=== PATIENT | male | born 1935 | race Caucasian/White ===

== ENCOUNTER → 2017-07-04 16:43 | Outpatient (CLI) | payer MEDICARE, OTHER, SELFPAY ==
--- NOTE | 2017-07-04 16:47 | CT_ITS ---
STUDY: CT LUMBAR SPINE WITHOUT CONTRAST REASON FOR EXAM: Male, 81 years old. Incontinence of urine and stool. RADIATION DOSAGE (If Supplied By Facility): CTDIvol = ( 16.10 ) mGy, DLP = ( 384.53 ) mGycm TECHNIQUE: The patient was scanned in a multi detector CT scanner. High resolution transaxial imaging was performed. Images were obtained from T11-12 to past 2. Sagittal and coronal images were reconstructed. Individualized dose optimization techniques were used for this CT. COMPARISON: CT lumbar spine March 08, 2017. FINDINGS: Again seen is resection of the L4 spinous process as well as laminectomies at L5 and S1. Also again seen is prior left-sided posterior lumbosacral fusion with transpedicular screws connected by a longitudinal metal phoebe. Normal lumbar lordosis. There is a 28 degree levoscoliosis centered at L4-5. Incidental note of stable osseous fusion between the left side of the T12 and L1 vertebrae. No acute fracture of the vertebrae of the lumbar spine. Stable lobulated, thinly corticated, internally septated 2.6 x 3.65 x 2.1 cm cystic lesion in the posterior medial right ilium. There are degenerative arthroses of the bilateral sacroiliac joints L1-2: Circumferential endplate osteophytes, most prominent to the left and posteriorly. Focal invagination of the central superior L2 endplate consistent with benign Schmorl's node(s). Severe disc height narrowing with vacuum phenomenon. Degenerative arthroses of the bilateral facet joints with moderately severe joint space narrowing and anterior periarticular spurring. Moderate osseous narrowing of the central canal and bilateral lateral recesses. [id number] osseous narrowing of the bilateral intervertebral neural foramina, greater on the left. L2-3: Circumferential endplate osteophytes. Severe disc height narrowing with multifocal osseous fusion of the vertebral endplates. There is hypertrophic osseous fusion of the bilateral facet joints. Moderate osseous narrowing of the central canal and bilateral lateral recesses. Mild osseous narrowing of the left intervertebral neural foramen. L3-4: Circumferential endplate osteophytes, most prominent to the right and posteriorly. Severe disc height narrowing with vacuum phenomenon. Degenerative arthroses of the bilateral facet joints with moderately severe joint space narrowing. Hypertrophic periarticular spurring is greater on the right. Moderate osseous narrowing of the central canal and bilateral lateral recesses. Moderate to moderately severe osseous narrowing of the bilateral intervertebral neural foramina. L4-5: Circumferential endplate osteophytes, most prominent to the right and posteriorly. Severe disc height narrowing with vacuum phenomenon. Degenerative arthroses of the bilateral facet joints with moderately severe joint space narrowing. Hypertrophic periarticular spurring is greater on the right, while there is partial osseous fusion on the left. Moderate osseous narrowing of the central canal and bilateral lateral recesses. Moderate osseous narrowing of the bilateral intervertebral neural foramina. L5-S1: Osseous fusion across the vertebral endplates, as well as mild circumferential spurring. Severe degenerative arthrosis of the right facet joint with hypertrophic periarticular spurring. There is osseous fusion of the left facet complex. There is stable grade 1-2 anterolisthesis of L5 on S1. Moderate osseous narrowing of the central canal and bilateral lateral recesses. Moderate osseous narrowing of the bilateral intervertebral neural foramina. Normal visualized paraspinous soft tissue structures. There are atherosclerotic calcifications of the abdominal aorta and iliac arteries. CT/Spine Lumbar without Contrast IMPRESSION: 1. Stable multilevel degenerative changes, as described above. 2. Prior resection of the L4 spinous process as well as L5 and S1 laminectomies. Prior left-sided posterior lumbosacral fusion with metal hardware. There is osseous fusion at L5-S1 with stable grade 1-2 spondylolisthesis. Mid lumbar levoscoliosis also unchanged. 3. Aortoiliac atherosclerotic calcification. Electronically Signed: Abhijit Reid MD at 14:26 EDT , Service support ,
--- NOTE | 2017-07-04 16:47 | CT_ITS ---
STUDY: CT THORACIC SPINE WITHOUT CONTRAST REASON FOR EXAM: Male, 81 years old. Incontinence of urine and stool. RADIATION DOSAGE (If Supplied By Facility): CTDIvol = ( 18.42 ) mGy, DLP = ( 746.98 ) mGycm TECHNIQUE: The patient was scanned in a multi detector CT scanner. High resolution imaging was performed. Images were obtained from C7 to L2. Sagittal and coronal images were reconstructed. Individualized dose optimization techniques were used for this CT. COMPARISON: None. FINDINGS: None visualized cervical spine. There is a mildly increased kyphosis of the thoracic spine. There is a 6-7 degree levoscoliosis centered at T10. There is spotty demineralization of the thoracic vertebrae and endplates. There is multilevel endplate spondylosis of the thoracic spine. There are degenerative changes at various facet articulations of the mid to lower thoracic spine. 1 cm rounded lesion with internal trabeculae and gas lucencies in the left anterior T11 vertebra may be a complex Schmorl's node. Other focal endplate invaginations consistent with benign Schmorl's node seen T6-T10. There is multilevel degenerative disc disease with loss of the disc space heights. There is mild anterior wedging of the T8 vertebra. There is an osseous fusion between the left T12 and L1 vertebra. Incidental note of atherosclerotic calcification and tortuosity of the descending thoracic aorta. CT/Spine Thoracic without Contras IMPRESSION: 1. Diffuse degenerative changes and spotty demineralization of the thoracic spine, as described. 2. Mild anterior wedging of the T8 vertebra has no associated paraspinal soft tissue swelling, suggesting this is old. There is also chronic osseous fusion between the left margins of the T12 and L1 vertebra. Electronically Signed: Abhijit Reid MD at 13:55 EDT , Service support ,
== END ==
PROVIDERS: Family Provider Family Medicine; PCP Family Medicine; Visit Provider Nurse Practitioner Acute Care
DX: R15.9 Full incontinence of feces (principal); R39.81 Functional urinary incontinence
CPT/HCPCS: 72128; 72131

== ENCOUNTER → 2017-08-21 12:55 | Outpatient (CLI) | payer MEDICARE, OTHER, SELFPAY ==
--- NOTE | 2017-08-23 11:39 | LEAS ---
Arterial Study - Arterial Study Arterial Study: Date of scan 08/21/[address] Rose History: Hypertension hyperlipidemia history of stent in the right lower extremity Interpretation: Right lower extremity with some decrease flow at the low thigh further decreased down into the calf ankle and out through the digits ABIs taken that show monophasic flow at the ankle with an RALPH 0.67 of the posterior tibial 0.6 for the dorsalis pedis with the digit brachial index 0.23 next Left lower extremity with again some decreased flow noted from the thigh down to the calf ankle out through the digits duplex shows biphasic flow both vessels at the ankle with an RALPH 0.78 a posterior tib 0.77 the dorsalis pedis. With the digit brachial index 0.48. Impression: 1. Moderate arterial occlusive disease with an RALPH 0.67 and monophasic flow noted. Evidence of small vessel disease with the digit brachial index 0.23 2. Left lower extremity with mild arterial occlusive disease with biphasic flow noted and RALPH 0.78. Mild small vessel disease with the digit brachial index 0.48
== END ==
PROVIDERS: Family Provider Family Medicine; PCP Family Medicine; Visit Provider Surgery Vascular Surgery
DX: I70.213 Atherosclerosis of native arteries of extremities with intermittent claudication, bilateral legs (principal); E78.00 Pure hypercholesterolemia, unspecified; I10 Essential (primary) hypertension; I25.10 Atherosclerotic heart disease of native coronary artery without angina pectoris; M19.90 Unspecified osteoarthritis, unspecified site; Z85.828 Personal history of other malignant neoplasm of skin
CPT/HCPCS: 93923

== ENCOUNTER → 2017-08-31 10:04 | Outpatient (CLI) | payer MEDICARE, OTHER, SELFPAY ==
[2017-08-31 12:08] LABS: Hematocrit 37.2 % (40-54); Hemoglobin 12.4 g/dl (13.0-16.5); Mean Corp Hgb Conc 33.3 g/gl (32-36); Mean Corpuscular Hgb 32.1 pg (27.0-32.0); Mean Corpuscular Volume 96.4 fL (80-94); Mean Platelet Vol. 9.1 fl (6.2-12.0); Platelet Count 328 K/mm3 (150-450); RBC Distribution Width CV 13.9 % (11.6-14.6); RBC Distribution Width SD 47.4 fl (35.1-43.9); Red Blood Count 3.86 M/mm3 (4.6-6.2); White Blood Count 5.9 K/mm3 (4.4-11.0)
[2017-08-31 12:16] LABS: PSA,Total- Diagnostic 0.34 ng/mL (0.0-4.0)
[2017-08-31 12:17] LABS: Scan Indicated on CBC? Y/N NO
[2017-08-31 12:22] LABS: AST(SGOT) 28 U/L (15-37); Alanine Aminotransfer ALT/SGPT 30 U/L (16-61); Albumin, Serum 3.4 g/dL (3.2-5.0); Alkaline Phosphatase 88 U/L (45-117); Anion Gap 7 (5-15); BUN 40 mg/dL (7-18); BUN/Creat Ratio 41.2 RATIO (10-20); Bilirubin, Direct 0.07 mg/dL (0.00-0.30); Calcium,Total 9.3 mg/dL (8.5-10.1); Chloride 100 mmol/L (98-107); Cholesterol 122 mg/dL (200); Creatinine, Serum 0.97 mg/dL (0.70-1.30); EST Glomerular Filtration Rate 79 mL/min (>60); Est Glom Filt Rate - Afr Amer 95 mL/min (>60); Globulin 3.8 g/dL (2.2-4.2); Glucose 84 mg/dL (74-106); High Density Lipoprotein 48 mg/dL; Potassium 3.5 mmol/L (3.5-5.1); Protein, Total 7.2 g/dL (6.4-8.2); Sodium Level 141 mmol/L (136-145); Triglycerides 91 mg/dL; Very Low Density Lipoprotein 18 mg/dL (5-40)
== END ==
PROVIDERS: Internal Medicine Cardiovascular Disease; Family Provider Family Medicine; PCP Family Medicine; Visit Provider Family Medicine
DX: I10 Essential (primary) hypertension (principal); C61 Malignant neoplasm of prostate; E78.00 Pure hypercholesterolemia, unspecified; I25.10 Atherosclerotic heart disease of native coronary artery without angina pectoris
CPT/HCPCS: 36415; 80048; 80061; 80076; 84153; 85027

== ENCOUNTER → 2017-10-06 12:20 | Outpatient (CLI) | payer MEDICARE, OTHER, SELFPAY ==
--- NOTE | 2017-10-06 12:40 | RAD_ITS ---
STUDY: X-RAY - RIGHT FOOT CLINICAL: Male, 82 years old. Heel ulceration. TECHNIQUE: 3 view(s) of the foot. COMPARISON: None. FINDINGS: There is demineralization of the rear and midfoot bones. Normal visualized subtalar, talonavicular, calcaneocuboid, tarsal and tarsometatarsal articulations. There is demineralization of the metatarsi. There is degenerative arthrosis of the metatarsophalangeal joint of the hallux . Normal tibial and fibular sesamoid bones. Normal interphalangeal joint of the great toe. Normal phalanges of the great toe. Normal second through fifth metatarsophalangeal joints. Normal interphalangeal joints and phalanges of the lesser toes. Soft tissue swelling. RAD/Foot min 3 Views IMPRESSION: Diffuse soft tissue swelling. Electronically Signed: Rito Lugo MD at 13:07 EDT Tel [phone], Service support ,
[2017-10-06 13:53] LABS: Erythrocyte Sedimentation Rate 27 mm/hr (0-20)
[2017-10-06 13:55] LABS: Hematocrit 36.8 % (40-54); Hemoglobin 12.1 g/dl (13.0-16.5); Mean Corp Hgb Conc 32.9 g/gl (32-36); Mean Corpuscular Hgb 31.6 pg (27.0-32.0); Mean Corpuscular Volume 96.1 fL (80-94); Mean Platelet Vol. 8.8 fl (6.2-12.0); Platelet Count 317 K/mm3 (150-450); RBC Distribution Width CV 14.6 % (11.6-14.6); Red Blood Count 3.83 M/mm3 (4.6-6.2); White Blood Count 5.2 K/mm3 (4.4-11.0)
[2017-10-06 13:56] LABS: Scan Indicated on CBC? Y/N NO
[2017-10-06 14:19] LABS: AST(SGOT) 29 U/L (15-37); Alanine Aminotransfer ALT/SGPT 29 U/L (16-61); Albumin, Serum 3.7 g/dL (3.2-5.0); Alkaline Phosphatase 78 U/L (45-117); Anion Gap 7 (5-15); BUN 25 mg/dL (7-18); BUN/Creat Ratio 22.9 RATIO (10-20); Calcium,Total 9.1 mg/dL (8.5-10.1); Chloride 98 mmol/L (98-107); Creatinine, Serum 1.09 mg/dL (0.70-1.30); EST Glomerular Filtration Rate 69 mL/min (>60); Est Glom Filt Rate - Afr Amer 83 mL/min (>60); Globulin 3.6 g/dL (2.2-4.2); Glucose 83 mg/dL (74-106); Potassium 3.5 mmol/L (3.5-5.1); Prealbumin 30.9 mg/dL (20.0-40.0); Protein, Total 7.3 g/dL (6.4-8.2); Sodium Level 141 mmol/L (136-145)
== END ==
PROVIDERS: Family Provider Family Medicine; PCP Family Medicine; Visit Provider Nurse Practitioner Family
DX: L97.419 Non-pressure chronic ulcer of right heel and midfoot with unspecified severity (principal); M79.671 Pain in right foot
CPT/HCPCS: 36415; 73630; 80053; 84134; 85027; 85652

== ENCOUNTER 2017-10-12 16:30 | Outpatient (RCR) | payer MEDICARE, OTHER, SELFPAY ==
[2017-10-05 16:47] VITALS: BP 148/88; PULSE 64; RESP 18; TEMP 36.2; BMI 21.0
--- NOTE | 2017-10-05 20:12 | PCM.WC.HP ---
(1) Chronic pain of right heel Status: Acute Code(s): M79.671 - Pain in right foot; G89.29 - Other chronic pain (2) Ulcer of right heel Status: Acute Code(s): L97.419 - Non-pressure chronic ulcer of right heel and midfoot with unspecified severity (3) Atherosclerotic heart disease of [place] coronary artery without angina pectoris Status: Chronic Qualifiers: Code(s): I25.10 - Atherosclerotic heart disease of [place] coronary artery without angina pectoris Comment: PTCA/Stent to mid RCA 08/06/04; cutting balloon angioplasty with TAMERA to mid RCA 02/19; PTCA/Stent of focal instent stenosis of RCA 06/18/09; PCI/TAMERA to Ostial PDA and PTCA/Stent of instent restenosis RCA 09/03/13; PAINTER AIRBRUSH/TAMERA Instent restenosis of mid RCA 10/07/15; FFR mid LAD @ [facility] 10/08/15 (4) GERD (gastroesophageal reflux disease) Status: Chronic Code(s): K21.9 - Gastro-esophageal reflux disease without esophagitis (5) Hyperlipidemia Status: Chronic Qualifiers: Code(s): E78.5 - Hyperlipidemia, unspecified (6) Hypertension Status: Chronic Qualifiers: Code(s): I10 - Essential (primary) hypertension (7) Peripheral vascular disease Status: Chronic Code(s): I73.9 - Peripheral vascular disease, unspecified History of Present Illness Date of Service: 10/05/17 Chief Complaint: Right heel pain on and off ?2 years with increasing pain and ulceration over the past 2 months History of Wound: This is an 82-year-old white male who presents to the wound healing center today with complaints of worsening right heel pain and a superficial ulceration on the right heel with surrounding redness and excoriation. He has a past medical history which is significant for that of PVD, PAD, CAD, hypertension, GERD, and hyperlipidemia. He has in the past undergone angioplasty of the right lower extremity by Dr. Rose. A most recent RALPH was done on 08/23/2017 and demonstrated right RALPH of 0.67 and left RALPH of 0.78. The patient states that he has had ongoing right heel pain for 1-2 years and wears orthotic shoes. He states that his orthotics are approximately 2 years old as well. He states that he has been seen podiatry who referred him to the wound healing center as he now has a superficial ulceration on his right heel with surrounding redness and occasional bleeding. He states that the pain is a intermittent sharp pain. He does state that he has been seen by orthopedics and podiatry in the past and was told that he has a heel spur as well, however it was felt that this was not the root cause of his pain. He denies any purulent drainage in his wound treatments so far have consisted of applying Vaseline daily. The patient otherwise denies any fever, chills, nausea, vomiting, shortness of breath, chest pain or pressure, palpitations, orthopnea, lower extremity edema, syncope or presyncopal episodes. 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 Zapata; Stent to distal RSFA to popliteal, Stent Rt. Proximal SFA 10/23/13 Atherosclerotic heart disease of [place] coronary artery without angina pectoris (Chronic) PTCA/Stent to mid RCA 08/06/04; cutting balloon angioplasty with TAMERA to mid RCA 02/19; PTCA/Stent of focal instent stenosis of RCA 06/18/09; PCI/TAMERA to Ostial PDA and PTCA/Stent of instent restenosis RCA 09/03/13; PAINTER AIRBRUSH/TAMERA Instent restenosis of mid RCA 10/07/15; FFR mid LAD @ [facility] 10/08/15 GERD (gastroesophageal reflux disease) (Chronic) Hypertension (Chronic) Hyperlipidemia (Chronic) Obstructive sleep apnea (Chronic) Peripheral vascular disease (Chronic) Surgical History: -, rotator cuff repair, tonsillectomy, - Allergies/Adverse Reactions: Allergies carisoprodol Allergy (Verified 10/05/17 17:13) Other itraconazole Allergy (Verified 10/05/17 17:13) Other Home Medications: Ambulatory Orders Medication Instructions Recorded Clopidogrel Bisulfate [Plavix] 75 mg PO DAILY 01/14/13 Multivit-Min/FA/Lycopene/Lut 1 tab PO DAILY 01/14/13 [Centrum Silver Tablet] Nitroglycerin [Nitrostat] 0.4 mg SUBLINGUAL Q5M PRN 01/14/13 Omeprazole [Prilosec] 20 mg PO DAILY 10/07/15 Aspirin E.C. [Ecotrin] 81 mg PO DAILY@0800 03/08/17 Furosemide [Furosemide] 40 mg PO DAILY 03/08/17 Naproxen 375 mg PO BID PRN 03/08/17 Vitamin E 400 unit PO DAILY 03/08/17 metoprolol succinate ER 25 mg 12.5 mg PO QDAY #45 tab 06/15/17 tablet,extended release 24 hr atorvastatin 20 mg tablet 20 mg PO QDAY 08/01/17 acetaminophen 500 mg tablet 500 mg PO BID PRN 08/03/17 lisinopril 10 mg tablet 10 mg PO QDAY #90 tab 08/03/17 mirabegron ER 50 mg 50 mg PO QDAY 08/03/17 tablet,extended release 24 hr Ferrous Gluconate 325 10/05/17 Smoking Status: Never smoker Review of Systems Constitutional: Denies: Chills, Fever, Weight Change Eyes: Denies: Pain, Vision Change HEENT: Denies: Difficulty Hearing, Difficulty Swallowing, Sinus Congestion Cardiovascular: Denies: Chest Pain, Palpitations Respiratory: Denies: Cough, Shortness of Breath Gastrointestinal: Denies: Diarrhea, Nausea, Vomiting Genitourinary: Denies: Dysuria, Hematuria Skin: Reports: Wounds - See HPI Endocrine: Denies: Heat/ Cold Intolerance, Polydipsia, Polyuria Hematologic/ Lymphatic: Denies: Easy Bruising, Easy Bleeding - Physical Exam Vital Signs Temp Pulse Resp BP 97.1 F L 64 18 148/88 H 10/05/17 16:47 10/05/17 16:47 10/05/17 16:47 10/05/17 16:47 General: Alert, Oriented x3, Cooperative, No apparent distress HEENT: Atraumatic Neck: Supple Lungs: Clear to auscultation, Normal air movement Cardiovascular: Regular rate, Regular Rhythm Extremities: No clubbing, No cyanosis, Diminished Peripheral Pulses, Edema - Generalized bilateral lower extremity edema Skin: Ulcer/ Wound - Right heel very small superficial ulceration with surrounding excoriation and redness, tender to touch, no purulent drainage noted. No signs of acute infection at this time. Musculoskeletal: No Tenderness to Palpation of Joints or Extremities - With the exception of right heel Neurological: Neuro grossly intact Psych/Mental Status: Normal Affect, Alert and oriented to time, place, person, mood and affect Debridement Note Post-Debridement Measurements/Treatment WC - Nurse 2 - General Ulcer CM Notes Start: 10/05/17 16:42 Freq: Status: Active Protocol: Activity Type Activity Date Activity User E-Sign Co-Sign Detail Recorded Client Recorded Date Recorded By Document 10/05/17 17:36 [id number] 10/05/17 17:53 10/05/17 17:36 Wound Center Nurse 2 #5 R Heel -Time 17:40 -Correct Patient Yes -Correct Side, Site, Position Yes -Correct Procedure Yes -Procedure Performed Yes -Type of Procedure Debridement -Clinical Debridement Subcutaneous -Post Debridement Size (cm) - Length 0.3 -Post Debridement Size (cm) - Width 0.3 -Post Debridement Size (cm) - Depth 0.1 -Total Square Cm 0.09 -Wound/Ulcer Outcome Not Healed -Ulcer Cleansing Rinsed/ Irrigated with Saline -Foul Odor after Cleansing No -Bioengineered Tissue No -Bleeding Controlled with NA -Treatment Response Procedure Tolerated Well Pain Scale: 0-10 Numeric Is Patient Pain Free? Yes Wound debrided: Right heel ulcer Type of Debridement: Excisional debridement Anesthesia Used: 5% Lidocaine Gel Depth: in the subcutaneous layer Percentage of wound debrided: 100 Instrument Used: 3mm curette Tissue Removed: Small amount of slough Severity: Fat Layer Exposed Amount of bleeding with debridement: Mild Bleeding Controlled with: Pressure Patient tolerated procedure well Assessment/Plan Assessment: See above diagnoses Plan: The patient was seen and examined at the wound center today and was updated on the plan of care. A subcutaneous debridement was performed today. The patient tolerated the procedure well. The patients wound care will consist of: Applying Aquacel silver and optifoam daily for offloading. Wound cultures were collected. Due to the increase in pain a x-ray of the right heel was ordered. Vascular studies reviewed from August 2017 and demonstrated right RALPH of 0.67 and left RALPH of 0.78. Patient educated on the importance of offloading and instructed to float the heels when laying in bed. Do not feel that this is pressure related at this time as patient does not have mobility issues. However, patient does wear orthotic inserts and issues and these are over 2 years old, instructed to follow-up with podiatry to consider new orthotic insoles as they are very worn down. Patient educated on the importance of diet on wound healing and instructed to increase protein and vitamin C intake. Patient verbalized understanding. Patient will follow up at wound healing center in one week or sooner if needed. This note was generated with HeadCount dictation software. It may contain incorrect words, spelling, and punctuation that were not noted in checking the note before signing. Code Visit Office Visits / Consults: [id number] OV L4 Est [id number]: [id number] Luz subq tissue 20 sq cm/<
--- NOTE | 2017-10-10 09:23 | HP.PCM_ITS ---
(1) Chronic pain of right heel Status: Acute Code(s): M79.671 - Pain in right foot; G89.29 - Other chronic pain (2) Ulcer of right heel Status: Acute Code(s): L97.419 - Non-pressure chronic ulcer of right heel and midfoot with unspecified severity (3) Atherosclerotic heart disease of [place] coronary artery without angina pectoris Status: Chronic Qualifiers: Code(s): I25.10 - Atherosclerotic heart disease of [place] coronary artery without angina pectoris Comment: PTCA/Stent to mid RCA 08/06/04; cutting balloon angioplasty with TAMERA to mid RCA 02/19; PTCA/Stent of focal instent stenosis of RCA 06/18/09; PCI/TAMERA to Ostial PDA and PTCA/Stent of instent restenosis RCA 09/03/13; [facility]/TAMERA Instent restenosis of mid RCA 10/07/15; FFR mid LAD @ [facility] 10/08/15 (4) GERD (gastroesophageal reflux disease) Status: Chronic Code(s): K21.9 - Gastro-esophageal reflux disease without esophagitis (5) Hyperlipidemia Status: Chronic Qualifiers: Code(s): E78.5 - Hyperlipidemia, unspecified (6) Hypertension Status: Chronic Qualifiers: Code(s): I10 - Essential (primary) hypertension (7) Peripheral vascular disease Status: Chronic Code(s): I73.9 - Peripheral vascular disease, unspecified History of Present Illness Date of Service: 10/05/17 Chief Complaint: Right heel pain on and off ?2 years with increasing pain and ulceration over the past 2 months History of Wound: This is an 82-year-old white male who presents to the wound healing center today with complaints of worsening right heel pain and a superficial ulceration on the right heel with surrounding redness and excoriation. He has a past medical history which is significant for that of PVD , PAD, CAD, hypertension, GERD, and hyperlipidemia. He has in the past undergone angioplasty of the right lower extremity by Dr. Rose. A most recent RALPH was done on 08/23/2017 and demonstrated right RALPH of 0.67 and left RALPH of 0.78. The patient states that he has had ongoing right heel pain for 1-2 years and wears orthotic shoes. He states that his orthotics are approximately 2 years old as well. He states that he has been seen podiatry who referred him to the wound healing center as he now has a superficial ulceration on his right heel with surrounding redness and occasional bleeding. He states that the pain is a intermittent sharp pain. He does state that he has been seen by orthopedics and podiatry in the past and was told that he has a heel spur as well, however it was felt that this was not the root cause of his pain. He denies any purulent drainage in his wound treatments so far have consisted of applying Vaseline daily. The patient otherwise denies any fever, chills, nausea , vomiting, shortness of breath, chest pain or pressure, palpitations, orthopnea , lower extremity edema, syncope or presyncopal episodes. 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 Zapata; Stent to distal RSFA to popliteal, Stent Rt. Proximal SFA 10/23/13 Atherosclerotic heart disease of [place] coronary artery without angina pectoris (Chronic) PTCA/Stent to mid RCA 08/06/04; cutting balloon angioplasty with TAMERA to mid RCA 02/19; PTCA/Stent of focal instent stenosis of RCA 06/18/09; PCI/TAMERA to Ostial PDA and PTCA/Stent of instent restenosis RCA 09/03/13; [facility]TER/TAMERA Instent restenosis of mid RCA 10/07/15; FFR mid LAD @ [facility] 10/08/15 GERD (gastroesophageal reflux disease) (Chronic) Hypertension (Chronic) Hyperlipidemia (Chronic) Obstructive sleep apnea (Chronic) Peripheral vascular disease (Chronic) Surgical History: -, rotator cuff repair, tonsillectomy, - Allergies/Adverse Reactions: Allergies carisoprodol Allergy (Verified 10/05/17 17:13) Other itraconazole Allergy (Verified 10/05/17 17:13) Other Home Medications: Ambulatory Orders Medication Instructions Recorded Clopidogrel Bisulfate [Plavix] 75 mg PO DAILY 01/14/13 Multivit-Min/FA/Lycopene/Lut 1 tab PO DAILY 01/14/13 [Centrum Silver Tablet] Nitroglycerin [Nitrostat] 0.4 mg SUBLINGUAL Q5M PRN 01/14/13 Omeprazole [Prilosec] 20 mg PO DAILY 10/07/15 Aspirin E.C. [Ecotrin] 81 mg PO DAILY@0800 03/08/17 Furosemide [Furosemide] 40 mg PO DAILY 03/08/17 Naproxen 375 mg PO BID PRN 03/08/17 Vitamin E 400 unit PO DAILY 03/08/17 metoprolol succinate ER 25 mg 12.5 mg PO QDAY #45 tab 06/15/17 tablet,extended release 24 hr atorvastatin 20 mg tablet 20 mg PO QDAY 08/01/17 acetaminophen 500 mg tablet 500 mg PO BID PRN 08/03/17 lisinopril 10 mg tablet 10 mg PO QDAY #90 tab 08/03/17 mirabegron ER 50 mg 50 mg PO QDAY 08/03/17 tablet,extended release 24 hr Ferrous Gluconate 325 10/05/17 Smoking Status: Never smoker Review of Systems Constitutional: Denies: Chills, Fever, Weight Change Eyes: Denies: Pain, Vision Change HEENT: Denies: Difficulty Hearing, Difficulty Swallowing, Sinus Congestion Cardiovascular: Denies: Chest Pain, Palpitations Respiratory: Denies: Cough, Shortness of Breath Gastrointestinal: Denies: Diarrhea, Nausea, Vomiting Genitourinary: Denies: Dysuria, Hematuria Skin: Reports: Wounds - See HPI Endocrine: Denies: Heat/ Cold Intolerance, Polydipsia, Polyuria Hematologic/ Lymphatic: Denies: Easy Bruising, Easy Bleeding - Physical Exam Vital Signs Temp Pulse Resp BP 97.1 F L 64 18 148/88 H 10/05/17 16:47 10/05/17 16:47 10/05/17 16:47 10/05/17 16:47 General: Alert, Oriented x3, Cooperative, No apparent distress HEENT: Atraumatic Neck: Supple Lungs: Clear to auscultation, Normal air movement Cardiovascular: Regular rate, Regular Rhythm Extremities: No clubbing, No cyanosis, Diminished Peripheral Pulses, Edema - Generalized bilateral lower extremity edema Skin: Ulcer/ Wound - Right heel very small superficial ulceration with surrounding excoriation and redness, tender to touch, no purulent drainage noted. No signs of acute infection at this time. Musculoskeletal: No Tenderness to Palpation of Joints or Extremities - With the exception of right heel Neurological: Neuro grossly intact Psych/Mental Status: Normal Affect, Alert and oriented to time, place, person, mood and affect Debridement Note Post-Debridement Measurements/Treatment WC - Nurse 2 - General Ulcer CM Notes Start: 10/05/17 16:42 Freq: Status: Active Protocol: Activity Type Activity Date Activity User E-Sign Co-Sign Detail Recorded Client Recorded Date Recorded By Document 10/05/17 17:36 [id number] 10/05/17 17:53 10/05/17 17:36 Wound Center Nurse 2 #5 R Heel -Time 17:40 -Correct Patient Yes -Correct Side, Site, Position Yes -Correct Procedure Yes -Procedure Performed Yes -Type of Procedure Debridement -Clinical Debridement Subcutaneous -Post Debridement Size (cm) - Length 0.3 -Post Debridement Size (cm) - Width 0.3 -Post Debridement Size (cm) - Depth 0.1 -Total Square Cm 0.09 -Wound/Ulcer Outcome Not Healed -Ulcer Cleansing Rinsed/ Irrigated with Saline -Foul Odor after Cleansing No -Bioengineered Tissue No -Bleeding Controlled with NA -Treatment Response Procedure Tolerated Well Pain Scale: 0-10 Numeric Is Patient Pain Free? Yes Wound debrided: Right heel ulcer Type of Debridement: Excisional debridement Anesthesia Used: 5% Lidocaine Gel Depth: in the subcutaneous layer Percentage of wound debrided: 100 Instrument Used: 3mm curette Tissue Removed: Small amount of slough Severity: Fat Layer Exposed Amount of bleeding with debridement: Mild Bleeding Controlled with: Pressure Patient tolerated procedure well Assessment/Plan Assessment: See above diagnoses Plan: The patient was seen and examined at the wound center today and was updated on the plan of care. A subcutaneous debridement was performed today. The patient tolerated the procedure well. The patients wound care will consist of: Applying Aquacel silver and optifoam daily for offloading. Wound cultures were collected. Due to the increase in pain a x-ray of the right heel was ordered. Vascular studies reviewed from August 2017 and demonstrated right RALPH of 0.67 and left ARLPH of 0.78. Patient educated on the importance of offloading and instructed to float the heels when laying in bed. Do not feel that this is pressure related at this time as patient does not have mobility issues. However , patient does wear orthotic inserts and issues and these are over 2 years old, instructed to follow-up with podiatry to consider new orthotic insoles as they are very worn down. Patient educated on the importance of diet on wound healing and instructed to increase protein and vitamin C intake. Patient verbalized understanding. Patient will follow up at wound healing center in one week or sooner if needed. This note was generated with [employer] dictation software. It may contain incorrect words, spelling, and punctuation that were not noted in checking the note before signing. Code Visit Office Visits / Consults: [id number] OV L4 Est 111xxx-113xx: [id number] Luz subq tissue 20 sq cm/<
[2017-10-12 16:44] VITALS: BP 125/70; PULSE 60; RESP 16; TEMP 36.2; BMI 21.0
--- NOTE | 2017-10-12 21:17 | PCM.WC.PN ---
(1) Chronic pain of right heel Status: Acute Code(s): M79.671 - Pain in right foot; G89.29 - Other chronic pain (2) Ulcer of right heel Status: Acute Code(s): L97.419 - Non-pressure chronic ulcer of right heel and midfoot with unspecified severity (3) Atherosclerotic heart disease of [place] coronary artery without angina pectoris Status: Chronic Qualifiers: Code(s): I25.10 - Atherosclerotic heart disease of [place] coronary artery without angina pectoris Comment: PTCA/Stent to mid RCA 08/06/04; cutting balloon angioplasty with TAMERA to mid RCA 02/19; PTCA/Stent of focal instent stenosis of RCA 06/18/09; PCI/TAMERA to Ostial PDA and PTCA/Stent of instent restenosis RCA 09/03/13; 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/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 Instent restenosis of mid RCA 10/07/15; FFR mid LAD @ [facility] 10/08/15 (4) GERD (gastroesophageal reflux disease) Status: Chronic Code(s): K21.9 - Gastro-esophageal reflux disease without esophagitis (5) Hyperlipidemia Status: Chronic Qualifiers: Code(s): E78.5 - Hyperlipidemia, unspecified (6) Hypertension Status: Chronic Qualifiers: Code(s): I10 - Essential (primary) hypertension (7) Peripheral vascular disease Status: Chronic Code(s): I73.9 - Peripheral vascular disease, unspecified Type of Wound Date of Service: 10/12/17 Chief Complaint: Right heel pain on and off ?2 years with increasing pain and ulceration over the past 2 months History of Wound: This is an 82-year-old white male who presents to the wound healing center today with complaints of worsening right heel pain and a superficial ulceration on the right heel with surrounding redness and excoriation. He has a past medical history which is significant for that of PVD, PAD, CAD, hypertension, GERD, and hyperlipidemia. He has in the past undergone angioplasty of the right lower extremity by Dr. Rose. A most recent RALPH was done on 08/23/2017 and demonstrated right RALPH of 0.67 and left RALPH of 0.78. The patient states that he has had ongoing right heel pain for 1-2 years and wears orthotic shoes. He states that his orthotics are approximately 2 years old as well. He states that he has been seen podiatry who referred him to the wound healing center as he now has a superficial ulceration on his right heel with surrounding redness and occasional bleeding. He states that the pain is a intermittent sharp pain. He does state that he has been seen by orthopedics and podiatry in the past and was told that he has a heel spur as well, however it was felt that this was not the root cause of his pain. He denies any purulent drainage in his wound treatments so far have consisted of applying Vaseline daily. The patient otherwise denies any fever, chills, nausea, vomiting, shortness of breath, chest pain or pressure, palpitations, orthopnea, lower extremity edema, syncope or presyncopal episodes. Progress of Wound: Pain has improved, wound culture demonstrated yeast, no signs of acute infection at this time. - Physical Exam Vital Signs Temp Pulse Resp BP 97.1 F L 60 16 125/70 H 10/12/17 16:44 10/12/17 16:44 10/12/17 16:44 10/12/17 16:44 General: Alert, Oriented x3, Cooperative, No apparent distress HEENT: Atraumatic Cardiovascular: Regular rate Skin: Ulcer/ Wound - Small superficial ulcer present right heel without signs of infection at this time, surrounding heel no longer as erythematous as previous and only tenderness over the superficial ulcers Neurological: Neuro grossly intact Psych/Mental Status: Normal Affect, Alert and oriented to time, place, person, mood and affect Debridement Note Post-Debridement Measurements/Treatment WC - Nurse 2 - General Ulcer CM Notes Start: 10/05/17 16:42 Freq: Status: Active Protocol: Activity Type Activity Date Activity User E-Sign Co-Sign Detail Recorded Client Recorded Date Recorded By Document 10/05/17 17:36 [id number] 10/05/17 17:53 CS Document 10/12/17 17:27 JS [id number] 10/12/17 18:30 JS 10/05/17 10/12/17 17:36 17:27 Wound Center Nurse 2 #5 R Heel -Time 17:40 17:46 -Correct Patient Yes Yes -Correct Side, Site, Position Yes Yes -Correct Procedure Yes Yes -Procedure Performed Yes Yes -Type of Procedure Debridement Debridement -Clinical Debridement Subcutaneous Subcutaneous -Post Debridement Size (cm) - Length 0.3 0.4 -Post Debridement Size (cm) - Width 0.3 0.4 -Post Debridement Size (cm) - Depth 0.1 0.2 -Total Square Cm 0.09 0.16 -Wound/Ulcer Outcome Not Healed Not Healed -Ulcer Cleansing Rinsed/ Rinsed/ Irrigated with Irrigated with Saline Saline -Foul Odor after Cleansing No -Bioengineered Tissue No -Topical Lidocaine (%) 4 -Lidocaine (ml) 5 -Bleeding Controlled with NA NA -Treatment Response Procedure Tolerated Well Pain Scale: 0-10 Numeric Is Patient Pain Free? Yes Yes Wound debrided: Right heel ulcer Laterality: Right Type of Debridement: Excisional debridement Anesthesia Used: 5% Lidocaine Gel Depth: in the subcutaneous layer Percentage of wound debrided: 100 Instrument Used: 3mm curette Tissue Removed: Slough Severity: Fat Layer Exposed Amount of bleeding with debridement: Mild Bleeding Controlled with: Pressure Patient tolerated procedure well Assessment/Plan Assessment: See above diagnoses Plan: The patient was seen and examined at the wound center today and was updated on the plan of care. A subcutaneous debridement was performed today. The patient tolerated the procedure well. The patients wound care will consist of: Applying nystatin cream and optifoam daily for offloading. Wound cultures were collected previously and demonstrated yeast, consulted pharmacist who recommended against systemic antifungals and advised on topicals due to the nature of the ulcer. Due to the increase in pain a x-ray of the right heel was ordered which was reviewed and within normal limits. Vascular studies reviewed from August 2017 and demonstrated right RALPH of 0.67 and left RALPH of 0.78. Patient educated on the importance of offloading and instructed to float the heels when laying in bed. Do not feel that this is pressure related at this time as patient does not have mobility issues. However, patient does wear orthotic inserts and issues and these are over 2 years old, instructed to follow-up with podiatry to consider new orthotic insoles as they are very worn down. Patient educated on the importance of diet on wound healing and instructed to increase protein and vitamin C intake. Patient verbalized understanding. Patient will follow up at wound healing center in one week or sooner if needed. This note was generated with [employer] software. It may contain incorrect words, spelling, and punctuation that were not noted in checking the note before signing. Code Visit 111xxx-113xx: [id number] Luz subq tissue 20 sq cm/<
--- NOTE | 2017-10-19 13:20 | PN.PCM_ITS ---
(1) Chronic pain of right heel Status: Acute Code(s): M79.671 - Pain in right foot; G89.29 - Other chronic pain (2) Ulcer of right heel Status: Acute Code(s): L97.419 - Non-pressure chronic ulcer of right heel and midfoot with unspecified severity (3) Atherosclerotic heart disease of [place] coronary artery without angina pectoris Status: Chronic Qualifiers: Code(s): I25.10 - Atherosclerotic heart disease of [place] coronary artery without angina pectoris Comment: PTCA/Stent to mid RCA 08/06/04; cutting balloon angioplasty with TAMERA to mid RCA 02/19; PTCA/Stent of focal instent stenosis of RCA 06/18/09; PCI/TAMERA to Ostial PDA and PTCA/Stent of instent restenosis RCA 09/03/13; [employer] MEMBER/TAMERA Instent restenosis of mid RCA 10/07/15; FFR mid LAD @ [facility] 10/08/15 (4) GERD (gastroesophageal reflux disease) Status: Chronic Code(s): K21.9 - Gastro-esophageal reflux disease without esophagitis (5) Hyperlipidemia Status: Chronic Qualifiers: Code(s): E78.5 - Hyperlipidemia, unspecified (6) Hypertension Status: Chronic Qualifiers: Code(s): I10 - Essential (primary) hypertension (7) Peripheral vascular disease Status: Chronic Code(s): I73.9 - Peripheral vascular disease, unspecified Type of Wound Date of Service: 10/12/17 Chief Complaint: Right heel pain on and off ?2 years with increasing pain and ulceration over the past 2 months History of Wound: This is an 82-year-old white male who presents to the wound healing center today with complaints of worsening right heel pain and a superficial ulceration on the right heel with surrounding redness and excoriation. He has a past medical history which is significant for that of PVD , PAD, CAD, hypertension, GERD, and hyperlipidemia. He has in the past undergone angioplasty of the right lower extremity by Dr. Rose. A most recent RALPH was done on 08/23/2017 and demonstrated right RALPH of 0.67 and left RALPH of 0.78. The patient states that he has had ongoing right heel pain for 1-2 years and wears orthotic shoes. He states that his orthotics are approximately 2 years old as well. He states that he has been seen podiatry who referred him to the wound healing center as he now has a superficial ulceration on his right heel with surrounding redness and occasional bleeding. He states that the pain is a intermittent sharp pain. He does state that he has been seen by orthopedics and podiatry in the past and was told that he has a heel spur as well, however it was felt that this was not the root cause of his pain. He denies any purulent drainage in his wound treatments so far have consisted of applying Vaseline daily. The patient otherwise denies any fever, chills, nausea , vomiting, shortness of breath, chest pain or pressure, palpitations, orthopnea , lower extremity edema, syncope or presyncopal episodes. Progress of Wound: Pain has improved, wound culture demonstrated yeast, no signs of acute infection at this time. - Physical Exam Vital Signs Temp Pulse Resp BP 97.1 F L 60 16 125/70 H 10/12/17 16:44 10/12/17 16:44 10/12/17 16:44 10/12/17 16:44 General: Alert, Oriented x3, Cooperative, No apparent distress HEENT: Atraumatic Cardiovascular: Regular rate Skin: Ulcer/ Wound - Small superficial ulcer present right heel without signs of infection at this time, surrounding heel no longer as erythematous as previous and only tenderness over the superficial ulcers Neurological: Neuro grossly intact Psych/Mental Status: Normal Affect, Alert and oriented to time, place, person, mood and affect Debridement Note Post-Debridement Measurements/Treatment WC - Nurse 2 - General Ulcer CM Notes Start: 10/05/17 16:42 Freq: Status: Active Protocol: Activity Type Activity Date Activity User E-Sign Co-Sign Detail Recorded Client Recorded Date Recorded By Document 10/05/17 17:36 [id number] 10/05/17 17:53 CS Document 10/12/17 17:27 JS [id number] 10/12/17 18:30 JS 10/05/17 10/12/17 17:36 17:27 Wound Center Nurse 2 #5 R Heel -Time 17:40 17:46 -Correct Patient Yes Yes -Correct Side, Site, Position Yes Yes -Correct Procedure Yes Yes -Procedure Performed Yes Yes -Type of Procedure Debridement Debridement -Clinical Debridement Subcutaneous Subcutaneous -Post Debridement Size (cm) - Length 0.3 0.4 -Post Debridement Size (cm) - Width 0.3 0.4 -Post Debridement Size (cm) - Depth 0.1 0.2 -Total Square Cm 0.09 0.16 -Wound/Ulcer Outcome Not Healed Not Healed -Ulcer Cleansing Rinsed/ Rinsed/ Irrigated with Irrigated with Saline Saline -Foul Odor after Cleansing No -Bioengineered Tissue No -Topical Lidocaine (%) 4 -Lidocaine (ml) 5 -Bleeding Controlled with NA NA -Treatment Response Procedure Tolerated Well Pain Scale: 0-10 Numeric Is Patient Pain Free? Yes Yes Wound debrided: Right heel ulcer Laterality: Right Type of Debridement: Excisional debridement Anesthesia Used: 5% Lidocaine Gel Depth: in the subcutaneous layer Percentage of wound debrided: 100 Instrument Used: 3mm curette Tissue Removed: Slough Severity: Fat Layer Exposed Amount of bleeding with debridement: Mild Bleeding Controlled with: Pressure Patient tolerated procedure well Assessment/Plan Assessment: See above diagnoses Plan: The patient was seen and examined at the wound center today and was updated on the plan of care. A subcutaneous debridement was performed today. The patient tolerated the procedure well. The patients wound care will consist of: Applying nystatin cream and optifoam daily for offloading. Wound cultures were collected previously and demonstrated yeast, consulted pharmacist who recommended against systemic antifungals and advised on topicals due to the nature of the ulcer. Due to the increase in pain a x-ray of the right heel was ordered which was reviewed and within normal limits. Vascular studies reviewed from August 2017 and demonstrated right RALPH of 0.67 and left RALPH of 0.78. Patient educated on the importance of offloading and instructed to float the heels when laying in bed. Do not feel that this is pressure related at this time as patient does not have mobility issues. However, patient does wear orthotic inserts and issues and these are over 2 years old, instructed to follow-up with podiatry to consider new orthotic insoles as they are very worn down. Patient educated on the importance of diet on wound healing and instructed to increase protein and vitamin C intake. Patient verbalized understanding. Patient will follow up at wound healing center in one week or sooner if needed. This note was generated with [employer] software. It may contain incorrect words, spelling, and punctuation that were not noted in checking the note before signing. Code Visit 111xxx-113xx: [id number] Luz subq tissue 20 sq cm/<
== END 2017-10-14 23:59 ==
LOC: WC 16:30
PROVIDERS: Family Provider Family Medicine; PCP Family Medicine; Visit Provider Nurse Practitioner Family
DX: I73.9 Peripheral vascular disease, unspecified (principal); I10 Essential (primary) hypertension; E78.5 Hyperlipidemia, unspecified; I25.10 Atherosclerotic heart disease of native coronary artery without angina pectoris; K21.9 Gastro-esophageal reflux disease without esophagitis; L97.412 Non-pressure chronic ulcer of right heel and midfoot with fat layer exposed
CPT/HCPCS: 11042; 87070; 87075; 87077; 87205; 99213; G0463

== ENCOUNTER 2017-11-09 16:30 | Outpatient (RCR) | payer MEDICARE, OTHER, SELFPAY ==
[2017-10-15 01:15] VITALS: BP 125/70; PULSE 60; RESP 16; TEMP 36.2
[2017-10-19 16:43] VITALS: BP 110/62; PULSE 70; RESP 16; TEMP 35.9
--- NOTE | 2017-10-24 11:29 | PCM.WC.PN ---
(1) Ulcer of right heel Status: Acute Code(s): L97.419 - Non-pressure chronic ulcer of right heel and midfoot with unspecified severity (2) Chronic pain of right heel Status: Acute Code(s): M79.671 - Pain in right foot; G89.29 - Other chronic pain (3) Hyperlipidemia Status: Chronic Qualifiers: Code(s): E78.5 - Hyperlipidemia, unspecified (4) Hypertension Status: Chronic Qualifiers: Code(s): I10 - Essential (primary) hypertension (5) Peripheral vascular disease Status: Chronic Code(s): I73.9 - Peripheral vascular disease, unspecified (6) Yeast dermatitis Status: Acute Code(s): B37.2 - Candidiasis of skin and nail Type of Wound Date of Service: 10/19/17 Chief Complaint: Right heel pain on and off ?2 years with increasing pain and ulceration over the past 2 months History of Wound: This is an 82-year-old white male who presents to the wound healing center today with complaints of worsening right heel pain and a superficial ulceration on the right heel with surrounding redness and excoriation. He has a past medical history which is significant for that of PVD, PAD, CAD, hypertension, GERD, and hyperlipidemia. He has in the past undergone angioplasty of the right lower extremity by Dr. Rose. A most recent RALPH was done on 08/23/2017 and demonstrated right RALPH of 0.67 and left RALPH of 0.78. The patient states that he has had ongoing right heel pain for 1-2 years and wears orthotic shoes. He states that his orthotics are approximately 2 years old as well. He states that he has been seen podiatry who referred him to the wound healing center as he now has a superficial ulceration on his right heel with surrounding redness and occasional bleeding. He states that the pain is a intermittent sharp pain. He does state that he has been seen by orthopedics and podiatry in the past and was told that he has a heel spur as well, however it was felt that this was not the root cause of his pain. He denies any purulent drainage in his wound treatments so far have consisted of applying Vaseline daily. The patient otherwise denies any fever, chills, nausea, vomiting, shortness of breath, chest pain or pressure, palpitations, orthopnea, lower extremity edema, syncope or presyncopal episodes. Progress of Wound: stable, improvment in pain surround ulcer, currently only has pain at site of ulcer or right heel. No signs of systemic infection - Physical Exam Vital Signs Temp Pulse Resp BP 96.6 F L 70 16 110/62 10/19/17 16:43 10/19/17 16:43 10/19/17 16:43 10/19/17 16:43 General: Alert, Oriented x3, Cooperative, No apparent distress HEENT: Atraumatic Cardiovascular: Regular rate Extremities: Edema - generalized BLLE edema Skin: Ulcer/ Wound - small luperficial ulcer with adherent wayne right heel, skin surrounding heel is no longer red Neurological: Neuro grossly intact Psych/Mental Status: Normal Affect, Appropriate, Alert and oriented to time, place, person, mood and affect Debridement Note Post-Debridement Measurements/Treatment WC - Nurse 2 - General Ulcer CM Notes Start: 10/19/17 16:42 Freq: Status: Active Protocol: Activity Type Activity Date Activity User E-Sign Co-Sign Detail Recorded Client Recorded Date Recorded By Document 10/19/17 17:01 [id number] 10/19/17 17:04 10/19/17 17:01 Wound Center Nurse 2 #5 R Heel -Time 17:01 -Correct Patient Yes -Correct Side, Site, Position Yes -Correct Procedure Yes -Procedure Performed Yes -Type of Procedure Debridement -Clinical Debridement Subcutaneous -Post Debridement Size (cm) - Length 0.4 -Post Debridement Size (cm) - Width 0.4 -Post Debridement Size (cm) - Depth 0.1 -Total Square Cm 0.16 -Wound/Ulcer Outcome Not Healed -Ulcer Cleansing Rinsed/ Irrigated with Saline -Foul Odor after Cleansing No -Bioengineered Tissue No -Topical Lidocaine (%) 4 -Bleeding Controlled with Pressure -Treatment Response Procedure Tolerated Well Pain Scale: 0-10 Numeric Is Patient Pain Free? Yes Wound debrided: right heel ulcer Laterality: Right Type of Debridement: Excisional debridement Anesthesia Used: 5% Lidocaine Gel Depth: in the subcutaneous layer Percentage of wound debrided: 100 Instrument Used: 3mm curette Tissue Removed: slough and devitalized tissue Severity: Fat Layer Exposed Amount of bleeding with debridement: Mild Bleeding Controlled with: Pressure Patient tolerated procedure well Assessment/Plan Assessment: See above diagnoses Plan: The patient was seen and examined at the wound center today and was updated on the plan of care. A subcutaneous debridement was performed today. The patient tolerated the procedure well. The patients wound care will consist of: Applying Aquacel silver and optifoam daily for offloading and alternating with nystatin cream for yeast that grew on culture. Wound cultures were collected previously and showed yeast. xray ordered previously and WNL. Vascular studies reviewed from August 2017 and demonstrated right RALPH of 0.67 and left RALPH of 0.78. Patient educated on the importance of offloading and instructed to float the heels when laying in bed. Do not feel that this is pressure related at this time as patient does not have mobility issues. However, patient does wear orthotic inserts and issues and these are over 2 years old, instructed to follow-up with podiatry to consider new orthotic insoles as they are very worn down. Patient educated on the importance of diet on wound healing and instructed to increase protein and vitamin C intake. Patient verbalized understanding. Patient will follow up at wound healing center in one week or sooner if needed. This note was generated with [employer] dictation software. It may contain incorrect words, spelling, and punctuation that were not noted in checking the note before signing. Code Visit 111xxx-113xx: 44303 Luz subq tissue 20 sq cm/<
--- NOTE | 2017-10-24 11:34 | PN.PCM_ITS ---
(1) Ulcer of right heel Status: Acute Code(s): L97.419 - Non-pressure chronic ulcer of right heel and midfoot with unspecified severity (2) Chronic pain of right heel Status: Acute Code(s): M79.671 - Pain in right foot; G89.29 - Other chronic pain (3) Hyperlipidemia Status: Chronic Qualifiers: Code(s): E78.5 - Hyperlipidemia, unspecified (4) Hypertension Status: Chronic Qualifiers: Code(s): I10 - Essential (primary) hypertension (5) Peripheral vascular disease Status: Chronic Code(s): I73.9 - Peripheral vascular disease, unspecified (6) Yeast dermatitis Status: Acute Code(s): B37.2 - Candidiasis of skin and nail Type of Wound Date of Service: 10/19/17 Chief Complaint: Right heel pain on and off ?2 years with increasing pain and ulceration over the past 2 months History of Wound: This is an 82-year-old white male who presents to the wound healing center today with complaints of worsening right heel pain and a superficial ulceration on the right heel with surrounding redness and excoriation. He has a past medical history which is significant for that of PVD , PAD, CAD, hypertension, GERD, and hyperlipidemia. He has in the past undergone angioplasty of the right lower extremity by Dr. Rose. A most recent RALPH was done on 08/23/2017 and demonstrated right RALPH of 0.67 and left RALPH of 0.78. The patient states that he has had ongoing right heel pain for 1-2 years and wears orthotic shoes. He states that his orthotics are approximately 2 years old as well. He states that he has been seen podiatry who referred him to the wound healing center as he now has a superficial ulceration on his right heel with surrounding redness and occasional bleeding. He states that the pain is a intermittent sharp pain. He does state that he has been seen by orthopedics and podiatry in the past and was told that he has a heel spur as well, however it was felt that this was not the root cause of his pain. He denies any purulent drainage in his wound treatments so far have consisted of applying Vaseline daily. The patient otherwise denies any fever, chills, nausea , vomiting, shortness of breath, chest pain or pressure, palpitations, orthopnea , lower extremity edema, syncope or presyncopal episodes. Progress of Wound: stable, improvment in pain surround ulcer, currently only has pain at site of ulcer or right heel. No signs of systemic infection - Physical Exam Vital Signs Temp Pulse Resp BP 96.6 F L 70 16 110/62 10/19/17 16:43 10/19/17 16:43 10/19/17 16:43 10/19/17 16:43 General: Alert, Oriented x3, Cooperative, No apparent distress HEENT: Atraumatic Cardiovascular: Regular rate Extremities: Edema - generalized BLLE edema Skin: Ulcer/ Wound - small luperficial ulcer with adherent wayne right heel, skin surrounding heel is no longer red Neurological: Neuro grossly intact Psych/Mental Status: Normal Affect, Appropriate, Alert and oriented to time, place, person, mood and affect Debridement Note Post-Debridement Measurements/Treatment WC - Nurse 2 - General Ulcer CM Notes Start: 10/19/17 16:42 Freq: Status: Active Protocol: Activity Type Activity Date Activity User E-Sign Co-Sign Detail Recorded Client Recorded Date Recorded By Document 10/19/17 17:01 [id number] 10/19/17 17:04 10/19/17 17:01 Wound Center Nurse 2 #5 R Heel -Time 17:01 -Correct Patient Yes -Correct Side, Site, Position Yes -Correct Procedure Yes -Procedure Performed Yes -Type of Procedure Debridement -Clinical Debridement Subcutaneous -Post Debridement Size (cm) - Length 0.4 -Post Debridement Size (cm) - Width 0.4 -Post Debridement Size (cm) - Depth 0.1 -Total Square Cm 0.16 -Wound/Ulcer Outcome Not Healed -Ulcer Cleansing Rinsed/ Irrigated with Saline -Foul Odor after Cleansing No -Bioengineered Tissue No -Topical Lidocaine (%) 4 -Bleeding Controlled with Pressure -Treatment Response Procedure Tolerated Well Pain Scale: 0-10 Numeric Is Patient Pain Free? Yes Wound debrided: right heel ulcer Laterality: Right Type of Debridement: Excisional debridement Anesthesia Used: 5% Lidocaine Gel Depth: in the subcutaneous layer Percentage of wound debrided: 100 Instrument Used: 3mm curette Tissue Removed: slough and devitalized tissue Severity: Fat Layer Exposed Amount of bleeding with debridement: Mild Bleeding Controlled with: Pressure Patient tolerated procedure well Assessment/Plan Assessment: See above diagnoses Plan: The patient was seen and examined at the wound center today and was updated on the plan of care. A subcutaneous debridement was performed today. The patient tolerated the procedure well. The patients wound care will consist of: Applying Aquacel silver and optifoam daily for offloading and alternating with nystatin cream for yeast that grew on culture. Wound cultures were collected previously and showed yeast. xray ordered previously and WNL. Vascular studies reviewed from August 2017 and demonstrated right RALPH of 0.67 and left RALPH of 0.78. Patient educated on the importance of offloading and instructed to float the heels when laying in bed. Do not feel that this is pressure related at this time as patient does not have mobility issues. However , patient does wear orthotic inserts and issues and these are over 2 years old, instructed to follow-up with podiatry to consider new orthotic insoles as they are very worn down. Patient educated on the importance of diet on wound healing and instructed to increase protein and vitamin C intake. Patient verbalized understanding. Patient will follow up at wound healing center in one week or sooner if needed. This note was generated with [email or web address] dictation software. It may contain incorrect words, spelling, and punctuation that were not noted in checking the note before signing. Code Visit 111xxx-113xx: 30448 Luz subq tissue 20 sq cm/<
--- NOTE | 2017-10-26 16:51 | PCM.WC.PN ---
(1) Ulcer of right heel Status: Acute Code(s): L97.419 - Non-pressure chronic ulcer of right heel and midfoot with unspecified severity (2) Chronic pain of right heel Status: Acute Code(s): M79.671 - Pain in right foot; G89.29 - Other chronic pain (3) Hyperlipidemia Status: Chronic Qualifiers: Code(s): E78.5 - Hyperlipidemia, unspecified (4) Hypertension Status: Chronic Qualifiers: Code(s): I10 - Essential (primary) hypertension (5) Peripheral vascular disease Status: Chronic Code(s): I73.9 - Peripheral vascular disease, unspecified (6) Yeast dermatitis Status: Acute Code(s): B37.2 - Candidiasis of skin and nail Type of Wound Date of Service: 10/26/17 Chief Complaint: Right heel pain on and off ?2 years with increasing pain and ulceration over the past 2 months History of Wound: This is an 82-year-old white male who presents to the wound healing center today with complaints of worsening right heel pain and a superficial ulceration on the right heel with surrounding redness and excoriation. He has a past medical history which is significant for that of PVD, PAD, CAD, hypertension, GERD, and hyperlipidemia. He has in the past undergone angioplasty of the right lower extremity by Dr. Rose. A most recent RALPH was done on 08/23/2017 and demonstrated right RALPH of 0.67 and left RALPH of 0.78. The patient states that he has had ongoing right heel pain for 1-2 years and wears orthotic shoes. He states that his orthotics are approximately 2 years old as well. He states that he has been seen podiatry who referred him to the wound healing center as he now has a superficial ulceration on his right heel with surrounding redness and occasional bleeding. He states that the pain is a intermittent sharp pain. He does state that he has been seen by orthopedics and podiatry in the past and was told that he has a heel spur as well, however it was felt that this was not the root cause of his pain. He denies any purulent drainage in his wound treatments so far have consisted of applying Vaseline daily. The patient otherwise denies any fever, chills, nausea, vomiting, shortness of breath, chest pain or pressure, palpitations, orthopnea, lower extremity edema, syncope or presyncopal episodes. Progress of Wound: stable, no pain surrounding ulcer, currently only has pain at site of ulcer or right heel. No signs of systemic infection, recently saw podiatry and had orthotics altered to offload pressure on the heel. - Physical Exam Vital Signs Temp Pulse Resp BP 98.1 F 90 18 107/64 10/26/17 17:05 10/26/17 17:05 10/26/17 17:05 10/26/17 17:05 General: Alert, Oriented x3, Cooperative, No apparent distress HEENT: Atraumatic Cardiovascular: Regular rate Skin: Ulcer/ Wound - ulcer present right heel with slough, surrounding erythema resolved Neurological: Cranial nerves II-XII grossly intact, Neuro grossly intact Psych/Mental Status: Normal Affect, Appropriate, Alert and oriented to time, place, person, mood and affect Debridement Note Post-Debridement Measurements/Treatment WC - Nurse 2 - General Ulcer CM Notes Start: 10/19/17 16:42 Freq: Status: Active Protocol: Activity Type Activity Date Activity User E-Sign Co-Sign Detail Recorded Client Recorded Date Recorded By Document 10/19/17 17:01 TM [id number] 10/19/17 17:04 TM Document 10/26/17 17:25 TM [id number] 10/26/17 17:27 TM 10/19/17 10/26/17 17:01 17:25 Wound Center Nurse 2 #5 R Heel -Time 17:01 17:26 -Correct Patient Yes Yes -Correct Side, Site, Position Yes Yes -Correct Procedure Yes Yes -Procedure Performed Yes Yes -Type of Procedure Debridement Debridement -Clinical Debridement Subcutaneous Subcutaneous -Post Debridement Size (cm) - Length 0.4 0.3 -Post Debridement Size (cm) - Width 0.4 0.2 -Post Debridement Size (cm) - Depth 0.1 0.1 -Total Square Cm 0.16 0.06 -Wound/Ulcer Outcome Not Healed Not Healed -Ulcer Cleansing Rinsed/ Rinsed/ Irrigated with Irrigated with Saline Saline -Foul Odor after Cleansing No No -Bioengineered Tissue No No -Topical Lidocaine (%) 4 4 -Bleeding Controlled with Pressure Pressure -Treatment Response Procedure Procedure Tolerated Well Tolerated Well Pain Scale: 0-10 Numeric Is Patient Pain Free? Yes Yes Wound debrided: right heel ulcer Laterality: Right Type of Debridement: Excisional debridement Anesthesia Used: 5% Lidocaine Gel Depth: in the subcutaneous layer Percentage of wound debrided: 100 Instrument Used: 3mm curette Tissue Removed: slough and devitalized tissue Severity: Fat Layer Exposed Amount of bleeding with debridement: Mild Bleeding Controlled with: Pressure Patient tolerated procedure well Assessment/Plan Assessment: See above diagnoses Plan: The patient was seen and examined at the wound center today and was updated on the plan of care. A subcutaneous debridement was performed today. The patient tolerated the procedure well. The patients wound care will consist of: Applying Aquacel silver and optifoam daily for offloading and alternating with nystatin cream for yeast that grew on culture. Wound cultures were collected previously and showed yeast. xray ordered previously and WNL. Vascular studies reviewed from August 2017 and demonstrated right RALPH of 0.67 and left RALPH of 0.78. Patient educated on the importance of offloading and instructed to float the heels when laying in bed. Do not feel that this is pressure related at this time as patient does not have mobility issues. However, patient does wear orthotic inserts and issues and these are over 2 years old, instructed to follow-up with podiatry to consider new orthotic insoles as they are very worn down. Patient educated on the importance of diet on wound healing and instructed to increase protein and vitamin C intake. Patient verbalized understanding. Patient will follow up at wound healing center in one week or sooner if needed. This note was generated with [employer] software. It may contain incorrect words, spelling, and punctuation that were not noted in checking the note before signing. Code Visit 111xxx-113xx: 20710 Luz subq tissue 20 sq cm/<
[2017-10-26 17:05] VITALS: BP 107/64; PULSE 90; RESP 18; TEMP 36.7
--- NOTE | 2017-10-31 16:55 | PN.PCM_ITS ---
(1) Ulcer of right heel Status: Acute Code(s): L97.419 - Non-pressure chronic ulcer of right heel and midfoot with unspecified severity (2) Chronic pain of right heel Status: Acute Code(s): M79.671 - Pain in right foot; G89.29 - Other chronic pain (3) Hyperlipidemia Status: Chronic Qualifiers: Code(s): E78.5 - Hyperlipidemia, unspecified (4) Hypertension Status: Chronic Qualifiers: Code(s): I10 - Essential (primary) hypertension (5) Peripheral vascular disease Status: Chronic Code(s): I73.9 - Peripheral vascular disease, unspecified (6) Yeast dermatitis Status: Acute Code(s): B37.2 - Candidiasis of skin and nail Type of Wound Date of Service: 10/26/17 Chief Complaint: Right heel pain on and off ?2 years with increasing pain and ulceration over the past 2 months History of Wound: This is an 82-year-old white male who presents to the wound healing center today with complaints of worsening right heel pain and a superficial ulceration on the right heel with surrounding redness and excoriation. He has a past medical history which is significant for that of PVD , PAD, CAD, hypertension, GERD, and hyperlipidemia. He has in the past undergone angioplasty of the right lower extremity by Dr. Rose. A most recent RALPH was done on 08/23/2017 and demonstrated right RALPH of 0.67 and left RALPH of 0.78. The patient states that he has had ongoing right heel pain for 1-2 years and wears orthotic shoes. He states that his orthotics are approximately 2 years old as well. He states that he has been seen podiatry who referred him to the wound healing center as he now has a superficial ulceration on his right heel with surrounding redness and occasional bleeding. He states that the pain is a intermittent sharp pain. He does state that he has been seen by orthopedics and podiatry in the past and was told that he has a heel spur as well, however it was felt that this was not the root cause of his pain. He denies any purulent drainage in his wound treatments so far have consisted of applying Vaseline daily. The patient otherwise denies any fever, chills, nausea , vomiting, shortness of breath, chest pain or pressure, palpitations, orthopnea , lower extremity edema, syncope or presyncopal episodes. Progress of Wound: stable, no pain surrounding ulcer, currently only has pain at site of ulcer or right heel. No signs of systemic infection, recently saw podiatry and had orthotics altered to offload pressure on the heel. - Physical Exam Vital Signs Temp Pulse Resp BP 98.1 F 90 18 107/64 10/26/17 17:05 10/26/17 17:05 10/26/17 17:05 10/26/17 17:05 General: Alert, Oriented x3, Cooperative, No apparent distress HEENT: Atraumatic Cardiovascular: Regular rate Skin: Ulcer/ Wound - ulcer present right heel with slough, surrounding erythema resolved Neurological: Cranial nerves II-XII grossly intact, Neuro grossly intact Psych/Mental Status: Normal Affect, Appropriate, Alert and oriented to time, place, person, mood and affect Debridement Note Post-Debridement Measurements/Treatment WC - Nurse 2 - General Ulcer CM Notes Start: 10/19/17 16:42 Freq: Status: Active Protocol: Activity Type Activity Date Activity User E-Sign Co-Sign Detail Recorded Client Recorded Date Recorded By Document 10/19/17 17:01 TM [id number] 10/19/17 17:04 TM Document 10/26/17 17:25 TM [id number] 10/26/17 17:27 TM 10/19/17 10/26/17 17:01 17:25 Wound Center Nurse 2 #5 R Heel -Time 17:01 17:26 -Correct Patient Yes Yes -Correct Side, Site, Position Yes Yes -Correct Procedure Yes Yes -Procedure Performed Yes Yes -Type of Procedure Debridement Debridement -Clinical Debridement Subcutaneous Subcutaneous -Post Debridement Size (cm) - Length 0.4 0.3 -Post Debridement Size (cm) - Width 0.4 0.2 -Post Debridement Size (cm) - Depth 0.1 0.1 -Total Square Cm 0.16 0.06 -Wound/Ulcer Outcome Not Healed Not Healed -Ulcer Cleansing Rinsed/ Rinsed/ Irrigated with Irrigated with Saline Saline -Foul Odor after Cleansing No No -Bioengineered Tissue No No -Topical Lidocaine (%) 4 4 -Bleeding Controlled with Pressure Pressure -Treatment Response Procedure Procedure Tolerated Well Tolerated Well Pain Scale: 0-10 Numeric Is Patient Pain Free? Yes Yes Wound debrided: right heel ulcer Laterality: Right Type of Debridement: Excisional debridement Anesthesia Used: 5% Lidocaine Gel Depth: in the subcutaneous layer Percentage of wound debrided: 100 Instrument Used: 3mm curette Tissue Removed: slough and devitalized tissue Severity: Fat Layer Exposed Amount of bleeding with debridement: Mild Bleeding Controlled with: Pressure Patient tolerated procedure well Assessment/Plan Assessment: See above diagnoses Plan: The patient was seen and examined at the wound center today and was updated on the plan of care. A subcutaneous debridement was performed today. The patient tolerated the procedure well. The patients wound care will consist of: Applying Aquacel silver and optifoam daily for offloading and alternating with nystatin cream for yeast that grew on culture. Wound cultures were collected previously and showed yeast. xray ordered previously and WNL. Vascular studies reviewed from August 2017 and demonstrated right RALPH of 0.67 and left RALPH of 0.78. Patient educated on the importance of offloading and instructed to float the heels when laying in bed. Do not feel that this is pressure related at this time as patient does not have mobility issues. However , patient does wear orthotic inserts and issues and these are over 2 years old, instructed to follow-up with podiatry to consider new orthotic insoles as they are very worn down. Patient educated on the importance of diet on wound healing and instructed to increase protein and vitamin C intake. Patient verbalized understanding. Patient will follow up at wound healing center in one week or sooner if needed. This note was generated with [employer] software. It may contain incorrect words, spelling, and punctuation that were not noted in checking the note before signing. Code Visit 111xxx-113xx: 62165 Luz subq tissue 20 sq cm/<
[2017-11-02 16:47] VITALS: BP 107/56; PULSE 77; RESP 16; TEMP 36.5
--- NOTE | 2017-11-02 20:58 | PCM.WC.PN ---
(1) Ulcer of right heel Status: Acute Code(s): L97.419 - Non-pressure chronic ulcer of right heel and midfoot with unspecified severity (2) Chronic pain of right heel Status: Acute Code(s): M79.671 - Pain in right foot; G89.29 - Other chronic pain (3) Hyperlipidemia Status: Chronic Qualifiers: Code(s): E78.5 - Hyperlipidemia, unspecified (4) Hypertension Status: Chronic Qualifiers: Code(s): I10 - Essential (primary) hypertension (5) Peripheral vascular disease Status: Chronic Code(s): I73.9 - Peripheral vascular disease, unspecified (6) Yeast dermatitis Status: Acute Code(s): B37.2 - Candidiasis of skin and nail Type of Wound Date of Service: 11/02/17 Chief Complaint: Right heel pain on and off ?2 years with increasing pain and ulceration over the past 2 months History of Wound: This is an 82-year-old white male who presents to the wound healing center today with complaints of worsening right heel pain and a superficial ulceration on the right heel with surrounding redness and excoriation. He has a past medical history which is significant for that of PVD, PAD, CAD, hypertension, GERD, and hyperlipidemia. He has in the past undergone angioplasty of the right lower extremity by Dr. Rose. A most recent RALPH was done on 08/23/2017 and demonstrated right RALPH of 0.67 and left RALPH of 0.78. The patient states that he has had ongoing right heel pain for 1-2 years and wears orthotic shoes. He states that his orthotics are approximately 2 years old as well. He states that he has been seen podiatry who referred him to the wound healing center as he now has a superficial ulceration on his right heel with surrounding redness and occasional bleeding. He states that the pain is a intermittent sharp pain. He does state that he has been seen by orthopedics and podiatry in the past and was told that he has a heel spur as well, however it was felt that this was not the root cause of his pain. He denies any purulent drainage in his wound treatments so far have consisted of applying Vaseline daily. The patient otherwise denies any fever, chills, nausea, vomiting, shortness of breath, chest pain or pressure, palpitations, orthopnea, lower extremity edema, syncope or presyncopal episodes. Progress of Wound: improved dramatically in size, no pain surrounding ulcer, currently only has pain at site of ulcer or right heel. No signs of systemic infection, recently saw podiatry and had orthotics altered to offload pressure on the heel. Minimal redness - Physical Exam Vital Signs Temp Pulse Resp BP 97.7 F L 77 16 107/56 L 11/02/17 16:47 11/02/17 16:47 11/02/17 16:47 11/02/17 16:47 General: Alert, Oriented x3, Cooperative, No apparent distress HEENT: Atraumatic Cardiovascular: Regular rate Skin: Ulcer/ Wound - very small ulcer present right plantar heel with adherant slough Neurological: Neuro grossly intact Psych/Mental Status: Normal Affect, Appropriate, Alert and oriented to time, place, person, mood and affect Debridement Note Post-Debridement Measurements/Treatment WC - Nurse 2 - General Ulcer CM Notes Start: 10/19/17 16:42 Freq: Status: Active Protocol: Activity Type Activity Date Activity User E-Sign Co-Sign Detail Recorded Client Recorded Date Recorded By Document 10/19/17 17:01 [id number] 10/19/17 17:04 TM Document 10/26/17 17:25 [id number] 10/26/17 17:27 TM Document 11/02/17 16:59 [id number] 11/02/17 17:00 10/19/17 10/26/17 11/02/17 17:01 17:25 16:59 Wound Center Nurse 2 #5 R Heel -Time 17:01 17:26 16:59 -Correct Patient Yes Yes Yes -Correct Side, Site, Position Yes Yes Yes -Correct Procedure Yes Yes Yes -Procedure Performed Yes Yes Yes -Type of Procedure Debridement Debridement Debridement -Clinical Debridement Subcutaneous Subcutaneous Subcutaneous -Post Debridement Size (cm) - Length 0.4 0.3 0.1 -Post Debridement Size (cm) - Width 0.4 0.2 0.1 -Post Debridement Size (cm) - Depth 0.1 0.1 0.1 -Total Square Cm 0.16 0.06 0.01 -Wound/Ulcer Outcome Not Healed Not Healed Not Healed -Ulcer Cleansing Rinsed/ Rinsed/ Rinsed/ Irrigated with Irrigated with Irrigated with Saline Saline Saline -Foul Odor after Cleansing No No No -Bioengineered Tissue No No No -Topical Lidocaine (%) 4 4 4 -Lidocaine (ml) 5 -Bleeding Controlled with Pressure Pressure NA -Treatment Response Procedure Procedure Procedure Tolerated Well Tolerated Well Tolerated Well Pain Scale: 0-10 Numeric Is Patient Pain Free? Yes Yes Yes Wound debrided: right heel ulcer Laterality: Right Type of Debridement: Excisional debridement Anesthesia Used: 5% Lidocaine Gel Depth: in the subcutaneous layer Percentage of wound debrided: 100 Instrument Used: 3mm curette Tissue Removed: slough and devitalized tissue Severity: Fat Layer Exposed Amount of bleeding with debridement: None Bleeding Controlled with: Pressure Patient tolerated procedure well Assessment/Plan Assessment: See above diagnoses Plan: The patient was seen and examined at the wound center today and was updated on the plan of care. A subcutaneous debridement was performed today. The patient tolerated the procedure well. The patients wound care will consist of: Applying Aquacel silver and optifoam daily for offloading and alternating with nystatin cream for yeast that grew on culture. Wound cultures were collected previously and showed yeast. xray ordered previously and WNL. Vascular studies reviewed from August 2017 and demonstrated right RALPH of 0.67 and left RALPH of 0.78. Patient educated on the importance of offloading and instructed to float the heels when laying in bed. Do not feel that this is pressure related at this time as patient does not have mobility issues. However, patient does wear orthotic inserts and issues and these are over 2 years old, instructed to follow-up with podiatry to consider new orthotic insoles as they are very worn down. Patient educated on the importance of diet on wound healing and instructed to increase protein and vitamin C intake. Patient verbalized understanding. Patient will follow up at wound healing center in one week or sooner if needed. This note was generated with [employer] software. It may contain incorrect words, spelling, and punctuation that were not noted in checking the note before signing. Code Visit 111xxx-113xx: 14354 Luz subq tissue 20 sq cm/<
--- NOTE | 2017-11-09 09:06 | PN.PCM_ITS ---
(1) Ulcer of right heel Status: Acute Code(s): L97.419 - Non-pressure chronic ulcer of right heel and midfoot with unspecified severity (2) Chronic pain of right heel Status: Acute Code(s): M79.671 - Pain in right foot; G89.29 - Other chronic pain (3) Hyperlipidemia Status: Chronic Qualifiers: Code(s): E78.5 - Hyperlipidemia, unspecified (4) Hypertension Status: Chronic Qualifiers: Code(s): I10 - Essential (primary) hypertension (5) Peripheral vascular disease Status: Chronic Code(s): I73.9 - Peripheral vascular disease, unspecified (6) Yeast dermatitis Status: Acute Code(s): B37.2 - Candidiasis of skin and nail Type of Wound Date of Service: 11/02/17 Chief Complaint: Right heel pain on and off ?2 years with increasing pain and ulceration over the past 2 months History of Wound: This is an 82-year-old white male who presents to the wound healing center today with complaints of worsening right heel pain and a superficial ulceration on the right heel with surrounding redness and excoriation. He has a past medical history which is significant for that of PVD , PAD, CAD, hypertension, GERD, and hyperlipidemia. He has in the past undergone angioplasty of the right lower extremity by Dr. Rose. A most recent RALPH was done on 08/23/2017 and demonstrated right RALPH of 0.67 and left RALPH of 0.78. The patient states that he has had ongoing right heel pain for 1-2 years and wears orthotic shoes. He states that his orthotics are approximately 2 years old as well. He states that he has been seen podiatry who referred him to the wound healing center as he now has a superficial ulceration on his right heel with surrounding redness and occasional bleeding. He states that the pain is a intermittent sharp pain. He does state that he has been seen by orthopedics and podiatry in the past and was told that he has a heel spur as well, however it was felt that this was not the root cause of his pain. He denies any purulent drainage in his wound treatments so far have consisted of applying Vaseline daily. The patient otherwise denies any fever, chills, nausea , vomiting, shortness of breath, chest pain or pressure, palpitations, orthopnea , lower extremity edema, syncope or presyncopal episodes. Progress of Wound: improved dramatically in size, no pain surrounding ulcer, currently only has pain at site of ulcer or right heel. No signs of systemic infection, recently saw podiatry and had orthotics altered to offload pressure on the heel. Minimal redness - Physical Exam Vital Signs Temp Pulse Resp BP 97.7 F L 77 16 107/56 L 11/02/17 16:47 11/02/17 16:47 11/02/17 16:47 11/02/17 16:47 General: Alert, Oriented x3, Cooperative, No apparent distress HEENT: Atraumatic Cardiovascular: Regular rate Skin: Ulcer/ Wound - very small ulcer present right plantar heel with adherant slough Neurological: Neuro grossly intact Psych/Mental Status: Normal Affect, Appropriate, Alert and oriented to time, place, person, mood and affect Debridement Note Post-Debridement Measurements/Treatment WC - Nurse 2 - General Ulcer CM Notes Start: 10/19/17 16:42 Freq: Status: Active Protocol: Activity Type Activity Date Activity User E-Sign Co-Sign Detail Recorded Client Recorded Date Recorded By Document 10/19/17 17:01 [id number] 10/19/17 17:04 TM Document 10/26/17 17:25 [id number] 10/26/17 17:27 TM Document 11/02/17 16:59 [id number] 11/02/17 17:00 10/19/17 10/26/17 11/02/17 17:01 17:25 16:59 Wound Center Nurse 2 #5 R Heel -Time 17:01 17:26 16:59 -Correct Patient Yes Yes Yes -Correct Side, Site, Position Yes Yes Yes -Correct Procedure Yes Yes Yes -Procedure Performed Yes Yes Yes -Type of Procedure Debridement Debridement Debridement -Clinical Debridement Subcutaneous Subcutaneous Subcutaneous -Post Debridement Size (cm) - Length 0.4 0.3 0.1 -Post Debridement Size (cm) - Width 0.4 0.2 0.1 -Post Debridement Size (cm) - Depth 0.1 0.1 0.1 -Total Square Cm 0.16 0.06 0.01 -Wound/Ulcer Outcome Not Healed Not Healed Not Healed -Ulcer Cleansing Rinsed/ Rinsed/ Rinsed/ Irrigated with Irrigated with Irrigated with Saline Saline Saline -Foul Odor after Cleansing No No No -Bioengineered Tissue No No No -Topical Lidocaine (%) 4 4 4 -Lidocaine (ml) 5 -Bleeding Controlled with Pressure Pressure NA -Treatment Response Procedure Procedure Procedure Tolerated Well Tolerated Well Tolerated Well Pain Scale: 0-10 Numeric Is Patient Pain Free? Yes Yes Yes Wound debrided: right heel ulcer Laterality: Right Type of Debridement: Excisional debridement Anesthesia Used: 5% Lidocaine Gel Depth: in the subcutaneous layer Percentage of wound debrided: 100 Instrument Used: 3mm curette Tissue Removed: slough and devitalized tissue Severity: Fat Layer Exposed Amount of bleeding with debridement: None Bleeding Controlled with: Pressure Patient tolerated procedure well Assessment/Plan Assessment: See above diagnoses Plan: The patient was seen and examined at the wound center today and was updated on the plan of care. A subcutaneous debridement was performed today. The patient tolerated the procedure well. The patients wound care will consist of: Applying Aquacel silver and optifoam daily for offloading and alternating with nystatin cream for yeast that grew on culture. Wound cultures were collected previously and showed yeast. xray ordered previously and WNL. Vascular studies reviewed from August 2017 and demonstrated right RALPH of 0.67 and left RALPH of 0.78. Patient educated on the importance of offloading and instructed to float the heels when laying in bed. Do not feel that this is pressure related at this time as patient does not have mobility issues. However , patient does wear orthotic inserts and issues and these are over 2 years old, instructed to follow-up with podiatry to consider new orthotic insoles as they are very worn down. Patient educated on the importance of diet on wound healing and instructed to increase protein and vitamin C intake. Patient verbalized understanding. Patient will follow up at wound healing center in one week or sooner if needed. This note was generated with [employer] software. It may contain incorrect words, spelling, and punctuation that were not noted in checking the note before signing. Code Visit 111xxx-113xx: [id number] Luz subq tissue 20 sq cm/<
[2017-11-09 16:46] VITALS: BP 101/52; PULSE 71; RESP 18; TEMP 36.4
--- NOTE | 2017-11-09 20:34 | PCM.WC.PN ---
(1) Ulcer of right heel Status: Acute Current Visit: Yes Code(s): L97.419 - Non-pressure chronic ulcer of right heel and midfoot with unspecified severity (2) Chronic pain of right heel Status: Acute Current Visit: Yes Code(s): M79.671 - Pain in right foot; G89.29 - Other chronic pain (3) Hyperlipidemia Status: Chronic Current Visit: No Qualifiers: Code(s): E78.5 - Hyperlipidemia, unspecified (4) Hypertension Status: Chronic Current Visit: No Qualifiers: Code(s): I10 - Essential (primary) hypertension (5) Peripheral vascular disease Status: Chronic Current Visit: Yes Code(s): I73.9 - Peripheral vascular disease, unspecified (6) Yeast dermatitis Status: Acute Current Visit: Yes Code(s): B37.2 - Candidiasis of skin and nail Type of Wound Date of Service: 11/09/17 Chief Complaint: Right heel pain on and off ?2 years with increasing pain and ulceration over the past 2 months History of Wound: This is an 82-year-old white male who presents to the wound healing center today with complaints of worsening right heel pain and a superficial ulceration on the right heel with surrounding redness and excoriation. He has a past medical history which is significant for that of PVD, PAD, CAD, hypertension, GERD, and hyperlipidemia. He has in the past undergone angioplasty of the right lower extremity by Dr. Rose. A most recent RALPH was done on 08/23/2017 and demonstrated right RALPH of 0.67 and left RALPH of 0.78. The patient states that he has had ongoing right heel pain for 1-2 years and wears orthotic shoes. He states that his orthotics are approximately 2 years old as well. He states that he has been seen podiatry who referred him to the wound healing center as he now has a superficial ulceration on his right heel with surrounding redness and occasional bleeding. He states that the pain is a intermittent sharp pain. He does state that he has been seen by orthopedics and podiatry in the past and was told that he has a heel spur as well, however it was felt that this was not the root cause of his pain. He denies any purulent drainage in his wound treatments so far have consisted of applying Vaseline daily. The patient otherwise denies any fever, chills, nausea, vomiting, shortness of breath, chest pain or pressure, palpitations, orthopnea, lower extremity edema, syncope or presyncopal episodes. Progress of Wound: Ulcer has healed, still has pain at site of right heel, but has improved. No signs of systemic infection, recently saw podiatry and had orthotics altered to offload pressure on the heel. No redness - Physical Exam Vital Signs Temp Pulse Resp BP 97.5 F L 71 18 101/52 L 11/09/17 16:46 11/09/17 16:46 11/09/17 16:46 11/09/17 16:46 General: Alert, Oriented x3, Cooperative, No apparent distress HEENT: Atraumatic Lungs: Clear to auscultation Cardiovascular: Regular rate, Normal S1, Normal S2 Extremities: No edema, Peripheral Pulses Normal Skin: Ulcer/ Wound - healed right heel Wound Measurements and Assessment WC - Nurse 1 - General Ulcer Measurement Start: 10/19/17 16:42 Freq: Status: Active Protocol: Activity Type Activity Date Activity User E-Sign Co-Sign Detail Recorded Client Recorded Date Recorded By Document 11/09/17 16:46 DL [id number] 11/09/17 16:48 DL 11/09/17 16:46 Wound Center Nurse 1 [Ulcer Assessment] #5 R Heel -Current Size (cm) - Length 0 -Current Size (cm) - Width 0 -Current Size (cm) - Depth 0 -Total Square Cm 0 -Photo Taken Yes -Exudate Amt None Present (0 %) -Wound Margin Flat & Intact -Granulation Amt Large (67-100%) -Granulation Quality Henefer -Necrosis Amt None Present (0 %) -Texture (Michelle-wound Skin Appearance) No Abnormality -Moisture (Michelle-wound Skin Appearance Dry/Scaly ) -Color (Michelle-wound Skin Appearance) No Abnormality -Temperature (Michelle-wound Skin No Abnormality Appearance) (Pt Warm) -Ulcer Cleansing Rinsed/ Irrigated with Saline -Foul Odor after Cleansing No -Anesthetic Used 4% Lidocaine Solution WC - Nurse 2 - General Ulcer CM Notes Start: 10/19/17 16:42 Freq: Status: Active Protocol: Activity Type Activity Date Activity User E-Sign Co-Sign Detail Recorded Client Recorded Date Recorded By Document 11/09/17 17:09 [id number] 11/09/17 17:10 Document 11/09/17 17:09 [id number] 11/09/17 17:10 11/09/17 17:09 Wound Center Nurse 2 [Procedure/Treatment] -Correct Patient No -Correct Side, Site, Position No -Post Debridement Size (cm) - Length 0 -Post Debridement Size (cm) - Width 0 -Post Debridement Size (cm) - Depth 0 -Total Square Cm 0 -Wound/Ulcer Outcome Healed- Epithelialized [See Physician Procedure note for Specifics] Pain Scale: 0-10 Numeric [Pain] -Is Patient Pain Free? Yes Neurological: Cranial nerves II-XII grossly intact, Neuro grossly intact Psych/Mental Status: Normal Affect, Appropriate, Alert and oriented to time, place, person, mood and affect Debridement Note Post-Debridement Measurements/Treatment WC - Nurse 2 - General Ulcer CM Notes Start: 10/19/17 16:42 Freq: Status: Active Protocol: Activity Type Activity Date Activity User E-Sign Co-Sign Detail Recorded Client Recorded Date Recorded By Document 10/19/17 17:01 [id number] 10/19/17 17:04 Document 10/26/17 17:25 [id number] 10/26/17 17:27 Document 11/02/17 16:59 [id number] 11/02/17 17:00 Document 11/09/17 17:09 [id number] 11/09/17 17:10 Document 11/09/17 17:09 [id number] 11/09/17 17:10 10/19/17 10/26/17 11/02/17 17:01 17:25 16:59 Wound Center Nurse 2 #5 R Heel -Time 17:01 17:26 16:59 -Correct Patient Yes Yes Yes -Correct Side, Site, Position Yes Yes Yes -Correct Procedure Yes Yes Yes -Procedure Performed Yes Yes Yes -Type of Procedure Debridement Debridement Debridement -Clinical Debridement Subcutaneous Subcutaneous Subcutaneous -Post Debridement Size (cm) - Length 0.4 0.3 0.1 -Post Debridement Size (cm) - Width 0.4 0.2 0.1 -Post Debridement Size (cm) - Depth 0.1 0.1 0.1 -Total Square Cm 0.16 0.06 0.01 -Wound/Ulcer Outcome Not Healed Not Healed Not Healed -Ulcer Cleansing Rinsed/ Rinsed/ Rinsed/ Irrigated with Irrigated with Irrigated with Saline Saline Saline -Foul Odor after Cleansing No No No -Bioengineered Tissue No No No -Topical Lidocaine (%) 4 4 4 -Lidocaine (ml) 5 -Bleeding Controlled with Pressure Pressure NA -Treatment Response Procedure Procedure Procedure Tolerated Well Tolerated Well Tolerated Well Pain Scale: 0-10 Numeric Is Patient Pain Free? Yes Yes Yes 11/09/17 17:09 Wound Center Nurse 2 #5 R Heel -Time -Correct Patient No -Correct Side, Site, Position No -Correct Procedure -Procedure Performed -Type of Procedure -Clinical Debridement -Post Debridement Size (cm) - Length 0 -Post Debridement Size (cm) - Width 0 -Post Debridement Size (cm) - Depth 0 -Total Square Cm 0 -Wound/Ulcer Outcome Healed- Epithelialized -Ulcer Cleansing -Foul Odor after Cleansing -Bioengineered Tissue -Topical Lidocaine (%) -Lidocaine (ml) -Bleeding Controlled with -Treatment Response Pain Scale: 0-10 Numeric Is Patient Pain Free? Yes No debridement was completed today Assessment/Plan Active Problems (Last Reviewed 08/03/17 @ 11:36 by Janes Loera MD) Chronic pain of right heel (Acute) Ulcer of right heel (Acute) Yeast dermatitis (Acute) Peripheral vascular disease (Chronic) Assessment: See above diagnoses Plan: The patient was seen and examined at the wound center today and was updated on the plan of care. 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 Patient right heel ulcer is healed, he may continue optifoam daily for the next 1-2 weeks for offloading. xray ordered previously and WNL. Vascular studies reviewed from August 2017 and demonstrated right RALPH of 0.67 and left RALPH of 0.78. Patient educated on the importance of offloading and instructed to float the heels when laying in bed. Patient does have new orthotics ordered. Instructed that he may use Cerave moisturizing cream to dry heels.Patient educated on the importance of diet on wound healing and instructed to increase protein and vitamin C intake. Patient verbalized understanding. Patient will be discharged from wound healing center and f/u PRN . This note was generated with [employer] software. It may contain incorrect words, spelling, and punctuation that were not noted in checking the note before signing. Code Visit Office Visits / Consults: [id number] OV L3 Est
--- NOTE | 2017-11-10 11:39 | PN.PCM_ITS ---
(1) Ulcer of right heel Status: Acute Current Visit: Yes Code(s): L97.419 - Non-pressure chronic ulcer of right heel and midfoot with unspecified severity (2) Chronic pain of right heel Status: Acute Current Visit: Yes Code(s): M79.671 - Pain in right foot; G89.29 - Other chronic pain (3) Hyperlipidemia Status: Chronic Current Visit: No Qualifiers: Code(s): E78.5 - Hyperlipidemia, unspecified (4) Hypertension Status: Chronic Current Visit: No Qualifiers: Code(s): I10 - Essential (primary) hypertension (5) Peripheral vascular disease Status: Chronic Current Visit: Yes Code(s): I73.9 - Peripheral vascular disease, unspecified (6) Yeast dermatitis Status: Acute Current Visit: Yes Code(s): B37.2 - Candidiasis of skin and nail Type of Wound Date of Service: 11/09/17 Chief Complaint: Right heel pain on and off ?2 years with increasing pain and ulceration over the past 2 months History of Wound: This is an 82-year-old white male who presents to the wound healing center today with complaints of worsening right heel pain and a superficial ulceration on the right heel with surrounding redness and excoriation. He has a past medical history which is significant for that of PVD , PAD, CAD, hypertension, GERD, and hyperlipidemia. He has in the past undergone angioplasty of the right lower extremity by Dr. Rose. A most recent RALPH was done on 08/23/2017 and demonstrated right RALPH of 0.67 and left RALPH of 0.78. The patient states that he has had ongoing right heel pain for 1-2 years and wears orthotic shoes. He states that his orthotics are approximately 2 years old as well. He states that he has been seen podiatry who referred him to the wound healing center as he now has a superficial ulceration on his right heel with surrounding redness and occasional bleeding. He states that the pain is a intermittent sharp pain. He does state that he has been seen by orthopedics and podiatry in the past and was told that he has a heel spur as well, however it was felt that this was not the root cause of his pain. He denies any purulent drainage in his wound treatments so far have consisted of applying Vaseline daily. The patient otherwise denies any fever, chills, nausea , vomiting, shortness of breath, chest pain or pressure, palpitations, orthopnea , lower extremity edema, syncope or presyncopal episodes. Progress of Wound: Ulcer has healed, still has pain at site of right heel, but has improved. No signs of systemic infection, recently saw podiatry and had orthotics altered to offload pressure on the heel. No redness - Physical Exam Vital Signs Temp Pulse Resp BP 97.5 F L 71 18 101/52 L 11/09/17 16:46 11/09/17 16:46 11/09/17 16:46 11/09/17 16:46 General: Alert, Oriented x3, Cooperative, No apparent distress HEENT: Atraumatic Lungs: Clear to auscultation Cardiovascular: Regular rate, Normal S1, Normal S2 Extremities: No edema, Peripheral Pulses Normal Skin: Ulcer/ Wound - healed right heel Wound Measurements and Assessment WC - Nurse 1 - General Ulcer Measurement Start: 10/19/17 16:42 Freq: Status: Active Protocol: Activity Type Activity Date Activity User E-Sign Co-Sign Detail Recorded Client Recorded Date Recorded By Document 11/09/17 16:46 DL [id number] 11/09/17 16:48 DL 11/09/17 16:46 Wound Center Nurse 1 [Ulcer Assessment] #5 R Heel -Current Size (cm) - Length 0 -Current Size (cm) - Width 0 -Current Size (cm) - Depth 0 -Total Square Cm 0 -Photo Taken Yes -Exudate Amt None Present (0 %) -Wound Margin Flat & Intact -Granulation Amt Large (67-100%) -Granulation Quality [place] -Necrosis Amt None Present (0 %) -Texture (Michelle-wound Skin Appearance) No Abnormality -Moisture (Michelle-wound Skin Appearance Dry/Scaly ) -Color (Michelle-wound Skin Appearance) No Abnormality -Temperature (Michelle-wound Skin No Abnormality Appearance) (Pt Warm) -Ulcer Cleansing Rinsed/ Irrigated with Saline -Foul Odor after Cleansing No -Anesthetic Used 4% Lidocaine Solution WC - Nurse 2 - General Ulcer CM Notes Start: 10/19/17 16:42 Freq: Status: Active Protocol: Activity Type Activity Date Activity User E-Sign Co-Sign Detail Recorded Client Recorded Date Recorded By Document 11/09/17 17:09 [id number] 11/09/17 17:10 Document 11/09/17 17:09 [id number] 11/09/17 17:10 11/09/17 17:09 Wound Center Nurse 2 [Procedure/Treatment] -Correct Patient No -Correct Side, Site, Position No -Post Debridement Size (cm) - Length 0 -Post Debridement Size (cm) - Width 0 -Post Debridement Size (cm) - Depth 0 -Total Square Cm 0 -Wound/Ulcer Outcome Healed- Epithelialized [See Physician Procedure note for Specifics] Pain Scale: 0-10 Numeric [Pain] -Is Patient Pain Free? Yes Neurological: Cranial nerves II-XII grossly intact, Neuro grossly intact Psych/Mental Status: Normal Affect, Appropriate, Alert and oriented to time, place, person, mood and affect Debridement Note Post-Debridement Measurements/Treatment WC - Nurse 2 - General Ulcer CM Notes Start: 10/19/17 16:42 Freq: Status: Active Protocol: Activity Type Activity Date Activity User E-Sign Co-Sign Detail Recorded Client Recorded Date Recorded By Document 10/19/17 17:01 [id number] 10/19/17 17:04 Document 10/26/17 17:25 [id number] 10/26/17 17:27 Document 11/02/17 16:59 [id number] 11/02/17 17:00 Document 11/09/17 17:09 [id number] 11/09/17 17:10 Document 11/09/17 17:09 [id number] 11/09/17 17:10 10/19/17 10/26/17 11/02/17 17:01 17:25 16:59 Wound Center Nurse 2 #5 R Heel -Time 17:01 17:26 16:59 -Correct Patient Yes Yes Yes -Correct Side, Site, Position Yes Yes Yes -Correct Procedure Yes Yes Yes -Procedure Performed Yes Yes Yes -Type of Procedure Debridement Debridement Debridement -Clinical Debridement Subcutaneous Subcutaneous Subcutaneous -Post Debridement Size (cm) - Length 0.4 0.3 0.1 -Post Debridement Size (cm) - Width 0.4 0.2 0.1 -Post Debridement Size (cm) - Depth 0.1 0.1 0.1 -Total Square Cm 0.16 0.06 0.01 -Wound/Ulcer Outcome Not Healed Not Healed Not Healed -Ulcer Cleansing Rinsed/ Rinsed/ Rinsed/ Irrigated with Irrigated with Irrigated with Saline Saline Saline -Foul Odor after Cleansing No No No -Bioengineered Tissue No No No -Topical Lidocaine (%) 4 4 4 -Lidocaine (ml) 5 -Bleeding Controlled with Pressure Pressure NA -Treatment Response Procedure Procedure Procedure Tolerated Well Tolerated Well Tolerated Well Pain Scale: 0-10 Numeric Is Patient Pain Free? Yes Yes Yes 11/09/17 17:09 Wound Center Nurse 2 #5 R Heel -Time -Correct Patient No -Correct Side, Site, Position No -Correct Procedure -Procedure Performed -Type of Procedure -Clinical Debridement -Post Debridement Size (cm) - Length 0 -Post Debridement Size (cm) - Width 0 -Post Debridement Size (cm) - Depth 0 -Total Square Cm 0 -Wound/Ulcer Outcome Healed- Epithelialized -Ulcer Cleansing -Foul Odor after Cleansing -Bioengineered Tissue -Topical Lidocaine (%) -Lidocaine (ml) -Bleeding Controlled with -Treatment Response Pain Scale: 0-10 Numeric Is Patient Pain Free? Yes No debridement was completed today Assessment/Plan Active Problems (Last Reviewed 08/03/17 @ 11:36 by Janes Loera MD) Chronic pain of right heel (Acute) Ulcer of right heel (Acute) Yeast dermatitis (Acute) Peripheral vascular disease (Chronic) Assessment: See above diagnoses Plan: The patient was seen and examined at the wound center today and was updated on the plan of care. 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 Patient right heel ulcer is healed, he may continue optifoam daily for the next 1-2 weeks for offloading. xray ordered previously and WNL. Vascular studies reviewed from August 2017 and demonstrated right RALPH of 0.67 and left RALPH of 0.78. Patient educated on the importance of offloading and instructed to float the heels when laying in bed. Patient does have new orthotics ordered. Instructed that he may use Cerave moisturizing cream to dry heels.Patient educated on the importance of diet on wound healing and instructed to increase protein and vitamin C intake. Patient verbalized understanding. Patient will be discharged from wound healing center and f/u PRN . This note was generated with [employer] software. It may contain incorrect words, spelling, and punctuation that were not noted in checking the note before signing. Code Visit Office Visits / Consults: 42800 OV L3 Est
== END 2017-11-14 23:59 ==
LOC: WC 16:30
PROVIDERS: Family Provider Family Medicine; PCP Family Medicine; Visit Provider Nurse Practitioner Family
DX: I73.9 Peripheral vascular disease, unspecified (principal); L97.412 Non-pressure chronic ulcer of right heel and midfoot with fat layer exposed; E78.5 Hyperlipidemia, unspecified; I10 Essential (primary) hypertension; B37.2 Candidiasis of skin and nail; K21.9 Gastro-esophageal reflux disease without esophagitis; I25.10 Atherosclerotic heart disease of native coronary artery without angina pectoris
CPT/HCPCS: 11042; 99211; G0463

== ENCOUNTER 2018-02-14 17:31 | Observation (INO) | payer MEDICARE, OTHER, SELFPAY ==
[2018-02-14] VITALS (11 sets, daily range): BP systolic 91–156; BP diastolic 50–60; PULSE 66–84; RESP 10–21; TEMP 36.3–36.7; O2SAT 97–99; BMI 21.4; BMI 21.5; BMI 19.6
--- NOTE | 2018-02-14 17:43 | CT_ITS ---
STUDY: CT BRAIN WITHOUT CONTRAST REASON FOR EXAM: Male, 82 years old. Altered mental status. Patient unresponsive. RADIATION DOSAGE (If Supplied By Facility): CTDIvol = ( 44.99 ) mGy, DLP = ( 846.73 ) mGycm TECHNIQUE: Transaxial CT imaging of the brain was performed without administration of intravenous contrast material. Individualized dose optimization techniques were used for this CT. COMPARISON: March 08, 2017. FINDINGS: Normal soft tissue structures. Normal calvarium. There is mild cerebral atrophy with widening of the extra-axial spaces and ventricular dilatation. There are areas of decreased attenuation within the white matter tracts of the supratentorial brain, consistent with microvascular disease changes. Normal basal ganglia and thalami. Normal brainstem. Normal cerebellum. There is no intracranial hemorrhage. There are no findings of an acute ischemic infarction. Normal visualized paranasal sinuses. CT/Brain/Head without Contrast IMPRESSION: Chronic involutional changes of the brain. Stable appearance. No hemorrhage. Electronically Signed: Mohan Lee MD at 19:00 EDT , Service support ,
--- NOTE | 2018-02-14 17:43 | RAD_ITS ---
STUDY: X-RAY CHEST REASON FOR EXAM: Male, 82 years old. Chest pain TECHNIQUE: Single AP portable view of the chest. COMPARISON: August 01, 2016 FINDINGS: There are monitoring devices. There is hyperinflation of the lungs consistent with chronic obstructive lung disease (COPD). There is no demonstrated pleural abnormality. Normal size heart. Normal mediastinum and terry. Normal visualized pulmonary arteries. Normal visualized aortic arch and descending thoracic aorta. There is demineralization of the osseous structures. The postoperative change of the left shoulder There is no demonstrated abnormality of the visualized soft tissue structures of the upper abdomen. RAD/Chest 1 View (Portable) IMPRESSION: Degenerative changes, as described above. No demonstrated acute cardiopulmonary process. Electronically Signed: Mohan Lee MD at 18:28 EDT , Service support ,
--- NOTE | 2018-02-14 17:43 | EKG12_ITS ---
Test Reason : CHEST PAIN Blood Pressure : / mmHG Vent. Rate : 068 BPM Atrial Rate : 267 BPM P-R Int : 000 ms QRS Dur : 104 ms QT Int : 442 ms P-R-T Axes : 000 084 079 degrees QTc Int : 469 ms Normal sinus rhythm Otherwise normal ECG Confirmed by CARMEN MONTES, CHARLY ([id number]), editor book FREDI GILL ([id number]) on 02/21/2018 2:21:11 PM Referred By: Mario Sanchez Confirmed By:CHARLY MORALES MD
[2018-02-14 17:59] LABS: Absolute Lymphocyte Count 0.98 X10^3/ul (0.83-4.51); Absolute Neutrophil Count 3.9 X10^3/uL (2.0-7.7); Basophil# 0.02 X10^3/uL; Basophil% 0.4 % (0-1); Eosinophil# 0.07 X10^3/uL; Eosinophils% 1.3 % (0-5); Hematocrit 34.5 % (40-54); Hemoglobin 11.2 g/dl (13.0-16.5); Lymphocyte # 0.98 X10^3/ul (4.0); Lymphocyte % 17.7 % (19-41); Mean Corp Hgb Conc 32.5 g/gl (32-36); Mean Corpuscular Hgb 31.9 pg (27.0-32.0); Mean Corpuscular Volume 98.3 fL (80-94); Mean Platelet Vol. 8.6 fl (6.2-12.0); Monocyte% 10.8 % (0-10); Neutrophil # 3.88 X10^3/uL (2.7-7.7); Neutrophil % 69.8 % (47-70); POSITIVE COUNT NO; POSITIVE DIFFERENTIAL NO; POSITIVE MORPHOLOGY NO; Platelet Count 386 K/mm3 (150-450); RBC Distribution Width CV 14.5 % (11.6-14.6); RBC Distribution Width SD 49.9 fl (35.1-43.9); Red Blood Count 3.51 M/mm3 (4.6-6.2); White Blood Count 5.6 K/mm3 (4.4-11.0)
[2018-02-14] MEDS: 0.9% Normal Saline 1,000 ML 500 ML IV (18:02)
[2018-02-14] MEDS: Aspirin 81 MG TAB.CHEW 324 MG PO (18:02)
[2018-02-14 18:04] LABS: Partial Thromboplast Time 24.3 Seconds (24.1-36.2); Prothrombin Time (Protime)PT. 13.6 SECONDS (11.7-14.9)
[2018-02-14 18:14] LABS: Anion Gap 9 (5-15); BUN 29 mg/dL (7-18); BUN/Creat Ratio 24.2 RATIO (10-20); Calcium,Total 8.8 mg/dL (8.5-10.1); Chloride 102 mmol/L (98-107); EST Glomerular Filtration Rate 61 mL/min (>60); Est Glom Filt Rate - Afr Amer 74 mL/min (>60); Estimated Creatinine Clearance 39.78 ml/min; Glucose 109 mg/dL (74-106); Potassium 3.3 mmol/L (3.5-5.1); Sodium Level 139 mmol/L (136-145)
--- NOTE | 2018-02-14 18:56 | ED.DCSUM_ITS ---
- ER Visit Summary Date of Service: 02/14/18 Chief Complaint: Syncopal episode History of Present Illness: The patient is a 82 M presenting for evaluation secondary to a syncopal episode. Patient has a underlying history of coronary artery disease with multiple stents. Patient reports that he was eating dinner this evening, seated at the table, and had a sudden syncopal event. The only prodrome that he remembers was that he suddenly felt lightheaded and then he passed out. EMS was immediately called. Patient denies that he had any preceding chest pain or shortness of breath. He denies that he was having any sort of difficulty with swallowing. Patient states that he had a prior similar episodes in the distant past but nothing recently. Patient denies any history of PE or hemoptysis, patient does report that he potentially has a history DVT and thinks he is on a blood thinner but he is actually not currently on a blood thinner. Physical Examination: Vital signs notable for blood pressure 91/59. Thin elderly male no acute distress. Head normocephalic atraumatic. PRL, EOMI no evidence of ventral pallor or scleral icterus. Moist mucous membranes. No JVD. Heart was regular rate and rhythm no murmurs. Lungs sounds clear to auscultation bilaterally. Abdomen soft nontender. No significant peripheral edema, 2+ peripheral pulses x4. Skin normal color no rash. Patient alert and oriented, NIH stroke scale is 0. Test Results: Chest x-ray shows chronic changes. EKG shows what appears to be a sinus rhythm with a rate of [address] segments normal T waves and a right bundle branch block with occasional PACs. Patient's P waves appear to be different in morphology than a prior EKG. CBC shows mild anemia 11.2, chemistry shows potassium 3.3, coags and troponin are found to be normal. CT brain shows chronic changes. Second EKG demonstrates atrial fibrillation with a ventricular rate of 82 Emergency Department Course and Treatment: Patient presented secondary to a syncopal episode. Workup as noted above shows only evidence of the patient having a new onset atrial fibrillation. I believe the patient requires admission at this point. I discussed this with hospitalist. Patient's blood pressure improved during his hospital stay. Disposition: Admission Impression: 1. New onset atrial fibrillation 2. Syncope This note was generated with [employer] software. It may contain incorrect words, spelling, and punctuation that were not noted in review of the chart prior to signing ED Disposition - Plan for ED Patient: Chief Complaint: Syncope
--- NOTE | 2018-02-14 19:14 | EKG12_ITS ---
Test Reason : POSS A-FIB Blood Pressure : / mmHG Vent. Rate : 082 BPM Atrial Rate : 080 BPM P-R Int : 000 ms QRS Dur : 136 ms QT Int : 442 ms P-R-T Axes : 000 071 052 degrees QTc Int : 516 ms Atrial fibrillation Right bundle branch block Abnormal ECG Confirmed by CARMEN MONTES, CHARLY ([id number]), editor trade journal FREDI GILL ([id number]) on 02/21/2018 2:21:29 PM Referred By: Mario Sanchez Confirmed By:CHARLY MORALES MD
--- NOTE | 2018-02-14 19:24 | PCM.HP.STD ---
Problem List (1) Syncope Status: Acute (2) Enteritis Status: Acute History of Present Illness Date of Admission: 02/14/18 Chief Complaint: syncope The patient is a 82 year old M with a significant history history of CAD status post stent; PAD status post stent; and essential hypertension who presents with a transient loss of consciousness whiles at the kitchen table. Patient reports that he felt lightheaded and then he passed out. He was not responsive after passing out. Family denies any seizure activity. Emergency department doctor reports seen Mike fib on the monitor. Also patient reports that earlier in the day he had an episode of diarrhea where he soiled his underwear stool. He reports tenesmus. Past Medical History Past Medical History (Chronic Problems): Chronic Problems (Last Reviewed 02/14/18 @ 20:07 by Mario Sanchez MD) Essential (primary) hypertension (Chronic) Stenosis of femoral artery (Chronic) Right Femoral Artery PTCA/Stent 08/2012; angioplasty and stenting of the Rt SFA @ [facility] per Dr. Zapata; Stent to distal RSFA to popliteal, Stent Rt. Proximal SFA 10/23/[address] disease [address] [place] coronary artery without angina pectoris (Chronic) PTCA/Stent to mid RCA 08/06/04; cutting balloon angioplasty with TAMERA to mid RCA 02/19; PTCA/Stent of focal instent stenosis of RCA 06/18/09; PCI/TAMERA to Ostial PDA and PCI-ISR RCA 09/03/13; PCi/TAMERA ISR of mid RCA 10/07/15; FFR mid LAD @ [facility] 10/08/15 GERD (gastroesophageal reflux disease) (Chronic) Hyperlipidemia (Chronic) Obstructive sleep apnea (Chronic) Peripheral vascular disease (Chronic) Medical History: Medical History (Last Reviewed 02/14/18 @ 20:07 by Mario Sanchez MD) Essential (primary) hypertension (Chronic) I10 Palpitations (Acute) R00.2 Stenosis of femoral artery (Chronic) I70.209 Right Femoral Artery PTCA/Stent 08/2012; angioplasty and stenting of the Rt SFA @ [facility] per Dr. Zapata; Stent to distal RSFA to popliteal, Stent Rt. Proximal SFA 10/23/[address] heart disease of [place] coronary artery without angina pectoris (Chronic) I25.10 PTCA/Stent to mid RCA 08/06/04; cutting balloon angioplasty with TAMERA to mid RCA 02/19; PTCA/Stent of focal instent stenosis of RCA 06/18/09; PCI/TAMERA to Ostial PDA and PCI-ISR RCA 09/03/13; PCi/TAMERA ISR of mid RCA 10/07/15; FFR mid LAD @ [facility] 10/08/15 GERD (gastroesophageal reflux disease) (Chronic) K21.9 Hyperlipidemia (Chronic) E78.5 Obstructive sleep apnea (Chronic) G47.33 Peripheral vascular disease (Chronic) I73.9 Prostate cancer C61 Spondylolisthesis M43.10 DDD (degenerative disc disease) Lumbar radiculopathy M54.16 Lumbar stenosis M48.061 Peripheral neuropathy G62.9 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 [Ecotrin] 81 mg PO DAILY 03/08/17 Naproxen 375 mg PO BID PRN 03/08/17 Vitamin E 400 unit PO DAILY 03/08/17 metoprolol succinate ER 25 mg 12.5 mg PO QDAY #45 tab 06/15/17 tablet,extended release 24 hr lisinopril 10 mg tablet 10 mg PO QDAY #90 tab 08/03/17 Acetaminophen [Tylenol Extra 500 mg PO BID 02/14/18 Strength] Atorvastatin Calcium [Lipitor] 20 mg PO QHS 02/14/18 Duloxetine HCl 30 mg PO DAILY 02/14/18 Ferrous Gluconate 324 mg PO DAILY 02/14/18 Furosemide [Lasix] 40 mg PO DAILY 02/14/18 Multivit-Min/FA/Lycopen/Lutein 1 tab PO DAILY 02/14/18 [Centrum Silver Men Tablet] Nitroglycerin 0.4 mg PO PRN PRN 02/14/18 Surgical History: Surgical History (Last Reviewed 02/14/18 @ 20:07 by Mario Sanchez MD) History of coronary artery stent placement (Resolved) Onset Date: 10/07/15 Z95.5 PTCA/Stent to mid RCA 08/06/04; cutting balloon angioplasty with TAMERA to mid RCA 02/19; PTCA/Stent of focal instent stenosis of RCA 06/18/09; PCI/TAMERA to Ostial PDA and PCI-ISR RCA 09/03/13; PCi/TAMERA ISR of mid RCA 10/07/15; FFR mid LAD @ [facility] 10/08/15 Postsurgical percutaneous transluminal coronary angioplasty (PTCA) status Z98.61 PTCA/Stent to mid RCA 08/06/04; cutting balloon angioplasty with TAMERA to mid RCA 02/19; PTCA/Stent of focal instent stenosis of RCA 06/18/09; PCI/TAMERA to Ostial PDA and PTCA/Stent of instent restenosis RCA 09/03/13; [facility] STITCHER/TAMERA Instent restenosis of mid RCA 10/07/15; FFR mid LAD @ [facility] 10/08/15 History of back surgery Z98.890 History of hernia repair Z98.890, Z87.19 History of prostatectomy Z90.79 with radiation History of shoulder surgery Z98.890 History of tonsillectomy Z90.89 Surgical History: -, rotator cuff repair, tonsillectomy, - Lives: Spouse/ Significant Other Smoking Status: Former smoker Alcohol: None - *Family History Maternal Family History: Family History (Last Reviewed 02/14/18 @ 20:07 by Mario Sanchez MD) Mother CVA (cerebral vascular accident) Sister Hypertension Paternal Family History: Family History (Last Reviewed 02/14/18 @ 20:07 by Mario Sanchez MD) Mother CVA (cerebral vascular accident) Sister Hypertension Review of Systems Constitutional: Denies: Chills, Fever, Weight Change HEENT: Denies: Head Aches, Sinus Congestion, Sinus Drainage Cardiovascular: Denies: Chest Pain, Palpitations Respiratory: Denies: Cough, Shortness of breath at rest, Sputum production Gastrointestinal: Reports: Diarrhea. Denies: Abdominal Pain, Nausea, Vomiting Genitourinary: Denies: Dysuria Musculoskeletal: Denies: Joint Pain, Joint Tenderness Skin: Reports: Rash - On left leg. Denies: Wounds Neurological: Denies: Numbness, Tingling, Focal weakness Psychiatric: Denies: Anxiety, Depression, Homicidal Ideations, Suicidal Ideations Hematologic/ Lymphatic: Denies: Easy Bruising, Easy Bleeding VTE Information - Inpt Only VTE Present on Admission: No VTE Mechan Device Prophylaxis: None VTE Pharm Prophylaxis ordered?: Yes Patient Problems: Active and Suspected Problems (Last Reviewed 02/14/18 @ 20:07 by Mario Sanchez MD) Syncope (Acute) Enteritis (Acute) - Physical Exam General: Alert, Oriented x3, Cooperative HEENT: Atraumatic, PERRLA, EOMI, Normocephalic Neck: Supple, No JVD, Negative Carotid Bruits Lungs: Clear to auscultation, Normal air movement Cardiovascular: Regular rate, No murmurs Abdomen: Bowel Sounds Present, Soft, Non Tender Extremities: No edema, Capillary Refill Less than 3 Seconds Skin: No breakdown, - - Left leg with scales. Musculoskeletal: No Tenderness to Palpation of Joints or Extremities Neurological: Cranial nerves II-XII grossly intact Psych/Mental Status: Normal Affect, Appropriate Vital Signs Temp Pulse Resp BP Pulse Ox 97.4 F L 68 13 156/60 H 99 02/14/18 17:32 02/14/18 18:43 02/14/18 18:43 02/14/18 18:43 02/14/18 18:43 Oxygen Delivery Method Room Air Weight: 60.3 kg Body Mass Index (BMI) 21.4 Laboratory Tests Past 24 Hrs 02/14/18 02/14/18 02/14/18 17:45 17:45 17:45 WBC 5.6 RBC 3.51 L Hgb 11.2 L Hct 34.5 L MCV 98.3 H MCH 31.9 MCHC 32.5 RDW 14.5 RDW Differential 49.9 H Plt Count 386 MPV 8.6 Immature Gran % (Auto) 0.000 Neut % (Auto) 69.8 Lymph % (Auto) 17.7 L [place] % (Auto) 10.8 H Eos % (Auto) 1.3 Baso % (Auto) 0.4 Absolute Neuts (auto) 3.9 Absolute Lymphs (auto) 0.98 Total Counted Not Reportable PT 13.6 INR 1.0 APTT 24.3 Sodium 139 Potassium 3.3 L Chloride 102 Carbon Dioxide 28.0 Anion Gap 9 BUN 29 H Creatinine 1.20 Estim Creat Clear Calc 39.78 Est GFR (MDRD) Af Amer 74 Est GFR (MDRD) Non-Af 61 BUN/Creatinine Ratio 24.2 H Glucose 109 H Calcium 8.8 Troponin I < 0.015 Assessment/Plan All Active Problems (Last Reviewed 02/14/18 @ 20:07 by Mario Sanchez MD) Syncope (Acute) Enteritis (Acute) History of coronary artery stent placement (Resolved 10/07/15) Chronic pain of right heel (Acute) Ulcer of right heel (Acute) Yeast dermatitis (Acute) Palpitations (Acute) The patient is a 82 year old M with a significant history history of CAD status post stent; PAD status post stent; and essential hypertension who presents with a transient loss of consciousness. Syncope Differential diagnosis include vasovagal syncope; dysrhythmia; seizure activity or other. Will admit to PCU on telemetry monitoring. CT head did not show any acute pathology Orthostatic blood pressure ordered. Independent review of EKG showed right bundle branch block. Review of old records shows that this is unchanged from previous. EEG ordered. Echocardiogram ordered. ED doctor reported seeing Afib on monitor. Cardiology consult to consider event monitor/loop. Enteritis Likely viral. Patient is on Lasix; continue.Clinical monitoring in the setting of recent diarrhea Chronic anemia Baseline hemoglobin is about 12.1. His creatinine on admission was 11.2. Iron supplements continued Depression Cymbalta continued CAD with stents Aspirin and Plavix continued Lipitor continued PAD with stents Aspirin and Plavix continued as above. Lipitor continued. Hypertension With fluctuation blood pressure on admission. We will hold lisinopril for now. Metoprolol succinate continued but with parameters to hold. Lasix continued. Dermatitis of right leg Patient reports outpatient wound care. Eucerin cream to right leg ordered. DVT prophylaxis Subcutaneous heparin. Code Visit OBSV E&M: 98942 Initial observation care L3
--- NOTE | 2018-02-14 20:30 | ECHOD_ITS ---
Reason For Study: SYNCOPE Procedure This was a 2D Doppler, Color Flow transthoracic echocardiogram. Technically difficult parasternal images due to body habitus. Exam performed portable in patient room. Left Ventricle Normal LV size. Left ventricular systolic function is normal. The estimated ejection fraction is 65 %. Stage 3 diastolic dysfunction. No regional wall motion abnormalities noted. Right Ventricle Normal RV size. Normal systolic function. Atria Normal left atrium. Normal right atrium. Mitral Valve Normal mitral valve. Tricuspid Valve Normal tricuspid valve. Aortic Valve Normal aortic valve. Trisinus/trileaflet aortic valve. Pulmonic Valve Normal pulmonic valve. Great Vessels Normal aortic root. The pulmonary artery is normal size. Normal inferior vena cava. Pericardium/Pleural No pericardial effusion. MMode/2D Measurements & Calculations LVIDd: 3.8 cm IVSd: 1.1 cm LVOT diam: 1.8 cm LVIDs: 2.5 cm LVPWd: 1.0 cm LVOT area: 2.6 cm2 RVDd: 4.6 cm FS: 32.9 % LAV(MOD-bp): 57.0 ml LVAd ap4: 30.8 cm2 SV(MOD-sp4): 58.5 ml LAV(MOD-bp) Indexed: 35.3 ml/m2 EDV(MOD-sp4): 97.3 ml LAV(MOD-sp2): 53.6 ml EDV(sp4-el): 100.8 ml LAV(MOD-sp4): 52.6 ml LVAs ap4: 17.6 cm2 ESV(MOD-sp4): 38.7 ml ESV(sp4-el): 39.8 ml EF(MOD-sp4): 60.2 % EF(sp4-el): 60.5 % SV(sp4-el): 61.0 ml LA A4 area: 18.6 cm2 RA A4 area: 17.0 cm2 Time Measurements MV dec time: 0.24 sec Doppler Measurements & Calculations MV E max maximo: 91.1 cm/sec Lat Peak E' Maximo: 9.0 cm/sec Med Peak E' Maximo: 7.2 cm/sec MV A max maximo: 38.5 cm/sec E/E' lat: 10.1 E/E' med: 12.7 MV E/A: 2.4 Ao V2 max: 135.7 cm/sec LV V1 max: 117.5 cm/sec PA V2 max: 90.8 cm/sec Ao max P.4 mmHg LV V1 max P.5 mmHg LELO(V,D): 2.3 cm2 TR max maximo: 257.6 cm/sec TR max P.6 mmHg Interpretation Summary Normal LV size. Left ventricular systolic function is normal. The estimated ejection fraction is 65 %. Stage 3 diastolic dysfunction. Structurally normal valves. Ordering Physician: Mario Sanchez Referring Physician: RADHA GILL Performed By: Rosalee Mohamud, KAILA, RVT
[2018-02-14] MEDS: Atorvastatin Calcium 20 MG Tablet PO (21:36)
[2018-02-14] MEDS: Heparin Injection (Vial) 5,000 UNIT/ML VIAL 5000 UNIT SC (21:36)
[2018-02-14] MEDS: Metoprolol(XL)Succ 25 MG Tablet 12.5 MG PO (21:37)
[2018-02-15] VITALS (10 sets, daily range): BP systolic 93–138; BP diastolic 53–77; PULSE 55–92; RESP 10–18; TEMP 36.6–36.7; O2SAT 94–97
[2018-02-15 06:10] LABS: Absolute Neutrophil Count 4.4 X10^3/uL (2.0-7.7); Basophil# 0.01 X10^3/uL; Basophil% 0.2 % (0-1); Eosinophil# 0.13 X10^3/uL; Eosinophils% 2.1 % (0-5); Hematocrit 30.1 % (40-54); Hemoglobin 9.8 g/dl (13.0-16.5); Lymphocyte % 14.7 % (19-41); Mean Corp Hgb Conc 32.6 g/gl (32-36); Mean Corpuscular Hgb 31.7 pg (27.0-32.0); Mean Corpuscular Volume 97.4 fL (80-94); Mean Platelet Vol. 8.7 fl (6.2-12.0); Monocyte# 0.67 X10^3/uL; Monocyte% 10.9 % (0-10); Neutrophil # 4.41 X10^3/uL (2.7-7.7); Neutrophil % 71.9 % (47-70); Platelet Count 284 K/mm3 (150-450); RBC Distribution Width CV 14.7 % (11.6-14.6); RBC Distribution Width SD 52.8 fl (35.1-43.9); Red Blood Count 3.09 M/mm3 (4.6-6.2); White Blood Count 6.1 K/mm3 (4.4-11.0)
[2018-02-15 06:13] LABS: POSITIVE COUNT NO; POSITIVE DIFFERENTIAL NO; POSITIVE MORPHOLOGY NO
[2018-02-15 06:19] LABS: Anion Gap 8 (5-15); BUN 31 mg/dL (7-18); Calcium,Total 8.8 mg/dL (8.5-10.1); Chloride 105 mmol/L (98-107); Creatinine, Serum 1.07 mg/dL (0.70-1.30); EST Glomerular Filtration Rate 70 mL/min (>60); Est Glom Filt Rate - Afr Amer 85 mL/min (>60); Estimated Creatinine Clearance 40.84 ml/min; Glucose 88 mg/dL (74-106); Potassium 3.8 mmol/L (3.5-5.1); Sodium Level 142 mmol/L (136-145)
--- NOTE | 2018-02-15 06:55 | PCM.CONS.C ---
Reason for Consult Date of Consultation: 02/15/18 Reason for Consultation: Syncope History of Present Illness: FEI OLEARY, is a 82 M who presented to the emergency room following a syncopal episode. He says that he had been in his stable state of health until yesterday evening when while eating dinner he suddenly felt that he was perspiring and then the next thing he knew the EMS was carrying him out of the room. He had had 2 episodes of diarrhea earlier on in the day but no blood was noted. He has been compliant with all his medications and no changes have been made recently. In the emergency room he was noted to be mildly hypotensive and EKG was done which demonstrated sinus rhythm with premature atrial complexes. No evidence of atrial fibrillation is noted on the strips despite the computer interpretation. As you remember, he is a gentleman with a history of coronary artery disease status post angioplasty and stenting of the right coronary artery ?2 in 2004 restenosis in 2011 and again in 2013 and 2015. His last cardiac catheterization 2015 demonstrated severe two-vessel disease with a 50% stenosis of the mid left anterior descending artery for which she underwent fractional flow reserve evaluation which was 0.86 and was not hemodynamically significant. He underwent angioplasty and stenting of a restenotic right coronary artery lesion. He is done well since then with no chest pain or shortness of breath or paroxysmal nocturnal dyspnea he is not able to exert himself much because of other noncardiac issues. He has had some bilateral lower extremity edema and some shortness of breath with activity. His laboratory tests have been reviewed and he is noted to have had a drop in his hemoglobin. Past Medical History Allergies/Adverse Reactions: Allergies carisoprodol Allergy (Verified 02/14/18 17:37) Other itraconazole Allergy (Verified 02/14/18 17:37) Other Home Medications: Ambulatory Orders Medication Instructions Recorded Clopidogrel Bisulfate [Plavix] 75 mg PO DAILY 01/14/13 Omeprazole [Prilosec] 20 mg PO DAILY 10/07/15 Aspirin E.C. [Ecotrin] 81 mg PO DAILY 03/08/17 Naproxen 375 mg PO BID PRN 03/08/17 Vitamin E 400 unit PO DAILY 03/08/17 metoprolol succinate ER 25 mg 12.5 mg PO QDAY #45 tab 06/15/17 tablet,extended release 24 hr lisinopril 10 mg tablet 10 mg PO QDAY #90 tab 08/03/17 Acetaminophen [Tylenol Extra 500 mg PO BID 02/14/18 Strength] Atorvastatin Calcium [Lipitor] 20 mg PO QHS 02/14/18 Duloxetine HCl 30 mg PO DAILY 02/14/18 Ferrous Gluconate 324 mg PO DAILY 02/14/18 Furosemide [Lasix] 40 mg PO DAILY 02/14/18 Multivit-Min/FA/Lycopen/Lutein 1 tab PO DAILY 02/14/18 [Centrum Silver Men Tablet] Nitroglycerin 0.4 mg PO PRN PRN 02/14/18 Past Medical History (Chronic Problems): Chronic Problems (Last Reviewed 02/14/18 @ 20:07 by Mario Sanchez MD) Essential (primary) hypertension (Chronic) Stenosis of femoral artery (Chronic) Right Femoral Artery PTCA/Stent 08/2012; angioplasty and stenting of the Rt SFA @ [facility] per Dr. Zapata; Stent to distal RSFA to popliteal, Stent Rt. Proximal SFA 10/23/13 Atherosclerotic heart disease of [place] coronary artery without angina pectoris (Chronic) PTCA/Stent to mid RCA 08/06/04; cutting balloon angioplasty with TAMERA to mid RCA 02/19; PTCA/Stent of focal instent stenosis of RCA 06/18/09; PCI/TAMERA to Ostial PDA and PCI-ISR RCA 09/03/13; PCi/TAMERA ISR of mid RCA 10/07/15; FFR mid LAD @ [facility] 10/08/15 GERD (gastroesophageal reflux disease) (Chronic) Hyperlipidemia (Chronic) Obstructive sleep apnea (Chronic) Peripheral vascular disease (Chronic) Surgical History: -, rotator cuff repair, tonsillectomy, - - *Family History Maternal Family History: Family History (Last Reviewed 02/14/18 @ 20:07 by Mario Sanchez MD) Mother CVA (cerebral vascular accident) Sister Hypertension Paternal Family History: Family History (Last Reviewed 02/14/18 @ 20:07 by Mario Sanchez MD) Mother CVA (cerebral vascular accident) Sister Hypertension Lives: Spouse/ Significant Other Smoking Status: Former smoker Tobacco Use: Non-smoker Alcohol: None Drugs: None Review of Systems - Review of Systems General: Denies: Fever Cardiovascular: Reports: Near Syncope, Syncope. Denies: Chest Discomfort, Shortness of Breath, Orthopnea, PND, Peripheral Edema, Palpitations, Lightheadedness, Dizziness Respiratory: Denies: Cough, Sputum Production, Hemoptysis Gastrointestinal: Denies: Hematemesis, Hematochezia, Melena Genitourinary: Denies: Dysuria, Hematuria Skin: Denies: Rash Neurological: Denies: Dizziness Psychiatric: Denies: Anxiety Endocrine: Denies: Unexplained Weight Loss Hematologic/ Lymphatic: Reports: Anemia Subjectve: Pleasant gentleman in no apparent distress Objective: Vital Signs Temp Pulse Resp BP Pulse Ox 97.9 F 63 11 L 116/68 97 02/15/18 06:10 02/15/18 06:14 02/15/18 06:10 02/15/18 06:14 02/15/18 06:10 Oxygen Delivery Method Room Air Weight: 121 lb 11.123 oz Body Mass Index (BMI) 19.6 Orthostatic Vital Signs Start: 02/14/18 21:18 Freq: q24h Status: Active Protocol: Activity Type Activity Date Activity User E-Sign Co-Sign Detail Recorded Client Recorded Date Recorded By Document 02/15/18 06:14 [facility] [place] [id number] 02/15/18 06:15 [facility] 02/15/18 06:14 Orthostatic Vitals Standing -Blood Pressure (90/60-120/80) 138/77 H -Extremity Use Left Arm -Pulse Rate (60-100) 82 Sitting -Blood Pressure (90/60-120/80) 129/75 H -Extremity Use Left Arm -Pulse Rate (60-100) 82 Lying -Blood Pressure (90/60-120/80) 116/68 -Extremity Use Left Arm -Pulse Rate (60-100) 63 Intake and Output for Last 24 Hours 02/13/18 02/14/18 02/15/18 23:59 23:59 23:59 Intake Total 720 / 720 100 / 100 Balance 720 / 720 100 / 100 General: Awake, Alert, Oriented x 3 HEENT: PERRL, EOMI, Sclera Non Icteric Neck: Supple, Good ROM, No Lymph Node Enlargement Lungs: Clear to auscultation Cardiovascular: Regular Rhythm, Normal S1, Normal S2, No Murmurs, No Rubs, No Gallops Vascular: No Carotid Bruits, Normal Femoral Pulses, Normal Radial Pulses, Normal Dorsalis Pedal Pulse, Normal Posterior Tibial Pulses Abdomen: Bowel Sounds Present, Soft, Non Tender, No HSM, No Organomegaly Extremities: No Cyanosis, No Clubbing, No edema Musculoskeletal: No Erythema, Arthritic Changes Skin: No Rashes Lymphatic: No Lymph Node Enlargement Neurological: No Focal Motor or Sensory Deficit Psych/Mental Status: Appropriate 02/14/18 17:45: WBC 5.6, RBC 3.51 L, Hgb 11.2 L, Hct 34.5 L, MCV 98.3 H, MCH 31.9, MCHC 32.5, RDW 14.5, RDW Differential 49.9 H, Plt Count 386, MPV 8.6, Immature Gran % (Auto) 0.000, Neut % (Auto) 69.8, Lymph % (Auto) 17.7 L, [place] % (Auto) 10.8 H, Eos % (Auto) 1.3, Baso % (Auto) 0.4, Absolute Neuts (auto) 3.9, Total Counted Not Reportable 02/14/18 17:45: PT 13.6, INR 1.0, APTT 24.3 02/14/18 17:45: Sodium 139, Potassium 3.3 L, Chloride 102, Carbon Dioxide 28.0, Anion Gap 9, BUN 29 H, Creatinine 1.20, Est GFR (MDRD) Af Amer 74, Est GFR (MDRD) Non-Af 61, BUN/Creatinine Ratio 24.2 H, Glucose 109 H, Calcium 8.8, Troponin I < 0.015 02/15/18 05:35: Sodium 142, Potassium 3.8, Chloride 105, Carbon Dioxide 29.0, Anion Gap 8, BUN 31 H, Creatinine 1.07, Est GFR (MDRD) Af Amer 85, Est GFR (MDRD) Non-Af 70, BUN/Creatinine Ratio 29.0 H, Glucose 88, Calcium 8.8 02/15/18 05:35: WBC 6.1, RBC 3.09 L, Hgb 9.8 L, Hct 30.1 L, MCV 97.4 H, MCH 31.7, MCHC 32.6, RDW 14.7 H, RDW Differential 52.8 H, Plt Count 284, MPV 8.7, Immature Gran % (Auto) 0.200, Neut % (Auto) 71.9 H, Lymph % (Auto) 14.7 L, [place] % (Auto) 10.9 H, Eos % (Auto) 2.1, Baso % (Auto) 0.2, Absolute Neuts (auto) 4.4, Total Counted Not Reportable Rhythm: EKG: Normal sinus rhythm with premature atrial complexes and a right bundle branch block pattern Assessment/Plan 1. Syncope The etiology is unclear but it likely appears to be vagal in origin. He had had 2 episodes of diarrhea and is noted to be anemic. He does have a right bundle branch block which is chronic. I do not see any evidence of atrial fibrillation. My recommendation will be to obtain an echocardiogram to assess his left ventricular function Obtain stool guaiac as well as serial hemoglobin to exclude ongoing bleed especially as he is on aspirin and Plavix At this time I do not think that a 30-day event monitor would be helpful. We may continue to monitor him over the next 24 hours to see whether there are any rhythm abnormalities noted. 2. Coronary artery disease Does have evidence of coronary artery disease but at this time it does not appear that there was any ischemic component to the above. We will continue his current medications. Also continue lipid-lowering medications. 3. Peripheral vascular disease Appears to be stable with regard to the above. Thank you for allowing me to participate in the care of your patient. Please don't hesitate to call if any issues arise
--- NOTE | 2018-02-15 07:00 | CON.PCM_ITS ---
Reason for Consult Date of Consultation: 02/15/18 Reason for Consultation: Syncope History of Present Illness: FEI OLEARY, is a 82 M who presented to the emergency room following a syncopal episode. He says that he had been in his stable state of health until yesterday evening when while eating dinner he suddenly felt that he was perspiring and then the next thing he knew the EMS was carrying him out of the room. He had had 2 episodes of diarrhea earlier on in the day but no blood was noted. He has been compliant with all his medications and no changes have been made recently. In the emergency room he was noted to be mildly hypotensive and EKG was done which demonstrated sinus rhythm with premature atrial complexes. No evidence of atrial fibrillation is noted on the strips despite the computer interpretation. As you remember, he is a gentleman with a history of coronary artery disease status post angioplasty and stenting of the right coronary artery ?2 in 2004 restenosis in 2011 and again in 2013 and 2015. His last cardiac catheterization 2015 demonstrated severe two-vessel disease with a 50% stenosis of the mid left anterior descending artery for which she underwent fractional flow reserve evaluation which was 0.86 and was not hemodynamically significant. He underwent angioplasty and stenting of a restenotic right coronary artery lesion. He is done well since then with no chest pain or shortness of breath or paroxysmal nocturnal dyspnea he is not able to exert himself much because of other noncardiac issues. He has had some bilateral lower extremity edema and some shortness of breath with activity. His laboratory tests have been reviewed and he is noted to have had a drop in his hemoglobin. Past Medical History Allergies/Adverse Reactions: Allergies carisoprodol Allergy (Verified 02/14/18 17:37) Other itraconazole Allergy (Verified 02/14/18 17:37) Other Home Medications: Ambulatory Orders Medication Instructions Recorded Clopidogrel Bisulfate [Plavix] 75 mg PO DAILY 01/14/13 Omeprazole [Prilosec] 20 mg PO DAILY 10/07/15 Aspirin E.C. [Ecotrin] 81 mg PO DAILY 03/08/17 Naproxen 375 mg PO BID PRN 03/08/17 Vitamin E 400 unit PO DAILY 03/08/17 metoprolol succinate ER 25 mg 12.5 mg PO QDAY #45 tab 06/15/17 tablet,extended release 24 hr lisinopril 10 mg tablet 10 mg PO QDAY #90 tab 08/03/17 Acetaminophen [Tylenol Extra 500 mg PO BID 02/14/18 Strength] Atorvastatin Calcium [Lipitor] 20 mg PO QHS 02/14/18 Duloxetine HCl 30 mg PO DAILY 02/14/18 Ferrous Gluconate 324 mg PO DAILY 02/14/18 Furosemide [Lasix] 40 mg PO DAILY 02/14/18 Multivit-Min/FA/Lycopen/Lutein 1 tab PO DAILY 02/14/18 [Centrum Silver Men Tablet] Nitroglycerin 0.4 mg PO PRN PRN 02/14/18 Past Medical History (Chronic Problems): Chronic Problems (Last Reviewed 02/14/18 @ 20:07 by Mario Sanchez MD) Essential (primary) hypertension (Chronic) Stenosis of femoral artery (Chronic) Right Femoral Artery PTCA/Stent 08/2012; angioplasty and stenting of the Rt SFA @ [facility] per Dr. Zapata; Stent to distal RSFA to popliteal, Stent Rt. Proximal SFA 10/23/13 Atherosclerotic heart disease of [place] coronary artery without angina pectoris (Chronic) PTCA/Stent to mid RCA 08/06/04; cutting balloon angioplasty with TAMERA to mid RCA 02/19; PTCA/Stent of focal instent stenosis of RCA 06/18/09; PCI/TAMERA to Ostial PDA and PCI-ISR RCA 09/03/13; PCi/TAMERA ISR of mid RCA 10/07/15; FFR mid LAD @ [facility] 10/08/15 GERD (gastroesophageal reflux disease) (Chronic) Hyperlipidemia (Chronic) Obstructive sleep apnea (Chronic) Peripheral vascular disease (Chronic) Surgical History: -, rotator cuff repair, tonsillectomy, - - *Family History Maternal Family History: Family History (Last Reviewed 02/14/18 @ 20:07 by Mario Sanchez MD) Mother CVA (cerebral vascular accident) Sister Hypertension Paternal Family History: Family History (Last Reviewed 02/14/18 @ 20:07 by Mario Sanchez MD) Mother CVA (cerebral vascular accident) Sister Hypertension Lives: Spouse/ Significant Other Smoking Status: Former smoker Tobacco Use: Non-smoker Alcohol: None Drugs: None Review of Systems - Review of Systems General: Denies: Fever Cardiovascular: Reports: Near Syncope, Syncope. Denies: Chest Discomfort, Shortness of Breath, Orthopnea, PND, Peripheral Edema, Palpitations, Lightheadedness, Dizziness Respiratory: Denies: Cough, Sputum Production, Hemoptysis Gastrointestinal: Denies: Hematemesis, Hematochezia, Melena Genitourinary: Denies: Dysuria, Hematuria Skin: Denies: Rash Neurological: Denies: Dizziness Psychiatric: Denies: Anxiety Endocrine: Denies: Unexplained Weight Loss Hematologic/ Lymphatic: Reports: Anemia Subjectve: Pleasant gentleman in no apparent distress Objective: Vital Signs Temp Pulse Resp BP Pulse Ox 97.9 F 63 11 L 116/68 97 02/15/18 06:10 02/15/18 06:14 02/15/18 06:10 02/15/18 06:14 02/15/18 06:10 Oxygen Delivery Method Room Air Weight: 121 lb 11.123 oz Body Mass Index (BMI) 19.6 Orthostatic Vital Signs Start: 02/14/18 21:18 Freq: q24h Status: Active Protocol: Activity Type Activity Date Activity User E-Sign Co-Sign Detail Recorded Client Recorded Date Recorded By Document 02/15/18 06:14 [facility] [id number] 02/15/18 06:15 [facility] [place]/15/18 06:14 Orthostatic Vitals Standing -Blood Pressure (90/60-120/80) 138/77 H -Extremity Use Left Arm -Pulse Rate (60-100) 82 Sitting -Blood Pressure (90/60-120/80) 129/75 H -Extremity Use Left Arm -Pulse Rate (60-100) 82 Lying -Blood Pressure (90/60-120/80) 116/68 -Extremity Use Left Arm -Pulse Rate (60-100) 63 Intake and Output for Last 24 Hours 02/13/18 02/14/18 02/15/18 23:59 23:59 23:59 Intake Total 720 / 720 100 / 100 Balance 720 / 720 100 / 100 General: Awake, Alert, Oriented x 3 HEENT: PERRL, EOMI, Sclera Non Icteric Neck: Supple, Good ROM, No Lymph Node Enlargement Lungs: Clear to auscultation Cardiovascular: Regular Rhythm, Normal S1, Normal S2, No Murmurs, No Rubs, No Gallops Vascular: No Carotid Bruits, Normal Femoral Pulses, Normal Radial Pulses, Normal Dorsalis Pedal Pulse, Normal Posterior Tibial Pulses Abdomen: Bowel Sounds Present, Soft, Non Tender, No HSM, No Organomegaly Extremities: No Cyanosis, No Clubbing, No edema Musculoskeletal: No Erythema, Arthritic Changes Skin: No Rashes Lymphatic: No Lymph Node Enlargement Neurological: No Focal Motor or Sensory Deficit Psych/Mental Status: Appropriate 02/14/18 17:45: WBC 5.6, RBC 3.51 L, Hgb 11.2 L, Hct 34.5 L, MCV 98.3 H, MCH 31.9, MCHC 32.5, RDW 14.5, RDW Differential 49.9 H, Plt Count 386, MPV 8.6, Immature Gran % (Auto) 0.000, Neut % (Auto) 69.8, Lymph % (Auto) 17.7 L, [place] % (Auto) 10.8 H, Eos % (Auto) 1.3, Baso % (Auto) 0.4, Absolute Neuts (auto) 3.9, Total Counted Not Reportable 02/14/18 17:45: PT 13.6, INR 1.0, APTT 24.3 02/14/18 17:45: Sodium 139, Potassium 3.3 L, Chloride 102, Carbon Dioxide 28.0, Anion Gap 9, BUN 29 H, Creatinine 1.20, Est GFR (MDRD) Af Amer 74, Est GFR (MDRD) Non-Af 61, BUN/Creatinine Ratio 24.2 H, Glucose 109 H, Calcium 8.8, Troponin I < 0.015 02/15/18 05:35: Sodium 142, Potassium 3.8, Chloride 105, Carbon Dioxide 29.0, Anion Gap 8, BUN 31 H, Creatinine 1.07, Est GFR (MDRD) Af Amer 85, Est GFR (MDRD) Non-Af 70, BUN/Creatinine Ratio 29.0 H, Glucose 88, Calcium 8.8 02/15/18 05:35: WBC 6.1, RBC 3.09 L, Hgb 9.8 L, Hct 30.1 L, MCV 97.4 H, MCH 31.7, MCHC 32.6, RDW 14.7 H, RDW Differential 52.8 H, Plt Count 284, MPV 8.7, Immature Gran % (Auto) 0.200, Neut % (Auto) 71.9 H, Lymph % (Auto) 14.7 L, [place] % (Auto) 10.9 H, Eos % (Auto) 2.1, Baso % (Auto) 0.2, Absolute Neuts (auto) 4.4, Total Counted Not Reportable Rhythm: EKG: Normal sinus rhythm with premature atrial complexes and a right bundle branch block pattern Assessment/Plan 1. Syncope * The etiology is unclear but it likely appears to be vagal in origin. He had had 2 episodes of diarrhea and is noted to be anemic. He does have a right bundle branch block which is chronic. I do not see any evidence of atrial fibrillation. * My recommendation will be to obtain an echocardiogram to assess his left ventricular function * Obtain stool guaiac as well as serial hemoglobin to exclude ongoing bleed especially as he is on aspirin and Plavix * At this time I do not think that a 30-day event monitor would be helpful. We may continue to monitor him over the next 24 hours to see whether there are any rhythm abnormalities noted. * 2. Coronary artery disease * Does have evidence of coronary artery disease but at this time it does not appear that there was any ischemic component to the above. * We will continue his current medications. * Also continue lipid-lowering medications. * 3. Peripheral vascular disease * Appears to be stable with regard to the above. * * Thank you for allowing me to participate in the care of your patient. Please don't hesitate to call if any issues arise
--- NOTE | 2018-02-15 08:50 | CASEMGMT ---
Copies of LW/POA in [facility], SW printed and will place in paper chart to be scanned into the summary tab. IMER Benavides, [employer] DES[employer] CONSULTANT
[2018-02-15] MEDS: DULoxetine Hcl 30 MG Capsule PO (10:44)
[2018-02-15] MEDS: Ferrous Gluconate 324 MG Tablet PO (10:44)
[2018-02-15] MEDS: Multivitamins,Ther W-Minerals Tablet 1 TABLET PO (10:44)
[2018-02-15] MEDS: Furosemide 40 MG Tablet PO (10:45)
[2018-02-15] MEDS: Clopidogrel Bisulfate 75 MG Tablet PO (10:45)
[2018-02-15] MEDS: Heparin Injection (Vial) 5,000 UNIT/ML VIAL 5000 UNIT SC (10:45)
[2018-02-15] MEDS: Pantoprazole Sodium 20 MG Tablet PO (10:45)
[2018-02-15] MEDS: Acetaminophen 500 MG Tablet PO (10:46)
[2018-02-15] MEDS: Vitamin E 400 UNITS Capsule PO (10:46)
[2018-02-15] MEDS: Metoprolol(XL)Succ 25 MG Tablet 12.5 MG PO (10:47)
[2018-02-15] MEDS: Fluticasone 0.05% 1 SPRAY NASAL.SRY NASAL (10:49)
--- NOTE | 2018-02-15 12:56 | EEG ---
- Electroencephalogram Date of service 02/15/18 This is an 18 channel electrode encephalogram performed utilizing the International 10-20 electrode placement protocol performed on this 82-year-old male who apparently lost consciousness in his kitchen and has newly diagnosed atrial fibrillation. Photic stimulation, hyperventilation and EKG reference leads were also obtained. Background activity is 8-12 Hz symmetrically in the posterior leads which attenuates with eye-opening. The patient remained awake throughout the recording without lateralizing or epileptiform changes. Hyperventilation is performed for 4 minutes with good effort with no lateralizing or epileptiform changes and the post hyperventilatory phase was unremarkable. EKG rhythm appears sinus during this recording. Photic stimulation generates a normal symmetric driving response. Impression: Normal awake electroencephalogram
--- NOTE | 2018-02-15 13:29 | DCINST_ITS ---
- Discharge Diagnoses Current Active Problems: Current Active and Chronic Problems (Last Reviewed 02/14/18 @ 20:07 by Mario Sanchez MD) Syncope (Acute) Enteritis (Acute) You will use the following diet at home:: Cardiac Your food should be the consistency of: Regular Your liquids should be the consistency of: Regular/Thin Discharge Activity: Return to Normal Activity Allergies/Adverse Reactions: Allergies carisoprodol Allergy (Verified 02/14/18 17:37) Other itraconazole Allergy (Verified 02/14/18 17:37) Other Medications to take at Discharge Clopidogrel Bisulfate [Plavix] 75 mg PO DAILY 01/14/13 Omeprazole [Prilosec] 20 mg PO DAILY 10/07/15 Aspirin E.C. [Ecotrin] 81 mg PO DAILY 03/08/17 Naproxen 375 mg PO BID PRN 03/08/17 Vitamin E 400 unit PO DAILY 03/08/17 metoprolol succinate ER 25 mg tablet,extended release 24 hr 12.5 mg PO QDAY #45 tab 06/15/17 lisinopril 10 mg tablet 10 mg PO QDAY #90 tab 08/03/17 Acetaminophen [Tylenol Extra Strength] 500 mg PO BID 02/14/18 Atorvastatin Calcium [Lipitor] 20 mg PO QHS 02/14/18 Duloxetine HCl 30 mg PO DAILY 02/14/18 Ferrous Gluconate 324 mg PO DAILY 02/14/18 Furosemide [Lasix] 40 mg PO DAILY 02/14/18 Multivit-Min/FA/Lycopen/Lutein [Centrum Silver Men Tablet] 1 tab PO DAILY 02/14/18 Nitroglycerin 0.4 mg PO PRN PRN 02/14/18 Primary Care Physician: Ryan Bran MD [Primary Care Provider] - Please follow up with your Primary Care Physician in: 1-2 weeks Test Results: Test results from this visit will be discussed in further detail at your follow- up appointment, if applicable. Proposed Discharge Date: 02/15/18
--- NOTE | 2018-02-15 16:08 | PCM.DC.SUM ---
<Laith Pettit - Last Filed: 02/15/18 16:08> Discharge Date and Diagnosis - Problem List Patient Problems: Active and Suspected Problems (Last Reviewed 02/14/18 @ 20:07 by Mario Sanchez MD) Syncope (Acute) Enteritis (Acute) Date of Admission: 02/14/18 Date of Discharge: 02/15/18 - Primary Discharge Diagnosis Active and Suspected Problems (Last Reviewed 02/14/18 @ 20:07 by Mario Sanchez MD) Syncope 2/2 dehydration 2/2 diarrhea and vasovagal syncope PAC's Hypokalemia Chronic anemia Depression Prior CAD with stents PAD with stents HTN - Secondary Discharge Diagnosis Chronic Problems (Last Reviewed 02/14/18 @ 20:07 by Mario Sanchez MD) Essential (primary) hypertension (Chronic) Stenosis of femoral artery (Chronic) Right Femoral Artery PTCA/Stent 08/2012; angioplasty and stenting of the Rt SFA @ [facility] per Dr. Zapata; Stent to distal RSFA to popliteal, Stent Rt. Proximal SFA 10/23/13 Atherosclerotic heart disease of [place] coronary artery without angina pectoris (Chronic) PTCA/Stent to mid RCA 08/06/04; cutting balloon angioplasty with TAMERA to mid RCA 02/19; PTCA/Stent of focal instent stenosis of RCA 06/18/09; PCI/TAMERA to Ostial PDA and PCI-ISR RCA 09/03/13; PCi/TAMERA ISR of mid RCA 10/07/15; FFR mid LAD @ [facility] 10/08/15 GERD (gastroesophageal reflux disease) (Chronic) Hyperlipidemia (Chronic) Obstructive sleep apnea (Chronic) Peripheral vascular disease (Chronic) Hospital Course and Treatment Imaging Results: EEG: Impression: Normal awake electroencephalogram CT/Brain/Head without Contrast IMPRESSION: Chronic involutional changes of the brain. Stable appearance. No hemorrhage. RAD/Chest 1 View (Portable) IMPRESSION: Degenerative changes, as described above. No demonstrated acute cardiopulmonary process. Consults: Cardiology : Luz Maria Operations: None Procedures: Electroencephalogram Summary of Care Provided: Hospital course: The patient is a 82 year old M with a pmhx of CAD, PAD, depression, chronic anemia, htn , who presented to the ER with c/o syncope while eating a spicy dinner. He had been having diarrhea at home leading up to the admission and did seem to be dehydrated with elevated BUN and low K. He had negative troponin. EKG showed PACs. Cardiology was consulted as there was concern for atrial fibrillation. Cardiology did not find evidence of Afib. He was kept on the monitor overnight. K was replaced. He had no significant events on tele. An EEG was obtained which was negative. His syncope was suspected 2/2 dehydration and vasovagal syncope. He was discharged home in stable condition, and should follow up with 1-2 weeks. This patient was seen by Laith Pettit PA-C under the supervision of Doctor Triston. [] Patient Problems: Active and Suspected Problems (Last Reviewed 02/14/18 @ 20:07 by Mario Sanchez MD) Syncope (Acute) Enteritis (Acute) - Physical Exam General: Alert, Oriented x3, Cooperative HEENT: Atraumatic, PERRLA, EOMI, Normocephalic Neck: Supple, No JVD, Negative Carotid Bruits Lungs: Clear to auscultation, Normal air movement Cardiovascular: No murmurs, Irregular Rate Abdomen: Bowel Sounds Present, Soft, Non Tender Extremities: No edema, Capillary Refill Less than 3 Seconds Skin: No rashes, No breakdown Musculoskeletal: No Tenderness to Palpation of Joints or Extremities Neurological: Cranial nerves II-XII grossly intact Psych/Mental Status: Normal Affect, Appropriate, Alert and oriented to time, place, person, mood and affect Vital Signs Temp Pulse Resp BP Pulse Ox 97.8 F 69 18 114/59 L 96 02/15/18 11:45 02/15/18 15:32 02/15/18 11:45 02/15/18 11:45 02/15/18 11:45 Oxygen Delivery Method Room Air Weight: 121 lb 11.123 oz Body Mass Index (BMI) 19.6 Orthostatic Vital Signs Start: 02/14/18 21:18 Freq: q24h Status: Active Protocol: Activity Type Activity Date Activity User E-Sign Co-Sign Detail Recorded Client Recorded Date Recorded By Document 02/15/18 06:14 [facility] [id number] 02/15/18 06:15 [facility] 02/15/18 06:14 Orthostatic Vitals Standing -Blood Pressure (90/60-120/80) 138/77 H -Extremity Use Left Arm -Pulse Rate (60-100) 82 Sitting -Blood Pressure (90/60-120/80) 129/75 H -Extremity Use Left Arm -Pulse Rate (60-100) 82 Lying -Blood Pressure (90/60-120/80) 116/68 -Extremity Use Left Arm -Pulse Rate (60-100) 63 Intake and Output for Last 24 Hours 02/13/18 02/14/18 02/15/18 23:59 23:59 23:59 Intake Total 720 / 720 580 / 580 Balance 720 / 720 580 / 580 Laboratory Tests Past 24 Hrs 02/14/18 02/14/18 02/14/18 17:45 17:45 17:45 WBC 5.6 RBC 3.51 L Hgb 11.2 L Hct 34.5 L MCV 98.3 H MCH 31.9 MCHC 32.5 RDW 14.5 RDW Differential 49.9 H Plt Count 386 MPV 8.6 Immature Gran % (Auto) 0.000 Neut % (Auto) 69.8 Lymph % (Auto) 17.7 L [place] % (Auto) 10.8 H Eos % (Auto) 1.3 Baso % (Auto) 0.4 Absolute Neuts (auto) 3.9 Absolute Lymphs (auto) 0.98 Total Counted Not Reportable PT 13.6 INR 1.0 APTT 24.3 Sodium 139 Potassium 3.3 L Chloride 102 Carbon Dioxide 28.0 Anion Gap 9 BUN 29 H Creatinine 1.20 Estim Creat Clear Calc 39.78 Est GFR (MDRD) Af Amer 74 Est GFR (MDRD) Non-Af 61 BUN/Creatinine Ratio 24.2 H Glucose 109 H Calcium 8.8 Troponin I < 0.015 02/15/18 02/15/18 05:35 05:35 WBC 6.1 RBC 3.09 L Hgb 9.8 L Hct 30.1 L MCV 97.4 H MCH 31.7 MCHC 32.6 RDW 14.7 H RDW Differential 52.8 H Plt Count 284 MPV 8.7 Immature Gran % (Auto) 0.200 Neut % (Auto) 71.9 H Lymph % (Auto) 14.7 L [place] % (Auto) 10.9 H Eos % (Auto) 2.1 Baso % (Auto) 0.2 Absolute Neuts (auto) 4.4 Absolute Lymphs (auto) 0.90 Total Counted Not Reportable PT INR APTT Sodium 142 Potassium 3.8 Chloride 105 Carbon Dioxide 29.0 Anion Gap 8 BUN 31 H Creatinine 1.07 Estim Creat Clear Calc 40.84 Est GFR (MDRD) Af Amer 85 Est GFR (MDRD) Non-Af 70 BUN/Creatinine Ratio 29.0 H Glucose 88 Calcium 8.8 Troponin I Discharge Diet: Low fat/ Low Cholesterol, 2000 mg Sodium Diet Discharge Activity: Return to Normal Activity Home Medications: Medications to take at Discharge Clopidogrel Bisulfate [Plavix] 75 mg PO DAILY 01/14/13 Omeprazole [Prilosec] 20 mg PO DAILY 10/07/15 Aspirin E.C. [Ecotrin] 81 mg PO DAILY 03/08/17 Naproxen 375 mg PO BID PRN 03/08/17 Vitamin E 400 unit PO DAILY 03/08/17 metoprolol succinate ER 25 mg tablet,extended release 24 hr 12.5 mg PO QDAY #45 tab 06/15/17 lisinopril 10 mg tablet 10 mg PO QDAY #90 tab 08/03/17 Acetaminophen [Tylenol Extra Strength] 500 mg PO BID 02/14/18 Atorvastatin Calcium [Lipitor] 20 mg PO QHS 02/14/18 Duloxetine HCl 30 mg PO DAILY 02/14/18 Ferrous Gluconate 324 mg PO DAILY 02/14/18 Furosemide [Lasix] 40 mg PO DAILY 02/14/18 Multivit-Min/FA/Lycopen/Lutein [Centrum Silver Men Tablet] 1 tab PO DAILY 02/14/18 Nitroglycerin 0.4 mg PO PRN PRN 02/14/18 Primary Care Physician: Radha Gill MD [Primary Care Provider] - Please follow up with your Primary Care Physician in: 1-2 weeks Please Follow Up With: RADHA GILL Disposition: Home Minutes spent on discharge:: 35 Patient Condition:: Stable Medical Necessity - Tobacco Use Smoking Status: Former smoker Tobacco Use: Non-smoker Meaningful Use Info Meaningful Use Diagnoses (Choose all that apply): None applicable <Makr Goldstein - Last Filed: 02/15/18 16:35> Discharge Date and Diagnosis - Primary Discharge Diagnosis Active and Suspected Problems (Last Reviewed 02/14/18 @ 20:07 by Mario Sanchez MD) Syncope (Acute) Enteritis (Acute) - Secondary Discharge Diagnosis Chronic Problems (Last Reviewed 02/14/18 @ 20:07 by Mario Sanchez MD) Essential (primary) hypertension (Chronic) Stenosis of femoral artery (Chronic) Right Femoral Artery PTCA/Stent 08/2012; angioplasty and stenting of the Rt SFA @ [facility] per Dr. Zapata; Stent to distal RSFA to popliteal, Stent Rt. Proximal SFA 10/23/13 Atherosclerotic heart disease of [place] coronary artery without angina pectoris (Chronic) PTCA/Stent to mid RCA 08/06/04; cutting balloon angioplasty with TAMERA to mid RCA 02/19; PTCA/Stent of focal instent stenosis of RCA 06/18/09; PCI/TAMERA to Ostial PDA and PCI-ISR RCA 09/03/13; PCi/TAMERA ISR of mid RCA 10/07/15; FFR mid LAD @ [facility] 10/08/15 GERD (gastroesophageal reflux disease) (Chronic) Hyperlipidemia (Chronic) Obstructive sleep apnea (Chronic) Peripheral vascular disease (Chronic) Hospital Course and Treatment Operations: None Procedures: Electroencephalogram Summary of Care Provided: Patient seen and examined independently. Data reviewed. I agree with the above note by the physician assistant commissioner. The patient is a 82 year old M presents with syncope. Patient had had some diarrhea that day and then daughter brought over some spicy food and while eating food became diaphoretic, unclear if it is related with the spicy foods or just because of the syncopal event and then passed out. Patient on her 1 workup here in the hospital that was unremarkable. Is my feeling that his symptoms were mediated. Likely related with some underlying gastro-and rhinitis and then perhaps compounded by the fact that he was eating spicy foods that led to the event. Patient underwent echocardiogram and EEG that were unremarkable. There was concern for atrial fibrillation but on my personal review of telemetry as well as EKGs showed no atrial fibrillation. Some of the EKGs did did have low amplitude so is difficult to filler picker some of the P waves but they were visible by looking at some the other leads. [] - Physical Exam General: Alert, Cooperative HEENT: Atraumatic, Normocephalic Lungs: Clear to auscultation, Normal air movement, No rhonchi, No wheeze Cardiovascular: Regular rate, Regular Rhythm, No murmurs Abdomen: Bowel Sounds Present, Soft, Non Tender Vital Signs Temp Pulse Resp BP Pulse Ox 36.6 C 69 18 114/59 L 96 02/15/18 11:45 02/15/18 15:32 02/15/18 11:45 02/15/18 11:45 02/15/18 11:45 Oxygen Delivery Method Room Air Weight: 55.2 kg Body Mass Index (BMI) 19.6 Orthostatic Vital Signs Start: 02/14/18 21:18 Freq: q24h Status: Active Protocol: Activity Type Activity Date Activity User E-Sign Co-Sign Detail Recorded Client Recorded Date Recorded By Document 02/15/18 06:14 [facility] [id number] 02/15/18 06:15 [facility] [place]/15/18 06:14 Orthostatic Vitals Standing -Blood Pressure (90/60-120/80) 138/77 H -Extremity Use Left Arm -Pulse Rate (60-100) 82 Sitting -Blood Pressure (90/60-120/80) 129/75 H -Extremity Use Left Arm -Pulse Rate (60-100) 82 Lying -Blood Pressure (90/60-120/80) 116/68 -Extremity Use Left Arm -Pulse Rate (60-100) 63 Intake and Output for Last 24 Hours 02/13/18 02/14/18 02/15/18 23:59 23:59 23:59 Intake Total 720 / 720 580 / 580 Balance 720 / 720 580 / 580 Laboratory Tests Past 24 Hrs 02/14/18 02/14/18 02/14/18 17:45 17:45 17:45 WBC 5.6 RBC 3.51 L Hgb 11.2 L Hct 34.5 L MCV 98.3 H MCH 31.9 MCHC 32.5 RDW 14.5 RDW Differential 49.9 H Plt Count 386 MPV 8.6 Immature Gran % (Auto) 0.000 Neut % (Auto) 69.8 Lymph % (Auto) 17.7 L [place] % (Auto) 10.8 H Eos % (Auto) 1.3 Baso % (Auto) 0.4 Absolute Neuts (auto) 3.9 Absolute Lymphs (auto) 0.98 Total Counted Not Reportable PT 13.6 INR 1.0 APTT 24.3 Sodium 139 Potassium 3.3 L Chloride 102 Carbon Dioxide 28.0 Anion Gap 9 BUN 29 H Creatinine 1.20 Estim Creat Clear Calc 39.78 Est GFR (MDRD) Af Amer 74 Est GFR (MDRD) Non-Af 61 BUN/Creatinine Ratio 24.2 H Glucose 109 H Calcium 8.8 Troponin I < 0.015 02/15/18 02/15/18 05:35 05:35 WBC 6.1 RBC 3.09 L Hgb 9.8 L Hct 30.1 L MCV 97.4 H MCH 31.7 MCHC 32.6 RDW 14.7 H RDW Differential 52.8 H Plt Count 284 MPV 8.7 Immature Gran % (Auto) 0.200 Neut % (Auto) 71.9 H Lymph % (Auto) 14.7 L [place] % (Auto) 10.9 H Eos % (Auto) 2.1 Baso % (Auto) 0.2 Absolute Neuts (auto) 4.4 Absolute Lymphs (auto) 0.90 Total Counted Not Reportable PT INR APTT Sodium 142 Potassium 3.8 Chloride 105 Carbon Dioxide 29.0 Anion Gap 8 BUN 31 H Creatinine 1.07 Estim Creat Clear Calc 40.84 Est GFR (MDRD) Af Amer 85 Est GFR (MDRD) Non-Af 70 BUN/Creatinine Ratio 29.0 H Glucose 88 Calcium 8.8 Troponin I Discharge Diet: Low fat/ Low Cholesterol, 2000 mg Sodium Diet Discharge Activity: Return to Normal Activity Disposition: Home Minutes spent on discharge:: 35 Patient Condition:: Stable Meaningful Use Info Meaningful Use Diagnoses (Choose all that apply): None applicable Code Visit OBSV E&M: 09508 Observation care discharge
--- NOTE | 2018-02-15 16:20 | DS.PCM_ITS ---
<Laith Pettit - Last Filed: 02/15/18 16:08> Discharge Date and Diagnosis - Problem List Patient Problems: Active and Suspected Problems (Last Reviewed 02/14/18 @ 20:07 by Mario Sanchez MD) Syncope (Acute) Enteritis (Acute) Date of Admission: 02/14/18 Date of Discharge: 02/15/18 - Primary Discharge Diagnosis Active and Suspected Problems (Last Reviewed 02/14/18 @ 20:07 by Mario Sanchez MD) Syncope 2/2 dehydration 2/2 diarrhea and vasovagal syncope PAC's Hypokalemia Chronic anemia Depression Prior CAD with stents PAD with stents HTN - Secondary Discharge Diagnosis Chronic Problems (Last Reviewed 02/14/18 @ 20:07 by Mario Sanchez MD) Essential (primary) hypertension (Chronic) Stenosis of femoral artery (Chronic) Right Femoral Artery PTCA/Stent 08/2012; angioplasty and stenting of the Rt SFA @ [facility] per Dr. Zapata; Stent to distal RSFA to popliteal, Stent Rt. Proximal SFA 10/23/13 Atherosclerotic heart disease of [place] coronary artery without angina pectoris (Chronic) PTCA/Stent to mid RCA 08/06/04; cutting balloon angioplasty with TAMERA to mid RCA 02/19; PTCA/Stent of focal instent stenosis of RCA 06/18/09; PCI/TAMERA to Ostial PDA and PCI-ISR RCA 09/03/13; PCi/TAMERA ISR of mid RCA 10/07/15; FFR mid LAD @ [facility] 10/08/15 GERD (gastroesophageal reflux disease) (Chronic) Hyperlipidemia (Chronic) Obstructive sleep apnea (Chronic) Peripheral vascular disease (Chronic) Hospital Course and Treatment Imaging Results: EEG: Impression: Normal awake electroencephalogram CT/Brain/Head without Contrast IMPRESSION: Chronic involutional changes of the brain. Stable appearance. No hemorrhage. RAD/Chest 1 View (Portable) IMPRESSION: Degenerative changes, as described above. No demonstrated acute cardiopulmonary process. Consults: Cardiology : Luz Maria Operations: None Procedures: Electroencephalogram Summary of Care Provided: Hospital course: The patient is a 82 year old M with a pmhx of CAD, PAD, depression, chronic anemia, htn , who presented to the ER with c/o syncope while eating a spicy dinner. He had been having diarrhea at home leading up to the admission and did seem to be dehydrated with elevated BUN and low K. He had negative troponin. EKG showed PACs. Cardiology was consulted as there was concern for atrial fibrillation. Cardiology did not find evidence of Afib. He was kept on the monitor overnight. K was replaced. He had no significant events on tele. An EEG was obtained which was negative. His syncope was suspected 2/2 dehydration and vasovagal syncope. He was discharged home in stable condition, and should follow up with 1-2 weeks. This patient was seen by Laith Pettit PA-C under the supervision of Doctor Triston. [] Patient Problems: Active and Suspected Problems (Last Reviewed 02/14/18 @ 20:07 by Mario Sanchez MD) Syncope (Acute) Enteritis (Acute) - Physical Exam General: Alert, Oriented x3, Cooperative HEENT: Atraumatic, PERRLA, EOMI, Normocephalic Neck: Supple, No JVD, Negative Carotid Bruits Lungs: Clear to auscultation, Normal air movement Cardiovascular: No murmurs, Irregular Rate Abdomen: Bowel Sounds Present, Soft, Non Tender Extremities: No edema, Capillary Refill Less than 3 Seconds Skin: No rashes, No breakdown Musculoskeletal: No Tenderness to Palpation of Joints or Extremities Neurological: Cranial nerves II-XII grossly intact Psych/Mental Status: Normal Affect, Appropriate, Alert and oriented to time, place, person, mood and affect Vital Signs Temp Pulse Resp BP Pulse Ox 97.8 F 69 18 114/59 L 96 02/15/18 11:45 02/15/18 15:32 02/15/18 11:45 02/15/18 11:45 02/15/18 11:45 Oxygen Delivery Method Room Air Weight: 121 lb 11.123 oz Body Mass Index (BMI) 19.6 Orthostatic Vital Signs Start: 02/14/18 21:18 Freq: q24h Status: Active Protocol: Activity Type Activity Date Activity User E-Sign Co-Sign Detail Recorded Client Recorded Date Recorded By Document 02/15/18 06:14 [facility] [id number] 02/15/18 06:15 RUP[facility] 02/15/18 06:14 Orthostatic Vitals Standing -Blood Pressure (90/60-120/80) 138/77 H -Extremity Use Left Arm -Pulse Rate (60-100) 82 Sitting -Blood Pressure (90/60-120/80) 129/75 H -Extremity Use Left Arm -Pulse Rate (60-100) 82 Lying -Blood Pressure (90/60-120/80) 116/68 -Extremity Use Left Arm -Pulse Rate (60-100) 63 Intake and Output for Last 24 Hours 02/13/18 02/14/18 02/15/18 23:59 23:59 23:59 Intake Total 720 / 720 580 / 580 Balance 720 / 720 580 / 580 Laboratory Tests Past 24 Hrs 02/14/18 02/14/18 02/14/18 17:45 17:45 17:45 WBC 5.6 RBC 3.51 L Hgb 11.2 L Hct 34.5 L MCV 98.3 H MCH 31.9 MCHC 32.5 RDW 14.5 RDW Differential 49.9 H Plt Count 386 MPV 8.6 Immature Gran % (Auto) 0.000 Neut % (Auto) 69.8 Lymph % (Auto) 17.7 L [place] % (Auto) 10.8 H Eos % (Auto) 1.3 Baso % (Auto) 0.4 Absolute Neuts (auto) 3.9 Absolute Lymphs (auto) 0.98 Total Counted Not Reportable PT 13.6 INR 1.0 APTT 24.3 Sodium 139 Potassium 3.3 L Chloride 102 Carbon Dioxide 28.0 Anion Gap 9 BUN 29 H Creatinine 1.20 Estim Creat Clear Calc 39.78 Est GFR (MDRD) Af Amer 74 Est GFR (MDRD) Non-Af 61 BUN/Creatinine Ratio 24.2 H Glucose 109 H Calcium 8.8 Troponin I < 0.015 02/15/18 02/15/18 05:35 05:35 WBC 6.1 RBC 3.09 L Hgb 9.8 L Hct 30.1 L MCV 97.4 H MCH 31.7 MCHC 32.6 RDW 14.7 H RDW Differential 52.8 H Plt Count 284 MPV 8.7 Immature Gran % (Auto) 0.200 Neut % (Auto) 71.9 H Lymph % (Auto) 14.7 L [place] % (Auto) 10.9 H Eos % (Auto) 2.1 Baso % (Auto) 0.2 Absolute Neuts (auto) 4.4 Absolute Lymphs (auto) 0.90 Total Counted Not Reportable PT INR APTT Sodium 142 Potassium 3.8 Chloride 105 Carbon Dioxide 29.0 Anion Gap 8 BUN 31 H Creatinine 1.07 Estim Creat Clear Calc 40.84 Est GFR (MDRD) Af Amer 85 Est GFR (MDRD) Non-Af 70 BUN/Creatinine Ratio 29.0 H Glucose 88 Calcium 8.8 Troponin I Discharge Diet: Low fat/ Low Cholesterol, 2000 mg Sodium Diet Discharge Activity: Return to Normal Activity Home Medications: Medications to take at Discharge Clopidogrel Bisulfate [Plavix] 75 mg PO DAILY 01/14/13 Omeprazole [Prilosec] 20 mg PO DAILY 10/07/15 Aspirin E.C. [Ecotrin] 81 mg PO DAILY 03/08/17 Naproxen 375 mg PO BID PRN 03/08/17 Vitamin E 400 unit PO DAILY 03/08/17 metoprolol succinate ER 25 mg tablet,extended release 24 hr 12.5 mg PO QDAY #45 tab 06/15/17 lisinopril 10 mg tablet 10 mg PO QDAY #90 tab 08/03/17 Acetaminophen [Tylenol Extra Strength] 500 mg PO BID 02/14/18 Atorvastatin Calcium [Lipitor] 20 mg PO QHS 02/14/18 Duloxetine HCl 30 mg PO DAILY 02/14/18 Ferrous Gluconate 324 mg PO DAILY 02/14/18 Furosemide [Lasix] 40 mg PO DAILY 02/14/18 Multivit-Min/FA/Lycopen/Lutein [Centrum Silver Men Tablet] 1 tab PO DAILY Nitroglycerin 0.4 mg PO PRN PRN 02/14/18 Primary Care Physician: Radha Gill MD [Primary Care Provider] - Please follow up with your Primary Care Physician in: 1-2 weeks Please Follow Up With: RADHA GILL Disposition: Home Minutes spent on discharge:: 35 Patient Condition:: Stable Medical Necessity - Tobacco Use Smoking Status: Former smoker Tobacco Use: Non-smoker Meaningful Use Info Meaningful Use Diagnoses (Choose all that apply): None applicable <Mark Goldstein - Last Filed: 02/15/18 16:35> Discharge Date and Diagnosis - Primary Discharge Diagnosis Active and Suspected Problems (Last Reviewed 02/14/18 @ 20:07 by Mario Sanchez MD) Syncope (Acute) Enteritis (Acute) - Secondary Discharge Diagnosis Chronic Problems (Last Reviewed 02/14/18 @ 20:07 by Mario Sanchez MD) Essential (primary) hypertension (Chronic) Stenosis of femoral artery (Chronic) Right Femoral Artery PTCA/Stent 08/2012; angioplasty and stenting of the Rt SFA @ [facility] per Dr. Zapata; Stent to distal RSFA to popliteal, Stent Rt. Proximal SFA 10/23/13 Atherosclerotic heart disease of [place] coronary artery without angina pectoris (Chronic) PTCA/Stent to mid RCA 08/06/04; cutting balloon angioplasty with TAMERA to mid RCA 02/19; PTCA/Stent of focal instent stenosis of RCA 06/18/09; PCI/TAMERA to Ostial PDA and PCI-ISR RCA 09/03/13; PCi/TAMERA ISR of mid RCA 10/07/15; FFR mid LAD @ [facility] 10/08/15 GERD (gastroesophageal reflux disease) (Chronic) Hyperlipidemia (Chronic) Obstructive sleep apnea (Chronic) Peripheral vascular disease (Chronic) Hospital Course and Treatment Operations: None Procedures: Electroencephalogram Summary of Care Provided: Patient seen and examined independently. Data reviewed. I agree with the above note by the physician assistant import manager. The patient is a 82 year old M presents with syncope. Patient had had some diarrhea that day and then daughter brought over some spicy food and while eating food became diaphoretic, unclear if it is related with the spicy foods or just because of the syncopal event and then passed out. Patient on her 1 workup here in the hospital that was unremarkable. Is my feeling that his symptoms were mediated. Likely related with some underlying gastro-and rhinitis and then perhaps compounded by the fact that he was eating spicy foods that led to the event. Patient underwent echocardiogram and EEG that were unremarkable. There was concern for atrial fibrillation but on my personal review of telemetry as well as EKGs showed no atrial fibrillation. Some of the EKGs did did have low amplitude so is difficult to picker box operator some of the P waves but they were visible by looking at some the other leads. [] - Physical Exam General: Alert, Cooperative HEENT: Atraumatic, Normocephalic Lungs: Clear to auscultation, Normal air movement, No rhonchi, No wheeze Cardiovascular: Regular rate, Regular Rhythm, No murmurs Abdomen: Bowel Sounds Present, Soft, Non Tender Vital Signs Temp Pulse Resp BP Pulse Ox 36.6 C 69 18 114/59 L 96 02/15/18 11:45 02/15/18 15:32 02/15/18 11:45 02/15/18 11:45 02/15/18 11:45 Oxygen Delivery Method Room Air Weight: 55.2 kg Body Mass Index (BMI) 19.6 Orthostatic Vital Signs Start: 02/14/18 21:18 Freq: q24h Status: Active Protocol: Activity Type Activity Date Activity User E-Sign Co-Sign Detail Recorded Client Recorded Date Recorded By Document 02/15/18 06:14 [facility] [id number] 02/15/18 06:15 [facility] [place]/15/18 06:14 Orthostatic Vitals Standing -Blood Pressure (90/60-120/80) 138/77 H -Extremity Use Left Arm -Pulse Rate (60-100) 82 Sitting -Blood Pressure (90/60-120/80) 129/75 H -Extremity Use Left Arm -Pulse Rate (60-100) 82 Lying -Blood Pressure (90/60-120/80) 116/68 -Extremity Use Left Arm -Pulse Rate (60-100) 63 Intake and Output for Last 24 Hours 02/13/18 02/14/18 02/15/18 23:59 23:59 23:59 Intake Total 720 / 720 580 / 580 Balance 720 / 720 580 / 580 Laboratory Tests Past 24 Hrs 02/14/18 02/14/18 02/14/18 17:45 17:45 17:45 WBC 5.6 RBC 3.51 L Hgb 11.2 L Hct 34.5 L MCV 98.3 H MCH 31.9 MCHC 32.5 RDW 14.5 RDW Differential 49.9 H Plt Count 386 MPV 8.6 Immature Gran % (Auto) 0.000 Neut % (Auto) 69.8 Lymph % (Auto) 17.7 L [place] % (Auto) 10.8 H Eos % (Auto) 1.3 Baso % (Auto) 0.4 Absolute Neuts (auto) 3.9 Absolute Lymphs (auto) 0.98 Total Counted Not Reportable PT 13.6 INR 1.0 APTT 24.3 Sodium 139 Potassium 3.3 L Chloride 102 Carbon Dioxide 28.0 Anion Gap 9 BUN 29 H Creatinine 1.20 Estim Creat Clear Calc 39.78 Est GFR (MDRD) Af Amer 74 Est GFR (MDRD) Non-Af 61 BUN/Creatinine Ratio 24.2 H Glucose 109 H Calcium 8.8 Troponin I < 0.015 02/15/18 02/15/18 05:35 05:35 WBC 6.1 RBC 3.09 L Hgb 9.8 L Hct 30.1 L MCV 97.4 H MCH 31.7 MCHC 32.6 RDW 14.7 H RDW Differential 52.8 H Plt Count 284 MPV 8.7 Immature Gran % (Auto) 0.200 Neut % (Auto) 71.9 H Lymph % (Auto) 14.7 L [place] % (Auto) 10.9 H Eos % (Auto) 2.1 Baso % (Auto) 0.2 Absolute Neuts (auto) 4.4 Absolute Lymphs (auto) 0.90 Total Counted Not Reportable PT INR APTT Sodium 142 Potassium 3.8 Chloride 105 Carbon Dioxide 29.0 Anion Gap 8 BUN 31 H Creatinine 1.07 Estim Creat Clear Calc 40.84 Est GFR (MDRD) Af Amer 85 Est GFR (MDRD) Non-Af 70 BUN/Creatinine Ratio 29.0 H Glucose 88 Calcium 8.8 Troponin I Discharge Diet: Low fat/ Low Cholesterol, 2000 mg Sodium Diet Discharge Activity: Return to Normal Activity Disposition: Home Minutes spent on discharge:: 35 Patient Condition:: Stable Meaningful Use Info Meaningful Use Diagnoses (Choose all that apply): None applicable Code Visit OBSV E&M: 20080 Observation care discharge
== END 2018-02-15 13:29 | disposition home or self-care (01) ==
LOC: ED 18:34 → PCU 20:02
PROVIDERS: Admitting Provider Hospitalist; Emergency Provider Emergency Medicine; Family Provider Family Medicine; PCP Family Medicine; Referring Provider Hospitalist
DX: R55 Syncope and collapse (principal); K52.9 Noninfective gastroenteritis and colitis, unspecified; E87.6 Hypokalemia; E86.0 Dehydration; I25.10 Atherosclerotic heart disease of native coronary artery without angina pectoris; I73.9 Peripheral vascular disease, unspecified; I10 Essential (primary) hypertension; G47.33 Obstructive sleep apnea (adult) (pediatric); K21.9 Gastro-esophageal reflux disease without esophagitis; E78.5 Hyperlipidemia, unspecified; Z95.5 Presence of coronary angioplasty implant and graft; Z79.899 Other long term (current) drug therapy; Z79.02 Long term (current) use of antithrombotics/antiplatelets; Z79.82 Long term (current) use of aspirin; Z87.891 Personal history of nicotine dependence; Z85.46 Personal history of malignant neoplasm of prostate
CPT/HCPCS: 36415; 70450; 71045; 80048; 84484; 85025; 85610; 85730; 93005; 93306; 95819; 96360; 96361; 96372; 97162; 97165; 97802; 99218; 99285; J7030; A4216; G0378

== ENCOUNTER → 2018-02-20 10:09 | Outpatient (CLI) | payer MEDICARE, OTHER, SELFPAY ==
[2018-02-20 12:16] LABS: Hematocrit 34.5 % (40-54); Hemoglobin 11.1 g/dl (13.0-16.5); Mean Corp Hgb Conc 32.2 g/gl (32-36); Mean Corpuscular Hgb 31.9 pg (27.0-32.0); Mean Corpuscular Volume 99.1 fL (80-94); Mean Platelet Vol. 8.7 fl (6.2-12.0); Platelet Count 370 K/mm3 (150-450); RBC Distribution Width CV 14.9 % (11.6-14.6); RBC Distribution Width SD 53.7 fl (35.1-43.9); Red Blood Count 3.48 M/mm3 (4.6-6.2); White Blood Count 6.2 K/mm3 (4.4-11.0)
[2018-02-20 12:17] LABS: Scan Indicated on CBC? Y/N NO
== END ==
PROVIDERS: Family Provider Family Medicine; PCP Family Medicine; Referring Provider Physician Assistant; Visit Provider Physician Assistant
DX: D64.9 Anemia, unspecified (principal)
CPT/HCPCS: 36415; 85027

== ENCOUNTER 2018-03-12 16:15 | Outpatient (RCR) | payer MEDICARE, OTHER, SELFPAY ==
[2018-03-05 15:21] VITALS: BP 149/87; PULSE 87; RESP 16; TEMP 36.5
--- NOTE | 2018-03-05 16:20 | PCM.WC.HP ---
(1) PAD (peripheral artery disease) Status: Chronic Current Visit: Yes Code(s): I73.9 - Peripheral vascular disease, unspecified (2) Urinary incontinence Status: Chronic Current Visit: No Code(s): R32 - Unspecified urinary incontinence (3) Fecal incontinence Status: Chronic Current Visit: No Code(s): R15.9 - Full incontinence of feces (4) History of coronary artery stent placement Status: Chronic Current Visit: No Code(s): Z95.5 - Presence of coronary angioplasty implant and graft Comment: PTCA/Stent to mid RCA 08/06/04; cutting balloon angioplasty with TAMERA to mid RCA 02/19; PTCA/Stent of focal instent stenosis of RCA 06/18/09; PCI/TAMERA to Ostial PDA and PCI-ISR RCA 09/03/13; PCi/TAMERA ISR of mid RCA 10/07/15; FFR mid LAD @ [facility] 10/08/15 (5) Essential (primary) hypertension Status: Chronic Current Visit: No Code(s): I10 - Essential (primary) hypertension (6) Chronic pain of right heel Status: Acute Current Visit: Yes Code(s): M79.671 - Pain in right foot; G89.29 - Other chronic pain (7) Ulcer of right heel Status: Chronic Current Visit: Yes Qualifiers: Non-pressure ulcer stage: with fat layer exposed Qualified Code(s): L97.412 - Non-pressure chronic ulcer of right heel and midfoot with fat layer exposed Code(s): L97.419 - Non-pressure chronic ulcer of right heel and midfoot with unspecified severity (8) Atherosclerotic heart disease of [place] coronary artery without angina pectoris Status: Chronic Current Visit: No Qualifiers: Code(s): I25.10 - Atherosclerotic heart disease of [place] coronary artery without angina pectoris Comment: PTCA/Stent to mid RCA 08/06/04; cutting balloon angioplasty with TAMERA to mid RCA 02/19; PTCA/Stent of focal instent stenosis of RCA 06/18/09; PCI/TAMERA to Ostial PDA and PCI-ISR RCA 09/03/13; PCi/TAMERA ISR of mid RCA 10/07/15; FFR mid LAD @ [facility] 10/08/15 (9) GERD (gastroesophageal reflux disease) Status: Chronic Current Visit: No Code(s): K21.9 - Gastro-esophageal reflux disease without esophagitis (10) Hyperlipidemia Status: Chronic Current Visit: No Qualifiers: Code(s): E78.5 - Hyperlipidemia, unspecified (11) Obstructive sleep apnea Status: Chronic Current Visit: No Code(s): G47.33 - Obstructive sleep apnea (adult) (pediatric) (12) Peripheral vascular disease Status: Chronic Current Visit: Yes Code(s): I73.9 - Peripheral vascular disease, unspecified History of Present Illness Date of Service: 03/05/18 Chief Complaint: Chronic right heel ulceration History of Wound: This is an 82-year-old male with a long-standing history of ulceration of the right heel. He has been previously treated at our facility for a similar ulceration. The ulceration has been present for at least several years, and has never completely healed, according to the patient and his . The patient does have special shoes, with inserts, that have recently been obtained from [employer]. 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 The patient also has known peripheral arterial occlusive disease, and has previously undergone right lower extremity revascularization on 2 occasions, both of which were performed endoluminal E. In August 2012, a stent was placed in the right superficial femoral artery at [facility] by Dr. Leonard. In 2013, a stent was placed in the right popliteal artery by Dr. Nate Rose. Patient has been recently using OptiFoam for the ulceration. He is ambulatory. He sleeps on a flat surface at night, typically on his back. Past Medical History Past Medical History: Chronic Problems (Last Reviewed 02/14/18 @ 20:07 by Mario Sanchez MD) PAD (peripheral artery disease) (Chronic) Urinary incontinence (Chronic) Fecal incontinence (Chronic) History of coronary artery stent placement (Chronic 10/07/15) PTCA/Stent to mid RCA 08/06/04; cutting balloon angioplasty with TAMERA to mid RCA 02/19; PTCA/Stent of focal instent stenosis of RCA 06/18/09; PCI/TAMERA to Ostial PDA and PCI-ISR RCA 09/03/13; PCi/TAMERA ISR of mid RCA 10/07/15; FFR mid LAD @ [facility] 10/08/15 Essential (primary) hypertension (Chronic) Ulcer of right heel (Chronic) Stenosis of femoral artery (Chronic) Right Femoral Artery PTCA/Stent 08/2012; angioplasty and stenting of the Rt SFA @ [facility] per Dr. Zapata; Stent to distal RSFA to popliteal, Stent Rt. Proximal SFA 10/23/13 Atherosclerotic heart disease of [place] coronary artery without angina pectoris (Chronic) PTCA/Stent to mid RCA 08/06/04; cutting balloon angioplasty with TAMERA to mid RCA 02/19; PTCA/Stent of focal instent stenosis of RCA 06/18/09; PCI/TAMERA to Ostial PDA and PCI-ISR RCA 09/03/13; PCi/TAMERA ISR of mid RCA 10/07/15; FFR mid LAD @ [facility] 10/08/15 GERD (gastroesophageal reflux disease) (Chronic) Hyperlipidemia (Chronic) Obstructive sleep apnea (Chronic) Peripheral vascular disease (Chronic) Past Medical History: Patient has a history of peripheral arterial occlusive disease, having undergone several right lower extremity revascularizations in the past. He also has a history of hypertension, hyperlipidemia, urinary incontinence, fecal incontinence, and prostate cancer. His history is negative for diabetes mellitus, cerebrovascular accident, pulmonary disease, renal disease, and thyroid disease. Surgical History: - - The patient is undergone lumbar surgery in the past. He has a history of bilateral shoulder surgery. He has had coronary stents placed, and to proceed stenting was performed in the right lower extremity., rotator cuff repair, tonsillectomy, - Allergies/Adverse Reactions: Allergies carisoprodol Allergy (Verified 02/14/18 17:37) Other itraconazole Allergy (Verified 02/14/18 17:37) Other Home Medications: Ambulatory Orders Medication Instructions Recorded Omeprazole [Prilosec] 20 mg PO DAILY 10/07/15 Aspirin E.C. [Ecotrin] 81 mg PO DAILY 03/08/17 Naproxen 375 mg PO BID PRN 03/08/17 Vitamin E 400 unit PO DAILY 03/08/17 metoprolol succinate ER 25 mg 12.5 mg PO QDAY #45 tab 06/15/17 tablet,extended release 24 hr Acetaminophen [Tylenol Extra 500 mg PO BID 02/14/18 Strength] Atorvastatin Calcium [Lipitor] 20 mg PO QHS 02/14/18 Duloxetine HCl 30 mg PO DAILY 02/14/18 Ferrous Gluconate 324 mg PO DAILY 02/14/18 Furosemide [Lasix] 20 mg PO DAILY 02/14/18 Multivit-Min/FA/Lycopen/Lutein 1 tab PO DAILY 02/14/18 [Centrum Silver Men Tablet] Nitroglycerin 0.4 mg PO PRN PRN 02/14/18 clopidogrel 75 mg tablet 75 mg PO DAILY #90 tab 03/05/18 Social History: 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 He is . He denies use of alcohol and tobacco products. Lives: Spouse/ Significant Other Smoking Status: Never smoker Tobacco Use: Non-smoker Alcohol: None Drugs: None Review of Systems Constitutional: Denies: Chills, Fever, Weight Change Eyes: Denies: Pain, Vision Change HEENT: Denies: Difficulty Hearing, Difficulty Swallowing, Sinus Congestion Cardiovascular: Denies: Chest Pain, Palpitations Respiratory: Denies: Cough, Shortness of Breath Gastrointestinal: Denies: Diarrhea, Nausea, Vomiting Genitourinary: Denies: Dysuria, Hematuria Endocrine: Denies: Heat/ Cold Intolerance, Polydipsia, Polyuria Hematologic/ Lymphatic: Denies: Easy Bruising, Easy Bleeding - Physical Exam Vital Signs Temp Pulse Resp BP 97.7 F L 87 16 149/87 H 03/05/18 15:21 03/05/18 15:21 03/05/18 15:21 03/05/18 15:21 General: Alert, Oriented x3, Cooperative, No apparent distress, Well developed, Well nourished HEENT: Atraumatic, PERRLA, EOMI, Normocephalic Oral: Moist Mucosa Neck: No JVD, Negative Carotid Bruits, Negative Hepatojugular Reflux, No Nodes, No Nuchal Rigidity, Trachea Midline Lungs: Clear to auscultation, Normal air movement, No rhonchi, No wheeze, No rales Cardiovascular: Regular rate, Regular Rhythm, Normal S1, Normal S2, No murmurs Abdomen: Soft, Non Tender, Non-Distended Extremities: No clubbing, No cyanosis, No edema, No Calf Tenderness, - - There is no significant swelling or edema in the patient's lower extremities. There is a very small ulceration on the right heel, located on the plantar surface, but lateral. Dimensions are documented elsewhere. There is no obvious sign of infection or cellulitis. The base of the ulceration is generally pink and healthy in appearance, with a small amount of bioburden. Of note, there is significant scaly dermatitis on the right heel surrounding the ulceration. Wound Measurements and Assessment WC - Nurse 1 - General Ulcer Measurement Start: 03/05/18 15:20 Freq: Status: Active Protocol: Activity Type Activity Date Activity User E-Sign Co-Sign Detail Recorded Client Recorded Date Recorded By Document 03/05/18 15:21 CS [id number] 03/05/18 15:33 CS 03/05/18 15:21 Wound Center Nurse 1 [Ulcer Assessment] #6 RIGHT HEEL -Combined with other wound No -Current Size (cm) - Length 0.2 -Current Size (cm) - Width 0.2 -Current Size (cm) - Depth 0.1 -Total Square Cm 0.04 -Date of Last Picture (Recall this 03/05/18 field) -Photo Taken Yes -Epithelialization None Present -Tunneling No -Undermining/Tunneling No -Circular Undermining No -Exudate Amt Small (1-33%) -Exudate Type Serosanguineous -Wound Margin Distinct, Outline Attached -Granulation Amt Medium (34-66%) -Granulation Quality Pale [place] -Slough/Fibrin Yes -Necrosis Amt Large (67-100%) -Necrotic Tissue Type Adherent Slough -Structure Exposed None/Limited to Skin Breakdown -Texture (Michelle-wound Skin Appearance) No Abnormality Assessed -Moisture (Michelle-wound Skin Appearance Assessed ) Dry/Scaly -Color (Michelle-wound Skin Appearance) Assessed -Temperature (Michelle-wound Skin No Abnormality Appearance) (Pt Warm) -Tenderness on Palpation (Michelle-wound No Skin Appearance) -Ulcer Cleansing Rinsed/ Irrigated with Saline -Foul Odor after Cleansing No -Anesthetic Used 4% Lidocaine Solution [Edema Assessment] -Lower Limb Edema Present No -Right Calf (cm) 26.5 -Right Ankle (cm) 18.5 -Left Calf (cm) 28 -Left Ankle (cm) 18.5 WC - Nurse 2 - General Ulcer CM Notes Start: 03/05/18 15:20 Freq: Status: Active Protocol: Activity Type Activity Date Activity User E-Sign Co-Sign Detail Recorded Client Recorded Date Recorded By Document 03/05/18 15:50 DV [id number] 03/05/18 16:00 DV 03/05/18 15:50 Wound Center Nurse 2 [Procedure/Treatment] #6 RIGHT HEEL -Time 15:58 -Correct Patient Yes -Correct Side, Site, Position Yes -Correct Procedure Yes -Procedure Performed Yes -Type of Procedure Debridement -Clinical Debridement Subcutaneous -Post Debridement Size (cm) - Length 0.4 -Post Debridement Size (cm) - Width 0.4 -Post Debridement Size (cm) - Depth 0.2 -Total Square Cm 0.16 -Wound/Ulcer Outcome Not Healed -Ulcer Cleansing Rinsed/ Irrigated with Saline -Foul Odor after Cleansing No -Bioengineered Tissue No -Bleeding Controlled with Pressure -Treatment Response Procedure Tolerated Well [See Physician Procedure note for Specifics] Pain Scale: 0-10 Numeric [Pain] -Is Patient Pain Free? Yes Neurological: Cranial nerves II-XII grossly intact, Neuro grossly intact Psych/Mental Status: Normal Affect, Alert and oriented to time, place, person, mood and affect Debridement Note Post-Debridement Measurements/Treatment WC - Nurse 2 - General Ulcer CM Notes Start: 03/05/18 15:20 Freq: Status: Active Protocol: Activity Type Activity Date Activity User E-Sign Co-Sign Detail Recorded Client Recorded Date Recorded By Document 03/05/18 15:50 DV [id number] 03/05/18 16:00 DV 03/05/18 15:50 Wound Center Nurse 2 #6 RIGHT HEEL -Time 15:58 -Correct Patient Yes -Correct Side, Site, Position Yes -Correct Procedure Yes -Procedure Performed Yes -Type of Procedure Debridement -Clinical Debridement Subcutaneous -Post Debridement Size (cm) - Length 0.4 -Post Debridement Size (cm) - Width 0.4 -Post Debridement Size (cm) - Depth 0.2 -Total Square Cm 0.16 -Wound/Ulcer Outcome Not Healed -Ulcer Cleansing Rinsed/ Irrigated with Saline -Foul Odor after Cleansing No -Bioengineered Tissue No -Bleeding Controlled with Pressure -Treatment Response Procedure Tolerated Well Pain Scale: 0-10 Numeric Is Patient Pain Free? Yes Laterality: Right - He will Type of Debridement: Excisional debridement Anesthesia Used: 5% Lidocaine Gel Depth: Down to and including healthy tissue, in the subcutaneous layer Percentage of wound debrided: 100 Instrument Used: 7mm curette Severity: Fat Layer Exposed Amount of bleeding with debridement: Mild Bleeding Controlled with: Compression and gauze Patient tolerated procedure well Assessment/Plan Active Problems (Last Reviewed 02/14/18 @ 20:07 by Mario Sanchez MD) PAD (peripheral artery disease) (Chronic) Chronic pain of right heel (Acute) Ulcer of right heel (Chronic) Peripheral vascular disease (Chronic) Assessment: This is an 82-year-old male with a long-standing history of ulceration of the right heel. He has been previously treated at this facility, without complete healing of his ulceration. Based upon appearances, there is also an apparent dermatological abnormality of the right heel, with scaly dermatitic changes. Patient has gone recent laboratory studies, with results as follows: White blood count 6.2, hemoglobin 11.1, matter crit 34.5, platelets 370,000, sodium 142, potassium 3.8, BUN 31, creatinine 1.07, glucose 88, total protein 7.3, albumin 3.7, prealbumin 30.9. The patient is also known to have history of peripheral arterial occlusive disease in the right lower extremity, for which she is undergone 2 previous endoluminal revascularizations. Plan: We are to implement offloading measures to the right heel. These measures have been discussed with the patient and his . He is to continue wearing his new shoe with insert which was obtained from [employer]. He is to take measures during sleeping hours to avoid resting his heel on the bed surface. Laboratory results have been reviewed. We are to also obtain a noninvasive lower extremity arterial study, with only ABIs, as placement of blood pressure cuffs at a higher level is to be avoided given the patient's prior stenting procedures. Collagenase Santyl has been prescribed, and will be used topically on the ulceration of the right heel on a daily basis. Lotrisone 1% cream is to be applied topically to the surrounding scaly dermatitic skin. The patient will return in 1 week for reassessment. Influenza vaccine was not administered today. Patient is not a smoker. He weighs 56.28 kg. He stands 1.6 cm in height. His BMI is 20. He is not overweight or obese.
--- NOTE | 2018-03-05 16:27 | HP.PCM_ITS ---
(1) PAD (peripheral artery disease) Status: Chronic Current Visit: Yes Code(s): I73.9 - Peripheral vascular disease, unspecified (2) Urinary incontinence Status: Chronic Current Visit: No Code(s): R32 - Unspecified urinary incontinence (3) Fecal incontinence Status: Chronic Current Visit: No Code(s): R15.9 - Full incontinence of feces (4) History of coronary artery stent placement Status: Chronic Current Visit: No Code(s): Z95.5 - Presence of coronary angioplasty implant and graft Comment: PTCA/Stent to mid RCA 08/06/04; cutting balloon angioplasty with TAMERA to mid RCA 02/19; PTCA/Stent of focal instent stenosis of RCA 06/18/09; PCI/TAMERA to Ostial PDA and PCI-ISR RCA 09/03/13; PCi/TAMERA ISR of mid RCA 10/07/15; FFR mid LAD @ [facility] 10/08/15 (5) Essential (primary) hypertension Status: Chronic Current Visit: No Code(s): I10 - Essential (primary) hypertension (6) Chronic pain of right heel Status: Acute Current Visit: Yes Code(s): M79.671 - Pain in right foot; G89.29 - Other chronic pain (7) Ulcer of right heel Status: Chronic Current Visit: Yes Qualifiers: Non-pressure ulcer stage: with fat layer exposed Qualified Code(s): L97.412 - Non-pressure chronic ulcer of right heel and midfoot with fat layer exposed Code(s): L97.419 - Non-pressure chronic ulcer of right heel and midfoot with unspecified severity (8) Atherosclerotic heart disease of [place] coronary artery without angina pectoris Status: Chronic Current Visit: No Qualifiers: Code(s): I25.10 - Atherosclerotic heart disease of [place] coronary artery without angina pectoris Comment: PTCA/Stent to mid RCA 08/06/04; cutting balloon angioplasty with TAMERA to mid RCA 02/19; PTCA/Stent of focal instent stenosis of RCA 06/18/09; PCI/TAMERA to Ostial PDA and PCI-ISR RCA 09/03/13; PCi/TAMERA ISR of mid RCA 10/07/15; FFR mid LAD @ [facility] 10/08/15 (9) GERD (gastroesophageal reflux disease) Status: Chronic Current Visit: No Code(s): K21.9 - Gastro-esophageal reflux disease without esophagitis (10) Hyperlipidemia Status: Chronic Current Visit: No Qualifiers: Code(s): E78.5 - Hyperlipidemia, unspecified (11) Obstructive sleep apnea Status: Chronic Current Visit: No Code(s): G47.33 - Obstructive sleep apnea (adult) (pediatric) (12) Peripheral vascular disease Status: Chronic Current Visit: Yes Code(s): I73.9 - Peripheral vascular disease, unspecified History of Present Illness Date of Service: 03/05/18 Chief Complaint: Chronic right heel ulceration History of Wound: This is an 82-year-old male with a long-standing history of ulceration of the right heel. He has been previously treated at our facility for a similar ulceration. The ulceration has been present for at least several years, and has never completely healed, according to the patient and his . The patient does have special shoes, with inserts, that have recently been obtained from [employer]. 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 The patient also has known peripheral arterial occlusive disease, and has previously undergone right lower extremity revascularization on 2 occasions, both of which were performed endoluminal E. In August 2012, a stent was placed in the right superficial femoral artery at [facility] by Dr. Leonard. In 2013, a stent was placed in the right popliteal artery by Dr. Nate Rose. Patient has been recently using OptiFoam for the ulceration. He is ambulatory. He sleeps on a flat surface at night, typically on his back. Past Medical History Past Medical History: Chronic Problems (Last Reviewed 02/14/18 @ 20:07 by Mario Sanchez MD) PAD (peripheral artery disease) (Chronic) Urinary incontinence (Chronic) Fecal incontinence (Chronic) History of coronary artery stent placement (Chronic 10/07/15) PTCA/Stent to mid RCA 08/06/04; cutting balloon angioplasty with TAMERA to mid RCA 02/19; PTCA/Stent of focal instent stenosis of RCA 06/18/09; PCI/TAMERA to Ostial PDA and PCI-ISR RCA 09/03/13; PCi/TAMERA ISR of mid RCA 10/07/15; FFR mid LAD @ [facility] 10/08/15 Essential (primary) hypertension (Chronic) Ulcer of right heel (Chronic) Stenosis of femoral artery (Chronic) Right Femoral Artery PTCA/Stent 08/2012; angioplasty and stenting of the Rt SFA @ [facility] per Dr. Zapata; Stent to distal RSFA to popliteal, Stent Rt. Proximal SFA 10/23/13 Atherosclerotic heart disease of [place] coronary artery without angina pectoris (Chronic) PTCA/Stent to mid RCA 08/06/04; cutting balloon angioplasty with TAMERA to mid RCA 02/19; PTCA/Stent of focal instent stenosis of RCA 06/18/09; PCI/TAMERA to Ostial PDA and PCI-ISR RCA 09/03/13; PCi/TAMERA ISR of mid RCA 10/07/15; FFR mid LAD @ [facility] 10/08/15 GERD (gastroesophageal reflux disease) (Chronic) Hyperlipidemia (Chronic) Obstructive sleep apnea (Chronic) Peripheral vascular disease (Chronic) Past Medical History: Patient has a history of peripheral arterial occlusive disease, having undergone several right lower extremity revascularizations in the past. He also has a history of hypertension, hyperlipidemia, urinary incontinence, fecal incontinence, and prostate cancer. His history is negative for diabetes mellitus, cerebrovascular accident, pulmonary disease, renal disease, and thyroid disease. Surgical History: - - The patient is undergone lumbar surgery in the past. He has a history of bilateral shoulder surgery. He has had coronary stents placed, and to proceed stenting was performed in the right lower extremity., rotator cuff repair, tonsillectomy, - Allergies/Adverse Reactions: Allergies carisoprodol Allergy (Verified 02/14/18 17:37) Other itraconazole Allergy (Verified 02/14/18 17:37) Other Home Medications: Ambulatory Orders Medication Instructions Recorded Omeprazole [Prilosec] 20 mg PO DAILY 10/07/15 Aspirin E.C. [Ecotrin] 81 mg PO DAILY 03/08/17 Naproxen 375 mg PO BID PRN 03/08/17 Vitamin E 400 unit PO DAILY 03/08/17 metoprolol succinate ER 25 mg 12.5 mg PO QDAY #45 tab 06/15/17 tablet,extended release 24 hr Acetaminophen [Tylenol Extra 500 mg PO BID 02/14/18 Strength] Atorvastatin Calcium [Lipitor] 20 mg PO QHS 02/14/18 Duloxetine HCl 30 mg PO DAILY 02/14/18 Ferrous Gluconate 324 mg PO DAILY 02/14/18 Furosemide [Lasix] 20 mg PO DAILY 02/14/18 Multivit-Min/FA/Lycopen/Lutein 1 tab PO DAILY 02/14/18 [Centrum Silver Men Tablet] Nitroglycerin 0.4 mg PO PRN PRN 02/14/18 clopidogrel 75 mg tablet 75 mg PO DAILY #90 tab 03/05/18 Social History: 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 He is . He denies use of alcohol and tobacco products. Lives: Spouse/ Significant Other Smoking Status: Never smoker Tobacco Use: Non-smoker Alcohol: None Drugs: None Review of Systems Constitutional: Denies: Chills, Fever, Weight Change Eyes: Denies: Pain, Vision Change HEENT: Denies: Difficulty Hearing, Difficulty Swallowing, Sinus Congestion Cardiovascular: Denies: Chest Pain, Palpitations Respiratory: Denies: Cough, Shortness of Breath Gastrointestinal: Denies: Diarrhea, Nausea, Vomiting Genitourinary: Denies: Dysuria, Hematuria Endocrine: Denies: Heat/ Cold Intolerance, Polydipsia, Polyuria Hematologic/ Lymphatic: Denies: Easy Bruising, Easy Bleeding - Physical Exam Vital Signs Temp Pulse Resp BP 97.7 F L 87 16 149/87 H 03/05/18 15:21 03/05/18 15:21 03/05/18 15:21 03/05/18 15:21 General: Alert, Oriented x3, Cooperative, No apparent distress, Well developed, Well nourished HEENT: Atraumatic, PERRLA, EOMI, Normocephalic Oral: Moist Mucosa Neck: No JVD, Negative Carotid Bruits, Negative Hepatojugular Reflux, No Nodes, No Nuchal Rigidity, Trachea Midline Lungs: Clear to auscultation, Normal air movement, No rhonchi, No wheeze, No rales Cardiovascular: Regular rate, Regular Rhythm, Normal S1, Normal S2, No murmurs Abdomen: Soft, Non Tender, Non-Distended Extremities: No clubbing, No cyanosis, No edema, No Calf Tenderness, - - There is no significant swelling or edema in the patient's lower extremities. There is a very small ulceration on the right heel, located on the plantar surface, but lateral. Dimensions are documented elsewhere. There is no obvious sign of infection or cellulitis. The base of the ulceration is generally pink and healthy in appearance, with a small amount of bioburden. Of note, there is significant scaly dermatitis on the right heel surrounding the ulceration. Wound Measurements and Assessment WC - Nurse 1 - General Ulcer Measurement Start: 03/05/18 15:20 Freq: Status: Active Protocol: Activity Type Activity Date Activity User E-Sign Co-Sign Detail Recorded Client Recorded Date Recorded By Document 03/05/18 15:21 CS [id number] 03/05/18 15:33 CS 03/05/18 15:21 Wound Center Nurse 1 [Ulcer Assessment] #6 RIGHT HEEL -Combined with other wound No -Current Size (cm) - Length 0.2 -Current Size (cm) - Width 0.2 -Current Size (cm) - Depth 0.1 -Total Square Cm 0.04 -Date of Last Picture (Recall this 03/05/18 field) -Photo Taken Yes -Epithelialization None Present -Tunneling No -Undermining/Tunneling No -Circular Undermining No -Exudate Amt Small (1-33%) -Exudate Type Serosanguineous -Wound Margin Distinct, Outline Attached -Granulation Amt Medium (34-66%) -Granulation Quality Pale [place] -Slough/Fibrin Yes -Necrosis Amt Large (67-100%) -Necrotic Tissue Type Adherent Slough -Structure Exposed None/Limited to Skin Breakdown -Texture (Michelle-wound Skin Appearance) No Abnormality Assessed -Moisture (Michelle-wound Skin Appearance Assessed ) Dry/Scaly -Color (Michelle-wound Skin Appearance) Assessed -Temperature (Michelle-wound Skin No Abnormality Appearance) (Pt Warm) -Tenderness on Palpation (Michelle-wound No Skin Appearance) -Ulcer Cleansing Rinsed/ Irrigated with Saline -Foul Odor after Cleansing No -Anesthetic Used 4% Lidocaine Solution [Edema Assessment] -Lower Limb Edema Present No -Right Calf (cm) 26.5 -Right Ankle (cm) 18.5 -Left Calf (cm) 28 -Left Ankle (cm) 18.5 WC - Nurse 2 - General Ulcer CM Notes Start: 03/05/18 15:20 Freq: Status: Active Protocol: Activity Type Activity Date Activity User E-Sign Co-Sign Detail Recorded Client Recorded Date Recorded By Document 03/05/18 15:50 DV [id number] 03/05/18 16:00 DV 03/05/18 15:50 Wound Center Nurse 2 [Procedure/Treatment] #6 RIGHT HEEL -Time 15:58 -Correct Patient Yes -Correct Side, Site, Position Yes -Correct Procedure Yes -Procedure Performed Yes -Type of Procedure Debridement -Clinical Debridement Subcutaneous -Post Debridement Size (cm) - Length 0.4 -Post Debridement Size (cm) - Width 0.4 -Post Debridement Size (cm) - Depth 0.2 -Total Square Cm 0.16 -Wound/Ulcer Outcome Not Healed -Ulcer Cleansing Rinsed/ Irrigated with Saline -Foul Odor after Cleansing No -Bioengineered Tissue No -Bleeding Controlled with Pressure -Treatment Response Procedure Tolerated Well [See Physician Procedure note for Specifics] Pain Scale: 0-10 Numeric [Pain] -Is Patient Pain Free? Yes Neurological: Cranial nerves II-XII grossly intact, Neuro grossly intact Psych/Mental Status: Normal Affect, Alert and oriented to time, place, person, mood and affect Debridement Note Post-Debridement Measurements/Treatment WC - Nurse 2 - General Ulcer CM Notes Start: 03/05/18 15:20 Freq: Status: Active Protocol: Activity Type Activity Date Activity User E-Sign Co-Sign Detail Recorded Client Recorded Date Recorded By Document 03/05/18 15:50 DV [id number] 03/05/18 16:00 DV 03/05/18 15:50 Wound Center Nurse 2 #6 RIGHT HEEL -Time 15:58 -Correct Patient Yes -Correct Side, Site, Position Yes -Correct Procedure Yes -Procedure Performed Yes -Type of Procedure Debridement -Clinical Debridement Subcutaneous -Post Debridement Size (cm) - Length 0.4 -Post Debridement Size (cm) - Width 0.4 -Post Debridement Size (cm) - Depth 0.2 -Total Square Cm 0.16 -Wound/Ulcer Outcome Not Healed -Ulcer Cleansing Rinsed/ Irrigated with Saline -Foul Odor after Cleansing No -Bioengineered Tissue No -Bleeding Controlled with Pressure -Treatment Response Procedure Tolerated Well Pain Scale: 0-10 Numeric Is Patient Pain Free? Yes Laterality: Right - He will Type of Debridement: Excisional debridement Anesthesia Used: 5% Lidocaine Gel Depth: Down to and including healthy tissue, in the subcutaneous layer Percentage of wound debrided: 100 Instrument Used: 7mm curette Severity: Fat Layer Exposed Amount of bleeding with debridement: Mild Bleeding Controlled with: Compression and gauze Patient tolerated procedure well Assessment/Plan Active Problems (Last Reviewed 02/14/18 @ 20:07 by Mario Sanchez MD) PAD (peripheral artery disease) (Chronic) Chronic pain of right heel (Acute) Ulcer of right heel (Chronic) Peripheral vascular disease (Chronic) Assessment: This is an 82-year-old male with a long-standing history of ulceration of the right heel. He has been previously treated at this facility, without complete healing of his ulceration. Based upon appearances, there is also an apparent dermatological abnormality of the right heel, with scaly dermatitic changes. Patient has gone recent laboratory studies, with results as follows: White blood count 6.2, hemoglobin 11.1, matter crit 34.5, platelets 370,000, sodium 142, potassium 3.8, BUN 31, creatinine 1.07, glucose 88, total protein 7.3, albumin 3.7, prealbumin 30.9. The patient is also known to have history of peripheral arterial occlusive disease in the right lower extremity, for which she is undergone 2 previous endoluminal revascularizations. Plan: We are to implement offloading measures to the right heel. These measures have been discussed with the patient and his . He is to continue wearing his new shoe with insert which was obtained from [employer]. He is to take measures during sleeping hours to avoid resting his heel on the bed surface. Laboratory results have been reviewed. We are to also obtain a noninvasive lower extremity arterial study, with only ABIs, as placement of blood pressure cuffs at a higher level is to be avoided given the patient's prior stenting procedures. Collagenase Santyl has been prescribed, and will be used topically on the ulceration of the right heel on a daily basis. Lotrisone 1% cream is to be applied topically to the surrounding scaly dermatitic skin. The patient will return in 1 week for reassessment. Influenza vaccine was not administered today. Patient is not a smoker. He weighs 56.28 kg. He stands 1.6 cm in height. His BMI is 20. He is not overweight or obese.
[2018-03-12 16:28] VITALS: BP 136/77; PULSE 69; RESP 18; TEMP 35.9
--- NOTE | 2018-03-12 17:01 | PCM.WC.HP ---
(1) PAD (peripheral artery disease) Status: Chronic Current Visit: Yes Code(s): I73.9 - Peripheral vascular disease, unspecified (2) Urinary incontinence Status: Chronic Current Visit: No Code(s): R32 - Unspecified urinary incontinence (3) Fecal incontinence Status: Chronic Current Visit: No Code(s): R15.9 - Full incontinence of feces (4) History of coronary artery stent placement Status: Chronic Current Visit: No Code(s): Z95.5 - Presence of coronary angioplasty implant and graft Comment: PTCA/Stent to mid RCA 08/06/04; cutting balloon angioplasty with TAMERA to mid RCA 02/19; PTCA/Stent of focal instent stenosis of RCA 06/18/09; PCI/TAMERA to Ostial PDA and PCI-ISR RCA 09/03/13; PCi/TAMERA ISR of mid RCA 10/07/15; FFR mid LAD @ [facility] 10/08/15 (5) Essential (primary) hypertension Status: Chronic Current Visit: No Code(s): I10 - Essential (primary) hypertension (6) Chronic pain of right heel Status: Acute Current Visit: Yes Code(s): M79.671 - Pain in right foot; G89.29 - Other chronic pain (7) Ulcer of right heel Status: Chronic Current Visit: Yes Qualifiers: Non-pressure ulcer stage: with fat layer exposed Qualified Code(s): L97.412 - Non-pressure chronic ulcer of right heel and midfoot with fat layer exposed Code(s): L97.419 - Non-pressure chronic ulcer of right heel and midfoot with unspecified severity (8) 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 Current Visit: No Qualifiers: Code(s): I25.10 - Atherosclerotic heart disease of solomon coronary artery without angina pectoris Comment: PTCA/Stent to mid RCA 08/06/04; cutting balloon angioplasty with TAMERA to mid RCA 02/19; PTCA/Stent of focal instent stenosis of RCA 06/18/09; PCI/TAMERA to Ostial PDA and PCI-ISR RCA 09/03/13; PCi/TAMERA ISR of mid RCA 10/07/15; FFR mid LAD @ [facility] 10/08/15 (9) GERD (gastroesophageal reflux disease) Status: Chronic Current Visit: No Code(s): K21.9 - Gastro-esophageal reflux disease without esophagitis (10) Hyperlipidemia Status: Chronic Current Visit: No Qualifiers: Code(s): E78.5 - Hyperlipidemia, unspecified (11) Obstructive sleep apnea Status: Chronic Current Visit: No Code(s): G47.33 - Obstructive sleep apnea (adult) (pediatric) (12) Peripheral vascular disease Status: Chronic Current Visit: Yes Code(s): I73.9 - Peripheral vascular disease, unspecified History of Present Illness Chief Complaint: Chronic right heel ulceration History of Wound: This is an 82-year-old male with a long-standing history of ulceration of the right heel. He has been previously treated at our facility for a similar ulceration. The ulceration has been present for at least several years, and has never completely healed, according to the patient and his . The patient does have special shoes, with inserts, that have recently been obtained from [employer]. According to the patient, the case investigator that [employer] was aware of the right heel ulceration, and fitted the shoes to accommodate this situation. The patient also has known peripheral arterial occlusive disease, and has previously undergone right lower extremity revascularization on 2 occasions. In August 2012, a stent was placed in the right superficial femoral artery at [facility] by Dr. Leonard. In 2013, a stent was placed in the right popliteal artery by Dr. Nate Rose. Patient has been recently using OptiFoam for the ulceration. He is ambulatory. He sleeps on a flat surface at night, typically on his back. Past Medical History Past Medical History: Chronic Problems (Last Reviewed 02/14/18 @ 20:07 by Mario Sanchez MD) PAD (peripheral artery disease) (Chronic) Urinary incontinence (Chronic) Fecal incontinence (Chronic) History of coronary artery stent placement (Chronic 10/07/15) PTCA/Stent to mid RCA 08/06/04; cutting balloon angioplasty with TAMERA to mid RCA 02/19; PTCA/Stent of focal instent stenosis of RCA 06/18/09; PCI/TAMERA to Ostial PDA and PCI-ISR RCA 09/03/13; PCi/TAMERA ISR of mid RCA 10/07/15; FFR mid LAD @ [facility] 10/08/15 Essential (primary) hypertension (Chronic) Ulcer of right heel (Chronic) Stenosis of femoral artery (Chronic) Right Femoral Artery PTCA/Stent 08/2012; angioplasty and stenting of the Rt SFA @ [facility] per Dr. Zapata; Stent to distal RSFA to popliteal, Stent Rt. 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 He has a history of bilateral shoulder surgery. He has had coronary stents placed, and to proceed stenting was performed in the right lower extremity., rotator cuff repair, tonsillectomy, - Allergies/Adverse Reactions: Allergies carisoprodol Allergy (Verified 02/14/18 17:37) Other itraconazole Allergy (Verified 02/14/18 17:37) Other Home Medications: Ambulatory Orders Medication Instructions Recorded Omeprazole [Prilosec] 20 mg PO DAILY 10/07/15 Aspirin E.C. [Ecotrin] 81 mg PO DAILY 03/08/17 Naproxen 375 mg PO BID PRN 03/08/17 Vitamin E 400 unit PO DAILY 03/08/17 metoprolol succinate ER 25 mg 12.5 mg PO QDAY #45 tab 06/15/17 tablet,extended release 24 hr Acetaminophen [Tylenol Extra 500 mg PO BID 02/14/18 Strength] Atorvastatin Calcium [Lipitor] 20 mg PO QHS 02/14/18 Duloxetine HCl 30 mg PO DAILY 02/14/18 Ferrous Gluconate 324 mg PO DAILY 02/14/18 Furosemide [Lasix] 20 mg PO DAILY 02/14/18 Multivit-Min/FA/Lycopen/Lutein 1 tab PO DAILY 02/14/18 [Centrum Silver Men Tablet] Nitroglycerin 0.4 mg PO PRN PRN 02/14/18 clopidogrel 75 mg tablet 75 mg PO DAILY #90 tab 03/05/18 Lives: Spouse/ Significant Other Smoking Status: Never smoker Tobacco Use: Non-smoker Alcohol: None Drugs: None Review of Systems Constitutional: Denies: Chills, Fever, Weight Change Eyes: Denies: Pain, Vision Change HEENT: Denies: Difficulty Hearing, Difficulty Swallowing, Sinus Congestion Cardiovascular: Denies: Chest Pain, Palpitations Respiratory: Denies: Cough, Shortness of Breath Gastrointestinal: Denies: Diarrhea, Nausea, Vomiting Genitourinary: Denies: Dysuria, Hematuria Endocrine: Denies: Heat/ Cold Intolerance, Polydipsia, Polyuria Hematologic/ Lymphatic: Denies: Easy Bruising, Easy Bleeding - Physical Exam Vital Signs Temp Pulse Resp BP 96.6 F L 69 18 136/77 H 03/12/18 16:28 03/12/18 16:28 03/12/18 16:28 03/12/18 16:28 General: Alert, Oriented x3, Cooperative, No apparent distress, Well developed, Well nourished HEENT: Atraumatic, PERRLA, EOMI, Normocephalic Oral: Moist Mucosa Neck: No JVD Lungs: Normal air movement Abdomen: Non-Distended Extremities: No clubbing, No cyanosis, No edema, No Calf Tenderness, - - The ulceration of the right heel persists. It appears pink and healthy in appearance. There is no sign of infection or cellulitis. The dermatitic changes of the right heel, previously noted, have improved. Ulcer dimensions have diminished as well, and are documented elsewhere. There is a small amount of bioburden. Wound Measurements and Assessment WC - Nurse 1 - General Ulcer Measurement Start: 03/05/18 15:20 Freq: Status: Active Protocol: Activity Type Activity Date Activity User E-Sign Co-Sign Detail Recorded Client Recorded Date Recorded By Document 03/12/18 16:28 [id number] 03/12/18 16:34 03/12/18 16:28 Wound Center Nurse 1 [Ulcer Assessment] #6 RIGHT HEEL -Combined with other wound No -Current Size (cm) - Length 0.3 -Current Size (cm) - Width 0.4 -Current Size (cm) - Depth 0.2 -Total Square Cm 0.12 -Photo Taken No -Epithelialization Small 1-33% -Tunneling No -Undermining/Tunneling No -Circular Undermining No -Exudate Amt None Present (0 %) -Wound Margin Flat & Intact -Granulation Amt Medium (34-66%) -Granulation Quality Red -Slough/Fibrin Yes -Necrosis Amt Medium (34-66%) -Necrotic Tissue Type Adherent Slough -Structure Exposed N/A -Texture (Michelle-wound Skin Appearance) Assessed Excoriation -Moisture (Michelle-wound Skin Appearance Assessed ) Dry/Scaly -Color (Michelle-wound Skin Appearance) Assessed -Temperature (Michelle-wound Skin No Abnormality Appearance) (Pt Warm) -Tenderness on Palpation (Michelle-wound No Skin Appearance) -Ulcer Cleansing Rinsed/ Irrigated with Saline -Foul Odor after Cleansing No -Anesthetic Used 5% Lidocaine Gel [Edema Assessment] -Lower Limb Edema Present Yes -Right Calf (cm) 26.8 -Right Ankle (cm) 18.7 - Nurse 2 - General Ulcer CM Notes Start: 03/05/18 15:20 Freq: Status: Active Protocol: Activity Type Activity Date Activity User E-Sign Co-Sign Detail Recorded Client Recorded Date Recorded By Document 03/12/18 16:54 [id number] 03/12/18 16:58 03/12/18 16:54 Wound Center Nurse 2 [Procedure/Treatment] #6 RIGHT HEEL -Time 16:54 -Correct Patient Yes -Correct Side, Site, Position Yes -Correct Procedure Yes -Procedure Performed Yes -Type of Procedure Debridement -Clinical Debridement Subcutaneous -Post Debridement Size (cm) - Length 0.6 -Post Debridement Size (cm) - Width 0.5 -Post Debridement Size (cm) - Depth 0.2 -Total Square Cm 0.30 -Wound/Ulcer Outcome Not Healed -Ulcer Cleansing Rinsed/ Irrigated with Saline -Foul Odor after Cleansing No -Bioengineered Tissue No -Topical Lidocaine (%) 4 -Lidocaine (ml) 5 -Bleeding Controlled with Pressure -Treatment Response Procedure Tolerated Well [See Physician Procedure note for Specifics] Pain Scale: 0-10 Numeric [Pain] -Is Patient Pain Free? Yes Musculoskeletal: No Muscle Wasting Neurological: Cranial nerves II-XII grossly intact, Neuro grossly intact Psych/Mental Status: Normal Affect, Appropriate, Alert and oriented to time, place, person, mood and affect Debridement Note Post-Debridement Measurements/Treatment WC - Nurse 2 - General Ulcer CM Notes Start: 03/05/18 15:20 Freq: Status: Active Protocol: Activity Type Activity Date Activity User E-Sign Co-Sign Detail Recorded Client Recorded Date Recorded By Document 03/05/18 15:50 DV [id number] 03/05/18 16:00 DV Document 03/12/18 16:54 [id number] 03/12/18 16:58 03/05/18 03/12/18 15:50 16:54 Wound Center Nurse 2 #6 RIGHT HEEL -Time 15:58 16:54 -Correct Patient Yes Yes -Correct Side, Site, Position Yes Yes -Correct Procedure Yes Yes -Procedure Performed Yes Yes -Type of Procedure Debridement Debridement -Clinical Debridement Subcutaneous Subcutaneous -Post Debridement Size (cm) - Length 0.4 0.6 -Post Debridement Size (cm) - Width 0.4 0.5 -Post Debridement Size (cm) - Depth 0.2 0.2 -Total Square Cm 0.16 0.30 -Wound/Ulcer Outcome Not Healed Not Healed -Ulcer Cleansing Rinsed/ Rinsed/ Irrigated with Irrigated with Saline Saline -Foul Odor after Cleansing No No -Bioengineered Tissue No No -Topical Lidocaine (%) 4 -Lidocaine (ml) 5 -Bleeding Controlled with Pressure Pressure -Treatment Response Procedure Procedure Tolerated Well Tolerated Well Pain Scale: 0-10 Numeric Is Patient Pain Free? Yes Yes Laterality: Right - Heel ulceration Type of Debridement: Excisional debridement Anesthesia Used: 5% Lidocaine Gel Depth: Down to and including healthy tissue, in the subcutaneous layer Percentage of wound debrided: 100 Instrument Used: 3mm curette Severity: Fat Layer Exposed Amount of bleeding with debridement: Mild Bleeding Controlled with: Compression and gauze Patient tolerated procedure well Assessment/Plan Active Problems (Last Reviewed 02/14/18 @ 20:07 by Mario Sanchez MD) PAD (peripheral artery disease) (Chronic) Chronic pain of right heel (Acute) Ulcer of right heel (Chronic) Peripheral vascular disease (Chronic) Assessment: This is an 82-year-old male with a long-standing history of ulceration of the right heel. He has been previously treated at this facility, without complete healing of his ulceration. Based upon appearances, there is also an apparent dermatological abnormality of the right heel, with scaly dermatitic changes. Patient has gone recent laboratory studies, with results as follows: White blood count 6.2, hemoglobin 11.1, matter crit 34.5, platelets 370,000, sodium 142, potassium 3.8, BUN 31, creatinine 1.07, glucose 88, total protein 7.3, albumin 3.7, prealbumin 30.9. The patient is also known to have history of peripheral arterial occlusive disease in the right lower extremity, for which he is undergone 2 previous endoluminal revascularizations. A noninvasive lower extremity arterial study was performed on 03/09/18, the results of which show mild arterial occlusive disease to ankle level in the right lower extremity, and severe, distal, small-vessel arterial occlusive disease in the right lower extremity. Plan: We are to implement offloading measures to the right heel. These measures have been discussed with the patient and his . He is to continue wearing his new shoe with insert which was obtained from [employer]. He is to take measures during sleeping hours to avoid resting his heel on the bed surface. Laboratory results have been reviewed. We are to also obtain a noninvasive lower extremity arterial study, with only ABIs, as placement of blood pressure cuffs at a higher level is to be avoided given the patient's prior stenting procedures. Collagenase Santyl has been prescribed, and will be used topically on the ulceration of the right heel on a daily basis. Lotrisone 1% cream is to be applied topically to the surrounding scaly dermatitic skin. The patient will return in 1 week for reassessment. Influenza vaccine was not administered today. Patient is not a smoker. He weighs 56.28 kg. He stands 1.6 cm in height. His BMI is 20. He is not overweight or obese.
--- NOTE | 2018-03-12 17:07 | HP.PCM_ITS ---
(1) PAD (peripheral artery disease) Status: Chronic Current Visit: Yes Code(s): I73.9 - Peripheral vascular disease, unspecified (2) Urinary incontinence Status: Chronic Current Visit: No Code(s): R32 - Unspecified urinary incontinence (3) Fecal incontinence Status: Chronic Current Visit: No Code(s): R15.9 - Full incontinence of feces (4) History of coronary artery stent placement Status: Chronic Current Visit: No Code(s): Z95.5 - Presence of coronary angioplasty implant and graft Comment: PTCA/Stent to mid RCA 08/06/04; cutting balloon angioplasty with TAMERA to mid RCA 02/19; PTCA/Stent of focal instent stenosis of RCA 06/18/09; PCI/TAMERA to Ostial PDA and PCI-ISR RCA 09/03/13; PCi/TAMERA ISR of mid RCA 10/07/15; FFR mid LAD @ [facility] 10/08/15 (5) Essential (primary) hypertension Status: Chronic Current Visit: No Code(s): I10 - Essential (primary) hypertension (6) Chronic pain of right heel Status: Acute Current Visit: Yes Code(s): M79.671 - Pain in right foot; G89.29 - Other chronic pain (7) Ulcer of right heel Status: Chronic Current Visit: Yes Qualifiers: Non-pressure ulcer stage: with fat layer exposed Qualified Code(s): L97.412 - Non-pressure chronic ulcer of right heel and midfoot with fat layer exposed Code(s): L97.419 - Non-pressure chronic ulcer of right heel and midfoot with unspecified severity (8) Atherosclerotic heart disease of [place] coronary artery without angina pectoris Status: Chronic Current Visit: No Qualifiers: Code(s): I25.10 - Atherosclerotic heart disease of [place] coronary artery without angina pectoris Comment: PTCA/Stent to mid RCA 08/06/04; cutting balloon angioplasty with TAMERA to mid RCA 02/19; PTCA/Stent of focal instent stenosis of RCA 06/18/09; PCI/TAMERA to Ostial PDA and PCI-ISR RCA 09/03/13; PCi/TAMERA ISR of mid RCA 10/07/15; FFR mid LAD @ [facility] 10/08/15 (9) GERD (gastroesophageal reflux disease) Status: Chronic Current Visit: No Code(s): K21.9 - Gastro-esophageal reflux disease without esophagitis (10) Hyperlipidemia Status: Chronic Current Visit: No Qualifiers: Code(s): E78.5 - Hyperlipidemia, unspecified (11) Obstructive sleep apnea Status: Chronic Current Visit: No Code(s): G47.33 - Obstructive sleep apnea (adult) (pediatric) (12) Peripheral vascular disease Status: Chronic Current Visit: Yes Code(s): I73.9 - Peripheral vascular disease, unspecified History of Present Illness Chief Complaint: Chronic right heel ulceration History of Wound: This is an 82-year-old male with a long-standing history of ulceration of the right heel. He has been previously treated at our facility for a similar ulceration. The ulceration has been present for at least several years, and has never completely healed, according to the patient and his . The patient does have special shoes, with inserts, that have recently been obtained from [employer]. 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 The patient also has known peripheral arterial occlusive disease, and has previously undergone right lower extremity revascularization on 2 occasions. In August 2012, a stent was placed in the right superficial femoral artery at [facility] by Dr. Leonard. In 2013, a stent was placed in the right popliteal artery by Dr. Nate Rose. Patient has been recently using OptiFoam for the ulceration. He is ambulatory. He sleeps on a flat surface at night, typically on his back. Past Medical History Past Medical History: Chronic Problems (Last Reviewed 02/14/18 @ 20:07 by Mario Sanchez MD) PAD (peripheral artery disease) (Chronic) Urinary incontinence (Chronic) Fecal incontinence (Chronic) History of coronary artery stent placement (Chronic 10/07/15) PTCA/Stent to mid RCA 08/06/04; cutting balloon angioplasty with TAMERA to mid RCA 02/19; PTCA/Stent of focal instent stenosis of RCA 06/18/09; PCI/TAMERA to Ostial PDA and PCI-ISR RCA 09/03/13; PCi/TAMERA ISR of mid RCA 10/07/15; FFR mid LAD @ [facility] 10/08/15 Essential (primary) hypertension (Chronic) Ulcer of right heel (Chronic) Stenosis of femoral artery (Chronic) Right Femoral Artery PTCA/Stent 08/2012; angioplasty and stenting of the Rt SFA @ [facility] per Dr. Zapata; Stent to distal RSFA to popliteal, Stent Rt. Proximal SFA 10/23/13 Atherosclerotic heart disease of [place] coronary artery without angina pectoris (Chronic) PTCA/Stent to mid RCA 08/06/04; cutting balloon angioplasty with TAMERA to mid RCA 02/19; PTCA/Stent of focal instent stenosis of RCA 06/18/09; PCI/TAMERA to Ostial PDA and PCI-ISR RCA 09/03/13; PCi/TAMERA ISR of mid RCA 10/07/15; FFR mid LAD @ [facility] 10/08/15 GERD (gastroesophageal reflux disease) (Chronic) Hyperlipidemia (Chronic) Obstructive sleep apnea (Chronic) Peripheral vascular disease (Chronic) Surgical History: - - The patient is undergone lumbar surgery in the past. He has a history of bilateral shoulder surgery. He has had coronary stents placed, and to proceed stenting was performed in the right lower extremity., rotator cuff repair, tonsillectomy, - Allergies/Adverse Reactions: Allergies carisoprodol Allergy (Verified 02/14/18 17:37) Other itraconazole Allergy (Verified 02/14/18 17:37) Other Home Medications: Ambulatory Orders Medication Instructions Recorded Omeprazole [Prilosec] 20 mg PO DAILY 10/07/15 Aspirin E.C. [Ecotrin] 81 mg PO DAILY 03/08/17 Naproxen 375 mg PO BID PRN 03/08/17 Vitamin E 400 unit PO DAILY 03/08/17 metoprolol succinate ER 25 mg 12.5 mg PO QDAY #45 tab 06/15/17 tablet,extended release 24 hr Acetaminophen [Tylenol Extra 500 mg PO BID 02/14/18 Strength] Atorvastatin Calcium [Lipitor] 20 mg PO QHS 02/14/18 Duloxetine HCl 30 mg PO DAILY 02/14/18 Ferrous Gluconate 324 mg PO DAILY 02/14/18 Furosemide [Lasix] 20 mg PO DAILY 02/14/18 Multivit-Min/FA/Lycopen/Lutein 1 tab PO DAILY 02/14/18 [Centrum Silver Men Tablet] Nitroglycerin 0.4 mg PO PRN PRN 02/14/18 clopidogrel 75 mg tablet 75 mg PO DAILY #90 tab 03/05/18 Lives: Spouse/ Significant Other Smoking Status: Never smoker Tobacco Use: Non-smoker Alcohol: None Drugs: None Review of Systems Constitutional: Denies: Chills, Fever, Weight Change Eyes: Denies: Pain, Vision Change HEENT: Denies: Difficulty Hearing, Difficulty Swallowing, Sinus Congestion Cardiovascular: Denies: Chest Pain, Palpitations Respiratory: Denies: Cough, Shortness of Breath Gastrointestinal: Denies: Diarrhea, Nausea, Vomiting Genitourinary: Denies: Dysuria, Hematuria Endocrine: Denies: Heat/ Cold Intolerance, Polydipsia, Polyuria Hematologic/ Lymphatic: Denies: Easy Bruising, Easy Bleeding - Physical Exam Vital Signs Temp Pulse Resp BP 96.6 F L 69 18 136/77 H 03/12/18 16:28 03/12/18 16:28 03/12/18 16:28 03/12/18 16:28 General: Alert, Oriented x3, Cooperative, No apparent distress, Well developed, Well nourished HEENT: Atraumatic, PERRLA, EOMI, Normocephalic Oral: Moist Mucosa Neck: No JVD Lungs: Normal air movement Abdomen: Non-Distended Extremities: No clubbing, No cyanosis, No edema, No Calf Tenderness, - - The ulceration of the right heel persists. It appears pink and healthy in appearance. There is no sign of infection or cellulitis. The dermatitic changes of the right heel, previously noted, have improved. Ulcer dimensions have diminished as well, and are documented elsewhere. There is a small amount of bioburden. Wound Measurements and Assessment WC - Nurse 1 - General Ulcer Measurement Start: 03/05/18 15:20 Freq: Status: Active Protocol: Activity Type Activity Date Activity User E-Sign Co-Sign Detail Recorded Client Recorded Date Recorded By Document 03/12/18 16:28 [id number] 03/12/18 16:34 03/12/18 16:28 Wound Center Nurse 1 [Ulcer Assessment] #6 RIGHT HEEL -Combined with other wound No -Current Size (cm) - Length 0.3 -Current Size (cm) - Width 0.4 -Current Size (cm) - Depth 0.2 -Total Square Cm 0.12 -Photo Taken No -Epithelialization Small 1-33% -Tunneling No -Undermining/Tunneling No -Circular Undermining No -Exudate Amt None Present (0 %) -Wound Margin Flat & Intact -Granulation Amt Medium (34-66%) -Granulation Quality Red -Slough/Fibrin Yes -Necrosis Amt Medium (34-66%) -Necrotic Tissue Type Adherent Slough -Structure Exposed N/A -Texture (Michelle-wound Skin Appearance) Assessed Excoriation -Moisture (Michelle-wound Skin Appearance Assessed ) Dry/Scaly -Color (Michelle-wound Skin Appearance) Assessed -Temperature (Michelle-wound Skin No Abnormality Appearance) (Pt Warm) -Tenderness on Palpation (Michelle-wound No Skin Appearance) -Ulcer Cleansing Rinsed/ Irrigated with Saline -Foul Odor after Cleansing No -Anesthetic Used 5% Lidocaine Gel [Edema Assessment] -Lower Limb Edema Present Yes -Right Calf (cm) 26.8 -Right Ankle (cm) 18.7 - Nurse 2 - General Ulcer CM Notes Start: 03/05/18 15:20 Freq: Status: Active Protocol: Activity Type Activity Date Activity User E-Sign Co-Sign Detail Recorded Client Recorded Date Recorded By Document 03/12/18 16:54 [id number] 03/12/18 16:58 03/12/18 16:54 Wound Center Nurse 2 [Procedure/Treatment] #6 RIGHT HEEL -Time 16:54 -Correct Patient Yes -Correct Side, Site, Position Yes -Correct Procedure Yes -Procedure Performed Yes -Type of Procedure Debridement -Clinical Debridement Subcutaneous -Post Debridement Size (cm) - Length 0.6 -Post Debridement Size (cm) - Width 0.5 -Post Debridement Size (cm) - Depth 0.2 -Total Square Cm 0.30 -Wound/Ulcer Outcome Not Healed -Ulcer Cleansing Rinsed/ Irrigated with Saline -Foul Odor after Cleansing No -Bioengineered Tissue No -Topical Lidocaine (%) 4 -Lidocaine (ml) 5 -Bleeding Controlled with Pressure -Treatment Response Procedure Tolerated Well [See Physician Procedure note for Specifics] Pain Scale: 0-10 Numeric [Pain] -Is Patient Pain Free? Yes Musculoskeletal: No Muscle Wasting Neurological: Cranial nerves II-XII grossly intact, Neuro grossly intact Psych/Mental Status: Normal Affect, Appropriate, Alert and oriented to time, place, person, mood and affect Debridement Note Post-Debridement Measurements/Treatment WC - Nurse 2 - General Ulcer CM Notes Start: 03/05/18 15:20 Freq: Status: Active Protocol: Activity Type Activity Date Activity User E-Sign Co-Sign Detail Recorded Client Recorded Date Recorded By Document 03/05/18 15:50 DV [id number] 03/05/18 16:00 DV Document 03/12/18 16:54 [id number] 03/12/18 16:58 03/05/18 03/12/18 15:50 16:54 Wound Center Nurse 2 #6 RIGHT HEEL -Time 15:58 16:54 -Correct Patient Yes Yes -Correct Side, Site, Position Yes Yes -Correct Procedure Yes Yes -Procedure Performed Yes Yes -Type of Procedure Debridement Debridement -Clinical Debridement Subcutaneous Subcutaneous -Post Debridement Size (cm) - Length 0.4 0.6 -Post Debridement Size (cm) - Width 0.4 0.5 -Post Debridement Size (cm) - Depth 0.2 0.2 -Total Square Cm 0.16 0.30 -Wound/Ulcer Outcome Not Healed Not Healed -Ulcer Cleansing Rinsed/ Rinsed/ Irrigated with Irrigated with Saline Saline -Foul Odor after Cleansing No No -Bioengineered Tissue No No -Topical Lidocaine (%) 4 -Lidocaine (ml) 5 -Bleeding Controlled with Pressure Pressure -Treatment Response Procedure Procedure Tolerated Well Tolerated Well Pain Scale: 0-10 Numeric Is Patient Pain Free? Yes Yes Laterality: Right - Heel ulceration Type of Debridement: Excisional debridement Anesthesia Used: 5% Lidocaine Gel Depth: Down to and including healthy tissue, in the subcutaneous layer Percentage of wound debrided: 100 Instrument Used: 3mm curette Severity: Fat Layer Exposed Amount of bleeding with debridement: Mild Bleeding Controlled with: Compression and gauze Patient tolerated procedure well Assessment/Plan Active Problems (Last Reviewed 02/14/18 @ 20:07 by Mario Sanchez MD) PAD (peripheral artery disease) (Chronic) Chronic pain of right heel (Acute) Ulcer of right heel (Chronic) Peripheral vascular disease (Chronic) Assessment: This is an 82-year-old male with a long-standing history of ulceration of the right heel. He has been previously treated at this facility, without complete healing of his ulceration. Based upon appearances, there is also an apparent dermatological abnormality of the right heel, with scaly dermatitic changes. Patient has gone recent laboratory studies, with results as follows: White blood count 6.2, hemoglobin 11.1, matter crit 34.5, platelets 370,000, sodium 142, potassium 3.8, BUN 31, creatinine 1.07, glucose 88, total protein 7.3, albumin 3.7, prealbumin 30.9. The patient is also known to have history of peripheral arterial occlusive disease in the right lower extremity, for which he is undergone 2 previous endoluminal revascularizations. A noninvasive lower extremity arterial study was performed on 03/09/18, the results of which show mild arterial occlusive disease to ankle level in the right lower extremity, and severe, distal, small-vessel arterial occlusive disease in the right lower extremity. Plan: We are to implement offloading measures to the right heel. These measures have been discussed with the patient and his . He is to continue wearing his new shoe with insert which was obtained from [employer]. He is to take measures during sleeping hours to avoid resting his heel on the bed surface. Laboratory results have been reviewed. We are to also obtain a noninvasive lower extremity arterial study, with only ABIs, as placement of blood pressure cuffs at a higher level is to be avoided given the patient's prior stenting procedures. Collagenase Santyl has been prescribed, and will be used topically on the ulceration of the right heel on a daily basis. Lotrisone 1% cream is to be applied topically to the surrounding scaly dermatitic skin. The patient will return in 1 week for reassessment. Influenza vaccine was not administered today. Patient is not a smoker. He weighs 56.28 kg. He stands 1.6 cm in height. His BMI is 20. He is not overweight or obese.
--- NOTE | 2018-03-14 15:57 | LEAS_ITS ---
Arterial Study - Arterial Study Arterial Study: This is an 82-year-old male with a history of peripheral arterial occlusive disease, hyperlipidemia, and hypertension. He has previously undergone lower extremity endoluminal revascularization. He presents with a chronic nonhealing wound of the right lower extremity. He is brought to the noninvasive vascular laboratory at this time for the purpose of bilateral noninvasive lower extremity arterial assessment. Doppler signal assessment was used to evaluate the pulses at ankle level bilaterally. On the right, the posterior tibial and dorsalis pedis pulses were monophasic. The left posterior tibial pulse was biphasic. The left dorsalis pedis pulse was monophasic. Segmental limb pressures were obtained bilaterally. The right ankle pressure, as determined by posterior tibial pulse, was measured at 119 mmHg. The right ankle pressure, as determined by dorsalis pedis pulse, was measured at 96 mmHg. The right digital pressure was measured at 47 mmHg. The left ankle pressure, as determined by posterior tibial pulse, was measured at 131 mmHg. The left ankle pressure, as determined by dorsalis pedis pulse, was measured at 97 mmHg. The left digital pressure was measured at 64 mmHg. Pulse?volume recordings were obtained bilaterally at ankle and digital levels. Waveform amplitudes appeared to be diminished bilaterally. Resting ankle-brachial indices were calculated bilaterally. The resting right ankle?brachial index was calculated to be 0.77. The resting left ankle?brachial index was calculated to be 0.85. Digital?brachial indices were calculated bilaterally. The right digital?brachial index was calculated to be 0.30. The left digital?brachial index was calculated to be 0.41. Impression: Based upon the findings of this resting noninvasive lower extremity arterial study, there is evidence of moderate to severe arterial occlusive disea se in the lower extremities bilaterally. Monophasic waveforms were noted at ankle level on the right. Biphasic and monophasic waveforms were noted at ankle level on the left. The resting right ankle?brachial index is moderately diminished. The right digital?brachial index is severely diminished, consistent with severe impairment of arterial flow at digital level in the right lower extremity. The resting left ankle?brachial index is mildly diminished. The left digital?brachial index is moderately to severely diminished, consistent with moderate to severe impairment of arterial flow at digital level in the left lower extremity. Clinical correlation is advised.
== END 2018-03-16 23:59 ==
LOC: WC 16:15
PROVIDERS: Family Provider Family Medicine; PCP Family Medicine; Visit Provider Surgery
DX: I73.9 Peripheral vascular disease, unspecified (principal); R32 Unspecified urinary incontinence; R15.9 Full incontinence of feces; I10 Essential (primary) hypertension; L97.412 Non-pressure chronic ulcer of right heel and midfoot with fat layer exposed; I25.10 Atherosclerotic heart disease of native coronary artery without angina pectoris; Z95.5 Presence of coronary angioplasty implant and graft; K21.9 Gastro-esophageal reflux disease without esophagitis; E78.5 Hyperlipidemia, unspecified; G47.33 Obstructive sleep apnea (adult) (pediatric); Z85.46 Personal history of malignant neoplasm of prostate; Z79.899 Other long term (current) drug therapy; Z79.82 Long term (current) use of aspirin; Z79.02 Long term (current) use of antithrombotics/antiplatelets; G89.29 Other chronic pain
CPT/HCPCS: 11042; 93923; 99213; G0463

== ENCOUNTER 2018-03-19 09:11 | Outpatient (RCR) | payer MEDICARE, OTHER, SELFPAY ==
[2018-03-17 02:05] VITALS: BP 136/77; PULSE 69; RESP 18; TEMP 35.9
[2018-03-19 15:41] VITALS: BP 144/94; PULSE 90; RESP 18; TEMP 36.2
--- NOTE | 2018-03-19 16:57 | PCM.WC.HP ---
(1) Enteritis Status: Chronic Current Visit: No Code(s): K52.9 - Noninfective gastroenteritis and colitis, unspecified (2) PAD (peripheral artery disease) Status: Chronic Current Visit: Yes Code(s): I73.9 - Peripheral vascular disease, unspecified (3) Urinary incontinence Status: Chronic Current Visit: No Code(s): R32 - Unspecified urinary incontinence (4) Fecal incontinence Status: Chronic Current Visit: No Code(s): R15.9 - Full incontinence of feces (5) History of coronary artery stent placement Status: Chronic Current Visit: No Code(s): Z95.5 - Presence of coronary angioplasty implant and graft Comment: PTCA/Stent to mid RCA 08/06/04; cutting balloon angioplasty with TAMERA to mid RCA 02/19; PTCA/Stent of focal instent stenosis of RCA 06/18/09; PCI/TAMERA to Ostial PDA and PCI-ISR RCA 09/03/13; PCi/TAMERA ISR of mid RCA 10/07/15; FFR mid LAD @ [facility] 10/08/15 (6) Essential (primary) hypertension Status: Chronic Current Visit: No Code(s): I10 - Essential (primary) hypertension (7) Chronic pain of right heel Status: Chronic Current Visit: Yes Code(s): M79.671 - Pain in right foot; G89.29 - Other chronic pain (8) Ulcer of right heel Status: Chronic Current Visit: Yes Qualifiers: Non-pressure ulcer stage: with fat layer exposed Code(s): L97.419 - Non-pressure chronic ulcer of right heel and midfoot with unspecified severity (9) Yeast dermatitis Status: Chronic Current Visit: Yes Code(s): B37.2 - Candidiasis of skin and nail (10) Palpitations Status: Chronic Current Visit: No Code(s): R00.2 - Palpitations (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 Zapata; Stent to distal RSFA to popliteal, Stent Rt. 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 Current Visit: No Qualifiers: Code(s): I25.10 - Atherosclerotic heart disease of [place] coronary artery without angina pectoris Comment: PTCA/Stent to mid RCA 08/06/04; cutting balloon angioplasty with TAMERA to mid RCA 02/19; PTCA/Stent of focal instent stenosis of RCA 06/18/09; PCI/TAMERA to Ostial PDA and PCI-ISR RCA 09/03/13; PCi/TAMERA ISR of mid RCA 10/07/15; FFR mid LAD @ [facility] 10/08/15 (13) GERD (gastroesophageal reflux disease) Status: Chronic Current Visit: No Code(s): K21.9 - Gastro-esophageal reflux disease without esophagitis (14) Hyperlipidemia Status: Chronic Current Visit: No Qualifiers: Code(s): E78.5 - Hyperlipidemia, unspecified (15) Obstructive sleep apnea Status: Chronic Current Visit: No Code(s): G47.33 - Obstructive sleep apnea (adult) (pediatric) (16) Peripheral vascular disease Status: Chronic Current Visit: Yes Code(s): I73.9 - Peripheral vascular disease, unspecified History of Present Illness Chief Complaint: Chronic right heel ulceration History of Wound: This is an 82-year-old male with a long-standing history of ulceration of the right heel. He has been previously treated at our facility for a similar ulceration. The ulceration has been present for at least several years, and has never completely healed, according to the patient and his . The patient does have special shoes, with inserts, that have recently been obtained from [employer]. According to the patient, the household personal assistant that [employer] was aware of the right heel ulceration, and fitted the shoes to accommodate this situation. The patient also has known peripheral arterial occlusive disease, and has previously undergone right lower extremity revascularization on 2 occasions. In August 2012, a stent was placed in the right superficial femoral artery at [facility] by Dr. Leonard. In 2013, a stent was placed in the right popliteal artery by Dr. Nate Rose. Patient has been recently using OptiFoam for the ulceration. He is ambulatory. He sleeps on a flat surface at night, typically on his back. Past Medical History Past Medical History: Chronic Problems (Last Reviewed 02/14/18 @ 20:07 by Mario Sanchez MD) Syncope (Chronic) Enteritis (Chronic) PAD (peripheral artery disease) (Chronic) Urinary incontinence (Chronic) Fecal incontinence (Chronic) History of coronary artery stent placement (Chronic 10/07/15) PTCA/Stent to mid RCA 08/06/04; cutting balloon angioplasty with TAMERA to mid RCA 02/19; PTCA/Stent of focal instent stenosis of RCA 06/18/09; PCI/TAMERA to Ostial PDA and PCI-ISR RCA 09/03/13; PCi/TAMERA ISR of mid RCA 10/07/15; FFR mid LAD @ [facility] 10/08/15 Essential (primary) hypertension (Chronic) Chronic pain of right heel (Chronic) Ulcer of right heel (Chronic) Yeast dermatitis (Chronic) Palpitations (Chronic) Stenosis of femoral artery (Chronic) Right Femoral Artery PTCA/Stent 08/2012; angioplasty and stenting of the Rt SFA @ [facility] per Dr. Zapata; Stent to distal RSFA to popliteal, Stent Rt. Proximal SFA 10/23/13 Atherosclerotic heart disease of [place] coronary artery without angina pectoris (Chronic) PTCA/Stent to mid RCA 08/06/04; cutting balloon angioplasty with TAMERA to mid RCA 02/19; PTCA/Stent of focal instent stenosis of RCA 06/18/09; PCI/TAMERA to Ostial PDA and PCI-ISR RCA 09/03/13; PCi/TAMERA ISR of mid RCA 10/07/15; FFR mid LAD @ [facility] 10/08/15 GERD (gastroesophageal reflux disease) (Chronic) Hyperlipidemia (Chronic) Obstructive sleep apnea (Chronic) Peripheral vascular disease (Chronic) Surgical History: - - The patient is undergone lumbar surgery in the past. He has a history of bilateral shoulder surgery. He has had coronary stents placed, and to proceed stenting was performed in the right lower extremity., rotator cuff repair, tonsillectomy, - Allergies/Adverse Reactions: Allergies carisoprodol Allergy (Verified 02/14/18 17:37) Other itraconazole Allergy (Verified 02/14/18 17:37) Other Home Medications: Ambulatory Orders Medication Instructions Recorded Omeprazole [Prilosec] 20 mg PO DAILY 10/07/15 Aspirin E.C. [Ecotrin] 81 mg PO DAILY 03/08/17 Naproxen 375 mg PO BID PRN 03/08/17 Vitamin E 400 unit PO DAILY 03/08/17 metoprolol succinate ER 25 mg 12.5 mg PO QDAY #45 tab 06/15/17 tablet,extended release 24 hr Acetaminophen [Tylenol Extra 500 mg PO BID 02/14/18 Strength] Atorvastatin Calcium [Lipitor] 20 mg PO QHS 02/14/18 Duloxetine HCl 30 mg PO DAILY 02/14/18 Ferrous Gluconate 324 mg PO DAILY 02/14/18 Furosemide [Lasix] 20 mg PO DAILY 02/14/18 Multivit-Min/FA/Lycopen/Lutein 1 tab PO DAILY 02/14/18 [Centrum Silver Men Tablet] Nitroglycerin 0.4 mg PO PRN PRN 02/14/18 clopidogrel 75 mg tablet 75 mg PO DAILY #90 tab 03/05/18 Smoking Status: Never smoker Tobacco Use: Non-smoker Review of Systems Constitutional: Denies: Chills, Fever, Weight Change Eyes: Denies: Pain, Vision Change HEENT: Denies: Difficulty Hearing, Difficulty Swallowing, Sinus Congestion Cardiovascular: Denies: Chest Pain, Palpitations Respiratory: Denies: Cough, Shortness of Breath Gastrointestinal: Denies: Diarrhea, Nausea, Vomiting Genitourinary: Denies: Dysuria, Hematuria Endocrine: Denies: Heat/ Cold Intolerance, Polydipsia, Polyuria Hematologic/ Lymphatic: Denies: Easy Bruising, Easy Bleeding - Physical Exam Vital Signs Temp Pulse Resp BP 97.2 F L 90 18 144/94 H 03/19/18 15:41 03/19/18 15:41 03/19/18 15:41 03/19/18 15:41 General: Alert, Oriented x3, Cooperative, No apparent distress, Well developed, Well nourished HEENT: Atraumatic, PERRLA, EOMI, Normocephalic Oral: Moist Mucosa Neck: No JVD Lungs: Normal air movement Abdomen: Non-Distended Extremities: No clubbing, No cyanosis, No edema, No Calf Tenderness, - - There is no swelling or edema in the lower extremities bilaterally area of the ulceration on the right heel persists. It is little changed in size or shape. Dimensions are documented elsewhere. There is no sign of infection or cellulitis. The base of the ulceration is generally pink and healthy, with a small amount of bioburden. The erythema which was previously noted of the right heel has improved significantly, presumably due to the use of Lotrisone cream. There is now a dry eschar adjacent to the right great toenail, without evidence of associated infection or cellulitis. Skin: No rashes Wound Measurements and Assessment WC - Nurse 1 - General Ulcer Measurement Start: 03/19/18 15:39 Freq: Status: Active Protocol: Activity Type Activity Date Activity User E-Sign Co-Sign Detail Recorded Client Recorded Date Recorded By Document 03/19/18 15:41 DL [id number] 03/19/18 15:44 DL 03/19/18 15:41 Wound Center Nurse 1 [Ulcer Assessment] #6 RIGHT HEEL -Current Size (cm) - Length 0.3 -Current Size (cm) - Width 0.5 -Current Size (cm) - Depth 0.1 -Total Square Cm 0.15 -Photo Taken No -Exudate Amt None Present (0 %) -Wound Margin Distinct, Outline Attached -Granulation Amt Large (67-100%) -Granulation Quality [place] -Necrosis Amt None Present (0 %) -Structure Exposed N/A -Texture (Michelle-wound Skin Appearance) Scarring -Moisture (Michelle-wound Skin Appearance Dry/Scaly ) -Color (Michelle-wound Skin Appearance) Rubor -Temperature (Michelle-wound Skin No Abnormality Appearance) (Pt Warm) -Ulcer Cleansing Rinsed/ Irrigated with Saline -Foul Odor after Cleansing No -Anesthetic Used 4% Lidocaine Solution Neurological: Cranial nerves II-XII grossly intact, Neuro grossly intact Psych/Mental Status: Normal Affect, Appropriate, Alert and oriented to time, place, person, mood and affect Debridement Note Laterality: Right - Heel Type of Debridement: Excisional debridement Anesthesia Used: 5% Lidocaine Gel Depth: Down to and including healthy tissue, in the subcutaneous layer - Heel Percentage of wound debrided: 100 Instrument Used: 3mm curette Severity: Fat Layer Exposed Amount of bleeding with debridement: Mild Bleeding Controlled with: Compression and gauze Patient tolerated procedure well Assessment/Plan Active Problems (Last Reviewed 02/14/18 @ 20:07 by Mario Sanchez MD) PAD (peripheral artery disease) (Chronic) Chronic pain of right heel (Chronic) Ulcer of right heel (Chronic) Yeast dermatitis (Chronic) Stenosis of femoral artery (Chronic) Right Femoral Artery PTCA/Stent 08/2012; angioplasty and stenting of the Rt SFA @ [facility] per Dr. Zapata; Stent to distal RSFA to popliteal, Stent Rt. Proximal SFA 10/23/13 Peripheral vascular disease (Chronic) Assessment: This is an 82-year-old male with a long-standing history of ulceration of the right heel. He has been previously treated at this facility, without complete healing of his ulceration. Based upon appearances, there is also an apparent dermatological abnormality of the right heel, with scaly dermatitic changes. The patient has been treated with Lotrisone cream 1% topically to this area, which has resulted in significant improvement. The right heel ulceration persists, and has been treated recently by means of collagenase Santyl applied topically on a daily basis. The patient has undergone recent laboratory studies, with results as follows: White blood count 6.2, hemoglobin 11.1, matter crit 34.5, platelets 370,000, sodium 142, potassium 3.8, BUN 31, creatinine 1.07, glucose 88, total protein 7.3, albumin 3.7, prealbumin 30.9. The patient is also known to have history of peripheral arterial occlusive disease in the right lower extremity, for which he has undergone 2 previous endoluminal revascularizations. A noninvasive lower extremity arterial study was performed on 03/09/18, the results of which show mild arterial occlusive disease to ankle level in the right lower extremity, and severe, distal, small-vessel arterial occlusive disease in the right lower extremity. Plan: We are to continue offloading measures to the right heel. These measures have been discussed with the patient and his . He is to continue wearing his new shoe with insert which was obtained from [employer]. He is to take measures during sleeping hours to avoid resting his heel on the bed surface. Laboratory results have been reviewed. Noninvasive lower extremity arterial study has been performed, revealing evidence of arterial occlusive disease in the lower extremities. A consultation with his vascular surgeon has been recommended, Dr. Rose. We will seek to learn whether revascularization of the right lower extremity might enhance the patient's wound healing potential. Collagenase Santyl has been prescribed, and will be used topically on the ulceration of the right heel on a daily basis. Lotrisone 1% cream is to continue topically to the surrounding erythematous, scaly dermatitic skin, which is already showing improvement. The patient has made an appointment with a local podiatric specialist, and recommendations will be awaited. We will defer management of the dry eschar adjacent to the right great toenail until evaluated by the podiatric surgeon. The patient will return in 1 week for reassessment. Influenza vaccine was not administered today. Patient is not a smoker. He weighs 56.28 kg. He stands 1.6 cm in height. His BMI is 20. He is not overweight or obese.
--- NOTE | 2018-03-19 17:02 | HP.PCM_ITS ---
(1) Enteritis Status: Chronic Current Visit: No Code(s): K52.9 - Noninfective gastroenteritis and colitis, unspecified (2) PAD (peripheral artery disease) Status: Chronic Current Visit: Yes Code(s): I73.9 - Peripheral vascular disease, unspecified (3) Urinary incontinence Status: Chronic Current Visit: No Code(s): R32 - Unspecified urinary incontinence (4) Fecal incontinence Status: Chronic Current Visit: No Code(s): R15.9 - Full incontinence of feces (5) History of coronary artery stent placement Status: Chronic Current Visit: No Code(s): Z95.5 - Presence of coronary angioplasty implant and graft Comment: PTCA/Stent to mid RCA 08/06/04; cutting balloon angioplasty with TAMERA to mid RCA 02/19; PTCA/Stent of focal instent stenosis of RCA 06/18/09; PCI/TAMERA to Ostial PDA and PCI-ISR RCA 09/03/13; PCi/TAMERA ISR of mid RCA 10/07/15; FFR mid LAD @ [facility] 10/08/15 (6) Essential (primary) hypertension Status: Chronic Current Visit: No Code(s): I10 - Essential (primary) hypertension (7) Chronic pain of right heel Status: Chronic Current Visit: Yes Code(s): M79.671 - Pain in right foot; G89.29 - Other chronic pain (8) Ulcer of right heel Status: Chronic Current Visit: Yes Qualifiers: Non-pressure ulcer stage: with fat layer exposed Code(s): L97.419 - Non-pressure chronic ulcer of right heel and midfoot with unspecified severity (9) Yeast dermatitis Status: Chronic Current Visit: Yes Code(s): B37.2 - Candidiasis of skin and nail (10) Palpitations Status: Chronic Current Visit: No Code(s): R00.2 - Palpitations (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 Zapata; Stent to distal RSFA to popliteal, Stent Rt. 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 Current Visit: No Qualifiers: Code(s): I25.10 - Atherosclerotic heart disease of [place] coronary artery without angina pectoris Comment: PTCA/Stent to mid RCA 08/06/04; cutting balloon angioplasty with TAMERA to mid RCA 02/19; PTCA/Stent of focal instent stenosis of RCA 06/18/09; PCI/TAMERA to Ostial PDA and PCI-ISR RCA 09/03/13; PCi/TAMERA ISR of mid RCA 10/07/15; FFR mid LAD @ [facility] 10/08/15 (13) GERD (gastroesophageal reflux disease) Status: Chronic Current Visit: No Code(s): K21.9 - Gastro-esophageal reflux disease without esophagitis (14) Hyperlipidemia Status: Chronic Current Visit: No Qualifiers: Code(s): E78.5 - Hyperlipidemia, unspecified (15) Obstructive sleep apnea Status: Chronic Current Visit: No Code(s): G47.33 - Obstructive sleep apnea (adult) (pediatric) (16) Peripheral vascular disease Status: Chronic Current Visit: Yes Code(s): I73.9 - Peripheral vascular disease, unspecified History of Present Illness Chief Complaint: Chronic right heel ulceration History of Wound: This is an 82-year-old male with a long-standing history of ulceration of the right heel. He has been previously treated at our facility for a similar ulceration. The ulceration has been present for at least several years, and has never completely healed, according to the patient and his . The patient does have special shoes, with inserts, that have recently been obtained from [employer]. According to the patient, the senior operator that [employer] was aware of the right heel ulceration, and fitted the shoes to accommodate this situation. The patient also has known peripheral arterial occlusive disease, and has previously undergone right lower extremity revascularization on 2 occasions. In August 2012, a stent was placed in the right superficial femoral artery at [facility] by Dr. Leonard. In 2013, a stent was placed in the right popliteal artery by Dr. Nate Rose. Patient has been recently using OptiFoam for the ulceration. He is ambulatory. He sleeps on a flat surface at night, typically on his back. Past Medical History Past Medical History: Chronic Problems (Last Reviewed 02/14/18 @ 20:07 by Mario Sanchez MD) Syncope (Chronic) Enteritis (Chronic) PAD (peripheral artery disease) (Chronic) Urinary incontinence (Chronic) Fecal incontinence (Chronic) History of coronary artery stent placement (Chronic 10/07/15) PTCA/Stent to mid RCA 08/06/04; cutting balloon angioplasty with TAMERA to mid RCA 02/19; PTCA/Stent of focal instent stenosis of RCA 06/18/09; PCI/TAMERA to Ostial PDA and PCI-ISR RCA 09/03/13; PCi/TAMERA ISR of mid RCA 10/07/15; FFR mid LAD @ [facility] 10/08/15 Essential (primary) hypertension (Chronic) Chronic pain of right heel (Chronic) Ulcer of right heel (Chronic) Yeast dermatitis (Chronic) Palpitations (Chronic) Stenosis of femoral artery (Chronic) Right Femoral Artery PTCA/Stent 08/2012; angioplasty and stenting of the Rt SFA @ [facility] per Dr. Zapata; Stent to distal RSFA to popliteal, Stent Rt. Proximal SFA 10/23/13 Atherosclerotic heart disease of [place] coronary artery without angina pectoris (Chronic) PTCA/Stent to mid RCA 08/06/04; cutting balloon angioplasty with TAMERA to mid RCA 02/19; PTCA/Stent of focal instent stenosis of RCA 06/18/09; PCI/TAMERA to Ostial PDA and PCI-ISR RCA 09/03/13; PCi/TAMERA ISR of mid RCA 10/07/15; FFR mid LAD @ [facility] 10/08/15 GERD (gastroesophageal reflux disease) (Chronic) Hyperlipidemia (Chronic) Obstructive sleep apnea (Chronic) Peripheral vascular disease (Chronic) Surgical History: - - The patient is undergone lumbar surgery in the past. He has a history of bilateral shoulder surgery. He has had coronary stents placed, and to proceed stenting was performed in the right lower extremity., rotator cuff repair, tonsillectomy, - Allergies/Adverse Reactions: Allergies carisoprodol Allergy (Verified 02/14/18 17:37) Other itraconazole Allergy (Verified 02/14/18 17:37) Other Home Medications: Ambulatory Orders Medication Instructions Recorded Omeprazole [Prilosec] 20 mg PO DAILY 10/07/15 Aspirin E.C. [Ecotrin] 81 mg PO DAILY 03/08/17 Naproxen 375 mg PO BID PRN 03/08/17 Vitamin E 400 unit PO DAILY 03/08/17 metoprolol succinate ER 25 mg 12.5 mg PO QDAY #45 tab 06/15/17 tablet,extended release 24 hr Acetaminophen [Tylenol Extra 500 mg PO BID 02/14/18 Strength] Atorvastatin Calcium [Lipitor] 20 mg PO QHS 02/14/18 Duloxetine HCl 30 mg PO DAILY 02/14/18 Ferrous Gluconate 324 mg PO DAILY 02/14/18 Furosemide [Lasix] 20 mg PO DAILY 02/14/18 Multivit-Min/FA/Lycopen/Lutein 1 tab PO DAILY 02/14/18 [Centrum Silver Men Tablet] Nitroglycerin 0.4 mg PO PRN PRN 02/14/18 clopidogrel 75 mg tablet 75 mg PO DAILY #90 tab 03/05/18 Smoking Status: Never smoker Tobacco Use: Non-smoker Review of Systems Constitutional: Denies: Chills, Fever, Weight Change Eyes: Denies: Pain, Vision Change HEENT: Denies: Difficulty Hearing, Difficulty Swallowing, Sinus Congestion Cardiovascular: Denies: Chest Pain, Palpitations Respiratory: Denies: Cough, Shortness of Breath Gastrointestinal: Denies: Diarrhea, Nausea, Vomiting Genitourinary: Denies: Dysuria, Hematuria Endocrine: Denies: Heat/ Cold Intolerance, Polydipsia, Polyuria Hematologic/ Lymphatic: Denies: Easy Bruising, Easy Bleeding - Physical Exam Vital Signs Temp Pulse Resp BP 97.2 F L 90 18 144/94 H 03/19/18 15:41 03/19/18 15:41 03/19/18 15:41 03/19/18 15:41 General: Alert, Oriented x3, Cooperative, No apparent distress, Well developed, Well nourished HEENT: Atraumatic, PERRLA, EOMI, Normocephalic Oral: Moist Mucosa Neck: No JVD Lungs: Normal air movement Abdomen: Non-Distended Extremities: No clubbing, No cyanosis, No edema, No Calf Tenderness, - - There is no swelling or edema in the lower extremities bilaterally area of the ulceration on the right heel persists. It is little changed in size or shape. Dimensions are documented elsewhere. There is no sign of infection or cellulitis. The base of the ulceration is generally pink and healthy, with a small amount of bioburden. The erythema which was previously noted of the right heel has improved significantly, presumably due to the use of Lotrisone cream. There is now a dry eschar adjacent to the right great toenail, without evidence of associated infection or cellulitis. Skin: No rashes Wound Measurements and Assessment WC - Nurse 1 - General Ulcer Measurement Start: 03/19/18 15:39 Freq: Status: Active Protocol: Activity Type Activity Date Activity User E-Sign Co-Sign Detail Recorded Client Recorded Date Recorded By Document 03/19/18 15:41 DL [id number] 03/19/18 15:44 DL 03/19/18 15:41 Wound Center Nurse 1 [Ulcer Assessment] #6 RIGHT HEEL -Current Size (cm) - Length 0.3 -Current Size (cm) - Width 0.5 -Current Size (cm) - Depth 0.1 -Total Square Cm 0.15 -Photo Taken No -Exudate Amt None Present (0 %) -Wound Margin Distinct, Outline Attached -Granulation Amt Large (67-100%) -Granulation Quality [place] -Necrosis Amt None Present (0 %) -Structure Exposed N/A -Texture (Michelle-wound Skin Appearance) Scarring -Moisture (Michelle-wound Skin Appearance Dry/Scaly ) -Color (Michelle-wound Skin Appearance) Rubor -Temperature (Michelle-wound Skin No Abnormality Appearance) (Pt Warm) -Ulcer Cleansing Rinsed/ Irrigated with Saline -Foul Odor after Cleansing No -Anesthetic Used 4% Lidocaine Solution Neurological: Cranial nerves II-XII grossly intact, Neuro grossly intact Psych/Mental Status: Normal Affect, Appropriate, Alert and oriented to time, place, person, mood and affect Debridement Note Laterality: Right - Heel Type of Debridement: Excisional debridement Anesthesia Used: 5% Lidocaine Gel Depth: Down to and including healthy tissue, in the subcutaneous layer - Heel Percentage of wound debrided: 100 Instrument Used: 3mm curette Severity: Fat Layer Exposed Amount of bleeding with debridement: Mild Bleeding Controlled with: Compression and gauze Patient tolerated procedure well Assessment/Plan Active Problems (Last Reviewed 02/14/18 @ 20:07 by Mario Sanchez MD) PAD (peripheral artery disease) (Chronic) Chronic pain of right heel (Chronic) Ulcer of right heel (Chronic) Yeast dermatitis (Chronic) Stenosis of femoral artery (Chronic) Right Femoral Artery PTCA/Stent 08/2012; angioplasty and stenting of the Rt SFA @ [facility] per Dr. Zapata; Stent to distal RSFA to popliteal, Stent Rt. Proximal SFA 10/23/13 Peripheral vascular disease (Chronic) Assessment: This is an 82-year-old male with a long-standing history of ulceration of the right heel. He has been previously treated at this facility, without complete healing of his ulceration. Based upon appearances, there is also an apparent dermatological abnormality of the right heel, with scaly dermatitic changes. The patient has been treated with Lotrisone cream 1% topically to this area, which has resulted in significant improvement. The righ t heel ulceration persists, and has been treated recently by means of collagenase Santyl applied topically on a daily basis. The patient has undergone recent laboratory studies, with results as follows: White blood count 6.2, hemoglobin 11.1, matter crit 34.5, platelets 370,000, sodium 142, potassium 3.8, BUN 31, creatinine 1.07, glucose 88, total protein 7.3, albumin 3.7, prealbumin 30.9. The patient is also known to have history of peripheral arterial occlusive disease in the right lower extremity, for which he has undergone 2 previous endoluminal revascularizations. A noninvasive lower e xtremity arterial study was performed on 03/09/18, the results of which show mild arterial occlusive disease to ankle level in the right lower extremity, and severe, distal, small-vessel arterial occlusive disease in the right lower extremity. Plan: We are to continue offloading measures to the right heel. These measures have been discussed with the patient and his . He is to continue wearing his new shoe with insert which was obtained from [employer]. He is to take measures during sleeping hours to avoid resting his heel on the bed surface. Laboratory results have been reviewed. Noninvasive lower extremity arterial study has been performed, revealing evidence of arterial occlusive disease in the lower extremities. A consultation with his vascular surgeon has been recommended, Dr. Rose. We will seek to learn whether revascularization of the right lower extremity might enhance the patient's wound healing potential. Collagenase Santyl has been prescribed, and will be used topically on the ulceration of the right heel on a daily basis. Lotrisone 1% cream is to continue topically to the surrounding erythematous, scaly dermatitic skin, which is already showing improvement. The patient has made an appointment with a local podiatric specialist, and recommendations will be awaited. We will defer management of the dry eschar adjacent to the right great toenail until evaluated by the podiatric surgeon. The patient will return in 1 week for reassessment. Influenza vaccine was not administered today. Patient is not a smoker. He weighs 56.28 kg. He stands 1.6 cm in height. His BMI is 20. He is not overweight or obese.
--- OUTSIDE RECORDS SUMMARY | 2018-05-12 12:03 | XMS RPT_ITS ---
:1935 Author Organization [facility] Support Name Relationship Address Phone ANIRUDH KYMBERLY Unavailable [address] + [place] [address] JACKY OLEARY Unavailable [address] + [place] [address] R Unavailable Unavailable Unavailable KYMBERLY OLEARY Unavailable [address] + [place], [place] [address]JACKY MRECADO Unavailable [address] + [place] [address] R Unavailable Unavailable Unavailable KYMBERLY OLEARY Unavailable [address] + [place] [address] JACKY OLEARY Unavailable [address] + [place] [address] R Unavailable Unavailable Unavailable KYMBERLY OLEARY Unavailable [address] + [place] [address] JACKY OLEARY Unavailable [address] + [place] [address] R Unavailable Unavailable Unavailable KYMBERLY OLEARY Unavailable [address] + [place] [address] JACKY OLEARY Unavailable [address] + [place] [address] R Unavailable Unavailable Unavailable KYMBERLY OLEARY Unavailable [address] + [place], [place] [address]JACKY MERCADO Unavailable [address] + [place] [address] R Unavailable Unavailable Unavailable KYMBERLY OLEARY Unavailable [address] + [place], [place] [address]JACKY MERCADO Unavailable [address] + [place] [address] R Unavailable Unavailable Unavailable JEROD OLEARYLYN Unavailable [address] + [place], [place] [address]JACKY MERCADO Unavailable [address] + [place] [address] R Unavailable Unavailable Unavailable JEROD OLEARYLYN Unavailable [address] + [place], [place] [address]JACKY MERCADO Unavailable [address] + [place] [address] R Unavailable Unavailable Unavailable JEROD OLEARYLYN Unavailable [address] + [place], [place] [address]JACKY JOLLY Unavailable [address] + [place] [address] R Unavailable Unavailable Unavailable JEROD OLEARYLYN Unavailable [address] + [place], [place] [address]JACKY MERCADO Unavailable [address] + [place] [address] R Unavailable Unavailable Unavailable JOSÉ MANUEL OLEARYN Unavailable [address] + [place], [place] [address]JACKY MERCADO Unavailable [address] + [place] [address] R Unavailable Unavailable Unavailable KYMBERLY OLEARY Unavailable [address] + [place], [place] [address]JACKY MERCADO Unavailable [address] + [place] [address] R Unavailable Unavailable Unavailable KYMBERLY OLEARY Unavailable [address] + [place], [place] [address]JACKY MERCADO Unavailable [address] + [place] [address] R Unavailable Unavailable Unavailable JEROD OLEARYLYN Unavailable [address] + [place], [place] [address]JACKY MERCADO Unavailable [address] + [place] [address] R Unavailable Unavailable Unavailable KYMBERLY OLEARY Unavailable [address] + [place] [address] JACKY OLEARY Unavailable [address] + [place] [address] R Unavailable Unavailable Unavailable KYMBERLY OLEARY Unavailable [address] + [place] [address] JACKY OLEARY Unavailable [address] + [place] [id number] R Unavailable Unavailable Unavailable KYMBERLY OLEARY Unavailable [address] + [place] [address] JACKY OLEARY Unavailable [address] + [place] [id number] R Unavailable Unavailable Unavailable KYMBERLY OLEARY Unavailable [address] + [place] [address] JACKY OLEARY Unavailable [address] + [place] [address] R Unavailable Unavailable Unavailable KYMBERLY OLEARY Unavailable [address] + [place] [address] JACKY OLEARY Unavailable [address] + [place] [id number] R Unavailable Unavailable Unavailable KYMBERLY OLEARY Unavailable [address] [phone] [place] [address] JACKY OLEARY Unavailable [address] + [place] [address] R Unavailable Unavailable Unavailable KYMBERLY OLEARY Unavailable [address] [phone] [place], [place] [address]JACKY MERCADO Unavailable [address] + [place] [address] R Unavailable Unavailable Unavailable KYMBERLY OLEARY Unavailable [address] [phone] [place], [place] [address]JACKY MERCADO Unavailable [address] + [place] [address] R Unavailable Unavailable Unavailable KYMBERLY OLEARY Unavailable [address] [phone] [place] [address] JACKY OLEARY Unavailable [address] + [place] [address] R Unavailable Unavailable Unavailable KYMBERLY OLEARY Unavailable [address] [facility] [phone] [place] [address] JACKY OLEARY Unavailable [address] + [place] [address] R Unavailable Unavailable Unavailable Care Team Providers Name Role Phone JACQUES MONTES, FILEMON Mckeon Attending Unavailable DOCTOR, OUT OF TOWN Attending Unavailable Bran, Radha Primary Care Unavailable Luis, Jeniffer COOPERATIVE EXTENSION AGENT-C Attending Unavailable LuisJeniffer COOPERATIVE EXTENSION AGENT-C Referring Unavailable Bran, Radha Primary Care Unavailable Rosi Self Attending Unavailable Luz Maria, [place] Attending Unavailable Bran, Radha Referring Unavailable Bran, Radha Primary Care Unavailable Filemon Rose Attending Unavailable Filemon Rose Referring Unavailable Bran, Radha Primary Care Unavailable Bran, Radha Attending Unavailable Bran, Radha Primary Care Unavailable Bran, Radha Referring Unavailable Luz Maria, [place] Consulting Unavailable Duncan, Alfonzo COOPERATIVE EXTENSION AGENT-C Attending Unavailable Bran, Radha Primary Care Unavailable Duncan, Alfonzo COOPERATIVE EXTENSION AGENT-C Attending Unavailable Duncan, Alfonzo COOPERATIVE EXTENSION AGENT-C Referring Unavailable Bran, Radha Primary Care Unavailable Duncan, Alfonzo COOPERATIVE EXTENSION AGENT-C Attending Unavailable Bran, Radha Primary Care Unavailable Duncan, Alfonzo COOPERATIVE EXTENSION AGENT-C Consulting Unavailable Duncan, Alfonzo COOPERATIVE EXTENSION AGENT-C Attending Unavailable Bran, Radha Primary Care Unavailable Duncan, Alfonzo COOPERATIVE EXTENSION AGENT-C Attending Unavailable Bran, Radha Primary Care Unavailable Duncan, Alfonzo COOPERATIVE EXTENSION AGENT-C Consulting Unavailable Duncan, Alfonzo COOPERATIVE EXTENSION AGENT-C Attending Unavailable Bran, Radha Primary Care Unavailable Duncan, Alfonzo COOPERATIVE EXTENSION AGENT-C Consulting Unavailable Duncan, Alfonzo COOPERATIVE EXTENSION AGENT-C Attending Unavailable Bran, Radha Primary Care Unavailable Duncan, Alfonzo COOPERATIVE EXTENSION AGENT-C Consulting Unavailable Duncan, Alfonzo COOPERATIVE EXTENSION AGENT-C Attending Unavailable Bran, Radha Primary Care Unavailable Duncan, Alfonzo COOPERATIVE EXTENSION AGENT-C Consulting Unavailable Duncan, Alfonzo COOPERATIVE EXTENSION AGENT-C Attending Unavailable Bran, Radha Primary Care Unavailable Duncan, Alfonoz COOPERATIVE EXTENSION AGENT-C Consulting Unavailable Duncan, Alfonzo COOPERATIVE EXTENSION AGENT-C Attending Unavailable Bran, Radha Primary Care Unavailable Luz Maria, Janes Attending Unavailable Bran, Radha Referring Unavailable Bran, Radha Primary Care Unavailable Mario Sanchez Admitting Unavailable Daniel, Mario Referring Unavailable Luz Maria, Janes Consulting Unavailable Mark Goldstein Attending Unavailable AgMario rodriguez Admitting Unavailable Agyepong, Mario Attending Unavailable Agyepong, Mario Referring Unavailable Radha Bran Primary Care Unavailable Agyepong, Mario Consulting Unavailable Agyepong, Mario Admitting Unavailable Agyepong, Mario Referring Unavailable Bran, Radha Primary Care Unavailable Luz Maria, Janes Consulting Unavailable JoppMark mccall Attending Unavailable Joppstefany Mark Consulting Unavailable Wilver, Laith Attending Unavailable Wilver, Laith Referring Unavailable Bran, Radha Primary Care Unavailable Luz Maria, [place] Attending Unavailable Agyepong, Mario Referring Unavailable Armen Fuentes Attending Unavailable Bran, Radha Primary Care Unavailable Luz Maria, [place] Attending Unavailable Agyepong, Mario Referring Unavailable Fuentes, Armen Attending Unavailable Bran, Radha Primary Care Unavailable PROBLEMS PROBLEMS DATE TYPE CONDITION / CODE ATTENDING STATUS SOURCE Unknown D64.9 - Anemia, Wilver, Laith Active [facility] unspecified / Community D64.9(ICD-10) Hospital Repository Unknown I25.10 - Atherosclerotic Luz Maria, [place] Active [facility] heart disease of [place] Community coronary artery without Hospital angina pectoris / Repository I25.10(ICD-10) Unknown Z95.5 - Presence of Luz Maria, [place] Active [facility] coronary angioplasty Community implant and graft / Hospital Z95.5(ICD-10) Repository Unknown R55 - Syncope and Luz Maria, [place] Active [facility] collapse / R55(ICD-10) [facility] Repository Unknown I73.9 - Peripheral Luz Maria, Janes Active [facility] vascular disease, Community unspecified / Hospital I73.9(ICD-10) Repository Unknown I10 - Essential (primary) Luz Maria, [place] Active [facility] hypertension / Community I10(ICD-10) Hospital Repository Unknown E78.5 - Hyperlipidemia, Luz Maria, Janes Active [facility] unspecified / Community E78.5(ICD-10) Hospital Repository Unknown E78.00 - Pure Radha Bran Active [facility] hypercholesterolemia, Community unspecified / Hospital E78.00(ICD-10) Repository Unknown C61 - Malignant neoplasm Radha Bran Active [facility] of prostate / C61(ICD-10) [facility] Repository Unknown I70.213 - Atherosclerosis Filemon Rose Active [facility] of [place] arteries of A [facility] extremities with Hospital intermittent Repository claudication, bilateral legs / I70.213(ICD-10) Unknown 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 - Disorder of bile Filemon Rose Active [facility] acid and cholesterol A Community metabolism, unspecified / Hospital E78.70(ICD-10) Repository Unknown E78.0 - Pure Luz Maria, [place] Active [facility] hypercholesterolemia / Community E78.0(ICD-10) Hospital Repository PROCEDURES PROCEDURES No Procedure Records FoundRESULTS RESULTS WOUND CTR HISTORY Observed: 03/19/2018 Status: F Source: [facility] 5:10 PM [facility] REPOSITORY [facility] [address] [place] [address] Wound Ctr History AND Physical 03/19/18 1657 MR#: [id number] Acct: [id number] Name: FEI OLEARY Rep #: [id number] : 1935 82 From: Armen Fuentes MD PCP: Radha Bran MD Status: REG RCR Y Location: (1) Enteritis Status: Chronic Current Visit: No Code(s): K52.9 - Noninfective gastroenteritis and colitis, unspecified (2) PAD (peripheral artery disease) Status: Chronic Current Visit: Yes Code(s): I73.9 - Peripheral vascular disease, unspecified (3) Urinary incontinence Status: Chronic Current Visit: No Code(s): R32 - Unspecified urinary incontinence (4) Fecal incontinence Status: Chronic Current Visit: No Code(s): R15.9 - Full incontinence of feces (5) History of coronary artery stent placement Status: Chronic Current Visit: No Code(s): Z95.5 - Presence of coronary angioplasty implant and graft Comment: PTCA/Stent to mid RCA 08/06/04; cutting balloon angioplasty with TAMERA to mid RCA 02/19; PTCA/Stent of focal instent stenosis of RCA 06/18/09; PCI/TAMERA to Ostial PDA and PCI-ISR RCA 09/03/13; PCi/TAMERA ISR of mid RCA 10/07/15; FFR mid LAD @ [facility] 10/08/15 (6) Essential (primary) hypertension Status: Chronic Current Visit: No Code(s): I10 - Essential (primary) hypertension (7) Chronic pain of right heel Status: Chronic Current Visit: Yes Code(s): M79.671 - Pain in right foot; G89.29 - Other chronic pain (8) Ulcer of right heel Status: Chronic Current Visit: Yes Qualifiers: Non-pressure ulcer stage: with fat layer exposed Code(s): L97.419 - Non-pressure chronic ulcer of right heel and midfoot with unspecified severity (9) Yeast dermatitis Status: Chronic Current Visit: Yes Code(s): B37.2 - Candidiasis of skin and nail (10) Palpitations Status: Chronic Current Visit: No Code(s): R00.2 - Palpitations (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 Zapata; Stent to distal RSFA to popliteal, Stent Rt. 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 Current Visit: No Qualifiers: Code(s): I25.10 - Atherosclerotic heart disease of [place] coronary artery without angina pectoris Comment: PTCA/Stent to mid RCA 08/06/04; cutting balloon angioplasty with TAMERA to mid RCA 02/19; PTCA/Stent of focal instent stenosis of RCA 06/18/09; PCI/TAMERA to Ostial PDA and PCI-ISR RCA 09/03/13; PCi/TAMERA ISR of mid RCA 10/07/15; FFR mid LAD @ [facility] 10/08/15 (13) GERD (gastroesophageal reflux disease) Status: Chronic Current Visit: No Code(s): K21.9 - Gastro- esophageal reflux disease without esophagitis (14) Hyperlipidemia Status: Chronic Current Visit: No Qualifiers: Code(s): E78.5 - Hyperlipidemia, unspecified (15) Obstructive sleep apnea Status: Chronic Current Visit: No Code(s): G47.33 - Obstructive sleep apnea (adult) (pediatric) (16) Peripheral vascular disease Status: Chronic Current Visit: Yes Code(s): I73.9 - Peripheral vascular disease, unspecified History of Present Illness Chief Complaint: Chronic right heel ulceration History of Wound: This is an 82-year-old male with a long- standing history of ulceration of the right heel. He has been previously treated at our facility for a similar ulceration. The ulceration has been present for at least several years, and has never completely healed, according to the patient and his . The patient does have special shoes, with inserts, that have recently been obtained from [email or web address]. 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 The patient also has known peripheral arterial occlusive disease, and has previously undergone right lower extremity revascularization on 2 occasions. In August 2012, a stent was placed in the right superficial femoral artery at [facility] by Dr. Leonard. In 2013, a stent was placed in the right popliteal artery by Dr. Filemon Rose. Patient has been recently using OptiFoam for the ulceration. He is ambulatory. He sleeps on a flat surface at night, typically on his back. Past Medical History Past Medical History: Chronic Problems (Last Reviewed 02/14/18 @ 20:07 by Mario Sanchez MD) Syncope (Chronic) Enteritis (Chronic) PAD (peripheral artery disease) (Chronic) Urinary incontinence (Chronic) Fecal incontinence (Chronic) History of coronary artery stent placement (Chronic 10/07/15) PTCA/Stent to mid RCA 08/06/04; cutting balloon angioplasty with TAMERA to mid RCA 02/19; PTCA/Stent of focal instent stenosis of RCA 06/18/09; PCI/TAMERA to Ostial PDA and PCI-ISR RCA 09/03/13; PCi/TAMERA ISR of mid RCA 10/07/15; FFR mid LAD @ [facility] 10/08/15 Essential (primary) hypertension (Chronic) Chronic pain of right heel (Chronic) Ulcer of right heel (Chronic) Yeast dermatitis (Chronic) Palpitations (Chronic) Stenosis of femoral artery (Chronic) Right Femoral Artery PTCA/Stent 08/2012; angioplasty and stenting of the Rt SFA @ [facility] per Dr. Zapata; Stent to distal RSFA to popliteal, Stent Rt. Proximal SFA 10/23/13 Atherosclerotic heart disease of [place] coronary artery without angina pectoris (Chronic) PTCA/Stent to mid RCA 08/06/04; cutting balloon angioplasty with TAMERA to mid RCA 02/19; PTCA/Stent of focal instent stenosis of RCA 06/18/09; PCI/TAMERA to Ostial PDA and PCI-ISR RCA 09/03/13; PCi/TAMERA ISR of mid RCA 10/07/15; FFR mid LAD @ [facility] 10/08/15 GERD (gastroesophageal reflux disease) (Chronic) Hyperlipidemia (Chronic) Obstructive sleep apnea (Chronic) Peripheral vascular disease (Chronic) Surgical History: - - The patient is undergone lumbar surgery in the past. He has a history of bilateral shoulder surgery. He has had coronary stents placed, and to proceed stenting was performed in the right lower extremity., rotator cuff repair, tonsillectomy, - Allergies/Adverse Reactions: Allergies carisoprodol Allergy (Verified 02/14/18 17:37) Other itraconazole Allergy (Verified 02/14/18 17:37) Other Home Medications: Ambulatory Orders Medication Instructions Recorded Omeprazole [Prilosec] 20 mg PO DAILY 10/07/15 Aspirin E.C. [Ecotrin] 81 mg PO DAILY 03/08/17 Naproxen 375 mg PO BID PRN 03/08/17 Smoking Status: Never smoker Tobacco Use: Non-smoker Review of Systems Constitutional: Denies: Chills, Fever, Weight Change Eyes: Denies: Pain, Vision Change HEENT: Denies: Difficulty Hearing, Difficulty Swallowing, Sinus Congestion Cardiovascular: Denies: Chest Pain, Palpitations Respiratory: Denies: Cough, Shortness of Breath Gastrointestinal: Denies: Diarrhea, Nausea, Vomiting Genitourinary: Denies: Dysuria, Hematuria Endocrine: Denies: Heat/ Cold Intolerance, Polydipsia, Polyuria Hematologic/ Lymphatic: Denies: Easy Bruising, Easy Bleeding - Physical Exam Vital Signs Temp Pulse Resp BP 97.2 F L 90 18 144/94 H 03/19/18 15:41 03/19/18 15:41 03/19/18 15:41 03/19/18 15:41 General: Alert, Oriented x3, Cooperative, No apparent distress, Well developed, Well nourished HEENT: Atraumatic, PERRLA, EOMI, Normocephalic Oral: Moist Mucosa Neck: No JVD Lungs: Normal air movement Abdomen: Non-Distended Extremities: No clubbing, No cyanosis, No edema, No Calf Tenderness, - - There is no swelling or edema in the lower extremities bilaterally area of the ulceration on the right heel persists. It is little changed in size or shape. Dimensions are documented elsewhere. There is no sign of infection or cellulitis. The base of the ulceration is generally pink and healthy, with a small amount of bioburden. The erythema which was previously noted of the right heel has improved significantly, presumably due to the use of Lotrisone cream. There is now a dry eschar adjacent to the right great toenail, without evidence of associated infection or cellulitis. Skin: No rashes Wound Measurements and Assessment WC - Nurse 1 - General Ulcer Measurement Start: 03/19/18 15:39 Freq: Status: Active Protocol: Activity Type Activity Date Activity User E-Sign Co-Sign Detail Recorded Client Recorded Date Recorded By Document 03/19/18 15:41 DL [id number] 03/19/18 15:44 DL Neurological: Cranial nerves II-XII grossly intact, Neuro grossly intact Psych/Mental Status: Normal Affect, Appropriate, Alert and oriented to time, place, person, mood and affect Debridement Note Laterality: Right - Heel Type of Debridement: Excisional debridement Anesthesia Used: 5% Lidocaine Gel Depth: Down to and including healthy tissue, in the subcutaneous layer - Heel Percentage of wound debrided: 100 Instrument Used: 3mm curette Severity: Fat Layer Exposed Amount of bleeding with debridement: Mild Bleeding Controlled with: Compression and gauze Patient tolerated procedure well Assessment/Plan Active Problems (Last Reviewed 02/14/18 @ 20:07 by Mario Sanchez MD) PAD (peripheral artery disease) (Chronic) Chronic pain of right heel (Chronic) Ulcer of right heel (Chronic) Yeast dermatitis (Chronic) Stenosis of femoral artery (Chronic) Right Femoral Artery PTCA/Stent 08/2012; angioplasty and stenting of the Rt SFA @ [facility] per Dr. Zapata; Stent to distal RSFA to popliteal, Stent Rt. Proximal SFA 10/23/13 Peripheral vascular disease (Chronic) Assessment: This is an 82-year-old male with a long-standing history of ulceration of the right heel. He has been previously treated at this facility, without complete healing of his ulceration. Based upon appearances, there is also an apparent dermatological abnormality of the right heel, with scaly dermatitic changes. The patient has been treated with Lotrisone cream 1% topically to this area, which has resulted in significant improvement. The right heel ulceration persists, and has been treated recently by means of collagenase Santyl applied topically on a daily basis. The patient has undergone recent laboratory studies, with results as follows: White blood count 6.2, hemoglobin 11.1, matter crit 34.5, platelets 370,000, sodium 142, potassium 3.8, BUN 31, creatinine 1.07, glucose 88, total protein 7.3, albumin 3.7, prealbumin 30.9. The patient is also known to have history of peripheral arterial occlusive disease in the right lower extremity, for which he has undergone 2 previous endoluminal revascularizations. A noninvasive lower extremity arterial study was performed on 03/09/18, the results of which show mild arterial occlusive disease to ankle level in the right lower extremity, and severe, distal, small-vessel arterial occlusive disease in the right lower extremity. Plan: We are to continue offloading measures to the right heel. These measures have been discussed with the patient and his . He is to continue wearing his new shoe with insert which was obtained from [email or web address]. He is to take measures during sleeping hours to avoid resting his heel on the bed surface. Laboratory results have been reviewed. Noninvasive lower extremity arterial study has been performed, revealing evidence of arterial occlusive disease in the lower extremities. A consultation with his vascular surgeon has been recommended, Dr. Rose. We will seek to learn whether revascularization of the right lower extremity might enhance the patient's wound healing potential. Collagenase Santyl has been prescribed, and will be used topically on the ulceration of the right heel on a daily basis. Lotrisone 1% cream is to continue topically to the surrounding erythematous, scaly dermatitic skin, which is already showing improvement. The patient has made an appointment with a local podiatric specialist, and recommendations will be awaited. We will defer management of the dry eschar adjacent to the right great toenail until evaluated by the podiatric surgeon. The patient will return in 1 week for reassessment. Influenza vaccine was not administered today. Patient is not a smoker. He weighs 56.28 kg. He stands 1.6 cm in height. His BMI is 20. He is not overweight or obese. 03/19/18 1710 <Electronically signed by Armen Fuentes MD> Date Armen Fuentes MD CC: Signed LOWER EXT ARTERIAL Observed: 03/14/2018 Status: F Source: [place] ST[facility]Y 3:58 PM [facility] REPOSITORY [facility] Cardiovascular Services [address] [id number] 03/14/18 1549 MR#: [id number] Acct: [id number] Name: FEI OLEARY Rep #: [id number] : 1935 82 From: Armen Fuentes MD Attending Dr: Armen Fuentes MD Status: REG RCR Ordering Dr: Date: 03/14/18 Location: Sex: M C Admitted: Arterial Study - Arterial Study Arterial Study: This is an 82-year-old male with a history of peripheral arterial occlusive disease, hyperlipidemia, and hypertension. He has previously undergone lower extremity endoluminal revascularization. He presents with a chronic nonhealing wound of the right lower extremity. He is brought to the noninvasive vascular laboratory at this time for the purpose of bilateral noninvasive lower extremity arterial assessment. Doppler signal assessment was used to evaluate the pulses at ankle level bilaterally. On the right, the posterior tibial and dorsalis pedis pulses were monophasic. The left posterior tibial pulse was biphasic. The left dorsalis pedis pulse was monophasic. Segmental limb pressures were obtained bilaterally. The right ankle pressure, as determined by posterior tibial pulse, was measured at 119 mmHg. The right ankle pressure, as determined by dorsalis pedis pulse, was measured at 96 mmHg. The right digital pressure was measured at 47 mmHg. The left ankle pressure, as determined by posterior tibial pulse, was measured at 131 mmHg. The left ankle pressure, as determined by dorsalis pedis pulse, was measured at 97 mmHg. The left digital pressure was measured at 64 mmHg. Pulse volume recordings were obtained bilaterally at ankle and digital levels. Waveform amplitudes appeared to be diminished bilaterally. Resting ankle-brachial indices were calculated bilaterally. The resting right ankle brachial index was calculated to be 0.77. The resting left ankle brachial index was calculated to be 0.85. Digital brachial indices were calculated bilaterally. The right digital brachial index was calculated to be 0.30. The left digital brachial index was calculated to be 0.41. Impression: Based upon the findings of this resting noninvasive lower extremity arterial study, there is evidence of moderate to severe arterial occlusive disease in the lower extremities bilaterally. Monophasic waveforms were noted at ankle level on the right. Biphasic and monophasic waveforms were noted at ankle level on the left. The resting right ankle brachial index is moderately diminished. The right digital brachial index is severely diminished, consistent with severe impairment of arterial flow at digital level in the right lower extremity. The resting left ankle brachial index is mildly diminished. The left digital brachial index is moderately to severely diminished, consistent with moderate to severe impairment of arterial flow at digital level in the left lower extremity. Clinical correlation is advised. 03/14/18 1558 <Electronically signed by Armen Fuentes MD> Date Armen Fuentes MD CC: Radha Bran MD; Armen Fuentes MD Date Dictated: 03/14/18 1549 Date Transcribed: 03/14/181548 Building Certifier: [email or web address] HISTORY Observed: 03/12/2018 Status: F Source: [place] [facility] 5:15 PM [facility] REPOSITORY [facility] [address] [place] [address] Wound Ctr History AND Physical 03/12/18 1701 MR#: [id number] Acct: [id number] Name: FEI OLEARY Rep #: [id number] : [id number] 82 From: Armen Fuentes MD PCP: Radha Bran MD Status: REG RCR Y Location: (1) PAD (peripheral artery disease) Status: Chronic Current Visit: Yes Code(s): I73.9 - Peripheral vascular disease, unspecified (2) Urinary incontinence Status: Chronic Current Visit: No Code(s): R32 - Unspecified urinary incontinence (3) Fecal incontinence Status: Chronic Current Visit: No Code(s): R15.9 - Full incontinence of feces (4) History of coronary artery stent placement Status: Chronic Current Visit: No Code(s): Z95.5 - Presence of coronary angioplasty implant and graft Comment: PTCA/Stent to mid RCA 08/06/04; cutting balloon angioplasty with TAMERA to mid RCA 02/19; PTCA/Stent of focal instent stenosis of RCA 06/18/09; PCI/TAMERA to Ostial PDA and PCI-ISR RCA 09/03/13; PCi/TAMERA ISR of mid RCA 10/07/15; FFR mid LAD @ [facility] 10/08/15 (5) Essential (primary) hypertension Status: Chronic Current Visit: No Code(s): I10 - Essential (primary) hypertension (6) Chronic pain of right heel Status: Acute Current Visit: Yes Code(s): M79.671 - Pain in right foot; G89.29 - Other chronic pain (7) Ulcer of right heel Status: Chronic Current Visit: Yes Qualifiers: Non-pressure ulcer stage: with fat layer exposed Qualified Code(s): L97.412 - Non-pressure chronic ulcer of right heel and midfoot with fat layer exposed Code(s): L97.419 - Non-pressure chronic ulcer of right heel and midfoot with unspecified severity (8) Atherosclerotic heart disease of [place] coronary artery without angina pectoris Status: Chronic Current Visit: No Qualifiers: Code(s): I25.10 - Atherosclerotic heart disease of [place] coronary artery without angina pectoris Comment: PTCA/Stent to mid RCA 08/06/04; cutting balloon angioplasty with TAMERA to mid RCA 02/19; PTCA/Stent of focal instent stenosis of RCA 06/18/09; PCI/TAMERA to Ostial PDA and PCI-ISR RCA 09/03/13; PCi/TAMERA ISR of mid RCA 10/07/15; FFR mid LAD @ [facility] 10/08/15 (9) GERD (gastroesophageal reflux disease) Status: Chronic Current Visit: No Code(s): K21.9 - Gastro- esophageal reflux disease without esophagitis (10) Hyperlipidemia Status: Chronic Current Visit: No Qualifiers: Code(s): E78.5 - Hyperlipidemia, unspecified (11) Obstructive sleep apnea Status: Chronic Current Visit: No Code(s): G47.33 - Obstructive sleep apnea (adult) (pediatric) (12) Peripheral vascular disease Status: Chronic Current Visit: Yes Code(s): I73.9 - Peripheral vascular disease, unspecified History of Present Illness Chief Complaint: Chronic right heel ulceration History of Wound: This is an 82-year-old male with a long- standing history of ulceration of the right heel. He has been previously treated at our facility for a similar ulceration. The ulceration has been present for at least several years, and has never completely healed, according to the patient and his . The patient does have special shoes, with inserts, that have recently been obtained from [email or web address]. 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 The patient also has known peripheral arterial occlusive disease, and has previously undergone right lower extremity revascularization on 2 occasions. In August 2012, a stent was placed in the right superficial femoral artery at [facility] by Dr. Leonard. In 2013, a stent was placed in the right popliteal artery by Dr. Filemon Rose. Patient has been recently using OptiFoam for the ulceration. He is ambulatory. He sleeps on a flat surface at night, typically on his back. Past Medical History Past Medical History: Chronic Problems (Last Reviewed 02/14/18 @ 20:07 by Mario Sanchez MD) PAD (peripheral artery disease) (Chronic) Urinary incontinence (Chronic) Fecal incontinence (Chronic) History of coronary artery stent placement (Chronic 10/07/15) PTCA/Stent to mid RCA 08/06/04; cutting balloon angioplasty with TAMERA to mid RCA 02/19; PTCA/Stent of focal instent stenosis of RCA 06/18/09; PCI/TAMERA to Ostial PDA and PCI-ISR RCA 09/03/13; PCi/TAMERA ISR of mid RCA 10/07/15; FFR mid LAD @ [facility] 10/08/15 Essential (primary) hypertension (Chronic) Ulcer of right heel (Chronic) Stenosis of femoral artery (Chronic) Right Femoral Artery PTCA/Stent 08/2012; angioplasty and stenting of the Rt SFA @ [facility] per Dr. Zapata; Stent to distal RSFA to popliteal, Stent Rt. Proximal SFA 10/23/13 Atherosclerotic heart disease of [place] coronary artery without angina pectoris (Chronic) PTCA/Stent to mid RCA 08/06/04; cutting balloon angioplasty with TAMERA to mid RCA 02/19; PTCA/Stent of focal instent stenosis of RCA 06/18/09; PCI/TAMERA to Ostial PDA and PCI-ISR RCA 09/03/13; PCi/TAMERA ISR of mid RCA 10/07/15; FFR mid LAD @ [facility] 10/08/15 GERD (gastroesophageal reflux disease) (Chronic) Hyperlipidemia (Chronic) Obstructive sleep apnea (Chronic) Peripheral vascular disease (Chronic) Surgical History: - - The patient is undergone lumbar surgery in the past. He has a history of bilateral shoulder surgery. He has had coronary stents placed, and to proceed stenting was performed in the right lower extremity., rotator cuff repair, tonsillectomy, - Allergies/Adverse Reactions: Allergies carisoprodol Allergy (Verified 02/14/18 17:37) Other itraconazole Allergy (Verified 02/14/18 17:37) Other Home Medications: Ambulatory Orders Medication Instructions Recorded Omeprazole [Prilosec] 20 mg PO DAILY 10/07/15 Aspirin E.C. [Ecotrin] 81 mg PO DAILY 03/08/17 Naproxen 375 mg PO BID PRN 03/08/17 Lives: Spouse/ Significant Other Smoking Status: Never smoker Tobacco Use: Non-smoker Alcohol: None Drugs: None Review of Systems Constitutional: Denies: Chills, Fever, Weight Change Eyes: Denies: Pain, Vision Change HEENT: Denies: Difficulty Hearing, Difficulty Swallowing, Sinus Congestion Cardiovascular: Denies: Chest Pain, Palpitations Respiratory: Denies: Cough, Shortness of Breath Gastrointestinal: Denies: Diarrhea, Nausea, Vomiting Genitourinary: Denies: Dysuria, Hematuria Endocrine: Denies: Heat/ Cold Intolerance, Polydipsia, Polyuria Hematologic/ Lymphatic: Denies: Easy Bruising, Easy Bleeding - Physical Exam Vital Signs Temp Pulse Resp BP 96.6 F L 69 18 136/77 H 03/12/18 16:28 03/12/18 16:28 03/12/18 16:28 03/12/18 16:28 General: Alert, Oriented x3, Cooperative, No apparent distress, Well developed, Well nourished HEENT: Atraumatic, PERRLA, EOMI, Normocephalic Oral: Moist Mucosa Neck: No JVD Lungs: Normal air movement Abdomen: Non-Distended Extremities: No clubbing, No cyanosis, No edema, No Calf Tenderness, - - The ulceration of the right heel persists. It appears pink and healthy in appearance. There is no sign of infection or cellulitis. The dermatitic changes of the right heel, previously noted, have improved. Ulcer dimensions have diminished as well, and are documented elsewhere. There is a small amount of bioburden. Wound Measurements and Assessment WC - Nurse 1 - General Ulcer Measurement Start: 03/05/18 15:20 Freq: Status: Active Protocol: Activity Type Activity Date Activity User E-Sign Co-Sign Detail Recorded Client Recorded Date Recorded By Document 03/12/18 16:28 [id number] 03/12/18 16:34 Wound Center Nurse 1 [Ulcer Assessment] #6 RIGHT HEEL -Combined with other wound No -Current Size (cm) - Length 0.3 -Current Size (cm) - Width 0.4 -Current Size (cm) - Depth 0.2 WC - Nurse 2 - General Ulcer CM Notes Start: 03/05/18 15:20 Freq: Status: Active Protocol: Activity Type Activity Date Activity User E-Sign Co-Sign Detail Recorded Client Recorded Date Recorded By Document 03/12/18 16:54 [id number] 03/12/18 16:58 [facility] W[facility] Nurse 2 [Procedure/Treatment] Musculoskeletal: No Muscle Wasting Neurological: Cranial nerves II-XII grossly intact, Neuro grossly intact Psych/Mental Status: Normal Affect, Appropriate, Alert and oriented to time, place, person, mood and affect Debridement Note Post-Debridement Measurements/Treatment WC - Nurse 2 - General Ulcer CM Notes Start: 03/05/18 15:20 Freq: Status: Active Protocol: Activity Type Activity Date Activity User E-Sign Co-Sign Detail Wound Center Nurse 2 #6 RIGHT HEEL -Time 15:58 16:54 -Correct Patient Yes Yes -Correct Side, Site, Position Yes Yes Laterality: Right - Heel ulceration Type of Debridement: Excisional debridement Anesthesia Used: 5% Lidocaine Gel Depth: Down to and including healthy tissue, in the subcutaneous layer Percentage of wound debrided: 100 Instrument Used: 3mm curette Severity: Fat Layer Exposed Amount of bleeding with debridement: Mild Bleeding Controlled with: Compression and gauze Patient tolerated procedure well Assessment/Plan Active Problems (Last Reviewed 02/14/18 @ 20:07 by Mario Sanchez MD) PAD (peripheral artery disease) (Chronic) Chronic pain of right heel (Acute) Ulcer of right heel (Chronic) Peripheral vascular disease (Chronic) Assessment: This is an 82-year-old male with a long-standing history of ulceration of the right heel. He has been previously treated at this facility, without complete healing of his ulceration. Based upon appearances, there is also an apparent dermatological abnormality of the right heel, with scaly dermatitic changes. Patient has gone recent laboratory studies, with results as follows: White blood count 6.2, hemoglobin 11.1, matter crit 34.5, platelets 370,000, sodium 142, potassium 3.8, BUN 31, creatinine 1.07, glucose 88, total protein 7.3, albumin 3.7, prealbumin 30.9. The patient is also known to have history of peripheral arterial occlusive disease in the right lower extremity, for which he is undergone 2 previous endoluminal revascularizations. A noninvasive lower extremity arterial study was performed on 03/09/18, the results of which show mild arterial occlusive disease to ankle level in the right lower extremity, and severe, distal, small-vessel arterial occlusive disease in the right lower extremity. Plan: We are to implement offloading measures to the right heel. These measures have been discussed with the patient and his . He is to continue wearing his new shoe with insert which was obtained from [email or web address]. He is to take measures during sleeping hours to avoid resting his heel on the bed surface. Laboratory results have been reviewed. We are to also obtain a noninvasive lower extremity arterial study, with only ABIs, as placement of blood pressure cuffs at a higher level is to be avoided given the patient's prior stenting procedures. Collagenase Santyl has been prescribed, and will be used topically on the ulceration of the right heel on a daily basis. Lotrisone 1% cream is to be applied topically to the surrounding scaly dermatitic skin. The patient will return in 1 week for reassessment. Influenza vaccine was not administered today. Patient is not a smoker. He weighs 56.28 kg. He stands 1.6 cm in height. His BMI is 20. He is not overweight or obese. 03/12/18 2065 <Electronically signed by Armen Fuentes MD> Date Armen Fuentes MD CC: Signed WOUND CTR HISTORY Observed: 03/05/2018 Status: F Source: [place] [facility] 4:36 PM [facility] REPOSITORY [facility] [address] [place] [id number] Wound Ctr History AND Physical 03/05/18 1620 MR#: [id number] Acct: [id number] Name: FEI OLEARY Rep #: [id number] : 1935 82 From: Armen Fuentes MD PCP: Radha Bran MD Status: REG RCR Y Location: (1) PAD (peripheral artery disease) Status: Chronic Current Visit: Yes Code(s): I73.9 - Peripheral vascular disease, unspecified (2) Urinary incontinence Status: Chronic Current Visit: No Code(s): R32 - Unspecified urinary incontinence (3) Fecal incontinence Status: Chronic Current Visit: No Code(s): R15.9 - Full incontinence of feces (4) History of coronary artery stent placement Status: Chronic Current Visit: No Code(s): Z95.5 - Presence of coronary angioplasty implant and graft Comment: PTCA/Stent to mid RCA 08/06/04; cutting balloon angioplasty with TAMERA to mid RCA 02/19; PTCA/Stent of focal instent stenosis of RCA 06/18/09; PCI/TAMERA to Ostial PDA and PCI-ISR RCA 09/03/13; PCi/TAMERA ISR of mid RCA 10/07/15; FFR mid LAD @ [facility] 10/08/15 (5) Essential (primary) hypertension Status: Chronic Current Visit: No Code(s): I10 - Essential (primary) hypertension (6) Chronic pain of right heel Status: Acute Current Visit: Yes Code(s): M79.671 - Pain in right foot; G89.29 - Other chronic pain (7) Ulcer of right heel Status: Chronic Current Visit: Yes Qualifiers: Non-pressure ulcer stage: with fat layer exposed Qualified Code(s): L97.412 - Non-pressure chronic ulcer of right heel and midfoot with fat layer exposed Code(s): L97.419 - Non-pressure chronic ulcer of right heel and midfoot with unspecified severity (8) Atherosclerotic heart disease of [place] coronary artery without angina pectoris Status: Chronic Current Visit: No Qualifiers: Code(s): I25.10 - Atherosclerotic heart disease of [place] coronary artery without angina pectoris Comment: PTCA/Stent to mid RCA 08/06/04; cutting balloon angioplasty with TAMERA to mid RCA 02/19; PTCA/Stent of focal instent stenosis of RCA 06/18/09; PCI/TAMERA to Ostial PDA and PCI-ISR RCA 09/03/13; PCi/TAMERA ISR of mid RCA 10/07/15; FFR mid LAD @ [facility] 10/08/15 (9) GERD (gastroesophageal reflux disease) Status: Chronic Current Visit: No Code(s): K21.9 - Gastro- esophageal reflux disease without esophagitis (10) Hyperlipidemia Status: Chronic Current Visit: No Qualifiers: Code(s): E78.5 - Hyperlipidemia, unspecified (11) Obstructive sleep apnea Status: Chronic Current Visit: No Code(s): G47.33 - Obstructive sleep apnea (adult) (pediatric) (12) Peripheral vascular disease Status: Chronic Current Visit: Yes Code(s): I73.9 - Peripheral vascular disease, unspecified History of Present Illness Date of Service: 03/05/18 Chief Complaint: Chronic right heel ulceration History of Wound: This is an 82-year-old male with a long- standing history of ulceration of the right heel. He has been previously treated at our facility for a similar ulceration. The ulceration has been present for at least several years, and has never completely healed, according to the patient and his . The patient does have special shoes, with inserts, that have recently been obtained from [email or web address]. 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 The patient also has known peripheral arterial occlusive disease, and has previously undergone right lower extremity revascularization on 2 occasions, both of which were performed endoluminal E. In August 2012, a stent was placed in the right superficial femoral artery at [facility] by Dr. Leonard. In 2013, a stent was placed in the right popliteal artery by Dr. Filemon Rose. Patient has been recently using OptiFoam for the ulceration. He is ambulatory. He sleeps on a flat surface at night, typically on his back. Past Medical History Past Medical History: Chronic Problems (Last Reviewed 02/14/18 @ 20:07 by Mario Sanchez MD) PAD (peripheral artery disease) (Chronic) Urinary incontinence (Chronic) Fecal incontinence (Chronic) History of coronary artery stent placement (Chronic 10/07/15) PTCA/Stent to mid RCA 08/06/04; cutting balloon angioplasty with TAMERA to mid RCA 02/19; PTCA/Stent of focal instent stenosis of RCA 06/18/09; PCI/TAMERA to Ostial PDA and PCI-ISR RCA 09/03/13; PCi/TAMERA ISR of mid RCA 10/07/15; FFR mid LAD @ [facility] 10/08/15 Essential (primary) hypertension (Chronic) Ulcer of right heel (Chronic) Stenosis of femoral artery (Chronic) Right Femoral Artery PTCA/Stent 08/2012; angioplasty and stenting of the Rt SFA @ [facility] per Dr. Zapata; Stent to distal RSFA to popliteal, Stent Rt. Proximal SFA 10/23/13 Atherosclerotic heart disease of [place] coronary artery without angina pectoris (Chronic) PTCA/Stent to mid RCA 08/06/04; cutting balloon angioplasty with TAMERA to mid RCA 02/19; PTCA/Stent of focal instent stenosis of RCA 06/18/09; PCI/TAMERA to Ostial PDA and PCI-ISR RCA 09/03/13; PCi/TAMERA ISR of mid RCA 10/07/15; FFR mid LAD @ [facility] 10/08/15 GERD (gastroesophageal reflux disease) (Chronic) Hyperlipidemia (Chronic) Obstructive sleep apnea (Chronic) Peripheral vascular disease (Chronic) Past Medical History: Patient has a history of peripheral arterial occlusive disease, having undergone several right lower extremity revascularizations in the past. He also has a history of hypertension, hyperlipidemia, urinary incontinence, fecal incontinence, and prostate cancer. His history is negative for diabetes mellitus, cerebrovascular accident, pulmonary disease, renal disease, and thyroid disease. Surgical History: - - The patient is undergone lumbar surgery in the past. He has a history of bilateral shoulder surgery. He has had coronary stents placed, and to proceed stenting was performed in the right lower extremity., rotator cuff repair, tonsillectomy, - Allergies/Adverse Reactions: Allergies carisoprodol Allergy (Verified 02/14/18 17:37) Other itraconazole Allergy (Verified 02/14/18 17:37) Other Home Medications: Ambulatory Orders Medication Instructions Recorded Omeprazole [Prilosec] 20 mg PO DAILY 10/07/15 Aspirin E.C. 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 He is . He denies use of alcohol and tobacco products. Lives: Spouse/ Significant Other Smoking Status: Never smoker Tobacco Use: Non-smoker Alcohol: None Drugs: None Review of Systems Constitutional: Denies: Chills, Fever, Weight Change Eyes: Denies: Pain, Vision Change HEENT: Denies: Difficulty Hearing, Difficulty Swallowing, Sinus Congestion Cardiovascular: Denies: Chest Pain, Palpitations Respiratory: Denies: Cough, Shortness of Breath Gastrointestinal: Denies: Diarrhea, Nausea, Vomiting Genitourinary: Denies: Dysuria, Hematuria Endocrine: Denies: Heat/ Cold Intolerance, Polydipsia, Polyuria Hematologic/ Lymphatic: Denies: Easy Bruising, Easy Bleeding - Physical Exam Vital Signs Temp Pulse Resp BP 97.7 F L 87 16 149/87 H 03/05/18 15:21 03/05/18 15:21 03/05/18 15:21 03/05/18 15:21 General: Alert, Oriented x3, Cooperative, No apparent distress, Well developed, Well nourished HEENT: Atraumatic, PERRLA, EOMI, Normocephalic Oral: Moist Mucosa Neck: No JVD, Negative Carotid Bruits, Negative Hepatojugular Reflux, No Nodes, No Nuchal Rigidity, Trachea Midline Lungs: Clear to auscultation, Normal air movement, No rhonchi, No wheeze, No rales Cardiovascular: Regular rate, Regular Rhythm, Normal S1, Normal S2, No murmurs Abdomen: Soft, Non Tender, Non-Distended Extremities: No clubbing, No cyanosis, No edema, No Calf Tenderness, - - There is no significant swelling or edema in the patient's lower extremities. There is a very small ulceration on the right heel, located on the plantar surface, but lateral. Dimensions are documented elsewhere. There is no obvious sign of infection or cellulitis. The base of the ulceration is generally pink and healthy in appearance, with a small amount of bioburden. Of note, there is significant scaly dermatitis on the right heel surrounding the ulceration. Wound Measurements and Assessment WC - Nurse 1 - General Ulcer Measurement Start: 03/05/18 15:20 Freq: Status: Active Protocol: Activity Type Activity Date Activity User E-Sign Co-Sign Detail Recorded Client Recorded Date Recorded By Document 03/05/18 15:21 [id number] 03/05/18 15:33 Wound Center Nurse 1 [Ulcer Assessment] #6 RIGHT HEEL -Combined with other wound No -Current Size (cm) - Length 0.2 -Current Size (cm) - Width 0.2 WC - Nurse 2 - General Ulcer CM Notes Start: 03/05/18 15:20 Freq: Status: Active Protocol: Activity Type Activity Date Activity User E-Sign Co-Sign Detail Recorded Client Recorded Date Recorded By Document 03/05/18 15:50 [id number] 03/05/18 16:00 DV Neurological: Cranial nerves II-XII grossly intact, Neuro grossly intact Psych/Mental Status: Normal Affect, Alert and oriented to time, place, person, mood and affect Debridement Note Post-Debridement Measurements/Treatment WC - Nurse 2 - General Ulcer CM Notes Start: 03/05/18 15:20 Freq: Status: Active Protocol: Activity Type Activity Date Activity User E-Sign Co-Sign Detail Recorded Client Recorded Date Recorded By Document 03/05/18 15:50 DV [id number] 03/05/18 16:00 DV Wound Center Nurse 2 #6 RIGHT HEEL -Time 15:58 -Correct Patient Yes -Correct Side, Site, Position Yes Laterality: Right - He will Type of Debridement: Excisional debridement Anesthesia Used: 5% Lidocaine Gel Depth: Down to and including healthy tissue, in the subcutaneous layer Percentage of wound debrided: 100 Instrument Used: 7mm curette Severity: Fat Layer Exposed Amount of bleeding with debridement: Mild Bleeding Controlled with: Compression and gauze Patient tolerated procedure well Assessment/Plan Active Problems (Last Reviewed 02/14/18 @ 20:07 by Mario Sanchez MD) PAD (peripheral artery disease) (Chronic) Chronic pain of right heel (Acute) Ulcer of right heel (Chronic) Peripheral vascular disease (Chronic) Assessment: This is an 82-year-old male with a long-standing history of ulceration of the right heel. He has been previously treated at this facility, without complete healing of his ulceration. Based upon appearances, there is also an apparent dermatological abnormality of the right heel, with scaly dermatitic changes. Patient has gone recent laboratory studies, with results as follows: White blood count 6.2, hemoglobin 11.1, matter crit 34.5, platelets 370,000, sodium 142, potassium 3.8, BUN 31, creatinine 1.07, glucose 88, total protein 7.3, albumin 3.7, prealbumin 30.9. The patient is also known to have history of peripheral arterial occlusive disease in the right lower extremity, for which she is undergone 2 previous endoluminal revascularizations. Plan: We are to implement offloading measures to the right heel. These measures have been discussed with the patient and his . He is to continue wearing his new shoe with insert which was obtained from [email or web address]. He is to take measures during sleeping hours to avoid resting his heel on the bed surface. Laboratory results have been reviewed. We are to also obtain a noninvasive lower extremity arterial study, with only ABIs, as placement of blood pressure cuffs at a higher level is to be avoided given the patient's prior stenting procedures. Collagenase Santyl has been prescribed, and will be used topically on the ulceration of the right heel on a daily basis. Lotrisone 1% cream is to be applied topically to the surrounding scaly dermatitic skin. The patient will return in 1 week for reassessment. Influenza vaccine was not administered today. Patient is not a smoker. He weighs 56.28 kg. He stands 1.6 cm in height. His BMI is 20. He is not overweight or obese. 03/05/18 1636 <Electronically signed by Armen Fuentes MD> Date Armen Fuentes MD CC: Signed 12 LEAD ELECTROCARDIOGRAM Observed: 02/21/2018 Status: F Source: [place] 2:21 PM [facility] REPOSITORY [facility] Cardiovascular Services [address] [place] [address] 12 Lead EKG 02/14/18 1737 MR#: [id number] Acct: [id number] Name: FEI OLEARY Rep #: [id number] : 1935 82 From: Janes Loera MD Attending Dr: Mark Goldstein DO Status: DIS MELLO Ordering Dr: Cody Vargas MD Date: 02/14/18 Location: [facility] Sex: M C Admitted: 02/14/18 Test Reason : CHEST PAIN Blood Pressure : / mmHG Vent. Rate : 068 BPM Atrial Rate : 267 BPM P-R Int : 000 ms QRS Dur : 104 ms QT Int : 442 ms P-R-T Axes : 000 084 079 degrees QTc Int : 469 ms Normal sinus rhythm Otherwise normal ECG Confirmed by JANES LOERA MD ([id number]), editor book FREDI BRAN ([id number]) on 02/21/2018 2:21:11 PM Referred By: Mario Sanchez Confirmed By:JANES LOERA MD 02/21/18 142 Date Janes Loera MD CC: Mark Goldstein DO; Radha Bran MD; Mario Sanchez MD; Cody Vargas Signed 12 LEAD ELECTROCARDIOGRAM Observed: 02/21/2018 Status: F Source: [place] 2:21 PM [facility] REPOSITORY [facility] Cardiovascular Services [address] [place] [address] 12 Lead EKG 02/14/181928 MR#: [id number] Acct: [id number] Name: FEI OLEARY Rep #: [id number] : 1935 82 From: Janes Loera MD Attending Dr: Mark Goldstein DO Status: DIS MELLO Ordering Dr: Cody Vargas MD Date: 02/14/18 Location: [facility] Sex: M C Admitted: 02/14/18 Test Reason : POSS A-FIB Blood Pressure : / mmHG Vent. Rate : 082 BPM Atrial Rate : 080 BPM P-R Int : 000 ms QRS Dur : 136 ms QT Int : 442 ms P-R-T Axes : 000 071 052 degrees QTc Int : 516 ms Atrial fibrillation Right bundle branch block Abnormal ECG Confirmed by JANES LOERA MD ([id number]), FREDI Braswell ([id number]) on 02/21/2018 2:21:29 PM Referred By: Mario Sanchez Confirmed By:JANES LOERA MD 02/21/18 142 Date Janes Loera MD CC: Mark Goldstein DO; Radha Bran MD; Mario Sanchez MD; Cody Vargas Signed CBC-COMPLETE BLOOD CNT Collected: 02/20/2018 Status: F Source: [place] NO DIFF 10:17 AM [facility] REPOSITORY Order Comment: Send Results To: PCP, Dr. Loera Reason for Laboratory Test Anemia TYPE CODE TESTS RESULT OUT OF RANGE REFERENCE UNITS LAB L100.1000 4.4-11.0 K/mm3 Normal WBC 6.2 LAB L100.1200 4.6-6.2 M/mm3 Low RBC 3.48 LAB L100.1300 13.0-16.5 g/dl Low HGB 11.1 LAB L100.1400 40-54 % Low HCT 34.5 LAB L100.1500 80-94 fL High MCV 99.1 LAB L100.1600 27.0-32.0 pg Normal MCH 31.9 LAB L100.1700 32-36 g/gl Normal MCHC 32.2 LAB L100.1810 11.6-14.6 % High RDW CV 14.9 LAB L100.1820 35.1-43.9 fl High RDW SD 53.7 LAB L100.1900 150-450 K/mm3 Normal PLT 370 LAB L100.2000 6.2-12.0 fl Normal MPV 8.7 Performed By: #### L100.0500 #### [facility] [address] [facility] [place], [address] CONSULTATION Observed: 02/16/2018 Status: F Source: [place] 8:23 AM [facility] REPOSITORY [facility] Medical Records Department [address] [facility] [place] [address] Consultation 02/15/18 0655 MR#: [id number] Acct: [id number] Name: FEI OLEARY Rep #: [id number] : 1935 82 From: Janes Loera MD PCP: Radha Bran MD Status: DIS MELLO Y Location: [place] [address] Reason for Consult Date of Consultation: 02/15/18 Reason for Consultation: Syncope History of Present Illness: FEI OLEARY, is a 82 M who presented to the emergency room following a syncopal episode. He says that he had been in his stable state of health until yesterday evening when while eating dinner he suddenly felt that he was perspiring and then the next thing he knew the EMS was carrying him out of the room. He had had 2 episodes of diarrhea earlier on in the day but no blood was noted. He has been compliant with all his medications and no changes have been made recently. In the emergency room he was noted to be mildly hypotensive and EKG was done which demonstrated sinus rhythm with premature atrial complexes. No evidence of atrial fibrillation is noted on the strips despite the computer interpretation. As you remember, he is a gentleman with a history of coronary artery disease status post angioplasty and stenting of the right coronary artery 2 in 2004 restenosis in 2011 and again in 2013 and 2015. His last cardiac catheterization 2015 demonstrated severe two- vessel disease with a 50% stenosis of the mid left anterior descending artery for which she underwent fractional flow reserve evaluation which was 0.86 and was not hemodynamically significant. He underwent angioplasty and stenting of a restenotic right coronary artery lesion. He is done well since then with no chest pain or shortness of breath or paroxysmal nocturnal dyspnea he is not able to exert himself much because of other noncardiac issues. He has had some bilateral lower extremity edema and some shortness of breath with activity. His laboratory tests have been reviewed and he is noted to have had a drop in his hemoglobin. Past Medical History Allergies/Adverse Reactions: Allergies carisoprodol Allergy (Verified 02/14/18 17:37) Other itraconazole Allergy (Verified 02/14/18 17:37) Other Home Medications: Ambulatory Orders Medication Instructions Recorded Past Medical History (Chronic Problems): Chronic Problems (Last Reviewed 02/14/18 @ 20:07 by Mario Sanchez MD) Essential (primary) hypertension (Chronic) Stenosis of femoral artery (Chronic) Right Femoral Artery PTCA/Stent 08/2012; angioplasty and stenting of the Rt SFA @ [facility] per Dr. Zapata; Stent to distal RSFA to popliteal, Stent Rt. Proximal SFA 10/23/13 Atherosclerotic heart disease of [place] coronary artery without angina pectoris (Chronic) PTCA/Stent to mid RCA 08/06/04; cutting balloon angioplasty with TAMERA to mid RCA 02/19; PTCA/Stent of focal instent stenosis of RCA 06/18/09; PCI/TAMERA to Ostial PDA and PCI-ISR RCA 09/03/13; PCi/TAMERA ISR of mid RCA 10/07/15; FFR mid LAD @ [facility] 10/08/15 GERD (gastroesophageal reflux disease) (Chronic) Hyperlipidemia (Chronic) Obstructive sleep apnea (Chronic) Peripheral vascular disease (Chronic) Surgical History: -, rotator cuff repair, tonsillectomy, - - *Family History Maternal Family History: Family History (Last Reviewed 02/14/18 @ 20:07 by Mario Sanchez MD) Mother CVA (cerebral vascular accident) Sister Hypertension Paternal Family History: Family History (Last Reviewed 02/14/18 @ 20:07 by Mario Sanchez MD) Mother CVA (cerebral vascular accident) Sister Hypertension Lives: Spouse/ Significant Other Smoking Status: Former smoker Tobacco Use: Non-smoker Alcohol: None Drugs: None Review of Systems - Review of Systems General: Denies: Fever Cardiovascular: Reports: Near Syncope, Syncope. Denies: Chest Discomfort, Shortness of Breath, Orthopnea, PND, Peripheral Edema, Palpitations, Lightheadedness, Dizziness Respiratory: Denies: Cough, Sputum Production, Hemoptysis Gastrointestinal: Denies: Hematemesis, Hematochezia, Melena Genitourinary: Denies: Dysuria, Hematuria Skin: Denies: Rash Neurological: Denies: Dizziness Psychiatric: Denies: Anxiety Endocrine: Denies: Unexplained Weight Loss Hematologic/ Lymphatic: Reports: Anemia Subjectve: Pleasant gentleman in no apparent distress Objective: Vital Signs Temp Pulse Resp BP Pulse Ox 97.9 F 63 11 L 116/68 97 02/15/18 06:10 02/15/18 06:14 02/15/18 06:10 02/15/18 06:14 02/15/18 06:10 Oxygen Delivery Method Room Air Weight: 121 lb 11.123 oz Body Mass Index (BMI) 19.6 Orthostatic Vital Signs Start: 02/14/18 21:18 Freq: q24h Status: Active Protocol: Activity Type Activity Date Activity User E-Sign Co-Sign Detail Recorded Client Recorded Date Recorded By Document 02/15/18 06:14 EEJ [id number] 02/15/18 06:15 EEJ Orthostatic Vitals Standing -Blood Pressure (90/60-120/80) 138/77 H -Extremity Use Left Arm -Pulse Rate (60-100) 82 Sitting -Blood Pressure (90/60-120/80) 129/75 H Intake and Output for Last 24 Hours Intake Total 720 / 720 100 / 100 Balance 720 / 720 100 / 100 General: Awake, Alert, Oriented x 3 HEENT: PERRL, EOMI, Sclera Non Icteric Neck: Supple, Good ROM, No Lymph Node Enlargement Lungs: Clear to auscultation Cardiovascular: Regular Rhythm, Normal S1, Normal S2, No Murmurs, No Rubs, No Gallops Vascular: No Carotid Bruits, Normal Femoral Pulses, Normal Radial Pulses, Normal Dorsalis Pedal Pulse, Normal Posterior Tibial Pulses Abdomen: Bowel Sounds Present, Soft, Non Tender, No HSM, No Organomegaly Extremities: No Cyanosis, No Clubbing, No edema Musculoskeletal: No Erythema, Arthritic Changes Skin: No Rashes Lymphatic: No Lymph Node Enlargement Neurological: No Focal Motor or Sensory Deficit Psych/Mental Status: Appropriate 02/14/18 17:45: WBC 5.6, RBC 3.51 L, Hgb 11.2 L, Hct 34.5 L, MCV 98.3 H, MCH 31.9, MCHC 32.5, RDW 14.5, RDW Differential 49.9 H, Plt Count 386, MPV 8.6, Immature Gran % (Auto) 0.000, Neut % (Auto) 69.8, Lymph % (Auto) 17.7 L, [place] % (Auto) 10.8 H, Eos % (Auto) 1.3, Baso % (Auto) 0.4, Absolute Neuts (auto) 3.9, Total Counted Not Reportable 02/14/18 17:45: PT 13.6, INR 1.0, APTT 24.3 02/14/18 17:45: Sodium 139, Potassium 3.3 L, Chloride 102, Carbon Dioxide 28.0, Anion Gap 9, BUN 29 H, Creatinine 1.20, Est GFR (MDRD) Af Amer 74, Est GFR (MDRD) Non-Af 61, BUN/Creatinine Ratio 24.2 H, Glucose 109 H, Calcium 8.8, Troponin I < 0.015 02/15/18 05:35: Sodium 142, Potassium 3.8, Chloride 105, Carbon Dioxide 29.0, Anion Gap 8, BUN 31 H, Creatinine 1.07, Est GFR (MDRD) Af Amer 85, Est GFR (MDRD) Non-Af 70, BUN/Creatinine Ratio 29.0 H, Glucose 88, Calcium 8.8 02/15/18 05:35: WBC 6.1, RBC 3.09 L, Hgb 9.8 L, Hct 30.1 L, MCV 97.4 H, MCH 31.7, MCHC 32.6, RDW 14.7 H, RDW Differential 52.8 H, Plt Count 284, MPV 8.7, Immature Gran % (Auto) 0.200, Neut % (Auto) 71.9 H, Lymph % (Auto) 14.7 L, Oldham % (Auto) 10.9 H, Eos % (Auto) 2.1, Baso % (Auto) 0.2, Absolute Neuts (auto) 4.4, Total Counted Not Reportable Rhythm: EKG: Normal sinus rhythm with premature atrial complexes and a right bundle branch block pattern Assessment/Plan 1. Syncope * The etiology is unclear but it likely appears to be vagal in origin. He had had 2 episodes of diarrhea and is noted to be anemic. He does have a right bundle branch block which is chronic. I do not see any evidence of atrial fibrillation. * My recommendation will be to obtain an echocardiogram to assess his left ventricular function * Obtain stool guaiac as well as serial hemoglobin to exclude ongoing bleed especially as he is on aspirin and Plavix * At this time I do not think that a 30-day event monitor would be helpful. We may continue to monitor him over the next 24 hours to see whether there are any rhythm abnormalities noted. * 2. Coronary artery disease * Does have evidence of coronary artery disease but at this time it does not appear that there was any ischemic component to the above. * We will continue his current medications. * Also continue lipid-lowering medications. * 3. Peripheral vascular disease * Appears to be stable with regard to the above. * * Thank you for allowing me to participate in the care of your patient. Please don't hesitate to call if any issues arise 02/16/18 1324 <Electronically signed by Janes Loera MD> Date Janes Loera MD Cosigner Signature (if applicable): Date CC: Janes Loera MD; Radha Bran MD; Mario Sanchez MD Signed DISCHARGE INSTRUCTION Observed: 02/15/2018 Status: F Source: [place] 4:59 PM [facility] REPOSITORY [facility] Medical Records Department [address] [place] [address] Instructions for Home/Discharge Instructions 02/15/18 1328 MR#: [id number] Acct: [id number] Name: FEI OLEARY Rep #: [id number] : 1935 82 From: Laith SAGE PCP: Radha Bran MD Status: ADM MELLO ADDENDUM by ALONA Pettit on 02/15/18 at 1659 Echo is normal per Dr. Loera, Keep next appointment with Dr. Loera as scheduled. You need to have a CBC checked in 1 week at the lab of your choice. 02/15/18 1659 Date Laith Pettit cc: Janes Loera MD; Radha Bran MD * Signed - Discharge Diagnoses Current Active Problems: Current Active and Chronic Problems (Last Reviewed 02/14/18 @ 20:07 by Mario Sacnhez MD) Syncope (Acute) Enteritis (Acute) You will use the following diet at home:: Cardiac Your food should be the consistency of: Regular Your liquids should be the consistency of: Regular/Thin Discharge Activity: Return to Normal Activity Allergies/Adverse Reactions: Allergies carisoprodol Allergy (Verified 02/14/18 17:37) Other itraconazole Allergy (Verified 02/14/18 17:37) Other Medications to take at Discharge Clopidogrel Bisulfate [Plavix] 75 mg PO DAILY 01/14/13 Omeprazole [Prilosec] 20 mg PO DAILY 10/07/15 Aspirin E.C. [Ecotrin] 81 mg PO DAILY 03/08/17 Naproxen 375 mg PO BID PRN 03/08/17 Vitamin E 400 unit PO DAILY 03/08/17 metoprolol succinate ER 25 mg tablet,extended release 24 hr 12.5 mg PO QDAY #45 tab 06/15/17 lisinopril 10 mg tablet 10 mg PO QDAY #90 tab 08/03/17 Acetaminophen [Tylenol Extra Strength] 500 mg PO BID 02/14/18 Atorvastatin Calcium [Lipitor] 20 mg PO QHS 02/14/18 Duloxetine HCl 30 mg PO DAILY 02/14/18 Ferrous Gluconate 324 mg PO DAILY 02/14/18 Furosemide [Lasix] 40 mg PO DAILY 02/14/18 Multivit-Min/FA/Lycopen/Lutein [Centrum Silver Men Tablet] 1 tab PO DAILY 02/14/18 Nitroglycerin 0.4 mg PO PRN PRN 02/14/18 Primary Care Physician: Radha Bran MD [Primary Care Provider] - Please follow up with your Primary Care Physician in: 1-2 weeks Test Results: Test results from this visit will be discussed in further detail at your follow-up appointment, if applicable. Proposed Discharge Date: 02/15/18 02/15/18 1329 <Electronically signed by Laith ASGE> Date Laith SAGE CC: Janes Loera MD; Radha Bran MD ECHOCARDIOGRAM COMPLETE Observed: 02/15/2018 Status: F Source: [place] 4:53 PM [facility] REPOSITORY [facility] Cardiovascular Services [address] [place] [address] Echo Complete 02/15/18 1108 MR#: [id number] Acct: [id number] Name: FEI OLEARY Rep #: [id number] : 1935 82 From: Janes Loera MD Attending Dr: Mark Goldstein DO Status: ADM MELLO Ordering Dr: Mario Sanchez MD Date: 02/14/18 Location: [facility] Sex: M C Admitted: 02/14/18 Reason For Study: SYNCOPE Procedure This was a 2D Doppler, Color Flow transthoracic echocardiogram. Technically difficult parasternal images due to body habitus. Exam performed portable in patient room. Left Ventricle Normal LV size. Left ventricular systolic function is normal. The estimated ejection fraction is 65 %. Stage 3 diastolic dysfunction. No regional wall motion abnormalities noted. Right Ventricle Normal RV size. Normal systolic function. Atria Normal left atrium. Normal right atrium. Mitral Valve Normal mitral valve. Tricuspid Valve Normal tricuspid valve. Aortic Valve Normal aortic valve. Trisinus/trileaflet aortic valve. Pulmonic Valve Normal pulmonic valve. Great Vessels Normal aortic root. The pulmonary artery is normal size. Normal inferior vena cava. Pericardium/Pleural No pericardial effusion. MMode/2D Measurements AND Calculations LVIDd: 3.8 cm IVSd: 1.1 cm LVOT diam: 1.8 cm LVIDs: 2.5 cm LVPWd: 1.0 cm LVOT area: 2.6 cm2 RVDd: 4.6 cm FS: 32.9 % LAV(MOD-bp): 57.0 ml LVAd ap4: 30.8 cm2 SV(MOD-sp4): 58.5 ml LAV(MOD-bp) Indexed: 35.3 ml/m2 EDV(MOD-sp4): 97.3 ml LAV(MOD-sp2): 53.6 ml EDV(sp4-el): 100.8 ml LAV(MOD-sp4): 52.6 ml LVAs ap4: 17.6 cm2 ESV(MOD-sp4): 38.7 ml ESV(sp4-el): 39.8 ml EF(MOD-sp4): 60.2 % EF(sp4-el): 60.5 % SV(sp4-el): 61.0 ml LA A4 area: 18.6 cm2 RA A4 area: 17.0 cm2 Time Measurements MV dec time: 0.24 sec Doppler Measurements AND Calculations MV E max maximo: 91.1 cm/sec Lat Peak E' Maximo: 9.0 cm/sec Med Peak E' Maximo: 7.2 cm/sec MV A max maximo: 38.5 cm/sec E/E' lat: 10.1 E/E' med: 12.7 MV E/A: 2.4 Ao V2 max: 135.7 cm/sec LV V1 max: 117.5 cm/sec PA V2 max: 90.8 cm/sec Ao max P.4 mmHg LV V1 max P.5 mmHg LELO(V,D): 2.3 cm2 TR max maximo: 257.6 cm/sec TR max P.6 mmHg Interpretation Summary Normal LV size. Left ventricular systolic function is normal. The estimated ejection fraction is 65 %. Stage 3 diastolic dysfunction. Structurally normal valves. Ordering Physician: Mario Sanchez Referring Physician: RADHA BRAN Performed By: Rosalee Mohamud, EVERCS, RVT 02/15/18 1653 Date Janes Loera MD CC: Mark Goldstein DO; Radha Bran MD; Mario Sanchez MD Date Dictated: 02/15/18 1108 Date Transcribed: 02/15/181652 Building Certifier: Signed DISCHARGE SUMMARY Observed: 02/15/2018 Status: F Source: [place] 4:36 PM [facility] REPOSITORY [facility] Medical Records Department [address] [place] [address] Discharge Summary 02/15/18 1608 MR#: [id number] Acct: [id number] Name: FEI OLEARY Rep #: [id number] : 1935 82 From: Laith SAGE PCP: Radha Bran MD Status: ADM MELLO Y Location: [place] [address] <Laith Pettit - Last Filed: 02/15/18 16:08> Discharge Date and Diagnosis - Problem List Patient Problems: Active and Suspected Problems (Last Reviewed 02/14/18 @ 20:07 by Mario Sanchez MD) Syncope (Acute) Enteritis (Acute) Date of Admission: 02/14/18 Date of Discharge: 02/15/18 - Primary Discharge Diagnosis Active and Suspected Problems (Last Reviewed 02/14/18 @ 20:07 by Mario Sanchez MD) Syncope 2/2 dehydration 2/2 diarrhea and vasovagal syncope PAC's Hypokalemia Chronic anemia Depression Prior CAD with stents PAD with stents HTN - Secondary Discharge Diagnosis Chronic Problems (Last Reviewed 02/14/18 @ 20:07 by Mario Sanchez MD) Essential (primary) hypertension (Chronic) Stenosis of femoral artery (Chronic) Right Femoral Artery PTCA/Stent 08/2012; angioplasty and stenting of the Rt SFA @ [facility] per Dr. Zapata; Stent to distal RSFA to popliteal, Stent Rt. Proximal SFA 10/23/13 Atherosclerotic heart disease of [place] coronary artery without angina pectoris (Chronic) PTCA/Stent to mid RCA 08/06/04; cutting balloon angioplasty with TAMERA to mid RCA 02/19; PTCA/Stent of focal instent stenosis of RCA 06/18/09; PCI/TAMERA to Ostial PDA and PCI-ISR RCA 09/03/13; PCi/TAMERA ISR of mid RCA 10/07/15; FFR mid LAD @ [facility] 10/08/15 GERD (gastroesophageal reflux disease) (Chronic) Hyperlipidemia (Chronic) Obstructive sleep apnea (Chronic) Peripheral vascular disease (Chronic) Hospital Course and Treatment Imaging Results: EEG: Impression: Normal awake electroencephalogram CT/Brain/Head without Contrast IMPRESSION: Chronic involutional changes of the brain. Stable appearance. No hemorrhage. RAD/Chest 1 View (Portable) IMPRESSION: Degenerative changes, as described above. No demonstrated acute cardiopulmonary process. Consults: Cardiology : Luz Maria Operations: None Procedures: Electroencephalogram Summary of Care Provided: Hospital course: The patient is a 82 year old M with a pmhx of CAD, PAD, depression, chronic anemia, htn , who presented to the ER with c/o syncope while eating a spicy dinner. He had been having diarrhea at home leading up to the admission and did seem to be dehydrated with elevated BUN and low K. He had negative troponin. EKG showed PACs. Cardiology was consulted as there was concern for atrial fibrillation. Cardiology did not find evidence of Afib. He was kept on the monitor overnight. K was replaced. He had no significant events on tele. An EEG was obtained which was negative. His syncope was suspected 2/2 dehydration and vasovagal syncope. He was discharged home in stable condition, and should follow up with 1-2 weeks. This patient was seen by Laith Pettit PA-C under the supervision of Doctor Goldstein. [] Patient Problems: Active and Suspected Problems (Last Reviewed 02/14/18 @ 20:07 by Mario Sanchez MD) Syncope (Acute) Enteritis (Acute) - Physical Exam General: Alert, Oriented x3, Cooperative HEENT: Atraumatic, PERRLA, EOMI, Normocephalic Neck: Supple, No JVD, Negative Carotid Bruits Lungs: Clear to auscultation, Normal air movement Cardiovascular: No murmurs, Irregular Rate Abdomen: Bowel Sounds Present, Soft, Non Tender Extremities: No edema, Capillary Refill Less than 3 Seconds Skin: No rashes, No breakdown Musculoskeletal: No Tenderness to Palpation of Joints or Extremities Neurological: Cranial nerves II-XII grossly intact Psych/Mental Status: Normal Affect, Appropriate, Alert and oriented to time, place, person, mood and affect Vital Signs Temp Pulse Resp BP Pulse Ox 97.8 F 69 18 114/59 L 96 02/15/18 11:45 02/15/18 15:32 02/15/18 11:45 02/15/18 11:45 02/15/18 11:45 Oxygen Delivery Method Room Air Weight: 121 lb 11.123 oz Body Mass Index (BMI) 19.6 Orthostatic Vital Signs Start: 02/14/18 21:18 Freq: q24h Status: Active Protocol: Activity Type Activity Date Activity User E-Sign Co-Sign Detail Recorded Client Recorded Date Recorded By Document 02/15/18 06:14 EEJ [id number] 02/15/18 06:15 EEJ Orthostatic Vitals Standing -Blood Pressure (90/60-120/80) 138/77 H -Extremity Use Left Arm -Pulse Rate (60-100) 82 Sitting -Blood Pressure (90/60-120/80) 129/75 H Intake and Output for Last 24 Hours Intake Total 720 / 720 580 / 580 Balance 720 / 720 580 / 580 Laboratory Tests Past 24 Hrs WBC 6.1 RBC 3.09 L Hgb 9.8 L Hct 30.1 L MCV 97.4 H MCH 31.7 MCHC 32.6 RDW 14.7 H RDW Differential 52.8 H Discharge Diet: Low fat/ Low Cholesterol, 2000 mg Sodium Diet Discharge Activity: Return to Normal Activity Home Medications: Medications to take at Discharge Clopidogrel Bisulfate [Plavix] 75 mg PO DAILY 01/14/13 Omeprazole [Prilosec] 20 mg PO DAILY 10/07/15 Aspirin E.C. [Ecotrin] 81 mg PO DAILY 03/08/17 Naproxen 375 mg PO BID PRN 03/08/17 Vitamin E 400 unit PO DAILY 03/08/17 metoprolol succinate ER 25 mg tablet,extended release 24 hr 12.5 mg PO QDAY #45 tab 06/15/17 lisinopril 10 mg tablet 10 mg PO QDAY #90 tab 08/03/17 Acetaminophen [Tylenol Extra Strength] 500 mg PO BID 02/14/18 Atorvastatin Calcium [Lipitor] 20 mg PO QHS 02/14/18 Duloxetine HCl 30 mg PO DAILY 02/14/18 Ferrous Gluconate 324 mg PO DAILY 02/14/18 Furosemide [Lasix] 40 mg PO DAILY 02/14/18 Multivit-Min/FA/Lycopen/Lutein [Centrum Silver Men Tablet] 1 tab PO DAILY 02/14/18 Nitroglycerin 0.4 mg PO PRN PRN 02/14/18 Primary Care Physician: Radha Bran MD [Primary Care Provider] - Please follow up with your Primary Care Physician in: 1-2 weeks Please Follow Up With: RADHA BRAN Disposition: Home Minutes spent on discharge:: 35 Patient Condition:: Stable Medical Necessity - Tobacco Use Smoking Status: Former smoker Tobacco Use: Non-smoker Meaningful Use Info Meaningful Use Diagnoses (Choose all that apply): None applicable <Mark Goldstein - Last Filed: 02/15/18 16:35> Discharge Date and Diagnosis - Primary Discharge Diagnosis Active and Suspected Problems (Last Reviewed 02/14/18 @ 20:07 by Mario Sanchez MD) Syncope (Acute) Enteritis (Acute) - Secondary Discharge Diagnosis Chronic Problems (Last Reviewed 02/14/18 @ 20:07 by Mario Sanchez MD) Essential (primary) hypertension (Chronic) Stenosis of femoral artery (Chronic) Right Femoral Artery PTCA/Stent 08/2012; angioplasty and stenting of the Rt SFA @ [facility] per Dr. Zapata; Stent to distal RSFA to popliteal, Stent Rt. Proximal SFA 10/23/13 Atherosclerotic heart disease of [place] coronary artery without angina pectoris (Chronic) PTCA/Stent to mid RCA 08/06/04; cutting balloon angioplasty with TAMERA to mid RCA 02/19; PTCA/Stent of focal instent stenosis of RCA 06/18/09; PCI/TAMERA to Ostial PDA and PCI-ISR RCA 09/03/13; PCi/TAMERA ISR of mid RCA 10/07/15; FFR mid LAD @ [facility] [facility] 10/08/15 GERD (gastroesophageal reflux disease) (Chronic) Hyperlipidemia (Chronic) Obstructive sleep apnea (Chronic) Peripheral vascular disease (Chronic) Hospital Course and Treatment Operations: None Procedures: Electroencephalogram Summary of Care Provided: Patient seen and examined independently. Data reviewed. I agree with the above note by the physician autopsy assistant. The patient is a 82 year old M presents with syncope. Patient had had some diarrhea that day and then daughter brought over some spicy food and while eating food became diaphoretic, unclear if it is related with the spicy foods or just because of the syncopal event and then passed out. Patient on her 1 workup here in the hospital that was unremarkable. Is my feeling that his symptoms were mediated. Likely related with some underlying gastro-and rhinitis and then perhaps compounded by the fact that he was eating spicy foods that led to the event. Patient underwent echocardiogram and EEG that were unremarkable. There was concern for atrial fibrillation but on my personal review of telemetry as well as EKGs showed no atrial fibrillation. Some of the EKGs did did have low amplitude so is difficult to shrimp picker some of the P waves but they were visible by looking at some the other leads. [] - Physical Exam General: Alert, Cooperative HEENT: Atraumatic, Normocephalic Lungs: Clear to auscultation, Normal air movement, No rhonchi, No wheeze Cardiovascular: Regular rate, Regular Rhythm, No murmurs Abdomen: Bowel Sounds Present, Soft, Non Tender Vital Signs Temp Pulse Resp BP Pulse Ox 36.6 C 69 18 114/59 L 96 02/15/18 11:45 02/15/18 15:32 02/15/18 11:45 02/15/18 11:45 02/15/18 11:45 Oxygen Delivery Method Room Air Weight: 55.2 kg Body Mass Index (BMI) 19.6 Orthostatic Vital Signs Start: 02/14/18 21:18 Freq: q24h Status: Active Protocol: Activity Type Activity Date Activity User E-Sign Co-Sign Detail Recorded Client Recorded Date Recorded By Document 02/15/18 06:14 [facility] [place] [id number] 02/15/18 06:15 [facility] [place] Orthostatic Vitals Standing -Blood Pressure (90/60-120/80) 138/77 H -Extremity Use Left Arm -Pulse Rate (60-100) 82 Sitting -Blood Pressure (90/60-120/80) 129/75 H Intake and Output for Last 24 Hours Intake Total 720 / 720 580 / 580 Balance 720 / 720 580 / 580 Laboratory Tests Past 24 Hrs WBC 6.1 RBC 3.09 L Hgb 9.8 L Hct 30.1 L MCV 97.4 H MCH 31.7 MCHC 32.6 RDW 14.7 H RDW Differential 52.8 H Discharge Diet: Low fat/ Low Cholesterol, 2000 mg Sodium Diet Discharge Activity: Return to Normal Activity Disposition: Home Minutes spent on discharge:: 35 Patient Condition:: Stable Meaningful Use Info Meaningful Use Diagnoses (Choose all that apply): None applicable Code Visit OBSV E AND M: 16389 Observation care discharge 02/15/18 1621 <Electronically signed by Laith SAGE> Date Laith SAGE 02/15/18 1636<Electronically signed by Mark Goldstein DO> Cosigner Signature (if applicable): Date Mark Goldstein DO CC: ALONA Pettit; Mark Goldstein DO; Radha Bran MD Signed ELECTROENCEPHALOGRAM Observed: 02/15/2018 Status: F Source: [place] 1:00 PM [facility] REPOSITORY [facility] Pulmonary Services/Neurology [address] [place] [address] MR#: [id number] Acct: [id number] Name: FEI OLEARY Rep #: [id number] : 1935 82 From: Liam Sears MD Referring Dr: Mark Goldstein DO Status: ADM MELLO Ordering Dr: Date: [facility] Sex[facility] M C - Electroencephalogram Date of service 02/15/18 This is an 18 channel electrode encephalogram performed utilizing the International 10-20 electrode placement protocol performed on this 82-year-old male who apparently lost consciousness in his kitchen and has newly diagnosed atrial fibrillation. Photic stimulation, hyperventilation and EKG reference leads were also obtained. Background activity is 8-12 Hz symmetrically in the posterior leads which attenuates with eye-opening. The patient remained awake throughout the recording without lateralizing or epileptiform changes. Hyperventilation is performed for 4 minutes with good effort with no lateralizing or epileptiform changes and the post hyperventilatory phase was unremarkable. EKG rhythm appears sinus during this recording. Photic stimulation generates a normal symmetric driving response. Impression: Normal awake electroencephalogram 02/15/18 1300 <Electronically signed by Liam Sears MD> Date Liam Sears MD CC: Mark Goldstein DO; Radha Bran MD; Mario Sanchez MD; Liam Sears MD Date Dictated: 02/15/181255 Date Transcribed: 02/15/181255 Building Certifier: CORI Signed CBC W/DIFF, AUTOMATED Collected: 02/15/2018 Status: F Source: [place] 5:35 AM [facility] REPOSITORY TYPE CODE TESTS RESULT OUT OF RANGE REFERENCE UNITS LAB L100.1000 4.4-11.0 K/mm3 Normal WBC 6.1 LAB L100.1200 4.6-6.2 M/mm3 Low RBC 3.09 LAB L100.1300 13.0-16.5 g/dl Low HGB 9.8 LAB L100.1400 40-54 % Low HCT 30.1 LAB L100.1500 80-94 fL High MCV 97.4 LAB L100.1600 27.0-32.0 pg Normal MCH 31.7 LAB L100.1700 32-36 g/gl Normal MCHC 32.6 LAB L100.1810 11.6-14.6 % High RDW CV 14.7 LAB L100.1820 35.1-43.9 fl High RDW SD 52.8 LAB L100.1900 150-450 K/mm3 Normal PLT 284 LAB L100.2000 6.2-12.0 fl Normal MPV 8.7 LAB L100.2100 47-70 % High NEUT% 71.9 LAB L100.2200 19-41 % Low LY% 14.7 LAB L100.2300 0-10 % High MONO% 10.9 LAB L100.2400 0-5 % Normal EO% 2.1 LAB L100.2500 0-1 % Normal BASO% 0.2 LAB L100.2550 0.0-0.9 % Normal IM GRAN % 0.200 Result Comment: IG% - Immature Granulocytes (promyelocytes, myelocytes and metamyelocytes) > 1% indicates that a LEFT SHIFT is Present. LAB L100.2620 2.0-7.7 X10 3/uL Normal Absolute Neut 4.4 LAB L100.2720 0.83-4.51 X10 3/ul Normal Absolute Lymph 0.90 Performed By: #### L100.0100 #### [facility] [address] [place], [place], [address] BASIC METABOLIC Collected: 02/15/2018 Status: F Source: [place] PROFILE ([facility]) 5:35 AM [facility] REPOSITORY TYPE CODE TESTS RESULT OUT OF RANGE REFERENCE UNITS LAB L501.0100 74-106 mg/dL Normal GLU 88 Result Comment: Please note revised GLUCOSE reference range effective 2017. LAB L501.1000 7-18 mg/dL High BUN 31 LAB L501.1100 0.70-1.30 mg/dL Normal CREAT,SERUM 1.07 Result Comment: The validity of the calculated GFR AND GFRAA in patients over 70 years has not been determined. Clinical correlation is essential. LAB L501.1110 >60 mL/min Normal EST GFR 70 Result Comment: Non- GFR Calc LAB L501.1115 >60 mL/min Normal EST GFR - AA 85 Result Comment: GFR Calc LAB L501.1255 ml/min Normal Estimated CRCL 40.84 LAB L501.1300 10-20 RATIO High BUN/CRE 29.0 LAB L501.2200 8.5-10 mg/dL Normal .1 CA 8.8 LAB L501.5300 136-14 mmol/L Normal 5 NA 142 LAB L501.5600 3.5-5. mmol/L Normal 1 K 3.8 LAB L501.5900 98-107 mmol/L Normal CL 105 LAB L501.6100 21.0-3 mmol/L Normal 2.0 CO2 29.0 LAB L501.6200 5-15 Normal GAP 8 Performed By: #### L500.2500 #### [facility] [address] [place], [address] HISTORY AND PHYSICAL Observed: 02/15/2018 Status: F Source: [place] EXAM 4:23 AM [facility] REPOSITORY [facility] Medical Records Department [address] [place] [address] History and Physical 02/14/181923 MR#: [id number] Acct: [id number] Name: FEI OLEARY Rep #: [id number] : 1935 82 From: Mario Sanchez MD PCP: Radha Bran MD Status: ADM MELLO Y Location: [place] [address] Problem List (1) Syncope Status: Acute (2) Enteritis Status: Acute History of Present Illness Date of Admission: 02/14/18 Chief Complaint: syncope The patient is a 82 year old M with a significant history history of CAD status post stent; PAD status post stent; and essential hypertension who presents with a transient loss of consciousness whiles at the kitchen table. Patient reports that he felt lightheaded and then he passed out. He was not responsive after passing out. Family denies any seizure activity. Emergency department doctor reports seen AKim fib on the monitor. Also patient reports that earlier in the day he had an episode of diarrhea where he soiled his underwear stool. He reports tenesmus. Past Medical History Past Medical History (Chronic Problems): Chronic Problems (Last Reviewed 02/14/18 @ 20:07 by Mario Sanchez MD) Essential (primary) hypertension (Chronic) Stenosis of femoral artery (Chronic) Right Femoral Artery PTCA/Stent 08/2012; angioplasty and stenting of the Rt SFA @ [facility] per Dr. Zapata; Stent to distal RSFA to popliteal, Stent Rt. Proximal SFA 10/23/13 Atherosclerotic heart disease of [place] coronary artery without angina pectoris (Chronic) PTCA/Stent to mid RCA 08/06/04; cutting balloon angioplasty with [facility] to mid RCA 02/19; PTCA/Stent of focal instent stenosis of RCA 06/18/09; PCI/TAMERA to Ostial PDA and PCI-ISR RCA 09/03/13; PCi/TAM[facility]A ISR of mid RCA 10/07/15; FFR mid LAD @ [facility] 10/08/15 GERD (gastroesophageal reflux disease) (Chronic) Hyperlipidemia (Chronic) Obstructive sleep apnea (Chronic) Peripheral vascular disease (Chronic) Medical History: Medical History (Last Reviewed 02/14/18 @ 20:07 by Mario Sanchez MD) Essential (primary) hypertension (Chronic) I10 Palpitations (Acute) R00.2 Stenosis of femoral artery (Chronic) I70.209 Right Femoral Artery PTCA/Stent 08/2012; angioplasty and stenting of the Rt SFA @ [facility] per Dr. Zapata; Stent to distal RSFA to popliteal, Stent Rt. Proximal SFA 10/23/13 Atherosclerotic heart disease of [place] coronary artery without angina pectoris (Chronic) I25.10 PTCA/Stent to mid RCA 08/06/04; cutting balloon angioplasty with TAMERA to mid RCA 02/19; PTCA/Stent of focal instent stenosis of RCA 06/18/09; PCI/TAMERA to Ostial PDA and PCI-ISR RCA 09/03/13; PCi/TAMERA ISR of mid RCA 10/07/15; FFR mid LAD @ [facility] 10/08/15 GERD (gastroesophageal reflux disease) (Chronic) K21.9 Hyperlipidemia (Chronic) E78.5 Obstructive sleep apnea (Chronic) G47.33 Peripheral vascular disease (Chronic) I73.9 Prostate cancer C61 Spondylolisthesis M43.10 DDD (degenerative disc disease) Lumbar radiculopathy M54.16 Lumbar stenosis M48.061 Peripheral neuropathy G62.9 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 Allergies carisoprodol Allergy (Verified 02/14/18 17:37) Other itraconazole Allergy (Verified 02/14/18 17:37) Other Home Medications: Ambulatory Orders Medication Instructions Recorded Surgical History: Surgical History (Last Reviewed 02/14/18 @ 20:07 by Mario Sanchez MD) History of coronary artery stent placement (Resolved) Onset Date: 10/07/15 Z95.5 PTCA/Stent to mid RCA 08/06/04; cutting balloon angioplasty with TAMERA to mid RCA 02/19; PTCA/Stent of focal instent stenosis of RCA 06/18/09; PCI/TAMERA to Ostial PDA and PCI-ISR RCA 09/03/13; PCi/TAMERA ISR of mid RCA 10/07/15; FFR mid LAD @ [facility] 10/08/15 Postsurgical percutaneous transluminal coronary angioplasty (PTCA) status Z98.61 PTCA/Stent to mid RCA 08/06/04; cutting balloon angioplasty with TAMERA to mid RCA 02/19; PTCA/Stent of focal instent stenosis of RCA 06/18/09; PCI/TAMERA to Ostial PDA and PTCA/Stent of instent restenosis RCA 09/03/13; [employer]/[facility]AM[facility] Instent restenosis of mid RCA 10/07/15; FFR mid LAD @ [facility] 10/08/15 History of back surgery Z98.890 History of hernia repair Z98.890, Z87.19 History of prostatectomy Z90.79 with radiation History of shoulder surgery Z98.890 History of tonsillectomy Z90.89 Surgical History: -, rotator cuff repair, tonsillectomy, - Lives: Spouse/ Significant Other Smoking Status: Former smoker Alcohol: None - *Family History Maternal Family History: Family History (Last Reviewed 02/14/18 @ 20:07 by Mario Sanchez MD) Mother CVA (cerebral vascular accident) Sister Hypertension Paternal Family History: Family History (Last Reviewed 02/14/18 @ 20:07 by Mario Sanchez MD) Mother CVA (cerebral vascular accident) Sister Hypertension Review of Systems Constitutional: Denies: Chills, Fever, Weight Change HEENT: Denies: Head Aches, Sinus Congestion, Sinus Drainage Cardiovascular: Denies: Chest Pain, Palpitations Respiratory: Denies: Cough, Shortness of breath at rest, Sputum production Gastrointestinal: Reports: Diarrhea. Denies: Abdominal Pain, Nausea, Vomiting Genitourinary: Denies: Dysuria Musculoskeletal: Denies: Joint Pain, Joint Tenderness Skin: Reports: Rash - On left leg. Denies: Wounds Neurological: Denies: Numbness, Tingling, Focal weakness Psychiatric: Denies: Anxiety, Depression, Homicidal Ideations, Suicidal Ideations Hematologic/ Lymphatic: Denies: Easy Bruising, Easy Bleeding VTE Information - Inpt Only VTE Present on Admission: No VTE Mechan Device Prophylaxis: None VTE Pharm Prophylaxis ordered?: Yes Patient Problems: Active and Suspected Problems (Last Reviewed 02/14/18 @ 20:07 by Mario Sanchez MD) Syncope (Acute) Enteritis (Acute) - Physical Exam General: Alert, Oriented x3, Cooperative HEENT: Atraumatic, PERRLA, EOMI, Normocephalic Neck: Supple, No JVD, Negative Carotid Bruits Lungs: Clear to auscultation, Normal air movement Cardiovascular: Regular rate, No murmurs Abdomen: Bowel Sounds Present, Soft, Non Tender Extremities: No edema, Capillary Refill Less than 3 Seconds Skin: No breakdown, - - Left leg with scales. Musculoskeletal: No Tenderness to Palpation of Joints or Extremities Neurological: Cranial nerves II-XII grossly intact Psych/Mental Status: Normal Affect, Appropriate Vital Signs Temp Pulse Resp BP Pulse Ox 97.4 F L 68 13 156/60 H 99 02/14/18 17:32 02/14/18 18:43 02/14/18 18:43 02/14/18 18:43 02/14/18 18:43 Oxygen Delivery Method Room Air Weight: 60.3 kg Body Mass Index (BMI) 21.4 Laboratory Tests Past 24 Hrs Assessment/Plan All Active Problems (Last Reviewed 02/14/18 @ 20:07 by Mario Sanchez MD) Syncope (Acute) Enteritis (Acute) History of coronary artery stent placement (Resolved 10/07/15) Chronic pain of right heel (Acute) Ulcer of right heel (Acute) Yeast dermatitis (Acute) Palpitations (Acute) The patient is a 82 year old M with a significant history history of CAD status post stent; PAD status post stent; and essential hypertension who presents with a transient loss of consciousness. Syncope Differential diagnosis include vasovagal syncope; dysrhythmia; seizure activity or other. Will admit to PCU on telemetry monitoring. CT head did not show any acute pathology Orthostatic blood pressure ordered. Independent review of EKG showed right bundle branch block. Review of old records shows that this is unchanged from previous. EEG ordered. Echocardiogram ordered. ED doctor reported seeing Afib on monitor. Cardiology consult to consider event monitor/loop. Enteritis Likely viral. Patient is on Lasix; continue.Clinical monitoring in the setting of recent diarrhea Chronic anemia Baseline hemoglobin is about 12.1. His creatinine on admission was 11.2. Iron supplements continued Depression Cymbalta continued CAD with stents Aspirin and Plavix continued Lipitor continued PAD with stents Aspirin and Plavix continued as above. Lipitor continued. Hypertension With fluctuation blood pressure on admission. We will hold lisinopril for now. Metoprolol succinate continued but with parameters to hold. Lasix continued. Dermatitis of right leg Patient reports outpatient wound care. Eucerin cream to right leg ordered. DVT prophylaxis Subcutaneous heparin. Code Visit OBSV E AND M: 10969 Initial observation care L3 02/15/18 0423 <Electronically signed by Mario Sanchez MD> Date Mario Sanchez MD Cosigner Signature: Date (if applicable) CC: Radha Bran MD; Mario Sanchez MD Signed EMERGENCY DEPARTMENT Observed: 02/15/2018 Status: F Source: [place] SUMMARY 1:18 AM [facility] REPOSITORY [facility] Medical Records Department [address] [place] [address] Emergency Department Summary 02/14/18 1852 MR#: [id number] Acct: [id number] Name: FEI OLEARY Rep #: [id number] : 1935 82 From: Cody Vargas MD PCP: Radha Bran MD Status: ADM MELLO - ER Visit Summary Date of Service: 02/14/18 Chief Complaint: Syncopal episode History of Present Illness: The patient is a 82 M presenting for evaluation secondary to a syncopal episode. Patient has a underlying history of coronary artery disease with multiple stents. Patient reports that he was eating dinner this evening, seated at the table, and had a sudden syncopal event. The only prodrome that he remembers was that he suddenly felt lightheaded and then he passed out. EMS was immediately called. Patient denies that he had any preceding chest pain or shortness of breath. He denies that he was having any sort of difficulty with swallowing. Patient states that he had a prior similar episodes in the distant past but nothing recently. Patient denies any history of PE or hemoptysis, patient does report that he potentially has a history DVT and thinks he is on a blood thinner but he is actually not currently on a blood thinner. Physical Examination: Vital signs notable for blood pressure 91/59. Thin elderly male no acute distress. Head normocephalic atraumatic. PRL, EOMI no evidence of ventral pallor or scleral icterus. Moist mucous membranes. No JVD. Heart was regular rate and rhythm no murmurs. Lungs sounds clear to auscultation bilaterally. Abdomen soft nontender. No significant peripheral edema, 2+ peripheral pulses x4. Skin normal color no rash. Patient alert and oriented, NIH stroke scale is 0. Test Results: Chest x-ray shows chronic changes. EKG shows what appears to be a sinus rhythm with a rate of [address] segments normal T waves and a right bundle branch block with occasional PACs. Patient's P waves appear to be different in morphology than a prior EKG. CBC shows mild anemia 11.2, chemistry shows potassium 3.3, coags and troponin are found to be normal. CT brain shows chronic changes. Second EKG demonstrates atrial fibrillation with a ventricular rate of 82 Emergency Department Course and Treatment: Patient presented secondary to a syncopal episode. Workup as noted above shows only evidence of the patient having a new onset atrial fibrillation. I believe the patient requires admission at this point. I discussed this with hospitalist. Patient's blood pressure improved during his hospital stay. Disposition: Admission Impression: 1. New onset atrial fibrillation 2. Syncope This note was generated with [employer] dictation software. It may contain incorrect words, spelling, and punctuation that were not noted in review of the chart prior to signing ED Disposition - Plan for ED Patient: Chief Complaint: Syncope What to do if you have Problems For any increased pain, shortness of breath, bleeding, nausea or vomiting, chest pain, or any unexpected problems, contact your Primary Care Provider. Call [facility] ([phone]) or report to the closest Emergency Room. Call 911 if necessary. 02/15/18 0118 <Electronically signed by Cody Vargas MD> Date Cody Vargas MD Cosigner Signature (If Indicated): Date CC: Radha Bran MD CBC W/DIFF, AUTOMATED Collected: 02/14/2018 Status: F Source: [place] 5:45 PM [facility] REPOSITORY TYPE CODE TESTS RESULT OUT OF RANGE REFERENCE UNITS LAB L100.1000 4.4-11.0 K/mm3 Normal WBC 5.6 LAB L100.1200 4.6-6.2 M/mm3 Low RBC 3.51 LAB L100.1300 13.0-16.5 g/dl Low HGB 11.2 LAB L100.1400 40-54 % Low HCT 34.5 LAB L100.1500 80-94 fL High MCV 98.3 LAB L100.1600 27.0-32.0 pg Normal MCH 31.9 LAB L100.1700 32-36 g/gl Normal MCHC 32.5 LAB L100.1810 11.6-14.6 % Normal RDW CV 14.5 LAB L100.1820 35.1-43.9 fl High RDW SD 49.9 LAB L100.1900 150-450 K/mm3 Normal PLT 386 LAB L100.2000 6.2-12.0 fl Normal MPV 8.6 LAB L100.2100 47-70 % Normal NEUT% 69.8 LAB L100.2200 19-41 % Low LY% 17.7 LAB L100.2300 0-10 % High MONO% 10.8 LAB L100.2400 0-5 % Normal EO% 1.3 LAB L100.2500 0-1 % Normal BASO% 0.4 LAB L100.2550 0.0-0.9 % Normal IM GRAN % 0.000 Result Comment: IG% - Immature Granulocytes (promyelocytes, myelocytes and metamyelocytes) > 1% indicates that a LEFT SHIFT is Present. LAB L100.2620 2.0-7.7 X10 3/uL Normal Absolute Neut 3.9 LAB L100.2720 0.83-4.51 X10 3/ul Normal Absolute Lymph 0.98 Performed By: #### L100.0100 #### [facility] [address] [place], [address] PROTHROMBIN TIME W/INR Collected: 02/14/2018 Status: F Source: [place] 5:45 PM [facility] REPOSITORY TYPE CODE TESTS RESULT OUT OF RANGE REFERENCE UNITS LAB L300.4150 11.7-14.9 SECONDS Normal PROTIME 13.6 LAB L300.4200 Normal INR 1.0 Performed By: #### L300.3900, L300.4310 #### [facility] [address] [place], [address] PARTIAL THROMBOPLAST Collected: 02/14/2018 Status: F Source: [place] TIME 5:45 PM [facility] REPOSITORY TYPE CODE TESTS RESULT OUT OF RANGE REFERENCE UNITS LAB L300.4310 24.1-36.2 Seconds Normal PTT 24.3 Performed By: #### L300.3900, L300.4310 #### [facility] [address] [place], [address] BASIC METABOLIC Collected: 02/14/2018 Status: F Source: [place] PROFILE ([place]) 5:45 PM [facility] REPOSITORY TYPE CODE TESTS RESULT OUT OF RANGE REFERENCE UNITS LAB L501.0100 74-106 mg/dL High GLU 109 Result Comment: Fasting Glucose result from 100 to 125 mg/dL suggests IMPAIRED HOMEOSTASIS per A.D.A. criteria. Please note revised GLUCOSE reference range effective 2017. LAB L501.1000 7-18 mg/dL High BUN 29 LAB L501.1100 0.70-1.30 mg/dL Normal CREAT,SERUM 1.20 Result Comment: The validity of the calculated GFR AND GFRAA in patients over 70 years has not been determined. Clinical correlation is essential. LAB L501.1110 >60 mL/min Normal EST GFR 61 Result Comment: Non- GFR Calc LAB L501.1115 >60 mL/min Normal EST GFR - AA 74 Result Comment: GFR Calc LAB L501.1255 ml/min Normal Estimated CRCL 39.78 LAB L501.1300 10-20 RATIO High BUN/CRE 24.2 LAB L501.2200 8.5-10 mg/dL Normal .1 CA 8.8 LAB L501.5300 136-14 mmol/L Normal 5 NA 139 LAB L501.5600 3.5-5. mmol/L Low 1 K 3.3 LAB L501.5900 98-107 mmol/L Normal CL 102 LAB L501.6100 21.0-3 mmol/L Normal 2.0 CO2 28.0 LAB L501.6200 5-15 Normal GAP 9 Performed By: #### L500.2500, L501.4010 #### [facility] [address] [place], [address] TROPONIN-I Collected: 02/14/2018 Status: F Source: [place] 5:45 PM [facility] REPOSITORY TYPE CODE TESTS RESULT OUT OF RANGE REFERENCE UNITS LAB L501.4010 <0.045 ng/mL Normal < 0.015 TROPONIN-I Result Comment: TROPONIN-I EXPECTED VALUES <0.045 Negative 0.045 - 0.590 Consistent with Cardiac Damage > OR = 0.600 Critical Value Not every elevated troponin is indicative of SC. These values should be used with clinical judgement in examining the patient's clinical picture for diagnosis. To establish a diagnosis of SC versus myocardial injury, there must be a demonstrated rise and/or fall in the troponin values, in addition to ischemic symptoms, EKG changes, new regional wall motion abnormality, and/or angiographical evidence. PLEASE NOTE: REFERENCE RANGES EDITED 17 Performed By: #### L500.2500, L501.4010 #### [facility] [address] [place], [address] CHEST 1 VIEW Observed: 02/14/2018 Status: F Source: [place] (PORTABLE) 5:44 PM [facility] REPOSITORY [facility] Imaging Services [address] [address] Chest 1 View (Portable) MR#: [id number] Acct: [id number] Name: FEI OLEARY Rep #: [id number] : 1935 M 82 From: Mohan Lee MD PCP: Radha Bran MD Status: PRE ER Study: Chest 1 View (Portable) Date of Exam: 02/14/18 Exam# [id number] Ordering Dr: Cody Vargas MD STUDY: X-RAY CHEST REASON FOR EXAM: Male, 82 years old. Chest pain TECHNIQUE: Single AP portable view of the chest. COMPARISON: August 01, 2016 FINDINGS: There are monitoring devices. There is hyperinflation of the lungs consistent with chronic obstructive lung disease (COPD). There is no demonstrated pleural abnormality. Normal size heart. Normal mediastinum and terry. Normal visualized pulmonary arteries. Normal visualized aortic arch and descending thoracic aorta. There is demineralization of the osseous structures. The postoperative change of the left shoulder There is no demonstrated abnormality of the visualized soft tissue structures of the upper abdomen. RAD/Chest 1 View (Portable) IMPRESSION: Degenerative changes, as described above. No demonstrated acute cardiopulmonary process. Electronically Signed: Mohan Lee MD at 18:28 EDT , Service support , CC: Radha Bran MD; Cody Vargas Building Certifier: Signed BRAIN/HEAD WITHOUT Observed: 02/14/2018 Status: F Source: [place] CONTRAST 5:44 PM [facility] REPOSITORY [facility] Imaging Services [address] [place] [id number] Brain/Head without Contrast MR#: [id number] Acct: [id number] Name: FEI OLEARY Rep #: [id number] : 1935 M 82 From: Mohan Lee MD PCP: Radha Bran MD Status: REG ER Study: Brain/Head without Contrast Date of Exam: 02/14/18 Exam# [id number] Ordering Dr: Cody Vargas MD STUDY: CT BRAIN WITHOUT CONTRAST REASON FOR EXAM: Male, 82 years old. Altered mental status. Patient unresponsive. RADIATION DOSAGE (If Supplied By Facility): CTDIvol = ( 44.99 ) mGy, DLP = ( 846.73 ) mGycm TECHNIQUE: Transaxial CT imaging of the brain was performed without administration of intravenous contrast material. Individualized dose optimization techniques were used for this CT. COMPARISON: March 08, 2017. FINDINGS: Normal soft tissue structures. Normal calvarium. There is mild cerebral atrophy with widening of the extra- axial spaces and ventricular dilatation. There are areas of decreased attenuation within the white matter tracts of the supratentorial brain, consistent with microvascular disease changes. Normal basal ganglia and thalami. Normal brainstem. Normal cerebellum. There is no intracranial hemorrhage. There are no findings of an acute ischemic infarction. Normal visualized paranasal sinuses. CT/Brain/Head without Contrast IMPRESSION: Chronic involutional changes of the brain. Stable appearance. No hemorrhage. Electronically Signed: Mohan Lee MD at 19:00 EDT , Service support , CC: Radha Bran MD; Cody Vargas Building Certifier: Signed CARDIOLOGY VISIT Observed: 01/26/2018 Status: F Source: [place] REPORT 2:12 PM [facility] REPOSITORY [facility] [address] [place] [address] OFFICE VISIT Date of Service: 01/26/18 MR#: [id number] Acct: [id number] Name: FEI OLEARY Rep #: [id number] : 1935 Provider: Janes Loera MD Age/Sex: 82/M Location: [facility] [place] Status: Signed HPI HPI Chief Complaint: Follow up Details: FEI OLEARY, is a 82 M who presents to the office today for a follow-up visit. He is a gentleman with a history of coronary artery disease status post angioplasty and stenting of the right coronary artery 2 in 2004 restenosis in 2011 and again in 2013 and 2016. His last cardiac catheterization 2016 demonstrated severe two-vessel disease with a 50% stenosis of the mid left anterior descending artery for which she underwent fractional flow reserve evaluation which was 0.86 and was not hemodynamically significant. He underwent angioplasty and stenting of a restenotic right coronary artery lesion. He is done well since then with no chest pain or shortness of breath or paroxysmal nocturnal dyspnea he is not able to exert himself much because of other noncardiac issues. He has had some bilateral lower extremity edema and some shortness of breath with activity. He has not had any obvious dizziness no diaphoresis no near syncope or syncope. He has been compliant with all his medications. Intake Vital Signs01/26/18 Height 5 ft 6 in 01/26/18 Weight: 124 lb 01/26/18 Body Mass Index (BMI) 20.0 01/26/18 Blood Pressure 120/60 01/26/18 Respiratory Rate 18 01/26/18 Pulse Rate 64 Intake Visit Reasons: 6 M FU Allergies carisoprodol Allergy (Verified 01/26/18 13:22) Other itraconazole Allergy (Verified 01/26/18 13:22) Other Medications Clopidogrel Bisulfate [Plavix] 75 mg PO DAILY 01/14/13 [History Confirmed 01/26/18] Multivit-Min/FA/Lycopene/Lut [Centrum Silver Tablet] 1 tab PO DAILY 01/14/13 [History Confirmed 01/26/18] Omeprazole [Prilosec] 20 mg PO DAILY 10/07/15 [History Confirmed 01/26/18] Aspirin E.C. [Ecotrin] 81 mg PO DAILY@0800 03/08/17 [History Confirmed 01/26/18] Naproxen 375 mg PO BID PRN 03/08/17 [History Confirmed 01/26/18] Vitamin E 400 unit PO DAILY 03/08/17 [History Confirmed 01/26/18] metoprolol succinate ER 25 mg tablet,extended release 24 hr 12.5 mg PO QDAY #45 tab 06/15/17 [Rx Confirmed 01/26/18] acetaminophen 500 mg tablet 500 mg PO BID PRN 08/03/17 [History Confirmed 01/26/18] lisinopril 10 mg tablet 10 mg PO QDAY #90 tab 08/03/17 [Rx Confirmed 01/26/18] mirabegron ER 50 mg tablet,extended release 24 hr 50 mg PO QDAY 08/03/17 [History Confirmed 01/26/18] Ferrous Gluconate 325 10/05/17 [History Confirmed 01/26/18] furosemide 40 mg tablet 40 mg PO DAILY #90 tab 10/26/17 [Rx Confirmed 01/26/18] atorvastatin 20 mg tablet 20 mg PO QDAY #90 tab 11/23/17 [Rx Confirmed 01/26/18] nitroglycerin 0.4 mg sublingual tablet 0.4 mg SUBLINGUAL Q5M PRN #25 tab 01/26/18 [Rx Confirmed 01/26/18] [facility] Medical History Essential (primary) hypertension (Chronic) Palpitations (Acute) 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) GERD (gastroesophageal reflux disease) (Chronic) Hyperlipidemia (Chronic) Obstructive sleep apnea (Chronic) Peripheral vascular disease (Chronic) Prostate cancer (Acute) Spondylolisthesis (Acute) DDD (degenerative disc disease) (Chronic) Lumbar radiculopathy (Chronic) Lumbar stenosis (Chronic) Peripheral neuropathy (Chronic) 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) Surgical History History of coronary artery stent placement (Resolved 10/07/15) Postsurgical percutaneous transluminal coronary angioplasty (PTCA) status (Chronic) History of back surgery (Resolved) History of hernia repair (Resolved) History of prostatectomy (Resolved) History of shoulder surgery (Resolved) History of tonsillectomy (Resolved) Family History Mother CVA (cerebral vascular accident) Sister Hypertension Social History Smoking Status: Never smoker alcohol intake: former details: 1 glass of red wine x3 days a week substance use type: does not use caffeine: No what type of physical activity do you participate in: none seatbelt use: always do you feel safe at home: Yes ROS Const Const: Negative for fatigue, weakness, difficulty sleeping, frequent falls, excessive sweating or headache(s) Eyes Eyes: Negative for loss of peripheral vision, transient loss of vision, blurry vision, tunnel vision or double vision ENT ENT: Negative for headache(s), dizziness, Nosebleed/epistaxis or balance problems Cardio Chest Pain: No Palpitations: No Edema: None Muscle aches with walking: None Resp Respiratory: Positive for SOB with activity and other (Diminished RLL); negative for SOB at rest, SOB orthopnea\SOB lying down, paroxysmal nocturnal dyspnea or Cough GI GI: Negative nausea, heartburn, black,tarry stools or vomiting : Negative for hematuria Musc Musc: Negative for balance problems, muscle aches/ myalgia, muscle weakness or joint pain Skin Skin: Negative non-healing lesions, unusual bruising or rash Neuro Neuro: Positive for lack of coordination; negative for weakness, frequent falls, headache(s), blurry vision, double vision, dizziness, lightheadedness, orthostatic symptoms, near syncope or syncope Beau Hematologic/Lymphatic: Negative for easy bruising or easy bleeding Endo Endo: Negative for fatigue, excessive sweating or increased thirst/drinking Psych Psych: Negative for anxiety or depression Allergy Allergy/Immunology: Negative for hives, Negative for rash Cardiology Exam Const Appearance: cooperative, healthy appearing, well developed, well groomed and no acute distress Nutritional Appearance: well nourished and average body habitus Orientation: alert, awake and oriented x3 Head Head: normal to inspection, normocephalic and atraumatic Ears: hearing grossly normal bilaterally and external ears normal Nose: external nose normal, nasal mucous membranes and turbinates normal, nares normal, septum normal, no nasal discharge Face and Sinus: face symmetric Mouth: oral mucosae normal, tongue normal, oropharynx normal and moist mucous membranes Teeth and gingiva: dentition normal Throat: posterior oropharynx normal, tonsils normal and uvula midline Eyes General: appearance normal, both eyes and all related structures Eyelids: eyelids normal Conjunctivae: conjunctivae normal Pupils: PERRL, normal by confrontation and accommodation normal EOM: EOM intact bilaterally Neck Neck: normal visual inspection, trachea midline and no JVD JVD: +5 Carotids: normal carotid upstroke and bounding pulses Chest Chest inspection: normal inspection of the chest, symmetric chest movement and normal respiratory effort Auscultation: Bilateral: Clear to Auscultation Cardio Palpation: normal PMI Rate: regular rate Rhythm: regular rhythm Heart sounds: S1 normal, S2 normal and normal, physiologic split S2; negative rub, gallop or murmur GI GI: normal to inspection, soft, no hepatosplenomegaly and bowel sounds present Neuro General: alert, awake, oriented x3, no focal sensory deficit, gait normal and moves all extremities Skin Skin: no rashes or lesions noted Extremities Pulses: Normal: Right Femoral Pulse, Left Femoral Pulse, Right Dorsalis Pedis Pulse, Left Dorsalis Pedis Pulse, Right Posterior Tibial Pulse, Left Posterior Tibial Pulse, Right Radial Pulse, Left Radial Pulse Lower Extremity Edema: None: Bilateral Musculoskel Musculoskeletal: No joint tenderness Psych Psychological: normal affect Assessment AND Plan 1. History of coronary artery stent placement Z95.5 PTCA/Stent to mid RCA 08/06/04; cutting balloon angioplasty with TAMREA to mid RCA 02/19; PTCA/Stent of focal instent stenosis of RCA 06/18/09; PCI/TAMERA to Ostial PDA and PCI-ISR RCA 09/03/13; PCi/TAMERA ISR of mid RCA 10/07/15; FFR mid LAD @ [facility] 10/08/15 Plan He does have a history of coronary artery disease status post angioplasty and stenting of the right coronary artery repeatedly. He has not had any angina or any symptoms of what he had prior to his cardiac catheterization my recommendation was for us to continue to manage him expectantly. 2. Essential (primary) hypertension I10 Plan His blood pressure appears to be doing much better on this current medication and my recommendation would be to keep the same lisinopril 10 mg and furosemide 40 mg a day. 3. Hyperlipidemia E78.5 Plan He does have a history of hyperlipidemia. His last lipid profile demonstrated total cholesterol 122, LDL 56 and HDL of 48. No other changes will be made. Thank you for allowing me to participate in the care of your patient. 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) Coding Level of Care Code Off vis,est,level 3 Diagnoses History of coronary artery stent placement Z95.5 Essential (primary) hypertension I10 Hyperlipidemia E78.5 Coding Level of Care Code Off vis,est,level 3 Diagnoses History of coronary artery stent placement Z95.5 Essential (primary) hypertension I10 Hyperlipidemia E78.5 01/26/18 1412 <Electronically signed by Janes Loera MD> Date Janes Lorea MD Cosign Signature: Date (if applicable) CC: Radha Bran MD WOUND CTR HISTORY Observed: 10/10/2017 Status: F Source: [place] AND PHYSICAL 9:30 AM [facility] REPOSITORY [facility] [address] [place] [address] Wound Ctr History AND Physical 10/05/172011 MR#: [id number] Acct: [id number] Name: FEI OLEARY Rep #: [id number] : 1935 82 From: Alfonzo Duncan [employer] PCP: Radha Bran MD Status: REG RCR Y Location: WC (1) Chronic pain of right heel Status: Acute Code(s): M79.671 - Pain in right foot; G89.29 - Other chronic pain (2) Ulcer of right heel Status: Acute Code(s): L97.419 - Non-pressure chronic ulcer of right heel and midfoot with unspecified severity (3) Atherosclerotic heart disease of [place] coronary artery without angina pectoris Status: Chronic Qualifiers: Code(s): I25.10 - Atherosclerotic heart disease of [place] coronary artery without angina pectoris Comment: PTCA/Stent to mid RCA 08/06/04; cutting balloon angioplasty with TAMERA to mid RCA 02/19; PTCA/Stent of focal instent stenosis of RCA 06/18/09; PCI/TAMERA to Ostial PDA and PTCA/Stent of instent restenosis RCA 09/03/13; [employer]/TAMERA Instent restenosis of mid RCA 10/07/15; FFR mid LAD @ [facility] 10/08/15 (4) GERD (gastroesophageal reflux disease) Status: Chronic Code(s): K21.9 - Gastro-esophageal reflux disease without esophagitis (5) Hyperlipidemia Status: Chronic Qualifiers: Code(s): E78.5 - Hyperlipidemia, unspecified (6) Hypertension Status: Chronic Qualifiers: Code(s): I10 - Essential (primary) hypertension (7) Peripheral vascular disease Status: Chronic Code(s): I73.9 - Peripheral vascular disease, unspecified History of Present Illness Date of Service: 10/05/17 Chief Complaint: Right heel pain on and off 2 years with increasing pain and ulceration over the past 2 months History of Wound: This is an 82-year-old white male who presents to the wound healing center today with complaints of worsening right heel pain and a superficial ulceration on the right heel with surrounding redness and excoriation. He has a past medical history which is significant for that of PVD, PAD, CAD, hypertension, GERD, and hyperlipidemia. He has in the past undergone angioplasty of the right lower extremity by Dr. Rose. A most recent RALPH was done on 08/23/2017 and demonstrated right RALPH of 0.67 and left RALPH of 0.78. The patient states that he has had ongoing right heel pain for 1-2 years and wears orthotic shoes. He states that his orthotics are approximately 2 years old as well. He states that he has been seen podiatry who referred him to the wound healing center as he now has a superficial ulceration on his right heel with surrounding redness and occasional bleeding. He states that the pain is a intermittent sharp pain. He does state that he has been seen by orthopedics and podiatry in the past and was told that he has a heel spur as well, however it was felt that this was not the root cause of his pain. He denies any purulent drainage in his wound treatments so far have consisted of applying Vaseline daily. The patient otherwise denies any fever, chills, nausea, vomiting, shortness of breath, chest pain or pressure, palpitations, orthopnea, lower extremity edema, syncope or presyncopal episodes. Past Medical History Past Medical History: Chronic Problems (Last Reviewed 08/03/17 @ 11:36 by Janes Loera MD) Presence of stent in coronary artery (Chronic) PTCA/Stent to mid RCA 08/06/04; cutting balloon angioplasty with TAMERA to mid RCA 02/19; PTCA/Stent of focal instent stenosis of RCA 06/18/09; PCI/TAMERA to Ostial PDA and PTCA/Stent of instent restenosis RCA 09/03/13; [employer]/TAMERA Instent restenosis of mid RCA 10/07/15; FFR mid LAD @ [facility] 10/08/15 Stenosis of femoral artery (Chronic) Right Femoral Artery PTCA/Stent 08/2012; angioplasty and stenting of the Rt SFA @ [facility] per Dr. Zapata; Stent to distal RSFA to popliteal, Stent Rt. Proximal SFA 10/23/13 Atherosclerotic heart disease of [place] coronary artery without angina pectoris (Chronic) PTCA/Stent to mid RCA 08/06/04; cutting balloon angioplasty with TAMERA to mid RCA 02/19; PTCA/Stent of focal instent stenosis of RCA 06/18/09; PCI/TAMERA to Ostial PDA and PTCA/Stent of instent restenosis RCA 09/03/13; [employer]/TAMERA Instent restenosis of mid RCA 10/07/15; FFR mid LAD @ [facility] 10/08/15 GERD (gastroesophageal reflux disease) (Chronic) Hypertension (Chronic) Hyperlipidemia (Chronic) Obstructive sleep apnea (Chronic) Peripheral vascular disease (Chronic) Surgical History: -, rotator cuff repair, tonsillectomy, - Allergies/Adverse Reactions: Allergies carisoprodol Allergy (Verified 10/05/17 17:13) Other itraconazole Allergy (Verified 10/05/17 17:13) Other Home Medications: Ambulatory Orders Medication Instructions Recorded Clopidogrel Bisulfate [Plavix] 75 mg PO DAILY 01/14/13 Smoking Status: Never smoker Review of Systems Constitutional: Denies: Chills, Fever, Weight Change Eyes: Denies: Pain, Vision Change HEENT: Denies: Difficulty Hearing, Difficulty Swallowing, Sinus Congestion Cardiovascular: Denies: Chest Pain, Palpitations Respiratory: Denies: Cough, Shortness of Breath Gastrointestinal: Denies: Diarrhea, Nausea, Vomiting Genitourinary: Denies: Dysuria, Hematuria Skin: Reports: Wounds - See HPI Endocrine: Denies: Heat/ Cold Intolerance, Polydipsia, Polyuria Hematologic/ Lymphatic: Denies: Easy Bruising, Easy Bleeding - Physical Exam Vital Signs Temp Pulse Resp BP 97.1 F L 64 18 148/88 H 10/05/17 16:47 10/05/17 16:47 10/05/17 16:47 10/05/17 16:47 General: Alert, Oriented x3, Cooperative, No apparent distress HEENT: Atraumatic Neck: Supple Lungs: Clear to auscultation, Normal air movement Cardiovascular: Regular rate, Regular Rhythm Extremities: No clubbing, No cyanosis, Diminished Peripheral Pulses, Edema - Generalized bilateral lower extremity edema Skin: Ulcer/ Wound - Right heel very small superficial ulceration with surrounding excoriation and redness, tender to touch, no purulent drainage noted. No signs of acute infection at this time. Musculoskeletal: No Tenderness to Palpation of Joints or Extremities - With the exception of right heel Neurological: Neuro grossly intact Psych/Mental Status: Normal Affect, Alert and oriented to time, place, person, mood and affect Debridement Note Post-Debridement Measurements/Treatment WC - Nurse 2 - General Ulcer CM Notes Start: 10/05/17 16:42 Freq: Status: Active Protocol: Activity Type Activity Date Activity User E-Sign Co-Sign Detail Recorded Client Recorded Date Recorded By Document 10/05/17 17:36 [id number] 10/05/17 17:53 CS Wound Center Nurse 2 #5 R Heel -Time 17:40 -Correct Patient Yes -Correct Side, Site, Position Yes Wound debrided: Right heel ulcer Type of Debridement: Excisional debridement Anesthesia Used: 5% Lidocaine Gel Depth: in the subcutaneous layer Percentage of wound debrided: 100 Instrument Used: 3mm curette Tissue Removed: Small amount of slough Severity: Fat Layer Exposed Amount of bleeding with debridement: Mild Bleeding Controlled with: Pressure Patient tolerated procedure well Assessment/Plan Assessment: See above diagnoses Plan: The patient was seen and examined at the wound center today and was updated on the plan of care. A subcutaneous debridement was performed today. The patient tolerated the procedure well. The patients wound care will consist of: Applying Aquacel silver and optifoam daily for offloading. Wound cultures were collected. Due to the increase in pain a x-ray of the right heel was ordered. Vascular studies reviewed from August 2017 and demonstrated right RALPH of 0.67 and left RALPH of 0.78. Patient educated on the importance of offloading and instructed to float the heels when laying in bed. Do not feel that this is pressure related at this time as patient does not have mobility issues. However, patient does wear orthotic inserts and issues and these are over 2 years old, instructed to follow-up with podiatry to consider new orthotic insoles as they are very worn down. Patient educated on the importance of diet on wound healing and instructed to increase protein and vitamin C intake. Patient verbalized understanding. Patient will follow up at wound healing center in one week or sooner if needed. This note was generated with [employer] dictation software. It may contain incorrect words, spelling, and punctuation that were not noted in checking the note before signing. Code Visit Office Visits / Consults: [id number] OV L4 Est 111xxx-113xx: 74017 Luz subq tissue 20 sq cm/< 10/10/17 0930 <Electronically signed by Alfonzo DENT> Date Alfonzo Duncan NP-C CC: Signed FOOT MIN 3 VIEWS Observed: 10/06/2017 Status: F Source: [place] 12:39 PM [facility] REPOSITORY [facility] Imaging Services [address] [place] [address] Foot min 3 Views MR#: [id number] Acct: [id number] Name: FEI OLEARY Rep #: [id number] : 1935 M 82 From: Rito Lugo MD PCP: Radha Bran MD Status: REG CLI Study: Foot min 3 Views Date of Exam: 10/06/17 Exam# [id number] Ordering Dr: Alfonzo Duncan STUDY: X-RAY - RIGHT FOOT CLINICAL: Male, 82 years old. Heel ulceration. TECHNIQUE: 3 view(s) of the foot. COMPARISON: None. FINDINGS: There is demineralization of the rear and midfoot bones. Normal visualized subtalar, talonavicular, calcaneocuboid, tarsal and tarsometatarsal articulations. There is demineralization of the metatarsi. There is degenerative arthrosis of the metatarsophalangeal joint of the hallux . Normal tibial and fibular sesamoid bones. Normal interphalangeal joint of the great toe. Normal phalanges of the great toe. Normal second through fifth metatarsophalangeal joints. Normal interphalangeal joints and phalanges of the lesser toes. Soft tissue swelling. RAD/Foot min 3 Views IMPRESSION: Diffuse soft tissue swelling. Electronically Signed: Rito Lugo MD at 13:07 EDT Tel [phone], Service support , CC: Radha Bran MD; Alfonzo Duncan NP Building Certifier: Signed ERYTHROCYTE SED RATE Collected: 10/06/2017 Status: F Source: [place] 12:23 PM [facility] REPOSITORY TYPE CODE TESTS RESULT OUT OF RANGE REFERENCE UNITS LAB L102.0000 0-20 mm/hr High SED RATE 27 Performed By: #### L101.9900, L100.0500 #### [facility] [address] [place], [place], [address] CBC-COMPLETE BLOOD CNT Collected: 10/06/2017 Status: F Source: [place] NO DIFF 12:23 PM [facility] REPOSITORY TYPE CODE TESTS RESULT OUT OF RANGE REFERENCE UNITS LAB L100.1000 4.4-11.0 K/mm3 Normal WBC 5.2 LAB L100.1200 4.6-6.2 M/mm3 Low RBC 3.83 LAB L100.1300 13.0-16.5 g/dl Low HGB 12.1 LAB L100.1400 40-54 % Low HCT 36.8 LAB L100.1500 80-94 fL High MCV 96.1 LAB L100.1600 27.0-32.0 pg Normal MCH 31.6 LAB L100.1700 32-36 g/gl Normal MCHC 32.9 LAB L100.1810 11.6-14.6 % Normal RDW CV 14.6 LAB L100.1820 35.1-43.9 fl High RDW SD 51.0 LAB L100.1900 150-450 K/mm3 Normal PLT 317 LAB L100.2000 6.2-12.0 fl Normal MPV 8.8 Performed By: #### L101.9900, L100.0500 #### [facility] [address] [place], [place], [address] COMPREHENSIVE METABOLIC Collected: 10/06/2017 Status: F Source: [place] PROFIL 12:23 PM [facility] REPOSITORY TYPE CODE TESTS RESULT OUT OF RANGE REFERENCE UNITS LAB L501.0100 74-106 mg/dL Normal GLU 83 Result Comment: Please note revised GLUCOSE reference range effective 2017. LAB L501.1000 7-18 mg/dL High BUN 25 LAB L501.1100 0.70-1.30 mg/dL Normal CREAT,SERUM 1.09 Result Comment: The validity of the calculated GFR AND GFRAA in patients over 70 years has not been determined. Clinical correlation is essential. LAB L501.1110 >60 mL/min Normal EST GFR 69 Result Comment: Non- GFR Calc LAB L501.1115 >60 mL/min Normal EST GFR - AA 83 Result Comment: GFR Calc LAB L501.1300 10-20 RATIO High BUN/CRE 22.9 LAB L501.1500 6.4-8.2 g/dL T Normal PROT 7.3 LAB L501.1800 3.2-5.0 g/dL Normal ALB 3.7 LAB L501.1950 2.2-4.2 g/dL Normal GLOB 3.6 LAB L501.2000 0.9-2.4 RATIO Normal A/G 1.0 LAB L501.2200 8.5-10.1 mg/dL CA Normal 9.1 LAB L501.4100 15-37 U/L Normal AST 29 LAB L501.4305 45-117 U/L Normal ALK P 78 LAB L501.4405 16-61 U/L Normal ALT 29 LAB L501.4600 0.20-1.00 mg/dL T Normal BILI 0.50 LAB L501.5300 136-145 mmol/L NA Normal 141 LAB L501.5600 3.5-5.1 mmol/L K Normal 3.5 LAB L501.5900 98-107 mmol/L CL Normal 98 LAB L501.6100 21.0-32.0 mmol/L High CO2 36.0 LAB L501.6200 5-15 Normal GAP 7 Performed By: #### L500.4050, L506.0500 #### [facility] [address] [place], [address] PREALBUMIN Collected: 10/06/2017 Status: F Source: [place] 12:23 PM [facility] REPOSITORY TYPE CODE TESTS RESULT OUT OF RANGE REFERENCE UNITS LAB L506.0500 20.0-40.0 mg/dL Normal PREALBUMIN 30.9 Performed By: #### L500.4050, L506.0500 #### [facility] [address] [place], [address] Observed: 10/05/2017 Status: F Source: [place] CULTURE, DEEP WOUND 5:40 PM [facility] REPOSITORY Comments: RIGHT HEEL Gram Stain Gram Stain Rare Epithelial cells Rare Gram positive rods No White Blood Cells Wound Culture ORGANISM 1: Yeast, not Maria M albicans Amount Growth 2+ Cult, Anaerobic No anaerobic bacteria isolated. Performed By: #### M100.1500 #### [facility] [address] [place] [place], [address] PSA,TOTAL- DIAGNOSTIC Collected: 08/31/2017 Status: F Source: [place] 10:20 AM [facility] REPOSITORY Order Comment: Order Date: 08/28/17 Order Info: 2857-1 - PSA TYPE CODE TESTS RESULT OUT OF RANGE REFERENCE UNITS LAB L501.9940 0.0-4.0 ng/mL PSA, Normal DIAGNOSTIC 0.34 Result Comment: This test was performed using the TPSA assay method for the [employer] chemistry system. Values obtained with different assay methods cannot be used interchangably. When changing PSA assays in the course of monitoring a patient, additional sequential testing should be carried out to confirm baseline values. Performed By: #### L501.9940 #### [facility] [address] [place], [address] CBC-COMPLETE BLOOD CNT Collected: 08/31/2017 Status: F Source: [place] NO DIFF 10:20 AM [facility] REPOSITORY Order Comment: Order Date: 08/28/17 Order Info: 44421-5 - CBC TYPE CODE TESTS RESULT OUT OF RANGE REFERENCE UNITS LAB L100.1000 4.4-11.0 K/mm3 Normal WBC 5.9 LAB L100.1200 4.6-6.2 M/mm3 Low RBC 3.86 LAB L100.1300 13.0-16.5 g/dl Low HGB 12.4 LAB L100.1400 40-54 % Low HCT 37.2 LAB L100.1500 80-94 fL High MCV 96.4 LAB L100.1600 27.0-32.0 pg High MCH 32.1 LAB L100.1700 32-36 g/gl Normal MCHC 33.3 LAB L100.1810 11.6-14.6 % Normal RDW CV 13.9 LAB L100.1820 35.1-43.9 fl High RDW SD 47.4 LAB L100.1900 150-450 K/mm3 Normal PLT 328 LAB L100.2000 6.2-12.0 fl Normal MPV 9.1 Performed By: #### L100.0500 #### [facility] [address] [place], [place], [id number] BASIC METABOLIC Collected: 08/31/2017 Status: F Source: [place] PROFILE (BMP) 10:20 AM [facility] REPOSITORY TYPE CODE TESTS RESULT OUT OF RANGE REFERENCE UNITS LAB L501.0100 74-106 mg/dL Normal GLU 84 Result Comment: Please note revised GLUCOSE reference range effective 2017. LAB L501.1000 7-18 mg/dL High BUN 40 LAB L501.1100 0.70-1.30 mg/dL Normal CREAT,SERUM 0.97 Result Comment: The validity of the calculated GFR AND GFRAA in patients over 70 years has not been determined. Clinical correlation is essential. LAB L501.1110 >60 mL/min Normal EST GFR 79 Result Comment: Non- GFR Calc LAB L501.1115 >60 mL/min Normal EST GFR - AA 95 Result Comment: GFR Calc LAB L501.1300 10-20 RATIO High BUN/CRE 41.2 LAB L501.2200 8.5-10.1 mg/dL CA Normal 9.3 LAB L501.5300 136-145 mmol/L NA Normal 141 LAB L501.5600 3.5-5.1 mmol/L K Normal 3.5 LAB L501.5900 98-107 mmol/L CL Normal 100 LAB L501.6100 21.0-32.0 mmol/L High CO2 34.0 LAB L501.6200 5-15 Normal GAP 7 Performed By: #### L500.2500, L500.3400, L500.4100 #### [facility] [address] [place], [address] LIVER PROFILE Collected: 08/31/2017 Status: F Source: [place] 10:20 AM [facility] REPOSITORY TYPE CODE TESTS RESULT OUT OF RANGE REFERENCE UNITS LAB L501.1500 6.4-8.2 g/dL Normal T PROT 7.2 LAB L501.1800 3.2-5.0 g/dL Normal ALB 3.4 LAB L501.1950 2.2-4.2 g/dL Normal GLOB 3.8 LAB L501.4100 15-37 U/L Normal AST 28 LAB L501.4305 45-117 U/L Normal ALK P 88 LAB L501.4405 16-61 U/L Normal ALT 30 LAB L501.4600 0.20-1.00 mg/dL Normal T BILI 0.40 LAB L501.4700 0.00-0.30 mg/dL Normal D BILI 0.07 Performed By: #### L500.2500, L500.3400, L500.4100 #### [facility] [address] [place], [address] LIPID PROFILE Collected: 08/31/2017 Status: F Source: [place] 10:20 AM [facility] REPOSITORY TYPE CODE TESTS RESULT OUT OF RANGE REFERENCE UNITS LAB L501.4900 200 mg/dL Normal CHOL 122 Result Comment: <200 mg/dL Desirable 200-240 mg/dL Borderline >240 mg/dL High Risk LAB L501.5000 mg/dL Normal TRIG 91 Result Comment: The drugs N-Acetylcysteine and Metamizole may falsely depress this assay. Serum Triglycerides Reference Interval Normal <150 mg/dL Borderline high 150 - 199 mg/dL High 200 - 499 mg/dL Very High > or = 500 mg/dL LAB L501.6400 mg/dL Normal HDL 48 Result Comment: The drugs N-Acetylcysteine and Metamizole may falsely depress this assay. Reference Range HDL <40 mg/dL Low HDL Cholesterol HDL >or= 60 mg/dL High HDL Cholesterol LAB L501.6500 0-130 mg/dL Normal LDL 56 LAB L501.6600 5-40 mg/dL Normal VLDL 18 Performed By: #### L500.2500, L500.3400, L500.4100 #### [facility] [address] [place], [address] LOWER EXT ARTERIAL Observed: 08/23/2017 Status: F Source: [place] STUDY 11:41 AM [facility] REPOSITORY [facility] Cardiovascular Services [address] [place] [address] 08/23/17 1139 MR#: [id number] Acct: [id number] Name: FEI OLEARY Rep #: [id number] : 1935 82 From: Filemon Rose MD Attending Dr: Filemon Rose MD Status: REG CLI Ordering Dr: Date: 08/23/17 Location: [facility] Sex: M C Admitted: Arterial Study - Arterial Study Arterial Study: Date of scan 08/21/[address] Rose History: Hypertension hyperlipidemia history of stent in the right lower extremity Interpretation: Right lower extremity with some decrease flow at the low thigh further decreased down into the calf ankle and out through the digits ABIs taken that show monophasic flow at the ankle with an RALPH 0.67 of the posterior tibial 0.6 for the dorsalis pedis with the digit brachial index 0.23 next Left lower extremity with again some decreased flow noted from the thigh down to the calf ankle out through the digits duplex shows biphasic flow both vessels at the ankle with an RALPH 0.78 a posterior tib 0.77 the dorsalis pedis. With the digit brachial index 0.48. Impression: 1. Moderate arterial occlusive disease with an RALPH 0.67 and monophasic flow noted. Evidence of small vessel disease with the digit brachial index 0.23 2. Left lower extremity with mild arterial occlusive disease with biphasic flow noted and RALPH 0.78. Mild small vessel disease with the digit brachial index 0.48 08/23/17 1141 <Electronically signed by Filemon Rose MD> Date Filemon Rose MD CC: Filemon Rose MD; Radha Bran MD Date Dictated: 08/23/17 1139 Date Transcribed: 08/23/17 1139 Building Certifier: YEISON Signed CARDIOLOGY VISIT Observed: 08/08/2017 Status: F Source: [place] REPORT 12:02 PM [facility] REPOSITORY [facility] [address] [place], [place] [address] OFFICE VISIT Date of Service: 08/03/17 MR#: [id number] Acct: [id number] Name: FEI OLEARY Rep #: [id number] : 1935 Provider: Janes Loera MD Age/Sex: 81/M Location: [facility] Status: Signed HPI [facility] Chief Complaint: Follow up Details: FEI OLEARY, is a 81 M who presents to the office today for a follow-up visit. He is a gentleman with a history of coronary artery disease status post angioplasty and stenting of the right coronary artery 2 in 2004 restenosis in 2011 and again in 2013 and 2016. His last cardiac catheterization 2015 demonstrated severe two-vessel disease with a 50% stenosis of the mid left anterior descending artery for which she underwent fractional flow reserve evaluation which was 0.86 and was not hemodynamically significant. He underwent angioplasty and stenting of a restenotic right coronary artery lesion. He is done well since then with no chest pain or shortness of breath or paroxysmal nocturnal dyspnea he is not able to exert himself much because of other noncardiac issues. He has had some bilateral lower extremity edema and some shortness of breath with activity. He has not had any obvious dizziness no diaphoresis no near syncope or syncope. He has been compliant with all his medications. 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: No Accompanied by: None Is patient in pain?: No Allergies carisoprodol Allergy (Verified 08/03/17 11:21) Other itraconazole Allergy (Verified 08/03/17 11:21) Other Medications Clopidogrel Bisulfate [Plavix] 75 mg PO DAILY 01/14/13 [History Confirmed 08/03/17] Multivit-Min/FA/Lycopene/Lut [Centrum Silver Tablet] 1 tab PO DAILY 01/14/13 [History Confirmed 08/03/17] Nitroglycerin [Nitrostat] 0.4 mg SUBLINGUAL Q5M PRN 01/14/13 [History Confirmed 08/03/17] Ferrous Sulfate 325 mg PO DAILY@0800 10/07/15 [History Confirmed 08/03/17] Omeprazole [Prilosec] 20 mg PO DAILY 10/07/15 [History Confirmed 08/03/17] Aspirin E.C. [Ecotrin] 81 mg PO DAILY@0800 03/08/17 [History Confirmed 08/03/17] Furosemide [Furosemide] 40 mg PO DAILY 03/08/17 [History Confirmed 08/03/17] Gabapentin [Neurontin] 03/08/17 [History] Naproxen 375 mg PO BID PRN 03/08/17 [History Confirmed 08/03/17] Vitamin E 400 unit PO DAILY 03/08/17 [History Confirmed 08/03/17] metoprolol succinate ER 25 mg tablet,extended release 24 hr 12.5 mg PO QDAY #45 tab 06/15/17 [Rx Confirmed 08/03/17] atorvastatin 20 mg tablet 20 mg PO QDAY 08/01/17 [History Confirmed 08/03/17] acetaminophen 500 mg tablet 500 mg PO BID PRN 08/03/17 [History Confirmed 08/03/17] lisinopril 10 mg tablet 10 mg PO QDAY #90 tab 08/03/17 [Rx Confirmed 08/03/17] mirabegron ER 50 mg tablet,extended release 24 hr 50 mg PO QDAY 08/03/17 [History Confirmed 08/03/17] Ejection fraction %: 60 to 64 (60% per echo 02/27/2012 at [facility]) [facility], [facility] Medical History Palpitations (Acute) Presence of stent in coronary artery (Chronic) 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) GERD (gastroesophageal reflux disease) (Chronic) Hypertension (Chronic) Hyperlipidemia (Chronic) Obstructive sleep apnea (Chronic) Peripheral vascular disease (Chronic) Prostate cancer (Acute) Spondylolisthesis (Acute) DDD (degenerative disc disease) (Chronic) Lumbar radiculopathy (Chronic) Lumbar stenosis (Chronic) Peripheral neuropathy (Chronic) 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) Surgical History Postsurgical percutaneous transluminal coronary angioplasty (PTCA) status (Chronic) History of back surgery (Resolved) History of hernia repair (Resolved) History of prostatectomy (Resolved) History of shoulder surgery (Resolved) History of tonsillectomy (Resolved) Family History Mother CVA (cerebral vascular accident) Sister Hypertension Social History Smoking Status: Never smoker alcohol intake: former details: 1 glass of red wine x3 days a week substance use type: does not use caffeine: No what type of physical activity do you participate in: none seatbelt use: always do you feel safe at home: Yes ROS Const Const: Negative for body ache, fever(s), chills, night sweats, daytime sleepiness, difficulty sleeping, weight gain, weight loss, increased appetite, poor appetite, anorexia, other, fatigue, excessive sweating, frequent falls, headache(s) or weakness Eyes Eyes: Negative for blind spots, loss of peripheral vision, transient loss of vision, change in vision, floaters, tunnel vision, other, blurry vision or double vision ENT ENT: Negative for hearing loss, tinnitus, Nosebleed/epistaxis, post nasal drip, lip swelling, tongue swelling, bleeding gums, hoarseness, neck pain, dry mouth, other, balance problems, dizziness or headache(s) Cardio Chest Pain: No Palpitations: No Edema: Bilateral (pitting lower extremity edema) Muscle aches with walking: None Resp Respiratory: Positive for SOB with activity; negative for SOB at rest, SOB orthopnea\SOB lying down, Cough, crackles, wheezing, chest congestion, paroxysmal nocturnal dyspnea or Coughing up blood/hemoptysis GI GI: Negative nausea, vomiting, heartburn, constipation, belching, bloating, cramping, vomiting blood/hematemesis, bright, red blood in stools, black,tarry stools, loose stools, Difficulty Swallowing or other : Positive for erectile dysfunction; negative for hematuria, frequent nighttime urination/ nocturia or abnormal vaginal bleeding Musc Musc: Positive for joint pain and muscle weakness; negative for muscle aches/ myalgia or balance problems Skin Skin: Negative redness, non-healing lesions, rash, unusual bruising, skin ulcer, wounds, jaundice or other Neuro Neuro: Negative for dizziness, lightheadedness, near syncope, syncope, orthostatic symptoms, frequent falls, headache(s), weakness, confusion, memory loss, restless legs, blurry vision, double vision, vertigo, seizures, lack of coordination or other Beau Hematologic/Lymphatic: Negative for easy bleeding, easy bruising or enlarged lymph nodes Endo Endo: Negative for fatigue, cold intolerance, heat intolerance, excessive sweating, flushing, increased thirst/drinking, increased hunger, hair loss, hair growth or other Psych Psych: Negative for anxiety, depression, thoughts of harming anyone, thoughts of harming yourself, panic attacks, visual hallucinations or audible hallucinations Allergy Allergy/Immunology: Negative for throat swelling, Negative for hives, Negative for lip swelling, Negative for tongue swelling, Negative for rash Cardiology Exam Const Appearance: cooperative, healthy appearing, well developed, well groomed and no acute distress Nutritional Appearance: well nourished and average body habitus Orientation: alert, awake and oriented x3 Head Head: normal to inspection, normocephalic and atraumatic Ears: hearing grossly normal bilaterally and external ears normal Nose: external nose normal, nasal mucous membranes and turbinates normal, nares normal, septum normal, no nasal discharge Face and Sinus: face symmetric Mouth: oral mucosae normal, tongue normal, oropharynx normal and moist mucous membranes Teeth and gingiva: dentition normal Throat: posterior oropharynx normal, tonsils normal and uvula midline Eyes General: appearance normal, both eyes and all related structures Eyelids: eyelids normal Conjunctivae: conjunctivae normal Pupils: PERRL, normal by confrontation and accommodation normal EOM: EOM intact bilaterally Neck Neck: normal visual inspection, trachea midline and no JVD JVD: +5 Carotids: normal carotid upstroke and bounding pulses Chest Chest inspection: normal inspection of the chest, symmetric chest movement and normal respiratory effort Auscultation: Bilateral: Clear to Auscultation Cardio Palpation: normal PMI Rate: regular rate Rhythm: regular rhythm Heart sounds: S1 normal, S2 normal and normal, physiologic split S2; negative rub, gallop or murmur GI GI: normal to inspection, soft, no hepatosplenomegaly and bowel sounds present Neuro General: alert, awake, oriented x3, no focal sensory deficit, gait normal and moves all extremities Skin Skin: no rashes or lesions noted Extremities Pulses: Normal: Right Femoral Pulse, Left Femoral Pulse, Right Dorsalis Pedis Pulse, Left Dorsalis Pedis Pulse, Right Posterior Tibial Pulse, Left Posterior Tibial Pulse, Right Radial Pulse, Left Radial Pulse Lower Extremity Edema: None: Bilateral Musculoskel Musculoskeletal: No joint tenderness Psych Psychological: normal affect Assessment AND Plan 1. Essential hypertension I10 Plan His blood pressure appears to be elevated today and he tells me that it has also been elevated at home. You do remember his last visit in January 2017 he also did notice an elevation in blood pressure my recommendation will be to start lisinopril 10 mg a day and discontinue his potassium and obtain a chemistry profile in a month. Orders Orders: 2. Atherosclerosis of [place] coronary artery of [place] heart without angina pectoris I25.10 PTCA/Stent to mid RCA 08/06/04; cutting balloon angioplasty with TAMERA to mid RCA 02/19; PTCA/Stent of focal instent stenosis of RCA 06/18/09; PCI/TAMERA to Ostial PDA and PTCA/Stent of instent restenosis RCA 09/03/13; [employer]/TAMERA Instent restenosis of mid RCA 10/07/15; FFR mid LAD @ [facility] 10/08/15 Plan He does have a history of coronary artery disease status post angioplasty and stenting of the right coronary artery repeatedly. He has not had any angina or any symptoms of what he had prior to his cardiac catheterization my recommendation was for us to continue to manage him expectantly. Orders Orders: 3. Pure hypercholesterolemia E78.00; E78.0 Plan He remains on medium intensity statin this will be continued and a chemistry lipid profile would also be obtained within the next month. Thank you for allowing me to participate in the care of your patient. Please don't hesitate to call if any issues arise. I think he would benefit greatly from physical therapy and I have asked him to discuss this with you at his next visit. 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 transplanted heart: [place] heart Pure hypercholesterolemia E78.00; E78.0 Hyperlipidemia type: pure hypercholesterolemia Coding Level of Care Code Off vis,est,level 4 Diagnoses Essential hypertension I10 Hypertension type: essential hypertension Atherosclerosis of [place] coronary artery of [place] heart without angina pectoris I25.10 [place] vs. transplanted heart: [place] heart Pure hypercholesterolemia E78.00; E78.0 Hyperlipidemia type: pure hypercholesterolemia 08/08/17 1202 <Electronically signed by Janes Loera MD> Date Janes Loera MD Cosigner Signature: Date (if applicable) CC: Radha Bran MD SPINE THORACIC Observed: 07/04/2017 Status: F Source: [place] WITHOUT CONTRAS 4:47 PM [facility] REPOSITORY [facility] Imaging Services [address] [place] [address] Spine Thoracic without Contras MR#: [id number] Acct: [id number] Name: FEI OLEARY Rep #: [id number] : 1935 M 81 From: Phil Reid MD PCP: Radha Bran MD Status: REG CLI Study: Spine Thoracic without Contras Date of Exam: 07/04/17 Exam# [id number] Ordering Dr: Jeniffer Smith COOPERATIVE EXTENSION AGENT-C STUDY: CT THORACIC SPINE WITHOUT CONTRAST REASON FOR EXAM: Male, 81 years old. Incontinence of urine and stool. RADIATION DOSAGE (If Supplied By Facility): CTDIvol = ( 18.42 ) mGy, DLP = ( 746.98 ) mGycm TECHNIQUE: The patient was scanned in a multi detector CT scanner. High resolution imaging was performed. Images were obtained from C7 to L2. Sagittal and coronal images were reconstructed. Individualized dose optimization techniques were used for this CT. COMPARISON: None. FINDINGS: None visualized cervical spine. There is a mildly increased kyphosis of the thoracic spine. There is a 6-7 degree levoscoliosis centered at T10. There is spotty demineralization of the thoracic vertebrae and endplates. There is multilevel endplate spondylosis of the thoracic spine. There are degenerative changes at various facet articulations of the mid to lower thoracic spine. 1 cm rounded lesion with internal trabeculae and gas lucencies in the left anterior T11 vertebra may be a complex Schmorl's node. Other focal endplate invaginations consistent with benign Schmorl's node seen T6-T10. There is multilevel degenerative disc disease with loss of the disc space heights. There is mild anterior wedging of the T8 vertebra. There is an osseous fusion between the left T12 and L1 vertebra. Incidental note of atherosclerotic calcification and tortuosity of the descending thoracic aorta. CT/Spine Thoracic without Contras IMPRESSION: 1. Diffuse degenerative changes and spotty demineralization of the thoracic spine, as described. 2. Mild anterior wedging of the T8 vertebra has no associated paraspinal soft tissue swelling, suggesting this is old. There is also chronic osseous fusion between the left margins of the T12 and L1 vertebra. Electronically Signed: Abhijit Reid MD at 13:55 EDT , Service support , CC: RODOLFO Smith; Radha Brna MD Building Certifier: Signed SPINE LUMBAR WITHOUT Observed: 07/04/2017 Status: F Source: [place] CONTRAST 4:47 PM [facility] REPOSITORY [facility] Imaging Services [address] [place] [id number] Spine Lumbar without Contrast MR#: [id number] Acct: [id number] Name: FEI OLEARY Rep #: [id number] : 1935 81 From: Phil Reid MD PCP: Radha Bran MD Status: REG CLI Study: Spine Lumbar without Contrast Date of Exam: 07/04/17 Exam# [id number] Ordering Dr: Jeniffer Smith COOPERATIVE EXTENSION AGENT-C STUDY: CT LUMBAR SPINE WITHOUT CONTRAST REASON FOR EXAM: Male, 81 years old. Incontinence of urine and stool. RADIATION DOSAGE (If Supplied By Facility): CTDIvol = ( 16.10 ) mGy, DLP = ( 384.53 ) mGycm TECHNIQUE: The patient was scanned in a multi detector CT scanner. High resolution transaxial imaging was performed. Images were obtained from T11-12 to past 2. Sagittal and coronal images were reconstructed. Individualized dose optimization techniques were used for this CT. COMPARISON: CT lumbar spine March 08, 2017. FINDINGS: Again seen is resection of the L4 spinous process as well as laminectomies at L5 and S1. Also again seen is prior left-sided posterior lumbosacral fusion with transpedicular screws connected by a longitudinal metal phoebe. Normal lumbar lordosis. There is a 28 degree levoscoliosis centered at L4-5. Incidental note of stable osseous fusion between the left side of the T12 and L1 vertebrae. No acute fracture of the vertebrae of the lumbar spine. Stable lobulated, thinly corticated, internally septated 2.6 x 3.65 x 2.1 cm cystic lesion in the posterior medial right ilium. There are degenerative arthroses of the bilateral sacroiliac joints L1-2: Circumferential endplate osteophytes, most prominent to the left and posteriorly. Focal invagination of the central superior L2 endplate consistent with benign Schmorl's node(s). Severe disc height narrowing with vacuum phenomenon. Degenerative arthroses of the bilateral facet joints with moderately severe joint space narrowing and anterior periarticular spurring. Moderate osseous narrowing of the central canal and bilateral lateral recesses. [id number] osseous narrowing of the bilateral intervertebral neural foramina, greater on the left. L2-3: Circumferential endplate osteophytes. Severe disc height narrowing with multifocal osseous fusion of the vertebral endplates. There is hypertrophic osseous fusion of the bilateral facet joints. Moderate osseous narrowing of the central canal and bilateral lateral recesses. Mild osseous narrowing of the left intervertebral neural foramen. L3-4: Circumferential endplate osteophytes, most prominent to the right and posteriorly. Severe disc height narrowing with vacuum phenomenon. Degenerative arthroses of the bilateral facet joints with moderately severe joint space narrowing. Hypertrophic periarticular spurring is greater on the right. Moderate osseous narrowing of the central canal and bilateral lateral recesses. Moderate to moderately severe osseous narrowing of the bilateral intervertebral neural foramina. L4-5: Circumferential endplate osteophytes, most prominent to the right and posteriorly. Severe disc height narrowing with vacuum phenomenon. Degenerative arthroses of the bilateral facet joints with moderately severe joint space narrowing. Hypertrophic periarticular spurring is greater on the right, while there is partial osseous fusion on the left. Moderate osseous narrowing of the central canal and bilateral lateral recesses. Moderate osseous narrowing of the bilateral intervertebral neural foramina. L5-S1: Osseous fusion across the vertebral endplates, as well as mild circumferential spurring. Severe degenerative arthrosis of the right facet joint with hypertrophic periarticular spurring. There is osseous fusion of the left facet complex. There is stable grade 1-2 anterolisthesis of L5 on S1. Moderate osseous narrowing of the central canal and bilateral lateral recesses. Moderate osseous narrowing of the bilateral intervertebral neural foramina. Normal visualized paraspinous soft tissue structures. There are atherosclerotic calcifications of the abdominal aorta and iliac arteries. CT/Spine Lumbar without Contrast IMPRESSION: 1. Stable multilevel degenerative changes, as described above. 2. Prior resection of the L4 spinous process as well as L5 and S1 laminectomies. Prior left-sided posterior lumbosacral fusion with metal hardware. There is osseous fusion at L5-S1 with stable grade 1-2 spondylolisthesis. Mid lumbar levoscoliosis also unchanged. 3. Aortoiliac atherosclerotic calcification. Electronically Signed: Abhijit Reid MD at 14:26 EDT , Service support , CC: RODOLFO Smith; Radha Bran MD Building Certifier: Signed ALLERGIES ALLERGIES DATE TYPE / CODE NAME / CODE REACTION SEVERITY SOURCE 02/14/2018 Drug carisoprodol Other Unknown [facility] Allergy/4160 /[id number]( [place] [address](SNOMED RXNORM) Repository CT) 02/14/2018 Drug itraconazole Other Unknown [facility] Allergy/4160 /[id number]( [place] [address](SNOMED RXNORM) Repository CT) ENCOUNTERS ENCOUNTERS ADMIT/DISCHARGE ACCOUNT NUMBER ADMITTING ENCOUNTER LOCATION SOURCE CLASS 04/03/2018 [id number] Ambulatory ABuilding:SHARI Russo [facility] Repository 03/19/2018 [id number] Ambulatory [facility] ding:WC Repository 03/12/2018/03/16/20 [id number] Ambulatory [address] ding:WC Repository 03/12/2018 [id number] Ambulatory [facility] ding:MASS Repository 02/20/2018 [id number] [facility] 02/15/2018 [id number] Ambulatory BMSBuilding: [place] [facility] Repository 02/15/2018 [id number] Ambulatory BMSBuilding: [place] Repository 02/14/2018/02/16/20 [id number] [place], Ambulatory [place] ding:PCURoom Repository : GXY599Iid: 1 02/14/2018 [id number] Agyepong, Ambulatory BMSBuilding: [place] [facility] Repository 02/14/2018 [id number] Agyepong, Ambulatory BMSBuilding: [place] [facility] Repository 01/26/2018/01/27/20 [id number] Ambulatory BMSBuilding: [place] 18 BMS.[facility] Repository 11/25/2017 [id number] Ambulatory [facility] ding:WC Repository 11/09/2017/11/15/19 [id number] Ambulatory [place] ding:WC Repository 11/09/2017 [id number] Ambulatory BMSBuilding: [place] BMS.[facility] Repository 11/02/2017 [id number] Ambulatory BMSBuilding: [place] [facility]MS.[facility] Repository 10/26/2017 [id number] Ambulatory BMSBuilding: [place] BMS.CF.[facility] Repository 10/24/2017 [id number] Ambulatory BMSBuilding: [place] BMS.CF.[facility] Repository 10/12/2017/10/15/19 [id number] Ambulatory [place] ding:WC Repository 10/12/2017 [id number] Ambulatory BMSBuilding: [place] BMS.CF.[facility] Repository 10/06/2017 [id number] Ambulatory [facility] ding:LAB Repository 10/05/2017 [id number] Ambulatory BMSBuilding: [place] BMS.CF.[facility] Repository 08/31/2017 [id number] Ambulatory [facility] ding:LAB.FUT Repository URE 08/21/2017 [id number] Ambulatory [facility] ding:CVS Repository 08/03/2017/08/04/19 [id number] Ambulatory BMSBuilding: [place] 18 BMS.[facility] Repository 08/01/2017 [id number] Ambulatory BMSBuilding: [place] BMS.[facility] Repository 07/04/2017 [id number] Ambulatory [facility] ding:CT Repository PAYERS PAYERS ENCOUNTER GUARANTOR PAYER SUBSCRIBER SOURCE 04/03/2018 FEI Kapoor [facility] BLANCHARDDOB: Insurance:MEDICARE BLANCHARDDOB: [facility] PART B INSCOPolicy [id number] Repository PAMELA EVER Number: GIOVANNY CURTIS [place], [place] [id number] [place], [place] [address]Xao: 330) Date:2018-04-0327027Vef: () [id number] Name:PCGS ()Tel: ([phone]) Administrators LLCPO 000-0000 () [address] [place] [address] 33570NX: 04/03/2018 [facility] BLANCHARDDOB: [facility] HEALTH-SECONDARY ONLY [id number] Repository INSCOPolicy Number: [address] [id number] [place] Date:2018-04-0301616Fki: [id number] [phone] Name:BOOTH USHER Box ()Tel: ([phone]) 148544Az[place]kd, [place] 000-0000 (WP) [address]CK: 03/19/2018 FEI Kapoor Primary FEI Antwon [facility]751 Insurance:[facility]ICARE [facility]: [facility] PART A BPolicy [id number] Number: Repository [address]Wrh: 330 [id number] [phone] () Date:2018-02-28 03/19/2018 Secondary FEI Antwon [place] Insurance:AARPPolicy BLANCHARDDOB: Community Number: [id number] Hospital [id number] Repository Date:7904-23-19[address]UKB, [place] [address]IW: 03/19/2018 Tertiary NOT GIVENUNK [place] Insurance:SELF PAY [facility] Number: Effective Repository Date:2018-03-17 03/12/2018 FEI J Primary FEI Antwon [place] [id number] Insurance:MEDICARE BLANCHARDDOB: Community [place] PART A olic [id number] [place] Number: Repository [address]Yzx: 330 [id number] [phone] () Date:2018-02-28 03/12/2018 Secondary FEI Antwon [place] Insurance:AARPPolicy BLANCHARDDOB: Community Number: [id number] Hospital [id number] Repository Date:6444-97-40[address], [place] [address]OU: 03/12/2018 Tertiary NOT GIVENUNK [place] Insurance:SELF PAY [facility] Number: Effective Repository Date:2018-02-28 03/12/2018 FEI J Primary NOT GIVENUNK [place] [id number] Insurance:SELF PAY [facility] [place] Number: Effective Repository [id number]: (330) Date:2015-04-30 [phone] () 02/20/2018 FEI J Primary FEI Antwon [place] [id number] Insurance:MEDICARE BLANCHARDDOB: Community [place] PART A olic [id number] [place] Number: Repository [address]Msv: 330 [id number] [phone] () Date:2018-02-20 02/20/2018 Secondary FEI Antwon [place] Insurance:AARPPolicy BLANCHARDDOB: Community Number: [id number] Hospital [id number] Repository Date:0216-65-17BF [address], [place] [address]MY: 02/20/2018 Tertiary NOT GIVENUNK [place] Insurance:SELF PAY [facility] Number: Effective Repository Date:2018-02-20 02/15/2018 FEI Kapoor Primary FEI Niet[place] [id number] Insurance:MEDICARE BLANCHARDDOB: Community [place] PART A [facility] [id number] Number: Repository [id number]: 330 [id number] [phone] (HP) Date:2018-02-14 02/15/2018 Secondary FEI Antwon [place] Insurance:AARPPolicy BLANCHARDDOB: Community Number: [id number] Hospital [id number] Repository Date:7472-21-75RG [facility] [address], [place] [address]BY: 02/15/2018 Tertiary NOT GIVENUNK [place] Insurance:SELF PAY [facility] Number: Effective Repository Date:2018-02-15 02/15/2018 FEI J Primary FEI [place] [id number] Insurance:MEDICARE BLANCHARDDOB: Community [place] PART A [facility] [id number] Number: Repository [address]Vof: 330 [id number] [phone] () Date:2018-02-14 02/15/2018 Secondary FEI Antwon [place] Insurance:AARPPolicy BLANCHARDDOB: Community Number: [id number] Hospital [id number] Repository Date:8003-12-68UU [facility] 982446DFQ[place]SR, [place] [address]VR: 02/15/2018 Tertiary NOT GIVENUNK [place] Insurance:SELF PAY [facility] Number: Effective Repository Date:2018-02-15 02/14/2018 FEI J Primary FEI Kapoor [place] [id number] Insurance:MEDICARE BLANCHARDDOB: Community [place] PART A [facility] [id number], [place] Number: Repository [address]Rpk: 330 [id number] [phone] () Date:2018-02-14 02/14/2018 Secondary FEI Nieto Insurance:AARPPolicy BLANCHARDDOB: Community Number: [id number] Hospital [id number] Repository Date:0707-93-97IQ [facility] 728416JRJQXLM, [place] [address]WH: 02/14/2018 Tertiary NOT GIVENUNK [place] Insurance:SELF PAY [facility] Number: Effective Repository Date:2018-02-14 02/14/2018 FEI J Primary FEI Niet[place] [id number] Insurance:MEDICARE BLANCHARDDOB: [facility] PART A [facility] [id number] Number: Repository [address]Vlr: 330 [id number] [phone] () Date:2018-02-14 02/14/2018 Secondary FEI Antwon [place] Insurance:AARPPolicy BLANCHARDDOB: Community Number: [id number] Hospital [id number] Repository Date:5039-39-19PQ [address]NTHZBVH, [place] [address]JX: 02/14/2018 Tertiary NOT GIVENUNK [place] Insurance:SELF PAY [facility] Number: Effective Repository Date:2018-02-14 02/14/2018 FEI J Primary FEI Nieto [id number] Insurance:MEDICARE BLANCHARDDOB: [facility] PART A [facility] [id number], [place] Number: Repository [address]Gwj: 330 [id number] [phone] () Date:2018-02-14 02/14/2018 Secondary FEI Kapoor [place] Insurance:AARPPolicy BLANCHARDDOB: Community Number: [id number] Hospital [id number] Repository Date:3215-36-46CP [facility] 388436ECRBUCB, [place] [address]XX: 02/14/2018 Tertiary NOT GIVENUNK [place] Insurance:SELF PAY [facility] Number: Effective Repository Date:2018-02-14 01/26/2018 FEI Kapoor Primary FEI Niet[place] [id number] Insurance:MEDICARE BLANCHARDDOB: [facility] PART A [facility] [id number], [place] Number: Repository [address]Hye: 330 [id number] [phone] (HP) Date:2017-08-03 01/26/2018 Secondary FEI Nieto Insurance:AARPPolicy BLANCHARDDOB: Community Number: [id number] Hospital [id number] Repository Date:8671-85-40[address], [place] [address]HO: 01/26/2018 Tertiary NOT GIVENUNK [place] Insurance:SELF PAY [facility] Number: Effective Repository Date:2018-01-26 11/25/2017 FEI Antwon Primary FEI Nieto [id number] Insurance:MEDICARE BLANCHARDDOB: [facility] [id number] [place] Number: Repository [address]Hje: 330 [id number] [phone] (HP) Date:2017-10-05 11/25/2017 Secondary FEI Nieto Insurance:AARPPolicy BLANCHARDDOB: Community Number: [id number] Hospital [id number] Repository Date:1589-99-17PL [address]XDRJDHK, [place] [address]DR: 11/25/2017 Tertiary NOT GIVENUNK [place] Insurance:SELF PAY [facility] Number: Effective Repository Date:2017-11-15 11/09/2017 FEI Antwon Primary FEI Nieto [id number] Insurance:MEDICARE BLANCHARDDOB: [facility] PART A [facility] [id number] [facility] Number: Repository [address]Szg: 330 [id number] [phone] (HP) Date:2017-10-05 11/09/2017 Secondary FEI Antwon [place] Insurance:AARPPolicy BLANCHARDDOB: Community Number: [id number] Hospital [id number] Repository Date:9038-23-10AO [address]CMYJSNN, [place] [address]YE: 11/09/2017 Tertiary NOT GIVENUNK [place] Insurance:SELF PAY [facility] Number: Effective Repository Date:2017-10-15 11/09/2017 FEI J Primary FEI Nieto [id number] Insurance:MEDICARE BLANCHARDDOB: Community [place]AU[place] PART A [facility] [id number], [place] Number: Repository [address]Jin: (254) [id number] [phone] () Date:2017-10-05 11/09/2017 Secondary FEI J [place] Insurance:AARPPolicy BLANCHARDDOB: Community Number: [id number] Hospital [id number] Repository Date:3031-92-09EI [address]XXNQWUI, [place] [address]BW: 11/09/2017 Tertiary NOT GIVENUNK [place] Insurance:SELF PAY [facility] Number: Effective Repository Date:2017-11-09 11/02/2017 FEI J Primary FEI Nieto [id number] Insurance:MEDICARE BLANCHARDDOB: [facility] PART A [facility] [id number], [place] Number: Repository [address]Ygp: 330 [id number] [phone] () Date:2017-10-05 11/02/2017 Secondary FEI J [place] Insurance:AARPPolicy BLANCHARDDOB: Community Number: [id number] Hospital [id number] Repository Date:6417-85-89WQ [address]XSKLJAN, [place] [address]TC: 11/02/2017 Tertiary NOT GIVENUNK [place] Insurance:SELF PAY [facility] Number: Effective Repository Date:2017-11-02 10/26/2017 FEI J Primary FEI Kapoor [place] [id number] Insurance:MEDICARE BLANCHARDDOB: Community [place] PART A [facility] [id number] Fort [facility] Number: Repository [address]Brt: 330 [id number] [phone] (HP) Date:2017-10-05 10/26/2017 Secondary FEI Nieto Insurance:AARPPolicy BLANCHARDDOB: Community Number: [id number] Hospital [id number] Repository Date:5089-67-34SX [address]UWYYHJH, [place] [address]KP: 10/26/2017 Tertiary NOT GIVENUNK [place] Insurance:SELF PAY [facility] Number: Effective Repository Date:2017-10-26 10/24/2017 FEI J Primary FEI Nieto [id number] Insurance:MEDICARE BLANCHARDDOB: Community [place] PART A [facility] [id number] [facility] Number: Repository [address]Qea: 330 [id number] [phone] () Date:2017-10-05 10/24/2017 Secondary FEI Antwon [place] Insurance:AARPPolicy BLANCHARDDOB: Community Number: [id number] Hospital [id number] Repository Date:7488-21-66[address]DTPTRNP, [place] [address]EY: 10/24/2017 Tertiary NOT GIVENUNK [place] Insurance:SELF PAY [facility] Number: Effective Repository Date:2017-10-24 10/12/2017 FEI J Primary FEI Nieto [id number] Insurance:MEDICARE BLANCHARDDOB: Community [place]AM[place] PART A olic [id number] [facility] Number: Repository [address]Mwp: 330 [id number] [phone] () Date:2017-10-05 10/12/2017 Secondary FEI Antwon [place] Insurance:AARPPolicy BLANCHARDDOB: Community Number: [id number] Hospital [id number] Repository Date:9817-78-78BR [address], [place] [address]IY: 10/12/2017 Tertiary NOT GIVENUNK [place] Insurance:SELF PAY [facility] Number: Effective Repository Date:2017-10-05 10/12/2017 FEI Kapoor Primary FEI Nieto [id number] Insurance:MEDICARE BLANCHARDDOB: Community [place] PART A olic [id number] [place] Number: Repository [id number]: 330 [id number] [phone] (HP) Date:2017-10-05 10/12/2017 Secondary FEI J [place] Insurance:AARPPolicy BLANCHARDDOB: Community Number: [id number] Hospital [id number] Repository Date:4404-81-65IA [facility] 337085MCXAVTK, [place] [address]RY: 10/12/2017 Tertiary NOT GIVENUNK [place] Insurance:SELF PAY [facility] Number: Effective Repository Date:2017-10-12 10/06/2017 FEI J Primary FEI Nieto [id number] Insurance:MEDICARE BLANCHARDDOB: Community [place]AUGHN PART A [facility] [id number] [facility] Number: Repository [address]Rfp: 330 [id number] [phone] () Date:2017-10-06 10/06/2017 Secondary FEI Antwon [place] Insurance:AARPPolicy BLANCHARDDOB: Community Number: [id number] Hospital [id number] Repository Date:4753-27-83FF [address]DGRNCGY, [place] [address]DI: 10/06/2017 Tertiary NOT GIVENUNK [place] Insurance:SELF PAY [facility] Number: Effective Repository Date:2017-10-06 10/05/2017 FEI Antwon Primary FIE Nieto [id number] Insurance:MEDICARE BLANCHARDDOB: Community [place]AM[place] PART A [facility] [id number] [facility] Number: Repository [id number]: 330 [id number] [phone] (HP) Date:2017-10-05 10/05/2017 Secondary FEI J [place] Insurance:AARPPolicy BLANCHARDDOB: Community Number: [id number] Hospital [id number] Repository Date:0032-28-84W[address]KWPOKPL, [place] [address]PS: 10/05/2017 Tertiary NOT GIVENUNK [place] Insurance:SELF PAY [facility] Number: Effective Repository Date:2017-10-05 08/31/2017 FEI Antwon Primary FEI Nieto [id number] Insurance:MEDICARE BLANCHARDDOB: Community [place]AM[place] PART A olicy [id number], [place] Number: Repository [address]Irq: 330 [id number] [phone] () Date:2017-08-29 08/31/2017 Secondary FEI J [place] Insurance:AARPPolicy BLANCHARDDOB: Community Number: [id number] Hospital [id number] Repository Date:1152-38-85VP [address]XJWHCBQ, [place] [address]DC: 08/31/2017 Tertiary NOT GIVENUNK [place] Insurance:SELF PAY [facility] Number: Effective Repository Date:2017-08-29 08/21/2017 FEI Antwon Primary FEI Nieto [id number] Insurance:MEDICARE BLANCHARDDOB: Community AHMIDA PART A olic [id number], [place] Number: Repository [id number]: 330 [id number] [phone] () Date:2017-08-08 08/21/2017 Secondary FEI Antwon [place] Insurance:AARPPolicy BLANCHARDDOB: Community Number: [id number] Hospital [id number] Repository Date:2296-30-95QC [address]INMUCTT, [place] [address]OJ: 08/21/2017 Tertiary NOT GIVENUNK [place] Insurance:SELF PAY [facility] Number: Effective Repository Date:2017-08-08 08/03/2017 FEI J Primary FEI Nieto [id number] Insurance:MEDICARE BLANCHARDDOB: Community [place]AM[place] PART A olicy [id number], [place] Number: Repository 35[address]Rsf: 330 [id number] [phone] (HP) Date:2017-03-26 08/03/2017 Secondary FEI Antwon [place] Insurance:AARPPolicy BLANCHARDDOB: Community Number: [id number] Hospital [id number] Repository Date:2340-20-20XU [address]CMGQAUO, [place] [address]FX: 08/03/2017 Tertiary NOT GIVENUNK [place] Insurance:SELF PAY [facility] Number: Effective Repository Date:2017-08-03 08/01/2017 Fei J Primary Fei Nieto [id number] Insurance:MEDICARE BlanchardDOB: Community [place] PART A olicy [id number]. [facility] [place] Number: Repository [id number]: 330 [id number] [phone] (HP) Date:2017-08-01 08/01/2017 Secondary Fei J [place] Insurance:AARPPolicy BlanchardDOB: Community Number: [id number] Hospital [id number] Repository Date:8435-86-23XG [address]TFONYMW, [place] [address]JD: 08/01/2017 Tertiary NOT GIVENUNK [place] Insurance:SELF PAY [facility] Number: Effective Repository Date:2017-08-01 07/04/2017 Fei J Primary Fei Antwon Nieto [id number] Insurance:MEDICARE BlanchardDOB: Community [place] PART A olicy [id number] [place] Number: Repository [address]Cxq: 330 [id number] [phone] (HP) Date:2017-06-27 07/04/2017 Secondary Fei J [place] Insurance:AARPPolicy BlanchardDOB: Community Number: [id number] Hospital [id number] Repository Date:3899-08-43FD [address]WMDPZFS, [place] [address]JH: 07/04/2017 Tertiary NOT GIVENUNK [place] Insurance:SELF PAY [facility] Number: Effective Repository Date:2017-06-27
== END 2018-04-16 23:59 ==
LOC: WC 09:11
PROVIDERS: Family Provider Family Medicine; PCP Family Medicine; Visit Provider Surgery
DX: I70.234 Atherosclerosis of native arteries of right leg with ulceration of heel and midfoot (principal); R32 Unspecified urinary incontinence; R15.9 Full incontinence of feces; I10 Essential (primary) hypertension; L97.412 Non-pressure chronic ulcer of right heel and midfoot with fat layer exposed; I25.10 Atherosclerotic heart disease of native coronary artery without angina pectoris; Z95.5 Presence of coronary angioplasty implant and graft; K21.9 Gastro-esophageal reflux disease without esophagitis; E78.5 Hyperlipidemia, unspecified; G47.33 Obstructive sleep apnea (adult) (pediatric); G89.29 Other chronic pain
CPT/HCPCS: 11042

== ENCOUNTER 2018-07-30 10:49 | Observation (INO) | payer MEDICARE, OTHER, SELFPAY ==
--- NOTE | 2018-07-09 16:59 | HP_ITS ---
Intake Vital Signs 07/09/18 Body Mass Index (BMI) 20.0 07/09/18 Height 5 ft 6 in 07/09/18 Weight: 125 lb 07/09/18 Body Mass Index (BMI) 20.1 07/09/18 Blood Pressure 151/74 H 07/09/18 Blood Pressure Location Lt brachial 07/09/18 Blood Pressure Position Sitting 07/09/18 Respiratory Rate 18 07/09/18 Pulse Rate 66 Intake Visit Reasons: Hemorrhoids Chief Complaint: Follow up Sidewalk Inspector Required: No Is patient in pain?: No Allergies carisoprodol Allergy (Verified 07/09/18 15:46) Other itraconazole Allergy (Verified 07/09/18 15:46) Other Medications Omeprazole [Prilosec] 20 mg PO DAILY 10/07/15 [History Confirmed 07/09/18] Aspirin E.C. [Ecotrin] 81 mg PO DAILY 03/08/17 [History Confirmed 07/09/18] Naproxen 375 mg PO BID PRN 03/08/17 [History Confirmed 07/09/18] Vitamin E 400 unit PO DAILY 03/08/17 [History Confirmed 07/09/18] Acetaminophen [Tylenol Extra Strength] 500 mg PO BID 02/14/18 [History Confirmed 07/09/18] Atorvastatin Calcium [Lipitor] 20 mg PO QHS 02/14/18 [History Confirmed 07/09/18] Duloxetine HCl 30 mg PO DAILY 02/14/18 [History Confirmed 07/09/18] Ferrous Gluconate 324 mg PO DAILY 02/14/18 [History Confirmed 07/09/18] Furosemide [Lasix] 20 mg PO DAILY 02/14/18 [History Confirmed 07/09/18] Multivit-Min/FA/Lycopen/Lutein [Centrum Silver Men Tablet] 1 tab PO DAILY 02/14/18 [History Confirmed 07/09/18] Nitroglycerin 0.4 mg PO PRN PRN 02/14/18 [History Confirmed 07/09/18] clopidogrel 75 mg tablet 75 mg PO DAILY #90 tab 03/05/18 [Rx Confirmed 07/09/18] lisinopril 10 mg tablet 10 mg PO DAILY 05/04/18 [History Confirmed 07/09/18] metoprolol succinate ER 25 mg tablet,extended release 24 hr 12.5 mg PO QDAY #45 tab 05/31/18 [Rx Confirmed 07/09/18] [facility] Medical History Essential (primary) hypertension (Chronic) Palpitations (Chronic) 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) GERD (gastroesophageal reflux disease) (Chronic) Hyperlipidemia (Chronic) Obstructive sleep apnea (Chronic) Peripheral vascular disease (Chronic) Prostate cancer (Acute) Spondylolisthesis (Acute) DDD (degenerative disc disease) (Chronic) Lumbar radiculopathy (Chronic) Lumbar stenosis (Chronic) Peripheral neuropathy (Chronic) 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) Surgical History History of coronary artery stent placement (Chronic 10/07/15) Postsurgical percutaneous transluminal coronary angioplasty (PTCA) status (Chronic) History of back surgery (Resolved) History of hernia repair (Resolved) History of prostatectomy (Resolved) History of shoulder surgery (Resolved) History of tonsillectomy (Resolved) Family History Mother CVA (cerebral vascular accident) Sister Hypertension Social History Smoking Status: Never smoker alcohol intake: former details: 1 glass of red wine x3 days a week substance use type: does not use caffeine: No what type of physical activity do you participate in: none seatbelt use: always do you feel safe at home: Yes ROS General General: Yes fatigue; no weight change, appetite, colon cancer, breast cancer or weakness HEENT HEENT: Yes eye injury and eye surgery; no difficulty swallowing, swollen glands or hoarseness Endo Endocrine: No thyroid disease, diabetes mellitus, thyroid cancer, Hair loss, heat intolerance or cold intolerance Skin Skin: No rash or changing moles Breast Breast: No left breast lump, right breast lump, nipple discharge, breast pain, abnormal mammogram, abnormal US or breast enlargement Musc Musculoskeletal: Yes back problems and arthritis; no rheumatoid arthritis, gout or joint pain Cardio Cardiovascular: Yes heart disease, high blood pressure and heart stent; no murmur, pacemaker, atrial fibrillation, heart attack, palpitations, shortness of breat with exertion or chest pain Psych Psychiatric: Yes depression and anxiety; no hearing voices Resp Respiratory: Yes shortness of breath, Yes sleep apnea, No cough, No COPD, No asthma, No emphysema, No wheezing Gastro Gastrointestinal: Yes abdominal pain, No nausea or vomiting, Yes diarrhea, Yes constipation, Yes blood in stool, No acid reflux, Yes hemorrhoids, No ulcers, No gallbladder problem, No black,tarry stools Beau Hematologic: Yes blood thinners, No blood disorders, Yes bleeding, No anemia, Yes blood clots Neuro Neurologic: No system reviewed and no additional complaints, except as docu, No as per HPI, No abnormal walking, No abnormal hearing, No abnormal movements, No abnormal speech, No behavioral changes, No burning sensations, No confusion, No seizure-like activity, No unsteadiness, No dizziness, No localized weakness, No frequent falls, No headache(s), No lack of coordination, No loss of vision, No memory loss, Yes numbness, No other visual disturbances, No radiating pain, No restless legs, No sensory deficit, No fainting, Yes tingling, No tremor(s), No weakness, No other Exam Const General: cooperative, frail appearing Nutritional Appearance: underweight Orientation: alert, awake [facility] Head: normal to inspection Chest Breast Palpation: No nipple discharge Other: Marked scoliosis noted Resp Effort & Inspection: normal respiratory effort Auscultation: clear to auscultation bilaterally Cardio Rate: regular rate Rhythm: regular rhythm Heart Sounds: no murmurs GI Other: Scaphoid, no hepatosplenomegaly, nontender, well-healed oblique incision right groin, normal bowel sounds With requested Valsalva some prolapsing mucosa noted. Digital rectal exam suggests significant amount of exuberant soft tissue anteriorly. Difficult to characterize. Lax anal tone Skin Other: Wound dressings on lower extremity ulcerations. 2+ bilateral lower extremity pitting edema Neuro General: alert, awake Psych Affect: normal affect Assessment & Plan Problems 1. Rectal prolapse K62.3 Plan 82-year-old gentleman who appears every bit of age 82. It appears to be very frail with evidence of recent weight loss. He requires significant assistance getting down from the exam table moving over to his chair. Balance and strength issues are very much noted. I am suspicious that his complaints and descriptions are more consistent with rectal prolapse rather than hemorrhoidal disease. I do not believe however that he is well enough to tolerate a traditional procedure to treat rectal prolapse either with a rectopexy or sigmoid resection. It is not clear to me that a transanal approach with resection of tissue will offer him much relief. On digital exam there appears to be exuberant tissue anteriorly. I have proposed for him a diagnostic colonoscopy with possible biopsy or polypectomy is indicated. Need to exclude the possibility of a polyp or malignancy as a lead point. He is aware of the technique, benefit, risks, alternatives. It is of note that the patient is so muscular weak with lack of balance that he may not be able to accomplish this bowel prep at home. Both the patient and his concur that this would be extraordinarily difficult. The patient may require hospitalization in order to achieve a bowel prep and clearly this would be medically indicated. He is clearly at higher interventional risk for any type of treatment and he is aware. We will try to proceed with colonoscopy pending her ability to perform an in-hospital bowel prep. He is aware of technique, benefit, risks, alternatives. We will schedule and proceed as possible. CC: Dr. LELE Chapman M.D., F.A.C.S. Orders Orders: Basic Metabolic Profile (BMP) Today K62.3 CBC W/Diff, Automated Today K62.3 Coding Level of Care Code Comprehensive,moderate Diagnoses Rectal prolapse K62.3
[2018-07-30 11:50] VITALS: BP 159/79; PULSE 60; RESP 16; TEMP 37.1; O2SAT 100; BMI 20.3
[2018-07-30 11:52] VITALS: BMI 20.3
[2018-07-30] MEDS: Electrolyte Solution/Peg's 4000 ML PO (13:56)
[2018-07-30 16:35] VITALS: BP 173/85; PULSE 60; RESP 16; TEMP 36.4; O2SAT 100
--- NOTE | 2018-07-30 16:51 | NURSING ---
PHONED PT SPOUSE KYMBERLY ([phone])TO UPDATE ON TIME CHANGE OF 0815 FOR COLONOSCOPY 07/31/18.
[2018-07-30] MEDS: Lactated Ringers 1,000 ML 30 ML IV (21:12)
[2018-07-30 21:15] VITALS: BP 161/89; PULSE 79; RESP 18; TEMP 36.6; O2SAT 98
[2018-07-31] VITALS (8 sets, daily range): BP systolic 116–156; BP diastolic 57–89; PULSE 60–81; RESP 16–20; TEMP 36.4–36.7; O2SAT 95–100; BMI 20.3
--- NOTE | 2018-07-31 | COLBX_PTH ---
PATIENT: FEI OLEARY LOC: MS3 U#:[id number] AGE/SX: 82/M ROOM: MD320 RE07/30/[address]: Dr. Russ Chapman MD : [id number] BED: 1 DIS: 07/31/2018 SPEC #: [id number] RECD: 07/31/18 14:16 STATUS: BRENNA REMariano #: [id number] HIRAL: 07/31/18 00:[address]: Russ Chapman DEPT: SURGICAL PATHOLOGY RECD BY: Juan Luis Trotter ENTERED: 07/31/18 14:16 SP TYPE: COLON BX OTHR DR: Dr. Ryan Bran MD Tissues: COLON BIOPSY Procedures: Surgery Specimen Level IV HEADER OPERATION: Colonoscopy (MAC) PRE-OP DIAGNOSIS: Weight loss, screening, diarrhea TISSUE SUBMITTED: Random colon biopsies MICROSCOPIC DIAGNOSIS Colon, random biopsy: Fragments of colonic mucosa, no pathologic diagnosis. SJ:maia 08/01/18 MICROSCOPIC DESCRIPTION Slides are reviewed. GROSS DESCRIPTION Received in fixative is one container labeled with the patient's name and designated random colon biopsy. The specimen consists of multiple irregular fragments of light galvan soft tissue that in aggregate measure 2 x 0.5 x 0.1 cm. The specimen is totally submitted in one cassette. / SJ:rg 07/31/18 TC:4 CPT: 30698
[2018-07-31] MEDS: Magnesium Citrate 300 ML PO (00:46)
--- NOTE | 2018-07-31 05:00 | EKG12_ITS ---
Test Reason : PRE OP Blood Pressure : / mmHG Vent. Rate : 074 BPM Atrial Rate : 074 BPM P-R Int : 136 ms QRS Dur : 136 ms QT Int : 416 ms P-R-T Axes : 093 083 073 degrees QTc Int : 461 ms Sinus rhythm with marked sinus arrhythmia Right bundle branch block Abnormal ECG When compared with ECG of 14-FEB-2018 19:29, Sinus rhythm has replaced Atrial fibrillation T wave inversion more evident in Anterior leads QT has shortened Confirmed by CARMEN MONTES, CHARLY ([id number]), art editor FREDI BRAN ([id number]) on 08/02/2018 9:55:33 AM Referred By: Ryan Bran Confirmed By:CHARLY MORALES MD
--- NOTE | 2018-07-31 05:29 | PCM.PN.BLA ---
Progress Note Pt still not clear Will try enema and miralax May need to change order of scopes this mathieu
[2018-07-31] MEDS: Fleet Enema 1 ML RECTAL (05:41)
[2018-07-31 05:44] LABS: Hematocrit 34.7 % (40-54); Hemoglobin 11.2 g/dl (13.0-16.5); Mean Corp Hgb Conc 32.3 g/gl (32-36); Mean Corpuscular Hgb 31.4 pg (27.0-32.0); Mean Corpuscular Volume 97.2 fL (80-94); Platelet Count 291 K/mm3 (150-450); RBC Distribution Width CV 15.5 % (11.6-14.6); Red Blood Count 3.57 M/mm3 (4.6-6.2); White Blood Count 3.8 K/mm3 (4.4-11.0)
[2018-07-31 06:02] LABS: Prothrombin Time (Protime)PT. 13.4 SECONDS (11.7-14.9)
[2018-07-31 06:03] LABS: Partial Thromboplast Time 27.7 Seconds (24.1-36.2)
[2018-07-31 06:07] LABS: Anion Gap 8 (5-15); BUN 15 mg/dL (7-18); BUN/Creat Ratio 21.2 RATIO (10-20); Calcium,Total 8.7 mg/dL (8.5-10.1); Chloride 110 mmol/L (98-107); Creatinine, Serum 0.71 mg/dL (0.70-1.30); EST Glomerular Filtration Rate 113 mL/min (>60); Est Glom Filt Rate - Afr Amer 137 mL/min (>60); Estimated Creatinine Clearance 42.51 ml/min; Glucose 94 mg/dL (74-106); Potassium 3.2 mmol/L (3.5-5.1); Sodium Level 147 mmol/L (136-145)
[2018-07-31 06:29] LABS: Scan Indicated on CBC? Y/N NO
[2018-07-31 08:08] LABS: Hemoglobin A1c 5.9 % (4.2-6.3)
--- NOTE | 2018-07-31 09:13 | NURSING ---
Report called to Cheryle ROBLES.
--- NOTE | 2018-07-31 09:54 | OP.ENDO_ITS ---
07/31/2018 Ryan Bran [address] [place] [address] Re : Colonoscopy procedure for Joaquin Chandler Dear Dr. Bran This procedure was performed on Tuesday, July 31, 2018. My impressions and recommendations are as follows: Impressions : - Abnormal digital rectal exam. - Diverticulosis in the entire examined colon. Biopsied. Recommendations : - Discharge patient to home. - Resume previous diet. - Continue present medications. - Repeat colonoscopy in 10 years for screening purposes. - Telephone my office for pathology results in 1 week. My findings are described in the full procedure note, which is enclosed. If I can be of further assistance, please feel free to contact me at Doctor phone number(s): Work: . Sincerely, Russ Chapman MD 07/31/2018 9:54:35 AM This report has been signed electronically.
--- NOTE | 2018-07-31 09:57 | DCINST_ITS ---
Addendum entered and electronically signed by Christina Polk PA-C 07/31/18 11:09: You have what is called a rectal prolapse. This will more than likely come out of the anus each time you use the bathroom especially a bowel movement. This may cause a little bleeding every now and again. In order to place the rectum back into the body: 1. Use a damp wash cloth 2. Place wash cloth over top of the rectum 3. Gently push the rectum back into the anus until you do not see any more of the rectum 4. Wipe around the anus with damp wash cloth to clean any residual stool off 5. Repeat as needed Original Note: Discharge Diet: Light diet - advance as tolerated - if you have questions about your diet instructions, please talk to you doctor. Additional Instructions: Please follow the instructions provided by the endoscopy procedure. You will be notified by phone of the random colonic biopsy results Allergies/Adverse Reactions: Allergies carisoprodol Allergy (Verified 07/09/18 15:46) Other itraconazole Allergy (Verified 07/09/18 15:46) Other Medications to take at Discharge Omeprazole [Prilosec] 20 mg PO DAILY 10/07/15 Aspirin E.C. [Ecotrin] 81 mg PO DAILY 03/08/17 Naproxen 375 mg PO BID PRN 03/08/17 Vitamin E 400 unit PO DAILY 03/08/17 Acetaminophen [Tylenol Extra Strength] 1,000 mg PO BID 02/14/18 Atorvastatin Calcium [Lipitor] 20 mg PO QHS 02/14/18 Duloxetine HCl 60 mg PO DAILY 02/14/18 Ferrous Gluconate 324 mg PO DAILY 02/14/18 Furosemide [Lasix] 20 mg PO DAILY 02/14/18 Multivit-Min/FA/Lycopen/Lutein [Centrum Silver Men Tablet] 1 tab PO DAILY 02/14/18 Nitroglycerin 0.4 mg PO PRN PRN 02/14/18 clopidogrel 75 mg tablet 75 mg PO DAILY #90 tab 03/05/18 lisinopril 10 mg tablet 10 mg PO DAILY 05/04/18 Docusate Sodium [Colace] 200 mg PO DAILY 07/30/18 Metoprolol Succinate [Toprol Xl] 12.5 mg PO QHS 07/30/18 Primary Care Physician: Ryan Bran MD [Primary Care Provider] - Test Results: Test results from this visit will be discussed in further detail at your follow- up appointment, if applicable.
--- NOTE | 2018-07-31 11:01 | CASEMGMT ---
RN CM Assessment Presentation: Colonoscopy. DC planned today Intro role of CM and purpose of RN CM assessment. Demographics, PCP and Pharmacy verified. PCP: Dr. Ryan Bran Specialists: Dr. Chapman [facility] Insurance: [facility] Prescription Benefit: yes LNOK: , Kassandra Living Arrangements: Lives in one story home with basement. Pt states he does go to basement carefully. Handrails are on both sides. States he ambulates with cane or rollator. Pt and are both having increasing difficulty with ADL. states they have appointment tomorrow with Trinity from [facility] Home Health Private duty to hire aides. will also speak with PCP to discuss hospital bed vs buying commercial bed for home to allow head of bed to raise. Transportation: drives. Family member is here with couple today. DME: rollator, cane, grab bars, hand rails, CPAP HHC: none skilled, [facility], [facility] private duty appt for tomorrow. Patient DC goals: Home DC PLAN: Home on dc. Carlos Eduardo MORENO RN ACM
--- NOTE | 2018-07-31 13:21 | NURSING ---
Was consulted by nursing to see patient for dry/flaky skin to the right heel and leg. there is a small patch of dry skin noted. some slightly thickened skin noted to the right plantar heel. this skin easily peeled off. pt states slightly tender. applied aloe vesta to bilateral feet and legs. there is no need for wound care. patient can apply moisturizer as needed. no open area or calloused areas noted.
== END 2018-07-31 13:52 | disposition home or self-care (01) ==
LOC: MS3 10:50
PROVIDERS: Anesthesiology; Admitting Provider Surgery; Family Provider Family Medicine; PCP Family Medicine; Referring Provider Family Medicine; Visit Provider Surgery
PROC: 0DJD8ZZ Inspection of Lower Intestinal Tract, Via Natural or Artificial Opening Endoscopic (ICD-10-PCS; CPT 45378; principal; 2018-07-31 09:10)
DX: K62.3 Rectal prolapse (principal); K57.30 Diverticulosis of large intestine without perforation or abscess without bleeding; I25.10 Atherosclerotic heart disease of native coronary artery without angina pectoris; K21.9 Gastro-esophageal reflux disease without esophagitis; R19.5 Other fecal abnormalities; R62.7 Adult failure to thrive; E78.5 Hyperlipidemia, unspecified; F41.9 Anxiety disorder, unspecified; F32.9 Major depressive disorder, single episode, unspecified; I10 Essential (primary) hypertension; I45.10 Unspecified right bundle-branch block; I73.9 Peripheral vascular disease, unspecified; G47.33 Obstructive sleep apnea (adult) (pediatric); R94.31 Abnormal electrocardiogram [ECG] [EKG]; L97.929 Non-pressure chronic ulcer of unspecified part of left lower leg with unspecified severity; L97.919 Non-pressure chronic ulcer of unspecified part of right lower leg with unspecified severity; M41.9 Scoliosis, unspecified; R60.9 Edema, unspecified; G47.30 Sleep apnea, unspecified; R06.02 Shortness of breath; Z85.46 Personal history of malignant neoplasm of prostate; Z79.899 Other long term (current) drug therapy; Z79.82 Long term (current) use of aspirin; Z79.02 Long term (current) use of antithrombotics/antiplatelets; Z95.5 Presence of coronary angioplasty implant and graft
CPT/HCPCS: 45380; 36415; 80048; 83036; 85027; 85610; 85730; 88305; 93005; 99218; J7120; G0378; G0379; J2405

== ENCOUNTER → 2018-08-27 13:03 | Outpatient (CLI) | payer MEDICARE, OTHER, SELFPAY ==
[2018-07-31 03:39] VITALS: BMI 20.3
--- NOTE | 2018-08-27 13:14 | ADUL_ITS ---
Reason For Study: ATHEROSCLEROSIS Right Velocities Ext. Iliac Artery, dist = 125.2 cm./sec. Common Femoral Artery, mid = 103.3 cm./sec. Supf Femoral Artery, prox = 136.3 cm./sec. Supf Femoral Artery, mid = 72.7 cm./sec. Supf Femoral Artery, dist. = 253.5 cm./sec. Profunda Femoral Artery = 201.1 cm./sec. Popliteal Artery, prox. = 69.2 cm./sec. Popliteal Artery, mid = 100.2 cm./sec. Popliteal Artery, dist = 78.3 cm./sec. Ant. Tibial Artery, prox = 105.6 cm./sec. Ant. Tibial Artery, mid = 47.3 cm./sec. Ant. Tibial Artery, dist = 60.0 cm./sec. Post. Tibial Artery, prox = 109.3 cm./sec. Post. Tibial Artery, mid = 80.0 cm./sec. Post. Tibial Artery, dist = 8.5 cm./sec. Peroneal Artery, prox = 58.4 cm./sec. Peroneal Artery, mid = 58.4 cm./sec. Peroneal Artery,dist = 118.5 cm./sec. Procedure Exam performed in department. Interpretation Summary 1. Moderate stenosis right SFA. Triphasic flow through popliteal and more biphasic flow through tibials. Ordering Physician: Nate Rose Referring Physician: RADHA GILL Performed By: Rosalee Mohamud RDCS, RVT
--- NOTE | 2018-08-27 13:16 | ART_ITS ---
Reason For Study: atherosclerosis Procedure A bilateral lower extremity continuous wave Doppler with analog waveform analysis and ankle brachial indexes. Left Segmental Pressures Left posterior tibial artery = 110mmHg. Left dorsalis pedis artery = 137mmHg. Left brachial= 183mmHg. Right Segmental Pressures Right brachial= 177mmHg. Right posterior tibial artery = 103mmHg. Right dorsalis pedis artery = 82mmHg. Indices The right ankle brachial index by the dorsalis pedis is .75. The right ankle brachial index by the posterior tibial artery is .6. The left ankle brachial index by the dorsalis pedis is .45. The left ankle brachial index by the posterior tibial artery is .56. Interpretation Summary 1. 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 Left moderate occlussive dsease with RALPH 0.56. Ordering Physician: Nate Rose Referring Physician: ernestine montes Performed By: Rosalee Mohamud RDCS, RVT
== END ==
PROVIDERS: Family Provider Family Medicine; PCP Family Medicine; Referring Provider Surgery Vascular Surgery; Visit Provider Surgery Vascular Surgery
DX: I70.213 Atherosclerosis of native arteries of extremities with intermittent claudication, bilateral legs (principal)
CPT/HCPCS: 93922; 93926

== ENCOUNTER 2018-09-26 04:05 | Emergency (ER) | payer MEDICARE, OTHER, SELFPAY ==
[2018-07-31 03:39] VITALS: BMI 20.3
[2018-09-26 04:05] VITALS: BP 168/111; PULSE 87; RESP 18; TEMP 36.3; O2SAT 99
[2018-09-26 04:24] VITALS: BP 166/111; PULSE 79; RESP 16; O2SAT 100
--- NOTE | 2018-09-26 05:09 | ED.DCSUM_ITS ---
- ER Visit Summary Date of Service: 09/26/18 Chief Complaint: Left leg bleeding History of Present Illness: The patient is a 83 M who states he fell proximate 2 weeks ago and had abrasions noted to his left moser. About 3 AM this morning he was making his bed and hit his left moser on either the bed or his walker. Noted increased bleeding to the left moser that he could not get controlled and called EMS. Patient does take Plavix. Physical Examination: Blood pressure is 166/111, otherwise vitals unremarkable. Patient sitting upright in bed no acute distress. He is alert and talkative. Left lower extremity examination reveals irregular skin avulsion over the left anterior moser with minimal bleeding at this time. Total length is 3 cm. No bony tenderness is noted. Test Results: [] Emergency Department Course and Treatment: Wound is cleansed. Surgifoam and dressing applied. Wound is checked twice, every 15 minutes with no further bleeding noted. On final repeat evaluation patient asked about a lump sensation he feels in the soft palate of his mouth. He states that this happened before. On examination his uvula is swollen. Airway is not compromised. Patient is given a dose of prednisone will be given a prescription for the same. Treatment Plan: [] Disposition: Discharge Impression: Left moser skin avulsion Uvulitis This note was generated with [employer] dictation software. It may contain incorrect words, spelling, and punctuation that were not noted in review of the chart prior to signing ED Disposition - Plan for ED Patient: Disposition: Home or Assisted Living Instructions: ED Avulsion Dermal, ED Uvulitis Prescriptions: Prednisone [Deltasone] 40 mg PO DAILY #8 tablet Referrals: Ryan Bran MD [Primary Care Provider] - As Needed
[2018-09-26] MEDS: predniSONE 20 MG Tablet 40 MG PO (05:28)
[2018-09-26 06:30] VITALS: BP 159/100; PULSE 80; RESP 16; O2SAT 100
== END 2018-09-26 06:31 | disposition home or self-care (01) ==
PROVIDERS: Emergency Provider Emergency Medicine; Family Provider Family Medicine; PCP Family Medicine
DX: K12.2 Cellulitis and abscess of mouth (principal); S81.802A Unspecified open wound, left lower leg, initial encounter; W19.XXXA Unspecified fall, initial encounter; Y93.9 Activity, unspecified; Y92.89 Other specified places as the place of occurrence of the external cause; Y99.8 Other external cause status; I10 Essential (primary) hypertension; E78.00 Pure hypercholesterolemia, unspecified; K21.9 Gastro-esophageal reflux disease without esophagitis; Z85.46 Personal history of malignant neoplasm of prostate; Z79.02 Long term (current) use of antithrombotics/antiplatelets
CPT/HCPCS: 99284

== ENCOUNTER 2018-10-29 17:11 | Emergency (ER) | payer MEDICARE, OTHER, SELFPAY ==
[2018-10-04 13:26] VITALS: BMI 20.5
[2018-10-29 17:12] VITALS: BP 129/72; PULSE 58; RESP 18; TEMP 36.5; O2SAT 100; BMI 21.8
--- NOTE | 2018-10-29 17:31 | ED.DCSUM_ITS ---
History of Present Illness Chief Complaint: GI Bleed Informant: Patient Onset: - - 3 to 4 days Current Severity: Moderate Maximum Severity: Moderate Narrative: Patient presents with a 3 to 4-day history of bright red rectal bleeding. He states that he has had blood saturate through his close. He states when he goes the bathroom he will often sit on the commode for up to an hour and a half because he is dripping blood. He had hemorrhoid surgery on October [address] Perez at [facility]. Patient reportedly has been in contact with him and was asked to come to the emergency room at [place] to be evaluated. Local EMS could not transport him out of town so brought him here to be evaluated. Patient states he was back on his aspirin and Plavix after surgery. Last doses of each were yesterday. He denies significant pain. He denies feeling lightheaded or near syncope. - Past Medical History (1) Essential (primary) hypertension Status: Chronic (2) Hyperlipidemia Status: Chronic (3) Peripheral arterial occlusive disease Status: Chronic Comment: SFA PTCA/Stent 08/2012; angioplasty and stenting- RSFA @ [facility] per Dr. Zapata; Stent to distal RSFA to popliteal, Stent-Prox RSFA 10/23/13 (4) History of coronary artery stent placement Status: Resolved Comment: PCI-Stent to mid RCA 08/06/04; cutting balloon angioplasty with TAMERA to mid RCA 02/19; SVW-Vemwm-XTY-of RCA 06/18/09; PCI/TAMERA to Ostial PDA and PCI-ISR RCA 09/03/13; PCi/TAMERA ISR of mid RCA 10/07/15; FFR mid LAD 10/08/15 Past Medical History - Allergies and Home Meds Allergies/Adverse Reactions: Allergies carisoprodol Allergy (Verified 10/29/18 17:15) Other itraconazole Allergy (Verified 10/29/18 17:15) Other Primary Care Physician: Ryan Bran MD [Primary Care Provider] - Prior records reviewed: Yes Past Medical History: - - Reviewed Surgical History: - - The patient is undergone lumbar surgery in the past. He has a history of bilateral shoulder surgery. He has had coronary stents placed, and to proceed stenting was performed in the right lower extremity., rotator cuff repair, tonsillectomy, - Lives: Spouse/ Significant Other Smoking Status: Never smoker Review of Systems General: Denies: Chills, Fever Cardiovascular: Denies: Chest pain, Palpitations Respiratory: Denies: Dyspnea Gastrointestinal: Reports: Hematochezia. Denies: Abdominal pain, Nausea, Vomiting Physical Exam Vital Signs/Narrative: Vital Signs Temp Pulse Resp BP Pulse Ox 10/29/18 17:12 97.7 F L 58 L 18 129/72 H 100 General: Well nourished, Well developed ENT: Moist mucous membranes Cardiovascular: Regular rate, Regular rhythm Respiratory: No distress, CTA bilaterally Abdomen: Soft, Nontender Rectal: - - On rectal examination patient has a pad in his depends that is saturated with bright red blood. Once he is cleansed there is no active oozing blood noted at this time. A piece of Surgifoam is rolled in to a tube shape and placed in the rectum. Skin: - - Slight pallor Neurological: Alert, Oriented x3 Diagnostic/Tx/Re-eval Laboratory Tests 10/29/18 10/29/18 10/29/18 Range/Units 17:16 17:16 17:16 WBC 4.9 (4.4-11.0) K/mm3 RBC 2.85 L (4.6-6.2) M/mm3 Hgb 9.3 L (13.0-16.5) g/dl Hct 28.5 L (40-54) % MCV 100.0 H (80-94) fL MCH 32.6 H (27.0-32.0) pg MCHC 32.6 (32-36) g/gl RDW 14.7 H (11.6-14.6) % RDW Differential 53.5 H (35.1-43.9) fl Plt Count 342 (150-450) K/mm3 MPV 8.7 (6.2-12.0) fl Immature Gran % (Auto) 0.200 (0.0-0.9) % Neut % (Auto) 69.9 (47-70) % Lymph % (Auto) 13.3 L (19-41) % [place] % (Auto) 15.0 H (0-10) % Eos % (Auto) 1.4 (0-5) % Baso % (Auto) 0.2 (0-1) % Absolute Neuts (auto) 3.4 (2.0-7.7) X10^3/uL Absolute Lymphs (auto) 0.65 L (0.83-4.51) X10^3/ul PT 12.7 (11.7-14.9) SECONDS INR 1.0 APTT 28.6 (24.1-36.2) Seconds Sodium 141 (136-145) mmol/L Potassium 3.8 (3.5-5.1) mmol/L Chloride 106 (98-107) mmol/L Carbon Dioxide 32.0 (21.0-32.0) mmol/L Anion Gap 3 L (5-15) BUN 26 H (7-18) mg/dL Creatinine 0.93 (0.70-1.30) mg/dL Estim Creat Clear Calc 48.17 ml/min Est GFR (MDRD) Af Amer 100 (>60) mL/min Est GFR (MDRD) Non-Af 83 (>60) mL/min BUN/Creatinine Ratio 28.0 H (10-20) RATIO Glucose 99 (74-106) mg/dL Calcium 8.9 (8.5-10.1) mg/dL - Medical Decision Making Patient's vital signs are stable throughout his ED stay. Hemoglobin is currently 9.3 with my last available comparison from July 31 of .2. Patient states that his surgeon wanted him to be seen at [facility]. I will contact the transfer center. ED Disposition - Plan for ED Patient: Disposition: [facility] Diagnosis: GI bleed Referrals: Ryan Bran MD [Primary Care Provider] -
[2018-10-29] MEDS: 0.9% Normal Saline 1,000 ML 150 ML IV (17:39)
[2018-10-29 17:58] LABS: Absolute Lymphocyte Count 0.65 X10^3/ul (0.83-4.51); Absolute Neutrophil Count 3.4 X10^3/uL (2.0-7.7); Basophil# 0.01 X10^3/uL; Basophil% 0.2 % (0-1); Eosinophil# 0.07 X10^3/uL; Eosinophils% 1.4 % (0-5); Hematocrit 28.5 % (40-54); Hemoglobin 9.3 g/dl (13.0-16.5); Lymphocyte # 0.65 X10^3/ul (4.0); Lymphocyte % 13.3 % (19-41); Mean Corp Hgb Conc 32.6 g/gl (32-36); Mean Corpuscular Hgb 32.6 pg (27.0-32.0); Mean Platelet Vol. 8.7 fl (6.2-12.0); Monocyte# 0.73 X10^3/uL; Neutrophil # 3.41 X10^3/uL (2.7-7.7); Neutrophil % 69.9 % (47-70); Platelet Count 342 K/mm3 (150-450); RBC Distribution Width CV 14.7 % (11.6-14.6); RBC Distribution Width SD 53.5 fl (35.1-43.9); Red Blood Count 2.85 M/mm3 (4.6-6.2); White Blood Count 4.9 K/mm3 (4.4-11.0)
[2018-10-29 18:00] LABS: Prothrombin Time (Protime)PT. 12.7 SECONDS (11.7-14.9)
[2018-10-29 18:01] LABS: POSITIVE COUNT NO; POSITIVE DIFFERENTIAL NO; POSITIVE MORPHOLOGY NO; Partial Thromboplast Time 28.6 Seconds (24.1-36.2)
[2018-10-29 18:02] LABS: Anion Gap 3 (5-15); BUN 26 mg/dL (7-18); Calcium,Total 8.9 mg/dL (8.5-10.1); Chloride 106 mmol/L (98-107); Creatinine, Serum 0.93 mg/dL (0.70-1.30); EST Glomerular Filtration Rate 83 mL/min (>60); Est Glom Filt Rate - Afr Amer 100 mL/min (>60); Estimated Creatinine Clearance 48.17 ml/min; Glucose 99 mg/dL (74-106); Potassium 3.8 mmol/L (3.5-5.1); Sodium Level 141 mmol/L (136-145)
[2018-10-29 19:12] VITALS: BP 146/70; PULSE 70; RESP 16; O2SAT 99
[2018-10-29 19:59] VITALS: BP 146/70; PULSE 69; RESP 19; TEMP 36.5; O2SAT 100
--- NOTE | 2018-10-29 20:26 | ED.RN ---
GAVE HANDOFF REPORT TO [facility] EMS TEAM @2025. THEY HAD NO FURTHER NEEDS AT THIS TIME.
--- NOTE | 2018-10-29 20:26 | ED.RN ---
REPORT WAS CALLED TO [facility] TO LARISA ROBLES
== END 2018-10-29 20:27 | disposition short-term general hospital (02) ==
PROVIDERS: Emergency Provider Emergency Medicine; Family Provider Family Medicine; PCP Family Medicine
DX: K92.2 Gastrointestinal hemorrhage, unspecified (principal); I10 Essential (primary) hypertension; E78.5 Hyperlipidemia, unspecified; I73.9 Peripheral vascular disease, unspecified; Z95.5 Presence of coronary angioplasty implant and graft; Z79.82 Long term (current) use of aspirin; Z79.02 Long term (current) use of antithrombotics/antiplatelets; Z79.899 Other long term (current) drug therapy
CPT/HCPCS: 80048; 85025; 85610; 85730; 86850; 86900; 96360; 99285; J7030; A4216

== ENCOUNTER → 2018-11-26 16:20 | Outpatient (CLI) | payer MEDICARE, OTHER, SELFPAY ==
[2018-10-29 17:12] VITALS: BMI 21.8
[2018-11-26 18:25] LABS: Absolute Lymphocyte Count 0.65 X10^3/uL (0.83-4.51); Absolute Neutrophil Count 3.5 X10^3/uL (2.0-7.7); Basophil# 0.03 X10^3/uL; Basophil% 0.6 % (0-1); Eosinophil# 0.09 X10^3/uL; Eosinophils% 1.8 % (0-5); Hematocrit 32.9 % (40-54); Hemoglobin 10.4 g/dL (13.0-16.5); Lymphocyte # 0.65 X10^3/ul (4.0); Lymphocyte % 13.2 % (19-41); Mean Corp Hgb Conc 31.6 g/dL (32-36); Mean Corpuscular Volume 101.2 fL (80-94); Mean Platelet Vol. 9.3 fl (6.2-12.0); Monocyte# 0.68 X10^3/uL; Monocyte% 13.8 % (0-10); NRBC Flagged by Analyzer 0 % (0-5); Neutrophil # 3.46 X10^3/uL (2.7-7.7); Neutrophil % 70.2 % (47-70); Platelet Count 310 K/mm3 (150-450); RBC Distribution Width CV 14.7 % (11.6-14.6); RBC Distribution Width SD 55.2 fl (35.1-43.9); Red Blood Count 3.25 M/mm3 (4.6-6.2); White Blood Count 4.9 K/mm3 (4.4-11.0)
== END ==
PROVIDERS: Family Provider Family Medicine; PCP Family Medicine; Visit Provider Family Medicine
DX: D62 Acute posthemorrhagic anemia (principal)
CPT/HCPCS: 36415; 85025

== ENCOUNTER → 2018-12-31 16:25 | Outpatient (CLI) | payer MEDICARE, OTHER, SELFPAY ==
[2018-12-31 17:36] LABS: Absolute Lymphocyte Count 0.77 X10^3/uL (0.83-4.51); Basophil# 0.01 X10^3/uL; Basophil% 0.2 % (0-1); Eosinophil# 0.08 X10^3/uL; Eosinophils% 1.8 % (0-5); Hematocrit 35.1 % (40-54); Hemoglobin 11.1 g/dL (13.0-16.5); Lymphocyte # 0.77 X10^3/ul (4.0); Lymphocyte % 17.6 % (19-41); Mean Corp Hgb Conc 31.6 g/dL (32-36); Mean Corpuscular Hgb 31.8 pg (27.0-32.0); Mean Corpuscular Volume 100.6 fL (80-94); Mean Platelet Vol. 9.1 fl (6.2-12.0); Monocyte# 0.52 X10^3/uL; Monocyte% 11.9 % (0-10); NRBC Flagged by Analyzer 0 % (0-5); Neutrophil # 2.98 X10^3/uL (2.7-7.7); Neutrophil % 68.3 % (47-70); Platelet Count 321 K/mm3 (150-450); RBC Distribution Width CV 14.4 % (11.6-14.6); RBC Distribution Width SD 53.3 fl (35.1-43.9); Red Blood Count 3.49 M/mm3 (4.6-6.2); White Blood Count 4.4 K/mm3 (4.4-11.0)
[2018-12-31 17:48] LABS: Anion Gap 7 (5-15); BUN 23 mg/dL (7-18); BUN/Creat Ratio 28.9 RATIO (10-20); Chloride 104 mmol/L (98-107); EST Glomerular Filtration Rate 99 mL/min (>60); Est Glom Filt Rate - Afr Amer 119 mL/min (>60); Glucose 90 mg/dL (74-106); Magnesium 2.3 mg/dL (1.6-2.6); Potassium 3.9 mmol/L (3.5-5.1); Sodium Level 143 mmol/L (136-145)
== END ==
PROVIDERS: Family Provider Family Medicine; PCP Family Medicine; Visit Provider Family Medicine
DX: R25.2 Cramp and spasm (principal); D62 Acute posthemorrhagic anemia
CPT/HCPCS: 36415; 80048; 83735; 85025

== ENCOUNTER 2019-02-14 15:31 | Outpatient (RCR) | payer MEDICARE, OTHER, SELFPAY ==
[2019-01-17 15:13] VITALS: BMI 20.2
[2019-02-14 15:47] VITALS: BP 144/87; PULSE 71; RESP 16; TEMP 35.8; BMI 20.2
--- NOTE | 2019-02-14 16:53 | PCM.WC.HP ---
(1) Ulcer of right lower extremity with fat layer exposed Status: Acute Code(s): L97.912 - Non-pressure chronic ulcer of unspecified part of right lower leg with fat layer exposed (2) Ulcer of right heel Status: Acute Code(s): L97.419 - Non-pressure chronic ulcer of right heel and midfoot with unspecified severity (3) Peripheral neuropathy Status: Acute Code(s): G62.9 - Polyneuropathy, unspecified (4) Atherosclerotic heart disease of [place] coronary artery without angina pectoris Status: Chronic Qualifiers: Code(s): I25.10 - Atherosclerotic heart disease of [place] coronary artery without angina pectoris Comment: SFA PTCA/Stent 08/2012; angioplasty and stenting- RSFA @ [facility] per Dr. Zapata; Stent to distal RSFA to popliteal, Stent-Prox RSFA 10/23/13 (5) Essential (primary) hypertension Status: Chronic Code(s): I10 - Essential (primary) hypertension (6) Hyperlipidemia Status: Chronic Qualifiers: Code(s): E78.5 - Hyperlipidemia, unspecified (7) Palpitations Status: Chronic Code(s): R00.2 - Palpitations (8) Peripheral arterial occlusive disease Status: Chronic Code(s): I77.9 - Disorder of arteries and arterioles, unspecified Comment: SFA PTCA/Stent 08/2012; angioplasty and stenting- RSFA @ [facility] per Dr. Zapata; Stent to distal RSFA to popliteal, Stent-Prox RSFA 10/23/13 (9) Chronic pain of right heel Status: Chronic Code(s): M79.671 - Pain in right foot; G89.29 - Other chronic pain History of Present Illness Date of Service: 02/14/19 Chief Complaint: Chronic right heel ulceration, right posterior lower leg ulcer History of Wound: Joaquin is an 83-year-old male who presents to the clinic today with complaints of a right posterior lower extremity ulcer, as well as ulceration of the right heel. He has a past medical history significant for CAD, PVD, peripheral neuropathy, and arthritis. He has a history of angioplasty and stent placement in his right superficial femoral artery and right popliteal artery. He continues to see Dr. Rose for vascular management. He reports his right posterior lower extremity ulcer onset 2 to 3 months ago, possibly after bumping into an object in his home. He has not been using any topical or [id number] treatment for his right posterior lower extremity ulceration. He reports moderate drainage from the ulcer that is thin and light yellow in color. He denies any purulent drainage, increasing pain, redness, swelling, foul odor, or other signs of infection from the right posterior lower extremity ulcer. Patient also reports burning painful ulcerations of his right heel, which have been present for the past year. He was previously seen at the wound center for management of these ulcers. In the past, his cultures were positive for yeast, and he was treated with antifungal/steroid topical treatment which provided some improvement. He also had previously improved with use of orthotics, but reports that he is unable to tolerate these at this time. He was previously on gabapentin, for management of his chronic peripheral neuropathy. However his primary care provider has since discontinued his gabapentin and he has reported worsening pain in the heel since discontinuation. He rates his pain 8 out of 10 and reports pain is intermittent and occurs with pressure/weightbearing. He is ambulatory with a cane. He denies any drainage from his ulcerations of his right heel. He denies any swelling or signs or symptoms of infection. Denies any nausea, vomiting, diarrhea. He denies any fever or chills. He does state that both himself and his will have difficulties caring for the wounds and will require nursing care for assistance. Past Medical History Past Medical History: Chronic Problems (Last Reviewed 01/17/19 @ 15:37 by ALONA Chase) Chronic pain of right heel (Chronic) Diastolic dysfunction (Chronic) Hyperlipidemia (Chronic) Palpitations (Chronic) Syncope (Chronic 02/2018) Peripheral arterial occlusive disease (Chronic) SFA PTCA/Stent 08/2012; angioplasty and stenting- RSFA @ [facility] per Dr. Zapata; Stent to distal RSFA to popliteal, Stent-Prox RSFA 10/23/13 Essential (primary) hypertension (Chronic) Atherosclerotic heart disease of [place] coronary artery without angina pectoris (Chronic) SFA PTCA/Stent 08/2012; angioplasty and stenting- RSFA @ [facility] per Dr. Zapata; Stent to distal RSFA to popliteal, Stent-Prox RSFA 10/23/13 Surgical History: - - The patient is undergone lumbar surgery in the past. He has a history of bilateral shoulder surgery. He has had coronary stents placed, and to proceed stenting was performed in the right lower extremity., rotator cuff repair, tonsillectomy, - Allergies/Adverse Reactions: Allergies carisoprodol Allergy (Verified 01/17/19 15:13) Other itraconazole Allergy (Verified 01/17/19 15:13) Other Home Medications: Ambulatory Orders Medication Instructions Recorded Omeprazole [Prilosec] 20 mg PO DAILY 10/07/15 Aspirin E.C. [Ecotrin] 81 mg PO QHS 03/08/17 Ferrous Gluconate 324 mg PO DAILY 02/14/18 Multivit-Min/FA/Lycopen/Lutein 1 tab PO DAILY 02/14/18 [Centrum Silver Men Tablet] Nitroglycerin 0.4 mg PO PRN PRN 02/14/18 Metoprolol Succinate [Toprol Xl] 12.5 mg PO QHS 07/30/18 lisinopril 20 mg tablet 20 mg PO DAILY #90 tab 10/04/18 Acetaminophen [Tylenol Extra 1,000 mg PO BID 10/29/18 Strength] Duloxetine HCl 60 mg PO DAILY 10/29/18 Vitamin E 400 unit PO DAILY 10/29/18 atorvastatin 20 mg tablet 20 mg PO QHS #90 tab 11/28/18 Nitroglycerin 0.4 mg SL X1 02/14/19 Smoking Status: Former smoker Review of Systems Constitutional: Denies: Chills, Fever, Weight Change Eyes: Denies: Pain, Vision Change HEENT: Denies: Difficulty Hearing, Difficulty Swallowing, Sinus Congestion Cardiovascular: Denies: Chest Pain, Palpitations Respiratory: Denies: Cough, Shortness of Breath Gastrointestinal: Denies: Diarrhea, Nausea, Vomiting Genitourinary: Denies: Dysuria, Hematuria Skin: Reports: Wounds - See HPI Endocrine: Denies: Heat/ Cold Intolerance, Polydipsia, Polyuria Hematologic/ Lymphatic: Denies: Easy Bruising, Easy Bleeding - Physical Exam Vital Signs Temp Pulse Resp BP 96.4 F L 71 16 144/87 H 02/14/19 15:47 02/14/19 15:47 02/14/19 15:47 02/14/19 15:47 General: Alert, Oriented x3, Cooperative, No apparent distress HEENT: PERRLA, EOMI Oral: Moist Mucosa Neck: Supple Lungs: Clear to auscultation, Normal air movement Cardiovascular: Regular rate, Regular Rhythm Abdomen: Bowel Sounds Present, Soft, Non Tender Extremities: No clubbing, No cyanosis, No edema, Capillary Refill Less than 3 Seconds, Peripheral Pulses Normal Skin: Ulcer/ Wound - See nursing documentation. No surrounding redness, pustular drainage, warmth, or other signs of infection. Wound Measurements and Assessment WC - Nurse 1 - General Ulcer Measurement Start: 02/14/19 15:47 Freq: Status: Active Protocol: Activity Type Activity Date Activity User E-Sign Co-Sign Detail Recorded Client Recorded Date Recorded By Document 02/14/19 15:47 MW [id number] 02/14/19 16:06 MW 02/14/19 15:47 Wound Center Nurse 1 [Ulcer Assessment] #8 Right posterior LE -Combined with other wound No -Current Size (cm) - Length 1.6 -Current Size (cm) - Width 0.3 -Current Size (cm) - Depth 0.1 -Total Square Cm 0.48 -Date of Last Picture (Recall this 02/14/19 field) -Photo Taken Yes -Epithelialization None Present -Tunneling No -Undermining/Tunneling No -Circular Undermining No -Exudate Amt Small -Exudate Type Sanguineous -Wound Margin Flat & Intact -Granulation Amt Medium (34-66%) -Granulation Quality Red -Slough/Fibrin Yes -Necrosis Amt Small (1-33%) -Necrotic Tissue Type Adherent Slough -Structure Exposed N/A -Texture (Michelle-wound Skin Appearance) No Abnormality, Assessed -Moisture (Michelle-wound Skin Appearance Assessed ) -Color (Michelle-wound Skin Appearance) No Abnormality, Assessed -Temperature (Michelle-wound Skin No Abnormality Appearance) (Pt Warm) -Tenderness on Palpation (Michelle-wound No Skin Appearance) -Ulcer Cleansing Rinsed/ Irrigated with Saline -Foul Odor after Cleansing No -Anesthetic Used 5% Lidocaine Gel #7 Right heel -Combined with other wound No -Current Size (cm) - Length 0.1 -Current Size (cm) - Width 0.1 -Current Size (cm) - Depth 0.1 -Total Square Cm 0.01 -Date of Last Picture (Recall this 02/14/19 field) -Photo Taken Yes -Epithelialization None Present -Tunneling No -Undermining/Tunneling No -Circular Undermining No -Exudate Amt None Present -Wound Margin Flat & Intact -Granulation Amt None Present (0 %) -Granulation Quality N/A -Slough/Fibrin Yes -Necrosis Amt Large (67-100%) -Necrotic Tissue Type Adherent Slough -Structure Exposed N/A -Texture (Michelle-wound Skin Appearance) Assessed,Callus -Moisture (Michelle-wound Skin Appearance No Abnormality, ) Assessed -Color (Michelle-wound Skin Appearance) No Abnormality, Assessed -Temperature (Michelle-wound Skin No Abnormality Appearance) (Pt Warm) -Tenderness on Palpation (Michelle-wound No Skin Appearance) -Ulcer Cleansing Rinsed/ Irrigated with Saline -Foul Odor after Cleansing No -Anesthetic Used 5% Lidocaine Gel [Edema Assessment] -Lower Limb Edema Present No -Right Calf (cm) 29.8 -Right Ankle (cm) 19.5 -Left Calf (cm) 29.4 -Left Ankle (cm) 19.5 WC - Nurse 2 - General Ulcer CM Notes Start: 02/14/19 15:47 Freq: Status: Active Protocol: Activity Type Activity Date Activity User E-Sign Co-Sign Detail Recorded Client Recorded Date Recorded By Document 02/14/19 16:35 AN [id number] 02/14/19 16:46 AN 02/14/19 16:35 Wound Center Nurse 2 [Procedure/Treatment] #8 Right posterior LE -Time 16:36 -Correct Patient Yes -Correct Side, Site, Position Yes -Correct Procedure Yes -Procedure Performed Yes -Type of Procedure Debridement -Clinical Debridement Subcutaneous -Post Debridement Size (cm) - Length 1.8 -Post Debridement Size (cm) - Width 1.8 -Post Debridement Size (cm) - Depth 0.1 -Total Square Cm 3.24 -Wound/Ulcer Outcome Not Healed -Ulcer Cleansing Rinsed/ Irrigated with Saline -Foul Odor after Cleansing No -Bioengineered Tissue No -Bleeding Controlled with Pressure -Offloading No -Treatment Response Procedure Tolerated Well #7 Right heel -Time 16:36 -Correct Patient Yes -Correct Side, Site, Position Yes -Correct Procedure Yes -Procedure Performed Yes -Type of Procedure Debridement -Clinical Debridement Subcutaneous -Post Debridement Size (cm) - Length 3.0 -Post Debridement Size (cm) - Width 0.9 -Post Debridement Size (cm) - Depth 0.2 -Total Square Cm 2.70 -Wound/Ulcer Outcome Not Healed -Ulcer Cleansing Rinsed/ Irrigated with Saline -Foul Odor after Cleansing No -Bioengineered Tissue No -Bleeding Controlled with Pressure -Offloading No -Treatment Response Procedure Tolerated Well [See Physician Procedure note for Specifics] Pain Scale: 0-10 Numeric [Pain] -Is Patient Pain Free? Yes Musculoskeletal: Tenderness - Of right heel on palpation Debridement Note Post-Debridement Measurements/Treatment WC - Nurse 2 - General Ulcer CM Notes Start: 02/14/19 15:47 Freq: Status: Active Protocol: Activity Type Activity Date Activity User E-Sign Co-Sign Detail Recorded Client Recorded Date Recorded By Document 02/14/19 16:35 AN [id number] 02/14/19 16:46 AN 02/14/19 16:35 Wound Center Nurse 2 #8 Right posterior LE -Time 16:36 -Correct Patient Yes -Correct Side, Site, Position Yes -Correct Procedure Yes -Procedure Performed Yes -Type of Procedure Debridement -Clinical Debridement Subcutaneous -Post Debridement Size (cm) - Length 1.8 -Post Debridement Size (cm) - Width 1.8 -Post Debridement Size (cm) - Depth 0.1 -Total Square Cm 3.24 -Wound/Ulcer Outcome Not Healed -Ulcer Cleansing Rinsed/ Irrigated with Saline -Foul Odor after Cleansing No -Bioengineered Tissue No -Bleeding Controlled with Pressure -Offloading No -Treatment Response Procedure Tolerated Well #7 Right heel -Time 16:36 -Correct Patient Yes -Correct Side, Site, Position Yes -Correct Procedure Yes -Procedure Performed Yes -Type of Procedure Debridement -Clinical Debridement Subcutaneous -Post Debridement Size (cm) - Length 3.0 -Post Debridement Size (cm) - Width 0.9 -Post Debridement Size (cm) - Depth 0.2 -Total Square Cm 2.70 -Wound/Ulcer Outcome Not Healed -Ulcer Cleansing Rinsed/ Irrigated with Saline -Foul Odor after Cleansing No -Bioengineered Tissue No -Bleeding Controlled with Pressure -Offloading No -Treatment Response Procedure Tolerated Well Pain Scale: 0-10 Numeric Is Patient Pain Free? Yes Wound debrided: Right posterior lower extremity ulcer Laterality: Right Type of Debridement: Excisional debridement Anesthesia Used: 5% Lidocaine Gel Depth: in the subcutaneous layer Percentage of wound debrided: 100 Instrument Used: 3mm curette Tissue Removed: Slough and devitalized tissue Severity: Fat Layer Exposed Amount of bleeding with debridement: Mild Bleeding Controlled with: Pressure Patient tolerated procedure well - Additional Wound Wound debrided: Right plantar foot ulceration cluster Laterality: Right Type of Debridement: Excisional debridement Anesthesia Used: 5% Lidocaine Gel Depth: in the subcutaneous layer Percentage of wound debrided: 100 Instrument Used: 3mm curette, 7mm curette Tissue Removed: Callus, slough and devitalized tissue Severity: Fat Layer Exposed Amount of bleeding with debridement: Mild Bleeding Controlled with: Pressure Patient tolerated procedure: Patient tolerated procedure well Assessment/Plan Assessment: See above diagnoses Plan: The patient was seen and examined at the wound center today and was updated on the plan of care. A subcutaneous debridement was performed today. The patient tolerated the procedure well. The patients wound care will consist of: Application of clotrimazole cream to right heel with gauze and ABD pad for offloading. Instructed patient to follow-up with his rubber chemist to have new orthotic manufactured. For his right lower extremity ulceration, a collagen dressing with silver was recommended. Do believe that patient has underlying peripheral neuropathy that overall complicates his plan of care. Discussed following up with his primary care regarding this issue. Baseline bloodwork and Vascular studies held at this time, though did instruct patient that he should be following up with Dr. Rose routinely given his past history. Patient educated on the importance of diet on wound healing and instructed to increase protein and vitamin C intake. Patient verbalized understanding. Patient will follow up at wound healing center in one week or sooner if needed. Patient is requesting to have a home care order to assist with wound dressing changes, will need ordered by a physician. Therefore patient will follow-up in wound center in 1 week with physician and afterwards with myself. This note was generated with [email or web address] dictation software. It may contain incorrect words, spelling, and punctuation that were not noted in checking the note before signing. Code Visit Office Visits / Consults: [id number] OV L4 Est [id number]: [id number] Luz subq tissue 20 sq cm/<
== END 2019-02-14 23:59 ==
LOC: WC 15:31
PROVIDERS: Family Provider Family Medicine; PCP Family Medicine; Visit Provider Nurse Practitioner Family
DX: I73.9 Peripheral vascular disease, unspecified (principal); L97.812 Non-pressure chronic ulcer of other part of right lower leg with fat layer exposed; L97.512 Non-pressure chronic ulcer of other part of right foot with fat layer exposed; I10 Essential (primary) hypertension; E78.5 Hyperlipidemia, unspecified; G62.9 Polyneuropathy, unspecified; I25.10 Atherosclerotic heart disease of native coronary artery without angina pectoris; M19.90 Unspecified osteoarthritis, unspecified site; Z79.899 Other long term (current) drug therapy; Z79.82 Long term (current) use of aspirin; Z87.891 Personal history of nicotine dependence
CPT/HCPCS: 11042; 99212; G0463

== ENCOUNTER → 2019-02-25 15:12 | Outpatient (CLI) | payer MEDICARE, OTHER, SELFPAY ==
[2019-02-21 10:24] VITALS: BMI 20.2
--- NOTE | 2019-02-25 15:16 | RAD_ITS ---
STUDY: X-RAY - RIGHT WRIST REASON FOR EXAM: Right wrist pain, frequent falls in the last week. TECHNIQUE: 3 view(s) of the wrist were obtained. COMPARISON: Radiographs of the right hand 10/15/2014. FINDINGS: There is osteopenia. There are marginal osteophytes of the distal radius, joint space narrowing of the radiocarpal compartment and interval development of a prominent cyst in the distal radius. There are marginal osteophytes and joint space narrowing of the distal radioulnar articulation. There is joint space narrowing of the triscaphe articulation with subchondral cystic change. There is interval development of widening of scapholunate interval. There is joint space narrowing of the carpometacarpal articulation of the thumb. There is joint space narrowing of the second carpometacarpal joint. Normal visualized metacarpal bones. There is mild chondrocalcinosis in the lunotriquetral ligament. 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 Interval development of scapholunate interval widening suggestive of scapholunate ligament tear. Chondrocalcinosis. Electronically Signed: Bradley Gomez MD at 15:40 EST Tel , Service support ,
== END ==
PROVIDERS: Family Provider Family Medicine; PCP Family Medicine; Referring Provider Family Medicine; Visit Provider Family Medicine
DX: M25.531 Pain in right wrist (principal)
CPT/HCPCS: 73110

== ENCOUNTER → 2019-03-13 12:34 | Outpatient (CLI) | payer MEDICARE, OTHER, SELFPAY ==
[2019-02-21 10:24] VITALS: BMI 20.2
[2019-03-07 12:08] VITALS: BMI 20.2
--- NOTE | 2019-03-13 12:38 | ADU_ITS ---
Reason For Study: atherosclerosis with claudication Right Velocities Left Velocities Ext. Iliac Artery, dist = 102.8 cm./sec. Ext Iliac Artery, dist = 54.6 cm./sec. Common Femoral Artery, mid = 70.9 cm./sec. Common Femoral Artery, mid = 43.6 cm./sec. Supf Femoral Artery, prox = 77.7 cm./sec. Supf. Femoral Artery, prox = 71.0 cm./sec. Supf Femoral Artery, mid = 63.1 cm./sec. Supf. Femoral Artery, mid = 394.8 cm./sec. Supf Femoral Artery, dist. = 260.5 cm./sec. Supf. Femoral Artery, dist = 24.1 cm./sec. Profunda Femoral Artery = 134.4 cm./sec. Profunda Femoral Artery = 78.3 cm./sec. Popliteal Artery, prox. = 102.7 cm./sec. Popliteal Artery, proximal, = 104.5 cm./sec. Popliteal Artery, mid = 94.1 cm./sec. Popliteal Artery, mid = 12.8 cm./sec. Popliteal Artery, dist = 103.9 cm./sec. Popliteal Artery, distal = 17.6 cm./sec. Post. Tibial Artery, prox = 46.2 cm./sec. Post. Tibial Artery, prox = 22.3 cm./sec. Post. Tibial Artery, mid = 64.6 cm./sec. Post Tibial Artery, mid = 16.6 cm./sec. Post. Tibial Artery, dist = 48.6 cm./sec. Post Tibial Artery, dist. = 13.8 cm./sec. Ant. Tibial Artery, prox = 134.4 cm./sec. Peroneal Artery, prox = 24.2 cm./sec. Ant. Tibial Artery, mid = 25.0 cm./sec. Peroneal Artery, mid = 20.4 cm./sec. Ant. Tibial Artery, dist = 17.1 cm./sec. Peroneal Artery,dist. = 18.5 cm./sec. Unable to obtain flow in the Peroneal A. Ant.Tibial Artery, prox = 12.8 cm./sec. Ant. Tibial Artery, distal = 62.9 cm./sec. Unable to obtain flow in the Mid TWIN. Procedure The exam was diagnostic. Exam performed in department. Interpretation Summary 1. Right leg withmoderate SFA and anterior tibial stenosis. 2. Left leg with severe SFA stenosis. Ordering Physician: Nate Rose Performed By: Collin Tsai RVT
--- NOTE | 2019-03-13 12:39 | ART_ITS ---
Reason For Study: atherosclerosis with claudication Procedure A bilateral lower extremity continuous wave Doppler with analog waveform analysis and ankle brachial indexes. Left Segmental Pressures Left brachial= 190mmHg. Left posterior tibial artery = 127mmHg. Left dorsalis pedis artery = 113mmHg. Left digit = 97 mmHg. The left dorsalis pedis waveforms are monophasic. The left posterior tibial artery waveforms are monophasic. Right Segmental Pressures Right brachial= 189mmHg. Right posterior tibial artery = 204mmHg. Right dorsalis pedis artery = 160mmHg. Right digit = 104 mmHg. The right dorsalis pedis waveforms are biphasic. The right posterior tibial artery waveforms are biphasic. Indices The right ankle brachial index by the dorsalis pedis is .84. The right ankle brachial index by the posterior tibial artery is 1.07. The right digital-brachial index is .55. The left ankle brachial index by the posterior tibial artery is .67. The left ankle brachial index by the dorsalis pedis is .59. The left digital-brachial index is .51. Interpretation Summary 1. bilateral biphasic flow with RALPH 1.07/0.67 and DBI 0.55/0.51. Ordering Physician: Nate Rose Performed By: MIKHAIL JEFFERY [facility]
== END ==
PROVIDERS: Family Provider Family Medicine; PCP Family Medicine; Referring Provider Surgery Vascular Surgery; Visit Provider Surgery Vascular Surgery
DX: I70.213 Atherosclerosis of native arteries of extremities with intermittent claudication, bilateral legs (principal)
CPT/HCPCS: 93922; 93925; 99212; G0463

== ENCOUNTER 2019-03-13 15:00 | Outpatient (RCR) | payer MEDICARE, OTHER, SELFPAY ==
[2019-02-15 01:36] VITALS: BP 144/87; PULSE 71; RESP 16; TEMP 35.8
[2019-02-21 10:24] VITALS: BP 136/92; PULSE 91; RESP 20; TEMP 36.4; BMI 20.2
--- NOTE | 2019-02-21 17:17 | PCM.WC.PN ---
(1) Ulcer of right lower extremity with fat layer exposed Status: Chronic Current Visit: Yes Code(s): L97.912 - Non-pressure chronic ulcer of unspecified part of right lower leg with fat layer exposed (2) Peripheral arterial occlusive disease Status: Chronic Current Visit: Yes Code(s): I77.9 - Disorder of arteries and arterioles, unspecified Comment: SFA PTCA/Stent 08/2012; angioplasty and stenting- RSFA @ [facility] per Dr. Zapata; Stent to distal RSFA to popliteal, Stent-Prox RSFA 10/23/13 (3) Peripheral neuropathy Status: Chronic Current Visit: Yes Code(s): G62.9 - Polyneuropathy, unspecified (4) Open wound of finger of left hand Status: Acute Current Visit: Yes Qualifiers: Encounter type: initial encounter Qualified Code(s): S61.209A - Unspecified open wound of unspecified finger without damage to nail, initial encounter Code(s): S61.209A - Unspecified open wound of unspecified finger without damage to nail, initial encounter Comment: Traumatic, penetrating. Type of Wound Date of Service: 02/21/19 Chief Complaint: Chronic right heel ulceration, right posterior lower leg ulcer History of Wound: Joaquin is an 83-year-old male who presents to the clinic today with complaints of a right posterior lower extremity ulcer, as well as ulceration of the right heel. He has a past medical history significant for CAD, PVD, peripheral neuropathy, and arthritis. He has a history of angioplasty and stent placement in his right superficial femoral artery and right popliteal artery. He continues to see Dr. Rose for vascular management. He reports his right posterior lower extremity ulcer onset 2 to 3 months ago, possibly after bumping into an object in his home. He has not been using any topical or [id number] treatment for his right posterior lower extremity ulceration. He reports moderate drainage from the ulcer that is thin and light yellow in color. He denies any purulent drainage, increasing pain, redness, swelling, foul odor, or other signs of infection from the right posterior lower extremity ulcer. Patient also reports burning painful ulcerations of his right heel, which have been present for the past year. He was previously seen at the wound center for management of these ulcers. In the past, his cultures were positive for yeast, and he was treated with antifungal/steroid topical treatment which provided some improvement. He also had previously improved with use of orthotics, but reports that he is unable to tolerate these at this time. He was previously on gabapentin, for management of his chronic peripheral neuropathy. However his primary care provider has since discontinued his gabapentin and he has reported worsening pain in the heel since discontinuation. He rates his pain 8 out of 10 and reports pain is intermittent and occurs with pressure/weightbearing. He is ambulatory with a cane. He denies any drainage from his ulcerations of his right heel. He denies any swelling or signs or symptoms of infection. Denies any nausea, vomiting, diarrhea. He denies any fever or chills. He does state that both himself and his will have difficulties caring for the wounds and will require nursing care for assistance. Progress of Wound: Transfer of care to pa. Previously followed up with Alfonzo Duncan NP. Unable to care for his wounds himself. His is also unable to help with wound care. He would require home health services. New left middle finger wound after fall. - Physical Exam Vital Signs Temp Pulse Resp BP 97.5 F L 91 20 H 136/92 H 02/21/19 10:24 02/21/19 10:24 02/21/19 10:24 02/21/19 10:24 General: Alert, Oriented x3, Cooperative HEENT: Atraumatic, Normocephalic Oral: Moist Mucosa Lungs: Normal air movement Extremities: No cyanosis Skin: Ulcer/ Wound Wound Measurements and Assessment WC - Nurse 1 - General Ulcer Measurement Start: 02/21/19 10:24 Freq: Status: Active Protocol: Activity Type Activity Date Activity User E-Sign Co-Sign Detail Recorded Client Recorded Date Recorded By Document 02/21/19 10:24 DL [id number] 02/21/19 10:37 DL 02/21/19 10:24 Wound Center Nurse 1 [Ulcer Assessment] #8 Right posterior LE -Current Size (cm) - Length 1.3 -Current Size (cm) - Width 0.4 -Current Size (cm) - Depth 0.1 -Total Square Cm 0.52 -Photo Taken No -Exudate Amt None Present -Wound Margin Thickened -Granulation Amt None Present (0 %) -Structure Exposed N/A -Texture (Michelle-wound Skin Appearance) No Abnormality -Moisture (Michelle-wound Skin Appearance No Abnormality, ) Dry/Scaly -Color (Michelle-wound Skin Appearance) Hemosiderin Staining -Temperature (Michelle-wound Skin No Abnormality Appearance) (Pt Warm) -Tenderness on Palpation (Michelle-wound No Skin Appearance) -Ulcer Cleansing Rinsed/ Irrigated with Saline -Foul Odor after Cleansing No -Anesthetic Used 5% Lidocaine Gel #7 Right heel -Current Size (cm) - Length 0.1 -Current Size (cm) - Width 0.1 -Current Size (cm) - Depth 0.1 -Total Square Cm 0.01 -Photo Taken No -Exudate Amt None Present -Wound Margin Flat & Intact -Granulation Amt Large (67-100%) -Granulation Quality [facility] -Necrosis Amt None Present (0 %) -Structure Exposed N/A -Texture (Michelle-wound Skin Appearance) No Abnormality -Moisture (Michelle-wound Skin Appearance Dry/Scaly ) -Color (Michelle-wound Skin Appearance) No Abnormality -Temperature (Michelle-wound Skin No Abnormality Appearance) (Pt Warm) -Tenderness on Palpation (Michelle-wound No Skin Appearance) -Ulcer Cleansing Rinsed/ Irrigated with Saline -Foul Odor after Cleansing No [Edema Assessment] -Right Calf (cm) 30.3 -Right Ankle (cm) 18.5 WC - Nurse 2 - General Ulcer CM Notes Start: 02/21/19 10:24 Freq: Status: Active Protocol: Activity Type Activity Date Activity User E-Sign Co-Sign Detail Recorded Client Recorded Date Recorded By Document 02/21/19 11:06 MW [id number] 02/21/19 11:11 MW 02/21/19 11:06 Wound Center Nurse 2 [Procedure/Treatment] #10 left middle finger tip -Time 11:07 -Correct Patient Yes -Correct Side, Site, Position Yes -Correct Procedure Yes -Procedure Performed No -Post Debridement Size (cm) - Length 0.8 -Post Debridement Size (cm) - Width 1.2 -Post Debridement Size (cm) - Depth 0.1 -Total Square Cm 0.96 -Wound/Ulcer Outcome Not Healed -Ulcer Cleansing Rinsed/ Irrigated with Saline -Foul Odor after Cleansing No -Bioengineered Tissue No -Bleeding Controlled with Pressure -Offloading No -Treatment Response Procedure Tolerated Well #9 right medial LE -Time 11:07 -Correct Patient Yes -Correct Side, Site, Position Yes -Correct Procedure Yes -Procedure Performed Yes -Type of Procedure Debridement -Clinical Debridement Subcutaneous -Post Debridement Size (cm) - Length 0.4 -Post Debridement Size (cm) - Width 0.4 -Post Debridement Size (cm) - Depth 0.1 -Total Square Cm 0.16 -Wound/Ulcer Outcome Not Healed -Ulcer Cleansing Rinsed/ Irrigated with Saline -Foul Odor after Cleansing No -Bioengineered Tissue No -Bleeding Controlled with Pressure -Offloading No -Treatment Response Procedure Tolerated Well #8 Right posterior LE -Time 11:08 -Correct Patient Yes -Correct Side, Site, Position Yes -Correct Procedure Yes -Procedure Performed Yes -Type of Procedure Debridement -Clinical Debridement Subcutaneous -Post Debridement Size (cm) - Length 1.5 -Post Debridement Size (cm) - Width 0.4 -Post Debridement Size (cm) - Depth 0.1 -Total Square Cm 0.60 -Wound/Ulcer Outcome Not Healed -Ulcer Cleansing Rinsed/ Irrigated with Saline -Foul Odor after Cleansing No -Bioengineered Tissue No -Bleeding Controlled with Pressure -Offloading No -Treatment Response Procedure Tolerated Well #7 Right heel -Time 11:09 -Correct Patient Yes -Correct Side, Site, Position Yes -Correct Procedure Yes -Procedure Performed No -Post Debridement Size (cm) - Length 0 -Post Debridement Size (cm) - Width 0 -Post Debridement Size (cm) - Depth 0 -Total Square Cm 0 -Wound/Ulcer Outcome Healed- Epithelialized [See Physician Procedure note for Specifics] Pain Scale: 0-10 Numeric [Pain] -Is Patient Pain Free? Yes Neurological: Cranial nerves II-XII grossly intact Psych/Mental Status: Normal Affect Debridement Note Post-Debridement Measurements/Treatment WC - Nurse 2 - General Ulcer CM Notes Start: 02/21/19 10:24 Freq: Status: Active Protocol: Activity Type Activity Date Activity User E-Sign Co-Sign Detail Recorded Client Recorded Date Recorded By Document 02/21/19 11:06 MW [id number] 02/21/19 11:11 MW 02/21/19 11:06 Wound Center Nurse 2 #10 left middle finger tip -Time 11:07 -Correct Patient Yes -Correct Side, Site, Position Yes -Correct Procedure Yes -Procedure Performed No -Post Debridement Size (cm) - Length 0.8 -Post Debridement Size (cm) - Width 1.2 -Post Debridement Size (cm) - Depth 0.1 -Total Square Cm 0.96 -Wound/Ulcer Outcome Not Healed -Ulcer Cleansing Rinsed/ Irrigated with Saline -Foul Odor after Cleansing No -Bioengineered Tissue No -Bleeding Controlled with Pressure -Offloading No -Treatment Response Procedure Tolerated Well #9 right medial LE -Time 11:07 -Correct Patient Yes -Correct Side, Site, Position Yes -Correct Procedure Yes -Procedure Performed Yes -Type of Procedure Debridement -Clinical Debridement Subcutaneous -Post Debridement Size (cm) - Length 0.4 -Post Debridement Size (cm) - Width 0.4 -Post Debridement Size (cm) - Depth 0.1 -Total Square Cm 0.16 -Wound/Ulcer Outcome Not Healed -Ulcer Cleansing Rinsed/ Irrigated with Saline -Foul Odor after Cleansing No -Bioengineered Tissue No -Bleeding Controlled with Pressure -Offloading No -Treatment Response Procedure Tolerated Well #8 Right posterior LE -Time 11:08 -Correct Patient Yes -Correct Side, Site, Position Yes -Correct Procedure Yes -Procedure Performed Yes -Type of Procedure Debridement -Clinical Debridement Subcutaneous -Post Debridement Size (cm) - Length 1.5 -Post Debridement Size (cm) - Width 0.4 -Post Debridement Size (cm) - Depth 0.1 -Total Square Cm 0.60 -Wound/Ulcer Outcome Not Healed -Ulcer Cleansing Rinsed/ Irrigated with Saline -Foul Odor after Cleansing No -Bioengineered Tissue No -Bleeding Controlled with Pressure -Offloading No -Treatment Response Procedure Tolerated Well #7 Right heel -Time 11:09 -Correct Patient Yes -Correct Side, Site, Position Yes -Correct Procedure Yes -Procedure Performed No -Post Debridement Size (cm) - Length 0 -Post Debridement Size (cm) - Width 0 -Post Debridement Size (cm) - Depth 0 -Total Square Cm 0 -Wound/Ulcer Outcome Healed- Epithelialized Pain Scale: 0-10 Numeric Is Patient Pain Free? Yes Wound debrided: Right lower extremity (posterior) Type of Debridement: Excisional debridement Anesthesia Used: 4% Lidocaine Solution Depth: Down to and including healthy tissue, in the subcutaneous layer Percentage of wound debrided: 100 Instrument Used: 3mm curette Tissue Removed: Slough and devitalized tissue Severity: Fat Layer Exposed Amount of bleeding with debridement: Mild Bleeding Controlled with: Pressure Patient tolerated procedure well - Additional Wound Wound debrided: Right lower extremity (medial) Type of Debridement: Excisional debridement Anesthesia Used: 4% Lidocaine Solution Depth: Down to and including healthy tissue, in the subcutaneous layer Percentage of wound debrided: 100 Instrument Used: 3mm curette Tissue Removed: Slough and devitalized tissue Severity: Fat Layer Exposed Amount of bleeding with debridement: Mild Bleeding Controlled with: Pressure Patient tolerated procedure: Patient tolerated procedure well Assessment/Plan Active Problems (Last Reviewed 01/17/19 @ 15:37 by ALONA Chase) Peripheral neuropathy (Chronic) Ulcer of right lower extremity with fat layer exposed (Chronic) Open wound of finger of left hand (Acute) Traumatic, penetrating. Peripheral arterial occlusive disease (Chronic) SFA PTCA/Stent 08/2012; angioplasty and stenting- RSFA @ [facility] per Dr. Zapata; Stent to distal RSFA to popliteal, Stent-Prox RSFA 10/23/13 Assessment: Same as above Plan: Debridement done as documented above. Procedure was well-tolerated. Promogran daily with Adaptic over top to right lower extremity ulcers. Adaptic and gauze to left middle finger wound. Change this daily as well. Increase protein intake. Continue edema management. His questions were answered and he was advised to call with any further questions or concerns. Due to concerns with caring for himself and inability of his to help with his care, an order for home health care has been placed. Follow-up in a week. This note was generated with [employer] dictation software. It may contain incorrect words, spelling, and punctuation that were not noted in checking the note before signing. Code Visit [id number]: [id number] Luz subq tissue 20 sq cm/<
[2019-02-28 11:33] VITALS: BP 166/90; PULSE 75; RESP 18; TEMP 36.3; BMI 20.2
--- NOTE | 2019-02-28 14:00 | PCM.WC.PN ---
(1) Ulcer of right lower extremity with fat layer exposed Status: Chronic Current Visit: Yes Code(s): L97.912 - Non-pressure chronic ulcer of unspecified part of right lower leg with fat layer exposed (2) Peripheral arterial occlusive disease Status: Chronic Current Visit: Yes Code(s): I77.9 - Disorder of arteries and arterioles, unspecified Comment: SFA PTCA/Stent 08/2012; angioplasty and stenting- RSFA @ [facility] per Dr. Zapata; Stent to distal RSFA to popliteal, Stent-Prox RSFA 10/23/13 (3) Peripheral neuropathy Status: Chronic Current Visit: Yes Code(s): G62.9 - Polyneuropathy, unspecified (4) Open wound of finger of left hand Status: Acute Current Visit: Yes Qualifiers: Encounter type: initial encounter Qualified Code(s): S61.209A - Unspecified open wound of unspecified finger without damage to nail, initial encounter Code(s): S61.209A - Unspecified open wound of unspecified finger without damage to nail, initial encounter Comment: Traumatic, penetrating. Type of Wound Date of Service: 02/28/19 Chief Complaint: Chronic right heel ulceration, right posterior lower leg ulcer History of Wound: Joaquin is an 83-year-old male who presents to the clinic today with complaints of a right posterior lower extremity ulcer, as well as ulceration of the right heel. He has a past medical history significant for CAD, PVD, peripheral neuropathy, and arthritis. He has a history of angioplasty and stent placement in his right superficial femoral artery and right popliteal artery. He continues to see Dr. Rose for vascular management. He reports his right posterior lower extremity ulcer onset 2 to 3 months ago, possibly after bumping into an object in his home. He has not been using any topical or [id number] treatment for his right posterior lower extremity ulceration. He reports moderate drainage from the ulcer that is thin and light yellow in color. He denies any purulent drainage, increasing pain, redness, swelling, foul odor, or other signs of infection from the right posterior lower extremity ulcer. Patient also reports painful ulcerations of his right heel, which have been present for the past year. He was previously seen at the wound center for management of these ulcers. In the past, his cultures were positive for Maria M, and he was treated with antifungal topical treatment. He also had previously improved with use of orthotics, but reports that he is unable to tolerate these at this time. He was previously on gabapentin, for management of his chronic peripheral neuropathy. However his primary care provider has since discontinued his gabapentin. He rates his pain 8 out of 10 and reports pain is intermittent and occurs with pressure/weightbearing. He is ambulatory with a cane. He denies any drainage from his ulcerations of his right heel. He denies any swelling or signs or symptoms of infection. Denies any nausea, vomiting, diarrhea. He denies any fever or chills. Progress of Wound: Improving wound/ulcer. No new concerns at this time. Patient however not approved for home health and he is not able to properly manage/care for his ulcers/wound. His is also not able to help him. - Physical Exam Vital Signs Temp Pulse Resp BP 97.3 F L 75 18 166/90 H 02/28/19 11:33 02/28/19 11:33 02/28/19 11:33 02/28/19 11:33 General: Alert, Oriented x3, Cooperative, No apparent distress HEENT: Atraumatic, Normocephalic Oral: Moist Mucosa Neck: Supple Skin: Ulcer/ Wound Wound Measurements and Assessment WC - Nurse 1 - General Ulcer Measurement Start: 02/21/19 10:24 Freq: Status: Active Protocol: Activity Type Activity Date Activity User E-Sign Co-Sign Detail Recorded Client Recorded Date Recorded By Document 02/28/19 11:33 DV [id number] 02/28/19 11:47 DV 02/28/19 11:33 Wound Center Nurse 1 [Ulcer Assessment] #10 left middle finger tip -Combined with other wound No -Current Size (cm) - Length 0.1 -Current Size (cm) - Width 0.1 -Current Size (cm) - Depth 0.1 -Total Square Cm 0.01 -Photo Taken No -Epithelialization None Present -Tunneling No -Undermining/Tunneling No -Circular Undermining No -Classification - Thickness Full Thickness without Exposed Support Structure -Texture (Michelle-wound Skin Appearance) No Abnormality, Assessed -Moisture (Michelle-wound Skin Appearance No Abnormality, ) Assessed -Color (Michelle-wound Skin Appearance) No Abnormality, Assessed -Temperature (Michelle-wound Skin No Abnormality Appearance) (Pt Warm) -Tenderness on Palpation (Michelle-wound No Skin Appearance) -Ulcer Cleansing Rinsed/ Irrigated with Saline -Foul Odor after Cleansing No -Anesthetic Used 4% Lidocaine Solution #9 right medial LE -Combined with other wound No -Current Size (cm) - Length 0.1 -Current Size (cm) - Width 0.1 -Current Size (cm) - Depth 0.1 -Total Square Cm 0.01 -Photo Taken No -Epithelialization None Present -Tunneling No -Undermining/Tunneling No -Circular Undermining No -Classification - Thickness Full Thickness without Exposed Support Structure -Exudate Amt None Present -Granulation Amt None Present (0 %) -Slough/Fibrin Yes -Necrosis Amt Small (1-33%) -Necrotic Tissue Type Eschar -Structure Exposed None/Limited to Skin Breakdown -Texture (Michelle-wound Skin Appearance) No Abnormality, Assessed -Moisture (Michelle-wound Skin Appearance Assessed,Dry/ ) Scaly -Color (Michelle-wound Skin Appearance) No Abnormality, Assessed -Temperature (Michelle-wound Skin No Abnormality Appearance) (Pt Warm) -Tenderness on Palpation (Michelle-wound No Skin Appearance) -Ulcer Cleansing Rinsed/ Irrigated with Saline -Foul Odor after Cleansing No -Anesthetic Used 4% Lidocaine Solution #8 Right posterior LE -Combined with other wound No -Current Size (cm) - Length 0.4 -Current Size (cm) - Width 0.2 -Current Size (cm) - Depth 0.1 -Total Square Cm 0.08 -Photo Taken No -Epithelialization None Present -Tunneling No -Undermining/Tunneling No -Circular Undermining No -Classification - Thickness Full Thickness without Exposed Support Structure -Exudate Amt None Present -Wound Margin Indistinct, Non -Visible -Granulation Amt None Present (0 %) -Slough/Fibrin Yes -Necrosis Amt Large (67-100%) -Necrotic Tissue Type Adherent Slough -Structure Exposed None/Limited to Skin Breakdown -Texture (Michelle-wound Skin Appearance) Assessed, Scarring -Moisture (Michelle-wound Skin Appearance Assessed,Dry/ ) Scaly -Color (Michelle-wound Skin Appearance) No Abnormality, Assessed -Temperature (Michelle-wound Skin No Abnormality Appearance) (Pt Warm) -Tenderness on Palpation (Michelle-wound No Skin Appearance) -Ulcer Cleansing Rinsed/ Irrigated with Saline -Foul Odor after Cleansing No -Anesthetic Used 4% Lidocaine Solution [Edema Assessment] -Lower Limb Edema Present No WC - Nurse 2 - General Ulcer CM Notes Start: 02/21/19 10:24 Freq: Status: Active Protocol: Activity Type Activity Date Activity User E-Sign Co-Sign Detail Recorded Client Recorded Date Recorded By Document 02/28/19 12:02 MW [id number] 02/28/19 12:11 MW 02/28/19 12:02 Wound Center Nurse 2 [Procedure/Treatment] #10 left middle finger tip -Time 12:09 -Correct Patient Yes -Correct Side, Site, Position Yes -Correct Procedure Yes -Procedure Performed Yes -Type of Procedure Debridement -Clinical Debridement Selective -Post Debridement Size (cm) - Length 0.1 -Post Debridement Size (cm) - Width 0.1 -Post Debridement Size (cm) - Depth 0.1 -Total Square Cm 0.01 -Wound/Ulcer Outcome Not Healed -Ulcer Cleansing Rinsed/ Irrigated with Saline -Foul Odor after Cleansing No -Bleeding Controlled with Pressure -Offloading No -Treatment Response Procedure Tolerated Well #9 right medial LE -Time 12:03 -Correct Patient Yes -Correct Side, Site, Position Yes -Correct Procedure Yes -Procedure Performed Yes -Type of Procedure Debridement -Clinical Debridement Subcutaneous -Post Debridement Size (cm) - Length 0.4 -Post Debridement Size (cm) - Width 0.2 -Post Debridement Size (cm) - Depth 0.1 -Total Square Cm 0.08 -Wound/Ulcer Outcome Not Healed -Ulcer Cleansing Rinsed/ Irrigated with Saline -Foul Odor after Cleansing No -Bioengineered Tissue No -Bleeding Controlled with Pressure -Offloading No -Treatment Response Procedure Tolerated Well #8 Right posterior LE -Time 12:03 -Correct Patient Yes -Correct Side, Site, Position Yes -Correct Procedure Yes -Procedure Performed Yes -Type of Procedure Debridement -Clinical Debridement Subcutaneous -Post Debridement Size (cm) - Length 1.0 -Post Debridement Size (cm) - Width 0.3 -Post Debridement Size (cm) - Depth 0.1 -Total Square Cm 0.30 -Wound/Ulcer Outcome Not Healed -Ulcer Cleansing Rinsed/ Irrigated with Saline -Foul Odor after Cleansing No -Bioengineered Tissue No -Bleeding Controlled with Pressure -Offloading No -Treatment Response Procedure Tolerated Well [See Physician Procedure note for Specifics] Pain Scale: 0-10 Numeric [Pain] -Is Patient Pain Free? Yes Musculoskeletal: No Muscle Wasting Neurological: Cranial nerves II-XII grossly intact Psych/Mental Status: Normal Affect Debridement Note Post-Debridement Measurements/Treatment WC - Nurse 2 - General Ulcer CM Notes Start: 02/21/19 10:24 Freq: Status: Active Protocol: Activity Type Activity Date Activity User E-Sign Co-Sign Detail Recorded Client Recorded Date Recorded By Document 02/21/19 11:06 MW [id number] 02/21/19 11:11 MW Document 02/28/19 12:02 MW [id number] 02/28/19 12:11 MW 02/21/19 02/28/19 11:06 12:02 Wound Center Nurse 2 #10 left middle finger tip -Time 11: 12:09 -Correct Patient Yes Yes -Correct Side, Site, Position Yes Yes -Correct Procedure Yes Yes -Procedure Performed No Yes -Type of Procedure Debridement -Clinical Debridement Selective -Post Debridement Size (cm) - Length 0.8 0.1 -Post Debridement Size (cm) - Width 1.2 0.1 -Post Debridement Size (cm) - Depth 0.1 0.1 -Total Square Cm 0.96 0.01 -Wound/Ulcer Outcome Not Healed Not Healed -Ulcer Cleansing Rinsed/ Rinsed/ Irrigated with Irrigated with Saline Saline -Foul Odor after Cleansing No No -Bioengineered Tissue No -Bleeding Controlled with Pressure Pressure -Offloading No No -Treatment Response Procedure Procedure Tolerated Well Tolerated Well #9 right medial LE -Time 11:07 12:03 -Correct Patient Yes Yes -Correct Side, Site, Position Yes Yes -Correct Procedure Yes Yes -Procedure Performed Yes Yes -Type of Procedure Debridement Debridement -Clinical Debridement Subcutaneous Subcutaneous -Post Debridement Size (cm) - Length 0.4 0.4 -Post Debridement Size (cm) - Width 0.4 0.2 -Post Debridement Size (cm) - Depth 0.1 0.1 -Total Square Cm 0.16 0.08 -Wound/Ulcer Outcome Not Healed Not Healed -Ulcer Cleansing Rinsed/ Rinsed/ Irrigated with Irrigated with Saline Saline -Foul Odor after Cleansing No No -Bioengineered Tissue No No -Bleeding Controlled with Pressure Pressure -Offloading No No -Treatment Response Procedure Procedure Tolerated Well Tolerated Well #8 Right posterior LE -Time 11:08 12:03 -Correct Patient Yes Yes -Correct Side, Site, Position Yes Yes -Correct Procedure Yes Yes -Procedure Performed Yes Yes -Type of Procedure Debridement Debridement -Clinical Debridement Subcutaneous Subcutaneous -Post Debridement Size (cm) - Length 1.5 1.0 -Post Debridement Size (cm) - Width 0.4 0.3 -Post Debridement Size (cm) - Depth 0.1 0.1 -Total Square Cm 0.60 0.30 -Wound/Ulcer Outcome Not Healed Not Healed -Ulcer Cleansing Rinsed/ Rinsed/ Irrigated with Irrigated with Saline Saline -Foul Odor after Cleansing No No -Bioengineered Tissue No No -Bleeding Controlled with Pressure Pressure -Offloading No No -Treatment Response Procedure Procedure Tolerated Well Tolerated Well #7 Right heel -Time 11:09 -Correct Patient Yes -Correct Side, Site, Position Yes -Correct Procedure Yes -Procedure Performed No -Post Debridement Size (cm) - Length 0 -Post Debridement Size (cm) - Width 0 -Post Debridement Size (cm) - Depth 0 -Total Square Cm 0 -Wound/Ulcer Outcome Healed- Epithelialized Pain Scale: 0-10 Numeric Is Patient Pain Free? Yes Yes Wound debrided: Lower extremity posterior Type of Debridement: Excisional debridement Anesthesia Used: 4% Lidocaine Solution Depth: Down to and including healthy tissue, in the subcutaneous layer Percentage of wound debrided: 100 Instrument Used: 3mm curette Tissue Removed: Slough and devitalized tissue Severity: Fat Layer Exposed Amount of bleeding with debridement: Mild Bleeding Controlled with: Pressure Patient tolerated procedure well - Additional Wound Wound debrided: Right lower extremity medial Type of Debridement: Excisional debridement Anesthesia Used: 4% Lidocaine Solution Depth: Down to and including healthy tissue, in the subcutaneous layer Percentage of wound debrided: 100 Instrument Used: 3mm curette Tissue Removed: Slough and tissue Severity: Fat Layer Exposed Amount of bleeding with debridement: Mild Bleeding Controlled with: Pressure Patient tolerated procedure: Patient tolerated procedure well - Additional Wound Wound debrided: Middle finger Type of Debridement: Selective debridement Anesthesia Used: 4% Lidocaine Solution Depth: Down to and including healthy tissue Percentage of wound debrided: 100 Tissue Removed: Devitalized tissue Severity: Limited To Skin Breakdown Amount of bleeding with debridement: Mild Bleeding Controlled with: Pressure Patient tolerated procedure: Patient tolerated procedure well Assessment/Plan Active Problems (Last Reviewed 01/17/19 @ 15:37 by ALONA Chase) Peripheral neuropathy (Chronic) Ulcer of right lower extremity with fat layer exposed (Chronic) Open wound of finger of left hand (Acute) Traumatic, penetrating. Peripheral arterial occlusive disease (Chronic) SFA PTCA/Stent 08/2012; angioplasty and stenting- RSFA @ [facility] per Dr. Zapata; Stent to distal RSFA to popliteal, Stent-Prox RSFA 10/23/13 Assessment: Same as above Plan: Debridement done as documented above. Procedure was well-tolerated. Promogran with Adaptic over top to right lower extremity ulcers. Leave in place for a week. Adaptic and gauze to left middle finger wound. Change daily. Saurabh wraps for edema management. Increase protein intake. His questions were answered and he was advised to call with any further questions or concerns. Follow-up in a week. This note was generated with [employer] dictation software. It may contain incorrect words, spelling, and punctuation that were not noted in checking the note before signing. Code Visit [id number]: [id number] Luz subq tissue 20 sq cm/<
[2019-03-07 12:08] VITALS: BP 133/88; PULSE 90; RESP 16; TEMP 36; BMI 20.2
--- NOTE | 2019-03-07 13:02 | PN.PCM_ITS ---
(1) Ulcer of right lower extremity with fat layer exposed Status: Chronic Current Visit: Yes Code(s): L97.912 - Non-pressure chronic ulcer of unspecified part of right lower leg with fat layer exposed (2) Peripheral arterial occlusive disease Status: Chronic Current Visit: Yes Code(s): I77.9 - Disorder of arteries and arterioles, unspecified Comment: SFA PTCA/Stent 08/2012; angioplasty and stenting- RSFA @ [facility] per Dr. Zapata; Stent to distal RSFA to popliteal, Stent-Prox RSFA 10/23/13 (3) Peripheral neuropathy Status: Chronic Current Visit: Yes Code(s): G62.9 - Polyneuropathy, unspecified (4) Open wound of finger of left hand Status: Acute Current Visit: Yes Qualifiers: Encounter type: initial encounter Qualified Code(s): S61.209A - Unspecified open wound of unspecified finger without damage to nail, initial encounter Code(s): S61.209A - Unspecified open wound of unspecified finger without damage to nail, initial encounter Comment: Traumatic, penetrating. Type of Wound Date of Service: 03/07/19 Chief Complaint: Chronic right heel ulceration, right posterior lower leg ulcer History of Wound: Joaquin is an 83-year-old male who presents to the clinic today with complaints of a right posterior lower extremity ulcer, as well as ulceration of the right heel. He has a past medical history significant for CAD, PVD, peripheral neuropathy, and arthritis. He has a history of angioplasty and stent placement in his right superficial femoral artery and right popliteal artery. He continues to see Dr. Rose for vascular management. He reports his right posterior lower extremity ulcer onset 2 to 3 months ago, possibly after bumping into an object in his home. He has not been using any topical or ldnh-gjk-[id number] treatment for his right posterior lower extremity ulceration. He reports moderate drainage from the ulcer that is thin and light yellow in color. He denies any purulent drainage, increasing pain, redness, swelling, foul odor, or other signs of infection from the right posterior lower extremity ulcer. Patient also reports painful ulcerations of his right heel, which have been present for the past year. He was previously seen at the wound center for management of these ulcers. In the past, his cultures were positive for Maria M, and he was treated with antifungal topical treatment. He also had previously improved with use of orthotics, but reports that he is unable to tolerate these at this time. He was previously on gabapentin, for management of his chronic peripheral neuropathy. However his primary care provider has since discontinued his gabapentin. He rates his pain 8 out of 10 and reports pain is intermittent and occurs with pressure/weightbearing. He is ambulatory with a cane. He denies any drainage from his ulcerations of his right heel. He denies any swelling or signs or symptoms of infection. Denies any nausea, vomiting, diarrhea. He denies any fever or chills. Progress of Wound: Left middle finger is healed. Right leg ulcers with no change. - Physical Exam Vital Signs Temp Pulse Resp BP 96.8 F L 90 16 133/88 H 03/07/19 12:08 03/07/19 12:08 03/07/19 12:08 03/07/19 12:08 General: Alert, Oriented x3, Cooperative, No apparent distress HEENT: Atraumatic, Normocephalic Oral: Moist Mucosa Neck: Supple Lungs: Normal air movement Extremities: No cyanosis, Edema Skin: Ulcer/ Wound Wound Measurements and Assessment WC - Nurse 1 - General Ulcer Measurement Start: 02/21/19 10:24 Freq: Status: Active Protocol: Activity Type Activity Date Activity User E-Sign Co-Sign Detail Recorded Client Recorded Date Recorded By Document 03/07/19 12:08 [id number] 03/07/19 12:12 03/07/19 12:08 Wound Center Nurse 1 [Ulcer Assessment] #10 left middle finger tip -Combined with other wound No -Current Size (cm) - Length 0.1 -Current Size (cm) - Width 0.1 -Current Size (cm) - Depth 0.1 -Total Square Cm 0.01 -Photo Taken No -Tunneling No -Undermining/Tunneling No -Circular Undermining No -Temperature (Michelle-wound Skin No Abnormality Appearance) (Pt Warm) -Tenderness on Palpation (Michelle-wound No Skin Appearance) -Ulcer Cleansing Rinsed/ Irrigated with Saline -Foul Odor after Cleansing No -Anesthetic Used 4% Lidocaine Solution #9 right medial LE -Combined with other wound No -Current Size (cm) - Length 0.1 -Current Size (cm) - Width 0.1 -Current Size (cm) - Depth 0.1 -Total Square Cm 0.01 -Anesthetic Used 4% Lidocaine Solution #8 Right posterior LE -Combined with other wound No -Current Size (cm) - Length 0.1 -Current Size (cm) - Width 0.1 -Current Size (cm) - Depth 0.1 -Total Square Cm 0.01 -Photo Taken No -Tunneling No -Undermining/Tunneling No -Circular Undermining No [Edema Assessment] -Lower Limb Edema Present NA WC - Nurse 2 - General Ulcer CM Notes Start: 02/21/19 10:24 Freq: Status: Active Protocol: Activity Type Activity Date Activity User E-Sign Co-Sign Detail Recorded Client Recorded Date Recorded By Document 03/07/19 12:20 MW [id number] 03/07/19 12:25 MW 03/07/19 12:20 Wound Center Nurse 2 [Procedure/Treatment] #10 left middle finger tip -Time 12:24 -Correct Patient Yes -Correct Side, Site, Position Yes -Correct Procedure Yes -Procedure Performed No -Post Debridement Size (cm) - Length 0 -Post Debridement Size (cm) - Width 0 -Post Debridement Size (cm) - Depth 0 -Total Square Cm 0 -Wound/Ulcer Outcome Healed- Epithelialized #9 right medial LE -Time 12:20 -Correct Patient Yes -Correct Side, Site, Position Yes -Correct Procedure Yes -Procedure Performed Yes -Type of Procedure Debridement -Clinical Debridement Selective -Post Debridement Size (cm) - Length 0.4 -Post Debridement Size (cm) - Width 0.2 -Post Debridement Size (cm) - Depth 0.1 -Total Square Cm 0.08 -Wound/Ulcer Outcome Not Healed -Ulcer Cleansing Rinsed/ Irrigated with Saline -Foul Odor after Cleansing No -Bioengineered Tissue No -Bleeding Controlled with Pressure -Offloading No -Treatment Response Procedure Tolerated Well #8 Right posterior LE -Time 12:23 -Correct Patient Yes -Correct Side, Site, Position Yes -Correct Procedure Yes -Procedure Performed Yes -Type of Procedure Debridement -Clinical Debridement Selective -Post Debridement Size (cm) - Length 1.0 -Post Debridement Size (cm) - Width 0.2 -Post Debridement Size (cm) - Depth 0.1 -Total Square Cm 0.20 -Wound/Ulcer Outcome Not Healed -Ulcer Cleansing Rinsed/ Irrigated with Saline -Foul Odor after Cleansing No -Bioengineered Tissue No -Bleeding Controlled with Pressure -Offloading No -Treatment Response Procedure Tolerated Well [See Physician Procedure note for Specifics] Pain Scale: 0-10 Numeric [Pain] -Is Patient Pain Free? Yes Neurological: Cranial nerves II-XII grossly intact Psych/Mental Status: Normal Affect Debridement Note Post-Debridement Measurements/Treatment WC - Nurse 2 - General Ulcer CM Notes Start: 02/21/19 10:24 Freq: Status: Active Protocol: Activity Type Activity Date Activity User E-Sign Co-Sign Detail Recorded Client Recorded Date Recorded By Document 02/21/19 11:06 MW [id number] 02/21/19 11:11 MW Document 02/28/19 12:02 MW [id number] 02/28/19 12:11 MW Document 03/07/19 12:20 MW [id number] 03/07/19 12:25 MW 02/21/19 02/28/19 03/07/19 11:06 12:02 12:20 Wound Center Nurse 2 #10 left middle finger tip -Time 11:07 12:09 12:24 -Correct Patient Yes Yes Yes -Correct Side, Site, Position Yes Yes Yes -Correct Procedure Yes Yes Yes -Procedure Performed No Yes No -Type of Procedure Debridement -Clinical Debridement Selective -Post Debridement Size (cm) - Length 0.8 0.1 0 -Post Debridement Size (cm) - Width 1.2 0.1 0 -Post Debridement Size (cm) - Depth 0.1 0.1 0 -Total Square Cm 0.96 0.01 0 -Wound/Ulcer Outcome Not Healed Not Healed Healed- Epithelialized -Ulcer Cleansing Rinsed/ Rinsed/ Irrigated with Irrigated with Saline Saline -Foul Odor after Cleansing No No -Bioengineered Tissue No -Bleeding Controlled with Pressure Pressure -Offloading No No -Treatment Response Procedure Procedure Tolerated Well Tolerated Well #9 right medial LE -Time 11: 12:03 12:20 -Correct Patient Yes Yes Yes -Correct Side, Site, Position Yes Yes Yes -Correct Procedure Yes Yes Yes -Procedure Performed Yes Yes Yes -Type of Procedure Debridement Debridement Debridement -Clinical Debridement Subcutaneous Subcutaneous Selective -Post Debridement Size (cm) - Length 0.4 0.4 0.4 -Post Debridement Size (cm) - Width 0.4 0.2 0.2 -Post Debridement Size (cm) - Depth 0.1 0.1 0.1 -Total Square Cm 0.16 0.08 0.08 -Wound/Ulcer Outcome Not Healed Not Healed Not Healed -Ulcer Cleansing Rinsed/ Rinsed/ Rinsed/ Irrigated with Irrigated with Irrigated with Saline Saline Saline -Foul Odor after Cleansing No No No -Bioengineered Tissue No No No -Bleeding Controlled with Pressure Pressure Pressure -Offloading No No No -Treatment Response Procedure Procedure Procedure Tolerated Well Tolerated Well Tolerated Well #8 Right posterior LE -Time 11:08 12:03 12:23 -Correct Patient Yes Yes Yes -Correct Side, Site, Position Yes Yes Yes -Correct Procedure Yes Yes Yes -Procedure Performed Yes Yes Yes -Type of Procedure Debridement Debridement Debridement -Clinical Debridement Subcutaneous Subcutaneous Selective -Post Debridement Size (cm) - Length 1.5 1.0 1.0 -Post Debridement Size (cm) - Width 0.4 0.3 0.2 -Post Debridement Size (cm) - Depth 0.1 0.1 0.1 -Total Square Cm 0.60 0.30 0.20 -Wound/Ulcer Outcome Not Healed Not Healed Not Healed -Ulcer Cleansing Rinsed/ Rinsed/ Rinsed/ Irrigated with Irrigated with Irrigated with Saline Saline Saline -Foul Odor after Cleansing No No No -Bioengineered Tissue No No No -Bleeding Controlled with Pressure Pressure Pressure -Offloading No No No -Treatment Response Procedure Procedure Procedure Tolerated Well Tolerated Well Tolerated Well #7 Right heel -Time 11:09 -Correct Patient Yes -Correct Side, Site, Position Yes -Correct Procedure Yes -Procedure Performed No -Post Debridement Size (cm) - Length 0 -Post Debridement Size (cm) - Width 0 -Post Debridement Size (cm) - Depth 0 -Total Square Cm 0 -Wound/Ulcer Outcome Healed- Epithelialized Pain Scale: 0-10 Numeric Is Patient Pain Free? Yes Yes Yes Wound debrided: Right leg ( medial ) Type of Debridement: Selective debridement Anesthesia Used: 4% Lidocaine Solution Depth: Down to and including healthy tissue Percentage of wound debrided: 100 Tissue Removed: Devitalized tissue Severity: Limited To Skin Breakdown Amount of bleeding with debridement: Mild Bleeding Controlled with: Pressure Patient tolerated procedure well - Additional Wound Wound debrided: Right leg ( Posterior ) Type of Debridement: Selective debridement Anesthesia Used: 4% Lidocaine Solution Depth: Down to and including healthy tissue, in the subcutaneous layer Percentage of wound debrided: 100 Tissue Removed: Slough and devitalized tissue Severity: Fat Layer Exposed Amount of bleeding with debridement: Mild Bleeding Controlled with: Pressure Patient tolerated procedure: Patient tolerated procedure well Assessment/Plan Active Problems (Last Reviewed 03/06/19 @ 10:42 by Sara Junior) Peripheral neuropathy (Chronic) Ulcer of right lower extremity with fat layer exposed (Chronic) Open wound of finger of left hand (Acute) Traumatic, penetrating. Peripheral arterial occlusive disease (Chronic) SFA PTCA/Stent 08/2012; angioplasty and stenting- RSFA @ [facility] per Dr. Zapata; Stent to distal RSFA to popliteal, Stent-Prox RSFA 10/23/13 Assessment: Same as above Plan: Debridement done as documented above. Procedure was well-tolerated. Promogran with Adaptic over top to right lower extremity ulcers. Come in 1 - 2x weekly for a nurse visit/ change. Saurabh wraps for edema management. Increase protein intake. His questions were answered and he was advised to call with any further questions or concerns. Follow-up in 2 weeks with me. This note was generated with [employer] dictation software. It may contain incorrect words, spelling, and punctuation that were not noted in checking the note before signing. Code Visit [id number]: [id number] Luz subq tissue 20 sq cm/<
[2019-03-13 15:06] VITALS: BP 156/85; PULSE 60; RESP 18; TEMP 36.2; BMI 20.2
== END 2019-03-16 23:59 ==
LOC: WC 15:00
PROVIDERS: Family Provider Family Medicine; PCP Family Medicine; Visit Provider Nurse Practitioner Family
DX: I73.9 Peripheral vascular disease, unspecified (principal); G62.9 Polyneuropathy, unspecified; L97.412 Non-pressure chronic ulcer of right heel and midfoot with fat layer exposed; M19.90 Unspecified osteoarthritis, unspecified site; I25.10 Atherosclerotic heart disease of native coronary artery without angina pectoris; L97.812 Non-pressure chronic ulcer of other part of right lower leg with fat layer exposed; S61.239A Puncture wound without foreign body of unspecified finger without damage to nail, initial encounter; W19.XXXA Unspecified fall, initial encounter
CPT/HCPCS: 11042; 97597; 99212; G0463

== ENCOUNTER 2019-03-21 11:45 | Outpatient (RCR) | payer MEDICARE, OTHER, SELFPAY ==
[2019-03-17 01:10] VITALS: BP 156/85; PULSE 60; RESP 18; TEMP 36.2
[2019-03-18 14:18] VITALS: BP 150/73; PULSE 61; RESP 18; TEMP 36.2; BMI 20.2
[2019-03-21 12:10] VITALS: BP 176/96; PULSE 80; RESP 20; TEMP 36.1; BMI 20.2
--- NOTE | 2019-03-21 16:17 | PN.PCM_ITS ---
(1) Ulcer of right lower extremity with fat layer exposed Status: Chronic Current Visit: Yes Code(s): L97.912 - Non-pressure chronic ulcer of unspecified part of right lower leg with fat layer exposed (2) Peripheral neuropathy Status: Chronic Current Visit: No Code(s): G62.9 - Polyneuropathy, unspecified (3) Peripheral arterial occlusive disease Status: Chronic Current Visit: Yes Code(s): I77.9 - Disorder of arteries and arterioles, unspecified Comment: SFA PTCA/Stent 08/2012; angioplasty and stenting- RSFA @ [facility] per Dr. Zapata; Stent to distal RSFA to popliteal, Stent-Prox RSFA 10/23/13 Type of Wound Date of Service: 03/21/19 Chief Complaint: Chronic right heel ulceration, right posterior lower leg ulcer History of Wound: Joaquin is an 83-year-old male who presents to the clinic today with complaints of a right posterior lower extremity ulcer, as well as ulceration of the right heel. He has a past medical history significant for CAD, PVD, peripheral neuropathy, and arthritis. He has a history of angioplasty and stent placement in his right superficial femoral artery and right popliteal artery. He continues to see Dr. Rose for vascular management. He reports his right posterior lower extremity ulcer onset 2 to 3 months ago, possibly after bumping into an object in his home. He has not been using any topical or ygyr-ibo-gozvofg treatment for his right posterior lower extremity ulceration. He reports moderate drainage from the ulcer that is thin and light yellow in color. He denies any purulent drainage, increasing pain, redness, swelling, foul odor, or other signs of infection from the right posterior lower extremity ulcer. Patient also reports painful ulcerations of his right heel, which have been present for the past year. He was previously seen at the wound center for management of these ulcers. In the past, his cultures were positive for Maria M, and he was treated with antifungal topical treatment. He also had previously improved with use of orthotics, but reports that he is unable to tolerate these at this time. He was previously on gabapentin, for management of his chronic peripheral neuropathy. However his primary care provider has since discontinued his gabapentin. He rates his pain 8 out of 10 and reports pain is intermittent and occurs with pressure/weightbearing. He is ambulatory with a cane. He denies any drainage from his ulcerations of his right heel. He denies any swelling or signs or symptoms of infection. Denies any nausea, vomiting, diarrhea. He denies any fever or chills. Progress of Wound: Healed. No new concerns at this time. - Physical Exam Vital Signs Temp Pulse Resp BP 96.9 F L 80 20 H 176/96 H 03/21/19 12:10 03/21/19 12:10 03/21/19 12:10 03/21/19 12:10 General: Alert, Oriented x3, Cooperative, No apparent distress HEENT: Atraumatic, Normocephalic Neck: Supple Lungs: Normal air movement Extremities: No cyanosis Wound Measurements and Assessment WC - Nurse 1 - General Ulcer Measurement Start: 03/18/19 14:18 Freq: Status: Active Protocol: Activity Type Activity Date Activity User E-Sign Co-Sign Detail Recorded Client Recorded Date Recorded By Document 03/21/19 12:10 DL [id number] 03/21/19 12:20 DL 03/21/19 12:10 Wound Center Nurse 1 [Ulcer Assessment] #9 right medial LE -Current Size (cm) - Length 0 -Current Size (cm) - Width 0 -Current Size (cm) - Depth 0 -Total Square Cm 0 -Photo Taken Yes -Exudate Amt None Present -Wound Margin Flat & Intact -Granulation Amt Large (67-100%) -Granulation Quality [place] -Structure Exposed N/A -Texture (Michelle-wound Skin Appearance) Scarring -Moisture (Michelle-wound Skin Appearance Dry/Scaly ) -Color (Michelle-wound Skin Appearance) Hemosiderin Staining -Temperature (Michelle-wound Skin No Abnormality Appearance) (Pt Warm) -Tenderness on Palpation (Michelle-wound No Skin Appearance) -Ulcer Cleansing Rinsed/ Irrigated with Saline -Foul Odor after Cleansing No #8 Right posterior LE -Current Size (cm) - Length 0 -Current Size (cm) - Width 0 -Current Size (cm) - Depth 0 -Total Square Cm 0 -Photo Taken Yes -Exudate Amt None Present -Wound Margin Flat & Intact -Granulation Amt Large (67-100%) -Granulation Quality [place] -Necrosis Amt None Present (0 %) -Structure Exposed N/A -Texture (Michelle-wound Skin Appearance) No Abnormality -Moisture (Michelle-wound Skin Appearance Dry/Scaly ) -Color (Michelle-wound Skin Appearance) Hemosiderin Staining -Temperature (Michelle-wound Skin No Abnormality Appearance) (Pt Warm) -Tenderness on Palpation (Michelle-wound No Skin Appearance) -Ulcer Cleansing Rinsed/ Irrigated with Saline -Foul Odor after Cleansing No [Edema Assessment] -Right Calf (cm) 24.5 -Right Ankle (cm) 18.2 WC - Nurse 2 - General Ulcer CM Notes Start: 03/18/19 14:18 Freq: Status: Active Protocol: Activity Type Activity Date Activity User E-Sign Co-Sign Detail Recorded Client Recorded Date Recorded By Document 03/21/19 12:23 DL [id number] 03/21/19 12:25 DL 03/21/19 12:23 Wound Center Nurse 2 [Procedure/Treatment] #9 right medial LE -Time 12:23 -Correct Patient Yes -Correct Side, Site, Position Yes -Correct Procedure Yes -Procedure Performed No -Post Debridement Size (cm) - Length 0 -Post Debridement Size (cm) - Width 0 -Post Debridement Size (cm) - Depth 0 -Total Square Cm 0 -Wound/Ulcer Outcome Healed- Epithelialized #8 Right posterior LE -Time 12:24 -Correct Patient Yes -Correct Side, Site, Position Yes -Correct Procedure Yes -Procedure Performed No -Post Debridement Size (cm) - Length 0 -Post Debridement Size (cm) - Width 0 -Post Debridement Size (cm) - Depth 0 -Total Square Cm 0 -Wound/Ulcer Outcome Healed- Epithelialized [See Physician Procedure note for Specifics] Pain Scale: 0-10 Numeric [Pain] -Is Patient Pain Free? Yes Neurological: Cranial nerves II-XII grossly intact Psych/Mental Status: Normal Affect Debridement Note Post-Debridement Measurements/Treatment - Nurse 2 - General Ulcer CM Notes Start: 03/18/19 14:18 Freq: Status: Active Protocol: Activity Type Activity Date Activity User E-Sign Co-Sign Detail Recorded Client Recorded Date Recorded By Document 03/21/19 12:23 DL [id number] 03/21/19 12:25 DL 03/21/19 12:23 Wound Center Nurse 2 #9 right medial LE -Time 12:23 -Correct Patient Yes -Correct Side, Site, Position Yes -Correct Procedure Yes -Procedure Performed No -Post Debridement Size (cm) - Length 0 -Post Debridement Size (cm) - Width 0 -Post Debridement Size (cm) - Depth 0 -Total Square Cm 0 -Wound/Ulcer Outcome Healed- Epithelialized #8 Right posterior LE -Time 12:24 -Correct Patient Yes -Correct Side, Site, Position Yes -Correct Procedure Yes -Procedure Performed No -Post Debridement Size (cm) - Length 0 -Post Debridement Size (cm) - Width 0 -Post Debridement Size (cm) - Depth 0 -Total Square Cm 0 -Wound/Ulcer Outcome Healed- Epithelialized Pain Scale: 0-10 Numeric Is Patient Pain Free? Yes No debridement was completed today Assessment/Plan Active Problems (Last Reviewed 03/06/19 @ 10:42 by Sara Junior) Ulcer of right lower extremity with fat layer exposed (Chronic) Peripheral arterial occlusive disease (Chronic) SFA PTCA/Stent 08/2012; angioplasty and stenting- RSFA @ [facility] per Dr. Zapata; Stent to distal RSFA to popliteal, Stent-Prox RSFA 10/23/13 Assessment: Same as above Plan: No debridement completed today. Ulcer is healed. Aquaphor daily to twice daily to bilateral lower extremities. Keep area protected. His questions were answered and he was advised to call with any further questions or concerns. Discharge from the wound clinic. This note was generated with [employer] dictation software. It may contain incorrect words, spelling, and punctuation that were not noted in checking the note before signing. Code Visit Office Visits / Consults: [id number] OV L3 Est
== END 2019-04-16 23:59 ==
LOC: WC 11:45
PROVIDERS: Family Provider Family Medicine; PCP Family Medicine; Visit Provider Nurse Practitioner Family
DX: Z09 Encounter for follow-up examination after completed treatment for conditions other than malignant neoplasm (principal); I73.9 Peripheral vascular disease, unspecified; G62.9 Polyneuropathy, unspecified; I25.10 Atherosclerotic heart disease of native coronary artery without angina pectoris; M19.90 Unspecified osteoarthritis, unspecified site
CPT/HCPCS: 99212; G0463

== ENCOUNTER → 2019-03-25 13:02 | Outpatient (CLI) | payer MEDICARE, OTHER, SELFPAY ==
[2019-03-21 12:10] VITALS: BMI 20.2
[2019-03-25 15:34] LABS: Absolute Lymphocyte Count 0.53 X10^3/uL (0.83-4.51); Absolute Neutrophil Count 4.5 X10^3/uL (2.0-7.7); Basophil# 0.03 X10^3/uL; Basophil% 0.5 % (0-1); Eosinophil# 0.15 X10^3/uL; Eosinophils% 2.6 % (0-5); Hemoglobin 11.7 g/dL (13.0-16.5); Lymphocyte # 0.53 X10^3/ul (4.0); Mean Corp Hgb Conc 31.6 g/dL (32-36); Mean Corpuscular Hgb 31.7 pg (27.0-32.0); Mean Corpuscular Volume 100.3 fL (80-94); Mean Platelet Vol. 9.5 fl (6.2-12.0); Monocyte# 0.68 X10^3/uL; Monocyte% 11.6 % (0-10); NRBC Flagged by Analyzer 0 % (0-5); Neutrophil # 4.46 X10^3/uL (2.7-7.7); POSITIVE DIFFERENTIAL YES; Platelet Count 321 K/mm3 (150-450); RBC Distribution Width CV 15.4 % (11.6-14.6); RBC Distribution Width SD 56.8 fl (35.1-43.9); Red Blood Count 3.69 M/mm3 (4.6-6.2); White Blood Count 5.9 K/mm3 (4.4-11.0)
[2019-03-25 15:56] LABS: Vitamin B12 478 pg/mL (211-911)
[2019-03-25 15:58] LABS: ALB/GLOB Ratio 0.9 RATIO (0.9-2.4); AST(SGOT) 32 U/L (15-37); Alanine Aminotransfer ALT/SGPT 34 U/L (16-61); Albumin, Serum 3.1 g/dL (3.2-5.0); Alkaline Phosphatase 74 U/L (45-117); Anion Gap 4 (5-15); BUN 23 mg/dL (7-18); BUN/Creat Ratio 28.3 RATIO (10-20); Chloride 107 mmol/L (98-107); Creatinine, Serum 0.81 mg/dL (0.70-1.30); EST Glomerular Filtration Rate 96 mL/min (>60); Est Glom Filt Rate - Afr Amer 116 mL/min (>60); Globulin 3.4 g/dL (2.2-4.2); Glucose 88 mg/dL (74-106); Protein, Total 6.5 g/dL (6.4-8.2); Sodium Level 143 mmol/L (136-145); Thyroid Stim Hormone (TSH) 0.59 uIU/mL (0.358-3.74)
[2019-03-25 16:04] LABS: Differential Indicated SCAN CRITERIA MET
[2019-03-25 16:12] LABS: Platelet Estimate ADEQUATE (ADEQ); Platelet Morphology LARGE; Red Cell Morphology N CHROM NORMAL (NORM C&C)
[2019-03-25 16:13] LABS: Anisocytosis 1+; Macrocytosis 1+
== END ==
PROVIDERS: Family Provider Family Medicine; PCP Family Medicine; Referring Provider Family Medicine; Visit Provider Family Medicine
DX: R41.89 Other symptoms and signs involving cognitive functions and awareness (principal); E78.00 Pure hypercholesterolemia, unspecified; F32.9 Major depressive disorder, single episode, unspecified; I10 Essential (primary) hypertension
CPT/HCPCS: 36415; 80053; 82607; 84443; 85025

== ENCOUNTER → 2019-04-30 16:42 | Outpatient (CLI) | payer MEDICARE, OTHER, SELFPAY ==
[2019-04-30 18:05] LABS: Absolute Lymphocyte Count 0.61 X10^3/uL (0.83-4.51); Absolute Neutrophil Count 3.8 X10^3/uL (2.0-7.7); Basophil# 0.03 X10^3/uL; Basophil% 0.6 % (0-1); Eosinophil# 0.25 X10^3/uL; Eosinophils% 4.7 % (0-5); Hematocrit 37.5 % (40-54); Hemoglobin 11.8 g/dL (13.0-16.5); Lymphocyte # 0.61 X10^3/ul (4.0); Lymphocyte % 11.6 % (19-41); Mean Corp Hgb Conc 31.5 g/dL (32-36); Mean Corpuscular Hgb 31.4 pg (27.0-32.0); Mean Corpuscular Volume 99.7 fL (80-94); Mean Platelet Vol. 9.5 fl (6.2-12.0); Monocyte# 0.59 X10^3/uL; Monocyte% 11.2 % (0-10); NRBC Flagged by Analyzer 0 % (0-5); Neutrophil # 3.77 X10^3/uL (2.7-7.7); Neutrophil % 71.5 % (47-70); Platelet Count 313 K/mm3 (150-450); RBC Distribution Width CV 15.8 % (11.6-14.6); RBC Distribution Width SD 58.1 fl (35.1-43.9); Red Blood Count 3.76 M/mm3 (4.6-6.2); White Blood Count 5.3 K/mm3 (4.4-11.0)
[2019-04-30 18:49] LABS: Anion Gap 3 (5-15); BUN 26 mg/dL (7-18); BUN/Creat Ratio 31.3 RATIO (10-20); Calcium,Total 9.5 mg/dL (8.5-10.1); Chloride 107 mmol/L (98-107); Creatinine, Serum 0.83 mg/dL (0.70-1.30); EST Glomerular Filtration Rate 94 mL/min (>60); Est Glom Filt Rate - Afr Amer 113 mL/min (>60); Glucose 80 mg/dL (74-106); Magnesium 2.4 mg/dL (1.6-2.6); Potassium 3.9 mmol/L (3.5-5.1); Sodium Level 142 mmol/L (136-145)
== END ==
PROVIDERS: Family Provider Family Medicine; PCP Family Medicine; Referring Provider Family Medicine; Visit Provider Family Medicine
DX: K62.3 Rectal prolapse (principal); R25.2 Cramp and spasm
CPT/HCPCS: 36415; 80048; 83735; 85025

== ENCOUNTER 2019-07-01 23:20 | Observation (INO) | payer MEDICARE, OTHER, SELFPAY ==
[2019-07-01 23:21] VITALS: BP 147/82; PULSE 62; RESP 18; TEMP 36.7; O2SAT 93; BMI 29.0
--- NOTE | 2019-07-01 23:23 | ED.RN ---
PULLED OLD MAXX FOR
--- NOTE | 2019-07-01 23:43 | EKG12_ITS ---
Test Reason : CHEST PAIN Blood Pressure : / mmHG Vent. Rate : 069 BPM Atrial Rate : 104 BPM P-R Int : 000 ms QRS Dur : 134 ms QT Int : 444 ms P-R-T Axes : 000 075 056 degrees QTc Int : 475 ms Sinus Rhythm with PAC's Right bundle branch block Abnormal ECG Confirmed by AUNDREA MONTES, MANUEL ([id number]), science editor GUNNAR TYSON ([id number]) on 07/08/2019 11:13:42 AM Referred By: GEETHA Confirmed By:JAIR GUILLAUME MD
--- NOTE | 2019-07-01 23:44 | ED.DCSUM_ITS ---
History of Present Illness Chief Complaint: Chest Pain Informant: Patient Narrative: Patient states he developed central substernal chest pressure approximately an hour ago. It resolved with 3 nitroglycerin at home. Currently he is pressure free. He has had this in the past remotely. None nothing recent. It appears his last stress test showed no acute ischemic findings approximately 4 years ago. Unsure when his last heart cath was. He does have cardiac stent. He also has peripheral vascular disease with multiple stents in his legs. He felt a little short of breath when the pressure came on. It came on at rest. Max severity was moderate. Patient took 4 baby aspirin and came in for further evaluation. He does have a history of atrial fibrillation remotely. He is not taking any blood thinners at this time due to a remote GI bleed with rectal prolapse. He was on Plavix remotely. - Past Medical History (1) Open wound of finger of left hand Status: Acute Comment: Traumatic, penetrating. (2) Ulcer of right heel Status: Acute (3) Atherosclerotic heart disease of [place] coronary artery without angina pectoris Status: Chronic Comment: SFA PTCA/Stent 08/2012; angioplasty and stenting- RSFA @ [facility] per Dr. Zapata; Stent to distal RSFA to popliteal, Stent-Prox RSFA 10/23/13 (4) Chronic pain of right heel Status: Chronic (5) Diastolic dysfunction Status: Chronic (6) Essential (primary) hypertension Status: Chronic (7) Hyperlipidemia Status: Chronic (8) Palpitations Status: Chronic (9) Peripheral arterial occlusive disease Status: Chronic Comment: SFA PTCA/Stent 08/2012; angioplasty and stenting- RSFA @ [facility] per Dr. Zapata; Stent to distal RSFA to popliteal, Stent-Prox RSFA 10/23/13 (10) Peripheral neuropathy Status: Chronic (11) Syncope Status: Chronic (12) Ulcer of right lower extremity with fat layer exposed Status: Chronic (13) History of coronary artery stent placement Status: Resolved Comment: PCI-Stent to mid RCA 08/06/04; cutting balloon angioplasty with TAMERA to mid RCA 02/19; LLU-Mlyxz-CVZ-of RCA 06/18/09; PCI/TAMERA to Ostial PDA and PCI-ISR RCA 09/03/13; PCi/TAMERA ISR of mid RCA 10/07/15; FFR mid LAD 10/08/15 Past Medical History - Allergies and Home Meds Allergies/Adverse Reactions: Allergies carisoprodol Allergy (Verified 07/01/19 23:23) Other itraconazole Allergy (Verified 07/01/19 23:23) Other Prior records reviewed: Yes Past Medical History: - - See problem list Surgical History: rotator cuff repair, tonsillectomy, - - The patient is undergone lumbar surgery in the past. He has a history of bilateral shoulder surgery. He has had coronary stents placed, and to proceed stenting was performed in the right lower extremity. Lives: With Family Smoking Status: Never smoker Alcohol: None Drugs: None Review of Systems General: Denies: Chills, Fever, Sweats Eyes: Denies: Visual changes - bilaterally, Diplopia ENT: Denies: Rhinorrhea, Sore throat Cardiovascular: Reports: Chest pain. Denies: Palpitations Respiratory: Reports: Dyspnea. Denies: Cough, Dyspnea on exertion Gastrointestinal: Denies: Abdominal pain, Nausea, Vomiting, Diarrhea, Melena, Hematochezia Genitourinary: Denies: Dysuria, Hematuria, Frequency Musculoskeletal: Denies: Back pain, Extremity Pain Skin: Denies: Rash, Wounds Neurological: Denies: Headache, Weakness, Numbness Physical Exam Vital Signs/Narrative: Vital Signs Temp Pulse Resp BP Pulse Ox 07/01/19 23:21 98.0 F 62 18 147/82 H 93 General: Well nourished, Well developed, No Acute Distress Head: Normocephalic, Atraumatic Eyes: Perrl, EOMI ENT: Moist mucous membranes, No rhinorrhea Neck: Supple, Nontender Cardiovascular: Regular rate, Regular rhythm, No murmurs Respiratory: No distress, CTA bilaterally, Chest nontender Abdomen: Soft, Nontender, Nondistended, Normal bowel sounds Back: Nontender, Normal Inspection Extremities: Nontender, No edema Skin: Normal color, No rash Neurological: Alert, Oriented x3, Cranial nerves II-XII grossly intact, Normal Strength, Normal Sensation Psychological: Normal affect, Normal Mood Diagnostic/Tx/Re-eval - Medical Decision Making EKG obtained shows sinus rhythm at a rate of 69 with marked PACs sinus arrhythmia. Patient currently asymptomatic. Already took aspirin at home. Lab work chest x-ray obtained. Lab work shows nothing acute. Mildly chronically elevated BUN. Mild chronic anemia unchanged from prior. Troponin negative. Chest x-ray shows chronic changes with nothing acute found. Please see dictation note for details. I discussed the case with the patient. He has a history of coronary artery disease with continuous pain for now relieved with nitro. He is comfortable being admitted for further cardiac evaluation. Have a low suspicion for PE or dissection. He remains pain-free. Discussed with hospitalist. Will be admitted. ED Disposition - Plan for ED Patient: Disposition: Acute Care Hospital [facility] Diagnosis: Chest pain, Premature atrial contractions
--- NOTE | 2019-07-01 23:52 | RAD_ITS ---
HISTORY: chest pain with sob EXAMINATION/TECHNIQUE: XR Chest 2 Views: COMPARISON: 02/14/2018 and 08/01/2016 FINDINGS: Cardiac telemetry leads in place. No significant change. Normal heart size. Right coronary artery stent. COPD with bilateral hyperinflation. On the frontal view, bilateral nipple shadows. No new or suspicious lesion. No vascular congestion, pleural effusion, or acute infiltrate. 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 Left shoulder surgical suture anchors. RAD/Chest PA and Lateral IMPRESSION: 1. No acute cardiopulmonary disease. No significant interval change. 2. COPD. at 0031 Reported and signed by: Keenan Conde MD Electronically Signed: Keenan Conde, at 0:29 EDT Tel , Service support ,
[2019-07-01 23:53] VITALS: O2SAT 99
[2019-07-02] VITALS (23 sets, daily range): BP systolic 101–177; BP diastolic 48–100; PULSE 55–88; RESP 12–18; TEMP 36.1–36.8; O2SAT 97–100; BMI 19.4; BMI 29.1
[2019-07-02 00:39] LABS: Hemoglobin 11.6 g/dL (13.0-16.5); Partial Thromboplast Time 28.8 Seconds (24.1-36.2)
[2019-07-02 00:40] LABS: Eosinophils% 4.2 % (0-5); Hematocrit 36.3 % (40-54); Lymphocyte % 11.8 % (19-41); Mean Corpuscular Hgb 32.2 pg (27.0-32.0); Mean Corpuscular Volume 100.8 fL (80-94); Mean Platelet Vol. 9.4 fl (6.2-12.0); Neutrophil % 71.2 % (47-70); POSITIVE COUNT NO; POSITIVE DIFFERENTIAL NO; POSITIVE MORPHOLOGY NO; Platelet Count 301 K/mm3 (150-450); RBC Distribution Width CV 14.6 % (11.6-14.6); RBC Distribution Width SD 54.3 fl (35.1-43.9)
[2019-07-02 00:41] LABS: Absolute Lymphocyte Count 0.71 X10^3/uL (0.83-4.51); Absolute Neutrophil Count 4.3 X10^3/uL (2.0-7.7); Basophil% 0.5 % (0-1); Lymphocyte # 0.71 X10^3/ul (4.0); Monocyte# 0.72 X10^3/uL; Neutrophil # 4.29 X10^3/uL (2.7-7.7)
[2019-07-02 00:42] LABS: Basophil# 0.03 X10^3/uL; Eosinophil# 0.25 X10^3/uL
[2019-07-02 00:53] LABS: Anion Gap 4 (5-15); BUN 31 mg/dL (7-18); BUN/Creat Ratio 35.3 RATIO (10-20); Calcium,Total 8.7 mg/dL (8.5-10.1); Chloride 106 mmol/L (98-107); Creatinine, Serum 0.88 mg/dL (0.70-1.30); EST Glomerular Filtration Rate 88 mL/min (>60); Est Glom Filt Rate - Afr Amer 106 mL/min (>60); Estimated Creatinine Clearance 56.39 ml/min; Glucose 123 mg/dL (74-106); Sodium Level 140 mmol/L (136-145)
--- NOTE | 2019-07-02 01:06 | PCM.HP.STD ---
Problem List (1) Chest pain Status: Acute (2) Peripheral neuropathy Status: Chronic (3) Chronic pain of right heel Status: Chronic (4) Premature atrial contractions Status: Acute (5) Diastolic dysfunction Status: Chronic (6) Hyperlipidemia Status: Chronic Qualifiers: (7) Palpitations Status: Chronic (8) Peripheral arterial occlusive disease Status: Chronic Comment: SFA PTCA/Stent 08/2012; angioplasty and stenting- RSFA @ [facility] per Dr. Zapata; Stent to distal RSFA to popliteal, Stent-Prox RSFA 10/23/13 (9) Essential (primary) hypertension Status: Chronic (10) Atherosclerotic heart disease of [place] coronary artery without angina pectoris Status: Chronic Qualifiers: Comment: SFA PTCA/Stent 08/2012; angioplasty and stenting- RSFA @ [facility] per Dr. Zapata; Stent to distal RSFA to popliteal, Stent-Prox RSFA 10/23/13 History of Present Illness Date of Admission: 07/02/19 Chief Complaint: chest pain The patient is a 83 year old M with a significant history of diastolic heart failure; CAD status post stent; PAD status post stent; and hypertension who presents at the emergency department with substernal chest pain that started while defecating. Associated with symptoms is shortness of breath. He rated his pain as 3 out of 10. His pain went away with taking 4 baby aspirin and nitroglycerin at home. Defecating aggravated his chest pain. At emergency department his pain was 0. His pain is nonradiating. Previously patient was Plavix that were discontinued because of rectal bleeding with rectal prolapse. Also patient was on anticoagulation for history of A. fib. He is not on any anticoagulation because of rectal prolapse with GI bleeding. He was on Plavix in the past. Past Medical History Past Medical History (Chronic Problems): Chronic Problems (Last Reviewed 07/02/19 @ 01:[address] Mario Sanchez MD) Peripheral neuropathy (Chronic) Chronic pain of right heel (Chronic) Diastolic dysfunction (Chronic) Hyperlipidemia (Chronic) Palpitations (Chronic) Peripheral arterial occlusive disease (Chronic) SFA PTCA/Stent 08/2012; angioplasty and stenting- RSFA @ [facility] per Dr. Zapata; Stent to distal RSFA to popliteal, Stent-Prox RSFA 10/23/13 Essential (primary) hypertension (Chronic) Atherosclerotic heart disease of [place] coronary artery without angina pectoris (Chronic) SFA PTCA/Stent 08/2012; angioplasty and stenting- RSFA @ [facility] per Dr. Zapata; Stent to distal RSFA to popliteal, Stent-Prox RSFA 10/23/13 Medical History: Medical History (Last Reviewed 07/02/19 @ 01:[address] Mario Sanchez MD) Diastolic dysfunction (Chronic) I51.89 Hyperlipidemia (Chronic) E78.5 Palpitations (Chronic) R00.2 Syncope (Inactive) Onset Date: 02/2018 R55 Peripheral arterial occlusive disease (Chronic) I77.9 SFA PTCA/Stent 08/2012; angioplasty and stenting- RSFA @ [facility] per Dr. Zapata; Stent to distal RSFA to popliteal, Stent-Prox RSFA 10/23/13 Essential (primary) hypertension (Chronic) I10 Atherosclerotic heart disease of [place] coronary artery without angina pectoris (Chronic) I25.10 SFA PTCA/Stent 08/2012; angioplasty and stenting- RSFA @ [facility] per Dr. 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 [Ecotrin] 81 mg PO QHS 03/08/17 Ferrous Gluconate 324 mg PO DAILY 02/14/18 Multivit-Min/FA/Lycopen/Lutein 1 tab PO DAILY 02/14/18 [Centrum Silver Men Tablet] Nitroglycerin 0.4 mg PO PRN PRN 02/14/18 lisinopril 20 mg tablet 20 mg PO DAILY #90 tab 10/04/18 Acetaminophen [Tylenol Extra 1,000 mg PO BID 10/29/18 Strength] Vitamin E 400 unit PO DAILY 10/29/18 Nitroglycerin 0.4 mg SL X1 02/14/19 duloxetine 30 mg capsule,delayed 30 mg PO DAILY 03/06/19 release naproxen 375 mg tablet 375 mg PO BID PRN 03/06/19 atorvastatin 20 mg tablet 20 mg PO QHS #90 tab 06/10/19 metoprolol succinate 25 mg 12.5 mg PO QHS #90 tab 06/14/19 tablet,extended release 24 hr Celecoxib [Celebrex] 100 mg PO BID 07/01/19 Surgical History: Surgical History (Last Reviewed 07/02/19 @ 01:[address] Mario Sanchez MD) History of coronary artery stent placement (Resolved) Onset Date: 10/07/15 Z95.5 PCI-Stent to mid RCA 08/06/04; cutting balloon angioplasty with TAMERA to mid RCA 02/19; GLQ-Epxyn-YML-of RCA 06/18/09; PCI/TAMERA to Ostial PDA and PCI-ISR RCA 09/03/13; PCi/TAMERA ISR of mid RCA 10/07/15; FFR mid LAD 10/08/15 History of angioplasty of peripheral vessel Onset Date: 10/23/13 Z98.62 Right Femoral Artery PTCA/Stent 08/2012; angioplasty and stenting of the Rt SFA @ [facility] per Dr. Zapata; Stent to distal RSFA to popliteal, Stent Rt. Proximal SFA 10/23/13 History of back surgery Z98.890 History of hernia repair Z98.890, Z87.19 History of prostatectomy Z90.79 with radiation History of shoulder surgery Z98.890 History of tonsillectomy Z90.89 Surgical History: rotator cuff repair, tonsillectomy, - - The patient is undergone lumbar surgery in the past. He has a history of bilateral shoulder surgery. He has had coronary stents placed, and to proceed stenting was performed in the right lower extremity. Psychiatric History: No pertinent psych hx Lives: With Family Smoking Status: Former smoker - WHILE AT [employer] Alcohol: None Drugs: None Review of Systems Constitutional: Denies: Chills, Fever, Weight Change HEENT: Denies: Head Aches, Sinus Congestion, Sinus Drainage Cardiovascular: Reports: Chest Pain. Denies: Palpitations Respiratory: Reports: Shortness of Breath. Denies: Cough Gastrointestinal: Denies: Abdominal Pain, Nausea, Vomiting Genitourinary: Denies: Dysuria Musculoskeletal: Denies: Joint Pain, Joint Tenderness Skin: Denies: Rash, Wounds Neurological: Denies: Numbness, Tingling, Focal weakness Psychiatric: Denies: Anxiety, Depression, Homicidal Ideations, Suicidal Ideations Hematologic/ Lymphatic: Denies: Easy Bruising, Easy Bleeding VTE Information - Inpt Only VTE Present on Admission: No VTE Mechan Device Prophylaxis: SCD's VTE Pharm Prophylaxis ordered?: No Patient Problems: Active and Suspected Problems (Last Reviewed 07/02/19 @ 01:[address] Mario Sanchez MD) Chest pain (Acute) Premature atrial contractions (Acute) - Physical Exam Vitals/I&O's: Vital Signs Temp Pulse Resp BP Pulse Ox 98.0 F 62 18 147/82 H 99 07/01/19 23:21 07/01/19 23:21 07/01/19 23:21 07/01/19 23:21 07/01/19 23:53 Oxygen Delivery Method Room Air Weight: 81.647 kg Body Mass Index (BMI) 29.0 General: Alert, Oriented x3, Cooperative HEENT: Atraumatic, PERRLA, EOMI, Normocephalic Neck: Supple, Trachea Midline Lungs: Clear to auscultation, Normal air movement Cardiovascular: Regular rate, Regular Rhythm, Normal S1, Normal S2, No murmurs Abdomen: Bowel Sounds Present, Soft, Non Tender Extremities: No edema, Capillary Refill Less than 3 Seconds Skin: No rashes, No breakdown Musculoskeletal: No Tenderness to Palpation of Joints or Extremities Neurological: Cranial nerves II-XII grossly intact Psych/Mental Status: Normal Affect, Appropriate Laboratory Results 07/02/19 00:00: WBC 6.0, RBC 3.60 L, Hgb 11.6 L, Hct 36.3 L, MCV 100.8 H, MCH 32.2 H, MCHC 32.0, RDW Std Deviation 54.3 H, RDW Coeff of Ayesha 14.6, Plt Count 301, MPV 9.4, Immature Gran % (Auto) 0.300, Neut % (Auto) 71.2 H, Lymph % (Auto) 11.8 L, [place] % (Auto) 12.0 H, Eos % (Auto) 4.2, Baso % (Auto) 0.5, Absolute Neuts (auto) 4.3, Absolute Lymphs (auto) 0.71 L 07/02/19 00:00: Sodium 140, Potassium 4.0, Chloride 106, Carbon Dioxide 30.0, Anion Gap 4 L, BUN 31 H, Creatinine 0.88, Estim Creat Clear Calc 56.39, Est GFR (MDRD) Af Amer 106, Est GFR (MDRD) Non-Af 88, BUN/Creatinine Ratio 35.3 H, Glucose 123 H, Calcium 8.7, Troponin I 0.027 07/02/19 00:00: PT 13.0, INR 1.0, APTT 28.8 Assessment/Plan All Active Problems (Last Reviewed 07/02/19 @ 01:[address] Mario Sanchez MD) Chest pain (Acute) Premature atrial contractions (Acute) History of coronary artery stent placement (Resolved 10/07/15) The patient is a 83 year old M with a significant history of diastolic heart failure; CAD status post stent; PAD status post stent; and hypertension who presents emergency department with substernal chest pain Chest pain Place on a monitored bed at PCU CXR independently reviewed confirms no acute cardiopulmonary process. It showed hyperinflation consistent with COPD. EKG independently reviewed confirms sinus rhythm with multiple PACs. ASA 81 mg p.o. nightly continue SL NTG 0.4 mg prn as needed for chest pain We will check lipid panel. Statin: Home Lipitor; continued Serial cardiac enzymes Stat EKG as needed for chest pain Chemical stress test in the AM if the cardiac enzymes are negative Lisinopril and metoprolol continued Hypertension On presentation blood pressure was now within goal Metoprolol lisinopril continued Add PRN hydralazine Trend blood pressure medical blood pressure medications. Frequent PACs Potassium level is normal. Check magnesium level. Depression Cymbalta continued Chronic pain Celebrex and PRN naproxen continued DVT Prophylaxis SCD OBSV E&M: [id number] Initial observation care L2
--- NOTE | 2019-07-02 02:26 | EKG12_ITS ---
Test Reason : CP ADMIT Blood Pressure : / mmHG Vent. Rate : 065 BPM Atrial Rate : 057 BPM P-R Int : 146 ms QRS Dur : 142 ms QT Int : 462 ms P-R-T Axes : 069 075 060 degrees QTc Int : 480 ms Sinus bradycardia with Premature atrial complexes Right bundle branch block Abnormal ECG When compared with ECG of 31-JUL-2018 06:39, Premature atrial complexes are now Present T wave inversion no longer evident in Anterior leads Confirmed by EDDY VILLANUEVA ([id number]), manuscript editor FREDI GILL ([id number]) on 07/04/2019 9:30:51 AM Referred By: DR ALEMAN Confirmed By:EDDY VILLANUEVA
[2019-07-02 03:42] LABS: Magnesium 2.3 mg/dL (1.6-2.6)
[2019-07-02 03:47] LABS: Cholesterol 133 mg/dL (200); High Density Lipoprotein 61 mg/dL; Triglycerides 60 mg/dL; Very Low Density Lipoprotein 12 mg/dL (5-40)
[2019-07-02] MEDS: Lisinopril 20 MG Tablet PO (06:25)
[2019-07-02] MEDS: Aspirin E.C. 81 MG Tablet PO (06:25)
--- NOTE | 2019-07-02 07:25 | ECHOD_ITS ---
Reason For Study: CHEST PAIN Procedure This was a 2D Doppler, Color Flow transthoracic echocardiogram. The study was technically difficult. Due to boy habitus, poor parasternal accoustic windows. Exam performed portable in patient room. Left Ventricle Normal LV size. Left ventricular systolic function is lower limits of normal. The estimated ejection fraction is 53 %. Stage 2 diastolic dysfunction. Mild segmental systolic dysfunction (see wall motion). Infero-Basal: Akinetic. Atria Normal left atrium. Normal right atrium. Mitral Valve Normal mitral valve. Trivial eccentric mitral valve insufficiency. Tricuspid Valve Normal tricuspid valve. Mild tricuspid valve insufficiency. Great Vessels Normal aortic root. The pulmonary artery is normal size. Normal inferior vena cava. Pericardium/Pleural No pericardial effusion. MMode/2D Measurements & Calculations LVIDd: 4.8 cm IVSd: 1.1 cm Ao root diam: 2.8 cm LVIDs: 3.4 cm LVPWd: 1.1 cm RVDd: 3.1 cm FS: 28.8 % LAV(MOD-bp): 65.1 ml LA A4 area: 17.4 cm2 RA A4 area: 13.7 cm2 LAV(MOD-bp) Indexed: 40.5 ml/m2 LAV(MOD-sp2): 66.2 ml LAV(MOD-sp4): 50.0 ml Time Measurements MV dec time: 0.19 sec Doppler Measurements & Calculations MV E max maximo: 73.4 cm/sec Lat Peak E' Maximo: 10.4 cm/sec Med Peak E' Maximo: 7.7 cm/sec MV A max maximo: 47.1 cm/sec E/E' lat: 7.1 E/E' med: 9.6 MV E/A: 1.6 Ao V2 max: 98.0 cm/sec LV V1 max: 83.2 cm/sec PA V2 max: 93.4 cm/sec Ao max P.9 mmHg LV V1 max P.8 mmHg PI end-d maximo: 107.6 cm/sec Interpretation Summary Normal LV size. Left ventricular systolic function is lower limits of normal. The estimated ejection fraction is 53 %. Stage 2 diastolic dysfunction. Mild segmental systolic dysfunction (see wall motion). Ordering Physician: Moody Sadler Referring Physician: Ryan Shukla Performed By: Aimee Mcgregor, KAILA, RVT
[2019-07-02] MEDS: 0.9% Normal Saline 1,000 ML 75 ML IV (08:00)
--- NOTE | 2019-07-02 08:12 | CON.PCM_ITS ---
Reason for Consult Date of Consultation: 07/02/19 Reason for Consultation: Chest discomfort History of Present Illness: The patient is a 83 year old M . He has a history of coronary artery disease status post angioplasty and stenting of the right coronary artery ?2 in 2005 restenosis in 2011 and again in 2013 and 2015. He also has a significant history of peripheral vascular disease status post multiple stents. He was doing well until yesterday when he presented with chest discomfort. He called me from home complaining of chest tightness not associated with any nausea vomiting or diaphoresis. He was instructed to take some nitroglycerin and go to the emergency room. This improved his symptoms. He says that he has been fine over the last few weeks. He has been under some stress because his was in the hospital recently with a transient ischemic attack. He has had problems with wound healing. His gait has been not optimal due to his back and vascular problems. He denies any dizziness or diaphoresis near syncope or syncope he has been compliant with his medications. [] Past Medical History Allergies/Adverse Reactions: Allergies carisoprodol Allergy (Verified 07/01/19 23:23) Other itraconazole Allergy (Verified 07/01/19 23:23) Other Home Medications: Ambulatory Orders Medication Instructions Recorded Omeprazole [Prilosec] 20 mg PO DAILY 10/07/15 Aspirin E.C. [Ecotrin] 81 mg PO QHS 03/08/17 Ferrous Gluconate 324 mg PO DAILY 02/14/18 Multivit-Min/FA/Lycopen/Lutein 1 tab PO DAILY 02/14/18 [Centrum Silver Men Tablet] Nitroglycerin 0.4 mg PO PRN PRN 02/14/18 lisinopril 20 mg tablet 20 mg PO DAILY #90 tab 10/04/18 Acetaminophen [Tylenol Extra 1,000 mg PO BID 10/29/18 Strength] Vitamin E 400 unit PO DAILY 10/29/18 Nitroglycerin 0.4 mg SL X1 02/14/19 duloxetine 30 mg capsule,delayed 30 mg PO DAILY 03/06/19 release naproxen 375 mg tablet 375 mg PO BID PRN 03/06/19 atorvastatin 20 mg tablet 20 mg PO QHS #90 tab 06/10/19 metoprolol succinate 25 mg 12.5 mg PO QHS #90 tab 06/14/19 tablet,extended release 24 hr Celecoxib [Celebrex] 100 mg PO BID 07/01/19 Past Medical History (Chronic Problems): Chronic Problems (Last Reviewed 07/02/19 @ 01:[address] Mario Sanchez MD) Peripheral neuropathy (Chronic) Chronic pain of right heel (Chronic) Diastolic dysfunction (Chronic) Hyperlipidemia (Chronic) Palpitations (Chronic) Peripheral arterial occlusive disease (Chronic) SFA PTCA/Stent 08/2012; angioplasty and stenting- RSFA @ [facility] per Dr. Zapata; Stent to distal RSFA to popliteal, Stent-Prox RSFA 10/23/13 Essential (primary) hypertension (Chronic) Atherosclerotic heart disease of [place] coronary artery without angina pectoris (Chronic) SFA PTCA/Stent 08/2012; angioplasty and stenting- RSFA @ [facility] per Dr. Zapata; Stent to distal RSFA to popliteal, Stent-Prox RSFA 10/23/13 Surgical History: rotator cuff repair, tonsillectomy, - - The patient is undergone lumbar surgery in the past. He has a history of bilateral shoulder surgery. He has had coronary stents placed, and to proceed stenting was performed in the right lower extremity. Psychiatric History: No pertinent psych hx Lives: With Family Smoking Status: Former smoker Alcohol: None Drugs: None Review of Systems - Review of Systems General: Denies: Fever, Night Sweats, Fatigue HEENT: Denies: Vision Change Cardiovascular: Reports: Chest Discomfort, Chest Discomfort at Rest. Denies: Shortness of Breath, Orthopnea, PND, Peripheral Edema, Palpitations, Lightheadedness, Dizziness, Near Syncope, Syncope Respiratory: Denies: Cough, Sputum Production, Hemoptysis Gastrointestinal: Denies: Hematemesis, Hematochezia, Melena Genitourinary: Denies: Dysuria, Hematuria Muscoloskeletal: Denies: Myalgias Skin: Denies: Rash Neurological: Denies: Dizziness Psychiatric: Denies: Anxiety Endocrine: Denies: Heat Intolerance Subjectve: Pleasant gentleman in no distress at this time currently pain-free Objective: Vital Signs Temp Pulse Resp BP Pulse Ox 98.3 F 59 L 16 146/100 H 98 07/02/19 06:28 07/02/19 06:28 07/02/19 06:28 07/02/19 06:28 07/02/19 06:28 Oxygen Delivery Method Room Air Weight: 120 lb 9.486 oz Body Mass Index (BMI) 19.4 Intake and Output for Last 24 Hours 06/30/19 07/01/19 07/02/19 23:59 23:59 23:59 Intake Total 60 / 60 Balance 60 / 60 General: Awake, Alert, Oriented x 3 HEENT: PERRL, EOMI, Sclera Non Icteric Neck: Supple, Good ROM, No Lymph Node Enlargement Lungs: Clear to auscultation Cardiovascular: Regular Rhythm, Normal S1, Normal S2, No Murmurs, No Rubs, No Gallops Vascular: No Carotid Bruits, Normal Femoral Pulses, Normal Radial Pulses, Normal Dorsalis Pedal Pulse, Normal Posterior Tibial Pulses Abdomen: Bowel Sounds Present, Soft, Non Tender, No HSM, No Organomegaly Extremities: No Cyanosis, No Clubbing, No edema Musculoskeletal: No Erythema Skin: No Rashes Lymphatic: No Lymph Node Enlargement Neurological: No Focal Motor or Sensory Deficit Psych/Mental Status: Appropriate 07/02/19 00:00: WBC 6.0, RBC 3.60 L, Hgb 11.6 L, Hct 36.3 L, MCV 100.8 H, MCH 32.2 H, MCHC 32.0, Plt Count 301, MPV 9.4, Immature Gran % (Auto) 0.300, Neut % (Auto) 71.2 H, Lymph % (Auto) 11.8 L, Hale % (Auto) 12.0 H, Eos % (Auto) 4.2, Baso % (Auto) 0.5, Absolute Neuts (auto) 4.3 07/02/19 00:00: Sodium 140, Potassium 4.0, Chloride 106, Carbon Dioxide 30.0, Anion Gap 4 L, BUN 31 H, Creatinine 0.88, Est GFR (MDRD) Af Amer 106, Est GFR (MDRD) Non-Af 88, BUN/Creatinine Ratio 35.3 H, Glucose 123 H, Calcium 8.7, Troponin I 0.027 07/02/19 00:00: PT 13.0, INR 1.0, APTT 28.8 07/02/19 03:10: Troponin I 0.207 H 07/02/19 03:10: Magnesium 2.3 07/02/19 03:10: Triglycerides 60, Cholesterol 133, LDL Cholesterol 60, VLDL Cholesterol 12, HDL Cholesterol 61 07/02/19 06:24: Troponin I 1.150 H* Rhythm: EKG: Normal sinus rhythm with no acute changes ECHO: Stress Test: Cardiac Cath: PCI: CT Surgery: Holter monitor: EPS: PPM: CXR: Chest CT Scan: Assessment/Plan 1. Non-ST elevation myocardial infarction * Patient presents with chest discomfort and has developed a non-ST elevation myocardial infarction. My recommendation at this time would be for him to continue his antiplatelet therapy, continue his beta-juan a, and be set up for a left heart catheterization. The risk benefits alternatives have been explained to him he understands and agrees to proceed. Due to his significant peripheral vascular disease and his wound healing to be preferable to perform the above through the radial approach. * 2. Hypertension * He will continue with aggressive blood pressure management. * 3. Hyperlipidemia * He will continue with aggressive risk factor modification. His lipid profile is actually quite acceptable. * * * * Thank you for allowing me to participate in the care of your patient. Please don't hesitate to call if any issues arise. * Addendum: Cardiac catheterization today demonstrated the following: Normal left main coronary artery. Left anterior descending artery with mild mid segment disease. First diagonal branch with a long 60% area of stenosis. Left circumflex artery with no high-grade stenosis and left to right collaterals filling the distal right coronary artery. Dominant right coronary artery previously stented with a total occlusion in the midsegment. Low normal ejection fraction with evidence of basal inferior akinesis. Based on the above angiographic findings the patient will be considered for continued medical therapy. This is in recognition of his collateral formation as well as the fact that he cannot take antiplatelet agents due to his bleeding risk.
[2019-07-02] MEDS: 0.9% Saline Lock 10 ML Syringe IV (08:15)
[2019-07-02] MEDS: DULoxetine Hcl 30 MG Capsule PO (09:41)
[2019-07-02] MEDS: Ferrous Gluconate 324 MG Tablet PO (09:41)
[2019-07-02] MEDS: Multivitamins,Ther W-Minerals Tablet 1 TABLET PO (09:41)
[2019-07-02] MEDS: Celecoxib 100 MG Capsule PO ×2 (09:41→21:46)
[2019-07-02] MEDS: Acetaminophen 500 MG Tablet 1000 MG PO ×2 (09:42→21:47)
[2019-07-02] MEDS: Pantoprazole Sodium 20 MG Tablet PO (09:42)
[2019-07-02] MEDS: amLODIPine 10 MG Tablet PO (09:48)
--- NOTE | 2019-07-02 14:02 | PN_ITS ---
<Jazmine Ventura - Last Filed: 07/02/19 14:14> Patient Problems: Active and Suspected Problems (Last Reviewed 07/02/19 @ 01:[address] Mario Sanchez MD) Chest pain (Acute) Premature atrial contractions (Acute) Subjective: Patient seen and examined. Underwent cardiac catheterization this morning which did not require intervention. Patient denies chest pain. - Physical Exam Vitals/I&O's: Vital Signs Temp Pulse Resp BP Pulse Ox 98 F 88 15 101/56 L 99 07/02/19 13:00 07/02/19 13:00 07/02/19 13:00 07/02/19 13:00 07/02/19 13:00 Oxygen Delivery Method Room Air Weight: 120 lb 9.486 oz Body Mass Index (BMI) 19.4 Intake and Output for Last 24 Hours 06/30/19 07/01/19 07/02/19 23:59 23:59 23:59 Intake Total 580 / 580 Balance 580 / 580 General: Alert, Oriented x3, Cooperative HEENT: Atraumatic, PERRLA, EOMI, Normocephalic Neck: Supple, No JVD, Negative Carotid Bruits Lungs: Clear to auscultation, Normal air movement Cardiovascular: Regular rate, Regular Rhythm, Normal S1, Normal S2, No murmurs Abdomen: Bowel Sounds Present, Soft, Non Tender, Non-Distended Extremities: No clubbing, No cyanosis, No edema, Capillary Refill Less than 3 Seconds Skin: No rashes, No breakdown Musculoskeletal: No Tenderness to Palpation of Joints or Extremities Neurological: Cranial nerves II-XII grossly intact, Neuro grossly intact Psych/Mental Status: Normal Affect, Appropriate Laboratory Results 07/02/19 00:00: WBC 6.0, RBC 3.60 L, Hgb 11.6 L, Hct 36.3 L, MCV 100.8 H, MCH 32.2 H, MCHC 32.0, RDW Std Deviation 54.3 H, RDW Coeff of Ayesha 14.6, Plt Count 301, MPV 9.4, Immature Gran % (Auto) 0.300, Neut % (Auto) 71.2 H, Lymph % (Auto) 11.8 L, Luce % (Auto) 12.0 H, Eos % (Auto) 4.2, Baso % (Auto) 0.5, Absolute Neuts (auto) 4.3, Absolute Lymphs (auto) 0.71 L 07/02/19 00:00: Sodium 140, Potassium 4.0, Chloride 106, Carbon Dioxide 30.0, Anion Gap 4 L, BUN 31 H, Creatinine 0.88, Estim Creat Clear Calc 56.39, Est GFR (MDRD) Af Amer 106, Est GFR (MDRD) Non-Af 88, BUN/Creatinine Ratio 35.3 H, Glucose 123 H, Calcium 8.7, Troponin I 0.027 07/02/19 00:00: PT 13.0, INR 1.0, APTT 28.8 07/02/19 03:10: Troponin I 0.207 H 07/02/19 03:10: Magnesium 2.3 07/02/19 03:10: Triglycerides 60, Cholesterol 133, LDL Cholesterol 60, VLDL Cholesterol 12, HDL Cholesterol 61 07/02/19 06:24: Troponin I 1.150 H* Current Medications Acetaminophen (Tylenol) 1,000 mg PO BID [facility] Last Admin: 07/02/19 09:42 Dose: 1,000 mg Documented by: Amlodipine Besylate (Norvasc) 10 mg PO DAILY [facility] Last Admin: 07/02/19 09:48 Dose: 10 mg Documented by: Aspirin (Ecotrin) 81 mg PO QHS [facility] Last Admin: 07/02/19 06:25 Dose: 81 mg Documented by: Atorvastatin Calcium (Lipitor) 20 mg PO QHS [facility] Celecoxib (Celebrex) 100 mg PO BID [facility] Last Admin: 07/02/19 09:41 Dose: 100 mg Documented by: Duloxetine HCl (Cymbalta) 30 mg PO DAILY [facility] Last Admin: 07/02/19 09:41 Dose: 30 mg Documented by: [facility] Last Admin: 07/02/19 09:41 Dose: 324 mg Documented by: Glucagon () 1 mg IM .X1 PRN PRN Reason: Hypoglycemia Hydralazine HCl (Apresoline Iv) 5 mg IV Q4H PRN PRN PRN Reason: SBP > 160 Dextrose (Dextrose 10%-Water) 250 mls @ 999 mls/hr IV .Q16M PRN; Protocol PRN Reason: HYPOGLYCEMIA Sodium Chloride () 1,000 mls @ 0 mls/hr IV .Q0M LYNDSAY Sodium Chloride () 1,000 mls @ 75 mls/hr IV .[id number] [facility] Last Admin: 07/02/19 08:00 Dose: 75 mls/hr Documented by: Lisinopril (Zestril) 20 mg PO DAILY [facility] Last Admin: 07/02/19 06:25 Dose: 20 mg Documented by: Metoprolol Succinate (Toprol Xl (Beta Koko)) 12.5 mg PO QHS [facility] Multivitamins/Minerals (Multivitamin With Minerals (Bkc)) 1 tablet PO DAILY@0800 [facility] Last Admin: 07/02/19 09:41 Dose: 1 tablet Documented by: Naproxen (Naprosyn) 375 mg PO BID PRN PRN PRN Reason: Pain Score 1-10/10 Nitroglycerin (Nitrostat) 0.4 mg SUBLINGUAL Q5M PRN PRN Reason: CARDIAC/CHEST PAIN Ondansetron HCl (Zofran) 4 mg IV Q8H PRN PRN PRN Reason: NAUSEA/VOMITING Pantoprazole Sodium (Protonix) 20 mg PO DAILY [facility] Last Admin: 07/02/19 09:42 Dose: 20 mg Documented by: Sodium Chloride () 10 - 40 ml IV UD PRN PRN Reason: SALINE FLUSH Last Admin: 07/02/19 08:15 Dose: 10 ml Documented by: Medical Necessity - Tobacco Use Smoking Status: Former smoker Assessment/Plan All Active Problems (Last Reviewed 07/02/19 @ 01:[address] Mario Sanchez MD) Chest pain (Acute) Premature atrial contractions (Acute) History of coronary artery stent placement (Resolved 10/07/15) 1. NSTEMI-cardiology consulted. Patient underwent cardiac catheterization which demonstrated normal left main coronary artery, left anterior descending artery with mild mid segment disease, first diagonal branch with long 60% area of stenosis, left circumflex artery with no high-grade stenosis and [id number] collaterals filling the distal right coronary artery, dominant right coronary artery previously stented with a total occlusion in the midsegment, low normal ejection fraction. Plan for continued medical therapy. Continue aspirin, statin, beta-koko, TIFFANIE inhibitor. Monitor overnight. Echocardiogram demonstrates EF 53%, stage II diastolic dysfunction. Plan for discharge tomorrow with follow-up with Dr. Loera. 2. CAD with history of angioplasty and stenting-cath per above. Continue aspirin, statin, beta-koko. 3. Peripheral arterial occlusive disease-follows with Dr. Rose and previously followed with [facility]. History of multiple stents. 4. Hypertension-stable, continue lisinopril, metoprolol regimen. Initiated on amlodipine as well. 5. Hyperlipidemia- continue statin. 6. GERD- continue PPI. 7. Depression-continue duloxetine regimen. 8. Chronic macrocytic anemia-at baseline, trend CBC. 9. Chronic pain-on Celebrex and as needed naproxen. DVT prophylaxis- SCDs This patient was seen by FILIPE Laurent under the supervision of Dr. Sadler. <Moody Sadler F - Last Filed: 07/02/19 14:39> - Physical Exam Vitals/I&O's: Vital Signs Temp Pulse Resp BP Pulse Ox 98 F 88 15 101/56 L 99 07/02/19 13:00 07/02/19 13:00 07/02/19 13:00 07/02/19 13:00 07/02/19 13:00 Oxygen Delivery Method Room Air Weight: 120 lb 9.486 oz Body Mass Index (BMI) 19.4 Intake and Output for Last 24 Hours 06/30/19 07/01/19 07/02/19 23:59 23:59 23:59 Intake Total 580 / 580 Balance 580 / 580 Laboratory Results 07/02/19 00:00: WBC 6.0, RBC 3.60 L, Hgb 11.6 L, Hct 36.3 L, MCV 100.8 H, MCH 32.2 H, MCHC 32.0, RDW Std Deviation 54.3 H, RDW Coeff of Ayesha 14.6, Plt Count 301, MPV 9.4, Immature Gran % (Auto) 0.300, Neut % (Auto) 71.2 H, Lymph % (Auto) 11.8 L, Luce % (Auto) 12.0 H, Eos % (Auto) 4.2, Baso % (Auto) 0.5, Absolute Neuts (auto) 4.3, Absolute Lymphs (auto) 0.71 L 07/02/19 00:00: Sodium 140, Potassium 4.0, Chloride 106, Carbon Dioxide 30.0, Anion Gap 4 L, BUN 31 H, Creatinine 0.88, Estim Creat Clear Calc 56.39, Est GFR (MDRD) Af Amer 106, Est GFR (MDRD) Non-Af 88, BUN/Creatinine Ratio 35.3 H, Glucose 123 H, Calcium 8.7, Troponin I 0.027 07/02/19 00:00: PT 13.0, INR 1.0, APTT 28.8 07/02/19 03:10: Troponin I 0.207 H 07/02/19 03:10: Magnesium 2.3 07/02/19 03:10: Triglycerides 60, Cholesterol 133, LDL Cholesterol 60, VLDL Cholesterol 12, HDL Cholesterol 61 07/02/19 06:24: Troponin I 1.150 H* Current Medications Acetaminophen (Tylenol) 1,000 mg PO BID [facility] Last Admin: 07/02/19 09:42 Dose: 1,000 mg Documented by: Amlodipine Besylate (Norvasc) 10 mg PO DAILY [facility] Last Admin: 07/02/19 09:48 Dose: 10 mg Documented by: Aspirin (Ecotrin) 81 mg PO QHS [facility] Last Admin: 07/02/19 06:25 Dose: 81 mg Documented by: Atorvastatin Calcium (Lipitor) 20 mg PO QHS [facility] Celecoxib (Celebrex) 100 mg PO BID [facility] Last Admin: 07/02/19 09:41 Dose: 100 mg Documented by: Duloxetine HCl (Cymbalta) 30 mg PO DAILY [facility] Last Admin: 07/02/19 09:41 Dose: 30 mg Documented by: Ferrous [facility]con[facility] ([facility] Glu[facility]ate) [facility] Last Admin: 07/02/19 09:41 Dose: 324 mg Documented by: Glucagon () 1 mg IM .X1 PRN PRN Reason: Hypoglycemia Hydralazine HCl (Apresoline Iv) 5 mg IV Q4H PRN PRN PRN Reason: SBP > 160 Dextrose (Dextrose 10%-Water) 250 mls @ 999 mls/hr IV .Q16M PRN; Protocol PRN Reason: HYPOGLYCEMIA Sodium Chloride () 1,000 mls @ 0 mls/hr IV .Q0M LYNDSAY Sodium Chloride () 1,000 mls @ 75 mls/hr IV .[id number] [facility] Last Admin: 07/02/19 08:00 Dose: 75 mls/hr Documented by: Lisinopril (Zestril) 20 mg PO DAILY [facility] Last Admin: 07/02/19 06:25 Dose: 20 mg Documented by: Metoprolol Succinate (Toprol Xl (Beta Koko)) 12.5 mg PO QHS [facility] Multivitamins/Minerals (Multivitamin With Minerals (Bkc)) 1 tablet PO DAILY@0800 [facility] Last Admin: 07/02/19 09:41 Dose: 1 tablet Documented by: Naproxen (Naprosyn) 375 mg PO BID PRN PRN PRN Reason: Pain Score 1-10/10 Nitroglycerin (Nitrostat) 0.4 mg SUBLINGUAL Q5M PRN PRN Reason: CARDIAC/CHEST PAIN Ondansetron HCl (Zofran) 4 mg IV Q8H PRN PRN PRN Reason: NAUSEA/VOMITING Pantoprazole Sodium (Protonix) 20 mg PO DAILY [facility] Last Admin: 07/02/19 09:42 Dose: 20 mg Documented by: Sodium Chloride () 10 - 40 ml IV UD PRN PRN Reason: SALINE FLUSH Last Admin: 07/02/19 08:15 Dose: 10 ml Documented by: Addendum: Dr. Sadler I personally examined the patient and reviewed the chart. I agree with the above. 83-year-old male presenting with a non-ST segment elevation UT, he did present with chest pain and then his troponin did increase to 1.150. He had an echo showed stage II diastolic dysfunction with mild segmental wall abnormality. He had a cardiac cath today which demonstrated a normal left main coronary artery as well as a normal LAD. The first diagonal branch had a 60% area merari nosis. The stent that he had to his right coronary artery was completely occluded. Recommendation at this time by cardiology is medical management. OBSV E&M: [id number] Subsequent observation care L2
--- NOTE | 2019-07-02 14:40 | CASEMGMT ---
Patient has a Healthcare Power of Dry Room Attendant and a Healthcare Living Will on file at [facility]. Lanny MCMILLAN MSW
--- NOTE | 2019-07-02 15:41 | CL.D_ITS ---
Patient Name: FEI OLEARY Study Date: 07/02/2019 Performing: Janes Loera MD Ht: 66 inches 168 cm : 1935 Wt: 121.4 lbs 55 kg Age: 83 Gender: male BSA: 1.62 PROCEDURE(S) PERFORMED [id number] CLINICAL PROFILE AND INDICATIONS Indications: ACS <= 24 hrs Heart Failure: None Stress/Imaging Stress/Image Study Performed: No CONCLUSIONS Coronary artery disease with evidence of previously stented right coronary artery which is totally oc cluded with dygl-[id number] collaterals and fairly preserved left ventricular systolic function. RECOMMENDATIONS Medical therapy DESCRIPTION OF PROCEDURE The patient arrived to the procedure lab. The risks and benefits of the procedure as well as a full d escription of our services here and current unavailability of surgical backup were fully explained to the patient and/or their significant other prior to the catheterization. The Timeout was completed, verifying the correct patient and procedure. The patient's procedural site was prepped and draped in the usual fashion. Local anesthetic was given subcutaneously to right radial region with Lidocaine 2% . Using a modified Seldinger technique, arterial access was obtained via the right radial artery, a 6 Fr sheath was inserted. Left Coronary Artery selective angiography was performed in multiple views u sing a 5 Fr. 4.0 Alsey catheter. Right Coronary Artery selective angiography was then performed in mu ltiple views using a 5 Fr. 4.0 Alsey catheter. Left Ventriculography was performed in CHEUNG projection using a 5 Fr. Pigtail catheter. LV to AO pullback pressures were then recorded.The arterial sheath was pulled and a TR Band was applied for hemostasis CORONARY ANGIOGRAPHY DOMINANCE: Right Dominant LEFT HEART ASSESSMENT Left Ventricular Ejection Fraction: by LV Gram 50 % Inferior Basal Akinesis Normal Left Ventricular systolic function LEFT MAIN: Angiographically normal LEFT ANTERIOR DESCENDING ARTERY: PROX LAD: Mild luminal irregularities less than 30% DIAGONAL 1: Proximal - Diffusely diseased up to 70 % CIRCUMFLEX ARTERY: Mild luminal irregularities less than 30% RIGHT CORONARY ARTERY: is occluded MID RCA: Previously placed stent is occluded COLLATERAL FLOW: Collateral flow from Left to Right COMPLICATIONS No Complications PROCEDURE MEDICATIONS Versed 0.5 mg IV Fentanyl 25 mcg IV Oxygen: 2 L/min via nasal cannula Heparin diluted in 23cc Heparinized saline. Patient given 10cc IA of this solution. 07/02/2019 09:00: 53 Verapamil 2.5mg, Ntg 100mcgs, 2000 units of Heparin diluted in 23cc Heparinized saline. Patient give n 10cc IA of this solution. 07/02/2019 09:00:53 SUMMARY OF HEMODYNAMIC DATA Time AIR REST ECG 08:41:29 AO 123/66 (89) SA 09:03:30 LV 165/5, 9 09:13:03 LV 162/5, 8 09:13:11 LV 160/-2, 11 09:13:53 LVp 169/0, 13 09:13:59 AOp 170/74 (110) 09:14:04 Signed By Janes Loera MD On 07/02/2019 15:40:36 Janes Loera MD
[2019-07-02] MEDS: Atorvastatin Calcium 20 MG Tablet PO (21:46)
[2019-07-02] MEDS: Metoprolol(XL)Succ 25 MG Tablet 12.5 MG PO (21:46)
[2019-07-03 02:52] VITALS: PULSE 62
[2019-07-03 03:39] VITALS: BP 130/64; PULSE 80; RESP 13; TEMP 36.7; O2SAT 97
--- NOTE | 2019-07-03 07:49 | DCINST_ITS ---
- Discharge Diagnoses Current Active Problems: Current Active and Chronic Problems (Last Reviewed 07/02/19 @ 01:[address] Mario Sanchez MD) History of left heart catheterization (Chronic 07/02/19) Coronary artery disease with evidence of previously stented right coronary artery which is totally occluded with [id number] collaterals and fairly preserved left ventricular systolic function. RECOMMENDATIONS: Medical therapy Chest pain (Acute) Premature atrial contractions (Acute) You will use the following diet at home:: Cardiac Your food should be the consistency of: Regular Your liquids should be the consistency of: Regular/Thin Discharge Activity: Return to Normal Activity Call your doctor if you observe: Fever of 101 or Higher, Shortness of breath, Dizziness, Fainting spells, Swelling in the ankles, Chest pain, Increased palpitations (irregular heartbeat) Allergies/Adverse Reactions: Allergies carisoprodol Allergy (Verified 07/01/19 23:23) Other itraconazole Allergy (Verified 07/01/19 23:23) Other Medications to take at Discharge Omeprazole [Prilosec] 20 mg PO DAILY 10/07/15 Aspirin E.C. [Ecotrin] 81 mg PO QHS 03/08/17 Ferrous Gluconate 324 mg PO DAILY 02/14/18 Multivit-Min/FA/Lycopen/Lutein [Centrum Silver Men Tablet] 1 tab PO DAILY 02/14/18 Nitroglycerin 0.4 mg PO PRN PRN 02/14/18 lisinopril 20 mg tablet 20 mg PO DAILY #90 tab 10/04/18 Acetaminophen [Tylenol] 1,000 mg PO BID 10/29/18 Vitamin E 400 unit PO DAILY 10/29/18 Nitroglycerin 0.4 mg SL X1 02/14/19 duloxetine 30 mg capsule,delayed release 30 mg PO DAILY 03/06/19 naproxen 375 mg tablet 375 mg PO BID PRN 03/06/19 atorvastatin 20 mg tablet 20 mg PO QHS #90 tab 06/10/19 metoprolol succinate 25 mg tablet,extended release 24 hr 12.5 mg PO QHS #90 tab 06/14/19 Celecoxib [Celebrex] 100 mg PO BID 07/01/19 Amlodipine [Norvasc] 10 mg PO DAILY #30 tab 07/03/19 The following prescriptions were given: Amlodipine [Norvasc] 10 mg PO DAILY #30 tab Transmission Status: Pending to [facility] Primary Care Physician: Ryan Shukla MD [Primary Care Provider] - Please follow up with your Primary Care Physician in: 3-5 days Test Results: Test results from this visit will be discussed in further detail at your follow- up appointment, if applicable. Please Follow Up With: Janes Loera MD When: 2-4 weeks
[2019-07-03 07:54] VITALS: PULSE 81
[2019-07-03 08:25] VITALS: BP 116/50; PULSE 55; RESP 16; TEMP 36.9; O2SAT 96
[2019-07-03] MEDS: Pantoprazole Sodium 20 MG Tablet PO (08:31)
[2019-07-03] MEDS: Celecoxib 100 MG Capsule PO (08:31)
[2019-07-03] MEDS: Multivitamins,Ther W-Minerals Tablet 1 TABLET PO (08:31)
[2019-07-03] MEDS: Acetaminophen 500 MG Tablet 1000 MG PO (08:31)
[2019-07-03] MEDS: DULoxetine Hcl 30 MG Capsule PO (08:31)
[2019-07-03] MEDS: Ferrous Gluconate 324 MG Tablet PO (08:31)
[2019-07-03] MEDS: Lisinopril 20 MG Tablet PO (08:32)
[2019-07-03] MEDS: amLODIPine 10 MG Tablet PO (08:33)
--- NOTE | 2019-07-03 08:54 | PN.CARD_ITS ---
Subjectve: Patient seen and evaluated. Appears to doing well. No further chest pain. Objective: Vital Signs Temp Pulse Resp BP Pulse Ox 98.5 F 55 L 16 116/50 L 96 07/03/19 08:25 07/03/19 08:25 07/03/19 08:25 07/03/19 08:25 07/03/19 08:25 Oxygen Delivery Method Room Air Weight: 120 lb 9.486 oz Body Mass Index (BMI) 19.4 Intake and Output for Last 24 Hours 07/01/19 07/02/19 07/03/19 23:59 23:59 23:59 Intake Total 1929 Balance 1929 General: Awake, Alert, Oriented x 3 HEENT: PERRL, EOMI, Sclera Non Icteric Neck: Supple, Good ROM, No Lymph Node Enlargement Lungs: Clear to auscultation Cardiovascular: Regular Rhythm, Normal S1, Normal S2, No Murmurs, No Rubs, No Gallops Rhythm: EKG: ECHO: Stress Test: Cardiac Cath: PCI: CT Surgery: Holter monitor: EPS: PPM: CXR: Chest CT Scan: Medical Necessity - Tobacco Use Smoking Status: Former smoker Assessment/Plan 1. Non-ST elevation myocardial infarction * Cardiac catheterization today demonstrated the following: Normal left main coronary artery. Left anterior descending artery with mild mid segment disease. First diagonal branch with a long 60% area of stenosis. Left circumflex artery with no high-grade stenosis and left to right collaterals filling the distal right coronary artery. Dominant right coronary artery previously stented with a total occlusion in the midsegment. Low normal ejection fraction with evidence of basal inferior akinesis. Based on the above angiographic findings the patient will be considered for continued medical therapy. This is in recognition of his collateral formation as well as the fact that he cannot take antiplatelet agents due to his bleeding risk. * Patient will be discharged for outpatient follow-up. We will add amlodipine to his regimen 2. Hypertension * He will continue with aggressive blood pressure management. * Amlodipine has been added to his regimen 3. Hyperlipidemia * He will continue with aggressive risk factor modification. His lipid profile is actually quite acceptable. * * * * Thank you for allowing me to participate in the care of your patient. Please don't hesitate to call if any issues arise. * We will defer to cardiac rehab at this time due to the coronavirus
--- NOTE | 2019-07-03 09:53 | CASEMGMT ---
This TRAVIS ELKINS to room with DENNY form at this time, explanation done-pt voices understanding, and signs DENNY form at this time. Original to chart and copy to pt at this time. Pt voices no concerns with going home at time of discharge. Pt voices no further questions/concerns/needs at this time. SStaten TRAVIS ELKINS
--- NOTE | 2019-07-03 10:19 | PCM.DC.SUM ---
Discharge Date and Diagnosis - Problem List Patient Problems: Active and Suspected Problems (Last Reviewed 07/02/19 @ 01:[address] Mario Sanchez MD) Chest pain (Acute) Premature atrial contractions (Acute) Date of Admission: 07/02/19 Date of Discharge: 07/03/19 - Primary Discharge Diagnosis Active and Suspected Problems (Last Reviewed 07/02/19 @ 01:[address] Mario Sanchez MD) Chest pain (Acute) Premature atrial contractions (Acute) - Secondary Discharge Diagnosis Chronic Problems (Last Reviewed 07/02/19 @ 01:[address] Mario Sanchez MD) History of left heart catheterization (Chronic 07/02/19) Coronary artery disease with evidence of previously stented right coronary artery which is totally occluded with duat-[id number]-rhyzl collaterals and fairly preserved left ventricular systolic function. RECOMMENDATIONS: Medical therapy Peripheral neuropathy (Chronic) Chronic pain of right heel (Chronic) Diastolic dysfunction (Chronic) Hyperlipidemia (Chronic) Palpitations (Chronic) Peripheral arterial occlusive disease (Chronic) SFA PTCA/Stent 08/2012; angioplasty and stenting- RSFA @ [facility] per Dr. Zapata; Stent to distal RSFA to popliteal, Stent-Prox RSFA 10/23/13 Essential (primary) hypertension (Chronic) Atherosclerotic heart disease of [place] coronary artery without angina pectoris (Chronic) SFA PTCA/Stent 08/2012; angioplasty and stenting- RSFA @ [facility] per Dr. Zapata; Stent to distal RSFA to popliteal, Stent-Prox RSFA 10/23/13 Hospital Course and Treatment Imaging Results: CXR: IMPRESSION: 1. No acute cardiopulmonary disease. No significant interval change. 2. COPD. Echo: Interpretation Summary Normal LV size. Left ventricular systolic function is lower limits of normal. The estimated ejection fraction is 53 %. Stage 2 diastolic dysfunction. Mild segmental systolic dysfunction (see wall motion). Cardiac Cath: CONCLUSIONS Coronary artery disease with evidence of previously stented right coronary artery which is totally occluded with [id number] collaterals and fairly preserved left ventricular systolic function. RECOMMENDATIONS Medical therapy Consults: Cardiology Operations: None Procedures: 2-D Echocardiogram, Cardiac catheterization Summary of Care Provided: Per HPI: The patient is a 83 year old M with a significant history of diastolic heart failure; CAD status post stent; PAD status post stent; and hypertension who presents at the emergency department with substernal chest pain that started while defecating. Associated with symptoms is shortness of breath. He rated his pain as 3 out of 10. His pain went away with taking 4 baby aspirin and nitroglycerin at home. Defecating aggravated his chest pain. At emergency department his pain was 0. His pain is nonradiating. Previously patient was Plavix that were discontinued because of rectal bleeding with rectal prolapse. Also patient was on anticoagulation for history of A. fib. He is not on any anticoagulation because of rectal prolapse with GI bleeding. He was on Plavix in the past. Hospital Course: 1. NSTEMI/CAD status post stenting/PAD/HTN/[id number]-pcdd-old male with significant cardiac history presented to the hospital with chest pain. It was 3 out of 10. His initial EKG was unremarkable and his first troponin was normal however he did have a rise in his troponin to 1.15. Cardiology was consulted and the stress test was canceled, we had an echo which showed an EF of 53% and stage II diastolic dysfunction, and then he had a cardiac cath which demonstrated a 60% stenosis in the first diagonal branch with occlusion of the stent in the RCA with good collateralization. Cardiology felt that we could manage him medically at this point without having any intervention. Norvasc was added to his regimen to control his blood pressure. He has tolerated the addition of Norvasc well and is set to be discharged today with cardiology follow-up as an outpatient. I did discuss discharge planning with him and he expressed understanding of the risks and benefits of going home. 2. His other medical diagnoses were evaluated and his home medications were continued where appropriate Patient Problems: Active and Suspected Problems (Last Reviewed 07/02/19 @ 01:[address] Mario Sanchez MD) Chest pain (Acute) Premature atrial contractions (Acute) - Physical Exam Vitals/I&O's: Vital Signs Temp Pulse Resp BP Pulse Ox 98.5 F 55 L 16 116/50 L 96 07/03/19 08:25 07/03/19 08:25 07/03/19 08:25 07/03/19 08:25 07/03/19 08:25 Oxygen Delivery Method Room Air Weight: 120 lb 9.486 oz Body Mass Index (BMI) 19.4 Intake and Output for Last 24 Hours 07/01/19 07/02/19 07/03/19 23:59 23:59 23:59 Intake Total 1930 / 1930 40 / 40 Balance 1929 General: Alert, Oriented x3, Cooperative, No apparent distress HEENT: Atraumatic, PERRLA, EOMI, Normocephalic Oral: Moist Mucosa Neck: Supple, No JVD Lungs: Clear to auscultation, Normal air movement, No rhonchi, No wheeze, No rales, Diminished Cardiovascular: Regular rate, Regular Rhythm, Normal S1, Normal S2, No murmurs Abdomen: Soft, Non Tender, Non-Distended, No Hepato-splenomegaly Extremities: No edema, Capillary Refill Less than 3 Seconds Skin: No rashes, No breakdown Neurological: Neuro grossly intact, Sensory exam intact to light touch and pain Psych/Mental Status: Normal Affect, Appropriate Current Medications Acetaminophen (Tylenol) 1,000 mg PO BID [facility] Last Admin: 07/03/19 08:31 Dose: 1,000 mg Documented by: Amlodipine Besylate (Norvasc) 10 mg PO DAILY [facility] Last Admin: 07/03/19 08:33 Dose: 10 mg Documented by: Aspirin (Ecotrin) 81 mg PO QHS [facility] Last Admin: 07/02/19 06:25 Dose: 81 mg Documented by: Atorvastatin Calcium (Lipitor) 20 mg PO QHS [facility] Last Admin: 07/02/19 21:46 Dose: 20 mg Documented by: Celecoxib (Celebrex) 100 mg PO BID [facility] Last Admin: 07/03/19 08:31 Dose: 100 mg Documented by: Duloxetine HCl (Cymbalta) 30 mg PO DAILY [facility] Last Admin: 07/03/19 08:31 Dose: 30 mg Documented by: Ferrous [facility]ous Glucon[facility]) [facility] Last Admin: 07/03/19 08:31 Dose: 324 mg Documented by: Glucagon () 1 mg IM .X1 PRN PRN Reason: Hypoglycemia Hydralazine HCl (Apresoline Iv) 5 mg IV Q4H PRN PRN PRN Reason: SBP > 160 Dextrose (Dextrose 10%-Water) 250 mls @ 999 mls/hr IV .Q16M PRN; Protocol PRN Reason: HYPOGLYCEMIA Sodium Chloride () 1,000 mls @ 0 mls/hr IV .Q0M [facility] Lisinopril (Zestril) 20 mg PO DAILY [facility] Last Admin: 07/03/19 08:32 Dose: 20 mg Documented by: Metoprolol Succinate (Toprol Xl (Beta Koko)) 12.5 mg PO QHS [facility] Last Admin: 07/02/19 21:46 Dose: 12.5 mg Documented by: Multivitamins/Minerals (Multivitamin With Minerals (Bkc)) 1 tablet PO DAILY@0800 [facility] Last Admin: 07/03/19 08:31 Dose: 1 tablet Documented by: Naproxen (Naprosyn) 375 mg PO BID PRN PRN PRN Reason: Pain Score 1-10/10 Nitroglycerin (Nitrostat) 0.4 mg SUBLINGUAL Q5M PRN PRN Reason: CARDIAC/CHEST PAIN Ondansetron HCl (Zofran) 4 mg IV Q8H PRN PRN PRN Reason: NAUSEA/VOMITING Pantoprazole Sodium (Protonix) 20 mg PO DAILY [facility] Last Admin: 07/03/19 08:31 Dose: 20 mg Documented by: Sodium Chloride () 10 - 40 ml IV UD PRN PRN Reason: SALINE FLUSH Last Admin: 07/02/19 08:15 Dose: 10 ml Documented by: Discharge Activity: Return to Normal Activity Call your doctor if you observe: Fever of 101 or Higher, Shortness of breath, Dizziness, Fainting spells, Swelling in the ankles, Chest pain, Increased palpitations (irregular heartbeat) Home Medications: Medications to take at Discharge Omeprazole [Prilosec] 20 mg PO DAILY 10/07/15 Aspirin E.C. [Ecotrin] 81 mg PO QHS 03/08/17 Ferrous Gluconate 324 mg PO DAILY 02/14/18 Multivit-Min/FA/Lycopen/Lutein [Centrum Silver Men Tablet] 1 tab PO DAILY 02/14/18 Nitroglycerin 0.4 mg PO PRN PRN 02/14/18 lisinopril 20 mg tablet 20 mg PO DAILY #90 tab 10/04/18 Acetaminophen [Tylenol] 1,000 mg PO BID 10/29/18 Vitamin E 400 unit PO DAILY 10/29/18 Nitroglycerin 0.4 mg SL X1 02/14/19 duloxetine 30 mg capsule,delayed release 30 mg PO DAILY 03/06/19 naproxen 375 mg tablet 375 mg PO BID PRN 03/06/19 atorvastatin 20 mg tablet 20 mg PO QHS #90 tab 06/10/19 metoprolol succinate 25 mg tablet,extended release 24 hr 12.5 mg PO QHS #90 tab 06/14/19 Celecoxib [Celebrex] 100 mg PO BID 07/01/19 Amlodipine [Norvasc] 10 mg PO DAILY #30 tab 07/03/19 Following Prescrptions Were Given to Patient: Amlodipine [Norvasc] 10 mg PO DAILY #30 tab Transmission Status: Received by [facility] Primary Care Physician: Ryan Shukla MD [Primary Care Provider] - Please follow up with your Primary Care Physician in: 3-5 days Please Follow Up With: Janes Loera MD When: 2-4 weeks Disposition: Home Minutes spent on discharge:: 35 Patient Condition:: Stable Medical Necessity - Tobacco Use Smoking Status: Former smoker Meaningful Use Info Meaningful Use Diagnoses (Choose all that apply): AMI - AMI/Post PCI/Angioplasty Aspirin given w/in 24hrs of arrival?: Yes ASA at discharge?: Yes Statins at discharge?: Yes Saurabh/ARB at discharge?: Yes Beta Koko at discharge?: Yes Done w/ Acute IA measure.: Yes Documented LVEF (%): 53 OBSV E&M: [id number] Observation care discharge
== END 2019-07-03 07:50 | disposition home or self-care (01) ==
LOC: ED 07-02 01:03 → PCU 07-02 01:18
PROVIDERS: Admitting Provider Hospitalist; Emergency Provider Emergency Medicine; PCP Family Medicine; Visit Provider Family Medicine
DX: I21.4 Non-ST elevation (NSTEMI) myocardial infarction (principal); I45.10 Unspecified right bundle-branch block; I11.0 Hypertensive heart disease with heart failure; I50.32 Chronic diastolic (congestive) heart failure; I08.1 Rheumatic disorders of both mitral and tricuspid valves; I25.10 Atherosclerotic heart disease of native coronary artery without angina pectoris; E11.51 Type 2 diabetes mellitus with diabetic peripheral angiopathy without gangrene; F32.9 Major depressive disorder, single episode, unspecified; I49.1 Atrial premature depolarization; E78.5 Hyperlipidemia, unspecified; G89.29 Other chronic pain; K21.9 Gastro-esophageal reflux disease without esophagitis; G62.9 Polyneuropathy, unspecified; E11.319 Type 2 diabetes mellitus with unspecified diabetic retinopathy without macular edema; G47.33 Obstructive sleep apnea (adult) (pediatric); D53.9 Nutritional anemia, unspecified; C61 Malignant neoplasm of prostate; Z79.899 Other long term (current) drug therapy; Z79.82 Long term (current) use of aspirin; Z95.5 Presence of coronary angioplasty implant and graft; Z87.891 Personal history of nicotine dependence
CPT/HCPCS: 36415; 71046; 80048; 80061; 83735; 84484; 85025; 85610; 85730; 93005; 93306; 93458; 96360; 96361; 97162; 97166; 99152; 99153; 99218; 99285; J7030; Q9967; A4216; C1769; C1894; G0378

== ENCOUNTER → 2019-08-08 15:17 | Outpatient (CLI) | payer MEDICARE, OTHER, SELFPAY ==
[2019-07-02 02:30] VITALS: BMI 19.4
[2019-08-08 17:46] LABS: Vitamin B12 471 pg/mL (211-911)
[2019-08-08 18:22] LABS: Thyroid Stim Hormone (TSH) 0.43 uIU/mL (0.358-3.74)
[2019-08-10 20:07] LABS: Free Lambda Light Chains 20.8 mg/L (5.7-26.3)
== END ==
PROVIDERS: PCP Family Medicine; Referring Provider Psychiatry & Neurology Neurology; Visit Provider Psychiatry & Neurology Neurology
DX: E78.5 Hyperlipidemia, unspecified (principal); G62.9 Polyneuropathy, unspecified
CPT/HCPCS: 36415; 82607; 82746; 83883; 84443

== ENCOUNTER → 2019-10-08 15:03 | Outpatient (CLI) | payer MEDICARE, OTHER, SELFPAY ==
--- NOTE | 2019-10-08 15:17 | VDLE_ITS ---
Reason For Study: pain and swelling RIGHT LEFT GSV is normal. CFV is compressible, spontaneous, phasic, CFV is compressible, spontaneous, phasic, competent, and demonstrates normal competent and demonstrates normal augmentation. augmentation. FV is compressible, spontaneous, phasic, competent and demonstrates normal augmentation. POP V is compressible, spontaneous, phasic, competent and demonstrates normal augmentation. T/P Trunk is compressible. PTV is compressible. RT PerV is compressible. Procedure Exam performed in department. The exam was diagnostic. A preliminary report was called and/or faxed to Dr. Holcomb. Interpretation Summary Deep veins of the right lower extremity are patent and compressible segmentally. There is no evidence of right lower extremity deep vein thrombosis. Valvular competence appears intact within the proximal deep venous system on the right . The right great saphenous vein appears patent and compressible segmentally. Ordering Physician: Remedios Holcomb Performed By: Collin Tsai RVT
== END ==
PROVIDERS: PCP Family Medicine; Visit Provider Family Medicine
DX: M79.604 Pain in right leg (principal)
CPT/HCPCS: 93971

== ENCOUNTER → 2019-11-06 15:45 | Outpatient (CLI) | payer MEDICARE, OTHER, SELFPAY ==
[2019-10-31 14:54] VITALS: BMI 21.2
--- NOTE | 2019-11-06 15:45 | MRI_ITS ---
STUDY: MRI CERVICAL SPINE WITHOUT CONTRAST REASON FOR EXAM: Male, 84 years old. cervicalgia, pt is kyphotic, difficult laying flat TECHNIQUE: Standardized fat and water weighted pulse sequences were obtained in the sagittal and axial planes. COMPARISON: 01/08/2010 FINDINGS: Normal foramen magnum and brainstem-cervical cord junction. Normal craniovertebral junction. There are degenerative changes of the anterior atlantoaxial articulation. Normal odontoid process. 4 mm of C7-T1 anterolisthesis. Levoconvex scoliosis. C2-3: Disc osteophyte complex with moderate to severe central canal stenosis and severe left foraminal stenosis. Mild cord compression. C3-4: Disc osteophyte complex and left facet hypertrophy with moderate central canal and severe bilateral foraminal stenoses. C4-5: Residual osteophytes and facet hypertrophy with mild central canal and severe left foraminal stenoses. C5-6: Disc osteophyte complex with moderate central canal stenosis and severe bilateral foraminal stenoses. C6-7: Disc osteophyte complex and left facet hypertrophy with moderate right foraminal stenosis. C7-T1: Disc osteophyte complex with moderate left foraminal stenosis. No intrinsic cord signal abnormalities are seen at this time. Normal visualized soft tissue structures. MRI/Spine Cervical (Routine) IMPRESSION: Multilevel degenerative disease and postoperative change as described. 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 Mild cord compression at C2-3. Electronically Signed: Joaquin Bhatia MD at 18:56 EDT Tel , Service support ,
--- NOTE | 2019-11-06 16:54 | RAD_ITS ---
STUDY: X-RAY - RIGHT KNEE REASON FOR EXAM: Male, 84 years old. RIGHT KNEE PAIN TECHNIQUE: 2 view(s) of the knee. COMPARISON: None. FINDINGS: Normal visualized distal femur. Normal visualized proximal tibia and fibula. Normal proximal tibiofibular articulation. There is severe degenerative arthrosis of the medial femorotibial compartment with severe joint space narrowing. Normal lateral femorotibial compartment. There is moderate degenerative arthrosis of the patellofemoral articulation. Multiple patellar osteophytes. Stent in the thigh. Vascular calcifications. RAD/Knee 1 or 2 Views IMPRESSION: Bicompartmental osteoarthritis as described. Electronically Signed: Joaquin Bhatia MD at 20:00 EDT Tel , Service support ,
== END ==
PROVIDERS: PCP Family Medicine; Referring Provider Psychiatry & Neurology Neurology; Visit Provider Psychiatry & Neurology Neurology
DX: M54.2 Cervicalgia (principal); M25.561 Pain in right knee
CPT/HCPCS: 72141; 73560

== ENCOUNTER 2019-11-14 13:00 | Outpatient (RCR) | payer MEDICARE, OTHER, SELFPAY ==
[2019-10-31 14:54] VITALS: BP 146/66; PULSE 61; RESP 18; TEMP 36.7; BMI 21.2
--- NOTE | 2019-11-01 08:11 | HP.PCM_ITS ---
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 Status: Acute Current Visit: Yes Code(s): L97.922 - Non-pressure chronic ulcer of unspecified part of left lower leg with fat layer exposed (2) Non-healing ulcer of right foot with fat layer exposed Status: Acute Current Visit: Yes Code(s): L97.512 - Non-pressure chronic ulcer of other part of right foot with fat layer exposed (3) Neuropathy Status: Acute Current Visit: Yes Code(s): G62.9 - Polyneuropathy, unspecified (4) Chronic pain of right heel Status: Chronic Current Visit: Yes Code(s): M79.671 - Pain in right foot; G89.29 - Other chronic pain (5) Rectal prolapse Status: Acute Current Visit: No Code(s): K62.3 - Rectal prolapse (6) Atherosclerotic heart disease of [place] coronary artery without angina pectoris Status: Chronic Current Visit: No Qualifiers: Code(s): I25.10 - Atherosclerotic heart disease of [place] coronary artery without angina pectoris (7) Debility Status: Chronic Current Visit: No Code(s): R53.81 - Other malaise (8) Essential (primary) hypertension Status: Chronic Current Visit: No Code(s): I10 - Essential (primary) hypertension (9) Hyperlipidemia Status: Chronic Current Visit: No Qualifiers: Code(s): E78.5 - Hyperlipidemia, unspecified (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 Status: Chronic Current Visit: No Code(s): I77.9 - Disorder of arteries and arterioles, unspecified Comment: SFA PTCA/Stent 08/2012; Stent to distal RSFA to popliteal, Stent-Prox RSFA 10/23/13 (11) Right bundle branch block (RBBB) Status: Chronic Current Visit: No Code(s): I45.10 - Unspecified right bundle-branch block (12) History of coronary artery stent placement Status: Resolved Current Visit: No Code(s): Z95.5 - Presence of coronary angioplasty implant and graft Comment: PCI-Stent to mid RCA 08/06/04; cutting balloon angioplasty with TAMERA to mid RCA 02/19; OKR-[id number]-ZCU-of RCA 06/18/09; PCI/TAMERA to Ostial PDA and PCI-ISR RCA 09/03/13; PCI/TAMERA ISR of mid RCA 10/07/15; FFR mid LAD 0.86 10/08/15 (13) History of non-ST elevation myocardial infarction (NSTEMI) Status: Resolved Current Visit: No Code(s): I25.2 - Old myocardial infarction History of Present Illness Date of Service: 10/31/19 Chief Complaint: Chronic right heel ulceration, left lower leg ulcer History of Wound: Joaquin is an 83-year-old male who presents to the clinic today with complaints of a left lower extremity ulcer, as well as a chronic ulceration of the right heel, Both of which have been present for the last 2 months. He has a past medical history significant for CAD, PVD, peripheral neuropathy (Currently following up with neurology), and arthritis. He has a history of angioplasty and stent placement in his right superficial femoral artery and right popliteal artery. He continues to see Dr. Rose for vascular management And his most recent ABIs and 02/2019 showed a right RALPH of 1.07 and a left RALPH of 0.67. He also had vascular studies done in September 2019 from his primary care which showed valvular competence.The patient's states that they have been utilizing an [id number] salve on the patient's wounds without much improvement. They note clear to yellow Moderate drainage at times. He denies any purulent drainage, increasing pain, redness, swelling, foul odor, or other signs of infection. Patient also reports painful ulcerations of his right heel, which have been present Intermittently for the past 2 years. He was previously seen at the wound center for management of these ulcers. In the past, his cultures were positive for Maria M, and he was treated with antifungal topical treatment. He also had previously improved with use of orthotics, but reports that he is unable to tolerate these at this time. He was previously on gabapentin, for management of his chronic peripheral neuropathy. However his primary care provider has since discontinued his gabapentin Given the patient's multiple falls. He rates his pain 8 out of 10 and reports pain is intermittent and occurs with pressure/weightbearing. He is ambulatory with a cane. He also states that since his recent rectal prolapse that he has been almost entirely homebound and more debilitated and having more difficulty caring for himself. He denies any other acute concerns. Past Medical History Past Medical History: Chronic Problems (Last Reviewed 08/15/19 @ 14:[address] Janes Loera MD) Chronic pain of right heel (Chronic) Debility (Chronic) Palpitations (Chronic) Atherosclerotic heart disease of [place] coronary artery without angina pectoris (Chronic) Peripheral arterial occlusive disease (Chronic) SFA PTCA/Stent 08/2012; Stent to distal RSFA to popliteal, Stent-Prox RSFA 10/23/13 Right bundle branch block (RBBB) (Chronic) Essential (primary) hypertension (Chronic) Hyperlipidemia (Chronic) Surgical History: rotator cuff repair, tonsillectomy, - - The patient is undergone lumbar surgery in the past. He has a history of bilateral shoulder surgery. He has had coronary stents placed, and to proceed stenting was performed in the right lower extremity. Allergies/Adverse Reactions: Allergies carisoprodol Allergy (Verified 10/17/19 15:36) Other itraconazole Allergy (Verified 10/17/19 15:36) Other Home Medications: Ambulatory Orders Medication Instructions Recorded Omeprazole [Prilosec] 20 mg PO DAILY 10/07/15 Ferrous Gluconate 324 mg PO DAILY 02/14/18 Multivit-Min/FA/Lycopen/Lutein 1 tab PO DAILY 02/14/18 [Centrum Silver Men Tablet] Nitroglycerin 0.4 mg PO PRN PRN 02/14/18 Vitamin E 400 unit PO DAILY 10/29/18 duloxetine 30 mg capsule,delayed 30 mg PO DAILY 03/06/19 release atorvastatin 20 mg tablet 20 mg PO QHS #90 tab 06/10/19 metoprolol succinate 25 mg 12.5 mg PO QHS #90 tab 06/14/19 tablet,extended release 24 hr amlodipine 10 mg tablet 10 mg PO DAILY #90 tab 07/23/19 lisinopril 20 mg tablet 20 mg PO DAILY #90 tab 09/30/19 meloxicam 7.5 mg tablet 7.5 mg PO BID PRN #180 tab 10/17/19 Acetaminophen 500 mg PO 4X/DAY 10/31/19 Review of Systems Constitutional: Denies: Chills, Fever, Weight Change Eyes: Denies: Pain, Vision Change HEENT: Denies: Difficulty Hearing, Difficulty Swallowing, Sinus Congestion Cardiovascular: Denies: Chest Pain, Palpitations Respiratory: Denies: Cough, Shortness of Breath Gastrointestinal: Denies: Diarrhea, Nausea, Vomiting Genitourinary: Denies: Dysuria, Hematuria Skin: Reports: Wounds - See HPI Endocrine: Denies: Heat/ Cold Intolerance, Polydipsia, Polyuria Hematologic/ Lymphatic: Denies: Easy Bruising, Easy Bleeding - Physical Exam Vital Signs Temp Pulse Resp BP 98.1 F 61 18 146/66 H 10/31/19 14:54 10/31/19 14:54 10/31/19 14:54 10/31/19 14:54 General: Alert, Oriented x3 - Oriented to person and place, Cooperative HEENT: Atraumatic, PERRLA Oral: Moist Mucosa Lungs: Clear to auscultation, Normal air movement Cardiovascular: Regular rate Abdomen: Soft, Non Tender Extremities: No clubbing, No cyanosis, Diminished Peripheral Pulses - Bilateral dorsal pedis pulses, Edema - Generalized bilateral lower extremity edema Skin: Ulcer/ Wound - Ulceration to right heel and left lower extremity with adherent slough, no surrounding erythema, warmth, or purulent drainage noted at this time. Wound Measurements and Assessment WC - Nurse 1 - General Ulcer Measurement Start: 10/31/19 14:54 Freq: Status: Active Protocol: Activity Type Activity Date Activity User E-Sign Co-Sign Detail Recorded Client Recorded Date Recorded By Document 10/31/19 14:54 [id number] 10/31/19 15:16 10/31/19 14:54 Wound Center Nurse 1 [Ulcer Assessment] 13-right heel ulcer -Combined with other wound No -Current Size (cm) - Length 0.8 -Current Size (cm) - Width 1.1 -Current Size (cm) - Depth 0.2 -Total Square Cm 0.88 -Photo Taken Yes -Epithelialization Small 1-33% -Tunneling No -Undermining/Tunneling No -Circular Undermining No -Classification - Thickness Unclassifiable (Eschar Covered ) -Exudate Amt None Present -Wound Margin Flat & Intact -Granulation Amt None Present (0 %) -Slough/Fibrin Yes -Necrosis Amt Large (67-100%) -Necrotic Tissue Type Adherent Slough -Structure Exposed N/A -Texture (Michelle-wound Skin Appearance) Assessed, Friable -Moisture (Michelle-wound Skin Appearance Assessed,Dry/ ) Scaly -Color (Michelle-wound Skin Appearance) Assessed -Temperature (Michelle-wound Skin No Abnormality Appearance) (Pt Warm) -Tenderness on Palpation (Michelle-wound No Skin Appearance) -Ulcer Cleansing Rinsed/ Irrigated with Saline -Foul Odor after Cleansing No -Anesthetic Used 4% Lidocaine Solution 12-left mid moser -Combined with other wound No -Current Size (cm) - Length 0.5 -Current Size (cm) - Width 0.5 -Current Size (cm) - Depth 0.1 -Total Square Cm 0.25 -Photo Taken Yes -Epithelialization Small 1-33% -Tunneling No -Undermining/Tunneling No -Circular Undermining No -Classification - Thickness Full Thickness without Exposed Support Structure -Exudate Amt Small -Exudate Type Serosanguineous -Wound Margin Flat & Intact -Granulation Amt Medium (34-66%) -Granulation Quality Red -Slough/Fibrin Yes -Necrosis Amt Small (1-33%) -Necrotic Tissue Type Adherent Slough -Structure Exposed N/A -Texture (Michelle-wound Skin Appearance) Assessed, Localized Edema -Moisture (Michelle-wound Skin Appearance Assessed,Dry/ ) Scaly -Color (Michelle-wound Skin Appearance) Assessed -Temperature (Michelle-wound Skin No Abnormality Appearance) (Pt Warm) -Tenderness on Palpation (Michelle-wound No Skin Appearance) -Ulcer Cleansing Rinsed/ Irrigated with Saline -Anesthetic Used 4% Lidocaine Solution #11 left superior moser -Combined with other wound No -Current Size (cm) - Length 1.3 -Current Size (cm) - Width 1.8 -Current Size (cm) - Depth 0.1 -Total Square Cm 2.34 -Photo Taken Yes -Epithelialization Medium 34-66% -Tunneling No -Undermining/Tunneling No -Circular Undermining No -Classification - Thickness Full Thickness without Exposed Support Structure -Exudate Amt None Present -Wound Margin Indistinct, Non -Visible -Granulation Amt None Present (0 %) -Slough/Fibrin Yes -Necrosis Amt Large (67-100%) -Necrotic Tissue Type Adherent Slough -Structure Exposed N/A -Texture (Michelle-wound Skin Appearance) Assessed, Localized Edema -Moisture (Michelle-wound Skin Appearance Assessed,Dry/ ) Scaly -Color (Michelle-wound Skin Appearance) Assessed -Temperature (Michelle-wound Skin No Abnormality Appearance) (Pt Warm) -Tenderness on Palpation (Michelle-wound No Skin Appearance) -Ulcer Cleansing Rinsed/ Irrigated with Saline -Foul Odor after Cleansing No -Anesthetic Used 4% Lidocaine Solution [Edema Assessment] -Lower Limb Edema Present Yes -Right Calf (cm) 34 -Right Ankle (cm) 19.6 -Left Calf (cm) 32.5 -Left Ankle (cm) 20.1 WC - Nurse 2 - General Ulcer CM Notes Start: 10/31/19 14:54 Freq: Status: Active Protocol: Activity Type Activity Date Activity User E-Sign Co-Sign Detail Recorded Client Recorded Date Recorded By Document 10/31/19 15:49 MW [id number] 10/31/19 16:01 MW 10/31/19 15:49 Wound Center Nurse 2 [Procedure/Treatment] 13-right heel ulcer -Time 15:50 -Correct Patient Yes -Correct Side, Site, Position Yes -Correct Procedure Yes -Procedure Performed Yes -Type of Procedure Debridement -Clinical Debridement Subcutaneous -Post Debridement Size (cm) - Length 1.3 -Post Debridement Size (cm) - Width 1.5 -Post Debridement Size (cm) - Depth 0.3 -Total Square Cm 1.95 -Wound/Ulcer Outcome Not Healed -Ulcer Cleansing Rinsed/ Irrigated with Saline -Foul Odor after Cleansing No -Bioengineered Tissue No -Bleeding Controlled with Pressure -Offloading No -Treatment Response Procedure Tolerated Well 12-left mid moser -Time 15:51 -Correct Patient Yes -Correct Side, Site, Position Yes -Correct Procedure Yes -Procedure Performed Yes -Type of Procedure Debridement -Clinical Debridement Subcutaneous -Post Debridement Size (cm) - Length 1.1 -Post Debridement Size (cm) - Width 1.0 -Post Debridement Size (cm) - Depth 0.1 -Total Square Cm 1.10 -Wound/Ulcer Outcome Not Healed -Ulcer Cleansing Rinsed/ Irrigated with Saline -Foul Odor after Cleansing No -Bioengineered Tissue No -Bleeding Controlled with Pressure -Offloading No -Treatment Response Procedure Tolerated Well #11 left superior moser -Time 15:51 -Correct Patient Yes -Correct Side, Site, Position Yes -Correct Procedure Yes -Procedure Performed Yes -Type of Procedure Debridement -Clinical Debridement Subcutaneous -Post Debridement Size (cm) - Length 2.0 -Post Debridement Size (cm) - Width 2.4 -Post Debridement Size (cm) - Depth 0.1 -Total Square Cm 4.80 -Wound/Ulcer Outcome Not Healed -Ulcer Cleansing Rinsed/ Irrigated with Saline -Foul Odor after Cleansing No -Bioengineered Tissue No -Bleeding Controlled with Pressure -Offloading No -Treatment Response Procedure Tolerated Well [See Physician Procedure note for Specifics] Pain Scale: 0-10 Numeric [Pain] -Is Patient Pain Free? Yes Musculoskeletal: Arthritic Changes, - - Generalized debility noted Neurological: Neuro grossly intact Psych/Mental Status: Normal Affect, Appropriate Debridement Note Post-Debridement Measurements/Treatment WC - Nurse 2 - General Ulcer CM Notes Start: 10/31/19 14:54 Freq: Status: Active Protocol: Activity Type Activity Date Activity User E-Sign Co-Sign Detail Recorded Client Recorded Date Recorded By Document 10/31/19 15:49 MW [id number] 10/31/19 16:01 MW 10/31/19 15:49 Wound Center Nurse 2 13-right heel ulcer -Time 15:50 -Correct Patient Yes -Correct Side, Site, Position Yes -Correct Procedure Yes -Procedure Performed Yes -Type of Procedure Debridement -Clinical Debridement Subcutaneous -Post Debridement Size (cm) - Length 1.3 -Post Debridement Size (cm) - Width 1.5 -Post Debridement Size (cm) - Depth 0.3 -Total Square Cm 1.95 -Wound/Ulcer Outcome Not Healed -Ulcer Cleansing Rinsed/ Irrigated with Saline -Foul Odor after Cleansing No -Bioengineered Tissue No -Bleeding Controlled with Pressure -Offloading No -Treatment Response Procedure Tolerated Well 12-left mid moser -Time 15:51 -Correct Patient Yes -Correct Side, Site, Position Yes -Correct Procedure Yes -Procedure Performed Yes -Type of Procedure Debridement -Clinical Debridement Subcutaneous -Post Debridement Size (cm) - Length 1.1 -Post Debridement Size (cm) - Width 1.0 -Post Debridement Size (cm) - Depth 0.1 -Total Square Cm 1.10 -Wound/Ulcer Outcome Not Healed -Ulcer Cleansing Rinsed/ Irrigated with Saline -Foul Odor after Cleansing No -Bioengineered Tissue No -Bleeding Controlled with Pressure -Offloading No -Treatment Response Procedure Tolerated Well #11 left superior moser -Time 15:51 -Correct Patient Yes -Correct Side, Site, Position Yes -Correct Procedure Yes -Procedure Performed Yes -Type of Procedure Debridement -Clinical Debridement Subcutaneous -Post Debridement Size (cm) - Length 2.0 -Post Debridement Size (cm) - Width 2.4 -Post Debridement Size (cm) - Depth 0.1 -Total Square Cm 4.80 -Wound/Ulcer Outcome Not Healed -Ulcer Cleansing Rinsed/ Irrigated with Saline -Foul Odor after Cleansing No -Bioengineered Tissue No -Bleeding Controlled with Pressure -Offloading No -Treatment Response Procedure Tolerated Well Pain Scale: 0-10 Numeric Is Patient Pain Free? Yes Wound debrided: Neuropathic Stage III pressure ulcer to right heel Laterality: Right Type of Debridement: Excisional debridement Anesthesia Used: 5% Lidocaine Gel Depth: Down to and including healthy tissue, in the subcutaneous layer Percentage of wound debrided: 100 Instrument Used: 5mm curette Tissue Removed: Slough and devitalized tissue Severity: Fat Layer Exposed Amount of bleeding with debridement: Mild Bleeding Controlled with: Pressure Patient tolerated procedure well - Additional Wound Wound debrided: Left lower extremity ulcers Laterality: Left Type of Debridement: Excisional debridement Anesthesia Used: 5% Lidocaine Gel Depth: in the subcutaneous layer Percentage of wound debrided: 100 Instrument Used: 5mm curette Tissue Removed: Slough and devitalized tissue Severity: Fat Layer Exposed Amount of bleeding with debridement: Mild Bleeding Controlled with: Pressure Patient tolerated procedure: Patient tolerated procedure well Assessment/Plan Active Problems (Last Reviewed 08/15/19 @ 14:[address] Janes Loera MD) Neuropathy (Acute) Chronic pain of right heel (Chronic) Non-healing ulcer of right foot with fat layer exposed (Acute) Nonhealing ulcer of left lower extremity with fat layer exposed (Acute) Assessment: Same as above Plan: The patient was seen and examined at the wound center today and was updated on the plan of care. A subcutaneous debridement was performed today. The patient tolerated the procedure well. The patients wound care will consist of:Application of moistened silver cell cover with gauze change daily. Single- layer Tubigrip's for compression. Patient will also have a fabricated Heel protector in place. Nursing to give supplies and demonstrate how to utilize for offloading.Wound cultures were collected. Baseline bloodwork And Vascular studies Hold at this time as recent reports were reviewed. Patient educated on the importance of diet on wound healing and instructed to increase protein and vitamin C intake. Patient verbalized understanding.Given the delayed wound healing in fact the wounds have been present greater than 4 weeks we will apply for an skin substitute. Patient will follow up at wound healing center in one week or sooner if needed. Due to the patient's debility and difficulty caring for himself and having his dressings changed, do believe that patient would benefit from home health care. Discussed following up with primary care to have home health care ordered As nurse practitioners are unable to order this in [place].This note was generated with [employer] software. It may contain incorrect words, spelling, and punctuation that were not noted in checking the note before signing. This note was generated with [employer] dictation software. It may contain incorrect words, spelling, and punctuation that were not noted in checking the note before signing. Office Visits / Consults: [id number] OV L4 Est [id number]: [id number] Luz subq tissue 20 sq cm/<
--- NOTE | 2019-11-01 08:51 | WC ---
Patient was seen yesterday at the wound center and examined per Alfonzo Duncan [employer]. Alfonzo is concerned with the patient and his being able to perform daily wound care dressing changes. Alfonzo recommended home health to assist with wound care. Patient has an appointment today with Dr. Holcomb. Spoke to Dr. Holcobm's nurse this morning to inform of Alfonzo Duncan's request for patient to be set up with home health per PCP. Nurse stated they will address this during patient appt today.
[2019-11-07 14:04] VITALS: BP 129/59; PULSE 70; RESP 18; TEMP 36.8; BMI 21.2
--- NOTE | 2019-11-07 16:40 | PN.PCM_ITS ---
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 Status: Acute Current Visit: Yes Code(s): L97.922 - Non-pressure chronic ulcer of unspecified part of left lower leg with fat layer exposed (2) Non-healing ulcer of right foot with fat layer exposed Status: Acute Current Visit: Yes Code(s): L97.512 - Non-pressure chronic ulcer of other part of right foot with fat layer exposed Comment: heel (3) Neuropathy Status: Acute Current Visit: Yes Code(s): G62.9 - Polyneuropathy, unspecified (4) Chronic pain of right heel Status: Chronic Current Visit: Yes Code(s): M79.671 - Pain in right foot; G89.29 - Other chronic pain (5) Rectal prolapse Status: Acute Current Visit: No Code(s): K62.3 - Rectal prolapse (6) Atherosclerotic heart disease of [place] coronary artery without angina pectoris Status: Chronic Current Visit: No Qualifiers: Code(s): I25.10 - Atherosclerotic heart disease of [place] coronary artery without angina pectoris (7) Debility Status: Chronic Current Visit: No Code(s): R53.81 - Other malaise (8) Essential (primary) hypertension Status: Chronic Current Visit: No Code(s): I10 - Essential (primary) hypertension (9) Hyperlipidemia Status: Chronic Current Visit: No Qualifiers: Code(s): E78.5 - Hyperlipidemia, unspecified (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 Status: Chronic Current Visit: No Code(s): I77.9 - Disorder of arteries and arterioles, unspecified Comment: SFA PTCA/Stent 08/2012; Stent to distal RSFA to popliteal, Stent-Prox RSFA 10/23/13 (11) Right bundle branch block (RBBB) Status: Chronic Current Visit: No Code(s): I45.10 - Unspecified right bundle-branch block Type of Wound Date of Service: 11/07/19 Chief Complaint: Chronic right heel ulceration, left lower leg ulcer History of Wound: Joaquin is an 83-year-old male who presents to the clinic today with complaints of a left lower extremity ulcer, as well as a chronic ulceration of the right heel, Both of which have been present for the last 2 months. He has a past medical history significant for CAD, PVD, peripheral neuropathy (Currently following up with neurology), and arthritis. He has a history of angioplasty and stent placement in his right superficial femoral artery and right popliteal artery. He continues to see Dr. Rose for vascular management And his most recent ABIs and 02/2019 showed a right RALPH of 1.07 and a left RALPH of 0.67. He also had vascular studies done in September 2019 from his primary care which showed valvular competence.The patient's states that they have been utilizing an [id number] salve on the patient's wounds with out much improvement. They note clear to yellow Moderate drainage at times. He denies any purulent drainage, increasing pain, redness, swelling, foul odor, or other signs of infection. Patient also reports painful ulcerations of his right heel, which have been present Intermittently for the past 2 years. He was previously seen at the wound center for management of these ulcers. In the past, his cultures were positive for Maria M, and he was treated with antifungal topical treatment. He also had previously improved with use of orthotics, but reports that he is unable to tolerate these at this time. He was previously on gabapentin, for management of his chronic peripheral neuropathy. However his primary care provider has since discontinued his gabapentin Given the patient's multiple falls. He rates his pain 8 out of 10 and reports pain is intermittent and occurs with pressure/weightbearing. He is ambulatory with a cane. He also states that since his recent rectal prolapse that he has been almost entirely homebound and more debilitated and having more difficulty caring for himself. He denies any other acute concerns. Progress of Wound: 11/07/2019?patient's cultures were reviewed and showed Staphylococcus aureus he was placed on Bactrim and is tolerating well. His heel wound has not shown much improvement, his left lower extremity ulcers have show ed slight improvement. First application of purapply a.m. today - Physical Exam Vital Signs Temp Pulse Resp BP 98.3 F 70 18 129/59 H 11/07/19 14:04 11/07/19 14:04 11/07/19 14:04 11/07/19 14:04 General: Alert, Oriented x3, Cooperative, No apparent distress HEENT: Atraumatic Oral: Moist Mucosa Lungs: Clear to auscultation Cardiovascular: Regular rate Abdomen: Soft, Non Tender Extremities: No clubbing, No cyanosis, Diminished Peripheral Pulses, Edema - general bilateral lower extremity edema Skin: Ulcer/ Wound - See nursing documentation, ulcerations to bilateral lower extremities with adherent slough, no signs of obvious infection at this time., Chronic tenderness to right heel Wound Measurements and Assessment WC - Nurse 1 - General Ulcer Measurement Start: 10/31/19 14:54 Freq: Status: Active Protocol: Activity Type Activity Date Activity User E-Sign Co-Sign Detail Recorded Client Recorded Date Recorded By Document 11/07/19 14:04 [facility] [id number] 11/07/19 14:14 [facility] 11/07/19 14:04 Wound Center Nurse 1 [Ulcer Assessment] 13-right heel ulcer -Combined with other wound No -Current Size (cm) - Length 1.5 -Current Size (cm) - Width 1.3 -Current Size (cm) - Depth 0.1 -Total Square Cm 1.95 -Photo Taken No -Epithelialization None Present -Tunneling No -Undermining/Tunneling No -Circular Undermining No -Exudate Amt Small -Exudate Type Serosanguineous -Wound Margin Flat & Intact -Granulation Amt Medium (34-66%) -Granulation Quality Red -Slough/Fibrin Yes -Necrosis Amt Small (1-33%) -Necrotic Tissue Type Adherent Slough -Structure Exposed N/A -Texture (Michelle-wound Skin Appearance) Assessed -Moisture (Michelle-wound Skin Appearance Assessed,Dry/ ) Scaly -Color (Michelle-wound Skin Appearance) Assessed -Temperature (Michelle-wound Skin No Abnormality Appearance) (Pt Warm) -Tenderness on Palpation (Michelle-wound No Skin Appearance) -Ulcer Cleansing Rinsed/ Irrigated with Saline -Foul Odor after Cleansing No -Anesthetic Used 4% Lidocaine Solution 12-left mid moser -Combined with other wound No -Current Size (cm) - Length 0.7 -Current Size (cm) - Width 0.5 -Current Size (cm) - Depth 0.1 -Total Square Cm 0.35 -Photo Taken No -Epithelialization Small 1-33% -Tunneling No -Undermining/Tunneling No -Circular Undermining No -Exudate Amt Small -Exudate Type Serosanguineous -Wound Margin Flat & Intact -Granulation Amt None Present (0 %) -Slough/Fibrin Yes -Necrosis Amt Large (67-100%) -Necrotic Tissue Type Adherent Slough -Structure Exposed N/A -Texture (Michelle-wound Skin Appearance) Assessed, Localized Edema -Moisture (Michelle-wound Skin Appearance Assessed,Dry/ ) Scaly -Color (Michelle-wound Skin Appearance) Assessed -Temperature (Michelle-wound Skin No Abnormality Appearance) (Pt Warm) -Tenderness on Palpation (Michelle-wound No Skin Appearance) -Ulcer Cleansing Rinsed/ Irrigated with Saline -Foul Odor after Cleansing No -Anesthetic Used 4% Lidocaine Solution #11 left superior moser -Combined with other wound No -Current Size (cm) - Length 1.1 -Current Size (cm) - Width 1.1 -Current Size (cm) - Depth 0.1 -Total Square Cm 1.21 -Photo Taken No -Epithelialization None Present -Tunneling No -Undermining/Tunneling No -Circular Undermining No -Exudate Amt Small -Exudate Type Serosanguineous -Wound Margin Flat & Intact -Granulation Amt Medium (34-66%) -Granulation Quality Red -Slough/Fibrin Yes -Necrosis Amt Medium (34-66%) -Necrotic Tissue Type Adherent Slough -Structure Exposed N/A -Texture (Michelle-wound Skin Appearance) Assessed, Localized Edema -Moisture (Michelle-wound Skin Appearance Assessed,Dry/ ) Scaly -Color (Michelle-wound Skin Appearance) Assessed -Temperature (Michelle-wound Skin No Abnormality Appearance) (Pt Warm) -Tenderness on Palpation (Michelle-wound No Skin Appearance) -Ulcer Cleansing Rinsed/ Irrigated with Saline -Foul Odor after Cleansing No -Anesthetic Used 4% Lidocaine Solution [Edema Assessment] -Lower Limb Edema Present Yes -Right Calf (cm) 32 -Right Ankle (cm) 19.4 -Left Calf (cm) 26.7 -Left Ankle (cm) 20.5 WC - Nurse 2 - General Ulcer CM Notes Start: 10/31/19 14:54 Freq: Status: Active Protocol: Activity Type Activity Date Activity User E-Sign Co-Sign Detail Recorded Client Recorded Date Recorded By Document 11/07/19 16:07 MARK [id number] 11/07/19 16:14 [facility] 11/07/19 16:07 Wound Center Nurse 2 [Procedure/Treatment] 13-right heel ulcer -Time 14:30 -Correct Patient Yes -Correct Side, Site, Position Yes -Correct Procedure Yes -Type of Procedure Debridement -Clinical Debridement Subcutaneous -Post Debridement Size (cm) - Length 1.6 -Post Debridement Size (cm) - Width 1.4 -Post Debridement Size (cm) - Depth 0.3 -Total Square (cm) 2.24 -Wound/Ulcer Outcome Not Healed -Ulcer Cleansing Rinsed/ Irrigated with Saline -Foul Odor after Cleansing No -Type of bioengineered Tissue [id number] -Expiration Date 06/14/21 -Product Lot Number [id number] -Percent Used 50 -Saline Lot Number [id number] -Bleeding Controlled with Pressure -Treatment Response Procedure Tolerated Well 12-left mid moser -Time 14:30 -Correct Patient Yes -Correct Side, Site, Position Yes -Correct Procedure Yes -Procedure Performed Yes -Type of Procedure Debridement -Clinical Debridement Subcutaneous -Post Debridement Size (cm) - Length 1.0 -Post Debridement Size (cm) - Width 0.6 -Post Debridement Size (cm) - Depth 0.1 -Total Square (cm) 0.60 -Wound/Ulcer Outcome Not Healed -Ulcer Cleansing Rinsed/ Irrigated with Saline -Foul Odor after Cleansing No -Type of bioengineered Tissue [id number] -Expiration Date 06/14/21 -Product Lot Number [id number] -Percent Used 50 -Saline Lot Number [id number] -Bleeding Controlled with Pressure -Treatment Response Procedure Tolerated Well #11 left superior moser -Time 14:30 -Correct Patient Yes -Correct Side, Site, Position Yes -Correct Procedure Yes -Procedure Performed Yes -Type of Procedure Debridement -Clinical Debridement Subcutaneous -Post Debridement Size (cm) - Length 1.6 -Post Debridement Size (cm) - Width 2 -Post Debridement Size (cm) - Depth 0.1 -Total Square (cm) 3.2 -Wound/Ulcer Outcome Not Healed -Ulcer Cleansing Rinsed/ Irrigated with Saline -Foul Odor after Cleansing No -Bleeding Controlled with Pressure -Treatment Response Procedure Tolerated Well [See Physician Procedure note for Specifics] Pain Scale: 0-10 Numeric [Pain] -Is Patient Pain Free? Yes Neurological: Neuro grossly intact Psych/Mental Status: Normal Affect, Appropriate, Alert and oriented to time, place, person, mood and affect Debridement Note Post-Debridement Measurements/Treatment WC - Nurse 2 - General Ulcer CM Notes Start: 10/31/19 14:54 Freq: Status: Active Protocol: Activity Type Activity Date Activity User E-Sign Co-Sign Detail Recorded Client Recorded Date Recorded By Document 10/31/19 15:49 MW [id number] 10/31/19 16:01 MW Document 11/07/19 16:07 PL [id number] 11/07/19 16:14 PL 10/31/19 11/07/19 15:49 16:07 Wound Center Nurse 2 13-right heel ulcer -Time 15:50 14:30 -Correct Patient Yes Yes -Correct Side, Site, Position Yes Yes -Correct Procedure Yes Yes -Procedure Performed Yes -Type of Procedure Debridement Debridement -Clinical Debridement Subcutaneous Subcutaneous -Post Debridement Size (cm) - Length 1.3 1.6 -Post Debridement Size (cm) - Width 1.5 1.4 -Post Debridement Size (cm) - Depth 0.3 0.3 -Total Square (cm) 1.95 2.24 -Wound/Ulcer Outcome Not Healed Not Healed -Ulcer Cleansing Rinsed/ Rinsed/ Irrigated with Irrigated with Saline Saline -Foul Odor after Cleansing No No -Bioengineered Tissue No -Type of bioengineered Tissue [id number] -Expiration Date 06/14/21 -Product Lot Number [id number] -Percent Used 50 -Saline Lot Number [id number] -Bleeding Controlled with Pressure Pressure -Offloading No -Treatment Response Procedure Procedure Tolerated Well Tolerated Well 12-left mid msoer -Time 15:51 14:30 -Correct Patient Yes Yes -Correct Side, Site, Position Yes Yes -Correct Procedure Yes Yes -Procedure Performed Yes Yes -Type of Procedure Debridement Debridement -Clinical Debridement Subcutaneous Subcutaneous -Post Debridement Size (cm) - Length 1.1 1.0 -Post Debridement Size (cm) - Width 1.0 0.6 -Post Debridement Size (cm) - Depth 0.1 0.1 -Total Square (cm) 1.10 0.60 -Wound/Ulcer Outcome Not Healed Not Healed -Ulcer Cleansing Rinsed/ Rinsed/ Irrigated with Irrigated with Saline Saline -Foul Odor after Cleansing No No -Bioengineered Tissue No -Type of bioengineered Tissue [id number] -Expiration Date 06/14/21 -Product Lot Number [id number] -Percent Used 50 -Saline Lot Number [id number] -Bleeding Controlled with Pressure Pressure -Offloading No -Treatment Response Procedure Procedure Tolerated Well Tolerated Well #11 left superior moser -Time 15:51 14:30 -Correct Patient Yes Yes -Correct Side, Site, Position Yes Yes -Correct Procedure Yes Yes -Procedure Performed Yes Yes -Type of Procedure Debridement Debridement -Clinical Debridement Subcutaneous Subcutaneous -Post Debridement Size (cm) - Length 2.0 1.6 -Post Debridement Size (cm) - Width 2.4 2 -Post Debridement Size (cm) - Depth 0.1 0.1 -Total Square (cm) 4.80 3.2 -Wound/Ulcer Outcome Not Healed Not Healed -Ulcer Cleansing Rinsed/ Rinsed/ Irrigated with Irrigated with Saline Saline -Foul Odor after Cleansing No No -Bioengineered Tissue No -Bleeding Controlled with Pressure Pressure -Offloading No -Treatment Response Procedure Procedure Tolerated Well Tolerated Well Pain Scale: 0-10 Numeric Is Patient Pain Free? Yes Yes Wound debrided: Pressure ulcer right heel, nonhealing ulcer left lower extremity Type of Debridement: Excisional debridement Anesthesia Used: 5% Lidocaine Gel Depth: Down to and including healthy tissue, in the subcutaneous layer Percentage of wound debrided: 100 Instrument Used: 5mm curette Tissue Removed: Slough and devitalized tissue Severity: Fat Layer Exposed Amount of bleeding with debridement: Mild Bleeding Controlled with: Pressure, Compression and gauze Patient tolerated procedure well Assessment/Plan Active Problems (Last Reviewed 08/15/19 @ 14:[address] Janes Loera MD) Neuropathy (Acute) Chronic pain of right heel (Chronic) Non-healing ulcer of right foot with fat layer exposed (Acute) heel Nonhealing ulcer of left lower extremity with fat layer exposed (Acute) Assessment: Same as above Plan: The patient was seen and examined at the wound center today and was updated on the plan of care. A subcutaneous debridement was performed today. The patient tolerated the procedure well. The patients wound care will consist of: 2x4 cm Purapply AM #1 was applied after subcutaneous debridement, it was then covered with the wound veil and a thin layer of hydrogel, and secured with St stefany-Strips, 100% of the product was used/layered with 0% waste. Aquacel extra over top. Patient tolerated the procedure well.. Single-layer Tubigrip's for compression. OPTi foam ordered for offloading as patient unable to make offloading heel protector with ABD pad. Wound cultures were collected prior and reviewed above. Baseline bloodwork And Vascular studies Held at this time as recent reports were reviewed. Patient educated on the importance of diet on wound healing and instructed to increase protein and vitamin C intake. Patient verbalized understanding.Given the delayed wound healing in fact the wounds have been present greater than 4 weeks we will apply for an skin substitute. Patient will follow up at wound healing center in one week or sooner if needed. Due to the patient's debility and difficulty caring for himself and having his dressings changed, do believe that patient would benefit from home health care. Discussed following up with primary care to have home health care ordered As nurse practitioners are unable to order this in [place].This note was generated with [employer] dictation software. It may contain incorrect words, spelling, and punctuation that were not noted in checking the note before signing. This note was generated with [employer] dictation software. It may contain incorrect words, spelling, and punctuation that were not noted in checking the note before signing. [id number]: [id number] Skin sub graft trnk/arm/leg
[2019-11-14 13:18] VITALS: BP 103/61; PULSE 62; RESP 18; TEMP 36.1; BMI 21.2
--- NOTE | 2019-11-14 17:04 | PN.PCM_ITS ---
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 Status: Acute Current Visit: Yes Code(s): L97.922 - Non-pressure chronic ulcer of unspecified part of left lower leg with fat layer exposed (2) Non-healing ulcer of right foot with fat layer exposed Status: Acute Current Visit: Yes Code(s): L97.512 - Non-pressure chronic ulcer of other part of right foot with fat layer exposed Comment: heel (3) Neuropathy Status: Acute Current Visit: Yes Code(s): G62.9 - Polyneuropathy, unspecified (4) Chronic pain of right heel Status: Chronic Current Visit: Yes Code(s): M79.671 - Pain in right foot; G89.29 - Other chronic pain (5) Rectal prolapse Status: Acute Current Visit: No Code(s): K62.3 - Rectal prolapse (6) Atherosclerotic heart disease of [place] coronary artery without angina pectoris Status: Chronic Current Visit: No Qualifiers: Code(s): I25.10 - Atherosclerotic heart disease of [place] coronary artery without angina pectoris (7) Debility Status: Chronic Current Visit: No Code(s): R53.81 - Other malaise (8) Essential (primary) hypertension Status: Chronic Current Visit: No Code(s): I10 - Essential (primary) hypertension (9) Hyperlipidemia Status: Chronic Current Visit: No Qualifiers: Code(s): E78.5 - Hyperlipidemia, unspecified (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 Status: Chronic Current Visit: No Code(s): I77.9 - Disorder of arteries and arterioles, unspecified Comment: SFA PTCA/Stent 08/2012; Stent to distal RSFA to popliteal, Stent-Prox RSFA 10/23/13 (11) Right bundle branch block (RBBB) Status: Chronic Current Visit: No Code(s): I45.10 - Unspecified right bundle-branch block Type of Wound Date of Service: 11/14/19 Chief Complaint: Chronic right heel ulceration, left lower leg ulcer History of Wound: Joaquin is an 83-year-old male who presents to the clinic today with complaints of a left lower extremity ulcer, as well as a chronic ulceration of the right heel, Both of which have been present for the last 2 months. He has a past medical history significant for CAD, PVD, peripheral neuropathy (Currently following up with neurology), and arthritis. He has a history of angioplasty and stent placement in his right superficial femoral artery and right popliteal artery. He continues to see Dr. Rose for vascular management And his most recent ABIs and 02/2019 showed a right RALPH of 1.07 and a left RALPH of 0.67. He also had vascular studies done in September 2019 from his primary care which showed valvular competence.The patient's states that they have been utilizing an cyih-zyj-orqikuq salve on the patient's wounds with out much improvement. They note clear to yellow Moderate drainage at times. He denies any purulent drainage, increasing pain, redness, swelling, foul odor, or other signs of infection. Patient also reports painful ulcerations of his right heel, which have been present Intermittently for the past 2 years. He was previously seen at the wound center for management of these ulcers. In the past, his cultures were positive for Maria M, and he was treated with antifungal topical treatment. He also had previously improved with use of orthotics, but reports that he is unable to tolerate these at this time. He was previously on gabapentin, for management of his chronic peripheral neuropathy. However his primary care provider has since discontinued his gabapentin Given the patient's multiple falls. He rates his pain 8 out of 10 and reports pain is intermittent and occurs with pressure/weightbearing. He is ambulatory with a cane. He also states that since his recent rectal prolapse that he has been almost entirely homebound and more debilitated and having more difficulty caring for himself. He denies any other acute concerns. Progress of Wound: 11/07/2019?patient's cultures were reviewed and showed Staphylococcus aureus he was placed on Bactrim and is tolerating well. His heel wound has not shown much improvement, his left lower extremity ulcers have show ed slight improvement. First application of purapply a.m. today. 11/14/2019?no new concerns, there is some maceration of the heel and therefore will hold on pure apply application to the heel, second pure apply application to the left lower extremity. Wound sizes are stable - Physical Exam Vital Signs Temp Pulse Resp BP 97 F L 62 18 103/61 11/14/19 13:18 11/14/19 13:18 11/14/19 13:18 11/14/19 13:18 General: Alert, Oriented x3, Cooperative, No apparent distress HEENT: Atraumatic Lungs: Clear to auscultation Cardiovascular: Regular rate, Regular Rhythm Abdomen: Soft, Non Tender Extremities: No clubbing, No cyanosis, Edema - Generalized bilateral lower extremity edema Skin: Ulcer/ Wound - Ulceration to right heel with adherent slough, surrounding maceration present, left lower extremity ulcers with adherent slough, no signs of infection at this time. Wound Measurements and Assessment WC - Nurse 1 - General Ulcer Measurement Start: 10/31/19 14:54 Freq: Status: Active Protocol: Activity Type Activity Date Activity User E-Sign Co-Sign Detail Recorded Client Recorded Date Recorded By Document 11/14/19 13:18 RB [id number] 11/14/19 13:32 RB 11/14/19 13:18 Wound Center Nurse 1 [Ulcer Assessment] 13-right heel ulcer -Combined with other wound No -Current Size (cm) - Length 1.2 -Current Size (cm) - Width 1.9 -Current Size (cm) - Depth 0.1 -Total Square Cm 2.28 -Tunneling No -Undermining/Tunneling No -Circular Undermining No -Exudate Amt Medium -Exudate Type Serosanguineous -Wound Margin Flat & Intact -Granulation Amt Small (1-33%) -Granulation Quality [place] -Slough/Fibrin Yes -Necrosis Amt Medium (34-66%) -Necrotic Tissue Type Adherent Slough -Structure Exposed N/A -Texture (Michelle-wound Skin Appearance) Assessed -Moisture (Michelle-wound Skin Appearance Assessed ) -Color (Michelle-wound Skin Appearance) Assessed -Temperature (Michelle-wound Skin No Abnormality Appearance) (Pt Warm) -Tenderness on Palpation (Michelle-wound No Skin Appearance) -Ulcer Cleansing Wound Cleanser -Foul Odor after Cleansing No -Anesthetic Used 5% Lidocaine Gel 12-left mid moser -Combined with other wound No -Current Size (cm) - Length 0.1 -Current Size (cm) - Width 0.1 -Current Size (cm) - Depth 0.1 -Total Square Cm 0.01 -Tunneling No -Undermining/Tunneling No -Circular Undermining No -Exudate Amt None Present -Wound Margin Flat & Intact -Granulation Amt Small (1-33%) -Granulation Quality [place] -Slough/Fibrin Yes -Necrosis Amt Large (67-100%) -Necrotic Tissue Type Adherent Slough -Structure Exposed N/A -Texture (Michelle-wound Skin Appearance) Assessed -Moisture (Michelle-wound Skin Appearance Assessed ) -Color (Michelle-wound Skin Appearance) Assessed -Temperature (Michelle-wound Skin No Abnormality Appearance) (Pt Warm) -Tenderness on Palpation (Michelle-wound No Skin Appearance) -Ulcer Cleansing Wound Cleanser -Foul Odor after Cleansing No -Anesthetic Used 4% Lidocaine Solution #11 left superior moser -Combined with other wound No -Current Size (cm) - Length 0.1 -Current Size (cm) - Width 0.1 -Current Size (cm) - Depth 0.1 -Total Square Cm 0.01 -Tunneling No -Undermining/Tunneling No -Circular Undermining No -Exudate Amt None Present -Wound Margin Flat & Intact -Granulation Amt Medium (34-66%) -Granulation Quality [place] -Slough/Fibrin Yes -Necrosis Amt Small (1-33%) -Necrotic Tissue Type Adherent Slough -Structure Exposed N/A -Texture (Michelle-wound Skin Appearance) Assessed -Moisture (Michelle-wound Skin Appearance Assessed ) -Color (Michelle-wound Skin Appearance) Assessed -Temperature (Michelle-wound Skin No Abnormality Appearance) (Pt Warm) -Tenderness on Palpation (Michelle-wound No Skin Appearance) -Ulcer Cleansing Wound Cleanser -Foul Odor after Cleansing No -Anesthetic Used 4% Lidocaine Solution [Edema Assessment] -Lower Limb Edema Present Yes -Right Calf (cm) 30.5 -Right Ankle (cm) 21 -Left Calf (cm) 26 -Left Ankle (cm) 21.5 WC - Nurse 2 - General Ulcer CM Notes Start: 10/31/19 14:54 Freq: Status: Active Protocol: Activity Type Activity Date Activity User E-Sign Co-Sign Detail Recorded Client Recorded Date Recorded By Document 11/14/19 13:44 MW [id number] 11/14/19 14:00 MW 11/14/19 13:44 Wound Center Nurse 2 [Procedure/Treatment] 13-right heel ulcer -Time 13:45 -Correct Patient Yes -Correct Side, Site, Position Yes -Correct Procedure Yes -Procedure Performed Yes -Type of Procedure Debridement -Clinical Debridement Subcutaneous -Post Debridement Size (cm) - Length 1.1 -Post Debridement Size (cm) - Width 2.1 -Post Debridement Size (cm) - Depth 0.1 -Total Square (cm) 2.31 -Wound/Ulcer Outcome Not Healed -Ulcer Cleansing Rinsed/ Irrigated with Saline -Foul Odor after Cleansing No -Bioengineered Tissue No -Bleeding Controlled with Pressure -Offloading No -Treatment Response Procedure Tolerated Well 12-left mid moser -Time 13:46 -Correct Patient Yes -Correct Side, Site, Position Yes -Correct Procedure Yes -Procedure Performed Yes -Type of Procedure Debridement -Clinical Debridement Subcutaneous -Post Debridement Size (cm) - Length 1.0 -Post Debridement Size (cm) - Width 0.7 -Post Debridement Size (cm) - Depth 0.1 -Total Square (cm) 0.70 -Wound/Ulcer Outcome Not Healed -Ulcer Cleansing Rinsed/ Irrigated with Saline -Foul Odor after Cleansing No -Bioengineered Tissue Yes -Type of bioengineered Tissue [id number] -Expiration Date 07/03/21 -Product Lot Number [id number] -Percent Used 100 -Saline Lot Number [id number] -Bleeding Controlled with Pressure -Other APPLIED PURAPLY 2X2 (4 UNITS) -Offloading No -Treatment Response Procedure Tolerated Well #11 left superior moser -Time 13:46 -Correct Patient Yes -Correct Side, Site, Position Yes -Correct Procedure Yes -Procedure Performed Yes -Type of Procedure Debridement -Clinical Debridement Subcutaneous -Post Debridement Size (cm) - Length 1.6 -Post Debridement Size (cm) - Width 1.6 -Post Debridement Size (cm) - Depth 0.1 -Total Square (cm) 2.56 -Wound/Ulcer Outcome Not Healed -Ulcer Cleansing Rinsed/ Irrigated with Saline -Foul Odor after Cleansing No -Bioengineered Tissue Yes -Type of bioengineered Tissue [id number] -Expiration Date 07/03/21 -Product Lot Number [id number] -Percent Used 100 -Saline Lot Number [id number] -Bleeding Controlled with Pressure -Other PURAPLY 2X2 (4 UNITS) -Offloading No -Treatment Response Procedure Tolerated Well [See Physician Procedure note for Specifics] Pain Scale: 0-10 Numeric [Pain] -Is Patient Pain Free? Yes Neurological: Neuro grossly intact Psych/Mental Status: Normal Affect, Appropriate, Alert and oriented to time, place, person, mood and affect Debridement Note Post-Debridement Measurements/Treatment WC - Nurse 2 - General Ulcer CM Notes Start: 10/31/19 14:54 Freq: Status: Active Protocol: Activity Type Activity Date Activity User E-Sign Co-Sign Detail Recorded Client Recorded Date Recorded By Document 10/31/19 15:49 MW [id number] 10/31/19 16:01 MW Document 11/07/19 16:07 PL [id number] 11/07/19 16:14 PL Document 11/14/19 13:44 MW [id number] 11/14/19 14:00 MW 10/31/19 11/07/19 11/14/19 15:49 16:07 13:44 Wound Center Nurse 2 13-right heel ulcer -Time 15:50 14:30 13:45 -Correct Patient Yes Yes Yes -Correct Side, Site, Position Yes Yes Yes -Correct Procedure Yes Yes Yes -Procedure Performed Yes Yes -Type of Procedure Debridement Debridement Debridement -Clinical Debridement Subcutaneous Subcutaneous Subcutaneous -Post Debridement Size (cm) - Length 1.3 1.6 1.1 -Post Debridement Size (cm) - Width 1.5 1.4 2.1 -Post Debridement Size (cm) - Depth 0.3 0.3 0.1 -Total Square (cm) 1.95 2.24 2.31 -Wound/Ulcer Outcome Not Healed Not Healed Not Healed -Ulcer Cleansing Rinsed/ Rinsed/ Rinsed/ Irrigated with Irrigated with Irrigated with Saline Saline Saline -Foul Odor after Cleansing No No No -Bioengineered Tissue No No -Type of bioengineered Tissue [id number] -Expiration Date 06/14/21 -Product Lot Number [id number] -Percent Used 50 -Saline Lot Number [id number] -Bleeding Controlled with Pressure Pressure Pressure -Offloading No No -Treatment Response Procedure Procedure Procedure Tolerated Well Tolerated Well Tolerated Well 12-left mid moser -Time 15:51 14:30 13:46 -Correct Patient Yes Yes Yes -Correct Side, Site, Position Yes Yes Yes -Correct Procedure Yes Yes Yes -Procedure Performed Yes Yes Yes -Type of Procedure Debridement Debridement Debridement -Clinical Debridement Subcutaneous Subcutaneous Subcutaneous -Post Debridement Size (cm) - Length 1.1 1.0 1.0 -Post Debridement Size (cm) - Width 1.0 0.6 0.7 -Post Debridement Size (cm) - Depth 0.1 0.1 0.1 -Total Square (cm) 1.10 0.60 0.70 -Wound/Ulcer Outcome Not Healed Not Healed Not Healed -Ulcer Cleansing Rinsed/ Rinsed/ Rinsed/ Irrigated with Irrigated with Irrigated with Saline Saline Saline -Foul Odor after Cleansing No No No -Bioengineered Tissue No Yes -Type of bioengineered Tissue [id number] -Expiration Date 06/14/21 07/03/21 -Product Lot Number [id number] -Percent Used 50 100 -Saline Lot Number [id number] -Bleeding Controlled with Pressure Pressure Pressure -Other APPLIED PURAPLY 2X2 (4 UNITS) -Offloading No No -Treatment Response Procedure Procedure Procedure Tolerated Well Tolerated Well Tolerated Well #11 left superior moser -Time 15:51 14:30 13:46 -Correct Patient Yes Yes Yes -Correct Side, Site, Position Yes Yes Yes -Correct Procedure Yes Yes Yes -Procedure Performed Yes Yes Yes -Type of Procedure Debridement Debridement Debridement -Clinical Debridement Subcutaneous Subcutaneous Subcutaneous -Post Debridement Size (cm) - Length 2.0 1.6 1.6 -Post Debridement Size (cm) - Width 2.4 2 1.6 -Post Debridement Size (cm) - Depth 0.1 0.1 0.1 -Total Square (cm) 4.80 3.2 2.56 -Wound/Ulcer Outcome Not Healed Not Healed Not Healed -Ulcer Cleansing Rinsed/ Rinsed/ Rinsed/ Irrigated with Irrigated with Irrigated with Saline Saline Saline -Foul Odor after Cleansing No No No -Bioengineered Tissue No Yes -Type of bioengineered Tissue [id number] -Expiration Date 07/03/21 -Product Lot Number [id number] -Percent Used 100 -Saline Lot Number [id number] -Bleeding Controlled with Pressure Pressure Pressure -Other PURAPLY 2X2 (4 UNITS) -Offloading No No -Treatment Response Procedure Procedure Procedure Tolerated Well Tolerated Well Tolerated Well Pain Scale: 0-10 Numeric Is Patient Pain Free? Yes Yes Yes Wound debrided: Right heel ulcer and left lower extremity ulcer Type of Debridement: Excisional debridement Anesthesia Used: 4% Lidocaine Solution Depth: in the subcutaneous layer Percentage of wound debrided: 100 Instrument Used: 5mm curette, 7mm curette Tissue Removed: Slough and devitalized tissue Severity: Fat Layer Exposed Amount of bleeding with debridement: Mild Bleeding Controlled with: Pressure Patient tolerated procedure well Assessment/Plan Active Problems (Last Reviewed 08/15/19 @ 14:[address] Janes Loera MD) Neuropathy (Acute) Chronic pain of right heel (Chronic) Non-healing ulcer of right foot with fat layer exposed (Acute) heel Nonhealing ulcer of left lower extremity with fat layer exposed (Acute) Assessment: Same as above Plan: The patient was seen and examined at the wound center today and was updated on the plan of care. A subcutaneous debridement was performed today. The patient tolerated the procedure well. The patients wound care will consist of: 2x2 cm Purapply AM #2 was applied after subcutaneous debridement to the left lower extremity ulcer, it was then covered with the wound veil and a thin layer of hydrogel, and secured with Steri-Strips, 100% of the product was used/layered with 0% waste. Aquacel extra over top. Patient tolerated the procedure well. For the right heel ulceration, due to the maceration hold on advanced skin substitute and will utilize silver cell cover with OPTi foam dressing for offloading.patient is unable to tolerate any sort of offloading shoe at this time or cam walker. Single-layer Tubigrip's for compression. OPTi foam ordered for offloading as patient unable to make offloading heel protector with ABD pad. Wound cultures were collected prior and reviewed above, patient has completed his course of Bactrim. Baseline bloodwork And Vascular studies Held at this time as recent reports were reviewed. Patient educated on the importance of diet on wound healing and instructed to increase protein and vitamin C intake. Patient verbalized understanding.Given the delayed wound healing in fact the wounds have been present greater than 4 weeks we will apply for an skin substitute. Patient will follow up at wound healing center in one week or sooner if needed. Due to the patient's debility and difficulty caring for himself and having his dressings changed, do believe that patient would benefit from home health care. Discussed following up with primary care to have home health care ordered As nurse practitioners are unable to order this in [place].This note was generated with [employer] software. It may contain incorrect words, spelling, and punctuation that were not noted in checking the note before signing. This note was generated with [employer] software. It may contain incorrect words, spelling, and punctuation that were not noted in checking the note before signing. [id number]: [id number] Luz subq tissue 20 sq cm/< 150xxx-152xx: [id number] Skin sub graft trnk/arm/leg
== END 2019-11-15 23:59 ==
LOC: WC 13:00
PROVIDERS: PCP Family Medicine; Referring Provider Podiatrist Foot & Ankle Surgery; Visit Provider Nurse Practitioner
DX: L97.922 Non-pressure chronic ulcer of unspecified part of left lower leg with fat layer exposed (principal); L97.512 Non-pressure chronic ulcer of other part of right foot with fat layer exposed; L97.412 Non-pressure chronic ulcer of right heel and midfoot with fat layer exposed; G62.9 Polyneuropathy, unspecified; M79.671 Pain in right foot; K62.3 Rectal prolapse; I25.10 Atherosclerotic heart disease of native coronary artery without angina pectoris; R53.81 Other malaise; E78.5 Hyperlipidemia, unspecified; I10 Essential (primary) hypertension; I77.9 Disorder of arteries and arterioles, unspecified; I45.10 Unspecified right bundle-branch block; Z95.5 Presence of coronary angioplasty implant and graft; I25.2 Old myocardial infarction; I73.9 Peripheral vascular disease, unspecified; G89.29 Other chronic pain; R29.6 Repeated falls; Z88.3 Allergy status to other anti-infective agents
CPT/HCPCS: 11042; 15271; 87070; 87075; 87077; 87186; 87205; 99213; Q4196; G0463

== ENCOUNTER 2019-12-12 14:15 | Outpatient (RCR) | payer MEDICARE, OTHER, SELFPAY ==
[2019-11-16 00:39] VITALS: BP 103/61; PULSE 62; RESP 18; TEMP 36.1
[2019-11-21 13:40] VITALS: BP 144/77; PULSE 65; RESP 18; TEMP 36.6; BMI 21.2
--- NOTE | 2019-11-21 21:57 | PN.PCM_ITS ---
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 Status: Acute Current Visit: Yes Code(s): L97.922 - Non-pressure chronic ulcer of unspecified part of left lower leg with fat layer exposed (2) Non-healing ulcer of right foot with fat layer exposed Status: Acute Current Visit: Yes Code(s): L97.512 - Non-pressure chronic ulcer of other part of right foot with fat layer exposed Comment: heel (3) Neuropathy Status: Acute Current Visit: Yes Code(s): G62.9 - Polyneuropathy, unspecified (4) Rectal prolapse Status: Acute Current Visit: No Code(s): K62.3 - Rectal prolapse (5) Atherosclerotic heart disease of [place] coronary artery without angina pectoris Status: Chronic Current Visit: No Qualifiers: Code(s): I25.10 - Atherosclerotic heart disease of [place] coronary artery without angina pectoris (6) Chronic pain of right heel Status: Chronic Current Visit: Yes Code(s): M79.671 - Pain in right foot; G89.29 - Other chronic pain (7) Debility Status: Chronic Current Visit: No Code(s): R53.81 - Other malaise (8) Essential (primary) hypertension Status: Chronic Current Visit: No Code(s): I10 - Essential (primary) hypertension (9) Peripheral arterial occlusive disease Status: Chronic Current Visit: No Code(s): I77.9 - Disorder of arteries and arterioles, unspecified Comment: SFA PTCA/Stent 08/2012; Stent to distal RSFA to popliteal, Stent-Prox RSFA 10/23/13 Type of Wound Date of Service: 11/22/19 Chief Complaint: Chronic right heel ulceration, left lower leg ulcer History of Wound: Joaquin is an 83-year-old male who presents to the clinic today with complaints of a left lower extremity ulcer, as well as a chronic ulceration of the right heel, Both of which have been present for the last 2 months. He has a past medical history significant for CAD, PVD, peripheral neuropathy (Currently following up with neurology), and arthritis. He has a history of angioplasty and stent placement in his right superficial femoral artery and right popliteal artery. He continues to see Dr. Rose for vascular management And his most recent ABIs and 02/2019 showed a right RALPH of 1.07 and a left RALPH of 0.67. He also had vascular studies done in September 2019 from his primary care which showed valvular competence.The patient's states that they have been utilizing an gilu-[id number] salve on the patient's wounds without much improvement. They note clear to yellow Moderate drainage at times. He denies any purulent drainage, increasing pain, redness, swelling, foul odor, or other signs of infection. Patient also reports painful ulcerations of his right heel, which have been present Intermittently for the past 2 years. He was previously seen at the wound center for management of these ulcers. In the past, his cultures were positive for Maria M, and he was treated with antifungal topical treatment. He also had previously improved with use of orthotics, but reports that he is unable to tolerate these at this time. He was previously on gabapentin, for management of his chronic peripheral neuropathy. However his primary care provider has since discontinued his gabapentin Given the patient's multiple falls. He rates his pain 8 out of 10 and reports pain is intermittent and occurs with pressure/weightbearing. He is ambulatory with a cane. He also states that since his recent rectal prolapse that he has been almost entirely homebound and more debilitated and having more difficulty caring for himself. He denies any other acute concerns. Progress of Wound: 11/07/2019?patient's cultures were reviewed and showed Staphylococcus aureus he was placed on Bactrim and is tolerating well. His heel wound has not shown much improvement, his left lower extremity ulcers have showed slight improvement. First application of purapply a.m. today. 11/14/2019?no new concerns, there is some maceration of the heel and therefore will hold on pure apply application to the heel, second purapply application to the left lower extremity. Wound sizes are stable. 11/22/2019?new concerns, first application of nushield to the left lower extremity, patient did get approved for home health - Physical Exam Vital Signs Temp Pulse Resp BP 97.8 F 65 18 144/77 H 11/21/19 13:40 11/21/19 13:40 11/21/19 13:40 11/21/19 13:40 General: Alert, Oriented x3, Cooperative, No apparent distress HEENT: Atraumatic Oral: Moist Mucosa Lungs: Clear to auscultation Cardiovascular: Regular rate Extremities: No clubbing, No cyanosis, Diminished Peripheral Pulses, Edema - Generalized bilateral lower extremity edema Skin: Ulcer/ Wound - See nursing documentation, ulcerations present to right heel and left lower extremity with adherent slough obvious infection at this time, due to increased pain in the right heel cultures were collected today Wound Measurements and Assessment WC - Nurse 1 - General Ulcer Measurement Start: 11/21/19 13:39 Freq: Status: Active Protocol: Activity Type Activity Date Activity User E-Sign Co-Sign Detail Recorded Client Recorded Date Recorded By Document 11/21/19 13:40 RB [id number] 11/21/19 13:49 RB 11/21/19 13:40 Wound Center Nurse 1 [Ulcer Assessment] 13-right heel ulcer -Combined with other wound No -Current Size (cm) - Length 1.2 -Current Size (cm) - Width 2.4 -Current Size (cm) - Depth 0.2 -Total Square Cm 2.88 -Tunneling No -Undermining/Tunneling No -Circular Undermining No -Exudate Amt Medium -Exudate Type Serosanguineous -Wound Margin Distinct, Outline Attached -Granulation Amt Medium (34-66%) -Granulation Quality [place] -Slough/Fibrin Yes -Necrosis Amt Small (1-33%) -Necrotic Tissue Type Adherent Slough -Structure Exposed Fat Layer Exposed -Texture (Michelle-wound Skin Appearance) Callus -Moisture (Michelle-wound Skin Appearance Maceration ) -Color (Michelle-wound Skin Appearance) Assessed -Temperature (Michelle-wound Skin No Abnormality Appearance) (Pt Warm) -Tenderness on Palpation (Michelle-wound No Skin Appearance) -Ulcer Cleansing Wound Cleanser -Foul Odor after Cleansing No -Anesthetic Used 4% Lidocaine Solution 12-left mid moser -Combined with other wound No -Current Size (cm) - Length 1 -Current Size (cm) - Width 0.5 -Current Size (cm) - Depth 0.1 -Total Square Cm 0.5 -Tunneling No -Undermining/Tunneling No -Exudate Amt Small -Exudate Type Serosanguineous -Wound Margin Flat & Intact -Granulation Amt Medium (34-66%) -Granulation Quality [place] -Slough/Fibrin Yes -Necrosis Amt Small (1-33%) -Necrotic Tissue Type Adherent Slough -Structure Exposed N/A -Texture (Michelle-wound Skin Appearance) Assessed -Moisture (Michelle-wound Skin Appearance No Abnormality ) -Color (Michelle-wound Skin Appearance) Assessed -Temperature (Michelle-wound Skin No Abnormality Appearance) (Pt Warm) -Tenderness on Palpation (Michelle-wound No Skin Appearance) -Ulcer Cleansing Wound Cleanser -Foul Odor after Cleansing No -Anesthetic Used 4% Lidocaine Solution #11 left superior moser -Combined with other wound No -Current Size (cm) - Length 1.5 -Current Size (cm) - Width 1.7 -Current Size (cm) - Depth 0.1 -Total Square Cm 2.55 -Tunneling No -Undermining/Tunneling No -Circular Undermining No -Exudate Amt Small -Exudate Type Serosanguineous -Wound Margin Flat & Intact -Granulation Amt Medium (34-66%) -Granulation Quality [place] -Slough/Fibrin Yes -Necrosis Amt Small (1-33%) -Necrotic Tissue Type Adherent Slough -Structure Exposed N/A -Texture (Michelle-wound Skin Appearance) Assessed -Moisture (Michelle-wound Skin Appearance Assessed ) -Color (Michelle-wound Skin Appearance) Assessed -Temperature (Michelle-wound Skin No Abnormality Appearance) (Pt Warm) -Tenderness on Palpation (Michelle-wound No Skin Appearance) -Ulcer Cleansing Wound Cleanser -Foul Odor after Cleansing No -Anesthetic Used 4% Lidocaine Solution [Edema Assessment] -Lower Limb Edema Present Yes -Right Calf (cm) 36.6 -Right Ankle (cm) 19.1 -Left Calf (cm) 27 -Left Ankle (cm) 19.6 WC - Nurse 2 - General Ulcer CM Notes Start: 11/21/19 13:39 Freq: Status: Active Protocol: Activity Type Activity Date Activity User E-Sign Co-Sign Detail Recorded Client Recorded Date Recorded By Document 11/21/19 14:03 MW [id number] 11/21/19 14:22 MW 11/21/19 14:03 Wound Center Nurse 2 [Procedure/Treatment] 13-right heel ulcer -Time 14:03 -Correct Patient Yes -Correct Side, Site, Position Yes -Correct Procedure Yes -Procedure Performed Yes -Type of Procedure Debridement -Clinical Debridement Subcutaneous -Post Debridement Size (cm) - Length 1.5 -Post Debridement Size (cm) - Width 2.5 -Post Debridement Size (cm) - Depth 0.2 -Total Square (cm) 3.75 -Wound/Ulcer Outcome Not Healed -Ulcer Cleansing Rinsed/ Irrigated with Saline -Foul Odor after Cleansing No -Bioengineered Tissue No -Bleeding Controlled with Pressure -Offloading No -Treatment Response Procedure Tolerated Well 12-left mid moser -Time 14:04 -Correct Patient Yes -Correct Side, Site, Position Yes -Correct Procedure Yes -Procedure Performed Yes -Type of Procedure Debridement -Clinical Debridement Subcutaneous -Post Debridement Size (cm) - Length 1.7 -Post Debridement Size (cm) - Width 1.0 -Post Debridement Size (cm) - Depth 0.1 -Total Square (cm) 1.70 -Wound/Ulcer Outcome Not Healed -Ulcer Cleansing Rinsed/ Irrigated with Saline -Foul Odor after Cleansing No -Bioengineered Tissue Yes -Type of bioengineered Tissue NU-SHIELD -Expiration Date 12/24/23 -Product Lot Number [id number] -Percent Used 100 -Saline Lot Number [id number] -Bleeding Controlled with Pressure -Offloading No -Treatment Response Procedure Tolerated Well #11 left superior moser -Time 14:04 -Correct Patient Yes -Correct Side, Site, Position Yes -Correct Procedure Yes -Procedure Performed Yes -Type of Procedure Debridement -Clinical Debridement Subcutaneous -Post Debridement Size (cm) - Length 2.0 -Post Debridement Size (cm) - Width 1.8 -Post Debridement Size (cm) - Depth 0.1 -Total Square (cm) 3.60 -Wound/Ulcer Outcome Not Healed -Ulcer Cleansing Rinsed/ Irrigated with Saline -Foul Odor after Cleansing No -Bioengineered Tissue Yes -Type of bioengineered Tissue NU-SHIELD -Expiration Date 12/24/23 -Product Lot Number [id number] -Percent Used 100 -Saline Lot Number [id number] -Bleeding Controlled with Pressure -Other NUSHIELD 2X4 (8 UNITS) -Offloading No -Treatment Response Procedure Tolerated Well [See Physician Procedure note for Specifics] Pain Scale: 0-10 Numeric [Pain] -Is Patient Pain Free? Yes Neurological: Neuro grossly intact Psych/Mental Status: Normal Affect, Appropriate, Alert and oriented to time, place, person, mood and affect Debridement Note Post-Debridement Measurements/Treatment WC - Nurse 2 - General Ulcer CM Notes Start: 11/21/19 13:39 Freq: Status: Active Protocol: Activity Type Activity Date Activity User E-Sign Co-Sign Detail Recorded Client Recorded Date Recorded By Document 11/21/19 14:03 MW [id number] 11/21/19 14:22 MW 11/21/19 14:03 Wound Center Nurse 2 13-right heel ulcer -Time 14:03 -Correct Patient Yes -Correct Side, Site, Position Yes -Correct Procedure Yes -Procedure Performed Yes -Type of Procedure Debridement -Clinical Debridement Subcutaneous -Post Debridement Size (cm) - Length 1.5 -Post Debridement Size (cm) - Width 2.5 -Post Debridement Size (cm) - Depth 0.2 -Total Square (cm) 3.75 -Wound/Ulcer Outcome Not Healed -Ulcer Cleansing Rinsed/ Irrigated with Saline -Foul Odor after Cleansing No -Bioengineered Tissue No -Bleeding Controlled with Pressure -Offloading No -Treatment Response Procedure Tolerated Well 12-left mid moser -Time 14:04 -Correct Patient Yes -Correct Side, Site, Position Yes -Correct Procedure Yes -Procedure Performed Yes -Type of Procedure Debridement -Clinical Debridement Subcutaneous -Post Debridement Size (cm) - Length 1.7 -Post Debridement Size (cm) - Width 1.0 -Post Debridement Size (cm) - Depth 0.1 -Total Square (cm) 1.70 -Wound/Ulcer Outcome Not Healed -Ulcer Cleansing Rinsed/ Irrigated with Saline -Foul Odor after Cleansing No -Bioengineered Tissue Yes -Type of bioengineered Tissue NU-SHIELD -Expiration Date 12/24/23 -Product Lot Number [id number] -Percent Used 100 -Saline Lot Number [id number] -Bleeding Controlled with Pressure -Offloading No -Treatment Response Procedure Tolerated Well #11 left superior moser -Time 14:04 -Correct Patient Yes -Correct Side, Site, Position Yes -Correct Procedure Yes -Procedure Performed Yes -Type of Procedure Debridement -Clinical Debridement Subcutaneous -Post Debridement Size (cm) - Length 2.0 -Post Debridement Size (cm) - Width 1.8 -Post Debridement Size (cm) - Depth 0.1 -Total Square (cm) 3.60 -Wound/Ulcer Outcome Not Healed -Ulcer Cleansing Rinsed/ Irrigated with Saline -Foul Odor after Cleansing No -Bioengineered Tissue Yes -Type of bioengineered Tissue NU-SHIELD -Expiration Date 12/24/23 -Product Lot Number [id number] -Percent Used 100 -Saline Lot Number [id number] -Bleeding Controlled with Pressure -Other NUSHIELD 2X4 (8 UNITS) -Offloading No -Treatment Response Procedure Tolerated Well Pain Scale: 0-10 Numeric Is Patient Pain Free? Yes Wound debrided: Right heel and left lower extremity ulcerations Type of Debridement: Excisional debridement Anesthesia Used: 5% Lidocaine Gel Depth: in the subcutaneous layer Percentage of wound debrided: 100 Instrument Used: 5mm curette, 7mm curette Tissue Removed: Slough and devitalized tissue Severity: Fat Layer Exposed Amount of bleeding with debridement: Mild Bleeding Controlled with: Pressure Patient tolerated procedure well Assessment/Plan Active Problems (Last Reviewed 11/21/19 @ 10:52 by Holly Calzada) Neuropathy (Acute) Chronic pain of right heel (Chronic) Non-healing ulcer of right foot with fat layer exposed (Acute) heel Nonhealing ulcer of left lower extremity with fat layer exposed (Acute) Assessment: Same as above Plan: The patient was seen and examined at the wound center today and was updated on the plan of care. A subcutaneous debridement was performed today. The patient tolerated the procedure well. The patients wound care will consist of: 2x4 cmnushield #1 was applied after subcutaneous debridement to the left lower extremity ulcers, it was then covered with the wound veil and a thin layer of hydrogel, and secured with Steri-Strips, 100% of the product was used/layered with 0% waste. Aquacel extra over top. Patient tolerated the procedure well. For the right heel ulceration, due to the maceration hold on advanced skin substitute and will utilize silver cell cover with OPTifoam dressing for offloading.patient is unable to tolerate any sort of offloading shoe at this time or cam walker. Single-layer Tubigrip's for compression. OPTi foam ordered for offloading as patient unable to make offloading heel protector with ABD pad. Wound cultures were collected prior and reviewed above, patient has completed his course of Bactrim.Wound cultures repeated today due to increased pain. Baseline bloodwork And Vascular studies Held at this time as recent reports were reviewed. Patient educated on the importance of diet on wound healing and instructed to increase protein and vitamin C intake. Patient verbalized understanding.Given the delayed wound healing in fact the wounds have been present greater than 4 weeks we will apply for an skin substitute. Patient will follow up at wound healing center in one week or sooner if needed. Due to the patient's debility and difficulty caring for himself and having his dressings changed, do believe that patient would benefit from home health care. Discussed following up with primary care to have home health care ordered As nurse practitioners are unable to order this in [place].This note was generated with [employer] software. It may contain incorrect words, spelling, and punctuation that were not noted in checking the note before signing. This note was generated with [employer] software. It may contain incorrect words, spelling, and punctuation that were not noted in checking the note before signing. [id number]: 12413 Luz subq tissue 20 sq cm/< 150xxx-152xx: [id number] Skin sub graft trnk/arm/leg
[2019-11-28 14:03] VITALS: BP 129/60; PULSE 62; RESP 18; TEMP 36.3; BMI 21.2
--- NOTE | 2019-11-28 21:08 | PN.PCM_ITS ---
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 Status: Acute Code(s): L97.922 - Non-pressure chronic ulcer of unspecified part of left lower leg with fat layer exposed (2) Non-healing ulcer of right foot with fat layer exposed Status: Acute Code(s): L97.512 - Non-pressure chronic ulcer of other part of right foot with fat layer exposed Comment: heel (3) Neuropathy Status: Acute Code(s): G62.9 - Polyneuropathy, unspecified (4) Rectal prolapse Status: Acute Code(s): K62.3 - Rectal prolapse (5) Atherosclerotic heart disease of [place] coronary artery without angina pectoris Status: Chronic Qualifiers: Code(s): I25.10 - Atherosclerotic heart disease of [place] coronary artery without angina pectoris (6) Chronic pain of right heel Status: Chronic Code(s): M79.671 - Pain in right foot; G89.29 - Other chronic pain (7) Debility Status: Chronic Code(s): R53.81 - Other malaise (8) Essential (primary) hypertension Status: Chronic Code(s): I10 - Essential (primary) hypertension (9) Peripheral arterial occlusive disease Status: Chronic Code(s): I77.9 - Disorder of arteries and arterioles, unspecified Comment: SFA PTCA/Stent 08/2012; Stent to distal RSFA to popliteal, Stent-Prox RSFA 10/23/13 Type of Wound Date of Service: 11/28/19 Chief Complaint: Chronic right heel ulceration, left lower leg ulcer History of Wound: Joaquin is an 83-year-old male who presents to the clinic today with complaints of a left lower extremity ulcer, as well as a chronic ulceration of the right heel, Both of which have been present for the last 2 months. He has a past medical history significant for CAD, PVD, peripheral neuropathy (Currently following up with neurology), and arthritis. He has a history of angioplasty and stent placement in his right superficial femoral artery and right popliteal artery. He continues to see Dr. Rose for vascular management And his most recent ABIs and 02/2019 showed a right RALPH of 1.07 and a left RALPH of 0.67. He also had vascular studies done in September 2019 from his primary care which showed valvular competence.The patient's states that they have been utilizing an [id number] salve on the patient's wounds without much improvement. They note clear to yellow Moderate drainage at times. He denies any purulent drainage, increasing pain, redness, swelling, foul odor, or other signs of infection. Patient also reports painful ulcerations of his right heel, which have been present Intermittently for the past 2 years. He was previously seen at the wound center for management of these ulcers. In the past, his cultures were positive for Maria M, and he was treated with antifungal topical treatment. He also had previously improved with use of orthotics, but reports that he is unable to tolerate these at this time. He was previously on gabapentin, for management of his chronic peripheral neuropathy. However his primary care provider has since discontinued his gabapentin Given the patient's multiple falls. He rates his pain 8 out of 10 and reports pain is intermittent and occurs with pressure/weightbearing. He is ambulatory with a cane. He also states that since his recent rectal prolapse that he has been almost entirely homebound and more debilitated and having more difficulty caring for himself. He denies any other acute concerns. Progress of Wound: 11/07/2019?patient's cultures were reviewed and showed Stap hylococcus aureus he was placed on Bactrim and is tolerating well. His heel wound has not shown much improvement, his left lower extremity ulcers have showed slight improvement. First application of purapply a.m. today. 11/14/2019?no new concerns, there is some maceration of the heel and therefore will hold on pure apply application to the heel, second purapply application to the left lower extremity. Wound sizes are stable. 11/22/2019?new concerns, first application of nushield to the left lower extremity, patient did get approved for home health. 11/28/19-no new concerns, patient's wound cultures were reviewed and showed staph and anaerobic cocci and therefore patient was placed on Augmentin. - Physical Exam Vital Signs Temp Pulse Resp BP 97.4 F L 62 18 129/60 H 11/28/19 14:03 11/28/19 14:03 11/28/19 14:03 11/28/19 14:03 General: Alert, Oriented x3, Cooperative, No apparent distress HEENT: Atraumatic Oral: Moist Mucosa Lungs: Clear to auscultation, Normal air movement Cardiovascular: Regular rate Extremities: No clubbing, No cyanosis, Diminished Peripheral Pulses, Edema - generalized BLLE edema Skin: Ulcer/ Wound - see nursing documentation, slough and devitalized tissue Neurological: Neuro grossly intact Psych/Mental Status: Normal Affect, Appropriate, Alert and oriented to time, place, person, mood and affect Debridement Note Post-Debridement Measurements/Treatment WC - Nurse 2 - General Ulcer CM Notes Start: 11/21/19 13:39 Freq: Status: Active Protocol: Activity Type Activity Date Activity User E-Sign Co-Sign Detail Recorded Client Recorded Date Recorded By Document 11/21/19 14:03 MW [id number] 11/21/19 14:22 MW Document 11/28/19 14:34 MW [id number] 11/28/19 14:51 MW 11/21/19 11/28/19 14:03 14:34 Wound Center Nurse 2 13-right heel ulcer -Time 14:03 14:35 -Correct Patient Yes Yes -Correct Side, Site, Position Yes Yes -Correct Procedure Yes Yes -Procedure Performed Yes Yes -Type of Procedure Debridement Debridement -Clinical Debridement Subcutaneous Subcutaneous -Post Debridement Size (cm) - Length 1.5 1.1 -Post Debridement Size (cm) - Width 2.5 2.0 -Post Debridement Size (cm) - Depth 0.2 0.2 -Total Square (cm) 3.75 2.20 -Wound/Ulcer Outcome Not Healed Not Healed -Ulcer Cleansing Rinsed/ Rinsed/ Irrigated with Irrigated with Saline Saline -Foul Odor after Cleansing No No -Bioengineered Tissue No No -Bleeding Controlled with Pressure Pressure -Offloading No No -Treatment Response Procedure Procedure Tolerated Well Tolerated Well 12-left mid moser -Time 14:04 14:39 -Correct Patient Yes Yes -Correct Side, Site, Position Yes Yes -Correct Procedure Yes Yes -Procedure Performed Yes Yes -Type of Procedure Debridement Debridement -Clinical Debridement Subcutaneous Subcutaneous -Post Debridement Size (cm) - Length 1.7 0.9 -Post Debridement Size (cm) - Width 1.0 0.6 -Post Debridement Size (cm) - Depth 0.1 0.2 -Total Square (cm) 1.70 0.54 -Wound/Ulcer Outcome Not Healed Not Healed -Ulcer Cleansing Rinsed/ Rinsed/ Irrigated with Irrigated with Saline Saline -Foul Odor after Cleansing No No -Bioengineered Tissue Yes Yes -Type of bioengineered Tissue NU-SHIELD NU-SHIELD -Expiration Date 12/24/23 12/12/23 -Product Lot Number [id number] -Percent Used 100 100 -Saline Lot Number [id number] -Bleeding Controlled with Pressure Pressure -Offloading No No -Treatment Response Procedure Procedure Tolerated Well Tolerated Well #11 left superior moser -Time 14:04 14:39 -Correct Patient Yes Yes -Correct Side, Site, Position Yes Yes -Correct Procedure Yes Yes -Procedure Performed Yes Yes -Type of Procedure Debridement Debridement -Clinical Debridement Subcutaneous Subcutaneous -Post Debridement Size (cm) - Length 2.0 1.2 -Post Debridement Size (cm) - Width 1.8 1.4 -Post Debridement Size (cm) - Depth 0.1 0.1 -Total Square (cm) 3.60 1.68 -Wound/Ulcer Outcome Not Healed Not Healed -Ulcer Cleansing Rinsed/ Rinsed/ Irrigated with Irrigated with Saline Saline -Foul Odor after Cleansing No No -Bioengineered Tissue Yes Yes -Type of bioengineered Tissue NU-SHIELD NU-SHIELD -Expiration Date 12/24/23 12/12/23 -Product Lot Number [id number] -Percent Used 100 100 -Saline Lot Number [id number] -Bleeding Controlled with Pressure Pressure -Other NUSHIELD 2X4 (8 UNITS) -Offloading No No -Treatment Response Procedure Procedure Tolerated Well Tolerated Well Pain Scale: 0-10 Numeric Is Patient Pain Free? Yes Yes Wound debrided: right heel ulcer and left lower extremity ulcers Type of Debridement: Excisional debridement Anesthesia Used: 5% Lidocaine Gel Depth: in the subcutaneous layer Percentage of wound debrided: 100 Instrument Used: 3mm curette, 5mm curette Tissue Removed: slough and devitalized tissue Severity: Fat Layer Exposed Amount of bleeding with debridement: Mild Bleeding Controlled with: Pressure Patient tolerated procedure well Assessment/Plan Assessment: Same as above Plan: The patient was seen and examined at the wound center today and was updated on the plan of care. A subcutaneous debridement was performed today. The patient tolerated the procedure well. The patients wound care will consist of: nushield #2 was applied after subcutaneous debridement to the left lower extremity ulcers, it was then covered with the wound veil and a thin layer of hydrogel, and secured with Steri-Strips, 100% of the product was used/layered with 0% waste. Aquacel extra over top. Patient tolerated the procedure well. For the right heel ulceration, due to the maceration hold on advanced skin substitute and will utilize silver cell cover with OPTifoam dressing for off loading.patient is unable to tolerate any sort of offloading shoe at this time or cam walker. double-layer Tubigrip's for compression. OPTi foam ordered for offloading as patient unable to make offloading heel protector with ABD pad. Wound cultures were collected prior and reviewed above, patient has completed his course of Bactrim.Wound cultures repeated today due to increased pain. Baseline bloodwork And Vascular studies Held at this time as recent reports were reviewed. Patient educated on the importance of diet on wound healing and instructed to increase protein and vitamin C intake. Patient verbalized understanding.Given the delayed wound healing in fact the wounds have been present greater than 4 weeks we will apply for an skin substitute. Patient will follow up at wound healing center in one week or sooner if needed. Due to the patient's debility and difficulty caring for himself and having his dressings changed, do believe that patient would benefit from home health care. Discussed following up with primary care to have home health care ordered As nurse practitioners are unable to order this in [place].This note was generated with [employer] dictation software. It may contain incorrect words, spelling, and punctuation that were not noted in checking the note before signing. This note was generated with [employer] dictation software. It may contain incorrect words, spelling, and punctuation that were not noted in checking the note before signing. [id number]: [id number] Luz subq tissue 20 sq cm/< 150xxx-152xx: [id number] Skin sub graft trnk/arm/leg
[2019-12-05 14:38] VITALS: BP 117/62; PULSE 61; RESP 18; TEMP 36.6; BMI 21.2
--- NOTE | 2019-12-06 16:55 | PN.PCM_ITS ---
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 Status: Acute Current Visit: Yes Code(s): L97.922 - Non-pressure chronic ulcer of unspecified part of left lower leg with fat layer exposed (2) Non-healing ulcer of right foot with fat layer exposed Status: Acute Current Visit: Yes Code(s): L97.512 - Non-pressure chronic ulcer of other part of right foot with fat layer exposed Comment: heel (3) Neuropathy Status: Acute Current Visit: Yes Code(s): G62.9 - Polyneuropathy, unspecified (4) Rectal prolapse Status: Acute Current Visit: No Code(s): K62.3 - Rectal prolapse (5) Atherosclerotic heart disease of [place] coronary artery without angina pectoris Status: Chronic Current Visit: No Qualifiers: Code(s): I25.10 - Atherosclerotic heart disease of [place] coronary artery without angina pectoris (6) Chronic pain of right heel Status: Chronic Current Visit: No Code(s): M79.671 - Pain in right foot; G89.29 - Other chronic pain (7) Debility Status: Chronic Current Visit: No Code(s): R53.81 - Other malaise (8) Essential (primary) hypertension Status: Chronic Current Visit: No Code(s): I10 - Essential (primary) hypertension (9) Peripheral arterial occlusive disease Status: Chronic Current Visit: No Code(s): I77.9 - Disorder of arteries and arterioles, unspecified Comment: SFA PTCA/Stent 08/2012; Stent to distal RSFA to popliteal, Stent-Prox RSFA 10/23/13 Type of Wound Date of Service: 12/05/19 Chief Complaint: Chronic right heel ulceration, left lower leg ulcer History of Wound: Joaquin is an 83-year-old male who presents to the clinic today with complaints of a left lower extremity ulcer, as well as a chronic ulceration of the right heel, Both of which have been present for the last 2 months. He has a past medical history significant for CAD, PVD, peripheral neuropathy (Currently following up with neurology), and arthritis. He has a history of angioplasty and stent placement in his right superficial femoral artery and right popliteal artery. He continues to see Dr. Rose for vascular management And his most recent ABIs and 02/2019 showed a right RALPH of 1.07 and a left RALPH of 0.67. He also had vascular studies done in September 2019 from his primary care which showed valvular competence.The patient's states that they have been utilizing an [id number] salve on the patient's wounds without much improvement. They note clear to yellow Moderate drainage at times. He denies any purulent drainage, increasing pain, redness, swelling, foul odor, or other signs of infection. Patient also reports painful ulcerations of his right heel, which have been present Intermittently for the past 2 years. He was previously seen at the wound center for management of these ulcers. In the past, his cultures were positive for Maria M, and he was treated with antifungal topical treatment. He also had previously improved with use of orthotics, but reports that he is unable to tolerate these at this time. He was previously on gabapentin, for management of his chronic peripheral neuropathy. However his primary care provider has since discontinued his gabapentin Given the patient's multiple falls. He rates his pain 8 out of 10 and reports pain is intermittent and occurs with pressure/weightbearing. He is ambulatory with a cane. He also states that since his recent rectal prolapse that he has been almost entirely homebound and more debilitated and having more difficulty caring for himself. He denies any other acute concerns. Progress of Wound: 11/07/2019?patient's cultures were reviewed and showed Staphylococcus aureus he was placed on Bactrim and is tolerating well. His heel wound has not shown much improvement, his left lower extremity ulcers have showed slight improvement. First application of purapply a.m. today. 11/14/2019?no new concerns, there is some maceration of the heel and therefore will hold on pure apply application to the heel, second purapply application to the left lower extremity. Wound sizes are stable. 11/22/2019?new concerns, first application of nushield to the left lower extremity, patient did get approved for home health. 11/28/19-no new concerns, patient's wound cultures were reviewed and showed staph and anaerobic cocci and therefore patient was placed on Augmentin. 12/05/2019?no new concerns, patient tolerating the antibiotics well, still having difficulty with offloading the heel wound, home health assisting with dressing changes twice a week - Physical Exam Vital Signs Temp Pulse Resp BP 97.8 F 61 18 117/62 12/05/19 14:38 12/05/19 14:38 12/05/19 14:38 12/05/19 14:38 General: Alert, Oriented x3, Cooperative, No apparent distress HEENT: Atraumatic Oral: Moist Mucosa Cardiovascular: Regular rate, Regular Rhythm Abdomen: Soft, Non Tender Extremities: No clubbing, No cyanosis, Diminished Peripheral Pulses - Dorsal pedis pulse not able to be palpated on the left, Edema - Generalized bilateral lower extremity edema Skin: Ulcer/ Wound - See nursing documentation, slough and devitalized tissue present, no signs of obvious infection at this time Wound Measurements and Assessment WC - Nurse 1 - General Ulcer Measurement Start: 11/21/19 13:39 Freq: Status: Active Protocol: Activity Type Activity Date Activity User E-Sign Co-Sign Detail Recorded Client Recorded Date Recorded By Document 12/05/19 14:38 DL [id number] 12/05/19 14:53 DL 12/05/19 14:38 Wound Center Nurse 1 [Ulcer Assessment] 13-right heel ulcer -Current Size (cm) - Length 1.1 -Current Size (cm) - Width 2 -Current Size (cm) - Depth 0.2 -Total Square Cm 2.2 -Photo Taken No -Exudate Amt Small -Wound Margin Distinct, Outline Attached -Granulation Amt Medium (34-66%) -Granulation Quality Red -Necrosis Amt Medium (34-66%) -Necrotic Tissue Type Adherent Slough -Structure Exposed N/A -Texture (Michelle-wound Skin Appearance) Scarring -Moisture (Michelle-wound Skin Appearance Dry/Scaly ) -Color (Michelle-wound Skin Appearance) Erythema,Rubor -Temperature (Michelle-wound Skin No Abnormality Appearance) (Pt Warm) -Tenderness on Palpation (Michelle-wound No Skin Appearance) -Ulcer Cleansing Wound Cleanser -Foul Odor after Cleansing No -Anesthetic Used 4% Lidocaine Solution 12-left mid moser -Current Size (cm) - Length 0.7 -Current Size (cm) - Width 0.4 -Current Size (cm) - Depth 0.1 -Total Square Cm 0.28 -Photo Taken No -Exudate Amt None Present -Wound Margin Thickened -Granulation Amt None Present (0 %) -Necrosis Amt Large (67-100%) -Necrotic Tissue Type Adherent Slough -Structure Exposed N/A -Texture (Michelle-wound Skin Appearance) Scarring -Moisture (Michelle-wound Skin Appearance No Abnormality ) -Color (Michelle-wound Skin Appearance) No Abnormality -Temperature (Michelle-wound Skin No Abnormality Appearance) (Pt Warm) -Tenderness on Palpation (Michelle-wound No Skin Appearance) -Ulcer Cleansing Wound Cleanser -Foul Odor after Cleansing No -Anesthetic Used 4% Lidocaine Solution #11 left superior moser -Current Size (cm) - Length 1.1 -Current Size (cm) - Width 1.1 -Current Size (cm) - Depth 0.1 -Total Square Cm 1.21 -Photo Taken No -Exudate Amt None Present -Wound Margin Thickened -Granulation Amt None Present (0 %) -Necrosis Amt Large (67-100%) -Necrotic Tissue Type Adherent Slough -Structure Exposed N/A -Texture (Michelle-wound Skin Appearance) Scarring -Moisture (Michelle-wound Skin Appearance No Abnormality ) -Color (Michelle-wound Skin Appearance) No Abnormality -Temperature (Michelle-wound Skin No Abnormality Appearance) (Pt Warm) -Tenderness on Palpation (Michelle-wound No Skin Appearance) -Ulcer Cleansing Wound Cleanser -Foul Odor after Cleansing No -Anesthetic Used 4% Lidocaine Solution [Edema Assessment] -Right Calf (cm) 29.8 -Right Ankle (cm) 19.6 -Left Calf (cm) 25 -Left Ankle (cm) 19.2 WC - Nurse 2 - General Ulcer CM Notes Start: 12/03/19 20:11 Freq: Status: Active Protocol: Activity Type Activity Date Activity User E-Sign Co-Sign Detail Recorded Client Recorded Date Recorded By Document 12/05/19 15:20 MW [id number] 12/05/19 15:31 MW 12/05/19 15:20 Wound Center Nurse 2 [Procedure/Treatment] 13-right heel ulcer -Time 15:20 -Correct Patient Yes -Correct Side, Site, Position Yes -Correct Procedure Yes -Procedure Performed Yes -Type of Procedure Debridement -Clinical Debridement Subcutaneous -Tissue Removed Subcutaneous -Post Debridement (cm) - Length 1.4 -Post Debridement (cm) - Width 2.1 -Post Debridement (cm) - Depth 0.2 -Total Square (Post) (cm) 2.94 -Area of Debridement (cm) - Length 1.4 -Area of Debridement (cm) - Width 2.1 -Total Square (Area) (cm) 2.94 -Tunneling No -Undermining/Tunneling No -Circular Undermining No -Wound/Ulcer Outcome Not Healed -Ulcer Cleansing Rinsed/ Irrigated with Saline -Foul Odor after Cleansing No -Bioengineered Tissue No -Bleeding Controlled with Pressure -Offloading No -Debridement - Subq, 1st 20sq cm Yes 12-left mid moser -Time 15:21 -Correct Patient Yes -Correct Side, Site, Position Yes -Correct Procedure Yes -Procedure Performed Yes -Type of Procedure Debridement -Clinical Debridement Subcutaneous -Tissue Removed Subcutaneous -Post Debridement (cm) - Length 0.7 -Post Debridement (cm) - Width 0.7 -Post Debridement (cm) - Depth 0.1 -Total Square (Post) (cm) 0.49 -Area of Debridement (cm) - Length 0.7 -Area of Debridement (cm) - Width 0.7 -Total Square (Area) (cm) 0.49 -Tunneling No -Undermining/Tunneling No -Circular Undermining No -Wound/Ulcer Outcome Not Healed -Ulcer Cleansing Rinsed/ Irrigated with Saline -Foul Odor after Cleansing No -Bioengineered Tissue Yes -Type of Bioengineered Tissue NuShield -Expiration Date 12/12/23 -Product Lot Number [id number] -Percent Used 100 -Bleeding Controlled with Pressure -Offloading No -Treatment Response Procedure Tolerated Well -Debridement - Subq, 1st 20sq cm No -Apply Skin Sub - 1st 25 sq cm - Legs 1 -NuShield (per sq cm) 6 #11 left superior moser -Time 15:23 -Correct Patient Yes -Correct Side, Site, Position Yes -Correct Procedure Yes -Procedure Performed Yes -Type of Procedure Debridement -Clinical Debridement Subcutaneous -Tissue Removed Subcutaneous -Post Debridement (cm) - Length 1.3 -Post Debridement (cm) - Width 1.2 -Post Debridement (cm) - Depth 0.1 -Total Square (Post) (cm) 1.56 -Area of Debridement (cm) - Length 1.3 -Area of Debridement (cm) - Width 1.2 -Total Square (Area) (cm) 1.56 -Tunneling No -Undermining/Tunneling No -Circular Undermining No -Wound/Ulcer Outcome Not Healed -Ulcer Cleansing Rinsed/ Irrigated with Saline -Foul Odor after Cleansing No -Bioengineered Tissue No -Bleeding Controlled with Pressure -Offloading No -Treatment Response Procedure Tolerated Well -Debridement - Subq, 1st 20sq cm No [See Physician Procedure note for Specifics] Pain Scale: 0-10 Numeric [Pain] -Is Patient Pain Free? Yes - Nurse 3 - General Ulcer D/C NN Start: 12/03/19 20:11 Freq: Status: Active Protocol: Activity Type Activity Date Activity User E-Sign Co-Sign Detail Recorded Client Recorded Date Recorded By Document 12/05/19 15:46 BMF [id number] 12/05/19 15:48 BMF 12/05/19 15:46 Wound Care Nurse 3 [Wound Dressing] 13-right heel ulcer -Primary Dressing Applied Other -Other Dressing nushield per tiff littlejohn -Primary Dressing Covered/Secured Dry Gauze & with Roll Gauze, Secured with Tape,Other -Other Covering heel hat 12-left mid moser -Primary Dressing Applied Other -Other Dressing nushield per tiff littlejohn -Primary Dressing Covered/Secured Dry Gauze & with Roll Gauze, Secured with Tape #11 left superior moser -Primary Dressing Applied Other -Other Dressing nushield per tiff littlejohn -Primary Dressing Covered/Secured Dry Gauze & with Roll Gauze, Secured with Tape [Compression Applied] Right -Tubular Bandage Double Layer -Size of Tubigrip Used Size D -Size D ($) 1 Left -Tubular Bandage Double Layer -Size of Tubigrip Used Size D -Size D ($) 1 [Post Procedure Tolerated] -Treatment Response Procedure Tolerated Well Pain Scale: 0-10 Numeric [Pain] -Is Patient Pain Free? Yes - Visit Discharge [Visit Discharge Information] -Discharge Condition Stable -Ambulatory Status Ambulatory,Cane -Transportation Private Auto -Accompanied by [Facility Notification] -Facility Type Home Health Musculoskeletal: Arthritic Changes Neurological: Neuro grossly intact Psych/Mental Status: Normal Affect, Appropriate Debridement Note Post-Debridement Measurements/Treatment - Nurse 2 - General Ulcer CM Notes Start: 12/03/19 20:11 Freq: Status: Active Protocol: Activity Type Activity Date Activity User E-Sign Co-Sign Detail Recorded Client Recorded Date Recorded By Document 12/05/19 15:20 MW [id number] 12/05/19 15:31 MW 12/05/19 15:20 Wound Center Nurse 2 13-right heel ulcer -Time 15:20 -Correct Patient Yes -Correct Side, Site, Position Yes -Correct Procedure Yes -Procedure Performed Yes -Type of Procedure Debridement -Clinical Debridement Subcutaneous -Tissue Removed Subcutaneous -Post Debridement (cm) - Length 1.4 -Post Debridement (cm) - Width 2.1 -Post Debridement (cm) - Depth 0.2 -Total Square (Post) (cm) 2.94 -Area of Debridement (cm) - Length 1.4 -Area of Debridement (cm) - Width 2.1 -Total Square (Area) (cm) 2.94 -Tunneling No -Undermining/Tunneling No -Circular Undermining No -Wound/Ulcer Outcome Not Healed -Ulcer Cleansing Rinsed/ Irrigated with Saline -Foul Odor after Cleansing No -Bioengineered Tissue No -Bleeding Controlled with Pressure -Offloading No -Debridement - Subq, 1st 20sq cm Yes 12-left mid moser -Time 15:21 -Correct Patient Yes -Correct Side, Site, Position Yes -Correct Procedure Yes -Procedure Performed Yes -Type of Procedure Debridement -Clinical Debridement Subcutaneous -Tissue Removed Subcutaneous -Post Debridement (cm) - Length 0.7 -Post Debridement (cm) - Width 0.7 -Post Debridement (cm) - Depth 0.1 -Total Square (Post) (cm) 0.49 -Area of Debridement (cm) - Length 0.7 -Area of Debridement (cm) - Width 0.7 -Total Square (Area) (cm) 0.49 -Tunneling No -Undermining/Tunneling No -Circular Undermining No -Wound/Ulcer Outcome Not Healed -Ulcer Cleansing Rinsed/ Irrigated with Saline -Foul Odor after Cleansing No -Bioengineered Tissue Yes -Type of Bioengineered Tissue NuShield -Expiration Date 12/12/23 -Product Lot Number [id number] -Percent Used 100 -Bleeding Controlled with Pressure -Offloading No -Treatment Response Procedure Tolerated Well -Debridement - Subq, 1st 20sq cm No -Apply Skin Sub - 1st 25 sq cm - Legs 1 -NuShield (per sq cm) 6 #11 left superior moser -Time 15:23 -Correct Patient Yes -Correct Side, Site, Position Yes -Correct Procedure Yes -Procedure Performed Yes -Type of Procedure Debridement -Clinical Debridement Subcutaneous -Tissue Removed Subcutaneous -Post Debridement (cm) - Length 1.3 -Post Debridement (cm) - Width 1.2 -Post Debridement (cm) - Depth 0.1 -Total Square (Post) (cm) 1.56 -Area of Debridement (cm) - Length 1.3 -Area of Debridement (cm) - Width 1.2 -Total Square (Area) (cm) 1.56 -Tunneling No -Undermining/Tunneling No -Circular Undermining No -Wound/Ulcer Outcome Not Healed -Ulcer Cleansing Rinsed/ Irrigated with Saline -Foul Odor after Cleansing No -Bioengineered Tissue No -Bleeding Controlled with Pressure -Offloading No -Treatment Response Procedure Tolerated Well -Debridement - Subq, 1st 20sq cm No Pain Scale: 0-10 Numeric Is Patient Pain Free? Yes - Nurse 3 - General Ulcer D/C NN Start: 12/03/19 20:11 Freq: Status: Active Protocol: Activity Type Activity Date Activity User E-Sign Co-Sign Detail Recorded Client Recorded Date Recorded By Document 12/05/19 15:46 [facility] [id number] 12/05/19 15:48 [facility] 12/05/19 15:46 Wound Care Nurse 3 13-right heel ulcer -Primary Dressing Applied Other -Other Dressing nushield per tiff littlejohn -Primary Dressing Covered/Secured with Dry Gauze & Roll Gauze, Secured with Tape,Other -Other Covering heel hat 12-left mid moser -Primary Dressing Applied Other -Other Dressing nushield per tiff littlejohn -Primary Dressing Covered/Secured with Dry Gauze & Roll Gauze, Secured with Tape #11 left superior moser -Primary Dressing Applied Other -Other Dressing nushield per tiff littlejohn -Primary Dressing Covered/Secured with Dry Gauze & Roll Gauze, Secured with Tape Right -Tubular Bandage Double Layer -Size of Tubigrip Used Size D -Size D ($) 1 Left -Tubular Bandage Double Layer -Size of Tubigrip Used Size D -Size D ($) 1 Treatment Response Procedure Tolerated Well Pain Scale: 0-10 Numeric Is Patient Pain Free? Yes - Visit Discharge Discharge Condition Stable Ambulatory Status Ambulatory,Cane Transportation Private Auto Accompanied by Facility Type Home Health Wound debrided: Left lower extremity ulcers and right heel ulcer Type of Debridement: Excisional debridement Anesthesia Used: 5% Lidocaine Gel Depth: in the subcutaneous layer Percentage of wound debrided: 100 Instrument Used: 3mm curette, 5mm curette Tissue Removed: Slough and devitalized tissue Severity: Fat Layer Exposed Amount of bleeding with debridement: Mild Bleeding Controlled with: Pressure Patient tolerated procedure well Assessment/Plan Active Problems (Last Reviewed 11/21/19 @ 10:52 by Holly Calzada) Neuropathy (Acute) Non-healing ulcer of right foot with fat layer exposed (Acute) heel Nonhealing ulcer of left lower extremity with fat layer exposed (Acute) Assessment: Same as above Plan: The patient was seen and examined at the wound center today and was updated on the plan of care. A subcutaneous debridement was performed today. The patient tolerated the procedure well. The patients wound care will consist of: nushield #2 was applied after subcutaneous debridement to the left lower extremity ulcers, it was then covered with the wound veil and a thin layer of hydrogel, and secured with Steri-Strips, 100% of the product was used/layered with 0% waste. Aquacel extra over top. Patient tolerated the procedure well. For the right heel ulceration, due to the maceration hold on advanced skin substitute and will utilize silver cell cover with OPTifoam dressing for offloading.patient is unable to tolerate any sort of offloading shoe at this time or cam walker. double-layer Tubigrip's for compression. OPTi foam ordered for offloading as patient unable to make offloading heel protector with ABD pad. Wound cultures were collected prior and reviewed above, patient has Been tolerating the Augmentin well. Baseline bloodwork And Vascular studies Held at this time as recent reports were reviewed. Patient educated on the importance of diet on wound healing and instructed to increase protein and vitamin C intake. Patient verbalized understanding.Did discuss following up with podiatry discussed better offloading options.Patient also has an appointment scheduled with his vascular surgeon to discuss his PAD.Given the delayed wound healing in fact the wounds have been present greater than 4 weeks we will apply for an skin substitute. Patient will follow up at wound healing center in one week or sooner if needed. Due to the patient's debility and difficulty caring for himself and having his dressings changed, do believe that patient would benefit from home health care. Discussed following up with primary care to have home health care ordered As nurse practitioners are unable to order this in [place].This note was generated with [employer]azien[employer] software. It may contain incorrect words, spelling, and punctuation that were not noted in checking the note before signing. This note was generated with [employer] software. It may contain incorrect words, spelling, and punctuation that were not noted in checking the note before signing. [id number]: [id number] Luz subq tissue 20 sq cm/< 150xxx-152xx: [id number] Skin sub graft trnk/arm/leg
[2019-12-12 14:54] VITALS: BP 123/60; PULSE 62; RESP 18; TEMP 36.5; BMI 21.2
--- NOTE | 2019-12-12 15:17 | WC ---
pt states he fell and hit head and left upper . pt denies losing consciousness .
--- NOTE | 2019-12-15 15:16 | PN.PCM_ITS ---
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 Status: Acute Code(s): L97.922 - Non-pressure chronic ulcer of unspecified part of left lower leg with fat layer exposed (2) Non-healing ulcer of right foot with fat layer exposed Status: Acute Code(s): L97.512 - Non-pressure chronic ulcer of other part of right foot with fat layer exposed Comment: heel (3) Neuropathy Status: Acute Code(s): G62.9 - Polyneuropathy, unspecified (4) Rectal prolapse Status: Acute Code(s): K62.3 - Rectal prolapse (5) Atherosclerotic heart disease of [place] coronary artery without angina pectoris Status: Chronic Qualifiers: Code(s): I25.10 - Atherosclerotic heart disease of [place] coronary artery without angina pectoris (6) Chronic pain of right heel Status: Chronic Code(s): M79.671 - Pain in right foot; G89.29 - Other chronic pain (7) Debility Status: Chronic Code(s): R53.81 - Other malaise (8) Essential (primary) hypertension Status: Chronic Code(s): I10 - Essential (primary) hypertension (9) Peripheral arterial occlusive disease Status: Chronic Code(s): I77.9 - Disorder of arteries and arterioles, unspecified Comment: SFA PTCA/Stent 08/2012; Stent to distal RSFA to popliteal, Stent-Prox RSFA 10/23/13 (10) Fall Status: Acute Code(s): W19.XXXA - Unspecified fall, initial encounter (11) Skin tear of left upper arm without complication Status: Acute Code(s): S41.112A - Laceration without foreign body of left upper arm, initial encounter (12) Wound of right lower extremity Status: Acute Code(s): S81.801A - Unspecified open wound, right lower leg, initial encounter (13) Debility Status: Acute Code(s): R53.81 - Other malaise Type of Wound Date of Service: 12/12/19 Chief Complaint: Chronic right heel ulceration, left lower leg ulcer History of Wound: Joaquin is an 83-year-old male who presents to the clinic today with complaints of a left lower extremity ulcer, as well as a chronic ulceration of the right heel, Both of which have been present for the last 2 months. He has a past medical history significant for CAD, PVD, peripheral neuropathy (Currently following up with neurology), and arthritis. He has a history of angioplasty and stent placement in his right superficial femoral artery and right popliteal artery. He continues to see Dr. Rose for vascular management And his most recent ABIs and 02/2019 showed a right RALPH of 1.07 and a left RALPH of 0.67. He also had vascular studies done in September 2019 from his primary care which showed valvular competence.The patient's states that they have been utilizing an fgto-mft-hmdlvae salve on the patient's wounds without much improvement. They note clear to yellow Moderate drainage at times. He denies any purulent drainage, increasing pain, redness, swelling, foul odor, or other signs of infection. Patient also reports painful ulcerations of his right heel, which have been present Intermittently for the past 2 years. He was previously seen at the wound center for management of these ulcers. In the past, his cultures were positive for Maria M, and he was treated with antifungal topical treatment. He also had previously improved with use of orthotics, but reports that he is unable to tolerate these at this time. He was previously on gabapentin, for management of his chronic peripheral neuropathy. However his primary care provider has since discontinued his gabapentin Given the patient's multiple falls. He rates his pain 8 out of 10 and reports pain is intermittent and occurs with pressure/weightbearing. He is ambulatory with a cane. He also states that since his recent rectal prolapse that he has been almost entirely homebound and more debilitated and having more difficulty caring for himself. He denies any other acute concerns. Progress of Wound: 11/07/2019?patient's cultures were reviewed and showed Staphylococcus aureus he was placed on Bactrim and is tolerating well. His heel wound has not shown much improvement, his left lower extremity ulcers have showed slight improvement. First application of purapply a.m. today. 11/14/2019?no new concerns, there is some maceration of the heel and therefore will hold on pure apply application to the heel, second purapply application to the left lower extremity. Wound sizes are stable. 11/22/2019?new concerns, first application of nushield to the left lower extremity, patient did get approved for home health. 11/28/19-no new concerns, patient's wound cultures were reviewed and showed staph and anaerobic cocci and therefore patient was placed on Augmentin. 12/05/2019?no new concerns, patient tolerating the antibiotics well, still having difficulty with offloading the heel wound, home health assisting with dressing changes twice a week. 12/12/2019?patient still noncompliant with offloading, he is getting home health twice per week, he had a mechanical fall this past week and suffered a skin tear on his left upper arm and also a small new wound to his right lower extremity. Patient is resistant to discussing [facility] or assisted living. He does have a follow-up appointment with Dr. Rose next week. His heel wound is deteriorated due to maceration and failure to offload. He currently is wearing crocs shoes - Physical Exam Vital Signs Temp Pulse Resp BP 97.7 F L 62 18 123/60 H 12/12/19 14:54 12/12/19 14:54 12/12/19 14:54 12/12/19 14:54 General: Alert, Oriented x3, Cooperative, No apparent distress HEENT: Atraumatic Lungs: Clear to auscultation Cardiovascular: Regular rate Abdomen: Soft, Non Tender Extremities: No clubbing, No cyanosis, Diminished Peripheral Pulses, Edema - Generalized bilateral lower extremity edema Skin: Ulcer/ Wound - See nursing documentation, new skin tear to left upper arm and new wound to right lower extremity with adherent slough, heel is macerated and deteriorated this week, large amount of devitalized tissue present Wound Measurements and Assessment WC - Nurse 1 - General Ulcer Measurement Start: 11/21/19 13:39 Freq: Status: Active Protocol: Activity Type Activity Date Activity User E-Sign Co-Sign Detail Recorded Client Recorded Date Recorded By Document 12/12/19 14:54 RB [id number] 12/12/19 15:21 RB 12/12/19 14:54 Wound Center Nurse 1 [Ulcer Assessment] 15, L upper arm cluster -Combined with other wound No -Current Size (cm) - Length 0.4 -Current Size (cm) - Width 1.6 -Current Size (cm) - Depth 0.1 -Total Square Cm 0.64 -Tunneling No -Undermining/Tunneling No -Circular Undermining No -Exudate Amt Small -Exudate Type Serosanguineous -Wound Margin Flat & Intact -Granulation Amt Medium (34-66%) -Granulation Quality [place] -Slough/Fibrin Yes -Necrosis Amt Small (1-33%) -Necrotic Tissue Type Adherent Slough -Structure Exposed N/A -Texture (Michelle-wound Skin Appearance) Assessed -Moisture (Michelle-wound Skin Appearance Assessed,Dry/ ) Scaly -Color (Michelle-wound Skin Appearance) Assessed -Temperature (Michelle-wound Skin No Abnormality Appearance) (Pt Warm) -Tenderness on Palpation (Michelle-wound No Skin Appearance) -Ulcer Cleansing Wound Cleanser -Foul Odor after Cleansing No -Anesthetic Used 4% Lidocaine Solution 14. R moser -Combined with other wound No -Current Size (cm) - Length 0.9 -Current Size (cm) - Width 0.7 -Current Size (cm) - Depth 0.1 -Total Square Cm 0.63 -Tunneling No -Undermining/Tunneling No -Circular Undermining No -Exudate Amt Small -Exudate Type Serosanguineous -Wound Margin Flat & Intact -Granulation Amt Medium (34-66%) -Granulation Quality [place] -Slough/Fibrin Yes -Necrosis Amt Small (1-33%) -Necrotic Tissue Type Adherent Slough -Structure Exposed N/A -Texture (Michelle-wound Skin Appearance) Assessed -Moisture (Michelle-wound Skin Appearance Assessed,Dry/ ) Scaly -Color (Michelle-wound Skin Appearance) Assessed -Temperature (Michelle-wound Skin No Abnormality Appearance) (Pt Warm) -Tenderness on Palpation (Michelle-wound No Skin Appearance) -Ulcer Cleansing Wound Cleanser -Foul Odor after Cleansing No -Anesthetic Used 4% Lidocaine Solution 13-right heel ulcer -Combined with other wound No -Current Size (cm) - Length 2.5 -Current Size (cm) - Width 2.6 -Current Size (cm) - Depth 0.2 -Total Square Cm 6.50 -Tunneling No -Undermining/Tunneling No -Circular Undermining No -Exudate Amt Small -Exudate Type Serous -Wound Margin Flat & Intact -Granulation Amt Medium (34-66%) -Granulation Quality [place] -Slough/Fibrin Yes -Necrosis Amt Medium (34-66%) -Necrotic Tissue Type Adherent Slough -Structure Exposed N/A -Texture (Michelle-wound Skin Appearance) Assessed -Moisture (Michelle-wound Skin Appearance Assessed,Dry/ ) Scaly -Color (Michelle-wound Skin Appearance) Assessed -Temperature (Michelle-wound Skin No Abnormality Appearance) (Pt Warm) -Tenderness on Palpation (Michelle-wound No Skin Appearance) -Ulcer Cleansing Wound Cleanser -Foul Odor after Cleansing No -Anesthetic Used 4% Lidocaine Solution 12-left mid moser -Combined with other wound No -Current Size (cm) - Length 0.5 -Current Size (cm) - Width 0.4 -Current Size (cm) - Depth 0.1 -Total Square Cm 0.20 -Tunneling No -Undermining/Tunneling No -Circular Undermining No -Exudate Amt Small -Exudate Type Serosanguineous -Wound Margin Flat & Intact -Granulation Amt Medium (34-66%) -Granulation Quality [place] -Slough/Fibrin Yes -Necrosis Amt Small (1-33%) -Necrotic Tissue Type Adherent Slough -Structure Exposed N/A -Texture (Michelle-wound Skin Appearance) Assessed -Moisture (Michelle-wound Skin Appearance Assessed,Dry/ ) Scaly -Color (Michelle-wound Skin Appearance) Assessed -Temperature (Michelle-wound Skin No Abnormality Appearance) (Pt Warm) -Tenderness on Palpation (Michelle-wound No Skin Appearance) -Ulcer Cleansing Wound Cleanser -Foul Odor after Cleansing No -Anesthetic Used 4% Lidocaine Solution #11 left superior moser -Combined with other wound No -Current Size (cm) - Length 1 -Current Size (cm) - Width 1 -Current Size (cm) - Depth 0.1 -Total Square Cm 1 -Tunneling No -Undermining/Tunneling No -Circular Undermining No -Exudate Amt Small -Exudate Type Serosanguineous -Wound Margin Flat & Intact -Granulation Amt Medium (34-66%) -Granulation Quality [place] -Slough/Fibrin Yes -Necrosis Amt Medium (34-66%) -Necrotic Tissue Type Adherent Slough -Structure Exposed N/A -Texture (Michelle-wound Skin Appearance) Assessed -Moisture (Michelle-wound Skin Appearance Dry/Scaly ) -Color (Michelle-wound Skin Appearance) Assessed -Temperature (Michelle-wound Skin No Abnormality Appearance) (Pt Warm) -Tenderness on Palpation (Michelle-wound No Skin Appearance) -Ulcer Cleansing Wound Cleanser -Foul Odor after Cleansing No -Anesthetic Used 4% Lidocaine Solution [Edema Assessment] -Lower Limb Edema Present Yes -Right Calf (cm) 32 -Right Ankle (cm) 19.5 -Left Calf (cm) 28.5 -Left Ankle (cm) 20.5 12/12/19 15:17 Wound Center by Ching García pt states he fell and hit head and left upper . pt denies losing consciousness . Initialized on 12/12/19 15:17 - END OF NOTE WC - Nurse 2 - General Ulcer CM Notes Start: 12/03/19 20:11 Freq: Status: Active Protocol: Activity Type Activity Date Activity User E-Sign Co-Sign Detail Recorded Client Recorded Date Recorded By Document 12/12/19 15:33 MW [id number] 12/12/19 15:52 MW 12/12/19 15:33 Wound Center Nurse 2 [Procedure/Treatment] 15, L upper arm cluster -Time 15:35 -Correct Patient Yes -Correct Side, Site, Position Yes -Correct Procedure Yes -Procedure Performed Yes -Type of Procedure Debridement -Clinical Debridement Subcutaneous -Tissue Removed Subcutaneous -Post Debridement (cm) - Length 0.4 -Post Debridement (cm) - Width 1.6 -Post Debridement (cm) - Depth 0.1 -Total Square (Post) (cm) 0.64 -Area of Debridement (cm) - Length 0.4 -Area of Debridement (cm) - Width 1.6 -Total Square (Area) (cm) 0.64 -Tunneling No -Undermining/Tunneling No -Circular Undermining No -Wound/Ulcer Outcome Not Healed -Ulcer Cleansing Rinsed/ Irrigated with Saline -Foul Odor after Cleansing No -Bioengineered Tissue No -Bleeding Controlled with Pressure -Offloading No -Treatment Response Procedure Tolerated Well -Debridement - Subq, 1st 20sq cm Yes 14. R moser -Time 15:37 -Correct Patient Yes -Correct Side, Site, Position Yes -Correct Procedure Yes -Procedure Performed Yes -Type of Procedure Debridement -Clinical Debridement Subcutaneous -Tissue Removed Subcutaneous -Post Debridement (cm) - Length 1.0 -Post Debridement (cm) - Width 1.0 -Post Debridement (cm) - Depth 0.1 -Total Square (Post) (cm) 1.00 -Area of Debridement (cm) - Length 1.0 -Area of Debridement (cm) - Width 1.0 -Total Square (Area) (cm) 1.00 -Tunneling No -Undermining/Tunneling No -Circular Undermining No -Wound/Ulcer Outcome Not Healed -Ulcer Cleansing Rinsed/ Irrigated with Saline -Foul Odor after Cleansing No -Bioengineered Tissue No -Bleeding Controlled with Pressure -Offloading No -Treatment Response Procedure Tolerated Well -Debridement - Subq, 1st 20sq cm No 13-right heel ulcer -Time 15:37 -Correct Patient Yes -Correct Side, Site, Position Yes -Correct Procedure Yes -Procedure Performed Yes -Type of Procedure Debridement -Clinical Debridement Subcutaneous -Tissue Removed Subcutaneous -Post Debridement (cm) - Length 3.1 -Post Debridement (cm) - Width 2.0 -Post Debridement (cm) - Depth 0.3 -Total Square (Post) (cm) 6.20 -Area of Debridement (cm) - Length 3.1 -Area of Debridement (cm) - Width 2.0 -Total Square (Area) (cm) 6.20 -Tunneling No -Undermining/Tunneling No -Circular Undermining No -Wound/Ulcer Outcome Not Healed -Ulcer Cleansing Rinsed/ Irrigated with Saline -Foul Odor after Cleansing No -Bioengineered Tissue No -Bleeding Controlled with Pressure -Offloading No -Treatment Response Procedure Tolerated Well -Debridement - Subq, 1st 20sq cm No 12-left mid moser -Time 15:37 -Correct Patient Yes -Correct Side, Site, Position Yes -Correct Procedure Yes -Procedure Performed Yes -Type of Procedure Debridement -Clinical Debridement Subcutaneous -Tissue Removed Subcutaneous -Post Debridement (cm) - Length 0.5 -Post Debridement (cm) - Width 0.4 -Post Debridement (cm) - Depth 0.1 -Total Square (Post) (cm) 0.20 -Area of Debridement (cm) - Length 0.5 -Area of Debridement (cm) - Width 0.4 -Total Square (Area) (cm) 0.20 -Tunneling No -Undermining/Tunneling No -Circular Undermining No -Wound/Ulcer Outcome Not Healed -Ulcer Cleansing Rinsed/ Irrigated with Saline -Foul Odor after Cleansing No -Bioengineered Tissue No -Bleeding Controlled with Pressure -Offloading No -Debridement - Subq, 1st 20sq cm No #11 left superior moser -Time 15:38 -Correct Patient Yes -Correct Side, Site, Position Yes -Correct Procedure Yes -Procedure Performed Yes -Type of Procedure Debridement -Clinical Debridement Subcutaneous -Tissue Removed Subcutaneous -Post Debridement (cm) - Length 1.2 -Post Debridement (cm) - Width 1.4 -Post Debridement (cm) - Depth 0.2 -Total Square (Post) (cm) 1.68 -Area of Debridement (cm) - Length 1.2 -Area of Debridement (cm) - Width 0.1 -Total Square (Area) (cm) 0.12 -Tunneling No -Undermining/Tunneling No -Circular Undermining No -Wound/Ulcer Outcome Not Healed -Ulcer Cleansing Rinsed/ Irrigated with Saline -Foul Odor after Cleansing No -Bioengineered Tissue Yes -Type of Bioengineered Tissue NuShield -Expiration Date 12/24/23 -Product Lot Number [id number] -Percent Used 100 -Saline Lot Number [id number] -Bleeding Controlled with Pressure -Offloading No -Treatment Response Procedure Not Tolerated Well -Debridement - Subq, 1st 20sq cm No -Apply Skin Sub - 1st 25 sq cm - Legs 1 -NuShield (per sq cm) 8 [See Physician Procedure note for Specifics] Pain Scale: 0-10 Numeric [Pain] -Is Patient Pain Free? Yes WC - Nurse 3 - General Ulcer D/C NN Start: 12/03/19 20:11 Freq: Status: Active Protocol: Activity Type Activity Date Activity User E-Sign Co-Sign Detail Recorded Client Recorded Date Recorded By Document 12/12/19 16:24 RB [id number] 12/12/19 16:28 RB 12/12/19 16:24 Wound Care Nurse 3 [Wound Dressing] 15, L upper arm cluster -Ulcer Cleansing Rinsed/ Irrigated with Saline -Primary Dressing Applied NonAdherent Contact Layer -Primary Dressing Covered/Secured Dry Gauze, with Secured with Tape 14. R moser -Primary Dressing Covered/Secured Dry Gauze & with Roll Gauze, Secured with Tape 13-right heel ulcer -Ulcer Cleansing Rinsed/ Irrigated with Saline -Primary Dressing Applied [place] -Other Dressing optifoam gentle boarder adhesive -[place]cel 1 12-left mid moser -Primary Dressing Covered/Secured Dry Gauze & with Roll Gauze, Secured with Tape #11 left superior moser -Primary Dressing Covered/Secured Dry Gauze & with Roll Gauze, Secured with Tape [Compression Applied] Right -Size of Tubigrip Used Size D -Size D ($) 1 Left -Size of Tubigrip Used Size D -Size D ($) 1 [Post Procedure Tolerated] -Treatment Response Procedure Tolerated Well Pain Scale: 0-10 Numeric [Pain] -Is Patient Pain Free? Yes Teaching: Wound Center [Wound Center Education] (Items with an * have Printed Materials Available- Please identify what is given to patient under the Teaching materials given to patient and caregiver Section. Offload: Mattress, Cushion, Reposition -Person Taught Patient -Teaching Method Discussion -Response to teaching Reinforcement needed WC - Visit Discharge [Visit Discharge Information] -Discharge Condition Stable -Ambulatory Status Ambulatory,Cane -Transportation Private Auto -Medication Reconcilliation completed No & provided to patient/care provider -Clinical Summary of Care Provided Yes Musculoskeletal: Arthritic Changes Neurological: Neuro grossly intact Psych/Mental Status: Normal Affect, Appropriate, Alert and oriented to time, place, person, mood and affect Debridement Note Post-Debridement Measurements/Treatment WC - Nurse 2 - General Ulcer CM Notes Start: 12/03/19 20:11 Freq: Status: Active Protocol: Activity Type Activity Date Activity User E-Sign Co-Sign Detail Recorded Client Recorded Date Recorded By Document 12/05/19 15:20 MW [id number] 12/05/19 15:31 MW Document 12/12/19 15:33 MW [id number] 12/12/19 15:52 MW 12/05/19 12/12/19 15:20 15:33 Wound Center Nurse 2 15, L upper arm cluster -Time 15:35 -Correct Patient Yes -Correct Side, Site, Position Yes -Correct Procedure Yes -Procedure Performed Yes -Type of Procedure Debridement -Clinical Debridement Subcutaneous -Tissue Removed Subcutaneous -Post Debridement (cm) - Length 0.4 -Post Debridement (cm) - Width 1.6 -Post Debridement (cm) - Depth 0.1 -Total Square (Post) (cm) 0.64 -Area of Debridement (cm) - Length 0.4 -Area of Debridement (cm) - Width 1.6 -Total Square (Area) (cm) 0.64 -Tunneling No -Undermining/Tunneling No -Circular Undermining No -Wound/Ulcer Outcome Not Healed -Ulcer Cleansing Rinsed/ Irrigated with Saline -Foul Odor after Cleansing No -Bioengineered Tissue No -Bleeding Controlled with Pressure -Offloading No -Treatment Response Procedure Tolerated Well -Debridement - Subq, 1st 20sq cm Yes 14. R moser -Time 15:37 -Correct Patient Yes -Correct Side, Site, Position Yes -Correct Procedure Yes -Procedure Performed Yes -Type of Procedure Debridement -Clinical Debridement Subcutaneous -Tissue Removed Subcutaneous -Post Debridement (cm) - Length 1.0 -Post Debridement (cm) - Width 1.0 -Post Debridement (cm) - Depth 0.1 -Total Square (Post) (cm) 1.00 -Area of Debridement (cm) - Length 1.0 -Area of Debridement (cm) - Width 1.0 -Total Square (Area) (cm) 1.00 -Tunneling No -Undermining/Tunneling No -Circular Undermining No -Wound/Ulcer Outcome Not Healed -Ulcer Cleansing Rinsed/ Irrigated with Saline -Foul Odor after Cleansing No -Bioengineered Tissue No -Bleeding Controlled with Pressure -Offloading No -Treatment Response Procedure Tolerated Well -Debridement - Subq, 20sq cm No 13-right heel ulcer -Time 15:20 15:37 -Correct Patient Yes Yes -Correct Side, Site, Position Yes Yes -Correct Procedure Yes Yes -Procedure Performed Yes Yes -Type of Procedure Debridement Debridement -Clinical Debridement Subcutaneous Subcutaneous -Tissue Removed Subcutaneous Subcutaneous -Post Debridement (cm) - Length 1.4 3.1 -Post Debridement (cm) - Width 2.1 2.0 -Post Debridement (cm) - Depth 0.2 0.3 -Total Square (Post) (cm) 2.94 6.20 -Area of Debridement (cm) - Length 1.4 3.1 -Area of Debridement (cm) - Width 2.1 2.0 -Total Square (Area) (cm) 2.94 6.20 -Tunneling No No -Undermining/Tunneling No No -Circular Undermining No No -Wound/Ulcer Outcome Not Healed Not Healed -Ulcer Cleansing Rinsed/ Rinsed/ Irrigated with Irrigated with Saline Saline -Foul Odor after Cleansing No No -Bioengineered Tissue No No -Bleeding Controlled with Pressure Pressure -Offloading No No -Treatment Response Procedure Tolerated Well -Debridement - Subq, 1st 20sq cm Yes No 12-left mid moser -Time 15:21 15:37 -Correct Patient Yes Yes -Correct Side, Site, Position Yes Yes -Correct Procedure Yes Yes -Procedure Performed Yes Yes -Type of Procedure Debridement Debridement -Clinical Debridement Subcutaneous Subcutaneous -Tissue Removed Subcutaneous Subcutaneous -Post Debridement (cm) - Length 0.7 0.5 -Post Debridement (cm) - Width 0.7 0.4 -Post Debridement (cm) - Depth 0.1 0.1 -Total Square (Post) (cm) 0.49 0.20 -Area of Debridement (cm) - Length 0.7 0.5 -Area of Debridement (cm) - Width 0.7 0.4 -Total Square (Area) (cm) 0.49 0.20 -Tunneling No No -Undermining/Tunneling No No -Circular Undermining No No -Wound/Ulcer Outcome Not Healed Not Healed -Ulcer Cleansing Rinsed/ Rinsed/ Irrigated with Irrigated with Saline Saline -Foul Odor after Cleansing No No -Bioengineered Tissue Yes No -Type of Bioengineered Tissue [facility] -Expiration Date 12/12/23 -Product Lot Number [id number] -Percent Used 100 -Bleeding Controlled with Pressure Pressure -Offloading No No -Treatment Response Procedure Tolerated Well -Debridement - Subq, 1st 20sq cm No No -Apply Skin Sub - 1st 25 sq cm - Legs 1 -NuShield (per sq cm) 6 #11 left superior moser -Time 15:23 15:38 -Correct Patient Yes Yes -Correct Side, Site, Position Yes Yes -Correct Procedure Yes Yes -Procedure Performed Yes Yes -Type of Procedure Debridement Debridement -Clinical Debridement Subcutaneous Subcutaneous -Tissue Removed Subcutaneous Subcutaneous -Post Debridement (cm) - Length 1.3 1.2 -Post Debridement (cm) - Width 1.2 1.4 -Post Debridement (cm) - Depth 0.1 0.2 -Total Square (Post) (cm) 1.56 1.68 -Area of Debridement (cm) - Length 1.3 1.2 -Area of Debridement (cm) - Width 1.2 0.1 -Total Square (Area) (cm) 1.56 0.12 -Tunneling No No -Undermining/Tunneling No No -Circular Undermining No No -Wound/Ulcer Outcome Not Healed Not Healed -Ulcer Cleansing Rinsed/ Rinsed/ Irrigated with Irrigated with Saline Saline -Foul Odor after Cleansing No No -Bioengineered Tissue No Yes -Type of Bioengineered Tissue [place] -Expiration Date 12/24/23 -Product Lot Number [id number] -Percent Used 100 -Saline Lot Number [id number] -Bleeding Controlled with Pressure Pressure -Offloading No No -Treatment Response Procedure Procedure Not Tolerated Well Tolerated Well -Debridement - Subq, 1st 20sq cm No No -Apply Skin Sub - 1st 25 sq cm - Legs 1 -NuShield (per sq cm) 8 Pain Scale: 0-10 Numeric Is Patient Pain Free? Yes Yes WC - Nurse 3 - General Ulcer D/C NN Start: 12/03/19 20:11 Freq: Status: Active Protocol: Activity Type Activity Date Activity User E-Sign Co-Sign Detail Recorded Client Recorded Date Recorded By Document 12/05/19 15:46 [facility] [id number] 12/05/19 15:48 [facility] Document 12/12/19 16:24 RB [id number] 12/12/19 16:28 RB 12/05/19 12/12/19 15:46 16:24 Wound Care Nurse 3 15, L upper arm cluster -Ulcer Cleansing Rinsed/ Irrigated with Saline -Primary Dressing Applied NonAdherent Contact Layer -Primary Dressing Covered/Secured with Dry Gauze, Secured with Tape 14. R moser -Primary Dressing Covered/Secured with Dry Gauze & Roll Gauze, Secured with Tape 13-right heel ulcer -Ulcer Cleansing Rinsed/ Irrigated with Saline -Primary Dressing Applied Other -Primary Dressing Applied [place]cel -Other Dressing nushield per optifoam gentle tiff littlejohn boarder adhesive -Primary Dressing Covered/Secured with Dry Gauze & Roll Gauze, Secured with Tape,Other -Other Covering heel hat -[place]cel 1 12-left mid moser -Primary Dressing Applied Other -Other Dressing nushield per tiff littlejohn -Primary Dressing Covered/Secured with Dry Gauze & Dry Gauze & Roll Gauze, Roll Gauze, Secured with Secured with Tape Tape #11 left superior moser -Primary Dressing Applied Other -Other Dressing nushield per tiff littlejohn -Primary Dressing Covered/Secured with Dry Gauze & Dry Gauze & Roll Gauze, Roll Gauze, Secured with Secured with Tape Tape Right -Tubular Bandage Double Layer -Size of Tubigrip Used Size D Size D -Size D ($) 1 1 Left -Tubular Bandage Double Layer -Size of Tubigrip Used Size D Size D -Size D ($) 1 1 Treatment Response Procedure Procedure Tolerated Well Tolerated Well Pain Scale: 0-10 Numeric Is Patient Pain Free? Yes Yes Teaching: Wound Center Offload: Mattress, Cushion, Reposition -Person Taught Patient -Teaching Method Discussion -Response to teaching Reinforcement needed WC - Visit Discharge Discharge Condition Stable Stable Ambulatory Status Ambulatory,Cane Ambulatory,Cane Transportation Private Auto Private Auto Accompanied by Medication Reconcilliation completed & No provided to patient/care provider Clinical Summary of Care Provided Yes Facility Type Home Health Wound debrided: Left upper arm skin tear Type of Debridement: Excisional debridement Anesthesia Used: 5% Lidocaine Gel Depth: in the subcutaneous layer Percentage of wound debrided: 100 Instrument Used: 5mm curette Tissue Removed: Slough and devitalized tissue Severity: Fat Layer Exposed Amount of bleeding with debridement: Mild Bleeding Controlled with: Pressure Patient tolerated procedure well - Additional Wound Wound debrided: Right heel ulcer and bilateral lower extremity ulcers Type of Debridement: Excisional debridement Anesthesia Used: 5% Lidocaine Gel Depth: in the subcutaneous layer Percentage of wound debrided: 100 Instrument Used: 5mm curette Tissue Removed: Slough and devitalized tissue Severity: Fat Layer Exposed Amount of bleeding with debridement: Mild Bleeding Controlled with: Pressure Patient tolerated procedure: Patient tolerated procedure well Assessment/Plan Assessment: Same as above Plan: The patient was seen and examined at the wound center today and was updated on the plan of care. A subcutaneous debridement was performed today. The patient tolerated the procedure well. The patients wound care will consist of: nushield #3 was applied after subcutaneous debridement to the left lower extremity ulcers, it was then covered with the wound veil and a thin layer of hydrogel, and secured with Steri-Strips, 100% of the product was used/layered with 0% waste. Aquacel extra over top. Patient tolerated the procedure well. For the right heel ulceration, due to the maceration hold on advanced skin substitute and will utilize silver cell cover with OPTifoam dressing for offloading.patient may also utilize moistened silver cell on the skin tear to his left upper arm and also the new wound to his right lower extremity. Patient is unable to tolerate any sort of offloading shoe at this time or cam walker. double-layer Tubigrip's for compression. OPTi foam ordered for offloading as patient unable to make offloading heel protector with ABD pad. Wound cultures were collected prior and reviewed above, patient has completed the Augmentin. Baseline bloodwork And Vascular studies Held at this time as recent reports were reviewed. Patient instructed to follow-up with Dr. Rose. Patient educated on the importance of diet on wound healing and instructed to increase protein and vitamin C intake. Patient verbalized understanding.Did discuss following up with podiatry discussed better offloading options.Patient also has an appointment scheduled with his vascular surgeon to discuss his PAD.Given the delayed wound healing in fact the wounds have been present greater than 4 weeks we will apply for an skin substitute. Patient will follow up at wound healing center in one week or sooner if needed. Due to the patient's debility and difficulty caring for himself and having his dressings changed, do believe that patient would benefit from home health care. Discussed following up with primary care to have home health care ordered As nurse practitioners are unable to order this in [place].This note was generated with [employer] dictation software. It may contain incorrect words, spelling, and punctuation that were not noted in checking the note before signing. This note was generated with [employer] dictation software. It may contain incorrect words, spelling, and punctuation that were not noted in checking the note before signing. 111xxx-113xx: 13512 Luz subq tissue 20 sq cm/< 150xxx-152xx: [id number] Skin sub graft trnk/arm/leg
== END 2019-12-16 23:59 ==
LOC: WC 14:15
PROVIDERS: PCP Family Medicine; Referring Provider Podiatrist Foot & Ankle Surgery; Visit Provider Nurse Practitioner
DX: I73.9 Peripheral vascular disease, unspecified (principal); L97.412 Non-pressure chronic ulcer of right heel and midfoot with fat layer exposed; L97.822 Non-pressure chronic ulcer of other part of left lower leg with fat layer exposed; I25.10 Atherosclerotic heart disease of native coronary artery without angina pectoris; M19.90 Unspecified osteoarthritis, unspecified site; G62.9 Polyneuropathy, unspecified; I77.9 Disorder of arteries and arterioles, unspecified; I10 Essential (primary) hypertension; R29.6 Repeated falls; S41.112A Laceration without foreign body of left upper arm, initial encounter; X58.XXXA Exposure to other specified factors, initial encounter
CPT/HCPCS: 11042; 15271; 87070; 87075; 87077; 87186; 87205; Q4160

== ENCOUNTER → 2020-01-08 12:51 | Outpatient (CLI) | payer MEDICARE, OTHER, SELFPAY ==
[2019-12-26 12:59] VITALS: BMI 21.2
[2020-01-01 15:44] VITALS: BMI 21.2
--- NOTE | 2020-01-08 12:57 | ADU_ITS ---
Reason For Study: ATHEROSCLEROSIS Right Velocities Left Velocities Ext. Iliac Artery, dist = 102 cm./sec. Ext Iliac Artery, dist = 101 cm./sec. Common Femoral Artery, mid = 111 cm./sec. Common Femoral Artery, mid = 42 cm./sec. Supf Femoral Artery, prox = 133 cm./sec. Supf. Femoral Artery, prox = 158 cm./sec. Supf Femoral Artery, mid = 80 cm./sec. Supf. Femoral Artery, mid = 453 cm./sec. Supf Femoral Artery, dist. = 350 cm./sec. Supf. Femoral Artery, dist = 79 cm./sec. Profunda Femoral Artery = 95 cm./sec. Profunda Femoral Artery = 246 cm./sec. Popliteal Artery, prox. = 76.6 cm./sec. Popliteal Artery, proximal, = 32 cm./sec. Popliteal Artery, mid = 94.8 cm./sec. Popliteal Artery, mid = 35 cm./sec. Popliteal Artery, dist = 92.2 cm./sec. Popliteal Artery, distal = 30 cm./sec. Post. Tibial Artery, prox = 74 cm./sec. Post. Tibial Artery, prox = 46 cm./sec. Post. Tibial Artery, mid = 20 cm./sec. Post Tibial Artery, dist. = 22 cm./sec. Post. Tibial Artery, dist = 24 cm./sec. Peroneal Artery, prox = 25 cm./sec. Peroneal Artery, prox = 183 cm./sec. Peroneal Artery,dist. = 27 cm./sec. Unable to obtain flow in from proximal to distal Ant.Tibial Artery, prox = 41 cm./sec. PeroA. Left mid calf veins were not assessed due to Ant. Tibial Artery, prox = 200 cm./sec. wounds/bandages. Ant. Tibial Artery, mid = 77 cm./sec. Left distal TWIN doppler was not detected. Ant. Tibial Artery, dist = 33 cm./sec. Procedure The exam was diagnostic. Exam performed in department. Interpretation Summary Bilateral severe femoral stenosis with monophasic flow distal to stenosis. Right peroneal and left distal anterior tibial appear occluded. Ordering Physician: Nate Rose Referring Physician: RADHA WILKINSON Performed By: Rosalee Mohamud, KAILA, RVT
--- NOTE | 2020-01-08 12:57 | ART_ITS ---
Reason For Study: ATHEROSCLEROSIS Procedure A bilateral lower extremity continuous wave Doppler with analog waveform analysis and ankle brachial indexes. Left Segmental Pressures Left brachial= 145mmHg. Left posterior tibial artery = 70mmHg. Left dorsalis pedis artery = 67mmHg. Left digit = 40 mmHg. Right Segmental Pressures Right brachial= 157mmHg. Right posterior tibial artery = 85mmHg. Right dorsalis pedis artery = 92mmHg. Right digit = 42 mmHg. Indices The right ankle brachial index by the dorsalis pedis is .59. The right ankle brachial index by the posterior tibial artery is .54. The right digital-brachial index is .27. The left ankle brachial index by the dorsalis pedis is .43. The left ankle brachial index by the posterior tibial artery is .45. The left digital-brachial index is .25. 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 Ordering Physician: Nate Rose Referring Physician: RADHA WILKINSON Performed By: LONNY BRYAN [facility]
== END ==
PROVIDERS: PCP Family Medicine; Referring Provider Surgery Vascular Surgery; Visit Provider Surgery Vascular Surgery
DX: I70.213 Atherosclerosis of native arteries of extremities with intermittent claudication, bilateral legs (principal)
CPT/HCPCS: 93922; 93925

== ENCOUNTER 2020-01-09 12:30 | Outpatient (RCR) | payer MEDICARE, OTHER, SELFPAY ==
[2019-12-17 00:40] VITALS: BP 123/60; PULSE 62; RESP 18; TEMP 36.5
[2019-12-19 15:44] VITALS: BP 145/76; PULSE 68; RESP 18; TEMP 36.1; BMI 21.2
--- NOTE | 2019-12-23 14:55 | PCM.WC.PN ---
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 Status: Acute Code(s): L97.922 - Non-pressure chronic ulcer of unspecified part of left lower leg with fat layer exposed (2) Non-healing ulcer of right foot with fat layer exposed Status: Acute Code(s): L97.512 - Non-pressure chronic ulcer of other part of right foot with fat layer exposed Comment: heel (3) Debility Status: Acute Code(s): R53.81 - Other malaise (4) Fall Status: Acute Code(s): W19.XXXA - Unspecified fall, initial encounter (5) Neuropathy Status: Acute Code(s): G62.9 - Polyneuropathy, unspecified (6) Rectal prolapse Status: Acute Code(s): K62.3 - Rectal prolapse (7) Skin tear of left upper arm without complication Status: Acute Code(s): S41.112A - Laceration without foreign body of left upper arm, initial encounter (8) Wound of right lower extremity Status: Acute Code(s): S81.801A - Unspecified open wound, right lower leg, initial encounter (9) Chronic pain of right heel Status: Chronic Code(s): M79.671 - Pain in right foot; G89.29 - Other chronic pain (10) Essential (primary) hypertension Status: Chronic Code(s): I10 - Essential (primary) hypertension (11) Peripheral arterial occlusive disease Status: Chronic Code(s): I77.9 - Disorder of arteries and arterioles, unspecified Comment: SFA PTCA/Stent 08/2012; Stent to distal RSFA to popliteal, Stent-Prox RSFA 10/23/13 Type of Wound Date of Service: 12/19/19 Chief Complaint: Chronic right heel ulceration, left lower leg ulcer History of Wound: Joaquin is an 83-year-old male who presents to the clinic today with complaints of a left lower extremity ulcer, as well as a chronic ulceration of the right heel, Both of which have been present for the last 2 months. He has a past medical history significant for CAD, PVD, peripheral neuropathy (Currently following up with neurology), and arthritis. He has a history of angioplasty and stent placement in his right superficial femoral artery and right popliteal artery. He continues to see Dr. Rose for vascular management And his most recent ABIs and 02/2019 showed a right RALPH of 1.07 and a left RALPH of 0.67. He also had vascular studies done in September 2019 from his primary care which showed valvular competence.The patient's states that they have been utilizing an [id number] salve on the patient's wounds without much improvement. They note clear to yellow Moderate drainage at times. He denies any purulent drainage, increasing pain, redness, swelling, foul odor, or other signs of infection. Patient also reports painful ulcerations of his right heel, which have been present Intermittently for the past 2 years. He was previously seen at the wound center for management of these ulcers. In the past, his cultures were positive for Maria M, and he was treated with antifungal topical treatment. He also had previously improved with use of orthotics, but reports that he is unable to tolerate these at this time. He was previously on gabapentin, for management of his chronic peripheral neuropathy. However his primary care provider has since discontinued his gabapentin Given the patient's multiple falls. He rates his pain 8 out of 10 and reports pain is intermittent and occurs with pressure/weightbearing. He is ambulatory with a cane. He also states that since his recent rectal prolapse that he has been almost entirely homebound and more debilitated and having more difficulty caring for himself. He denies any other acute concerns. Progress of Wound: 11/07/2019?patient's cultures were reviewed and showed Staphylococcus aureus he was placed on Bactrim and is tolerating well. His heel wound has not shown much improvement, his left lower extremity ulcers have showed slight improvement. First application of purapply a.m. today. 11/14/2019?no new concerns, there is some maceration of the heel and therefore will hold on pure apply application to the heel, second purapply application to the left lower extremity. Wound sizes are stable. 11/22/2019?new concerns, first application of nushield to the left lower extremity, patient did get approved for home health. 11/28/19-no new concerns, patient's wound cultures were reviewed and showed staph and anaerobic cocci and therefore patient was placed on Augmentin. 12/05/2019?no new concerns, patient tolerating the antibiotics well, still having difficulty with offloading the heel wound, home health assisting with dressing changes twice a week. 12/12/2019?patient still noncompliant with offloading, he is getting home health twice per week, he had a mechanical fall this past week and suffered a skin tear on his left upper arm and also a small new wound to his right lower extremity. Patient is resistant to discussing long term or assisted living. He does have a follow-up appointment with Dr. Rose next week. His heel wound is deteriorated due to maceration and failure to offload. He currently is wearing crocs shoes. 12/19/2019?patient's wounds remained stable, no significant improvement. Patient did follow-up with Dr. Rose who reordered vascular studies. Patient continues to be very unsteady and actually almost fell while ambulating to his room at the wound center. 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 He continues to refuse nursing or assisted living. He continues to have difficulty with wound care and dressing changes and only gets them done 3 times per week with home care and at the wound healing center. Denies any new acute concerns. He does have a consult with podiatry in 2 weeks. - Physical Exam Vital Signs Temp Pulse Resp BP 97 F L 68 18 145/76 H 12/19/19 15:44 12/19/19 15:44 12/19/19 15:44 12/19/19 15:44 General: Alert, Oriented x3, Cooperative, No apparent distress HEENT: Atraumatic Lungs: Clear to auscultation, Normal air movement Cardiovascular: Regular rate Abdomen: Soft, Non Tender Extremities: No clubbing, No cyanosis, Diminished Peripheral Pulses - barely palpable LLE, Edema - BLLE edema Skin: Ulcer/ Wound - See nursing documentation, slough and devitalized tissue and maceration Musculoskeletal: Arthritic Changes, Muscle Wasting Neurological: Neuro grossly intact, - - BLLE neuropathy Psych/Mental Status: Normal Affect, Appropriate, Alert and oriented to time, place, person, mood and affect Debridement Note Post-Debridement Measurements/Treatment WC - Nurse 2 - General Ulcer CM Notes Start: 12/19/19 15:44 Freq: Status: Active Protocol: Activity Type Activity Date Activity User E-Sign Co-Sign Detail Recorded Client Recorded Date Recorded By Document 12/19/19 16:09 MW [id number] 12/19/19 16:17 MW 12/19/19 16:09 Wound Center Nurse 2 15, L upper arm cluster -Time 16:10 -Correct Patient Yes -Correct Side, Site, Position Yes -Correct Procedure Yes -Procedure Performed No -Wound/Ulcer Outcome Healed- Epithelialized 14. R moser -Time 16:10 -Correct Patient Yes -Correct Side, Site, Position Yes -Correct Procedure Yes -Procedure Performed Yes -Type of Procedure Debridement -Clinical Debridement Subcutaneous -Tissue Removed Subcutaneous -Post Debridement (cm) - Length 1.0 -Post Debridement (cm) - Width 0.5 -Post Debridement (cm) - Depth 0.1 -Total Square (Post) (cm) 0.50 -Area of Debridement (cm) - Length 1.0 -Area of Debridement (cm) - Width 0.5 -Total Square (Area) (cm) 0.50 -Tunneling No -Undermining/Tunneling No -Circular Undermining No -Wound/Ulcer Outcome Not Healed -Ulcer Cleansing Rinsed/ Irrigated with Saline -Foul Odor after Cleansing No -Bioengineered Tissue No -Bleeding Controlled with Pressure -Offloading No -Treatment Response Procedure Tolerated Well -Debridement - Subq, 1st 20sq cm Yes 13-right heel ulcer -Time 16:10 -Correct Patient Yes -Correct Side, Site, Position Yes -Correct Procedure Yes -Procedure Performed Yes -Type of Procedure Debridement -Clinical Debridement Subcutaneous -Tissue Removed Subcutaneous -Post Debridement (cm) - Length 3.0 -Post Debridement (cm) - Width 2.0 -Post Debridement (cm) - Depth 0.1 -Total Square (Post) (cm) 6.00 -Area of Debridement (cm) - Length 3.0 -Area of Debridement (cm) - Width 2.0 -Total Square (Area) (cm) 6.00 -Tunneling No -Undermining/Tunneling No -Circular Undermining No -Wound/Ulcer Outcome Not Healed -Ulcer Cleansing Rinsed/ Irrigated with Saline -Foul Odor after Cleansing No -Bioengineered Tissue No -Bleeding Controlled with Pressure -Offloading No -Treatment Response Procedure Tolerated Well -Debridement - Subq, 1st 20sq cm No 12-left mid moser -Time 16:10 -Correct Patient Yes -Correct Side, Site, Position Yes -Correct Procedure Yes -Procedure Performed Yes -Type of Procedure Debridement -Clinical Debridement Subcutaneous -Tissue Removed Subcutaneous -Post Debridement (cm) - Length 0.7 -Post Debridement (cm) - Width 0.5 -Post Debridement (cm) - Depth 0.1 -Total Square (Post) (cm) 0.35 -Area of Debridement (cm) - Length 0.7 -Area of Debridement (cm) - Width 0.5 -Total Square (Area) (cm) 0.35 -Tunneling No -Undermining/Tunneling No -Circular Undermining No -Wound/Ulcer Outcome Not Healed -Ulcer Cleansing Rinsed/ Irrigated with Saline -Foul Odor after Cleansing No -Bioengineered Tissue No -Bleeding Controlled with Pressure -Offloading No -Treatment Response Procedure Tolerated Well -Debridement - Subq, 1st 20sq cm No #11 left superior moser -Time 16:11 -Correct Patient Yes -Correct Side, Site, Position Yes -Correct Procedure Yes -Procedure Performed Yes -Type of Procedure Debridement -Clinical Debridement Subcutaneous -Tissue Removed Subcutaneous -Post Debridement (cm) - Length 1.5 -Post Debridement (cm) - Width 1.3 -Post Debridement (cm) - Depth 0.1 -Total Square (Post) (cm) 1.95 -Area of Debridement (cm) - Length 1.5 -Area of Debridement (cm) - Width 1.3 -Total Square (Area) (cm) 1.95 -Tunneling No -Undermining/Tunneling No -Circular Undermining No -Wound/Ulcer Outcome Not Healed -Ulcer Cleansing Rinsed/ Irrigated with Saline -Foul Odor after Cleansing No -Bioengineered Tissue No -Bleeding Controlled with Pressure -Offloading No -Treatment Response Procedure Tolerated Well -Debridement - Subq, 1st 20sq cm No Pain Scale: 0-10 Numeric Is Patient Pain Free? Yes - Nurse 3 - General Ulcer D/C NN Start: 12/19/19 15:44 Freq: Status: Active Protocol: Activity Type Activity Date Activity User E-Sign Co-Sign Detail Recorded Client Recorded Date Recorded By Document 12/19/19 16:22 [facility] [id number] 12/19/19 16:24 [facility] 12/19/19 16:22 Wound Care Nurse 3 14. R moser -Ulcer Cleansing Rinsed/ Irrigated with Saline -Foul Odor after Cleansing No -Primary Dressing Applied Silvercel -Primary Dressing Covered/Secured with Dry Gauze & Roll Gauze, Secured with Tape -Silvercel 1 13-right heel ulcer -Ulcer Cleansing Rinsed/ Irrigated with Saline -Foul Odor after Cleansing No -Primary Dressing Applied Silvercel -Primary Dressing Covered/Secured with Dry Gauze & Roll Gauze, Secured with Tape -Silvercel 0 12-left mid moser -Ulcer Cleansing Rinsed/ Irrigated with Saline -Foul Odor after Cleansing No -Primary Dressing Applied Silvercel -Primary Dressing Covered/Secured with Dry Gauze & Roll Gauze, Secured with Tape -Silvercel 0 #11 left superior moser -Ulcer Cleansing Rinsed/ Irrigated with Saline -Foul Odor after Cleansing No -Primary Dressing Applied Silvercel -Primary Dressing Covered/Secured with Dry Gauze & Roll Gauze, Secured with Tape -Silvercel 0 Right -Other applied pts own single layer tubis Left -Other applied pts own single layer tubis Pain Scale: 0-10 Numeric Is Patient Pain Free? Yes WC - Visit Discharge Discharge Condition Stable Ambulatory Status Ambulatory Transportation Private Auto Accompanied by Facility Type Home Health Wound debrided: Right heel pressure ulcer and wound to b/l lower extremities Type of Debridement: Excisional debridement Anesthesia Used: 5% Lidocaine Gel Depth: Down to and including healthy tissue, in the subcutaneous layer Percentage of wound debrided: 100 Instrument Used: 5mm curette, 7mm curette Tissue Removed: slough and devitalized tissue Severity: Fat Layer Exposed Amount of bleeding with debridement: Mild Bleeding Controlled with: Pressure Patient tolerated procedure well Assessment/Plan Assessment: Same as above Plan: The patient was seen and examined at the wound center today and was updated on the plan of care. A subcutaneous debridement was performed today. The patient tolerated the procedure well. The patients wound care will consist of: hold advanced skin substitutes, may reconsider afterwards if pt requires vascular intervention which I feel is impeding wound healing. Use moistened silvercel to all ulcers and change three times a week d/t pts inability to do so more frequently. Patient tolerated the procedure well. For the right heel ulceration, due to the maceration hold on advanced skin substitute and will utilize silver cell cover with OPTifoam dressing for offloading. Patient is unable to tolerate any sort of offloading shoe at this time or cam walker. double-layer Tubigrip's for compression. Wound cultures were collected prior and reviewed above, patient has completed the Augmentin. Baseline bloodwork And Vascular studies recently ordered by Dr. Rose. Patient educated on the importance of diet on wound healing and instructed to increase protein and vitamin C intake. Patient verbalized understanding.Did discuss following up with podiatry discussed better offloading options.Patient also had an appointment scheduled with his vascular surgeon to discuss his PAD, will request records.Patient will follow up at wound healing center in one week or sooner if needed. Due to the patient's debility and difficulty caring for himself and having his dressings changed, do believe that patient would benefit from home health care and long term care (at which time patient still refuses). Discussed following up with primary care to have home health care ordered As nurse practitioners are unable to order this in [place].This note was generated with [employer] dictation software. It may contain incorrect words, spelling, and punctuation that were not noted in checking the note before signing. This note was generated with [employer] dictation software. It may contain incorrect words, spelling, and punctuation that were not noted in checking the note before signing. 111xxx-113xx: [id number] Luz subq tissue 20 sq cm/<
[2019-12-26 12:59] VITALS: BP 142/54; PULSE 66; RESP 16; TEMP 35.9; BMI 21.2
--- NOTE | 2019-12-26 14:28 | PCM.WC.PN ---
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 Status: Acute Current Visit: Yes Code(s): L97.922 - Non-pressure chronic ulcer of unspecified part of left lower leg with fat layer exposed (2) Non-healing ulcer of right foot with fat layer exposed Status: Acute Current Visit: Yes Code(s): L97.512 - Non-pressure chronic ulcer of other part of right foot with fat layer exposed Comment: heel (3) Debility Status: Acute Current Visit: Yes Code(s): R53.81 - Other malaise (4) Fall Status: Acute Current Visit: Yes Code(s): W19.XXXA - Unspecified fall, initial encounter (5) Neuropathy Status: Acute Current Visit: No Code(s): G62.9 - Polyneuropathy, unspecified (6) Rectal prolapse Status: Acute Current Visit: No Code(s): K62.3 - Rectal prolapse (7) Skin tear of left upper arm without complication Status: Acute Current Visit: No Code(s): S41.112A - Laceration without foreign body of left upper arm, initial encounter (8) Wound of right lower extremity Status: Acute Current Visit: No Code(s): S81.801A - Unspecified open wound, right lower leg, initial encounter (9) Chronic pain of right heel Status: Chronic Current Visit: No Code(s): M79.671 - Pain in right foot; G89.29 - Other chronic pain (10) Essential (primary) hypertension Status: Chronic Current Visit: No Code(s): I10 - Essential (primary) hypertension (11) Peripheral arterial occlusive disease Status: Chronic Current Visit: No Code(s): I77.9 - Disorder of arteries and arterioles, unspecified Comment: SFA PTCA/Stent 08/2012; Stent to distal RSFA to popliteal, Stent-Prox RSFA 10/23/13 Type of Wound Date of Service: 12/26/19 Chief Complaint: Chronic right heel ulceration, left lower leg ulcer History of Wound: Joaquin is an 83-year-old male who presents to the clinic today with complaints of a left lower extremity ulcer, as well as a chronic ulceration of the right heel, Both of which have been present for the last 2 months. He has a past medical history significant for CAD, PVD, peripheral neuropathy (Currently following up with neurology), and arthritis. He has a history of angioplasty and stent placement in his right superficial femoral artery and right popliteal artery. He continues to see Dr. Rose for vascular management And his most recent ABIs and 02/2019 showed a right RALPH of 1.07 and a left RALPH of 0.67. He also had vascular studies done in September 2019 from his primary care which showed valvular competence.The patient's states that they have been utilizing an [id number] salve on the patient's wounds without much improvement. They note clear to yellow Moderate drainage at times. He denies any purulent drainage, increasing pain, redness, swelling, foul odor, or other signs of infection. Patient also reports painful ulcerations of his right heel, which have been present Intermittently for the past 2 years. He was previously seen at the wound center for management of these ulcers. In the past, his cultures were positive for Maria M, and he was treated with antifungal topical treatment. He also had previously improved with use of orthotics, but reports that he is unable to tolerate these at this time. He was previously on gabapentin, for management of his chronic peripheral neuropathy. However his primary care provider has since discontinued his gabapentin Given the patient's multiple falls. He rates his pain 8 out of 10 and reports pain is intermittent and occurs with pressure/weightbearing. He is ambulatory with a cane. He also states that since his recent rectal prolapse that he has been almost entirely homebound and more debilitated and having more difficulty caring for himself. He denies any other acute concerns. Progress of Wound: 11/07/2019?patient's cultures were reviewed and showed Staphylococcus aureus he was placed on Bactrim and is tolerating well. His heel wound has not shown much improvement, his left lower extremity ulcers have showed slight improvement. First application of purapply a.m. today. 11/14/2019?no new concerns, there is some maceration of the heel and therefore will hold on pure apply application to the heel, second purapply application to the left lower extremity. Wound sizes are stable. 11/22/2019?new concerns, first application of nushield to the left lower extremity, patient did get approved for home health. 11/28/19-no new concerns, patient's wound cultures were reviewed and showed staph and anaerobic cocci and therefore patient was placed on Augmentin. 12/05/2019?no new concerns, patient tolerating the antibiotics well, still having difficulty with offloading the heel wound, home health assisting with dressing changes twice a week. 12/12/2019?patient still noncompliant with offloading, he is getting home health twice per week, he had a mechanical fall this past week and suffered a skin tear on his left upper arm and also a small new wound to his right lower extremity. Patient is resistant to discussing [place] [facility] or assisted living. He does have a follow-up appointment with Dr. Rose next week. His heel wound is deteriorated due to maceration and failure to offload. He currently is wearing crocs shoes. 12/19/2019?patient's wounds remained stable, no significant improvement. Patient did follow-up with Dr. Rose who reordered vascular studies. Patient continues to be very unsteady and actually almost fell while ambulating to his room at the wound center. 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 He continues to refuse nursing or assisted living. He continues to have difficulty with wound care and dressing changes and only gets them done 3 times per week with home care and at the wound healing center. Denies any new acute concerns. He does have a consult with podiatry in 2 weeks. 12/26/2019?no new concerns, still only able to get his dressing change 3 times per week and having difficulty with any offloading for his right heel. He is following up with podiatry in 1 week. Pending ABIs as ordered by vascular. - Physical Exam Vital Signs Temp Pulse Resp BP 96.6 F L 66 16 142/54 H 12/26/19 12:59 12/26/19 12:59 12/26/19 12:59 12/26/19 12:59 General: Alert, Oriented x3, Cooperative, No apparent distress HEENT: Atraumatic Oral: Moist Mucosa Neck: Supple Lungs: Clear to auscultation, Normal air movement Cardiovascular: Regular rate, Regular Rhythm Abdomen: Soft, Non Tender Extremities: No clubbing, No cyanosis, Diminished Peripheral Pulses - DP pulse not palpable on left, Edema - bilateral lower extremity edema Skin: Ulcer/ Wound - see nursing documentation, slough and devitalized tissue present, no signs of infection at this time. Wound Measurements and Assessment WC - Nurse 1 - General Ulcer Measurement Start: 12/19/19 15:44 Freq: Status: Active Protocol: Activity Type Activity Date Activity User E-Sign Co-Sign Detail Recorded Client Recorded Date Recorded By Document 12/26/19 12:59 [facility] [id number] 12/26/19 13:16 [facility] 12/26/19 12:59 Wound Center Nurse 1 [Ulcer Assessment] 14. R moser -Combined with other wound No -Current Size (cm) - Length 0.1 -Current Size (cm) - Width 0.1 -Current Size (cm) - Depth 0.1 -Total Square Cm 0.01 -Photo Taken No -Epithelialization Large 67-100% -Tunneling No -Undermining/Tunneling No -Circular Undermining No -Exudate Amt None Present -Texture (Michelle-wound Skin Appearance) Scarring -Moisture (Michelle-wound Skin Appearance Assessed,Dry/ ) Scaly -Color (Michelle-wound Skin Appearance) Assessed -Temperature (Michelle-wound Skin No Abnormality Appearance) (Pt Warm) -Tenderness on Palpation (Michelle-wound No Skin Appearance) -Ulcer Cleansing soapy water -Foul Odor after Cleansing No -Anesthetic Used 4% Lidocaine Solution 13-right heel ulcer -Combined with other wound No -Current Size (cm) - Length 0.8 -Current Size (cm) - Width 1.4 -Current Size (cm) - Depth 0.3 -Total Square Cm 1.12 -Photo Taken No -Epithelialization None Present -Tunneling No -Undermining/Tunneling No -Circular Undermining No -Exudate Amt Medium -Exudate Type Serosanguineous -Wound Margin Distinct, Outline Attached -Granulation Amt Medium (34-66%) -Granulation Quality Red -Slough/Fibrin Yes -Necrosis Amt Medium (34-66%) -Necrotic Tissue Type Adherent Slough -Texture (Michelle-wound Skin Appearance) Assessed, Scarring -Moisture (Michelle-wound Skin Appearance Assessed, ) Maceration -Color (Michelle-wound Skin Appearance) Assessed, Erythema,Palor -Temperature (Michelle-wound Skin No Abnormality Appearance) (Pt Warm) -Tenderness on Palpation (Michelle-wound Yes Skin Appearance) -Ulcer Cleansing soapy water -Foul Odor after Cleansing No -Anesthetic Used 4% Lidocaine Solution 12-left mid moser -Combined with other wound No -Current Size (cm) - Length 0.5 -Current Size (cm) - Width 0.3 -Current Size (cm) - Depth 0.1 -Total Square Cm 0.15 -Photo Taken No -Epithelialization None Present -Tunneling No -Undermining/Tunneling No -Circular Undermining No -Exudate Amt None Present -Wound Margin Distinct, Outline Attached -Slough/Fibrin Yes -Necrosis Amt Large (67-100%) -Necrotic Tissue Type Adherent Slough -Texture (Michelle-wound Skin Appearance) Assessed, Scarring -Moisture (Michelle-wound Skin Appearance Assessed,Dry/ ) Scaly -Color (Michelle-wound Skin Appearance) Assessed -Temperature (Michelle-wound Skin No Abnormality Appearance) (Pt Warm) -Tenderness on Palpation (Michelle-wound No Skin Appearance) -Ulcer Cleansing soapy water -Foul Odor after Cleansing No -Anesthetic Used 4% Lidocaine Solution #11 left superior moser -Combined with other wound No -Current Size (cm) - Length 1 -Current Size (cm) - Width 0.9 -Current Size (cm) - Depth 0.2 -Total Square Cm 0.9 -Photo Taken No -Epithelialization None Present -Tunneling No -Undermining/Tunneling No -Circular Undermining No -Exudate Amt Small -Exudate Type Serosanguineous -Wound Margin Distinct, Outline Attached -Granulation Amt Small (1-33%) -Granulation Quality Red -Slough/Fibrin Yes -Necrosis Amt Large (67-100%) -Necrotic Tissue Type Adherent Slough -Texture (Michelle-wound Skin Appearance) Assessed, Scarring -Moisture (Michelle-wound Skin Appearance Assessed,Dry/ ) Scaly -Color (Michelle-wound Skin Appearance) Assessed -Temperature (Michelle-wound Skin No Abnormality Appearance) (Pt Warm) -Tenderness on Palpation (Michelle-wound Yes Skin Appearance) -Ulcer Cleansing soapy water -Foul Odor after Cleansing No -Anesthetic Used 4% Lidocaine Solution [Edema Assessment] -Lower Limb Edema Present Yes -Right Calf (cm) 32.8 -Right Ankle (cm) 20.5 -Left Calf (cm) 32.5 -Point of Measurement (cm from the 20.2 medial instep) WC - Nurse 2 - General Ulcer CM Notes Start: 12/19/19 15:44 Freq: Status: Active Protocol: Activity Type Activity Date Activity User E-Sign Co-Sign Detail Recorded Client Recorded Date Recorded By Document 12/26/19 13:42 MW [id number] 12/26/19 13:51 MW 12/26/19 13:42 Wound Center Nurse 2 [Procedure/Treatment] 14. R moser -Time 13:48 -Correct Patient Yes -Procedure Performed No -Post Debridement (cm) - Length 0 -Post Debridement (cm) - Width 0 -Post Debridement (cm) - Depth 0 -Total Square (Post) (cm) 0 -Wound/Ulcer Outcome Healed- Epithelialized 13-right heel ulcer -Time 13:50 -Correct Patient Yes -Correct Side, Site, Position Yes -Correct Procedure Yes -Procedure Performed Yes -Type of Procedure Debridement -Clinical Debridement Subcutaneous -Tissue Removed Subcutaneous -Post Debridement (cm) - Length 2.5 -Post Debridement (cm) - Width 2.0 -Post Debridement (cm) - Depth 0.2 -Total Square (Post) (cm) 5.00 -Area of Debridement (cm) - Length 2.5 -Area of Debridement (cm) - Width 2.0 -Total Square (Area) (cm) 5.00 -Tunneling No -Undermining/Tunneling No -Circular Undermining No -Wound/Ulcer Outcome Not Healed -Ulcer Cleansing Rinsed/ Irrigated with Saline -Foul Odor after Cleansing No -Bioengineered Tissue No -Bleeding Controlled with Pressure -Offloading No -Treatment Response Procedure Tolerated Well -Debridement - Subq, 1st 20sq cm Yes 12-left mid moser -Time 13:50 -Correct Patient Yes -Correct Side, Site, Position Yes -Correct Procedure Yes -Procedure Performed Yes -Type of Procedure Debridement -Clinical Debridement Subcutaneous -Tissue Removed Subcutaneous -Post Debridement (cm) - Length 0.7 -Post Debridement (cm) - Width 0.5 -Post Debridement (cm) - Depth 0.1 -Total Square (Post) (cm) 0.35 -Area of Debridement (cm) - Length 0.7 -Area of Debridement (cm) - Width 0.5 -Total Square (Area) (cm) 0.35 -Tunneling No -Undermining/Tunneling No -Circular Undermining No -Wound/Ulcer Outcome Not Healed -Ulcer Cleansing Rinsed/ Irrigated with Saline -Foul Odor after Cleansing No -Bioengineered Tissue No -Bleeding Controlled with Pressure -Offloading No -Treatment Response Procedure Tolerated Well -Debridement - Subq, 1st 20sq cm No #11 left superior moser -Time 13:51 -Correct Patient Yes -Correct Side, Site, Position Yes -Correct Procedure Yes -Procedure Performed Yes -Type of Procedure Debridement -Clinical Debridement Subcutaneous -Tissue Removed Subcutaneous -Post Debridement (cm) - Length 1.0 -Post Debridement (cm) - Width 1.0 -Post Debridement (cm) - Depth 0.1 -Total Square (Post) (cm) 1.00 -Area of Debridement (cm) - Length 1.0 -Area of Debridement (cm) - Width 1.0 -Total Square (Area) (cm) 1.00 -Tunneling No -Undermining/Tunneling No -Circular Undermining No -Wound/Ulcer Outcome Not Healed -Ulcer Cleansing Rinsed/ Irrigated with Saline -Foul Odor after Cleansing No -Bioengineered Tissue No -Bleeding Controlled with Pressure -Offloading No -Debridement - Subq, 1st 20sq cm No [See Physician Procedure note for Specifics] Pain Scale: 0-10 Numeric [Pain] -Is Patient Pain Free? Yes - Nurse 3 - General Ulcer D/C NN Start: 12/19/19 15:44 Freq: Status: Active Protocol: Activity Type Activity Date Activity User E-Sign Co-Sign Detail Recorded Client Recorded Date Recorded By Document 12/26/19 14:14 MT [id number] 12/26/19 14:15 MT 12/26/19 14:14 Wound Care Nurse 3 [Wound Dressing] 13-right heel ulcer -Primary Dressing Applied Silvercel -Silvercel 1 - Visit Discharge [Visit Discharge Information] -Ambulatory Status Walker -Transportation Private Auto -Medication Reconcilliation completed No & provided to patient/care provider -Clinical Summary of Care Provided Yes Musculoskeletal: Arthritic Changes Neurological: Neuro grossly intact Psych/Mental Status: Normal Affect, Appropriate, Alert and oriented to time, place, person, mood and affect Debridement Note Post-Debridement Measurements/Treatment - Nurse 2 - General Ulcer CM Notes Start: 12/19/19 15:44 Freq: Status: Active Protocol: Activity Type Activity Date Activity User E-Sign Co-Sign Detail Recorded Client Recorded Date Recorded By Document 12/19/19 16:09 MW [id number] 12/19/19 16:17 MW Document 12/26/19 13:42 MW [id number] 12/26/19 13:51 MW 12/19/19 12/26/19 16:09 13:42 Wound Center Nurse 2 15, L upper arm cluster -Time 16:10 -Correct Patient Yes -Correct Side, Site, Position Yes -Correct Procedure Yes -Procedure Performed No -Wound/Ulcer Outcome Healed- Epithelialized 14. R moser -Time 16:10 13:48 -Correct Patient Yes Yes -Correct Side, Site, Position Yes -Correct Procedure Yes -Procedure Performed Yes No -Type of Procedure Debridement -Clinical Debridement Subcutaneous -Tissue Removed Subcutaneous -Post Debridement (cm) - Length 1.0 0 -Post Debridement (cm) - Width 0.5 0 -Post Debridement (cm) - Depth 0.1 0 -Total Square (Post) (cm) 0.50 0 -Area of Debridement (cm) - Length 1.0 -Area of Debridement (cm) - Width 0.5 -Total Square (Area) (cm) 0.50 -Tunneling No -Undermining/Tunneling No -Circular Undermining No -Wound/Ulcer Outcome Not Healed Healed- Epithelialized -Ulcer Cleansing Rinsed/ Irrigated with Saline -Foul Odor after Cleansing No -Bioengineered Tissue No -Bleeding Controlled with Pressure -Offloading No -Treatment Response Procedure Tolerated Well -Debridement - Subq, 1st 20sq cm Yes 13-right heel ulcer -Time 16:10 13:50 -Correct Patient Yes Yes -Correct Side, Site, Position Yes Yes -Correct Procedure Yes Yes -Procedure Performed Yes Yes -Type of Procedure Debridement Debridement -Clinical Debridement Subcutaneous Subcutaneous -Tissue Removed Subcutaneous Subcutaneous -Post Debridement (cm) - Length 3.0 2.5 -Post Debridement (cm) - Width 2.0 2.0 -Post Debridement (cm) - Depth 0.1 0.2 -Total Square (Post) (cm) 6.00 5.00 -Area of Debridement (cm) - Length 3.0 2.5 -Area of Debridement (cm) - Width 2.0 2.0 -Total Square (Area) (cm) 6.00 5.00 -Tunneling No No -Undermining/Tunneling No No -Circular Undermining No No -Wound/Ulcer Outcome Not Healed Not Healed -Ulcer Cleansing Rinsed/ Rinsed/ Irrigated with Irrigated with Saline Saline -Foul Odor after Cleansing No No -Bioengineered Tissue No No -Bleeding Controlled with Pressure Pressure -Offloading No No -Treatment Response Procedure Procedure Tolerated Well Tolerated Well -Debridement - Subq, 1st 20sq cm No Yes 12-left mid moser -Time 16:10 13:50 -Correct Patient Yes Yes -Correct Side, Site, Position Yes Yes -Correct Procedure Yes Yes -Procedure Performed Yes Yes -Type of Procedure Debridement Debridement -Clinical Debridement Subcutaneous Subcutaneous -Tissue Removed Subcutaneous Subcutaneous -Post Debridement (cm) - Length 0.7 0.7 -Post Debridement (cm) - Width 0.5 0.5 -Post Debridement (cm) - Depth 0.1 0.1 -Total Square (Post) (cm) 0.35 0.35 -Area of Debridement (cm) - Length 0.7 0.7 -Area of Debridement (cm) - Width 0.5 0.5 -Total Square (Area) (cm) 0.35 0.35 -Tunneling No No -Undermining/Tunneling No No -Circular Undermining No No -Wound/Ulcer Outcome Not Healed Not Healed -Ulcer Cleansing Rinsed/ Rinsed/ Irrigated with Irrigated with Saline Saline -Foul Odor after Cleansing No No -Bioengineered Tissue No No -Bleeding Controlled with Pressure Pressure -Offloading No No -Treatment Response Procedure Procedure Tolerated Well Tolerated Well -Debridement - Subq, 1st 20sq cm No No #11 left superior moser -Time 16:11 13:51 -Correct Patient Yes Yes -Correct Side, Site, Position Yes Yes -Correct Procedure Yes Yes -Procedure Performed Yes Yes -Type of Procedure Debridement Debridement -Clinical Debridement Subcutaneous Subcutaneous -Tissue Removed Subcutaneous Subcutaneous -Post Debridement (cm) - Length 1.5 1.0 -Post Debridement (cm) - Width 1.3 1.0 -Post Debridement (cm) - Depth 0.1 0.1 -Total Square (Post) (cm) 1.95 1.00 -Area of Debridement (cm) - Length 1.5 1.0 -Area of Debridement (cm) - Width 1.3 1.0 -Total Square (Area) (cm) 1.95 1.00 -Tunneling No No -Undermining/Tunneling No No -Circular Undermining No No -Wound/Ulcer Outcome Not Healed Not Healed -Ulcer Cleansing Rinsed/ Rinsed/ Irrigated with Irrigated with Saline Saline -Foul Odor after Cleansing No No -Bioengineered Tissue No No -Bleeding Controlled with Pressure Pressure -Offloading No No -Treatment Response Procedure Tolerated Well -Debridement - Subq, 1st 20sq cm No No Pain Scale: 0-10 Numeric Is Patient Pain Free? Yes Yes - Nurse 3 - General Ulcer D/C NN Start: 12/19/19 15:44 Freq: Status: Active Protocol: Activity Type Activity Date Activity User E-Sign Co-Sign Detail Recorded Client Recorded Date Recorded By Document 12/19/19 16:22 [facility] [id number] 12/19/19 16:24 [facility] Document 12/26/19 14:14 MN [id number] 12/26/19 14:15 MN 12/19/19 12/26/19 16:22 14:14 Wound Care Nurse 3 14. R moser -Ulcer Cleansing Rinsed/ Irrigated with Saline -Foul Odor after Cleansing No -Primary Dressing Applied Silvercel -Primary Dressing Covered/Secured with Dry Gauze & Roll Gauze, Secured with Tape -Silvercel 1 13-right heel ulcer -Ulcer Cleansing Rinsed/ Irrigated with Saline -Foul Odor after Cleansing No -Primary Dressing Applied Silvercel Silvercel -Primary Dressing Covered/Secured with Dry Gauze & Roll Gauze, Secured with Tape -Silvercel 0 1 12-left mid moser -Ulcer Cleansing Rinsed/ Irrigated with Saline -Foul Odor after Cleansing No -Primary Dressing Applied Silvercel -Primary Dressing Covered/Secured with Dry Gauze & Roll Gauze, Secured with Tape -Silvercel 0 #11 left superior moser -Ulcer Cleansing Rinsed/ Irrigated with Saline -Foul Odor after Cleansing No -Primary Dressing Applied Silvercel -Primary Dressing Covered/Secured with Dry Gauze & Roll Gauze, Secured with Tape -Silvercel 0 Right -Other applied pts own single layer tubis Left -Other applied pts own single layer tubis Pain Scale: 0-10 Numeric Is Patient Pain Free? Yes - Visit Discharge Discharge Condition Stable Ambulatory Status Ambulatory Walker Transportation Private Auto Private Auto Accompanied by Medication Reconcilliation completed & No provided to patient/care provider Clinical Summary of Care Provided Yes Facility Type Home Health Wound debrided: Right heel pressure injury, left lower extremity ulcers Type of Debridement: Excisional debridement Anesthesia Used: 5% Lidocaine Gel Depth: in the subcutaneous layer Percentage of wound debrided: 100 Instrument Used: 5mm curette, 7mm curette Tissue Removed: Slough and devitalized tissue Severity: Fat Layer Exposed Amount of bleeding with debridement: Mild Bleeding Controlled with: Pressure, Silver Nitrate Patient tolerated procedure well Assessment/Plan Active Problems (Last Reviewed 11/21/19 @ 10:52 by Holly Calzada) Non-healing ulcer of right foot with fat layer exposed (Acute) heel Nonhealing ulcer of left lower extremity with fat layer exposed (Acute) Fall (Acute) Debility (Acute) Assessment: Same as above Plan: The patient was seen and examined at the wound center today and was updated on the plan of care. A subcutaneous debridement was performed today. The patient tolerated the procedure well. The patients wound care will consist of: hold advanced skin substitutes, may reconsider afterwards if pt requires vascular intervention which I feel is impeding wound healing. Use moistened silvercel to all ulcers and change three times a week d/t pts inability to do so more frequently. Patient tolerated the procedure well. For the right heel ulceration, due to the maceration hold on advanced skin substitute and will utilize silver cell cover with OPTifoam dressing for offloading. Patient is unable to tolerate any sort of offloading shoe at this time or cam walker. double-layer Tubigrip's for compression. Wound cultures were collected prior and reviewed above, patient has completed the Augmentin. Baseline bloodwork And Vascular studies recently ordered by Dr. Rose. Patient educated on the importance of diet on wound healing and instructed to increase protein and vitamin C intake. Patient verbalized understanding.Did discuss following up with podiatry discussed better offloading options.Patient will follow up at wound healing center in one week or sooner if needed. Due to the patient's debility and difficulty caring for himself and having his dressings changed, do believe that patient would benefit from home health care and [place] [facility] care (at which time patient still refuses). Discussed following up with primary care to have home health care ordered As nurse practitioners are unable to order this in [place].This note was generated with Videostrip software. It may contain incorrect words, spelling, and punctuation that were not noted in checking the note before signing. This note was generated with Videostrip software. It may contain incorrect words, spelling, and punctuation that were not noted in checking the note before signing. [id number]: [id number] Luz subq tissue 20 sq cm/<
[2020-01-01 15:44] VITALS: BP 108/51; PULSE 66; RESP 18; TEMP 36.4; BMI 21.2
--- NOTE | 2020-01-01 16:39 | PCM.WC.PN ---
(1) Debility Status: Acute Code(s): R53.81 - Other malaise (2) Fall Status: Acute Code(s): W19.XXXA - Unspecified fall, initial encounter (3) Non-healing ulcer of right foot with fat layer exposed Status: Acute Code(s): L97.512 - Non-pressure chronic ulcer of other part of right foot with fat layer exposed Comment: heel (4) Nonhealing ulcer of left lower extremity with fat layer exposed Status: Acute Code(s): L97.922 - Non-pressure chronic ulcer of unspecified part of left lower leg with fat layer exposed (5) Neuropathy Status: Acute Code(s): G62.9 - Polyneuropathy, unspecified (6) Chronic pain of right heel Status: Chronic Code(s): M79.671 - Pain in right foot; G89.29 - Other chronic pain (7) Delayed wound healing Status: Acute Code(s): T14.8XXD - Other injury of unspecified body region, subsequent encounter Type of Wound Date of Service: 01/01/20 Chief Complaint: Chronic right heel ulceration, left lower leg ulcer History of Wound: Joaquin is an 84-year-old male who presents to the clinic today with complaints of a left lower extremity ulcer, as well as a 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 He has a past medical history significant for CAD, PVD, peripheral neuropathy (Currently following up with neurology), and arthritis. He has a history of angioplasty and stent placement in his right superficial femoral artery and right popliteal artery. He was also previously followed with Dr. Rose for vascular management in which his prior ABIs from 02/2019 showed a right RALPH of 1.07 and a left RALPH of 0.67. He also had vascular studies done in September 2019 from his primary care which showed valvular competence. He has not been able to offload due to loss of balance and ongoing falls. He is with his today. He is here today for an additional podiatric evaluation. In the recent past, he also completed a course of antibiotics for Staphylococcus aureus infection. He was also treated with antimicrobial collagen dressing, Puraply and recently with amnio advanced wound healing product [facility]. Progress of Wound: stable - Physical Exam Vital Signs Temp Pulse Resp BP 97.6 F L 66 18 108/51 L 01/01/20 15:44 01/01/20 15:44 01/01/20 15:44 01/01/20 15:44 General: Alert, Oriented x3, Cooperative, No apparent distress HEENT: Atraumatic Extremities: No cyanosis, Capillary Refill Less than 3 Seconds, No Calf Tenderness, Diminished Peripheral Pulses, Edema Skin: Ulcer/ Wound - No purulence, erythema, streaking, odor, infection. There is no deep tissue exposure or necrosis. His adjacent skin is hairless and atrophic Wound Measurements and Assessment WC - Nurse 1 - General Ulcer Measurement Start: 12/19/19 15:44 Freq: Status: Active Protocol: Activity Type Activity Date Activity User E-Sign Co-Sign Detail Recorded Client Recorded Date Recorded By Document 01/01/20 15:44 RB [id number] 01/01/20 15:58 RB 01/01/20 15:44 Wound Center Nurse 1 [Ulcer Assessment] 13-right heel ulcer -Combined with other wound No -Current Size (cm) - Length 2.2 -Current Size (cm) - Width 2 -Current Size (cm) - Depth 0.2 -Total Square Cm 4.4 -Tunneling No -Undermining/Tunneling No -Circular Undermining No -Exudate Amt Medium -Exudate Type Serosanguineous -Wound Margin Flat & Intact -Granulation Amt Medium (34-66%) -Granulation Quality [place] -Slough/Fibrin Yes -Necrosis Amt Small (1-33%) -Necrotic Tissue Type Adherent Slough -Structure Exposed N/A -Texture (Michelle-wound Skin Appearance) Callus -Moisture (Michelle-wound Skin Appearance Assessed,Dry/ ) Scaly -Color (Michelle-wound Skin Appearance) Assessed -Temperature (Michelle-wound Skin No Abnormality Appearance) (Pt Warm) -Tenderness on Palpation (Michelle-wound No Skin Appearance) -Ulcer Cleansing Wound Cleanser -Foul Odor after Cleansing No -Anesthetic Used 5% Lidocaine Gel 12-left mid moser -Combined with other wound No -Current Size (cm) - Length 0.3 -Current Size (cm) - Width 0.3 -Current Size (cm) - Depth 0.1 -Total Square Cm 0.09 -Tunneling No -Undermining/Tunneling No -Circular Undermining No -Exudate Amt Small -Exudate Type Serosanguineous -Wound Margin Flat & Intact -Granulation Amt Large (67-100%) -Granulation Quality [place] -Slough/Fibrin Yes -Necrosis Amt Small (1-33%) -Necrotic Tissue Type Adherent Slough -Structure Exposed N/A -Texture (Michelle-wound Skin Appearance) Assessed -Moisture (Michelle-wound Skin Appearance Dry/Scaly ) -Color (Michelle-wound Skin Appearance) Assessed -Temperature (Michelle-wound Skin No Abnormality Appearance) (Pt Warm) -Tenderness on Palpation (Michelle-wound No Skin Appearance) -Ulcer Cleansing Wound Cleanser -Foul Odor after Cleansing No -Anesthetic Used 5% Lidocaine Gel #11 left superior moser -Combined with other wound No -Current Size (cm) - Length 1 -Current Size (cm) - Width 0.7 -Current Size (cm) - Depth 0.1 -Total Square Cm 0.7 -Tunneling No -Undermining/Tunneling No -Circular Undermining No -Exudate Amt Small -Exudate Type Serosanguineous -Wound Margin Flat & Intact -Granulation Amt Large (67-100%) -Granulation Quality [place] -Slough/Fibrin Yes -Necrosis Amt Small (1-33%) -Necrotic Tissue Type Adherent Slough -Structure Exposed N/A -Texture (Michelle-wound Skin Appearance) Assessed -Moisture (Michelle-wound Skin Appearance Dry/Scaly ) -Color (Michelle-wound Skin Appearance) Assessed -Temperature (Michelle-wound Skin No Abnormality Appearance) (Pt Warm) -Tenderness on Palpation (Michelle-wound No Skin Appearance) -Ulcer Cleansing Wound Cleanser -Foul Odor after Cleansing No -Anesthetic Used 5% Lidocaine Gel [Edema Assessment] -Lower Limb Edema Present Yes -Right Calf (cm) 33.5 -Right Ankle (cm) 20 -Left Calf (cm) 28.2 -Left Ankle (cm) 20.8 Musculoskeletal: No Tenderness to Palpation of Joints or Extremities, Muscle Wasting Neurological: - - Lack of normal epicritic sensation light touch is consistent with his neuropathy status. Psych/Mental Status: Normal Affect, Appropriate Debridement Note Post-Debridement Measurements/Treatment WC - Nurse 2 - General Ulcer CM Notes Start: 12/19/19 15:44 Freq: Status: Active Protocol: Activity Type Activity Date Activity User E-Sign Co-Sign Detail Recorded Client Recorded Date Recorded By Document 12/19/19 16:09 MW [id number] 12/19/19 16:17 MW Document 12/26/19 13:42 MW [id number] 12/26/19 13:51 MW 12/19/19 12/26/19 16:09 13:42 Wound Center Nurse 2 15, L upper arm cluster -Time 16:10 -Correct Patient Yes -Correct Side, Site, Position Yes -Correct Procedure Yes -Procedure Performed No -Wound/Ulcer Outcome Healed- Epithelialized 14. R moser -Time 16:10 13:48 -Correct Patient Yes Yes -Correct Side, Site, Position Yes -Correct Procedure Yes -Procedure Performed Yes No -Type of Procedure Debridement -Clinical Debridement Subcutaneous -Tissue Removed Subcutaneous -Post Debridement (cm) - Length 1.0 0 -Post Debridement (cm) - Width 0.5 0 -Post Debridement (cm) - Depth 0.1 0 -Total Square (Post) (cm) 0.50 0 -Area of Debridement (cm) - Length 1.0 -Area of Debridement (cm) - Width 0.5 -Total Square (Area) (cm) 0.50 -Tunneling No -Undermining/Tunneling No -Circular Undermining No -Wound/Ulcer Outcome Not Healed Healed- Epithelialized -Ulcer Cleansing Rinsed/ Irrigated with Saline -Foul Odor after Cleansing No -Bioengineered Tissue No -Bleeding Controlled with Pressure -Offloading No -Treatment Response Procedure Tolerated Well -Debridement - Subq, 1st 20sq cm Yes 13-right heel ulcer -Time 16:10 13:50 -Correct Patient Yes Yes -Correct Side, Site, Position Yes Yes -Correct Procedure Yes Yes -Procedure Performed Yes Yes -Type of Procedure Debridement Debridement -Clinical Debridement Subcutaneous Subcutaneous -Tissue Removed Subcutaneous Subcutaneous -Post Debridement (cm) - Length 3.0 2.5 -Post Debridement (cm) - Width 2.0 2.0 -Post Debridement (cm) - Depth 0.1 0.2 -Total Square (Post) (cm) 6.00 5.00 -Area of Debridement (cm) - Length 3.0 2.5 -Area of Debridement (cm) - Width 2.0 2.0 -Total Square (Area) (cm) 6.00 5.00 -Tunneling No No -Undermining/Tunneling No No -Circular Undermining No No -Wound/Ulcer Outcome Not Healed Not Healed -Ulcer Cleansing Rinsed/ Rinsed/ Irrigated with Irrigated with Saline Saline -Foul Odor after Cleansing No No -Bioengineered Tissue No No -Bleeding Controlled with Pressure Pressure -Offloading No No -Treatment Response Procedure Procedure Tolerated Well Tolerated Well -Debridement - Subq, 1st 20sq cm No Yes 12-left mid moser -Time 16:10 13:50 -Correct Patient Yes Yes -Correct Side, Site, Position Yes Yes -Correct Procedure Yes Yes -Procedure Performed Yes Yes -Type of Procedure Debridement Debridement -Clinical Debridement Subcutaneous Subcutaneous -Tissue Removed Subcutaneous Subcutaneous -Post Debridement (cm) - Length 0.7 0.7 -Post Debridement (cm) - Width 0.5 0.5 -Post Debridement (cm) - Depth 0.1 0.1 -Total Square (Post) (cm) 0.35 0.35 -Area of Debridement (cm) - Length 0.7 0.7 -Area of Debridement (cm) - Width 0.5 0.5 -Total Square (Area) (cm) 0.35 0.35 -Tunneling No No -Undermining/Tunneling No No -Circular Undermining No No -Wound/Ulcer Outcome Not Healed Not Healed -Ulcer Cleansing Rinsed/ Rinsed/ Irrigated with Irrigated with Saline Saline -Foul Odor after Cleansing No No -Bioengineered Tissue No No -Bleeding Controlled with Pressure Pressure -Offloading No No -Treatment Response Procedure Procedure Tolerated Well Tolerated Well -Debridement - Subq, 1st 20sq cm No No #11 left superior moser -Time 16:11 13:51 -Correct Patient Yes Yes -Correct Side, Site, Position Yes Yes -Correct Procedure Yes Yes -Procedure Performed Yes Yes -Type of Procedure Debridement Debridement -Clinical Debridement Subcutaneous Subcutaneous -Tissue Removed Subcutaneous Subcutaneous -Post Debridement (cm) - Length 1.5 1.0 -Post Debridement (cm) - Width 1.3 1.0 -Post Debridement (cm) - Depth 0.1 0.1 -Total Square (Post) (cm) 1.95 1.00 -Area of Debridement (cm) - Length 1.5 1.0 -Area of Debridement (cm) - Width 1.3 1.0 -Total Square (Area) (cm) 1.95 1.00 -Tunneling No No -Undermining/Tunneling No No -Circular Undermining No No -Wound/Ulcer Outcome Not Healed Not Healed -Ulcer Cleansing Rinsed/ Rinsed/ Irrigated with Irrigated with Saline Saline -Foul Odor after Cleansing No No -Bioengineered Tissue No No -Bleeding Controlled with Pressure Pressure -Offloading No No -Treatment Response Procedure Tolerated Well -Debridement - Subq, 1st 20sq cm No No Pain Scale: 0-10 Numeric Is Patient Pain Free? Yes Yes - Nurse 3 - General Ulcer D/C NN Start: 12/19/19 15:44 Freq: Status: Active Protocol: Activity Type Activity Date Activity User E-Sign Co-Sign Detail Recorded Client Recorded Date Recorded By Document 12/19/19 16:22 [facility] [id number] 12/19/19 16:24 [facility] Document 12/26/19 14:[address] [id number] 12/26/19 14:15 CT 12/19/19 12/26/19 16:22 14:14 Wound Care Nurse 3 14. R moser -Ulcer Cleansing Rinsed/ Irrigated with Saline -Foul Odor after Cleansing No -Primary Dressing Applied Silvercel -Primary Dressing Covered/Secured with Dry Gauze & Roll Gauze, Secured with Tape -Silvercel 1 13-right heel ulcer -Ulcer Cleansing Rinsed/ Irrigated with Saline -Foul Odor after Cleansing No -Primary Dressing Applied Silvercel Silvercel -Primary Dressing Covered/Secured with Dry Gauze & Roll Gauze, Secured with Tape -Silvercel 0 1 12-left mid moser -Ulcer Cleansing Rinsed/ Irrigated with Saline -Foul Odor after Cleansing No -Primary Dressing Applied Silvercel -Primary Dressing Covered/Secured with Dry Gauze & Roll Gauze, Secured with Tape -Silvercel 0 #11 left superior moser -Ulcer Cleansing Rinsed/ Irrigated with Saline -Foul Odor after Cleansing No -Primary Dressing Applied Silvercel -Primary Dressing Covered/Secured with Dry Gauze & Roll Gauze, Secured with Tape -Silvercel 0 Right -Other applied pts own single layer tubis Left -Other applied pts own single layer tubis Pain Scale: 0-10 Numeric Is Patient Pain Free? Yes - Visit Discharge Discharge Condition Stable Ambulatory Status Ambulatory Walker Transportation Private Auto Private Auto Accompanied by Medication Reconcilliation completed & No provided to patient/care provider Clinical Summary of Care Provided Yes Facility Type Home Health Wound debrided: heel Laterality: Right Type of Debridement: Excisional debridement Anesthesia Used: 5% Lidocaine Gel Depth: in the subcutaneous layer Percentage of wound debrided: 100 Instrument Used: #15 blade Tissue Removed: fibrous, devitalized subcutaneous, biofilm, slough Severity: Fat Layer Exposed Amount of bleeding with debridement: Mild Bleeding Controlled with: Pressure Patient tolerated procedure well - Additional Wound Wound debrided: leg (mid anterior and superior anterior) Laterality: Left Type of Debridement: Excisional debridement Anesthesia Used: 5% Lidocaine Gel Depth: in the subcutaneous layer Percentage of wound debrided: 100 Instrument Used: #15 blade Tissue Removed: fibrous, devitalized subcutaneous, biofilm, slough Severity: Fat Layer Exposed Amount of bleeding with debridement: Mild Bleeding Controlled with: Pressure Patient tolerated procedure: Patient tolerated procedure well Assessment/Plan Assessment: Same as above Plan: The patient was seen and examined at the wound center today and was updated on the plan of care. A subcutaneous debridement was performed today. The patient tolerated the procedure well. He does not have any maceration or signs of infection. Therefore I do recommend application of advanced wound healing product, Nushield. The benefits, indications, anticipated application management were reviewed. Verbal consent was obtained. This was applied according standard protocol secured in place with a wound veil and Steri-Strips. He did tolerate this well. He was advised to keep this clean, dry, and intact until follow-up next week. I recommend additional follow up with vascular surgeon, Dr. Rose to confirm if his arterial intervention has been optimized or if there are any additional vascular intervention opportunities. To continue with double-layer Tubigrip's for compression. He was reassured no local signs of infection are noted today and I do not recommend additional antibiotics. Baseline bloodwork was reviewed in [facility] from July. I recommend updating his lab work at this time. I also recommend ordering a foot xray to evaluate for any potential underlying osseous involvmenet given the chronicity of his ulcer. An order was provided. Patient educated on the importance of diet on wound healing and instructed to reduce processed foods, strive for eating many servings of whole fruits and vegetables daily, increase protein and vitamin C intake. A bird cage assembler referral was provided today and the benefits and indications were reviewed. This patient verbalized understanding. I also recommend improved offloading. I recommended offloading donut daysi to take pressure off of his heel while lying in bed. His elects to obtain this off of [employer]. I also recommend reducing direct pressure with standing with the use of an assistive device which she already has. The surgical shoe with dual layer Plastizote with offloading pocket was fabricated today. Ideally a cam walker with offloading pockets or total contact cast would offload better however with his fall risk this is not recommended. He understands this is going to limit his healing potential. Due to the patient's debility and difficulty caring for himself and having his dressings changed, do also believe that patient would benefit from home health care and long-term care (at which time patient still refuses). The consultation is appreciated and I may be contacted if further questions arise. I answered the patients questions. He will follow up at the wound healing center next week.
[2020-01-09 13:06] VITALS: BP 134/57; PULSE 64; RESP 18; TEMP 36.6; BMI 21.2
[2020-01-09 14:06] VITALS: BP 149/68; PULSE 64; RESP 16; TEMP 36.6
--- NOTE | 2020-01-09 16:16 | PCM.WC.PN ---
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 Status: Acute Current Visit: Yes Code(s): L97.922 - Non-pressure chronic ulcer of unspecified part of left lower leg with fat layer exposed (2) Non-healing ulcer of right foot with fat layer exposed Status: Acute Current Visit: Yes Code(s): L97.512 - Non-pressure chronic ulcer of other part of right foot with fat layer exposed Comment: heel (3) Debility Status: Acute Current Visit: Yes Code(s): R53.81 - Other malaise (4) Fall Status: Acute Current Visit: Yes Code(s): W19.XXXA - Unspecified fall, initial encounter (5) Neuropathy Status: Acute Current Visit: Yes Code(s): G62.9 - Polyneuropathy, unspecified (6) Rectal prolapse Status: Acute Current Visit: Yes Code(s): K62.3 - Rectal prolapse (7) Skin tear of left upper arm without complication Status: Acute Current Visit: Yes Code(s): S41.112A - Laceration without foreign body of left upper arm, initial encounter (8) Wound of right lower extremity Status: Acute Current Visit: Yes Code(s): S81.801A - Unspecified open wound, right lower leg, initial encounter (9) Chronic pain of right heel Status: Chronic Current Visit: Yes Code(s): M79.671 - Pain in right foot; G89.29 - Other chronic pain (10) Essential (primary) hypertension Status: Chronic Current Visit: No Code(s): I10 - Essential (primary) hypertension (11) Peripheral arterial occlusive disease Status: Chronic Current Visit: Yes Code(s): I77.9 - Disorder of arteries and arterioles, unspecified Comment: SFA PTCA/Stent 08/2012; Stent to distal RSFA to popliteal, Stent-Prox RSFA 10/23/13 Type of Wound Date of Service: 01/09/20 Chief Complaint: Chronic right heel ulceration, left lower leg ulcer History of Wound: Joaquin is an 84-year-old male who presents to the clinic today with complaints of a left lower extremity ulcer, as well as a 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 He has a past medical history significant for CAD, PVD, peripheral neuropathy (Currently following up with neurology), and arthritis. He has a history of angioplasty and stent placement in his right superficial femoral artery and right popliteal artery. He was also previously followed with Dr. Rose for vascular management in which his prior ABIs from 02/2019 showed a right RALPH of 1.07 and a left RALPH of 0.67. He also had vascular studies done in September 2019 from his primary care which showed valvular competence. He has not been able to offload due to loss of balance and ongoing falls. He is with his today. He recently underwent podiatric evaluation by Dr. Hoover who recommended an offloading, nutrition consult, and repeat x-ray. In the recent past, he also completed a course of antibiotics for Staphylococcus aureus infection. He was also treated with antimicrobial collagen dressing, Puraply and recently with Flexion advanced wound healing product formerly [facility]. He did have arterial studies done in 12/2019 which the results are pending but a preliminary shows a right RALPH 0.59 and a left RALPH of 0.45. He has yet to schedule follow-up with Dr. Rose. Progress of Wound: stable, no new concerns at this time - Physical Exam Vital Signs Temp Pulse Resp BP 97.8 F 64 16 149/68 H 01/09/20 14:06 01/09/20 14:06 01/09/20 14:06 01/09/20 14:06 General: Alert, Oriented x3, Cooperative, No apparent distress HEENT: Atraumatic Oral: Moist Mucosa Lungs: Clear to auscultation, Normal air movement Cardiovascular: Regular rate Abdomen: Soft, Non Tender Extremities: No clubbing, No cyanosis, Diminished Peripheral Pulses - Severely diminished dorsal pedis pulses bilaterally, Edema - Bilateral lower extremity edema with chronic venous changes present Skin: Ulcer/ Wound - See nursing documentation, slough and devitalized tissue present, no signs of obvious infection at this time. Wound Measurements and Assessment WC - Nurse 1 - General Ulcer Measurement Start: 12/19/19 15:44 Freq: Status: Active Protocol: Activity Type Activity Date Activity User E-Sign Co-Sign Detail Recorded Client Recorded Date Recorded By Document 01/09/20 13:06 RB [id number] 01/09/20 13:25 RB 01/09/20 13:06 Wound Center Nurse 1 [Ulcer Assessment] 13-right heel ulcer -Combined with other wound No -Current Size (cm) - Length 0.7 -Current Size (cm) - Width 1.4 -Current Size (cm) - Depth 0.2 -Total Square Cm 0.98 -Tunneling No -Undermining/Tunneling No -Circular Undermining No -Exudate Amt Small -Exudate Type Serosanguineous -Wound Margin Thickened -Granulation Amt Medium (34-66%) -Granulation Quality Mazon,Red -Slough/Fibrin Yes -Necrosis Amt Small (1-33%) -Necrotic Tissue Type Adherent Slough -Structure Exposed N/A -Texture (Michelle-wound Skin Appearance) Assessed,Callus -Moisture (Michelle-wound Skin Appearance Dry/Scaly ) -Color (Imchelle-wound Skin Appearance) Assessed -Temperature (Michelle-wound Skin No Abnormality Appearance) (Pt Warm) -Tenderness on Palpation (Michelle-wound No Skin Appearance) -Ulcer Cleansing Wound Cleanser -Foul Odor after Cleansing No -Anesthetic Used 4% Lidocaine Solution 12-left mid moser -Combined with other wound No -Current Size (cm) - Length 1 -Current Size (cm) - Width 1 -Current Size (cm) - Depth 0.1 -Total Square Cm 1 -Tunneling No -Undermining/Tunneling No -Circular Undermining No -Exudate Amt Small -Exudate Type Serosanguineous -Wound Margin Flat & Intact -Granulation Amt Medium (34-66%) -Granulation Quality Mazon -Slough/Fibrin Yes -Necrosis Amt Small (1-33%) -Necrotic Tissue Type Adherent Slough -Structure Exposed N/A -Texture (Michelle-wound Skin Appearance) Assessed -Moisture (Michelle-wound Skin Appearance Dry/Scaly ) -Color (Michelle-wound Skin Appearance) Assessed -Temperature (Michelle-wound Skin No Abnormality Appearance) (Pt Warm) -Tenderness on Palpation (Michelle-wound No Skin Appearance) -Ulcer Cleansing Wound Cleanser -Foul Odor after Cleansing No -Anesthetic Used 4% Lidocaine Solution #11 left superior moser -Combined with other wound No -Current Size (cm) - Length 1 -Current Size (cm) - Width 1.3 -Current Size (cm) - Depth 0.1 -Total Square Cm 1.3 -Tunneling No -Undermining/Tunneling No -Circular Undermining No -Exudate Amt Small -Exudate Type Serosanguineous -Wound Margin Flat & Intact -Granulation Amt Medium (34-66%) -Granulation Quality Mazon -Slough/Fibrin Yes -Necrosis Amt Small (1-33%) -Necrotic Tissue Type Adherent Slough -Structure Exposed N/A -Texture (Michelle-wound Skin Appearance) Assessed -Moisture (Michelle-wound Skin Appearance Dry/Scaly ) -Color (Michelle-wound Skin Appearance) Assessed -Temperature (Michelle-wound Skin No Abnormality Appearance) (Pt Warm) -Tenderness on Palpation (Michelle-wound No Skin Appearance) -Ulcer Cleansing Wound Cleanser -Foul Odor after Cleansing No -Anesthetic Used 4% Lidocaine Solution [Edema Assessment] -Lower Limb Edema Present Yes -Right Calf (cm) 32 -Right Ankle (cm) 20 -Left Calf (cm) 28.5 -Left Ankle (cm) 20.6 WC - Nurse 2 - General Ulcer CM Notes Start: 12/19/19 15:44 Freq: Status: Active Protocol: Activity Type Activity Date Activity User E-Sign Co-Sign Detail Recorded Client Recorded Date Recorded By Document 01/09/20 13:40 MW [id number] 01/09/20 13:49 MW 01/09/20 13:40 Wound Center Nurse 2 [Procedure/Treatment] 13-right heel ulcer -Time 13:41 -Correct Patient Yes -Correct Side, Site, Position Yes -Correct Procedure Yes -Procedure Performed Yes -Type of Procedure Debridement -Clinical Debridement Subcutaneous -Tissue Removed Subcutaneous -Post Debridement (cm) - Length 1.1 -Post Debridement (cm) - Width 1.7 -Post Debridement (cm) - Depth 0.2 -Total Square (Post) (cm) 1.87 -Area of Debridement (cm) - Length 1.1 -Area of Debridement (cm) - Width 1.7 -Total Square (Area) (cm) 1.87 -Tunneling No -Undermining/Tunneling No -Circular Undermining No -Wound/Ulcer Outcome Not Healed -Ulcer Cleansing Rinsed/ Irrigated with Saline -Foul Odor after Cleansing No -Bioengineered Tissue No -Bleeding Controlled with Pressure -Type of Offloading Total Contact Cast (TCC) - Left ($) -Treatment Response Procedure Tolerated Well -Debridement - Subq, 1st 20sq cm Yes 12-left mid moser -Time 13:41 -Correct Patient Yes -Correct Side, Site, Position Yes -Correct Procedure Yes -Procedure Performed Yes -Type of Procedure Debridement -Clinical Debridement Subcutaneous -Tissue Removed Subcutaneous -Post Debridement (cm) - Length 0.6 -Post Debridement (cm) - Width 0.5 -Post Debridement (cm) - Depth 0.1 -Total Square (Post) (cm) 0.30 -Area of Debridement (cm) - Length 0.6 -Area of Debridement (cm) - Width 0.5 -Total Square (Area) (cm) 0.30 -Tunneling No -Undermining/Tunneling No -Circular Undermining No -Wound/Ulcer Outcome Not Healed -Ulcer Cleansing Rinsed/ Irrigated with Saline -Foul Odor after Cleansing No -Bioengineered Tissue No -Bleeding Controlled with Pressure -Offloading No -Treatment Response Procedure Tolerated Well -Debridement - Subq, 1st 20sq cm No #11 left superior moser -Time 13:42 -Correct Patient Yes -Correct Side, Site, Position Yes -Correct Procedure Yes -Procedure Performed Yes -Type of Procedure Debridement -Clinical Debridement Subcutaneous -Tissue Removed Subcutaneous -Post Debridement (cm) - Length 1.0 -Post Debridement (cm) - Width 1.0 -Post Debridement (cm) - Depth 0.1 -Total Square (Post) (cm) 1.00 -Area of Debridement (cm) - Length 1.0 -Area of Debridement (cm) - Width 1.0 -Total Square (Area) (cm) 1.00 -Tunneling No -Undermining/Tunneling No -Circular Undermining No -Wound/Ulcer Outcome Not Healed -Ulcer Cleansing Rinsed/ Irrigated with Saline -Foul Odor after Cleansing No -Bioengineered Tissue No -Bleeding Controlled with Pressure -Offloading No -Treatment Response Procedure Tolerated Well -Debridement - Subq, 1st 20sq cm No [See Physician Procedure note for Specifics] Pain Scale: 0-10 Numeric [Pain] -Is Patient Pain Free? Yes WC - Nurse 3 - General Ulcer D/C NN Start: 12/19/19 15:44 Freq: Status: Active Protocol: Activity Type Activity Date Activity User E-Sign Co-Sign Detail Recorded Client Recorded Date Recorded By Document 01/09/20 14:06 [facility] [id number] 01/09/20 14:08 [facility] 01/09/20 14:06 Wound Care Nurse 3 [Wound Dressing] 13-right heel ulcer -Ulcer Cleansing Rinsed/ Irrigated with Saline -Foul Odor after Cleansing No -Primary Dressing Applied Mepilex Border, Silvercel -Mepilex Border 1 -Silvercel 1 12-left mid moser -Ulcer Cleansing Rinsed/ Irrigated with Saline -Foul Odor after Cleansing No -Primary Dressing Applied Silvercel -Primary Dressing Covered/Secured Dry Gauze & with Roll Gauze, Secured with Tape -Silvercel 0 #11 left superior moser -Ulcer Cleansing Rinsed/ Irrigated with Saline -Foul Odor after Cleansing No -Primary Dressing Applied Silvercel -Primary Dressing Covered/Secured Dry Gauze & with Roll Gauze, Secured with Tape -Silvercel 0 [Compression Applied] Right -Tubular Bandage Single Layer -Size of Tubigrip Used Size D -Size D ($) 1 Left -Tubular Bandage Single Layer -Size of Tubigrip Used Size D -Size D ($) 1 [Post Procedure Tolerated] -Treatment Response Procedure Tolerated Well Vital Signs [Temperature Protocol: VS] -Temperature (97.8 F-99.1 F) 97.8 F -Temperature Source Temporal [Pulse] -Pulse Rate (60-100) 64 -Pulse Location Monitor [Respirations] -Respiratory Rate (12-18) 16 -Respiratory rate source Observation -Oxygen Delivery Method Room Air [Blood Pressure] -Blood Pressure (90/60-120/80) 149/68 H -Blood Pressure Mean (mm Hg) 95 -Source Monitor -Position Supine -Blood Pressure Location Right Forearm Pain Scale: 0-10 Numeric [Pain] -Is Patient Pain Free? Yes WC - Visit Discharge [Visit Discharge Information] -Discharge Condition Stable -Ambulatory Status Ambulatory, Walker -Transportation Private Auto -Accompanied by [Facility Notification] -Facility Type Home Health Neurological: Neuro grossly intact Psych/Mental Status: Normal Affect, Appropriate, Alert and oriented to time, place, person, mood and affect Debridement Note Post-Debridement Measurements/Treatment WC - Nurse 2 - General Ulcer CM Notes Start: 12/19/19 15:44 Freq: Status: Active Protocol: Activity Type Activity Date Activity User E-Sign Co-Sign Detail Recorded Client Recorded Date Recorded By Document 12/19/19 16:09 MW [id number] 12/19/19 16:17 MW Document 12/26/19 13:42 MW [id number] 12/26/19 13:51 MW Document 01/01/20 17:08 PL [id number] 01/01/20 17:13 PL Document 01/09/20 13:40 MW [id number] 01/09/20 13:49 MW 12/19/19 12/26/19 01/01/20 16:09 13:42 17:08 Wound Center Nurse 2 15, L upper arm cluster -Time 16:10 -Correct Patient Yes -Correct Side, Site, Position Yes -Correct Procedure Yes -Procedure Performed No -Wound/Ulcer Outcome Healed- Epithelialized 14. R moser -Time 16:10 13:48 -Correct Patient Yes Yes -Correct Side, Site, Position Yes -Correct Procedure Yes -Procedure Performed Yes No -Type of Procedure Debridement -Clinical Debridement Subcutaneous -Tissue Removed Subcutaneous -Post Debridement (cm) - Length 1.0 0 -Post Debridement (cm) - Width 0.5 0 -Post Debridement (cm) - Depth 0.1 0 -Total Square (Post) (cm) 0.50 0 -Area of Debridement (cm) - Length 1.0 -Area of Debridement (cm) - Width 0.5 -Total Square (Area) (cm) 0.50 -Tunneling No -Undermining/Tunneling No -Circular Undermining No -Wound/Ulcer Outcome Not Healed Healed- Epithelialized -Ulcer Cleansing Rinsed/ Irrigated with Saline -Foul Odor after Cleansing No -Bioengineered Tissue No -Bleeding Controlled with Pressure -Offloading No -Treatment Response Procedure Tolerated Well -Debridement - Subq, 1st 20sq cm Yes 13-right heel ulcer -Time 16:10 13:50 16:05 -Correct Patient Yes Yes Yes -Correct Side, Site, Position Yes Yes Yes -Correct Procedure Yes Yes Yes -Procedure Performed Yes Yes Yes -Type of Procedure Debridement Debridement Debridement -Clinical Debridement Subcutaneous Subcutaneous Subcutaneous -Tissue Removed Subcutaneous Subcutaneous Subcutaneous -Post Debridement (cm) - Length 3.0 2.5 2.2 -Post Debridement (cm) - Width 2.0 2.0 2 -Post Debridement (cm) - Depth 0.1 0.2 0.1 -Total Square (Post) (cm) 6.00 5.00 4.4 -Area of Debridement (cm) - Length 3.0 2.5 2.2 -Area of Debridement (cm) - Width 2.0 2.0 2 -Total Square (Area) (cm) 6.00 5.00 4.4 -Tunneling No No -Undermining/Tunneling No No -Circular Undermining No No -Wound/Ulcer Outcome Not Healed Not Healed Not Healed -Ulcer Cleansing Rinsed/ Rinsed/ Irrigated with Irrigated with Saline Saline -Foul Odor after Cleansing No No -Bioengineered Tissue No No Yes -Type of Bioengineered Tissue Portia Disc -Expiration Date 06/02/24 -Product Lot Number [id number] -Percent Used 100 -Bleeding Controlled with Pressure Pressure Pressure -Offloading No No -Type of Offloading -Treatment Response Procedure Procedure Tolerated Well Tolerated Well -Debridement - Subq, 1st 20sq cm No Yes No -Apply Skin Sub - 1st 25 sq cm - Feet 1 -NuShield 16mm Disc 2 12-left mid moser -Time 16:10 13:50 16:05 -Correct Patient Yes Yes Yes -Correct Side, Site, Position Yes Yes Yes -Correct Procedure Yes Yes Yes -Procedure Performed Yes Yes Yes -Type of Procedure Debridement Debridement Debridement -Clinical Debridement Subcutaneous Subcutaneous Subcutaneous -Tissue Removed Subcutaneous Subcutaneous Subcutaneous -Post Debridement (cm) - Length 0.7 0.7 0.3 -Post Debridement (cm) - Width 0.5 0.5 0.3 -Post Debridement (cm) - Depth 0.1 0.1 0.3 -Total Square (Post) (cm) 0.35 0.35 0.09 -Area of Debridement (cm) - Length 0.7 0.7 0.3 -Area of Debridement (cm) - Width 0.5 0.5 0.3 -Total Square (Area) (cm) 0.35 0.35 0.09 -Tunneling No No No -Undermining/Tunneling No No No -Circular Undermining No No No -Wound/Ulcer Outcome Not Healed Not Healed Not Healed -Ulcer Cleansing Rinsed/ Rinsed/ Rinsed/ Irrigated with Irrigated with Irrigated with Saline Saline Saline -Foul Odor after Cleansing No No No -Bioengineered Tissue No No No -Bleeding Controlled with Pressure Pressure -Offloading No No -Treatment Response Procedure Procedure Tolerated Well Tolerated Well -Debridement - Subq, 1st 20sq cm No No Yes #11 left superior moser -Time 16:11 13:51 16:05 -Correct Patient Yes Yes Yes -Correct Side, Site, Position Yes Yes Yes -Correct Procedure Yes Yes Yes -Procedure Performed Yes Yes Yes -Type of Procedure Debridement Debridement Debridement -Clinical Debridement Subcutaneous Subcutaneous Subcutaneous -Tissue Removed Subcutaneous Subcutaneous Subcutaneous -Post Debridement (cm) - Length 1.5 1.0 1 -Post Debridement (cm) - Width 1.3 1.0 0.7 -Post Debridement (cm) - Depth 0.1 0.1 0.1 -Total Square (Post) (cm) 1.95 1.00 0.7 -Area of Debridement (cm) - Length 1.5 1.0 1 -Area of Debridement (cm) - Width 1.3 1.0 0.7 -Total Square (Area) (cm) 1.95 1.00 0.7 -Tunneling No No No -Undermining/Tunneling No No No -Circular Undermining No No No -Wound/Ulcer Outcome Not Healed Not Healed Not Healed -Ulcer Cleansing Rinsed/ Rinsed/ Rinsed/ Irrigated with Irrigated with Irrigated with Saline Saline Saline -Foul Odor after Cleansing No No No -Bioengineered Tissue No No No -Bleeding Controlled with Pressure Pressure -Offloading No No -Treatment Response Procedure Tolerated Well -Debridement - Subq, 20sq cm No No No Pain Scale: 0-10 Numeric Is Patient Pain Free? Yes Yes Yes 01/09/20 13:40 Wound Center Nurse 2 15, L upper arm cluster -Time -Correct Patient -Correct Side, Site, Position -Correct Procedure -Procedure Performed -Wound/Ulcer Outcome 14. R moser -Time -Correct Patient -Correct Side, Site, Position -Correct Procedure -Procedure Performed -Type of Procedure -Clinical Debridement -Tissue Removed -Post Debridement (cm) - Length -Post Debridement (cm) - Width -Post Debridement (cm) - Depth -Total Square (Post) (cm) -Area of Debridement (cm) - Length -Area of Debridement (cm) - Width -Total Square (Area) (cm) -Tunneling -Undermining/Tunneling -Circular Undermining -Wound/Ulcer Outcome -Ulcer Cleansing -Foul Odor after Cleansing -Bioengineered Tissue -Bleeding Controlled with -Offloading -Treatment Response -Debridement - Subq, 1st 20sq cm 13-right heel ulcer -Time 13:41 -Correct Patient Yes -Correct Side, Site, Position Yes -Correct Procedure Yes -Procedure Performed Yes -Type of Procedure Debridement -Clinical Debridement Subcutaneous -Tissue Removed Subcutaneous -Post Debridement (cm) - Length 1.1 -Post Debridement (cm) - Width 1.7 -Post Debridement (cm) - Depth 0.2 -Total Square (Post) (cm) 1.87 -Area of Debridement (cm) - Length 1.1 -Area of Debridement (cm) - Width 1.7 -Total Square (Area) (cm) 1.87 -Tunneling No -Undermining/Tunneling No -Circular Undermining No -Wound/Ulcer Outcome Not Healed -Ulcer Cleansing Rinsed/ Irrigated with Saline -Foul Odor after Cleansing No -Bioengineered Tissue No -Type of Bioengineered Tissue -Expiration Date -Product Lot Number -Percent Used -Bleeding Controlled with Pressure -Offloading -Type of Offloading Total Contact Cast (TCC) - Left ($) -Treatment Response Procedure Tolerated Well -Debridement - Subq, 1st 20sq cm Yes -Apply Skin Sub - 1st 25 sq cm - Feet -NuShield 16mm Disc 12-left mid moser -Time 13:41 -Correct Patient Yes -Correct Side, Site, Position Yes -Correct Procedure Yes -Procedure Performed Yes -Type of Procedure Debridement -Clinical Debridement Subcutaneous -Tissue Removed Subcutaneous -Post Debridement (cm) - Length 0.6 -Post Debridement (cm) - Width 0.5 -Post Debridement (cm) - Depth 0.1 -Total Square (Post) (cm) 0.30 -Area of Debridement (cm) - Length 0.6 -Area of Debridement (cm) - Width 0.5 -Total Square (Area) (cm) 0.30 -Tunneling No -Undermining/Tunneling No -Circular Undermining No -Wound/Ulcer Outcome Not Healed -Ulcer Cleansing Rinsed/ Irrigated with Saline -Foul Odor after Cleansing No -Bioengineered Tissue No -Bleeding Controlled with Pressure -Offloading No -Treatment Response Procedure Tolerated Well -Debridement - Subq, 1st 20sq cm No #11 left superior moser -Time 13:42 -Correct Patient Yes -Correct Side, Site, Position Yes -Correct Procedure Yes -Procedure Performed Yes -Type of Procedure Debridement -Clinical Debridement Subcutaneous -Tissue Removed Subcutaneous -Post Debridement (cm) - Length 1.0 -Post Debridement (cm) - Width 1.0 -Post Debridement (cm) - Depth 0.1 -Total Square (Post) (cm) 1.00 -Area of Debridement (cm) - Length 1.0 -Area of Debridement (cm) - Width 1.0 -Total Square (Area) (cm) 1.00 -Tunneling No -Undermining/Tunneling No -Circular Undermining No -Wound/Ulcer Outcome Not Healed -Ulcer Cleansing Rinsed/ Irrigated with Saline -Foul Odor after Cleansing No -Bioengineered Tissue No -Bleeding Controlled with Pressure -Offloading No -Treatment Response Procedure Tolerated Well -Debridement - Subq, 1st 20sq cm No Pain Scale: 0-10 Numeric Is Patient Pain Free? Yes WC - Nurse 3 - General Ulcer D/C NN Start: 12/19/19 15:44 Freq: Status: Active Protocol: Activity Type Activity Date Activity User E-Sign Co-Sign Detail Recorded Client Recorded Date Recorded By Document 12/19/19 16:22 [facility] [id number] 12/19/19 16:24 [facility] Document 12/26/19 14:14 MT [id number] 12/26/19 14:15 MT Document 01/01/20 16:41 RB [id number] 01/01/20 16:43 RB Document 01/09/20 14:06 [facility] [id number] 01/09/20 14:08 [facility] 12/19/19 12/26/19 01/01/20 16:22 14:14 16:41 Wound Care Nurse 3 14. R moser -Ulcer Cleansing Rinsed/ Irrigated with Saline -Foul Odor after Cleansing No -Primary Dressing Applied Silvercel -Primary Dressing Covered/Secured with Dry Gauze & Roll Gauze, Secured with Tape -Silvercel 1 13-right heel ulcer -Ulcer Cleansing Rinsed/ Irrigated with Saline -Foul Odor after Cleansing No -Primary Dressing Applied Silvercel Silvercel -Other Dressing abd nurses hat -Primary Dressing Covered/Secured with Dry Gauze & Dry Gauze,Dry Roll Gauze, Gauze & Roll Secured with Gauze,Secured Tape with Tape -Mepilex Border -Silvercel 0 1 12-left mid moser -Ulcer Cleansing Rinsed/ Irrigated with Saline -Foul Odor after Cleansing No -Primary Dressing Applied Silvercel -Primary Dressing Covered/Secured with Dry Gauze & Dry Gauze,Dry Roll Gauze, Gauze & Roll Secured with Gauze,Secured Tape with Tape -Silvercel 0 #11 left superior moser -Ulcer Cleansing Rinsed/ Irrigated with Saline -Foul Odor after Cleansing No -Primary Dressing Applied Silvercel -Primary Dressing Covered/Secured with Dry Gauze & Dry Gauze,Dry Roll Gauze, Gauze & Roll Secured with Gauze,Secured Tape with Tape -Silvercel 0 Right -Tubular Bandage -Size of Tubigrip Used Size D -Size D ($) -Other applied pts own single layer tubis Left -Tubular Bandage -Size of Tubigrip Used Size D -Size D ($) -Other applied pts own single layer tubis Treatment Response Procedure Tolerated Well Pain Scale: 0-10 Numeric Vital Signs Is Patient Pain Free? Yes Yes Temperature (97.8 F-99.1 F) Temperature Source Pulse Rate (60-100) Pulse Location Respiratory Rate (12-18) Respiratory rate source Oxygen Delivery Method Blood Pressure (90/60-120/80) Blood Pressure Mean (mm Hg) Source Position Blood Pressure Location WC - Visit Discharge Discharge Condition Stable Stable Ambulatory Status Ambulatory Walker Ambulatory, Walker Transportation Private Auto Private Auto Private Auto Accompanied by Medication Reconcilliation completed & No No provided to patient/care provider Clinical Summary of Care Provided Yes Yes Facility Type Home Health 01/09/20 14:06 Wound Care Nurse 3 14. R moser -Ulcer Cleansing -Foul Odor after Cleansing -Primary Dressing Applied -Primary Dressing Covered/Secured with -Silvercel 13-right heel ulcer -Ulcer Cleansing Rinsed/ Irrigated with Saline -Foul Odor after Cleansing No -Primary Dressing Applied Mepilex Border, Silvercel -Other Dressing -Primary Dressing Covered/Secured with -Mepilex Border 1 -Silvercel 1 12-left mid moser -Ulcer Cleansing Rinsed/ Irrigated with Saline -Foul Odor after Cleansing No -Primary Dressing Applied Silvercel -Primary Dressing Covered/Secured with Dry Gauze & Roll Gauze, Secured with Tape -Silvercel 0 #11 left superior moser -Ulcer Cleansing Rinsed/ Irrigated with Saline -Foul Odor after Cleansing No -Primary Dressing Applied Silvercel -Primary Dressing Covered/Secured with Dry Gauze & Roll Gauze, Secured with Tape -Silvercel 0 Right -Tubular Bandage Single Layer -Size of Tubigrip Used Size D -Size D ($) 1 -Other Left -Tubular Bandage Single Layer -Size of Tubigrip Used Size D -Size D ($) 1 -Other Treatment Response Procedure Tolerated Well Pain Scale: 0-10 Numeric Vital Signs Is Patient Pain Free? Yes Temperature (97.8 F-99.1 F) 97.8 F Temperature Source Temporal Pulse Rate (60-100) 64 Pulse Location Monitor Respiratory Rate (12-18) 16 Respiratory rate source Observation Oxygen Delivery Method Room Air Blood Pressure (90/60-120/80) 149/68 H Blood Pressure Mean (mm Hg) 95 Source Monitor Position Supine Blood Pressure Location Right Forearm WC - Visit Discharge Discharge Condition Stable Ambulatory Status Ambulatory, Walker Transportation Private Auto Accompanied by Medication Reconcilliation completed & provided to patient/care provider Clinical Summary of Care Provided Facility Type Home Health Wound debrided: Right heel ulcer and left lower extremity ulcers Laterality: Left Type of Debridement: Excisional debridement Anesthesia Used: 5% Lidocaine Gel Depth: Down to and including healthy tissue, in the subcutaneous layer Percentage of wound debrided: 100 Instrument Used: 5mm curette Tissue Removed: Slough and devitalized tissue Severity: Fat Layer Exposed Amount of bleeding with debridement: Mild Bleeding Controlled with: Pressure Patient tolerated procedure well Assessment/Plan Active Problems (Last Reviewed 11/21/19 @ 10:52 by Holly Calzada) Neuropathy (Acute) Chronic pain of right heel (Chronic) Non-healing ulcer of right foot with fat layer exposed (Acute) heel Nonhealing ulcer of left lower extremity with fat layer exposed (Acute) Fall (Acute) Skin tear of left upper arm without complication (Acute) Wound of right lower extremity (Acute) Debility (Acute) Rectal prolapse (Acute) Peripheral arterial occlusive disease (Chronic) SFA PTCA/Stent 08/2012; Stent to distal RSFA to popliteal, Stent-Prox RSFA 10/23/13 Assessment: Same as above Plan: The patient was seen and examined at the wound center today and was updated on the plan of care. A subcutaneous debridement was performed today. The patient tolerated the procedure well. For wound care he will apply moistened silver cell to all ulcers and change every other day. He will continue with home health care. His care plan was changed to a complex care plan. I recommend additional follow up with vascular surgeon, Dr. Rose to confirm if his arterial intervention has been optimized or if there are any additional vascular intervention opportunities. To continue with double-layer Tubigrip's for compression. He was reassured no local signs of infection are noted today and I do not recommend additional antibiotics. Baseline bloodwork was reviewed in [facility] from July and will repeat blood work at next visit. foot xray ordered to evaluate for any potential underlying osseous involvmenet given the chronicity of his ulcer. Patient educated on the importance of diet on wound healing and instructed to reduce processed foods, strive for eating many servings of whole fruits and vegetables daily, increase protein and vitamin C intake. A yardage control operator referral was provided and the benefits and indications were reviewed. This patient verbalized understanding. I also recommend improved offloading. I recommended offloading donut pillow to take pressure off of his heel while lying in bed. His elects to obtain this off of [place] [address]. I also recommend reducing direct pressure with standing with the use of an assistive device which she already has. The surgical shoe with dual layer Plastizote with offloading pocket was fabricated prior by podiatry. Ideally a cam walker with offloading pockets or total contact cast would offload better however with his fall risk this is not recommended. He understands this is going to limit his healing potential. Due to the patient's debility and difficulty caring for himself and having his dressings changed, do also believe that patient would benefit from home health care and nursing home care (at which time patient still refuses). He will follow up at the wound healing center next week. 111xxx-113xx: [id number] Luz subq tissue 20 sq cm/<
== END 2020-01-15 23:59 ==
LOC: WC 12:30
PROVIDERS: PCP Family Medicine; Referring Provider Podiatrist Foot & Ankle Surgery; Visit Provider Nurse Practitioner Family
DX: I73.9 Peripheral vascular disease, unspecified (principal); L97.512 Non-pressure chronic ulcer of other part of right foot with fat layer exposed; S41.112A Laceration without foreign body of left upper arm, initial encounter; X58.XXXA Exposure to other specified factors, initial encounter; I10 Essential (primary) hypertension; L97.412 Non-pressure chronic ulcer of right heel and midfoot with fat layer exposed; G62.9 Polyneuropathy, unspecified; M19.90 Unspecified osteoarthritis, unspecified site; R29.6 Repeated falls; L97.822 Non-pressure chronic ulcer of other part of left lower leg with fat layer exposed
CPT/HCPCS: 11042; 15275; 29445; 87070; 87075; 87077; 87186; 87205; Q4160

== ENCOUNTER → 2020-01-17 12:40 | Outpatient (CLI) | payer MEDICARE, OTHER, SELFPAY ==
[2020-01-16 13:34] VITALS: BMI 21.2
--- NOTE | 2020-01-17 12:49 | RAD_ITS ---
STUDY: X-RAY - RIGHT KNEE REASON FOR EXAM: Male, 84 years old. FALL, ABRASIONS TO KNEE TECHNIQUE: 3 view(s) of the knee. COMPARISON: None. FINDINGS: Normal visualized distal femur. Normal visualized proximal tibia and fibula. Normal proximal tibiofibular articulation. There is mild degenerative arthrosis of the medial femorotibial compartment. Normal lateral femorotibial compartment. There is moderate degenerative arthrosis of the patellofemoral articulation. There is a soft tissue prominence in the suprapatellar region suggesting a small volume joint effusion. There are atherosclerotic calcifications. RAD/Knee 3 Views IMPRESSION: Patellofemoral dominant joint arthrosis. Small joint effusion. Electronically Signed: Darin Parra MD ([place]) at 12:15 EDT , Service support ,
--- NOTE | 2020-01-17 12:49 | RAD_ITS ---
STUDY: X-RAY - PELVIS AND RIGHT HIP REASON FOR EXAM: Male, 84 years old. Fall. Lateral hip pain. TECHNIQUE: 3 views of the pelvis and hip. COMPARISON: None. FINDINGS: There is a non-specific bowel gas pattern. Normal visualized soft tissue structures. There are atherosclerotic vascular calcifications. There is evidence of a stent in the right superficial femoral artery. There are multiple metallic coils in the right lower pelvis and groin, suggesting prior hernia repair. There is surgical fusion of the lower lumbar spine. There is narrowing with cortical sclerosis and osteophyte formation of the sacroiliac joint consistent with degenerative osteoarthritic changes. Normal visualized iliac wings and sacrum. Normal bilateral superior and inferior pubic rami. Normal pubic symphysis. Normal bilateral ischial tuberosities. Normal visualized right femoral head. Normal right acetabulum. Normal right hip joint. RAD/HIP, UNI W/ Pelvis 2-3 Views IMPRESSION: 1. No fracture or dislocation. The right hip is grossly normal. 2. Degenerative changes of the sacroiliac joints. 3. Surgical changes of the lumbar spine. 4. Evidence of hernia repair. 5. Vascular calcifications with right SFA stent. Electronically Signed: Nico Barnes DO at 16:58 EDT Tel [phone], Service support ,
== END ==
PROVIDERS: PCP Family Medicine; Referring Provider Family Medicine; Visit Provider Family Medicine
DX: M25.551 Pain in right hip (principal); M25.561 Pain in right knee
CPT/HCPCS: 73502; 73562

== ENCOUNTER 2020-01-30 13:30 | Outpatient (RCR) | payer MEDICARE, OTHER, SELFPAY ==
[2020-01-16 00:34] VITALS: BP 149/68; PULSE 64; RESP 16; TEMP 36.6
[2020-01-16 13:34] VITALS: BP 130/51; PULSE 58; RESP 18; TEMP 36.4; BMI 21.2
[2020-01-16 14:33] VITALS: BP 149/63; PULSE 73; RESP 18; TEMP 36.3
--- NOTE | 2020-01-16 15:40 | RAD_ITS ---
STUDY: X-RAY - RIGHT FOOT CLINICAL: Male, 84 years old. HEEL ULCER TECHNIQUE: 4 view(s) of the foot. COMPARISON: 10/06/2017 FINDINGS: Normal talus, calcaneus, and tarsal bones. Normal visualized subtalar, talonavicular, calcaneocuboid, tarsal and tarsometatarsal articulations. Normal metatarsi. Normal metatarsophalangeal joint of the great toe. Normal tibial and fibular sesamoid bones. Normal interphalangeal joint of the great toe. Normal phalanges of the great toe. Normal second through fifth metatarsophalangeal joints. Normal interphalangeal joints and phalanges of the lesser toes. Soft tissue defect of the plantar aspect of the heel consistent with an ulcer. RAD/Foot min 3 Views IMPRESSION: Healed ulcer but no radiographic evidence of osteomyelitis. Electronically Signed: Jaylen Morales MD at 9:20 EDT Tel , Service support ,
[2020-01-16 16:33] LABS: Absolute Lymphocyte Count 0.74 X10^3/uL (0.83-4.51); Absolute Neutrophil Count 4.8 X10^3/uL (2.0-7.7); Basophil# 0.03 X10^3/uL; Basophil% 0.5 % (0-1); Eosinophil# 0.14 X10^3/uL; Eosinophils% 2.1 % (0-5); Hematocrit 36.6 % (40-54); Hemoglobin 11.4 g/dL (13.0-16.5); Lymphocyte # 0.74 X10^3/ul (4.0); Lymphocyte % 11.3 % (19-41); Mean Corp Hgb Conc 31.1 g/dL (32-36); Mean Corpuscular Hgb 31.5 pg (27.0-32.0); Mean Corpuscular Volume 101.1 fL (80-94); Mean Platelet Vol. 9.1 fl (6.2-12.0); Monocyte% 12.2 % (0-10); NRBC Flagged by Analyzer 0 % (0-5); Neutrophil # 4.83 X10^3/uL (2.7-7.7); Neutrophil % 73.6 % (47-70); Platelet Count 346 K/mm3 (150-450); RBC Distribution Width CV 15.3 % (11.6-14.6); RBC Distribution Width SD 57.6 fl (35.1-43.9); Red Blood Count 3.62 M/mm3 (4.6-6.2); White Blood Count 6.6 K/mm3 (4.4-11.0)
--- NOTE | 2020-01-16 16:48 | PN.PCM_ITS ---
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 Status: Acute Current Visit: Yes Code(s): L97.922 - Non-pressure chronic ulcer of unspecified part of left lower leg with fat layer exposed (2) Non-healing ulcer of right foot with fat layer exposed Status: Acute Current Visit: Yes Code(s): L97.512 - Non-pressure chronic ulcer of other part of right foot with fat layer exposed Comment: heel (3) PAD (peripheral artery disease) Status: Acute Current Visit: Yes Code(s): I73.9 - Peripheral vascular disease, unspecified (4) Debility Status: Acute Current Visit: No Code(s): R53.81 - Other malaise (5) Delayed wound healing Status: Acute Current Visit: No Code(s): T14.8XXD - Other injury of unspecified body region, subsequent encounter (6) Fall Status: Acute Current Visit: No Code(s): W19.XXXA - Unspecified fall, initial encounter (7) Neuropathy Status: Acute Current Visit: No Code(s): G62.9 - Polyneuropathy, unspecified (8) Rectal prolapse Status: Acute Current Visit: No Code(s): K62.3 - Rectal prolapse (9) Chronic pain of right heel Status: Chronic Current Visit: No Code(s): M79.671 - Pain in right foot; G89.29 - Other chronic pain (10) Debility Status: Chronic Current Visit: No Code(s): R53.81 - Other malaise (11) Essential (primary) hypertension Status: Chronic Current Visit: No Code(s): I10 - Essential (primary) hypertension Type of Wound Date of Service: 01/16/20 Chief Complaint: Chronic right heel ulceration, left lower leg ulcer History of Wound: Joaquin is an 84-year-old male who presents to the clinic today with complaints of a left lower extremity ulcer, as well as a 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 He has a past medical history significant for CAD, PVD, peripheral neuropathy (Currently following up with neurology), and arthritis. He has a history of angioplasty and stent placement in his right superficial femoral artery and right popliteal artery. He was also previously followed with Dr. Rose for vascular management in which his prior ABIs from 02/2019 showed a right RALPH of 1.07 and a left RALPH of 0.67. He also had vascular studies done in September 2019 from his primary care which showed valvular competence. He has not been able to offload due to loss of balance and ongoing falls. He is with his today. He recently underwent podiatric evaluation by Dr. Hoover who recommended an offloading, nutrition consult, and repeat x-ray. In the recent past, he also completed a course of antibiotics for Staphylococcus aureus infection. He was also treated with antimicrobial collagen dressing, Puraply and recently with amnio advanced wound healing product [facility]. He did have arterial studies done in 12/2019 which the results are pending but a preliminary shows a right RALPH 0.59 and a left RALPH of 0.45. He has yet to schedule follow-up with Dr. Rose. Progress of Wound: stable, no new concerns at this time - Physical Exam Vital Signs Temp Pulse Resp BP 97.4 F L 73 18 149/63 H 01/16/20 14:33 01/16/20 14:33 01/16/20 14:33 01/16/20 14:33 General: Alert, Oriented x3, Cooperative, No apparent distress HEENT: Atraumatic Oral: Moist Mucosa Lungs: Clear to auscultation, Normal air movement Cardiovascular: Regular rate, Regular Rhythm, Normal S1, Normal S2 Abdomen: Soft, Non Tender Extremities: No clubbing, No cyanosis, Edema - Normalized bilateral lower extremity edema, - - Severely diminished peripheral pulses bilateral dorsal pedis, barely palpable Skin: Ulcer/ Wound - See nursing documentation, slough and devitalized tissue present Wound Measurements and Assessment WC - Nurse 1 - General Ulcer Measurement Start: 01/16/20 13:34 Freq: Status: Active Protocol: Activity Type Activity Date Activity User E-Sign Co-Sign Detail Recorded Client Recorded Date Recorded By Document 01/16/20 13:34 RB [id number] 01/16/20 13:48 RB 01/16/20 13:34 Wound Center Nurse 1 [Ulcer Assessment] 13-right heel ulcer -Combined with other wound No -Current Size (cm) - Length 0.6 -Current Size (cm) - Width 1.5 -Current Size (cm) - Depth 0.2 -Total Square Cm 0.90 -Tunneling No -Undermining/Tunneling No -Circular Undermining No -Exudate Amt Small -Exudate Type Serosanguineous -Wound Margin Flat & Intact -Granulation Amt Medium (34-66%) -Granulation Quality [address] -Slough/Fibrin Yes -Necrosis Amt Medium (34-66%) -Necrotic Tissue Type Adherent Slough -Structure Exposed N/A -Texture (Michelle-wound Skin Appearance) Assessed, Friable -Moisture (Michelle-wound Skin Appearance Assessed,Dry/ ) Scaly -Color (Michelle-wound Skin Appearance) Erythema -Temperature (Michelle-wound Skin No Abnormality Appearance) (Pt Warm) -Tenderness on Palpation (Michelle-wound No Skin Appearance) -Ulcer Cleansing Wound Cleanser -Foul Odor after Cleansing No -Anesthetic Used 4% Lidocaine Solution 12-left mid moser -Combined with other wound No -Current Size (cm) - Length 2 -Current Size (cm) - Width 0.6 -Current Size (cm) - Depth 0.1 -Total Square Cm 1.2 -Tunneling No -Undermining/Tunneling No -Circular Undermining No -Exudate Amt Small -Exudate Type Serosanguineous -Wound Margin Flat & Intact -Granulation Amt Medium (34-66%) -Granulation Quality [address],Red -Slough/Fibrin Yes -Necrosis Amt Small (1-33%) -Necrotic Tissue Type Adherent Slough -Structure Exposed N/A -Texture (Michelle-wound Skin Appearance) Assessed -Moisture (Michelle-wound Skin Appearance Assessed,Dry/ ) Scaly -Color (Michelle-wound Skin Appearance) Assessed -Temperature (Michelle-wound Skin No Abnormality Appearance) (Pt Warm) -Tenderness on Palpation (Michelle-wound No Skin Appearance) -Ulcer Cleansing Wound Cleanser -Foul Odor after Cleansing No -Anesthetic Used 4% Lidocaine Solution #11 left superior moser -Combined with other wound No -Current Size (cm) - Length 1 -Current Size (cm) - Width 1 -Current Size (cm) - Depth 0.1 -Total Square Cm 1 -Tunneling No -Undermining/Tunneling No -Circular Undermining No -Exudate Amt Small -Exudate Type Serosanguineous -Wound Margin Flat & Intact -Granulation Amt Medium (34-66%) -Granulation Quality [address] -Slough/Fibrin Yes -Necrosis Amt Small (1-33%) -Necrotic Tissue Type Adherent Slough -Structure Exposed N/A -Texture (Michelle-wound Skin Appearance) Assessed -Moisture (Michelle-wound Skin Appearance Dry/Scaly ) -Color (Michelle-wound Skin Appearance) Assessed -Temperature (Michelle-wound Skin No Abnormality Appearance) (Pt Warm) -Tenderness on Palpation (Michelle-wound No Skin Appearance) -Ulcer Cleansing Wound Cleanser -Foul Odor after Cleansing No -Anesthetic Used 4% Lidocaine Solution [Edema Assessment] -Lower Limb Edema Present Yes -Right Calf (cm) 32 -Right Ankle (cm) 20 -Left Calf (cm) 28.5 -Left Ankle (cm) 20.2 WC - Nurse 2 - General Ulcer CM Notes Start: 01/16/20 13:34 Freq: Status: Active Protocol: Activity Type Activity Date Activity User E-Sign Co-Sign Detail Recorded Client Recorded Date Recorded By Document 01/16/20 14:13 MW [id number] 01/16/20 14:29 MW 01/16/20 14:13 Wound Center Nurse 2 [Procedure/Treatment] 13-right heel ulcer -Time 14:18 -Correct Patient Yes -Correct Side, Site, Position Yes -Correct Procedure Yes -Procedure Performed Yes -Type of Procedure Debridement -Clinical Debridement Subcutaneous -Tissue Removed Subcutaneous -Post Debridement (cm) - Length 1.3 -Post Debridement (cm) - Width 2.0 -Post Debridement (cm) - Depth 0.2 -Total Square (Post) (cm) 2.60 -Area of Debridement (cm) - Length 1.3 -Area of Debridement (cm) - Width 2.0 -Total Square (Area) (cm) 2.60 -Tunneling No -Undermining/Tunneling No -Circular Undermining No -Wound/Ulcer Outcome Not Healed -Ulcer Cleansing Rinsed/ Irrigated with Saline -Foul Odor after Cleansing No -Bioengineered Tissue No -Bleeding Controlled with Pressure -Offloading No -Treatment Response Procedure Tolerated Well -Debridement - Subq, 1st 20sq cm Yes 12-left mid moser -Time 14:20 -Correct Patient Yes -Correct Side, Site, Position Yes -Correct Procedure Yes -Procedure Performed Yes -Type of Procedure Debridement -Clinical Debridement Subcutaneous -Tissue Removed Subcutaneous -Post Debridement (cm) - Length 2.0 -Post Debridement (cm) - Width 0.5 -Post Debridement (cm) - Depth 0.1 -Total Square (Post) (cm) 1.00 -Area of Debridement (cm) - Length 2.0 -Area of Debridement (cm) - Width 0.5 -Total Square (Area) (cm) 1.00 -Tunneling No -Undermining/Tunneling No -Circular Undermining No -Wound/Ulcer Outcome Not Healed -Ulcer Cleansing Rinsed/ Irrigated with Saline -Foul Odor after Cleansing No -Bioengineered Tissue No -Debridement - Subq, 1st 20sq cm No #11 left superior moser -Time 14:21 -Correct Patient Yes -Correct Side, Site, Position Yes -Correct Procedure Yes -Procedure Performed Yes -Type of Procedure Debridement -Clinical Debridement Subcutaneous -Tissue Removed Subcutaneous -Post Debridement (cm) - Length 1.0 -Post Debridement (cm) - Width 1.0 -Post Debridement (cm) - Depth 0.1 -Total Square (Post) (cm) 1.00 -Area of Debridement (cm) - Length 1.0 -Area of Debridement (cm) - Width 1.0 -Total Square (Area) (cm) 1.00 -Tunneling No -Undermining/Tunneling No -Circular Undermining No -Wound/Ulcer Outcome Not Healed -Ulcer Cleansing Rinsed/ Irrigated with Saline -Foul Odor after Cleansing No -Bioengineered Tissue No -Bleeding Controlled with Pressure -Offloading No -Debridement - Subq, 20sq cm No [See Physician Procedure note for Specifics] WC - Nurse 3 - General Ulcer D/C NN Start: 01/16/20 13:34 Freq: Status: Active Protocol: Activity Type Activity Date Activity User E-Sign Co-Sign Detail Recorded Client Recorded Date Recorded By Document 01/16/20 14:33 DL [id number] 01/16/20 14:36 DL 01/16/20 14:33 Wound Care Nurse 3 [Wound Dressing] 13-right heel ulcer -Ulcer Cleansing Rinsed/ Irrigated with Saline -Foul Odor after Cleansing No -Primary Dressing Applied Allevyn Foam 6x6,Silvercel -Primary Dressing Covered/Secured Dry Gauze & with Roll Gauze, Secured with Tape -Allevyn Foam 6x6 1 -Silvercel 1 12-left mid moser -Ulcer Cleansing Rinsed/ Irrigated with Saline -Foul Odor after Cleansing No -Other Dressing silvercell -Primary Dressing Covered/Secured Dry Gauze & with Roll Gauze, Secured with Tape #11 left superior moser -Ulcer Cleansing Rinsed/ Irrigated with Saline -Foul Odor after Cleansing No -Other Dressing silvercell -Primary Dressing Covered/Secured Dry Gauze & with Roll Gauze, Secured with Tape [Post Procedure Tolerated] -Treatment Response Procedure Tolerated Well Vital Signs [Temperature Protocol: VS] -Temperature (97.8 F-99.1 F) 97.4 F L -Temperature Source Temporal [Pulse] -Pulse Rate (60-100) 73 -Pulse Location Monitor [Respirations] -Respiratory Rate (12-18) 18 -Respiratory rate source Observation [Blood Pressure] -Blood Pressure (90/60-120/80) 149/63 H -Blood Pressure Mean (mm Hg) 91 -Source Monitor Pain Scale: 0-10 Numeric [Pain] -Is Patient Pain Free? Yes WC - Visit Discharge [Visit Discharge Information] -Discharge Condition Stable -Ambulatory Status Walker -Transportation Private Auto -Accompanied by [Facility Notification] -Facility Type Care Home Care Facility -Telephoned (if yes, spoke with:) Yes Neurological: Neuro grossly intact Psych/Mental Status: Normal Affect, Appropriate, Alert and oriented to time, place, person, mood and affect Debridement Note Post-Debridement Measurements/Treatment WC - Nurse 2 - General Ulcer CM Notes Start: 01/16/20 13:34 Freq: Status: Active Protocol: Activity Type Activity Date Activity User E-Sign Co-Sign Detail Recorded Client Recorded Date Recorded By Document 01/16/20 14:13 MW [id number] 01/16/20 14:29 MW 01/16/20 14:13 Wound Center Nurse 2 13-right heel ulcer -Time 14:18 -Correct Patient Yes -Correct Side, Site, Position Yes -Correct Procedure Yes -Procedure Performed Yes -Type of Procedure Debridement -Clinical Debridement Subcutaneous -Tissue Removed Subcutaneous -Post Debridement (cm) - Length 1.3 -Post Debridement (cm) - Width 2.0 -Post Debridement (cm) - Depth 0.2 -Total Square (Post) (cm) 2.60 -Area of Debridement (cm) - Length 1.3 -Area of Debridement (cm) - Width 2.0 -Total Square (Area) (cm) 2.60 -Tunneling No -Undermining/Tunneling No -Circular Undermining No -Wound/Ulcer Outcome Not Healed -Ulcer Cleansing Rinsed/ Irrigated with Saline -Foul Odor after Cleansing No -Bioengineered Tissue No -Bleeding Controlled with Pressure -Offloading No -Treatment Response Procedure Tolerated Well -Debridement - Subq, 1st 20sq cm Yes 12-left mid moser -Time 14:20 -Correct Patient Yes -Correct Side, Site, Position Yes -Correct Procedure Yes -Procedure Performed Yes -Type of Procedure Debridement -Clinical Debridement Subcutaneous -Tissue Removed Subcutaneous -Post Debridement (cm) - Length 2.0 -Post Debridement (cm) - Width 0.5 -Post Debridement (cm) - Depth 0.1 -Total Square (Post) (cm) 1.00 -Area of Debridement (cm) - Length 2.0 -Area of Debridement (cm) - Width 0.5 -Total Square (Area) (cm) 1.00 -Tunneling No -Undermining/Tunneling No -Circular Undermining No -Wound/Ulcer Outcome Not Healed -Ulcer Cleansing Rinsed/ Irrigated with Saline -Foul Odor after Cleansing No -Bioengineered Tissue No -Debridement - Subq, 1st 20sq cm No #11 left superior moser -Time 14:21 -Correct Patient Yes -Correct Side, Site, Position Yes -Correct Procedure Yes -Procedure Performed Yes -Type of Procedure Debridement -Clinical Debridement Subcutaneous -Tissue Removed Subcutaneous -Post Debridement (cm) - Length 1.0 -Post Debridement (cm) - Width 1.0 -Post Debridement (cm) - Depth 0.1 -Total Square (Post) (cm) 1.00 -Area of Debridement (cm) - Length 1.0 -Area of Debridement (cm) - Width 1.0 -Total Square (Area) (cm) 1.00 -Tunneling No -Undermining/Tunneling No -Circular Undermining No -Wound/Ulcer Outcome Not Healed -Ulcer Cleansing Rinsed/ Irrigated with Saline -Foul Odor after Cleansing No -Bioengineered Tissue No -Bleeding Controlled with Pressure -Offloading No -Debridement - Subq, 1st 20sq cm No WC - Nurse 3 - General Ulcer D/C NN Start: 01/16/20 13:34 Freq: Status: Active Protocol: Activity Type Activity Date Activity User E-Sign Co-Sign Detail Recorded Client Recorded Date Recorded By Document 01/16/20 14:33 DL [id number] 01/16/20 14:36 DL 01/16/20 14:33 Wound Care Nurse 3 13-right heel ulcer -Ulcer Cleansing Rinsed/ Irrigated with Saline -Foul Odor after Cleansing No -Primary Dressing Applied Allevyn Foam 6x6,Silvercel -Primary Dressing Covered/Secured with Dry Gauze & Roll Gauze, Secured with Tape -Allevyn Foam 6x6 1 -Silvercel 1 12-left mid moser -Ulcer Cleansing Rinsed/ Irrigated with Saline -Foul Odor after Cleansing No -Other Dressing silvercell -Primary Dressing Covered/Secured with Dry Gauze & Roll Gauze, Secured with Tape #11 left superior moser -Ulcer Cleansing Rinsed/ Irrigated with Saline -Foul Odor after Cleansing No -Other Dressing silvercell -Primary Dressing Covered/Secured with Dry Gauze & Roll Gauze, Secured with Tape Treatment Response Procedure Tolerated Well Vital Signs Temperature (97.8 F-99.1 F) 97.4 F L Temperature Source Temporal Pulse Rate (60-100) 73 Pulse Location Monitor Respiratory Rate (12-18) 18 Respiratory rate source Observation Blood Pressure (90/60-120/80) 149/63 H Blood Pressure Mean (mm Hg) 91 Source Monitor Pain Scale: 0-10 Numeric Is Patient Pain Free? Yes WC - Visit Discharge Discharge Condition Stable Ambulatory Status Walker Transportation Private Auto Accompanied by Facility Type Care Home Care Facility Telephoned (if yes, spoke with:) Yes Wound debrided: Right heel pressure injury, left lower extremity ulcers Type of Debridement: Excisional debridement Anesthesia Used: 5% Lidocaine Gel Depth: in the subcutaneous layer Percentage of wound debrided: 100 Instrument Used: 5mm curette Tissue Removed: Slough and devitalized tissue Severity: Fat Layer Exposed Amount of bleeding with debridement: Mild Bleeding Controlled with: Pressure Patient tolerated procedure well Assessment/Plan Active Problems (Last Reviewed 11/21/19 @ 10:52 by Holly Calzada) Non-healing ulcer of right foot with fat layer exposed (Acute) heel Nonhealing ulcer of left lower extremity with fat layer exposed (Acute) PAD (peripheral artery disease) (Acute) Assessment: Same as above Plan: The patient was seen and examined at the wound center today and was updated on the plan of care. A subcutaneous debridement was performed today. The patient tolerated the procedure well. For wound care he will apply moistened silver cell to all ulcers and change every other day. He will continue with home health care. His care plan was changed to a complex care plan. I recommend additional follow up with vascular surgeon, Dr. Rose to confirm if his arterial intervention has been optimized or if there are any additional vascular intervention opportunities. He did have a recent arterial studies which showed bilateral severe femoral stenosis and right peroneal and left tibial occlusions. To continue with single layer Tubigrip's for compression. He was reassured no local signs of infection are noted today and I do not recommend additional antibiotics. Baseline bloodwork was reviewed in [facility] from July and will repeat blood work today. foot xray ordered to evaluate for any potential underlying osseous involvmenet given the chronicity of his ulcer. Patient educated on the importance of diet on wound healing and instructed to reduce processed foods, strive for eating many servings of whole fruits and vegetables daily, increase protein and vitamin C intake. A nuclear medicine chief technologist referral was provided and the benefits and indications were reviewed. This patient verbalized understanding. I also recommend improved offloading. I recommended offloading donut pillow to take pressure off of his heel while lying in bed. His elects to obtain this off of [place]. I also recommend reducing direct pressure with standing with the use of an assistive device which she already has. The surgical shoe with dual layer Plastizote with offloading pocket was fabricated prior by podiatry. Ideally a cam walker with offloading pockets or total contact cast would offload better however with his fall risk this is not recommended. He understands this is going to limit his healing potential. Due to the patient's debility, weekly falls, and difficulty caring for himself and having his dressings changed, do also believe that patient would benefit from home health care and [facility] care (at which time patient still refuses). He will follow up at the wound healing center next week. 111xxx-113xx: [id number] Luz subq tissue 20 sq cm/<
[2020-01-16 16:51] LABS: Hemoglobin A1c 5.4 % (3.8-5.6)
[2020-01-16 16:55] LABS: Erythrocyte Sedimentation Rate 41 mm/hr (0-20)
[2020-01-16 17:29] LABS: ALB/GLOB Ratio 0.9 RATIO (0.9-2.4); AST(SGOT) 23 U/L (15-37); Alanine Aminotransfer ALT/SGPT 30 U/L (16-61); Albumin, Serum 3.3 g/dL (3.2-5.0); Alkaline Phosphatase 79 U/L (45-117); Anion Gap 5 (5-15); BUN 28 mg/dL (7-18); BUN/Creat Ratio 34.3 RATIO (10-20); CRP < 2.90 mg/L (0.0-3.0); Calcium,Total 9.3 mg/dL (8.5-10.1); Chloride 105 mmol/L (98-107); Creatinine, Serum 0.82 mg/dL (0.70-1.30); EST Glomerular Filtration Rate 95 mL/min (>60); Est Glom Filt Rate - Afr Amer 115 mL/min (>60); Estimated Creatinine Clearance 54.09 ml/min; Globulin 3.7 g/dL (2.2-4.2); Glucose 81 mg/dL (74-106); Potassium 3.8 mmol/L (3.5-5.1); Prealbumin 27.1 mg/dL (20.0-40.0); Sodium Level 140 mmol/L (136-145)
[2020-01-21 20:07] LABS: Albumin 3.4 g/dL (2.9-4.4); Alpha-1-Globulins 0.3 g/dL (0.0-0.4); Alpha-2-Globulins 0.9 g/dL (0.4-1.0); Gamma Globulin 0.6 g/dL (0.4-1.8); Immunoglobulin A 251 mg/dL (61-437); Immunoglobulin G 759 mg/dL (603-1613); Immunoglobulin M 33 mg/dL (15-143); PROEL- TOTAL PROTEIN 6.4 g/dL (6.0-8.5)
[2020-01-21 20:44] LABS: Immunofixation Urine Comment: (.)
[2020-01-30 13:23] VITALS: BP 150/78; PULSE 61; RESP 18; TEMP 36.1; BMI 21.2
[2020-01-30 14:16] VITALS: BP 148/60; PULSE 65; RESP 18
--- NOTE | 2020-01-30 16:42 | PCM.WC.PN ---
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 Status: Acute Code(s): L97.922 - Non-pressure chronic ulcer of unspecified part of left lower leg with fat layer exposed (2) Non-healing ulcer of right foot with fat layer exposed Status: Acute Code(s): L97.512 - Non-pressure chronic ulcer of other part of right foot with fat layer exposed Comment: heel (3) PAD (peripheral artery disease) Status: Acute Code(s): I73.9 - Peripheral vascular disease, unspecified (4) Debility Status: Acute Code(s): R53.81 - Other malaise (5) Delayed wound healing Status: Acute Code(s): T14.8XXD - Other injury of unspecified body region, subsequent encounter (6) Fall Status: Acute Code(s): W19.XXXA - Unspecified fall, initial encounter (7) Neuropathy Status: Acute Code(s): G62.9 - Polyneuropathy, unspecified (8) Rectal prolapse Status: Acute Code(s): K62.3 - Rectal prolapse (9) Chronic pain of right heel Status: Chronic Code(s): M79.671 - Pain in right foot; G89.29 - Other chronic pain (10) Debility Status: Chronic Code(s): R53.81 - Other malaise (11) Essential (primary) hypertension Status: Chronic Code(s): I10 - Essential (primary) hypertension Type of Wound Date of Service: 01/30/20 Chief Complaint: Chronic right heel ulceration, left lower leg ulcer History of Wound: Joaquin is an 84-year-old male who presents to the clinic today with complaints of a left lower extremity ulcer, as well as a 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 He has a past medical history significant for CAD, PVD, peripheral neuropathy (Currently following up with neurology), and arthritis. He has a history of angioplasty and stent placement in his right superficial femoral artery and right popliteal artery. He was also previously followed with Dr. Rose for vascular management in which his prior ABIs from 02/2019 showed a right RALPH of 1.07 and a left RALPH of 0.67. He also had vascular studies done in September 2019 from his primary care which showed valvular competence. He has not been able to offload due to loss of balance and ongoing falls. He is with his today. He recently underwent podiatric evaluation by Dr. Hoover who recommended an offloading, nutrition consult, and repeat x-ray. In the recent past, he also completed a course of antibiotics for Staphylococcus aureus infection. He was also treated with antimicrobial collagen dressing, Puraply and recently with amnio advanced wound healing product [facility]. He did have arterial studies done in 12/2019 which the results are pending but a preliminary shows a right RALPH 0.59 and a left RALPH of 0.45. He has yet to schedule follow-up with Dr. Rose. Progress of Wound: stable, no new concerns at this time - Physical Exam Vital Signs Temp Pulse Resp BP 97 F L 65 18 148/60 H 01/30/20 13:23 01/30/20 14:16 01/30/20 14:16 01/30/20 14:16 General: Alert, Oriented x3, Cooperative, No apparent distress HEENT: Atraumatic Oral: Moist Mucosa Lungs: Clear to auscultation, Normal air movement Cardiovascular: Regular rate, Regular Rhythm Abdomen: Soft, Non Tender Extremities: No clubbing, No cyanosis, Diminished Peripheral Pulses, Edema - Generalized bilateral lower extremity edema Skin: Ulcer/ Wound - See nursing documentation, slough devitalized tissue present, no signs of infection at this time Wound Measurements and Assessment WC - Nurse 1 - General Ulcer Measurement Start: 01/16/20 13:34 Freq: Status: Active Protocol: Activity Type Activity Date Activity User E-Sign Co-Sign Detail Recorded Client Recorded Date Recorded By Document 01/30/20 13:23 RB [id number] 01/30/20 13:29 RB 01/30/20 13:23 Wound Center Nurse 1 [Ulcer Assessment] 13-right heel ulcer -Combined with other wound No -Current Size (cm) - Length 0.6 -Current Size (cm) - Width 1.4 -Current Size (cm) - Depth 0.2 -Total Square Cm 0.84 -Tunneling No -Undermining/Tunneling No -Circular Undermining No -Exudate Amt Small -Exudate Type Serosanguineous -Wound Margin Flat & Intact -Granulation Amt Medium (34-66%) -Granulation Quality [place] -Slough/Fibrin Yes -Necrosis Amt Small (1-33%) -Necrotic Tissue Type Adherent Slough -Structure Exposed N/A -Texture (Michelle-wound Skin Appearance) Assessed,Callus -Moisture (Michelle-wound Skin Appearance Assessed,Dry/ ) Scaly -Color (Michelle-wound Skin Appearance) Assessed -Temperature (Michelle-wound Skin No Abnormality Appearance) (Pt Warm) -Tenderness on Palpation (Michelle-wound No Skin Appearance) -Ulcer Cleansing Wound Cleanser -Foul Odor after Cleansing No -Anesthetic Used 4% Lidocaine Solution 12-left mid moser -Combined with other wound No -Current Size (cm) - Length 0.4 -Current Size (cm) - Width 0.3 -Current Size (cm) - Depth 0.1 -Total Square Cm 0.12 -Tunneling No -Undermining/Tunneling No -Circular Undermining No -Exudate Amt Small -Exudate Type Serosanguineous -Wound Margin Flat & Intact -Granulation Amt Medium (34-66%) -Granulation Quality [place] -Slough/Fibrin Yes -Necrosis Amt Small (1-33%) -Necrotic Tissue Type Adherent Slough -Structure Exposed N/A -Texture (Michelle-wound Skin Appearance) Assessed -Moisture (Michelle-wound Skin Appearance Assessed ) -Color (Michelle-wound Skin Appearance) Assessed -Temperature (Michelle-wound Skin No Abnormality Appearance) (Pt Warm) -Tenderness on Palpation (Michelle-wound No Skin Appearance) -Ulcer Cleansing Wound Cleanser -Foul Odor after Cleansing No -Anesthetic Used 4% Lidocaine Solution #11 left superior moser -Combined with other wound No -Current Size (cm) - Length 0.7 -Current Size (cm) - Width 0.5 -Current Size (cm) - Depth 0.2 -Total Square Cm 0.35 -Tunneling No -Undermining/Tunneling No -Circular Undermining No -Exudate Amt Small -Exudate Type Serosanguineous -Wound Margin Flat & Intact -Granulation Amt Medium (34-66%) -Granulation Quality [place] -Slough/Fibrin Yes -Necrosis Amt Small (1-33%) -Necrotic Tissue Type Adherent Slough -Structure Exposed N/A -Texture (Michelle-wound Skin Appearance) Assessed -Moisture (Michelle-wound Skin Appearance Assessed ) -Color (Michelle-wound Skin Appearance) Assessed -Temperature (Michelle-wound Skin No Abnormality Appearance) (Pt Warm) -Tenderness on Palpation (Michelle-wound No Skin Appearance) -Ulcer Cleansing Wound Cleanser -Foul Odor after Cleansing No -Anesthetic Used 4% Lidocaine Solution [Edema Assessment] -Lower Limb Edema Present Yes -Right Calf (cm) 33 -Right Ankle (cm) 20.2 -Left Calf (cm) 30.2 -Left Ankle (cm) 20 WC - Nurse 2 - General Ulcer CM Notes Start: 01/16/20 13:34 Freq: Status: Active Protocol: Activity Type Activity Date Activity User E-Sign Co-Sign Detail Recorded Client Recorded Date Recorded By Document 01/30/20 13:48 MW [id number] 01/30/20 13:55 MW 01/30/20 13:48 Wound Center Nurse 2 [Procedure/Treatment] 13-right heel ulcer -Time 13:53 -Correct Patient Yes -Correct Side, Site, Position Yes -Correct Procedure Yes -Procedure Performed Yes -Type of Procedure Debridement -Clinical Debridement Subcutaneous -Tissue Removed Subcutaneous -Post Debridement (cm) - Length 1.0 -Post Debridement (cm) - Width 1.5 -Post Debridement (cm) - Depth 0.2 -Total Square (Post) (cm) 1.50 -Area of Debridement (cm) - Length 1.0 -Area of Debridement (cm) - Width 1.5 -Total Square (Area) (cm) 1.50 -Tunneling No -Undermining/Tunneling No -Circular Undermining No -Wound/Ulcer Outcome Not Healed -Ulcer Cleansing Rinsed/ Irrigated with Saline -Foul Odor after Cleansing No -Bioengineered Tissue No -Bleeding Controlled with Pressure -Offloading No -Treatment Response Procedure Tolerated Well -Debridement - Subq, 1st 20sq cm Yes 12-left mid moser -Time 13:54 -Correct Patient Yes -Correct Side, Site, Position Yes -Correct Procedure Yes -Procedure Performed Yes -Type of Procedure Debridement -Clinical Debridement Subcutaneous -Tissue Removed Subcutaneous -Post Debridement (cm) - Length 0.8 -Post Debridement (cm) - Width 0.4 -Post Debridement (cm) - Depth 0.1 -Total Square (Post) (cm) 0.32 -Area of Debridement (cm) - Length 0.8 -Area of Debridement (cm) - Width 0.4 -Total Square (Area) (cm) 0.32 -Tunneling No -Undermining/Tunneling No -Circular Undermining No -Wound/Ulcer Outcome Not Healed -Ulcer Cleansing Rinsed/ Irrigated with Saline -Foul Odor after Cleansing No -Bioengineered Tissue No -Bleeding Controlled with Pressure -Offloading No -Treatment Response Procedure Tolerated Well -Debridement - Subq, 1st 20sq cm No #11 left superior moser -Time 13:55 -Correct Patient Yes -Correct Side, Site, Position Yes -Correct Procedure Yes -Procedure Performed Yes -Type of Procedure Debridement -Clinical Debridement Subcutaneous -Tissue Removed Subcutaneous -Post Debridement (cm) - Length 1.0 -Post Debridement (cm) - Width 1.0 -Post Debridement (cm) - Depth 0.1 -Total Square (Post) (cm) 1.00 -Area of Debridement (cm) - Length 1.0 -Area of Debridement (cm) - Width 1.0 -Total Square (Area) (cm) 1.00 -Tunneling No -Undermining/Tunneling No -Circular Undermining No -Wound/Ulcer Outcome Not Healed -Ulcer Cleansing Rinsed/ Irrigated with Saline -Foul Odor after Cleansing No -Bioengineered Tissue No -Bleeding Controlled with Pressure -Offloading No -Treatment Response Procedure Tolerated Well -Debridement - Subq, 1st 20sq cm No [See Physician Procedure note for Specifics] Pain Scale: 0-10 Numeric [Pain] -Is Patient Pain Free? Yes WC - Nurse 3 - General Ulcer D/C NN Start: 01/16/20 13:34 Freq: Status: Active Protocol: Activity Type Activity Date Activity User E-Sign Co-Sign Detail Recorded Client Recorded Date Recorded By Document 01/30/20 14:16 VT [id number] 01/30/20 14:17 VT 01/30/20 14:16 Wound Care Nurse 3 [Wound Dressing] 13-right heel ulcer -Primary Dressing Applied Silvercel -Primary Dressing Covered/Secured Dry Gauze & with Roll Gauze, Secured with Tape -Silvercel 1 12-left mid moser -Primary Dressing Covered/Secured Dry Gauze & with Roll Gauze, Secured with Tape #11 left superior moser -Primary Dressing Covered/Secured Dry Gauze & with Roll Gauze, Secured with Tape Vital Signs [Pulse] -Pulse Rate (60-100) 65 -Pulse Location Monitor [Respirations] -Respiratory Rate (12-18) 18 -Respiratory rate source Observation -Oxygen Delivery Method Room Air [Blood Pressure] -Blood Pressure (90/60-120/80) 148/60 H -Blood Pressure Mean (mm Hg) 89 -Source Monitor -Position Sitting -Blood Pressure Location Left Arm Pain Scale: 0-10 Numeric [Pain] -Is Patient Pain Free? Yes WC - Visit Discharge [Visit Discharge Information] -Discharge Condition Stable -Ambulatory Status Walker -Transportation Private Auto -Accompanied by Musculoskeletal: Arthritic Changes Neurological: Neuro grossly intact, - - Debilitated Psych/Mental Status: Normal Affect, Appropriate Debridement Note Post-Debridement Measurements/Treatment WC - Nurse 2 - General Ulcer CM Notes Start: 01/16/20 13:34 Freq: Status: Active Protocol: Activity Type Activity Date Activity User E-Sign Co-Sign Detail Recorded Client Recorded Date Recorded By Document 01/16/20 14:13 MW [id number] 01/16/20 14:29 MW Document 01/30/20 13:48 MW [id number] 01/30/20 13:55 MW 01/16/20 01/30/20 14:13 13:48 Wound Center Nurse 2 13-right heel ulcer -Time 14:18 13:53 -Correct Patient Yes Yes -Correct Side, Site, Position Yes Yes -Correct Procedure Yes Yes -Procedure Performed Yes Yes -Type of Procedure Debridement Debridement -Clinical Debridement Subcutaneous Subcutaneous -Tissue Removed Subcutaneous Subcutaneous -Post Debridement (cm) - Length 1.3 1.0 -Post Debridement (cm) - Width 2.0 1.5 -Post Debridement (cm) - Depth 0.2 0.2 -Total Square (Post) (cm) 2.60 1.50 -Area of Debridement (cm) - Length 1.3 1.0 -Area of Debridement (cm) - Width 2.0 1.5 -Total Square (Area) (cm) 2.60 1.50 -Tunneling No No -Undermining/Tunneling No No -Circular Undermining No No -Wound/Ulcer Outcome Not Healed Not Healed -Ulcer Cleansing Rinsed/ Rinsed/ Irrigated with Irrigated with Saline Saline -Foul Odor after Cleansing No No -Bioengineered Tissue No No -Bleeding Controlled with Pressure Pressure -Offloading No No -Treatment Response Procedure Procedure Tolerated Well Tolerated Well -Debridement - Subq, 1st 20sq cm Yes Yes 12-left mid moser -Time 14:20 13:54 -Correct Patient Yes Yes -Correct Side, Site, Position Yes Yes -Correct Procedure Yes Yes -Procedure Performed Yes Yes -Type of Procedure Debridement Debridement -Clinical Debridement Subcutaneous Subcutaneous -Tissue Removed Subcutaneous Subcutaneous -Post Debridement (cm) - Length 2.0 0.8 -Post Debridement (cm) - Width 0.5 0.4 -Post Debridement (cm) - Depth 0.1 0.1 -Total Square (Post) (cm) 1.00 0.32 -Area of Debridement (cm) - Length 2.0 0.8 -Area of Debridement (cm) - Width 0.5 0.4 -Total Square (Area) (cm) 1.00 0.32 -Tunneling No No -Undermining/Tunneling No No -Circular Undermining No No -Wound/Ulcer Outcome Not Healed Not Healed -Ulcer Cleansing Rinsed/ Rinsed/ Irrigated with Irrigated with Saline Saline -Foul Odor after Cleansing No No -Bioengineered Tissue No No -Bleeding Controlled with Pressure -Offloading No -Treatment Response Procedure Tolerated Well -Debridement - Subq, 1st 20sq cm No No #11 left superior moser -Time 14:21 13:55 -Correct Patient Yes Yes -Correct Side, Site, Position Yes Yes -Correct Procedure Yes Yes -Procedure Performed Yes Yes -Type of Procedure Debridement Debridement -Clinical Debridement Subcutaneous Subcutaneous -Tissue Removed Subcutaneous Subcutaneous -Post Debridement (cm) - Length 1.0 1.0 -Post Debridement (cm) - Width 1.0 1.0 -Post Debridement (cm) - Depth 0.1 0.1 -Total Square (Post) (cm) 1.00 1.00 -Area of Debridement (cm) - Length 1.0 1.0 -Area of Debridement (cm) - Width 1.0 1.0 -Total Square (Area) (cm) 1.00 1.00 -Tunneling No No -Undermining/Tunneling No No -Circular Undermining No No -Wound/Ulcer Outcome Not Healed Not Healed -Ulcer Cleansing Rinsed/ Rinsed/ Irrigated with Irrigated with Saline Saline -Foul Odor after Cleansing No No -Bioengineered Tissue No No -Bleeding Controlled with Pressure Pressure -Offloading No No -Treatment Response Procedure Tolerated Well -Debridement - Subq, 1st 20sq cm No No Pain Scale: 0-10 Numeric Is Patient Pain Free? Yes WC - Nurse 3 - General Ulcer D/C NN Start: 01/16/20 13:34 Freq: Status: Active Protocol: Activity Type Activity Date Activity User E-Sign Co-Sign Detail Recorded Client Recorded Date Recorded By Document 01/16/20 14:33 [id number] 01/16/20 14:36 DL Document 01/30/20 14:16 VT [id number] 01/30/20 14:17 VT 01/16/20 01/30/20 14:33 14:16 Wound Care Nurse 3 13-right heel ulcer -Ulcer Cleansing Rinsed/ Irrigated with Saline -Foul Odor after Cleansing No -Primary Dressing Applied Allevyn Foam Silvercel 6x6,Silvercel -Primary Dressing Covered/Secured with Dry Gauze & Dry Gauze & Roll Gauze, Roll Gauze, Secured with Secured with Tape Tape -Allevyn Foam 6x6 1 -Silvercel 1 1 12-left mid moser -Ulcer Cleansing Rinsed/ Irrigated with Saline -Foul Odor after Cleansing No -Other Dressing silvercell -Primary Dressing Covered/Secured with Dry Gauze & Dry Gauze & Roll Gauze, Roll Gauze, Secured with Secured with Tape Tape #11 left superior moser -Ulcer Cleansing Rinsed/ Irrigated with Saline -Foul Odor after Cleansing No -Other Dressing silvercell -Primary Dressing Covered/Secured with Dry Gauze & Dry Gauze & Roll Gauze, Roll Gauze, Secured with Secured with Tape Tape Treatment Response Procedure Tolerated Well Vital Signs Temperature (97.8 F-99.1 F) 97.4 F L Temperature Source Temporal Pulse Rate (60-100) 73 65 Pulse Location Monitor Monitor Respiratory Rate (12-18) 18 18 Respiratory rate source Observation Observation Oxygen Delivery Method Room Air Blood Pressure (90/60-120/80) 149/63 H 148/60 H Blood Pressure Mean (mm Hg) 91 89 Source Monitor Monitor Position Sitting Blood Pressure Location Left Arm Pain Scale: 0-10 Numeric Is Patient Pain Free? Yes Yes WC - Visit Discharge Discharge Condition Stable Stable Ambulatory Status Walker Walker Transportation Private Auto Private Auto Accompanied by Facility Type [facility] Facility Telephoned (if yes, spoke with:) Yes Wound debrided: Right heel pressure injury, left lower extremity ulcers Type of Debridement: Excisional debridement Anesthesia Used: 5% Lidocaine Gel Depth: in the subcutaneous layer Percentage of wound debrided: 100 Instrument Used: 5mm curette Tissue Removed: Slough and devitalized tissue Severity: Fat Layer Exposed Amount of bleeding with debridement: Mild Bleeding Controlled with: Pressure Patient tolerated procedure well Assessment/Plan Clinical Impression(s) from Imaging Studies Foot X-Ray 01/16/20 15:40 IMPRESSION: Healed ulcer but no radiographic evidence of osteomyelitis. Electronically Signed: Jaylen Morales MD at 9:20 EDT Tel , Service support , Active Problems (Last Reviewed 11/21/19 @ 10:52 by Holly Calzada) PAD (peripheral artery disease) (Acute) Assessment: Same as above Plan: The patient was seen and examined at the wound center today and was updated on the plan of care. A subcutaneous debridement was performed today. The patient tolerated the procedure well. For wound care he will apply moistened silver cell to all ulcers and change every other day. He will continue with home health care. His care plan was changed to a complex care plan. I recommend additional follow up with vascular surgeon, Dr. Rose to confirm if his arterial intervention has been optimized or if there are any additional vascular intervention opportunities. He did have a recent arterial studies which showed bilateral severe femoral stenosis and right peroneal and left tibial occlusions. To continue with single layer Tubigrip's for compression. He was reassured no local signs of infection are noted today and I do not recommend additional antibiotics. [facility] and will repeat blood work was reviewed with patient. Foot xray ordered to evaluate for any potential underlying osseous involvmenet given the chronicity of his ulcer and was within normal limits. Patient educated on the importance of diet on wound healing and instructed to reduce processed foods, strive for eating many servings of whole fruits and vegetables daily, increase protein and vitamin C intake. A criminal justice instructor referral was provided and the benefits and indications were reviewed. This patient verbalized understanding. I also recommend improved offloading. I recommended offloading donut pillow to take pressure off of his heel while lying in bed. His elects to obtain this off of [employer]. I also recommend reducing direct pressure with standing with the use of an assistive device which she already has. The surgical shoe with dual layer Plastizote with offloading pocket was fabricated prior by podiatry. Ideally a cam walker with offloading pockets or total contact cast would offload better however with his fall risk this is not recommended. He understands this is going to limit his healing potential. Due to the patient's debility, weekly falls, and difficulty caring for himself and having his dressings changed, do also believe that patient would benefit from home health care and care home care (at which time patient still refuses). He will follow up at the wound healing center in 3 weeks or sooner if needed. [id number]: [id number] Luz subq tissue 20 sq cm/<
== END 2020-02-15 23:59 ==
LOC: WC 13:30
PROVIDERS: Nurse Practitioner Family; PCP Family Medicine; Referring Provider Podiatrist Foot & Ankle Surgery; Visit Provider Nurse Practitioner Family
DX: I73.9 Peripheral vascular disease, unspecified (principal); G62.9 Polyneuropathy, unspecified; I25.10 Atherosclerotic heart disease of native coronary artery without angina pectoris; M19.90 Unspecified osteoarthritis, unspecified site; L97.822 Non-pressure chronic ulcer of other part of left lower leg with fat layer exposed; L89.619 Pressure ulcer of right heel, unspecified stage; T14.8XXD Other injury of unspecified body region, subsequent encounter; W19.XXXD Unspecified fall, subsequent encounter; I10 Essential (primary) hypertension; R60.0 Localized edema
CPT/HCPCS: 11042; 36415; 73630; 80053; 82784; 83036; 84134; 84165; 85025; 85652; 86140; 86334; 86335

== ENCOUNTER 2020-02-12 13:47 | Outpatient (RCR) | payer MEDICARE, OTHER, SELFPAY | END 2020-02-15 23:59 | LOC: NS 13:47 | PROVIDERS: PCP Family Medicine; Visit Provider Nurse Practitioner Family | DX: Z71.3 Dietary counseling and surveillance (principal); E46 Unspecified protein-calorie malnutrition; R53.81 Other malaise | CPT/HCPCS: 97802 ==

== ENCOUNTER 2020-02-20 13:00 | Outpatient (RCR) | payer MEDICARE, OTHER, SELFPAY ==
[2020-02-16 00:21] VITALS: BP 148/60; PULSE 65; RESP 18; TEMP 36.1
--- NOTE | 2020-02-20 13:00 | PCM.WC.PN ---
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 Status: Chronic Code(s): L97.922 - Non-pressure chronic ulcer of unspecified part of left lower leg with fat layer exposed (2) Non-healing ulcer of right foot with fat layer exposed Status: Chronic Code(s): L97.512 - Non-pressure chronic ulcer of other part of right foot with fat layer exposed Comment: heel (3) Delayed wound healing Status: Chronic Code(s): T14.8XXD - Other injury of unspecified body region, subsequent encounter (4) Chronic pain of right heel Status: Chronic Code(s): M79.671 - Pain in right foot; G89.29 - Other chronic pain (5) Debility Status: Chronic Code(s): R53.81 - Other malaise Type of Wound Date of Service: 02/20/20 Chief Complaint: Chronic right heel ulceration, left lower leg ulcer History of Wound: Joaquin is an 84-year-old male who presents to the clinic today with complaints of a left lower extremity ulcer, as well as a 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 He has a past medical history significant for CAD, PVD, peripheral neuropathy (Currently following up with neurology), and arthritis. He has a history of angioplasty and stent placement in his right superficial femoral artery and right popliteal artery. He was also previously followed with Dr. Rose for vascular management in which his prior ABIs from 02/2019 showed a right RALPH of 1.07 and a left RALPH of 0.67. He also had vascular studies done in September 2019 from his primary care which showed valvular competence. He has not been able to offload due to loss of balance and ongoing falls. He is with his today. He recently underwent podiatric evaluation by Dr. Hoover who recommended an offloading, nutrition consult, and repeat x-ray. In the recent past, he also completed a course of antibiotics for Staphylococcus aureus infection. He was also treated with antimicrobial collagen dressing, Puraply and recently with [employer] advanced wound healing product [facility]. He did have arterial studies done in 12/2019 which the results are pending but a preliminary shows a right RALPH 0.59 and a left RALPH of 0.45. He is scheduled follow-up with Dr. Rose next week. Progress of Wound: stable, no new concerns at this time - Physical Exam Vital Signs Temp Pulse Resp BP 97.0 F L 64 18 130/72 H 02/20/20 13:11 02/20/20 13:11 02/20/20 13:11 02/20/20 14:02 General: Alert, Oriented x3, Cooperative HEENT: Atraumatic Oral: Moist Mucosa Lungs: Normal air movement Cardiovascular: Regular rate Extremities: Diminished Peripheral Pulses, Edema Skin: Ulcer/ Wound - Left lower leg superior and inferior ulcers which are painful to palpation. Right heal ulcer is stable. Wound Measurements and Assessment WC - Nurse 1 - General Ulcer Measurement Start: 02/20/20 13:11 Freq: Status: Active Protocol: Activity Type Activity Date Activity User E-Sign Co-Sign Detail Recorded Client Recorded Date Recorded By Document 02/20/20 13:11 MD [id number] 02/20/20 13:31 MD 02/20/20 13:11 Wound Center Nurse 1 [Ulcer Assessment] 13-right heel ulcer -Current Size (cm) - Length 0.5 -Current Size (cm) - Width 1.2 -Current Size (cm) - Depth 0.3 -Total Square Cm 0.60 -Exudate Amt Small -Exudate Type Serosanguineous -Wound Margin Thickened & Rolled Under -Granulation Amt Medium (34-66%) -Granulation Quality Pale,[place] -Necrosis Amt Medium (34-66%) -Necrotic Tissue Type Adherent Slough -Texture (Michelle-wound Skin Appearance) Assessed -Moisture (Michelle-wound Skin Appearance Assessed ) -Color (Michelle-wound Skin Appearance) Assessed -Temperature (Michelle-wound Skin No Abnormality Appearance) (Pt Warm) -Tenderness on Palpation (Michelle-wound No Skin Appearance) -Ulcer Cleansing Wound Cleanser -Foul Odor after Cleansing No -Anesthetic Used 5% Lidocaine Gel 12-left mid moser -Current Size (cm) - Length 1.0 -Current Size (cm) - Width 0.6 -Current Size (cm) - Depth 0.2 -Total Square Cm 0.60 -Exudate Amt Small -Exudate Type Serosanguineous -Wound Margin Flat & Intact -Granulation Amt Medium (34-66%) -Granulation Quality Pale,[place] -Necrosis Amt Medium (34-66%) -Necrotic Tissue Type Adherent Slough -Texture (Michelle-wound Skin Appearance) Assessed, Localized Edema ,Scarring -Moisture (Michelle-wound Skin Appearance Assessed ) -Color (Michelle-wound Skin Appearance) Assessed, Hemosiderin Staining -Temperature (Michelle-wound Skin No Abnormality Appearance) (Pt Warm) -Tenderness on Palpation (Michelle-wound Yes Skin Appearance) -Ulcer Cleansing Rinsed/ Irrigated with Saline -Foul Odor after Cleansing No -Anesthetic Used 5% Lidocaine Gel #11 left superior moser -Current Size (cm) - Length 0.1 -Current Size (cm) - Width 0.1 -Current Size (cm) - Depth 0.1 -Total Square Cm 0.01 -Epithelialization Large 67-100% -Wound Margin Flat & Intact -Granulation Amt Small (1-33%) -Granulation Quality Pale,[place] -Necrosis Amt Large (67-100%) -Necrotic Tissue Type Adherent Slough -Texture (Michelle-wound Skin Appearance) Assessed, Localized Edema -Moisture (Michelle-wound Skin Appearance Assessed ) -Color (Michelle-wound Skin Appearance) Assessed -Temperature (Michelle-wound Skin No Abnormality Appearance) (Pt Warm) -Tenderness on Palpation (Michelle-wound Yes Skin Appearance) -Ulcer Cleansing Rinsed/ Irrigated with Saline -Foul Odor after Cleansing No -Anesthetic Used 4% Lidocaine Solution [Edema Assessment] -Lower Limb Edema Present Yes -Right Calf (cm) 33 -Right Ankle (cm) 20.2 -Left Calf (cm) 30.2 -Left Ankle (cm) 20 WC - Nurse 2 - General Ulcer CM Notes Start: 02/20/20 13:11 Freq: Status: Active Protocol: Activity Type Activity Date Activity User E-Sign Co-Sign Detail Recorded Client Recorded Date Recorded By Document 02/20/20 13:46 MW [id number] 02/20/20 13:50 MW 02/20/20 13:46 Wound Center Nurse 2 [Procedure/Treatment] 13-right heel ulcer -Time 13:48 -Correct Patient Yes -Correct Side, Site, Position Yes -Correct Procedure Yes -Procedure Performed Yes -Type of Procedure Debridement -Clinical Debridement Subcutaneous -Tissue Removed Subcutaneous -Post Debridement (cm) - Length 0.7 -Post Debridement (cm) - Width 1.2 -Post Debridement (cm) - Depth 0.2 -Total Square (Post) (cm) 0.84 -Area of Debridement (cm) - Length 0.7 -Area of Debridement (cm) - Width 1.2 -Total Square (Area) (cm) 0.84 -Tunneling No -Undermining/Tunneling No -Circular Undermining No -Wound/Ulcer Outcome Not Healed -Ulcer Cleansing Rinsed/ Irrigated with Saline -Foul Odor after Cleansing No -Bioengineered Tissue No -Bleeding Controlled with Pressure -Offloading No -Treatment Response Procedure Tolerated Well -Debridement - Subq, 1st 20sq cm Yes 12-left mid moser -Time 13:47 -Correct Patient Yes -Correct Side, Site, Position Yes -Correct Procedure Yes -Procedure Performed Yes -Type of Procedure Debridement -Clinical Debridement Subcutaneous -Tissue Removed Subcutaneous -Post Debridement (cm) - Length 0.7 -Post Debridement (cm) - Width 0.5 -Post Debridement (cm) - Depth 0.3 -Total Square (Post) (cm) 0.35 -Area of Debridement (cm) - Length 0.7 -Area of Debridement (cm) - Width 0.5 -Total Square (Area) (cm) 0.35 -Tunneling No -Undermining/Tunneling No -Circular Undermining No -Wound/Ulcer Outcome Not Healed -Ulcer Cleansing Rinsed/ Irrigated with Saline -Foul Odor after Cleansing No -Bioengineered Tissue No -Bleeding Controlled with Pressure -Offloading No -Treatment Response Procedure Tolerated Well -Debridement - Subq, 20sq cm No #11 left superior moser -Time 13:46 -Correct Patient Yes -Correct Side, Site, Position Yes -Correct Procedure Yes -Procedure Performed Yes -Type of Procedure Incision & Drainage -Clinical Debridement Subcutaneous -Tissue Removed Subcutaneous -Post Debridement (cm) - Length 0.7 -Post Debridement (cm) - Width 0.8 -Post Debridement (cm) - Depth 0.2 -Total Square (Post) (cm) 0.56 -Area of Debridement (cm) - Length 0.7 -Area of Debridement (cm) - Width 0.8 -Total Square (Area) (cm) 0.56 -Tunneling No -Undermining/Tunneling No -Circular Undermining No -Wound/Ulcer Outcome Not Healed -Ulcer Cleansing Rinsed/ Irrigated with Saline -Foul Odor after Cleansing No -Bioengineered Tissue No -Bleeding Controlled with Pressure -Offloading No -Debridement - Subq, 1st 20sq cm No [See Physician Procedure note for Specifics] Pain Scale: 0-10 Numeric [Pain] -Is Patient Pain Free? Yes WC - Nurse 3 - General Ulcer D/C NN Start: 02/20/20 13:11 Freq: Status: Active Protocol: Activity Type Activity Date Activity User E-Sign Co-Sign Detail Recorded Client Recorded Date Recorded By Document 02/20/20 14:02 MT [id number] 02/20/20 14:06 MD 02/20/20 14:02 Wound Care Nurse 3 [Wound Dressing] 13-right heel ulcer -Ulcer Cleansing Rinsed/ Irrigated with Saline -Foul Odor after Cleansing No -Primary Dressing Applied Mepilex Border, Silvercel -Primary Dressing Covered/Secured Dry Gauze, with Secured with Tape -Mepilex Border 1 -Silvercel 1 12-left mid moser -Ulcer Cleansing Rinsed/ Irrigated with Saline -Foul Odor after Cleansing No -Primary Dressing Applied Silvercel -Primary Dressing Covered/Secured Dry Gauze, with Secured with Tape -Silvercel 0 #11 left superior moser -Ulcer Cleansing Rinsed/ Irrigated with Saline -Foul Odor after Cleansing No -Primary Dressing Applied Silvercel -Silvercel 0 Vital Signs [Blood Pressure] -Blood Pressure (90/60-120/80) 130/72 H -Blood Pressure Mean (mm Hg) 91 -Source Monitor -Position Sitting -Blood Pressure Location Right Arm - Visit Discharge [Visit Discharge Information] -Discharge Condition Stable -Ambulatory Status Walker -Transportation Private Auto -Accompanied by -Medication Reconcilliation completed No & provided to patient/care provider -Clinical Summary of Care Provided Yes Musculoskeletal: No Tenderness to Palpation of Joints or Extremities Neurological: Cranial nerves II-XII grossly intact Psych/Mental Status: Normal Affect, Appropriate Debridement Note Post-Debridement Measurements/Treatment - Nurse 2 - General Ulcer CM Notes Start: 02/20/20 13:11 Freq: Status: Active Protocol: Activity Type Activity Date Activity User E-Sign Co-Sign Detail Recorded Client Recorded Date Recorded By Document 02/20/20 13:46 MW [id number] 02/20/20 13:50 MW 02/20/20 13:46 Wound Center Nurse 2 13-right heel ulcer -Time 13:48 -Correct Patient Yes -Correct Side, Site, Position Yes -Correct Procedure Yes -Procedure Performed Yes -Type of Procedure Debridement -Clinical Debridement Subcutaneous -Tissue Removed Subcutaneous -Post Debridement (cm) - Length 0.7 -Post Debridement (cm) - Width 1.2 -Post Debridement (cm) - Depth 0.2 -Total Square (Post) (cm) 0.84 -Area of Debridement (cm) - Length 0.7 -Area of Debridement (cm) - Width 1.2 -Total Square (Area) (cm) 0.84 -Tunneling No -Undermining/Tunneling No -Circular Undermining No -Wound/Ulcer Outcome Not Healed -Ulcer Cleansing Rinsed/ Irrigated with Saline -Foul Odor after Cleansing No -Bioengineered Tissue No -Bleeding Controlled with Pressure -Offloading No -Treatment Response Procedure Tolerated Well -Debridement - Subq, 1st 20sq cm Yes 12-left mid moser -Time 13:47 -Correct Patient Yes -Correct Side, Site, Position Yes -Correct Procedure Yes -Procedure Performed Yes -Type of Procedure Debridement -Clinical Debridement Subcutaneous -Tissue Removed Subcutaneous -Post Debridement (cm) - Length 0.7 -Post Debridement (cm) - Width 0.5 -Post Debridement (cm) - Depth 0.3 -Total Square (Post) (cm) 0.35 -Area of Debridement (cm) - Length 0.7 -Area of Debridement (cm) - Width 0.5 -Total Square (Area) (cm) 0.35 -Tunneling No -Undermining/Tunneling No -Circular Undermining No -Wound/Ulcer Outcome Not Healed -Ulcer Cleansing Rinsed/ Irrigated with Saline -Foul Odor after Cleansing No -Bioengineered Tissue No -Bleeding Controlled with Pressure -Offloading No -Treatment Response Procedure Tolerated Well -Debridement - Subq, 1st 20sq cm No #11 left superior moser -Time 13:46 -Correct Patient Yes -Correct Side, Site, Position Yes -Correct Procedure Yes -Procedure Performed Yes -Type of Procedure Incision & Drainage -Clinical Debridement Subcutaneous -Tissue Removed Subcutaneous -Post Debridement (cm) - Length 0.7 -Post Debridement (cm) - Width 0.8 -Post Debridement (cm) - Depth 0.2 -Total Square (Post) (cm) 0.56 -Area of Debridement (cm) - Length 0.7 -Area of Debridement (cm) - Width 0.8 -Total Square (Area) (cm) 0.56 -Tunneling No -Undermining/Tunneling No -Circular Undermining No -Wound/Ulcer Outcome Not Healed -Ulcer Cleansing Rinsed/ Irrigated with Saline -Foul Odor after Cleansing No -Bioengineered Tissue No -Bleeding Controlled with Pressure -Offloading No -Debridement - Subq, 1st 20sq cm No Pain Scale: 0-10 Numeric Is Patient Pain Free? Yes - Nurse 3 - General Ulcer D/C NN Start: 02/20/20 13:11 Freq: Status: Active Protocol: Activity Type Activity Date Activity User E-Sign Co-Sign Detail Recorded Client Recorded Date Recorded By Document 02/20/20 14:02 MD [id number] 02/20/20 14:06 MD 02/20/20 14:02 Wound Care Nurse 3 13-right heel ulcer -Ulcer Cleansing Rinsed/ Irrigated with Saline -Foul Odor after Cleansing No -Primary Dressing Applied Mepilex Border, Silvercel -Primary Dressing Covered/Secured with Dry Gauze, Secured with Tape -Mepilex Border 1 -Silvercel 1 12-left mid moser -Ulcer Cleansing Rinsed/ Irrigated with Saline -Foul Odor after Cleansing No -Primary Dressing Applied Silvercel -Primary Dressing Covered/Secured with Dry Gauze, Secured with Tape -Silvercel 0 #11 left superior moser -Ulcer Cleansing Rinsed/ Irrigated with Saline -Foul Odor after Cleansing No -Primary Dressing Applied Silvercel -Silvercel 0 Vital Signs Blood Pressure (90/60-120/80) 130/72 H Blood Pressure Mean (mm Hg) 91 Source Monitor Position Sitting Blood Pressure Location Right Arm WC - Visit Discharge Discharge Condition Stable Ambulatory Status Walker Transportation Private Auto Accompanied by Medication Reconcilliation completed & No provided to patient/care provider Clinical Summary of Care Provided Yes Wound debrided: heel ulcer Laterality: Right Type of Debridement: Excisional debridement Anesthesia Used: 5% Lidocaine Gel Depth: Down to and including healthy tissue, in the subcutaneous layer Percentage of wound debrided: 100 Instrument Used: 5mm curette Tissue Removed: subcutanoeus tissue and slough Severity: Fat Layer Exposed Amount of bleeding with debridement: Mild Bleeding Controlled with: Pressure Patient tolerated procedure well - Additional Wound Wound debrided: superior lower leg ulcer Laterality: Left Type of Debridement: Excisional debridement Anesthesia Used: 5% Lidocaine Gel Depth: Down to and including healthy tissue, in the subcutaneous layer Percentage of wound debrided: 100 Instrument Used: 3mm curette Tissue Removed: Subcutaneous tissue and slough Severity: Fat Layer Exposed Amount of bleeding with debridement: Mild Bleeding Controlled with: Pressure - Additional Wound Wound debrided: lower leg inferior ulcer Laterality: Left Type of Debridement: Excisional debridement Anesthesia Used: 5% Lidocaine Gel Depth: Down to and including healthy tissue, in the subcutaneous layer Percentage of wound debrided: 100 Instrument Used: 3mm curette Tissue Removed: Subcutaneous tissue and slough Severity: Fat Layer Exposed Amount of bleeding with debridement: None Bleeding Controlled with: Pressure Patient tolerated procedure: Patient tolerated procedure well Assessment/Plan Active Problems (Last Reviewed 11/21/19 @ 10:52 by Holly Calzada) Chronic pain of right heel (Chronic) Non-healing ulcer of right foot with fat layer exposed (Chronic) heel 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 Non healing ulcer of left lower leg. 2. Non healing ulcer of right heel. 3. Delayed wound healing. 4. Chronic pain on left heel. 5. Debility Plan: The patient was seen and examined at the wound center today and was updated on the plan of care. A subcutaneous debridement was performed today. The patient tolerated the procedure well. For wound care he will apply moistened silver cell, cover with adaptic to all ulcers and change every other day. He will continue with home health care. His care plan was changed to a complex care plan. He has an appointment with Dr. Rose next week for an Angiogram according to his . I recommend additional follow up with vascular surgeon, Dr. Rose to confirm if his arterial intervention has been optimized or if there are any additional vascular intervention opportunities. He did have a recent arterial studies which showed bilateral severe femoral stenosis and right peroneal and left tibial occlusions. To continue with single layer Tubigrip's for compression. He was reassured no local signs of infection are noted today and I do not recommend additional antibiotics. Baseline bloodwork was reviewed in [facility] from July and will repeat blood work was reviewed with patient. Foot xray ordered to evaluate for any potential underlying osseous involvmenet given the chronicity of his ulcer and was within normal limits. Patient educated on the importance of diet on wound healing and instructed to reduce processed foods, strive for eating many servings of whole fruits and vegetables daily, increase protein and vitamin C intake. A supervisor compressed yeast referral was provided and the benefits and indications were reviewed. This patient verbalized understanding. I also recommend improved offloading. I recommended offloading goldy tavarez to take pressure off of his heel while lying in bed. His elects to obtain this off of [employer]. I also recommend reducing direct pressure with standing with the use of an assistive device which she already has. The surgical shoe with dual layer Plastizote with offloading pocket was fabricated prior by podiatry. Ideally a cam walker with offloading pockets or total contact cast would offload better however with his fall risk this is not recommended. He understands this is going to limit his healing potential. Due to the patient's debility, weekly falls, and difficulty caring for himself and having his dressings changed, do also believe that patient would benefit from home health care and care home care (at which time patient still refuses). He will follow up at the wound healing center in 2 weeks or sooner if needed. [id number]: [id number] Luz subq tissue 20 sq cm/<
[2020-02-20 13:11] VITALS: BP 117/57; PULSE 64; RESP 18; TEMP 36.1; BMI 21.2
[2020-02-20 14:02] VITALS: BP 130/72
--- NOTE | 2020-03-16 12:24 | WC ---
Kassandra called requesting Deepti to order more dressing supplies from [facility]. After looking at patient's chart, he has MCR and has home health. I called Kassandra at home to let her know that all of her 's dressing supplies need to be ordered thru his HHS due to havinf MCR. She verbalized understanding.
== END 2020-03-16 23:59 ==
LOC: WC 13:00
PROVIDERS: PCP Family Medicine; Referring Provider Podiatrist Foot & Ankle Surgery; Visit Provider Nurse Practitioner Family
DX: I73.9 Peripheral vascular disease, unspecified (principal); L97.412 Non-pressure chronic ulcer of right heel and midfoot with fat layer exposed; L97.822 Non-pressure chronic ulcer of other part of left lower leg with fat layer exposed; G62.9 Polyneuropathy, unspecified; I25.10 Atherosclerotic heart disease of native coronary artery without angina pectoris; M19.90 Unspecified osteoarthritis, unspecified site
CPT/HCPCS: 11042

== ENCOUNTER 2020-02-26 06:56 | Day surgery (SDC) | payer MEDICARE, OTHER, SELFPAY ==
[2020-02-25 14:17] VITALS: BMI 21.9
[2020-02-26 07:10] LABS: Hematocrit 36.7 % (40-54); Hemoglobin 11.7 g/dL (13.0-16.5); Mean Corp Hgb Conc 31.9 g/dL (32-36); Mean Corpuscular Hgb 31.9 pg (27.0-32.0); Mean Platelet Vol. 8.8 fl (6.2-12.0); Platelet Count 311 K/mm3 (150-450); RBC Distribution Width CV 14.8 % (11.6-14.6); RBC Distribution Width SD 54.8 fl (35.1-43.9); Red Blood Count 3.67 M/mm3 (4.6-6.2); White Blood Count 5.9 K/mm3 (4.4-11.0)
[2020-02-26 07:23] LABS: Albumin, Serum 3.1 g/dL (3.2-5.0); BUN 40 mg/dL (7-18); BUN/Creat Ratio 36.4 RATIO (10-20); Calcium,Total 9.1 mg/dL (8.5-10.1); Chloride 110 mmol/L (98-107); EST Glomerular Filtration Rate 68 mL/min (>60); Est Glom Filt Rate - Afr Amer 82 mL/min (>60); Estimated Creatinine Clearance 41.58 ml/min; Glucose 115 mg/dL (74-106); Phosphorus 3.5 mg/dL (2.5-4.9); Potassium 3.6 mmol/L (3.5-5.1); Sodium Level 142 mmol/L (136-145)
--- NOTE | 2020-02-26 08:45 | PCM.OPRPT ---
Problem List (1) PAD (peripheral artery disease) Status: Acute Report of Operation Date of Procedure: 02/26/20 Pre-Operative Diagnosis: PAD Post-Operative Diagnosis: Same Surgery/Procedure Performed:: 1. Ultrasound-guided access retrograde left common femoral artery. 2. Right lower extremity angiogram with catheter placed into the distal posterior tibial artery. 3. Balloon angioplasty of the entire posterior tibial artery with a 3 to 2.5 x 220 balloon with 2 different prolonged inflations. 4. Balloon angioplasty of the distal stent into the popliteal artery with a 6 x 60 drug-coated balloon. 5. Closure with Star close Type of Anesthesia:: Sedation,Conscious Description of Procedure: Patient brought to the Estate Planning Par[employer]. Underwent the appropriate timeout consent. Underwent sedation. Prepped and draped in a sterile fashion. We did ultrasound-guided access retrograde left common femoral artery. Put a 5 Bulgarian sheath in. Gave 5000 units of heparin. We got up and over the bifurcation afternoon aortogram with bilateral iliofemoral angio. We then put the catheter to the distal right external iliac artery. Angiogram from there showed the common femoral artery, the profunda, the femoral artery and femoral stents widely patent. We then imaged distally and this showed just past the stent into the popliteal artery with a moderate severe stenosis. Rest of the popliteal artery was patent. Below the knee the anterior tibial artery and peroneal had occlusions but collateral to some distal segments with the peroneal being in the more significant. Posterior tibial artery was occluded proximally but had recanalized segments throughout and then was the main runoff into the foot. We brought in a long 6 Bulgarian sheath and using a Glidewire quick cross got through the occlusion confirmed in the distal posterior tibial artery. Put an 014 wire. We then balloon from the very distal posterior tibial with a 2.5 x 3 x 220 balloon for 2 different inflations. Each for over 2-1/2 minutes. We then ballooned the stent into the popliteal artery with a 6 x 60 drug-coated balloon for over 2-1/2 minutes. Completion was markedly improved through all of this with good inline flow now through the stents and popliteal artery and especially the posterior tibial artery all the way into the foot. We removed out the sheath put a Star close deployed with good hemostasis. He was then brought to recovery stable condition. Sedation: This 84-year-old gentleman underwent moderate sedation given by Dr. Nate Rose. He was monitored EKG blood pressure and pulse ox for over the 30 minutes of the procedure. See the EMR for the complete record.
== END 2020-02-26 13:10 | disposition home or self-care (01) ==
PROVIDERS: PCP Family Medicine; Referring Provider Surgery Vascular Surgery; Visit Provider Surgery Vascular Surgery
DX: I70.213 Atherosclerosis of native arteries of extremities with intermittent claudication, bilateral legs (principal); E78.00 Pure hypercholesterolemia, unspecified; I25.10 Atherosclerotic heart disease of native coronary artery without angina pectoris; I10 Essential (primary) hypertension; M19.90 Unspecified osteoarthritis, unspecified site; Z85.828 Personal history of other malignant neoplasm of skin; Z95.5 Presence of coronary angioplasty implant and graft
CPT/HCPCS: 36245; 36415; 37224; 37228; 75710; 76937; 80069; 85027; 99152; 99153; J7040; Q9967; C1725; C1760; C1769; C1887; C1894

== ENCOUNTER 2020-03-01 03:40 | Emergency (ER) | payer MEDICARE, OTHER, SELFPAY ==
[2020-02-25 14:17] VITALS: BMI 21.9
[2020-03-01 03:41] VITALS: BP 151/86; PULSE 79; RESP 20; TEMP 36.3; O2SAT 98; BMI 22.1
--- NOTE | 2020-03-01 03:46 | RAD_ITS ---
HISTORY: CHEST PAIN X 1 HR. ANGIOPLASTY LAST WEEK EXAM: XR Chest 1 View COMPARISON: July 02, 2019 FINDINGS: LINES/DEVICES: Anchoring devices within both humeral heads from rotator cuff repair. Elevation of both humeral heads within the glenoid fossa with narrowing of the subacromial spaces LUNGS: There are chronic interstitial changes. No pneumothorax. No consolidation or effusion. MEDIASTINUM AND CARDIOVASCULAR STRUCTURES: Cardiac silhouette not enlarged. Central airways and mediastinal contour are unremarkable. Athersclerotic plaque within the aortic arch. Coronary artery stent in the right main BONES AND SOFT TISSUES: Thoracic spondylosis. RAD/Chest 1 View (Portable) IMPRESSION: Chronic interestitial changes. No radiographic evidence of acute cardiopulmonary disease. at 2307 Reported and signed by: Nasim Vasquez MD Electronically Signed: Nasim Vasquez MD at 4:26 EST Tel , Service support ,
--- NOTE | 2020-03-01 03:46 | EKG12_ITS ---
Test Reason : CP Blood Pressure : / mmHG Vent. Rate : 073 BPM Atrial Rate : 073 BPM P-R Int : 114 ms QRS Dur : 130 ms QT Int : 424 ms P-R-T Axes : 081 076 052 degrees QTc Int : 467 ms Somatic/Motion Artifact Normal sinus rhythm Right bundle branch block Abnormal ECG Confirmed by ALYSIA MONTES, MARIELLA ([id number]), newspaper managing editor REHAN GASPAR ([id number]) on 03/03/2020 12:52:12 PM Referred By: ESE Confirmed By:MARIELLA HATFIELD MD
[2020-03-01 04:02] LABS: Absolute Lymphocyte Count 1.05 X10^3/uL (0.83-4.51); Absolute Neutrophil Count 4.9 X10^3/uL (2.0-7.7); Basophil# 0.03 X10^3/uL; Basophil% 0.4 % (0-1); Eosinophil# 0.29 X10^3/uL; Eosinophils% 3.9 % (0-5); Hematocrit 40.2 % (40-54); Hemoglobin 12.7 g/dL (13.0-16.5); Lymphocyte # 1.05 X10^3/ul (4.0); Lymphocyte % 14.2 % (19-41); Mean Corp Hgb Conc 31.6 g/dL (32-36); Mean Corpuscular Hgb 32.1 pg (27.0-32.0); Mean Corpuscular Volume 101.5 fL (80-94); Mean Platelet Vol. 9.1 fl (6.2-12.0); Monocyte# 1.04 X10^3/uL; Monocyte% 14.1 % (0-10); NRBC Flagged by Analyzer 0 % (0-5); Neutrophil # 4.92 X10^3/uL (2.7-7.7); Neutrophil % 66.9 % (47-70); Platelet Count 364 K/mm3 (150-450); RBC Distribution Width CV 15.1 % (11.6-14.6); RBC Distribution Width SD 56.6 fl (35.1-43.9); Red Blood Count 3.96 M/mm3 (4.6-6.2); White Blood Count 7.4 K/mm3 (4.4-11.0)
--- NOTE | 2020-03-01 04:05 | ED.VIS.GEN ---
History of Present Illness Informant: Patient Narrative: 84-year-old male presents to the emergency department via EMS for the evaluation of chest pain. Patient tells me that approximately 0100 hrs. today he had a burning pain in his chest down to his epigastrium. He reports his mouth was dry. He took a nitroglycerin with no relief. After some deliberation he called 911. Hospital EKG showed no STEMI. patient arrived to the emergency department at approximately 0345. He tells me that it has gotten better but is still present. Patient had a heart cath in June of this year after being diagnosed with NSTEMI. Medical management was recommended. He underwent angioplasty of his leg approximately 4 days ago. <Jad Mayorga - Last Filed: 03/01/20 04:31> <Alli Russell - Last Filed: 03/01/20 07:35> Chief Complaint: Chest Pain - Past Medical History (1) Neuropathy Status: Chronic (2) PAD (peripheral artery disease) Status: Chronic (3) Rectal prolapse Status: Chronic (4) Essential (primary) hypertension Status: Chronic (5) Hyperlipidemia Status: Chronic (6) Right bundle branch block (RBBB) Status: Chronic (7) History of coronary artery stent placement Status: Resolved Comment: PCI-Stent to mid RCA 08/06/04; cutting balloon angioplasty with TAMERA to mid RCA 02/19; MXW-Etguz-KVT-of RCA 06/18/09; PCI/TAMERA to Ostial PDA and PCI-ISR RCA 09/03/13; PCI/TAMERA ISR of mid RCA 10/07/15; FFR mid LAD 0.86 10/08/15 (8) History of non-ST elevation myocardial infarction (NSTEMI) Status: Resolved <Jad Mayorga - Last Filed: 03/01/20 04:31> Past Medical History Prior records reviewed: Yes Surgical History: rotator cuff repair, tonsillectomy, - - The patient is undergone lumbar surgery in the past. He has a history of bilateral shoulder surgery. He has had coronary stents placed, and to proceed stenting was performed in the right lower extremity. Lives: Spouse/ Significant Other Smoking Status: Never smoker Drugs: None <Jad Mayorga - Last Filed: 03/01/20 04:31> <Alli Russell - Last Filed: 03/01/20 07:35> - Allergies and Home Meds Allergies/Adverse Reactions: Allergies carisoprodol Allergy (Verified 01/30/20 11:09) Other itraconazole Allergy (Verified 01/30/20 11:09) Other Primary Care Physician: Ryan Shukla MD [Primary Care Provider] - Review of Systems General: Denies: Chills, Fever, Sweats Eyes: Denies: Visual changes - bilaterally, Diplopia ENT: Denies: Rhinorrhea, Sore throat Cardiovascular: Reports: Chest pain. Denies: Palpitations Respiratory: Denies: Dyspnea, Cough, Dyspnea on exertion Gastrointestinal: Denies: Abdominal pain, Nausea, Vomiting, Diarrhea, Melena, Hematochezia Genitourinary: Denies: Dysuria, Hematuria, Frequency Musculoskeletal: Denies: Back pain, Extremity Pain Skin: Reports: Wounds. Denies: Rash Neurological: Denies: Headache, Weakness, Numbness <Jad Mayorga - Last Filed: 03/01/20 04:31> Physical Exam Vital Signs/Narrative: Vital Signs Temp Pulse Resp BP Pulse Ox 03/01/20 03:41 97.3 F L 79 20 H 151/86 H 98 Inital Vital Signs reviewed: Yes General: Well nourished, Well developed, No Acute Distress Head: Normocephalic, Atraumatic Eyes: Perrl, EOMI ENT: Moist mucous membranes, No rhinorrhea Neck: Supple, Nontender Cardiovascular: Regular rate, Regular rhythm, No murmurs Respiratory: No distress, CTA bilaterally, Chest nontender Abdomen: Soft, Nontender, Nondistended, Normal bowel sounds Back: Nontender, Normal Inspection Extremities: Nontender, No edema Skin: Normal color, No rash Neurological: Alert, Oriented x3, Cranial nerves II-XII grossly intact, Normal Strength, Normal Sensation Psychological: - - Patient is anxious <Jad Mayorga - Last Filed: 03/01/20 04:31> Vital Signs/Narrative: Vital Signs Temp Pulse Resp BP Pulse Ox 03/01/20 06:35 71 14 175/74 H 03/01/20 03:41 97.3 F L 79 20 H 151/86 H 98 <Alli Russell - Last Filed: 03/01/20 07:35> Diagnostic/Tx/Re-eval Clinical Impression(s) from Imaging Studies Chest X-Ray 03/01/20 03:46 IMPRESSION: Chronic interestitial changes. No radiographic evidence of acute cardiopulmonary disease. at 0427 Reported and signed by: Nasim Vasquez MD Electronically Signed: Nasim Vasquez MD at 4:26 EST Tel , Service support , Laboratory Last Values WBC 7.4 K/mm3 (4.4-11.0) 03/01/20 03:32 RBC 3.96 M/mm3 (4.6-6.2) L 03/01/20 03:32 Hgb 12.7 g/dL (13.0-16.5) L 03/01/20 03:32 Hct 40.2 % (40-54) 03/01/20 03:32 MCV 101.5 fL (80-94) H 03/01/20 03:32 MCH 32.1 pg (27.0-32.0) H 03/01/20 03:32 MCHC 31.6 g/dL (32-36) L 03/01/20 03:32 RDW Std Deviation 56.6 fl (35.1-43.9) H 03/01/20 03:32 RDW Coeff of Ayesha 15.1 % (11.6-14.6) H 03/01/20 03:32 Plt Count 364 K/mm3 (150-450) 03/01/20 03:32 MPV 9.1 fl (6.2-12.0) 03/01/20 03:32 Immature Gran % (Auto) 0.500 % (0.0-0.9) 03/01/20 03:32 Neut % (Auto) 66.9 % (47-70) 03/01/20 03:32 Lymph % (Auto) 14.2 % (19-41) L 03/01/20 03:32 [place] % (Auto) 14.1 % (0-10) H 03/01/20 03:32 Eos % (Auto) 3.9 % (0-5) 03/01/20 03:32 Baso % (Auto) 0.4 % (0-1) 03/01/20 03:32 Absolute Neuts (auto) 4.9 X10^3/uL (2.0-7.7) 03/01/20 03:32 Absolute Lymphs (auto) 1.05 X10^3/uL (0.83-4.51) 03/01/20 03:32 Nucleated RBC % 0 % (0-5) 03/01/20 03:32 Sodium 140 mmol/L (136-145) 03/01/20 03:32 Potassium 3.7 mmol/L (3.5-5.1) 03/01/20 03:32 Chloride 103 mmol/L (98-107) 03/01/20 03:32 Carbon Dioxide 32.0 mmol/L (21.0-32.0) 03/01/20 03:32 Anion Gap 5 (5-15) 03/01/20 03:32 BUN 35 mg/dL (7-18) H 03/01/20 03:32 Creatinine 0.96 mg/dL (0.70-1.30) 03/01/20 03:32 Estim Creat Clear Calc 49.57 ml/min 03/01/20 03:32 Est GFR (MDRD) Af Amer 96 mL/min (>60) 03/01/20 03:32 Est GFR (MDRD) Non-Af 79 mL/min (>60) 03/01/20 03:32 BUN/Creatinine Ratio 36.5 RATIO (10-20) H 03/01/20 03:32 Glucose 109 mg/dL (74-106) H 03/01/20 03:32 Calcium 9.5 mg/dL (8.5-10.1) 03/01/20 03:32 Troponin I < 0.015 ng/mL (<0.045) 03/01/20 03:32 - EKG Initial EKG Interpretation: Sinus Rhythm, RBBB - EKG demonstrates a normal sinus rhythm with a right bundle branch block at a rate of 73. There is no concerning features of ACS or ectopy noted. - Medical Decision Making EKG showed no concerning features of ACS. Initial troponin was negative. He received a GI cocktail. We are going to do a 3-hour delta troponin. This will be a 6-hour troponin from the onset of symptoms. The case was discussed with the oncoming physician for check of the second troponin and final disposition. If negative I would anticipate a discharge. <Jad Mayorga - Last Filed: 03/01/20 04:31> - Medical Decision Making The patient's delta troponin was 0.021. This is still within the normal range. Patient was asymptomatic upon reevaluation. He will be discharged to follow-up with his PCP. <Alli Russell - Last Filed: 03/01/20 07:35> ED Disposition <Jad Mayorga - Last Filed: 03/01/20 04:31> <Alli Russell - Last Filed: 03/01/20 07:35> - Plan for ED Patient: Disposition: Home or Assisted Living Diagnosis: Chest pain Instructions: ED Chest Pain NonCardiac Referrals: Ryan Shukla MD [Primary Care Provider] -
[2020-03-01 04:16] LABS: Anion Gap 5 (5-15); BUN 35 mg/dL (7-18); BUN/Creat Ratio 36.5 RATIO (10-20); Calcium,Total 9.5 mg/dL (8.5-10.1); Chloride 103 mmol/L (98-107); Creatinine, Serum 0.96 mg/dL (0.70-1.30); EST Glomerular Filtration Rate 79 mL/min (>60); Est Glom Filt Rate - Afr Amer 96 mL/min (>60); Estimated Creatinine Clearance 49.57 ml/min; Glucose 109 mg/dL (74-106); Potassium 3.7 mmol/L (3.5-5.1); Sodium Level 140 mmol/L (136-145)
[2020-03-01] MEDS: Mag Hydrox/Al Hydrox/Simeth 30 ML UDC PO (04:40)
[2020-03-01 06:35] VITALS: BP 175/74; PULSE 71; RESP 14
--- NOTE | 2020-03-01 07:16 | ED.RN ---
UPDATED ON PLAN OF CARE. ALL QUESTIONS WERE ANSWERED. WILL WAIT FOR LABS TO RETURN FOR DISCHARGE OR ADMISSION.
[2020-03-01 08:20] VITALS: BP 138/83; PULSE 70; RESP 14; O2SAT 96
--- NOTE | 2020-03-01 09:04 | ED.RN ---
PT TO PRIVATE VEHICLE VIA WHEELCHAIR.
== END 2020-03-01 09:04 | disposition home or self-care (01) ==
PROVIDERS: Emergency Provider Emergency Medicine; PCP Family Medicine
DX: R07.9 Chest pain, unspecified (principal); I45.10 Unspecified right bundle-branch block; E78.5 Hyperlipidemia, unspecified; I10 Essential (primary) hypertension; I25.2 Old myocardial infarction; I73.9 Peripheral vascular disease, unspecified; Z88.3 Allergy status to other anti-infective agents; Z95.5 Presence of coronary angioplasty implant and graft
CPT/HCPCS: 36415; 71045; 80048; 84484; 85025; 93005; 99285; A4216

== ENCOUNTER 2020-03-19 11:10 | Emergency (ER) | payer MEDICARE, OTHER, SELFPAY ==
[2020-03-10 07:55] VITALS: BMI 21.9
[2020-03-19 11:12] VITALS: BP 115/65; PULSE 82; RESP 17; TEMP 36.3; O2SAT 100; BMI 20.9
--- NOTE | 2020-03-19 11:45 | ED.DCSUM_ITS ---
History of Present Illness Chief Complaint: GI Bleed Informant: Patient Onset: Today Context: Sudden Onset Timing: Continuous Quality: Bright red blood per rectum Location: History of rectal prolapse Current Severity: Severe Maximum Severity: Severe Worsened by: Inability to reduce rectal prolapse Relieved by: Nothing Associated Symptoms: No other symptoms Narrative: Is an elderly male who was recently started on Plavix because of peripheral vascular disease. He has had problems with rectal prolapse for 12 months. He states he has been unable to reduce the rectal prolapse for 6 months. He presents today because of significant mount of bright red blood. There is blood noted on his left leg and foot area. He denies orthostatic symptoms. He was told he is too old for surgery. He however is scheduled for vascular surgery. He does report bruising easily. Prior similar symptoms: Yes Recent Illness/Hospitalization: Yes - Past Medical History (1) Atherosclerotic heart disease of [place] coronary artery without angina pectoris Status: Chronic (2) Essential (primary) hypertension Status: Chronic (3) Hyperlipidemia Status: Chronic (4) Neuropathy Status: Chronic (5) PAD (peripheral artery disease) Status: Chronic (6) Rectal prolapse Status: Chronic (7) History of non-ST elevation myocardial infarction (NSTEMI) Status: Resolved Past Medical History - Allergies and Home Meds Allergies/Adverse Reactions: Allergies carisoprodol Allergy (Verified 01/30/20 11:09) Other itraconazole Allergy (Verified 01/30/20 11:09) Other Primary Care Physician: Ryan Shukla MD [Primary Care Provider] - Prior records reviewed: Yes Surgical History: rotator cuff repair, tonsillectomy, - - The patient is undergone lumbar surgery in the past. He has a history of bilateral shoulder surgery. He has had coronary stents placed, and to proceed stenting was performed in the right lower extremity. Lives: Alone Smoking Status: Never smoker Alcohol: None Drugs: None Review of Systems General: Denies: Chills, Fever, Malaise, Subjective, Sweats Cardiovascular: Denies: Chest pain, Palpitations Respiratory: Denies: Dyspnea, Cough, Dyspnea on exertion Gastrointestinal: Reports: Hematochezia. Denies: Abdominal pain, Nausea, Vomiting, Diarrhea, Constipation, Melena Musculoskeletal: Denies: Myalgias, Arthralgias, Neck pain, Back pain Skin: Reports: Wounds - Nonhealing wounds lower extremity due to peripheral arterial disease Neurological: Reports: Parasthesia, Numbness - The paresthesia and numbness are chronic Hematologic: Reports: Easy bruising Allergy: Denies: Uticaria Physical Exam Vital Signs/Narrative: Vital Signs Temp Pulse Resp BP Pulse Ox 03/19/20 11:12 97.3 F L 82 17 115/65 100 Inital Vital Signs reviewed: Yes General: Well nourished, Well developed, No Acute Distress Head: Normocephalic, Atraumatic Eyes: Perrl, EOMI. Negative for: Pale conjunctiva ENT: No rhinorrhea, TM's clear Neck: Supple, Nontender, No lymphadenopathy, No JVD Cardiovascular: Regular rate, Regular rhythm, No murmurs, Normal S1, Normal S2 Respiratory: No distress, CTA bilaterally, Diminished Abdomen: Soft, Nontender, Nondistended, Normal bowel sounds Rectal: - - It is of rectal prolapse with oozing. The tissue appears viable. There is no cyanosis. There is significant edema. Back: Nontender, Normal Inspection Extremities: Nontender, No edema Skin: No rash Neurological: Alert, Oriented x3, Cranial nerves II-XII grossly intact, Normal Strength, Normal Sensation Psychological: Normal affect Diagnostic/Tx/Re-eval - Medical Decision Making Patient has a rectal prolapse. Will obtain CBC to assess H&H and sugar was ordered to reduce the swelling to facilitate reduction of rectal prolapse. Procedures Procedure(s): Rectal prolapse was reduced after application of sugar. The sugar remained on the rectal mucosa for 30 minutes. The rectal prolapse was reduced easily without difficulty. Patient tolerated procedure well. ED Disposition - Plan for ED Patient: Disposition: Home or Assisted Living Diagnosis: Complete rectal prolapse with displacement of anal sphincter, Hematochezia not due to hemorrhage from anus Instructions: ED Rectal Prolapse Referrals: Ryan Shukla MD [Primary Care Provider] - Kang Barker MD [STAFF PHYSICIAN] - 5-7 Days
[2020-03-19 12:07] LABS: Absolute Lymphocyte Count 0.38 X10^3/uL (0.83-4.51); Absolute Neutrophil Count 3.7 X10^3/uL (2.0-7.7); Basophil# 0.01 X10^3/uL; Basophil% 0.2 % (0-1); Eosinophil# 0.04 X10^3/uL; Eosinophils% 0.9 % (0-5); Lymphocyte # 0.38 X10^3/ul (4.0); Lymphocyte % 8.1 % (19-41); Mean Corp Hgb Conc 31.4 g/dL (32-36); Mean Corpuscular Hgb 31.5 pg (27.0-32.0); Mean Corpuscular Volume 100.3 fL (80-94); Mean Platelet Vol. 9.3 fl (6.2-12.0); Monocyte# 0.58 X10^3/uL; Monocyte% 12.3 % (0-10); NRBC Flagged by Analyzer 0 % (0-5); Neutrophil # 3.67 X10^3/uL (2.7-7.7); Neutrophil % 78.1 % (47-70); POSITIVE DIFFERENTIAL YES; Platelet Count 249 K/mm3 (150-450); RBC Distribution Width CV 15.1 % (11.6-14.6); RBC Distribution Width SD 56.3 fl (35.1-43.9); Red Blood Count 3.49 M/mm3 (4.6-6.2); White Blood Count 4.7 K/mm3 (4.4-11.0)
[2020-03-19 12:08] LABS: Differential Indicated SCAN CRITERIA MET
[2020-03-19 12:31] LABS: Hypochromasia 1+; Macrocytosis RARE; Platelet Estimate ADEQUATE (ADEQ)
[2020-03-19 13:42] VITALS: BP 138/66; PULSE 73; RESP 15; O2SAT 95
== END 2020-03-19 15:57 | disposition home or self-care (01) ==
PROVIDERS: Emergency Provider Emergency Medicine; PCP Family Medicine
DX: K62.3 Rectal prolapse (principal); K92.1 Melena; I73.9 Peripheral vascular disease, unspecified; E78.5 Hyperlipidemia, unspecified; I10 Essential (primary) hypertension; I25.10 Atherosclerotic heart disease of native coronary artery without angina pectoris; I25.2 Old myocardial infarction; Z79.02 Long term (current) use of antithrombotics/antiplatelets; Z88.3 Allergy status to other anti-infective agents; Z95.5 Presence of coronary angioplasty implant and graft
CPT/HCPCS: 85025; 99284; A4216

== ENCOUNTER 2020-03-23 05:22 | Inpatient (IN) | payer MEDICARE, OTHER, SELFPAY ==
[2020-03-23] VITALS (30 sets, daily range): BP systolic 80–168; BP diastolic 45–123; PULSE 61–85; RESP 12–21; TEMP 36.1–37; O2SAT 94–100; BMI 22.5; BMI 21.6
--- NOTE | 2020-03-23 05:30 | EKG12_ITS ---
Test Reason : DYSRHYTHMIA Blood Pressure : / mmHG Vent. Rate : 068 BPM Atrial Rate : 068 BPM P-R Int : 114 ms QRS Dur : 144 ms QT Int : 462 ms P-R-T Axes : 085 080 067 degrees QTc Int : 491 ms Sinus rhythm with Premature atrial complexes Right bundle branch block Abnormal ECG Confirmed by ALYSIA MONTES, MARIELLA ([id number]), social media editor REHAN GASPAR ([id number]) on 03/25/2020 12:49:46 PM Referred By: LUIS FELIPE Confirmed By:MARIELLA HATFIELD MD
--- NOTE | 2020-03-23 05:30 | CT_ITS ---
HISTORY: ABD PAIN X 2-3 DAYS, LETHARGICHX:HTN,HLD,GERD,PROSTATE AND SKIN CANCER,RECTAL PROLAPSESURGERY:HERNIA REPAIR,BACK,PROSTATECTOMY,HEART STENTS ADDITIONAL HISTORY: None provided. EXAMINATION/TECHNIQUE: CT Abdomen And Pelvis W/ Contrast Injection CONTRAST: 100mL Isovue-300 IV contrast. Enteric contrast was not given. A radiation dose optimization technique was used for this scan. Number of images including paperwork: [id number] COMPARISON: None FINDINGS: LOWER THORAX: Bilateral peripheral groundglass opacities with partially visualized right lower lobe atelectasis versus consolidation. Coronary calcification. Small amount of fluid in the distal esophagus. LIVER: Small right lobe hepatic cyst. GALLBLADDER: No radiopaque calculi. BILE DUCTS: No significant biliary dilatation. SPLEEN: Unremarkable. PANCREAS: Unremarkable. ADRENAL GLANDS: Unremarkable. KIDNEYS/URETERS: Small bilateral renal cysts for which no follow-up is warranted per consensus guidelines. Nonobstructing left lower pole renal calculus measuring. BOWEL: Fluid distention of the stomach. Mildly prominent distal small bowel and colonic fluid. Fluid distention of the stomach. Rectal anastomosis. APPENDIX: No evidence of appendicitis. FREE FLUID: No significant free fluid. FREE AIR: None. LYMPH NODES: No pathologic appearing adenopathy. PERITONEUM, RETROPERITONEUM AND MESENTERY: Otherwise unremarkable. VASCULATURE: Atherosclerotic calcification. Atherosclerotic plaque of the left common femoral and proximal superficial femoral artery with high-grade stenosis of the left proximal superficial femoral artery. Stent noted in the proximal right superficial femoral artery. PELVIS: Unremarkable bladder. Prostatectomy. ABDOMINAL WALL: Unremarkable. OSSEOUS AND SOFT TISSUE STRUCTURES: No acute skeletal findings. Degenerative changes. Spinal fusion hardware L5/S1 on the left. L5-S1 disc space is fused. CT/Abdomen/Pelvis W IV Cont ONLY IMPRESSION: 1. Prominent small bowel and colonic fluid, a nonspecific finding which can be seen with enteritis. 2. Mild basilar infiltrates, nonspecific but possibly infection. 3. Additional findings above. Individualized dose optimization techniques were used for this CT. at 0644 Reported and signed by: Angelica Quinteros MD Electronically Signed: Angelica Quinteros MD at 6:44 EST Tel , Service support ,
--- NOTE | 2020-03-23 05:31 | ED.DCSUM_ITS ---
History of Present Illness Chief Complaint: General Illness Informant: Patient Narrative: 84-year-old male with past medical history of hypertension and coronary artery disease presents with concern for weakness. Patient's concerned that he is not been acting himself over the past 2 days. Patient states he is having diffuse aching abdominal pain. States it is been present over the past 2 to 3 days. States it is intermittent. States he currently does have a rectal prolapse for which they will not be performing surgery given his age. Patient is still able to move his bowels. Denies any urinary symptoms. Denies any fever, chills, cough, chest pain, shortness of breath, nausea, vomiting. Past Medical History - Allergies and Home Meds Allergies/Adverse Reactions: Allergies carisoprodol Allergy (Verified 03/23/20 05:31) Other itraconazole Allergy (Verified 03/23/20 05:31) Other Prior records reviewed: Yes Past Medical History: - - Hypertension and coronary artery disease Surgical History: rotator cuff repair, tonsillectomy, - - The patient is undergone lumbar surgery in the past. He has a history of bilateral shoulder surgery. He has had coronary stents placed, and to proceed stenting was performed in the right lower extremity. Lives: Spouse/ Significant Other Smoking Status: Never smoker Alcohol: None Drugs: None - Family History Maternal Family History: Family History (Last Reviewed 11/21/19 @ 10:52 by Holly Calzada) Mother CVA (cerebral vascular accident) Sister Hypertension Sibling Family History: Family History (Last Reviewed 11/21/19 @ 10:52 by Holly Calzada) Mother CVA (cerebral vascular accident) Sister Hypertension Family History: Reports: Hypertension Paternal Family History: Family History (Last Reviewed 11/21/19 @ 10:52 by Holly Calzada) Mother CVA (cerebral vascular accident) Sister Hypertension Family History: Reports: No pertinent history Review of Systems General: Reports: Malaise. Denies: Chills, Fever, Sweats Eyes: Denies: Visual changes - bilaterally, Diplopia ENT: Denies: Rhinorrhea, Sore throat Cardiovascular: Denies: Chest pain, Palpitations Respiratory: Denies: Dyspnea, Cough, Dyspnea on exertion Gastrointestinal: Reports: Abdominal pain. Denies: Nausea, Vomiting, Diarrhea, Melena, Hematochezia Genitourinary: Denies: Dysuria, Hematuria, Frequency Musculoskeletal: Denies: Back pain, Extremity Pain Skin: Denies: Rash, Wounds Neurological: Denies: Headache, Weakness, Numbness Physical Exam Vital Signs/Narrative: Vital Signs Temp Pulse Resp Pulse Ox 03/23/20 05:23 97.0 F L 61 18 98 Inital Vital Signs reviewed: Yes General: Well nourished, Well developed, No Acute Distress Head: Normocephalic, Atraumatic Eyes: Perrl, EOMI ENT: Moist mucous membranes, No rhinorrhea Neck: Supple, Nontender Cardiovascular: Regular rate, Regular rhythm, No murmurs Respiratory: No distress, CTA bilaterally, Chest nontender Abdomen: Soft, Nondistended, Normal bowel sounds, - - Diffuse TTP without rebound or guarding. Back: Nontender, Normal Inspection Extremities: Nontender, No edema Skin: Normal color, No rash Neurological: Alert, Oriented x3, Cranial nerves II-XII grossly intact, Normal Strength, Normal Sensation Psychological: Normal affect, Normal Mood Diagnostic/Tx/Re-eval - Medical Decision Making Appears ill but nontoxic upon arrival. Significant diarrhea. Occult blood positive. Hemoglobin stable. Patient initially hypotensive and given fluid resuscitation. Patient typed and crossed for blood but will not be transfused at this time. Patient's blood pressure improving after fluid bolus and started on maintenance. Abdomen pelvis shows concern for enteritis. Patient has elevated lactic acidosis. Evidence also of acute renal insufficiency as well as elevated troponin. No ischemia on EKG. Coronavirus positive. Patient will be admitted to the intensive care unit for further treatment and management. Impression: 1. COVID-19 2. Septic shock 3. Elevated troponin 4. Acute renal insufficiency 5. Diarrhea - Critical Care Time Critical care time (excluding procedures): 30-74 minutes, Discussing w/Patient &/or Family/Claims Coordinator, Discussing w/Consultants, Arranging Admission or Transfer, Performing Direct Patient Care at Bedside ED Disposition - Plan for ED Patient: Disposition: Acute Care [facility]
[2020-03-23 05:45] LABS: Absolute Lymphocyte Count 0.91 X10^3/uL (0.83-4.51); Absolute Neutrophil Count 5.7 X10^3/uL (2.0-7.7); Basophil# 0.01 X10^3/uL; Basophil% 0.1 % (0-1); Eosinophil# 0.05 X10^3/uL; Eosinophils% 0.7 % (0-5); Hematocrit 34.4 % (40-54); Hemoglobin 11.2 g/dL (13.0-16.5); Lymphocyte # 0.91 X10^3/ul (4.0); Lymphocyte % 13.2 % (19-41); Mean Corp Hgb Conc 32.6 g/dL (32-36); Mean Corpuscular Hgb 32.5 pg (27.0-32.0); Mean Corpuscular Volume 99.7 fL (80-94); Mean Platelet Vol. 9.5 fl (6.2-12.0); Monocyte# 0.17 X10^3/uL; Monocyte% 2.5 % (0-10); NRBC Flagged by Analyzer 0 % (0-5); Neutrophil % 82.9 % (47-70); Platelet Count 316 K/mm3 (150-450); RBC Distribution Width CV 15.2 % (11.6-14.6); RBC Distribution Width SD 55.1 fl (35.1-43.9); Red Blood Count 3.45 M/mm3 (4.6-6.2); White Blood Count 6.9 K/mm3 (4.4-11.0)
[2020-03-23 06:02] LABS: ALB/GLOB Ratio 0.8 RATIO (0.9-2.4); AST(SGOT) 71 U/L (15-37); Alanine Aminotransfer ALT/SGPT 50 U/L (16-61); Alkaline Phosphatase 133 U/L (45-117); Anion Gap 11 (5-15); BUN 40 mg/dL (7-18); Calcium,Total 8.9 mg/dL (8.5-10.1); Chloride 103 mmol/L (98-107); Creatinine, Serum 1.48 mg/dL (0.70-1.30); EST Glomerular Filtration Rate 48 mL/min (>60); Est Glom Filt Rate - Afr Amer 58 mL/min (>60); Estimated Creatinine Clearance 31.69 ml/min; Globulin 3.7 g/dL (2.2-4.2); Glucose 196 mg/dL (74-106); Potassium 3.3 mmol/L (3.5-5.1); Protein, Total 6.7 g/dL (6.4-8.2); Sodium Level 137 mmol/L (136-145)
[2020-03-23 06:21] LABS: Prothrombin Time (Protime)PT. 13.1 SECONDS (11.7-14.9)
[2020-03-23 06:22] LABS: Partial Thromboplast Time 27.7 Seconds (24.1-36.2)
[2020-03-23 06:25] LABS: Lactic Acid 4.4 mmol/L (0.4-1.9)
[2020-03-23 06:55] LABS: Bacteria 0 SEEN /hpf (None Seen); Mucous, Urine 0 SEEN /hpf (<or=2+); Squamous Epithelial Cells - UA 0 SEEN /hpf (0-5); White Blood Cells 0 SEEN /hpf (0-5)
[2020-03-23 06:57] LABS: Color, Urine Yellow (Yellow); Glucose, Dipstick Normal (Normal); Ketone-Dipstick 5 mg/dl (Negative); Leukocyte Esterase-Dipstick Negative /ul (Negative); Nitrite-Dipstick Negative (Negative); Occult Blood-Urine Negative /ul (Negative); Protein-Dipstick 30 mg/dl (Negative); Urine Bilirubin Dipstick Negative (Negative); Urine Clarity Clear (Clear); Urine Urobilinogen Normal (Normal)
[2020-03-23 07:02] LABS: Red Blood Cells-Urine 0-5 SEEN /hpf (0-5)
--- NOTE | 2020-03-23 07:26 | NURSING ---
DR ANTONY GONZALEZ
[2020-03-23] MEDS: 0.9% Normal Saline 1,000 ML 150 ML IV (08:08)
--- NOTE | 2020-03-23 08:21 | NURSING ---
ICU [facility] SEPTIC SHOCK, JUAN PABLO, COVID
--- NOTE | 2020-03-23 08:29 | NURSING ---
CV ICU 203
[2020-03-23 09:43] LABS: Reflex Lactate? Y
[2020-03-23] MEDS: dexAMETHasone 10 MG/ML Vial IV (10:00)
--- NOTE | 2020-03-23 11:43 | RAD_ITS ---
STUDY: X-RAY CHEST REASON FOR EXAM: Male, 84 years old. Weakness, septic shock, COVID 19. TECHNIQUE: Single frontal view of the chest. COMPARISON: 03/01/2020 FINDINGS: Low-volume inspiration with diffuse interstitial pattern and interval development of new opacities in both bases with a peripheral predominance on the left. Findings are compatible with interval development of pneumonia. There is no demonstrated pleural abnormality. Stable cardiomegaly. Normal mediastinum and terry. Normal visualized pulmonary arteries. Normal visualized aortic arch and descending thoracic aorta. Normal visualized thoracic spine. Normal visualized ribs, clavicles, and shoulders. There is no demonstrated abnormality of the visualized soft tissue structures of the upper abdomen. RAD/Chest 1 View (Portable) IMPRESSION: Cardiomegaly with low volume inspiration and interval development of bilateral pulmonary opacities, right slightly greater than left. Findings are compatible with atypical pneumonia with COVID 19 a consideration. Electronically Signed: Neftali Duff MD at 15:41 EST , Service support ,
--- NOTE | 2020-03-23 11:44 | PCM.HP.STD ---
Problem List (1) Acute diarrheal illness Status: Acute (2) Pneumonia due to COVID-19 virus Status: Acute (3) Septic shock Status: Acute (4) Neuropathy Status: Chronic (5) PAD (peripheral artery disease) Status: Chronic (6) Rectal prolapse Status: Chronic (7) Atherosclerotic heart disease of [place] coronary artery without angina pectoris Status: Chronic Qualifiers: (8) History of coronary artery stent placement Status: Chronic Comment: PCI-Stent to mid RCA 08/06/04; cutting balloon angioplasty with TAMERA to mid RCA 02/19; WTM-Brlix-KGY-of RCA 06/18/09; PCI/TAMERA to Ostial PDA and PCI-ISR RCA 09/03/13; PCI/ATMERA ISR of mid RCA 10/07/15; FFR mid LAD 0.86 10/08/15 (9) Essential (primary) hypertension Status: Chronic (10) Hyperlipidemia Status: Chronic Qualifiers: History of Present Illness Date of Admission: 03/23/20 Chief Complaint: Weakness, abdominal pain. The patient is a 84 year old M with past medical history as mentioned above presented to the emergency room because of multiple complaints including generalized weakness, abdominal pain and diarrhea. The patient is poor informant and was not able to provide detailed consistent history. He mentioned that he got sick 3 days ago mainly with generalized weakness and fatigue, difficulty ambulating and complaint of abdominal pain. Reportedly, his mentioned that patient has been acting strangely and he was confused at times. Currently, patient is alert and noted x3. He complained of vague abdominal pain that has been going on for 3 days, not radiating and associated with diarrhea. He denied fever or chills. He denied cough or sputum production. He denied chest pain or shortness of breath. He had a history of CAD status post stents and he has been on aspirin, statins, lisinopril and metoprolol. He had a history of hypertension which has been under control on Norvasc and metoprolol. He had a history of peripheral vascular disease with chronic bilateral leg ulcers and he has been following up with wound care center about the chronic leg ulcers. In the emergency department, patient was initially hypotensive, received bolus of IV fluids and blood pressure improved. He was afebrile, heart rate stable, pulse ox was 95% on room air. Routine blood work was remarkable for hemoglobin of 11.2 g/dL, potassium was 3.3, BUN is 40, creatinine is 1.48, blood glucose was 196. Troponin was 0.054. Lactic acid was 4.4. Urinalysis showed no evidence of acute infection. COVID-[address] antigens [address] back [address] scan abdomen and pelvis with IV contrast revealed prominent small bowel and colonic fluid, mild basilar lung infiltrate. EKG revealed normal sinus rhythm with PACs, no acute ischemic changes. He is being admitted for septic shock, acute COVID-19 infection, acute kidney injury, abnormal cardiac enzymes and hyperglycemia. Past Medical History Past Medical History (Chronic Problems): Chronic Problems (Last Updated 03/23/20 @ 11:[address] 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) Debility (Chronic) Delayed wound healing (Chronic) PAD (peripheral artery disease) (Chronic) Debility (Chronic) Rectal prolapse (Chronic) Atherosclerotic heart disease of [place] coronary artery without angina pectoris (Chronic) History of coronary artery stent placement (Chronic 10/07/15) PCI-Stent to mid RCA 08/06/04; cutting balloon angioplasty with TAMERA to mid RCA 02/19; JZG-Eddlb-LTJ-of RCA 06/18/09; PCI/TAMERA to Ostial PDA and PCI-ISR RCA 09/03/13; PCI/TAMERA ISR of mid RCA 10/07/15; FFR mid LAD 0.86 10/08/15 Peripheral arterial occlusive disease (Chronic) SFA PTCA/Stent 08/2012; Stent to distal RSFA to popliteal, Stent-Prox RSFA 10/23/13 Right bundle branch block (RBBB) (Chronic) Essential (primary) hypertension (Chronic) Hyperlipidemia (Chronic) Medical History: Medical History (Last Updated 03/23/20 @ 11:[address] Audrey Tolliver MD) Debility (Chronic) R53.81 Atherosclerotic heart disease of [place] coronary artery without angina pectoris (Chronic) I25.10 Peripheral arterial occlusive disease (Chronic) I77.9 SFA PTCA/Stent 08/2012; Stent to distal RSFA to popliteal, Stent-Prox RSFA 10/23/13 Essential (primary) hypertension (Chronic) I10 Hyperlipidemia (Chronic) E78.5 Chronic pain of right heel M79.671, G89.29 DDD (degenerative disc disease) Diastolic dysfunction I51.89 GERD (gastroesophageal reflux disease) K21.9 Lumbar radiculopathy M54.16 Lumbar stenosis M48.061 Obstructive sleep apnea G47.33 Peripheral neuropathy G62.9 Peripheral neuropathy G62.9 Premature atrial contractions I49.1 Prostate cancer C61 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 Rectal prolapse (Inactive) K62.3 Syncope Onset Date: 02/2018 R55 Ulcer of right heel L97.419 Ulcer of right lower extremity with fat layer exposed L97.912 Urinary incontinence (Inactive) R32 Allergies carisoprodol Allergy (Verified 03/23/20 05:31) Other itraconazole Allergy (Verified 03/23/20 05:31) Other Home Medications: Ambulatory Orders Medication Instructions Recorded Omeprazole [Prilosec] 20 mg PO DAILY 10/07/15 Multivit-Min/FA/Lycopen/Lutein 1 tab PO DAILY 02/14/18 [Centrum Silver Men Tablet] Vitamin E 400 unit PO DAILY 10/29/18 duloxetine 30 mg capsule,delayed 30 mg PO DAILY 03/06/19 release atorvastatin 20 mg tablet 20 mg PO QHS #90 tab 06/10/19 lisinopril 20 mg tablet 20 mg PO DAILY #90 tab 09/30/19 acetaminophen 500 mg tablet 500 mg PO TID tab 01/30/20 Aspirin [Aspirin EC] 81 mg PO DAILY 02/25/20 Metoprolol(XL)Succ [Toprol Xl 12.5 mg PO DAILY 02/25/20 (Beta Koko)] Potassium Chloride 10 meq PO DAILY 02/25/20 nitroglycerin 0.4 mg sublingual 0.4 mg PO Q5-15M PRN #25 tab 02/25/20 tablet Amlodipine [Norvasc] 10 mg PO DAILY 03/19/20 Orphenadrine [Norflex ER] 100 mg PO DAILY 03/19/20 Ferrous Gluconate 324 mg PO DAILY 03/23/20 Surgical History: Surgical History (Last Updated 03/23/20 @ 11:[address] Audrey Tolliver MD) History of coronary artery stent placement (Chronic) Onset Date: 10/07/15 Z95.5 PCI-Stent to mid RCA 08/06/04; cutting balloon angioplasty with TAMERA to mid RCA 02/19; QTE-Iyamf-LMB-of RCA 06/18/09; PCI/TAMERA to Ostial PDA and PCI-ISR RCA 09/03/13; PCI/TAMERA ISR of mid RCA 10/07/15; FFR mid LAD 0.86 10/08/15 History of left heart catheterization Onset Date: 07/02/19 Z98.890 Coronary artery disease with evidence of previously stented right coronary artery which is totally occluded with atyo-fr-vcljj collaterals and fairly preserved left ventricular systolic function. RECOMMENDATIONS: Medical therapy History of angioplasty of peripheral vessel Onset Date: 10/23/13 Z98.62 Right Femoral Artery PTCA/Stent 08/2012; angioplasty and stenting of the Rt SFA @ [facility] per Dr. Zapata; Stent to distal RSFA to popliteal, Stent Rt. Proximal SFA 10/23/13 History of back surgery Z98.890 History of hernia repair Z98.890, Z87.19 History of prostatectomy Z90.79 with radiation History of shoulder surgery Z98.890 History of tonsillectomy Z90.89 Surgical History: rotator cuff repair, tonsillectomy, - - The patient is undergone lumbar surgery in the past. He has a history of bilateral shoulder surgery. He has had coronary stents placed, and to proceed stenting was performed in the right lower extremity. Psychiatric History: No pertinent psych hx Lives: Spouse/ Significant Other Smoking Status: Never smoker Alcohol: None Drugs: None - *Family History Maternal Family History: Family History (Last Reviewed 11/21/19 @ 10:52 by Holly Calzada) Mother CVA (cerebral vascular accident) Sister Hypertension Review of Systems Constitutional: Reports: Anorexia, Weakness, Fatigue. Denies: Chills, Fever Eyes: Denies: Blurred vision, Double vision, Drainage, Redness HEENT: Denies: Difficulty Hearing, Ear Pain, Eye Pain, Nasal Congestion, Sore Throat Cardiovascular: Denies: Chest Pain, Chest Pressure, Heaviness, Light Headedness, Palpitations, Syncope Respiratory: Denies: Cough, Pleuritic Pain, Shortness of Breath, Sputum production, Wheezing Gastrointestinal: Reports: Abdominal Pain, Diarrhea. Denies: Constipation, Nausea, Vomiting Genitourinary: Denies: Dysuria, Frequency, Hematuria Musculoskeletal: Denies: Arm Pain, Back Pain, Foot Pain Skin: Denies: Dryness, Rash Neurological: Denies: Balance problems, Double vision, Change in Speech, Confusion, Headaches, Numbness Psychiatric: Denies: Anxiety, Depression Endocrine: Denies: Change in Body Habitus, Polydipsia, Polyuria VTE Information - Inpt Only VTE Present on Admission: No VTE Mechan Device Prophylaxis: None VTE Pharm Prophylaxis ordered?: Yes Patient Problems: Active and Suspected Problems (Last Updated 03/23/20 @ 11:[address] Audrey Tolliver MD) Acute diarrheal illness (Acute) Pneumonia due to COVID-19 virus (Acute) Septic shock (Acute) - Physical Exam Vitals/I&O's: Vital Signs Temp Pulse Resp BP Pulse Ox 98.2 F 70 14 118/52 L 95 03/23/20 10:02 03/23/20 10:02 03/23/20 10:02 03/23/20 10:02 03/23/20 10:02 Oxygen Delivery Method Room Air Weight: 130 lb Body Mass Index (BMI) 21.6 Intake and Output for Last 24 Hours 03/21/20 03/22/20 03/23/20 23:59 23:59 23:59 Intake Total 1057.5 / 1057.5 Balance 1057.5 / 1057.5 General: Alert, Oriented x3, Cooperative, No apparent distress HEENT: Atraumatic, PERRLA, EOMI, Normocephalic Oral: Moist Mucosa, No Gingival or Mucosal Lesions/ Ulcerations Neck: Supple, No JVD, Negative Carotid Bruits, Trachea Midline, Thyroid Normal Size and Texture Lungs: Clear to auscultation, No rhonchi, No wheeze, No rales, Diminished Cardiovascular: Regular rate, Regular Rhythm, Normal S1, Normal S2, No murmurs Abdomen: Bowel Sounds Present, Soft, Non Tender, Non-Distended, No Hepato-splenomegaly Extremities: No clubbing, No cyanosis, No edema Skin: No rashes, Ulcer/ Wound Lymphatic: No Cervical, Supraclavicular, or Inguinal Adenopathy Neurological: Cranial nerves II-XII grossly intact, Motor Exam 5/5 strength throughout Psych/Mental Status: Normal Affect, Appropriate, Alert and oriented to time, place, person, mood and affect Microbiology Past 72 Hours 03/23/20 07:43 Mucosa - Nose SARS-CoV-2 Antigen (Rapid) - Final SARS-CoV-2 (COVID 19) 03/23/20 05:53 Stool Stool Occult Blood (MERRICK) - Final Occult Blood Positive Laboratory Results 03/23/20 05:35: WBC 6.9, RBC 3.45 L, Hgb 11.2 L, Hct 34.4 L, MCV 99.7 H, MCH 32.5 H, MCHC 32.6, RDW Std Deviation 55.1 H, RDW Coeff of Ayesha 15.2 H, Plt Count 316, MPV 9.5, Immature Gran % (Auto) 0.600, Neut % (Auto) 82.9 H, Lymph % (Auto) 13.2 L, Gregg % (Auto) 2.5, Eos % (Auto) 0.7, Baso % (Auto) 0.1, Absolute Neuts (auto) 5.7, Absolute Lymphs (auto) 0.91, Nucleated RBC % 0 03/23/20 05:35: Sodium 137, Potassium 3.3 L, Chloride 103, Carbon Dioxide 23.0, Anion Gap 11, BUN 40 H, Creatinine 1.48 H, Estim Creat Clear Calc 31.69, Est GFR (MDRD) Af Amer 58 L, Est GFR (MDRD) Non-Af 48 L, BUN/Creatinine Ratio 27.0 H, Glucose 196 H, Calcium 8.9, Total Bilirubin 0.30, AST 71 H, ALT 50, Alkaline Phosphatase 133 H, Troponin I 0.054 H, Total Protein 6.7, Albumin 3.0 L, Globulin 3.7, Albumin/Globulin Ratio 0.8 L 03/23/20 05:35: Lactic Acid 4.4 H* 03/23/20 05:35: PT 13.1, INR 1.0, APTT 27.7 03/23/20 05:35: Blood Type A POSITIVE, Antibody Screen NEGATIVE 03/23/20 05:35: Crossmatch See Detail 03/23/20 06:40: Urine Color Yellow, Urine Clarity Clear, Urine pH 6.0, Ur Specific [place] 1.010, Urine Protein 30 H, Urine Glucose (UA) Normal, Urine Ketones 5 H, Urine Occult Blood Negative, Urine Nitrite Negative, Urine Bilirubin Negative, Urine Urobilinogen Normal, Ur Leukocyte Esterase Negative, Urine RBC 0-5 SEEN, Urine WBC 0 SEEN, Ur Squamous Epith Cells 0 SEEN, Urine Bacteria 0 SEEN, Urine Mucus 0 SEEN 03/23/20 10:30: Lactic Acid Pending Clinical Impression(s) from Imaging Studies Abdomen/Pelvis CT 03/23/20 05:30 IMPRESSION: 1. Prominent small bowel and colonic fluid, a nonspecific finding which can be seen with enteritis. 2. Mild basilar infiltrates, nonspecific but possibly infection. 3. Additional findings above. Individualized dose optimization techniques were used for this CT. at 0644 Reported and signed by: Angelica Quinteros MD Electronically Signed: Angelica Quinteros MD at 6:44 EST Tel , Service support , Current Medications Acetaminophen (Acetaminophen 325 Mg Tablet) 650 mg PO Q6H PRN PRN PRN Reason: Pain Score 1-10/Temp > 100.7 F Aspirin (Aspirin E.C. 81 Mg Tablet) 81 mg PO DAILY [facility] Atorvastatin Calcium (Atorvastatin Calcium 20 Mg Tablet) 20 mg PO DAILY [facility] Dexamethasone (Dexamethasone 4 Mg Tablet) 6 mg PO DAILY [facility] Duloxetine HCl (Duloxetine Hcl 30 Mg Capsule) 30 mg PO DAILY [facility] Enoxaparin Sodium (Enoxaparin 30 Mg/0.3 Ml Syringe) 30 mg SC BID [facility] Ferrous Gluconate (Ferrous Gluconate 324 Mg Tablet) 324 mg PO DAILY [facility] Sodium Chloride () 250 mls @ 15 mls/hr IV .[id number] PRN PRN Reason: Saline Flush Sodium Chloride () 250 mls @ 15 mls/hr IV .[id number] PRN PRN Reason: Additional IVPB Infusion Sodium Chloride () 1,000 mls @ 100 mls/hr IV .Q10H [id number] Stop: 03/24/20 07:44 Metoprolol Succinate (Metoprolol(Xl)Succ 25 Mg Tablet) 12.5 mg PO DAILY [facility] Ondansetron HCl (Ondansetron 4 Mg/2 Ml Vial) 4 mg IV Q8H PRN PRN PRN Reason: NAUSEA/VOMITING Orphenadrine Citrate (Orphenadrine 100 Mg Tablet) 100 mg PO DAILY LYNDSAY Pantoprazole Sodium (Pantoprazole Sodium 20 Mg Tablet) 20 mg PO DAILY [facility] Sodium Chloride (0.9% Saline Lock 10 Ml Syringe) 10 - 40 ml IV UD PRN PRN Reason: SALINE FLUSH Assessment/Plan All Active Problems (Last Updated 03/23/20 @ 11:[address] Audrey Tolliver MD) Acute diarrheal illness (Acute) Acute kidney injury (Acute) Pneumonia due to COVID-19 virus (Acute) Septic shock (Acute) This is an 84 years old male patient presented to the emergency room because of weakness, fatigue, abdominal pain and diarrhea and he was found to have septic shock, tested positive for COVID-19 antigens and also found to have acute kidney injury and abnormal cardiac enzymes. #1 septic shock: Could be due to COVID-19 pneumonia versus severe dehydration secondary to diarrhea. Lactic acid is 4.4. Initially, patient was hypotensive but improved with IV fluid bolus. He has been afebrile, no leukocytosis. Plan: Admit to ICU, critical care monitoring, complete bedrest, maintenance IV fluids, blood culture, urine culture, urinalysis, repeat lactic acid in 3 hours, critical care consult, repeat CBC and CMP tomorrow morning, PT OT evaluation and treatment. #2 COVID-19 pneumonia: COVID-19 antigen came back positive[address] CT scan abdomen revealed mild bilateral basilar infiltrate. Currently, patient is afebrile, no leukocytosis, on room air. Plan: Chest x-ray, oxygen by nasal cannula, COVID-19 PCR to confirm, infectious disease consult, start IV Decadron. #3 acute kidney injury: Probably due to acute dialysis, dehydration. Baseline kidney function is normal. Plan: Gentle IV fluids for hydration, input output chart, repeat BMP tomorrow morning. #4 abnormal cardiac enzymes: EKG reviewed, no acute ischemic changes. Patient denied any chest pain. Could be due to demand ischemia. Plan for cardiac enzymes, continue aspirin and statins as well as beta-blockers. #5 hyperglycemia: Without history of diabetes. Plan: Accu-Cheks, insulin sliding scale, check hemoglobin A1c. #6 acute diarrheal illness: Could be due to COVID-19 itself. Plan: Stool for enteric pathogens, stool for C. difficile. #7 CAD status post stents: EKG reviewed as above. Continue aspirin, Lipitor, metoprolol, hold lisinopril because of acute kidney injury. #8 hypertension: Initially, patient was hypotensive, improved with IV fluids. Plan to hold lisinopril and Norvasc, continue metoprolol. #9 peripheral vascular disease/chronic bilateral leg ulcers: Without obvious evidence of acute infection. Will consult wound care nurse. #10 hyperlipidemia: Continue statins. #11 DVT prophylaxis: Subcu Lovenox twice daily. This note was generated with [employer] dictation software. It may contain incorrect words, spelling, and punctuation that were not noted in checking the note before signing. Inpatient E&M: 09547 Init Hosp L3
[2020-03-23 12:03] LABS: Lactic Acid 1.4 mmol/L (0.4-1.9)
[2020-03-23 12:50] LABS: Hemoglobin A1c 5.6 % (3.8-5.6)
[2020-03-23 12:55] LABS: CPK Total, Creatine Kinase 474 U/L (39-308); LDH 253 U/L (87-241)
[2020-03-23] MEDS: Ferrous Gluconate 324 MG Tablet PO (13:35)
[2020-03-23] MEDS: Aspirin E.C. 81 MG Tablet PO (13:35)
[2020-03-23] MEDS: Enoxaparin 30 MG/0.3 ML Syringe SC ×2 (13:35→20:56)
[2020-03-23] MEDS: Pantoprazole Sodium 20 MG Tablet PO (13:35)
[2020-03-23] MEDS: DULoxetine Hcl 30 MG Capsule PO (13:35)
[2020-03-23 14:17] LABS: Bacteria 0 SEEN /hpf (None Seen); Mucous, Urine 0 SEEN /hpf (<or=2+); Red Blood Cells-Urine 0 SEEN /hpf (0-5); Squamous Epithelial Cells - UA 0 SEEN /hpf (0-5); White Blood Cells 0 SEEN /hpf (0-5)
[2020-03-23] MEDS: 0.9% Normal Saline 1,000 ML 100 ML IV (14:18)
[2020-03-23 14:21] LABS: Color, Urine Yellow (Yellow); Glucose, Dipstick Normal (Normal); Ketone-Dipstick Negative (Negative); Leukocyte Esterase-Dipstick Negative /ul (Negative); Nitrite-Dipstick Negative (Negative); Occult Blood-Urine 25 /ul (Negative); Protein-Dipstick 30 mg/dl (Negative); Urine Bilirubin Dipstick Negative (Negative); Urine Clarity Clear (Clear); Urine Urobilinogen Normal (Normal)
--- NOTE | 2020-03-23 15:58 | CON.PCM_ITS ---
Problem List (1) Pneumonia due to COVID-19 virus Status: Acute Reason for Consult: kylee Consulted by: Dr. Tolliver History of Present Illness: The patient is a 84 year old M presented 03/23 with several days of dyspnea, headache, change in taste/smell, aches, weakness. Covid Ag (+). Lives with who has been feeling ok. Came to ED, reported some diarrhea and abd pain, admitted on dex. Sat initially 95% on RA. Feeling better today. Full ROS performed and neg except as noted above. - Medical History Past Medical History (Chronic Problems): Chronic Problems (Last Updated 03/23/20 @ 11:[address] 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) Debility (Chronic) Delayed wound healing (Chronic) PAD (peripheral artery disease) (Chronic) Debility (Chronic) Rectal prolapse (Chronic) Atherosclerotic heart disease of [place] coronary artery without angina pectoris (Chronic) History of coronary artery stent placement (Chronic 10/07/15) PCI-Stent to mid RCA 08/06/04; cutting balloon angioplasty with TAMERA to mid RCA 02/19; [id number]-of RCA 06/18/09; PCI/TAMERA to Ostial PDA and PCI-ISR RCA 09/03/13; PCI/TAMERA ISR of mid RCA 10/07/15; FFR mid LAD 0.86 10/08/15 Peripheral arterial occlusive disease (Chronic) SFA PTCA/Stent 08/2012; Stent to distal RSFA to popliteal, Stent-Prox RSFA 10/23/13 Right bundle branch block (RBBB) (Chronic) Essential (primary) hypertension (Chronic) Hyperlipidemia (Chronic) Allergies/Adverse Reactions: Allergies carisoprodol Allergy (Verified 03/23/20 05:31) Other itraconazole Allergy (Verified 03/23/20 05:31) Other Home Medications: Ambulatory Orders Medication Instructions Recorded Omeprazole [Prilosec] 20 mg PO DAILY 10/07/15 Multivit-Min/FA/Lycopen/Lutein 1 tab PO DAILY 02/14/18 [Centrum Silver Men Tablet] Vitamin E 400 unit PO DAILY 10/29/18 duloxetine 30 mg capsule,delayed 30 mg PO DAILY 03/06/19 release atorvastatin 20 mg tablet 20 mg PO QHS #90 tab 06/10/19 lisinopril 20 mg tablet 20 mg PO DAILY #90 tab 09/30/19 acetaminophen 500 mg tablet 500 mg PO TID tab 01/30/20 Aspirin [Aspirin EC] 81 mg PO DAILY 02/25/20 Metoprolol(XL)Succ [Toprol Xl 12.5 mg PO DAILY 02/25/20 (Beta Koko)] Potassium Chloride 10 meq PO DAILY 02/25/20 nitroglycerin 0.4 mg sublingual 0.4 mg PO Q5-15M PRN #25 tab 02/25/20 tablet Amlodipine [Norvasc] 10 mg PO DAILY 03/19/20 Orphenadrine [Norflex ER] 100 mg PO DAILY 03/19/20 Ferrous Gluconate 324 mg PO DAILY 03/23/20 - Social History Tobacco Use: non-smoker Vital Signs Temp Pulse Resp BP Pulse Ox 97.7 F L 82 16 152/65 H 94 03/23/20 12:00 03/23/20 15:00 03/23/20 15:00 03/23/20 15:00 03/23/20 15:00 Oxygen Delivery Method Room Air Weight: 58.967 kg Body Mass Index (BMI) 21.6 Microbiology Past 72 Hours 03/23/20 12:05 Enteric Bacteriology - Final Stool C. difficile DNA Amplification - Final 03/23/20 07:43 SARS-CoV-2 Antigen (Rapid) - Final Mucosa - Nose SARS-CoV-2 (COVID 19) 03/23/20 05:53 Stool Occult Blood (MERRICK) - Final Stool Occult Blood Positive Laboratory Tests Past 24 Hrs 03/23/20 03/23/20 03/23/20 05:35 05:35 05:35 WBC 6.9 RBC 3.45 L Hgb 11.2 L Hct 34.4 L MCV 99.7 H MCH 32.5 H MCHC 32.6 RDW Std Deviation 55.1 H RDW Coeff of Ayesha 15.2 H Plt Count 316 MPV 9.5 Immature Gran % (Auto) 0.600 Neut % (Auto) 82.9 H Lymph % (Auto) 13.2 L Jones % (Auto) 2.5 Eos % (Auto) 0.7 Baso % (Auto) 0.1 Absolute Neuts (auto) 5.7 Absolute Lymphs (auto) 0.91 Nucleated RBC % 0 PT INR APTT D-Dimer Quant (PE/DVT) Sodium 137 Potassium 3.3 L Chloride 103 Carbon Dioxide 23.0 Anion Gap 11 BUN 40 H Creatinine 1.48 H Estim Creat Clear Calc 31.69 Est GFR (MDRD) Af Amer 58 L Est GFR (MDRD) Non-Af 48 L BUN/Creatinine Ratio 27.0 H Glucose 196 H Hemoglobin A1c Lactic Acid 4.4 H* Calcium 8.9 Total Bilirubin 0.30 AST 71 H ALT 50 Alkaline Phosphatase 133 H Lactate Dehydrogenase Total Creatine Kinase Troponin I 0.054 H Total Protein 6.7 Albumin 3.0 L Globulin 3.7 Albumin/Globulin Ratio 0.8 L Urine Color Urine Clarity Urine pH Ur Specific [place] Urine Protein Urine Glucose (UA) Urine Ketones Urine Occult Blood Urine Nitrite Urine Bilirubin Urine Urobilinogen Ur Leukocyte Esterase Urine RBC Urine WBC Ur Squamous Epith Cells Urine Bacteria Urine Mucus COVID-19 (TYLER) Blood Type Antibody Screen Crossmatch 03/23/20 03/23/20 03/23/20 05:35 05:35 05:35 WBC RBC Hgb Hct MCV MCH MCHC RDW Std Deviation RDW Coeff of Ayesha Plt Count MPV Immature Gran % (Auto) Neut % (Auto) Lymph % (Auto) Jones % (Auto) Eos % (Auto) Baso % (Auto) Absolute Neuts (auto) Absolute Lymphs (auto) Nucleated RBC % PT 13.1 INR 1.0 APTT 27.7 D-Dimer Quant (PE/DVT) Sodium Potassium Chloride Carbon Dioxide Anion Gap BUN Creatinine Estim Creat Clear Calc Est GFR (MDRD) Af Amer Est GFR (MDRD) Non-Af BUN/Creatinine Ratio Glucose Hemoglobin A1c Lactic Acid Calcium Total Bilirubin AST ALT Alkaline Phosphatase Lactate Dehydrogenase Total Creatine Kinase Troponin I Total Protein Albumin Globulin Albumin/Globulin Ratio Urine Color Urine Clarity Urine pH Ur Specific [place] Urine Protein Urine Glucose (UA) Urine Ketones Urine Occult Blood Urine Nitrite Urine Bilirubin Urine Urobilinogen Ur Leukocyte Esterase Urine RBC Urine WBC Ur Squamous Epith Cells Urine Bacteria Urine Mucus COVID-19 (TYLER) Blood Type A POSITIVE Antibody Screen NEGATIVE Crossmatch See Detail 03/23/20 03/23/20 03/23/20 06:40 10:30 12:05 WBC RBC Hgb Hct MCV MCH MCHC RDW Std Deviation RDW Coeff of Ayesha Plt Count MPV Immature Gran % (Auto) Neut % (Auto) Lymph % (Auto) Jones % (Auto) Eos % (Auto) Baso % (Auto) Absolute Neuts (auto) Absolute Lymphs (auto) Nucleated RBC % PT INR APTT D-Dimer Quant (PE/DVT) 6.50 H* Sodium Potassium Chloride Carbon Dioxide Anion Gap BUN Creatinine Estim Creat Clear Calc Est GFR (MDRD) Af Amer Est GFR (MDRD) Non-Af BUN/Creatinine Ratio Glucose Hemoglobin A1c Lactic Acid 1.4 Calcium Total Bilirubin AST ALT Alkaline Phosphatase Lactate Dehydrogenase Total Creatine Kinase Troponin I Total Protein Albumin Globulin Albumin/Globulin Ratio Urine Color Yellow Urine Clarity Clear Urine pH 6.0 Ur Specific [place] 1.010 Urine Protein 30 H Urine Glucose (UA) Normal Urine Ketones 5 H Urine Occult Blood Negative Urine Nitrite Negative Urine Bilirubin Negative Urine Urobilinogen Normal Ur Leukocyte Esterase Negative Urine RBC 0-5 SEEN Urine WBC 0 SEEN Ur Squamous Epith Cells 0 SEEN Urine Bacteria 0 SEEN Urine Mucus 0 SEEN COVID-19 (TYLER) Blood Type Antibody Screen Crossmatch 03/23/20 03/23/20 03/23/20 12:05 12:05 13:35 WBC RBC Hgb Hct MCV MCH MCHC RDW Std Deviation RDW Coeff of Ayesha Plt Count MPV Immature Gran % (Auto) Neut % (Auto) Lymph % (Auto) Jones % (Auto) Eos % (Auto) Baso % (Auto) Absolute Neuts (auto) Absolute Lymphs (auto) Nucleated RBC % PT INR APTT D-Dimer Quant (PE/DVT) Sodium Potassium Chloride Carbon Dioxide Anion Gap BUN Creatinine Estim Creat Clear Calc Est GFR (MDRD) Af Amer Est GFR (MDRD) Non-Af BUN/Creatinine Ratio Glucose Hemoglobin A1c 5.6 Lactic Acid Calcium Total Bilirubin AST ALT Alkaline Phosphatase Lactate Dehydrogenase 253 H Total Creatine Kinase 474 H Troponin I 0.038 Total Protein Albumin Globulin Albumin/Globulin Ratio Urine Color Urine Clarity Urine pH Ur Specific [place] Urine Protein Urine Glucose (UA) Urine Ketones Urine Occult Blood Urine Nitrite Urine Bilirubin Urine Urobilinogen Ur Leukocyte Esterase Urine RBC Urine WBC Ur Squamous Epith Cells Urine Bacteria Urine Mucus COVID-19 (TYLER) Pending Blood Type Antibody Screen Crossmatch 03/23/20 03/23/20 14:05 15:40 WBC RBC Hgb Hct MCV MCH MCHC RDW Std Deviation RDW Coeff of Ayesha Plt Count MPV Immature Gran % (Auto) Neut % (Auto) Lymph % (Auto) Jones % (Auto) Eos % (Auto) Baso % (Auto) Absolute Neuts (auto) Absolute Lymphs (auto) Nucleated RBC % PT INR APTT D-Dimer Quant (PE/DVT) Sodium Potassium Chloride Carbon Dioxide Anion Gap BUN Creatinine Estim Creat Clear Calc Est GFR (MDRD) Af Amer Est GFR (MDRD) Non-Af BUN/Creatinine Ratio Glucose Hemoglobin A1c Lactic Acid Calcium Total Bilirubin AST ALT Alkaline Phosphatase Lactate Dehydrogenase Total Creatine Kinase Troponin I Pending Total Protein Albumin Globulin Albumin/Globulin Ratio Urine Color Yellow Urine Clarity Clear Urine pH 6.0 Ur Specific [place] 1.010 Urine Protein 30 H Urine Glucose (UA) Normal Urine Ketones Negative Urine Occult Blood 25 H Urine Nitrite Negative Urine Bilirubin Negative Urine Urobilinogen Normal Ur Leukocyte Esterase Negative Urine RBC 0 SEEN Urine WBC 0 SEEN Ur Squamous Epith Cells 0 SEEN Urine Bacteria 0 SEEN Urine Mucus 0 SEEN COVID-19 (TYLER) Blood Type Antibody Screen Crossmatch - Other Studies Radiology: [] reviewed Other Studies: [] Route of nutrition/ use of supplements: [] Nutritional Intake: [] IV Site: [] Diana Catheter: [] - Physical Exam General: Alert, Oriented x3, Cooperative, No apparent distress HEENT: Atraumatic, PERRLA, EOMI Neck: Supple, No Nodes Lungs: Diminished Cardiovascular: Regular rate, Regular Rhythm Abdomen: Soft, Non Tender, Non-Distended Extremities: No edema Skin: No rashes IV Site: Peripheral, without redness Musculoskeletal: No Tenderness to Palpation of Joints or Extremities Neurological: Cranial nerves II-XII grossly intact - Assessment/Plan Antibiotics: [] Assessment/Plan: [] Active and Suspected Problems (Last Updated 03/23/20 @ 11:[address] Audrey Tolliver MD) Acute diarrheal illness (Acute) Pneumonia due to COVID-19 virus (Acute) Septic shock (Acute) covid with hypoxia (sat this afternoon 94 on RA). On dex, lovenox 30mg bid. Cdiff pending, covid pcr pending. Will start remdesivir. D-dimer high at 6.5. Will follow, thank you
--- NOTE | 2020-03-23 16:05 | CON.PCM_ITS ---
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 Qualifiers: (11) History of coronary artery stent placement Status: Chronic Comment: PCI-Stent to mid RCA 08/06/04; cutting balloon angioplasty with TAMERA to mid RCA 02/19; ARL-Ieral-SPE-of RCA 06/18/09; PCI/TAMERA to Ostial PDA and PCI-ISR RCA 09/03/13; PCI/TAMERA ISR of mid RCA 10/07/15; FFR mid LAD 0.86 10/08/15 (12) Right bundle branch block (RBBB) Status: Chronic (13) Essential (primary) hypertension Status: Chronic (14) Hyperlipidemia Status: Chronic Qualifiers: Reason for Consult Date of Consultation: 03/23/20 Reason for Consultation: Possible septic shock History of Present Illness: The patient is an 84 year old M, with past medical history listed below, who presented [facility] on 03/23/2020 secondary to weakness and altered mental status for last 48 hours. Patient had reportedly complained of diffuse abdominal pain over the course of time. This was described as intermittent. Patient does have a history of rectal prolapse, but is not receiving surgery secondary to his age. Patient reportedly has not had any issues with obstruction or urinary symptoms. Patient reportedly has had no fever, chills, nausea, vomiting, diarrhea or dyspnea. In the ER, patient was saturating well on room air. Patient had diffuse abdominal pain without rebound or guarding. Patient reportedly has been taking his baseline medications and does have peripheral vascular disease with chronic bilateral lower leg ulcers. In the emergency department, patient was initially hypotensive, but responded well to IV fluids. Laboratory work-up showed a h emoglobin of 11.2, BUN of 40 and creatinine of 1.48. Potassium was slightly low at 3.3 and blood glucose was elevated at 196. Initial lactate was 4.4 and a UA was relatively unremarkable. Patient had a COVID-19 antigen that came back positive and a CT of the abdomen showed prominent small bowel and colonic fluid. EKG was relatively unremarkable from baseline. Patient was admitted to the intensive care unit for further evaluation. Since being in the intensive care unit, patient's blood pressure has remained stable. Patient is on room air. Obtaining history from the patient is relatively difficult. Patient states he is a non-smoker and has no respiratory complaints. Patient is unaware of any Covid exposures. 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 Patient is unable to delineate onset of symptoms. Past Medical History Past Medical History (Chronic Problems): Chronic Problems (Last Updated 03/23/20 @ 11:[address] 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 (Chronic) History of coronary artery stent placement (Chronic 10/07/15) PCI-Stent to mid RCA 08/06/04; cutting balloon angioplasty with TAMERA to mid RCA 02/19; DDR-Jiwrl-UGL-of RCA 06/18/09; PCI/TAMERA to Ostial PDA and PCI-ISR RCA 09/03/13; PCI/TAMERA ISR of mid RCA 10/07/15; FFR mid LAD 0.86 10/08/15 Peripheral arterial occlusive disease (Chronic) SFA PTCA/Stent 08/2012; Stent to distal RSFA to popliteal, Stent-Prox RSFA 10/23/13 Right bundle branch block (RBBB) (Chronic) Essential (primary) hypertension (Chronic) Hyperlipidemia (Chronic) Medical History: Medical History (Last Updated 03/23/20 @ 11:[address] 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 (Chronic) I25.10 Peripheral arterial occlusive disease (Chronic) I77.9 SFA PTCA/Stent 08/2012; Stent to distal RSFA to popliteal, Stent-Prox RSFA 10/23/13 Essential (primary) hypertension (Chronic) I10 Hyperlipidemia (Chronic) E78.5 Chronic pain of right heel M79.671, G89.29 DDD (degenerative disc disease) Diastolic dysfunction I51.89 GERD (gastroesophageal reflux disease) K21.9 Lumbar radiculopathy M54.16 Lumbar stenosis M48.061 Obstructive sleep apnea G47.33 Peripheral neuropathy G62.9 Peripheral neuropathy G62.9 Premature atrial contractions I49.1 Prostate cancer C61 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 Rectal prolapse (Inactive) K62.3 Syncope Onset Date: 02/2018 R55 Ulcer of right heel L97.419 Ulcer of right lower extremity with fat layer exposed L97.912 Urinary incontinence (Inactive) R32 Allergies carisoprodol Allergy (Verified 03/23/20 05:31) Other itraconazole Allergy (Verified 03/23/20 05:31) Other Home Medications: Ambulatory Orders Medication Instructions Recorded Omeprazole [Prilosec] 20 mg PO DAILY 10/07/15 Multivit-Min/FA/Lycopen/Lutein 1 tab PO DAILY 02/14/18 [Centrum Silver Men Tablet] Vitamin E 400 unit PO DAILY 10/29/18 duloxetine 30 mg capsule,delayed 30 mg PO DAILY 03/06/19 release atorvastatin 20 mg tablet 20 mg PO QHS #90 tab 06/10/19 lisinopril 20 mg tablet 20 mg PO DAILY #90 tab 09/30/19 acetaminophen 500 mg tablet 500 mg PO TID tab 01/30/20 Aspirin [Aspirin EC] 81 mg PO DAILY 02/25/20 Metoprolol(XL)Succ [Toprol Xl 12.5 mg PO DAILY 02/25/20 (Beta Koko)] Potassium Chloride 10 meq PO DAILY 02/25/20 nitroglycerin 0.4 mg sublingual 0.4 mg PO Q5-15M PRN #25 tab 02/25/20 tablet Amlodipine [Norvasc] 10 mg PO DAILY 03/19/20 Orphenadrine [Norflex ER] 100 mg PO DAILY 03/19/20 Ferrous Gluconate 324 mg PO DAILY 12/07/20 Surgical History: Surgical History (Last Updated 03/23/20 @ 11:[address] Audrey Tolliver MD) History of coronary artery stent placement (Chronic) Onset Date: 10/07/15 Z95.5 PCI-Stent to mid RCA 08/06/04; cutting balloon angioplasty with TAMERA to mid RCA 02/19; TAA-Tdbqk-EPA-of RCA 06/18/09; PCI/TAMERA to Ostial PDA and PCI-ISR RCA 09/03/13; PCI/TAMERA ISR of mid RCA 10/07/15; FFR mid LAD 0.86 10/08/15 History of left heart catheterization Onset Date: 07/02/19 Z98.890 Coronary artery disease with evidence of previously stented right coronary artery which is totally occluded with [id number] collaterals and fairly preserved left ventricular systolic function. RECOMMENDATIONS: Medical therapy History of angioplasty of peripheral vessel Onset Date: 10/23/13 Z98.62 Right Femoral Artery PTCA/Stent 08/2012; angioplasty and stenting of the Rt SFA @ [facility] per Dr. Zapata; Stent to distal RSFA to popliteal, Stent Rt. Proximal SFA 10/23/13 History of back surgery Z98.890 History of hernia repair Z98.890, Z87.19 History of prostatectomy Z90.79 with radiation History of shoulder surgery Z98.890 History of tonsillectomy Z90.89 Surgical History: rotator cuff repair, tonsillectomy, - - The patient is undergone lumbar surgery in the past. He has a history of bilateral shoulder surgery. He has had coronary stents placed, and to proceed stenting was performed in the right lower extremity. Psychiatric History: No pertinent psych hx Lives: Spouse/ Significant Other Smoking Status: Never smoker Alcohol: None Drugs: None - *Family History Maternal Family History: Family History (Last Reviewed 11/21/19 @ 10:52 by Holly Calzada) Mother CVA (cerebral vascular accident) Sister Hypertension Sibling Family History: Family History (Last Reviewed 11/21/19 @ 10:52 by Holly Calzada) Mother CVA (cerebral vascular accident) Sister Hypertension History Items: Hypertension Paternal Family History: Family History (Last Reviewed 11/21/19 @ 10:52 by oHlly Calzada) Mother CVA (cerebral vascular accident) Sister Hypertension History Items: No pertinent history Review of Systems Unable to obtain accurate/complete ROS d/t: Mental status Patient Problems: Active and Suspected Problems (Last Updated 03/23/20 @ 11:[address] Audrey Tolliver MD) Acute diarrheal illness (Acute) Pneumonia due to COVID-19 virus (Acute) Septic shock (Acute) Objective: All imaging was personally reviewed. CT of the abdomen showed some basilar atelectatic changes, but no obvious infiltrates. Chest x-ray showed bilateral infiltrates. Patient did have a heart catheterization completed in June 2019 showing an EF of 50% with an inferior basal akinesis and a diagonal branch with diffuse dis ease up to 70% and an occluded right coronary artery with collateral blood flow. - Physical Exam Vitals/I&O's: Vital Signs Temp Pulse Resp BP Pulse Ox 36.5 C L 82 16 152/65 H 94 03/23/20 12:00 03/23/20 15:00 03/23/20 15:00 03/23/20 15:00 03/23/20 15:00 Oxygen Delivery Method Room Air Weight: 58.967 kg Body Mass Index (BMI) 21.6 Intake and Output for Last 24 Hours 03/21/20 03/22/20 03/23/20 23:59 23:59 23:59 Intake Total 1057.5 / 1057.5 Output Total 400 / 400 Balance 657.5 / 657.5 General: Alert, Cooperative, No apparent distress, Confused, Disoriented, - - No conversational dyspnea. Appears frail. HEENT: Atraumatic, PERRLA, EOMI, Normocephalic, - - No scleral icterus or injec tion noted Oral: Moist Mucosa, No Gingival or Mucosal Lesions/ Ulcerations Neck: Supple, No JVD, No Nodes, Trachea Midline Lungs: Clear to auscultation, Normal air movement, No rhonchi, No wheeze, No rales Cardiovascular: Regular rate, Regular Rhythm, Normal S1, Normal S2, No murmurs, No rub noted, No Gallop Abdomen: Bowel Sounds Present, Soft, Distended - Slightly, Obese, Tender - No rebound or guarding noted Extremities: No clubbing, No cyanosis, Edema - 1+ bilateral lower extremities Skin: - - Lichenification of lower extremities. Musculoskeletal: No Tenderness to Palpation of Joints or Extremities Lymphatic: No Cervical, Supraclavicular, or Inguinal Adenopathy Neurological: Cranial nerves II-XII grossly intact, Neuro grossly intact - Sl ightly decreased fine touch sensation peripherally Psych/Mental Status: Normal Affect, Appropriate Microbiology Past 72 Hours 03/23/20 12:05 Stool Enteric Bacteriology - Final 03/23/20 12:05 Stool C. difficile DNA Amplification - Final 03/23/20 07:43 Mucosa - Nose SARS-CoV-2 Antigen (Rapid) - Final SARS-CoV-2 (COVID 19) 03/23/20 05:53 Stool Stool Occult Blood (MERRICK) - Final Occult Blood Positive Laboratory Results 03/23/20 05:35: WBC 6.9, RBC 3.45 L, Hgb 11.2 L, Hct 34.4 L, MCV 99.7 H, MCH 32.5 H, MCHC 32.6, RDW Std Deviation 55.1 H, RDW Coeff of Ayesha 15.2 H, Plt Count 316, MPV 9.5, Immature Gran % (Auto) 0.600, Neut % (Auto) 82.9 H, Lymph % (Auto) 13.2 L, [place] % (Auto) 2.5, Eos % (Auto) 0.7, Baso % (Auto) 0.1, Absolute Neuts (auto) 5.7, Absolute Lymphs (auto) 0.91, Nucleated RBC % 0 03/23/20 05:35: Sodium 137, Potassium 3.3 L, Chloride 103, Carbon Dioxide 23.0, Anion Gap 11, BUN 40 H, Creatinine 1.48 H, Estim Creat Clear Calc 31.69, Est GFR (MDRD) Af Amer 58 L, Est GFR (MDRD) Non-Af 48 L, BUN/Creatinine Ratio 27.0 H, Glucose 196 H, Calcium 8.9, Total Bilirubin 0.30, AST 71 H, ALT 50, Alkaline Phosphatase 133 H, Troponin I 0.054 H, Total Protein 6.7, Albumin 3.0 L, Globulin 3.7, Albumin/Globulin Ratio 0.8 L 03/23/20 05:35: Lactic Acid 4.4 H* 03/23/20 05:35: PT 13.1, INR 1.0, APTT 27.7 03/23/20 05:35: Blood Type A POSITIVE, Antibody Screen NEGATIVE 03/23/20 05:35: Crossmatch See Detail 03/23/20 06:40: Urine Color Yellow, Urine Clarity Clear, Urine pH 6.0, Ur Specific [place] 1.010, Urine Protein 30 H, Urine Glucose (UA) Normal, Urine Ketones 5 H, Urine Occult Blood Negative, Urine Nitrite Negative, Urine Bilirubin Negative, Urine Urobilinogen Normal, Ur Leukocyte Esterase Negative, Urine RBC 0-5 SEEN, Urine WBC 0 SEEN, Ur Squamous Epith Cells 0 SEEN, Urine Bacteria 0 SEEN, Urine Mucus 0 SEEN 03/23/20 10:30: Lactic Acid 1.4 03/23/20 12:05: D-Dimer Quant (PE/DVT) 6.50 H* 03/23/20 12:05: Lactate Dehydrogenase 253 H, Total Creatine Kinase 474 H, Troponin I 0.038 03/23/20 12:05: Hemoglobin A1c 5.6 03/23/20 13:35: COVID-19 (TYLER) Pending 03/23/20 14:05: Urine Color Yellow, Urine Clarity Clear, Urine pH 6.0, Ur Specific [place] 1.010, Urine Protein 30 H, Urine Glucose (UA) Normal, Urine Ketones Negative, Urine Occult Blood 25 H, Urine Nitrite Negative, Urine Bilirubin Negative, Urine Urobilinogen Normal, Ur Leukocyte Esterase Negative, Urine RBC 0 SEEN, Urine WBC 0 SEEN, Ur Squamous Epith Cells 0 SEEN, Urine Bacteria 0 SEEN, Urine Mucus 0 SEEN 03/23/20 15:40: Troponin I Pending Current Medications Acetaminophen (Acetaminophen 325 Mg Tablet) 650 mg PO Q6H PRN PRN PRN Reason: Pain Score 1-10/Temp > 100.7 F Aspirin (Aspirin E.C. 81 Mg Tablet) 81 mg PO DAILY [facility] Last Admin: 03/23/20 13:35 Dose: 81 mg Documented by: Atorvastatin Calcium (Atorvastatin Calcium 20 Mg Tablet) 20 mg PO DAILY [facility] Dexamethasone (Dexamethasone 4 Mg Tablet) 6 mg PO DAILY [facility] Stop: 04/01/20 10:01 Duloxetine HCl (Duloxetine Hcl 30 Mg Capsule) 30 mg PO DAILY [facility] Last Admin: 03/23/20 13:35 Dose: 30 mg Documented by: Enoxaparin Sodium (Enoxaparin 30 Mg/0.3 Ml Syringe) 30 mg SC BID [facility] Last Admin: 03/23/20 13:35 Dose: 30 mg Documented by: Ferrous Gluconate (Ferrous Gluconate 324 Mg Tablet) 324 mg PO DAILY [facility] Last Admin: 03/23/20 13:35 Dose: 324 mg Documented by: Sodium Chloride () 250 mls @ 15 mls/hr IV .[id number] PRN PRN Reason: Saline Flush Sodium Chloride () 250 mls @ 15 mls/hr IV .[id number] PRN PRN Reason: Additional IVPB Infusion Sodium Chloride () 1,000 mls @ 100 mls/hr IV .Q10H [facility] Stop: 03/24/20 07:44 Last Admin: 03/23/20 14:18 Dose: 100 mls/hr Documented by: Remdesivir 100 mg/ Sodium (Chloride) 250 mls @ 125 mls/hr IV DAILY [facility]; Protocol Stop: 03/27/20 11:59 Remdesivir 200 mg/ Sodium (Chloride) 250 mls @ 125 mls/hr IV X1 ONE; Protocol Stop: 03/23/20 18:14 Insulin Human Lispro (Insulin Lispro 100 Unit/Ml Insuln.Pen) 0 unit SC ACHS [facility]; Protocol Metoprolol Succinate (Metoprolol(Xl)Succ 25 Mg Tablet) 12.5 mg PO DAILY [facility] Last Admin: 03/23/20 13:05 Dose: Not Given Documented by: Nutritional Formula (Nutritional Supplement (Tim) Packet) 1 packet PO BIDCM [facility] Ondansetron HCl (Ondansetron 4 Mg/2 Ml Vial) 4 mg IV Q8H PRN PRN PRN Reason: NAUSEA/VOMITING Orphenadrine Citrate (Orphenadrine 100 Mg Tablet) 100 mg PO DAILY [facility] Last Admin: 03/23/20 13:15 Dose: Not Given Documented by: Pantoprazole Sodium (Pantoprazole Sodium 20 Mg Tablet) 20 mg PO DAILY [facility] Last Admin: 03/23/20 13:35 Dose: 20 mg Documented by: Sodium Chloride (0.9% Saline Lock 10 Ml Syringe) 10 - 40 ml IV UD PRN PRN Reason: SALINE FLUSH Clinical Impression(s) from Imaging Studies Abdomen/Pelvis CT 03/23/20 05:30 IMPRESSION: 1. Prominent small bowel and colonic fluid, a nonspecific finding which can be seen with enteritis. 2. Mild basilar infiltrates, nonspecific but possibly infection. 3. Additional findings above. Individualized dose optimization techniques were used for this CT. at 0644 Reported and signed by: Angelica Quinteros MD Electronically Signed: Angelica Quinteros MD at 6:44 EST Tel , Service support , Chest X-Ray 03/23/20 11:43 IMPRESSION: Cardiomegaly with low volume inspiration and interval development of bilateral pulmonary opacities, right slightly greater than left. Findings are compatible with atypical pneumonia with COVID 19 a consideration. Electronically Signed: Neftali Duff MD at 15:41 EST , Service support , Assessment/Plan Active and Suspected Problems (Last Updated 03/23/20 @ 11:[address] Audrey Tolliver MD) Acute diarrheal illness (Acute) Pneumonia due to COVID-19 virus (Acute) Septic shock (Acute) RECOMMENDATIONS: 1. Cautious fluid resuscitation 2. Await Covid PCR 3. Decadron and remdesivir per infectious disease 4. Continue empiric antibiotic therapy 5. Replace electrolytes as necessary IMPRESSIONS: 1. Septic shock secondary to possible COVID-19 pneumonia/gastritis Patient has other sources for possible septic shock including lower extremity ulcers. Patient did have an elevated lactate on presentation, but was not hypoxic. Patient is reportedly afebrile with no leukocytosis. Patient has responded to fluid resuscitation. There is a report of diarrhea. Screening antigen testing was positive, but PCR is still pending. Infectious disease has been consulted. Chest x-ray does show bilateral infiltrates. 2. Acute kidney injury Patient appears to have normal baseline functioning. Clinical suspicion for prerenal etiology secondary to dehydration. Patient has responded to fluids. However, will need to follow closely as patient does have a history of CHF and CAD. No indication for renal replacement therapy at this time. 3. Advanced age/hyperglycemia/CAD/hypertension/PVD with chronic ulcers/hyperlipidemia Complicates care, management, recovery and prognosis. We will need to start blood sugar checks if patient is placed on Decadron therapy. Okay to continue with most baseline medications, but would hold lisinopril and Norvasc for now. Okay to continue with metoprolol to ensure diastolic filling. Inpatient E&M: 90341 Init Hosp L3
[2020-03-23] MEDS: Insulin Lispro 100 UNIT/ML INSULN.PEN SC (17:31)
[2020-03-23 21:06] LABS: Bedside Glucose 94 mg/dL (70-110)
[2020-03-23] MEDS: Acetaminophen 325 MG Tablet 650 MG PO (22:47)
--- NOTE | 2020-03-23 23:46 | NURSING ---
pt confused but reorients back quickly. Pt has arms reaching in air. Pt reposition in bed to left side. water given. encourage pt to sleep. blankets removed
[2020-03-24] VITALS (27 sets, daily range): BP systolic 108–157; BP diastolic 34–88; PULSE 68–90; RESP 13–21; TEMP 36.5–37.1; O2SAT 94–100
[2020-03-24] MEDS: 0.9% Normal Saline 1,000 ML 100 ML IV (02:11)
[2020-03-24] MEDS: Vancomycin IV 1,000 MG/200 ML BAG 200 MG IV (02:23)
[2020-03-24] MEDS: 0.9% Saline Lock 10 ML Syringe IV ×2 (03:13→08:18)
[2020-03-24 03:21] LABS: Hematocrit 26.7 % (40-54); Hemoglobin 8.7 g/dL (13.0-16.5); Mean Corp Hgb Conc 32.6 g/dL (32-36); Mean Corpuscular Hgb 32.1 pg (27.0-32.0); Mean Corpuscular Volume 98.5 fL (80-94); Mean Platelet Vol. 9.3 fl (6.2-12.0); Platelet Count 221 K/mm3 (150-450); RBC Distribution Width CV 15.3 % (11.6-14.6); RBC Distribution Width SD 54.9 fl (35.1-43.9); Red Blood Count 2.71 M/mm3 (4.6-6.2); White Blood Count 10.4 K/mm3 (4.4-11.0)
[2020-03-24 03:31] LABS: ALB/GLOB Ratio 0.7 RATIO (0.9-2.4); AST(SGOT) 43 U/L (15-37); Alanine Aminotransfer ALT/SGPT 37 U/L (16-61); Albumin, Serum 2.1 g/dL (3.2-5.0); Alkaline Phosphatase 139 U/L (45-117); Anion Gap 3 (5-15); BUN 31 mg/dL (7-18); BUN/Creat Ratio 41.5 RATIO (10-20); Chloride 109 mmol/L (98-107); Creatinine, Serum 0.75 mg/dL (0.70-1.30); EST Glomerular Filtration Rate 106 mL/min (>60); Est Glom Filt Rate - Afr Amer 128 mL/min (>60); Estimated Creatinine Clearance 45.11 ml/min; Glucose 139 mg/dL (74-106); Potassium 4.3 mmol/L (3.5-5.1); Protein, Total 5.1 g/dL (6.4-8.2); Sodium Level 139 mmol/L (136-145)
[2020-03-24 05:56] LABS: Bedside Glucose 162 mg/dL (70-110)
[2020-03-24] MEDS: DULoxetine Hcl 30 MG Capsule PO (08:16)
[2020-03-24] MEDS: dexAMETHasone 4 MG Tablet 6 MG PO (08:16)
[2020-03-24] MEDS: Metoprolol(XL)Succ 25 MG Tablet 12.5 MG PO (08:16)
[2020-03-24] MEDS: Aspirin E.C. 81 MG Tablet PO (08:16)
[2020-03-24] MEDS: Enoxaparin 30 MG/0.3 ML Syringe SC ×2 (08:16→21:33)
[2020-03-24] MEDS: Atorvastatin Calcium 20 MG Tablet PO (08:16)
[2020-03-24] MEDS: Ferrous Gluconate 324 MG Tablet PO (08:17)
[2020-03-24] MEDS: Orphenadrine 100 MG Tablet PO (08:17)
[2020-03-24] MEDS: Pantoprazole Sodium 20 MG Tablet PO (08:17)
--- NOTE | 2020-03-24 10:05 | PN_ITS ---
Patient Problems: Active and Suspected Problems (Last Updated 03/24/20 @ 10:[address] Audrey Tolliver MD) Septic shock (Acute) Pneumonia due to COVID-19 virus (Acute) Acute kidney injury (Acute) Acute diarrheal illness (Acute) Subjective: Chief complaint: Follow-up after admission for septic shock, COVID-19 pneumonia, acute kidney injury, abnormal cardiac enzymes and hyperglycemia. Patient seen and examined. No acute events overnight. Today, he is feeling little bit better. He still having diarrhea, denies any more abdominal pain. Denies shortness of breath, reported mild cough. Denies fever or chills. His vital signs are stable. - Physical Exam Vitals/I&O's: Vital Signs Temp Pulse Resp BP Pulse Ox 98.6 F 80 16 123/45 H 95 03/24/20 03:00 03/24/20 08:16 03/24/20 07:00 03/24/20 08:16 03/24/20 07:00 Oxygen Delivery Method Room Air Weight: 130 lb 3 oz Body Mass Index (BMI) 21.6 Intake and Output for Last 24 Hours 03/22/20 03/23/20 03/24/20 23:59 23:59 23:59 Intake Total 1862.5 / 1862.5 1015.00 / 1015.00 Output Total 400 / 400 Balance 1462.5 / 1462.5 1015.00 / 1015.00 General: Alert, Cooperative, No apparent distress HEENT: Atraumatic, PERRLA, EOMI, Normocephalic Oral: Moist Mucosa, No Gingival or Mucosal Lesions/ Ulcerations Neck: Supple, No JVD, Negative Carotid Bruits, Trachea Midline, Thyroid Normal Size and Texture Lungs: Clear to auscultation, No rhonchi, No wheeze, No rales, Diminished Cardiovascular: Regular rate, Regular Rhythm, Normal S1, Normal S2, PMI Normal Abdomen: Bowel Sounds Present, Soft, Non Tender, Non-Distended, No Hepato- splenomegaly Extremities: No clubbing, No cyanosis, No edema Skin: No rashes, No breakdown Lymphatic: No Cervical, Supraclavicular, or Inguinal Adenopathy Neurological: Cranial nerves II-XII grossly intact, Neuro grossly intact Psych/Mental Status: Normal Affect, Appropriate Microbiology Past 72 Hours 03/23/20 12:05 Blood Culture (Wb) - Left Hand Bacteria Detection (PCR) - Final Enterococcus faecium 03/23/20 12:05 Blood Culture (Wb) - Left Hand Blood Culture - Preliminary 03/23/20 12:05 Stool Enteric Bacteriology - Final 03/23/20 12:05 Stool C. difficile DNA Amplification - Final 03/23/20 07:43 Mucosa - Nose SARS-CoV-2 Antigen (Rapid) - Final SARS-CoV-2 (COVID 19) 03/23/20 05:53 Stool Stool Occult Blood (MERRICK) - Final Occult Blood Positive Laboratory Results 03/23/20 10:30: Lactic Acid 1.4 03/23/20 12:05: D-Dimer Quant (PE/DVT) 6.50 H* 03/23/20 12:05: Lactate Dehydrogenase 253 H, Total Creatine Kinase 474 H, Troponin I 0.038 03/23/20 12:05: Hemoglobin A1c 5.6 03/23/20 13:35: COVID-19 ([facility]LER) Detected 03/23/20 14:05: Urine Color Yellow, Urine Clarity Clear, Urine pH 6.0, Ur Specific [place] 1.010, Urine Protein 30 H, Urine Glucose (UA) Normal, Urine Ketones Negative, Urine Occult Blood 25 H, Urine Nitrite Negative, Urine Bilirubin Negative, Urine Urobilinogen Normal, Ur Leukocyte Esterase Negative, Urine RBC 0 SEEN, Urine WBC 0 SEEN, Ur Squamous Epith Cells 0 SEEN, Urine Bacteria 0 SEEN, Urine Mucus 0 SEEN 03/23/20 15:40: Troponin I 0.024 03/23/20 17:27: POC Glucose 162 H 03/23/20 18:00: Troponin I 0.026 03/23/20 20:55: POC Glucose 94 03/24/20 03:05: WBC 10.4, RBC 2.71 L, Hgb 8.7 L, Hct 26.7 L, MCV 98.5 H, MCH 32.1 H, MCHC 32.6, RDW Std Deviation 54.9 H, RDW Coeff of Ayesha 15.3 H, Plt Count 221, MPV 9.3 03/24/20 03:05: Sodium 139, Potassium 4.3, Chloride 109 H, Carbon Dioxide 27.0, Anion Gap 3 L, BUN 31 H, Creatinine 0.75, Estim Creat Clear Calc 45.11, Est GFR (MDRD) Af Amer 128, Est GFR (MDRD) Non-Af 106, BUN/Creatinine Ratio 41.5 H, Glucose 139 H, Calcium 8.0 L, Total Bilirubin 0.20, AST 43 H, ALT 37, Alkaline Phosphatase 139 H, Total Protein 5.1 L, Albumin 2.1 L, Globulin 3.0, Albumin/Globulin Ratio 0.7 L Current Medications Acetaminophen (Acetaminophen 325 Mg Tablet) 650 mg PO Q6H PRN PRN PRN Reason: Pain Score 1-10/Temp > 100.7 F Last Admin: 03/23/20 22:47 Dose: 650 mg Documented by: Aspirin (Aspirin E.C. 81 Mg Tablet) 81 mg PO DAILY [facility] Last Admin: 03/24/20 08:16 Dose: 81 mg Documented by: Atorvastatin Calcium (Atorvastatin Calcium 20 Mg Tablet) 20 mg PO DAILY [facility] Last Admin: 03/24/20 08:16 Dose: 20 mg Documented by: Dexamethasone (Dexamethasone 4 Mg Tablet) 6 mg PO DAILY [facility] Stop: 04/01/20 10:01 Last Admin: 03/24/20 08:16 Dose: 6 mg Documented by: Duloxetine HCl (Duloxetine Hcl 30 Mg Capsule) 30 mg PO DAILY [facility] Last Admin: 03/24/20 08:16 Dose: 30 mg Documented by: Enoxaparin Sodium (Enoxaparin 30 Mg/0.3 Ml Syringe) 30 mg SC BID [facility] Last Admin: 03/24/20 08:16 Dose: 30 mg Documented by: Ferrous Gluconate (Ferrous Gluconate 324 Mg Tablet) 324 mg PO DAILY [facility] Last Admin: 03/24/20 08:17 Dose: 324 mg Documented by: Sodium Chloride () 250 mls @ 15 mls/hr IV .[id number] PRN PRN Reason: Saline Flush Sodium Chloride () 250 mls @ 15 mls/hr IV .[id number] PRN PRN Reason: Additional IVPB Infusion Remdesivir 100 mg/ Sodium (Chloride) 250 mls @ 125 mls/hr IV DAILY [facility]; Protocol Stop: 03/27/20 11:59 Insulin Human Lispro (Insulin Lispro 100 Unit/Ml Insuln.Pen) 0 unit SC ACHS [facility]; Protocol Last Admin: 03/24/20 08:17 Dose: Not Given Documented by: Metoprolol Succinate (Metoprolol(Xl)Succ 25 Mg Tablet) 12.5 mg PO DAILY [facility] Last Admin: 03/24/20 08:16 Dose: 12.5 mg Documented by: Nutritional Formula (Nutritional Supplement (Tim) Packet) 1 packet PO BIDCM [facility] Last Admin: 03/24/20 08:17 Dose: 1 packet Documented by: Ondansetron HCl (Ondansetron 4 Mg/2 Ml Vial) 4 mg IV Q8H PRN PRN PRN Reason: NAUSEA/VOMITING Orphenadrine Citrate (Orphenadrine 100 Mg Tablet) 100 mg PO DAILY [facility] Last Admin: 03/24/20 08:17 Dose: 100 mg Documented by: Pantoprazole Sodium (Pantoprazole Sodium 20 Mg Tablet) 20 mg PO DAILY [facility] Last Admin: 03/24/20 08:17 Dose: 20 mg Documented by: Sodium Chloride (0.9% Saline Lock 10 Ml Syringe) 10 - 40 ml IV UD PRN PRN Reason: SALINE FLUSH Last Admin: 03/24/20 08:18 Dose: 20 ml Documented by: Medical Necessity - Tobacco Use Smoking Status: Never smoker Assessment/Plan All Active Problems (Last Updated 03/24/20 @ 10:[address] Audrey Tolliver MD) Septic shock (Acute) Pneumonia due to COVID-19 virus (Acute) Acute kidney injury (Acute) Acute diarrheal illness (Acute) This is an 84 years old male patient presented to the emergency room because of weakness, fatigue, abdominal pain and diarrhea and he was found to have septic shock, tested positive for COVID-19 antigens and also found to have acute kidney injury and abnormal cardiac enzymes. #1 septic shock: Attributed to COVID-19 pneumonia versus severe dehydration secondary to diarrhea. Lactic acid is back to normal with IV fluids. Blood pressure stabilized, patient has been afebrile. COVID-19 PCR was positive. Stools for C. difficile and enteric pathogens were negative. 1 set of blood culture revealed Enterococcus faecium. Infectious disease on the case as well as critical care. Plan to continue same treatment. #2 COVID-19 pneumonia: Both COVID-19 antigen and COVID-19 PCR came back positive. He is on IV Decadron and remdesivir. Chest x-ray reviewed. CT scan abdomen revealed mild bilateral basilar infiltrate. Patient remained on room air, no shortness of breath. Currently, patient is afebrile, no leukocytosis, on room air. #3 bacteremia: 1 set of blood culture revealed Enterococcus faecium. Unclear source, could be due to the leg ulcers. He has been afebrile, no leukocytosis. Currently, he is not on IV antibiotics. Will wait for ID recommendations. #4 acute kidney injury: Probably due to acute dialysis, dehydration. Baseline kidney function is normal. Today's creatinine is 0.75, it is back to normal. Encourage oral intake. #5 abnormal cardiac enzymes: EKG reviewed, no acute ischemic changes. Patient denied any chest pain. Could be due to demand ischemia. Troponin is trending down, it is back to normal. Continue aspirin and statins as well as beta- blockers. #6 hyperglycemia: Without history of diabetes. It is likely due to IV steroids. Hemoglobin A1c was 5.6%. Plan to continue Accu-Cheks and sliding scale while on IV steroids. #7 acute diarrheal illness: Stool for C. difficile and enteric pathogens were negative. It is likely due to COVID-19. Will start Imodium as needed. #8 CAD status post stents: EKG reviewed as above. Continue aspirin, Lipitor, metoprolol, lisinopril held. #9 hypertension: Blood pressure stabilized and started to go up, continue metoprolol. Will resume Norvasc and lisinopril. #10 peripheral vascular disease/chronic bilateral leg ulcers: Without obvious evidence of acute infection. Wound care nurse consulted. #11 hyperlipidemia: Continue statins. #12 DVT prophylaxis: Subcu Lovenox twice daily. This note was generated with [employer] dictation software. It may contain incorrect words, spelling, and punctuation that were not noted in checking the note before signing. Inpatient E&M: [id number] Subs Hosp L2
--- NOTE | 2020-03-24 11:02 | PN.ID_ITS ---
Patient Problems: Active and Suspected Problems (Last Updated 03/24/20 @ 10:[address] Audrey Tolliver MD) Septic shock (Acute) Pneumonia due to COVID-19 virus (Acute) Acute kidney injury (Acute) Acute diarrheal illness (Acute) Subjective: Feeling fine, no fever, breathing well, no abd pain - Physical Exam Vitals/I&O's: Vital Signs Temp Pulse Resp BP Pulse Ox 98.6 F 80 16 123/45 H 95 03/24/20 03:00 03/24/20 08:16 03/24/20 07:00 03/24/20 08:16 03/24/20 07:00 Oxygen Delivery Method Room Air Weight: 59.052 kg Body Mass Index (BMI) 21.6 Intake and Output for Last 24 Hours 03/22/20 03/23/20 03/24/20 23:59 23:59 23:59 Intake Total 1862.5 / 1862.5 1015.00 / 1015.00 Output Total 400 / 400 Balance 1462.5 / 1462.5 1015.00 / 1015.00 General: Alert, Cooperative, No apparent distress Lungs: Clear to auscultation, Diminished Cardiovascular: Regular rate, Regular Rhythm Abdomen: Soft, Non Tender, Non-Distended Skin: No rashes Microbiology Past 72 Hours 03/23/20 12:05 Blood Culture (Wb) - Left Hand Bacteria Detection (PCR) - Final Enterococcus faecium 03/23/20 12:05 Blood Culture (Wb) - Left Hand Blood Culture - Preliminary Enterococcus faecium 03/23/20 12:05 Stool Enteric Bacteriology - Final 03/23/20 12:05 Stool C. difficile DNA Amplification - Final 03/23/20 07:43 Mucosa - Nose SARS-CoV-2 Antigen (Rapid) - Final SARS-CoV-2 (COVID 19) 03/23/20 05:53 Stool Stool Occult Blood (MERRICK) - Final Occult Blood Positive Laboratory Results 03/23/20 10:30: Lactic Acid 1.4 03/23/20 12:05: D-Dimer Quant (PE/DVT) 6.50 H* 03/23/20 12:05: Lactate Dehydrogenase 253 H, Total Creatine Kinase 474 H, Troponin I 0.038 03/23/20 12:05: Hemoglobin A1c 5.6 03/23/20 13:35: COVID-19 ([facility]LER) Detected 03/23/20 14:05: Urine Color Yellow, Urine Clarity Clear, Urine pH 6.0, Ur Specific [place] 1.010, Urine Protein 30 H, Urine Glucose (UA) Normal, Urine Ketones Negative, Urine Occult Blood 25 H, Urine Nitrite Negative, Urine Bilirubin Negative, Urine Urobilinogen Normal, Ur Leukocyte Esterase Negative, Urine RBC 0 SEEN, Urine WBC 0 SEEN, Ur Squamous Epith Cells 0 SEEN, Urine Bacteria 0 SEEN, Urine Mucus 0 SEEN 03/23/20 15:40: Troponin I 0.024 03/23/20 17:27: POC Glucose 162 H 03/23/20 18:00: Troponin I 0.026 03/23/20 20:55: POC Glucose 94 03/24/20 03:05: WBC 10.4, RBC 2.71 L, Hgb 8.7 L, Hct 26.7 L, MCV 98.5 H, MCH 32.1 H, MCHC 32.6, RDW Std Deviation 54.9 H, RDW Coeff of Ayesha 15.3 H, Plt Count 221, MPV 9.3 03/24/20 03:05: Sodium 139, Potassium 4.3, Chloride 109 H, Carbon Dioxide 27.0, Anion Gap 3 L, BUN 31 H, Creatinine 0.75, Estim Creat Clear Calc 45.11, Est GFR (MDRD) Af Amer 128, Est GFR (MDRD) Non-Af 106, BUN/Creatinine Ratio 41.5 H, Glucose 139 H, Calcium 8.0 L, Total Bilirubin 0.20, AST 43 H, ALT 37, Alkaline Phosphatase 139 H, Total Protein 5.1 L, Albumin 2.1 L, Globulin 3.0, Albumin/Globulin Ratio 0.7 L Current Medications Acetaminophen (Acetaminophen 325 Mg Tablet) 650 mg PO Q6H PRN PRN PRN Reason: Pain Score 1-10/Temp > 100.7 F Last Admin: 03/23/20 22:47 Dose: 650 mg Documented by: Amlodipine Besylate (Amlodipine 10 Mg Tablet) 10 mg PO DAILY [facility] Aspirin (Aspirin E.C. 81 Mg Tablet) 81 mg PO DAILY [facility] Last Admin: 03/24/20 08:16 Dose: 81 mg Documented by: Atorvastatin Calcium (Atorvastatin Calcium 20 Mg Tablet) 20 mg PO DAILY [facility] Last Admin: 03/24/20 08:16 Dose: 20 mg Documented by: Dexamethasone (Dexamethasone 4 Mg Tablet) 6 mg PO DAILY [facility] Stop: 04/01/20 10:01 Last Admin: 03/24/20 08:16 Dose: 6 mg Documented by: Duloxetine HCl (Duloxetine Hcl 30 Mg Capsule) 30 mg PO DAILY [facility] Last Admin: 03/24/20 08:16 Dose: 30 mg Documented by: Enoxaparin Sodium (Enoxaparin 30 Mg/0.3 Ml Syringe) 30 mg SC BID [facility] Last Admin: 03/24/20 08:16 Dose: 30 mg Documented by: Ferrous Gluconate (Ferrous Gluconate 324 Mg Tablet) 324 mg PO DAILY [facility] Last Admin: 03/24/20 08:17 Dose: 324 mg Documented by: Sodium Chloride () 250 mls @ 15 mls/hr IV .[id number] PRN PRN Reason: Saline Flush Sodium Chloride () 250 mls @ 15 mls/hr IV .[id number] PRN PRN Reason: Additional IVPB Infusion Remdesivir 100 mg/ Sodium (Chloride) 250 mls @ 125 mls/hr IV DAILY [facility]; Protocol Stop: 03/27/20 11:59 Insulin Human Lispro (Insulin Lispro 100 Unit/Ml Insuln.Pen) 0 unit SC ACHS [facility]; Protocol Last Admin: 03/24/20 08:17 Dose: Not Given Documented by: Lisinopril (Lisinopril 20 Mg Tablet) 20 mg PO DAILY [facility] Loperamide HCl (Loperamide 2 Mg Capsule) 2 mg PO Q4H PRN PRN PRN Reason: DIARRHEA Metoprolol Succinate (Metoprolol(Xl)Succ 25 Mg Tablet) 12.5 mg PO DAILY [facility] Last Admin: 03/24/20 08:16 Dose: 12.5 mg Documented by: Nutritional Formula (Nutritional Supplement (Tim) Packet) 1 packet PO BIDCM [facility] Last Admin: 03/24/20 08:17 Dose: 1 packet Documented by: Ondansetron HCl (Ondansetron 4 Mg/2 Ml Vial) 4 mg IV Q8H PRN PRN PRN Reason: NAUSEA/VOMITING Orphenadrine Citrate (Orphenadrine 100 Mg Tablet) 100 mg PO DAILY [facility] Last Admin: 03/24/20 08:17 Dose: 100 mg Documented by: Pantoprazole Sodium (Pantoprazole Sodium 20 Mg Tablet) 20 mg PO DAILY [facility] Last Admin: 03/24/20 08:17 Dose: 20 mg Documented by: Sodium Chloride (0.9% Saline Lock 10 Ml Syringe) 10 - 40 ml IV UD PRN PRN Reason: SALINE FLUSH Last Admin: 03/24/20 08:18 Dose: 20 ml Documented by: Medical Necessity - Tobacco Use Smoking Status: Never smoker Route of nutrition/ use of supplements: [] Nutritional Intake: [] IV Site: [] Diana Catheter: [] - Assessment/Plan Antibiotics: [] Assessment/Plan: [] Active and Suspected Problems (Last Updated 03/23/20 @ 11:[address] uAdrey Tolliver MD) Acute diarrheal illness (Acute) Pneumonia due to COVID-19 virus (Acute) Septic shock (Acute) covid with hypoxia (sat as low as 94 on RA). On dex, lovenox 30mg bid, remdesivir. Covid pcr (+). D-dimer high at 6.5. Single bcx with enterococcus overnight, given dose of vanc, will repeat bcx, suspected contaminant. With high d-dimer and confirmed covid, I think CTA chest is reasonable. Will follow
[2020-03-24 11:35] LABS: Bedside Glucose 155 mg/dL (70-110)
[2020-03-24] MEDS: Insulin Lispro 100 UNIT/ML INSULN.PEN SC (12:25)
--- NOTE | 2020-03-24 12:48 | PN_ITS ---
Subjective: Patient did well overnight. No additional fluid boluses were required for hypotension. Patient has remained on IV fluids throughout the evening, but is still on room air. Patient is not reporting any GI symptoms. Patient much more appropriate with answers of questions today General: Alert, Oriented x3, Cooperative, No apparent distress, - - Thin build. No conversational dyspnea. HEENT: Atraumatic, PERRLA, EOMI, Normocephalic, - - No scleral icterus or injection noted Oral: Moist Mucosa, No Gingival or Mucosal Lesions/ Ulcerations Neck: Supple, No JVD, No Nodes, Trachea Midline Lungs: Clear to auscultation, Normal air movement, No rhonchi, No wheeze, No rales Cardiovascular: Regular rate, Regular Rhythm, Normal S1, Normal S2, No murmurs, No rub noted, No Gallop Abdomen: Bowel Sounds Present, Soft, Non Tender, Distended - Slightly Extremities: No clubbing, No cyanosis, Edema - Trace anasarca Skin: - - No change compared to previous Musculoskeletal: No Tenderness to Palpation of Joints or Extremities Lymphatic: No Cervical, Supraclavicular, or Inguinal Adenopathy Neurological: Cranial nerves II-XII grossly intact, Neuro grossly intact, Motor Exam 5/5 strength throughout Psych/Mental Status: Alert and oriented to time, place, person, mood and affect Vital Signs Temp Pulse Resp BP Pulse Ox 37.0 C 80 16 123/45 H 95 03/24/20 03:00 03/24/20 08:16 03/24/20 07:00 03/24/20 08:16 03/24/20 07:00 Oxygen Delivery Method Room Air Weight: 59.052 kg Body Mass Index (BMI) 21.6 Intake and Output for Last 24 Hours 03/22/20 03/23/20 03/24/20 23:59 23:59 23:59 Intake Total 1862.5 / 1862.5 1015.00 / 1015.00 Output Total 400 / 400 Balance 1462.5 / 1462.5 1015.00 / 1015.00 Labs (Last 48 Hours) 03/23/20 03/23/20 03/23/20 05:35 05:35 05:35 WBC 6.9 RBC 3.45 L Hgb 11.2 L Hct 34.4 L MCV 99.7 H MCH 32.5 H MCHC 32.6 RDW Std Deviation 55.1 H RDW Coeff of Ayesha 15.2 H Plt Count 316 MPV 9.5 Immature Gran % (Auto) 0.600 Neut % (Auto) 82.9 H Lymph % (Auto) 13.2 L [place] % (Auto) 2.5 Eos % (Auto) 0.7 Baso % (Auto) 0.1 Absolute Neuts (auto) 5.7 Absolute Lymphs (auto) 0.91 Nucleated RBC % 0 PT INR APTT D-Dimer Quant (PE/DVT) Sodium 137 Potassium 3.3 L Chloride 103 Carbon Dioxide 23.0 Anion Gap 11 BUN 40 H Creatinine 1.48 H Estim Creat Clear Calc 31.69 Est GFR (MDRD) Af Amer 58 L Est GFR (MDRD) Non-Af 48 L BUN/Creatinine Ratio 27.0 H Glucose 196 H Hemoglobin A1c Lactic Acid 4.4 H* Calcium 8.9 Total Bilirubin 0.30 AST 71 H ALT 50 Alkaline Phosphatase 133 H Lactate Dehydrogenase Total Creatine Kinase Troponin I 0.054 H Total Protein 6.7 Albumin 3.0 L Globulin 3.7 Albumin/Globulin Ratio 0.8 L Urine Color Urine Clarity Urine pH Ur Specific [place] Urine Protein Urine Glucose (UA) Urine Ketones Urine Occult Blood Urine Nitrite Urine Bilirubin Urine Urobilinogen Ur Leukocyte Esterase Urine RBC Urine WBC Ur Squamous Epith Cells Urine Bacteria Urine Mucus COVID-19 (TYLER) POC Glucose Blood Type Antibody Screen Crossmatch 03/23/20 03/23/20 03/23/20 05:35 05:35 05:35 WBC RBC Hgb Hct MCV MCH MCHC RDW Std Deviation RDW Coeff of Ayesha Plt Count MPV Immature Gran % (Auto) Neut % (Auto) Lymph % (Auto) [place] % (Auto) Eos % (Auto) Baso % (Auto) Absolute Neuts (auto) Absolute Lymphs (auto) Nucleated RBC % PT 13.1 INR 1.0 APTT 27.7 D-Dimer Quant (PE/DVT) Sodium Potassium Chloride Carbon Dioxide Anion Gap BUN Creatinine Estim Creat Clear Calc Est GFR (MDRD) Af Amer Est GFR (MDRD) Non-Af BUN/Creatinine Ratio Glucose Hemoglobin A1c Lactic Acid Calcium Total Bilirubin AST ALT Alkaline Phosphatase Lactate Dehydrogenase Total Creatine Kinase Troponin I Total Protein Albumin Globulin Albumin/Globulin Ratio Urine Color Urine Clarity Urine pH Ur Specific [place] Urine Protein Urine Glucose (UA) Urine Ketones Urine Occult Blood Urine Nitrite Urine Bilirubin Urine Urobilinogen Ur Leukocyte Esterase Urine RBC Urine WBC Ur Squamous Epith Cells Urine Bacteria Urine Mucus COVID-19 (TYLER) POC Glucose Blood Type A POSITIVE Antibody Screen NEGATIVE Crossmatch See Detail 03/23/20 03/23/20 03/23/20 06:40 10:30 12:05 WBC RBC Hgb Hct MCV MCH MCHC RDW Std Deviation RDW Coeff of Ayesha Plt Count MPV Immature Gran % (Auto) Neut % (Auto) Lymph % (Auto) [place] % (Auto) Eos % (Auto) Baso % (Auto) Absolute Neuts (auto) Absolute Lymphs (auto) Nucleated RBC % PT INR APTT D-Dimer Quant (PE/DVT) 6.50 H* Sodium Potassium Chloride Carbon Dioxide Anion Gap BUN Creatinine Estim Creat Clear Calc Est GFR (MDRD) Af Amer Est GFR (MDRD) Non-Af BUN/Creatinine Ratio Glucose Hemoglobin A1c Lactic Acid 1.4 Calcium Total Bilirubin AST ALT Alkaline Phosphatase Lactate Dehydrogenase Total Creatine Kinase Troponin I Total Protein Albumin Globulin Albumin/Globulin Ratio Urine Color Yellow Urine Clarity Clear Urine pH 6.0 Ur Specific [place] 1.010 Urine Protein 30 H Urine Glucose (UA) Normal Urine Ketones 5 H Urine Occult Blood Negative Urine Nitrite Negative Urine Bilirubin Negative Urine Urobilinogen Normal Ur Leukocyte Esterase Negative Urine RBC 0-5 SEEN Urine WBC 0 SEEN Ur Squamous Epith Cells 0 SEEN Urine Bacteria 0 SEEN Urine Mucus 0 SEEN COVID-19 (TYLER) POC Glucose Blood Type Antibody Screen Crossmatch 03/23/20 03/23/20 03/23/20 12:05 12:05 13:35 WBC RBC Hgb Hct MCV MCH MCHC RDW Std Deviation RDW Coeff of Ayesha Plt Count MPV Immature Gran % (Auto) Neut % (Auto) Lymph % (Auto) [place] % (Auto) Eos % (Auto) Baso % (Auto) Absolute Neuts (auto) Absolute Lymphs (auto) Nucleated RBC % PT INR APTT D-Dimer Quant (PE/DVT) Sodium Potassium Chloride Carbon Dioxide Anion Gap BUN Creatinine Estim Creat Clear Calc Est GFR (MDRD) Af Amer Est GFR (MDRD) Non-Af BUN/Creatinine Ratio Glucose Hemoglobin A1c 5.6 Lactic Acid Calcium Total Bilirubin AST ALT Alkaline Phosphatase Lactate Dehydrogenase 253 H Total Creatine Kinase 474 H Troponin I 0.038 Total Protein Albumin Globulin Albumin/Globulin Ratio Urine Color Urine Clarity Urine pH Ur Specific [place] Urine Protein Urine Glucose (UA) Urine Ketones Urine Occult Blood Urine Nitrite Urine Bilirubin Urine Urobilinogen Ur Leukocyte Esterase Urine RBC Urine WBC Ur Squamous Epith Cells Urine Bacteria Urine Mucus COVID-19 (TYLER) Detected POC Glucose Blood Type Antibody Screen Crossmatch 03/23/20 03/23/20 03/23/20 14:05 15:40 17:27 WBC RBC Hgb Hct MCV MCH MCHC RDW Std Deviation RDW Coeff of Ayesha Plt Count MPV Immature Gran % (Auto) Neut % (Auto) Lymph % (Auto) [place] % (Auto) Eos % (Auto) Baso % (Auto) Absolute Neuts (auto) Absolute Lymphs (auto) Nucleated RBC % PT INR APTT D-Dimer Quant (PE/DVT) Sodium Potassium Chloride Carbon Dioxide Anion Gap BUN Creatinine Estim Creat Clear Calc Est GFR (MDRD) Af Amer Est GFR (MDRD) Non-Af BUN/Creatinine Ratio Glucose Hemoglobin A1c Lactic Acid Calcium Total Bilirubin AST ALT Alkaline Phosphatase Lactate Dehydrogenase Total Creatine Kinase Troponin I 0.024 Total Protein Albumin Globulin Albumin/Globulin Ratio Urine Color Yellow Urine Clarity Clear Urine pH 6.0 Ur Specific [place] 1.010 Urine Protein 30 H Urine Glucose (UA) Normal Urine Ketones Negative Urine Occult Blood 25 H Urine Nitrite Negative Urine Bilirubin Negative Urine Urobilinogen Normal Ur Leukocyte Esterase Negative Urine RBC 0 SEEN Urine WBC 0 SEEN Ur Squamous Epith Cells 0 SEEN Urine Bacteria 0 SEEN Urine Mucus 0 SEEN COVID-19 (TYLER) POC Glucose 162 H Blood Type Antibody Screen Crossmatch 03/23/20 03/23/20 03/24/20 18:00 20:55 03:05 WBC 10.4 RBC 2.71 L Hgb 8.7 L Hct 26.7 L MCV 98.5 H MCH 32.1 H MCHC 32.6 RDW Std Deviation 54.9 H RDW Coeff of Ayesha 15.3 H Plt Count 221 MPV 9.3 Immature Gran % (Auto) Neut % (Auto) Lymph % (Auto) [place] % (Auto) Eos % (Auto) Baso % (Auto) Absolute Neuts (auto) Absolute Lymphs (auto) Nucleated RBC % PT INR APTT D-Dimer Quant (PE/DVT) Sodium Potassium Chloride Carbon Dioxide Anion Gap BUN Creatinine Estim Creat Clear Calc Est GFR (MDRD) Af Amer Est GFR (MDRD) Non-Af BUN/Creatinine Ratio Glucose Hemoglobin A1c Lactic Acid Calcium Total Bilirubin AST ALT Alkaline Phosphatase Lactate Dehydrogenase Total Creatine Kinase Troponin I 0.026 Total Protein Albumin Globulin Albumin/Globulin Ratio Urine Color Urine Clarity Urine pH Ur Specific [place] Urine Protein Urine Glucose (UA) Urine Ketones Urine Occult Blood Urine Nitrite Urine Bilirubin Urine Urobilinogen Ur Leukocyte Esterase Urine RBC Urine WBC Ur Squamous Epith Cells Urine Bacteria Urine Mucus COVID-19 (TYLER) POC Glucose 94 Blood Type Antibody Screen Crossmatch 03/24/20 03/24/20 03:05 11:02 WBC RBC Hgb Hct MCV MCH MCHC RDW Std Deviation RDW Coeff of Ayesha Plt Count MPV Immature Gran % (Auto) Neut % (Auto) Lymph % (Auto) [place] % (Auto) Eos % (Auto) Baso % (Auto) Absolute Neuts (auto) Absolute Lymphs (auto) Nucleated RBC % PT INR APTT D-Dimer Quant (PE/DVT) Sodium 139 Potassium 4.3 Chloride 109 H Carbon Dioxide 27.0 Anion Gap 3 L BUN 31 H Creatinine 0.75 Estim Creat Clear Calc 45.11 Est GFR (MDRD) Af Amer 128 Est GFR (MDRD) Non-Af 106 BUN/Creatinine Ratio 41.5 H Glucose 139 H Hemoglobin A1c Lactic Acid Calcium 8.0 L Total Bilirubin 0.20 AST 43 H ALT 37 Alkaline Phosphatase 139 H Lactate Dehydrogenase Total Creatine Kinase Troponin I Total Protein 5.1 L Albumin 2.1 L Globulin 3.0 Albumin/Globulin Ratio 0.7 L Urine Color Urine Clarity Urine pH Ur Specific [place] Urine Protein Urine Glucose (UA) Urine Ketones Urine Occult Blood Urine Nitrite Urine Bilirubin Urine Urobilinogen Ur Leukocyte Esterase Urine RBC Urine WBC Ur Squamous Epith Cells Urine Bacteria Urine Mucus COVID-19 (TYLER) POC Glucose 155 H Blood Type Antibody Screen Crossmatch Microbiology 03/23/20 14:05 Urine Catheter - Catheter Urine Culture - Preliminary GNR lactose film critic GNR lactose film critic#2 Gram Positive Cocci 03/23/20 12:05 Blood Culture (Wb) - Left Hand Bacteria Detection (PCR) - Final Enterococcus faecium 03/23/20 12:05 Blood Culture (Wb) - Left Hand Blood Culture - Preliminary Enterococcus faecium 03/23/20 12:05 Stool Enteric Bacteriology - Final 03/23/20 12:05 Stool C. difficile DNA Amplification - Final 03/23/20 07:43 Mucosa - Nose SARS-CoV-2 Antigen (Rapid) - Final SARS-CoV-2 (COVID 19) 03/23/20 05:53 Stool Stool Occult Blood (MERRICK) - Final Occult Blood Positive Clinical Impression(s) from Imaging Studies Chest X-Ray 03/23/20 11:43 IMPRESSION: Cardiomegaly with low volume inspiration and interval development of bilateral pulmonary opacities, right slightly greater than left. Findings are compatible with atypical pneumonia with COVID 19 a consideration. Electronically Signed: Neftali Duff MD at 15:41 EST , Service support , Medical Necessity - Tobacco Use Smoking Status: Never smoker Assessment/Plan All Active Problems (Last Updated 03/24/20 @ 10:[address] Audrey Tolliver MD) Septic shock (Acute) Pneumonia due to COVID-19 virus (Acute) Acute kidney injury (Acute) Acute diarrheal illness (Acute) RECOMMENDATIONS: 1. Discontinue IV fluids 2. Encourage p.o. intake as tolerated 3. Antibiotics, Decadron and remdesivir per infectious disease 4. Monitor electrolytes closely 5. Hemodynamically stable on room air. Will sign off from a critical care perspective IMPRESSIONS: 1. Septic shock secondary to possible COVID-19 pneumonia/gastritis Patient has other sources for possible septic shock including lower extremity ulcers. Patient did have an elevated lactate on presentation, but was not hypoxic. Patient is reportedly afebrile with no leukocytosis. Patient has responded to fluid resuscitation. IV fluid should be discontinued as respiratory failure is a significant concern with COVID-19. Defer antibiotics to infectious disease. Patient has been placed on remdesivir and Decadron. Patient currently is hemodynamically stable on room air. Okay to leave the intensive care unit. Will sign off from a critical care perspective. 2. Acute kidney injury Resolved. Patient appears to have normal baseline functioning. Clinical suspicion for prerenal etiology secondary to dehydration. Patient has responded to fluids. However, will need to follow closely as patient does have a history of CHF, COVID-19 and CAD. No indication for renal replacement therapy at this time. 3. Advanced age/hyperglycemia/CAD/hypertension/PVD with chronic ulcers/hyperlipidemia Complicates care, management, recovery and prognosis. We will need to start blood sugar checks if patient is placed on Decadron therapy. Okay to continue with most baseline medications, but would hold lisinopril and Norvasc for now. Okay to continue with metoprolol to ensure diastolic filling. Inpatient E&M: 72058 Subs Hosp L2
--- NOTE | 2020-03-24 12:59 | CASEMGMT ---
Addendum entered by Nathan Olivera 03/24/20 13:21: [facility] (active for fdc) PH: [phone] FX: [phone] Original Note: RN CM Assessment Note Introduced role of CM to patient's via phone. Unable to reach the patient Demographics, PCP verified. The patient needs assistance @ home, and they have private duty aides for both pt and , and skilled home care also. has not been tested, but is aware to quarantine and her home health aides will bring groceries etc. Reviewed symptoms to contact her physician including fever, headache, GI symptoms, body aches. She has good understanding of this. COVID TESTING: positive test @ [facility] Presentation: diarrhea, rectal prolapse Diagnosis: Septic shock secondary to COVID19 pneumonia PCP: Dr. Shukla Specialists: Dr. Loera, cardiology; Dr. Huang, neurology; Dr. Rose, vascular surgery; Dr. Borjas, colorectal surgery @ (phone: [phone]) states Dr. Borjas's office may have suggestions for suppositories for patient to help with prolapse and physician can call if would like to. Insurance: [facility] Preferred Pharmacy: [facility] Prescription Benefit: yes LNOK: , Kassandra Chandler Living Arrangements: Lives with his . Patient and both need assistance with bathing, laundry, shopping and they have private duty aides through [place]. Tranportation: family drives DME: rollator, quad cane, Cpap but does not wear HHC: [facility], fdc. They called and notified RN CM of update. SNF: no Patient DC Goals: Home DC Plan: anticipate home CM available for discharge planning coordination. Contact CM for any concerns/needs that may arise. Carlos Eduardo MORENO RN ACM
[2020-03-24 18:06] LABS: Bedside Glucose 121 mg/dL (70-110)
[2020-03-24] MEDS: Acetaminophen 325 MG Tablet 650 MG PO (21:33)
[2020-03-25] VITALS (14 sets, daily range): BP systolic 125–145; BP diastolic 49–82; PULSE 73–96; RESP 16–18; TEMP 36.7–37.4; O2SAT 96–100
[2020-03-25 00:16] LABS: Bedside Glucose 134 mg/dL (70-110)
[2020-03-25 04:21] LABS: Hematocrit 26.2 % (40-54); Hemoglobin 8.4 g/dL (13.0-16.5); Mean Corp Hgb Conc 32.1 g/dL (32-36); Mean Corpuscular Hgb 31.9 pg (27.0-32.0); Mean Corpuscular Volume 99.6 fL (80-94); Mean Platelet Vol. 9.7 fl (6.2-12.0); Platelet Count 241 K/mm3 (150-450); RBC Distribution Width CV 15.5 % (11.6-14.6); RBC Distribution Width SD 56.9 fl (35.1-43.9); Red Blood Count 2.63 M/mm3 (4.6-6.2); White Blood Count 11.2 K/mm3 (4.4-11.0)
[2020-03-25 04:38] LABS: ALB/GLOB Ratio 0.7 RATIO (0.9-2.4); AST(SGOT) 34 U/L (15-37); Alanine Aminotransfer ALT/SGPT 34 U/L (16-61); Albumin, Serum 2.1 g/dL (3.2-5.0); Alkaline Phosphatase 124 U/L (45-117); Anion Gap 5 (5-15); BUN 32 mg/dL (7-18); BUN/Creat Ratio 46.2 RATIO (10-20); Calcium,Total 8.2 mg/dL (8.5-10.1); Chloride 107 mmol/L (98-107); Creatinine, Serum 0.69 mg/dL (0.70-1.30); EST Glomerular Filtration Rate 115 mL/min (>60); Est Glom Filt Rate - Afr Amer 139 mL/min (>60); Estimated Creatinine Clearance 45.11 ml/min; Globulin 3.1 g/dL (2.2-4.2); Glucose 99 mg/dL (74-106); Potassium 3.9 mmol/L (3.5-5.1); Protein, Total 5.2 g/dL (6.4-8.2); Sodium Level 139 mmol/L (136-145)
[2020-03-25] MEDS: Metoprolol(XL)Succ 25 MG Tablet 12.5 MG PO (09:56)
[2020-03-25] MEDS: amLODIPine 10 MG Tablet PO (09:56)
[2020-03-25] MEDS: Lisinopril 20 MG Tablet PO (09:57)
[2020-03-25] MEDS: Pantoprazole Sodium 20 MG Tablet PO (09:57)
[2020-03-25] MEDS: Atorvastatin Calcium 20 MG Tablet PO (09:57)
[2020-03-25] MEDS: Aspirin E.C. 81 MG Tablet PO (09:57)
[2020-03-25] MEDS: DULoxetine Hcl 30 MG Capsule PO (09:57)
[2020-03-25] MEDS: Ferrous Gluconate 324 MG Tablet PO (09:58)
[2020-03-25] MEDS: Orphenadrine 100 MG Tablet PO (09:58)
[2020-03-25] MEDS: dexAMETHasone 4 MG Tablet 6 MG PO (09:58)
[2020-03-25] MEDS: Enoxaparin 30 MG/0.3 ML Syringe SC ×2 (09:59→20:09)
--- NOTE | 2020-03-25 10:04 | PN_ITS ---
Patient Problems: Active and Suspected Problems (Last Updated 03/24/20 @ 10:[address] Audrey Tolliver MD) Septic shock (Acute) Pneumonia due to COVID-19 virus (Acute) Acute kidney injury (Acute) Acute diarrheal illness (Acute) Subjective: Chief complaint: Follow-up after admission for septic shock, COVID-19 pneumonia, acute kidney injury, abnormal cardiac enzymes and hyperglycemia. Patient seen and examined. No acute events overnight. Denies shortness of breath, having mild cough. He still having diarrhea but improving. Denies fever or chills. He remains on room air, other vital signs are stable. - Physical Exam Vitals/I&O's: Vital Signs Temp Pulse Resp BP Pulse Ox 98.8 F 84 16 141/82 H 96 03/25/20 09:29 03/25/20 09:56 03/25/20 09:29 03/25/20 09:29 03/25/20 09:29 Oxygen Flow Rate (L/min) 99 Oxygen Delivery Method Room Air Weight: 129 lb 6.581 oz Body Mass Index (BMI) 21.6 Intake and Output for Last 24 Hours 03/23/20 03/24/20 03/25/20 23:59 23:59 23:59 Intake Total 1862.5 / 1862.5 1745.00 / 1865.00 360 / 360 Output Total 400 / 400 400 / 400 Balance 1462.5 / 1462.5 1345.00 / 1465.00 360 / 360 General: Alert, Oriented x3, Cooperative, No apparent distress HEENT: Atraumatic, PERRLA, EOMI, Normocephalic Oral: Moist Mucosa, No Gingival or Mucosal Lesions/ Ulcerations Neck: Supple, No JVD, Negative Carotid Bruits, Trachea Midline, Thyroid Normal Size and Texture Lungs: Clear to auscultation, No rhonchi, No wheeze, No rales, Diminished Cardiovascular: Regular rate, Regular Rhythm, Normal S1, Normal S2, PMI Normal Abdomen: Bowel Sounds Present, Soft, Non Tender, Non-Distended, No Hepato- splenomegaly Extremities: No clubbing, No cyanosis, No edema Skin: No rashes, No breakdown Lymphatic: No Cervical, Supraclavicular, or Inguinal Adenopathy Neurological: Cranial nerves II-XII grossly intact, Neuro grossly intact Psych/Mental Status: Normal Affect, Appropriate, Alert and oriented to time, place, person, mood and affect Microbiology Past 72 Hours 03/23/20 12:05 Blood Culture (Wb) - Left Hand Bacteria Detection (PCR) - Final Enterococcus faecium 03/23/20 12:05 Blood Culture (Wb) - Left Hand Blood Culture - Preliminary Enterococcus faecium 03/23/20 14:05 Urine Catheter - Catheter Urine Culture - Preliminary GNR lactose partner GNR lactose partner#2 Gram Positive Cocci 03/23/20 12:05 Stool Enteric Bacteriology - Final 03/23/20 12:05 Stool C. difficile DNA Amplification - Final 03/23/20 07:43 Mucosa - Nose SARS-CoV-2 Antigen (Rapid) - Final SARS-CoV-2 (COVID 19) 03/23/20 05:53 Stool Stool Occult Blood (MERRICK) - Final Occult Blood Positive Laboratory Results 03/24/20 11:02: POC Glucose 155 H 03/24/20 16:10: POC Glucose 121 H 03/24/20 21:29: POC Glucose 134 H 03/25/20 03:50: WBC 11.2 H, RBC 2.63 L, Hgb 8.4 L, Hct 26.2 L, MCV 99.6 H, MCH 31.9, MCHC 32.1, RDW Std Deviation 56.9 H, RDW Coeff of Ayesha 15.5 H, Plt Count 241, MPV 9.7 03/25/20 03:50: Sodium 139, Potassium 3.9, Chloride 107, Carbon Dioxide 27.0, Anion Gap 5, BUN 32 H, Creatinine 0.69 L, Estim Creat Clear Calc 45.11, Est GFR (MDRD) Af Amer 139, Est GFR (MDRD) Non-Af 115, BUN/Creatinine Ratio 46.2 H, Glucose 99, Calcium 8.2 L, Total Bilirubin 0.20, AST 34, ALT 34, Alkaline Phosphatase 124 H, Total Protein 5.2 L, Albumin 2.1 L, Globulin 3.1, Albumin/Globulin Ratio 0.7 L Current Medications Acetaminophen (Acetaminophen 325 Mg Tablet) 650 mg PO Q6H PRN PRN PRN Reason: Pain Score 1-10/Temp > 100.7 F Last Admin: 03/24/20 21:33 Dose: 650 mg Documented by: Amlodipine Besylate (Amlodipine 10 Mg Tablet) 10 mg PO DAILY [facility] Last Admin: 03/25/20 09:56 Dose: 10 mg Documented by: Aspirin (Aspirin E.C. 81 Mg Tablet) 81 mg PO DAILY [facility] Last Admin: 03/25/20 09:57 Dose: 81 mg Documented by: Atorvastatin Calcium (Atorvastatin Calcium 20 Mg Tablet) 20 mg PO DAILY [facility] Last Admin: 03/25/20 09:57 Dose: 20 mg Documented by: Dexamethasone (Dexamethasone 4 Mg Tablet) 6 mg PO DAILY [facility] Stop: 04/01/20 10:01 Last Admin: 03/25/20 09:58 Dose: 6 mg Documented by: Duloxetine HCl (Duloxetine Hcl 30 Mg Capsule) 30 mg PO DAILY [facility] Last Admin: 03/25/20 09:57 Dose: 30 mg Documented by: Enoxaparin Sodium (Enoxaparin 30 Mg/0.3 Ml Syringe) 30 mg SC BID [facility] Last Admin: 03/25/20 09:59 Dose: 30 mg Documented by: Ferrous Gluconate (Ferrous Gluconate 324 Mg Tablet) 324 mg PO DAILY [facility] Last Admin: 03/25/20 09:58 Dose: 324 mg Documented by: Sodium Chloride () 250 mls @ 15 mls/hr IV .[id number] PRN PRN Reason: Saline Flush Sodium Chloride () 250 mls @ 15 mls/hr IV .[id number] PRN PRN Reason: Additional IVPB Infusion Remdesivir 100 mg/ Sodium (Chloride) 250 mls @ 125 mls/hr IV DAILY [facility]; Protocol Stop: 03/27/20 11:59 Last Infusion: 03/24/20 14:52 Dose: Infused Documented by: Insulin Human Lispro (Insulin Lispro 100 Unit/Ml Insuln.Pen) 0 unit [facility]; Protocol Last Admin: 03/25/20 07:12 Dose: Not Given Documented by: Lisinopril (Lisinopril 20 Mg Tablet) 20 mg PO DAILY [facility] Last Admin: 03/25/20 09:57 Dose: 20 mg Documented by: Loperamide HCl (Loperamide 2 Mg Capsule) 2 mg PO Q4H PRN PRN PRN Reason: DIARRHEA Metoprolol Succinate (Metoprolol(Xl)Succ 25 Mg Tablet) 12.5 mg PO DAILY [facility] Last Admin: 03/25/20 09:56 Dose: 12.5 mg Documented by: Nutritional Formula (Nutritional Supplement (Tim) Packet) 1 packet PO BIDCM [facility] Last Admin: 03/25/20 07:54 Dose: 1 packet Documented by: Ondansetron HCl (Ondansetron 4 Mg/2 Ml Vial) 4 mg IV Q8H PRN PRN PRN Reason: NAUSEA/VOMITING Orphenadrine Citrate (Orphenadrine 100 Mg Tablet) 100 mg PO DAILY [facility] Last Admin: 03/25/20 09:58 Dose: 100 mg Documented by: Pantoprazole Sodium (Pantoprazole Sodium 20 Mg Tablet) 20 mg PO DAILY [facility] Last Admin: 03/25/20 09:57 Dose: 20 mg Documented by: Sodium Chloride (0.9% Saline Lock 10 Ml Syringe) 10 - 40 ml IV UD PRN PRN Reason: SALINE FLUSH Last Admin: 03/24/20 08:18 Dose: 20 ml Documented by: Medical Necessity - Tobacco Use Smoking Status: Never smoker Assessment/Plan All Active Problems (Last Updated 03/24/20 @ 10:[address] Audrey Tolliver MD) Septic shock (Acute) Pneumonia due to COVID-19 virus (Acute) Acute kidney injury (Acute) Acute diarrheal illness (Acute) This is an 84 years old male patient presented to the emergency room because of weakness, fatigue, abdominal pain and diarrhea and he was found to have septic shock, tested positive for COVID-19 antigens and also found to have acute kidney injury and abnormal cardiac enzymes. #1 septic shock: Attributed to COVID-19 pneumonia versus severe dehydration secondary to diarrhea. Lactic acid is back to normal with IV fluids. It is resolved. Vital signs are stable. COVID-19 PCR was positive. Stools for C. difficile and enteric pathogens were negative. 1 set of blood culture revealed Enterococcus faecium, repeat blood cultures pending. Infectious disease on the case as well as critical care. Plan to continue same treatment. #2 COVID-19 pneumonia: Both COVID-19 antigen and COVID-19 PCR came back p ositive. Remained on IV Decadron and remdesivir. Chest x-ray reviewed. CT scan abdomen revealed mild bilateral basilar infiltrate. Patient remained on room air, no shortness of breath. Currently, patient is afebrile, no leukocytosis, on room air. #3 Enterococcal bacteremia: Unclear source, could be due to contamination. He has been afebrile, no leukocytosis. Received 1 dose of IV vancomycin. Currently, he is not on IV antibiotics. Repeat blood cultures pending. Infectious disease on the case. Currently, he is not on IV antibiotics. #4 acute kidney injury: Probably due to acute dialysis, dehydration. Baseline kidney function is normal. Today's creatinine is 0.69, it is back to normal. Encourage oral intake. #5 abnormal cardiac enzymes: EKG reviewed, no acute ischemic changes. Patient denied any chest pain. Could be due to demand ischemia. Troponin is trending down, it is back to normal. Continue aspirin and statins as well as beta- blockers. #6 hyperglycemia: Without history of diabetes. It is likely due to IV steroids. Hemoglobin A1c was 5.6%. Plan to continue Accu-Cheks and sliding scale while on IV steroids. #7 acute diarrheal illness: Stool for C. difficile and enteric pathogens were negative. It is likely due to COVID-19. Continue Imodium as needed. #8 CAD status post stents: EKG reviewed as above. Continue aspirin, Lipitor, metoprolol, lisinopril held. #9 hypertension: Blood pressure stable, continue Norvasc and lisinopril. #10 peripheral vascular disease/chronic bilateral leg ulcers: Without obvious evidence of acute infection. Wound care nurse consulted. #11 hyperlipidemia: Continue statins. #12 DVT prophylaxis: Subcu Lovenox twice daily. This note was generated with [employer] dictation software. It may contain incorrect words, spelling, and punctuation that were not noted in checking the note before signing. Inpatient E&M: 65569 Subs Hosp L2
[2020-03-25 11:21] LABS: Bedside Glucose 101 mg/dL (70-110)
[2020-03-25] MEDS: Insulin Lispro 100 UNIT/ML INSULN.PEN SC ×2 (12:05→20:09)
[2020-03-25 12:21] LABS: Bedside Glucose 170 mg/dL (70-110)
[2020-03-25 17:26] LABS: Bedside Glucose 148 mg/dL (70-110)
[2020-03-25 20:26] LABS: Bedside Glucose 162 mg/dL (70-110)
--- NOTE | 2020-03-25 22:30 | NURSING ---
Report given to Luz duran at this time.
[2020-03-26] VITALS (14 sets, daily range): BP systolic 113–143; BP diastolic 60–77; PULSE 63–89; RESP 16–18; TEMP 36.7–37.1; O2SAT 97–99
[2020-03-26] MEDS: Acetaminophen 325 MG Tablet 650 MG PO (05:01)
[2020-03-26 05:41] LABS: Hematocrit 27.5 % (40-54); Hemoglobin 8.8 g/dL (13.0-16.5); Mean Corpuscular Hgb 31.4 pg (27.0-32.0); Mean Corpuscular Volume 98.2 fL (80-94); Mean Platelet Vol. 9.7 fl (6.2-12.0); Platelet Count 278 K/mm3 (150-450); RBC Distribution Width CV 15.2 % (11.6-14.6); White Blood Count 11.1 K/mm3 (4.4-11.0)
[2020-03-26 06:01] LABS: ALB/GLOB Ratio 0.8 RATIO (0.9-2.4); AST(SGOT) 30 U/L (15-37); Alanine Aminotransfer ALT/SGPT 34 U/L (16-61); Albumin, Serum 2.1 g/dL (3.2-5.0); Alkaline Phosphatase 111 U/L (45-117); Anion Gap 5 (5-15); BUN 39 mg/dL (7-18); BUN/Creat Ratio 58.6 RATIO (10-20); Chloride 104 mmol/L (98-107); Creatinine, Serum 0.67 mg/dL (0.70-1.30); EST Glomerular Filtration Rate 121 mL/min (>60); Est Glom Filt Rate - Afr Amer 146 mL/min (>60); Estimated Creatinine Clearance 44.84 ml/min; Globulin 2.6 g/dL (2.2-4.2); Glucose 109 mg/dL (74-106); Protein, Total 4.7 g/dL (6.4-8.2); Sodium Level 138 mmol/L (136-145)
[2020-03-26 06:41] LABS: Bedside Glucose 111 mg/dL (70-110)
--- NOTE | 2020-03-26 09:25 | PCM.PROGNOTE ---
Patient Problems: Active and Suspected Problems (Last Updated 03/24/20 @ 10:[address] Audrey Tolliver MD) Septic shock (Acute) Pneumonia due to COVID-19 virus (Acute) Acute kidney injury (Acute) Acute diarrheal illness (Acute) Subjective: Chief complaint: Follow-up after admission for septic shock, COVID-19 pneumonia, acute kidney injury, abnormal cardiac enzymes and hyperglycemia. Patient seen and examined. No acute events overnight. Today, he denied any complaints. Breathing is okay. Diarrhea is getting better. Denied fever or chills. He remained on room air, other vital signs are stable. - Physical Exam Vitals/I&O's: Vital Signs Temp Pulse Resp BP Pulse Ox 98.7 F 79 18 143/77 H 97 03/26/20 04:53 03/26/20 07:00 03/26/20 04:53 03/26/20 04:53 03/25/20 22:41 Oxygen Flow Rate (L/min) 99 Oxygen Delivery Method Room Air Weight: 127 lb 13.89 oz Body Mass Index (BMI) 21.6 Intake and Output for Last 24 Hours 03/24/20 03/25/20 03/26/20 23:59 23:59 23:59 Intake Total 1745.00 / 1865.00 1430 / 1430 60 / 60 Output Total 400 / 400 Balance 1345.00 / 1465.00 1430 / 1430 60 / 60 General: Alert, Cooperative, No apparent distress, Well developed HEENT: Atraumatic, PERRLA, EOMI, Normocephalic Oral: Moist Mucosa, No Gingival or Mucosal Lesions/ Ulcerations Neck: Supple, No JVD, Negative Carotid Bruits, Trachea Midline, Thyroid Normal Size and Texture Lungs: Clear to auscultation, No rhonchi, No wheeze, No rales, Diminished Cardiovascular: Regular rate, Regular Rhythm, Normal S1, Normal S2, PMI Normal Abdomen: Bowel Sounds Present, Soft, Non Tender, Non-Distended, No Hepato-splenomegaly Extremities: No clubbing, No cyanosis, No edema Skin: No rashes, No breakdown Lymphatic: No Cervical, Supraclavicular, or Inguinal Adenopathy Neurological: Cranial nerves II-XII grossly intact, Neuro grossly intact Psych/Mental Status: Normal Affect, Appropriate Microbiology Past 72 Hours 03/23/20 14:05 Urine Catheter - Catheter Urine Culture - Final Klebsiella oxytoca Escherichia coli Enterococcus faecium 03/23/20 14:05 Blood Culture (Wb) - Left Wrist Blood Culture - Preliminary No growth in 48 hours. 03/23/20 12:05 Blood Culture (Wb) - Left Hand Bacteria Detection (PCR) - Final Enterococcus faecium 03/23/20 12:05 Blood Culture (Wb) - Left Hand Blood Culture - Preliminary Enterococcus faecium 03/23/20 12:05 Stool Enteric Bacteriology - Final 03/23/20 12:05 Stool C. difficile DNA Amplification - Final 03/23/20 07:43 Mucosa - Nose SARS-CoV-2 Antigen (Rapid) - Final SARS-CoV-2 (COVID 19) 03/23/20 05:53 Stool Stool Occult Blood (MERRICK) - Final Occult Blood Positive Laboratory Results 03/25/20 07:12: POC Glucose 101 03/25/20 12:04: POC Glucose 170 H 03/25/20 17:07: POC Glucose 148 H 03/25/20 20:02: POC Glucose 162 H 03/26/20 04:46: WBC 11.1 H, RBC 2.80 L, Hgb 8.8 L, Hct 27.5 L, MCV 98.2 H, MCH 31.4, MCHC 32.0, RDW Std Deviation 55.0 H, RDW Coeff of Ayesha 15.2 H, Plt Count 278, MPV 9.7 03/26/20 04:46: Sodium 138, Potassium 4.0, Chloride 104, Carbon Dioxide 29.0, Anion Gap 5, BUN 39 H, Creatinine 0.67 L, Estim Creat Clear Calc 44.84, Est GFR (MDRD) Af Amer 146, Est GFR (MDRD) Non-Af 121, BUN/Creatinine Ratio 58.6 H, Glucose 109 H, Calcium 8.0 L, Total Bilirubin 0.20, AST 30, ALT 34, Alkaline Phosphatase 111, Total Protein 4.7 L, Albumin 2.1 L, Globulin 2.6, Albumin/Globulin Ratio 0.8 L 03/26/20 06:24: POC Glucose 111 H Microbiology 03/23/20 14:05 Urine Catheter - Catheter Urine Culture - Final Klebsiella oxytoca Escherichia coli Enterococcus faecium 03/23/20 14:05 Blood Culture (Wb) - Left Wrist Blood Culture - Preliminary No growth in 48 hours. 03/23/20 12:05 Blood Culture (Wb) - Left Hand Bacteria Detection (PCR) - Final Enterococcus faecium 03/23/20 12:05 Blood Culture (Wb) - Left Hand Blood Culture - Preliminary Enterococcus faecium 03/23/20 12:05 Stool Enteric Bacteriology - Final 03/23/20 12:05 Stool C. difficile DNA Amplification - Final 03/23/20 07:43 Mucosa - Nose SARS-CoV-2 Antigen (Rapid) - Final SARS-CoV-2 (COVID 19) 03/23/20 05:53 Stool Stool Occult Blood (MERRICK) - Final Occult Blood Positive Current Medications Acetaminophen (Acetaminophen 325 Mg Tablet) 650 mg PO Q6H PRN PRN PRN Reason: Pain Score 1-10/Temp > 100.7 F Last Admin: 03/26/20 05:01 Dose: 650 mg Documented by: Amlodipine Besylate (Amlodipine 10 Mg Tablet) 10 mg PO DAILY [facility] Last Admin: 03/25/20 09:56 Dose: 10 mg Documented by: Aspirin (Aspirin E.C. 81 Mg Tablet) 81 mg PO DAILY [facility] Last Admin: 03/25/20 09:57 Dose: 81 mg Documented by: Atorvastatin Calcium (Atorvastatin Calcium 20 Mg Tablet) 20 mg PO DAILY [facility] Last Admin: 03/25/20 09:57 Dose: 20 mg Documented by: Dexamethasone (Dexamethasone 4 Mg Tablet) 6 mg PO DAILY [facility] Stop: 04/01/20 10:01 Last Admin: 03/25/20 09:58 Dose: 6 mg Documented by: Duloxetine HCl (Duloxetine Hcl 30 Mg Capsule) 30 mg PO DAILY [facility] Last Admin: 03/25/20 09:57 Dose: 30 mg Documented by: Enoxaparin Sodium (Enoxaparin 30 Mg/0.3 Ml Syringe) 30 mg SC BID [facility] Last Admin: 03/25/20 20:09 Dose: 30 mg Documented by: Ferrous Gluconate (Ferrous Gluconate 324 Mg Tablet) 324 mg PO DAILY [facility] Last Admin: 03/25/20 09:58 Dose: 324 mg Documented by: Sodium Chloride () 250 mls @ 15 mls/hr IV .[id number] PRN PRN Reason: Saline Flush Sodium Chloride () 250 mls @ 15 mls/hr IV .[id number] PRN PRN Reason: Additional IVPB Infusion Remdesivir 100 mg/ Sodium (Chloride) 250 mls @ 125 mls/hr IV DAILY [facility]; Protocol Stop: 03/27/20 11:59 Last Infusion: 03/25/20 13:06 Dose: Infused Documented by: Insulin Human Lispro (Insulin Lispro 100 Unit/Ml Insuln.Pen) 0 unit SC ACHS [facility]; Protocol Last Admin: 03/26/20 06:26 Dose: Not Given Documented by: Lisinopril (Lisinopril 20 Mg Tablet) 20 mg PO DAILY [facility] Last Admin: 03/25/20 09:57 Dose: 20 mg Documented by: Loperamide HCl (Loperamide 2 Mg Capsule) 2 mg PO Q4H PRN PRN PRN Reason: DIARRHEA Metoprolol Succinate (Metoprolol(Xl)Succ 25 Mg Tablet) 12.5 mg PO DAILY [facility] Last Admin: 03/25/20 09:56 Dose: 12.5 mg Documented by: Nutritional Formula (Nutritional Supplement (Tim) Packet) 1 packet PO BID [facility] Ondansetron HCl (Ondansetron 4 Mg/2 Ml Vial) 4 mg IV Q8H PRN PRN PRN Reason: NAUSEA/VOMITING Orphenadrine Citrate (Orphenadrine 100 Mg Tablet) 100 mg PO DAILY [facility] Last Admin: 03/25/20 09:58 Dose: 100 mg Documented by: Pantoprazole Sodium (Pantoprazole Sodium 20 Mg Tablet) 20 mg PO DAILY [facility] Last Admin: 03/25/20 09:57 Dose: 20 mg Documented by: Sodium Chloride (0.9% Saline Lock 10 Ml Syringe) 10 - 40 ml IV UD PRN PRN Reason: SALINE FLUSH Last Admin: 03/24/20 08:18 Dose: 20 ml Documented by: Medical Necessity - Tobacco Use Smoking Status: Never smoker Assessment/Plan All Active Problems (Last Updated 03/24/20 @ 10:[address] Audrey Tolliver MD) Septic shock (Acute) Pneumonia due to COVID-19 virus (Acute) Acute kidney injury (Acute) Acute diarrheal illness (Acute) This is an 84 years old male patient presented to the emergency room because of weakness, fatigue, abdominal pain and diarrhea and he was found to have septic shock, tested positive for COVID-19 antigens and also found to have acute kidney injury and abnormal cardiac enzymes. #1 septic shock: Resolved with. Attributed to COVID-19 pneumonia versus severe dehydration secondary to diarrhea. Lactic acid is back to normal with IV fluids. Vital signs are stable. COVID-19 PCR was positive. Stools for C. difficile and enteric pathogens were negative. Blood culture revealed Enterococcus faecium, repeat blood cultures pending. Infectious disease on the case as well as critical care. Plan to continue same treatment, ambulate, PT OT, discharge planning. #2 COVID-19 pneumonia: Both COVID-19 antigen and COVID-19 PCR came back positive. Remained on IV Decadron and remdesivir. Chest x-ray reviewed. CT scan abdomen revealed mild bilateral basilar infiltrate. Patient remained on room air, no shortness of breath. Currently, patient is afebrile, no leukocytosis, on room air. #3 Enterococcal bacteremia: Unclear source, could be due to contamination. He has been afebrile, no leukocytosis. Received 1 dose of IV vancomycin. Currently, he is not on IV antibiotics. Repeat blood cultures pending. Urine culture also revealed Klebsiella oxytocin, E. coli and Enterococcus faecium. Infectious disease on the case. #4 acute kidney injury: Probably due to acute dialysis, dehydration. Baseline kidney function is normal. Today's creatinine is 0.67, it is back to normal. Encourage oral intake. #5 abnormal cardiac enzymes: EKG reviewed, no acute ischemic changes. Patient denied any chest pain. Could be due to demand ischemia. Troponin is trending down, it is back to normal. Continue aspirin and statins as well as beta-blockers. #6 hyperglycemia: Without history of diabetes. It is likely due to IV steroids. Hemoglobin A1c was 5.6%. continue Accu-Cheks and sliding scale while on IV steroids. #7 acute diarrheal illness: Stool for C. difficile and enteric pathogens were negative. It is likely due to COVID-19. Continue Imodium as needed, it is improving. #8 CAD status post stents: EKG reviewed as above. Continue aspirin, Lipitor, metoprolol, lisinopril held. #9 hypertension: Blood pressure stable, continue Norvasc and lisinopril. #10 peripheral vascular disease/chronic bilateral leg ulcers: Without obvious evidence of acute infection. Wound care nurse consulted. #11 hyperlipidemia: Continue statins. #12 DVT prophylaxis: Subcu Lovenox twice daily. This note was generated with Dragon dictation software. It may contain incorrect words, spelling, and punctuation that were not noted in checking the note before signing. Inpatient E&M: 30906 Subs Hosp L2
[2020-03-26] MEDS: Aspirin E.C. 81 MG Tablet PO (10:52)
[2020-03-26] MEDS: dexAMETHasone 4 MG Tablet 6 MG PO (10:52)
[2020-03-26] MEDS: Enoxaparin 30 MG/0.3 ML Syringe SC ×2 (10:52→19:56)
[2020-03-26] MEDS: DULoxetine Hcl 30 MG Capsule PO (10:52)
[2020-03-26] MEDS: Metoprolol(XL)Succ 25 MG Tablet 12.5 MG PO (10:53)
[2020-03-26] MEDS: Atorvastatin Calcium 20 MG Tablet PO (10:53)
[2020-03-26] MEDS: Orphenadrine 100 MG Tablet PO (10:54)
[2020-03-26] MEDS: Ferrous Gluconate 324 MG Tablet PO (10:54)
[2020-03-26] MEDS: amLODIPine 10 MG Tablet PO (10:54)
[2020-03-26] MEDS: Pantoprazole Sodium 20 MG Tablet PO (10:54)
[2020-03-26] MEDS: Lisinopril 20 MG Tablet PO (10:55)
[2020-03-26] MEDS: 0.9% Saline Lock 10 ML Syringe IV (10:55)
--- NOTE | 2020-03-26 10:59 | PCM.PN.ID ---
Patient Problems: Active and Suspected Problems (Last Updated 03/24/20 @ 10:[address] Audrey Tolliver MD) Septic shock (Acute) Pneumonia due to COVID-19 virus (Acute) Acute kidney injury (Acute) Acute diarrheal illness (Acute) Subjective: Feeling ok, breathing fine, not sure about home vs ECF - Physical Exam Vitals/I&O's: Vital Signs Temp Pulse Resp BP Pulse Ox 98.3 F 66 18 123/72 H 99 03/26/20 10:50 03/26/20 10:50 03/26/20 10:50 03/26/20 10:50 03/26/20 10:54 Oxygen Flow Rate (L/min) 99 Oxygen Delivery Method Room Air Weight: 58 kg Body Mass Index (BMI) 21.6 Intake and Output for Last 24 Hours 03/24/20 03/25/20 03/26/20 23:59 23:59 23:59 Intake Total 1745.00 / 1865.00 1430 / 1430 60 / 60 Output Total 400 / 400 Balance 1345.00 / 1465.00 1430 / 1430 60 / 60 General: Alert, Cooperative, No apparent distress Lungs: Clear to auscultation, Diminished Cardiovascular: Regular rate, Regular Rhythm Abdomen: Soft, Non Tender, Non-Distended Skin: No rashes Microbiology Past 72 Hours 03/23/20 14:05 Urine Catheter - Catheter Urine Culture - Final Klebsiella oxytoca Escherichia coli Enterococcus faecium 03/23/20 14:05 Blood Culture (Wb) - Left Wrist Blood Culture - Preliminary No growth in 48 hours. 03/23/20 12:05 Blood Culture (Wb) - Left Hand Bacteria Detection (PCR) - Final Enterococcus faecium 03/23/20 12:05 Blood Culture (Wb) - Left Hand Blood Culture - Preliminary Enterococcus faecium 03/23/20 12:05 Stool Enteric Bacteriology - Final 03/23/20 12:05 Stool C. difficile DNA Amplification - Final 03/23/20 07:43 Mucosa - Nose SARS-CoV-2 Antigen (Rapid) - Final SARS-CoV-2 (COVID 19) 03/23/20 05:53 Stool Stool Occult Blood (MERRICK) - Final Occult Blood Positive Laboratory Results 03/23/20 05:35: Crossmatch See Detail 03/25/20 07:12: POC Glucose 101 03/25/20 12:04: POC Glucose 170 H 03/25/20 17:07: POC Glucose 148 H 03/25/20 20:02: POC Glucose 162 H 03/26/20 04:46: WBC 11.1 H, RBC 2.80 L, Hgb 8.8 L, Hct 27.5 L, MCV 98.2 H, MCH 31.4, MCHC 32.0, RDW Std Deviation 55.0 H, RDW Coeff of Ayesha 15.2 H, Plt Count 278, MPV 9.7 03/26/20 04:46: Sodium 138, Potassium 4.0, Chloride 104, Carbon Dioxide 29.0, Anion Gap 5, BUN 39 H, Creatinine 0.67 L, Estim Creat Clear Calc 44.84, Est GFR (MDRD) Af Amer 146, Est GFR (MDRD) Non-Af 121, BUN/Creatinine Ratio 58.6 H, Glucose 109 H, Calcium 8.0 L, Total Bilirubin 0.20, AST 30, ALT 34, Alkaline Phosphatase 111, Total Protein 4.7 L, Albumin 2.1 L, Globulin 2.6, Albumin/Globulin Ratio 0.8 L 03/26/20 06:24: POC Glucose 111 H Current Medications Acetaminophen (Acetaminophen 325 Mg Tablet) 650 mg PO Q6H PRN PRN PRN Reason: Pain Score 1-10/Temp > 100.7 F Last Admin: 03/26/20 05:01 Dose: 650 mg Documented by: Amlodipine Besylate (Amlodipine 10 Mg Tablet) 10 mg PO DAILY [facility] Last Admin: 03/25/20 09:56 Dose: 10 mg Documented by: Aspirin (Aspirin E.C. 81 Mg Tablet) 81 mg PO DAILY [facility] Last Admin: 03/25/20 09:57 Dose: 81 mg Documented by: Atorvastatin Calcium (Atorvastatin Calcium 20 Mg Tablet) 20 mg PO DAILY [facility] Last Admin: 03/25/20 09:57 Dose: 20 mg Documented by: Dexamethasone (Dexamethasone 4 Mg Tablet) 6 mg PO DAILY [facility] Stop: 04/01/20 10:01 Last Admin: 03/25/20 09:58 Dose: 6 mg Documented by: Duloxetine HCl (Duloxetine Hcl 30 Mg Capsule) 30 mg PO DAILY [facility] Last Admin: 03/25/20 09:57 Dose: 30 mg Documented by: Enoxaparin Sodium (Enoxaparin 30 Mg/0.3 Ml Syringe) 30 mg SC BID [facility] Last Admin: 03/25/20 20:09 Dose: 30 mg Documented by: Ferrous Gluconate (Ferrous Gluconate 324 Mg Tablet) 324 mg PO DAILY [facility] Last Admin: 03/25/20 09:58 Dose: 324 mg Documented by: Sodium Chloride () 250 mls @ 15 mls/hr IV .[id number] PRN PRN Reason: Saline Flush Sodium Chloride () 250 mls @ 15 mls/hr IV .[id number] PRN PRN Reason: Additional IVPB Infusion Remdesivir 100 mg/ Sodium (Chloride) 250 mls @ 125 mls/hr IV DAILY [facility]; Protocol Stop: 03/27/20 11:59 Last Infusion: 03/25/20 13:06 Dose: Infused Documented by: Insulin Human Lispro (Insulin Lispro 100 Unit/Ml Insuln.Pen) 0 unit SC [facility]; Protocol Last Admin: 03/26/20 06:26 Dose: Not Given Documented by: Lisinopril (Lisinopril 20 Mg Tablet) 20 mg PO DAILY [facility] Last Admin: 03/25/20 09:57 Dose: 20 mg Documented by: Loperamide HCl (Loperamide 2 Mg Capsule) 2 mg PO Q4H PRN PRN PRN Reason: DIARRHEA Metoprolol Succinate (Metoprolol(Xl)Succ 25 Mg Tablet) 12.5 mg PO DAILY [facility] Last Admin: 03/25/20 09:56 Dose: 12.5 mg Documented by: Nutritional Formula (Nutritional Supplement (Tim) Packet) 1 packet PO BID [facility] Ondansetron HCl (Ondansetron 4 Mg/2 Ml Vial) 4 mg IV Q8H PRN PRN PRN Reason: NAUSEA/VOMITING Orphenadrine Citrate (Orphenadrine 100 Mg Tablet) 100 mg PO DAILY [facility] Last Admin: 03/25/20 09:58 Dose: 100 mg Documented by: Pantoprazole Sodium (Pantoprazole Sodium 20 Mg Tablet) 20 mg PO DAILY [facility] Last Admin: 03/25/20 09:57 Dose: 20 mg Documented by: Sodium Chloride (0.9% Saline Lock 10 Ml Syringe) 10 - 40 ml IV UD PRN PRN Reason: SALINE FLUSH Last Admin: 03/24/20 08:18 Dose: 20 ml Documented by: Medical Necessity - Tobacco Use Smoking Status: Never smoker Route of nutrition/ use of supplements: [] Nutritional Intake: [] IV Site: [] Diana Catheter: [] - Assessment/Plan Antibiotics: [] Assessment/Plan: [] Active and Suspected Problems (Last Updated 03/23/20 @ 11:[address] Audrey Tolliver MD) Acute diarrheal illness (Acute) Pneumonia due to COVID-19 virus (Acute) Septic shock (Acute) covid with hypoxia (sat as low as 94 on RA). On dex, lovenox 30mg bid, remdesivir. Covid pcr (+). D-dimer high at 6.5. Single bcx with enterococcus overnight, given dose of vanc, will repeat bcx, suspected contaminant. Plan on discharge to complete 10 total days of dex, 2 weeks of low dose xa inhibitor (xarelto 10mg daily or eliquis 2.5mg bid) Will follow
[2020-03-26] MEDS: Insulin Lispro 100 UNIT/ML INSULN.PEN SC ×2 (11:21→20:05)
--- NOTE | 2020-03-26 15:08 | CASEMGMT ---
Social Work Nursing reporting that pt is requesting to go to SNF. Phone call to pt room to discuss discharge plan. Pt stating he is concerned that he will return home and infect his . SW discussed possibility of staying in separate rooms and bathrooms, wearing masks and cleaning in common areas. SW reviewed therapy notes with pt and pt did require Max A with toileting and mod A for sit to stand and ambulation. Pt feels he would benefit from SNF prior to return home for rehabilitation and time to recover from Covid. SW provided list of facilities that are accepting covid positive patients. With pt permission, phone call to pt to discuss discharge plan. After lengthy discussion with , she also feels pt would benefit from SNF. SW reviewed list of SNFs accepting Covid positive patients and explained the Medicare Star Rating system and provided the star ratings of the facilities. would like to speak with her and son to pick facility and will then call SW back with decision. ABDON Recio
[2020-03-26 15:31] LABS: Bedside Glucose 194 mg/dL (70-110)
--- NOTE | 2020-03-26 15:34 | CHAPLAIN ---
Type of Pastoral Visit ___ Initial Visit ___ Follow-up Visit ___ On-call Visit ___ General Patient Visit ___ Spiritual Assessment ___ Family Conference ___ Bereavement ___ Rapid Response ___ Code Blue _x__ Other (describe below) Pastoral Care Referral From ___ Patient ___ Family ___ Nurse ___ Physician ___ Healthcare Management ___ Firearms Specialist _x__ Other (describe below) Sacrament/Intervention _x__ Active listening ___ Anointing ___ Buddhism ___ Bereavement ___ Communion ___ Geraldine exploration ___ ___ Life review _x__ Prayer ___ Reconciliation ___ Sacrament of Sick _x_ Supportive presence ___ Wedding ___ Other (describe below) Pastoral Comments patient called due to his being in isolation; pt voiced concern about what he will be doing and where going at discharge; assured pt that CM and SW would help with this need; made call to CM and she will address concern with the pt as this is being worked on for pt; pt welcomes the call of support and the prayer; pt is member of [facility]
--- NOTE | 2020-03-26 17:03 | CASEMGMT ---
Social Work MS2 Received call from patient's Kassandra Chandler and son Mark Chandler. Wive reviewed conversation earlier this date with ABDON Hernandez regarding discharge planning, but reports had to end the conversation quickly and wanted to continue conversation. Answered the 's and son's questions about aftercare needs, medicare coverage/benefits, medicare compare website, and also SNF's that are accepting COVID positive patients. continues to be in agreement with SNF placement in light of patient's multiple comorbidities, and due to needing hands on assist of 2 for care. Emotional support and supportive listening offered. After much conversation the family is agreeable with these facilities being referred to: [facility], and [facility]. The family plans to so some research of their own this evening, and plan to touch base with Sheron COPPOLA on Monday. Family expressed much appreciation for phone call and for the care of this patient. Handoff report to Sheron. Plan: Anticipate SNF placement at time of discharge. -IMER Gerard, ARTIST'S REPRESENTATIVE
[2020-03-26 17:15] LABS: Bedside Glucose 142 mg/dL (70-110)
[2020-03-26 21:21] LABS: Bedside Glucose 162 mg/dL (70-110)
[2020-03-27] VITALS (7 sets, daily range): BP systolic 118–142; BP diastolic 60–79; PULSE 60–79; RESP 16–18; TEMP 36.6–37.1; O2SAT 96–98
[2020-03-27 06:35] LABS: Bedside Glucose 130 mg/dL (70-110)
[2020-03-27 06:42] LABS: Hematocrit 29.6 % (40-54); Hemoglobin 9.5 g/dL (13.0-16.5); Mean Corp Hgb Conc 32.1 g/dL (32-36); Mean Corpuscular Hgb 31.3 pg (27.0-32.0); Mean Corpuscular Volume 97.4 fL (80-94); Mean Platelet Vol. 9.8 fl (6.2-12.0); Platelet Count 321 K/mm3 (150-450); RBC Distribution Width CV 14.9 % (11.6-14.6); Red Blood Count 3.04 M/mm3 (4.6-6.2); White Blood Count 8.8 K/mm3 (4.4-11.0)
[2020-03-27 07:10] LABS: ALB/GLOB Ratio 0.8 RATIO (0.9-2.4); AST(SGOT) 25 U/L (15-37); Alanine Aminotransfer ALT/SGPT 35 U/L (16-61); Albumin, Serum 2.1 g/dL (3.2-5.0); Alkaline Phosphatase 101 U/L (45-117); Anion Gap 6 (5-15); BUN 48 mg/dL (7-18); BUN/Creat Ratio 60.8 RATIO (10-20); Calcium,Total 8.2 mg/dL (8.5-10.1); Chloride 104 mmol/L (98-107); Creatinine, Serum 0.79 mg/dL (0.70-1.30); EST Glomerular Filtration Rate 99 mL/min (>60); Est Glom Filt Rate - Afr Amer 120 mL/min (>60); Estimated Creatinine Clearance 44.53 ml/min; Globulin 2.8 g/dL (2.2-4.2); Glucose 141 mg/dL (74-106); Potassium 4.1 mmol/L (3.5-5.1); Protein, Total 4.9 g/dL (6.4-8.2); Sodium Level 139 mmol/L (136-145)
[2020-03-27] MEDS: DULoxetine Hcl 30 MG Capsule PO (08:51)
[2020-03-27] MEDS: Aspirin E.C. 81 MG Tablet PO (08:51)
[2020-03-27] MEDS: dexAMETHasone 4 MG Tablet 6 MG PO (08:51)
[2020-03-27] MEDS: Atorvastatin Calcium 20 MG Tablet PO (08:52)
[2020-03-27] MEDS: Orphenadrine 100 MG Tablet PO (08:52)
[2020-03-27] MEDS: Enoxaparin 30 MG/0.3 ML Syringe SC (08:52)
[2020-03-27] MEDS: Ferrous Gluconate 324 MG Tablet PO (08:52)
[2020-03-27] MEDS: Metoprolol(XL)Succ 25 MG Tablet 12.5 MG PO (08:53)
[2020-03-27] MEDS: Pantoprazole Sodium 20 MG Tablet PO (08:53)
[2020-03-27] MEDS: amLODIPine 10 MG Tablet PO (08:53)
[2020-03-27] MEDS: Lisinopril 20 MG Tablet PO (08:56)
--- NOTE | 2020-03-27 10:21 | TREXTCAR_ITS ---
- Diet 03/23/20 11:21 Diet: Regular - General Food consistency:: Regular Liquid Consistency:: Regular/Thin Diet Comments: please give built up silverware w/ meals - Wound(s) right heel Wound Type: Neuropathic/Diabetic Foot Ulcer Dressing Change: AntiMicrobial (Aquacel AG, etc) left moser Wound Type: Stasis Ulcer Dressing Change: AntiMicrobial (Aquacel AG, etc) - Suggestions for Active Care Change Position every (hours): 3 Hours to sit in a chair: 2 Times a day to sit in chair: 3 - Therapies Weight Bearing: Weight bearing as tolerated Physical Therapy: Eval and Treat Occupational Therapy: Eval and Treat - Problem/Diagnosis (1) Acute diarrheal illness Status: Acute (2) Pneumonia due to COVID-19 virus Status: Acute (3) Septic shock Status: Acute (4) Neuropathy Status: Chronic (5) PAD (peripheral artery disease) Status: Chronic (6) Rectal prolapse Status: Chronic (7) Atherosclerotic heart disease of [place] coronary artery without angina pectoris Status: Chronic (8) History of coronary artery stent placement Status: Chronic Comment: PCI-Stent to mid RCA 08/06/04; cutting balloon angioplasty with TAMERA to mid RCA 02/19; WFS-Vtoel-LOB-of RCA 06/18/09; PCI/TAMEAR to Ost[place] PDA and PCI-ISR RCA 09/03/13; PCI/TAMERA ISR of mid RCA 10/07/15; FFR mid L AD 0.86 10/08/15 (9) Essential (primary) hypertension Status: Chronic (10) Hyperlipidemia Status: Chronic - Allergies/Procedures Done in Hospital Allergies/Adverse Reactions: Allergies carisoprodol Allergy (Verified 03/23/20 05:31) Other itraconazole Allergy (Verified 03/23/20 05:31) Other - Type of Care/Length of Stay Estimated LOS: Convalescent Care Less Than 30 days Type of Care Needed: Skilled Rehab Potential: Fair Prognosis: Fair - Additional Orders/Day of Discharge Additional Orders: Continue COVID-19 isolation precautions for 12 days more to complete total of 20 days of isolation. H&P will serve as current which was dated: 03/23/20 Day of Discharge: 03/27/20 - Dietary and Speech Recommendations Dietitian Recommendations/Changes: Will continue Tim bid to help w/ wound healing. Will continue to provide ONS w/ meals for increased nutrition if consumed - Follow Up Care Primary Care Physician: Ryan Shukla MD [Primary Care Provider] - Please follow up with your Primary Care Physician in: 1-2 weeks.
[2020-03-27 12:00] LABS: Bedside Glucose 130 mg/dL (70-110)
--- NOTE | 2020-03-27 12:23 | DS.PCM_ITS ---
Discharge Date and Diagnosis - Problem List Patient Problems: Active and Suspected Problems (Last Updated 03/24/20 @ 10:[address] Audrey Tolliver MD) Septic shock (Acute) Pneumonia due to COVID-19 virus (Acute) Acute kidney injury (Acute) Acute diarrheal illness (Acute) Date of Admission: 03/23/20 Date of Discharge: 03/27/20 - Primary Discharge Diagnosis Acute Problems: Active Problems (Last Updated 03/24/20 @ 10:[address] Audrey Tolliver MD) #1 septic shock, secondary to acute COVID-19 pneumonia versus severe dehydration. #2 acute COVID-19 pneumonia. #3 enterococcal bacteremia, deemed to be due to contamination. #4 acute kidney injury. #5 abnormal cardiac enzymes. #6 hyperglycemia without diabetes, attributed to IV steroids. - Secondary Discharge Diagnosis Chronic Problems: Chronic Problems (Last Updated 03/24/20 @ 10:[address] 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) Debility (Chronic) Delayed wound healing (Chronic) PAD (peripheral artery disease) (Chronic) Debility (Chronic) Atherosclerotic heart disease of [place] coronary artery without angina pectoris (Chronic) History of coronary artery stent placement (Chronic 10/07/15) PCI-Stent to mid RCA 08/06/04; cutting balloon angioplasty with TAMERA to mid RCA 02/19; ZCF-[id number]-QUV-of RCA 06/18/09; PCI/TAMERA to Ostial PDA and PCI-ISR RCA 09/03/13; PCI/TAMERA ISR of mid RCA 10/07/15; FFR mid LAD 0.86 10/08/15 Peripheral arterial occlusive disease (Chronic) SFA PTCA/Stent 08/2012; Stent to distal RSFA to popliteal, Stent-Prox RSFA 10/23/13 Essential (primary) hypertension (Chronic) Hyperlipidemia (Chronic) Hospital Course and Treatment Imaging Results: Clinical Impression(s) from Imaging Studies Abdomen/Pelvis CT 03/23/20 05:30 IMPRESSION: 1. Prominent small bowel and colonic fluid, a nonspecific finding which can be seen with enteritis. 2. Mild basilar infiltrates, nonspecific but possibly infection. 3. Additional findings above. Individualized dose optimization techniques were used for this CT. at 0644 Reported and signed by: Angelica Quinteros MD Electronically Signed: Angelica Quinteros MD at 6:44 EST Tel , Service support , Chest X-Ray 03/23/20 11:43 IMPRESSION: Cardiomegaly with low volume inspiration and interval development of bilateral pulmonary opacities, right slightly greater than left. Findings are compatible with atypical pneumonia with COVID 19 a consideration. Electronically Signed: Neftali Duff MD at 15:41 EST , Service support , Consultations 03/23/20 11:45 Consult: Onc/Wound/hr representative Routine Comment: Reason for Consult:: Chronic bilateral leg ulcers Dr. Ball, infectious disease. Dr. Black, critical care. Operations: None Procedures: None Summary of Care Provided: Patient seen and examined on the day of discharge and appeared to be stable to be discharged to longterm facility. He is feeling much better, no shortness of breath. Diarrhea is improving. Denies any more abdominal pain. His vital signs are stable, remained on room air, afebrile. This is an 84 years old male patient presented to the emergency room because of weakness, fatigue, abdominal pain and diarrhea and he was found to have septic shock, tested positive for COVID-19 antigens and also found to have acute kidney injury and abnormal cardiac enzymes. #1 septic shock: Secondary to COVID-19 pneumonia versus severe dehydration secondary to diarrhea. Initially, patient was admitted to intensive care unit for septic shock. This was treated with IV fluids, IV antibiotics, IV Decadron and IV remdesivir for COVID-19. Lactic acid return back to normal with IV fluids. Stools for C. difficile and enteric pathogens were negative. Blood culture revealed Enterococcus faecium, repeat blood cultures showed no growth in 48 hours. Patient discharged to longterm facility in a stable condition, no antibiotic given upon discharge. #2 COVID-19 pneumonia: Both COVID-19 antigen and COVID-19 PCR came back positive. Treated with IV Decadron and remdesivir as well as subcu Lovenox twice daily. Patient did well. He did not require any oxygen. His pulse ox remained stable on room air. Patient was discharged on dexamethasone to complete total of 10 days of treatment, discharged on Eliquis 2.5 mg p.o. twice daily for 2 weeks. #3 Enterococcal bacteremia: Due to contamination. Patient received 1 dose of IV vancomycin. There was no clear source of bacteremia. Repeat blood culture showed no growth in 48 hours. Patient remained afebrile, leukocytosis resolved. Infectious disease recommended to not give any more antibiotics. #4 acute kidney injury: Probably due to acute dialysis, dehydration. Baseline kidney function is normal. Upon discharge, creatinine is 0.79, it is back to normal. #5 abnormal cardiac enzymes: EKG reviewed, no acute ischemic changes. Patient denied any chest pain. Could be due to demand ischemia. Continued on aspirin and statins as well as beta-blockers. #6 hyperglycemia: Secondary to steroids. Hemoglobin A1c was 5.6%. #7 acute diarrheal illness: Stool for C. difficile and enteric pathogens were negative. It is likely due to COVID-19. Improved Patient discharged to longterm facility in a stable condition, discharged on dexamethasone to complete total of 10 days of treatment, discharged on Eliquis 2.5 mg p.o. twice daily for 2 weeks, he did not require oxygen upon discharge, instructions was made to continue COVID-19 isolation precautions for 12 days more, recommended follow-up with PCP in 1 to 2 weeks. This note was generated with [employer] software. It may contain incorrect words, spelling, and punctuation that were not noted in checking the note before signing. Patient Problems: Active and Suspected Problems (Last Updated 03/24/20 @ 10:[address] Audrey Tolliver MD) Septic shock (Acute) Pneumonia due to COVID-19 virus (Acute) Acute kidney injury (Acute) Acute diarrheal illness (Acute) - Physical Exam Vitals/I&O's: Vital Signs Temp Pulse Resp BP Pulse Ox 98.6 F 77 18 142/79 H 96 03/27/20 09:02 03/27/20 09:02 03/27/20 09:02 03/27/20 09:02 03/27/20 09:02 Oxygen Flow Rate (L/min) 4 Oxygen Delivery Method Room Air Weight: 128 lb 8.472 oz Body Mass Index (BMI) 21.6 Intake and Output for Last 24 Hours 03/25/20 03/26/20 03/27/20 23:59 23:59 23:59 Intake Total 1430 / 1430 790 / 790 120 / 120 Balance 1430 / 1430 790 / 790 120 / 120 General: Alert, Oriented x3, Cooperative, No apparent distress HEENT: Atraumatic, PERRLA, EOMI, Normocephalic Oral: Moist Mucosa, No Gingival or Mucosal Lesions/ Ulcerations Neck: Supple, No JVD, Negative Carotid Bruits, Trachea Midline, Thyroid Normal Size and Texture Lungs: Clear to auscultation, No rhonchi, No wheeze, No rales, Diminished Cardiovascular: Regular rate, Regular Rhythm, Normal S1, Normal S2, PMI Normal Abdomen: Bowel Sounds Present, Soft, Non Tender Extremities: No clubbing, No cyanosis, No edema Skin: No rashes, No breakdown Lymphatic: No Cervical, Supraclavicular, or Inguinal Adenopathy Neurological: Cranial nerves II-XII grossly intact, Neuro grossly intact Psych/Mental Status: Normal Affect, Appropriate Microbiology Past 72 Hours 03/24/20 10:50 Blood Culture (Wb) - Anticubital Left Blood Culture - Preliminary No growth in 48 hours. 03/24/20 11:10 Blood Culture (Wb) - Anticubital Right Blood Culture - Preliminary No growth in 48 hours. 03/23/20 14:05 Urine Catheter - Catheter Urine Culture - Final Klebsiella oxytoca Escherichia coli Enterococcus faecium 03/23/20 14:05 Blood Culture (Wb) - Left Wrist Blood Culture - Preliminary No growth in 48 hours. 03/23/20 12:05 Blood Culture (Wb) - Left Hand Bacteria Detection (PCR) - Final Enterococcus faecium 03/23/20 12:05 Blood Culture (Wb) - Left Hand Blood Culture - Preliminary Enterococcus faecium Laboratory Results 03/26/20 11:18: POC Glucose 194 H 03/26/20 16:40: POC Glucose 142 H 03/26/20 20:04: POC Glucose 162 H 03/27/20 05:45: WBC 8.8, RBC 3.04 L, Hgb 9.5 L, Hct 29.6 L, MCV 97.4 H, MCH 31.3, MCHC 32.1, RDW Std Deviation 54.0 H, RDW Coeff of Ayesha 14.9 H, Plt Count 321, MPV 9.8 03/27/20 05:45: Sodium 139, Potassium 4.1, Chloride 104, Carbon Dioxide 29.0, Anion Gap 6, BUN 48 H, Creatinine 0.79, Estim Creat Clear Calc 44.53, Est GFR (MDRD) Af Amer 120, Est GFR (MDRD) Non-Af 99, BUN/Creatinine Ratio 60.8 H, Glucose 141 H, Calcium 8.2 L, Total Bilirubin 0.20, AST 25, ALT 35, Alkaline Ph osphatase 101, Total Protein 4.9 L, Albumin 2.1 L, Globulin 2.8, Albumin/Globulin Ratio 0.8 L 03/27/20 06:26: POC Glucose 130 H 03/27/20 08:48: POC Glucose 130 H Current Medications Acetaminophen (Acetaminophen 325 Mg Tablet) 650 mg PO Q6H PRN PRN PRN Reason: Pain Score 1-10/Temp > 100.7 F Last Admin: 03/26/20 05:01 Dose: 650 mg Documented by: Amlodipine Besylate (Amlodipine 10 Mg Tablet) 10 mg PO DAILY [facility] Last Admin: 03/27/20 08:53 Dose: 10 mg Documented by: Aspirin (Aspirin E.C. 81 Mg Tablet) 81 mg PO DAILY [facility] Last Admin: 03/27/20 08:51 Dose: 81 mg Documented by: Atorvastatin Calcium (Atorvastatin Calcium 20 Mg Tablet) 20 mg PO DAILY [facility] Last Admin: 03/27/20 08:52 Dose: 20 mg Documented by: Dexamethasone (Dexamethasone 4 Mg Tablet) 6 mg PO DAILY [facility] Stop: 04/01/20 10:01 Last Admin: 03/27/20 08:51 Dose: 6 mg Documented by: Duloxetine HCl (Duloxetine Hcl 30 Mg Capsule) 30 mg PO DAILY [facility] Last Admin: 03/27/20 08:51 Dose: 30 mg Documented by: Emollient Ointment (Emollient Combination No.72 500 Ml Lotion) 1 applic TOPICAL DAILY [facility]; Protocol Last Admin: 03/27/20 08:51 Dose: 1 applicatio Documented by: Enoxaparin Sodium (Enoxaparin 30 Mg/0.3 Ml Syringe) 30 mg SC BID [facility] Last Admin: 03/27/20 08:52 Dose: 30 mg Documented by: Ferrous Gluconate (Ferrous Gluconate 324 Mg Tablet) 324 mg PO DAILY [facility] Last Admin: 03/27/20 08:52 Dose: 324 mg Documented by: Sodium Chloride () 250 mls @ 15 mls/hr IV .[id number] PRN PRN Reason: Saline Flush Sodium Chloride () 250 mls @ 15 mls/hr IV .[id number] PRN PRN Reason: Additional IVPB Infusion Insulin Human Lispro (Insulin Lispro 100 Unit/Ml Insuln.Pen) 0 unit SC [facility]; Protocol Last Admin: 03/27/20 08:50 Dose: Not Given Documented by: Lisinopril (Lisinopril 20 Mg Tablet) 20 mg PO DAILY [facility] Last Admin: 03/27/20 08:56 Dose: 20 mg Documented by: Loperamide HCl (Loperamide 2 Mg Capsule) 2 mg PO Q4H PRN PRN PRN Reason: DIARRHEA Metoprolol Succinate (Metoprolol(Xl)Succ 25 Mg Tablet) 12.5 mg PO DAILY [facility] Last Admin: 03/27/20 08:53 Dose: 12.5 mg Documented by: Nutritional Formula (Nutritional Supplement (Tim) Packet) 1 packet PO BID [facility] Last Admin: 03/27/20 08:52 Dose: 1 packet Documented by: Ondansetron HCl (Ondansetron 4 Mg/2 Ml Vial) 4 mg IV Q8H PRN PRN PRN Reason: NAUSEA/VOMITING Orphenadrine Citrate (Orphenadrine 100 Mg Tablet) 100 mg PO DAILY [facility] Last Admin: 03/27/20 08:52 Dose: 100 mg Documented by: Pantoprazole Sodium (Pantoprazole Sodium 20 Mg Tablet) 20 mg PO DAILY [facility] Last Admin: 03/27/20 08:53 Dose: 20 mg Documented by: Sodium Chloride (0.9% Saline Lock 10 Ml Syringe) 10 - 40 ml IV UD PRN PRN Reason: SALINE FLUSH Last Admin: 03/26/20 10:55 Dose: 10 ml Documented by: Home Medications: Medications to take at Discharge Omeprazole [Prilosec] 20 mg PO DAILY 10/07/15 Multivit-Min/FA/Lycopen/Lutein [Centrum Silver Men Tablet] 1 tab PO DAILY 02/14/18 Vitamin E 400 unit PO DAILY 10/29/18 duloxetine 30 mg capsule,delayed release 30 mg PO DAILY 03/06/19 atorvastatin 20 mg tablet 20 mg PO QHS #90 tab 06/10/19 lisinopril 20 mg tablet 20 mg PO DAILY #90 tab 09/30/19 acetaminophen 500 mg tablet 500 mg PO TID tab 01/30/20 Aspirin [Aspirin EC] 81 mg PO DAILY 02/25/20 Metoprolol(XL)Succ [Toprol Xl (Beta Koko)] 12.5 mg PO DAILY 02/25/20 Potassium Chloride 10 meq PO DAILY 02/25/20 nitroglycerin 0.4 mg sublingual tablet 0.4 mg PO Q5-15M PRN #25 tab 02/25/20 Amlodipine [Norvasc] 10 mg PO DAILY 03/19/20 Orphenadrine [Norflex] 100 mg PO DAILY 03/19/20 Ferrous Gluconate 324 mg PO DAILY 03/23/20 Apixaban [Eliquis] 2.5 mg PO BID #28 tab 03/27/20 Dexamethasone 6 mg PO DAILY #6 tab 03/27/20 Following Prescriptions Were Given to Patient: Dexamethasone 6 mg PO DAILY #6 tab Prescription Printed Apixaban [Eliquis] 2.5 mg PO BID #28 tab Prescription Printed Primary Care Physician: Ryan Shukla MD [Primary Care Provider] - Please follow up with your Primary Care Physician in: 1-2 weeks. Disposition: Group Home facility Minutes spent on discharge:: 33 Patient Condition:: Stable Medical Necessity - Tobacco Use Smoking Status: Never smoker Meaningful Use Info Meaningful Use Diagnoses (Choose all that apply): None applicable Inpatient E&M: 35039 Disch Hosp
[2020-03-27 12:30] LABS: Bedside Glucose 144 mg/dL (70-110)
--- NOTE | 2020-03-27 15:09 | CASEMGMT ---
Addendum entered by Sheron Hassan 03/27/20 15:19: Social Work SW completed 7000 Con[facility]escent form in [employer] system and faxed along with orders to [facility]. Transportation arranged for 3:00 supervisor picking crew by stretcher with [facility]. Return call to pt and updated on discharge time. is agreeable and will bring some clothes in to pt to take with him to SNF. Nursing updated on d/c time. ABDON Recio Original Note: Social Work SW spoke with pt Kassandra and Son Wesley in three way call. Kassandra and Wesley reviewed SNF options for pt and would like pt to go to [facility]. Referral made to [facility] and they are able to accept pt today. made aware and pt is ready for discharge on this date. Phone call to pt room and updated pt on discussion with and discharge plan. Pt is agreeable to go to [facility]. ABDON Recio
== END 2020-03-27 16:00 | disposition skilled nursing facility (03) | DRG 871 ==
LOC: ED 06:00 → ICU 08:38 → MS2 03-25 22:22
PROVIDERS: Internal Medicine Infectious Disease; Admitting Provider Hospitalist; Emergency Provider Emergency Medicine; PCP Family Medicine; Visit Provider Hospitalist
DX: A41.81 Sepsis due to Enterococcus (principal); U07.1 COVID-19; R65.21 Severe sepsis with septic shock; J12.89 Other viral pneumonia; N17.9 Acute kidney failure, unspecified; L97.922 Non-pressure chronic ulcer of unspecified part of left lower leg with fat layer exposed; L97.912 Non-pressure chronic ulcer of unspecified part of right lower leg with fat layer exposed; R73.9 Hyperglycemia, unspecified; L97.512 Non-pressure chronic ulcer of other part of right foot with fat layer exposed; T38.0X5A Adverse effect of glucocorticoids and synthetic analogues, initial encounter; R74.8 Abnormal levels of other serum enzymes; E86.0 Dehydration; E78.5 Hyperlipidemia, unspecified; I25.10 Atherosclerotic heart disease of native coronary artery without angina pectoris; I11.0 Hypertensive heart disease with heart failure; I50.9 Heart failure, unspecified; K62.3 Rectal prolapse; G62.9 Polyneuropathy, unspecified; I25.82 Chronic total occlusion of coronary artery; I45.10 Unspecified right bundle-branch block; R09.02 Hypoxemia; Z95.5 Presence of coronary angioplasty implant and graft; Z79.82 Long term (current) use of aspirin; Z82.3 Family history of stroke; Z82.49 Family history of ischemic heart disease and other diseases of the circulatory system; Z85.46 Personal history of malignant neoplasm of prostate; Z90.79 Acquired absence of other genital organ(s); I73.9 Peripheral vascular disease, unspecified
CPT/HCPCS: 36415; 71045; 74177; 80053; 81001; 82274; 82550; 82962; 83036; 83605; 83615; 84484; 85025; 85027; 85379; 85610; 85730; 86850; 86900; 86901; 86920; 87040; 87077; 87086; 87088; 87149; 87186; 87426; 87493; 87506; 87635; 93005; 97110; 97116; 97162; 97166; 97530; 97535; 99285; J7030; J7040; J7050; Q9967; A4216; J3490; U0002

== ENCOUNTER 2020-05-07 14:14 | Inpatient (IN) | payer MEDICARE, OTHER, SELFPAY ==
[2020-03-23 11:28] VITALS: BMI 21.6
[2020-05-07] VITALS (9 sets, daily range): BP systolic 73–134; BP diastolic 43–95; PULSE 77–142; RESP 17–20; TEMP 36.1–37.6; O2SAT 97–99; BMI 18.4; BMI 18.5; BMI 18.1
--- NOTE | 2020-05-07 14:17 | EKG12_ITS ---
Test Reason : Blood Pressure : / mmHG Vent. Rate : 113 BPM Atrial Rate : 098 BPM P-R Int : 000 ms QRS Dur : 134 ms QT Int : 358 ms P-R-T Axes : 000 075 031 degrees QTc Int : 491 ms Atrial fibrillation with premature ventricular or aberrantly conducted complexes Right bundle branch block Abnormal ECG Confirmed by AUNDREA MONTES, MANUEL ([id number]), book or script editor REHAN GASPAR ([id number]) on 05/18/2020 12:56:31 PM Referred By: Confirmed By:JAIR GUILLAUME MD
--- NOTE | 2020-05-07 14:17 | RAD_ITS ---
STUDY: X-RAY CHEST REASON FOR EXAM: Male, 84 years old. DROPPED OFF BY WHEELCHAIR VAN FOR NEURO APPT, UNRESPONSIVE TO STAFF, BOILER HELPER CALLED. UPON ARRIVAL TO ER PT BECOMES MORE RESPONSIVE TECHNIQUE: Single AP portable view of the chest. COMPARISON: Comparison is made with prior examination of 03/23/2020. FINDINGS: EKG electrodes are seen. Hyperinflation. The previously seen bilateral infiltrates have cleared. There is no demonstrated pleural abnormality. Normal size heart. Normal mediastinum and terry. Normal visualized pulmonary arteries. There is atherosclerotic calcification of the aortic arch with tortuosity. There are diffuse degenerative changes of the visualized thoracic spine. Metallic suture anchor is seen overlying the greater tuberosity of the proximal humerus. There is no demonstrated abnormality of the visualized soft tissue structures of the upper abdomen. RAD/Chest 1 View (Portable) IMPRESSION: No acute abnormality is seen. Electronically Signed: Rito Lugo MD at 15:13 EST , Service support ,
[2020-05-07 14:29] LABS: Absolute Lymphocyte Count 1.53 X10^3/uL (0.83-4.51); Absolute Neutrophil Count 3.4 X10^3/uL (2.0-7.7); Basophil# 0.02 X10^3/uL; Basophil% 0.4 % (0-1); Eosinophil# 0.03 X10^3/uL; Eosinophils% 0.5 % (0-5); Hematocrit 34.2 % (40-54); Hemoglobin 10.8 g/dL (13.0-16.5); Lymphocyte # 1.53 X10^3/ul (4.0); Lymphocyte % 27.8 % (19-41); Mean Corp Hgb Conc 31.6 g/dL (32-36); Mean Corpuscular Hgb 30.4 pg (27.0-32.0); Mean Corpuscular Volume 96.3 fL (80-94); Mean Platelet Vol. 8.9 fl (6.2-12.0); Monocyte# 0.45 X10^3/uL; Monocyte% 8.2 % (0-10); NRBC Flagged by Analyzer 0 % (0-5); Neutrophil # 3.44 X10^3/uL (2.7-7.7); Neutrophil % 62.6 % (47-70); Platelet Count 343 K/mm3 (150-450); RBC Distribution Width CV 15.9 % (11.6-14.6); RBC Distribution Width SD 56.6 fl (35.1-43.9); Red Blood Count 3.55 M/mm3 (4.6-6.2); White Blood Count 5.5 K/mm3 (4.4-11.0)
--- NOTE | 2020-05-07 14:29 | EKG12_ITS ---
Test Reason : RAPID RESPONSE Blood Pressure : / mmHG Vent. Rate : 144 BPM Atrial Rate : 133 BPM P-R Int : 000 ms QRS Dur : 132 ms QT Int : 322 ms P-R-T Axes : 000 075 -19 degrees QTc Int : 498 ms Atrial fibrillation Right bundle branch block T wave abnormality, consider inferior ischemia Abnormal ECG Confirmed by AUNDREA MONTES, MANUEL ([id number]), editorial assistant REHAN GASPAR ([id number]) on 05/18/2020 11:24:45 AM Referred By: MAGUI Confirmed By:JAIR GUILLAUME MD
[2020-05-07] MEDS: 0.9% Normal Saline 1,000 ML 999 ML IV (14:32)
[2020-05-07 14:45] LABS: Anion Gap 9 (5-15); BUN 25 mg/dL (7-18); BUN/Creat Ratio 27.9 RATIO (10-20); Calcium,Total 9.2 mg/dL (8.5-10.1); Chloride 105 mmol/L (98-107); EST Glomerular Filtration Rate 86 mL/min (>60); Est Glom Filt Rate - Afr Amer 104 mL/min (>60); Estimated Creatinine Clearance 49.57 ml/min; Glucose 152 mg/dL (74-106); Potassium 3.1 mmol/L (3.5-5.1); Sodium Level 139 mmol/L (136-145)
[2020-05-07 14:48] LABS: Mucous, Urine 0 SEEN /hpf (<or=2+); Red Blood Cells-Urine 0 SEEN /hpf (0-5)
[2020-05-07 14:49] LABS: Color, Urine Yellow (Yellow); Glucose, Dipstick Normal (Normal); Ketone-Dipstick Negative (Negative); Leukocyte Esterase-Dipstick 500 /ul (Negative); Nitrite-Dipstick Positive (Negative); Occult Blood-Urine Negative /ul (Negative); Protein-Dipstick 30 mg/dl (Negative); Urine Bilirubin Dipstick Negative (Negative); Urine Clarity Sl. Cloudy (Clear); Urine Urobilinogen Normal (Normal)
[2020-05-07 14:55] LABS: Bacteria 1+ /hpf (None Seen); Squamous Epithelial Cells - UA 0-5 SEEN /hpf (0-5); White Blood Cells 25-50 SEEN /hpf (0-5)
[2020-05-07 14:55] LABS: Partial Thromboplast Time 23.2 Seconds (24.1-36.2); Prothrombin Time (Protime)PT. 12.8 SECONDS (11.7-14.9)
[2020-05-07] MEDS: dilTIAZem 25 MG/5 ML Vial IV BOLUS (15:04)
--- NOTE | 2020-05-07 15:12 | ED.RN ---
PT WAS INCONTINENT OF A LARGE AMOUNT OF HARD STOOL. AFTER BM, PT IS VERY ALERT. HE REPORTS HE FREQUENTLY HAS PROBLEMS WITH CONSTIPATION.
[2020-05-07 15:25] LABS: Lactic Acid 4.4 mmol/L (0.4-1.9)
--- NOTE | 2020-05-07 16:39 | ED.VISSUMM ---
- ER Visit Summary Date of Service: 05/07/20 Chief Complaint: Gentleman brought down less responsive from a rapid response team. History of Present Illness: The patient is a 84 M history of A. fib, diabetes, DNR Comfort Care arrest, prostate CA. Recently Covid positive. Patient was brought in by squad to have an evaluation done in the hospital. He was unresponsive a rapid response was called and was brought to the ER. Reportedly he was hypotensive. Physical Examination: Elderly male awake. Initial blood pressure 73/43 and heart rate of 142. Afebrile. H EENT exam unremarkable. Neck nontender no lymphadenopathy. Lungs clear to auscultation bilaterally. Heart tachycardic rate about 140 peers to be A. fib RVR in the monitor. He is right bundle branch block. Abdomen soft nontender normal bowel sounds no peritoneal signs. Extremities moves all 4. Calves nontender. Neurologically he is awake he does answer a few questions he is limited informant. Test Results: Chest x-ray portable 1 view interpreted by myself and the radiologist shows no acute abnormality. Normal cardiac silhouette mediastinum. No infiltrate. Initial EKG A. fib RVR rate of 144 with right bundle branch block. CBC white count of 5 hemoglobin 10 his baseline anemia. Potassium of 3.1 normal creatinine and gap. PT/INR normal UA 25-50 white cells 1+ bacteria culture was sent but this was not treated at this time. Troponin normal lactic acid elevated 4.4. I think that is due to his hypotension due to his A. fib RVR. Emergency Department Course and Treatment: Decreased responsiveness with hypotension. Patient treated IV fluids. Once his pressure became above 100 he was given Cardizem to help control his heart rate his heart rate initially was in the 90s after the Cardizem he was much more awake and responsive. His pressure again improved after the fluids and medication. On repeat exam his heart rate was 115 he was still in A. fib he was started on a Cardizem drip. Treatment Plan: Spoke to the hospitalist will be a PCU admission. Disposition: Admission Impression: Acute A. fib RVR with a history of A. fib Acute hypotension Elevated lactic acid History of DNR CCA History of diabetes History of prostate CA This note was generated with [employer] dictation software. It may contain incorrect words, spelling, and punctuation that were not noted in review of the chart prior to signing ED Disposition - Plan for ED Patient: Referrals: Noe Weeks MD [Primary Care Provider] -
--- NOTE | 2020-05-07 17:15 | PCM.HP.STD ---
<Laith Pettit - Last Filed: 05/07/20 17:15> Problem List (1) Atrial fibrillation with RVR Status: Acute (2) Right bundle branch block (RBBB) Status: Chronic (3) PAD (peripheral artery disease) Status: Chronic (4) Essential (primary) hypertension Status: Chronic (5) Hyperlipidemia Status: Chronic History of Present Illness Date of Admission: 05/07/20 Chief Complaint: syncope The patient is a 84 year old M with pmhx of CAD with prior stents pt of Dr. Loera, PAD, HTN, HLD, who presents to the ER after he had a syncopal episode in the hospital. Pt has been in an SNF and was sent to the hospital for an appointment he cannot remember which doctor he came to see. He became unresponsive in the entrance way and was brought to the ER. He had hypotension and afib RVR. He was given cardizem with improvement in rate and BP. He remembers that he felt dizzy before losing consciousness. He currently c/o severe lethargy. He has mild SOB. He has no CP, pressure, tightness, or Edema. He has no hx of afib. [] Past Medical History Past Medical History (Chronic Problems): Chronic Problems (Last Updated 03/24/20 @ 10:[address] 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) Debility (Chronic) Delayed wound healing (Chronic) PAD (peripheral artery disease) (Chronic) Debility (Chronic) Atherosclerotic heart disease of [place] coronary artery without angina pectoris (Chronic) History of coronary artery stent placement (Chronic 10/07/15) PCI-Stent to mid RCA 08/06/04; cutting balloon angioplasty with TAMERA to mid RCA 02/19; KUG-Sttkl-TWZ-of RCA 06/18/09; PCI/TAMERA to Ostial PDA and PCI-ISR RCA 09/03/13; PCI/TAMERA ISR of mid RCA 10/07/15; FFR mid LAD 0.86 10/08/15 Peripheral arterial occlusive disease (Chronic) SFA PTCA/Stent 08/2012; Stent to distal RSFA to popliteal, Stent-Prox RSFA 10/23/13 Essential (primary) hypertension (Chronic) Hyperlipidemia (Chronic) Medical History: Medical History (Last Updated 03/24/20 @ 10:[address] Audrey Tolliver MD) Debility (Chronic) R53.81 Atherosclerotic heart disease of [place] coronary artery without angina pectoris (Chronic) I25.10 Peripheral arterial occlusive disease (Chronic) I77.9 SFA PTCA/Stent 08/2012; Stent to distal RSFA to popliteal, Stent-Prox RSFA 10/23/13 Essential (primary) hypertension (Chronic) I10 Hyperlipidemia (Chronic) E78.5 Chronic pain of right heel M79.671, G89.29 DDD (degenerative disc disease) GERD (gastroesophageal reflux disease) K21.9 Lumbar stenosis M48.061 Obstructive sleep apnea G47.33 Peripheral neuropathy G62.9 Peripheral neuropathy G62.9 Prostate cancer C61 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 Rectal prolapse (Inactive) K62.3 Ulcer of right heel L97.419 Ulcer of right lower extremity with fat layer exposed L97.912 Urinary incontinence (Inactive) R32 Allergies carisoprodol Allergy (Verified 05/07/20 14:25) Other itraconazole Allergy (Verified 05/07/20 14:25) Other Home Medications: Ambulatory Orders Medication Instructions Recorded Omeprazole [Prilosec] 20 mg PO DAILY 10/07/15 Multivit-Min/FA/Lycopen/Lutein 1 tab PO DAILY 02/14/18 [Centrum Silver Men Tablet] Vitamin E 400 unit PO DAILY 10/29/18 duloxetine 30 mg capsule,delayed 30 mg PO DAILY 03/06/19 release atorvastatin 20 mg tablet 20 mg PO QHS #90 tab 06/10/19 lisinopril 20 mg tablet 20 mg PO DAILY #90 tab 09/30/19 acetaminophen 500 mg tablet 500 mg PO TID tab 01/30/20 Metoprolol(XL)Succ [Toprol Xl 12.5 mg PO DAILY 02/25/20 (Beta Koko)] Potassium Chloride 10 meq PO DAILY 02/25/20 nitroglycerin 0.4 mg sublingual 0.4 mg PO Q5-15M PRN #25 tab 02/25/20 tablet Amlodipine [Norvasc] 10 mg PO DAILY 03/19/20 Orphenadrine [Norflex] 100 mg PO DAILY 03/19/20 Ferrous Gluconate 324 mg PO DAILY 03/23/20 Nut Tx, Lact-Reduced, Iron [Boost 120 ml PO TID 05/07/20 [facility]] Surgical History: Surgical History (Last Updated 03/23/20 @ 11:[address] Audrey Tolliver MD) History of coronary artery stent placement (Chronic) Onset Date: 10/07/15 Z95.5 PCI-Stent to mid RCA 08/06/04; cutting balloon angioplasty with TAMERA to mid RCA 02/19; YXZ-Zttoa-JNE-of RCA 06/18/09; PCI/TAMERA to Ostial PDA and PCI-ISR RCA 09/03/13; PCI/TAMERA ISR of mid RCA 10/07/15; FFR mid LAD 0.86 10/08/15 History of left heart catheterization Onset Date: 07/02/19 Z98.890 Coronary artery disease with evidence of previously stented right coronary artery which is totally occluded with [id number] collaterals and fairly preserved left ventricular systolic function. RECOMMENDATIONS: Medical therapy History of angioplasty of peripheral vessel Onset Date: 10/23/13 Z98.62 Right Femoral Artery PTCA/Stent 08/2012; angioplasty and stenting of the Rt SFA @ [facility] per Dr. Zapata; Stent to distal RSFA to popliteal, Stent Rt. Proximal SFA 10/23/13 History of back surgery Z98.890 History of hernia repair Z98.890, Z87.19 History of prostatectomy Z90.79 with radiation History of shoulder surgery Z98.890 History of tonsillectomy Z90.89 Surgical History: rotator cuff repair, tonsillectomy, - - The patient is undergone lumbar surgery in the past. He has a history of bilateral shoulder surgery. He has had coronary stents placed, and to proceed stenting was performed in the right lower extremity. Psychiatric History: No pertinent psych hx Lives: Alf Smoking Status: Never smoker Tobacco Use: Non-smoker Alcohol: None Drugs: None - *Family History Maternal Family History: Family History (Last Reviewed 05/07/20 @ 17:25 by Laith SAGE, ALONA) Mother CVA (cerebral vascular accident) Sister Hypertension Review of Systems Constitutional: Reports: Fatigue. Denies: Chills, Fever, Weight Change HEENT: Denies: Head Aches, Sinus Congestion, Sinus Drainage Cardiovascular: Reports: Light Headedness, Syncope. Denies: Chest Pain, Chest Pressure, Edema, Heaviness, Palpitations Respiratory: Reports: Shortness of Breath. Denies: Cough, Shortness of breath at rest, Sputum production, Wheezing Gastrointestinal: Denies: Abdominal Pain, Diarrhea, Nausea, Vomiting Genitourinary: Denies: Dysuria, Hesitancy, Retention Musculoskeletal: Denies: Joint Pain, Joint Tenderness, Muscle pain Skin: Denies: Lesions, Rash, Wounds Neurological: Denies: Numbness, Tingling, Focal weakness Psychiatric: Denies: Anxiety, Depression, Homicidal Ideations, Suicidal Ideations Hematologic/ Lymphatic: Denies: Easy Bruising, Easy Bleeding VTE Information - Inpt Only VTE Present on Admission: No VTE Mechan Device Prophylaxis: None VTE Pharm Prophylaxis ordered?: Yes Patient Problems: Active and Suspected Problems (Last Updated 03/24/20 @ 10:[address] Audrey Tolliver MD) Atrial fibrillation with RVR (Acute) - Physical Exam Vitals/I&O's: Vital Signs Temp Pulse Resp BP Pulse Ox 97.8 F 89 17 122/66 H 97 05/07/20 16:42 05/07/20 16:42 05/07/20 16:42 05/07/20 16:42 05/07/20 16:42 Oxygen Flow Rate (L/min) 1 Oxygen Delivery Method Nasal Cannula Weight: 128 lb 11.999 oz Body Mass Index (BMI) 18.4 Intake and Output for Last 24 Hours 05/05/20 05/06/20 05/07/20 23:59 23:59 23:59 Intake Total 1000 / 1000 Balance 1000 / 1000 General: Alert, Oriented x3, Cooperative HEENT: Atraumatic, PERRLA, EOMI, Normocephalic Neck: Supple, No JVD, Negative Carotid Bruits Lungs: Clear to auscultation, Normal air movement Cardiovascular: No murmurs, Irregular Rate, Tachycardic Abdomen: Bowel Sounds Present, Soft, Non Tender Extremities: No edema, Capillary Refill Less than 3 Seconds Skin: No rashes, No breakdown, - - significant dry skin BLE. Musculoskeletal: No Tenderness to Palpation of Joints or Extremities Neurological: Cranial nerves II-XII grossly intact Psych/Mental Status: Normal Affect, Appropriate, Alert and oriented to time, place, person, mood and affect Laboratory Results 05/07/20 14:21: WBC 5.5, RBC 3.55 L, Hgb 10.8 L, Hct 34.2 L, MCV 96.3 H, MCH 30.4, MCHC 31.6 L, RDW Std Deviation 56.6 H, RDW Coeff of Ayesha 15.9 H, Plt Count 343, MPV 8.9, Immature Gran % (Auto) 0.500, Neut % (Auto) 62.6, Lymph % (Auto) 27.8, [place] % (Auto) 8.2, Eos % (Auto) 0.5, Baso % (Auto) 0.4, Absolute Neuts (auto) 3.4, Absolute Lymphs (auto) 1.53, Nucleated RBC % 0 05/07/20 14:21: Sodium 139, Potassium 3.1 L, Chloride 105, Carbon Dioxide 25.0, Anion Gap 9, BUN 25 H, Creatinine 0.90, Estim Creat Clear Calc 49.57, Est GFR (MDRD) Af Amer 104, Est GFR (MDRD) Non-Af 86, BUN/Creatinine Ratio 27.9 H, Glucose 152 H, Calcium 9.2, Troponin I 0.025 05/07/20 14:35: WBC Cancelled, Corrected WBC Cancelled, RBC Cancelled, Hgb Cancelled, Hct Cancelled, MCV Cancelled, MCH Cancelled, MCHC Cancelled, RDW Std Deviation Cancelled, RDW Coeff of Ayesha Cancelled, Plt Count Cancelled, MPV Cancelled, Immature Gran % (Auto) Cancelled, Neut % (Auto) Cancelled, Lymph % (Auto) Cancelled, [place] % (Auto) Cancelled, Eos % (Auto) Cancelled, Baso % (Auto) Cancelled, Absolute Neuts (auto) Cancelled, Absolute Lymphs (auto) Cancelled, Total Counted Cancelled, Neutrophils % (Manual) Cancelled, Band Neutrophils % Cancelled, Lymphocytes % (Manual) Cancelled, Monocytes % (Manual) Cancelled, Eosinophils % (Manual) Cancelled, Basophils % (Manual) Cancelled, Metamyelocytes % Cancelled, Myelocytes % Cancelled, Promyelocytes % Cancelled, Blast Cells % Cancelled, Plasma Cell % (Manual) Cancelled, Other Cells % Cancelled, Nucleated RBC % Cancelled, Nucleated RBCs/100 WBC Cancelled, Differential Comment Cancelled, Diff Path Review Cancelled, Hypersegmented Neuts Cancelled, Atypical Lymphocytes Cancelled, Reactive Lymphocytes Cancelled, Smudge Cells Cancelled, Toxic Granulation Cancelled, Toxic Vacuolation Cancelled, Dohle Bodies Cancelled, Danya Rods Cancelled, Platelet Estimate Cancelled, Plt Morphology Comment Cancelled, RBC Morphology Cancelled, Polychromasia Cancelled, Hypochromasia Cancelled, Poikilocytosis Cancelled, Basophilic Stippling Cancelled, Anisocytosis Cancelled, Microcytosis Cancelled, Macrocytosis Cancelled, Spherocytes Cancelled, Sickle Cells Cancelled, Target Cells Cancelled, Tear Drop Cells Cancelled, Ovalocytes Cancelled, Stomatocytes Cancelled, Garcia-Brook Bodies Cancelled, [place] Cells Cancelled, Bite Cells Cancelled, Crenated Cell Cancelled, Acanthocytes (Spur) Cancelled, Rouleaux Cancelled, Schistocytes Cancelled 05/07/20 14:35: PT 12.8, INR 1.0, APTT 23.2 L 05/07/20 14:35: Sodium Cancelled, Potassium Cancelled, Chloride Cancelled, Carbon Dioxide Cancelled, Anion Gap Cancelled, BUN Cancelled, Creatinine Cancelled, Estim Creat Clear Calc Cancelled, Est GFR (MDRD) Af Amer Cancelled, Est GFR (MDRD) Non-Af Cancelled, BUN/Creatinine Ratio Cancelled, Glucose Cancelled, Calcium Cancelled, Total Bilirubin Cancelled, AST Cancelled, ALT Cancelled, Alkaline Phosphatase Cancelled, Total Protein Cancelled, Albumin Cancelled, Globulin Cancelled, Albumin/Globulin Ratio Cancelled 05/07/20 14:35: Lactic Acid 4.4 H* 05/07/20 14:44: Urine Color Yellow, Urine Clarity Sl. Cloudy, Urine pH 7.0, Ur Specific [place] 1.010, Urine Protein 30 H, Urine Glucose (UA) Normal, Urine Ketones Negative, Urine Occult Blood Negative, Urine Nitrite Positive H, Urine Bilirubin Negative, Urine Urobilinogen Normal, Ur Leukocyte Esterase 500 H, Urine RBC 0 SEEN, Urine WBC 25-50 SEEN, Ur Squamous Epith Cells 0-5 SEEN, Urine Bacteria 1+, Urine Mucus 0 SEEN Current Medications Diltiazem HCl 125 mg/ Dextrose 125 mls @ 5 mls/hr IV .Q25H LYNDSAY; Protocol Assessment/Plan All Active Problems (Last Updated 03/24/20 @ 10:[address] Audrey Tolliver MD) Septic shock (Acute) Pneumonia due to COVID-19 virus (Acute) Acute kidney injury (Acute) Acute diarrheal illness (Acute) Atrial fibrillation with RVR (Acute) 1. Syncope 2/2 afib rvr - new onset - improved with cardizem. Increase beta koko. Start lovenox. Consult cardiology - pt of Dr. Loera. Last echo 06/2019. Consider repeat. Repeat K+. Check Mag. Check TSH. LA 4.4 hydrate and recheck. Cycle enzymes. 2. Acute cystitis - possibly contributing to above. UA +. Pt significantly confused but baseline unclear. Rocephin. check culture. No fever/leukocytosis. 3. Hx CAD - prior stents. pt of Dr. Loera. Pt not on aspirin. Continue atorvastatin, metoprolol, lisinopril. 4. Hx PAD with prior stent 5. HTN - low BP on presentation but improved with improvement in RVR 6. HLD - statin DVT ppx: lovenox DC planning: from [facility] This patient was seen by Laith Pettit PA-C under the supervision of Dr. Hightower <Yeni Hightower - Last Filed: 05/07/20 19:32> History of Present Illness The patient is a 84 year old M [] Past Medical History Medical History: Medical History (Last Updated 03/24/20 @ 10:[address] Audrey Tolliver MD) Debility (Chronic) R53.81 Atherosclerotic heart disease of [place] coronary artery without angina pectoris (Chronic) I25.10 Peripheral arterial occlusive disease (Chronic) I77.9 SFA PTCA/Stent 08/2012; Stent to distal RSFA to popliteal, Stent-Prox RSFA 10/23/13 Essential (primary) hypertension (Chronic) I10 Hyperlipidemia (Chronic) E78.5 Chronic pain of right heel M79.671, G89.29 DDD (degenerative disc disease) GERD (gastroesophageal reflux disease) K21.9 Lumbar stenosis M48.061 Obstructive sleep apnea G47.33 Peripheral neuropathy G62.9 Peripheral neuropathy G62.9 Prostate cancer C61 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 Rectal prolapse (Inactive) K62.3 Ulcer of right heel L97.419 Ulcer of right lower extremity with fat layer exposed L97.912 Urinary incontinence (Inactive) R32 Allergies carisoprodol Allergy (Verified 05/07/20 14:25) Other itraconazole Allergy (Verified 05/07/20 14:25) Other Surgical History: Surgical History (Last Updated 03/23/20 @ 11:[address] Audrey Tolliver MD) History of coronary artery stent placement (Chronic) Onset Date: 10/07/15 Z95.5 PCI-Stent to mid RCA 08/06/04; cutting balloon angioplasty with TAMERA to mid RCA 02/19; CLL-Barmx-BTL-of RCA 06/18/09; PCI/TAMERA to Ostial PDA and PCI-ISR RCA 09/03/13; PCI/TAMERA ISR of mid RCA 10/07/15; FFR mid LAD 0.86 10/08/15 History of left heart catheterization Onset Date: 07/02/19 Z98.890 Coronary artery disease with evidence of previously stented right coronary artery which is totally occluded with [id number] collaterals and fairly preserved left ventricular systolic function. RECOMMENDATIONS: Medical therapy History of angioplasty of peripheral vessel Onset Date: 10/23/13 Z98.62 Right Femoral Artery PTCA/Stent 08/2012; angioplasty and stenting of the Rt SFA @ [facility] per Dr. Zapata; Stent to distal RSFA to popliteal, Stent Rt. Proximal SFA 10/23/13 History of back surgery Z98.890 History of hernia repair Z98.890, Z87.19 History of prostatectomy Z90.79 with radiation History of shoulder surgery Z98.890 History of tonsillectomy Z90.89 - *Family History Maternal Family History: Family History (Last Reviewed 05/07/20 @ 17:25 by ALONA Rendon) Mother CVA (cerebral vascular accident) Sister Hypertension - Physical Exam Vitals/I&O's: Vital Signs Temp Pulse Resp BP Pulse Ox 99.6 F H 77 17 125/70 H 99 05/07/20 17:55 05/07/20 17:55 05/07/20 17:55 05/07/20 17:55 05/07/20 17:55 Oxygen Flow Rate (L/min) 4 Oxygen Delivery Method Nasal Cannula Weight: 57.4 kg Body Mass Index (BMI) 18.1 Intake and Output for Last 24 Hours 05/05/20 05/06/20 05/07/20 23:59 23:59 23:59 Intake Total 1000 / 1000 Balance 1000 / 1000 Laboratory Results 05/07/20 14:20: Magnesium 2.2 05/07/20 14:21: WBC 5.5, RBC 3.55 L, Hgb 10.8 L, Hct 34.2 L, MCV 96.3 H, MCH 30.4, MCHC 31.6 L, RDW Std Deviation 56.6 H, RDW Coeff of Ayesha 15.9 H, Plt Count 343, MPV 8.9, Immature Gran % (Auto) 0.500, Neut % (Auto) 62.6, Lymph % (Auto) 27.8, [place] % (Auto) 8.2, Eos % (Auto) 0.5, Baso % (Auto) 0.4, Absolute Neuts (auto) 3.4, Absolute Lymphs (auto) 1.53, Nucleated RBC % 0 05/07/20 14:21: Sodium 139, Potassium 3.1 L, Chloride 105, Carbon Dioxide 25.0, Anion Gap 9, BUN 25 H, Creatinine 0.90, Estim Creat Clear Calc 49.57, Est GFR (MDRD) Af Amer 104, Est GFR (MDRD) Non-Af 86, BUN/Creatinine Ratio 27.9 H, Glucose 152 H, Calcium 9.2, Troponin I 0.025 05/07/20 14:35: WBC Cancelled, Corrected WBC Cancelled, RBC Cancelled, Hgb Cancelled, Hct Cancelled, MCV Cancelled, MCH Cancelled, MCHC Cancelled, RDW Std Deviation Cancelled, RDW Coeff of Ayesha Cancelled, Plt Count Cancelled, MPV Cancelled, Immature Gran % (Auto) Cancelled, Neut % (Auto) Cancelled, Lymph % (Auto) Cancelled, [place] % (Auto) Cancelled, Eos % (Auto) Cancelled, Baso % (Auto) Cancelled, Absolute Neuts (auto) Cancelled, Absolute Lymphs (auto) Cancelled, Total Counted Cancelled, Neutrophils % (Manual) Cancelled, Band Neutrophils % Cancelled, Lymphocytes % (Manual) Cancelled, Monocytes % (Manual) Cancelled, Eosinophils % (Manual) Cancelled, Basophils % (Manual) Cancelled, Metamyelocytes % Cancelled, Myelocytes % Cancelled, Promyelocytes % Cancelled, Blast Cells % Cancelled, Plasma Cell % (Manual) Cancelled, Other Cells % Cancelled, Nucleated RBC % Cancelled, Nucleated RBCs/100 WBC Cancelled, Differential Comment Cancelled, Diff Path Review Cancelled, Hypersegmented Neuts Cancelled, Atypical Lymphocytes Cancelled, Reactive Lymphocytes Cancelled, Smudge Cells Cancelled, Toxic Granulation Cancelled, Toxic Vacuolation Cancelled, Dohle Bodies Cancelled, Danya Rods Cancelled, Platelet Estimate Cancelled, Plt Morphology Comment Cancelled, RBC Morphology Cancelled, Polychromasia Cancelled, Hypochromasia Cancelled, Poikilocytosis Cancelled, Basophilic Stippling Cancelled, Anisocytosis Cancelled, Microcytosis Cancelled, Macrocytosis Cancelled, Spherocytes Cancelled, Sickle Cells Cancelled, Target Cells Cancelled, Tear Drop Cells Cancelled, Ovalocytes Cancelled, Stomatocytes Cancelled, Garcia-Brook Bodies Cancelled, [place] Cells Cancelled, Bite Cells Cancelled, Crenated Cell Cancelled, Acanthocytes (Spur) Cancelled, Rouleaux Cancelled, Schistocytes Cancelled 05/07/20 14:35: PT 12.8, INR 1.0, APTT 23.2 L 05/07/20 14:35: Sodium Cancelled, Potassium Cancelled, Chloride Cancelled, Carbon Dioxide Cancelled, Anion Gap Cancelled, BUN Cancelled, Creatinine Cancelled, Estim Creat Clear Calc Cancelled, Est GFR (MDRD) Af Amer Cancelled, Est GFR (MDRD) Non-Af Cancelled, BUN/Creatinine Ratio Cancelled, Glucose Cancelled, Calcium Cancelled, Total Bilirubin Cancelled, AST Cancelled, ALT Cancelled, Alkaline Phosphatase Cancelled, Total Protein Cancelled, Albumin Cancelled, Globulin Cancelled, Albumin/Globulin Ratio Cancelled 05/07/20 14:35: Lactic Acid 4.4 H* 05/07/20 14:44: Urine Color Yellow, Urine Clarity Sl. Cloudy, Urine pH 7.0, Ur Specific [place] 1.010, Urine Protein 30 H, Urine Glucose (UA) Normal, Urine Ketones Negative, Urine Occult Blood Negative, Urine Nitrite Positive H, Urine Bilirubin Negative, Urine Urobilinogen Normal, Ur Leukocyte Esterase 500 H, Urine RBC 0 SEEN, Urine WBC 25-50 SEEN, Ur Squamous Epith Cells 0-5 SEEN, Urine Bacteria 1+, Urine Mucus 0 SEEN Current Medications Acetaminophen (Acetaminophen 500 Mg Tablet) 500 mg PO TID [facility] Al Hydroxide/Mg Hydroxide (Mag Hydrox/Al Hydrox/Simeth 30 Ml Udc) 30 ml PO Q6H PRN PRN PRN Reason: Gastric Burning Amlodipine Besylate (Amlodipine 10 Mg Tablet) 10 mg PO DAILY [facility] Atorvastatin Calcium (Atorvastatin Calcium 20 Mg Tablet) 20 mg PO QHS [facility] Duloxetine HCl (Duloxetine Hcl 30 Mg Capsule) 30 mg PO DAILY [facility] Ferrous Gluconate (Ferrous Gluconate 324 Mg Tablet) 324 mg PO DAILY [facility] Sodium Chloride () 1,000 mls @ 100 mls/hr IV .Q10H [facility] Stop: 05/08/20 04:09 Lisinopril (Lisinopril 20 Mg Tablet) 20 mg PO DAILY [facility] Metoprolol Succinate (Metoprolol(Xl)Succ 25 Mg Tablet) 25 mg PO DAILY [facility] Morphine Sulfate (Morphine 2 Mg/Ml Syringe) 2 mg IV Q3H PRN PRN PRN Reason: Pain Score 6-10 Nitroglycerin (Nitroglycerin (Inpatient Use) 0.4 Mg Tab.Subl) 0.4 mg SUBLINGUAL Q5M PRN PRN Reason: CARDIAC/CHEST PAIN Non-Formulary Medication (Multivit-Min/Fa/Lycopen/Lutein [Centrum Silver Men Tablet]) 1 tab PO DAILY [facility] Non-Formulary Medication (Omeprazole) 20 mg PO DAILY [facility] Ondansetron HCl (Ondansetron 4 Mg/2 Ml Vial) 4 mg IV Q8H PRN PRN PRN Reason: NAUSEA/VOMITING Orphenadrine Citrate (Orphenadrine 100 Mg Tablet) 100 mg PO DAILY [facility] Senna/Docusate Sodium (Senna/Docusate Sodium 1 Tablet) 2 tablet PO BID PRN PRN PRN Reason: Constipation Sodium Chloride (0.9% Saline Lock 10 Ml Syringe) 10 - 40 ml IV UD PRN PRN Reason: SALINE FLUSH Assessment/Plan This patient was seen in conjunction with ALONA Valles. I have independently interviewed and examined the patient and reviewed pertinent historical, laboratory, and other data. Please refer to ALONA Valles note for his patient's presentation, findings, and recommendations. I have reviewed and his note and concur with his documentation Patient is a poor historian: History was obtained from the 84-year-old male with multiple comorbidities who was recently discharged on 03/27/20 after admission for septic shock/acute COVID-19 pneumonia/acute kidney injury. Patient is still in the [facility]. He was brought in for an outpatient neurology appointment with Dr. Mares. Whilst waiting for the appointment, patient had a syncopal episode. A rapid response was called. Patient was found in the future, unresponsive. His Blood sugar was 149, his BP was in 70s. In the ED, BP was 81/47, HR 58, Temp 97F, rate was 142, Spo2 was 97% on 3L. WBC count 5.5, hemoglobin 10.8, Plt 343, INR 1.0, Na 139, K 3.1, Cl 105, HCO3 25, BUN 25, Cr 0.90, Glu 152, uric acid was 4.4 UA was slightly cloudy, nitrite positive, esterase positive, WBC 25-50 2d-ECHO on 07/04 showed EF 53%, stage 2 diastolic dysfunction Per his , he has no reported history of seizure disorder but he has had episodes where he has passed out. He sees Dr. Mares for chronic back pain with spasms. Physical Exam: Gen: Appeared frail, not pale, not jaundiced, CVS:HS I +II, regular, no murmurs RESP: Diminished at lung bases GI: BS present and normal, soft, nontender, no palpable organs EXT:No edema ASSESSMENT: 1. Syncope vs seizure 2. A fib with RVR 3. Acute UTI 4. Hypokalemia 5. Lactic acidosis likely secondary to hypoxia 6. Acute hypoxic respiratory insufficiency 7. CAD s/p stents 8. PAD s/p stents 9. Hypertension 10. Hyperlipidemia 11. Code status: DNR-CCA -confirmed with his and staff of the [facility] in [place] Plan: Check procalcitonin and BNPep Continue IVF Trend lactic acid per protocol EEG Recheck orthostatic vitals in am Follow-up for blood and urine cultures IV Rocephin Increase metoprolol to 25mg daily Cardiology consult Trend troponins Consider SOC consult if EEG is remarkable Wean off oxygen Inpatient E&M: 26346 Init Hosp L3
--- NOTE | 2020-05-07 17:50 | PCS.PANDOC ---
PANDEMIC DOCUMENTATION INITIATED: Date: Time: 17:50
--- NOTE | 2020-05-07 18:31 | EKG12_ITS ---
Test Reason : RHYTHM CHANGE Blood Pressure : / mmHG Vent. Rate : 077 BPM Atrial Rate : 077 BPM P-R Int : 104 ms QRS Dur : 132 ms QT Int : 422 ms P-R-T Axes : 071 080 070 degrees QTc Int : 477 ms Sinus rhythm with short NJ with Premature atrial complexes Right bundle branch block Abnormal ECG When compared with ECG of 07-MAY-2020 14:18, MANUAL COMPARISON REQUIRED, DATA IS UNCONFIRMED Confirmed by AUNDREA MONTES, MANUEL ([id number]), film editor supervisor REHAN GASPAR ([id number]) on 05/18/2020 12:56:58 PM Referred By: SANDRA Confirmed By:JAIR GUILLAUME MD
[2020-05-07 18:35] LABS: Magnesium 2.2 mg/dL (1.6-2.6)
[2020-05-07 18:39] LABS: Reflex Lactate? Y
[2020-05-07] MEDS: 0.9% Normal Saline 1,000 ML 100 ML IV (18:59)
[2020-05-07 19:45] LABS: Lactic Acid 2.1 mmol/L (0.4-1.9)
[2020-05-07 19:58] LABS: Procalcitonin 0.61 ng/mL (0.00-0.09)
[2020-05-07] MEDS: Ceftriaxone 1 GM/50 ML BAG IV (22:31)
[2020-05-07] MEDS: Atorvastatin Calcium 20 MG Tablet PO (22:34)
[2020-05-08] VITALS (21 sets, daily range): BP systolic 113–141; BP diastolic 53–87; PULSE 64–133; RESP 15–20; TEMP 36.4–37.2; O2SAT 95–98; BMI 18.1
[2020-05-08] MEDS: dilTIAZem 25 MG/5 ML Vial 10 MG IV BOLUS (05:48)
[2020-05-08] MEDS: Acetaminophen 500 MG Tablet PO ×3 (05:54→21:14)
[2020-05-08 06:56] LABS: Absolute Neutrophil Count 9.5 X10^3/uL (2.0-7.7); Basophil# 0.03 X10^3/uL; Basophil% 0.3 % (0-1); Eosinophil# 0.04 X10^3/uL; Eosinophils% 0.4 % (0-5); Hematocrit 27.2 % (40-54); Hemoglobin 8.4 g/dL (13.0-16.5); Lymphocyte % 5.3 % (19-41); Mean Corp Hgb Conc 30.9 g/dL (32-36); Mean Corpuscular Hgb 30.1 pg (27.0-32.0); Mean Corpuscular Volume 97.5 fL (80-94); Mean Platelet Vol. 9.6 fl (6.2-12.0); Monocyte# 1.06 X10^3/uL; Monocyte% 9.4 % (0-10); NRBC Flagged by Analyzer 0 % (0-5); Neutrophil # 9.46 X10^3/uL (2.7-7.7); Neutrophil % 84.2 % (47-70); POSITIVE DIFFERENTIAL YES; Platelet Count 262 K/mm3 (150-450); RBC Distribution Width CV 16.5 % (11.6-14.6); RBC Distribution Width SD 58.4 fl (35.1-43.9); Red Blood Count 2.79 M/mm3 (4.6-6.2); White Blood Count 11.2 K/mm3 (4.4-11.0)
[2020-05-08 07:02] LABS: Differential Indicated SCAN CRITERIA MET
[2020-05-08 07:25] LABS: ALB/GLOB Ratio 0.6 RATIO (0.9-2.4); AST(SGOT) 28 U/L (15-37); Alanine Aminotransfer ALT/SGPT 33 U/L (16-61); Albumin, Serum 2.1 g/dL (3.2-5.0); Alkaline Phosphatase 105 U/L (45-117); Anion Gap 4 (5-15); BUN 27 mg/dL (7-18); BUN/Creat Ratio 37.6 RATIO (10-20); Calcium,Total 8.5 mg/dL (8.5-10.1); Chloride 111 mmol/L (98-107); Creatinine, Serum 0.72 mg/dL (0.70-1.30); EST Glomerular Filtration Rate 110 mL/min (>60); Est Glom Filt Rate - Afr Amer 134 mL/min (>60); Estimated Creatinine Clearance 43.85 ml/min; Globulin 3.3 g/dL (2.2-4.2); Glucose 114 mg/dL (74-106); Protein, Total 5.4 g/dL (6.4-8.2); Sodium Level 142 mmol/L (136-145)
[2020-05-08] MEDS: Metoprolol(XL)Succ 25 MG Tablet PO (07:40)
[2020-05-08] MEDS: DULoxetine Hcl 30 MG Capsule PO (07:40)
[2020-05-08] MEDS: Ferrous Gluconate 324 MG Tablet PO (07:40)
[2020-05-08] MEDS: Pantoprazole Sodium 20 MG Tablet PO (07:40)
[2020-05-08] MEDS: Multivitamins,Ther W-Minerals Tablet 1 TABLET PO (07:40)
[2020-05-08 07:51] LABS: Bedside Glucose 146 mg/dL (70-110)
[2020-05-08] MEDS: 0.9% Saline Lock 10 ML Syringe IV (07:58)
--- NOTE | 2020-05-08 08:15 | NURSING ---
This RN taking over care at this time
--- NOTE | 2020-05-08 09:03 | TELEMED_ITS ---
[facility] has confirmed receipt of a request for visit. This document confirms receipt of the order initiating the consult. To find the results of the consultation, please view the patient's reports for the scanned Telemed Consult.
[2020-05-08] MEDS: amLODIPine 10 MG Tablet PO (09:58)
[2020-05-08] MEDS: Lisinopril 20 MG Tablet PO (09:58)
[2020-05-08] MEDS: Ceftriaxone 1 GM/50 ML BAG IV (09:59)
--- NOTE | 2020-05-08 10:00 | NURSING ---
unable to complete orthos upon standing due to weakness
[2020-05-08] MEDS: Orphenadrine 100 MG Tablet PO (10:47)
--- NOTE | 2020-05-08 12:10 | PCM.RX.CS ---
Consult Pharmacy has been consulted to manage selected antiobiotic: Vancomycin Type of Consult: New start Suspected Infection: Sepsis Labs: Sodium 142 mmol/L (136-145) 05/08/20 06:22 Potassium 4.0 mmol/L (3.5-5.1) 05/08/20 06:22 Chloride 111 mmol/L (98-107) H 05/08/20 06:22 Carbon Dioxide 27.0 mmol/L (21.0-32.0) 05/08/20 06:22 Anion Gap 4 (5-15) L 05/08/20 06:22 BUN 27 mg/dL (7-18) H 05/08/20 06:22 Creatinine 0.72 mg/dL (0.70-1.30) 05/08/20 06:22 Est GFR (MDRD) Af Amer 134 mL/min (>60) 05/08/20 06:22 Est GFR (MDRD) Non-Af 110 mL/min (>60) 05/08/20 06:22 BUN/Creatinine Ratio 37.6 RATIO (10-20) H 05/08/20 06:22 Glucose 114 mg/dL (74-106) H 05/08/20 06:22 Microbiology: Microbiology 05/08/20 11:10 Mucosa - Nasopharyngeal SARS-CoV-2 Antigen (Rapid) - Final Goal Trough: 15-20 mcg/mL Pharmacy Plan for Drug Dosing: NEW START IV VANCOMYCIN Consulting Physician: MARY Indication: SEPSIS Goal Trough: 15-20 MG/DL SrCr: 0.72 (05/08) CrCl: 60.8 ML/MIN USING ACTUAL BODY WEIGHT Comments: HISTORY OF ENTEROCOCCUS FAECIUM UTI, SUSCEPTIBLE TO VANCO LAST ADMISSION. LOADING DOSE OF 1500MG GIVEN 05/08 @ 1133 Vancomycin Dose: 750MG Q12H STARTING @ 2330. DRAW TROUGH PRIOR TO 4TH DOSE. Pharmacy Service will continue to monitor and adjust dosing as required. Labs to be done on [date and time ordered]: 05/10/20 @ 2300
--- NOTE | 2020-05-08 12:57 | PN_ITS ---
<Laith Pettit - Last Filed: 05/08/20 12:57> Patient Problems: Active and Suspected Problems (Last Updated 03/24/20 @ 10:[address] Audrey Tolliver MD) Atrial fibrillation with RVR (Acute) Subjective: afib rvr, UTI Objective: No LH/dizziness, chest pain, palp, racing. HR improved. No fever/chills. Pt denies dysuria, reports chronic high urinary frequency. No N/V/D. Pt states he feels very tired and weak still. Vitals/I&O's: Vital Signs Temp Pulse Resp BP Pulse Ox 98.4 F 68 18 125/53 H 96 05/08/20 09:58 05/08/20 09:58 05/08/20 09:58 05/08/20 09:58 05/08/20 09:58 Oxygen Flow Rate (L/min) 2 Oxygen Delivery Method Room Air Weight: 126 lb 8.725 oz Body Mass Index (BMI) 18.1 Orthostatic Vital Signs Start: 05/08/20 08:18 Freq: q24h Status: Active Protocol: Activity Type Activity Date Activity User E-Sign Co-Sign Detail Recorded Client Recorded Date Recorded By Document 05/08/20 09:49 AMG [id number] 05/08/20 09:55 AMG 05/08/20 09:49 Orthostatic Vitals Sitting -Blood Pressure (90/60-120/80) 114/60 -Extremity Use Right Arm -Pulse Rate (60-100) 71 Lying -Blood Pressure (90/60-120/80) 115/73 -Extremity Use Right Arm -Pulse Rate (60-100) 75 Intake and Output for Last 24 Hours 05/06/20 05/07/20 05/08/20 23:59 23:59 23:59 Intake Total 1170 / 1170 1780.17 / 1780.17 Balance 1170 / 1170 1780.17 / 1780.17 General: Alert, Oriented x3, Cooperative HEENT: Atraumatic, PERRLA, EOMI, Normocephalic Neck: Supple, No JVD, Negative Carotid Bruits Lungs: Clear to auscultation, Normal air movement Cardiovascular: Regular rate, No murmurs Abdomen: Bowel Sounds Present, Soft, Non Tender Extremities: No edema, Capillary Refill Less than 3 Seconds Skin: No rashes, No breakdown Musculoskeletal: No Tenderness to Palpation of Joints or Extremities Neurological: Cranial nerves II-XII grossly intact Psych/Mental Status: Normal Affect, Appropriate, Alert and oriented to time, place, person, mood and affect Microbiology Past 72 Hours 05/07/20 Unknown Urine, Catheterized Urine Culture - Preliminary Presumptive E. coli 05/07/20 14:44 Urine, Clean Catch Urine Culture - Preliminary Presumptive E. coli 05/08/20 11:10 Mucosa - Nasopharyngeal SARS-CoV-2 Antigen (Rapid) - Final Laboratory Results 05/07/20 14:09: POC Glucose 146 H 05/07/20 14:20: Magnesium 2.2 05/07/20 14:21: WBC 5.5, RBC 3.55 L, Hgb 10.8 L, Hct 34.2 L, MCV 96.3 H, MCH 30.4, MCHC 31.6 L, RDW Std Deviation 56.6 H, RDW Coeff of Ayesha 15.9 H, Plt Count 343, MPV 8.9, Immature Gran % (Auto) 0.500, Neut % (Auto) 62.6, Lymph % (Auto) 27.8, Faulkner % (Auto) 8.2, Eos % (Auto) 0.5, Baso % (Auto) 0.4, Absolute Neuts ( auto) 3.4, Absolute Lymphs (auto) 1.53, Nucleated RBC % 0 05/07/20 14:21: Sodium 139, Potassium 3.1 L, Chloride 105, Carbon Dioxide 25.0, Anion Gap 9, BUN 25 H, Creatinine 0.90, Estim Creat Clear Calc 49.57, Est GFR (MDRD) Af Amer 104, Est GFR (MDRD) Non-Af 86, BUN/Creatinine Ratio 27.9 H, Glucose 152 H, Calcium 9.2, Troponin I 0.025 05/07/20 14:21: B-Natriuretic Peptide 73.0 05/07/20 14:35: WBC Cancelled, Corrected WBC Cancelled, RBC Cancelled, Hgb Cancelled, Hct Cancelled, MCV Cancelled, MCH Cancelled, MCHC Cancelled, RDW Std Deviation Cancelled, RDW Coeff of Ayesha Cancelled, Plt Count Cancelled, MPV Cancelled, Immature Gran % (Auto) Cancelled, Neut % (Auto) Cancelled, Lymph % (Auto) Cancelled, Faulkner % (Auto) Cancelled, Eos % (Auto) Cancelled, Baso % (Auto) Cancelled, Absolute Neuts (auto) Cancelled, Absolute Lymphs (auto) Cancelled, Total Counted Cancelled, Neutrophils % (Manual) Cancelled, Band Neutrophils % Cancelled, Lymphocytes % (Manual) Cancelled, Monocytes % (Manual) Cancelled, Eosinophils % (Manual) Cancelled, Basophils % (Manual) Cancelled, Metamyelocytes % Cancelled, Myelocytes % Cancelled, Promyelocytes % Cancelled, Blast Cells % Cancelled, Plasma Cell % (Manual) Cancelled, Other Cells % Cancelled, Nucleated RBC % Cancelled, Nucleated RBCs/100 WBC Cancelled, Differential Comment Cancelled, Diff Path Review Cancelled, Hypersegmented Neuts Cancelled, Atypical Lymphocytes Cancelled, Reactive Lymphocytes Cancelled, Smudge Cells Cancelled, Toxic Granulation Cancelled, Toxic Vacuolation Cancelled, Dohle Bodies Cancelled, Danya Rods Cancelled, Platelet Estimate Cancelled, Plt Morphology Comment Cancelled, RBC Morphology Cancelled, Polychromasia Cancelled, Hypochromasia Cancelled, Poikilocytosis Cancelled, Basophilic Stippling Cancelled, Anisocytosis Cancelled, Microcytosis Cancelled, Macrocytosis Cancelled, Spherocytes Cancelled, Sickle Cells Cancelled, Target Cells Cancelled, Tear Drop Cells Cancelled, Ovalocytes Cancelled, Stomatocytes Cancelled, Garcia-Welda Bodies Cancelled, Devante Cells Cancelled, Bite Cells Cancelled, Crenated Cell Cancelled, Acanthocytes (Spur) Cancelled, Rouleaux Cancelled, Schistocytes Cancelled 05/07/20 14:35: PT 12.8, INR 1.0, APTT 23.2 L 05/07/20 14:35: Sodium Cancelled, Potassium Cancelled, Chloride Cancelled, Carbon Dioxide Cancelled, Anion Gap Cancelled, BUN Cancelled, Creatinine Cancelled, Estim Creat Clear Calc Cancelled, Est GFR (MDRD) Af Amer Cancelled, Est GFR (MDRD) Non-Af Cancelled, BUN/Creatinine Ratio Cancelled, Glucose Cancelled, Calcium Cancelled, Total Bilirubin Cancelled, AST Cancelled, ALT Cancelled, Alkaline Phosphatase Cancelled, Total Protein Cancelled, Albumin Cancelled, Globulin Cancelled, Albumin/Globulin Ratio Cancelled 05/07/20 14:35: Lactic Acid 4.4 H* 05/07/20 14:44: Urine Color Yellow, Urine Clarity Sl. Cloudy, Urine pH 7.0, Ur Specific Esopus 1.010, Urine Protein 30 H, Urine Glucose (UA) Normal, Urine Ketones Negative, Urine Occult Blood Negative, Urine Nitrite Positive H, Urine Bilirubin Negative, Urine Urobilinogen Normal, Ur Leukocyte Esterase 500 H, Urine RBC 0 SEEN, Urine WBC 25-50 SEEN, Ur Squamous Epith Cells 0-5 SEEN, Urine Bacteria 1+, Urine Mucus 0 SEEN 05/07/20 19:07: Troponin I 0.032 05/07/20 19:07: Lactic Acid 2.1 H* 05/07/20 19:07: Procalcitonin 0.61 H 05/07/20 21:56: Troponin I 0.030 05/08/20 06:22: WBC 11.2 H, RBC 2.79 L, Hgb 8.4 L, Hct 27.2 L, MCV 97.5 H, MCH 30.1, MCHC 30.9 L, RDW Std Deviation 58.4 H, RDW Coeff of Ayesha 16.5 H, Plt Count 262, MPV 9.6, Immature Gran % (Auto) 0.400, Neut % (Auto) 84.2 H, Lymph % (Auto) 5.3 L, Faulkner % (Auto) 9.4, Eos % (Auto) 0.4, Baso % (Auto) 0.3, Absolute Neuts (auto) 9.5 H, Absolute Lymphs (auto) 0.60 L, Nucleated RBC % 0 05/08/20 06:22: Sodium 142, Potassium 4.0, Chloride 111 H, Carbon Dioxide 27.0, Anion Gap 4 L, BUN 27 H, Creatinine 0.72, Estim Creat Clear Calc 43.85, Est GFR (MDRD) Af Amer 134, Est GFR (MDRD) Non-Af 110, BUN/Creatinine Ratio 37.6 H, Glucose 114 H, Calcium 8.5, Total Bilirubin 0.20, AST 28, ALT 33, Alkaline Phosphatase 105, Total Protein 5.4 L, Albumin 2.1 L, Globulin 3.3, Albumin/Globulin Ratio 0.6 L Current Medications Acetaminophen (Acetaminophen 500 Mg Tablet) 500 mg PO TID [facility] Last Admin: 05/08/20 05:54 Dose: 500 mg Documented by: Al Hydroxide/Mg Hydroxide (Mag Hydrox/Al Hydrox/Simeth 30 Ml Udc) 30 ml PO Q6H PRN PRN PRN Reason: Gastric Burning Amlodipine Besylate (Amlodipine 10 Mg Tablet) 10 mg PO DAILY [facility] Last Admin: 05/08/20 09:58 Dose: 10 mg Documented by: Atorvastatin Calcium (Atorvastatin Calcium 20 Mg Tablet) 20 mg PO QHS [facility] Last Admin: 05/07/20 22:34 Dose: 20 mg Documented by: Duloxetine HCl (Duloxetine Hcl 30 Mg Capsule) 30 mg PO DAILY [facility] Last Admin: 05/08/20 07:40 Dose: 30 mg Documented by: Ferrous Gluconate (Ferrous Gluconate 324 Mg Tablet) 324 mg PO DAILY [facility] Last Admin: 05/08/20 07:40 Dose: 324 mg Documented by: Ceftriaxone Sodium (Rocephin) 1 gm in 50 mls @ 100 mls/hr IV Q24 [facility] Last Infusion: 05/08/20 10:35 Dose: Infused Documented by: Vancomycin IV Pharmacy to Dose (1 ea/ Sodium Chloride) 500 mls @ 250 mls/hr IV X1 PRN; Protocol PRN Reason: Rx to Dose Vancomycin HCl 1,500 mg/ (Sodium Chloride) 530 mls @ 250 mls/hr IV X1 ONE Stop: 05/08/20 13:37 Last Admin: 05/08/20 11:33 Dose: 250 mls/hr Documented by: Vancomycin HCl 750 mg/ Sodium (Chloride) 265 mls @ 250 mls/hr IV Q12H [facility] Lisinopril (Lisinopril 20 Mg Tablet) 20 mg PO DAILY [facility] Last Admin: 05/08/20 09:58 Dose: 20 mg Documented by: Metoprolol Succinate (Metoprolol(Xl)Succ 25 Mg Tablet) 25 mg PO DAILY [facility] Last Admin: 05/08/20 07:40 Dose: 25 mg Documented by: Morphine Sulfate (Morphine 2 Mg/Ml Syringe) 2 mg IV Q3H PRN PRN PRN Reason: Pain Score 6-10 Multivitamins/Minerals (Multivitamins,Ther W-Minerals Tablet) [facility] Last Admin: 05/08/20 07:40 Dose: 1 tablet Documented by: Nitroglycerin (Nitroglycerin (Inpatient Use) 0.4 Mg Tab.Subl) 0.4 mg SUBLINGUAL Q5M PRN PRN Reason: CARDIAC/CHEST PAIN Orphenadrine Citrate (Orphenadrine 100 Mg Tablet) 100 mg PO DAILY [facility] Last Admin: 05/08/20 10:47 Dose: 100 mg Documented by: Pantoprazole Sodium (Pantoprazole Sodium 20 Mg Tablet) 20 mg PO DAILY [facility] Last Admin: 05/08/20 07:40 Dose: 20 mg Documented by: Senna/Docusate Sodium (Senna/Docusate Sodium 1 Tablet) 2 tablet PO BID PRN PRN PRN Reason: Constipation Sodium Chloride (0.9% Saline Lock 10 Ml Syringe) 10 - 40 ml IV UD PRN PRN Reason: SALINE FLUSH Last Admin: 05/08/20 07:58 Dose: 10 ml Documented by: STROKE Vital Signs/Narrative: Vital Signs Temp Pulse Pulse Pulse Resp BP BP 05/08/20 09:58 98.4 F 68 18 125/53 H 05/08/20 09:49 75 71 115/73 BP Pulse Ox 05/08/20 09:58 96 05/08/20 09:49 114/60 Medical Necessity - Tobacco Use Smoking Status: Never smoker Tobacco Use: Non-smoker Assessment/Plan All Active Problems (Last Updated 03/24/20 @ 10:[address] Audrey Tolliver MD) Septic shock (Acute) Pneumonia due to COVID-19 virus (Acute) Acute kidney injury (Acute) Acute diarrheal illness (Acute) Atrial fibrillation with RVR (Acute) 1. Syncope 2/2 afib rvr - new onset - improved with cardizem. Increased beta juan a. Continue lovenox. Consult cardiology - pt of Dr. Loera. Last echo 06/2019. -Normal EEG. 2. Acute cystitis - possibly contributing to above. UA +. Pt now has increased WBCs. Procalcitonin positive. No fever. Recent UA with Klebsiella oxytoca, E coli, Enterococcus faecium. Rocephin continued, vanco added to cover Enterococcus per sensitivity. Await repeat urine cultures -prelim is presumptive E coli. Blood culture pending. Covid test neg. 3. Hx CAD - prior stents. pt of Dr. Loera. Pt not on aspirin. Continue atorvastatin, metoprolol, lisinopril. 4. Hx PAD with prior stent 5. HTN - low BP on presentation but improved with improvement in RVR 6. HLD - statin 7. Mildly macrocytic anemia - hgb 10.8-->8.4 Will recheck in AM.No obvious bleeding DVT ppx: lovenox DC planning: from [facility] This patient was seen by Laith Pettit PA-C under the supervision of Dr. Hightower <Mark Goldstein - Last Filed: 05/08/20 16:24> Vitals/I&O's: Vital Signs Temp Pulse Resp BP Pulse Ox 36.8 C 76 18 139/68 H 96 05/08/20 15:58 05/08/20 15:58 05/08/20 15:58 05/08/20 15:58 05/08/20 15:58 Oxygen Flow Rate (L/min) 2 Oxygen Delivery Method Room Air Weight: 57.4 kg Body Mass Index (BMI) 18.1 Orthostatic Vital Signs Start: 05/08/20 08:18 Freq: q24h Status: Active Protocol: Activity Type Activity Date Activity User E-Sign Co-Sign Detail Recorded Client Recorded Date Recorded By Document 05/08/20 09:49 AMG [id number] 05/08/20 09:55 AMG 05/08/20 09:49 Orthostatic Vitals Sitting -Blood Pressure (90/60-120/80) 114/60 -Extremity Use Right Arm -Pulse Rate (60-100) 71 Lying -Blood Pressure (90/60-120/80) 115/73 -Extremity Use Right Arm -Pulse Rate (60-100) 75 Intake and Output for Last 24 Hours 05/06/20 05/07/20 05/08/20 23:59 23:59 23:59 Intake Total 1170 / 1170 2310.17 / 2310.17 Balance 1170 / 1170 2310.17 / 2310.17 General: Alert, Cooperative, - - dozes off HEENT: Atraumatic, Normocephalic Neck: Supple, No JVD, Negative Carotid Bruits Lungs: Clear to auscultation, Normal air movement, No rhonchi, No wheeze Cardiovascular: Regular rate, Regular Rhythm, Normal S1, Normal S2, No murmurs Abdomen: Bowel Sounds Present, Soft, Non Tender Extremities: No edema, No Calf Tenderness Skin: No rashes, No breakdown Psych/Mental Status: Normal Affect, Appropriate Microbiology Past 72 Hours 05/07/20 Unknown Urine, Catheterized Urine Culture - Preliminary Presumptive E. coli 05/07/20 14:44 Urine, Clean Catch Urine Culture - Preliminary Presumptive E. coli 05/08/20 11:10 Mucosa - Nasopharyngeal SARS-CoV-2 Antigen (Rapid) - Final Laboratory Results 05/07/20 14:09: POC Glucose 146 H 05/07/20 14:20: Magnesium 2.2 05/07/20 14:21: B-Natriuretic Peptide 73.0 05/07/20 19:07: Troponin I 0.032 05/07/20 19:07: Lactic Acid 2.1 H* 05/07/20 19:07: Procalcitonin 0.61 H 05/07/20 21:56: Troponin I 0.030 05/08/20 06:22: WBC 11.2 H, RBC 2.79 L, Hgb 8.4 L, Hct 27.2 L, MCV 97.5 H, MCH 30.1, MCHC 30.9 L, RDW Std Deviation 58.4 H, RDW Coeff of Ayesha 16.5 H, Plt Count 262, MPV 9.6, Immature Gran % (Auto) 0.400, Neut % (Auto) 84.2 H, Lymph % (Auto) 5.3 L, Faulkner % (Auto) 9.4, Eos % (Auto) 0.4, Baso % (Auto) 0.3, Absolute Neuts (auto) 9.5 H, Absolute Lymphs (auto) 0.60 L, Nucleated RBC % 0 05/08/20 06:22: Sodium 142, Potassium 4.0, Chloride 111 H, Carbon Dioxide 27.0, Anion Gap 4 L, BUN 27 H, Creatinine 0.72, Estim Creat Clear Calc 43.85, Est GFR (MDRD) Af Amer 134, Est GFR (MDRD) Non-Af 110, BUN/Creatinine Ratio 37.6 H, Glucose 114 H, Calcium 8.5, Total Bilirubin 0.20, AST 28, ALT 33, Alkaline Phosphatase 105, Total Protein 5.4 L, Albumin 2.1 L, Globulin 3.3, Albumin/Globulin Ratio 0.6 L Current Medications Acetaminophen (Acetaminophen 500 Mg Tablet) 500 mg PO TID [facility] Last Admin: 05/08/20 13:55 Dose: 500 mg Documented by: Al Hydroxide/Mg Hydroxide (Mag Hydrox/Al Hydrox/Simeth 30 Ml Udc) 30 ml PO Q6H PRN PRN PRN Reason: Gastric Burning Amlodipine Besylate (Amlodipine 5 Mg Tablet) 5 mg PO DAILY [facility] Atorvastatin Calcium (Atorvastatin Calcium 20 Mg Tablet) 20 mg PO QHS [facility] Last Admin: 05/07/20 22:34 Dose: 20 mg Documented by: Duloxetine HCl (Duloxetine Hcl 30 Mg Capsule) 30 mg PO DAILY [facility] Last Admin: 05/08/20 07:40 Dose: 30 mg Documented by: Ferrous Gluconate (Ferrous Gluconate 324 Mg Tablet) 324 mg PO DAILY [facility] Last Admin: 05/08/20 07:40 Dose: 324 mg Documented by: Ceftriaxone Sodium (Rocephin) 1 gm in 50 mls @ 100 mls/hr IV Q24 [facility] Last Infusion: 05/08/20 10:35 Dose: Infused Documented by: Vancomycin IV Pharmacy to Dose (1 ea/ Sodium Chloride) 500 mls @ 250 mls/hr IV X1 PRN; Protocol PRN Reason: Rx to Dose Vancomycin HCl 750 mg/ Sodium (Chloride) 265 mls @ 250 mls/hr IV Q12H [facility] Lisinopril (Lisinopril 5 Mg Tablet) 5 mg PO DAILY [facility] Metoprolol Tartrate (Metoprolol Tartrate 25 Mg Tablet) 25 mg PO BID [facility] Morphine Sulfate (Morphine 2 Mg/Ml Syringe) 2 mg IV Q3H PRN PRN PRN Reason: Pain Score 6-10 Multivitamins/Minerals (Multivitamins,Ther W-Minerals Tablet) [facility] Last Admin: 05/08/20 07:40 Dose: 1 tablet Documented by: Nitroglycerin (Nitroglycerin (Inpatient Use) 0.4 Mg Tab.Subl) 0.4 mg SUBLINGUAL Q5M PRN PRN Reason: CARDIAC/CHEST PAIN Nutritional Formula (Lactose Free) (Ensure Enlive 120 Ml Liquid) 120 ml PO 4X/DAY [facility] Orphenadrine Citrate (Orphenadrine 100 Mg Tablet) 100 mg PO DAILY [facility] Last Admin: 05/08/20 10:47 Dose: 100 mg Documented by: Pantoprazole Sodium (Pantoprazole Sodium 20 Mg Tablet) 20 mg PO DAILY [facility] Last Admin: 05/08/20 07:40 Dose: 20 mg Documented by: Senna/Docusate Sodium (Senna/Docusate Sodium 1 Tablet) 2 tablet PO BID PRN PRN PRN Reason: Constipation Sodium Chloride (0.9% Saline Lock 10 Ml Syringe) 10 - 40 ml IV UD PRN PRN Reason: SALINE FLUSH Last Admin: 05/08/20 07:58 Dose: 10 ml Documented by: STROKE Vital Signs/Narrative: Vital Signs Temp Pulse Resp BP Pulse Ox 05/08/20 15:58 36.8 C 76 18 139/68 H 96 05/08/20 15:00 70 Assessment/Plan Patient seen and examined independently. Data reviewed. I agree with the above note by the physician machine assistant. 1. Syncope: Secondary to A. fib with RVR and UTI. Resolved. 2. A. fib with RVR: Resolved. Stable. Metoprolol succinate changed over to metoprolol tartrate 25 twice daily. Thus far stable. 3. UTI: Positive E. coli. Continue ceftriaxone. DC vancomycin Inpatient E&M: 53273 Subs Hosp L2
--- NOTE | 2020-05-08 13:14 | CON.PCM_ITS ---
Reason for Consult Date of Consultation: 05/08/20 Reason for Consultation: Syncopal episode History of Present Illness: The patient is a 84 year old M with a known historyof coronary artery disease status post angioplasty and stenting of the right coronary artery ?2 in 2004 restenosis in 2011 and again in 2013 and 2015. He also has significant peripheral vascular disease and he has had stents placed to his right lower extremity due to ulcers that were not healing. He did present to the hospital again in June of 2019 with chest discomfort and had a non-ST elevation myocardial infarction with peak troponin at 1.15. He underwent a cardiac catheterization which demonstrated a totally occluded right coronary artery with [id number] collaterals. The proximal LAD had a 30% stenosis, first diagonal vessel with 70% stenosis, circumflex artery with a 30% stenosis. Medical therapy was recommended and he was apparently doing well. In the fall of last year he unfortunately contracted COVID-19 was in the ICU and subsequently in the Covid unit and then subsequently discharged to an extended care facility in [place] and then recently brought to the [facility]. He was apparently doing well there until this morning when he was brought in apparently with a situation w here he was less responsive than usual. He was going for an appointment to see the neurologist and he apparently passed out. He thinks that he passed out completely. In the emergency room he was noted to be in atrial fibrillation with a rapid ventricular response rate and hypotensive. He was given intravenous fluids with improvement in improvement in his sensorium. At this particular time he appears to be fairly completely lucid he denies any chest pain no paroxysmal nocturnal dyspnea or pedal edema. His aspirin and Plavix were discontinued at his previous visit, because he has had significant rectal bleeding from an rather extensive rectal prolapse which has not been amenable to any surgical option. He had an EEG performed today. Past Medical History Allergies/Adverse Reactions: Allergies carisoprodol Allergy (Verified 05/07/20 14:25) Other itraconazole Allergy (Verified 05/07/20 14:25) Other Home Medications: Ambulatory Orders Medication Instructions Recorded Omeprazole [Prilosec] 20 mg PO DAILY 10/07/15 Multivit-Min/FA/Lycopen/Lutein 1 tab PO DAILY 02/14/18 [Centrum Silver Men Tablet] Vitamin E 400 unit PO DAILY 10/29/18 duloxetine 30 mg capsule,delayed 30 mg PO DAILY 03/06/19 release atorvastatin 20 mg tablet 20 mg PO QHS #90 tab 06/10/19 lisinopril 20 mg tablet 20 mg PO DAILY #90 tab 09/30/19 acetaminophen 500 mg tablet 500 mg PO TID tab 01/30/20 Metoprolol(XL)Succ [Toprol Xl 12.5 mg PO DAILY 02/25/20 (Beta Koko)] Potassium Chloride 10 meq PO DAILY 02/25/20 nitroglycerin 0.4 mg sublingual 0.4 mg PO Q5-15M PRN #25 tab 02/25/20 tablet Amlodipine [Norvasc] 10 mg PO DAILY 03/19/20 Orphenadrine [Norflex] 100 mg PO DAILY 03/19/20 Ferrous Gluconate 324 mg PO DAILY 03/23/20 Nut Tx, Lact-Reduced, Iron [Boost 120 ml PO TID 05/07/20 [facility]] Past Medical History (Chronic Problems): Chronic Problems (Last Updated 03/24/20 @ 10:[address] 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) Debility (Chronic) Delayed wound healing (Chronic) PAD (peripheral artery disease) (Chronic) Debility (Chronic) Atherosclerotic heart disease of [place] coronary artery without angina pectoris (Chronic) History of coronary artery stent placement (Chronic 10/07/15) PCI-Stent to mid RCA 08/06/04; cutting balloon angioplasty with TAMERA to mid RCA 02/19; FRY-Hlhha-GVA-of RCA 06/18/09; PCI/TAMERA to Ostial PDA and PCI-ISR RCA 09/03/13; PCI/TAMERA ISR of mid RCA 10/07/15; FFR mid LAD 0.86 10/08/15 Peripheral arterial occlusive disease (Chronic) SFA PTCA/Stent 08/2012; Stent to distal RSFA to popliteal, Stent-Prox RSFA 10/23/13 Essential (primary) hypertension (Chronic) Hyperlipidemia (Chronic) Surgical History: rotator cuff repair, tonsillectomy, - - The patient is undergone lumbar surgery in the past. He has a history of bilateral shoulder surgery. He has had coronary stents placed, and to proceed stenting was performed in the right lower extremity. Psychiatric History: No pertinent psych hx - *Family History Maternal Family History: Family History (Last Reviewed 05/07/20 @ 17:25 by ALONA Rendon) Mother CVA (cerebral vascular accident) Sister Hypertension Sibling Family History: Family History (Last Reviewed 05/07/20 @ 17:25 by ALONA Rendon) Mother CVA (cerebral vascular accident) Sister Hypertension History Items: Hypertension Paternal Family History: Family History (Last Reviewed 05/07/20 @ 17:25 by ALONA Rendon) Mother CVA (cerebral vascular accident) Sister Hypertension History Items: No pertinent history Lives: [facility] Smoking Status: Never smoker Tobacco Use: Non-smoker Alcohol: None Drugs: None Review of Systems - Review of Systems General: Reports: Weakness. Denies: Fever, Fatigue, Night Sweats HEENT: Denies: Vision Change Cardiovascular: Reports: Near Syncope. Denies: Chest Discomfort, Shortness of Breath, Orthopnea, PND, Peripheral Edema, Palpitations, Lightheadedness, Dizziness, Syncope Respiratory: Denies: Cough, Sputum Production, Hemoptysis Gastrointestinal: Denies: Hematemesis, Hematochezia, Melena Genitourinary: Denies: Dysuria, Hematuria Muscoloskeletal: Denies: Myalgias Skin: Denies: Rash Neurological: Reports: Dizziness, Confusion, Falls Psychiatric: Denies: Anxiety Endocrine: Denies: Excessive Sweating Hematologic/ Lymphatic: Reports: Anemia Subjectve: Elderly gentleman in no distress Objective: Vital Signs Temp Pulse Resp BP Pulse Ox 98.4 F 68 18 125/53 H 96 05/08/20 09:58 05/08/20 09:58 05/08/20 09:58 05/08/20 09:58 05/08/20 09:58 Oxygen Flow Rate (L/min) 2 Oxygen Delivery Method Room Air Weight: 126 lb 8.725 oz Body Mass Index (BMI) 18.1 Orthostatic Vital Signs Start: 05/08/20 08:18 Freq: q24h Status: Active Protocol: Activity Type Activity Date Activity User E-Sign Co-Sign Detail Recorded Client Recorded Date Recorded By Document 05/08/20 09:49 AMG [id number] 05/08/20 09:55 AMG 05/08/20 09:49 Orthostatic Vitals Sitting -Blood Pressure (90/60-120/80) 114/60 -Extremity Use Right Arm -Pulse Rate (60-100) 71 Lying -Blood Pressure (90/60-120/80) 115/73 -Extremity Use Right Arm -Pulse Rate (60-100) 75 Intake and Output for Last 24 Hours 05/06/20 05/07/20 05/08/20 23:59 23:59 23:59 Intake Total 1170 / 1170 1780.17 / 1779.17 Balance 1170 / 1170 1780.1779. General: Awake, Alert, Oriented x 3 HEENT: PERRL, EOMI, Sclera Non Icteric, Pallor Neck: Supple, Good ROM, No Lymph Node Enlargement Lungs: Diminished [place] Bases Cardiovascular: Irregular Rhythm, Normal S1, Normal S2, No Murmurs, No Rubs, No Gallops Vascular: No Carotid Bruits, Normal Femoral Pulses, Normal Radial Pulses, Normal Dorsalis Pedal Pulse, Normal Posterior Tibial Pulses Abdomen: Bowel Sounds Present, Soft, Non Tender, No HSM, No Organomegaly Extremities: No Cyanosis, No Clubbing, No edema Musculoskeletal: No Erythema Skin: No Rashes Lymphatic: No Lymph Node Enlargement Neurological: No Focal Motor or Sensory Deficit Psych/Mental Status: Appropriate 05/07/20 14:20: Magnesium 2.2 05/07/20 14:21: WBC 5.5, RBC 3.55 L, Hgb 10.8 L, Hct 34.2 L, MCV 96.3 H, MCH 30.4, MCHC 31.6 L, Plt Count 343, MPV 8.9, Immature Gran % (Auto) 0.500, Neut % (Auto) 62.6, Lymph % (Auto) 27.8, Aurora % (Auto) 8.2, Eos % (Auto) 0.5, Baso % (Auto) 0.4, Absolute Neuts (auto) 3.4, Nucleated RBC % 0 05/07/20 14:21: Sodium 139, Potassium 3.1 L, Chloride 105, Carbon Dioxide 25.0, Anion Gap 9, BUN 25 H, Creatinine 0.90, Est GFR (MDRD) Af Amer 104, Est GFR (MDRD) Non-Af 86, BUN/Creatinine Ratio 27.9 H, Glucose 152 H, Calcium 9.2, Troponin I 0.025 05/07/20 14:21: B-Natriuretic Peptide 73.0 05/07/20 14:35: WBC Cancelled, Corrected WBC Cancelled, RBC Cancelled, Hgb Cancelled, Hct Cancelled, MCV Cancelled, MCH Cancelled, MCHC Cancelled, Plt Count Cancelled, MPV Cancelled, Immature Gran % (Auto) Cancelled, Neut % (Auto) Cancelled, Lymph % (Auto) Cancelled, Aurora % (Auto) Cancelled, Eos % (Auto) Cancelled, Baso % (Auto) Cancelled, Absolute Neuts (auto) Cancelled, Total Counted Cancelled, Neutrophils % (Manual) Cancelled, Band Neutrophils % Cancelled, Lymphocytes % (Manual) Cancelled, Monocytes % (Manual) Cancelled, Eosinophils % (Manual) Cancelled, Basophils % (Manual) Cancelled, Metamyelocytes % Cancelled, Myelocytes % Cancelled, Promyelocytes % Cancelled, Blast Cells % Cancelled, Plasma Cell % (Manual) Cancelled, Other Cells % Cancelled, Nucleated RBC % Cancelled 05/07/20 14:35: PT 12.8, INR 1.0, APTT 23.2 L 05/07/20 14:35: Sodium Cancelled, Potassium Cancelled, Chloride Cancelled, Carbon Dioxide Cancelled, Anion Gap Cancelled, BUN Cancelled, Creatinine Cancelled, Est GFR (MDRD) Af Amer Cancelled, Est GFR (MDRD) Non-Af Cancelled, BUN/Creatinine Ratio Cancelled, Glucose Cancelled, Calcium Cancelled, Total Bilirubin Cancelled 05/07/20 14:35: Lactic Acid 4.4 H* 05/07/20 14:44: Urine Color Yellow, Urine Clarity Sl. Cloudy, Urine pH 7.0, Ur Specific [place] 1.010, Urine Protein 30 H, Urine Glucose (UA) Normal, Urine Ketones Negative, Urine Occult Blood Negative, Urine Nitrite Positive H, Urine Bilirubin Negative, Urine Urobilinogen Normal, Ur Leukocyte Esterase 500 H, Urine RBC 0 SEEN, Urine WBC 25-50 SEEN 05/07/20 19:07: Troponin I 0.032 05/07/20 19:07: Lactic Acid 2.1 H* 05/07/20 21:56: Troponin I 0.030 05/08/20 06:22: WBC 11.2 H, RBC 2.79 L, Hgb 8.4 L, Hct 27.2 L, MCV 97.5 H, MCH 30.1, MCHC 30.9 L, Plt Count 262, MPV 9.6, Immature Gran % (Auto) 0.400, Neut % (Auto) 84.2 H, Lymph % (Auto) 5.3 L, Aurora % (Auto) 9.4, Eos % (Auto) 0.4, Baso % (Auto) 0.3, Absolute Neuts (auto) 9.5 H, Nucleated RBC % 0 05/08/20 06:22: Sodium 142, Potassium 4.0, Chloride 111 H, Carbon Dioxide 27.0, Anion Gap 4 L, BUN 27 H, Creatinine 0.72, Est GFR (MDRD) Af Amer 134, Est GFR (MDRD) Non-Af 110, BUN/Creatinine Ratio 37.6 H, Glucose 114 H, Calcium 8.5, Total Bilirubin 0.20 Rhythm: EKG: Atrial fibrillation with rapid ventricular response rate ECHO: Stress Test: Cardiac Cath: As noted above PCI: CT Surgery: Holter monitor: EPS: PPM: CXR: Chest CT Scan: Assessment/Plan 1. Syncopal/near syncopal event * The above is likely secondary to relative fluid depletion coupled with atrial fibrillation with a rapid ventricular response rate. He has had some fluid resuscitation and his ventricular response rate is under better control. * My recommendation at this time would be to put him on a beta-koko with metoprolol 25 mg twice a day * Reduce his other antihypertensives * He is not a candidate for anticoagulation. We will see how he does * 2. Atrial fibrillation * He presented with atrial fibrillation with a rapid ventricular response rate. His ventricular response rate is under better control at this time I would recommend that we continue him on the beta-koko 25 mg of metoprolol twice a day and depending on the response further recommendations will be made. * He is not a candidate for anticoagulation due to his rectal issues as well as his anemia * His ejection fraction was previously noted to be low normal at 50% * 3. Coronary artery disease * He is status post previous angioplasty of the right coronary artery but a recent cardiac catheterization less than a year ago demonstrated occlusion of this with [id number] collaterals. The left anterior descending artery had mild disease, with diagonal disease in the left circumflex artery had minimal disease. Medical therapy would be continued. * 4. Peripheral vascular disease * He does have significant peripheral vascular disease for which she has undergone numerous angioplasties. At this time he does not appear to have any significant symptomatology and would continue to observe him. * 5. Status post recent COVID-19 * He appears to be fairly stable at this particular time. * * Thank you for allowing me to participate in the care of your patient. Please don't hesitate to call if any issues arise.
--- NOTE | 2020-05-08 14:19 | CASEMGMT ---
MARISOL called patient's , Kassandra. MARISOL asked her if the plan is for patient to return to [facility] at discharge. She said that is the plan. She said their son can probably transport him as long as he is available. He lives in [place]. She said staff should call her if he is being discharged and she will call their son. SW faxed clinicals to [facility]. MARISOL also spoke with Dionne at [facility] and it is fine for patient to return when ready. He should have a COVID within 72 hours of his discharge. Patient had a COVID test today and SW faxed her the results. Green sheet on chart. Plan: d/c back to [facility] at [place] under skilled level of care. Patient's said their son should be able to transport patient back to [facility] as long as he is available. Otherwise transport with [facility] will need to be arranged. Lanny PATEL
--- NOTE | 2020-05-08 15:52 | PCM.NTREPORT ---
Nutrition Therapy Report - History Nutrition Services has been consulted to:: Manage nutrient details of diet order Current diet / nutrition support order:: cardiac - Anthropometric Measurements Height:: 5 ft 10 in Weight:: 57.4 kg Body Mass Index (BMI):: 18.1 - Relevant Labs Relevant Labs:: WBC 11.2 K/mm3 (4.4-11.0) H 05/08/20 06:22 RBC 2.79 M/mm3 (4.6-6.2) L 05/08/20 06:22 Hgb 8.4 g/dL (13.0-16.5) L 05/08/20 06:22 Hct 27.2 % (40-54) L 05/08/20 06:22 MCV 97.5 fL (80-94) H 05/08/20 06:22 MCHC 30.9 g/dL (32-36) L 05/08/20 06:22 RDW Std Deviation 58.4 fl (35.1-43.9) H 05/08/20 06:22 RDW Coeff of Ayesha 16.5 % (11.6-14.6) H 05/08/20 06:22 Neut % (Auto) 84.2 % (47-70) H 05/08/20 06:22 Lymph % (Auto) 5.3 % (19-41) L 05/08/20 06:22 Absolute Neuts (auto) 9.5 X10^3/uL (2.0-7.7) H 05/08/20 06:22 Absolute Lymphs (auto) 0.60 X10^3/uL (0.83-4.51) L 05/08/20 06:22 APTT 23.2 Seconds (24.1-36.2) L 05/07/20 14:35 Potassium 3.1 mmol/L (3.5-5.1) L 05/07/20 14:21 Chloride 111 mmol/L (98-107) H 05/08/20 06:22 Anion Gap 4 (5-15) L 05/08/20 06:22 BUN 27 mg/dL (7-18) H 05/08/20 06:22 BUN/Creatinine Ratio 37.6 RATIO (10-20) H 05/08/20 06:22 Glucose 114 mg/dL (74-106) H 05/08/20 06:22 Lactic Acid 2.1 mmol/L (0.4-1.9) H* 05/07/20 19:07 Total Protein 5.4 g/dL (6.4-8.2) L 05/08/20 06:22 Albumin 2.1 g/dL (3.2-5.0) L 05/08/20 06:22 Albumin/Globulin Ratio 0.6 RATIO (0.9-2.4) L 05/08/20 06:22 Procalcitonin 0.61 ng/mL (0.00-0.09) H 05/07/20 19:07 - Assessment Food / Nutrition-Related History:: Pt unsure of PO intake today. Per kitchen staff, pt refused 2 different meal trays. Confirms chronically poor appetite/intake. Saw outpatient RDN for malnutrition, failure to thrive in 2019. Has been consuming chocolate Boost at home in attempts to gain wt. Reports also getting meals on wheels. Wt on 03/23/20 was 130#, CBW 126.5#-3.5#/2.6% wt loss x ~6.5 weeks, not significant for acute malnutrition. However, currently w/ LLE 1+ pitting, RLE 2+ pitting edema per nursing documentation which may be masking wt loss. NFPA indicates moderate muscle wasting/fat loss in upper extremities, clavicle, temporal region. - Nutrition Diagnosis Problem / Etiology / Signs & Symptoms (PES):: Pt w/ moderate, chronic malnutrition related to inadequate energy intake as evidenced by estimated PO intake meeting less than 75% of estimated needs >1 month, physical evidence of moderate muscle wasting/fat loss in upper extremities, clavicle, temporal region. Evidence of Malnutrition Exists:: Yes Moderate PCM:: Chronic Illness - Nutrition Intervention Nutrition Prescription:: 2800-4109 calories, 60-70 g protein/day for wt gain. - Food / Nutrient Delivery Interventions Summary of nutrition intervention:: Discussed ONS- agreeable to trying chocolate ensure enlive w/ medpass. Will liberalize diet to regular, no added salt d/t malnutrition. Nutrition support ordered as / adjusted to:: regular- no added salt; 120mL ensure enlive 4x/day Nutrition education provided?: Yes - encouraged PO intake of meals/supplements - MNT Monitoring Further MNT monitoring and evaluation required?: Yes MNT Follow-up in:: 3-5 days
[2020-05-08] MEDS: Atorvastatin Calcium 20 MG Tablet PO (21:14)
[2020-05-08] MEDS: Metoprolol Tartrate 25 MG Tablet PO (21:14)
[2020-05-09] VITALS (9 sets, daily range): BP systolic 115–130; BP diastolic 52–70; PULSE 61–85; RESP 15–18; TEMP 36.8–37.4; O2SAT 95–97
[2020-05-09] MEDS: Acetaminophen 500 MG Tablet PO ×2 (05:31→14:55)
[2020-05-09 06:02] LABS: Absolute Lymphocyte Count 0.83 X10^3/uL (0.83-4.51); Absolute Neutrophil Count 6.7 X10^3/uL (2.0-7.7); Basophil# 0.03 X10^3/uL; Basophil% 0.3 % (0-1); Eosinophil# 0.05 X10^3/uL; Eosinophils% 0.6 % (0-5); Hematocrit 25.5 % (40-54); Hemoglobin 7.9 g/dL (13.0-16.5); Lymphocyte # 0.83 X10^3/ul (4.0); Lymphocyte % 9.2 % (19-41); Mean Corpuscular Hgb 29.8 pg (27.0-32.0); Mean Corpuscular Volume 96.2 fL (80-94); Mean Platelet Vol. 9.7 fl (6.2-12.0); Monocyte# 1.39 X10^3/uL; Monocyte% 15.5 % (0-10); NRBC Flagged by Analyzer 0 % (0-5); Neutrophil # 6.66 X10^3/uL (2.7-7.7); Neutrophil % 74.1 % (47-70); Platelet Count 230 K/mm3 (150-450); RBC Distribution Width CV 16.2 % (11.6-14.6); RBC Distribution Width SD 57.5 fl (35.1-43.9); Red Blood Count 2.65 M/mm3 (4.6-6.2)
[2020-05-09 06:26] LABS: Anion Gap 4 (5-15); BUN 21 mg/dL (7-18); BUN/Creat Ratio 29.1 RATIO (10-20); Calcium,Total 8.6 mg/dL (8.5-10.1); Chloride 107 mmol/L (98-107); Creatinine, Serum 0.72 mg/dL (0.70-1.30); EST Glomerular Filtration Rate 110 mL/min (>60); Est Glom Filt Rate - Afr Amer 133 mL/min (>60); Estimated Creatinine Clearance 44.53 ml/min; Glucose 76 mg/dL (74-106); Potassium 3.5 mmol/L (3.5-5.1); Sodium Level 140 mmol/L (136-145)
[2020-05-09] MEDS: Multivitamins,Ther W-Minerals Tablet 1 TABLET PO (09:42)
[2020-05-09] MEDS: DULoxetine Hcl 30 MG Capsule PO (09:43)
[2020-05-09] MEDS: Orphenadrine 100 MG Tablet PO (09:43)
[2020-05-09] MEDS: Metoprolol Tartrate 25 MG Tablet PO (09:43)
[2020-05-09] MEDS: Ferrous Gluconate 324 MG Tablet PO (09:43)
[2020-05-09] MEDS: Pantoprazole Sodium 20 MG Tablet PO (09:44)
[2020-05-09] MEDS: Lisinopril 5 MG Tablet PO (09:44)
[2020-05-09] MEDS: amLODIPine 5 MG Tablet PO (09:44)
[2020-05-09] MEDS: Ceftriaxone 1 GM/50 ML BAG IV (09:49)
[2020-05-09] MEDS: 0.9% Saline Lock 10 ML Syringe IV (09:51)
--- NOTE | 2020-05-09 10:25 | PCM.EXTCARCO ---
- Diet 05/08/20 15:39 Diet: Regular - No Added Salt Is pt able to select menu?: No - Routine Orders/Code Status Suppository Type: Dulcolax 10mg Suppository Frequency: Daily PRN Routine Lab Work: CBC - 5 days, BMP - 3 days Code Status: DNRCC-A - Therapies Physical Therapy: Eval and Treat Occupational Therapy: Eval and Treat - Problem/Diagnosis (1) Atrial fibrillation with RVR Status: Acute (2) UTI (urinary tract infection) Status: Acute (3) Right bundle branch block (RBBB) Status: Chronic (4) PAD (peripheral artery disease) Status: Chronic (5) Essential (primary) hypertension Status: Chronic (6) Hyperlipidemia Status: Chronic - Allergies/Procedures Done in Hospital Allergies/Adverse Reactions: Allergies carisoprodol Allergy (Verified 05/07/20 14:25) Other itraconazole Allergy (Verified 05/07/20 14:25) Other Procedures: None - Type of Care/Length of Stay Estimated LOS: Convalescent Care Less Than 30 days Type of Care Needed: Skilled Rehab Potential: Fair Prognosis: Fair - Additional Orders/Day of Discharge Day of Discharge: 05/09/20 - Dietary and Speech Recommendations Dietitian Recommendations/Changes: Will liberalize diet to regular, no added salt d/t malnutrition. Will add ensure enlive 120mL 4x/day. - Follow Up Care Primary Care Physician: Noe Weeks MD [Primary Care Provider] - Please follow up with your Primary Care Physician in: 1-2 weeks Please Follow Up With: Rosi Tolbert PA - cardiology When: 2 weeks
--- NOTE | 2020-05-09 11:46 | NURSING ---
Animal [employer] in to see patient. Reviewed patient's medical history with RN along with medications. Per Cardiology, patient is not to be on anticoagulants due to history of rectal bleeding.
--- NOTE | 2020-05-09 12:04 | PCM.DC.SUM ---
<Laith Pettit - Last Filed: 05/09/20 12:04> Discharge Date and Diagnosis - Problem List Patient Problems: Active and Suspected Problems (Last Updated 03/24/20 @ 10:[address] Audrey Tolliver MD) Atrial fibrillation with RVR (Acute) UTI (urinary tract infection) (Acute) Date of Admission: 05/07/20 Date of Discharge: 05/09/20 - Primary Discharge Diagnosis Acute Problems: Active Problems (Last Updated 03/24/20 @ 10:[address] Audrey Tolliver MD) Atrial fibrillation with RVR (Acute) Syncope UTI (urinary tract infection) (Acute) - Secondary Discharge Diagnosis Chronic Problems: Chronic Problems (Last Updated 03/24/20 @ 10:[address] 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) Debility (Chronic) Delayed wound healing (Chronic) PAD (peripheral artery disease) (Chronic) Debility (Chronic) Atherosclerotic heart disease of [place] coronary artery without angina pectoris (Chronic) History of coronary artery stent placement (Chronic 10/07/15) PCI-Stent to mid RCA 08/06/04; cutting balloon angioplasty with TAMERA to mid RCA 02/19; [id number]-[id number]-MZZ-of RCA 06/18/09; PCI/TAMERA to Ostial PDA and PCI-ISR RCA 09/03/13; PCI/TAMERA ISR of mid RCA 10/07/15; FFR mid LAD 0.86 10/08/15 Peripheral arterial occlusive disease (Chronic) SFA PTCA/Stent 08/2012; Stent to distal RSFA to popliteal, Stent-Prox RSFA 10/23/13 Essential (primary) hypertension (Chronic) Hyperlipidemia (Chronic) Hospital Course and Treatment Imaging Results: RAD/Chest 1 View (Portable) IMPRESSION: No acute abnormality is seen. EEG: normal waking, drowsing, and sleeping EEG. Operations: None Procedures: Electroencephalogram Summary of Care Provided: Hospital Course: The patient is a 84 year old M with pmhx as above who presented to the ER with c/o syncope. The patient had come to the hospital for a doctors appointment from [facility] and passed out in the entrance area. He was brought to the ER and found to have afib with RVR, hypotension, and a UA c/w UTI. He was given IV fluids and cardizem with good improvement. He was admitted to the PCU. He received cardizem the following morning for recurrent RVR and his beta juan a was increased. Cardizem was stopped and beta juan a was continued. His other BP meds were reduced given his presenting hypotension. Cardiology followed the patient while here and did not recommend anticoagulation as outpatient due to anemia and rectal issues. He was treated for UTI with rocephin. Culture showed E coli susceptible to rocephin and macrobid. He was transitioned to macrobid to complete a total of 7 days of therapy. He was discharged back to SNF in stable condition. He should follow up with his fish and wildlife technician in 2 weeks and his PCP in 1-2 weeks. Also of note, he had an EEG here which did not demonstrate seizure activity. This patient was seen by Laith Pettit PA-C under the supervision of Dr. Goldstein. [] Patient Problems: Active and Suspected Problems (Last Updated 03/24/20 @ 10:[address] Audrey Tolliver MD) Atrial fibrillation with RVR (Acute) UTI (urinary tract infection) (Acute) - Physical Exam Vitals/I&O's: Vital Signs Temp Pulse Resp BP Pulse Ox 98.3 F 85 15 115/55 L 97 05/09/20 09:30 05/09/20 11:36 05/09/20 09:30 05/09/20 09:30 05/09/20 09:30 Oxygen Flow Rate (L/min) 2 Oxygen Delivery Method Room Air Weight: 128 lb 8.472 oz Body Mass Index (BMI) 18.1 Orthostatic Vital Signs Start: 05/08/20 08:18 Freq: q24h Status: Active Protocol: Activity Type Activity Date Activity User E-Sign Co-Sign Detail Recorded Client Recorded Date Recorded By Document 05/09/20 05:32 TM [id number] 05/09/20 05:34 TM 05/09/20 05:32 Orthostatic Vitals Sitting -Blood Pressure (90/60-120/80) 115/56 L -Extremity Use Left Arm -Pulse Rate (60-100) 64 Lying -Blood Pressure (90/60-120/80) 115/54 L -Extremity Use Left Arm -Pulse Rate (60-100) 65 Intake and Output for Last 24 Hours 05/07/20 05/08/20 05/09/20 23:59 23:59 23:59 Intake Total 1170 / 1170 2550.17 / 2750.17 260 / 260 Balance 1170 / 1170 2550.17 / 2750.17 260 / 260 General: Alert, Oriented x3, Cooperative HEENT: Atraumatic, PERRLA, EOMI, Normocephalic Neck: Supple, No JVD, Negative Carotid Bruits Lungs: Clear to auscultation, Normal air movement Cardiovascular: Regular rate, No murmurs Abdomen: Bowel Sounds Present, Soft, Non Tender Extremities: No edema, Capillary Refill Less than 3 Seconds Skin: No rashes, No breakdown Musculoskeletal: No Tenderness to Palpation of Joints or Extremities Neurological: Cranial nerves II-XII grossly intact Psych/Mental Status: Normal Affect, Appropriate Microbiology Past 72 Hours 05/07/20 14:35 Blood Culture (Wb) - Anticubital Left Blood Culture - Preliminary No growth in 48 hours. 05/07/20 15:11 Blood Culture (Wb) - Anticubital Right Blood Culture - Preliminary No growth in 48 hours. 05/07/20 Unknown Urine, Catheterized Urine Culture - Final Presumptive E. coli 05/07/20 14:44 Urine, Clean Catch Urine Culture - Final Presumptive E. coli 05/08/20 11:10 Mucosa - Nasopharyngeal SARS-CoV-2 Antigen (Rapid) - Final Laboratory Results 05/09/20 05:21: WBC 9.0, RBC 2.65 L, Hgb 7.9 L, Hct 25.5 L, MCV 96.2 H, MCH 29.8, MCHC 31.0 L, RDW Std Deviation 57.5 H, RDW Coeff of Ayesha 16.2 H, Plt Count 230, MPV 9.7, Immature Gran % (Auto) 0.300, Neut % (Auto) 74.1 H, Lymph % (Auto) 9.2 L, [place] % (Auto) 15.5 H, Eos % (Auto) 0.6, Baso % (Auto) 0.3, Absolute Neuts (auto) 6.7, Absolute Lymphs (auto) 0.83, Nucleated RBC % 0 05/09/20 05:21: Sodium 140, Potassium 3.5, Chloride 107, Carbon Dioxide 29.0, Anion Gap 4 L, BUN 21 H, Creatinine 0.72, Estim Creat Clear Calc 44.53, Est GFR (MDRD) Af Amer 133, Est GFR (MDRD) Non-Af 110, BUN/Creatinine Ratio 29.1 H, Glucose 76, Calcium 8.6 Current Medications Acetaminophen (Acetaminophen 500 Mg Tablet) 500 mg PO TID [facility] Last Admin: 05/09/20 05:31 Dose: 500 mg Documented by: Al Hydroxide/Mg Hydroxide (Mag Hydrox/Al Hydrox/Simeth 30 Ml Udc) 30 ml PO Q6H PRN PRN PRN Reason: Gastric Burning Amlodipine Besylate (Amlodipine 5 Mg Tablet) 5 mg PO DAILY [facility] Last Admin: 05/09/20 09:44 Dose: 5 mg Documented by: Atorvastatin Calcium (Atorvastatin Calcium 20 Mg Tablet) 20 mg PO QHS [facility] Last Admin: 05/08/20 21:14 Dose: 20 mg Documented by: Duloxetine HCl (Duloxetine Hcl 30 Mg Capsule) 30 mg PO DAILY [facility] Last Admin: 05/09/20 09:43 Dose: 30 mg Documented by: Ferrous Gluconate (Ferrous Gluconate 324 Mg Tablet) 324 mg PO DAILY [facility] Last Admin: 05/09/20 09:43 Dose: 324 mg Documented by: Ceftriaxone Sodium (Rocephin) 1 gm in 50 mls @ 100 mls/hr IV Q24 [facility] Last Admin: 05/09/20 09:49 Dose: 100 mls/hr Documented by: Lisinopril (Lisinopril 5 Mg Tablet) 5 mg PO DAILY [facility] Last Admin: 05/09/20 09:44 Dose: 5 mg Documented by: Metoprolol Tartrate (Metoprolol Tartrate 25 Mg Tablet) 25 mg PO BID [facility] Last Admin: 05/09/20 09:43 Dose: 25 mg Documented by: Morphine Sulfate (Morphine 2 Mg/Ml Syringe) 2 mg IV Q3H PRN PRN PRN Reason: Pain Score 6-10 Multivitamins/Minerals (Multivitamins,Ther W-Minerals Tablet) 1 tablet PO DAILYCM [facility] Last Admin: 05/09/20 09:42 Dose: 1 tablet Documented by: Nitroglycerin (Nitroglycerin (Inpatient Use) 0.4 Mg Tab.Subl) 0.4 mg SUBLINGUAL Q5M PRN PRN Reason: CARDIAC/CHEST PAIN Nutritional Formula (Lactose Free) (Ensure Enlive 120 Ml Liquid) 120 ml PO 4X/DAY [facility] Last Admin: 05/09/20 09:47 Dose: 120 ml Documented by: Orphenadrine Citrate (Orphenadrine 100 Mg Tablet) 100 mg PO DAILY [facility] Last Admin: 05/09/20 09:43 Dose: 100 mg Documented by: Pantoprazole Sodium (Pantoprazole Sodium 20 Mg Tablet) 20 mg PO DAILY [facility] Last Admin: 05/09/20 09:44 Dose: 20 mg Documented by: Senna/Docusate Sodium (Senna/Docusate Sodium 1 Tablet) 2 tablet PO BID PRN PRN PRN Reason: Constipation Sodium Chloride (0.9% Saline Lock 10 Ml Syringe) 10 - 40 ml IV UD PRN PRN Reason: SALINE FLUSH Last Admin: 05/09/20 09:51 Dose: 10 ml Documented by: Discharge Diet: Low fat/ Low Cholesterol, 2000 mg Sodium Diet Discharge Activity: Return to Normal Activity Home Medications: Medications to take at Discharge Omeprazole [Prilosec] 20 mg PO DAILY 10/07/15 Multivit-Min/FA/Lycopen/Lutein [Centrum Silver Men Tablet] 1 tab PO DAILY 02/14/18 Vitamin E 400 unit PO DAILY 10/29/18 duloxetine 30 mg capsule,delayed release 30 mg PO DAILY 03/06/19 atorvastatin 20 mg tablet 20 mg PO QHS #90 tab 06/10/19 acetaminophen 500 mg tablet 500 mg PO TID tab 01/30/20 Potassium Chloride 10 meq PO DAILY 02/25/20 nitroglycerin 0.4 mg sublingual tablet 0.4 mg PO Q5-15M PRN #25 tab 02/25/20 Orphenadrine [Norflex] 100 mg PO DAILY 03/19/20 Ferrous Gluconate 324 mg PO DAILY 03/23/20 Amlodipine [Norvasc] 5 mg PO DAILY #0 tab 05/09/20 Ensure Enlive 120 ml PO 4X/DAY liquid 05/09/20 Lisinopril [Zestril] 5 mg PO DAILY #0 tab 05/09/20 Metoprolol Tartrate [Lopressor (beta juan a)] 25 mg PO BID tab 05/09/20 Nitrofurantoin Monohyd/M-Cryst [Macrobid 100 mg Capsule] 100 mg PO BID #10 cap 05/09/20 Following Prescriptions Were Given to Patient: Nitrofurantoin Monohyd/M-Cryst [Macrobid 100 mg Capsule] 100 mg PO BID #10 cap Primary Care Physician: Noe Weeks MD [Primary Care Provider] - Please follow up with your Primary Care Physician in: 1-2 weeks Please Follow Up With: Rosi Tolbert PA - cardiology When: 2 weeks Disposition: Shelter facility Minutes spent on discharge:: 35 Patient Condition:: Stable Medical Necessity - Tobacco Use Smoking Status: Never smoker Tobacco Use: Non-smoker Meaningful Use Info Meaningful Use Diagnoses (Choose all that apply): None applicable <Mark Goldstein - Last Filed: 05/09/20 12:52> Discharge Date and Diagnosis - Primary Discharge Diagnosis Acute Problems: Active Problems (Last Updated 03/24/20 @ 10:[address] Audrey Tolliver MD) Atrial fibrillation with RVR (Acute) UTI (urinary tract infection) (Acute) - Secondary Discharge Diagnosis Chronic Problems: Chronic Problems (Last Updated 03/24/20 @ 10:[address] 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) Debility (Chronic) Delayed wound healing (Chronic) PAD (peripheral artery disease) (Chronic) Debility (Chronic) Atherosclerotic heart disease of [place] coronary artery without angina pectoris (Chronic) History of coronary artery stent placement (Chronic 10/07/15) PCI-Stent to mid RCA 08/06/04; cutting balloon angioplasty with TAMERA to mid RCA 02/19; [id number]-of RCA 06/18/09; PCI/TAMERA to Ostial PDA and PCI-ISR RCA 09/03/13; PCI/TAMERA ISR of mid RCA 10/07/15; FFR mid LAD 0.86 10/08/15 Peripheral arterial occlusive disease (Chronic) SFA PTCA/Stent 08/2012; Stent to distal RSFA to popliteal, Stent-Prox RSFA 10/23/13 Essential (primary) hypertension (Chronic) Hyperlipidemia (Chronic) Hospital Course and Treatment Operations: None Procedures: Electroencephalogram Summary of Care Provided: Patient seen and examined independently. Data reviewed. I agree with the above note by the physician assistant professor of sociology. The patient is a 84 year old M had an outpatient appointment with neurology and was dropped off in the hospital by his . A rapid response team was called as the patient was unresponsive. Patient was found to be tachycardic and then transferred to the emergency room. Patient was found to be in atrial fibrillation with RVR. Patient did receive diltiazem and did become rate controlled. Patient did eventually resume consciousness. Likely due to a vasovagal episode due to the atrial fibrillation with RVR but also patient also did have a urinary tract infection. Patient did well with metoprolol tartrate 25 twice daily. Patient was deemed not a candidate for anticoagulation given history of anemia and bleeding issues, least at this time. Patient be discharged back to a group home facility in stable condition. [] - Physical Exam Vitals/I&O's: Vital Signs Temp Pulse Resp BP Pulse Ox 36.8 C 85 15 115/55 L 97 05/09/20 09:30 05/09/20 11:36 05/09/20 09:30 05/09/20 09:30 05/09/20 09:30 Oxygen Flow Rate (L/min) 2 Oxygen Delivery Method Room Air Weight: 58.3 kg Body Mass Index (BMI) 18.1 Orthostatic Vital Signs Start: 05/08/20 08:18 Freq: q24h Status: Active Protocol: Activity Type Activity Date Activity User E-Sign Co-Sign Detail Recorded Client Recorded Date Recorded By Document 05/09/20 05:32 [id number] 05/09/20 05:34 TM 05/09/20 05:32 Orthostatic Vitals Sitting -Blood Pressure (90/60-120/80) 115/56 L -Extremity Use Left Arm -Pulse Rate (60-100) 64 Lying -Blood Pressure (90/60-120/80) 115/54 L -Extremity Use Left Arm -Pulse Rate (60-100) 65 Intake and Output for Last 24 Hours 05/07/20 05/08/20 05/09/20 23:59 23:59 23:59 Intake Total 1170 / 1170 2550.17 / 2750.17 260 / 260 Balance 1170 / 1170 2550.17 / 2750.17 260 / 260 General: Alert, Cooperative HEENT: Atraumatic, Normocephalic Neck: Supple, No JVD, Negative Carotid Bruits Lungs: Clear to auscultation, Normal air movement Cardiovascular: Regular rate, No murmurs Abdomen: Bowel Sounds Present, Soft, Non Tender, Non-Distended Extremities: No edema, No Calf Tenderness Microbiology Past 72 Hours 05/07/20 14:35 Blood Culture (Wb) - Anticubital Left Blood Culture - Preliminary No growth in 48 hours. 05/07/20 15:11 Blood Culture (Wb) - Anticubital Right Blood Culture - Preliminary No growth in 48 hours. 05/07/20 Unknown Urine, Catheterized Urine Culture - Final Presumptive E. coli 05/07/20 14:44 Urine, Clean Catch Urine Culture - Final Presumptive E. coli 05/08/20 11:10 Mucosa - Nasopharyngeal SARS-CoV-2 Antigen (Rapid) - Final Laboratory Results 05/09/20 05:21: WBC 9.0, RBC 2.65 L, Hgb 7.9 L, Hct 25.5 L, MCV 96.2 H, MCH 29.8, MCHC 31.0 L, RDW Std Deviation 57.5 H, RDW Coeff of Ayesha 16.2 H, Plt Count 230, MPV 9.7, Immature Gran % (Auto) 0.300, Neut % (Auto) 74.1 H, Lymph % (Auto) 9.2 L, [place] % (Auto) 15.5 H, Eos % (Auto) 0.6, Baso % (Auto) 0.3, Absolute Neuts (auto) 6.7, Absolute Lymphs (auto) 0.83, Nucleated RBC % 0 05/09/20 05:21: Sodium 140, Potassium 3.5, Chloride 107, Carbon Dioxide 29.0, Anion Gap 4 L, BUN 21 H, Creatinine 0.72, Estim Creat Clear Calc 44.53, Est GFR (MDRD) Af Amer 133, Est GFR (MDRD) Non-Af 110, BUN/Creatinine Ratio 29.1 H, Glucose 76, Calcium 8.6 Current Medications Acetaminophen (Acetaminophen 500 Mg Tablet) 500 mg PO TID [facility] Last Admin: 05/09/20 05:31 Dose: 500 mg Documented by: Al Hydroxide/Mg Hydroxide (Mag Hydrox/Al Hydrox/Simeth 30 Ml Udc) 30 ml PO Q6H PRN PRN PRN Reason: Gastric Burning Amlodipine Besylate (Amlodipine 5 Mg Tablet) 5 mg PO DAILY [facility] Last Admin: 05/09/20 09:44 Dose: 5 mg Documented by: Atorvastatin Calcium (Atorvastatin Calcium 20 Mg Tablet) 20 mg PO QHS [facility] Last Admin: 05/08/20 21:14 Dose: 20 mg Documented by: Duloxetine HCl (Duloxetine Hcl 30 Mg Capsule) 30 mg PO DAILY [facility] Last Admin: 05/09/20 09:43 Dose: 30 mg Documented by: Ferrous Gluconate (Ferrous Gluconate 324 Mg Tablet) 324 mg PO DAILY [facility] Last Admin: 05/09/20 09:43 Dose: 324 mg Documented by: Ceftriaxone Sodium (Rocephin) 1 gm in 50 mls @ 100 mls/hr IV Q24 [facility] Last Admin: 05/09/20 09:49 Dose: 100 mls/hr Documented by: Lisinopril (Lisinopril 5 Mg Tablet) 5 mg PO DAILY [facility] Last Admin: 05/09/20 09:44 Dose: 5 mg Documented by: Metoprolol Tartrate (Metoprolol Tartrate 25 Mg Tablet) 25 mg PO BID [facility] Last Admin: 05/09/20 09:43 Dose: 25 mg Documented by: Morphine Sulfate (Morphine 2 Mg/Ml Syringe) 2 mg IV Q3H PRN PRN PRN Reason: Pain Score 6-10 Multivitamins/Minerals (Multivitamins,Ther W-Minerals Tablet) 1 tablet PO DAILYCM [facility] Last Admin: 05/09/20 09:42 Dose: 1 tablet Documented by: Nitroglycerin (Nitroglycerin (Inpatient Use) 0.4 Mg Tab.Subl) 0.4 mg SUBLINGUAL Q5M PRN PRN Reason: CARDIAC/CHEST PAIN Nutritional Formula (Lactose Free) (Ensure Enlive 120 Ml Liquid) 120 ml PO 4X/DAY [facility] Last Admin: 05/09/20 09:47 Dose: 120 ml Documented by: Orphenadrine Citrate (Orphenadrine 100 Mg Tablet) 100 mg PO DAILY [facility] Last Admin: 05/09/20 09:43 Dose: 100 mg Documented by: Pantoprazole Sodium (Pantoprazole Sodium 20 Mg Tablet) 20 mg PO DAILY [facility] Last Admin: 05/09/20 09:44 Dose: 20 mg Documented by: Senna/Docusate Sodium (Senna/Docusate Sodium 1 Tablet) 2 tablet PO BID PRN PRN PRN Reason: Constipation Sodium Chloride (0.9% Saline Lock 10 Ml Syringe) 10 - 40 ml IV UD PRN PRN Reason: SALINE FLUSH Last Admin: 05/09/20 09:51 Dose: 10 ml Documented by: Discharge Diet: Low fat/ Low Cholesterol, 2000 mg Sodium Diet Discharge Activity: Return to Normal Activity Disposition: Shelter facility Minutes spent on discharge:: 35 Patient Condition:: Stable Medical Necessity - Tobacco Use Smoking Status: Never smoker Tobacco Use: Non-smoker Meaningful Use Info Meaningful Use Diagnoses (Choose all that apply): None applicable Inpatient E&M: 65086 Disch Hosp
--- NOTE | 2020-05-09 12:08 | PN.CARD_ITS ---
Objective: Vital Signs Temp Pulse Resp BP Pulse Ox 98.3 F 85 15 115/55 L 97 05/09/20 09:30 05/09/20 11:36 05/09/20 09:30 05/09/20 09:30 05/09/20 09:30 Oxygen Flow Rate (L/min) 2 Oxygen Delivery Method Room Air Weight: 128 lb 8.472 oz Body Mass Index (BMI) 18.1 Orthostatic Vital Signs Start: 05/08/20 08:18 Freq: q24h Status: Active Protocol: Activity Type Activity Date Activity User E-Sign Co-Sign Detail Recorded Client Recorded Date Recorded By Document 05/09/20 05:32 TM [id number] 05/09/20 05:34 TM 05/09/20 05:32 Orthostatic Vitals Sitting -Blood Pressure (90/60-120/80) 115/56 L -Extremity Use Left Arm -Pulse Rate (60-100) 64 Lying -Blood Pressure (90/60-120/80) 115/54 L -Extremity Use Left Arm -Pulse Rate (60-100) 65 Intake and Output for Last 24 Hours 05/07/20 05/08/20 05/09/20 23:59 23:59 23:59 Intake Total 1170 / 1170 2550.17 / 2750.17 260 / 260 Balance 1170 / 1170 2550.17 / 2750.17 260 / 260 General: Awake, Alert, Oriented x 3 HEENT: PERRL, EOMI, Sclera Non Icteric Neck: Supple, Good ROM, No Lymph Node Enlargement Lungs: Clear to auscultation Cardiovascular: Regular Rhythm, Normal S1, Normal S2, No Murmurs, No Rubs, No Gallops Vascular: No Carotid Bruits, Normal Femoral Pulses, Normal Radial Pulses, Normal Dorsalis Pedal Pulse, Normal Posterior Tibial Pulses Extremities: No Cyanosis, No Clubbing, No edema 05/09/20 05:21: WBC 9.0, RBC 2.65 L, Hgb 7.9 L, Hct 25.5 L, MCV 96.2 H, MCH 29.8, MCHC 31.0 L, Plt Count 230, MPV 9.7, Immature Gran % (Auto) 0.300, Neut % (Auto) 74.1 H, Lymph % (Auto) 9.2 L, [place] % (Auto) 15.5 H, Eos % (Auto) 0.6, Baso % (Auto) 0.3, Absolute Neuts (auto) 6.7, Nucleated RBC % 0 05/09/20 05:21: Sodium 140, Potassium 3.5, Chloride 107, Carbon Dioxide 29.0, Anion Gap 4 L, BUN 21 H, Creatinine 0.72, Est GFR (MDRD) Af Amer 133, Est GFR (MDRD) Non-Af 110, BUN/Creatinine Ratio 29.1 H, Glucose 76, Calcium 8.6 Rhythm: Review of cardiac telemetry showed underlying rhythm is sinus rhythm. Medical Necessity - Tobacco Use Smoking Status: Never smoker Tobacco Use: Non-smoker Assessment/Plan 84-year-old patient This patient seen and evaluated today at bedside and discuss cardiac care plan with the nursing staff Evidently he was found unresponsive and brought to hospital where he had episode of A. fib with RVR. Patient has a history of rectal bleed and medication with Plavix and aspirin have been discontinued cardiac telemetry showed underlying normal sinus with PACs Currently he is on beta-juan a metoprolol, calcium channel juan a Norvasc and low-dose Zestril. Due to history of rectal bleed he is not a candidate for anticoagulation. And also he had no evidence of orthostatic hypotension Patient is sitting out in a chair comfortable does not have any symptoms to report. And plan [facility]. Also noted patient had a recent Covid which was positive. From cardiac standpoint recommendation would be to follow-up in the cardiology clinic with his primary public health clinical nurse specialist The need on evaluation for anticoagulation can be discussed as an outpatient due to the history of rectal bleed. Risk assessment.
--- NOTE | 2020-05-09 15:35 | NURSING ---
Attempted to call report to a nurse at [facility]. No answer. Message left for a nurse to return call to [phone] for report.
== END 2020-05-09 16:50 | disposition skilled nursing facility (03) | DRG 309 ==
LOC: ED 14:59 → PCU 16:49
PROVIDERS: Physician Assistant; Admitting Provider Internal Medicine; Emergency Provider Emergency Medicine; PCP Family Medicine
DX: I48.91 Unspecified atrial fibrillation (principal); E87.2 Acidosis; L97.922 Non-pressure chronic ulcer of unspecified part of left lower leg with fat layer exposed; N39.0 Urinary tract infection, site not specified; I10 Essential (primary) hypertension; E11.51 Type 2 diabetes mellitus with diabetic peripheral angiopathy without gangrene; I45.10 Unspecified right bundle-branch block; Z66 Do not resuscitate; E78.5 Hyperlipidemia, unspecified; E87.6 Hypokalemia; R09.02 Hypoxemia; I25.10 Atherosclerotic heart disease of native coronary artery without angina pectoris; D53.9 Nutritional anemia, unspecified; B96.20 Unspecified Escherichia coli [E. coli] as the cause of diseases classified elsewhere; L97.512 Non-pressure chronic ulcer of other part of right foot with fat layer exposed; Z95.5 Presence of coronary angioplasty implant and graft; Z86.16 Personal history of COVID-19; Z82.3 Family history of stroke; Z82.49 Family history of ischemic heart disease and other diseases of the circulatory system; Z85.46 Personal history of malignant neoplasm of prostate; Z90.79 Acquired absence of other genital organ(s); G89.29 Other chronic pain; M54.9 Dorsalgia, unspecified
CPT/HCPCS: 36415; 71045; 80048; 80053; 81001; 82962; 83605; 83735; 83880; 84145; 84484; 85025; 85610; 85730; 87040; 87086; 87088; 87186; 87426; 93005; 94762; 95819; 97162; 97166; 97530; 97802; 99251; 99285; J7030; J7040; A4216; G0463

== ENCOUNTER 2020-07-18 12:50 | Emergency (ER) | payer MEDICARE, OTHER, SELFPAY ==
[2020-07-18 12:51] VITALS: BP 138/93; PULSE 118; RESP 16; TEMP 36.4; O2SAT 96; BMI 18.1; BMI 22.8
--- NOTE | 2020-07-18 13:15 | ED.VIS.GEN ---
History of Present Illness Chief Complaint: Male Pain/Injury Informant: Patient Narrative: Patient is an 84-year-old male who presents to the emergency department from care home for rectal prolapse. Patient states that he has had this rectal prolapse for many years. He denies any significant change with that. Apparently the nursing staff was not sure how to handle it so the symptoms to the emergency department. Patient denies any change in moving his bowels. No significant rectal pain passes baseline. Nu[place] any abdominal pain. No fevers or chills. He denies any rectal bleeding. He has no other complaints past his normal baseline symptoms. He does have a mild chronic cough. There is nonproductive. He feels like he has a dry mouth. No chest pain or shortness of breath. Past Medical History - Allergies and Home Meds Allergies/Adverse Reactions: Allergies latex Allergy (Unknown, Verified 06/10/20 13:23) unknown carisoprodol Allergy (Verified 06/10/20 13:23) Other itraconazole Allergy (Verified 06/10/20 13:23) Other Primary Care Physician: Noe Weeks MD [Primary Care Provider] - As Needed Prior records reviewed: Yes Surgical History: rotator cuff repair, tonsillectomy, - Smoking Status: Never smoker Review of Systems All systems negative except as indicated General: Denies: Chills, Fever, Sweats Eyes: Denies: Visual changes - bilaterally, Diplopia ENT: Denies: Rhinorrhea, Sore throat Cardiovascular: Denies: Chest pain, Palpitations Respiratory: Reports: Cough. Denies: Dyspnea, Dyspnea on exertion Gastrointestinal: Denies: Abdominal pain, Nausea, Vomiting, Diarrhea, Hematochezia Genitourinary: Denies: Dysuria, Hematuria, Frequency Musculoskeletal: Denies: Back pain, Extremity Pain Skin: Denies: Rash, Wounds Neurological: Denies: Headache, Weakness, Numbness Physical Exam Vital Signs/Narrative: Vital Signs Temp Pulse Resp BP Pulse Ox 07/18/20 12:51 97.6 F L 118 H 16 138/93 H 96 Inital Vital Signs reviewed: Yes General: Well nourished, Well developed, No Acute Distress Head: Normocephalic, Atraumatic Eyes: Perrl, EOMI ENT: Moist mucous membranes, No rhinorrhea Neck: Supple, Nontender Cardiovascular: Regular rate, Regular rhythm, No murmurs Respiratory: No distress, CTA bilaterally, Chest nontender Abdomen: Soft, Nontender, Nondistended, Normal bowel sounds Rectal: - - No rectal prolapse present on my physical exam. No fissures. No abscess. Normal appearance. Back: Nontender, Normal Inspection Extremities: Nontender, No edema Skin: Normal color, No rash Neurological: Alert, Cranial nerves II-XII grossly intact, Normal Strength, Normal Sensation Psychological: Normal affect, Normal Mood Diagnostic/Tx/Re-eval - Medical Decision Making Patient presents to the ED for rectal prolapse that has been present chronically. My physical exam is has actually resolved. Upon arrival to the ED is mildly tachycardic but on my physical exam his heart rate has returned to normal. He has a benign physical exam. No other complaints. At this time will discharge home in stable condition. I recommend he talk to his PCP about colorectal surgery if it causes any pain or discomfort. Patient states he has been dealing with it regularly with no issues. This time will discharge back to care home. Return precautions are reviewed. All questions answered. ED Disposition - Plan for ED Patient: Disposition: Home or Assisted Living Diagnosis: Rectal prolapse Instructions: ED Rectal Prolapse Referrals: Noe Weeks MD [Primary Care Provider] - As Needed
--- NOTE | 2020-07-18 13:28 | ED.RN ---
Pt assessment with physician had no prolapse. Pt had no other complaints.
== END 2020-07-18 14:04 | disposition home or self-care (01) ==
PROVIDERS: Emergency Provider Emergency Medicine; PCP Family Medicine
DX: K62.3 Rectal prolapse (principal); R05 Cough; Z88.3 Allergy status to other anti-infective agents; Z91.040 Latex allergy status
CPT/HCPCS: 99284

== ENCOUNTER 2020-08-26 18:01 | Inpatient (IN) | payer MEDICARE, OTHER, SELFPAY ==
[2020-08-26] VITALS (8 sets, daily range): BP systolic 143–163; BP diastolic 62–100; PULSE 102–151; RESP 18–23; TEMP 37–37.2; O2SAT 89–96; BMI 22.3; BMI 23.8; BMI 24.0
--- NOTE | 2020-08-26 18:23 | EKG12_ITS ---
Test Reason : SOB Blood Pressure : / mmHG Vent. Rate : 148 BPM Atrial Rate : 144 BPM P-R Int : 000 ms QRS Dur : 124 ms QT Int : 332 ms P-R-T Axes : 000 093 020 degrees QTc Int : 521 ms Atrial fibrillation with rapid ventricular response Right bundle branch block Abnormal ECG Confirmed by ALYSIA MONTES, MARIELLA ([id number]), associate editor REHAN GASPAR ([id number]) on 09/02/2020 10:26:01 AM Referred By: RACHEL Confirmed By:MARIELLA HATFIELD MD
--- NOTE | 2020-08-26 18:24 | EDS_ITS ---
HPI History of Present Illness Chief Complaint: Palpitations Informant: patient Onset/Context/Timing Onset: Today Activity at onset: sudden Timing: Continuous Quality: Positive for - (Palpitations and heart racing) Location: Substernal Worsened By: Nothing Relieved By: Nothing Associated Symptoms: Positive for Lightheadedness and Palpitations; Negative for Nausea, Vomiting, Diaphoresis, Dyspnea, Cough, Fever and Acid Reflux Narrative Narrative: Patient presents with palpitations that began today. Patient felt like his heart was racing. Patient admits to some lightheadedness. Patient states she was having some pain in his chest earlier but it is resolved. Patient denies any shortness of breath. Patient denies any cough. Patient states his mouth feels somewhat dry. Patient also admits to some urinary incontinence. CVD Risk Factors: Positive for Hypertension and Hypercholesterolemia; Negative for Diabetes, Family History 1' </=55 and Smoking PE Risk Factors: Negative for Recent Travel/Surgery, Recent Immobilization, Prior DVT or PE and Cancer [facility] Medical History (Updated 08/26/20 @ 21:03 by Tiffany Merchant NP-C) Acute diarrheal illness Acute kidney injury Atherosclerotic heart disease of [place] coronary artery without angina pectoris Atrial fibrillation with RVR (05/28/20) Chronic pain of right heel Chronic pain of right heel DDD (degenerative disc disease) Debility Delayed wound healing Essential (primary) hypertension GERD (gastroesophageal reflux disease) History of non-ST elevation myocardial infarction (NSTEMI) (07/02/19) History of non-ST elevation myocardial infarction (NSTEMI) (07/02/19) Hyperlipidemia Lumbar stenosis Neuropathy Non-healing ulcer of right foot with fat layer exposed Nonhealing ulcer of left lower extremity with fat layer exposed Obstructive sleep apnea Open wound of finger of left hand PAD (peripheral artery disease) Peripheral arterial occlusive disease Peripheral neuropathy Peripheral neuropathy Pneumonia due to COVID-19 virus (03/23/20) Prostate cancer Rectal prolapse Rectal prolapse Retinopathy due to secondary diabetes Right bundle branch block (RBBB) Septic shock Spondylolisthesis Ulcer of right heel Ulcer of right lower extremity with fat layer exposed Urinary incontinence UTI (urinary tract infection) Home Medications omeprazole 20 mg PO DAILY 10/07/15 [History Last Taken 08/26/20] ykpahpbj-vao-MB-lycopen-lutein 1 tab PO DAILY 02/14/18 [History Last Taken 08/26/20] vitamin E 400 unit PO DAILY 10/29/18 [History Last Taken 08/26/20] duloxetine 30 mg capsule,delayed release 30 mg PO DAILY 03/06/19 [History Last Taken 08/26/20] atorvastatin 20 mg tablet 20 mg PO QHS #90 tab 06/10/19 [Rx Last Taken 08/25/20] acetaminophen 500 mg tablet 500 mg PO TID tab 01/30/20 [History Last Taken 08/26/20] potassium chloride 20 meq PO BID 02/25/20 [History Last Taken 08/26/20] ferrous gluconate 324 mg PO DAILY 03/23/20 [History Last Taken 08/26/20] isosorbide mononitrate 30 mg tablet,extended release 24 hr 30 mg PO DAILY 05/28/20 [History Last Taken 08/26/20] metoprolol tartrate 50 mg tablet 50 mg PO BID 05/28/20 [History Last Taken 08/26/20] furosemide 40 mg tablet 40 mg PO DAILY tablet 08/10/20 [History Last Taken 08/26/20] donepezil 5 mg PO QHS 08/26/20 [History Last Taken 08/25/20] lisinopril 5 mg PO DAILY 08/26/20 [History Last Taken 08/26/20] nut tx, lact-reduced, iron [Boost [facility]] 120 ea PO TID 08/26/20 [History Last Taken 08/26/20] polyethylene glycol 3350 17 g PO DAILY 08/26/20 [History Last Taken 08/26/20] Allergy/AdvReac Type Severity Reaction Status Date / Time latex Allergy Unknown unknown Verified 08/26/20 18:06 carisoprodol Allergy Other Verified 08/26/20 18:06 itraconazole Allergy Other Verified 08/26/20 18:06 Family History Mother CVA (cerebral vascular accident) Sister Hypertension Surgical History History of angioplasty of peripheral vessel (10/23/13) History of back surgery History of coronary artery stent placement (10/07/15) History of hernia repair History of left heart catheterization (07/02/19) History of prostatectomy History of shoulder surgery History of tonsillectomy Social History housing: retirement Smoking Status: Never smoker alcohol intake: former details: 1 glass of red wine x3 days a week substance use type: does not use caffeine: No what type of physical activity do you participate in: none seatbelt use: always do you feel safe at home: Yes ROS ROS ED Constitutional Constitutional ED: Denies chills or fever(s) Eyes Eyes: Denies blurry vision or change in vision ENT ENT ED: Reports rhinorrhea; Denies sore throat Cardiovascular Cardiovascular: Reports as per HPI, chest pain and palpitations Respiratory/Chest Respiratory/Chest: Denies cough or dyspnea Gastrointestinal Gastrointestinal: Denies nausea or vomiting Genitourinary Genitourinary ED: Denies dysuria or hematuria Musculoskeletal Musculoskeletal: Denies back pain or neck pain Integumentary Denies abscess or rash Neurologic Neurologic: Reports weakness Allergic/Immunologic Allergic/Immunologic ED: Denies mouth swelling or urticaria EXAM Physical Exam Const Vital Signs: 08/26/20 18:02 08/26/20 18:31 08/26/20 19:33 Temperature 98.9 F Temperature Source Oral Pulse Rate 130 H 110 H Respiratory Rate 23 H 23 H Blood Pressure 163/100 H 145/81 H Blood Pressure Mean 121 102 Pulse Ox 89 96 Oxygen Delivery Method Room Air Nasal Cannula Room Air Oxygen Flow Rate (L/min) 08/26/20 20:53 Temperature Temperature Source Pulse Rate 102 H Respiratory Rate 22 H Blood Pressure 146/62 H Blood Pressure Mean 90 Pulse Ox 94 Oxygen Delivery Method Room Air Oxygen Flow Rate (L/min) 2 Positive well nourished and well developed General Appearance ED: well developed HEENT Reports dry mucous membranes normocephalic Mouth ED: Yes dry mucous membranes Mouth: dry mucous membranes Neck supple and no JVD Resp normal respiratory effort and clear to auscultation bilaterally Effort and Inspection: respiratory distress Cardio Rate: tachycardic and other Other Details: Irregularly irregular and tachycardic GI normal to inspection, nondistended, normoactive bowel sounds, soft to palpation and non-tender Neuro oriented x3, CN's II-XII intact bilaterally and no sensory deficits noted Sensorium / Orientation: awake and alert Motor Exam: strength 5/5 throughout MDM MDM MDM Narrative Medical decision making narrative: EKG was obtained. On my interpretation, it showed atrial fibrillation with rate of 148. There is a right bundle branch block pattern noted. There are no acute ST or T wave changes. CBC and basic metabolic profile were obtained and were essentially within normal limits. PT with INR and PTT were normal. Troponin was 0.021. Portable chest x-ray was obtained. There is 1 view. On my interpretation, there is cardiomegaly noted. There are bilateral pleural effusions. There is evidence of pulmonary edema. Radiologist also interpreted the x-ray and agrees. Patient was given a Cardizem bolus initially. Patient was given a dose of Lasix here. Patient was advised of his results. Case was discussed with the hospitalist. When he evaluated the patient, patient's heart rate was up to 120. He requested an extra dose of Cardizem. Patient was given a dose of 10 mg of Cardizem. He will admit the patient to his service. Patient understood and was agreeable with the plan. All questions were answered. Lab Data Attestation: I reviewed the patient's lab results. Labs: Laboratory Results - last 24 hr 08/26/20 08/26/20 08/26/20 18:10 18:10 18:10 WBC 9.4 RBC 4.70 Hgb 13.3 Hct 43.4 MCV 92.3 MCH 28.3 MCHC 30.6 L RDW Std Deviation 69.7 H RDW Coeff of Ayesha 20.6 H Plt Count 339 MPV 9.3 Immature Gran % (Auto) 0.300 Neut % (Auto) 92.0 H Lymph % (Auto) 2.0 L Arroyo % (Auto) 5.0 Eos % (Auto) 0.5 Baso % (Auto) 0.2 Absolute Neuts (auto) 8.7 H Absolute Lymphs (auto) 0.19 L Nucleated RBC % 0 Differential Comment SCANNED Platelet Estimate ADEQUATE Anisocytosis 3+ PT 13.5 INR 1.1 APTT 28.4 Sodium 142 Potassium 3.9 Chloride 106 Carbon Dioxide 29.0 Anion Gap 7 BUN 23 H Creatinine 0.93 Estim Creat Clear Calc 57.02 Est GFR (MDRD) Af Amer 99 Est GFR (MDRD) Non-Af 82 BUN/Creatinine Ratio 24.7 H Glucose 126 H Calcium 9.2 Troponin I 0.021 Radiography Chest X-Ray - ED: 1 View, Read by ED Physician, Read by Radiologist, Cardiomegaly, CHF, Right Effusion and Left Effusion Diagnostic Testing: Radiology Impression Chest X-Ray 08/26/20 18:40 IMPRESSION: Cardiomegaly with pulmonary edema and bilateral pleural effusions. Acute superimposed infection cannot be excluded. at 1912 Reported and signed by: Narciso Xie MD Electronically Signed: Narciso Xie MD at 19:11 EDT Tel , Service support , EKG Initial EKG: Attestation: I personally reviewed and interpreted this EKG as follows: Interpretation: Atrial Fibrillation (148) and RBBB Treatment and Re-Evaluation Vital Sign Attestation:: Vital signs were reviewed prior to patient being admitted. There are stable. Discharge Plan Dx/Rx/DC Orders Clinical Impression: Atrial fibrillation with RVR, Pulmonary edema Disposition Disposition: Acute Care Hospital [facility]
[2020-08-26] MEDS: dilTIAZem 25 MG/5 ML Vial IV BOLUS (18:34)
[2020-08-26 18:38] LABS: Absolute Lymphocyte Count 0.19 X10^3/uL (0.83-4.51); Absolute Neutrophil Count 8.7 X10^3/uL (2.0-7.7); Basophil# 0.02 X10^3/uL; Basophil% 0.2 % (0-1); Eosinophil# 0.05 X10^3/uL; Eosinophils% 0.5 % (0-5); Hematocrit 43.4 % (40-54); Hemoglobin 13.3 g/dL (13.0-16.5); Lymphocyte # 0.19 X10^3/ul (0.83-4.51); Mean Corp Hgb Conc 30.6 g/dL (32-36); Mean Corpuscular Hgb 28.3 pg (27.0-32.0); Mean Corpuscular Volume 92.3 fL (80-94); Mean Platelet Vol. 9.3 fl (6.2-12.0); Monocyte# 0.47 X10^3/uL; NRBC Flagged by Analyzer 0 % (0-5); Neutrophil # 8.65 X10^3/uL (2.7-7.7); POSITIVE DIFFERENTIAL YES; POSITIVE MORPHOLOGY YES; Platelet Count 339 K/mm3 (150-450); RBC Distribution Width CV 20.6 % (11.6-14.6); RBC Distribution Width SD 69.7 fl (35.1-43.9); White Blood Count 9.4 K/mm3 (4.4-11.0)
[2020-08-26 18:40] LABS: Differential Indicated SCAN CRITERIA MET
--- NOTE | 2020-08-26 18:40 | RAD_ITS ---
HISTORY: chest pain EXAMINATION/TECHNIQUE: XR Chest 1 View: Portable upright AP chest x-ray COMPARISON: 05/07/20 FINDINGS: LINES/DEVICES: None. LUNGS: Hazy bibasilar airspace opacities, right side greater than left with bibasilar pleural effusions, right greater than left. Mild vascular congestion. MEDIASTINUM AND CARDIOVASCULAR STRUCTURES: Cardiomegaly, increased cardiac size since reference exam. BONES AND SOFT TISSUES: No acute bony abnormalities. RAD/Chest 1 View (Portable) IMPRESSION: Cardiomegaly with pulmonary edema and bilateral pleural effusions. Acute superimposed infection cannot be excluded. at 1912 Reported and signed by: Narciso Xie MD Electronically Signed: Narciso Xie MD at 19:11 EDT Tel , Service support ,
[2020-08-26 18:43] LABS: International Normalized Ratio 1.1; Prothrombin Time (Protime)PT. 13.5 SECONDS (11.7-14.9)
[2020-08-26 18:44] LABS: Partial Thromboplast Time 28.4 Seconds (24.1-36.2)
[2020-08-26 18:47] LABS: Anion Gap 7 (5-15); BUN 23 mg/dL (7-18); BUN/Creat Ratio 24.7 RATIO (10-20); Calcium,Total 9.2 mg/dL (8.5-10.1); Chloride 106 mmol/L (98-107); Creatinine, Serum 0.93 mg/dL (0.70-1.30); EST Glomerular Filtration Rate 82 mL/min (>60); Est Glom Filt Rate - Afr Amer 99 mL/min (>60); Estimated Creatinine Clearance 57.02 ml/min; Glucose 126 mg/dL (74-106); Potassium 3.9 mmol/L (3.5-5.1); Sodium Level 142 mmol/L (136-145)
[2020-08-26 19:24] LABS: Anisocytosis 3+; Differential Comment SCANNED; Platelet Estimate ADEQUATE (ADEQ)
[2020-08-26] MEDS: Aspirin 81 MG TAB.CHEW 324 MG PO (19:31)
--- NOTE | 2020-08-26 20:41 | PCM.HP.STD ---
Documented by User: Tiffany Merchant NP-C 08/26/20 21:31 HPI - General HPI Narrative FEI OLEARY, is a 85 M who presents with palpitations. Patient states that he began feeling palpitations today and was accompanied by lightheadedness and moderate chest pain which has resolved. Initial EKG in ER showed A. fib with rate of 148 and the patient received a Cardizem bolus. Patient current heart rate 114-118. Chest x-ray is evident for pulmonary edema. [facility] Medical History (Updated 08/26/20 @ 23:19 by Loida Zafar) Acute diarrheal illness Acute kidney injury Atherosclerotic heart disease of [place] coronary artery without angina pectoris Atrial fibrillation Atrial fibrillation with RVR (05/28/20) Cancer Chest pain Chronic pain of right heel Chronic pain of right heel DDD (degenerative disc disease) Debility Delayed wound healing Essential (primary) hypertension GERD (gastroesophageal reflux disease) History of non-ST elevation myocardial infarction (NSTEMI) (07/02/19) History of non-ST elevation myocardial infarction (NSTEMI) (07/02/19) Hyperlipidemia Hypertension Lumbar stenosis Neuropathy Non-healing ulcer of right foot with fat layer exposed Nonhealing ulcer of left lower extremity with fat layer exposed Obstructive sleep apnea Open wound of finger of left hand PAD (peripheral artery disease) Peripheral arterial occlusive disease Peripheral neuropathy Peripheral neuropathy Pneumonia due to COVID-19 virus (03/23/20) Prostate cancer Rectal prolapse Rectal prolapse Retinopathy due to secondary diabetes Right bundle branch block (RBBB) Septic shock Sleep apnea Spondylolisthesis Ulcer of right heel Ulcer of right lower extremity with fat layer exposed Urinary incontinence UTI (urinary tract infection) Home Medications omeprazole 20 mg PO DAILY 10/07/15 [History Last Taken 08/26/20] niimojcy-gwp-BH-lycopen-lutein 1 tab PO DAILY 02/14/18 [History Last Taken 08/26/20] vitamin E 400 unit PO DAILY 10/29/18 [History Last Taken 08/26/20] duloxetine 30 mg capsule,delayed release 30 mg PO DAILY 03/06/19 [History Last Taken 08/26/20] atorvastatin 20 mg tablet 20 mg PO QHS #90 tab 06/10/19 [Rx Last Taken 08/25/20] acetaminophen 500 mg tablet 500 mg PO TID tab 01/30/20 [History Last Taken 08/26/20] potassium chloride 20 meq PO BID 02/25/20 [History Last Taken 08/26/20] ferrous gluconate 324 mg PO DAILY 03/23/20 [History Last Taken 08/26/20] isosorbide mononitrate 30 mg tablet,extended release 24 hr 30 mg PO DAILY 05/28/20 [History Last Taken 08/26/20] metoprolol tartrate 50 mg tablet 50 mg PO BID 05/28/20 [History Last Taken 08/26/20] furosemide 40 mg tablet 40 mg PO DAILY tablet 08/10/20 [History Last Taken 08/26/20] donepezil 5 mg PO QHS 08/26/20 [History Last Taken 08/25/20] lisinopril 5 mg PO DAILY 08/26/20 [History Last Taken 08/26/20] nut tx, lact-reduced, iron [Boost [facility]] 120 ea PO TID 08/26/20 [History Last Taken 08/26/20] polyethylene glycol 3350 17 g PO DAILY 08/26/20 [History Last Taken 08/26/20] Allergy/AdvReac Type Severity Reaction Status Date / Time latex Allergy Unknown unknown Verified 08/26/20 18:06 carisoprodol Allergy Other Verified 08/26/20 18:06 itraconazole Allergy Other Verified 08/26/20 18:06 Family History Mother CVA (cerebral vascular accident) Sister Hypertension Surgical History (Updated 08/26/20 @ 23:19 by Loida Zafar) History of angioplasty of peripheral vessel (10/23/13) History of back surgery History of coronary artery stent placement (10/07/15) History of coronary artery stent placement History of hernia repair History of left heart catheterization (07/02/19) History of prostatectomy History of shoulder surgery History of tonsillectomy Social History [facility] Smoking Status: Never smoker alcohol intake: former details: 1 glass of red wine x3 days a week substance use type: does not use caffeine: No what type of physical activity do you participate in: none seatbelt use: always do you feel safe at home: Yes ROS Constitutional Constitutional: Denies anorexia, chills, fatigue or fever(s) Cardiovascular Cardiovascular: Reports chest pain, dyspnea on exertion, lightheadedness and palpitations Respiratory/Chest Respiratory/Chest: Denies cough Gastrointestinal Gastrointestinal: Denies abdominal pain, constipation, diarrhea, nausea or vomiting Genitourinary Genitourinary: Denies dysuria Musculoskeletal Musculoskeletal: Denies back pain, extremity pain or joint pain Integumentary Integumentary: Denies dry skin, rash or wounds Neurologic Neurologic: Denies abnormal gait, abnormal speech, confusion or dizziness Psychiatric Psychiatric: Denies anxiety or depression Endocrine Endocrinology: Denies change in body appearance Hematologic/Lymphatic Hematologic/Lymphatic: Denies easy bleeding or easy bruising Vital Signs Vital Signs Vital Signs: 08/26/20 18:02 08/26/20 18:31 08/26/20 19:33 Temperature 98.9 F Temperature Source Oral Pulse Rate 130 H 110 H Respiratory Rate 23 H 23 H Blood Pressure 163/100 H 145/81 H Blood Pressure Mean 121 102 Pulse Ox 89 96 Oxygen Delivery Method Room Air Nasal Cannula Room Air Physical Exam Const alert and oriented x3 General Appearance: cooperative HEENT normocephalic and head/scalp atraumatic Eyes PERRL Neck supple, no JVD and thyroid normal General: trachea midline Lymph Lymphatic: no lymphadenopathy noted Resp normal respiratory effort and normal air movement Auscultation: rales bilateral throughout Cardio S1 normal heart sound and S2 normal heart sound Rate: tachycardic Rhythm: abnormal rhythm irregularly irregular GI normal to inspection, nondistended, normoactive bowel sounds, soft to palpation and non-tender Extremity normal capillary refill and no clubbing, cyanosis or edema General Extremity: no tenderness to palpation of joints or extremities Skin General Skin Exam: no breakdown and turgor normal Lesions: no lesions Rashes: no rashes Neuro CN's II-XII intact bilaterally Psych thought process normal, cooperative and affect normal Appearance: appropriate Lab / Micro Data Result Diagrams: 08/26/20 18:10 08/26/20 18:10 Labs: Laboratory Results - last 24 hr 08/26/20 08/26/20 08/26/20 18:10 18:10 18:10 WBC 9.4 RBC 4.70 Hgb 13.3 Hct 43.4 MCV 92.3 MCH 28.3 MCHC 30.6 L RDW Std Deviation 69.7 H RDW Coeff of Ayesha 20.6 H Plt Count 339 MPV 9.3 Immature Gran % (Auto) 0.300 Neut % (Auto) 92.0 H Lymph % (Auto) 2.0 L [place] % (Auto) 5.0 Eos % (Auto) 0.5 Baso % (Auto) 0.2 Absolute Neuts (auto) 8.7 H Absolute Lymphs (auto) 0.19 L Nucleated RBC % 0 Differential Comment SCANNED Platelet Estimate ADEQUATE Anisocytosis 3+ PT 13.5 INR 1.1 APTT 28.4 Sodium 142 Potassium 3.9 Chloride 106 Carbon Dioxide 29.0 Anion Gap 7 BUN 23 H Creatinine 0.93 Estim Creat Clear Calc 57.02 Est GFR (MDRD) Af Amer 99 Est GFR (MDRD) Non-Af 82 BUN/Creatinine Ratio 24.7 H Glucose 126 H Calcium 9.2 Troponin I 0.021 Radiology Impression Chest X-Ray 08/26/20 18:40 IMPRESSION: Cardiomegaly with pulmonary edema and bilateral pleural effusions. Acute superimposed infection cannot be excluded. at 1912 Reported and signed by: Narciso Xie MD Electronically Signed: Narciso Xie MD at 19:11 EDT Tel , Service support , Assessment & Plan Assessment/Plan (1) Atrial fibrillation with RVR: (2) Atherosclerotic heart disease of [place] coronary artery without angina pectoris: QUALIFIERS: [place] vs. transplanted heart: unspecified whether [place] or transplanted heart Qualified Code(s): I25.10 - Atherosclerotic heart disease of [place] coronary artery without angina pectoris (3) Pulmonary edema: QUALIFIERS: Chronicity: acute Qualified Code(s): J81.0 - Acute pulmonary edema (4) Essential (primary) hypertension: (5) Hyperlipidemia: QUALIFIERS: Hyperlipidemia type: mixed hyperlipidemia Qualified Code(s): E78.2 - Mixed hyperlipidemia (6) Mild cognitive impairment: (7) History of non-ST elevation myocardial infarction (NSTEMI): (8) Polyneuropathy: (9) History of coronary artery stent placement: PLAN: 1. Atrial fibrillation with RVR -Admit to PCU for continuous cardiac monitoring -Currently rate controlled after Cardizem bolus -Continue metoprolol 50 mg twice daily -O2 per protocol -Obtain orthostatic vital signs -Patient reports history of A. fib, not currently on anticoagulant therapy -Echocardiogram in a.m. -CBC and CMP daily 2. Pulmonary edema -Lasix 40 mg IV given in ER, will continue twice daily upon admission -Trend electrolytes daily 3. Essential hypertension -Continue isosorbide, lisinopril, metoprolol. -Vital signs per protocol, trend BP 4. Hyperlipidemia -Continue atorvastatin 5. Mild cognitive impairment -Continue donepezil 6. Polyneuropathy -Continue duloxetine 7. History of non-ST elevation myocardial infarction 8. History of coronary artery stent placement DVT prophylaxis-subcu Lovenox This patient was seen by FILIPE Willis under the supervision of Dr. Sanchez. Documented by User: Dr. Mario Sanchez MD 08/26/20 23:54 HPI - General General Date of Admission: 08/26/20 [facility] Medical History (Updated 08/26/20 @ 23:19 by Loida Zafar) Acute diarrheal illness Acute kidney injury Atherosclerotic heart disease of [place] coronary artery without angina pectoris Atrial fibrillation Atrial fibrillation with RVR (05/28/20) Cancer Chest pain Chronic pain of right heel Chronic pain of right heel DDD (degenerative disc disease) Debility Delayed wound healing Essential (primary) hypertension GERD (gastroesophageal reflux disease) History of non-ST elevation myocardial infarction (NSTEMI) (07/02/19) History of non-ST elevation myocardial infarction (NSTEMI) (07/02/19) Hyperlipidemia Hypertension Lumbar stenosis Neuropathy Non-healing ulcer of right foot with fat layer exposed Nonhealing ulcer of left lower extremity with fat layer exposed Obstructive sleep apnea Open wound of finger of left hand PAD (peripheral artery disease) Peripheral arterial occlusive disease Peripheral neuropathy Peripheral neuropathy Pneumonia due to COVID-19 virus (03/23/20) Prostate cancer Rectal prolapse Rectal prolapse Retinopathy due to secondary diabetes Right bundle branch block (RBBB) Septic shock Sleep apnea Spondylolisthesis Ulcer of right heel Ulcer of right lower extremity with fat layer exposed Urinary incontinence UTI (urinary tract infection) Home Medications omeprazole 20 mg PO DAILY 10/07/15 [History Last Taken 08/26/20] kkjgitqm-kym-MD-lycopen-lutein 1 tab PO DAILY 02/14/18 [History Last Taken 08/26/20] vitamin E 400 unit PO DAILY 10/29/18 [History Last Taken 08/26/20] duloxetine 30 mg capsule,delayed release 30 mg PO DAILY 03/06/19 [History Last Taken 08/26/20] atorvastatin 20 mg tablet 20 mg PO QHS #90 tab 06/10/19 [Rx Last Taken 08/25/20] acetaminophen 500 mg tablet 500 mg PO TID tab 01/30/20 [History Last Taken 08/26/20] potassium chloride 20 meq PO BID 02/25/20 [History Last Taken 08/26/20] ferrous gluconate 324 mg PO DAILY 03/23/20 [History Last Taken 08/26/20] isosorbide mononitrate 30 mg tablet,extended release 24 hr 30 mg PO DAILY 05/28/20 [History Last Taken 08/26/20] metoprolol tartrate 50 mg tablet 50 mg PO BID 05/28/20 [History Last Taken 08/26/20] furosemide 40 mg tablet 40 mg PO DAILY tablet 08/10/20 [History Last Taken 08/26/20] donepezil 5 mg PO QHS 08/26/20 [History Last Taken 08/25/20] lisinopril 5 mg PO DAILY 08/26/20 [History Last Taken 08/26/20] nut tx, lact-reduced, iron [Boost [facility]] 120 ea PO TID 08/26/20 [History Last Taken 08/26/20] polyethylene glycol 3350 17 g PO DAILY 08/26/20 [History Last Taken 08/26/20] Allergy/AdvReac Type Severity Reaction Status Date / Time latex Allergy Unknown unknown Verified 08/26/20 18:06 carisoprodol Allergy Other Verified 08/26/20 18:06 itraconazole Allergy Other Verified 08/26/20 18:06 Family History Mother CVA (cerebral vascular accident) Sister Hypertension Surgical History (Updated 08/26/20 @ 23:19 by Loida Zafar) History of angioplasty of peripheral vessel (10/23/13) History of back surgery History of coronary artery stent placement (10/07/15) History of coronary artery stent placement History of hernia repair History of left heart catheterization (07/02/19) History of prostatectomy History of shoulder surgery History of tonsillectomy Social History housing[facility] Smoking Status: Never smoker alcohol intake: former details: 1 glass of red wine x3 days a week substance use type: does not use caffeine: No what type of physical activity do you participate in: none seatbelt use: always do you feel safe at home: Yes Lab / Micro Data Result Diagrams: 08/26/20 18:10 08/26/20 18:10 Addendum Addendum: Patient is an 85-year-old male with a significant history of atrial fibrillation who presents emergency department with palpitations. Associated with symptoms is shortness of breath. At the emergency department patient was found to be in A. fib with rapid ventricular response. Cardizem bolus x2 was given. Patient is alert and oriented x3. With some incoherence. Nontraumatic; normocephalic Lung clear to auscultate Heart sounds S1-S2; tachycardia; irregularly irregular rate and rhythm.. No murmur, gallop or rubs. Abdomen bowel sounds present soft, nontender nondistended Extremity: Bilateral feet cool; edematous. A. fib with RVR EKG independently reviewed confirms A. fib with rapid ventricular response. [id number] 2 score is elevated however patient is not in any anticoagulation. Likely secondary to high has bled score. Check TSH Potassium 3.9; replace. Check magnesium and TSH. Received Cardizem bolus at emergency department. Start on Cardizem infusion. Continue metoprolol p.o.. Acute exacerbation of heart failure with preserved ejection fraction Place on monitored bed on a progressive care unit Radiologist impression of chest x-ray: Cardiomegaly with pulmonary edema and bilateral pleural effusions.. Per radiologist acute superimposed infection cannot be excluded. Actual chest x-ray image was independently reviewed. Chest x-ray with bilateral pleural effusions. Bilateral infiltrates more prominent at lower lung field and with some consolidation at right lower lung macias.. Chest x-ray was also reviewed. Chris chest x-ray appears worsened than previous. Weight on admission to the floor; and then daily Strict I&O's Lasix 40 mg IV push given at the emergency department. Hold home Lasix 40 mg p.o. daily. Diuresis with Lasix 40 mg IV twice daily. Echocardiogram on 07/02/2019 showed estimated ejection fraction of 53%. Stage II diastolic dysfunction. Mild segmental systolic dysfunction. Inferobasal akinesis. Check echocardiogram. Monitor electrolytes and renal function Trend blood pressure Fluid restriction of 1500 mls daily Cardiac diet Hypertension Blood pressure is stable Imdur; lisinopril; and metoprolol continued. Trend blood pressure and adjust blood pressure medications. DVT prophylaxis Subcutaneous Lovenox ordered Visit Charges Inpatient E&M: 28043 Init Hosp L3
[2020-08-26] MEDS: Furosemide 40 MG/4 ML Vial IV (20:48)
[2020-08-27] VITALS (33 sets, daily range): BP systolic 100–145; BP diastolic 50–90; PULSE 67–107; RESP 13–24; TEMP 36.6–36.7; O2SAT 93–99
[2020-08-27] MEDS: Metoprolol Tartrate 50 MG Tablet PO ×2 (00:15→09:23)
[2020-08-27] MEDS: Donepezil HCl 5 MG Tablet PO (00:15)
[2020-08-27] MEDS: Atorvastatin Calcium 20 MG Tablet PO ×2 (00:15→21:27)
[2020-08-27] MEDS: Potassium Chloride Oral Tablet 20 MEQ 40 MEQ PO (00:16)
[2020-08-27] MEDS: Acetaminophen 500 MG Tablet PO ×3 (05:24→21:27)
[2020-08-27 05:37] LABS: Absolute Neutrophil Count 5.9 X10^3/uL (2.0-7.7); Basophil# 0.02 X10^3/uL; Basophil% 0.3 % (0-1); Eosinophil# 0.06 X10^3/uL; Eosinophils% 0.9 % (0-5); Hematocrit 36.9 % (40-54); Hemoglobin 11.6 g/dL (13.0-16.5); Lymphocyte % 4.3 % (19-41); Mean Corp Hgb Conc 31.4 g/dL (32-36); Mean Corpuscular Hgb 28.6 pg (27.0-32.0); Mean Corpuscular Volume 91.1 fL (80-94); Mean Platelet Vol. 8.8 fl (6.2-12.0); Monocyte# 0.63 X10^3/uL; Monocyte% 9.1 % (0-10); NRBC Flagged by Analyzer 0 % (0-5); Neutrophil # 5.91 X10^3/uL (2.7-7.7); POSITIVE DIFFERENTIAL YES; POSITIVE MORPHOLOGY YES; Platelet Count 268 K/mm3 (150-450); RBC Distribution Width CV 20.2 % (11.6-14.6); RBC Distribution Width SD 67.6 fl (35.1-43.9); Red Blood Count 4.05 M/mm3 (4.6-6.2)
[2020-08-27 05:41] LABS: Differential Indicated SCAN CRITERIA MET
--- NOTE | 2020-08-27 05:55 | ECHOD_ITS ---
Reason For Study: AFIB/FLUTTER Procedure This was a 2D Doppler, Color Flow transthoracic echocardiogram. Exam performed portable in patient room. Left Ventricle Normal left ventricle. Mildly dilated left ventricle. The estimated ejection fraction is Ef 50-55% %. Right Ventricle Normal right ventricle. Normal systolic function. Atria The left atrium is moderately enlarged. The right atrium is mildly enlarged. Mitral Valve The mitral valve is structurally normal. No prolapse or stenosis seen. Moderate (2+) mitral valve insufficiency. Tricuspid Valve Normal tricuspid valve. Mild to moderate (1-2+) tricuspid valve insufficiency. Aortic Valve Aortic sclerosis, no stenosis. Mild (1+) aortic valve insufficiency. Pulmonic Valve The pulmonic valve is not well visualized. Great Vessels Normal aortic root. Pericardium/Pleural No pericardial effusion. MMode/2D Measurements & Calculations LVIDd: 4.8 cm IVSd: 1.3 cm Ao root diam: 2.9 cm LVIDs: 3.2 cm LVPWd: 1.1 cm RVDd: 4.4 cm FS: 33.3 % LAV(MOD-bp): 83.0 ml LA A4 area: 21.9 cm2 LA dimension(2D): 4.1 cm LAV(MOD-bp) Indexed: 47.4 ml/m2 LAV(MOD-sp2): 77.9 ml LAV(MOD-sp4): 73.9 ml RA A4 area: 19.3 cm2 Time Measurements MV dec time: 0.15 sec Doppler Measurements & Calculations MV E max maximo: 95.8 cm/sec Lat Peak E' Maximo: 12.8 cm/sec Med Peak E' Maximo: 7.2 cm/sec MV A max maximo: 29.3 cm/sec E/E' lat: 7.5 E/E' med: 13.2 MV E/A: 3.3 Ao V2 max: 108.0 cm/sec LV V1 max: 86.9 cm/sec MR max maximo: 505.6 cm/sec Ao max P.7 mmHg LV V1 max P.0 mmHg MR max P.3 mmHg MR mean maximo: 420.1 cm/sec MR mean P.3 mmHg MR VTI: 153.7 cm PA V2 max: 76.9 cm/sec TR max maximo: 272.6 cm/sec TR max P.7 mmHg ECHO/Echo Complete Interpretation Summary Normal left ventricle Systolic function The estimated ejection fraction is Ef 50-55% %. Moderate MR Mild -moderate TR Mild AI Ordering Physician: Tiffany Merhcant Referring Physician: Noe Weeks Performed By: Aimee Mcgregor, KAILA, RVT
[2020-08-27 06:04] LABS: Anisocytosis 1+; Differential Comment SCANNED
[2020-08-27 06:10] LABS: Anion Gap 6 (5-15); BUN 21 mg/dL (7-18); BUN/Creat Ratio 25.7 RATIO (10-20); Calcium,Total 8.4 mg/dL (8.5-10.1); Chloride 103 mmol/L (98-107); Creatinine, Serum 0.82 mg/dL (0.70-1.30); EST Glomerular Filtration Rate 95 mL/min (>60); Est Glom Filt Rate - Afr Amer 115 mL/min (>60); Estimated Creatinine Clearance 58.35 ml/min; Glucose 103 mg/dL (74-106); Potassium 3.1 mmol/L (3.5-5.1); Sodium Level 140 mmol/L (136-145)
--- NOTE | 2020-08-27 09:12 | CASEMGMT ---
MARISOL faxed updates to [facility] where patient resides. Lanny Harley ORDER ENTRY TECHNICIAN ELEVATOR MECHANIC APPRENTICE
[2020-08-27] MEDS: Vitamin E 400 UNITS Capsule PO (09:21)
[2020-08-27] MEDS: Pantoprazole Sodium 20 MG Tablet PO (09:21)
[2020-08-27] MEDS: Enoxaparin 40 MG/0.4 ML Syringe SC (09:22)
[2020-08-27] MEDS: Isosorbide Mononitrate 30 MG Tablet PO (09:22)
[2020-08-27] MEDS: Multivitamin (Healthy Eyes) Capsule 1 CAP PO (09:22)
[2020-08-27] MEDS: Potassium Chloride Oral Tablet 20 MEQ PO ×2 (09:22→16:41)
[2020-08-27] MEDS: Ferrous Gluconate 324 MG Tablet PO (09:22)
[2020-08-27] MEDS: DULoxetine Hcl 30 MG Capsule PO (09:22)
[2020-08-27] MEDS: Lisinopril 5 MG Tablet PO (09:23)
--- NOTE | 2020-08-27 11:59 | CASEMGMT ---
MARISOL spoke with patient and confirmed his plan is to return to [facility] when ready. Lanny Harley METER CALIBRATOR HIPOLITO
--- NOTE | 2020-08-27 12:25 | CASEMGMT ---
Patient has a Healthcare Power of Assistant Editor and a Healthcare Living Will on file at [facility]. His Kassandra is his Healthcare Power of Assistant Editor. Lanny MCMILLAN
[2020-08-27] MEDS: Metoprolol Tartrate 25 MG Tablet PO (13:40)
[2020-08-27] MEDS: Furosemide 40 MG Tablet PO (17:06)
--- NOTE | 2020-08-27 19:04 | PCM.PN.HOSP ---
Subjective Subjective Patient was seen and examined today, I stopped his Cardizem drip today and transition to him onto a higher dose of metoprolol. Patient appears to be tolerating this well. Objective Data Objective Data Vital Signs: Vital Signs Temp Pulse Resp BP Pulse Ox 98 F 72 15 128/74 H 98 08/27/20 16:35 08/27/20 16:35 08/27/20 16:35 08/27/20 16:35 08/27/20 16:35 Oxygen Flow Rate (L/min) 2 Oxygen Delivery Method Room Air Weight: 66.4 kg Body Mass Index (BMI) 24.0 Intake & Output: Intake and Output for Last 24 Hours 08/25/20 08/26/20 08/27/20 23:59 23:59 23:59 Intake Total 0 / 240 1685.08 / 1685.08 Balance 0 / 240 1685.08 / 1685.08 Lab / Micro Data Result Diagrams: 08/27/20 05:30 08/27/20 05:30 Labs: Laboratory Results - last 24 hr 08/26/20 08/26/20 08/27/20 18:10 23:38 02:20 WBC RBC Hgb Hct MCV MCH MCHC RDW Std Deviation RDW Coeff of Ayesha Plt Count MPV Immature Gran % (Auto) Neut % (Auto) Lymph % (Auto) [place] % (Auto) Eos % (Auto) Baso % (Auto) Absolute Neuts (auto) Absolute Lymphs (auto) Nucleated RBC % Differential Comment SCANNED Platelet Estimate ADEQUATE Anisocytosis 3+ Sodium Potassium Chloride Carbon Dioxide Anion Gap BUN Creatinine Estim Creat Clear Calc Est GFR (MDRD) Af Amer Est GFR (MDRD) Non-Af BUN/Creatinine Ratio Glucose Calcium Troponin I 0.040 0.038 TSH 08/27/20 08/27/20 08/27/20 05:30 05:30 05:30 WBC 7.0 RBC 4.05 L Hgb 11.6 L Hct 36.9 L MCV 91.1 MCH 28.6 MCHC 31.4 L RDW Std Deviation 67.6 H RDW Coeff of Ayesha 20.2 H Plt Count 268 MPV 8.8 Immature Gran % (Auto) 0.400 Neut % (Auto) 85.0 H Lymph % (Auto) 4.3 L [place] % (Auto) 9.1 Eos % (Auto) 0.9 Baso % (Auto) 0.3 Absolute Neuts (auto) 5.9 Absolute Lymphs (auto) 0.30 L Nucleated RBC % 0 Differential Comment SCANNED Platelet Estimate Anisocytosis 1+ Sodium 140 Potassium 3.1 L Chloride 103 Carbon Dioxide 31.0 Anion Gap 6 BUN 21 H Creatinine 0.82 Estim Creat Clear Calc 58.35 Est GFR (MDRD) Af Amer 115 Est GFR (MDRD) Non-Af 95 BUN/Creatinine Ratio 25.7 H Glucose 103 Calcium 8.4 L Troponin I 0.039 TSH 0.50 Radiography Diagnostic Testing: Radiology Impression Chest X-Ray 08/26/20 18:40 IMPRESSION: Cardiomegaly with pulmonary edema and bilateral pleural effusions. Acute superimposed infection cannot be excluded. at 1912 Reported and signed by: Narciso Xie MD Electronically Signed: Narciso Xie MD at 19:11 EDT Tel , Service support , Echocardiogram 08/27/20 05:55 Interpretation Summary Normal left ventricle Systolic function The estimated ejection fraction is Ef 50-55% %. Moderate MR Mild -moderate TR Mild AI Ordering Physician: Tiffany Merchant Referring Physician: Noe Weeks Performed By: Aimee Mcgregor, KAILA, RVT Physical Exam Const alert, oriented x3, no apparent distress and healthy appearing General Appearance: cooperative, well kempt and well developed Orientation / Consciousness: awake, oriented to person, oriented to place and oriented to time HEENT normocephalic and moist oral mucous membranes Eyes PERRL, EOMs intact bilaterally and conjunctivae normal Neck nuchal rigidity, supple, no JVD, thyroid normal and no carotid bruits General: trachea midline Resp normal respiratory effort and clear to auscultation bilaterally Auscultation: Negative for rales, rhonchi or wheezes Cardio S1 normal heart sound, S2 normal heart sound, no murmurs, no rub, no gallops and no clicks Cardio Narrative: Irregular rate and rhythm was noted GI normal to inspection, nondistended, normoactive bowel sounds, soft to palpation, non-tender and non-distended Extremity normal to inspection and no clubbing, cyanosis or edema Skin no rashes or lesions noted and no wounds General Skin Exam: no breakdown Neuro CN's II-XII intact bilaterally, no focal motor deficits and no sensory deficits noted Sensorium / Orientation: awake and alert Speech: speech normal Psych thought process normal and affect normal Assessment & Plan Assessment/Plan (1) Atrial fibrillation with RVR: PLAN: #1 Chronic atrial fibrillation with RVR-patient will be observed on telemetry on a higher dose of metoprolol, his rate is controlled at this time #2 Congestive heart failure-diastolic in nature, acute-I placed the patient on IV Lasix, I will repeat his chest x-ray tomorrow #3 cognitive impairment-chronic in nature, I assume that the patient may have underlying dementia, he is on Aricept, I will increase his dosage as he is on the starting dose of this medication. #4 coronary artery disease #5 essential hypertension #6 chronic debility Visit Charges Inpatient E&M: 16956 Subs Hosp L2
[2020-08-27] MEDS: Furosemide 40 MG/4 ML Vial IV (21:26)
[2020-08-27] MEDS: Donepezil HCl 10 MG Tablet PO (21:27)
[2020-08-27] MEDS: Metoprolol Tartrate 25 MG Tablet 75 MG PO (21:28)
[2020-08-27] MEDS: 0.9% Saline Lock 10 ML Syringe IV (21:33)
[2020-08-28] VITALS (14 sets, daily range): BP systolic 106–154; BP diastolic 64–86; PULSE 80–138; RESP 14–20; TEMP 36.1–36.8; O2SAT 92–96
[2020-08-28] MEDS: Acetaminophen 500 MG Tablet PO ×3 (05:21→20:42)
[2020-08-28 07:00] LABS: Anion Gap 5 (5-15); BUN 22 mg/dL (7-18); BUN/Creat Ratio 25.7 RATIO (10-20); Calcium,Total 8.8 mg/dL (8.5-10.1); Chloride 103 mmol/L (98-107); Creatinine, Serum 0.86 mg/dL (0.70-1.30); EST Glomerular Filtration Rate 90 mL/min (>60); Est Glom Filt Rate - Afr Amer 109 mL/min (>60); Estimated Creatinine Clearance 55.64 ml/min; Glucose 84 mg/dL (74-106); Potassium 3.1 mmol/L (3.5-5.1); Sodium Level 138 mmol/L (136-145)
[2020-08-28] MEDS: Metoprolol Tartrate 25 MG Tablet 75 MG PO ×2 (08:48→20:42)
[2020-08-28] MEDS: Furosemide 40 MG/4 ML Vial IV ×2 (08:49→17:54)
[2020-08-28] MEDS: Enoxaparin 40 MG/0.4 ML Syringe SC (08:49)
[2020-08-28] MEDS: Ferrous Gluconate 324 MG Tablet PO (08:49)
[2020-08-28] MEDS: Multivitamin (Healthy Eyes) Capsule 1 CAP PO (08:49)
[2020-08-28] MEDS: Pantoprazole Sodium 20 MG Tablet PO (08:49)
[2020-08-28] MEDS: Isosorbide Mononitrate 30 MG Tablet PO (08:50)
[2020-08-28] MEDS: Potassium Chloride Oral Tablet 20 MEQ PO ×2 (08:50→17:54)
[2020-08-28] MEDS: DULoxetine Hcl 30 MG Capsule PO (08:51)
[2020-08-28] MEDS: Polyethylene Glycol 3350 17 GM PACKET PO (08:51)
[2020-08-28] MEDS: Lisinopril 5 MG Tablet PO (08:51)
[2020-08-28] MEDS: Potassium Chloride Oral Tablet 20 MEQ 40 MEQ PO (08:56)
--- NOTE | 2020-08-28 12:52 | RAD_ITS ---
STUDY: X-RAY CHEST REASON FOR EXAM: Male, 85 years old. CHF TECHNIQUE: Frontal and lateral views of the chest. COMPARISON: 08/26/2020. FINDINGS: Increased density in both lower lung macias worse on the right consistent with atelectasis or infiltrate and pleural effusions. Findings have improved especially on the right. Normal size heart. Normal mediastinum and terry. Normal visualized pulmonary arteries. Normal visualized aortic arch and descending thoracic aorta. There are diffuse degenerative changes of the visualized thoracic spine. Normal visualized ribs, clavicles, and shoulders. There is no demonstrated abnormality of the visualized soft tissue structures of the upper abdomen. RAD/Chest PA and Lateral IMPRESSION: Atelectasis or infiltrate in both lung bases with pleural effusions. Findings are worse on the right. There has been improvement on the right since previously. Electronically Signed: Orestes Lee MD at 17:34 EDT , Service support ,
--- NOTE | 2020-08-28 12:57 | CASEMGMT ---
MARISOL spoke with Dionne valdes [place] and let her know that patient is having another chest x-ray and if it is okay he will be d/c'd today. She said that is fine and he will need a COVID test as he is not vaccinated. MARISOL told her SW will let her know about d/c. Lanny MCMILLAN
--- NOTE | 2020-08-28 15:15 | CASEMGMT ---
Physician is keeping patient until tomorrow at least. MARISOL notified Dionne at [facility]. MARISOL also put a green sheet on patient's chart. SW spoke with patient's and we discussed transport back to the long term. Patient told her he has not been up since he got here. SW told her it would probably be best if we set up transport. SW told her if he goes by wheelchair it is not covered by insurance and it would likely be under $100. SW told her if he goes by cot and it can be justified medically it would be covered. MARISOL told her someone should call her and let her know if he is being discharged. She thanked MARISOL. Plan: d/c back to [facility] at [place]. Lanny MCMILLAN
--- NOTE | 2020-08-28 17:57 | PCM.PN.HOSP ---
Subjective Subjective Patient was seen and examined today, his heart rate appears under adequate control at this time, chest x-ray is improved with less evidence of CHF today. Patient remains on room air at this time, he does not complain of any shortness of breath. Objective Data Objective Data Vital Signs: Vital Signs Temp Pulse Resp BP Pulse Ox 98.2 F 80 18 129/76 H 96 08/28/20 17:49 08/28/20 17:49 08/28/20 17:49 08/28/20 17:49 08/28/20 17:49 Oxygen Flow Rate (L/min) 2 Oxygen Delivery Method Room Air Weight: 65.4 kg Body Mass Index (BMI) 24.0 Intake & Output: Intake and Output for Last 24 Hours 08/26/20 08/27/20 08/28/20 23:59 23:59 23:59 Intake Total 0 / 240 1685.08 / 2165.08 1130 / 1130 Balance 0 / 240 1685.08 / 2165.08 1130 / 1130 Lab / Micro Data Result Diagrams: 08/27/20 05:30 08/28/20 05:35 Labs: Laboratory Results - last 24 hr 08/28/20 05:35 Sodium 138 Potassium 3.1 L Chloride 103 Carbon Dioxide 30.0 Anion Gap 5 BUN 22 H Creatinine 0.86 Estim Creat Clear Calc 55.64 Est GFR (MDRD) Af Amer 109 Est GFR (MDRD) Non-Af 90 BUN/Creatinine Ratio 25.7 H Glucose 84 Calcium 8.8 Radiography Diagnostic Testing: Radiology Impression Chest X-Ray 08/28/20 12:52 IMPRESSION: Atelectasis or infiltrate in both lung bases with pleural effusions. Findings are worse on the right. There has been improvement on the right since previously. Electronically Signed: Orestes Lee MD at 17:34 EDT , Service support , Physical Exam Const alert and no apparent distress General Appearance: cooperative, well kempt and well developed Orientation / Consciousness: awake, oriented to person, oriented to place and oriented to time HEENT head/scalp atraumatic and moist oral mucous membranes Head and Scalp: normocephalic Eyes PERRL, EOMs intact bilaterally and conjunctivae normal Neck no lymphadenopathy, supple and no JVD General: trachea midline Lymph Lymphatic: no lymphadenopathy noted Resp normal respiratory effort, no retractions, no use of accessory muscles and clear to auscultation bilaterally Auscultation: Negative for rales, rhonchi or wheezes Cardio no gallops and no clicks; Negative for no murmurs, no rub or no JVD Cardio Narrative: Heart rate and rhythm was irregular Rate: tachycardic Rhythm: abnormal rhythm irregularly irregular GI normal to inspection, nondistended, normoactive bowel sounds, soft to palpation, non-tender and non-distended Extremity normal to inspection and no clubbing, cyanosis or edema General Extremity: no tenderness to palpation of joints or extremities Skin no rashes or lesions noted, no wounds and skin turgor normal General Skin Exam: no breakdown and turgor normal Lesions: no lesions Rashes: no rashes Neuro CN's II-XII intact bilaterally and no focal motor deficits Sensorium / Orientation: awake and alert Speech: speech normal Psych affect normal Appearance: appropriate Assessment & Plan Assessment/Plan (1) Atrial fibrillation with RVR: PLAN: #1 Chronic atrial fibrillation with RVR-patient's heart rate is under better control today-no adjustments in the patient's medications today #2 Congestive heart failure-diastolic in nature, acute-continue IV Lasix #3 cognitive impairment-chronic in nature, I assume that the patient may have underlying dementia #4 coronary artery disease #5 essential hypertension #6 chronic debility #7 hypokalemia-potassium replacement was given, I will recheck his BMP tomorrow Visit Charges Inpatient E&M: 60424 Subs Hosp L2
[2020-08-28] MEDS: Atorvastatin Calcium 20 MG Tablet PO (20:41)
[2020-08-28] MEDS: Donepezil HCl 10 MG Tablet PO (20:42)
[2020-08-28] MEDS: Metoprolol Tartrate 5 MG/5 ML Vial IV (23:43)
[2020-08-29] VITALS (14 sets, daily range): BP systolic 109–145; BP diastolic 54–89; PULSE 82–140; RESP 18; TEMP 36.2–36.5; O2SAT 93–96
[2020-08-29] MEDS: Metoprolol Tartrate 5 MG/5 ML Vial IV ×2 (00:09→00:26)
[2020-08-29] MEDS: 0.9% Saline Lock 10 ML Syringe IV ×2 (00:11→05:24)
[2020-08-29] MEDS: dilTIAZem 25 MG/5 ML Vial 10 MG IV BOLUS (05:24)
[2020-08-29 06:40] LABS: Anion Gap 7 (5-15); BUN 33 mg/dL (7-18); Chloride 104 mmol/L (98-107); Creatinine, Serum 1.03 mg/dL (0.70-1.30); EST Glomerular Filtration Rate 73 mL/min (>60); Est Glom Filt Rate - Afr Amer 88 mL/min (>60); Estimated Creatinine Clearance 46.46 ml/min; Glucose 96 mg/dL (74-106); Potassium 3.5 mmol/L (3.5-5.1); Sodium Level 141 mmol/L (136-145)
[2020-08-29] MEDS: Polyethylene Glycol 3350 17 GM PACKET PO (08:57)
[2020-08-29] MEDS: Enoxaparin 40 MG/0.4 ML Syringe SC (08:57)
[2020-08-29] MEDS: Ferrous Gluconate 324 MG Tablet PO (08:57)
[2020-08-29] MEDS: Isosorbide Mononitrate 30 MG Tablet PO (08:58)
[2020-08-29] MEDS: DULoxetine Hcl 30 MG Capsule PO (08:58)
[2020-08-29] MEDS: Lisinopril 5 MG Tablet PO (08:58)
[2020-08-29] MEDS: Pantoprazole Sodium 20 MG Tablet PO (08:58)
[2020-08-29] MEDS: Furosemide 40 MG/4 ML Vial IV (08:58)
[2020-08-29] MEDS: Multivitamin (Healthy Eyes) Capsule 1 CAP PO (08:58)
[2020-08-29] MEDS: Metoprolol Tartrate 25 MG Tablet 75 MG PO (08:59)
[2020-08-29] MEDS: Potassium Chloride Oral Tablet 20 MEQ PO (09:00)
--- NOTE | 2020-08-29 11:32 | TREXTCAR_ITS ---
Diet 08/26/20 23:21 Diet: Cardiac - Heart Healthy Food consistency:: Regular Liquid Consistency:: Regular/Thin Is pt able to select menu?: Yes Problem/Diagnosis (1) Atrial fibrillation with RVR: Status: Chronic Allergies/Procedures Done in Hospital Allergies latex Allergy (Unknown, Verified 08/26/20 18:06) unknown carisoprodol Allergy (Verified 08/26/20 18:06) Other itraconazole Allergy (Verified 08/26/20 18:06) Other Type of Care/Length of Stay Estimated LOS: Convalescent Care Less Than 30 days Type of Care Needed: Skilled Rehab Potential: Fair Prognosis: Fair Additional Orders/Day of Discharge Day of Discharge: 08/29/20 Discharge Plan Admission Admit Date/Time: 08/26/20 23:16 Primary Reason for Your Visit: CHF, a-fib Attending Provider: Alfonzo Polk Primary Care Provider: Noe Weeks Discharge Orders/Prescriptions Prescriptions: New donepezil 10 mg Tablet 10 mg PO QHS Qty: 0 RF: 0 metoprolol tartrate 25 mg Tablet 75 mg PO BID Qty: 0 RF: 0 furosemide [Lasix] 40 mg tablet 40 mg PO BID Qty: 1 RF: 0 potassium chloride [Klor-Con M20] 20 mEq Tablet,Er Particles/Crystals 20 meq PO BIDCM Qty: 0 RF: 0 Continued duloxetine 30 mg capsule,delayed release(DR/EC) 30 mg PO DAILY RF: 0 furosemide 40 mg tablet 40 mg PO DAILY RF: 0 omeprazole 20 MG capsule 20 mg PO DAILY RF: 0 gpzevybn-efw-KV-lycopen-lutein 1 EACH tablet 1 tab PO DAILY RF: 0 vitamin E 400 UNIT capsule 400 unit PO DAILY RF: 0 acetaminophen 500 mg tablet 500 mg PO TID RF: 0 potassium chloride 10 MEQ tablet,ER particles/crystals 20 meq PO BID RF: 0 ferrous gluconate 324 MG tablet 324 mg PO DAILY RF: 0 polyethylene glycol 3350 17 gram Powder In Packet 17 g PO DAILY RF: 0 Boost VHC 0.09-2.25 gram-kcal/mL Liquid 120 ea PO TID RF: 0 lisinopril 5 MG tablet 5 mg PO DAILY RF: 0 atorvastatin 20 mg tablet 20 mg PO QHS Qty: 90 RF: 3 metoprolol tartrate 50 mg tablet 50 mg PO BID RF: 0 isosorbide mononitrate 30 mg tablet extended release 24 hr 30 mg PO DAILY RF: 0 Discontinued donepezil 5 mg Tablet 5 mg PO QHS RF: 0 Referrals / Follow Up: Noe Weeks MD [Primary Care Provider] - Disposition Disposition (needs filled in before D/C Order can be placed): Detention Facility
--- NOTE | 2020-08-29 13:01 | NURSING ---
This RN called and gave report to TRAVIS Olson at the [facility].
[2020-08-29] MEDS: Acetaminophen 500 MG Tablet PO (13:10)
--- NOTE | 2020-08-31 18:13 | PCM.DC.SUM ---
Providers Date of Admission: 08/26/20 Date of Discharge: 08/29/20 Primary Care Physician: Dr. 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, due to dementia #4 coronary artery disease #5 essential hypertension #6 chronic debility #7 hypokalemia Medications at Discharge Home Medications omeprazole 20 mg PO DAILY 10/07/15 bbkhoumm-yro-HS-lycopen-lutein 1 tab PO DAILY 02/14/18 vitamin E 400 unit PO DAILY 10/29/18 duloxetine 30 mg capsule,delayed release 30 mg PO DAILY 03/06/19 atorvastatin 20 mg tablet 20 mg PO QHS #90 tab 06/10/19 acetaminophen 500 mg tablet 500 mg PO TID tab 01/30/20 potassium chloride 20 meq PO BID 02/25/20 ferrous gluconate 324 mg PO DAILY 03/23/20 isosorbide mononitrate 30 mg tablet,extended release 24 hr 30 mg PO DAILY 05/28/20 metoprolol tartrate 50 mg tablet 50 mg PO BID 05/28/20 furosemide 40 mg tablet 40 mg PO DAILY tablet 08/10/20 Boost VHC 120 ea PO TID 08/26/20 lisinopril 5 mg PO DAILY 08/26/20 polyethylene glycol 3350 17 g PO DAILY 08/26/20 donepezil 10 mg PO QHS #0 tab 08/29/20 furosemide [Lasix] 40 mg PO BID #1 tab 08/29/20 metoprolol tartrate 75 mg PO BID #0 tab 08/29/20 potassium chloride [Klor-Con M20] 20 meq PO BIDCM #0 tab 08/29/20 Hospital Course Operations None Procedures 2-D Echocardiogram Summary of Care Provided Minutes Spent on Discharge: 32 Hospital Course: Patient was seen and examined in the emergency room at [facility] after being sent in from a local detention at which the patient resides due to complaints of palpitations and increased heart rate, patient also complained of lightheadedness. Work-up in the emergency room included an EKG which showed atrial fibrillation with a rate of 148, right bundle branch block pattern was noted, CBC and basic metabolic profile were obtained and were essentially within normal limits. Chest x-ray was obtained, there was cardiomegaly noted and bilateral pleural effusions and evidence of pulmonary edema. Patient was given a Cardizem bolus in the emergency room and a dose of Lasix, patient was admitted to PCU, he was placed on a Cardizem drip and given IV Lasix. Echocardiogram was obtained which showed a normal ejection fraction. Patient's Cardizem drip was ultimately discontinued and he was placed on a higher dose of outpatient beta-juan a which she had been taking prior to admission. Patient improved during his hospitalization. On 08/29/2020, patient was seen and examined:alert and no apparent distress General Appearance: cooperative, well kempt and well developed Orientation / Consciousness: awake, oriented to person, oriented to place and oriented to time HEENT head/scalp atraumatic and moist oral mucous membranes Head and Scalp: normocephalic Eyes PERRL, EOMs intact bilaterally and conjunctivae normal Neck no lymphadenopathy, supple and no JVD General: trachea midline Lymph Lymphatic: no lymphadenopathy noted Resp normal respiratory effort, no retractions, no use of accessory muscles and clear to auscultation bilaterally Auscultation: Negative for rales, rhonchi or wheezes Cardio no gallops and no clicks; Negative for no murmurs, no rub or no JVD Cardio Narrative: Heart rate and rhythm was irregular Rate: tachycardic Rhythm: abnormal rhythm irregularly irregular GI normal to inspection, nondistended, normoactive bowel sounds, soft to palpation, non-tender and non-distended Extremity normal to inspection and no clubbing, cyanosis or edema General Extremity: no tenderness to palpation of joints or extremities Skin no rashes or lesions noted, no wounds and skin turgor normal General Skin Exam: no breakdown and turgor normal Lesions: no lesions Rashes: no rashes Neuro CN's II-XII intact bilaterally and no focal motor deficits Sensorium / Orientation: awake and alert Speech: speech normal Psych affect normal Appearance: appropriate On 08/29/2020, patient was stable for discharge back to his extended care facility in stable condition ABG / Lab / Microbiology Data Result Diagrams: 08/27/20 05:30 08/29/20 06:04 Microbiology: Microbiology 08/29/20 11:25 Mucosa - Nasopharyngeal SARS-CoV-2 Antigen (Rapid) - Final Meaningful Use Info Meaningful Use Diagnoses (Choose all that apply): CHF CHF TIFFANIE/ARB ordered at discharge?: Yes Documented LVEF (%): 55 Discharge Plan Admission Admit Date/Time: 08/26/20 23:16 Primary Reason for Your Visit: CHF, a-fib Attending Provider: Alfonzo Polk Primary Care Provider: Noe Weeks Instructions Additional Instructions / Restrictions: Patient Problems: Altered Health Status related to Hospitalization Patient Goals: *Optimal Level of Health *Keep Appointments *Medication Compliance *Remain Safe Discharge Orders/Prescriptions Prescriptions: New donepezil 10 mg Tablet 10 mg PO QHS Qty: 0 RF: 0 metoprolol tartrate 25 mg Tablet 75 mg PO BID Qty: 0 RF: 0 furosemide [Lasix] 40 mg tablet 40 mg PO BID Qty: 1 RF: 0 potassium chloride [Klor-Con M20] 20 mEq Tablet,Er Particles/Crystals 20 meq PO BIDCM Qty: 0 RF: 0 Continued duloxetine 30 mg capsule,delayed release(DR/EC) 30 mg PO DAILY RF: 0 furosemide 40 mg tablet 40 mg PO DAILY RF: 0 omeprazole 20 MG capsule 20 mg PO DAILY RF: 0 zzeevgta-cwf-JU-lycopen-lutein 1 EACH tablet 1 tab PO DAILY RF: 0 vitamin E 400 UNIT capsule 400 unit PO DAILY RF: 0 acetaminophen 500 mg tablet 500 mg PO TID RF: 0 potassium chloride 10 MEQ tablet,ER particles/crystals 20 meq PO BID RF: 0 ferrous gluconate 324 MG tablet 324 mg PO DAILY RF: 0 polyethylene glycol 3350 17 gram Powder In Packet 17 g PO DAILY RF: 0 Boost VHC 0.09-2.25 gram-kcal/mL Liquid 120 ea PO TID RF: 0 lisinopril 5 MG tablet 5 mg PO DAILY RF: 0 atorvastatin 20 mg tablet 20 mg PO QHS Qty: 90 RF: 3 metoprolol tartrate 50 mg tablet 50 mg PO BID RF: 0 isosorbide mononitrate 30 mg tablet extended release 24 hr 30 mg PO DAILY RF: 0 Discontinued donepezil 5 mg Tablet 5 mg PO QHS RF: 0 Referrals / Follow Up: Noe Weeks MD [Primary Care Provider] - Disposition Disposition (needs filled in before D/C Order can be placed): [facility]irement Facility Visit Charges Inpatient E&M: 19349 Disch Hosp
== END 2020-08-29 14:40 | disposition skilled nursing facility (03) | DRG 308 ==
LOC: ED 20:25 → PCU 23:47
PROVIDERS: Nurse Practitioner Family; Admitting Provider Hospitalist; Emergency Provider Emergency Medicine; PCP Family Medicine; Visit Provider Internal Medicine
DX: I48.20 Chronic atrial fibrillation, unspecified (principal); I50.31 Acute diastolic (congestive) heart failure; I11.0 Hypertensive heart disease with heart failure; I25.10 Atherosclerotic heart disease of native coronary artery without angina pectoris; E87.6 Hypokalemia; F03.90 Unspecified dementia, unspecified severity, without behavioral disturbance, psychotic disturbance, mood disturbance, and anxiety; I45.10 Unspecified right bundle-branch block; G47.33 Obstructive sleep apnea (adult) (pediatric); I25.2 Old myocardial infarction; Z82.3 Family history of stroke; Z82.49 Family history of ischemic heart disease and other diseases of the circulatory system; Z90.79 Acquired absence of other genital organ(s); Z95.5 Presence of coronary angioplasty implant and graft; Z91.040 Latex allergy status; Z79.899 Other long term (current) drug therapy
CPT/HCPCS: 36415; 71045; 71046; 80048; 84443; 84484; 85025; 85610; 85730; 87426; 93005; 93306; 94762; 97162; 97166; 97530; 99285; A4216; J1940

== ENCOUNTER → 2020-11-09 10:00 | Outpatient (CLI) | payer MEDICARE, OTHER, SELFPAY ==
[2020-05-18 11:06] VITALS: BMI 20.9
[2020-10-08 15:02] VITALS: BMI 24.0
--- NOTE | 2020-11-09 10:06 | ART_ITS ---
Reason For Study: ATHEROSCLEROSIS Procedure A bilateral lower extremity continuous wave Doppler with analog waveform analysis and ankle brachial indexes. Left Segmental Pressures Left brachial= 133mmHg. Left posterior tibial artery = 85mmHg. Left dorsalis pedis artery = 82mmHg. Left digit = 59 mmHg. The left dorsalis pedis waveforms are monophasic. The left posterior tibial artery waveforms are monophasic. Right Segmental Pressures Right brachial= 151mmHg. Right posterior tibial artery = 105mmHg. Right dorsalis pedis artery = 67mmHg. Right digit = 78 mmHg. The right posterior tibial artery waveforms are biphasic. The right dorsalis pedis waveforms are monophasic. Indices The right ankle brachial index by the dorsalis pedis is .44. The right ankle brachial index by the posterior tibial artery is .7. The right digital-brachial index is .52. The left ankle brachial index by the dorsalis pedis is .54. The left ankle brachial index by the posterior tibial artery is .56. The left digital-brachial index is .39. VL/Ankle Brachial Index Interpretation Summary Right leg with biphasic flow and an RALPH 0.7. Left leg with monophasic flow and an RALPH 0.56. Digit brachial index of 0.52 and 0.39. Ordering Physician: Nate Rose Referring Physician: MARIELLA ALLEN Performed By: Rosalee Mohamud, RDCS, RVT
--- NOTE | 2020-11-09 10:06 | ADUL_ITS ---
Reason For Study: Atherosclerosis Right Velocities Left Velocities Ext. Iliac Artery, dist = 54 cm./sec. Ext Iliac Artery, dist = 50.5 cm./sec. 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 Common Femoral Artery, mid = 46 cm./sec. SFA prox, prox stent, 90.4 cm/sec. Profunda femoral artery, origin, 226 cm/sec. SFA mid, mid stent, 30.9 cm/sec. Profunda femoral artery, prox, 57.6 cm/sec. SFA distal, distal stent, 40 cm/sec. SFA Origin, 38.4 cm/sec. SFA distal, distal to stent, 111.2 cm/sec. SFA Prox, 102.1 cm/sec. Profunda Femoral Artery = 111.2 cm./sec. Supf. Femoral Artery, mid = 15.6 cm./sec. Popliteal Artery, prox. = 40 cm./sec. Supf. Femoral Artery, dist = 17.6 cm./sec. Popliteal Artery, mid = 58.2 cm./sec. Popliteal Artery, proximal, = 138.1 cm./sec. Popliteal Artery, dist = 51.9 cm./sec. Popliteal Artery, mid = 38.4 cm./sec. Post. Tibial Artery, dist = 11.3 cm./sec. Popliteal Artery, distal = 15.6 cm./sec. Peroneal Artery, mid = 15.6 cm./sec. Post. Tibial Artery, prox = 18.2 cm./sec. Peroneal Artery,dist = 72.4 cm./sec. Post Tibial Artery, mid = 9.4 cm./sec. Ant. Tibial Artery, prox = 54.8 cm./sec. Post Tibial Artery, dist. = 14.1 cm./sec. Ant. Tibial Artery, mid = 66.9 cm./sec. Peroneal Artery, prox = 25.9 cm./sec. Ant. Tibial Artery, dist = 39.5 cm./sec. Peroneal Artery, mid = 20 cm./sec. 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 Peroneal Artery,dist. = 17.6 cm./sec. Ant.Tibial Artery, prox = 15.3 cm./sec. TWIN mid-distal, No Flow. Procedure Exam performed in department. VL/US Art Duplex Unilat Lower Ext Interpretation Summary Right leg with triphasic flow noted through the common femoral and profunda and into the SFA. Areas of occlusion in the peroneal and posterior tibial artery. Appears adequate flow through the anterior tibial artery. Left leg with decreased flow noted proximally. Occlusion noted i n the anterior tibial artery. Suggestion of proximal occlusive disease noted. Ordering Physician: Nate Rose Referring Physician: Noe Weeks Performed By: Paradise Sahu RVT
== END ==
PROVIDERS: PCP Family Medicine; Referring Provider Surgery Vascular Surgery; Visit Provider Surgery Vascular Surgery
DX: I70.213 Atherosclerosis of native arteries of extremities with intermittent claudication, bilateral legs (principal); I77.1 Stricture of artery; E78.00 Pure hypercholesterolemia, unspecified; I10 Essential (primary) hypertension; I25.10 Atherosclerotic heart disease of native coronary artery without angina pectoris; M19.90 Unspecified osteoarthritis, unspecified site; Z85.828 Personal history of other malignant neoplasm of skin
CPT/HCPCS: 93922; 93926

== ENCOUNTER 2021-03-10 08:26 | Emergency (ER) | payer MEDICARE, OTHER, SELFPAY ==
[2021-03-10 08:26] VITALS: BP 150/128; PULSE 156; RESP 40; TEMP 36.3; O2SAT 94; BMI 27.4
--- NOTE | 2021-03-10 08:32 | EKG12_ITS ---
Test Reason : SOB Blood Pressure : / mmHG Vent. Rate : 152 BPM Atrial Rate : 156 BPM P-R Int : 000 ms QRS Dur : 128 ms QT Int : 356 ms P-R-T Axes : 000 -83 073 degrees QTc Int : 566 ms Atrial fibrillation with premature ventricular or aberrantly conducted complexes Left axis deviation Right bundle branch block Septal infarct , age undetermined Abnormal ECG Confirmed by CARMEN MONTES, CHARLY ([id number]), greeting card editor REHAN GASPAR ([id number]) on 03/12/2021 6:39:20 AM Referred By: EFREN Confirmed By:CHARLY MORALES MD
--- NOTE | 2021-03-10 08:41 | ED.RN ---
rn charted admission on wrong patient.
== END 2021-03-10 23:59 | disposition home or self-care (01) ==
LOC: ED 07-19 14:08
PROVIDERS: Emergency Provider Emergency Medicine; PCP Family Medicine; Visit Provider Emergency Medicine
DX: Z00.00 Encounter for general adult medical examination without abnormal findings (principal)
CPT/HCPCS: 93005

== ENCOUNTER 2021-05-18 18:04 | Emergency (ER) | payer MEDICARE, OTHER, SELFPAY ==
[2021-05-18 18:05] VITALS: BP 119/64; PULSE 113; RESP 16; TEMP 36.7; O2SAT 98; BMI 22.2
--- NOTE | 2021-05-18 18:46 | EDS_ITS ---
HPI History of Present Illness Chief Complaint: Wound Check Informant: patient Onset/Context/Timing Onset: Days Current Severity: Mild Maximum Severity: Moderate Narrative Narrative: [facility] to left foot infection. Patient states he had a blister on that foot that has now resolved but now a new blister has formed. He denies fever or chills. It appears that he is on doxycycline that was started on the . [facility] Medical History Acute diarrheal illness Acute kidney injury Atherosclerotic heart disease of [place] coronary artery without angina pectoris Atrial fibrillation Atrial fibrillation with RVR (05/28/20) Cancer Chest pain Chronic pain of right heel DDD (degenerative disc disease) Debility Delayed wound healing Dementia Diabetes Essential (primary) hypertension Gait disorder GERD (gastroesophageal reflux disease) Hallucinations History of non-ST elevation myocardial infarction (NSTEMI) (07/02/19) Hyperlipidemia Hypertension Lumbar stenosis Neuropathy Non-healing ulcer of right foot with fat layer exposed Nonhealing ulcer of left lower extremity with fat layer exposed Obstructive sleep apnea Open wound of finger of left hand PAD (peripheral artery disease) Peripheral arterial occlusive disease Peripheral neuropathy Pneumonia due to COVID-19 virus (03/23/20) Prostate cancer Rectal prolapse Retinopathy due to secondary diabetes Right bundle branch block (RBBB) Septic shock Sleep apnea Spondylolisthesis Ulcer of right heel Ulcer of right lower extremity with fat layer exposed Urinary incontinence UTI (urinary tract infection) Home Medications omeprazole 20 mg PO DAILY 10/07/15 [History Last Taken 08/26/20] nzeovdfk-qgy-JY-lycopen-lutein 1 tab PO DAILY 02/14/18 [History Last Taken 08/26/20] vitamin E 400 unit PO DAILY 10/29/18 [History Last Taken 08/26/20] duloxetine 30 mg capsule,delayed release 30 mg PO DAILY 03/06/19 [History Last Taken 08/26/20] atorvastatin 20 mg tablet 20 mg PO QHS #90 tab 06/10/19 [Rx Last Taken 08/25/20] potassium chloride 20 meq PO BID 02/25/20 [History Last Taken 08/26/20] ferrous gluconate 324 mg PO DAILY 03/23/20 [History Last Taken 08/26/20] isosorbide mononitrate 30 mg tablet,extended release 24 hr 30 mg PO DAILY 05/28/20 [History Last Taken 08/26/20] lisinopril 5 mg PO DAILY 08/26/20 [History Last Taken 08/26/20] polyethylene glycol 3350 17 g PO DAILY 08/26/20 [History Last Taken 08/26/20] furosemide 40 mg tablet 40 mg PO DAILY #90 tab 10/08/20 [Rx Last Taken Unknown] metoprolol succinate 100 mg tablet,extended release 24 hr 100 mg PO DAILY #90 tab 10/14/20 [Rx Last Taken Unknown] bisacodyl 10 mg rectal suppository 10 mg WA DAILY PRN 11/10/20 [History Last Taken Unknown] diclofenac sodium 1 % topical gel 4 g TOPICAL BID #100 g 11/10/20 [Rx Last Taken Unknown] donepezil 10 mg tablet 10 mg PO QAM #0 tab 11/10/20 [Rx Last Taken Unknown] magnesium hydroxide 400 mg/5 mL oral suspension 30 ml PO DAILY PRN ml 11/10/20 [History Last Taken Unknown] mineral oil 118 ml WA DAILY PRN 11/10/20 [History Last Taken Unknown] acetaminophen 500 mg tablet 500 mg PO TID tab 01/21/21 [History Last Taken Unknown] doxepin 10 mg capsule 10 mg PO QHS #30 cap 02/04/21 [Rx Last Taken Unknown] Allergy/AdvReac Type Severity Reaction Status Date / Time latex Allergy Unknown unknown Verified 05/18/21 18:05 carisoprodol Allergy Other Verified 05/18/21 18:05 itraconazole Allergy Other Verified 05/18/21 18:05 Family History Mother CVA (cerebral vascular accident) Sister Hypertension Surgical History History of angioplasty of peripheral vessel (10/23/13) History of back surgery History of coronary artery stent placement (10/07/15) History of coronary artery stent placement History of hernia repair History of left heart catheterization (07/02/19) History of prostatectomy History of shoulder surgery History of tonsillectomy Social History housing: [facility] Smoking Status: Never smoker alcohol intake: former details: 1 glass of red wine x3 days a week substance use type: does not use caffeine: No what type of physical activity do you participate in: none seatbelt use: always do you feel safe at home: Yes ROS ROS ED Constitutional Constitutional ED: Denies chills or fever(s) Eyes Eyes: Denies change in vision ENT ENT ED: Denies sore throat Cardiovascular Cardiovascular: Denies chest pain Respiratory/Chest Respiratory/Chest: Denies cough or dyspnea Gastrointestinal Gastrointestinal: Denies abdominal pain, diarrhea, nausea or vomiting Musculoskeletal Musculoskeletal: Denies back pain Integumentary Reports other Details: Left foot wound ; Denies rash Neurologic Neurologic: Denies headache(s) or weakness Allergic/Immunologic Allergic/Immunologic ED: Denies urticaria EXAM Physical Exam Const Vital Signs: 05/18/21 18:05 Temperature 98.0 F Temperature Source Temporal Pulse Rate 113 H Respiratory Rate 16 Blood Pressure 119/64 Blood Pressure Mean 82 Pulse Ox 98 Oxygen Delivery Method Room Air Positive well nourished and well developed General Appearance ED: well developed HEENT Reports moist mucous membranes Eyes PERRL and EOMs intact bilaterally Neck supple Chest Wall inspection of chest normal and palpation of chest normal Resp normal respiratory effort and clear to auscultation bilaterally Cardio regular rate and regular rhythm GI non-tender Auscultation: hypoactive bowel sounds Palpation: soft Extremity Extremity Narrative: Small crusted lesion at the webspace between the left great toe and 2nd toe. No erythema. No drainage. There is a 3 mm diameter ulcerated lesion along the medial surface of the left second toe. No drainage or cellulitic changes around the site. Neuro oriented x3 Sensorium / Orientation: alert MDM MDM MDM Narrative Medical decision making narrative: Lab work obtained along with blood cultures. Left foot x-ray ordered. Lab Data Attestation: I reviewed the patient's lab results. Labs: Laboratory Results - last 24 hr 05/18/21 05/18/21 18:55 18:55 WBC 6.1 RBC 3.87 L Hgb 13.1 Hct 39.3 L MCV 101.6 H MCH 33.9 H MCHC 33.3 RDW Std Deviation 60.6 H RDW Coeff of Ayesha 16.0 H Plt Count 260 MPV 9.1 Immature Gran % (Auto) 0.200 Neut % (Auto) 66.1 Lymph % (Auto) 13.8 L Summers % (Auto) 14.3 H Eos % (Auto) 4.9 Baso % (Auto) 0.7 Absolute Neuts (auto) 4.0 Absolute Lymphs (auto) 0.84 Nucleated RBC % 0 ESR 35 H Sodium 142 Potassium 4.1 Chloride 109 H Carbon Dioxide 28.0 Anion Gap 5 BUN 34 H Creatinine 1.10 Estim Creat Clear Calc 43.92 Est GFR (MDRD) Af Amer 82 Est GFR (MDRD) Non-Af 67 BUN/Creatinine Ratio 30.9 H Glucose 117 H Calcium 8.8 C-React Prot Ext Range 5.56 H Radiography Diagnostic Testing: Clinical Impression(s) from Imaging Studies Foot X-Ray 05/18/21 19:00 IMPRESSION: Negative left foot x-rays. Electronically Signed: John Alcala MD at 19:24 EST , Treatment and Re-Evaluation Comments:: Patient's lab work is largely unremarkable. His white count is normal. Sed rate is slightly elevated at 35 and CRP of 5.56. X-ray per my interpretation shows no acute bony findings. Radiology to rotation is also reviewed. Left foot is cleansed. Antibiotic ointment placed to the ulcerated lesion on the medial portion of the second toe. Dressing placed. I will speak with Dr. Weeks with plan to discharge patient back to [facility]. Discharge Plan Triage Chief Complaint: Wound Check ED Provider: Nancy Rogers Dx/Rx/DC Orders Clinical Impression: Wound of left foot Instructions: ED Wound Care Prescriptions: No Action duloxetine 30 mg capsule,delayed release(DR/EC) 30 mg PO DAILY RF: 0 furosemide [Lasix] 40 mg tablet 40 mg PO DAILY Qty: 90 RF: 3 metoprolol succinate 100 mg tablet extended release 24 hr 100 mg PO DAILY Qty: 90 RF: 3 bisacodyl 10 mg suppository 10 mg WA DAILY PRN (Reason: Constipation) RF: 0 mineral oil [Fleet Mineral Oil] Enema 118 ml WA DAILY PRN (Reason: Constipation) RF: 0 magnesium hydroxide [Milk of Magnesia] 400 mg/5 mL suspension 30 ml PO DAILY PRN (Reason: Constipation) RF: 0 diclofenac sodium 1 % gel 4 g topical BID Qty: 100 RF: 0 donepezil 10 mg tablet 10 mg PO QAM Qty: 0 RF: 0 acetaminophen [Tylenol Extra Strength] 500 mg tablet 500 mg PO TID RF: 0 omeprazole 20 MG capsule 20 mg PO DAILY RF: 0 jmwygzsy-lms-WO-lycopen-lutein 1 EACH tablet 1 tab PO DAILY RF: 0 vitamin E 400 UNIT capsule 400 unit PO DAILY RF: 0 potassium chloride 10 MEQ tablet,ER particles/crystals 20 meq PO BID RF: 0 ferrous gluconate 324 MG tablet 324 mg PO DAILY RF: 0 polyethylene glycol 3350 17 gram Powder In Packet 17 g PO DAILY RF: 0 lisinopril 5 MG tablet 5 mg PO DAILY RF: 0 atorvastatin 20 mg tablet 20 mg PO QHS Qty: 90 RF: 3 isosorbide mononitrate 30 mg tablet extended release 24 hr 30 mg PO DAILY RF: 0 doxepin 10 mg capsule 10 mg PO QHS Qty: 30 RF: 2 Primary Care Provider: Noe Weeks Referrals: Noe Weeks MD [Primary Care Provider] - 1 Week Activity Restrictions/Additional Instructions: Your care was discussed with Dr. Weeks. He will plan to have wound care see you as well as podiatry. Disposition Disposition: Residential Facility Discharge Location: [facility] [place]
--- NOTE | 2021-05-18 19:00 | RAD_ITS ---
EXAM: XR LEFT FOOT COMPLETE, 3 OR MORE VIEWS CLINICAL INDICATION: infection FOOT WOUND WITH BACTERIA TECHNIQUE: Frontal, lateral and oblique views of the left foot. This report was created using [employer] report generation technology. COMPARISON: None. FINDINGS: BONES/JOINTS: Unremarkable. No acute fracture. No subluxation. Normal alignment. Preservation of the joint space. No sclerotic or destructive changes observed. SOFT TISSUES: Unremarkable. No soft tissue swelling or gas. No radiopaque foreign body. RAD/Foot min 3 Views IMPRESSION: Negative left foot x-rays. Electronically Signed: John Alcala MD at 19:24 EST Reading Location ID and State: [facility] / [place] , Service support ,
[2021-05-18 19:08] LABS: Absolute Lymphocyte Count 0.84 X10^3/uL (0.83-4.51); Basophil# 0.04 X10^3/uL; Basophil% 0.7 % (0-1); Eosinophils% 4.9 % (0-5); Hematocrit 39.3 % (40-54); Hemoglobin 13.1 g/dL (13.0-16.5); Lymphocyte # 0.84 X10^3/ul (0.83-4.51); Lymphocyte % 13.8 % (19-41); Mean Corp Hgb Conc 33.3 g/dL (32-36); Mean Corpuscular Hgb 33.9 pg (27.0-32.0); Mean Corpuscular Volume 101.6 fL (80-94); Mean Platelet Vol. 9.1 fl (6.2-12.0); Monocyte# 0.87 X10^3/uL; Monocyte% 14.3 % (0-10); NRBC Flagged by Analyzer 0 % (0-5); Neutrophil # 4.03 X10^3/uL (2.7-7.7); Neutrophil % 66.1 % (47-70); Platelet Count 260 K/mm3 (150-450); RBC Distribution Width SD 60.6 fl (35.1-43.9); Red Blood Count 3.87 M/mm3 (4.6-6.2); White Blood Count 6.1 K/mm3 (4.4-11.0)
[2021-05-18 19:14] LABS: Erythrocyte Sedimentation Rate 35 mm/hr (0-20)
[2021-05-18 19:21] LABS: Anion Gap 5 (5-15); BUN 34 mg/dL (7-18); BUN/Creat Ratio 30.9 RATIO (10-20); CRP 5.56 mg/L (0.0-3.0); Calcium,Total 8.8 mg/dL (8.5-10.1); Chloride 109 mmol/L (98-107); EST Glomerular Filtration Rate 67 mL/min (>60); Est Glom Filt Rate - Afr Amer 82 mL/min (>60); Estimated Creatinine Clearance 43.92 ml/min; Glucose 117 mg/dL (74-106); Potassium 4.1 mmol/L (3.5-5.1); Sodium Level 142 mmol/L (136-145)
[2021-05-18 20:27] VITALS: BP 134/82; PULSE 95; RESP 18; O2SAT 98
== END 2021-05-18 21:10 | disposition skilled nursing facility (03) ==
PROVIDERS: Emergency Provider Emergency Medicine; PCP Family Medicine; Visit Provider Emergency Medicine
DX: S91.302A Unspecified open wound, left foot, initial encounter (principal); I25.10 Atherosclerotic heart disease of native coronary artery without angina pectoris; E78.5 Hyperlipidemia, unspecified; I10 Essential (primary) hypertension
CPT/HCPCS: 36415; 73630; 80048; 85025; 85652; 86140; 87040; 99285

== ENCOUNTER 2021-06-08 10:59 | Outpatient (RCR) | payer MEDICARE, OTHER, SELFPAY ==
[2021-06-08 11:35] VITALS: BP 138/81; PULSE 113; RESP 16; TEMP 36.3; BMI 23.2
--- NOTE | 2021-06-08 12:21 | PCM.WC.HP ---
History of Present Illness Date of Service: 06/08/21 Chief Complaint: Chronic right heel ulceration, left lower leg ulcer Progress of Wound: This 85-year-old male with history of PVD to bilateral lower extremity frequently follows up with vascular surgery every 6 months and has a history of percutaneous intervention the left lower extremity with stent placement presents to wound care clinic with new onset ulceration to the left medial second digit and proximal first interspace. Patient notes mild pain limited wound site patient denies any rest pain notes he is unable to walk for long periods of time and primarily ambulates for transfer to the bathroom with a walker at his correction facility. At this time he reports inconsistent treatment of his wounds with application of antibiotic ointment at his correction facility, denies any pain to the wound sites, denies any constitutional symptoms. Patient has no other complaints. Past medical history includes carpal tunnel, dementia, pulmonary edema, 8 fib, hyperlipidemia, coronary artery disease, peripheral arterial disease Past surgical history includes stent placement for cardio coronary artery disease and peripheral arterial disease Medications documented in chart Family history noncontributory Allergies to latex carisoprodol itraconazole [facility] Medical History Acute diarrheal illness Acute kidney injury Atherosclerotic heart disease of [place] coronary artery without angina pectoris Atrial fibrillation Atrial fibrillation with RVR (05/28/20) Cancer Chest pain Chronic pain of right heel DDD (degenerative disc disease) Debility Delayed wound healing Dementia Diabetes Essential (primary) hypertension Gait disorder GERD (gastroesophageal reflux disease) Hallucinations History of non-ST elevation myocardial infarction (NSTEMI) (07/02/19) Hyperlipidemia Hypertension Lumbar stenosis Neuropathy Non-healing ulcer of right foot with fat layer exposed Nonhealing ulcer of left lower extremity with fat layer exposed Obstructive sleep apnea Open wound of finger of left hand PAD (peripheral artery disease) Peripheral arterial occlusive disease Peripheral neuropathy Pneumonia due to COVID-19 virus (03/23/20) Prostate cancer Rectal prolapse Retinopathy due to secondary diabetes Right bundle branch block (RBBB) Septic shock Sleep apnea Spondylolisthesis Ulcer of right heel Ulcer of right lower extremity with fat layer exposed Urinary incontinence UTI (urinary tract infection) Home Medications omeprazole 20 mg PO DAILY 10/07/15 [History Last Taken 08/26/20] vvjggqgm-wbf-WN-lycopen-lutein 1 tab PO DAILY 02/14/18 [History Last Taken 08/26/20] vitamin E 400 unit PO DAILY 10/29/18 [History Last Taken 08/26/20] duloxetine 30 mg capsule,delayed release 30 mg PO DAILY 03/06/19 [History Last Taken 08/26/20] atorvastatin 20 mg tablet 20 mg PO QHS #90 tab 06/10/19 [Rx Last Taken 08/25/20] potassium chloride 20 meq PO BID 02/25/20 [History Last Taken 08/26/20] ferrous gluconate 324 mg PO DAILY 03/23/20 [History Last Taken 08/26/20] isosorbide mononitrate 30 mg tablet,extended release 24 hr 30 mg PO DAILY 05/28/20 [History Last Taken 08/26/20] lisinopril 5 mg PO DAILY 08/26/20 [History Last Taken 08/26/20] polyethylene glycol 3350 17 g PO DAILY 08/26/20 [History Last Taken 08/26/20] furosemide 40 mg tablet 40 mg PO DAILY #90 tab 10/08/20 [Rx Last Taken Unknown] metoprolol succinate 100 mg tablet,extended release 24 hr 100 mg PO DAILY #90 tab 10/14/20 [Rx Last Taken Unknown] bisacodyl 10 mg rectal suppository 10 mg MA DAILY PRN 11/10/20 [History Last Taken Unknown] diclofenac sodium 1 % topical gel 4 g TOPICAL BID #100 g 11/10/20 [Rx Last Taken Unknown] magnesium hydroxide 400 mg/5 mL oral suspension 30 ml PO DAILY PRN ml 11/10/20 [History Last Taken Unknown] mineral oil 118 ml MA DAILY PRN 11/10/20 [History Last Taken Unknown] acetaminophen 500 mg tablet 500 mg PO TID tab 01/21/21 [History Last Taken Unknown] doxepin 10 mg capsule 10 mg PO QHS #30 cap 02/04/21 [Rx Last Taken Unknown] donepezil 10 mg PO QHS 06/08/21 [History Last Taken Unknown] Allergy/AdvReac Type Severity Reaction Status Date / Time latex Allergy Unknown unknown Verified 06/08/21 12:05 carisoprodol Allergy Other Verified 06/08/21 12:05 itraconazole Allergy Other Verified 06/08/21 12:05 Family History Mother CVA (cerebral vascular accident) Sister Hypertension Surgical History History of angioplasty of peripheral vessel (10/23/13) History of back surgery History of coronary artery stent placement (10/07/15) History of coronary artery stent placement History of hernia repair History of left heart catheterization (07/02/19) History of prostatectomy History of shoulder surgery History of tonsillectomy Social History housing: longterm Smoking Status: Never smoker alcohol intake: former details: 1 glass of red wine x3 days a week substance use type: does not use caffeine: No what type of physical activity do you participate in: none seatbelt use: always do you feel safe at home: Yes Vital Signs Vital Signs Vital Signs: 06/08/21 11:35 Temperature 97.3 F L Temperature Source Temporal Pulse Rate 113 H Respiratory Rate 16 Blood Pressure 138/81 H Blood Pressure Mean 100 Blood Pressure Source Monitor Blood Pressure Position Sitting Blood Pressure Location Right Arm Oxygen Delivery Method Room Air Weight Weight: 65.317 kg Body Mass Index (BMI) 23.2 Physical Exam Narrative Vascular: Dorsalis pedis posterior tibial pulses diminished to bilateral lower extremities skin is thin shiny atrophic no hair growth noted to bilateral lower extremities. +1 pitting edema noted to bilateral lower extremities limited to the perimalleoli regions. Neurologic: Light touch protective sensation absent to bilateral lower extremities Dermatologic: Focal ulceration full-thickness to dorsal medial second proximal interphalangeal joint, proximal aspect of the first interspace. Pre and post debridement measurements documented nursing notes. These wounds demonstrate mild periwound maceration, mild serous drainage. No signs of infection at this time. No deep probing. Musculoskeletal: No focal deformities, muscular strength diminished to 4 out of 5 to bilateral lower extremity compartments. No pain with calf squeeze bilaterally. No fluctuance or crepitus when palpating the wound or periwound areas. Const alert, no apparent distress and well nourished Debridement Note Debridement Note Post-Debridement Measurements and Additional Note: Post-Debridement Measurements/Treatment WC - Nurse 1 - General Ulcer Assessment Start: 06/08/21 11:35 Freq: Status: Active Protocol: ZAEXT Activity Type Activity Date Activity User E-Sign Co-Sign Detail Recorded Client Recorded Date Recorded By Document 06/08/21 11:35 BMF [id number] 06/08/21 12:00 BMF Edit Result 06/08/21 11:35 BMF (1) [id number] 06/08/21 12:04 BMF Edit Result 06/08/21 11:35 BMF (2) [id number] 06/08/21 12:05 BMF (1) Right - Posterior Tibial Palpable => No - Posterior Tibial Doppler => Monophasic - Dorsalis Pedis Palpable => No - Dorsalis Pedis Doppler => Monophasic - Extremity Color => Red - Hair Growth on Legs => No - Hair Growth on Toes => No - Temperature of Extremity => Cool - Other Deformity => No - Prior Foot Ulcer => No - Charcot Joint => No - Prior Amputation => No - Thick => Yes - Discolored => Yes - Deformed => No - Improper Length & Hygeine => No Left - Posterior Tibial Palpable => No - Posterior Tibial Doppler => Monophasic - Dorsalis Pedis Palpable => No - Dorsalis Pedis Doppler => Monophasic - Extremity Color => Red - Hair Growth on Legs => No - Hair Growth on Toes => No - Temperature of Extremity => Cool - Capillary Refill => Greater than 3 => Seconds - Other Deformity => No - Prior Foot Ulcer => No - Charcot Joint => No - Prior Amputation => No - Thick => Yes - Discolored => Yes - Deformed => No - Improper Length & Hygeine => No Feet - Top Side and Bottom => <Entered> (b) (2) Comment => dr in to room => prior to => completion of => nurse 1 06/08/21 11:35 - Today's Visit Information Type of service Initial Visit Arrival Mode Stretcher Transfer Assistance Other Transfer Assist (Other) 1 assist Accompanied by Patient Identification Verified (Name & Yes ) Patient Requires Transmission-Based No Precautions Height and Weight Height 5 ft 6 in Weight 65.317 kg Weight in Pounds 144.0 lbs Weight Measurement Method Stated by Patient Body Mass Index (BMI) 23.2 BMI Classification Normal BSA - Vero 1.74 Vital Signs Temperature (97.8 F-99.1 F) 97.3 F L Temperature Source Temporal Pulse Rate (60-100) 113 H Pulse Location Monitor Respiratory Rate (12-18) 16 Respiratory rate source Observation Oxygen Delivery Method Room Air Blood Pressure (90/60-120/80) 138/81 H Blood Pressure Mean 100 Source Monitor Position Sitting Blood Pressure Location Right Arm Comment dr in to room prior to completion of nurse 1 History Since Last Visit- (Skip if this is Patient's initial visit) Left Footwear Regular Shoe Right Footwear Regular Shoe Pain Scale: 0-10 Numeric Is Patient Pain Free? Yes Lower Extremity Assessment/ Foot Assessment/ Toe Nail Assessment Right -Posterior Tibial Palpable No -Posterior Tibial Doppler Monophasic -Dorsalis Pedis Palpable No -Dorsalis Pedis Doppler Monophasic -Extremity Color Red -Hair Growth on Legs No -Hair Growth on Toes No -Temperature of Extremity Cool -Other Deformity No -Prior Foot Ulcer No -Charcot Joint No -Prior Amputation No -Thick Yes -Discolored Yes -Deformed No -Improper Length & Hygeine No Left -Posterior Tibial Palpable No -Posterior Tibial Doppler Monophasic -Dorsalis Pedis Palpable No -Dorsalis Pedis Doppler Monophasic -Extremity Color Red -Hair Growth on Legs No -Hair Growth on Toes No -Temperature of Extremity Cool -Capillary Refill Greater than 3 Seconds -Other Deformity No -Prior Foot Ulcer No -Charcot Joint No -Prior Amputation No -Thick Yes -Discolored Yes -Deformed No -Improper Length & Hygeine No Neuropathy Assessment Feet - Top Side and Bottom <Entered> (a) Communication Assessment Preferred language 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 Able to Read Yes Able to Write Yes Communication Tools None Right Hearing Abillity Normal Left Hearing Abillity Normal Visual Assistive Devices Glasses Teaching Assessment Preferences Verbal,Written, Audio/Visual, Demonstration Barriers to Learning None Readiness To Learn Excellent Willingness to Engage in Self Management High Activies Readiness to Engage in Self Management High Activities Anxiety Level Calm Cooperation Cooperative Perception Coherent Interest in Health Problem Asks Questions Education Importance Acknowledges Need Does Patient Smoke tobacco or other No substances Smoking Status Never smoker Is Patient Diabetic No Functional Assessment Recent Decline in Ability to Perform Denies Any Declines 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 Cultural/Caodaism Needs that may affect No Treatment Plan Teaching: Wound Center *Welcome to the Wound Center -Person Taught Patient, Significant Other -Teaching Method Discussion -Response to teaching Verbalize understanding Welcome to the Wound Care Center Green[place]ic (a) 1 - + (b) 1 - + WC - Nurse 1 - General Ulcer Measurement Start: 06/08/21 11:35 Freq: Status: Active Protocol: Activity Type Activity Date Activity User E-Sign Co-Sign Detail Recorded Client Recorded Date Recorded By Document 06/08/21 11:35 [facility] [id number] 06/08/21 12:00 [facility] 06/08/21 11:35 Wound Center Nurse 1 #17 left medial 2nd toe -Combined with other wound No -Current Size (cm) - Length 0.4 -Current Size (cm) - Width 0.5 -Current Size (cm) - Depth 0.2 -Total Square Cm 0.20 -Date of Last Picture (Recall this 06/08/21 field) -Photo Taken Yes -Epithelialization None Present -Tunneling No -Undermining/Tunneling No -Circular Undermining No -Exudate Amt Medium -Exudate Type Serosanguineous -Wound Margin Distinct, Outline Attached -Granulation Amt None Present (0 %) -Granulation Quality N/A -Slough/Fibrin Yes -Necrosis Amt Large (67-100%) -Necrotic Tissue Type Adherent Slough -Structure Exposed N/A -Texture (Michelle-wound Skin Appearance) Assessed,Callus ,Localized Edema -Moisture (Michelle-wound Skin Appearance) No Abnormality, Assessed -Color (Michelle-wound Skin Appearance) No Abnormality, Assessed -Temperature (Michelle-wound Skin No Abnormality Appearance) (Pt Warm) -Tenderness on Palpation (Michelle-wound Yes Skin Appearance) -Ulcer Cleansing Rinsed/ Irrigated with Saline -Foul Odor after Cleansing No -Anesthetic Used 5% Lidocaine Gel #16 left great toe web space -Combined with other wound No -Current Size (cm) - Length 0.7 -Current Size (cm) - Width 0.4 -Current Size (cm) - Depth 0.1 -Total Square Cm 0.28 -Date of Last Picture (Recall this 06/08/21 field) -Photo Taken Yes -Epithelialization None Present -Tunneling No -Undermining/Tunneling No -Circular Undermining No -Exudate Amt Medium -Exudate Type Serosanguineous -Wound Margin Distinct, Outline Attached -Granulation Amt Large (67-100%) -Granulation Quality Red -Slough/Fibrin Yes -Necrosis Amt Small (1-33%) -Necrotic Tissue Type Adherent Slough -Structure Exposed N/A -Texture (Michelle-wound Skin Appearance) No Abnormality, Assessed -Moisture (Michelle-wound Skin Appearance) No Abnormality, Assessed -Color (Michelle-wound Skin Appearance) Assessed,Rubor -Temperature (Michelle-wound Skin No Abnormality Appearance) (Pt Warm) -Tenderness on Palpation (Michelle-wound No Skin Appearance) -Ulcer Cleansing Rinsed/ Irrigated with Saline -Foul Odor after Cleansing No -Anesthetic Used 5% Lidocaine Gel Lower Limb Edema Present Yes Right Calf (cm) 28.7 Right Ankle (cm) 18.8 Left Calf (cm) 29.8 Left Ankle (cm) 19.4 WC - Nurse 2 - General Ulcer CM Notes Start: 06/08/21 11:35 Freq: Status: Active Protocol: Activity Type Activity Date Activity User E-Sign Co-Sign Detail Recorded Client Recorded Date Recorded By Document 06/08/21 12:01 ASHLEY [id number] 06/08/21 12:10 ASHLEY 06/08/21 12:01 Wound Center Nurse 2 #17 left medial 2nd toe -Time 12:02 -Correct Patient Yes -Correct Side, Site, Position Yes -Correct Procedure Yes -Procedure Performed Yes -Type of Procedure Debridement -Clinical Debridement Subcutaneous -Tissue Removed Subcutaneous -Post Debridement (cm) - Length 0.5 -Post Debridement (cm) - Width 0.5 -Post Debridement (cm) - Depth 0.2 -Total Square (Post) (cm) 0.25 -Area of Debridement (cm) - Length 0.5 -Area of Debridement (cm) - Width 0.5 -Total Square (Area) (cm) 0.25 -Tunneling No -Undermining/Tunneling No -Circular Undermining No -Wound/Ulcer Outcome Not Healed -Ulcer Cleansing Rinsed/ Irrigated with Saline -Foul Odor after Cleansing Yes, Due to Product Use -Bioengineered Tissue No -Bleeding Controlled with Pressure -Offloading Yes -Type of Offloading Surgical Shoe -Treatment Response Procedure Tolerated Well -Debridement - Subq, 1st 20sq cm No #16 left great toe web space -Time 12:02 -Correct Patient Yes -Correct Side, Site, Position Yes -Correct Procedure Yes -Procedure Performed Yes -Type of Procedure Debridement -Clinical Debridement Subcutaneous -Tissue Removed Subcutaneous -Post Debridement (cm) - Length 0.8 -Post Debridement (cm) - Width 0.4 -Post Debridement (cm) - Depth 0.1 -Total Square (Post) (cm) 0.32 -Area of Debridement (cm) - Length 0.8 -Area of Debridement (cm) - Width 0.4 -Total Square (Area) (cm) 0.32 -Tunneling No -Undermining/Tunneling No -Circular Undermining No -Wound/Ulcer Outcome Not Healed -Ulcer Cleansing Wound Cleanser -Foul Odor after Cleansing No -Bioengineered Tissue No -Bleeding Controlled with Pressure -Offloading No -Treatment Response Procedure Tolerated Well -Debridement - Subq, 1st 20sq cm Yes Pain Scale: 0-10 Numeric Is Patient Pain Free? Yes Assessment/Plan Assessment/Plan (1) Polyneuropathy: CODE(S): G62.9 - Polyneuropathy, unspecified (2) Peripheral vascular disease, unspecified: CODE(S): I73.9 - Peripheral vascular disease, unspecified (3) Non-pressure chronic ulcer of other part of left foot with fat layer exposed: CODE(S): L97.522 - Non-pressure chronic ulcer of other part of left foot with fat layer exposed PLAN: Patient examined and evaluated all findings cussed with patient in detail. Patient's wounds were excisionally debrided down to including level of subcutaneous hemostasis of all nonviable tissue obtained with light compression, no anesthesia used due to peripheral neuropathy. Reviewed previous Doppler arterial exam results, they demonstrate diminished blood flow to left lower extremity. Since patient has new wound formation to the site I recommend vascular referral for additional recommendations regarding possible intervention per their discretion as I would like to use compression to help manage his edema. Wounds today were dressed with Betadine paint 4 x 4's, he will perform daily cleansing at this nursing facility with saline drying of the wound site and painting the wounds with Betadine paint applying 4 x 4's to maintain space between the first and second digits. He was dispensed a surgical shoe [id number] upon his visit today he will use this to offload his left lower extremity. At this time I recommend continued antibiotic management per infectious disease, but I have low concern for significant limb or life threatening infection. Patient will follow up in 1 week at which time we will consider any alterations in her dressing changes or management.
== END 2021-06-14 23:59 | disposition home or self-care (01) ==
LOC: WC 10:59
PROVIDERS: PCP Family Medicine; Visit Provider Podiatrist
DX: E13.42 Other specified diabetes mellitus with diabetic polyneuropathy (principal); E13.621 Other specified diabetes mellitus with foot ulcer; E13.51 Other specified diabetes mellitus with diabetic peripheral angiopathy without gangrene; L97.522 Non-pressure chronic ulcer of other part of left foot with fat layer exposed; I48.91 Unspecified atrial fibrillation; I25.10 Atherosclerotic heart disease of native coronary artery without angina pectoris; E78.5 Hyperlipidemia, unspecified; R60.0 Localized edema; I10 Essential (primary) hypertension; I25.2 Old myocardial infarction; K21.9 Gastro-esophageal reflux disease without esophagitis; G47.33 Obstructive sleep apnea (adult) (pediatric); Z87.442 Personal history of urinary calculi
CPT/HCPCS: 11042; 99213; G0463

== ENCOUNTER 2021-06-29 11:00 | Outpatient (RCR) | payer MEDICARE, OTHER, SELFPAY ==
[2021-06-15 00:42] VITALS: BP 138/81; PULSE 113; RESP 16; TEMP 36.3; BMI 23.2
[2021-06-15 10:53] VITALS: BP 111/71; PULSE 115; RESP 16; TEMP 36; BMI 23.2
--- NOTE | 2021-06-15 11:25 | PCM.WC.PN ---
History of Present Illness Date of Service: 06/15/21 Chief Complaint: Chronic right heel ulceration, left lower leg ulcer History of Wound: Joaquin is an 84-year-old male who presents to the clinic today with complaints of a left lower extremity ulcer, as well as a 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 He has a past medical history significant for CAD, PVD, peripheral neuropathy (Currently following up with neurology), and arthritis. Patient denies any rest pain or claudication at this time. Patient notes that nursing facility did not perform any dressing changes. Patient denies any constitutional symptoms and has no other complaints. Objective Data Objective Data Vital Signs: Vital Signs Temp Pulse Resp BP 96.8 F L 115 H 16 111/71 06/15/21 10:53 06/15/21 10:53 06/15/21 10:53 06/15/21 10:53 Oxygen Delivery Method Room Air Weight: 65.317 kg Body Mass Index (BMI) 23.2 Physical Exam Narrative Vascular: Dorsalis pedis posterior tibial pulses diminished to bilateral lower extremities skin is thin shiny atrophic no hair growth noted to bilateral lower extremities. +1 pitting edema noted to bilateral lower extremities limited to the perimalleoli regions. Delayed capillary fill time to left lower extremity. Neurologic: Light touch protective sensation absent to bilateral lower extremities Dermatologic: Focal ulceration full-thickness to dorsal medial second proximal interphalangeal joint, proximal aspect of the first interspace. Pre and post debridement measurements documented nursing notes. These wounds demonstrate mild periwound maceration, mild serous drainage. No signs of infection at this time. No deep probing. Musculoskeletal: No focal deformities, muscular strength diminished to 4 out of 5 to bilateral lower extremity compartments. No pain with calf squeeze bilaterally. No fluctuance or crepitus when palpating the wound or periwound areas. Debridement Note Debridement Note Post-Debridement Measurements and Additional Note: Post-Debridement Measurements/Treatment - Nurse 1 - General Ulcer Assessment Start: 06/15/21 10:53 Freq: Status: Active Protocol: SEAN Activity Type Activity Date Activity User E-Sign Co-Sign Detail Recorded Client Recorded Date Recorded By Document 06/15/21 10:53 [facility] [id number] 06/15/21 11:06 [facility] 06/15/21 10:53 - Today's Visit Information Type of service Follow-up Visit (Physician/CONCEPT ARTIST ) Arrival Mode Wheelchair Transfer Assistance Other Transfer Assist (Other) stand by assist Patient Identification Verified (Name & Yes ) Patient Requires Transmission-Based No Precautions Height and Weight Body Mass Index (BMI) 23.2 BMI Classification Normal Vital Signs Temperature (97.8 F-99.1 F) 96.8 F L Temperature Source Temporal Pulse Rate (60-100) 115 H Pulse Location Monitor Respiratory Rate (12-18) 16 Respiratory rate source Observation Oxygen Delivery Method Room Air Blood Pressure (90/60-120/80) 111/71 Blood Pressure Mean (mm Hg) 84 Source Monitor Position Sitting Blood Pressure Location Right Arm History Since Last Visit- (Skip if this is Patient's initial visit) Have you changed medications since your No last visit? Any new allergies or adverse reactions No Had a fall/change in ADL's that may No increase risk of falls Signs or symptoms of abuse and/or No neglect since last visit Have you been in the hospital since your No last visit? Has dressing in place as prescribed No Has compression in place as prescribed Yes Has offloadiing in place as prescribed Yes Experienced any changes in pain level or No management Left Footwear Surgical Shoe with pressure relief insole Right Footwear Regular Shoe Pain Scale: 0-10 Numeric Is Patient Pain Free? Yes WC - Nurse 1 - General Ulcer Measurement Start: 06/15/21 10:53 Freq: Status: Active Protocol: Activity Type Activity Date Activity User E-Sign Co-Sign Detail Recorded Client Recorded Date Recorded By Document 06/15/21 10:53 [facility] [id number] 06/15/21 11:06 [facility] 06/15/21 10:53 Wound Center Nurse 1 #17 left medial 2nd toe -Combined with other wound No -Current Size (cm) - Length 0.4 -Current Size (cm) - Width 0.4 -Current Size (cm) - Depth 0.3 -Total Square Cm 0.16 -Photo Taken No -Epithelialization None Present -Tunneling No -Undermining/Tunneling No -Circular Undermining No -Exudate Amt Medium -Exudate Type Serous -Wound Margin Distinct, Outline Attached -Granulation Amt None Present (0 %) -Slough/Fibrin Yes -Necrosis Amt Large (67-100%) -Necrotic Tissue Type Adherent Slough -Texture (Michelle-wound Skin Appearance) Assessed, Fluctuance, Localized Edema -Moisture (Michelle-wound Skin Appearance) Assessed -Color (Michelle-wound Skin Appearance) Assessed,Palor -Temperature (Michelle-wound Skin No Abnormality Appearance) (Pt Warm) -Tenderness on Palpation (Michelle-wound Yes Skin Appearance) -Ulcer Cleansing Rinsed/ Irrigated with Saline -Foul Odor after Cleansing No -Anesthetic Used 5% Lidocaine Gel #16 left great toe web space -Combined with other wound No -Current Size (cm) - Length 0.4 -Current Size (cm) - Width 0.1 -Current Size (cm) - Depth 0.2 -Total Square Cm 0.04 -Photo Taken No -Epithelialization None Present -Tunneling No -Undermining/Tunneling No -Circular Undermining No -Exudate Amt Small -Exudate Type Serous -Wound Margin Distinct, Outline Attached -Granulation Amt Large (67-100%) -Granulation Quality Red -Slough/Fibrin Yes -Necrosis Amt Small (1-33%) -Necrotic Tissue Type Adherent Slough -Texture (Michelle-wound Skin Appearance) Assessed, Fluctuance -Moisture (Michelle-wound Skin Appearance) Assessed, Maceration,Dry/ Scaly -Color (Michelle-wound Skin Appearance) Assessed -Temperature (Michelle-wound Skin No Abnormality Appearance) (Pt Warm) -Tenderness on Palpation (Michelle-wound Yes Skin Appearance) -Ulcer Cleansing Rinsed/ Irrigated with Saline -Foul Odor after Cleansing No -Anesthetic Used 5% Lidocaine Gel Lower Limb Edema Present Yes Left Calf (cm) 28.4 Left Ankle (cm) 19.2 WC - Nurse 2 - General Ulcer CM Notes Start: 06/15/21 10:53 Freq: Status: Active Protocol: Activity Type Activity Date Activity User E-Sign Co-Sign Detail Recorded Client Recorded Date Recorded By Document 06/15/21 11:17 ASHLEY [id number] 06/15/21 11:18 ASHLEY 06/15/21 11:17 Wound Center Nurse 2 #17 left medial 2nd toe -Time 11:17 -Correct Patient Yes -Correct Side, Site, Position Yes -Correct Procedure Yes -Procedure Performed Yes -Type of Procedure Debridement -Clinical Debridement Subcutaneous -Tissue Removed Subcutaneous -Post Debridement (cm) - Length 0.5 -Post Debridement (cm) - Width 0.4 -Post Debridement (cm) - Depth 0.3 -Total Square (Post) (cm) 0.20 -Area of Debridement (cm) - Length 0.5 -Area of Debridement (cm) - Width 0.4 -Total Square (Area) (cm) 0.20 -Tunneling No -Undermining/Tunneling No -Circular Undermining No -Wound/Ulcer Outcome Not Healed -Ulcer Cleansing Rinsed/ Irrigated with Saline -Foul Odor after Cleansing No -Bioengineered Tissue No -Bleeding Controlled with Pressure -Offloading Yes -Type of Offloading Surgical Shoe -Treatment Response Procedure Tolerated Well -Debridement - Subq, 1st 20sq cm Yes #16 left great toe web space -Time 11:17 -Correct Patient Yes -Correct Side, Site, Position Yes -Correct Procedure Yes -Procedure Performed Yes -Type of Procedure Debridement -Clinical Debridement Subcutaneous -Tissue Removed Subcutaneous -Post Debridement (cm) - Length 0.5 -Post Debridement (cm) - Width 0.2 -Post Debridement (cm) - Depth 0.2 -Total Square (Post) (cm) 0.10 -Area of Debridement (cm) - Length 0.5 -Area of Debridement (cm) - Width 0.2 -Total Square (Area) (cm) 0.10 -Tunneling No -Undermining/Tunneling No -Circular Undermining No -Wound/Ulcer Outcome Not Healed -Ulcer Cleansing Rinsed/ Irrigated with Saline -Foul Odor after Cleansing No -Bioengineered Tissue No -Bleeding Controlled with Pressure -Offloading Yes -Type of Offloading Surgical Shoe -Treatment Response Procedure Tolerated Well -Debridement - Subq, 1st 20sq cm No Pain Scale: 0-10 Numeric Is Patient Pain Free? Yes Assessment/Plan Assessment/Plan (1) Non-pressure chronic ulcer of other part of left foot with fat layer exposed: CODE(S): L97.522 - Non-pressure chronic ulcer of other part of left foot with fat layer exposed PLAN: Patient examined and evaluated all findings cussed with patient in detail. Patient's wounds were excisionally debrided down to including level of subcutaneous hemostasis of all nonviable tissue obtained with light compression, no anesthesia used due to peripheral neuropathy. Reviewed previous Doppler arterial exam results, they demonstrate diminished blood flow to left lower extremity. Since patient has new wound formation to the site I recommend vascular referral for additional recommendations regarding possible intervention per their discretion as I would like to use compression to help manage his edema. Wounds today were dressed with Betadine paint 4 x 4's, he will perform daily cleansing at this nursing facility with saline drying of the wound site and painting the wounds with Betadine paint applying 4 x 4's to maintain space between the first and second digits. Continue ambulation and surgical shoe. Patient will follow up in 1 week at which time we will consider any alterations in her dressing changes or management. (2) Peripheral vascular disease, unspecified: CODE(S): I73.9 - Peripheral vascular disease, unspecified (3) Polyneuropathy: CODE(S): G62.9 - Polyneuropathy, unspecified
--- NOTE | 2021-06-25 13:49 | ART_ITS ---
Reason For Study: Foot ulcer Procedure A bilateral lower extremity continuous wave Doppler with analog waveform analysis,segmental pressures,and ankle brachial indexes without exercise. Left Segmental Pressures Left brachial= 95mmHg. Left thigh = >254mmHg. Left calf = 36mmHg. Left posterior tibial artery = 48mmHg. Left dorsalis pedis artery = 13mmHg. The left dorsalis pedis waveforms are monophasic. The left posterior tibial artery waveforms are monophasic. Right Segmental Pressures Right brachial= 100mmHg. Right thigh = 78mmHg. Right calf = 59mmHg. Right dorsalis pedis artery = 43mmHg. Right digit = 40 mmHg. The right dorsalis pedis waveforms are biphasic. The right posterior tibial artery waveforms are absent. Indices The right ankle brachial index by the dorsalis pedis is 0.43. The right digital-brachial index is 0.40. The left ankle brachial index by the dorsalis pedis is 0.13. The left ankle brachial index by the posterior tibial artery is 0.48. VL/Lower Ext Art Exam w/o Exercis Interpretation Summary Bilateral lower extremities with moderate occlusive disease with an RALPH 0.43 on the right with biphasic flow and 0.48 on the left with monophasic flow. Digit brachial index o n the right at 0.4. Ordering Physician: Jad Acosta Referring Physician: Noe Weeks Performed By: Paradise Sahu RVT
[2021-06-29 11:17] VITALS: BP 125/83; PULSE 113; RESP 16; TEMP 36.1; BMI 23.2
--- NOTE | 2021-06-29 11:31 | PN.PCM_ITS ---
History of Present Illness Date of Service: 06/29/21 Chief Complaint: Chronic right heel ulceration, left lower leg ulcer History of Wound: Joaquin is an 84-year-old male who presents to the clinic today with complaints of a left lower extremity ulcer, as well as a 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 He has a past medical history significant for CAD, PVD, peripheral neuropathy (Currently following up with neurology), and arthritis. Patient denies any rest pain or claudication at this time. Patient notes that nursing facility did not perform any dressing changes. Patient denies any changes at this time to his wound sites. Patient awaiting vascular surgery evaluation tomorrow. Patient denies any constitutional symptoms and has no other complaints. Objective Data Objective Data Vital Signs: Vital Signs Temp Pulse Resp BP 96.9 F L 113 H 16 125/83 H 06/29/21 11:17 06/29/21 11:17 06/29/21 11:17 06/29/21 11:17 Oxygen Delivery Method Room Air Weight: 65.317 kg Body Mass Index (BMI) 23.2 Radiography Diagnostic Testing: Radiology Impression Extremity Arterial Study 06/25/21 13:49 Interpretation Summary Bilateral lower extremities with moderate occlusive disease with an RALPH 0.43 on the right with biphasic flow and 0.48 on the left with monophasic flow. Digit brachial index on the right at 0.4. Ordering Physician: Jad Acosta Referring Physician: Noe Weeks Performed By: Paradise Sahu RVT Physical Exam Narrative Vascular: Dorsalis pedis posterior tibial pulses diminished to bilateral lower extremities skin is thin shiny atrophic no hair growth noted to bilateral lower extremities. +1 pitting edema noted to bilateral lower extremities limited to the perimalleoli regions. Delayed capillary fill time to left lower extremity. Neurologic: Light touch protective sensation absent to bilateral lower extremities Dermatologic: Focal ulceration full-thickness to dorsal medial second proximal interphalangeal joint, proximal aspect of the first interspace. Pre and post debridement measurements documented nursing notes. These wounds demonstrate mild periwound maceration, mild serous drainage. No signs of infection at this time. No deep probing. Musculoskeletal: No focal deformities, muscular strength diminished to 4 out of 5 to bilateral lower extremity compartments. No pain with calf squeeze bilaterally. No fluctuance or crepitus when palpating the wound or periwound areas. Debridement Note Debridement Note Post-Debridement Measurements and Additional Note: Post-Debridement Measurements/Treatment - Nurse 1 - General Ulcer Assessment Start: 06/15/21 10:53 Freq: Status: Active Protocol: SEAN Activity Type Activity Date Activity User E-Sign Co-Sign Detail Recorded Client Recorded Date Recorded By Document 06/15/21 10:53 [facility] [id number] 06/15/21 11:06 [facility] Document 06/29/21 11:17 [facility] [id number] 06/29/21 11:21 [facility] 06/15/21 06/29/21 10:53 11:17 - Today's Visit Information Type of service Follow-up Visit Follow-up Visit (Physician/[employer] W[employer]OWS ENGINEER (Physician/[employer] WINDOWS ENGINEER ) ) Arrival Mode Wheelchair Wheelchair Transfer Assistance Other None Transfer Assist (Other) stand by assist Patient Identification Verified (Name & Yes Yes ) Patient Requires Transmission-Based No No Precautions Height and Weight Body Mass Index (BMI) 23.2 23.2 BMI Classification Normal Normal Vital Signs Temperature (97.8 F-99.1 F) 96.8 F L 96.9 F L Temperature Source Temporal Temporal Pulse Rate (60-100) 115 H 113 H Pulse Location Monitor Monitor Respiratory Rate (12-18) 16 16 Respiratory rate source Observation Observation Oxygen Delivery Method Room Air Room Air Blood Pressure (90/60-120/80) 111/71 125/83 H Blood Pressure Mean (mm Hg) 84 97 Source Monitor Monitor Position Sitting Sitting Blood Pressure Location Right Arm Left Arm History Since Last Visit- (Skip if this is Patient's initial visit) Have you changed medications since your No No last visit? Any new allergies or adverse reactions No No Had a fall/change in ADL's that may No No increase risk of falls Signs or symptoms of abuse and/or No No neglect since last visit Have you been in the hospital since your No No last visit? Has dressing in place as prescribed No No Has compression in place as prescribed Yes N/A Has offloadiing in place as prescribed Yes Yes Experienced any changes in pain level or No No management Left Footwear Surgical Shoe Surgical Shoe with pressure with pressure relief insole relief insole Right Footwear Regular Shoe Regular Shoe Pain Scale: 0-10 Numeric Is Patient Pain Free? Yes Yes WC - Nurse 1 - General Ulcer Measurement Start: 06/15/21 10:53 Freq: Status: Active Protocol: Activity Type Activity Date Activity User E-Sign Co-Sign Detail Recorded Client Recorded Date Recorded By Document 06/15/21 10:53 [facility] [id number] 06/15/21 11:06 [facility] Document 06/29/21 11:17 [facility] [id number] 06/29/21 11:21 [facility] 06/15/21 06/29/21 10:53 11:17 Wound Center Nurse 1 #17 left medial 2nd toe -Combined with other wound No No -Current Size (cm) - Length 0.4 0.5 -Current Size (cm) - Width 0.4 0.6 -Current Size (cm) - Depth 0.3 0.1 -Total Square Cm 0.16 0.30 -Photo Taken No No -Epithelialization None Present None Present -Tunneling No No -Undermining/Tunneling No No -Circular Undermining No No -Exudate Amt Medium None Present -Exudate Type Serous -Wound Margin Distinct, Distinct, Outline Outline Attached Attached -Granulation Amt None Present (0 None Present (0 %) %) -Slough/Fibrin Yes Yes -Necrosis Amt Large (67-100%) Large (67-100%) -Necrotic Tissue Type Adherent Slough Adherent Slough -Texture (Michelle-wound Skin Appearance) Assessed, Assessed, Fluctuance, Scarring Localized Edema -Moisture (Michelle-wound Skin Appearance) Assessed Assessed,Dry/ Scaly -Color (Michelle-wound Skin Appearance) Assessed,Palor Assessed -Temperature (Michelle-wound Skin No Abnormality No Abnormality Appearance) (Pt Warm) (Pt Warm) -Tenderness on Palpation (Michelle-wound Yes No Skin Appearance) -Ulcer Cleansing Rinsed/ Rinsed/ Irrigated with Irrigated with Saline Saline -Foul Odor after Cleansing No No -Anesthetic Used 5% Lidocaine 5% Lidocaine Gel Gel #16 left great toe web space -Combined with other wound No No -Current Size (cm) - Length 0.4 0.2 -Current Size (cm) - Width 0.1 0.5 -Current Size (cm) - Depth 0.2 0.1 -Total Square Cm 0.04 0.10 -Photo Taken No No -Epithelialization None Present None Present -Tunneling No No -Undermining/Tunneling No No -Circular Undermining No No -Exudate Amt Small None Present -Exudate Type Serous -Wound Margin Distinct, Distinct, Outline Outline Attached Attached -Granulation Amt Large (67-100%) None Present (0 %) -Granulation Quality Red -Slough/Fibrin Yes Yes -Necrosis Amt Small (1-33%) Large (67-100%) -Necrotic Tissue Type Adherent Slough Adherent Slough -Texture (Michelle-wound Skin Appearance) Assessed, Assessed, Fluctuance Scarring -Moisture (Michelle-wound Skin Appearance) Assessed, Assessed Maceration,Dry/ Scaly -Color (Michelle-wound Skin Appearance) Assessed Assessed -Temperature (Michelle-wound Skin No Abnormality No Abnormality Appearance) (Pt Warm) (Pt Warm) -Tenderness on Palpation (Michelle-wound Yes No Skin Appearance) -Ulcer Cleansing Rinsed/ Rinsed/ Irrigated with Irrigated with Saline Saline -Foul Odor after Cleansing No No -Anesthetic Used 5% Lidocaine 5% Lidocaine Gel Gel Lower Limb Edema Present Yes Left Calf (cm) 28.4 30 Left Ankle (cm) 19.2 19.4 WC - Nurse 2 - General Ulcer CM Notes Start: 06/15/21 10:53 Freq: Status: Active Protocol: Activity Type Activity Date Activity User E-Sign Co-Sign Detail Recorded Client Recorded Date Recorded By Document 06/15/21 11:17 [id number] 06/15/21 11:18 JF Document 06/29/21 11:22 MW [id number] 06/29/21 11:28 MW 06/15/21 06/29/21 11:17 11:22 Wound Center Nurse 2 #17 left medial 2nd toe -Time 11:17 11:23 -Correct Patient Yes Yes -Correct Side, Site, Position Yes Yes -Correct Procedure Yes Yes -Procedure Performed Yes No -Type of Procedure Debridement -Clinical Debridement Subcutaneous -Tissue Removed Subcutaneous -Post Debridement (cm) - Length 0.5 0.5 -Post Debridement (cm) - Width 0.4 0.6 -Post Debridement (cm) - Depth 0.3 0.1 -Total Square (Post) (cm) 0.20 0.30 -Area of Debridement (cm) - Length 0.5 -Area of Debridement (cm) - Width 0.4 -Total Square (Area) (cm) 0.20 -Tunneling No No -Undermining/Tunneling No No -Circular Undermining No No -Wound/Ulcer Outcome Not Healed Not Healed -Ulcer Cleansing Rinsed/ Irrigated with Saline -Foul Odor after Cleansing No -Bioengineered Tissue No -Bleeding Controlled with Pressure -Offloading Yes -Type of Offloading Surgical Shoe -Treatment Response Procedure Tolerated Well -Debridement - Subq, 1st 20sq cm Yes #16 left great toe web space -Time 11:17 11:28 -Correct Patient Yes Yes -Correct Side, Site, Position Yes Yes -Correct Procedure Yes Yes -Procedure Performed Yes No -Type of Procedure Debridement -Clinical Debridement Subcutaneous -Tissue Removed Subcutaneous -Post Debridement (cm) - Length 0.5 0.2 -Post Debridement (cm) - Width 0.2 0.5 -Post Debridement (cm) - Depth 0.2 0.1 -Total Square (Post) (cm) 0.10 0.10 -Area of Debridement (cm) - Length 0.5 -Area of Debridement (cm) - Width 0.2 -Total Square (Area) (cm) 0.10 -Tunneling No No -Undermining/Tunneling No No -Circular Undermining No No -Wound/Ulcer Outcome Not Healed Not Healed -Ulcer Cleansing Rinsed/ Irrigated with Saline -Foul Odor after Cleansing No -Bioengineered Tissue No -Bleeding Controlled with Pressure -Offloading Yes -Type of Offloading Surgical Shoe -Treatment Response Procedure Tolerated Well -Debridement - Subq, 1st 20sq cm No Pain Scale: 0-10 Numeric Is Patient Pain Free? Yes Yes WC - Nurse 3 - General Ulcer D/C NN Start: 06/15/21 10:53 Freq: Status: Active Protocol: Activity Type Activity Date Activity User E-Sign Co-Sign Detail Recorded Client Recorded Date Recorded By Document 06/15/21 11:26 [id number] 06/15/21 11:27 JF Document 06/29/21 11:29 MW [id number] 06/29/21 11:30 MW 06/15/21 06/29/21 11:26 11:29 Wound Care Nurse 3 #17 left medial 2nd toe -Ulcer Cleansing Rinsed/ Irrigated with Saline -Foul Odor after Cleansing No -Other Dressing betadine BETADINE -Primary Dressing Covered/Secured with Dry Gauze Dry Gauze & Roll Gauze, Secured with Tape #16 left great toe web space -Ulcer Cleansing Rinsed/ Rinsed/ Irrigated with Irrigated with Saline Saline -Foul Odor after Cleansing No No -Negative Pressure Wound Therapy N/A -Other Dressing betadine BETADINE -Primary Dressing Covered/Secured with Dry Gauze Dry Gauze & Roll Gauze, Secured with Tape Left -Tubular Bandage Single Layer -Size of Tubigrip Used Size C -Size C ($) 1 Right -Tubular Bandage Single Layer -Size of Tubigrip Used Size C -Size C ($) 1 Treatment Response Procedure Tolerated Well Pain Scale: 0-10 Numeric Is Patient Pain Free? Yes Yes Teaching: Wound Center Dressing Your Wound -Person Taught Patient -Teaching Method Discussion -Response to teaching Verbalize understanding WC - Visit Discharge Discharge Condition Stable Stable Ambulatory Status Wheelchair Wheelchair Transportation Private Auto Private Auto Accompanied by TRANSPORT SERVICE Medication Reconcilliation completed & Yes No provided to patient/care provider Clinical Summary of Care Provided Yes Yes Assessment/Plan Assessment/Plan (1) Non-pressure chronic ulcer of other part of left foot with fat layer exposed: CODE(S): L97.522 - Non-pressure chronic ulcer of other part of left foot with fat layer exposed PLAN: Patient examined and evaluated all findings cussed with patient in detail. No debridement performed this week due to severe peripheral arterial disease. Noninvasive vascular studies demonstrate significantly decreased ABIs to bilateral ankles. Patient has a vascular surgery appointment with Dr. Rose 06/30/2021 at 8:30 AM. We will await his evaluation and see if he will plan to perform any intervention to revascularize bilateral lower extremity. It was discussed with patient that there is always a chance that he may not be able to return blood flow to the site. Until that will time we will continue simple dressing changes with Betadine paint and sterile 4 x 4 to keep the interspaces clean. Wound is not infected is very dry and will likely only improve with vascular intervention. Patient will follow up in 2 weeks at which time we will consider other treatment options. (2) Peripheral vascular disease, unspecified: CODE(S): I73.9 - Peripheral vascular disease, unspecified (3) Polyneuropathy: CODE(S): G62.9 - Polyneuropathy, unspecified
== END 2021-07-15 23:59 | disposition home or self-care (01) ==
LOC: WC 11:00
PROVIDERS: PCP Family Medicine; Referring Provider Podiatrist; Visit Provider Podiatrist
DX: L97.522 Non-pressure chronic ulcer of other part of left foot with fat layer exposed (principal); L97.919 Non-pressure chronic ulcer of unspecified part of right lower leg with unspecified severity; I73.9 Peripheral vascular disease, unspecified; G62.9 Polyneuropathy, unspecified; I25.10 Atherosclerotic heart disease of native coronary artery without angina pectoris
CPT/HCPCS: 11042; 93923; 99213; G0463

== ENCOUNTER 2021-08-10 11:00 | Outpatient (RCR) | payer MEDICARE, OTHER, SELFPAY ==
[2021-07-16 00:41] VITALS: BP 125/83; PULSE 113; RESP 16; TEMP 36.1; BMI 23.2
[2021-07-29 11:06] VITALS: BP 169/67; PULSE 132; TEMP 35.9; BMI 23.2
--- NOTE | 2021-07-29 11:31 | PN.PCM_ITS ---
History of Present Illness Date of Service: 07/29/21 Chief Complaint: Chronic right heel ulceration, left lower leg ulcer History of Wound: Joaquin is an 84-year-old male who presents to the clinic today with complaints of a left lower extremity ulcer, as well as a 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 He has a past medical history significant for CAD, PVD, peripheral neuropathy (Currently following up with neurology), and arthritis. Patient denies any rest pain or claudication at this time. Patient notes that nursing facility did not perform any dressing changes. Patient denies any changes at this time to his wound sites. Patient awaiting vascular surgery evaluation tomorrow. Patient denies any constitutional symptoms and has no other complaints. Patient was taken for an angiogram at [facility] by Dr. Rose. Per patient's report Dr. Rose was unable to transverse the popliteal fossa into the distal arteries. Patient will require another attempt at angiogram to see if there is ability to revascularize the left lower extremity as he has severe arterial disease. Objective Data Objective Data Vital Signs: Vital Signs Temp Pulse Resp BP 96.7 F L 132 H 16 169/67 H 07/29/21 11:06 07/29/21 11:06 07/16/21 00:41 07/29/21 11:06 Weight: 65.317 kg Body Mass Index (BMI) 23.2 Physical Exam Narrative Vascular: Dorsalis pedis posterior tibial pulses diminished to bilateral lower extremities skin is thin shiny atrophic no hair growth noted to bilateral lower extremities. +1 pitting edema noted to bilateral lower extremities limited to the perimalleoli regions. Delayed capillary fill time to left lower extremity. Neurologic: Light touch protective sensation absent to bilateral lower extremities Dermatologic: Focal ulceration full-thickness to dorsal medial second proximal interphalangeal joint, proximal aspect of the first interspace. Pre and post debridement measurements documented nursing notes. These wounds demonstrate mild periwound maceration, mild serous drainage. No signs of infection at this time. No deep probing. Musculoskeletal: No focal deformities, muscular strength diminished to 4 out of 5 to bilateral lower extremity compartments. No pain with calf squeeze bilaterally. No fluctuance or crepitus when palpating the wound or periwound areas. Debridement Note Debridement Note Post-Debridement Measurements and Additional Note: Post-Debridement Measurements/Treatment WC - Nurse 1 - General Ulcer Assessment Start: 07/29/21 11:06 Freq: Status: Active Protocol: SEAN Activity Type Activity Date Activity User E-Sign Co-Sign Detail Recorded Client Recorded Date Recorded By Document 07/29/21 11:06 TIANA [id number] 07/29/21 11:08 TIANA 07/29/21 11:06 - Today's Visit Information Type of service Follow-up Visit (Physician/PUBLIC HEALTH REGISTRAR ) Arrival Mode Wheelchair Patient Identification Verified (Name & Yes ) Height and Weight Body Mass Index (BMI) 23.2 BMI Classification Normal Vital Signs Temperature (97.8 F-99.1 F) 96.7 F L Temperature Source Temporal Pulse Rate (60-100) 132 H Pulse Location Monitor Blood Pressure (90/60-120/80) 169/67 H Blood Pressure Mean (mm Hg) 101 Source Monitor Position Semi-Fowlers Blood Pressure Location Right Arm History Since Last Visit- (Skip if this is Patient's initial visit) Have you changed medications since your No last visit? Any new allergies or adverse reactions No Had a fall/change in ADL's that may No increase risk of falls Signs or symptoms of abuse and/or No neglect since last visit Have you been in the hospital since your No last visit? Has dressing in place as prescribed Yes Has compression in place as prescribed N/A Has offloadiing in place as prescribed N/A Experienced any changes in pain level or No management Left Footwear Regular Shoe Right Footwear Regular Shoe Pain Scale: 0-10 Numeric Is Patient Pain Free? Yes - Nurse 1 - General Ulcer Measurement Start: 07/29/21 11:06 Freq: Status: Active Protocol: Activity Type Activity Date Activity User E-Sign Co-Sign Detail Recorded Client Recorded Date Recorded By Document 07/29/21 11:06 TIANA [id number] 07/29/21 11:08 TIANA 07/29/21 11:06 Wound Center Nurse 1 #16 left great toe web space -Current Size (cm) - Length 0.5 -Current Size (cm) - Width 0.6 -Current Size (cm) - Depth 0.1 -Total Square Cm 0.30 -Exudate Amt Small -Exudate Type Yellow/Green -Wound Margin Distinct, Outline Attached -Granulation Amt None Present (0 %) -Necrosis Amt Small (1-33%) -Necrotic Tissue Type Adherent Slough -Texture (Michelle-wound Skin Appearance) Assessed, Scarring -Moisture (Michelle-wound Skin Appearance) No Abnormality, Assessed -Color (Michelle-wound Skin Appearance) No Abnormality, Assessed -Temperature (Michelle-wound Skin No Abnormality Appearance) (Pt Warm) -Tenderness on Palpation (Michelle-wound No Skin Appearance) -Ulcer Cleansing Rinsed/ Irrigated with Saline -Foul Odor after Cleansing No -Anesthetic Used 5% Lidocaine Gel Assessment/Plan Assessment/Plan (1) Non-pressure chronic ulcer of other part of left foot with fat layer exposed: CODE(S): L97.522 - Non-pressure chronic ulcer of other part of left foot with fat layer exposed PLAN: Patient examined and evaluated all findings discussed with patient in detail. No debridement performed this week due to severe peripheral arterial disease. Noninvasive vascular studies demonstrate significantly decreased ABIs to bilateral ankles. Per patient report Dr. Rose was unable to revascularize left lower extremity. We will request the op report from [facility] for additional detail. Patient is awaiting reattempt at revascularization otherwise he may require a more proximal amputation. Until that will time we will continue simple dressing changes with Betadine paint and sterile 4 x 4 to keep the interspaces clean. Wound is not infected is very dry and will likely only improve with vascular intervention. Patient will follow up in 2-3 weeks at which time we will consider other treatment options. He should offload left foot with a surgical shoe and heel weightbearing assisted with a walker. No debridement performed today. (2) Peripheral vascular disease, unspecified: CODE(S): I73.9 - Peripheral vascular disease, unspecified
[2021-08-10 11:39] VITALS: BP 121/52; PULSE 62; RESP 16; TEMP 35.9; BMI 23.2
--- NOTE | 2021-08-10 12:15 | PN.PCM_ITS ---
History of Present Illness Date of Service: 08/10/21 Chief Complaint: Chronic right heel ulceration, left lower leg ulcer History of Wound: Joaquin is an 84-year-old male who presents to the clinic today with complaints of a left lower extremity ulcer, as well as a 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 He has a past medical history significant for CAD, PVD, peripheral neuropathy (Currently following up with neurology), and arthritis. Patient denies any rest pain or claudication at this time. Patient notes that nursing facility did not perform any dressing changes. Patient denies any changes at this time to his wound sites. Patient awaiting vascular surgery evaluation tomorrow. Patient denies any constitutional symptoms and has no other complaints. Patient was taken for an angiogram at [facility] by Dr. Rose. Per patient's report Dr. Rose was unable to transverse the popliteal fossa into the distal arteries. Patient will require another attempt at angiogram to see if there is ability to revascularize the left lower extremity as he has severe arterial disease. Patient is to follow-up with Dr. Rose on 08/18/2021. Objective Data Objective Data Vital Signs: Vital Signs Temp Pulse Resp BP 96.6 F L 62 16 121/52 H 08/10/21 11:39 08/10/21 11:39 08/10/21 11:39 08/10/21 11:39 Oxygen Delivery Method Room Air Weight: 65.317 kg Body Mass Index (BMI) 23.2 Physical Exam Narrative Vascular: Dorsalis pedis posterior tibial pulses diminished to bilateral lower extremities skin is thin shiny atrophic no hair growth noted to bilateral lower extremities. +1 pitting edema noted to bilateral lower extremities limited to the perimalleoli regions. Delayed capillary fill time to left lower extremity. Neurologic: Light touch protective sensation absent to bilateral lower extremities Dermatologic: Focal ulceration full-thickness to dorsal medial second proximal interphalangeal joint, proximal aspect of the first interspace. Pre and post debridement measurements documented nursing notes. These wounds demonstrate mild periwound maceration, mild serous drainage. No signs of infection at this time. No deep probing. Musculoskeletal: No focal deformities, muscular strength diminished to 4 out of 5 to bilateral lower extremity compartments. No pain with calf squeeze bilaterally. No fluctuance or crepitus when palpating the wound or periwound areas. Debridement Note Debridement Note Post-Debridement Measurements and Additional Note: Post-Debridement Measurements/Treatment DULCE MARIA - Nurse 1 - General Ulcer Assessment Start: 07/29/21 11:06 Freq: Status: Active Protocol: SEAN Activity Type Activity Date Activity User E-Sign Co-Sign Detail Recorded Client Recorded Date Recorded By Document 07/29/21 11:06 KR [id number] 07/29/21 11:08 KR Document 08/10/21 11:39 MW [id number] 08/10/21 11:42 MW 07/29/21 08/10/21 11:06 11:39 WC - Today's Visit Information Type of service Follow-up Visit Follow-up Visit (Physician/GOVERNMENT OPERATIONS CONSULTANT (Physician/GOVERNMENT OPERATIONS CONSULTANT ) ) Arrival Mode Wheelchair Wheelchair Transfer Assistance Manual Accompanied by self Patient Identification Verified (Name & Yes Yes ) Patient Requires Transmission-Based No Precautions Safety Precautions NA Height and Weight Body Mass Index (BMI) 23.2 23.2 BMI Classification Normal Normal Vital Signs Temperature (97.8 F-99.1 F) 96.7 F L 96.6 F L Temperature Source Temporal Temporal Pulse Rate (60-100) 132 H 62 Pulse Location Monitor Monitor Respiratory Rate (12-18) 16 Respiratory rate source Observation Oxygen Delivery Method Room Air Blood Pressure (90/60-120/80) 169/67 H 121/52 H Blood Pressure Mean (mm Hg) 101 75 Source Monitor Monitor Position Semi-Fowlers Sitting Blood Pressure Location Right Arm Left Arm History Since Last Visit- (Skip if this is Patient's initial visit) Have you changed medications since your No No last visit? Any new allergies or adverse reactions No No Had a fall/change in ADL's that may No No increase risk of falls Signs or symptoms of abuse and/or No No neglect since last visit Have you been in the hospital since your No No last visit? Has dressing in place as prescribed Yes Yes Has compression in place as prescribed N/A N/A Has offloadiing in place as prescribed N/A N/A Experienced any changes in pain level or No No management Left Footwear Regular Shoe Regular Shoe Right Footwear Regular Shoe Regular Shoe Pain Scale: 0-10 Numeric Is Patient Pain Free? Yes Yes DULCE MARIA Mathis Nurse 1 - General Ulcer Measurement Start: 07/29/21 11:06 Freq: Status: Active Protocol: Activity Type Activity Date Activity User E-Sign Co-Sign Detail Recorded Client Recorded Date Recorded By Document 07/29/21 11:06 KR [id number] 07/29/21 11:08 KR Document 08/10/21 11:39 MW [id number] 08/10/21 11:42 MW 07/29/21 08/10/21 11:06 11:39 Wound Center Nurse 1 #17 left medial 2nd toe -Combined with other wound No -Current Size (cm) - Length 0.1 -Current Size (cm) - Width 0.1 -Current Size (cm) - Depth 0.1 -Total Square Cm 0.01 -Photo Taken No -Epithelialization None Present -Tunneling No -Undermining/Tunneling No -Circular Undermining No -Exudate Amt None Present -Wound Margin Flat & Intact -Granulation Amt None Present (0 %) -Granulation Quality N/A,[place] -Necrosis Amt None Present (0 %) -Structure Exposed N/A -Texture (Michelle-wound Skin Appearance) Assessed, Localized Edema -Moisture (Michelle-wound Skin Appearance) No Abnormality, Assessed -Color (Michelle-wound Skin Appearance) No Abnormality, Assessed -Temperature (Michelle-wound Skin No Abnormality Appearance) (Pt Warm) -Tenderness on Palpation (Michelle-wound Yes Skin Appearance) -Ulcer Cleansing Rinsed/ Irrigated with Saline -Foul Odor after Cleansing No -Anesthetic Used 4% Lidocaine Solution #16 left great toe web space -Combined with other wound No -Current Size (cm) - Length 0.5 1.5 -Current Size (cm) - Width 0.6 1.0 -Current Size (cm) - Depth 0.1 0.1 -Total Square Cm 0.30 1.50 -Photo Taken No -Epithelialization None Present -Tunneling No -Undermining/Tunneling No -Circular Undermining No -Exudate Amt Small Small -Exudate Type Yellow/Green Serosanguineous -Wound Margin Distinct, Flat & Intact Outline Attached -Granulation Amt None Present (0 Small (1-33%) %) -Granulation Quality [place] -Slough/Fibrin Yes -Necrosis Amt Small (1-33%) Medium (34-66%) -Necrotic Tissue Type Adherent Slough Adherent Slough -Structure Exposed N/A -Texture (Michelle-wound Skin Appearance) Assessed, Assessed, Scarring Localized Edema -Moisture (Michelle-wound Skin Appearance) No Abnormality, No Abnormality, Assessed Assessed -Color (Michelle-wound Skin Appearance) No Abnormality, No Abnormality, Assessed Assessed -Temperature (Michelle-wound Skin No Abnormality No Abnormality Appearance) (Pt Warm) (Pt Warm) -Tenderness on Palpation (Michelle-wound No No Skin Appearance) -Ulcer Cleansing Rinsed/ Rinsed/ Irrigated with Irrigated with Saline Saline -Foul Odor after Cleansing No No -Anesthetic Used 5% Lidocaine 4% Lidocaine Gel Solution Lower Limb Edema Present No WC - Nurse 2 - General Ulcer CM Notes Start: 07/29/21 11:06 Freq: Status: Active Protocol: Activity Type Activity Date Activity User E-Sign Co-Sign Detail Recorded Client Recorded Date Recorded By Document 07/29/21 11:25 MW [id number] 07/29/21 11:31 MW Document 08/10/21 12:10 [id number] 08/10/21 12:10 07/29/21 08/10/21 11:25 12:10 Wound Center Nurse 2 #17 left medial 2nd toe -Time 11:27 -Correct Patient Yes No -Correct Side, Site, Position Yes No -Correct Procedure Yes No -Procedure Performed No No -Wound/Ulcer Outcome Not Healed Not Healed #16 left great toe web space -Time 11:27 -Correct Patient Yes No -Correct Side, Site, Position Yes No -Correct Procedure Yes No -Procedure Performed No No -Wound/Ulcer Outcome Not Healed Not Healed Pain Scale: 0-10 Numeric Is Patient Pain Free? Yes Yes DULCE MARIA - Nurse 3 - General Ulcer D/C NN Start: 07/29/21 11:06 Freq: Status: Active Protocol: Activity Type Activity Date Activity User E-Sign Co-Sign Detail Recorded Client Recorded Date Recorded By Document 07/29/21 11:44 DL [id number] 07/29/21 11:45 DL 07/29/21 11:44 Wound Care Nurse 3 #17 left medial 2nd toe -Ulcer Cleansing Soap and Water -Foul Odor after Cleansing No -Other Dressing betadine -Primary Dressing Covered/Secured with Dry Gauze & Roll Gauze, Secured with Tape #16 left great toe web space -Ulcer Cleansing Soap and Water -Foul Odor after Cleansing No -Other Dressing betadine -Primary Dressing Covered/Secured with Dry Gauze & Roll Gauze, Secured with Tape Treatment Response Procedure Tolerated Well Pain Scale: 0-10 Numeric Is Patient Pain Free? Yes WC - Visit Discharge Discharge Condition Stable Ambulatory Status Wheelchair Transportation Private Auto Facility Type Care Home Care Facility Orders Sent Yes Assessment/Plan Assessment/Plan (1) Non-pressure chronic ulcer of other part of left foot with fat layer exposed: CODE(S): L97.522 - Non-pressure chronic ulcer of other part of left foot with fat layer exposed PLAN: Patient examined and evaluated all findings discussed with patient in detail. No debridement performed this week due to severe peripheral arterial disease. Noninvasive vascular studies demonstrate significantly decreased ABIs to bilateral ankles. Per patient report Dr. Rose was unable to revascularize left lower extremity. We will request the op report from [facility] for additional detail. Patient is awaiting reattempt at revascularization otherwise he may require a more proximal amputation. Until that will time we will continue simple dressing changes with Betadine paint and sterile 4 x 4 to keep the interspaces clean. He is following up with Dr. Rose on 08/18/2021. Patient will follow up in 2-3 weeks at which time we will consider other treatment options. He should offload left foot with a surgical shoe and heel weightbearing assisted with a walker. There should be continued application of Betadine paint to interdigital space to prevent any development of infection or worsening of his wound. No debridement performed today. (2) Peripheral vascular disease, unspecified: CODE(S): I73.9 - Peripheral vascular disease, unspecified
== END 2021-08-14 23:59 | disposition home or self-care (01) ==
LOC: WC 11:00
PROVIDERS: PCP Family Medicine; Referring Provider Podiatrist; Visit Provider Podiatrist
DX: L97.522 Non-pressure chronic ulcer of other part of left foot with fat layer exposed (principal); I73.9 Peripheral vascular disease, unspecified; I25.10 Atherosclerotic heart disease of native coronary artery without angina pectoris; G62.9 Polyneuropathy, unspecified
CPT/HCPCS: 99213; G0463

== ENCOUNTER → 2021-11-17 | Outpatient (CLI) | payer MEDICARE, OTHER, SELFPAY ==
--- NOTE | 2021-11-17 13:02 | ART_ITS ---
Reason For Study: Atherosclerosis Procedure A bilateral lower extremity continuous wave Doppler with analog waveform analysis and ankle brachial indexes. Left Segmental Pressures Left brachial= 123mmHg. Left posterior tibial artery = 107mmHg. Left dorsalis pedis artery = 87mmHg. The left dorsalis pedis waveforms are biphasic. The left posterior tibial artery waveforms are biphasic. Right Segmental Pressures Right brachial= 123mmHg. Right posterior tibial artery = 100mmHg. Right dorsalis pedis artery = 75mmHg. The right dorsalis pedis waveforms are biphasic. The right posterior tibial artery waveforms are biphasic. Indices The right ankle brachial index by the dorsalis pedis is 0.61. The right ankle brachial index by the posterior tibial artery is 0.81. The left ankle brachial index by the dorsalis pedis is 0.71. The left ankle brachial index by the posterior tibial artery is 0.87. VL/Ankle Brachial Index Interpretation Summary Bilateral lower extremities with biphasic flow noted. Bilateral mild occlusive disease with an RALPH 0.81 on the right and 0.87 on the left. Ordering Physician: Nate Rose Referring Physician: Noe Weeks Performed By: Paradise Sahu RVT
--- NOTE | 2021-11-17 13:02 | ADUL_ITS ---
Reason For Study: Atherosclerosis Left Velocities Ext Iliac Artery, dist = 55 cm./sec. Common Femoral Artery, mid = 67.1 cm./sec. Profunda femoral artery, origin, 102.5 cm/sec. Profunda femoral artery, prox, 72.3 cm/sec. SFA Origin, 97.9 cm/sec. SFA Prox, 88.8 cm/sec. Supf. Femoral Artery, mid = 79.6 cm./sec. Supf. Femoral Artery, dist = 74.1 cm./sec. Popliteal Artery, mid = 52.3 cm./sec. Post. Tibial Artery, prox = 51.2 cm./sec. Post Tibial Artery, mid = 43.5 cm./sec. Post Tibial Artery, dist. = 50.1 cm./sec. Peroneal Artery, prox = 11.4 cm./sec. Peroneal Artery, mid = 22.5 cm./sec. Peroneal Artery,dist. = 14.9 cm./sec. TWIN prox-mid, No flow noted. Ant. Tibial Artery, distal = 8.9 cm./sec. Procedure Exam performed in department. VL/US Art Duplex Unilat Lower Ext Interpretation Summary Right lower extremity with proximal to mid anterior tibial artery occlusion. Ot herwise appears to be near triphasic flow throughout with no significant stenosis. Ordering Physician: Nate Rose Referring Physician: Noe Weeks Performed By: Paradise Sahu RVT
== END | disposition home or self-care (01) ==
PROVIDERS: PCP Family Medicine; Referring Provider Surgery Vascular Surgery; Visit Provider Surgery Vascular Surgery
DX: I70.213 Atherosclerosis of native arteries of extremities with intermittent claudication, bilateral legs (principal); I77.1 Stricture of artery; E78.70 Disorder of bile acid and cholesterol metabolism, unspecified; I10 Essential (primary) hypertension; I25.10 Atherosclerotic heart disease of native coronary artery without angina pectoris; M19.90 Unspecified osteoarthritis, unspecified site; Z85.828 Personal history of other malignant neoplasm of skin
CPT/HCPCS: 93922; 93926

== ENCOUNTER → 2022-06-10 | Outpatient (CLI) | payer MEDICARE, OTHER, SELFPAY ==
--- NOTE | 2022-06-10 12:28 | ADUL_ITS ---
Reason For Study: Aftercare Left Velocities Ext. Iliac Artery, dist = 63.3 cm./sec. Common Femoral Artery, mid = 97.9 cm./sec. Profunda Femoral Artery = 180.4 cm./sec. Supf Femoral Artery, prox = 126.0 cm./sec. Supf Femoral Artery, mid = 265.2 cm./sec. Supf Femoral Artery, dist. = 151.9 cm./sec. Stenting extends from mid/dist SFA through dist POP A Stent, prox. = 89.7 cm./sec. Stent, mid = 63.8 cm./sec. Stent, distal = 49.0 cm./sec. Stent 2, prox = 56.1 cm./sec. Stent 2, mid = 49.4 cm./sec. Stent 2, dist = 43.7 cm./sec. Stent extends mid/dist SFA through dist POP A Post. Tibial Artery, prox = 89.5 cm./sec. Post. Tibial Artery, mid = 105.2 cm./sec. Post. Tibial Artery, dist = 86.9 cm./sec. Peroneal Artery, prox = 61.4 cm./sec. Peroneal Artery, mid = 70.5 cm./sec. Unable to visualize distal Peroneal Ant. Tibial Artery, prox = 26.7 cm./sec. Ant. Tibial Artery, mid = 66.8 cm./sec. Ant. Tibial Artery, dist = 46.8 cm./sec. Procedure The exam was diagnostic. Exam performed in department. VL/US Art Duplex Unilat Lower Ext Interpretation Summary Left leg no severe stenosis excpet mid femoral moderate stenosis. Femoral-popli teal stent patent. Ordering Physician: Nate Rose Performed By: Keanu Sauceda RVT
--- NOTE | 2022-06-10 12:28 | ART_ITS ---
Reason For Study: Aftercare Procedure A bilateral lower extremity continuous wave Doppler with analog waveform analysis and ankle brachial indexes. Left Segmental Pressures Left brachial= 122mmHg. Left posterior tibial artery = 99mmHg. Left dorsalis pedis artery = 86mmHg. Left digit = 67 mmHg. The left posterior tibial artery waveforms are biphasic. The left dorsalis pedis waveforms are biphasic. Right Segmental Pressures Right brachial= 118mmHg. Right posterior tibial artery = 102mmHg. Right dorsalis pedis artery = 73mmHg. Right digit = 61 mmHg. The right posterior tibial artery waveforms are biphasic. The right dorsalis pedis waveforms are biphasic. Indices The right ankle brachial index by the posterior tibial artery is 0.84. The right ankle brachial index by the dorsalis pedis is 0.60. The right digital-brachial index is 0.50. The left ankle brachial index by the posterior tibial artery is 0.81. The left ankle brachial index by the dorsalis pedis is 0.70. The left digital-brachial index is 0.55. VL/Ankle Brachial Index Interpretation Summary Bilateral mild occlussive disease with biphasic flow a nd RALPH 0.84 and 0.81. Ordering Physician: Nate Rose Referring Physician: Noe Weeks Performed By: Keanu Sauceda RVT
== END | disposition home or self-care (01) ==
LOC: CVS 12:27
PROVIDERS: PCP Family Medicine; Visit Provider Surgery Vascular Surgery
DX: Z48.812 Encounter for surgical aftercare following surgery on the circulatory system (principal)
CPT/HCPCS: 93922; 93926

== ENCOUNTER 2022-06-30 11:25 | Inpatient (IN) | payer MEDICARE, OTHER, SELFPAY ==
[2022-06-30] VITALS (11 sets, daily range): BP systolic 119–157; BP diastolic 55–84; PULSE 82–111; RESP 15–21; TEMP 36.6–38.9; O2SAT 91–97; BMI 25.9; BMI 24.7
--- NOTE | 2022-06-30 12:18 | CT_ITS ---
STUDY: CT BRAIN WITHOUT CONTRAST REASON FOR EXAM: Male, 86 years old. confusion RADIATION DOSAGE (If Supplied By Facility): CTDIvol = ( 44.99 ) mGy, DLP = ( 914.22 ) mGycm TECHNIQUE: Transaxial CT imaging of the brain was performed without administration of intravenous contrast material. Individualized dose optimization techniques were used for this CT. COMPARISON: 2017 FINDINGS: Normal soft tissue structures. Normal calvarium. There is moderate cerebral atrophy with widening of the extra-axial spaces and ventricular dilatation. There are areas of decreased attenuation within the white matter tracts of the supratentorial brain, consistent with microvascular disease changes. Normal basal ganglia and thalami. Normal brainstem. There is mild cerebellar atrophy. There is no intracranial hemorrhage. There are no findings of an acute ischemic infarction. Normal visualized paranasal sinuses. CT/Brain/Head without Contrast IMPRESSION: Chronic involutional changes of the brain. No acute hemorrhage Electronically Signed: Abhijit Steel MD at 13:27 EDT ,
--- NOTE | 2022-06-30 12:18 | EKG12_ITS ---
Test Reason : CONFUSION Blood Pressure : / mmHG Vent. Rate : 096 BPM Atrial Rate : 096 BPM P-R Int : 144 ms QRS Dur : 126 ms QT Int : 378 ms P-R-T Axes : 089 078 -20 degrees QTc Int : 477 ms Normal sinus rhythm Right bundle branch block Abnormal ECG Confirmed by AUNDREA MONTES, MANUEL ([id number]), art editor REHAN GASPAR ([id number]) on 07/04/2022 12:16:19 P M Referred By: Confirmed By:JAIR GUILLAUME MD
--- NOTE | 2022-06-30 12:20 | EX.ED.DYSGE1 ---
HPI History of Present Illness Chief Complaint: Confusion Narrative Narrative: Patient was sent in from half-way for having some waxing and waning confusion that seems worse over the last 24 hours but evidently it has been going on a bit longer. Patient has no complaints other than his legs are sore. He states this is chronic and he does have spinal stenosis listed. Patient told me he was in the emergency department. It was a little hard to understand him when he told me the date. I was not sure if he stated 85. For the nurse evidently he did get the correct date though. He did not answer when I asked who the president was. He was not sure. I did review the nursing notes that came with the patient. I would list that we have. He does have dementia. [facility] Medical History Acute diarrheal illness Acute kidney injury Atherosclerotic heart disease of [place] coronary artery without angina pectoris Atrial fibrillation with RVR (05/28/20) Cancer Carpal tunnel syndrome on both sides Chest pain Chronic pain of right heel DDD (degenerative disc disease) Debility Delayed wound healing Dementia Diabetes Essential (primary) hypertension Gait disorder GERD (gastroesophageal reflux disease) Hallucinations History of non-ST elevation myocardial infarction (NSTEMI) (07/02/19) Hyperlipidemia Hypertension Lumbar stenosis Neuropathy Non-healing ulcer of right foot with fat layer exposed Nonhealing ulcer of left lower extremity with fat layer exposed Obstructive sleep apnea Open wound of finger of left hand PAD (peripheral artery disease) Peripheral arterial occlusive disease Peripheral neuropathy Pneumonia due to COVID-19 virus (03/23/20) Prostate cancer Rectal prolapse Retinopathy due to secondary diabetes Right bundle branch block (RBBB) Septic shock Sleep apnea Spondylolisthesis Ulcer of right heel Ulcer of right lower extremity with fat layer exposed Urinary incontinence UTI (urinary tract infection) Home Medications omeprazole 20 mg capsule,delayed release 20 mg PO DAILY gerd 10/07/15 [History Last Taken 08/26/20] hzmzogvl-izt-raihj acid 300 mcg-lycopene 600 mcg-lutein 300 mcg tablet 1 tab PO DAILY MVI 02/14/18 [History Last Taken 08/26/20] vitamin E 268 mg (400 unit) capsule 400 unit PO DAILY supplement 10/29/18 [History Last Taken 08/26/20] duloxetine 30 mg capsule,delayed release 30 mg PO DAILY DEPRESSION 03/06/19 [History Last Taken 08/26/20] atorvastatin 20 mg tablet 20 mg PO QHS CHOLESTEROL #90 tabs 06/10/19 [Rx Last Taken 08/25/20] potassium chloride 10 mEq tablet,extended release(part/cryst) 20 meq PO BID SUPPLEMENT 02/25/20 [History Last Taken 08/26/20] isosorbide mononitrate 30 mg tablet,extended release 24 hr 30 mg PO DAILY cad 05/28/20 [History Last Taken 08/26/20] lisinopril 5 mg tablet 5 mg PO DAILY BP 08/26/20 [History Last Taken 08/26/20] polyethylene glycol 3350 17 gram oral powder packet 17 g PO DAILY CONSTIPATION 08/26/20 [History Last Taken 08/26/20] furosemide 40 mg tablet (Lasix) 40 mg PO DAILY #90 tabs 10/08/20 [Rx Last Taken Unknown] metoprolol succinate 100 mg tablet,extended release 24 hr 100 mg PO DAILY #90 tabs 10/14/20 [Rx Last Taken Unknown] bisacodyl 10 mg rectal suppository 10 mg [place] DAILY PRN Constipation 11/10/20 [History Last Taken Unknown] diclofenac sodium 1 % topical gel 4 g topical BID #100 grams 11/10/20 [Rx Last Taken Unknown] magnesium hydroxide 400 mg/5 mL oral suspension (Milk of Magnesia) 30 ml PO DAILY PRN Constipation 11/10/20 [History Last Taken Unknown] mineral oil (Fleet Mineral Oil enema) 118 ml [place] DAILY PRN Constipation 11/10/20 [History Last Taken Unknown] donepezil 10 mg tablet 10 mg PO QAM 06/17/21 [History Last Taken Unknown] clopidogrel 75 mg tablet (Plavix) 75 mg PO DAILY 09/21/21 [History Last Taken Unknown] acetaminophen 500 mg tablet (Tylenol Extra Strength) 1,000 mg PO TID PRN 10/26/21 [History Last Taken Unknown] aspirin 81 mg tablet,delayed release (Adult Aspirin Regimen) 81 mg PO DAILY 05/12/22 [History Last Taken Unknown] carbamazepine 100 mg capsule,extended release [id number] 100 mg PO DAILY 05/12/22 [History Last Taken Unknown] Motorized wheelchair #1 ea 06/29/22 [Rx Last Taken Unknown] dextrose 40 % oral gel (Glucose Gel) 15 g PO Q15M PRN 06/29/22 [History Last Taken Unknown] glucagon 1 mg injection kit mg IM PRN 06/29/22 [History Last Taken Unknown] guaifenesin 100 mg/5 mL oral liquid (Tussin) 200 mg PO Q4H PRN 06/29/22 [History Last Taken Unknown] Allergy/AdvReac Type Severity Reaction Status Date / Time latex Allergy Unknown unknown Verified 06/30/22 11:33 carisoprodol Allergy Other Verified 06/30/22 11:33 itraconazole Allergy Other Verified 06/30/22 11:33 Family History Mother CVA (cerebral vascular accident) Sister Hypertension Surgical History History of angioplasty of peripheral vessel (10/23/13) History of back surgery History of coronary artery stent placement (10/07/15) History of coronary artery stent placement History of hernia repair History of left heart catheterization (07/02/19) History of prostatectomy History of shoulder surgery History of tonsillectomy Social History housing: half-way Smoking Status: Never smoker alcohol intake: never substance use type: does not use caffeine: Yes Type: tea what type of physical activity do you participate in: none seatbelt use: always do you feel safe at home: Yes ROS ROS ED Constitutional Constitutional ED: Denies fever(s) ENT ENT ED: Denies rhinorrhea Cardiovascular Cardiovascular: Denies chest pain Respiratory/Chest Respiratory/Chest: Denies cough Gastrointestinal Gastrointestinal: Denies abdominal pain, diarrhea, nausea or vomiting Genitourinary Genitourinary ED: Reports other Details: Patient has incontinence. He has a diaper on at this time that does have urine in it. Does not smell malodorous. Musculoskeletal Musculoskeletal: Reports other Details: Patient denies back pain at this time but does have a history of chronic back pain and spinal stenosis. Integumentary Reports other Details: Healing wounds lower extremities no recent complications or changes Neurologic Neurologic: Reports other Details: See history of present illness. Allergic/Immunologic Allergic/Immunologic ED: Denies urticaria EXAM Physical Exam Narrative Exam Narrative: Patient is laying in bed. He is not in any acute distress. He is awake. HEENT: No trauma. Mucous membranes do look very dry. Neck is supple. Lungs are clear. There is no coughing. No wheezing. Saturations are 96 to 98% on room air showing no hypoxia. Heart is regular. I do not hear a murmur. Abdomen is soft. There is no notable tenderness. I do note that he has a full diaper. Extremities show no edema. He moves all well. Skin does show some wounds on bilateral lower shins. These are dressed loosely. I am able to look under these. They do not look like they are weeping or the cause of a significant infection though. Neurologically he is awake he is alert. He is oriented to his name his location in the emergency department. He was oriented to year for the nurse but it sounds like he told me 1985. I cannot get him to answer who the president is. Const Vital Signs: 06/30/22 11:26 06/30/22 11:31 06/30/22 12:22 Temperature 99.1 F 99.1 F 101.2 F H Temperature Source Oral Oral Axillary Pulse Rate 93 91 Respiratory Rate 18 18 Blood Pressure 154/83 H 144/84 H Blood Pressure Mean 106 104 Pulse Ox 96 97 Oxygen Delivery Method Room Air Room Air 06/30/22 12:26 06/30/22 12:56 06/30/22 13:31 Temperature 101.2 F H 102.0 F H 102.1 F H Temperature Source Axillary Axillary Axillary Pulse Rate 91 111 H 92 Respiratory Rate 15 21 H 16 Blood Pressure 153/72 H 157/70 H 128/55 H Blood Pressure Mean 99 99 79 Pulse Ox 93 93 93 Oxygen Delivery Method Room Air Room Air Room Air 06/30/22 14:58 Temperature 100.0 F H Temperature Source Axillary Pulse Rate 89 Respiratory Rate 18 Blood Pressure 143/63 H Blood Pressure Mean 89 Pulse Ox 93 Oxygen Delivery Method Room Air MDM MDM MDM Narrative Medical decision making narrative: 12: 33 the nurse came to me and noted that he felt warmer. His temperature is at 101.2. At this point we will add further cultures, lactate and write for some Tylenol. Patient CBC does show elevated white count. His hemoglobin is low but I have no report of any bleeding. MCH and MCHC are also low. Patient's electrolytes show mild bump of his BUN and creatinine. His lactate was elevated at 3.0. Magnesium normal. Urine does show cloudy urine with leukocyte Estrace, nitrites, 4+ bacteria and 5-10 white cells. Cultures will be sent and this will be treated as UTI. Especially since he has developed fevers confusion and elevated white count. My independent interpretation of his CT of the head done for confusion shows no acute process or bleeding noted. Final reading is chronic changes of the brain. No acute ridge. With the patient's confusion, weakness, white count, fever, urine infection and elevated lactate I will talk to the hospitalist about admission. He is not tachycardic or hypotensive. However I am giving him some fluids. Lab Data Attestation: I reviewed the patient's lab results. Labs: Laboratory Results - last 24 hr 06/30/22 06/30/22 06/30/22 12:20 12:20 12:20 WBC 14.7 H RBC 3.44 L Hgb 9.2 L Hct 30.6 L MCV 89.0 MCH 26.7 L MCHC 30.1 L RDW Std Deviation 55.9 H RDW Coeff of Ayesha 17.6 H Plt Count 362 MPV 9.4 Immature Gran % (Auto) 0.700 Neut % (Auto) 87.1 H Lymph % (Auto) 3.3 L Clarke % (Auto) 8.7 Eos % (Auto) 0.0 Baso % (Auto) 0.2 Absolute Neuts (auto) 12.8 H Absolute Lymphs (auto) 0.48 L Nucleated RBC % 0 Differential Comment COMMENT Sodium 145 Potassium 4.3 Chloride 110 H Carbon Dioxide 27.0 Anion Gap 8 BUN 33 H Creatinine 1.35 H Estim Creat Clear Calc 34.79 Est GFR (MDRD) Af Amer 64 Est GFR (MDRD) Non-Af 53 L BUN/Creatinine Ratio 24.4 H Glucose 123 H Lactic Acid 3.0 H* Calcium 9.5 Magnesium 2.3 Urine Color Urine Clarity Urine pH Ur Specific [place] Urine Protein Urine Glucose (UA) Urine Ketones Urine Occult Blood Urine Nitrite Urine Bilirubin Urine Urobilinogen Ur Leukocyte Esterase Urine RBC Urine WBC Ur Squamous Epith Cells Urine Bacteria Urine Mucus 06/30/22 12:50 WBC RBC Hgb Hct MCV MCH MCHC RDW Std Deviation RDW Coeff of Ayesha Plt Count MPV Immature Gran % (Auto) Neut % (Auto) Lymph % (Auto) Clarke % (Auto) Eos % (Auto) Baso % (Auto) Absolute Neuts (auto) Absolute Lymphs (auto) Nucleated RBC % Differential Comment Sodium Potassium Chloride Carbon Dioxide Anion Gap BUN Creatinine Estim Creat Clear Calc Est GFR (MDRD) Af Amer Est GFR (MDRD) Non-Af BUN/Creatinine Ratio Glucose Lactic Acid Calcium Magnesium Urine Color Yellow Urine Clarity Sl. Cloudy Urine pH 6.5 Ur Specific [place] 1.010 Urine Protein 100 H Urine Glucose (UA) Normal Urine Ketones 5 H Urine Occult Blood 250 H Urine Nitrite Positive H Urine Bilirubin Negative Urine Urobilinogen Normal Ur Leukocyte Esterase 100 H Urine RBC 0-5 SEEN Urine WBC 5-10 SEEN Ur Squamous Epith Cells 0-5 SEEN Urine Bacteria 4+ Urine Mucus RARE Radiography Diagnostic Testing: Clinical Impression(s) from Imaging Studies Brain CT 06/30/22 12:18 IMPRESSION: Chronic involutional changes of the brain. No acute hemorrhage Electronically Signed: Abhijit Steel MD at 13:27 EDT Reading Location ID and State: [facility] / [place] , Service support , EKG Initial EKG: Comments: My independent interpretation the patient's EKG done for generalized weakness shows sinus rhythm with overall rate of 96. Does have a right bundle branch block with secondary changes but no sign of acute infarct or ischemia. No ventricular ectopy. IL interval is normal. QRS duration and QTc are a bit long. Management Discussion w/another healthcare provider: Hospitalist Discharge Plan Dx/Rx/DC Orders Clinical Impression: Acute UTI, Acute confusion, Leukocytosis, Acidosis, lactic, Elevated serum creatinine Disposition Disposition: Acute Care [facility]
[2022-06-30 12:39] LABS: Absolute Lymphocyte Count 0.48 X10^3/uL (0.83-4.51); Absolute Neutrophil Count 12.8 X10^3/uL (2.0-7.7); Basophil# 0.03 X10^3/uL; Basophil% 0.2 % (0-1); Hematocrit 30.6 % (40-54); Hemoglobin 9.2 g/dL (13.0-16.5); Lymphocyte # 0.48 X10^3/ul (0.83-4.51); Lymphocyte % 3.3 % (19-41); Mean Corp Hgb Conc 30.1 g/dL (32-36); Mean Corpuscular Hgb 26.7 pg (27.0-32.0); Mean Platelet Vol. 9.4 fl (6.2-12.0); Monocyte# 1.28 X10^3/uL; Monocyte% 8.7 % (0-10); NRBC Flagged by Analyzer 0 % (0-5); Neutrophil # 12.78 X10^3/uL (2.7-7.7); Neutrophil % 87.1 % (47-70); POSITIVE DIFFERENTIAL YES; Platelet Count 362 K/mm3 (150-450); RBC Distribution Width CV 17.6 % (11.6-14.6); RBC Distribution Width SD 55.9 fl (35.1-43.9); Red Blood Count 3.44 M/mm3 (4.6-6.2); White Blood Count 14.7 K/mm3 (4.4-11.0)
[2022-06-30 12:41] LABS: Differential Indicated SCAN CRITERIA MET
[2022-06-30] MEDS: Acetaminophen 500 MG Tablet 1000 MG PO (12:42)
[2022-06-30 12:51] LABS: Anion Gap 8 (5-15); BUN 33 mg/dL (7-18); BUN/Creat Ratio 24.4 RATIO (10-20); Calcium,Total 9.5 mg/dL (8.5-10.1); Chloride 110 mmol/L (98-107); Creatinine, Serum 1.35 mg/dL (0.70-1.30); EST Glomerular Filtration Rate 53 mL/min (>60); Est Glom Filt Rate - Afr Amer 64 mL/min (>60); Estimated Creatinine Clearance 34.79 ml/min; Glucose 123 mg/dL (74-106); Magnesium 2.3 mg/dL (1.6-2.6); Potassium 4.3 mmol/L (3.5-5.1); Sodium Level 145 mmol/L (136-145)
[2022-06-30 13:03] LABS: Color, Urine Yellow (Yellow); Glucose, Dipstick Normal (Normal); Ketone-Dipstick 5 mg/dl (Negative); Leukocyte Esterase-Dipstick 100 /ul (Negative); Nitrite-Dipstick Positive (Negative); Occult Blood-Urine 250 /ul (Negative); Protein-Dipstick 100 mg/dl (Negative); Urine Bilirubin Dipstick Negative (Negative); Urine Clarity Sl. Cloudy (Clear); Urine Urobilinogen Normal (Normal); Urine pH 6.5 (5.0 - 8.0)
[2022-06-30 13:15] LABS: Bacteria 4+ /hpf (None Seen); Red Blood Cells-Urine 0-5 SEEN /hpf (0-5); Squamous Epithelial Cells - UA 0-5 SEEN /hpf (0-5); White Blood Cells 5-10 SEEN /hpf (0-5)
[2022-06-30 13:16] LABS: Mucous, Urine RARE /hpf (<or=2+)
[2022-06-30] MEDS: 0.9% Normal Saline 1,000 ML 999 ML IV (13:54)
[2022-06-30] MEDS: Ceftriaxone 1 GM/50 ML BAG IV (13:59)
[2022-06-30 16:34] LABS: Reflex Lactate? Y
--- NOTE | 2022-06-30 16:58 | HP.PCM.HOS_ITS ---
HPI - General General Date of Admission: 06/30/22 Date of Service: 06/30/22 Chief Complaint: AMS HPI Narrative FEI OLEARY, is a 86 M with a history of atrial fibrillation, coronary artery disease status post stent placement 2015, hypertension, neuropathy who presented to [facility] 06/30/2022 for waxing and waning mental status from intermediate. In the ED he had a white blood cell count of 14.7, hemoglobin 9.2, sodium 145 with chloride 110 as well as BUN of 33 with a creatinine of 1.35 and a lactic acid of 3. In the ED he had a Tmax of 101.2 with a heart rate of 92 and blood pressure 128/55 saturating 93% on room air. He remained confused and Urine does show cloudy urine with leukocyte Estrace, nitrites, 4+ bacteria and 5-10 white cells.? Cultures will be sent and this will be treated as UTI. He was given fluids and Rocephin and hospitalist consulted for admission. Patient seen at bedside, he would wake up and mumble answers but would not answer questions directly and would fall back asleep quickly, was resting comfortably protecting his airway. Unable to obtain further history. [facility] Medical History Acute diarrheal illness Acute kidney injury Atherosclerotic heart disease of [place] coronary artery without angina pectoris Atrial fibrillation with RVR (05/28/20) Cancer Carpal tunnel syndrome on both sides Chest pain Chronic pain of right heel DDD (degenerative disc disease) Debility Delayed wound healing Dementia Diabetes Essential (primary) hypertension Gait disorder GERD (gastroesophageal reflux disease) Hallucinations History of non-ST elevation myocardial infarction (NSTEMI) (07/02/19) Hyperlipidemia Hypertension Lumbar stenosis Neuropathy Non-healing ulcer of right foot with fat layer exposed Nonhealing ulcer of left lower extremity with fat layer exposed Obstructive sleep apnea Open wound of finger of left hand PAD (peripheral artery disease) Peripheral arterial occlusive disease Peripheral neuropathy Pneumonia due to COVID-19 virus (03/23/20) Prostate cancer Rectal prolapse Retinopathy due to secondary diabetes Right bundle branch block (RBBB) Septic shock Sleep apnea Spondylolisthesis Ulcer of right heel Ulcer of right lower extremity with fat layer exposed Urinary incontinence UTI (urinary tract infection) Home Medications lkzvvjcc-zid-tihnr acid 300 mcg-lycopene 600 mcg-lutein 300 mcg tablet 1 tab PO DAILY HEALTH MAINTENANCE 02/14/18 [History Last Taken 06/30/22] vitamin E 268 mg (400 unit) capsule 400 unit PO DAILY SUPPLEMENT 10/29/18 [History Last Taken 06/30/22] duloxetine 30 mg capsule,delayed release 30 mg PO DAILY DEPRESSION 03/06/19 [History Last Taken 06/30/22] atorvastatin 20 mg tablet 20 mg PO QHS CHOLESTEROL #90 tabs 06/10/19 [Rx Last Taken 06/29/22] isosorbide mononitrate 30 mg tablet,extended release 24 hr 30 mg PO DAILY CHEST PAIN 05/28/20 [History Last Taken 06/30/22] lisinopril 5 mg tablet 5 mg PO DAILY BLOOD PRESSURE 08/26/20 [History Last Taken 06/30/22] donepezil 10 mg tablet 10 mg PO DAILY DEMENTIA 06/17/21 [History Last Taken 06/30/22] clopidogrel 75 mg tablet (Plavix) 75 mg PO 2000 BLOOD THINNER 09/21/21 [History Last Taken 06/29/22] aspirin 81 mg tablet,delayed release (Adult Aspirin Regimen) 81 mg PO DAILY HEART HEALTH 05/12/22 [History Last Taken 06/30/22 08:00] carbamazepine 100 mg capsule,extended release [id number] 200 mg PO BID PAIN 05/12/22 [History Last Taken 06/30/22] Motorized wheelchair #1 ea 06/29/22 [Rx Last Taken Unknown] furosemide 40 mg tablet (Lasix) 40 mg PO DAILY FLUID 06/30/22 [History Last Taken 06/30/22] metoprolol succinate 100 mg tablet,extended release 24 hr 100 mg PO DAILY BLOOD PRESSURE 06/30/22 [History Last Taken 06/30/22] mirtazapine 30 mg tablet 30 mg PO QHS DEPRESSION 06/30/22 [History Last Taken 06/29/22] oxycodone-acetaminophen 5 mg-325 mg tablet 2 tab PO Q6H PRN PAIN 06/30/22 [History Last Taken 06/30/22 09:54] pantoprazole 20 mg tablet,delayed release 20 mg PO DAILY GERD 06/30/22 [History Last Taken 06/30/22 06:00] Allergy/AdvReac Type Severity Reaction Status Date / Time latex Allergy Unknown unknown Verified 06/30/22 11:33 carisoprodol Allergy Other Verified 06/30/22 11:33 itraconazole Allergy Other Verified 06/30/22 11:33 Family History Mother CVA (cerebral vascular accident) Sister Hypertension Surgical History History of angioplasty of peripheral vessel (10/23/13) History of back surgery History of coronary artery stent placement (10/07/15) History of coronary artery stent placement History of hernia repair History of left heart catheterization (07/02/19) History of prostatectomy History of shoulder surgery History of tonsillectomy Social History housing: intermediate Smoking Status: Never smoker alcohol intake: never substance use type: does not use caffeine: Yes Type: tea what type of physical activity do you participate in: none seatbelt use: always do you feel safe at home: Yes ROS ROS Narrative Unable to obtain ROS secondary to mental status Vital Signs Vital Signs Vital Signs: 06/30/22 11:26 06/30/22 11:31 06/30/22 12:22 Temperature 99.1 F 99.1 F 101.2 F H Temperature Source Oral Oral Axillary Pulse Rate 93 91 Respiratory Rate 18 18 Blood Pressure 154/83 H 144/84 H Blood Pressure Mean 106 104 Pulse Ox 96 97 Oxygen Delivery Method Room Air Room Air 06/30/22 12:26 06/30/22 12:56 06/30/22 13:31 Temperature 101.2 F H 102.0 F H 102.1 F H Temperature Source Axillary Axillary Axillary Pulse Rate 91 111 H 92 Respiratory Rate 15 21 H 16 Blood Pressure 153/72 H 157/70 H 128/55 H Blood Pressure Mean 99 99 79 Pulse Ox 93 93 93 Oxygen Delivery Method Room Air Room Air Room Air 06/30/22 14:58 06/30/22 16:34 Temperature 100.0 F H 97.9 F Temperature Source Axillary Temporal Pulse Rate 89 86 Respiratory Rate 18 18 Blood Pressure 143/63 H 150/63 H Blood Pressure Mean 89 92 Pulse Ox 93 96 Oxygen Delivery Method Room Air Room Air Weight Weight: 73.3 kg Body Mass Index (BMI) 25.9 Physical Exam Narrative General: Resting but woken up easily however quickly falls back asleep and does not answer questions appropriately HEENT: Atraumatic, normocephalic, mucous membranes appear dry Eyes: Anicteric, normal conjunctiva, extraocular movements grossly intact Neck: Supple Respiratory: Clear to auscultation bilaterally, normal respiratory effort Cardiovascular: Regular rate and rhythm GI: Soft, nontender, nondistended Extremities: No edema Musculoskeletal: Moving all extremities Neuro: No overt focal neurological deficits Skin: Has some shallow ulcers on shins bilaterally with no evidence of infection Psych: Cannot cooperate secondary to mental status Results Lab / Micro Data Result Diagrams: 06/30/22 12:20 06/30/22 12:20 Labs: Laboratory Results - last 24 hr 06/30/22 12:20: WBC 14.7 H, RBC 3.44 L, Hgb 9.2 L, Hct 30.6 L, MCV 89.0, MCH 26.7 L, MCHC 30.1 L, RDW Std Deviation 55.9 H, RDW Coeff of Ayesha 17.6 H, Plt Count 362, MPV 9.4, Immature Gran % (Auto) 0.700, Neut % (Auto) 87.1 H, Lymph % (Auto) 3.3 L, [place] % (Auto) 8.7, Eos % (Auto) 0.0, Baso % (Auto) 0.2, Absolute Neuts (auto) 12.8 H, Absolute Lymphs (auto) 0.48 L, Nucleated RBC % 0, Differential Comment COMMENT 06/30/22 12:20: Sodium 145, Potassium 4.3, Chloride 110 H, Carbon Dioxide 27.0, Anion Gap 8, BUN 33 H, Creatinine 1.35 H, Estim Creat Clear Calc 34.79, Est GFR (MDRD) Af Amer 64, Est GFR (MDRD) Non-Af 53 L, BUN/Creatinine Ratio 24.4 H, Glucose 123 H, Calcium 9.5, Magnesium 2.3 06/30/22 12:20: Lactic Acid 3.0 H* 06/30/22 12:50: Urine Color Yellow, Urine Clarity Sl. Cloudy, Urine pH 6.5, Ur Specific [place] 1.010, Urine Protein 100 H, Urine Glucose (UA) Normal, Urine K etones 5 H, Urine Occult Blood 250 H, Urine Nitrite Positive H, Urine Bilirubin Negative, Urine Urobilinogen Normal, Ur Leukocyte Esterase 100 H, Urine RBC 0-5 SEEN, Urine WBC 5-10 SEEN, Ur Squamous Epith Cells 0-5 SEEN, Urine Bacteria 4+, Urine Mucus RARE Micro: Microbiology 06/30/22 12:35 Nasal Secretion SARS-CoV-2 & FLU Antigen (Rapid) - Final Radiology Impression Brain CT 06/30/22 12:18 IMPRESSION: Chronic involutional changes of the brain. No acute hemorrhage Electronically Signed: Abhijit Steel MD at 13:27 EDT , Assessment & Plan Assessment/Plan (1) UTI (urinary tract infection): (2) Encephalopathy acute: PLAN: Plan #Encephalopathy, suspect metabolic on top of chronic dementia -Suspect altered mental status is due to infection with urinary tract infection, has elevated white count, UA suggestive of UTI, elevated lactic acid and temperature of 102.1 but is vitally stable -We will continue Rocephin and fluids -Urine and blood cultures pending, do not feel patient is septic however at this time -Did have CT of the brain in ED which showed chronic involutional changes with no acute hemorrhage -We will hold as needed opioids as this may contribute and will decrease carbamazepine dose until patient more alert -We will continue donepezil, follows with Dr. Mares as an outpatient -We will hold Lasix due to patient seeming volume depleted, daily weights #Peripheral vascular disease with history of angioplasty and stenting -SFA PTCA/Stent 08/2012; Stent to distal RSFA to popliteal, Stent-Prox RSFA 10/23/13; Multiple angioplasty and stenting on 03/22/[address] Benja Ricketts -Has some ulcers on bilateral lower extremities, will consult wound care -Continue aspirin, Plavix, statin #Complicated urinary tract infection -Continue IV Rocephin and fluids, does appear to have a history of UTIs that have all been sensitive to Rocephin -Await cultures #Normocytic anemia -Has widely variable hemoglobin based on labs -Was not reported that there has been any overt bleeding, monitor for blood and recheck hemoglobin in the a.m. or sooner if needed, if any further drop may need further work-up as he has a history of rectal bleeding though that does not seem to be primary problem at this time #JUAN PABLO versus CKD unclear subtype -Creatinine 1.35 with a previous creatinine in March of 1.37 however prior to that was 0.8-1, unclear recent values -Does appear dry however, will continue hydration -We will hold lisinopril for this time #Coronary artery disease -PCI-Stent to mid RCA 08/06/04; cutting balloon angioplasty with TAMERA to mid RCA 02/19; ZGS-Qcile-SLN-of RCA 06/18/09; PCI/TAMERA to Ostial PDA and PCI-ISR RCA 09/03/13; PCI/TAMERA ISR of mid RCA 10/07/15 -Aspirin, Plavix, statin, beta-juan a #Atrial fibrillation -Does not seem to be on anticoagulation, suspect that this is due to to a history of GI bleed. This history is seen in a note from neurology yesterday 06/29/2022. -EKG normal sinus rhythm with a bundle branch block -Continue beta-juan a with holding parameters #Neuropathy and spinal stenosis -Takes 200 mg of carbamazepine twice daily for pain, will decrease dose as this may contribute to his mental status especially as it appears this was increased yesterday in neurology office #DVT ppx: Nini Perez MD Time spent in the patient's overall evaluation,decision-making process, review of diagnostic data, adjustment of management, discussion with other providers, nursing nursing and ancillary staff involved in patient's care documentation, 60 minutes Charges/Coding Visit Charges Inpatient E&M: 12671 Init Hosp L2
[2022-06-30 17:54] LABS: Lactic Acid 2.1 mmol/L (0.4-1.9)
[2022-06-30] MEDS: 0.9% Normal Saline 1,000 ML 75 ML IV (18:04)
[2022-06-30] MEDS: Acetaminophen 325 MG Tablet 650 MG PO (18:13)
[2022-06-30] MEDS: Atorvastatin Calcium 20 MG Tablet PO (20:09)
[2022-06-30] MEDS: carBAMazepine 200 MG Tablet 100 MG PO (20:09)
[2022-06-30] MEDS: Donepezil HCl 10 MG Tablet PO (20:09)
[2022-06-30] MEDS: Clopidogrel Bisulfate 75 MG Tablet PO (20:09)
[2022-06-30] MEDS: Mirtazapine 30 MG Tablet PO (20:09)
[2022-07-01 03:49] VITALS: BMI 25.3
[2022-07-01 05:37] VITALS: BP 164/75; PULSE 102; RESP 18; TEMP 38.3; O2SAT 94
[2022-07-01] MEDS: Acetaminophen 325 MG Tablet 650 MG PO (05:42)
[2022-07-01 06:07] LABS: Absolute Lymphocyte Count 0.67 X10^3/uL (0.83-4.51); Absolute Neutrophil Count 8.3 X10^3/uL (2.0-7.7); Basophil# 0.04 X10^3/uL; Basophil% 0.4 % (0-1); Eosinophil# 0.01 X10^3/uL; Eosinophils% 0.1 % (0-5); Hematocrit 29.2 % (40-54); Hemoglobin 8.5 g/dL (13.0-16.5); Lymphocyte # 0.67 X10^3/ul (0.83-4.51); Lymphocyte % 6.5 % (19-41); Mean Corp Hgb Conc 29.1 g/dL (32-36); Mean Corpuscular Hgb 26.4 pg (27.0-32.0); Mean Corpuscular Volume 90.7 fL (80-94); Mean Platelet Vol. 9.1 fl (6.2-12.0); Monocyte# 1.21 X10^3/uL; Monocyte% 11.8 % (0-10); NRBC Flagged by Analyzer 0.2 % (0-5); Neutrophil # 8.26 X10^3/uL (2.7-7.7); Neutrophil % 80.7 % (47-70); Platelet Count 312 K/mm3 (150-450); RBC Distribution Width CV 17.6 % (11.6-14.6); RBC Distribution Width SD 58.8 fl (35.1-43.9); Red Blood Count 3.22 M/mm3 (4.6-6.2); White Blood Count 10.2 K/mm3 (4.4-11.0)
[2022-07-01 06:43] VITALS: BP 107/63; PULSE 105; RESP 18; TEMP 37.6; O2SAT 93
[2022-07-01 06:44] LABS: ALB/GLOB Ratio 0.6 RATIO (0.9-2.4); AST(SGOT) 77 U/L (15-37); Alanine Aminotransfer ALT/SGPT 29 U/L (16-61); Albumin, Serum 2.7 g/dL (3.2-5.0); Alkaline Phosphatase 84 U/L (45-117); Anion Gap 11 (5-15); BUN 26 mg/dL (7-18); BUN/Creat Ratio 24.1 RATIO (10-20); Calcium,Total 9.3 mg/dL (8.5-10.1); Chloride 113 mmol/L (98-107); Creatinine, Serum 1.08 mg/dL (0.70-1.30); EST Glomerular Filtration Rate 69 mL/min (>60); Est Glom Filt Rate - Afr Amer 83 mL/min (>60); Estimated Creatinine Clearance 43.49 ml/min; Globulin 4.3 g/dL (2.2-4.2); Glucose 92 mg/dL (74-106); Potassium 3.4 mmol/L (3.5-5.1); Sodium Level 147 mmol/L (136-145)
[2022-07-01 07:41] LABS: Ferritin 70 ng/mL (26-388); Iron 21 ug/dL (65-175); Iron Binding Capacity,Total 312 ug/dL (250-450); PERCENT IRON SATURATION 6.7 % (15.0-55.0)
[2022-07-01 07:51] VITALS: BP 131/60; PULSE 120; RESP 18; TEMP 36.8; O2SAT 92
[2022-07-01] MEDS: carBAMazepine 200 MG Tablet 100 MG PO ×2 (07:54→20:23)
[2022-07-01 07:55] VITALS: PULSE 120
[2022-07-01] MEDS: Enoxaparin 40 MG/0.4 ML Syringe SC (07:55)
[2022-07-01] MEDS: Aspirin E.C. 81 MG Tablet PO (07:55)
[2022-07-01] MEDS: Isosorbide Mononitrate 30 MG Tablet PO ×2 (07:55)
[2022-07-01] MEDS: Pantoprazole Sodium 20 MG Tablet PO (07:55)
[2022-07-01] MEDS: DULoxetine Hcl 30 MG Capsule PO (07:55)
[2022-07-01] MEDS: Metoprolol(XL)Succ 100 MG Tablet PO (07:55)
[2022-07-01] MEDS: Potassium Chloride Oral Tablet 20 MEQ 40 MEQ PO (07:59)
[2022-07-01] MEDS: Ceftriaxone 1 GM/50 ML BAG IV (09:04)
--- NOTE | 2022-07-01 09:06 | PN.HOSP_ITS ---
Subjective Subjective No issues overnight, doing well Objective Data Objective Data Vital Signs: Vital Signs Temp Pulse Resp BP Pulse Ox O2 Del Method 98.2 F 120 H 18 131/60 H 92 Room Air 07/01/22 07:51 07/01/22 07:55 07/01/22 07:51 07/01/22 07:51 07/01/22 07:51 07/01/22 07:51 Oxygen Delivery Method Room Air Weight: 157 lb 13.616 oz Body Mass Index (BMI) 25.3 Intake & Output: Intake and Output for Last 24 Hours 06/30/22 07/01/22 07/02/22 03:59 03:59 03:59 Intake Total 1750 / 1750 150 / 150 Output Total 300 / 300 Balance 1750 / 1750 -150 / -150 Lab / Micro Data Result Diagrams: 07/01/22 04:36 07/01/22 04:36 Labs: Laboratory Results - last 24 hr 06/30/22 12:20: WBC 14.7 H, RBC 3.44 L, Hgb 9.2 L, Hct 30.6 L, MCV 89.0, MCH 26.7 L, MCHC 30.1 L, RDW Std Deviation 55.9 H, RDW Coeff of Ayesha 17.6 H, Plt Count 362, MPV 9.4, Immature Gran % (Auto) 0.700, Neut % (Auto) 87.1 H, Lymph % (Auto) 3.3 L, [place] % (Auto) 8.7, Eos % (Auto) 0.0, Baso % (Auto) 0.2, Absolute Neuts (auto) 12.8 H, Absolute Lymphs (auto) 0.48 L, Nucleated RBC % 0, Differential Comment COMMENT 06/30/22 12:20: Sodium 145, Potassium 4.3, Chloride 110 H, Carbon Dioxide 27.0, Anion Gap 8, BUN 33 H, Creatinine 1.35 H, Estim Creat Clear Calc 34.79, Est GFR (MDRD) Af Amer 64, Est GFR (MDRD) Non-Af 53 L, BUN/Creatinine Ratio 24.4 H, Glucose 123 H, Calcium 9.5, Magnesium 2.3 06/30/22 12:20: Lactic Acid 3.0 H* 06/30/22 12:50: Urine Color Yellow, Urine Clarity Sl. Cloudy, Urine pH 6.5, Ur Specific [place] 1.010, Urine Protein 100 H, Urine Glucose (UA) Normal, Urine Ketones 5 H, Urine Occult Blood 250 H, Urine Nitrite Positive H, Urine Bilirubin Negative, Urine Urobilinogen Normal, Ur Leukocyte Esterase 100 H, Urine RBC 0-5 SEEN, Urine WBC 5-10 SEEN, Ur Squamous Epith Cells 0-5 SEEN, Urine Bacteria 4+, Urine Mucus RARE 06/30/22 16:45: Lactic Acid 2.1 H* 07/01/22 04:36: WBC 10.2, RBC 3.22 L, Hgb 8.5 L, Hct 29.2 L, MCV 90.7, MCH 26.4 L, MCHC 29.1 L, RDW Std Deviation 58.8 H, RDW Coeff of Ayesha 17.6 H, Plt Count 312, MPV 9.1, Immature Gran % (Auto) 0.500, Neut % (Auto) 80.7 H, Lymph % (Auto) 6.5 L, [place] % (Auto) 11.8 H, Eos % (Auto) 0.1, Baso % (Auto) 0.4, Absolute Neuts (auto) 8.3 H, Absolute Lymphs (auto) 0.67 L, Nucleated RBC % 0.2 07/01/22 04:36: Sodium 147 H, Potassium 3.4 L, Chloride 113 H, Carbon Dioxide 23.0, Anion Gap 11, BUN 26 H, Creatinine 1.08, Estim Creat Clear Calc 43.49, Est GFR (MDRD) Af Amer 83, Est GFR (MDRD) Non-Af 69, BUN/Creatinine Ratio 24.1 H, Glucose 92, Calcium 9.3, Total Bilirubin 0.30, AST 77 H, ALT 29, Alkaline Phosphatase 84, Total Protein 7.0, Albumin 2.7 L, Globulin 4.3 H, Albumin/Globulin Ratio 0.6 L 07/01/22 04:36: Iron 21 L, TIBC 312, Iron Saturation 6.7 L, Ferritin 70 Micro: Microbiology 06/30/22 12:20 Blood Culture (Wb) - Left Forearm Bacteria Detection (PCR) - Final Streptococcus pyogenes 06/30/22 12:20 Blood Culture (Wb) - Left Forearm Blood Culture - Preliminary 06/30/22 12:35 Nasal Secretion SARS-CoV-2 & FLU Antigen (Rapid) - Final Radiography Diagnostic Testing: Radiology Impression Brain CT 06/30/22 12:18 IMPRESSION: Chronic involutional changes of the brain. No acute hemorrhage Electronically Signed: Abhijit Steel MD at 13:27 EDT , Physical Exam Narrative General: Sleeping but awakes to verbal stimuli but quickly falls back asleep and does not respond to questions HEENT: Atraumatic, PERRLA, EOMI, Normocephalic Oral: Moist Mucosa Neck: Supple, No JVD Lungs: Diminished, Normal air movement, No rhonchi, No wheeze, No rales Cardiovascular: Tachycardic, Regular Rhythm, Normal S1, Normal S2, No murmurs Abdomen: Soft, Non Tender, Non-Distended, No Hepato-splenomegaly Extremities: No edema, Capillary Refill Less than 3 Seconds Skin: Bilateral moser ulcers that do not appear infected Musculoskeletal: No Tenderness to Palpation of Joints or Extremities Neurological: Moves all extremities but does not cooperate with exam Psych/Mental Status: Flat Assessment & Plan Assessment/Plan (1) UTI (urinary tract infection): (2) Encephalopathy acute: PLAN: Plan 1. Acute metabolic encephalopathy secondary to possible UTI/chronic dementia/JUAN PABLO versus CKD of unclear type ? Continue with antibiotics ? Cultures are pending ? Continue with some gentle IV fluids and hold Lasix ? Continue with the donepezil 2. CAD status post stents/peripheral vascular disease with angioplasty/HTN/HLD/A-fib ? Blood pressures are stable ? Continue with his home blood pressure medications ? We will hold Lasix secondary to probable dehydration ?Continue with Plavix, aspirin, statin ? Not on any anticoagulation 3. Iron deficiency anemia ? Iron is 21 with an iron saturation of 6.7 ? Ferritin is only 70 in the setting of a UTI ? We will provide IV iron, no signs of overt bleeding 4. Neuropathy and spinal stenosis ? He does take carbamazepine twice daily for pain ? This will be decreased while here as it can affect mental status DVT: Lovenox Charges/Coding Visit Charges Inpatient E&M: 46160 Subs Hosp L2
[2022-07-01 09:09] VITALS: O2SAT 92
--- NOTE | 2022-07-01 11:27 | WOUNDNOTE ---
wound photo: right moser
--- NOTE | 2022-07-01 11:28 | WOUNDNOTE ---
wound photo: left moser
--- NOTE | 2022-07-01 11:29 | WOUNDNOTE ---
wound photo: left 2nd toe
--- NOTE | 2022-07-01 16:15 | CASEMGMT ---
Social Work SW met with pt and son Wesley. Pt confirms that he lives at the [facility] and is a prison pt. Pt plans to return there when medically ready. Dionne at the [facility] updated and can accept pt back when ready. Plan: [facility], when medically ready ABDON Recio
[2022-07-01 20:03] VITALS: BP 115/61; PULSE 96; RESP 18; TEMP 37; O2SAT 94
[2022-07-01] MEDS: Mirtazapine 30 MG Tablet PO (20:23)
[2022-07-01] MEDS: Donepezil HCl 10 MG Tablet PO (20:23)
[2022-07-01] MEDS: Atorvastatin Calcium 20 MG Tablet PO (20:23)
[2022-07-01] MEDS: Clopidogrel Bisulfate 75 MG Tablet PO (20:23)
[2022-07-01] MEDS: 0.9% Saline Lock 10 ML Syringe IV (20:26)
[2022-07-02] VITALS (8 sets, daily range): BP systolic 137–160; BP diastolic 79–96; PULSE 90–102; RESP 16–22; TEMP 36.1–37.2; O2SAT 92–95; BMI 25.2
[2022-07-02 06:52] LABS: Absolute Lymphocyte Count 0.61 X10^3/uL (0.83-4.51); Absolute Neutrophil Count 5.5 X10^3/uL (2.0-7.7); Basophil# 0.03 X10^3/uL; Basophil% 0.4 % (0-1); Eosinophil# 0.17 X10^3/uL; Eosinophils% 2.3 % (0-5); Hematocrit 25.5 % (40-54); Hemoglobin 7.5 g/dL (13.0-16.5); Lymphocyte # 0.61 X10^3/ul (0.83-4.51); Lymphocyte % 8.4 % (19-41); Mean Corp Hgb Conc 29.4 g/dL (32-36); Mean Corpuscular Hgb 26.5 pg (27.0-32.0); Mean Corpuscular Volume 90.1 fL (80-94); Mean Platelet Vol. 9.8 fl (6.2-12.0); Monocyte# 0.87 X10^3/uL; Neutrophil # 5.54 X10^3/uL (2.7-7.7); Neutrophil % 76.2 % (47-70); Platelet Count 282 K/mm3 (150-450); RBC Distribution Width CV 17.6 % (11.6-14.6); RBC Distribution Width SD 57.8 fl (35.1-43.9); Red Blood Count 2.83 M/mm3 (4.6-6.2); White Blood Count 7.3 K/mm3 (4.4-11.0)
[2022-07-02 07:37] LABS: Anion Gap 7 (5-15); BUN 22 mg/dL (7-18); BUN/Creat Ratio 23.4 RATIO (10-20); Calcium,Total 8.6 mg/dL (8.5-10.1); Chloride 112 mmol/L (98-107); Creatinine, Serum 0.94 mg/dL (0.70-1.30); EST Glomerular Filtration Rate 80 mL/min (>60); Est Glom Filt Rate - Afr Amer 97 mL/min (>60); Estimated Creatinine Clearance 49.96 ml/min; Glucose 93 mg/dL (74-106); Potassium 3.3 mmol/L (3.5-5.1); Sodium Level 143 mmol/L (136-145)
[2022-07-02] MEDS: carBAMazepine 200 MG Tablet 100 MG PO ×2 (09:09→21:11)
[2022-07-02] MEDS: Pantoprazole Sodium 20 MG Tablet PO (09:09)
[2022-07-02] MEDS: DULoxetine Hcl 30 MG Capsule PO (09:09)
[2022-07-02] MEDS: Metoprolol(XL)Succ 100 MG Tablet PO (09:10)
[2022-07-02] MEDS: Aspirin E.C. 81 MG Tablet PO (09:10)
[2022-07-02] MEDS: Ceftriaxone 1 GM/50 ML BAG IV (09:27)
--- NOTE | 2022-07-02 14:55 | PN_ITS ---
Subjective Subjective Patient seen and examined. He felt better today. He had no complaints and had an uneventful night. He denies any urinary symptoms and denies palpitations, chest pain, dizziness, nausea or vomiting. Review of systems otherwise negative. He has remained hemodynamically stable. Objective Data Objective Data Vital Signs: Vital Signs Temp Pulse Resp BP Pulse Ox O2 Del Method O2 Flow Rate 98.9 F 97 16 154/93 H 94 Room Air 2 07/02/22 12:55 07/02/22 12:55 07/02/22 12:55 07/02/22 12:55 07/02/22 12:55 07/02/22 12:55 07/01/22 10:21 Oxygen Flow Rate (L/min) 2 Oxygen Delivery Method Room Air Weight: 157 lb 3.033 oz Body Mass Index (BMI) 25.2 Intake & Output: Intake and Output for Last 24 Hours 06/30/22 07/01/22 07/02/22 23:59 23:59 23:59 Intake Total 1600 / 1750 2270 / 2270 450 / 450 Output Total 1050 / 1050 850 / 850 Balance 1600 / 1750 1220 / 1220 -400 / -400 Lab / Micro Data Result Diagrams: 07/02/22 05:52 07/02/22 05:52 Labs: Laboratory Results - last 24 hr 07/02/22 05:52: WBC 7.3, RBC 2.83 L, Hgb 7.5 L, Hct 25.5 L, MCV 90.1, MCH 26.5 L , MCHC 29.4 L, RDW Std Deviation 57.8 H, RDW Coeff of Ayesha 17.6 H, Plt Count 282, MPV 9.8, Immature Gran % (Auto) 0.700, Neut % (Auto) 76.2 H, Lymph % (Auto) 8.4 L, [place] % (Auto) 12.0 H, Eos % (Auto) 2.3, Baso % (Auto) 0.4, Absolute Neuts (auto) 5.5, Absolute Lymphs (auto) 0.61 L, Nucleated RBC % 1.0 07/02/22 05:52: Sodium 143, Potassium 3.3 L, Chloride 112 H, Carbon Dioxide 24.0, Anion Gap 7, BUN 22 H, Creatinine 0.94, Estim Creat Clear Calc 49.96, Est GFR (MDRD) Af Amer 97, Est GFR (MDRD) Non-Af 80, BUN/Creatinine Ratio 23.4 H, Glucose 93, Calcium 8.6 Micro: Microbiology 06/30/22 12:20 Blood Culture (Wb) - Left Forearm Bacteria Detection (PCR) - Final Streptococcus pyogenes 06/30/22 12:20 Blood Culture (Wb) - Left Forearm Blood Culture - Preliminary Streptococcus pyogenes 06/30/22 12:40 Blood Culture (Wb) - Right Forearm Blood Culture - Preliminary No growth in 48 hours. 06/30/22 12:50 Urine, Clean Catch Urine Culture - Final Presumptive E. coli 07/01/22 20:15 Stool Stool Occult Blood (MERRICK) - Final Occult Blood Positive 06/30/22 12:35 Nasal Secretion SARS-CoV-2 & FLU Antigen (Rapid) - Final Physical Exam Const alert, oriented x3 and no apparent distress HEENT head/scalp atraumatic, moist oral mucous membranes and oropharynx normal Eyes PERRL and EOMs intact bilaterally Neck supple and no JVD Lymph Lymphatic: no lymphadenopathy noted Resp normal respiratory effort, normal air movement and clear to auscultation bilaterally Cardio regular rate, regular rhythm, S1 normal heart sound, S2 normal heart sound and no murmurs GI normal to inspection, nondistended, normoactive bowel sounds, soft to palpation, non-tender and non-distended Extremity normal capillary refill and no clubbing, cyanosis or edema Skin General Skin Exam: no breakdown Neuro CN's II-XII intact bilaterally, no focal motor deficits, no sensory deficits noted and deep tendon reflexes 2+ bilaterally Psych thought process normal and cooperative Assessment & Plan Assessment/Plan (1) Acute UTI: (2) Acute confusion: PLAN: Plan #Acute encephalopathy due to UTI * Resolved. Patient is alert and oriented and able to carry on a conversation. * He does have underlying chronic dementia but seems alert and oriented today. * On IV ceftriaxone. * Urine culture pending. * #JUAN PABLO: Resolved. Creatinine is down to 0.94. #Hypokalemia: Potassium is 3.3. Replace and trend. #CAD s/p stents: On aspirin and Plavix as well as statin. Stents were last in 2015. Hold aspirin and Plavix in light of positive stool for occult blood #Chronic peripheral vascular disease s/p angioplasty #Hypertension: On beta-juan a #Hyperlipidemia: On statin #A-fib: #Iron Deficiency anemia: * Iron studies showed severe iron deficiency with iron saturation of 46.7. * Stool for occult blood is positive. * Will consult gastroenterology. * Hold aspirin and Plavix as well as Lovenox * Hemoglobin today is down to 7.5. * #History of spinal stenosis with neuropathy: On carbamazepine 200 mg twice daily DVT prophylaxis: SCDs. Lovenox held Charges/Coding Visit Charges Inpatient E&M: 34869 Subs Hosp L2
--- NOTE | 2022-07-02 16:08 | EX.PCM.CON.G ---
HPI Consult Data Date of Consult: 07/02/22 HPI Narrative Reason for Consultation: Anemia HPI Narrative: FEI OLEARY, is a 86 M who presents to the ED with altered mental status. He has a history of atrial fibrillation, coronary artery disease status post stent placement 2015, hypertension, neuropathy who presented to [facility] 06/30/2022 for waxing and waning mental status from [facility].? In the ED he had a white blood cell count of 14.7, hemoglobin 9.2, sodium 145 with chloride 110 as well as BUN of 33 with a creatinine of 1.35 and a lactic acid of 3.? In the ED he had a Tmax of 101.2 with a heart rate of 92 and blood pressure 128/55 saturating 93% on room air.? He remained confused and Urine does show cloudy urine with leukocyte Estrace, nitrites, 4+ bacteria and 5-10 white cells.? Cultures will be sent and this will be treated as UTI.? He was given fluids and Rocephin. 07/02/22 05:52: WBC 7.3, RBC 2.83 L, Hgb 7.5 L, Hct 25.5 L, MCV 90.1, MCH 26.5 L, MCHC 29.4 L, RDW Std Deviation 57.8 H, RDW Coeff of Ayesha 17.6 H, Plt Count 282, MPV 9.8, Immature Gran % (Auto) 0.700, Neut % (Auto) 76.2 H, Lymph % (Auto) 8.4 L, [place] % (Auto) 12.0 H, Eos % (Auto) 2.3, Baso % (Auto) 0.4, Absolute Neuts (auto) 5.5, Absolute Lymphs (auto) 0.61 L, Nucleated RBC % 1.0 07/02/22 05:52: Sodium 143, Potassium 3.3 L, Chloride 112 H, Carbon Dioxide 24.0, Anion Gap 7, BUN 22 H, Creatinine 0.94, Estim Creat Clear Calc 49.96, Est GFR (MDRD) Af Amer 97, Est GFR (MDRD) Non-Af 80, BUN/Creatinine Ratio 23.4 H, Glucose 93, Calcium 8.6 I was called to see him after his hemoglobin and came back at 7.5 which is down from 9.2. Also stools were checked and they were positive for blood. He takes aspirin and Plavix for CAD and he was on Lovenox but has been held due to worsening anemia and Hemoccult positive stools. [facility] Medical History (Updated 07/02/22 @ 16:[address] Chou Friend, DO) Acute diarrheal illness Acute kidney injury Atherosclerotic heart disease of [place] coronary artery without angina pectoris Atrial fibrillation Atrial fibrillation with RVR (05/28/20) Cancer Carpal tunnel syndrome on both sides Chest pain Chronic pain of right heel DDD (degenerative disc disease) Debility Delayed wound healing Dementia Diabetes Essential (primary) hypertension Gait disorder GERD (gastroesophageal reflux disease) Hallucinations History of non-ST elevation myocardial infarction (NSTEMI) (07/02/19) Hyperlipidemia Hypertension Lumbar stenosis Neuropathy Non-healing ulcer of right foot with fat layer exposed Non-smoker Nonhealing ulcer of left lower extremity with fat layer exposed Obstructive sleep apnea Open wound of finger of left hand PAD (peripheral artery disease) Peripheral arterial occlusive disease Peripheral neuropathy Pneumonia due to COVID-19 virus (03/23/20) Prostate cancer Rectal prolapse Retinopathy due to secondary diabetes Right bundle branch block (RBBB) Septic shock Sleep apnea Spondylolisthesis Ulcer of right heel Ulcer of right lower extremity with fat layer exposed Urinary incontinence UTI (urinary tract infection) Home Medications [id number] acid 300 mcg-lycopene 600 mcg-lutein 300 mcg tablet 1 tab PO DAILY HEALTH MAINTENANCE 02/14/18 [History Last Taken 06/30/22] vitamin E 268 mg (400 unit) capsule 400 unit PO DAILY SUPPLEMENT 10/29/18 [History Last Taken 06/30/22] duloxetine 30 mg capsule,delayed release 30 mg PO DAILY DEPRESSION 03/06/19 [History Last Taken 06/30/22] atorvastatin 20 mg tablet 20 mg PO QHS CHOLESTEROL #90 tabs 06/10/19 [Rx Last Taken 06/29/22] isosorbide mononitrate 30 mg tablet,extended release 24 hr 30 mg PO DAILY CHEST PAIN 05/28/20 [History Last Taken 06/30/22] lisinopril 5 mg tablet 5 mg PO DAILY BLOOD PRESSURE 08/26/20 [History Last Taken 06/30/22] donepezil 10 mg tablet 10 mg PO DAILY DEMENTIA 06/17/21 [History Last Taken 06/30/22] clopidogrel 75 mg tablet (Plavix) 75 mg PO 2000 BLOOD THINNER 09/21/21 [History Last Taken 06/29/22] aspirin 81 mg tablet,delayed release (Adult Aspirin Regimen) 81 mg PO DAILY HEART HEALTH 05/12/22 [History Last Taken 06/30/22 08:00] carbamazepine 100 mg capsule,extended release [id number] 200 mg PO BID PAIN 05/12/22 [History Last Taken 06/30/22] Motorized wheelchair #1 ea 06/29/22 [Rx Last Taken Unknown] acetaminophen 500 mg tablet 1,000 mg PO TID LOWER BACK PAIN 06/30/22 [History Last Taken 06/30/22 11:00] furosemide 40 mg tablet (Lasix) 40 mg PO DAILY FLUID 06/30/22 [History Last Taken 06/30/22] metoprolol succinate 100 mg tablet,extended release 24 hr 100 mg PO DAILY BLOOD PRESSURE 06/30/22 [History Last Taken 06/30/22] mirtazapine 30 mg tablet 30 mg PO QHS DEPRESSION 06/30/22 [History Last Taken 06/29/22] oxycodone-acetaminophen 5 mg-325 mg tablet 2 tab PO Q6H PRN PAIN 06/30/22 [History Last Taken 06/30/22 09:54] pantoprazole 20 mg tablet,delayed release 20 mg PO DAILY GERD 06/30/22 [History Last Taken 06/30/22 06:00] potassium chloride 10 mEq tablet,extended release(part/cryst) 20 meq PO BID SUPPLEMENT 06/30/22 [History Last Taken 06/30/22] Allergy/AdvReac Type Severity Reaction Status Date / Time latex Allergy Unknown unknown Verified 06/30/22 11:33 carisoprodol Allergy Other Verified 06/30/22 11:33 itraconazole Allergy Other Verified 06/30/22 11:33 Family History Mother CVA (cerebral vascular accident) Sister Hypertension Surgical History History of angioplasty of peripheral vessel (10/23/13) History of back surgery History of coronary artery stent placement (10/07/15) History of coronary artery stent placement History of hernia repair History of left heart catheterization (07/02/19) History of prostatectomy History of shoulder surgery History of tonsillectomy Social History housing: [facility] Smoking Status: Never smoker alcohol intake: never substance use type: does not use caffeine: Yes Type: tea what type of physical activity do you participate in: none seatbelt use: always do you feel safe at home: Yes Physical Exam Const alert, oriented x3 and no apparent distress HEENT head/scalp atraumatic, moist oral mucous membranes and oropharynx normal Eyes PERRL and EOMs intact bilaterally Neck supple and no JVD Lymph Lymphatic: no lymphadenopathy noted Resp normal respiratory effort, normal air movement and clear to auscultation bilaterally Cardio regular rate, regular rhythm, S1 normal heart sound, S2 normal heart sound and no murmurs GI normal to inspection, nondistended, normoactive bowel sounds, soft to palpation, non-tender and non-distended Extremity normal capillary refill and no clubbing, cyanosis or edema Skin General Skin Exam: no breakdown Neuro CN's II-XII intact bilaterally, no focal motor deficits, no sensory deficits noted and deep tendon reflexes 2+ bilaterally Psych thought process normal and cooperative Lab / Micro Data Result Diagrams: 07/02/22 05:52 07/02/22 05:52 Labs: Laboratory Results - last 24 hr 07/02/22 05:52: WBC 7.3, RBC 2.83 L, Hgb 7.5 L, Hct 25.5 L, MCV 90.1, MCH 26.5 L, MCHC 29.4 L, RDW Std Deviation 57.8 H, RDW Coeff of Ayesha 17.6 H, Plt Count 282, MPV 9.8, Immature Gran % (Auto) 0.700, Neut % (Auto) 76.2 H, Lymph % (Auto) 8.4 L, [place] % (Auto) 12.0 H, Eos % (Auto) 2.3, Baso % (Auto) 0.4, Absolute Neuts (auto) 5.5, Absolute Lymphs (auto) 0.61 L, Nucleated RBC % 1.0 07/02/22 05:52: Sodium 143, Potassium 3.3 L, Chloride 112 H, Carbon Dioxide 24.0, Anion Gap 7, BUN 22 H, Creatinine 0.94, Estim Creat Clear Calc 49.96, Est GFR (MDRD) Af Amer 97, Est GFR (MDRD) Non-Af 80, BUN/Creatinine Ratio 23.4 H, Glucose 93, Calcium 8.6 Micro: Microbiology 06/30/22 12:20 Blood Culture (Wb) - Left Forearm Bacteria Detection (PCR) - Final Streptococcus pyogenes 06/30/22 12:20 Blood Culture (Wb) - Left Forearm Blood Culture - Preliminary Streptococcus pyogenes 06/30/22 12:40 Blood Culture (Wb) - Right Forearm Blood Culture - Preliminary No growth in 48 hours. 06/30/22 12:50 Urine, Clean Catch Urine Culture - Final Presumptive E. coli 07/01/22 20:15 Stool Stool Occult Blood (MERRICK) - Final Occult Blood Positive Assessment & Plan Assessment/Plan (1) Anemia: PLAN: The differential diagnosis for his ongoing blood loss anemia does include upper GI bleed secondary to aspirin Plavix and administration of Lovenox. Also in the differential diagnosis is peptic ulcer disease, angiodysplasia, gastric antral vascular ectasia, Venkatesh's erosions, neoplasia. I think he would benefit from an upper endoscopy and if negative then a colonoscopy to evaluate his upper or lower GI tract to make sure it is safe for him to continue on antiplatelet and anticoagulation. Recommend to check H&H every 6 hours. Recommend iron transfusion. Would also recommend to check B12 and folic acid levels and replete accordingly. Would like to keep his hematocrit greater than 30% and hemoglobin greater than 9. Charges/Coding Visit Charges Inpatient E&M: 94550 Init Hosp L2
[2022-07-02] MEDS: Mirtazapine 30 MG Tablet PO (21:10)
[2022-07-02] MEDS: Donepezil HCl 10 MG Tablet PO (21:10)
[2022-07-02] MEDS: Atorvastatin Calcium 20 MG Tablet PO (21:11)
[2022-07-03] VITALS (9 sets, daily range): BP systolic 122–156; BP diastolic 58–91; PULSE 92–107; RESP 16–20; TEMP 36.6–36.9; O2SAT 88–99; BMI 25.6
--- NOTE | 2022-07-03 01:35 | RAD_ITS ---
INDICATION: sob EXAMINATION/TECHNIQUE: X-RAY - XR Chest 1 View COMPARISON: None. FINDINGS: LINES/DEVICES: None. LUNGS: There is pulmonary vascular congestion. Ill-defined perihilar groundglass opacities may represent mild pulmonary edema. Small bilateral pleural effusions more prominent on the right. MEDIASTINUM AND CARDIOVASCULAR STRUCTURES: Cardiac silhouette not enlarged. Central airways and mediastinal contour are unremarkable. BONES AND SOFT TISSUES: Degenerative arthrosis in the shoulders. RAD/Chest 1 View (Portable) IMPRESSION: Pulmonary edema and small bilateral pleural effusions. Electronically Signed: Cheryle Yates MD at 1:48 EDT ,
[2022-07-03] MEDS: Furosemide 40 MG/4 ML Vial IV ×3 (02:27→18:35)
[2022-07-03] MEDS: Potassium Chloride Oral Tablet 20 MEQ 40 MEQ PO ×3 (02:28→15:32)
[2022-07-03 05:10] LABS: Absolute Lymphocyte Count 0.76 X10^3/uL (0.83-4.51); Absolute Neutrophil Count 4.6 X10^3/uL (2.0-7.7); Basophil# 0.04 X10^3/uL; Basophil% 0.6 % (0-1); Eosinophil# 0.39 X10^3/uL; Eosinophils% 5.9 % (0-5); Hematocrit 27.6 % (40-54); Hemoglobin 8.1 g/dL (13.0-16.5); Lymphocyte # 0.76 X10^3/ul (0.83-4.51); Lymphocyte % 11.5 % (19-41); Mean Corp Hgb Conc 29.3 g/dL (32-36); Mean Corpuscular Hgb 25.8 pg (27.0-32.0); Mean Corpuscular Volume 87.9 fL (80-94); Mean Platelet Vol. 9.5 fl (6.2-12.0); Monocyte# 0.74 X10^3/uL; Monocyte% 11.2 % (0-10); NRBC Flagged by Analyzer 1.4 % (0-5); Neutrophil # 4.61 X10^3/uL (2.7-7.7); Platelet Count 325 K/mm3 (150-450); RBC Distribution Width CV 17.4 % (11.6-14.6); RBC Distribution Width SD 55.7 fl (35.1-43.9); Red Blood Count 3.14 M/mm3 (4.6-6.2); White Blood Count 6.6 K/mm3 (4.4-11.0)
[2022-07-03 05:46] LABS: Anion Gap 7 (5-15); BUN 23 mg/dL (7-18); BUN/Creat Ratio 26.2 RATIO (10-20); Calcium,Total 8.7 mg/dL (8.5-10.1); Chloride 110 mmol/L (98-107); Creatinine, Serum 0.88 mg/dL (0.70-1.30); EST Glomerular Filtration Rate 87 mL/min (>60); Est Glom Filt Rate - Afr Amer 105 mL/min (>60); Estimated Creatinine Clearance 53.37 ml/min; Glucose 103 mg/dL (74-106); Potassium 3.4 mmol/L (3.5-5.1); Sodium Level 143 mmol/L (136-145)
[2022-07-03] MEDS: Isosorbide Mononitrate 30 MG Tablet PO ×2 (10:04→10:28)
[2022-07-03] MEDS: Ceftriaxone 1 GM/50 ML BAG IV (10:20)
[2022-07-03] MEDS: 0.9% Saline Lock 10 ML Syringe IV ×3 (10:21→18:35)
[2022-07-03] MEDS: Metoprolol(XL)Succ 100 MG Tablet PO (10:28)
[2022-07-03] MEDS: carBAMazepine 200 MG Tablet 100 MG PO ×2 (10:32→21:09)
[2022-07-03] MEDS: Pantoprazole Sodium 20 MG Tablet PO (10:38)
[2022-07-03] MEDS: DULoxetine Hcl 30 MG Capsule PO (10:38)
--- NOTE | 2022-07-03 11:21 | PN_ITS ---
Subjective Subjective Patient seen and examined. He was quite drowsy this morning though he would awake to voice. Per his nurse, patient was noted to be short of breath and lethargic overnight. He was lethargic and not taking his meds this morning, but that subsequently resolved later in the morning. He has otherwise remained hemodynamically stable. Objective Data Objective Data Vital Signs: Vital Signs Temp Pulse Resp BP Pulse Ox O2 Del Method O2 Flow Rate 98.3 F 107 H 18 137/81 H 98 Nasal Cannula 2 07/03/22 08:10 07/03/22 10:28 07/03/22 08:10 07/03/22 10:28 07/03/22 08:10 07/03/22 09:20 07/03/22 09:20 Oxygen Flow Rate (L/min) 2 Oxygen Delivery Method Nasal Cannula Weight: 159 lb 6.307 oz Body Mass Index (BMI) 25.6 Intake & Output: Intake and Output for Last 24 Hours 07/01/22 07/02/22 07/03/22 23:59 23:59 23:59 Intake Total 2270 / 2270 750 / 900 150 / 150 Output Total 1050 / 1050 1300 / 1500 2400 / 2400 Balance 1220 / 1220 -550 / -600 -2250 / -2250 Lab / Micro Data Result Diagrams: 07/03/22 05:04 07/03/22 05:04 Labs: Laboratory Results - last 24 hr 07/03/22 05:04: WBC 6.6, RBC 3.14 L, Hgb 8.1 L, Hct 27.6 L, MCV 87.9, MCH 25.8 L , MCHC 29.3 L, RDW Std Deviation 55.7 H, RDW Coeff of Ayesha 17.4 H, Plt Count 325, MPV 9.5, Immature Gran % (Auto) 0.800, Neut % (Auto) 70.0, Lymph % (Auto) 11.5 L , [place] % (Auto) 11.2 H, Eos % (Auto) 5.9 H, Baso % (Auto) 0.6, Absolute Neuts (auto) 4.6, Absolute Lymphs (auto) 0.76 L, Nucleated RBC % 1.4 07/03/22 05:04: Sodium 143, Potassium 3.4 L, Chloride 110 H, Carbon Dioxide 26.0, Anion Gap 7, BUN 23 H, Creatinine 0.88, Estim Creat Clear Calc 53.37, Est GFR (MDRD) Af Amer 105, Est GFR (MDRD) Non-Af 87, BUN/Creatinine Ratio 26.2 H, Glucose 103, Calcium 8.7 Micro: Microbiology 06/30/22 12:20 Blood Culture (Wb) - Left Forearm Bacteria Detection (PCR) - Final Streptococcus pyogenes 06/30/22 12:20 Blood Culture (Wb) - Left Forearm Blood Culture - Preliminary Streptococcus group A 06/30/22 12:40 Blood Culture (Wb) - Right Forearm Blood Culture - Preliminary No growth in 48 hours. 06/30/22 12:50 Urine, Clean Catch Urine Culture - Final Presumptive E. coli 07/01/22 20:15 Stool Stool Occult Blood (MERRICK) - Final Occult Blood Positive 06/30/22 12:35 Nasal Secretion SARS-CoV-2 & FLU Antigen (Rapid) - Final Radiography Diagnostic Testing: Radiology Impression Chest X-Ray 07/03/22 01:35 IMPRESSION: Pulmonary edema and small bilateral pleural effusions. Electronically Signed: Cheryle Yates MD at 1:48 EDT , Physical Exam Const no apparent distress Constitutional Narrative: lethargic but wakes up to voice Orientation / Consciousness: lethargic HEENT head/scalp atraumatic, moist oral mucous membranes and oropharynx normal Eyes PERRL and EOMs intact bilaterally Neck supple and no JVD Lymph Lymphatic: no lymphadenopathy noted Resp Resp Narrative: mildly diminished breath sounds bibasally, no wheezes or crackles. Cardio regular rate, regular rhythm, S1 normal heart sound, S2 normal heart sound and no murmurs GI normal to inspection, nondistended, normoactive bowel sounds, soft to palpation, non-tender and non-distended Extremity normal capillary refill and no clubbing, cyanosis or edema Skin General Skin Exam: no breakdown Neuro CN's II-XII intact bilaterally, no focal motor deficits, no sensory deficits noted and deep tendon reflexes 2+ bilaterally Neuro Narrative: lethargic Psych Psych Narrative: lethargic Assessment & Plan Assessment/Plan (1) Acute UTI: (2) Acute confusion: PLAN: Plan #Acute encephalopathy due to UTI * patient lethargic during review this morning, but this subsequently resolved. * on IV ceftriaxone * urine culture pending * * #JUAN PABLO: Resolved. #Hypokalemia: Potassium is 3.4 today. Will replace and trend. #CAD s/p stents: On aspirin and Plavix as well as statin. Stents were last in 2015. aspirin and Plavix on hold in light of positive stool for occult blood #Chronic peripheral vascular disease s/p angioplasty #Hypertension: On metoprolol #Hyperlipidemia: On statin #A-fib:on metoprolol #Iron Deficiency anemia: * Iron studies showed severe iron deficiency with iron saturation of 6.7. * Stool for occult blood is positive. * gastroenterology consulted; recommends EGD and/or colonoscopy * Hold aspirin and Plavix as well as Lovenox * Hemoglobin today is 8.1 * #History of spinal stenosis with neuropathy: On carbamazepine 200 mg twice daily DVT prophylaxis: SCDs. Charges/Coding Visit Charges Inpatient E&M: 42167 Subs Hosp L2
[2022-07-03] MEDS: Atorvastatin Calcium 20 MG Tablet PO (21:09)
[2022-07-03] MEDS: Mirtazapine 30 MG Tablet PO (21:09)
[2022-07-03] MEDS: Donepezil HCl 10 MG Tablet PO (21:09)
[2022-07-04] VITALS (9 sets, daily range): BP systolic 119–126; BP diastolic 62–69; PULSE 64–107; RESP 16–20; TEMP 36.6–37.3; O2SAT 85–99; BMI 23.8
[2022-07-04 05:29] LABS: Anion Gap 10 (5-15); BUN 25 mg/dL (7-18); BUN/Creat Ratio 27.2 RATIO (10-20); Calcium,Total 8.9 mg/dL (8.5-10.1); Chloride 104 mmol/L (98-107); Creatinine, Serum 0.92 mg/dL (0.70-1.30); EST Glomerular Filtration Rate 83 mL/min (>60); Est Glom Filt Rate - Afr Amer 100 mL/min (>60); Estimated Creatinine Clearance 51.05 ml/min; Glucose 101 mg/dL (74-106); Potassium 3.5 mmol/L (3.5-5.1); Sodium Level 143 mmol/L (136-145)
[2022-07-04 08:21] LABS: Vitamin B12 398 pg/mL (211-911)
--- NOTE | 2022-07-04 09:19 | WOUNDNOTE ---
wound photo: right lower leg
--- NOTE | 2022-07-04 09:19 | WOUNDNOTE ---
wound photo: left lower leg
--- NOTE | 2022-07-04 09:20 | WOUNDNOTE ---
wound photo: left 2nd toe
[2022-07-04] MEDS: Potassium Chloride Oral Tablet 20 MEQ 40 MEQ PO (10:22)
[2022-07-04] MEDS: Furosemide 40 MG/4 ML Vial IV ×2 (10:23→16:56)
[2022-07-04] MEDS: 0.9% Saline Lock 10 ML Syringe IV ×2 (10:23→16:56)
[2022-07-04] MEDS: Isosorbide Mononitrate 30 MG Tablet PO (10:23)
[2022-07-04] MEDS: DULoxetine Hcl 30 MG Capsule PO (10:23)
[2022-07-04] MEDS: Pantoprazole Sodium 20 MG Tablet PO (10:23)
[2022-07-04] MEDS: Ceftriaxone 1 GM/50 ML BAG IV (10:23)
[2022-07-04] MEDS: Metoprolol(XL)Succ 100 MG Tablet PO (10:26)
[2022-07-04] MEDS: carBAMazepine 200 MG Tablet 100 MG PO ×2 (10:54→22:43)
--- NOTE | 2022-07-04 11:24 | PN_ITS ---
Subjective Subjective Patient seen and examined. He was comfortably eating breakfast. He had no active complaints and review of systems is otherwise negative. Objective Data Objective Data Vital Signs: Vital Signs Temp Pulse Resp BP Pulse Ox O2 Del Method O2 Flow Rate 97.8 F 89 18 126/62 H 98 Room Air 2 07/04/22 10:27 07/04/22 10:27 07/04/22 10:27 07/04/22 10:27 07/04/22 10:27 07/04/22 10:39 07/04/22 10:27 Oxygen Flow Rate (L/min) 2 Oxygen Delivery Method Room Air Weight: 147 lb 14.883 oz Body Mass Index (BMI) 23.8 Intake & Output: Intake and Output for Last 24 Hours 07/02/22 07/03/22 07/04/22 23:59 23:59 23:59 Intake Total 750 / 900 850 / 1000 150 / 150 Output Total 1300 / 1500 4200 / 5500 1400 / 1400 Balance -550 / -600 -3350 / -4500 -1250 / -1250 Lab / Micro Data Result Diagrams: 07/03/22 05:04 07/04/22 04:30 Labs: Laboratory Results - last 24 hr 07/03/22 08:02: Vitamin B12 398 07/04/22 04:30: Sodium 143, Potassium 3.5, Chloride 104, Carbon Dioxide 29.0, Anion Gap 10, BUN 25 H, Creatinine 0.92, Estim Creat Clear Calc 51.05, Est GFR (MDRD) Af Amer 100, Est GFR (MDRD) Non-Af 83, BUN/Creatinine Ratio 27.2 H, Glucose 101, Calcium 8.9 Micro: Microbiology 06/30/22 12:20 Blood Culture (Wb) - Left Forearm Bacteria Detection (PCR) - Final Streptococcus pyogenes 06/30/22 12:20 Blood Culture (Wb) - Left Forearm Blood Culture - Preliminary Streptococcus group A 06/30/22 12:40 Blood Culture (Wb) - Right Forearm Blood Culture - Preliminary No growth in 48 hours. 06/30/22 12:50 Urine, Clean Catch Urine Culture - Final Presumptive E. coli 07/01/22 20:15 Stool Stool Occult Blood (MERRICK) - Final Occult Blood Positive 06/30/22 12:35 Nasal Secretion SARS-CoV-2 & FLU Antigen (Rapid) - Final Physical Exam Const alert, oriented x3 and no apparent distress General Appearance: cooperative HEENT head/scalp atraumatic, moist oral mucous membranes and oropharynx normal Eyes PERRL and EOMs intact bilaterally Neck supple and no JVD Lymph Lymphatic: no lymphadenopathy noted Resp normal respiratory effort, normal air movement and clear to auscultation bilaterally Resp Narrative: mildly diminished breath sounds bibasally, no wheezes or crackles. Cardio regular rate, regular rhythm, S1 normal heart sound, S2 normal heart sound and no murmurs GI normal to inspection, nondistended, normoactive bowel sounds, soft to palpation, non-tender and non-distended Extremity normal capillary refill, no clubbing, cyanosis or edema and no calf tenderness Skin General Skin Exam: no breakdown Neuro CN's II-XII intact bilaterally, no focal motor deficits, no sensory deficits noted and deep tendon reflexes 2+ bilaterally Psych thought process normal and cooperative Appearance: appropriate Assessment & Plan Assessment/Plan (1) Acute UTI: (2) Acute confusion: PLAN: Plan #Acute encephalopathy due to UTI * on IV ceftriaxone * urine culture growing E coli * blood cultures (/) samples growiing Strep pyogenes. * will consult ID * #Strep bacteremia: as above. It is sensitive to ceftriaxone #JUAN PABLO: Resolved. #Hypokalemia: Resolved. K is 3.5. #CAD s/p stents: On aspirin and Plavix as well as statin. Stents were last in 2016. aspirin and Plavix on hold in light of positive stool for occult blood #Chronic peripheral vascular disease s/p angioplasty #Hypertension: On metoprolol #Hyperlipidemia: On statin #A-fib:on metoprolol #Iron Deficiency anemia: * Iron studies showed severe iron deficiency with iron saturation of 6.7. * Stool for occult blood is positive. * gastroenterology consulted; recommends EGD and/or colonoscopy * Hold aspirin and Plavix as well as Lovenox * Hemoglobin today is pending * #History of spinal stenosis with neuropathy: On carbamazepine 200 mg twice daily DVT prophylaxis: SCDs. Charges/Coding Visit Charges Inpatient E&M: 43957 Subs Hosp L2
--- NOTE | 2022-07-04 13:08 | CON.PCM.ID_ITS ---
Assessment & Plan Assessment/Plan (1) Acute UTI: PLAN: Fever, leukocytosis, and encephalopathy resolved. Ucx with ecoli. 1 of 2 bcx with GAS. On ceftriaxone. Plan for discharge would be omnicef 300mg bid for 4 more days. Will follow, thank you (2) Acute confusion: HPI Consult Data Date of Consult: 07/04/22 HPI Narrative Reason for Consultation: uti HPI Narrative: FEI OLEARY, is a 86 M who presented from [facility] 06/30 with acute onset confusion. No fever or chills, no new rash, lesion, or dysuria. No abd pain. Came to ED, fever to 101.2, admitted on ceftriaxone for suspected uti. Feeling much better today. Full ROS performed and neg except as noted above. FOR[facility]LY [facility] Medical History Acute diarrheal illness Acute kidney injury Atherosclerotic heart disease of [place] coronary artery without angina pectoris Atrial fibrillation Atrial fibrillation with RVR (05/28/20) Cancer Carpal tunnel syndrome on both sides Chest pain Chronic pain of right heel DDD (degenerative disc disease) Debility Delayed wound healing Dementia Diabetes Essential (primary) hypertension Gait disorder GERD (gastroesophageal reflux disease) Hallucinations History of non-ST elevation myocardial infarction (NSTEMI) (07/02/19) Hyperlipidemia Hypertension Lumbar stenosis Neuropathy Non-healing ulcer of right foot with fat layer exposed Non-smoker Nonhealing ulcer of left lower extremity with fat layer exposed Obstructive sleep apnea Open wound of finger of left hand PAD (peripheral artery disease) Peripheral arterial occlusive disease Peripheral neuropathy Pneumonia due to COVID-19 virus (03/23/20) Prostate cancer Rectal prolapse Retinopathy due to secondary diabetes Right bundle branch block (RBBB) Septic shock Sleep apnea Spondylolisthesis Ulcer of right heel Ulcer of right lower extremity with fat layer exposed Urinary incontinence UTI (urinary tract infection) Home Medications gclmdril-vhr-lcyht acid 300 mcg-lycopene 600 mcg-lutein 300 mcg tablet 1 tab PO DAILY HEALTH MAINTENANCE 02/14/18 [History Last Taken 06/30/22] vitamin E 268 mg (400 unit) capsule 400 unit PO DAILY SUPPLEMENT 10/29/18 [Hi story Last Taken 06/30/22] duloxetine 30 mg capsule,delayed release 30 mg PO DAILY DEPRESSION 03/06/19 [History Last Taken 06/30/22] atorvastatin 20 mg tablet 20 mg PO QHS CHOLESTEROL #90 tabs 06/10/19 [Rx Last Taken 06/29/22] isosorbide mononitrate 30 mg tablet,extended release 24 hr 30 mg PO DAILY CHEST PAIN 05/28/20 [History Last Taken 06/30/22] lisinopril 5 mg tablet 5 mg PO DAILY BLOOD PRESSURE 08/26/20 [History Last Taken 06/30/22] donepezil 10 mg tablet 10 mg PO DAILY DEMENTIA 06/17/21 [History Last Taken 06/30/22] clopidogrel 75 mg tablet (Plavix) 75 mg PO 2000 BLOOD THINNER 09/21/21 [History Last Taken 06/29/22] aspirin 81 mg tablet,delayed release (Adult Aspirin Regimen) 81 mg PO DAILY HEART HEALTH 05/12/22 [History Last Taken 06/30/22 08:00] carbamazepine 100 mg capsule,extended release [id number] 200 mg PO BID PAIN 05/12/22 [History Last Taken 06/30/22] Motorized wheelchair #1 ea 06/29/22 [Rx Last Taken Unknown] acetaminophen 500 mg tablet 1,000 mg PO TID LOWER BACK PAIN 06/30/22 [History Last Taken 06/30/22 11:00] furosemide 40 mg tablet (Lasix) 40 mg PO DAILY FLUID 06/30/22 [History Last Taken 06/30/22] metoprolol succinate 100 mg tablet,extended release 24 hr 100 mg PO DAILY BLOOD PRESSURE 06/30/22 [History Last Taken 06/30/22] mirtazapine 30 mg tablet 30 mg PO QHS DEPRESSION 06/30/22 [History Last Taken 06/29/22] oxycodone-acetaminophen 5 mg-325 mg tablet 2 tab PO Q6H PRN PAIN 06/30/22 [History Last Taken 06/30/22 09:54] pantoprazole 20 mg tablet,delayed release 20 mg PO DAILY GERD 06/30/22 [History Last Taken 06/30/22 06:00] potassium chloride 10 mEq tablet,extended release(part/cryst) 20 meq PO BID SUPPLEMENT 06/30/22 [History Last Taken 06/30/22] Allergy/AdvReac Type Severity Reaction Status Date / Time latex Allergy Unknown unknown Verified 06/30/22 11:33 carisoprodol Allergy Other Verified 06/30/22 11:33 itraconazole Allergy Other Verified 06/30/22 11:33 Family History Mother CVA (cerebral vascular accident) Sister Hypertension Surgical History History of angioplasty of peripheral vessel (10/23/13) History of back surgery History of coronary artery stent placement (10/07/15) History of coronary artery stent placement History of hernia repair History of left heart catheterization (07/02/19) History of prostatectomy History of shoulder surgery History of tonsillectomy Social History housing: [facility] Smoking Status: Never smoker alcohol intake: never substance use type: does not use caffeine: Yes Type: tea what type of physical activity do you participate in: none seatbelt use: always do you feel safe at home: Yes Physical Exam Const alert, oriented x3 and no apparent distress General Appearance: cooperative HEENT normocephalic and head/scalp atraumatic Eyes PERRL and EOMs intact bilaterally Neck supple and No nodes Resp normal air movement and clear to auscultation bilaterally Cardio regular rate and regular rhythm GI soft to palpation, non-tender and non-distended Extremity General Extremity: Negative for edema Skin no rashes or lesions noted Neuro CN's II-XII intact bilaterally Lab / Micro Data Attestation: I reviewed the patient's lab results. Result Diagrams: 07/03/22 05:04 07/04/22 04:30 Labs: Laboratory Results - last 24 hr 07/03/22 08:02: Vitamin B12 398 07/04/22 04:30: Sodium 143, Potassium 3.5, Chloride 104, Carbon Dioxide 29.0, Anion Gap 10, BUN 25 H, Creatinine 0.92, Estim Creat Clear Calc 51.05, Est GFR (MDRD) Af Amer 100, Est GFR (MDRD) Non-Af 83, BUN/Creatinine Ratio 27.2 H, Glucose 101, Calcium 8.9
[2022-07-04 15:23] LABS: Absolute Lymphocyte Count 0.73 X10^3/uL (0.83-4.51); Absolute Neutrophil Count 5.6 X10^3/uL (2.0-7.7); Basophil# 0.04 X10^3/uL; Basophil% 0.5 % (0-1); Eosinophil# 0.43 X10^3/uL; Eosinophils% 5.7 % (0-5); Hemoglobin 8.8 g/dL (13.0-16.5); Lymphocyte # 0.73 X10^3/ul (0.83-4.51); Lymphocyte % 9.6 % (19-41); Mean Corp Hgb Conc 30.3 g/dL (32-36); Mean Corpuscular Hgb 26.4 pg (27.0-32.0); Mean Corpuscular Volume 87.1 fL (80-94); Mean Platelet Vol. 10.7 fl (6.2-12.0); Monocyte% 9.2 % (0-10); NRBC Flagged by Analyzer 1.7 % (0-5); Neutrophil # 5.63 X10^3/uL (2.7-7.7); Neutrophil % 73.9 % (47-70); Platelet Count 371 K/mm3 (150-450); RBC Distribution Width CV 17.6 % (11.6-14.6); RBC Distribution Width SD 54.7 fl (35.1-43.9); Red Blood Count 3.33 M/mm3 (4.6-6.2); White Blood Count 7.6 K/mm3 (4.4-11.0)
--- NOTE | 2022-07-04 15:36 | PCM.PROGNOTE ---
Subjective Subjective Patient states that he is feeling a lot better but is still very fatigued. His shortness of breath is improved. Objective Data Objective Data Vital Signs: Vital Signs Temp Pulse Resp BP Pulse Ox O2 Del Method O2 Flow Rate 97.8 F 89 18 126/62 H 98 Room Air 2 07/04/22 10:27 07/04/22 10:27 07/04/22 10:27 07/04/22 10:27 07/04/22 10:27 07/04/22 10:39 07/04/22 10:27 Oxygen Flow Rate (L/min) 2 Oxygen Delivery Method Room Air Weight: 147 lb 14.883 oz Body Mass Index (BMI) 23.8 Intake & Output: Intake and Output for Last 24 Hours 07/02/22 07/03/22 07/04/22 23:59 23:59 23:59 Intake Total 750 / 900 850 / 1000 200 / 200 Output Total 1300 / 1500 4200 / 5500 1400 / 1400 Balance -550 / -600 -3350 / -4500 -1200 / -1200 Lab / Micro Data Result Diagrams: 07/03/22 05:04 07/04/22 04:30 Labs: Laboratory Results - last 24 hr 07/03/22 08:02: Vitamin B12 398 07/04/22 04:30: Sodium 143, Potassium 3.5, Chloride 104, Carbon Dioxide 29.0, Anion Gap 10, BUN 25 H, Creatinine 0.92, Estim Creat Clear Calc 51.05, Est GFR (MDRD) Af Amer 100, Est GFR (MDRD) Non-Af 83, BUN/Creatinine Ratio 27.2 H, Glucose 101, Calcium 8.9 Micro: Microbiology 06/30/22 12:20 Blood Culture (Wb) - Left Forearm Bacteria Detection (PCR) - Final Streptococcus pyogenes 06/30/22 12:20 Blood Culture (Wb) - Left Forearm Blood Culture - Preliminary Streptococcus group A 06/30/22 12:40 Blood Culture (Wb) - Right Forearm Blood Culture - Preliminary No growth in 48 hours. 06/30/22 12:50 Urine, Clean Catch Urine Culture - Final Presumptive E. coli 07/01/22 20:15 Stool Stool Occult Blood (MERRICK) - Final Occult Blood Positive 06/30/22 12:35 Nasal Secretion SARS-CoV-2 & FLU Antigen (Rapid) - Final Physical Exam Const alert, oriented x3 and no apparent distress General Appearance: cooperative HEENT normocephalic and head/scalp atraumatic Eyes PERRL and EOMs intact bilaterally Neck supple and No nodes Resp normal air movement and clear to auscultation bilaterally Cardio regular rate and regular rhythm GI soft to palpation, non-tender and non-distended Extremity General Extremity: Negative for edema Skin no rashes or lesions noted Neuro CN's II-XII intact bilaterally Assessment & Plan Assessment/Plan (1) Anemia: PLAN: The differential diagnosis for his ongoing blood loss anemia does include upper GI bleed secondary to aspirin Plavix and administration of Lovenox. Also in the differential diagnosis is peptic ulcer disease, angiodysplasia, gastric antral vascular ectasia, Venkatesh's erosions, neoplasia. I think he would benefit from an upper endoscopy and if negative then a colonoscopy to evaluate his upper or lower GI tract to make sure it is safe for him to continue on antiplatelet and anticoagulation. Recommend to check H&H every 6 hours. Recommend iron transfusion. Would also recommend to check B12 and folic acid levels and replete accordingly. Would like to keep his hematocrit greater than 30% and hemoglobin greater than 9. N.p.o. at midnight for endoscopy in the morning. Charges/Coding Visit Charges Inpatient E&M: 66043 Subs Hosp L3
[2022-07-04] MEDS: Donepezil HCl 10 MG Tablet PO (22:43)
[2022-07-04] MEDS: Mirtazapine 30 MG Tablet PO (22:43)
[2022-07-04] MEDS: Atorvastatin Calcium 20 MG Tablet PO (22:43)
[2022-07-04] MEDS: Acetaminophen 325 MG Tablet 650 MG PO (22:56)
[2022-07-05] VITALS (14 sets, daily range): BP systolic 102–134; BP diastolic 49–75; PULSE 81–98; RESP 16–18; TEMP 36.4–37.1; O2SAT 94–100; BMI 23.8; BMI 25.2
--- NOTE | 2022-07-05 06:00 | RAD_ITS ---
STUDY: X-RAY CHEST REASON FOR EXAM: Male, 86 years old. Surgery. TECHNIQUE: AP portable upright COMPARISON: 09/02/2022 CXR FINDINGS: Mild cardiomegaly, small pleural effusions similar to prior. No apparent pneumothorax or consolidation. No mediastinal widening. RAD/Chest 1 View (Portable) IMPRESSION: Mild cardiomegaly, small pleural effusions similar to prior. Electronically Signed: Manolo London MD at 5:59 EDT Reading Location ID and State: 1953 [place] Tel , Service support ,
[2022-07-05 06:43] LABS: Absolute Neutrophil Count 4.5 X10^3/uL (2.0-7.7); Basophil# 0.05 X10^3/uL; Basophil% 0.7 % (0-1); Eosinophil# 0.48 X10^3/uL; Eosinophils% 7.1 % (0-5); Hematocrit 29.9 % (40-54); Hemoglobin 8.9 g/dL (13.0-16.5); Lymphocyte % 13.3 % (19-41); Mean Corp Hgb Conc 29.8 g/dL (32-36); Mean Corpuscular Hgb 26.3 pg (27.0-32.0); Mean Corpuscular Volume 88.5 fL (80-94); Mean Platelet Vol. 9.8 fl (6.2-12.0); Monocyte# 0.72 X10^3/uL; Monocyte% 10.7 % (0-10); NRBC Flagged by Analyzer 0.4 % (0-5); Neutrophil # 4.53 X10^3/uL (2.7-7.7); Platelet Count 366 K/mm3 (150-450); RBC Distribution Width CV 18.6 % (11.6-14.6); RBC Distribution Width SD 55.8 fl (35.1-43.9); Red Blood Count 3.38 M/mm3 (4.6-6.2); White Blood Count 6.8 K/mm3 (4.4-11.0)
[2022-07-05 06:55] LABS: Anion Gap 6 (5-15); BUN 29 mg/dL (7-18); BUN/Creat Ratio 29.7 RATIO (10-20); Calcium,Total 8.8 mg/dL (8.5-10.1); Chloride 103 mmol/L (98-107); Creatinine, Serum 0.98 mg/dL (0.70-1.30); EST Glomerular Filtration Rate 77 mL/min (>60); Est Glom Filt Rate - Afr Amer 93 mL/min (>60); Estimated Creatinine Clearance 47.92 ml/min; Glucose 99 mg/dL (74-106); Potassium 3.3 mmol/L (3.5-5.1); Sodium Level 142 mmol/L (136-145)
[2022-07-05 08:49] LABS: Hemoglobin A1c 5.4 % (3.8-5.6)
[2022-07-05] MEDS: Lactated Ringers 1,000 ML 15 ML IV (10:50)
--- NOTE | 2022-07-05 11:01 | PN_ITS ---
Subjective Subjective Patient seen and examined. He had no complaints today and was resting calmly in bed. He had an uneventful night and review of systems otherwise negative. He is for EGD today. He has remained hemodynamically stable. Objective Data Objective Data Vital Signs: Vital Signs Temp Pulse Resp BP Pulse Ox O2 Del Method O2 Flow Rate 97.7 F L 96 18 123/65 H 94 Nasal Cannula 2 07/05/22 09:10 07/05/22 09:10 07/05/22 09:10 07/05/22 09:10 07/05/22 09:10 07/05/22 09:10 07/05/22 09:10 Oxygen Flow Rate (L/min) 2 Oxygen Delivery Method Nasal Cannula Weight: 157 lb 3.033 oz Body Mass Index (BMI) 25.2 Intake & Output: Intake and Output for Last 24 Hours 07/03/22 07/04/22 07/05/22 23:59 23:59 23:59 Intake Total 850 / 1000 200 / 200 Output Total 4200 / 5500 1850 / 1850 250 / 250 Balance -3350 / -4500 -1650 / -1650 -250 / -250 Lab / Micro Data Result Diagrams: 07/05/22 06:10 07/05/22 06:10 Labs: Laboratory Results - last 24 hr 07/04/22 04:30: WBC 7.6, RBC 3.33 L, Hgb 8.8 L, Hct 29.0 L, MCV 87.1, MCH 26.4 L , MCHC 30.3 L, RDW Std Deviation 54.7 H, RDW Coeff of Ayesha 17.6 H, Plt Count 371, MPV 10.7, Immature Gran % (Auto) 1.100 H, Neut % (Auto) 73.9 H, Lymph % (Auto) 9.6 L, Dent % (Auto) 9.2, Eos % (Auto) 5.7 H, Baso % (Auto) 0.5, Absolute Neuts (auto) 5.6, Absolute Lymphs (auto) 0.73 L, Nucleated RBC % 1.7 07/05/22 06:10: WBC 6.8, RBC 3.38 L, Hgb 8.9 L, Hct 29.9 L, MCV 88.5, MCH 26.3 L , MCHC 29.8 L, RDW Std Deviation 55.8 H, RDW Coeff of Ayesha 18.6 H, Plt Count 366, MPV 9.8, Immature Gran % (Auto) 1.200 H, Neut % (Auto) 67.0, Lymph % (Auto) 13.3 L, Dent % (Auto) 10.7 H, Eos % (Auto) 7.1 H, Baso % (Auto) 0.7, Absolute Neuts (auto) 4.5, Absolute Lymphs (auto) 0.90, Nucleated RBC % 0.4 07/05/22 06:10: Sodium 142, Potassium 3.3 L, Chloride 103, Carbon Dioxide 33.0 H , Anion Gap 6, BUN 29 H, Creatinine 0.98, Estim Creat Clear Calc 47.92, Est GFR (MDRD) Af Amer 93, Est GFR (MDRD) Non-Af 77, BUN/Creatinine Ratio 29.7 H, Glu cose 99, Calcium 8.8 07/05/22 06:10: Hemoglobin A1c 5.4 Micro: Microbiology 06/30/22 12:20 Blood Culture (Wb) - Left Forearm Bacteria Detection (PCR) - Final Streptococcus pyogenes 06/30/22 12:20 Blood Culture (Wb) - Left Forearm Blood Culture - Preliminary Streptococcus group A 06/30/22 12:40 Blood Culture (Wb) - Right Forearm Blood Culture - Preliminary No growth in 48 hours. 06/30/22 12:50 Urine, Clean Catch Urine Culture - Final Presumptive E. coli 07/01/22 20:15 Stool Stool Occult Blood (MERRICK) - Final Occult Blood Positive 06/30/22 12:35 Nasal Secretion SARS-CoV-2 & FLU Antigen (Rapid) - Final Radiography Diagnostic Testing: Radiology Impression Chest X-Ray 07/05/22 06:00 IMPRESSION: Mild cardiomegaly, small pleural effusions similar to prior. Electronically Signed: Manolo London MD at 5:59 EDT Reading Location ID and State: On license of [facility] [place] Tel , Service support , Physical Exam Const alert, oriented x3 and no apparent distress General Appearance: cooperative HEENT normocephalic, head/scalp atraumatic, moist oral mucous membranes and oropharynx normal Eyes PERRL and EOMs intact bilaterally Neck supple and no JVD Lymph Lymphatic: no lymphadenopathy noted Resp normal respiratory effort, normal air movement and clear to auscultation bilaterally Resp Narrative: mildly diminished breath sounds bibasally, no wheezes or crackles. On 2L of oxygen by nasal canula Cardio regular rate, regular rhythm, S1 normal heart sound, S2 normal heart sound and no murmurs GI normal to inspection, nondistended, normoactive bowel sounds, soft to palpation, non-tender and non-distended Extremity normal capillary refill, no clubbing, cyanosis or edema and no calf tenderness Skin General Skin Exam: no breakdown Neuro CN's II-XII intact bilaterally, no focal motor deficits, no sensory deficits noted and deep tendon reflexes 2+ bilaterally Neuro Narrative: lethargic Psych thought process normal and cooperative Appearance: appropriate Assessment & Plan Assessment/Plan (1) Acute UTI: (2) Acute confusion: PLAN: Plan #Acute encephalopathy due to UTI * on IV ceftriaxone * urine culture growing E coli * blood cultures (/) samples growiing Strep pyogenes. * ID reviewed patient; recommends patient to be discharged on 4 more days of PO omnicef * #Strep bacteremia: as above. It is sensitive to ceftriaxone #JUAN PABLO: Resolved. #Hypokalemia: potassium is 3.3 today. Will replace and trend. #CAD s/p stents: On aspirin and Plavix as well as statin. Stents were last in 2015. aspirin and Plavix on hold in light of positive stool for occult blood #Chronic peripheral vascular disease s/p angioplasty #Hypertension: On metoprolol #Hyperlipidemia: On statin #A-fib:on metoprolol #Iron Deficiency anemia: * Iron studies showed severe iron deficiency with iron saturation of 6.7. * Stool for occult blood is positive. * gastroenterology on board; recommends EGD and/or colonoscopy * Hold aspirin and Plavix as well as Lovenox * for EGD today. * #History of spinal stenosis with neuropathy: On carbamazepine 200 mg twice daily DVT prophylaxis: SCDs. Charges/Coding Visit Charges Inpatient E&M: 11390 Subs Hosp L2
[2022-07-05 11:11] LABS: Bedside Glucose 84 mg/dL (74-106)
[2022-07-05] MEDS: Ceftriaxone 1 GM/50 ML BAG IV (11:14)
[2022-07-05] MEDS: 0.9% Normal Saline 1,000 ML 15 ML IV (11:15)
--- NOTE | 2022-07-05 11:30 | EGD_PTH ---
PATIENT: FEI OLEARY LOC: [facility] U#:[id number] AGE/SX: 86/M ROOM: [facility]310 RE06/30/[address]: Dr. Katharine Muller MD : 1935 BED: 1 DIS: 07/06/2022 SPEC #: [id number] RECD: 07/05/22 14:29 STATUS: BRENNA MEJIA #: [id number] HIRAL: 07/05/22 11:[address]: José Antonio Smith DEPT: SURGICAL PATHOLOGY RECD BY: Babar Silva ENTERED: 07/06/22 08:28 SP TYPE: EGD BIOPSY OTHR DR: MD Dr. Moody Rankin MD Dr. Paul Nielsen, MD Dr. Paige Pierce, MD Dr. Robert Leininger, MD Tissues: A - Gastric mucous membrane B - Duodenum, NOS Procedures: Special Stain Group II Surgery Specimen Level IV Alcian Blue/PAS (control) HEADER OPERATION: EGD (MAC), biopsy PRE-OP DIAGNOSIS: Anemia TISSUE SUBMITTED: A ? Distal esophagus biopsy, B ? Duodenum biopsy MICROSCOPIC DIAGNOSIS A. Distal esophagus, biopsy: Gastroesophageal junctional mucosa with chronic inflammation. No evidence of goblet cell metaplasia. See comment. B. Duodenum, biopsy: No pathologic change. See comment. AM:maia 07/07/2022 COMMENT A. Alcian blue/PAS stain with matched control supports the above diagnosis. B. A single fragment of squamous mucosa is present in the biopsy. Clinical correlation is suggested. MICROSCOPIC DESCRIPTION Slides are reviewed. GROSS DESCRIPTION A - Received in fixative is one container labeled with the patient's name and designated distal esophagus biopsy. The specimen consists of two irregular fragments of light galvan soft tissue that in aggregate measure 0.6 x 0.3 x 0.1 cm. The specimen is totally submitted in one cassette. B - Received in fixative is one container labeled with the patient's name and designated duodenum biopsy. The specimen consists of multiple irregular fragments of light galvan soft tissue that in aggregate measure 0.8 x 0.4 x 0.1 cm. The specimen is totally submitted in one cassette. / LILA:maia 07/06/2022 TC:3 CPT: 23347 x2, 85130
--- NOTE | 2022-07-05 12:10 | OP.EGD_ITS ---
Patient Name: Joaquin Chandler Procedure Date: 07/05/2022 11:07 AM Date of : 1935 Age: 86 Procedure: Upper GI endoscopy Indications: Iron deficiency anemia Providers: José Antonio Smith DO Medicines: Monitored Anesthesia Care Patient Profile: This is an 86 year old male. Refer to note in patient chart for documentation of history and physical. Patient has symptoms of acute dyspepsia and acute nausea. Complications: No immediate complications. Procedure: Pre-Anesthesia Assessment: - Prior to the procedure, a History and Physical was performed, and patient medications and allergies were reviewed. The patient is competent. The risks and benefits of the procedure and the sedation options and risks were discussed with the patient. All questions were answered and informed consent was obtained. Patient identification and proposed procedure were verified by the physician in the pre-procedure area. Mental Status Examination: alert and oriented. Airway Examination: normal oropharyngeal airway and neck mobility. Respiratory Examination: clear to auscultation. CV Examination: normal. Prophylactic Antibiotics: The patient does not require prophylactic antibiotics. Prior Anticoagulants: The patient has taken no previous anticoagulant or antiplatelet agents. ASA Grade Assessment: II - A patient with mild systemic disease. After reviewing the risks and benefits, the patient was deemed in satisfactory condition to undergo the procedure. The anesthesia plan was to use monitored anesthesia care (MAC). Immediately prior to administration of medications, the patient was re-assessed for adequacy to receive sedatives. The heart rate, respiratory rate, oxygen saturations, blood pressure, adequacy of pulmonary ventilation, and response to care were monitored throughout the procedure. The physical status of the patient was re-assessed after the procedure. After obtaining informed consent, the endoscope was passed under direct vision. Throughout the procedure, the patient's blood pressure, pulse, and oxygen saturations were monitored continuously. The gastroscope was introduced through the mouth, and advanced to the second part of duodenum. The upper GI endoscopy was accomplished without difficulty. The patient tolerated the procedure well. Scope In: 11:56:48 AM Scope Out: 12:02:28 PM Total Procedure Duration Time 0 hours 5 minutes 40 seconds Findings: The Z-line was irregular and was found 40 cm from the incisors. A small hiatal hernia was present. No other significant abnormalities were identified in a careful examination of the stomach. Patchy mild inflammation characterized by congestion (edema) was found in the duodenal bulb. Biopsies were taken with a cold forceps for histology. Verification of patient identification for the specimen was done. Estimated blood loss was minimal. Impression: - Z-line irregular, 40 cm from the incisors. - Small hiatal hernia. - Duodenitis. Biopsied. Recommendation: - Discharge patient to home. - Resume previous diet. - Continue present medications. - Await pathology results. Procedure Code(s): --- Professional --- 94591, Esophagogastroduodenoscopy, flexible, transoral; with biopsy, single or multiple CPT copyright 2017 [employer]. All rights reserved. The codes documented in this report are preliminary and upon insurance coder review may be revised to meet current compliance requirements. José Antonio Smith DO 07/05/2022 12:09:50 PM This report has been signed electronically. Number of Addenda: 0 Note Initiated On: 07/05/2022 11:07 AM
--- NOTE | 2022-07-05 12:11 | OP.CCLET_ITS ---
07/05/2022 Noe Weeks MD [address] [phone] Re : Upper GI endoscopy procedure for Joaquin Chandler Dear Dr. Weeks This procedure was performed on Tuesday, July 05, 2022. My impressions and recommendations are as follows: Impressions : - Z-line irregular, 40 cm from the incisors. - Small hiatal hernia. - Duodenitis. Biopsied. Recommendations : - Discharge patient to home. - Resume previous diet. - Continue present medications. - Await pathology results. My findings are described in the full procedure note, which is enclosed. If I can be of further assistance, please feel free to contact me at . Sincerely, José Antonio Smith, 07/05/2022 12:09:50 PM This report has been signed electronically.
[2022-07-05] MEDS: Potassium Chloride Oral Tablet 20 MEQ 40 MEQ PO (12:57)
[2022-07-05] MEDS: Metoprolol(XL)Succ 100 MG Tablet PO (12:58)
[2022-07-05] MEDS: DULoxetine Hcl 30 MG Capsule PO (12:58)
[2022-07-05] MEDS: Pantoprazole Sodium 20 MG Tablet PO (12:59)
[2022-07-05] MEDS: Furosemide 40 MG/4 ML Vial IV ×2 (12:59→16:52)
[2022-07-05] MEDS: Isosorbide Mononitrate 30 MG Tablet PO (12:59)
[2022-07-05] MEDS: carBAMazepine 200 MG Tablet 100 MG PO ×2 (12:59→21:22)
[2022-07-05] MEDS: 0.9% Saline Lock 10 ML Syringe IV ×2 (13:00→16:52)
--- NOTE | 2022-07-05 13:34 | CASEMGMT ---
Social Work SW sent updated clinical information to [facility]. Pt had EGD today. MD Muller to make determination on d/c. PLAN: [facility], when medically ready. ABDON Villalobos
[2022-07-05] MEDS: Bisacodyl 5 MG Tablet 20 MG PO (15:19)
[2022-07-05 16:09] LABS: Folate, RBC (Hct) Test 26.5 % (37.5-51.0)
[2022-07-05] MEDS: Polyethylene Glycol 3350 BOWEL PREP PO (16:14)
[2022-07-05 18:48] LABS: Folates, RBC Test 1468 ng/mL (>498)
[2022-07-05] MEDS: Mirtazapine 30 MG Tablet PO (21:22)
[2022-07-05] MEDS: Atorvastatin Calcium 20 MG Tablet PO (21:22)
[2022-07-05] MEDS: Donepezil HCl 10 MG Tablet PO (21:22)
[2022-07-06] VITALS (13 sets, daily range): BP systolic 110–145; BP diastolic 65–79; PULSE 78–97; RESP 16–18; TEMP 36.1–37.1; O2SAT 92–100; BMI 25.0
[2022-07-06 06:34] LABS: Absolute Lymphocyte Count 0.75 X10^3/uL (0.83-4.51); Absolute Neutrophil Count 5.5 X10^3/uL (2.0-7.7); Basophil# 0.06 X10^3/uL; Basophil% 0.8 % (0-1); Eosinophil# 0.39 X10^3/uL; Eosinophils% 5.2 % (0-5); Hematocrit 30.3 % (40-54); Hemoglobin 8.9 g/dL (13.0-16.5); Lymphocyte # 0.75 X10^3/ul (0.83-4.51); Mean Corp Hgb Conc 29.4 g/dL (32-36); Mean Corpuscular Hgb 26.2 pg (27.0-32.0); Mean Corpuscular Volume 89.1 fL (80-94); Mean Platelet Vol. 9.6 fl (6.2-12.0); Monocyte# 0.73 X10^3/uL; Monocyte% 9.7 % (0-10); NRBC Flagged by Analyzer 0.4 % (0-5); Neutrophil # 5.47 X10^3/uL (2.7-7.7); Platelet Count 398 K/mm3 (150-450); RBC Distribution Width CV 18.5 % (11.6-14.6); RBC Distribution Width SD 55.5 fl (35.1-43.9); White Blood Count 7.5 K/mm3 (4.4-11.0)
[2022-07-06 06:54] LABS: Anion Gap 6 (5-15); BUN 19 mg/dL (7-18); BUN/Creat Ratio 20.3 RATIO (10-20); Calcium,Total 8.8 mg/dL (8.5-10.1); Chloride 103 mmol/L (98-107); Creatinine, Serum 0.93 mg/dL (0.70-1.30); EST Glomerular Filtration Rate 81 mL/min (>60); Est Glom Filt Rate - Afr Amer 98 mL/min (>60); Glucose 115 mg/dL (74-106); Potassium 3.7 mmol/L (3.5-5.1); Sodium Level 140 mmol/L (136-145)
[2022-07-06] MEDS: Ceftriaxone 1 GM/50 ML BAG IV (10:09)
[2022-07-06] MEDS: 0.9% Saline Lock 10 ML Syringe IV (10:10)
[2022-07-06] MEDS: Metoprolol(XL)Succ 100 MG Tablet PO (10:13)
--- NOTE | 2022-07-06 11:45 | COLBX_PTH ---
PATIENT: FEI OLEARY LOC: [facility] U#:[id number] AGE/SX: 86/M ROOM: ME310 RE06/30/[address]: Dr. Katharine Muller MD : 1935 BED: 1 DIS: 07/06/2022 SPEC #: [id number] RECD: 07/06/22 13:37 STATUS: BRENNA MEJIA #: [id number] HIRAL: 07/06/22 11:[address]: José Antonio Smith DEPT: SURGICAL PATHOLOGY RECD BY: Babar Silva ENTERED: 07/06/22 13:40 SP TYPE: COLON BX OTHR DR: MD Dr. Moody Rankin MD Dr. Paul Nielsen, MD Dr. Paige Pierce, MD Dr. Robert Leininger, MD Tissues: A - Cecum, NOS B - SPLENIC FLEXURE C - Sigmoid colon biopsy Procedures: Surgery Specimen Level IV HEADER OPERATION: Colonoscopy (MAC) and biopsy PRE-OP DIAGNOSIS: Anemia TISSUE SUBMITTED: A ? Cecum polyp, B ? Thickening of splenic flexure, C ? Sigmoid colon polyp MICROSCOPIC DIAGNOSIS A. Cecum, biopsy: Fragments of tubular adenoma. B. Thickening of splenic flexure, biopsy: Fragments of tubular adenoma. C. Sigmoid colon polyp, biopsy: Fragments of tubular adenoma. AM:maia 07/07/2022 MICROSCOPIC DESCRIPTION Slides are reviewed. GROSS DESCRIPTION A - Received in fixative is one container labeled with the patient's name and designated cecal polyp. The specimen consists of two irregular fragments of light galvan soft tissue that in aggregate measure 0.6 x 0.3 x 0.1 cm. The specimen is totally submitted in one cassette. B - Received in fixative is one container labeled with the patient's name and designated thickening of splenic flexure. The specimen consists of two irregular fragments of light galvan soft tissue that in aggregate measure 0.8 x 0.4 x 0.1 cm. The specimen is totally submitted in one cassette. C - Received in fixative is one container labeled with the patient's name and designated sigmoid colon polyp. The specimen consists of one irregular fragment of light galvan soft tissue that measures 0.4 x 0.4 x 0.1 cm. The specimen is totally submitted in one cassette. / SJ:maia 07/06/2022 TC:5 CPT: 35266 x3
--- NOTE | 2022-07-06 12:24 | OP.COLON_ITS ---
Patient Name: Joaquin Chandler Procedure Date: 07/06/2022 11:45 AM Date of : 1935 Age: 86 Procedure: Colonoscopy Indications: Iron deficiency anemia Providers: José Antonio Smith DO Medicines: Monitored Anesthesia Care Patient Profile: This is an 86 year old male. Refer to note in patient chart for documentation of history and physical. Last Colonoscopy: several years ago. Complications: No immediate complications. Procedure: Pre-Anesthesia Assessment: - Prior to the procedure, a History and Physical was performed, and patient medications and allergies were reviewed. The patient is competent. The risks and benefits of the procedure and the sedation options and risks were discussed with the patient. All questions were answered and informed consent was obtained. Patient identification and proposed procedure were verified by the physician. Mental Status Examination: alert and oriented. CV Examination: normal. Prophylactic Antibiotics: The patient does not require prophylactic antibiotics. Prior Anticoagulants: The patient has taken no previous anticoagulant or antiplatelet agents. After reviewing the risks and benefits, the patient was deemed in satisfactory condition to undergo the procedure. The anesthesia plan was to use monitored anesthesia care (MAC). Immediately prior to administration of medications, the patient was re-assessed for adequacy to receive sedatives. The heart rate, respiratory rate, oxygen saturations, blood pressure, adequacy of pulmonary ventilation, and response to care were monitored throughout the procedure. The physical status of the patient was re-assessed after the procedure. After I obtained informed consent, the scope was passed under direct vision. Throughout the procedure, the patient's blood pressure, pulse, and oxygen saturations were monitored continuously. The Colonoscope was introduced through the anus and advanced to the cecum, identified by appendiceal orifice and ileocecal valve. The colonoscopy was performed without difficulty. The patient tolerated the procedure well. The quality of the bowel preparation was good. Scope In: 12:03:24 PM Scope Withdrawal Time 0 hours 7 minutes 41 seconds Scope Out: 12:14:17 PM Total Procedure Duration Time 0 hours 10 minutes 53 seconds Findings: The digital rectal exam findings include decreased sphincter tone. Retroflexion in the rectum was not performed due to abnormal anatomy. Scattered small and large-mouthed diverticula were found in the recto-sigmoid colon, sigmoid colon, descending colon and splenic flexure. Two sessile polyps were found in the sigmoid colon and cecum. The polyps were 1 to 2 mm in size. These polyps were removed with a cold snare. Resection and retrieval were complete. Verification of patient identification for the specimen was done. Estimated blood loss was minimal. Localized mild inflammation characterized by congestion (edema) and loss of vascularity was found at the splenic flexure. Biopsies were taken with a cold forceps for histology. Verification of patient identification for the specimen was done. Estimated blood loss was minimal. One medium-sized localized angiodysplastic lesion with bleeding was found in the cecum. Coagulation for hemostasis using heater probe was successful. Estimated blood loss was minimal. Impression: - Decreased sphincter tone found on digital rectal exam. - Diverticulosis in the recto-sigmoid colon, in the sigmoid colon, in the descending colon and at the splenic flexure. - Two 1 to 2 mm polyps in the sigmoid colon and in the cecum, removed with a cold snare. Resected and retrieved. - Localized mild inflammation was found at the splenic flexure secondary to colitis. Biopsied. - One bleeding colonic angiodysplastic lesion. Treated with a heater probe. Recommendation: - Return Patient to [facility] for [facility]ng[facility]. - Resume Regular Diet. - Continue Present Medications. - Await Pathology Results. - No Repeat Colonoscopy Due To Age. - Capsule endoscopy as an outpatient Procedure Code(s): --- Professional --- 23971, 59, Colonoscopy, flexible; with control of bleeding, any method 61142, Colonoscopy, flexible; with removal of tumor(s), polyp(s), or other lesion(s) by snare technique 57861, 59, Colonoscopy, flexible; with biopsy, single or multiple CPT copyright 2017 [employer]. All rights reserved. The codes documented in this report are preliminary and upon linux developer review may be revised to meet current compliance requirements. José Antonio Smith DO 07/06/2022 12:24:16 PM This report has been signed electronically. Number of Addenda: 0 Note Initiated On: 07/06/2022 11:45 AM
--- NOTE | 2022-07-06 12:25 | OP.CCLET_ITS ---
07/06/2022 Noe Weeks MD [address] [id number] Re : Colonoscopy procedure for Joaquin Chandler Dear Dr. Weeks This procedure was performed on Wednesday, July 06, 2022. My impressions and recommendations are as follows: Impressions : - Decreased sphincter tone found on digital rectal exam. - Diverticulosis in the recto-sigmoid colon, in the sigmoid colon, in the descending colon and at the splenic flexure. - Two 1 to 2 mm polyps in the sigmoid colon and in the cecum, removed with a cold snare. Resected and retrieved. - Localized mild inflammation was found at the splenic flexure secondary to colitis. Biopsied. - One bleeding colonic angiodysplastic lesion. Treated with a heater probe. Recommendations : - Return Patient to [facility]. - Resume Regular Diet. - Continue Present Medications. - Await Pathology Results. - No Repeat Colonoscopy Due To Age. - Capsule endoscopy as an outpatient My findings are described in the full procedure note, which is enclosed. If I can be of further assistance, please feel free to contact me at . Sincerely, José Antonio Smith, 07/06/2022 12:24:16 PM This report has been signed electronically.
[2022-07-06] MEDS: Potassium Chloride Oral Tablet 20 MEQ 40 MEQ PO (13:03)
[2022-07-06] MEDS: DULoxetine Hcl 30 MG Capsule PO (13:03)
[2022-07-06] MEDS: carBAMazepine 200 MG Tablet 100 MG PO (13:04)
[2022-07-06] MEDS: Pantoprazole Sodium 20 MG Tablet PO (13:04)
[2022-07-06] MEDS: Furosemide 40 MG/4 ML Vial IV (13:04)
[2022-07-06] MEDS: Isosorbide Mononitrate 30 MG Tablet PO (13:04)
--- NOTE | 2022-07-06 14:48 | TREXTCAR_ITS ---
Diet Diet Order/Speech Therapy: 07/06/22 13:49 Diet: Cardiac - Heart Healthy Food consistency:: Regular Liquid Consistency:: Regular/Thin Is pt able to select menu?: No Fluid restriction:: 1500 mL Diet Comments: fortified pudding or magic cup w/ meals Routine Orders/Code Status Enema Type: Fleetz Enema Frequency: Daily PRN O2 Frequency: PRN Keep PO Greater than or Equal to (%): 90 Wound(s) Rt moser: Wound Type: Stasis Ulcer Rt moser-below knee: Wound Type: Stasis Ulcer Rt moser-middle of moser: Wound Type: Stasis Ulcer Lt foot-2nd toe: Wound Type: open blister Dressing Change: Adaptic left moser: Wound Type: cluster of stasis ulcers Dressing Change: Adaptic right moser: Wound Type: healed stasis ulcer Dressing Change: dry dressing Therapies Weight Bearing: Weight bearing as tolerated Physical Therapy: Eval and Treat Occupational Therapy: Eval and Treat Problem/Diagnosis (1) Acute UTI: Status: Acute Code(s): N39.0 - Urinary tract infection, site not specified (2) Acute confusion: Status: Acute Code(s): R41.0 - Disorientation, unspecified Plan #Acute encephalopathy due to UTI * on IV ceftriaxone * urine culture growing E coli * blood cultures (04/18) samples growiing Strep pyogenes. * ID reviewed patient; recommends patient to be discharged on 4 more days of PO omnicef * #Strep bacteremia: as above. It is sensitive to ceftriaxone #JUAN PABLO: Resolved. #Hypokalemia: potassium is 3.3 today. Will replace and trend. #CAD s/p stents: On aspirin and Plavix as well as statin. Stents were last in 2016. aspirin and Plavix on hold in light of positive stool for occult blood #Chronic peripheral vascular disease s/p angioplasty #Hypertension: On metoprolol #Hyperlipidemia: On statin #A-fib:on metoprolol #Iron Deficiency anemia: * Iron studies showed severe iron deficiency with iron saturation of 6.7. * Stool for occult blood is positive. * gastroenterology on board; recommends EGD and/or colonoscopy * Hold aspirin and Plavix as well as Lovenox * for EGD today. * #History of spinal stenosis with neuropathy: On carbamazepine 200 mg twice daily DVT prophylaxis: SCDs. Allergies/Procedures Done in Hospital Allergies latex Allergy (Unknown, Verified 06/30/22 11:33) unknown carisoprodol Allergy (Verified 06/30/22 11:33) Other itraconazole Allergy (Verified 06/30/22 11:33) Other Procedures: None Type of Care/Length of Stay Estimated LOS: Convalescent Care Less Than 30 days Type of Care Needed: Skilled Rehab Potential: Fair Prognosis: Fair Additional Orders/Day of Discharge Day of Discharge: 07/06/22 Dietary and Speech Recommendations Dietitian Recommendations/Changes: Rec liberalize fluid restriction as medically able Will provide fortified pudding or magic cup w/ meals for increased nutrition if consumed Rec liberalize diet to regular if po intake worsens Discharge Plan Admission Admit Date/Time: 06/30/22 17:10 Primary Reason for Your Visit: UTI, acute on chronic anemia Attending Provider: Katharine Muller Primary Care Provider: Noe Weeks Consulting Providers: Dia Perez ; Moody Sadler ; Russ Ball Instructions Patient Instructions: ED Bladder Infection, Male (Adult), ED Urinary Tract Infections in Men Discharge Orders/Prescriptions Prescriptions: New cefdinir 300 mg capsule 300 mg PO BID Qty: 8 0RF ferrous sulfate 325 mg (65 mg iron) tablet 325 mg PO BID Qty: 60 1RF Continued duloxetine 30 mg capsule,delayed release(DR/EC) 30 mg PO DAILY donepezil 10 mg tablet 10 mg PO DAILY clopidogrel [Plavix] 75 mg tablet 75 mg PO 1999 aspirin [Adult Aspirin Regimen] 81 mg tablet,delayed release (DR/EC) 81 mg PO DAILY carbamazepine 100 mg capsule, ER multiphase 12 hr 200 mg PO BID (DME) Motorized wheelchair See Rx Instructions .Route .MEDSUPPLY Qty: 1 0RF Rx Instructions: As directed ethybves-xjg-BL-lycopen-lutein 1 EACH tablet 1 tab PO DAILY vitamin E 400 UNIT capsule 400 unit PO DAILY lisinopril 5 MG tablet 5 mg PO DAILY pantoprazole 20 mg tablet,delayed release (DR/EC) 20 mg PO DAILY oxycodone-acetaminophen 5-325 mg Tablet 2 tab PO Q6H PRN (Reason: PAIN ) mirtazapine 30 mg Tablet 30 mg PO QHS furosemide [Lasix] 40 mg tablet 40 mg PO DAILY metoprolol succinate 100 mg tablet extended release 24 hr 100 mg PO DAILY acetaminophen 500 mg Tablet 1,000 mg PO TID potassium chloride 10 mEq tablet,ER particles/crystals 20 meq PO BID atorvastatin 20 mg tablet 20 mg PO QHS Qty: 90 3RF isosorbide mononitrate 30 mg tablet extended release 24 hr 30 mg PO DAILY Referrals / Follow Up: Noe Weeks MD [Primary Care Provider] - Within 2 Weeks José Antonio Smith DO [Med Staff - Active Staff] - Within 2 Weeks Disposition Disposition (needs filled in before D/C Order can be placed): Long Term Facility
--- NOTE | 2022-07-06 14:52 | DS.PCM_ITS ---
Providers Date of Admission: 06/30/22 Date of Discharge: 07/06/22 Primary Care Physician: Dr. Noe Weeks MD Consultations 06/30/22 17:45 Consult: Onc/Wound/real estate transaction coordinator Routine Comment: Reason for Consult:: PVD, wounds on lower legs 07/02/22 15:02 Consult: Gastroenterology Routine Consulting Provider: [facility] Reason for Consult: iron deficiency anemia EMERGENT Consult: No Notified: Yes Date Notified: 07/02/22 Time Notified: 15:02 Method of Notification: Text 07/04/22 11:34 Consult: Infectious Disease Routine Consulting Provider: Russ Ball Reason for Consult: strep pyogenes bacteremia EMERGENT Consult: No Notified: Yes Date Notified: 07/04/22 Time Notified: 11:35 Method of Notification: Verbal Reason For Visit: UTI, CONFUSION, SEPSIS Diagnosis Discharge Diagnosis (1) Acute UTI: Status: Acute Code(s): N39.0 - Urinary tract infection, site not specified (2) Acute confusion: Status: Acute Code(s): R41.0 - Disorientation, unspecified Plan #Acute encephalopathy due to UTI * on IV ceftriaxone * urine culture growing E coli * blood cultures (04/18) samples growiing Strep pyogenes. * ID reviewed patient; recommends patient to be discharged on 4 more days of PO omnicef * #Strep bacteremia: as above. It is sensitive to ceftriaxone #JUAN PABLO: Resolved. #Hypokalemia: potassium is 3.3 today. Will replace and trend. #CAD s/p stents: On aspirin and Plavix as well as statin. Stents were last in 2015. aspirin and Plavix on hold in light of positive stool for occult blood #Chronic peripheral vascular disease s/p angioplasty #Hypertension: On metoprolol #Hyperlipidemia: On statin #A-fib:on metoprolol #Iron Deficiency anemia: * Iron studies showed severe iron deficiency with iron saturation of 6.7. * Stool for occult blood is positive. * gastroenterology on board; recommends EGD and/or colonoscopy * Hold aspirin and Plavix as well as Lovenox * for EGD today. * #History of spinal stenosis with neuropathy: On carbamazepine 200 mg twice daily DVT prophylaxis: SCDs. Medications at Discharge Home Medications [id number] acid 300 mcg-lycopene 600 mcg-lutein 300 mcg tablet 1 tab PO DAILY HEALTH MAINTENANCE 02/14/18 vitamin E 268 mg (400 unit) capsule 400 unit PO DAILY SUPPLEMENT 10/29/18 duloxetine 30 mg capsule,delayed release 30 mg PO DAILY DEPRESSION 03/06/19 atorvastatin 20 mg tablet 20 mg PO QHS CHOLESTEROL #90 tabs 06/10/19 isosorbide mononitrate 30 mg tablet,extended release 24 hr 30 mg PO DAILY CHEST PAIN 05/28/20 lisinopril 5 mg tablet 5 mg PO DAILY BLOOD PRESSURE 08/26/20 donepezil 10 mg tablet 10 mg PO DAILY DEMENTIA 06/17/21 clopidogrel 75 mg tablet (Plavix) 75 mg PO 2000 BLOOD THINNER 09/21/21 aspirin 81 mg tablet,delayed release (Adult Aspirin Regimen) 81 mg PO DAILY HEART HEALTH 05/12/22 carbamazepine 100 mg capsule,extended release [id number] 200 mg PO BID PAIN 05/12/22 Motorized wheelchair #1 ea 06/29/22 acetaminophen 500 mg tablet 1,000 mg PO TID LOWER BACK PAIN 06/30/22 furosemide 40 mg tablet (Lasix) 40 mg PO DAILY FLUID 06/30/22 metoprolol succinate 100 mg tablet,extended release 24 hr 100 mg PO DAILY BLOOD PRESSURE 06/30/22 mirtazapine 30 mg tablet 30 mg PO QHS DEPRESSION 06/30/22 oxycodone-acetaminophen 5 mg-325 mg tablet 2 tab PO Q6H PRN PAIN 06/30/22 pantoprazole 20 mg tablet,delayed release 20 mg PO DAILY GERD 06/30/22 potassium chloride 10 mEq tablet,extended release(part/cryst) 20 meq PO BID SUPPLEMENT 06/30/22 cefdinir 300 mg capsule 300 mg PO BID #8 caps 07/06/22 ferrous sulfate 325 mg (65 mg iron) tablet 325 mg PO BID #60 tabs 07/06/22 Hospital Course Operations None Procedures Colonoscopy and EGD Summary of Care Provided Minutes Spent on Discharge: 50 Hospital Course: Patient is an 86-year-old male with past medical history as outlined was admitted through the ED on 06/30/2022 with altered mental status from his [place] [facility]. He could not give much of a history but was found to be febrile and had an elevated white cell count of 14.2. Urinalysis showed evidence of UTI with 4+ bacteria. He was admitted and treated for acute encephalopathy due to UTI. He was started on IV ceftriaxone. Hospital course was complicated by iron deficiency anemia. He had acute on chronic anemia and iron studies show severe iron deficiency. Stool for occult blood was positive. Aspirin and Plavix as well as Lovenox were held and gastroenterology was consulted. Of note, blood cultures were positive for strep pyogenes and ID was consulted. ID recommended continuing with IV Zosyn and switch to p.o. Omnicef for 4 days at time of discharge. Patient had EGD which showed small hiatal hernia and duodenitis which was biopsied. Colonoscopy showed decreased rectal tone and diverticulosis in the rectosigmoid, sigmoid and descending colon and at the splenic flexure. 1 to 2 mm polyps in the sigmoid colon and cecum were resected and removed and nonbleeding colonic angiodysplastic lesion was treated with heater probe. Patient remained stable and was okayed to resume his aspirin and Plavix. He was discharged to the [facility] facility on 07/06/2022. He is follow-up with his primary care doctor?20 allergy within 2 to 3 weeks. Patient seen and examined prior to discharge. He had no complaints and had an uneventful night. Review of systems otherwise negative. Labs and vitals review ed. Home medication reviewed and reconciled. Of note patient was discharged on p.o. Omnicef 300 mg twice daily for 4 days. Physical Exam Const alert, oriented x3 and no apparent distress Constitutional Narrative: lethargic but wakes up to voice General Appearance: cooperative, comfortable and well kempt Orientation / Consciousness: lethargic HEENT normocephalic, head/scalp atraumatic, hearing grossly normal bilaterally, moist oral mucous membranes and oropharynx normal Mouth: oral and palatal mucosa normal Eyes PERRL, EOMs intact bilaterally and conjunctivae normal Neck no lymphadenopathy, supple and no JVD Lymph Lymphatic: no lymphadenopathy noted Resp normal respiratory effort, normal air movement and clear to auscultation bilaterally Resp Narrative: mildly diminished breath sounds bibasally, no wheezes or crackles. On 2L of oxygen by nasal canula Cardio regular rate, regular rhythm, S1 normal heart sound, S2 normal heart sound and no murmurs GI normal to inspection, nondistended, normoactive bowel sounds, soft to palpation, non-tender and non-distended Extremity normal to inspection, full ROM, normal capillary refill, no clubbing, cyanosis or edema and no calf tenderness Skin no rashes or lesions noted General Skin Exam: no breakdown Neuro oriented x3, CN's II-XII intact bilaterally, moves all extremities, no focal motor deficits, no sensory deficits noted and deep tendon reflexes 2+ bilaterally Sensorium / Orientation: awake and alert Motor Exam: strength 5/5 throughout Psych thought process normal and cooperative Appearance: appropriate Weight / BMI Weight Weight: 155 lb 13.869 oz Body Mass Index (BMI) 25.0 ABG / Lab / Microbiology Data Result Diagrams: 07/06/22 06:00 07/06/22 06:00 Laboratory: Laboratory Results - last 24 hr 07/03/22 08:02: RBC Folate Hemolysate 389.0, RBC Folate 1468, Hematocrit 26.5 L 07/06/22 06:00: WBC 7.5, RBC 3.40 L, Hgb 8.9 L, Hct 30.3 L, MCV 89.1, MCH 26.2 L , MCHC 29.4 L, RDW Std Deviation 55.5 H, RDW Coeff of Ayesha 18.5 H, Plt Count 398, MPV 9.6, Immature Gran % (Auto) 1.300 H, Neut % (Auto) 73.0 H, Lymph % (Auto) 10.0 L, [place] % (Auto) 9.7, Eos % (Auto) 5.2 H, Baso % (Auto) 0.8, Absolute Neuts (auto) 5.5, Absolute Lymphs (auto) 0.75 L, Nucleated RBC % 0.4 07/06/22 06:00: Sodium 140, Potassium 3.7, Chloride 103, Carbon Dioxide 31.0, Anion Gap 6, BUN 19 H, Creatinine 0.93, Estim Creat Clear Calc 50.50, Est GFR (MDRD) Af Amer 98, Est GFR (MDRD) Non-Af 81, BUN/Creatinine Ratio 20.3 H, Glucose 115 H, Calcium 8.8 Microbiology: Microbiology 06/30/22 12:20 Blood Culture (Wb) - Left Forearm Bacteria Detection (PCR) - Final Streptococcus pyogenes 06/30/22 12:20 Blood Culture (Wb) - Left Forearm Blood Culture - Final Streptococcus group A 06/30/22 12:40 Blood Culture (Wb) - Right Forearm Blood Culture - Final No growth in 5 days. 06/30/22 12:50 Urine, Clean Catch Urine Culture - Final Presumptive E. coli 07/01/22 20:15 Stool Stool Occult Blood (MERRICK) - Final Occult Blood Positive 06/30/22 12:35 Nasal Secretion SARS-CoV-2 & FLU Antigen (Rapid) - Final D/C Instructions Discharge Diet: Low fat / Low cholesterol Discharge Activity: Return to Normal Activity Weight Bearing Status: Weight bearing as tolerated Call your doctor if you observe: Fever of 101 or Higher, Shortness of breath, Swelling in the ankles, Chest pain and Increased palpitations (irregular heartbeat) Meaningful Use Info Meaningful Use Diagnoses (Choose all that apply): None applicable Discharge Plan Admission Admit Date/Time: 06/30/22 17:10 Primary Reason for Your Visit: UTI, acute on chronic anemia Attending Provider: Katharine Muller Primary Care Provider: Noe Weeks Consulting Providers: Dia Perez ; Moody Sadler ; Russ Ball Instructions Patient Instructions: ED Bladder Infection, Male (Adult), ED Urinary Tract Infections in Men Discharge Orders/Prescriptions Prescriptions: New cefdinir 300 mg capsule 300 mg PO BID Qty: 8 0RF ferrous sulfate 325 mg (65 mg iron) tablet 325 mg PO BID Qty: 60 1RF Continued duloxetine 30 mg capsule,delayed release(DR/EC) 30 mg PO DAILY donepezil 10 mg tablet 10 mg PO DAILY clopidogrel [Plavix] 75 mg tablet 75 mg PO 1999 aspirin [Adult Aspirin Regimen] 81 mg tablet,delayed release (DR/EC) 81 mg PO DAILY carbamazepine 100 mg capsule, ER multiphase 12 hr 200 mg PO BID (DME) Motorized wheelchair See Rx Instructions .Route .MEDSUPPLY Qty: 1 0RF Rx Instructions: As directed cuybcthr-jzj-WC-lycopen-lutein 1 EACH tablet 1 tab PO DAILY vitamin E 400 UNIT capsule 400 unit PO DAILY lisinopril 5 MG tablet 5 mg PO DAILY pantoprazole 20 mg tablet,delayed release (DR/EC) 20 mg PO DAILY oxycodone-acetaminophen 5-325 mg Tablet 2 tab PO Q6H PRN (Reason: PAIN ) mirtazapine 30 mg Tablet 30 mg PO QHS furosemide [Lasix] 40 mg tablet 40 mg PO DAILY metoprolol succinate 100 mg tablet extended release 24 hr 100 mg PO DAILY acetaminophen 500 mg Tablet 1,000 mg PO TID potassium chloride 10 mEq tablet,ER particles/crystals 20 meq PO BID atorvastatin 20 mg tablet 20 mg PO QHS Qty: 90 3RF isosorbide mononitrate 30 mg tablet extended release 24 hr 30 mg PO DAILY Referrals / Follow Up: Noe Weeks MD [Primary Care Provider] - Within 2 Weeks José Antonio Smith DO [Med Staff - Active Staff] - Within 2 Weeks Disposition Disposition (needs filled in before D/C Order can be placed): Assisted Facility Charges/Coding Visit Charges Inpatient E&M: 58041 Disch Hosp >30min
--- NOTE | 2022-07-06 15:31 | PHA.DC.MR ---
Pharmacy Service has performed discharge medication reconciliation for this patient. The patient's discharge medication list was reviewed for discrepancies and discrepancies were resolved. Continue current medications per Dr. Smith note. Home Medications obrhhtdn-zmk-jrqha acid 300 mcg-lycopene 600 mcg-lutein 300 mcg tablet 1 tab PO DAILY HEALTH MAINTENANCE 02/14/18 vitamin E 268 mg (400 unit) capsule 400 unit PO DAILY SUPPLEMENT 10/29/18 duloxetine 30 mg capsule,delayed release 30 mg PO DAILY DEPRESSION 03/06/19 atorvastatin 20 mg tablet 20 mg PO QHS CHOLESTEROL #90 tabs 06/10/19 isosorbide mononitrate 30 mg tablet,extended release 24 hr 30 mg PO DAILY CHEST PAIN 05/28/20 lisinopril 5 mg tablet 5 mg PO DAILY BLOOD PRESSURE 08/26/20 donepezil 10 mg tablet 10 mg PO DAILY DEMENTIA 06/17/21 clopidogrel 75 mg tablet (Plavix) 75 mg PO 2000 BLOOD THINNER 09/21/21 aspirin 81 mg tablet,delayed release (Adult Aspirin Regimen) 81 mg PO DAILY HEART HEALTH 05/12/22 carbamazepine 100 mg capsule,extended release [id number] 200 mg PO BID PAIN 05/12/22 Motorized wheelchair #1 ea 06/29/22 acetaminophen 500 mg tablet 1,000 mg PO TID LOWER BACK PAIN 06/30/22 furosemide 40 mg tablet (Lasix) 40 mg PO DAILY FLUID 06/30/22 metoprolol succinate 100 mg tablet,extended release 24 hr 100 mg PO DAILY BLOOD PRESSURE 06/30/22 mirtazapine 30 mg tablet 30 mg PO QHS DEPRESSION 06/30/22 oxycodone-acetaminophen 5 mg-325 mg tablet 2 tab PO Q6H PRN PAIN 06/30/22 pantoprazole 20 mg tablet,delayed release 20 mg PO DAILY GERD 06/30/22 potassium chloride 10 mEq tablet,extended release(part/cryst) 20 meq PO BID SUPPLEMENT 06/30/22 cefdinir 300 mg capsule 300 mg PO BID #8 caps 07/06/22 ferrous sulfate 325 mg (65 mg iron) tablet 325 mg PO BID #60 tabs 07/06/22
--- NOTE | 2022-07-06 15:42 | CASEMGMT ---
Addendum entered by Lexy Crews 07/06/22 15:46: Pt son, Wesley, was informed via pc of pt's transport time to [facility] this evening and voiced understanding. Wesley had no questions at this time. Original Note: Social Work? SW notified pt and pt family of discharge to [facility] today. [facility] for 6:00[facility]. SW unsure if [facility] sending wheelchair or cot. SW explained pt has intermittent confusion d/t dementia but according to nursing staff pt has been up in chair and appears mostly lucid at this time. Dispatch informed would send whatever is appropriate according to lead EMT. SW faxed all discharge orders to [facility] via [facility] and notified of discharge time. SW notified pt nurse of transport time. SW made copies of discharge orders and placed on pt chart. Sent original orders in envelope with pt upon discharge.?? Disposition: [facility], intermediate level of care? ABDON Villalobos?
== END 2022-07-06 17:25 | disposition skilled nursing facility (03) | DRG 689 ==
LOC: ED 14:56 → MS3 17:21
PROVIDERS: Anesthesiology; Family Medicine; Internal Medicine Gastroenterology; Admitting Provider Internal Medicine; Emergency Provider Emergency Medicine; PCP Family Medicine; Visit Provider Student in an Organized Health Care Education/Training Program
PROC: 0DJ08ZZ Inspection of Upper Intestinal Tract, Via Natural or Artificial Opening Endoscopic (ICD-10-PCS; CPT 43235; principal; 2022-07-05 11:25)
PROC: 0DJD8ZZ Inspection of Lower Intestinal Tract, Via Natural or Artificial Opening Endoscopic (ICD-10-PCS; CPT 45378; principal; 2022-07-06 11:40)
DX: N39.0 Urinary tract infection, site not specified (principal); K55.21 Angiodysplasia of colon with hemorrhage; G93.41 Metabolic encephalopathy; R78.81 Bacteremia; N17.9 Acute kidney failure, unspecified; E87.20 Acidosis, unspecified; E13.40 Other specified diabetes mellitus with diabetic neuropathy, unspecified; E13.9 Other specified diabetes mellitus without complications; B95.5 Unspecified streptococcus as the cause of diseases classified elsewhere; E13.51 Other specified diabetes mellitus with diabetic peripheral angiopathy without gangrene; E13.622 Other specified diabetes mellitus with other skin ulcer; F03.90 Unspecified dementia, unspecified severity, without behavioral disturbance, psychotic disturbance, mood disturbance, and anxiety; I48.91 Unspecified atrial fibrillation; E13.42 Other specified diabetes mellitus with diabetic polyneuropathy; I73.9 Peripheral vascular disease, unspecified; D50.9 Iron deficiency anemia, unspecified; M48.00 Spinal stenosis, site unspecified; I25.10 Atherosclerotic heart disease of native coronary artery without angina pectoris; E78.5 Hyperlipidemia, unspecified; I45.4 Nonspecific intraventricular block; I10 Essential (primary) hypertension; E87.6 Hypokalemia; K44.9 Diaphragmatic hernia without obstruction or gangrene; K29.80 Duodenitis without bleeding; K57.30 Diverticulosis of large intestine without perforation or abscess without bleeding; K63.5 Polyp of colon; G89.29 Other chronic pain; Z79.02 Long term (current) use of antithrombotics/antiplatelets; Z79.82 Long term (current) use of aspirin; Z86.16 Personal history of COVID-19; Z95.5 Presence of coronary angioplasty implant and graft; Z82.3 Family history of stroke; B96.20 Unspecified Escherichia coli [E. coli] as the cause of diseases classified elsewhere
CPT/HCPCS: 36415; 70450; 71045; 80048; 80053; 81001; 82274; 82607; 82728; 82747; 82962; 83036; 83540; 83550; 83605; 83735; 85014; 85025; 87040; 87086; 87088; 87149; 87186; 87426; 87428; 88305; 88313; 93005; 97110; 97116; 97162; 97166; 97530; 97535; 99252; 99285; J7030; J7040; J7050; J7120; A4216; G0463; J1940; J2405; J2916

== ENCOUNTER → 2022-08-16 | Outpatient (CLI) | payer MEDICARE, OTHER, SELFPAY ==
[2022-08-16 09:37] LABS: Absolute Lymphocyte Count 0.66 X10^3/uL (0.83-4.51); Absolute Neutrophil Count 3.8 X10^3/uL (2.0-7.7); Basophil# 0.03 X10^3/uL; Basophil% 0.6 % (0-1); Eosinophil# 0.24 X10^3/uL; Eosinophils% 4.5 % (0-5); Hematocrit 39.1 % (40-54); Hemoglobin 12.3 g/dL (13.0-16.5); Lymphocyte # 0.66 X10^3/ul (0.83-4.51); Lymphocyte % 12.3 % (19-41); Mean Corp Hgb Conc 31.5 g/dL (32-36); Mean Corpuscular Hgb 29.4 pg (27.0-32.0); Mean Corpuscular Volume 93.5 fL (80-94); Mean Platelet Vol. 8.7 fl (6.2-12.0); Monocyte# 0.59 X10^3/uL; NRBC Flagged by Analyzer 0 % (0-5); Neutrophil # 3.82 X10^3/uL (2.7-7.7); Neutrophil % 71.4 % (47-70); POSITIVE MORPHOLOGY YES; Platelet Count 259 K/mm3 (150-450); RBC Distribution Width CV 24.2 % (11.6-14.6); RBC Distribution Width SD 80.6 fl (35.1-43.9); Red Blood Count 4.18 M/mm3 (4.6-6.2); White Blood Count 5.4 K/mm3 (4.4-11.0)
[2022-08-16 09:39] LABS: Differential Indicated SCAN CRITERIA MET
[2022-08-16 09:56] LABS: Anisocytosis 2+; Differential Comment SCANNED; Macrocytosis 1+; Microcytosis 1+
[2022-08-16 10:07] LABS: Ferritin 79 ng/mL (26-388); Iron 111 ug/dL (65-175); Iron Binding Capacity,Total 255 ug/dL (250-450); PERCENT IRON SATURATION 43.5 % (15.0-55.0)
[2022-08-18 16:09] LABS: Albumin 3.1 g/dL (2.9-4.4); Alpha-1-Globulins 0.3 g/dL (0.0-0.4); Alpha-2-Globulins 0.8 g/dL (0.4-1.0); Gamma Globulin 0.8 g/dL (0.4-1.8); IMMUNOFIXATION RESULT,S Comment: (.); Immunoglobulin A 326 mg/dL (61-437); Immunoglobulin G 924 mg/dL (603-1613); Immunoglobulin M 45 mg/dL (15-143); PROEL- TOTAL PROTEIN 6.2 g/dL (6.0-8.5)
== END | disposition home or self-care (01) ==
PROVIDERS: Psychiatry & Neurology Neurology; PCP Family Medicine; Referring Provider Nurse Practitioner Adult Health; Visit Provider Nurse Practitioner Adult Health
DX: G62.9 Polyneuropathy, unspecified (principal); L97.522 Non-pressure chronic ulcer of other part of left foot with fat layer exposed; D64.9 Anemia, unspecified
CPT/HCPCS: 36415; 82728; 82784; 83540; 83550; 84165; 85025; 86334

== ENCOUNTER → 2022-09-14 | Outpatient (REF) | payer MEDICARE, OTHER, SELFPAY ==
[2022-09-14 06:28] LABS: Absolute Lymphocyte Count 0.66 X10^3/uL (0.83-4.51); Absolute Neutrophil Count 2.8 X10^3/uL (2.0-7.7); Basophil# 0.03 X10^3/uL; Basophil% 0.7 % (0-1); Eosinophil# 0.18 X10^3/uL; Eosinophils% 4.1 % (0-5); Hematocrit 36.3 % (40-54); Hemoglobin 11.5 g/dL (13.0-16.5); Lymphocyte # 0.66 X10^3/ul (0.83-4.51); Lymphocyte % 14.9 % (19-41); Mean Corp Hgb Conc 31.7 g/dL (32-36); Mean Corpuscular Hgb 30.7 pg (27.0-32.0); Mean Corpuscular Volume 97.1 fL (80-94); Mean Platelet Vol. 9.4 fl (6.2-12.0); Monocyte# 0.72 X10^3/uL; Monocyte% 16.2 % (0-10); NRBC Flagged by Analyzer 0 % (0-5); Neutrophil # 2.84 X10^3/uL (2.7-7.7); Neutrophil % 63.9 % (47-70); POSITIVE MORPHOLOGY YES; Platelet Count 245 K/mm3 (150-450); RBC Distribution Width CV 22.2 % (11.6-14.6); RBC Distribution Width SD 78.7 fl (35.1-43.9); Red Blood Count 3.74 M/mm3 (4.6-6.2); White Blood Count 4.4 K/mm3 (4.4-11.0)
[2022-09-14 06:33] LABS: Differential Indicated SCAN CRITERIA MET
[2022-09-14 06:51] LABS: ALB/GLOB Ratio 0.8 RATIO (0.9-2.4); AST(SGOT) 48 U/L (15-37); Alanine Aminotransfer ALT/SGPT 45 U/L (16-61); Albumin, Serum 2.6 g/dL (3.2-5.0); Alkaline Phosphatase 93 U/L (45-117); Anion Gap 5 (5-15); BUN 20 mg/dL (7-18); BUN/Creat Ratio 27.9 RATIO (10-20); Calcium,Total 8.4 mg/dL (8.5-10.1); Chloride 108 mmol/L (98-107); Cholesterol 150 mg/dL (200); Creatinine, Serum 0.72 mg/dL (0.70-1.30); EST Glomerular Filtration Rate 110 mL/min (>60); Est Glom Filt Rate - Afr Amer 133 mL/min (>60); Globulin 3.3 g/dL (2.2-4.2); Glucose 96 mg/dL (74-106); High Density Lipoprotein 45 mg/dL; Potassium 3.3 mmol/L (3.5-5.1); Protein, Total 5.9 g/dL (6.4-8.2); Sodium Level 142 mmol/L (136-145); Triglycerides 73 mg/dL; Very Low Density Lipoprotein 15 mg/dL (5-40)
[2022-09-14 07:08] LABS: Anisocytosis RARE
[2022-09-14 08:20] LABS: Hemoglobin A1c 5.1 % (3.8-5.6)
== END ==
LOC: OLS.WHLEAS 05:00
PROVIDERS: PCP Family Medicine; Visit Provider Internal Medicine
DX: E11.51 Type 2 diabetes mellitus with diabetic peripheral angiopathy without gangrene (principal); F02.80 Dementia in other diseases classified elsewhere, unspecified severity, without behavioral disturbance, psychotic disturbance, mood disturbance, and anxiety
CPT/HCPCS: 36415; 80053; 80061; 83036; 85025

== ENCOUNTER 2022-10-04 23:42 | Emergency (ER) | payer MEDICARE, OTHER, SELFPAY ==
[2022-10-04 23:44] VITALS: BP 180/125; PULSE 60; TEMP 35.9; O2SAT 97; BMI 25.9
--- NOTE | 2022-10-05 00:20 | RAD_ITS ---
INDICATION: FALL. L HIP PAIN EXAMINATION/TECHNIQUE: X-RAY - XR Hip Unilateral with Pelvis when performed; 2-3 Views: AP view pelvis with AP and lateral views left hip COMPARISON: Pelvis and left hip radiographs from 01/17/2020 FINDINGS: PELVIC BONES: No displaced fracture or suspicious osseous lesion demonstrated. Left lumbosacral spinal fusion hardware noted. Degenerative changes along imaged spine. Note that overlapping bowel shadows may however obscure fine detail. Sacroiliac joints are unremarkable. No widening of the pubic symphysis. HIPS: Symmetric bilateral hips with preserved joint spaces. No acute fracture or dislocation. SOFT TISSUES: Lower abdominal hernia repair mesh clips in place. Atherosclerotic calcifications with right femoral vascular stent. RAD/HIP, UNI W/ Pelvis 2-3 Views IMPRESSION: No evidence of displaced pelvic or hip fracture. Electronically Signed: Alfonzo Cortes MD at 1:18 EDT ,
--- NOTE | 2022-10-05 00:31 | RAD_ITS ---
INDICATION: Injury/Pain. Fall, right shoulder pain. EXAMINATION/TECHNIQUE: X-RAY - RIGHT XR Shoulder Min 2 Views COMPARISON: None. FINDINGS: No fracture, dislocation or significant soft tissue swelling. Humeral head rotator cuff anchor screw in place. Mild degenerative osteophytosis. Mild acromioclavicular joint space narrowing. RAD/Shoulder min 2 Views IMPRESSION: Right shoulder with no acute osseous injury. Electronically Signed: Alfonzo Cortes MD at 1:12 EDT ,
--- NOTE | 2022-10-05 00:31 | CT_ITS ---
INDICATION: Head injury. Status post fall with laceration to 4 head. EXAMINATION: CT Head or Brain W/O Contrast Injection TECHNIQUE: Multiple axial images were obtained of the head without intravenous contrast. A radiation dose optimization technique was used for this scan. IV Contrast dosage and agent: None. COMPARISON: Head CT from 06/30/2022 FINDINGS: BRAIN PARENCHYMA: No intra- or extra-axial hemorrhage. No evidence of acute major territorial infarct. No intracranial mass or mass effect. Deep cerebral white matter lucencies are present. Chronic cerebral involutional changes. CSF SPACES: Prominent cerebral sulci and extraaxial spaces secondary to involutional changes. No hydrocephalus. Basal cisterns are patent. CALVARIUM, SKULL BASE, PARANASAL SINUSES AND MASTOID AIR CELLS: Calvarium is intact. Right frontal scalp swelling. No acute findings within imaged paranasal sinuses. Mastoid air cells are well-pneumatized. ORBITS: No acute findings. CT/Brain/Head without Contrast IMPRESSION: Right frontal scalp injury. Chronic involutional and white matter changes. No evidence of acute intracranial abnormality. Electronically Signed: Alfonzo Cortes MD at 1:30 EDT ,
--- NOTE | 2022-10-05 00:31 | RAD_ITS ---
INDICATION: Injury/Pain. Fall with right foot pain. EXAMINATION/TECHNIQUE: X-RAY - RIGHT XR Foot Min 3 Views COMPARISON: None. FINDINGS: SOFT TISSUES: Generalized soft tissue swelling. No radiopaque foreign body detected. BONES/JOINTS: No acute fracture or subluxation. Adequate alignment. Preservation of the joint space(s). Small posterior and plantar calcaneal enthesophytes. RAD/Foot min 3 Views IMPRESSION: Soft tissue swelling with no acute osseous injury. Electronically Signed: Alfonzo Cortes MD at 1:13 EDT ,
[2022-10-05] MEDS: Diphth,Pertuss(Acell),Tet Vac 0.5 ML Vial IM (01:00)
[2022-10-05 03:42] VITALS: BP 196/93; PULSE 67; RESP 18; O2SAT 99
--- NOTE | 2022-10-05 03:50 | ED.VIS.FALL ---
HPI HPI - Fall History of Present Illness Chief Complaint: Fall Pain/Injury Location: Head, right shoulder, both hips, and right foot Pain Location: head, upper extremity (Bilateral hips and right foot) and lower extremity (Right shoulder) Quality of Pain: Dull Worsened by: Nothing Relieved by: Nothing Associated Symptoms Associated Symptoms: Negative for Parasthesias, Loss of function, Loss of consciousness or Amnesia Narrative Narrative: Patient presents after a fall that occurred today. Patient fell out of his wheelchair while he was trying to put his socks on. Patient denies any loss of consciousness. Patient hit the right side of his head. Patient also complains of pain in his right foot and both hips. Patient also admits to some pain in his right shoulder. Patient states his pain is worse with certain movements. Patient noted some bleeding from his frontal scalp and his right foot. Patient is unsure of his last tetanus. 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 Atrial fibrillation Atrial fibrillation with RVR (05/28/20) Cancer Carpal tunnel syndrome on both sides Chest pain Chronic pain of right heel DDD (degenerative disc disease) Debility Delayed wound healing Dementia Diabetes Essential (primary) hypertension Gait disorder GERD (gastroesophageal reflux disease) Hallucinations History of non-ST elevation myocardial infarction (NSTEMI) (07/02/19) Hyperlipidemia Hypertension Lumbar stenosis Neuropathy Non-healing ulcer of right foot with fat layer exposed Non-smoker Nonhealing ulcer of left lower extremity with fat layer exposed Obstructive sleep apnea Open wound of finger of left hand PAD (peripheral artery disease) Peripheral arterial occlusive disease Peripheral neuropathy Pneumonia due to COVID-19 virus (03/23/20) Prostate cancer Rectal prolapse Retinopathy due to secondary diabetes Right bundle branch block (RBBB) Septic shock Sleep apnea Spondylolisthesis Ulcer of right heel Ulcer of right lower extremity with fat layer exposed Urinary incontinence UTI (urinary tract infection) Home Medications tlometfo-kgp-ubcyh acid 300 mcg-lycopene 600 mcg-lutein 300 mcg tablet 1 tab PO DAILY HEALTH MAINTENANCE 02/14/18 [History Last Taken 06/30/22] vitamin E 268 mg (400 unit) capsule 400 unit PO DAILY SUPPLEMENT 10/29/18 [History Last Taken 06/30/22] duloxetine 30 mg capsule,delayed release 30 mg PO DAILY DEPRESSION 03/06/19 [History Last Taken 06/30/22] atorvastatin 20 mg tablet 20 mg PO QHS CHOLESTEROL #90 tabs 06/10/19 [Rx Last Taken 06/29/22] isosorbide mononitrate 30 mg tablet,extended release 24 hr 30 mg PO DAILY CHEST PAIN 05/28/20 [History Last Taken 06/30/22] lisinopril 5 mg tablet 5 mg PO DAILY BLOOD PRESSURE 08/26/20 [History Last Taken 06/30/22] donepezil 10 mg tablet 10 mg PO DAILY DEMENTIA 06/17/21 [History Last Taken 06/30/22] clopidogrel 75 mg tablet (Plavix) 75 mg PO 2000 BLOOD THINNER 09/21/21 [History Last Taken 06/29/22] aspirin 81 mg tablet,delayed release (Adult Aspirin Regimen) 81 mg PO DAILY HEART HEALTH 05/12/22 [History Last Taken 06/30/22 08:00] carbamazepine 100 mg capsule,extended release [id number] 200 mg PO BID PAIN 05/12/22 [History Last Taken 06/30/22] Motorized wheelchair #1 ea 06/29/22 [Rx Last Taken Unknown] acetaminophen 500 mg tablet 1,000 mg PO TID LOWER BACK PAIN 06/30/22 [History Last Taken 06/30/22 11:00] furosemide 40 mg tablet (Lasix) 40 mg PO DAILY FLUID 06/30/22 [History Last Taken 06/30/22] metoprolol succinate 100 mg tablet,extended release 24 hr 100 mg PO DAILY BLOOD PRESSURE 06/30/22 [History Last Taken 06/30/22] mirtazapine 30 mg tablet 30 mg PO QHS DEPRESSION 06/30/22 [History Last Taken 06/29/22] oxycodone-acetaminophen 5 mg-325 mg tablet 2 tab PO Q6H PRN PAIN 06/30/22 [History Last Taken 06/30/22 09:54] pantoprazole 20 mg tablet,delayed release 20 mg PO DAILY GERD 06/30/22 [History Last Taken 06/30/22 06:00] potassium chloride 10 mEq tablet,extended release(part/cryst) 20 meq PO BID SUPPLEMENT 06/30/22 [History Last Taken 06/30/22] ferrous sulfate 325 mg (65 mg iron) tablet 325 mg PO BID #60 tabs 07/06/22 [Rx Last Taken Unknown] Allergy/AdvReac Type Severity Reaction Status Date / Time latex Allergy Unknown unknown Verified 08/16/22 08:22 carisoprodol Allergy Other Verified 08/16/22 08:22 itraconazole Allergy Other Verified 08/16/22 08:22 Family History Mother CVA (cerebral vascular accident) Sister Hypertension Surgical History History of angioplasty of peripheral vessel (10/23/13) History of back surgery History of coronary artery stent placement (10/07/15) History of coronary artery stent placement History of hernia repair History of left heart catheterization (07/02/19) History of prostatectomy History of shoulder surgery History of tonsillectomy Social History housing: skilled nursing Smoking Status: Never smoker alcohol intake: never substance use type: does not use caffeine: Yes Type: tea what type of physical activity do you participate in: none seatbelt use: always do you feel safe at home: Yes ROS ROS ED Constitutional Constitutional ED: Denies chills or fever(s) Eyes Eyes: Denies blurry vision or change in vision ENT ENT ED: Denies rhinorrhea or sore throat Cardiovascular Cardiovascular: Denies chest pain or palpitations Respiratory/Chest Respiratory/Chest: Denies cough or dyspnea Gastrointestinal Gastrointestinal: Denies nausea or vomiting Genitourinary Genitourinary ED: Denies dysuria or hematuria Musculoskeletal Musculoskeletal: Reports back pain and neck pain Integumentary Denies abscess or rash Neurologic Neurologic: Denies headache(s) or weakness Allergic/Immunologic Allergic/Immunologic ED: Denies mouth swelling or urticaria EXAM Physical Exam Const Vital Signs: 10/04/22 23:44 10/04/22 23:48 10/05/22 03:42 Temperature 96.6 F L Temperature Source Temporal Pulse Rate 60 67 Respiratory Rate 18 Respiratory Effort Normal Respiratory Depth Normal Blood Pressure 180/125 H 196/93 H Blood Pressure Mean 143 127 Pulse Ox 97 99 Oxygen Delivery Method Room Air Room Air 10/05/22 05:00 Temperature 97.6 F L Temperature Source Temporal Pulse Rate 71 Respiratory Rate 16 Respiratory Effort Respiratory Depth Blood Pressure 188/95 H Blood Pressure Mean 126 Pulse Ox 95 Oxygen Delivery Method Room Air Positive well nourished and well developed General Appearance ED: well developed and NAD HEENT HEENT Narrative: There are superficial lacerations over the right frontal scalp. There is some mild ecchymosis around the lacerations. There is no active bleeding noted. There is no bony crepitance or step-off noted. Eyes PERRL and EOMs intact bilaterally Neck full ROM and supple Resp normal respiratory effort and clear to auscultation bilaterally Cardio regular rate and regular rhythm GI non-tender Palpation: soft Neuro oriented x3, CN's II-XII intact bilaterally, moves all extremities, no focal motor deficits and no sensory deficits noted Sensorium / Orientation: alert Motor Exam: strength 5/5 throughout Psych mental status grossly normal Skin Skin Narrative: There are superficial lacerations over the right fourth and fifth toes. There is no active bleeding noted. There are no foreign bodies noted. There is no tenderness noted. There is full range of motion. Capillary refill was less than 2 seconds in all digits. Sensation was intact to light touch in all digits. MDM MDM MDM Narrative Medical decision making narrative: Differential diagnosis includes closed head injury, intracranial bleeding, right foot fracture, bilateral hip fractures, pelvic fracture, and right shoulder fracture. X-rays of the right shoulder will be obtained to assess for fracture and dislocation. X-rays of the left hip and pelvis will be obtained to assess for fracture. X-rays of the right foot will be obtained to assess for fracture and dislocation. Radiography Diagnostic Testing: Clinical Impression(s) from Imaging Studies Hip/Pelvis X-Ray 10/05/22 00:20 IMPRESSION: No evidence of displaced pelvic or hip fracture. Electronically Signed: Alfonzo Cortes MD at 1:18 EDT , Brain CT 10/05/22 00:31 IMPRESSION: Right frontal scalp injury. Chronic involutional and white matter changes. No evidence of acute intracranial abnormality. Electronically Signed: Alfonzo Cortes MD at 1:30 EDT , Foot X-Ray 10/05/22 00:31 IMPRESSION: Soft tissue swelling with no acute osseous injury. Electronically Signed: Alfonzo Cortes MD at 1:13 EDT , Shoulder X-Ray 10/05/22 00:31 IMPRESSION: Right shoulder with no acute osseous injury. Electronically Signed: Alfonzo Cortes MD at 1:12 EDT , CT scan of the brain was obtained. There is no acute intracranial abnormality. There is a right frontal scalp injury. There are chronic involutional changes. This was interpreted by the radiologist and was also independently reviewed by myself. X-ray of the left hip was obtained. There are 3 views. On my independent interpretation, there is no acute fracture of the pelvis or either hip. Radiologist also interpreted the x-ray and agrees. X-ray of the right shoulder was obtained. There are 4 views. On my independent interpretation, there is no acute fracture or dislocation noted. There is no soft tissue swelling noted. Radiologist also interpreted the x-ray and agrees. X-ray of the right foot was obtained. There are 3 views. On my independent interpretation, there is no acute fracture or dislocation. There is some mild soft tissue swelling. Radiologist also interpreted the x-ray and agrees. Treatment and Re-Evaluation Narrative: Patient was given a tetanus booster. The wounds were cleaned and Steri-Strips were applied. Dressings were applied. Patient was advised of his findings. Patient was instructed to keep the wound clean and dry. Patient was instructed to follow-up with his primary care physician in 5 to 7 days. Patient understood and was agreeable with the plan. All questions were answered. Discharge Plan Triage Chief Complaint: Fall ED Provider: Mark Pacheco Dx/Rx/DC Orders Clinical Impression: Closed head injury, Fall, Contusion of right shoulder region, Laceration of toe of right foot, Contusion of hip Instructions: ED Soft Tissue Contusion, ED Head Injury (Adult) Prescriptions: No Action duloxetine 30 mg capsule,delayed release(DR/EC) 30 mg PO DAILY donepezil 10 mg tablet 10 mg PO DAILY clopidogrel [Plavix] 75 mg tablet 75 mg PO 2000 aspirin [Adult Aspirin Regimen] 81 mg tablet,delayed release (DR/EC) 81 mg PO DAILY carbamazepine 100 mg capsule, ER multiphase 12 hr 200 mg PO BID (DME) Motorized wheelchair See Rx Instructions .Route .MEDSUPPLY Qty: 1 0RF Rx Instructions: As directed [id number]-lycopen-lutein 1 EACH tablet 1 tab PO DAILY vitamin E 400 UNIT capsule 400 unit PO DAILY lisinopril 5 MG tablet 5 mg PO DAILY pantoprazole 20 mg tablet,delayed release (DR/EC) 20 mg PO DAILY oxycodone-acetaminophen 5-325 mg Tablet 2 tab PO Q6H PRN (Reason: PAIN ) mirtazapine 30 mg Tablet 30 mg PO QHS furosemide [Lasix] 40 mg tablet 40 mg PO DAILY metoprolol succinate 100 mg tablet extended release 24 hr 100 mg PO DAILY acetaminophen 500 mg Tablet 1,000 mg PO TID potassium chloride 10 mEq tablet,ER particles/crystals 20 meq PO BID ferrous sulfate 325 mg (65 mg iron) tablet 325 mg PO BID Qty: 60 1RF atorvastatin 20 mg tablet 20 mg PO QHS Qty: 90 3RF isosorbide mononitrate 30 mg tablet extended release 24 hr 30 mg PO DAILY Primary Care Provider: Dennys Manley Referrals: Dennys Manley MD [Primary Care Provider] - 5-7 Days Disposition Disposition: Home, Self Care Discharge Date/Time: 10/05/22 07:09
--- NOTE | 2022-10-05 04:12 | NURSING ---
Addendum entered by Maday Otto 10/05/22 06:22: CALLED PHYSICIANS FOR AN UPDATED ETA GIVEN 35 MORE MINUTES PER RADHA. Original Note: [facility] ETA 2HRS (0600)
[2022-10-05 05:00] VITALS: BP 188/95; PULSE 71; RESP 16; TEMP 36.4; O2SAT 95
--- NOTE | 2022-10-05 17:18 | ED.RN ---
called ROJELIO hunt ext [phone] for admission. LVM. Pt admitted to [facility]
== END 2022-10-05 07:09 | disposition home or self-care (01) ==
PROVIDERS: Emergency Provider Emergency Medicine; PCP Internal Medicine; Visit Provider Emergency Medicine
DX: S91.124A Laceration with foreign body of right lesser toe(s) without damage to nail, initial encounter (principal); F03.90 Unspecified dementia, unspecified severity, without behavioral disturbance, psychotic disturbance, mood disturbance, and anxiety; S09.90XA Unspecified injury of head, initial encounter; I10 Essential (primary) hypertension; I25.10 Atherosclerotic heart disease of native coronary artery without angina pectoris; S40.011A Contusion of right shoulder, initial encounter; E78.5 Hyperlipidemia, unspecified; V00.811A Fall from moving wheelchair (powered), initial encounter; Y93.89 Activity, other specified; Z79.02 Long term (current) use of antithrombotics/antiplatelets; Z79.82 Long term (current) use of aspirin; Z79.899 Other long term (current) drug therapy; Z85.46 Personal history of malignant neoplasm of prostate; K21.9 Gastro-esophageal reflux disease without esophagitis; Z95.5 Presence of coronary angioplasty implant and graft; Z90.79 Acquired absence of other genital organ(s); Z23 Encounter for immunization; S70.00XA Contusion of unspecified hip, initial encounter
CPT/HCPCS: 70450; 73030; 73502; 73630; 90471; 90715; 99284

== ENCOUNTER 2022-10-20 13:43 | Emergency (ER) | payer MEDICARE, OTHER, SELFPAY ==
[2022-10-20 13:44] VITALS: TEMP 36.1; BMI 24.8
[2022-10-20 13:48] VITALS: BP 169/59; PULSE 52; RESP 12; O2SAT 95
--- NOTE | 2022-10-20 14:08 | EKG12_ITS ---
Test Reason : CONFUSION Blood Pressure : / mmHG Vent. Rate : 054 BPM Atrial Rate : 054 BPM P-R Int : 172 ms QRS Dur : 144 ms QT Int : 512 ms P-R-T Axes : 076 068 -11 degrees QTc Int : 485 ms Sinus bradycardia Right bundle branch block Abnormal ECG Confirmed by AUNDREA MONTES, MANUEL ([id number]), scientific editor REHAN GASPAR ([id number]) on 10/24/2022 1:03:54 PM Referred By: BB/ARA Confirmed By:JAIR GUILLAUME MD
--- NOTE | 2022-10-20 14:08 | CT_ITS ---
STUDY: CT BRAIN WITHOUT CONTRAST REASON FOR EXAM: Male, 87 years old. Head trauma. RADIATION DOSAGE (If Supplied By Facility): CTDIvol = ( 44.99 ) mGy, DLP = ( 863.60 ) mGycm TECHNIQUE: Transaxial CT imaging of the brain was performed without administration of intravenous contrast material. Individualized dose optimization techniques were used for this CT. COMPARISON: Comparison is made with prior study dated October 05, 2022. FINDINGS: Normal soft tissue structures. Normal calvarium. There is mild cerebral atrophy with widening of the extra-axial spaces and ventricular dilatation. There are areas of decreased attenuation within the white matter tracts of the supratentorial brain, consistent with microvascular disease changes. Normal basal ganglia and thalami. Normal brainstem. Normal cerebellum. There is no intracranial hemorrhage. There are no findings of an acute ischemic infarction. Atherosclerotic plaque formation of the cavernous portions of the internal carotid arteries bilaterally. Normal visualized paranasal sinuses. CT/Brain/Head without Contrast IMPRESSION: Chronic involutional changes of the brain. Electronically Signed: Rito Lugo MD at 15:36 EDT ,
--- NOTE | 2022-10-20 14:29 | EDS_ITS ---
HPI History of Present Illness Chief Complaint: Confusion Informant: patient Narrative Narrative: Patient presents after a period of finding at the nursing facility. He states he remembers them talking to him he was being silly by not answering. He states he does not recall all the details related to this. Evidently after that he was eating and drinking his been awake and alert. Patient denies any complaints. But I do note that even while we talk sometimes he falls asleep. He is woken up with a gentle touch but he does fall asleep. Once I wake him up he is ANO x3. He has no complaint. I have no report of a focal neurologic deficit. It was more that he just was not answering questions or responding. I have no indication that he lost pulse blood pressure or became hypoxic. His med list was reviewed. I also looked that he had a recent fall and injury with a CAT scan done. Note that he is on Plavix and aspirin. [facility] Medical History Acute diarrheal illness Acute kidney injury Atherosclerotic heart disease of [place] coronary artery without angina pectoris Atrial fibrillation Atrial fibrillation with RVR (05/28/20) Cancer Carpal tunnel syndrome on both sides Chest pain Chronic pain of right heel DDD (degenerative disc disease) Debility Delayed wound healing Dementia Diabetes Essential (primary) hypertension Gait disorder GERD (gastroesophageal reflux disease) Hallucinations History of non-ST elevation myocardial infarction (NSTEMI) (07/02/19) Hyperlipidemia Hypertension Lumbar stenosis Neuropathy Non-healing ulcer of right foot with fat layer exposed Non-smoker Nonhealing ulcer of left lower extremity with fat layer exposed Obstructive sleep apnea Open wound of finger of left hand PAD (peripheral artery disease) Peripheral arterial occlusive disease Peripheral neuropathy Pneumonia due to COVID-19 virus (03/23/20) Prostate cancer Rectal prolapse Retinopathy due to secondary diabetes Right bundle branch block (RBBB) Septic shock Sleep apnea Spondylolisthesis Ulcer of right heel Ulcer of right lower extremity with fat layer exposed Urinary incontinence UTI (urinary tract infection) Home Medications [id number] 300 mcg-K 60 mcg-lycop 600 mcg-lutein 300 mcg tablet 1 tab PO DAILY HEALTH MAINTENANCE 02/14/18 [History Last Taken 06/30/22] vitamin E 268 mg (400 unit) capsule 400 unit PO DAILY SUPPLEMENT 10/29/18 [History Last Taken 06/30/22] duloxetine 30 mg capsule,delayed release 30 mg PO DAILY DEPRESSION 03/06/19 [History Last Taken 06/30/22] atorvastatin 20 mg tablet 20 mg PO QHS CHOLESTEROL #90 tabs 06/10/19 [Rx Last Taken 06/29/22] isosorbide mononitrate 30 mg tablet,extended release 24 hr 30 mg PO DAILY CHEST PAIN 05/28/20 [History Last Taken 06/30/22] lisinopril 5 mg tablet 5 mg PO DAILY BLOOD PRESSURE 08/26/20 [History Last Taken 06/30/22] donepezil 10 mg tablet 10 mg PO DAILY DEMENTIA 06/17/21 [History Last Taken 06/30/22] clopidogrel 75 mg tablet (Plavix) 75 mg PO 2000 BLOOD THINNER 09/21/21 [History Last Taken 06/29/22] aspirin 81 mg tablet,delayed release (Adult Aspirin Regimen) 81 mg PO DAILY HEART HEALTH 05/12/22 [History Last Taken 06/30/22 08:00] carbamazepine 100 mg capsule,extended release [email or web address] 200 mg PO BID PAIN 05/12/22 [History Last Taken 06/30/22] Motorized wheelchair #1 ea 06/29/22 [Rx Last Taken Unknown] acetaminophen 500 mg tablet 1,000 mg PO TID LOWER BACK PAIN 06/30/22 [History Last Taken 06/30/22 11:00] furosemide 40 mg tablet (Lasix) 40 mg PO DAILY FLUID 06/30/22 [History Last Taken 06/30/22] metoprolol succinate 100 mg tablet,extended release 24 hr 100 mg PO DAILY BLOOD PRESSURE 06/30/22 [History Last Taken 06/30/22] mirtazapine 30 mg tablet 30 mg PO QHS DEPRESSION 06/30/22 [History Last Taken 06/29/22] oxycodone-acetaminophen 5 mg-325 mg tablet 2 tab PO Q6H PRN PAIN 06/30/22 [History Last Taken 06/30/22 09:54] pantoprazole 20 mg tablet,delayed release 20 mg PO DAILY GERD 06/30/22 [History Last Taken 06/30/22 06:00] potassium chloride 10 mEq tablet,extended release(part/cryst) 20 meq PO BID SUPPLEMENT 06/30/22 [History Last Taken 06/30/22] ferrous sulfate 325 mg (65 mg iron) tablet 325 mg PO BID #60 tabs 07/06/22 [Rx Last Taken Unknown] levofloxacin 750 mg tablet 750 mg PO DAILY #5 tabs 10/20/22 [Rx Last Taken Unknown] Allergy/AdvReac Type Severity Reaction Status Date / Time latex Allergy Unknown unknown Verified 10/20/22 13:44 carisoprodol Allergy Other Verified 10/20/22 13:44 itraconazole Allergy Other Verified 10/20/22 13:44 Family History Mother CVA (cerebral vascular accident) Sister Hypertension Surgical History History of angioplasty of peripheral vessel (10/23/13) History of back surgery History of coronary artery stent placement (10/07/15) History of coronary artery stent placement History of hernia repair History of left heart catheterization (07/02/19) History of prostatectomy History of shoulder surgery History of tonsillectomy Social History housing: [facility] Smoking Status: Never smoker alcohol intake: never substance use type: does not use caffeine: Yes Type: tea what type of physical activity do you participate in: none seatbelt use: always do you feel safe at home: Yes ROS ROS ED ROS Narrative A complete review of systems was performed and is negative except as documented in the history of present illness. Some specific details below. Constitutional: No recent fevers or chills. EYE: No discharge, visual complaints, or pain. ENT: No difficulty swallowing. No swelling. No pain. No reflux symptoms. CV: He denies any chest pain or palpitations. I do see that he does have a history of heart disease and A-fib. Respiratory: No coughing or trouble breathing. I have no report of any hypoxic episode. GI: No abdominal pain. No nausea vomiting diarrhea. No blood in stool. : No frequency dysuria or hematuria. Musculoskeletal: No recent trauma. No pains. No swelling. Skin: No rash. Nondiaphoretic. Neuro: No focal weakness or numbness. Please see history of present illness regarding earlier event. Endocrine: No polyuria or polydipsia. EXAM Physical Exam Narrative Exam Narrative: CONSTITUTIONAL: Patient is nontoxic in appearance. The patient looks comfortable. Work of breathing looks normal. HEENT: No notable trauma. Mucous membranes moist. EYES: No conjunctival injection. No proptosis. Pupils are small but reactive. No disconjugate gaze NECK:No JVD. No stridor. CARDIOVASCULAR: Mildly bradycardic rate. Regular rhythm. However, his blood pressure is normal. No notable murmur. No JVD. RESPIRATORY: No respiratory distress. Breathing is unlabored. No wheezes. No rhonchi. No rales. No pain with a deep breath. No chest wall tenderness. GASTROINTESTINAL: Not distended. Bowel sounds are normal. No tenderness. No guarding. No rebound. No palpable mass. No bruit is heard. GENITOURINARY: No tenderness over the bladder. No CVA tenderness. MUSCULOSKELETAL: Atraumatic. No notable edema or tenderness. NEUROLOGICAL: Patient is alert and appropriate. No focal deficit noted. He knows he is at [facility], he is at correction facility, he knows the year. He could not get the name of the president but he stated he knew who it was. When I offered him 5 names he immediately picked out President Rommel. I do not get any focal weakness. I get no focal numbness. I get no visual field cut. I do note that in between questions or sometimes when trying to answer question he will fall asleep. But he is easily awoken and then immediately alert again. SKIN: No noted rashes. No diaphoresis. PSYCHIATRIC: Patient is calm. Mood is appropriate. Const Vital Signs: 10/20/22 13:44 10/20/22 13:48 Temperature 96.9 F L Temperature Source Temporal Pulse Rate 52 L Respiratory Rate 12 Blood Pressure 169/59 H Blood Pressure Mean 95 Pulse Ox 95 Oxygen Delivery Method Room Air MDM MDM MDM Narrative Medical decision making narrative: Patient CBC showed minimally low hemoglobin but normal white count platelets. This was not the source of his symptoms. Electrolytes showed minimally low potassium at 3.4 that should self correct. Glucose was just slightly up at 117. Tegretol level was pending and not able to be done today here. Urine was cloudy with positive nitrites, 500 leukocyte esterase, 10-20 white cells, and 2+ bacteria. I will treat this as a UTI. I looked at his last culture and it was resistant to amoxicillin and cephalosporins. My independent interpretation of his chest x-ray shows a few increased markings at the right base. Final reading is showing mild vascular congestion and atelectasis versus infiltrate at the lung bases worse on the right. My independent interpretation of the CT of the head shows no acute bleed. Final reading shows no acute process but he does have chronic changes. I will send off urine culture. With the patient having some decreased alertness transiently and this urine finding I will treat this is UTI pending results of culture. I will use Levaquin as if there is any component of pulmonary i nfection this should still be appropriate coverage. I rechecked the patient and he is not short of breath or coughing. I will also have them hold his metoprolol with his slightly low heart rate. But I do not think this is the source of his symptoms as he is asymptomatic now and his blood pressure has been normal. Lab Data Attestation: I reviewed the patient's lab results. Labs: Laboratory Results - last 24 hr 10/20/22 10/20/22 14:20 14:50 WBC 4.9 RBC 3.91 L Hgb 12.7 L Hct 40.5 MCV 103.6 H MCH 32.5 H MCHC 31.4 L RDW Std Deviation 59.6 H RDW Coeff of Ayesha 16.2 H Plt Count 271 MPV 9.5 Immature Gran % (Auto) 0.600 Neut % (Auto) 63.5 Lymph % (Auto) 14.6 L [place] % (Auto) 15.6 H Eos % (Auto) 5.3 H Baso % (Auto) 0.4 Absolute Neuts (auto) 3.1 Absolute Lymphs (auto) 0.71 L Nucleated RBC % 0 Sodium 142 Potassium 3.4 L Chloride 107 Carbon Dioxide 32.0 Anion Gap 3 L BUN 17 Creatinine 1.11 Estim Creat Clear Calc 41.51 Est GFR (MDRD) Af Amer 80 Est GFR (MDRD) Non-Af 66 BUN/Creatinine Ratio 15.3 Glucose 117 H Calcium 8.8 Urine Color Yellow Urine Clarity Sl. Cloudy Urine pH 6.0 Ur Specific [place] 1.015 Urine Protein 15 H Urine Glucose (UA) Normal Urine Ketones Negative Urine Occult Blood Negative Urine Nitrite Positive H Urine Bilirubin Negative Urine Urobilinogen Normal Ur Leukocyte Esterase 500 H Urine RBC 0-5 SEEN Urine WBC 10-25 SEEN Ur Squamous Epith Cells 0 SEEN Urine Bacteria 2+ Urine Mucus 0 SEEN Carbamazepine Cancelled Radiography Diagnostic Testing: Clinical Impression(s) from Imaging Studies Brain CT 10/20/22 14:08 IMPRESSION: Chronic involutional changes of the brain. Electronically Signed: Rito Lugo MD at 15:36 EDT , Chest X-Ray 10/20/22 15:12 IMPRESSION: Findings suggest a mild degree of vascular congestion with blunting of both costophrenic angles and atelectasis and/or infiltrates at the lung bases worse on the right side. Electronically Signed: Rito Lugo MD at 15:29 EDT , EKG Initial EKG: Comments: My depend interpretation the patient's EKG shows sinus rhythm but slightly bradycardic rate of 54. There is right bundle branch block. No significant ST or T wave change. No indication of infarct. No ventricular e ctopy. IL interval is normal. QRS duration is slightly long. QTc is toward the longer end at 485 ms. Discharge Plan Triage Chief Complaint: Confusion ED Provider: Aaron Adams Dx/Rx/DC Orders Clinical Impression: Urinary tract infection, Unresponsive episode, Bradycardia, sinus Instructions: Urinary Tract Infections in Men, ED ALOC Prescriptions: New levofloxacin 750 mg tablet 750 mg PO DAILY Qty: 5 0RF No Action duloxetine 30 mg capsule,delayed release(DR/EC) 30 mg PO DAILY donepezil 10 mg tablet 10 mg PO DAILY clopidogrel [Plavix] 75 mg tablet 75 mg PO 2000 aspirin [Adult Aspirin Regimen] 81 mg tablet,delayed release (DR/EC) 81 mg PO DAILY carbamazepine 100 mg capsule, ER multiphase 12 hr 200 mg PO BID (DME) Motorized wheelchair See Rx Instructions .Route .MEDSUPPLY Qty: 1 0RF Rx Instructions: As directed [id number] 1 EACH tablet 1 tab PO DAILY vitamin E 400 UNIT capsule 400 unit PO DAILY lisinopril 5 MG tablet 5 mg PO DAILY pantoprazole 20 mg tablet,delayed release (DR/EC) 20 mg PO DAILY oxycodone-acetaminophen 5-325 mg Tablet 2 tab PO Q6H PRN (Reason: PAIN ) mirtazapine 30 mg Tablet 30 mg PO QHS furosemide [Lasix] 40 mg tablet 40 mg PO DAILY metoprolol succinate 100 mg tablet extended release 24 hr 100 mg PO DAILY acetaminophen 500 mg Tablet 1,000 mg PO TID potassium chloride 10 mEq tablet,ER particles/crystals 20 meq PO BID ferrous sulfate 325 mg (65 mg iron) tablet 325 mg PO BID Qty: 60 1RF atorvastatin 20 mg tablet 20 mg PO QHS Qty: 90 3RF isosorbide mononitrate 30 mg tablet extended release 24 hr 30 mg PO DAILY Primary Care Provider: Dennys Manley Referrals: Dennys Manley MD [Primary Care Provider] - 3-5 Days Activity Restrictions/Additional Instructions: Hold metoprolol or decrease dose if heart rate is is below 60. Disposition Disposition: Detention Facility
[2022-10-20 14:43] LABS: Absolute Lymphocyte Count 0.71 X10^3/uL (0.83-4.51); Absolute Neutrophil Count 3.1 X10^3/uL (2.0-7.7); Basophil# 0.02 X10^3/uL; Basophil% 0.4 % (0-1); Eosinophil# 0.26 X10^3/uL; Eosinophils% 5.3 % (0-5); Hematocrit 40.5 % (40-54); Hemoglobin 12.7 g/dL (13.0-16.5); Lymphocyte # 0.71 X10^3/ul (0.83-4.51); Lymphocyte % 14.6 % (19-41); Mean Corp Hgb Conc 31.4 g/dL (32-36); Mean Corpuscular Hgb 32.5 pg (27.0-32.0); Mean Corpuscular Volume 103.6 fL (80-94); Mean Platelet Vol. 9.5 fl (6.2-12.0); Monocyte# 0.76 X10^3/uL; Monocyte% 15.6 % (0-10); NRBC Flagged by Analyzer 0 % (0-5); Neutrophil # 3.08 X10^3/uL (2.7-7.7); Neutrophil % 63.5 % (47-70); Platelet Count 271 K/mm3 (150-450); RBC Distribution Width CV 16.2 % (11.6-14.6); RBC Distribution Width SD 59.6 fl (35.1-43.9); Red Blood Count 3.91 M/mm3 (4.6-6.2); White Blood Count 4.9 K/mm3 (4.4-11.0)
[2022-10-20 14:55] LABS: Anion Gap 3 (5-15); BUN 17 mg/dL (7-18); BUN/Creat Ratio 15.3 RATIO (10-20); Calcium,Total 8.8 mg/dL (8.5-10.1); Chloride 107 mmol/L (98-107); Creatinine, Serum 1.11 mg/dL (0.70-1.30); EST Glomerular Filtration Rate 66 mL/min (>60); Est Glom Filt Rate - Afr Amer 80 mL/min (>60); Estimated Creatinine Clearance 41.51 ml/min; Glucose 117 mg/dL (74-106); Potassium 3.4 mmol/L (3.5-5.1); Sodium Level 142 mmol/L (136-145)
[2022-10-20 15:00] LABS: Mucous, Urine 0 SEEN /hpf (<or=2+); Squamous Epithelial Cells - UA 0 SEEN /hpf (0-5)
[2022-10-20 15:03] LABS: Color, Urine Yellow (Yellow); Glucose, Dipstick Normal (Normal); Ketone-Dipstick Negative (Negative); Leukocyte Esterase-Dipstick 500 /ul (Negative); Nitrite-Dipstick Positive (Negative); Occult Blood-Urine Negative /ul (Negative); Protein-Dipstick 15 mg/dl (Negative); Specific Gravity, Urine 1.015 (1.002-1.030); Urine Bilirubin Dipstick Negative (Negative); Urine Clarity Sl. Cloudy (Clear); Urine Urobilinogen Normal (Normal)
--- NOTE | 2022-10-20 15:12 | RAD_ITS ---
STUDY: X-RAY CHEST REASON FOR EXAM: Male, 87 years old. Confusion. TECHNIQUE: Single AP portable view of the chest. COMPARISON: Comparison is made with prior study of July 05, 2022. FINDINGS: EKG electrodes are seen. Mild degree of vascular congestion. Increased markings are seen at the lung bases worse on the right side suggestive of atelectasis and/or early infiltrates. Blunting of both concerning angles. There is borderline cardiomegaly. Normal mediastinum and terry. Normal visualized pulmonary arteries. There is atherosclerotic calcification of the aortic arch with tortuosity. There are diffuse degenerative changes of the visualized thoracic spine. There is degenerative osteoarthritis of the bilateral shoulders. There is no demonstrated abnormality of the visualized soft tissue structures of the upper abdomen. RAD/Chest 1 View (Portable) IMPRESSION: Findings suggest a mild degree of vascular congestion with blunting of both costophrenic angles and atelectasis and/or infiltrates at the lung bases worse on the right side. Electronically Signed: Rito Lugo MD at 15:29 EDT ,
[2022-10-20 15:17] LABS: Bacteria 2+ /hpf (None Seen); Red Blood Cells-Urine 0-5 SEEN /hpf (0-5); White Blood Cells 10-25 SEEN /hpf (0-5)
[2022-10-20 16:32] VITALS: BP 175/106; PULSE 57; RESP 20; O2SAT 96
[2022-10-20] MEDS: levoFLOXacin 750 MG Tablet PO (16:32)
--- NOTE | 2022-10-20 16:44 | ED.RN ---
spoke with Anai at [facility] to inform of pt's d/c- waiting for transport. Called son Wesley for pt update.
== END 2022-10-20 18:47 | disposition skilled nursing facility (03) ==
PROVIDERS: Emergency Provider Emergency Medicine; PCP Internal Medicine; Visit Provider Emergency Medicine
DX: N39.0 Urinary tract infection, site not specified (principal); F03.90 Unspecified dementia, unspecified severity, without behavioral disturbance, psychotic disturbance, mood disturbance, and anxiety; E11.319 Type 2 diabetes mellitus with unspecified diabetic retinopathy without macular edema; I25.10 Atherosclerotic heart disease of native coronary artery without angina pectoris; I10 Essential (primary) hypertension; E78.5 Hyperlipidemia, unspecified; Z79.899 Other long term (current) drug therapy; Z79.02 Long term (current) use of antithrombotics/antiplatelets; Z79.82 Long term (current) use of aspirin; K21.9 Gastro-esophageal reflux disease without esophagitis; Z95.5 Presence of coronary angioplasty implant and graft; Z90.79 Acquired absence of other genital organ(s); R00.1 Bradycardia, unspecified; R41.89 Other symptoms and signs involving cognitive functions and awareness
CPT/HCPCS: 70450; 71045; 80048; 81001; 85025; 87086; 87088; 87186; 93005; 99285; A4216

== ENCOUNTER 2022-11-18 13:20 | Emergency (ER) | payer MEDICARE, OTHER, SELFPAY ==
[2022-11-18] VITALS (9 sets, daily range): BP systolic 152–211; BP diastolic 88–152; PULSE 70–94; RESP 10–21; TEMP 36.4; O2SAT 94–96; BMI 22.3
--- NOTE | 2022-11-18 13:46 | CT_ITS ---
STUDY: CTA HEAD AND NECK WITH CONTRAST REASON FOR EXAM: Male, 87 years old. TIA RADIATION DOSAGE (If Supplied By Facility): CTDIvol = ( 33.54 ) mGy, DLP = ( 1564.74 ) mGycm TECHNIQUE: CT angiography was performed with a multi-detector CT scanner. Data acquisition was obtained from the skull base through the vertex following intravenous administration of IV 100mL [id number]-[id number]. MIP images were reconstructed from the axial data set. Post-processing of the angiographic images was performed, with multiplanar reformation and 3D reconstruction. Individualized dose optimization techniques were used for this CT. COMPARISON: No relevant priors. FINDINGS: Normal bilateral petrous carotid arteries. Normal right cavernous carotid artery with a normal supraclinoid bifurcation. Normal left cavernous carotid artery with a normal supraclinoid bifurcation. Normal right A1 segments of the anterior cerebral artery. Normal left A1 segments of the anterior cerebral artery. Normal intact anterior communicating artery (ACOM). Normal bilateral A2 segments of the anterior cerebral arteries. Normal right M1 and M2 segments of the middle cerebral arteries, with a normal M1 bifurcation. Normal left M1 and M2 segments of the middle cerebral arteries, with a normal M1 bifurcation. Normal right posterior communicating artery (PCOM). Normal left posterior communicating artery (PCOM). Normal bilateral vertebral arteries. Normal basilar artery with a normal basilar bifurcation. The visualized bilateral superior cerebellar (SCA) arteries are normal. Normal bilateral P1, P2 and visualized P3 segments of the posterior cerebral arteries. There is no demonstrated aneurysm of the [place]. Cerebral atrophy. There are areas of decreased attenuation within the white matter tracks of the supratentorial brain consistent with microvascular disease changes. There has been no change as compared to prior study dated October 20, 2022. Diffuse heterogeneous enlargement of the thyroid gland worse on the right side with calcific nodules. There is a substernal extension of the right lobe of the thyroid. AORTIC ARCH: There is atherosclerotic calcific plaque formation of the aortic arch and great vessels arising from the aortic arch, without a hemodynamically significant stenosis. There is a normal origin of the brachiocephalic, left common carotid, and left subclavian arteries. RIGHT CAROTID ARTERIES: Normal right common carotid artery (CCA). Normal right common carotid bulb. Normal origin of the right internal carotid (ICA) artery without a hemodynamically significant stenosis. Normal visualized cervical portion of the right internal carotid artery. Normal origin of the right external carotid artery (ECA). LEFT CAROTID ARTERIES: Normal left common carotid artery (CCA). Normal left common carotid bulb. There is mild atherosclerotic plaque formation of the origin of the left internal carotid artery with less than 50% cross sectional diameter stenosis. Normal visualized cervical portion of the left internal carotid artery. Normal origin of the left external carotid artery (ECA). VERTEBRAL ARTERIES: Normal bilateral vertebral arteries. CT/CTA Head AND Neck W/ Contrast IMPRESSION: Minimal degree of calcific plaque at the origin of the left internal carotid artery. Electronically Signed: Rito Lugo MD at 15:18 EDT ,
--- NOTE | 2022-11-18 13:46 | RAD_ITS ---
STUDY: X-RAY CHEST REASON FOR EXAM: Male, 87 years old. Shortness of breath. TECHNIQUE: Single AP portable view of the chest. COMPARISON: Comparison is made with prior study dated October 20, 2022. FINDINGS: EKG electrodes are seen. Stable mild increased markings at the lung bases slightly more prominent on the right side suggestive of either scarring and/or atelectasis. There is no demonstrated pleural abnormality. Normal size heart. Normal mediastinum and terry. Normal visualized pulmonary arteries. There is atherosclerotic calcification of the aortic arch with tortuosity. There are diffuse degenerative changes of the visualized thoracic spine. There is degenerative osteoarthritis of the bilateral shoulders. There is no demonstrated abnormality of the visualized soft tissue structures of the upper abdomen. RAD/Chest 1 View (Portable) IMPRESSION: Mild increased markings at the lung bases slightly more prominent on the right side. There has been no change. Electronically Signed: Rito Lugo MD at 15:16 EDT ,
--- NOTE | 2022-11-18 13:46 | EKG12_ITS ---
Test Reason : NEURO Blood Pressure : / mmHG Vent. Rate : 075 BPM Atrial Rate : 250 BPM P-R Int : 000 ms QRS Dur : 144 ms QT Int : 478 ms P-R-T Axes : 000 069 012 degrees QTc Int : 533 ms Atrial flutter with variable A-V block Right bundle branch block Abnormal ECG Confirmed by CARMEN MONTES, CHARLY ([id number]), graphic editor REHAN GASPAR ([id number]) on 11/21/2022 1:12:34 PM Referred By: Confirmed By:CHARLY MORALES MD
--- NOTE | 2022-11-18 13:48 | EX.ED.DYSGE1 ---
HPI History of Present Illness Chief Complaint: Neuro S/Sx Informant: patient and EMS Narrative Narrative: Patient brought in by EMS with concerns for slurred speech and uneven small offset printer. No new [facility]. Apparently staff there felt the patient had slurred speech this morning and his small offset printer was uneven. When EMS arrived they did not notice any deficits. Patient has no complaints. [facility] Medical History Acute diarrheal illness Acute kidney injury Atherosclerotic heart disease of [place] coronary artery without angina pectoris Atrial fibrillation Atrial fibrillation with RVR (05/28/20) Cancer Carpal tunnel syndrome on both sides Chest pain Chronic pain of right heel DDD (degenerative disc disease) Debility Delayed wound healing Dementia Diabetes Essential (primary) hypertension Gait disorder GERD (gastroesophageal reflux disease) Hallucinations History of non-ST elevation myocardial infarction (NSTEMI) (07/02/19) Hyperlipidemia Hypertension Large bowel bleed Lumbar stenosis Neuropathy Non-healing ulcer of right foot with fat layer exposed Non-smoker Nonhealing ulcer of left lower extremity with fat layer exposed Obstructive sleep apnea Open wound of finger of left hand PAD (peripheral artery disease) Peripheral arterial occlusive disease Peripheral neuropathy Pneumonia due to COVID-19 virus (03/23/20) Prostate cancer Rectal prolapse Retinopathy due to secondary diabetes Right bundle branch block (RBBB) Septic shock Sleep apnea Spondylolisthesis Ulcer of right heel Ulcer of right lower extremity with fat layer exposed Urinary incontinence UTI (urinary tract infection) Home Medications [id number] 300 mcg-K 60 mcg-lycop 600 mcg-lutein 300 mcg tablet 1 tab PO DAILY HEALTH MAINTENANCE 02/14/18 [History Last Taken 06/30/22] vitamin E 268 mg (400 unit) capsule 400 unit PO DAILY SUPPLEMENT 10/29/18 [History Last Taken 06/30/22] duloxetine 30 mg capsule,delayed release 30 mg PO DAILY DEPRESSION 03/06/19 [History Last Taken 06/30/22] atorvastatin 20 mg tablet 20 mg PO QHS CHOLESTEROL #90 tabs 06/10/19 [Rx Last Taken 06/29/22] isosorbide mononitrate 30 mg tablet,extended release 24 hr 30 mg PO DAILY CHEST PAIN 05/28/20 [History Last Taken 06/30/22] lisinopril 5 mg tablet 5 mg PO DAILY BLOOD PRESSURE 08/26/20 [History Last Taken 06/30/22] donepezil 10 mg tablet 10 mg PO DAILY DEMENTIA 06/17/21 [History Last Taken 06/30/22] clopidogrel 75 mg tablet (Plavix) 75 mg PO 2000 BLOOD THINNER 09/21/21 [History Last Taken 06/29/22] aspirin 81 mg tablet,delayed release (Adult Aspirin Regimen) 81 mg PO DAILY HEART HEALTH 05/12/22 [History Last Taken 06/30/22 08:00] carbamazepine 100 mg capsule,extended release [id number] 200 mg PO BID PAIN 05/12/22 [History Last Taken 06/30/22] Motorized wheelchair #1 ea 06/29/22 [Rx Last Taken Unknown] acetaminophen 500 mg tablet 1,000 mg PO TID LOWER BACK PAIN 06/30/22 [History Last Taken 06/30/22 11:00] furosemide 40 mg tablet (Lasix) 40 mg PO DAILY FLUID 06/30/22 [History Last Taken 06/30/22] metoprolol succinate 100 mg tablet,extended release 24 hr 100 mg PO DAILY BLOOD PRESSURE 06/30/22 [History Last Taken 06/30/22] mirtazapine 30 mg tablet 30 mg PO QHS DEPRESSION 06/30/22 [History Last Taken 06/29/22] oxycodone-acetaminophen 5 mg-325 mg tablet 2 tab PO Q6H PRN PAIN 06/30/22 [History Last Taken 06/30/22 09:54] pantoprazole 20 mg tablet,delayed release 20 mg PO DAILY GERD 06/30/22 [History Last Taken 06/30/22 06:00] potassium chloride 10 mEq tablet,extended release(part/cryst) 20 meq PO BID SUPPLEMENT 06/30/22 [History Last Taken 06/30/22] ferrous sulfate 325 mg (65 mg iron) tablet 325 mg PO BID #60 tabs 07/06/22 [Rx Last Taken Unknown] levofloxacin 750 mg tablet 750 mg PO DAILY #5 tabs 10/20/22 [Rx Last Taken Unknown] Allergy/AdvReac Type Severity Reaction Status Date / Time latex Allergy Unknown unknown Verified 11/10/22 15:06 carisoprodol Allergy Other Verified 11/10/22 15:06 itraconazole Allergy Other Verified 11/10/22 15:06 Family History Mother CVA (cerebral vascular accident) Sister Hypertension Surgical History History of angioplasty of peripheral vessel (10/23/13) History of back surgery History of coronary artery stent placement (10/07/15) History of coronary artery stent placement History of hernia repair History of left heart catheterization (07/02/19) History of prostatectomy History of shoulder surgery History of tonsillectomy Social History housing: [facility] Smoking Status: Never smoker alcohol intake: never substance use type: does not use caffeine: Yes Type: tea what type of physical activity do you participate in: none seatbelt use: always do you feel safe at home: Yes ROS ROS ED Constitutional Constitutional ED: Denies chills or fever(s) Eyes Eyes: Denies change in vision ENT ENT ED: Denies rhinorrhea or sore throat Cardiovascular Cardiovascular: Denies chest pain or palpitations Respiratory/Chest Respiratory/Chest: Denies cough or dyspnea Gastrointestinal Gastrointestinal: Denies abdominal pain, nausea or vomiting Genitourinary Genitourinary ED: Denies dysuria Musculoskeletal Musculoskeletal: Denies back pain or extremity pain Integumentary Denies Abrasions or rash Neurologic Neurologic: Denies headache(s) Psychiatric Psychiatric: Denies anxiety or depression Allergic/Immunologic Allergic/Immunologic ED: Denies lip swelling or urticaria EXAM Physical Exam Const Vital Signs: 11/18/22 13:21 11/18/22 13:33 11/18/22 16:01 Temperature 97.5 F L Temperature Source Oral Pulse Rate 70 77 84 Respiratory Rate 18 17 21 H Blood Pressure 174/97 H 180/102 H 209/100 H Blood Pressure Mean 122 128 136 Pulse Ox 95 95 94 Oxygen Delivery Method Room Air Room Air Room Air 11/18/22 16:08 Temperature Temperature Source Pulse Rate 86 Respiratory Rate 20 H Blood Pressure 152/88 H Blood Pressure Mean 109 Pulse Ox 95 Oxygen Delivery Method Positive cachectic General Appearance ED: cachectic Nutritional Appearance: cachectic HEENT Reports dry mucous membranes Mouth ED: Yes dry mucous membranes Mouth: dry mucous membranes Eyes EOMs intact bilaterally Neck no lymphadenopathy Chest Wall inspection of chest normal and palpation of chest normal Resp normal respiratory effort and clear to auscultation bilaterally Cardio Rhythm: abnormal rhythm irregularly irregular GI normal to inspection, nondistended, normoactive bowel sounds Extremity normal to inspection Neuro Neuro Narrative: Patient is alert and appropriate. He is able to hold both arms and legs off the bed to a count of 5. I do not appreciate any slurred speech at this time. No facial droop was noted. Psych mental status grossly normal Skin no rashes or lesions noted MDM MDM MDM Narrative Medical decision making narrative: Patient placed on bus driver/monitor. Labwork obtained to evaluate for leukocytosis, anemia, and electrolyte derangement. EKG obtained to evaluate for cardiac arrhythmia/ischemia. Chest x-ray obtained to evaluate for acute lung pathology, cardiac size, or mediastinal abnormality. CTA of the head and neck to evaluate for possible stroke. Lab Data Attestation: I reviewed the patient's lab results. Labs: Laboratory Results - last 24 hr 11/18/22 11/18/22 11/18/22 13:09 14:06 15:20 WBC 5.4 RBC 4.05 L Hgb 13.6 Hct 42.1 MCV 104.0 H MCH 33.6 H MCHC 32.3 RDW Std Deviation 58.7 H RDW Coeff of Ayesha 15.5 H Plt Count 256 MPV 10.7 Immature Gran % (Auto) 0.200 Neut % (Auto) 65.6 Lymph % (Auto) 13.7 L [place] % (Auto) 14.9 H Eos % (Auto) 5.0 Baso % (Auto) 0.6 Absolute Neuts (auto) 3.6 Absolute Lymphs (auto) 0.74 L Nucleated RBC % 0 PT Cancelled 12.8 INR Cancelled 1.0 APTT Cancelled 29.5 Sodium 142 Potassium 3.4 L Chloride 106 Carbon Dioxide 33.0 H Anion Gap 3 L BUN 14 Creatinine 0.90 Estim Creat Clear Calc 55.05 Est GFR (MDRD) Af Amer 103 Est GFR (MDRD) Non-Af 85 BUN/Creatinine Ratio 15.6 Glucose 92 Calcium 8.8 Total Bilirubin 0.30 Direct Bilirubin 0.09 AST 29 ALT 22 Alkaline Phosphatase 102 Troponin I High Sens 39 Total Protein 7.0 Albumin 2.8 L Globulin 4.2 Urine Color Straw Urine Clarity Clear Urine pH 7.0 Ur Specific [place] 1.005 Urine Protein Negative Urine Glucose (UA) Normal Urine Ketones Negative Urine Occult Blood 10 H Urine Nitrite Negative Urine Bilirubin Negative Urine Urobilinogen Normal Ur Leukocyte Esterase Negative Urine RBC 0 SEEN Urine WBC 0 SEEN Ur Squamous Epith Cells 0 SEEN Urine Bacteria 0 SEEN Urine Mucus 0 SEEN Radiography Chest X-Ray - ED: 1 View, Read by ED Physician and Chronic Changes Diagnostic Testing: Clinical Impression(s) from Imaging Studies Chest X-Ray 11/18/22 13:46 IMPRESSION: Mild increased markings at the lung bases slightly more prominent on the right side. There has been no change. Electronically Signed: Rito Lugo MD at 15:16 EDT , Head/Neck CTA 11/18/22 13:46 IMPRESSION: Minimal degree of calcific plaque at the origin of the left internal carotid artery. Electronically Signed: Rito Lugo MD at 15:18 EDT , ADDENDUM: 11/18/22 1608 IMPRESSION: There are no acute findings. Chronic involutional changes of the brain. Electronically Signed: John Alcala MD at 16:02 EDT , EKG Initial EKG: Attestation: I personally reviewed and interpreted this EKG as follows: Interpretation: Atrial Fibrillation (A-fib with a ventricular rate of 75 bpm. Right bundle branch block noted. No significant or acute ST change.) Treatment and Re-Evaluation :: On repeat evaluation patient resting comfortably. Although his blood pressure readings had been high, when you servicenow administrator developer the room and make sure he holds his arm still his blood pressure is 152/88. CBC is unremarkable. Coags normal. Chemistry studies significant only for slightly low potassium at 3.4. Renal function is normal. LFTs are normal. Urinalysis reveals no sign of infection. Portable chest x-ray per my interpretation reveals chronic changes. Radiology interpretation is reviewed. They agree. CTA of the head and neck reveals minimal degree of calcific plaque at the origin of the left internal carotid. No acute findings noted. Patient is already on aspirin and Plavix. I see no indication of an acute stroke. Patient discussed with Gudelia Orozco, nurse practitioner who cares for him. He will be sent back to the [facility] to continue his current medication regimen. Discharge Plan Triage Chief Complaint: Neuro S/Sx ED Provider: Nancy Rogers Dx/Rx/DC Orders Clinical Impression: Brain TIA Instructions: ED TIA: Transient Ischemic Attack Prescriptions: No Action duloxetine 30 mg capsule,delayed release(DR/EC) 30 mg PO DAILY donepezil 10 mg tablet 10 mg PO DAILY clopidogrel [Plavix] 75 mg tablet 75 mg PO 2000 aspirin [Adult Aspirin Regimen] 81 mg tablet,delayed release (DR/EC) 81 mg PO DAILY carbamazepine 100 mg capsule, ER multiphase 12 hr 200 mg PO BID (DME) Motorized wheelchair See Rx Instructions .Route .MEDSUPPLY Qty: 1 0RF Rx Instructions: As directed [id number] 1 EACH tablet 1 tab PO DAILY vitamin E 400 UNIT capsule 400 unit PO DAILY lisinopril 5 MG tablet 5 mg PO DAILY pantoprazole 20 mg tablet,delayed release (DR/EC) 20 mg PO DAILY oxycodone-acetaminophen 5-325 mg Tablet 2 tab PO Q6H PRN (Reason: PAIN ) mirtazapine 30 mg Tablet 30 mg PO QHS furosemide [Lasix] 40 mg tablet 40 mg PO DAILY metoprolol succinate 100 mg tablet extended release 24 hr 100 mg PO DAILY acetaminophen 500 mg Tablet 1,000 mg PO TID potassium chloride 10 mEq tablet,ER particles/crystals 20 meq PO BID ferrous sulfate 325 mg (65 mg iron) tablet 325 mg PO BID Qty: 60 1RF levofloxacin 750 mg tablet 750 mg PO DAILY Qty: 5 0RF atorvastatin 20 mg tablet 20 mg PO QHS Qty: 90 3RF isosorbide mononitrate 30 mg tablet extended release 24 hr 30 mg PO DAILY Primary Care Provider: Dennys Manley Referrals: Dennys Manley MD [Primary Care Provider] - 1 Week Disposition Disposition: Home, Self Care
[2022-11-18 13:55] LABS: Absolute Lymphocyte Count 0.74 X10^3/uL (0.83-4.51); Absolute Neutrophil Count 3.6 X10^3/uL (2.0-7.7); Basophil# 0.03 X10^3/uL; Basophil% 0.6 % (0-1); Eosinophil# 0.27 X10^3/uL; Hematocrit 42.1 % (40-54); Hemoglobin 13.6 g/dL (13.0-16.5); Lymphocyte # 0.74 X10^3/ul (0.83-4.51); Lymphocyte % 13.7 % (19-41); Mean Corp Hgb Conc 32.3 g/dL (32-36); Mean Corpuscular Hgb 33.6 pg (27.0-32.0); Mean Platelet Vol. 10.7 fl (6.2-12.0); Monocyte# 0.81 X10^3/uL; Monocyte% 14.9 % (0-10); NRBC Flagged by Analyzer 0 % (0-5); Neutrophil # 3.56 X10^3/uL (2.7-7.7); Neutrophil % 65.6 % (47-70); Platelet Count 256 K/mm3 (150-450); RBC Distribution Width CV 15.5 % (11.6-14.6); RBC Distribution Width SD 58.7 fl (35.1-43.9); Red Blood Count 4.05 M/mm3 (4.6-6.2); White Blood Count 5.4 K/mm3 (4.4-11.0)
--- NOTE | 2022-11-18 13:58 | NURSING ---
PT HEMOLIZED. LAB TO SEND NEW LABEL
[2022-11-18 14:13] LABS: AST(SGOT) 29 U/L (15-37); Alanine Aminotransfer ALT/SGPT 22 U/L (16-61); Albumin, Serum 2.8 g/dL (3.2-5.0); Alkaline Phosphatase 102 U/L (45-117); Anion Gap 3 (5-15); BUN 14 mg/dL (7-18); BUN/Creat Ratio 15.6 RATIO (10-20); Bilirubin, Direct 0.09 mg/dL (0.00-0.30); Calcium,Total 8.8 mg/dL (8.5-10.1); Chloride 106 mmol/L (98-107); EST Glomerular Filtration Rate 85 mL/min (>60); Est Glom Filt Rate - Afr Amer 103 mL/min (>60); Estimated Creatinine Clearance 55.05 ml/min; Globulin 4.2 g/dL (2.2-4.2); Glucose 92 mg/dL (74-106); Potassium 3.4 mmol/L (3.5-5.1); Sodium Level 142 mmol/L (136-145); Troponin-I HS 39 pg/mL (3.0-78.0)
[2022-11-18 14:25] LABS: Prothrombin Time (Protime)PT. 12.8 SECONDS (11.7-14.9)
[2022-11-18 14:26] LABS: Partial Thromboplast Time 29.5 Seconds (24.1-36.2)
[2022-11-18 15:26] LABS: Bacteria 0 SEEN /hpf (None Seen); Mucous, Urine 0 SEEN /hpf (<or=2+); Red Blood Cells-Urine 0 SEEN /hpf (0-5); Squamous Epithelial Cells - UA 0 SEEN /hpf (0-5); White Blood Cells 0 SEEN /hpf (0-5)
[2022-11-18 15:45] LABS: Color, Urine Straw (Yellow); Glucose, Dipstick Normal (Normal); Ketone-Dipstick Negative (Negative); Leukocyte Esterase-Dipstick Negative /ul (Negative); Nitrite-Dipstick Negative (Negative); Occult Blood-Urine 10 /ul (Negative); Protein-Dipstick Negative (Negative); Specific Gravity, Urine 1.005 (1.002-1.030); Urine Bilirubin Dipstick Negative (Negative); Urine Clarity Clear (Clear); Urine Urobilinogen Normal (Normal)
--- NOTE | 2022-11-18 16:24 | ED.RN ---
ATTEMPTED TO CALL REPORT TO [facility], NO ANSWER.
--- NOTE | 2022-11-18 16:35 | NURSING ---
CALLED [facility], ETA IS 3 HRS
--- NOTE | 2022-11-18 17:41 | ED.RN ---
REPORT CALLED TO [facility] AT [facility].
--- NOTE | 2022-11-18 18:23 | NURSING ---
CALLED [facility], TALKED TO [facility]. ETA IS NOW 2030 APPROXIMATELY
[2022-11-18] MEDS: hydrALAZINE 20 MG/ML Vial 10 MG IV (18:49)
== END 2022-11-18 20:41 | disposition home or self-care (01) ==
PROVIDERS: Emergency Provider Emergency Medicine; PCP Internal Medicine; Visit Provider Emergency Medicine
DX: G45.8 Other transient cerebral ischemic attacks and related syndromes (principal); F03.90 Unspecified dementia, unspecified severity, without behavioral disturbance, psychotic disturbance, mood disturbance, and anxiety; E13.9 Other specified diabetes mellitus without complications; E78.5 Hyperlipidemia, unspecified; I10 Essential (primary) hypertension; I25.10 Atherosclerotic heart disease of native coronary artery without angina pectoris; I25.2 Old myocardial infarction; I5A Non-ischemic myocardial injury (non-traumatic); Z79.899 Other long term (current) drug therapy; Z79.02 Long term (current) use of antithrombotics/antiplatelets; Z79.82 Long term (current) use of aspirin; K21.9 Gastro-esophageal reflux disease without esophagitis; Z95.5 Presence of coronary angioplasty implant and graft; Z90.79 Acquired absence of other genital organ(s)
CPT/HCPCS: 70496; 70498; 71045; 80048; 80076; 81001; 84484; 85025; 85610; 85730; 93005; 99285; P9612; Q9967; A4216

== ENCOUNTER → 2023-01-02 | Outpatient (REF) | payer MEDICARE, OTHER, SELFPAY ==
[2023-01-02 07:36] LABS: Absolute Lymphocyte Count 0.95 X10^3/uL (0.83-4.51); Absolute Neutrophil Count 3.2 X10^3/uL (2.0-7.7); Basophil# 0.03 X10^3/uL; Basophil% 0.6 % (0-1); Eosinophil# 0.21 X10^3/uL; Hematocrit 39.3 % (40-54); Hemoglobin 12.9 g/dL (13.0-16.5); Lymphocyte # 0.95 X10^3/ul (0.83-4.51); Lymphocyte % 18.1 % (19-41); Mean Corp Hgb Conc 32.8 g/dL (32-36); Mean Corpuscular Hgb 34.7 pg (27.0-32.0); Mean Corpuscular Volume 105.6 fL (80-94); Mean Platelet Vol. 9.6 fl (6.2-12.0); Monocyte# 0.83 X10^3/uL; Monocyte% 15.8 % (0-10); NRBC Flagged by Analyzer 0 % (0-5); Neutrophil # 3.22 X10^3/uL (2.7-7.7); Neutrophil % 61.3 % (47-70); Platelet Count 235 K/mm3 (150-450); RBC Distribution Width CV 14.6 % (11.6-14.6); RBC Distribution Width SD 57.2 fl (35.1-43.9); Red Blood Count 3.72 M/mm3 (4.6-6.2); White Blood Count 5.3 K/mm3 (4.4-11.0)
[2023-01-02 07:37] LABS: Color, Urine Yellow (Yellow); Glucose, Dipstick Normal (Normal); Ketone-Dipstick Negative (Negative); Leukocyte Esterase-Dipstick Negative /ul (Negative); Nitrite-Dipstick Negative (Negative); Occult Blood-Urine Negative /ul (Negative); Protein-Dipstick 30 mg/dl (Negative); Specific Gravity, Urine 1.015 (1.002-1.030); Urine Bilirubin Dipstick Negative (Negative); Urine Clarity Clear (Clear); Urine Urobilinogen Normal (Normal); Urine pH 6.5 (5.0 - 8.0)
[2023-01-02 07:59] LABS: ALB/GLOB Ratio 0.7 RATIO (0.9-2.4); AST(SGOT) 24 U/L (15-37); Alanine Aminotransfer ALT/SGPT 19 U/L (16-61); Albumin, Serum 2.6 g/dL (3.2-5.0); Alkaline Phosphatase 94 U/L (45-117); Anion Gap 3 (5-15); BUN 18 mg/dL (7-18); BUN/Creat Ratio 23.1 RATIO (10-20); Calcium,Total 8.8 mg/dL (8.5-10.1); Chloride 108 mmol/L (98-107); Creatinine, Serum 0.78 mg/dL (0.70-1.30); EST Glomerular Filtration Rate 100 mL/min (>60); Est Glom Filt Rate - Afr Amer 121 mL/min (>60); Globulin 3.9 g/dL (2.2-4.2); Glucose 93 mg/dL (74-106); Potassium 3.5 mmol/L (3.5-5.1); Protein, Total 6.5 g/dL (6.4-8.2); Sodium Level 142 mmol/L (136-145)
== END ==
LOC: OLS.WHLEAS 05:00
PROVIDERS: PCP Internal Medicine; Visit Provider Internal Medicine
DX: F02.80 Dementia in other diseases classified elsewhere, unspecified severity, without behavioral disturbance, psychotic disturbance, mood disturbance, and anxiety (principal); E11.51 Type 2 diabetes mellitus with diabetic peripheral angiopathy without gangrene; E87.6 Hypokalemia; Z79.899 Other long term (current) drug therapy
CPT/HCPCS: 36415; 80053; 81002; 85025; 87086

== ENCOUNTER → 2023-02-07 | Outpatient (REF) | payer SELFPAY | LOC: OLS.WHLEAS 19:30 | PROVIDERS: PCP Internal Medicine; Visit Provider Internal Medicine | DX: L08.9 Local infection of the skin and subcutaneous tissue, unspecified (principal) ==

== ENCOUNTER → 2023-02-13 | Outpatient (REF) | payer MEDICARE, OTHER, SELFPAY ==
[2023-02-13 08:32] LABS: Absolute Lymphocyte Count 0.79 X10^3/uL (0.83-4.51); Absolute Neutrophil Count 3.9 X10^3/uL (2.0-7.7); Basophil# 0.03 X10^3/uL; Basophil% 0.5 % (0-1); Eosinophil# 0.25 X10^3/uL; Eosinophils% 4.3 % (0-5); Hematocrit 40.1 % (40-54); Hemoglobin 12.5 g/dL (13.0-16.5); Lymphocyte # 0.79 X10^3/ul (0.83-4.51); Lymphocyte % 13.7 % (19-41); Mean Corp Hgb Conc 31.2 g/dL (32-36); Mean Corpuscular Hgb 33.9 pg (27.0-32.0); Mean Corpuscular Volume 108.7 fL (80-94); Mean Platelet Vol. 9.5 fl (6.2-12.0); Monocyte# 0.77 X10^3/uL; Monocyte% 13.3 % (0-10); NRBC Flagged by Analyzer 0 % (0-5); Neutrophil # 3.92 X10^3/uL (2.7-7.7); Neutrophil % 67.9 % (47-70); Platelet Count 234 K/mm3 (150-450); RBC Distribution Width CV 14.7 % (11.6-14.6); RBC Distribution Width SD 59.5 fl (35.1-43.9); Red Blood Count 3.69 M/mm3 (4.6-6.2); White Blood Count 5.8 K/mm3 (4.4-11.0)
[2023-02-13 08:52] LABS: Anion Gap 3 (5-15); BUN 21 mg/dL (7-18); BUN/Creat Ratio 25.3 RATIO (10-20); Calcium,Total 9.2 mg/dL (8.5-10.1); Chloride 108 mmol/L (98-107); Creatinine, Serum 0.83 mg/dL (0.70-1.30); EST Glomerular Filtration Rate 93 mL/min (>60); Est Glom Filt Rate - Afr Amer 112 mL/min (>60); Glucose 92 mg/dL (74-106); Potassium 3.8 mmol/L (3.5-5.1); Sodium Level 141 mmol/L (136-145)
== END ==
LOC: OLS.WHLEAS 05:00
PROVIDERS: PCP Internal Medicine; Visit Provider Internal Medicine
DX: E87.6 Hypokalemia (principal); E11.51 Type 2 diabetes mellitus with diabetic peripheral angiopathy without gangrene
CPT/HCPCS: 36415; 80048; 85025

== ENCOUNTER → 2023-03-14 | Outpatient (REF) | payer MEDICARE, OTHER, SELFPAY ==
[2023-03-14 09:31] LABS: Absolute Lymphocyte Count 0.78 X10^3/uL (0.83-4.51); Absolute Neutrophil Count 3.4 X10^3/uL (2.0-7.7); Basophil# 0.03 X10^3/uL; Basophil% 0.6 % (0-1); Eosinophil# 0.25 X10^3/uL; Eosinophils% 4.8 % (0-5); Hemoglobin 12.7 g/dL (13.0-16.5); Lymphocyte # 0.78 X10^3/ul (0.83-4.51); Mean Corp Hgb Conc 31.8 g/dL (32-36); Mean Corpuscular Volume 107.2 fL (80-94); Mean Platelet Vol. 10.1 fl (6.2-12.0); Monocyte# 0.78 X10^3/uL; NRBC Flagged by Analyzer 0 % (0-5); Neutrophil # 3.35 X10^3/uL (2.7-7.7); Neutrophil % 64.2 % (47-70); Platelet Count 229 K/mm3 (150-450); RBC Distribution Width CV 14.3 % (11.6-14.6); Red Blood Count 3.73 M/mm3 (4.6-6.2); White Blood Count 5.2 K/mm3 (4.4-11.0)
[2023-03-14 10:04] LABS: AST(SGOT) 28 U/L (15-37); Alanine Aminotransfer ALT/SGPT 28 U/L (16-61); Albumin, Serum 2.6 g/dL (3.2-5.0); Alkaline Phosphatase 112 U/L (45-117); Anion Gap 4 (5-15); BUN 23 mg/dL (7-18); BUN/Creat Ratio 22.3 RATIO (10-20); Bilirubin, Direct 0.08 mg/dL (0.00-0.30); Calcium,Total 8.9 mg/dL (8.5-10.1); Chloride 109 mmol/L (98-107); Cholesterol 164 mg/dL (200); Creatinine, Serum 1.03 mg/dL (0.70-1.30); EST Glomerular Filtration Rate 72 mL/min (>60); Est Glom Filt Rate - Afr Amer 88 mL/min (>60); Globulin 3.9 g/dL (2.2-4.2); Glucose 95 mg/dL (74-106); High Density Lipoprotein 48 mg/dL; Potassium 3.4 mmol/L (3.5-5.1); Protein, Total 6.5 g/dL (6.4-8.2); Sodium Level 142 mmol/L (136-145); Triglycerides 105 mg/dL; Very Low Density Lipoprotein 21 mg/dL (5-40)
[2023-03-14 10:49] LABS: Hemoglobin A1c 5.7 % (3.8-5.6)
== END ==
LOC: OLS.WHLEAS 05:00
PROVIDERS: PCP Internal Medicine; Visit Provider Internal Medicine
DX: E11.51 Type 2 diabetes mellitus with diabetic peripheral angiopathy without gangrene (principal); E11.43 Type 2 diabetes mellitus with diabetic autonomic (poly)neuropathy; E11.621 Type 2 diabetes mellitus with foot ulcer; G47.33 Obstructive sleep apnea (adult) (pediatric); E87.6 Hypokalemia
CPT/HCPCS: 36415; 80048; 80061; 80076; 83036; 85025

== ENCOUNTER → 2023-03-20 | Outpatient (REF) | payer MEDICARE, OTHER, SELFPAY ==
[2023-03-20 08:27] LABS: Potassium 3.9 mmol/L (3.5-5.1)
== END ==
LOC: OLS.WHLEAS 05:00
PROVIDERS: PCP Internal Medicine; Visit Provider Internal Medicine
DX: E87.6 Hypokalemia (principal); E11.51 Type 2 diabetes mellitus with diabetic peripheral angiopathy without gangrene; E11.43 Type 2 diabetes mellitus with diabetic autonomic (poly)neuropathy; E11.621 Type 2 diabetes mellitus with foot ulcer; G47.33 Obstructive sleep apnea (adult) (pediatric)
CPT/HCPCS: 36415; 84132

== ENCOUNTER → 2023-04-11 | Outpatient (REF) | payer MEDICARE, OTHER, SELFPAY ==
[2023-04-11 08:02] LABS: Anion Gap 3 (5-15); BUN 18 mg/dL (7-18); Chloride 110 mmol/L (98-107); Creatinine, Serum 0.82 mg/dL (0.70-1.30); EST Glomerular Filtration Rate 94 mL/min (>60); Est Glom Filt Rate - Afr Amer 114 mL/min (>60); Glucose 95 mg/dL (74-106); Potassium 3.4 mmol/L (3.5-5.1); Sodium Level 144 mmol/L (136-145)
[2023-04-11 08:08] LABS: Absolute Lymphocyte Count 0.79 X10^3/uL (0.83-4.51); Absolute Neutrophil Count 3.6 X10^3/uL (2.0-7.7); Basophil# 0.03 X10^3/uL; Basophil% 0.6 % (0-1); Eosinophil# 0.25 X10^3/uL; Eosinophils% 4.6 % (0-5); Hematocrit 38.4 % (40-54); Hemoglobin 12.3 g/dL (13.0-16.5); Lymphocyte # 0.79 X10^3/ul (0.83-4.51); Lymphocyte % 14.5 % (19-41); Mean Corpuscular Volume 106.1 fL (80-94); Mean Platelet Vol. 9.8 fl (6.2-12.0); Monocyte# 0.73 X10^3/uL; Monocyte% 13.4 % (0-10); NRBC Flagged by Analyzer 0 % (0-5); Neutrophil # 3.61 X10^3/uL (2.7-7.7); Neutrophil % 66.5 % (47-70); Platelet Count 222 K/mm3 (150-450); RBC Distribution Width CV 14.2 % (11.6-14.6); RBC Distribution Width SD 56.6 fl (35.1-43.9); Red Blood Count 3.62 M/mm3 (4.6-6.2); White Blood Count 5.4 K/mm3 (4.4-11.0)
--- OUTSIDE RECORDS SUMMARY | 2023-04-12 18:48 | XMS RPT_ITS | CCD ---
Author Name Unknown Address [address] [place] [address] Organization [facility] Care Team Providers Care Warehouse Distribution Associate Name Role Phone Mi Armando Unavailable Unavailable Shena Stokes Unavailable Unavailable Remy Borjas Unavailable Unavailable Update Needed Unavailable Unavailable Radha Gill Primary Care Provider DR RADHA GILL MD Primary Care Physician [phone] Update Needed Unavailable Unavailable Unavailable Unavailable Radha Gill Primary Care Unavailable Iveth Hale Attending Unavailable Noe Allen Unavailable CHAUNCEY LEE Attending Unavailable Desi, Dr. Noe Solano Primary Care Unavail able Squires-Odykcuv1cv, [id number] Attending Unav Radha Staley Primary Care Unavailable Squires-Kmcbgxe1yd, Zcqnmq6e Attending Unav ailcheyanne Allen, Dr. Noe Solano Primary Care Unavail able Fascione, Dr. Mei Salcido Attending Unava ilable Allen, Dr. Noe Solano Primary Care Unavail able Fascione, Dr. Mei Salcido Referring Unava ilable Fascione, Dr. Mei Salcido Attending Unava ilable Fascione, Dr. Mei Salcido Admitting Unava ilable Allen, Dr. Noe Solano Primary Care Unavail able Allen, Dr. Noe Solano Primary Care Unavail able Shaw Anderson, Dr. Juventino Gutierres Referring Unavailable Shaw Anderson, Dr. Juventino Gutierres Attending Unavailable Desi, Dr. Noe Solano Primary Care Unavail able Shaw Anderson, Dr. Juventino Gutierres Referring Unavailable Shaw Anderson, Dr. Juventino Gutierres Attending Unavailable Benja Ricketts Referring Unavailable Radha Gill Primary Care Unavailable Dr. Juventino Negron Attending Unavailable Benja Ricketts Referring Unavailable Benja Ricketts Attending Unavailable Benja Ricketts Admitting Unavailable Dr. Noe Allen Primary Care Unavail able Noe Allen MD Primary Care Provider Un available Noe Allen MD Primary Care Provider JUVENTINO NEGRON Referring Unav ailable NOE ALLEN Primary Care Unavailable Allergies Allergy Classification Reported Allergen(s) Allergy Type Date of Onset Reaction(s) Facility (4 sources) carisoprodol; Translations: [Carisoprodol] Drug Allergy 1 ? rsn, itching sensation [facility] Work Phone: (4 sources) itraconazole; Translations: [SPORANOX] Drug Allergy 1 Rash, skin turned red [facility] Work Phone: (16 sources) Carisoprodol; Translations: [carisoprodol] Drug Allergy 6 GI Upset [facility] Work Phone: (4 sources) Latex Drug Allergy 3 Rash [facility] (2 sources) spoarnox [Other] Propensity to adverse reactions 6 Rash [facility] (2 sources) Itraconazole; Translations: [itraconazole] Drug Allergy [facility] (1 source) ALLERGIES NOT ON FILE; Translations: [ALLERGIES NOT ON FILE] Propensity to adverse reactions (disorder) [facility] 2 Repository Medications Current Medications Medication Drug Class(es) Dates Sig (Normalized) Sig (Original) acetaminophen 500 mg oral tablet (14 sources) Start: 04-13-2018 Tylenol Extra Strength 500 mg oral tablet Dose : 1,000 mg = 2 tab(s), Oral, BID, 0 Refill(s) Start Date: 04/13/18 Status: Ordered Completed/Discontinued Medications Medication Drug Class(es) Dates Sig (Normalized) Sig (Original) acetaminophen 325 mg / HYDROcodone bitartrate 5 mg oral tablet (2 sources) Opioid Agonist Start: 01-21-2015 take 1 tablet by mouth twice daily as needed HYDROCODONE-ACET AMINOPHEN 5-325 MG TABS One tablet by mouth twice daily as needed HYDROCODONE-ACET AMINOPHEN [id number] Janes Loera MD amLODIPine 10 mg oral tablet (1 source) Dihydropyridine Calcium Channel Koko amLODIPine Besylate 10 MG Oral Tablet Quantity: 0 Refills: 0 Ordered: 03-Dec-2019 DO Active ascorbic acid 60 mg / beta carotene 5000 unt / copper sulfate 40 mg / dl-alpha tocopheryl acetate 30 unt / sodium selenite 0.04 mg / zinc oxide 40 mg oral tablet (1 source) Vitamin C Centrum Silver Oral Tablet Refills: 0 Active aspirin 81 mg oral tablet (18 sources) Platelet Aggregation Inhibitor, Nonsteroidal Anti-inflammatory Drug Start: 10-20-2015 take 1 tablet by mouth once daily ASPIRIN 81 MG TABS One tablet by mouth daily ASPIRIN [id number] Janes Loera MD Problems Active Problems Problem Classification Problem Date Documented Da te Episodic/Chronic Anal and rectal conditions (11 sources) Rectal prolapse; Translations: [Rectal prolapse] Episodic Cancer of prostate (20 sources) Adenocarcinoma of prostate; Translations: [Carcinoma of prostate] Chronic Cardiac dysrhythmias (13 sources) Atrial fibrillation; Translations: [Atrial fibrillation] Onset: 02-10-2022 07-19-2022 Chronic Chronic ulcer of skin (20 sources) Ulcer of foot; Translations: [Ulcer of other part of foot] Onset: 02-10-2022 Chronic Congestive heart failure; nonhypertensive (2 sources) Heart failure, unspecified; Translations: [Heart failure] Onset: 07-14-2022 07-19-2022 Chronic Coronary atherosclerosis and other heart disease (20 sources) Preinfarction syndrome; Translations: [Coronary atherosclerosis] Onset: 08-27-2010 Resolved: 06-04-2015 09-04-2013 Chronic Coronary atherosclerosis and other heart disease (13 sources) Coronary angioplasty status; Translations: [Patient post percutaneous transluminal coronary angioplasty] Onset: 08-27-2010 08-27-2010 Episodic Deficiency and other anemia (1 source) Iron deficiency anemia, unspecified; Translations: [Iron deficiency anemia, unspecified] Onset: 07-14-2022 Episodic Deficiency and other anemia (1 source) Iron deficiency anemia; Translations: [Iron deficiency anemia, unspecified] 07-19-2022 Episodic Delirium, dementia, and amnestic and other cognitive disorders (2 sources) Unspecified dementia without behavioral disturbance; Translations: [Dementia] Onset: 07-14-2022 07-19-2022 Chronic Diabetes mellitus with complications (6 sources) Type 2 diabetes mellitus with foot ulcer; Translations: [Type 2 diabetes mellitus with other skin ulcer] Onset: 07-14-2022 07-19-2022 Chronic Disorders of lipid metabolism (17 sources) Hyperlipidemia; Translations: [Hypercholesterolemi a] Onset: 08-27-2010 08-27-2010 Chronic Essential hypertension (16 sources) Hypertensive disorder; Translations: [Unspecified essential hypertension] Onset: 12-14-2012 12-14-2012 Chronic Fracture of lower limb (1 source) Nondisplaced fracture of proximal phalanx of right great toe, initial encounter for closed fracture; Translations: [Nondisp fx of proximal phalanx of right great toe, init] Onset: 08-05-2022 Episodic Genitourinary symptoms and ill-defined conditions (2 sources) Urinary incontinence 04-19-2018 Chronic Hypertension with complications and secondary hypertension (2 sources) Hypertensive heart disease with heart failure; Translations: [Hypertensive heart failure] Onset: 07-14-2022 07-19-2022 Chronic Nutritional deficiencies (2 sources) Unspecified protein-calorie malnutrition; Translations: [Deficiency of macronutrients] Onset: 07-14-2022 07-19-2022 Chronic Osteoarthritis (4 sources) Arthritis; Translations: [Unspecified osteoarthritis, unspecified site] Onset: 07-14-2022 04-19-2018 Chronic Other acquired deformities (2 sources) Scoliosis deformity of spine; Translations: [Scoliosis, unspecified] Onset: 06-23-2011 06-23-2011 Chronic Other acquired deformities (1 source) Spondylolisthesis, site unspecified; Translations: [Spondylolisthesis, site unspecified] Onset: 07-14-2022 Episodic Other acquired deformities (1 source) Spondylolisthesis; Translations: [Spondylolisthesis, site unspecified] 07-19-2022 Episodic Other and ill-defined heart disease (2 sources) Heart disease 04-19-2018 Chronic Other circulatory disease (10 sources) History of peripheral vascular angioplasty; Translations: [Other postprocedural status] Chronic Other circulatory disease (3 sources) Peripheral vascular angioplasty status with implants and grafts; Translations: [Peripheral vascular angioplasty status w implants and grafts] Onset: 02-10-2022 Chronic Other connective tissue disease (5 sources) Swelling of lower limb; Translations: [Swelling of limb] Episodic Other connective tissue disease (3 sources) Pain in right toe(s); Translations: [Pain in right toe(s)] Onset: 08-05-2022 Episodic Other endocrine disorders (12 sources) Male hypogonadism; Translations: [Other testicular hypofunction] Chronic Other gastrointestinal disorders (11 sources) Incontinence of feces; Translations: [Full incontinence of feces] Episodic Peripheral and visceral atherosclerosis (20 sources) Peripheral vascular disease; Translations: [Peripheral vascular disease, unspecified] Onset: 11-27-2014 11-27-2014 Chronic Residual codes; unclassified (1 source) Obstructive sleep apnea (adult) (pediatric); Translations: [Obstructive sleep apnea (adult) (pediatric)] Onset: 07-14-2022 Chronic Residual codes; unclassified (1 source) Obstructive sleep apnea syndrome; Translations: [Obstructive sleep apnea (adult) (pediatric)] 07-19-2022 Chronic Residual codes; unclassified (2 sources) Tobacco user 04-19-2018 Episodic Residual codes; unclassified (1 source) Other specified postprocedural states; Translations: [Other specified postprocedural states] Onset: 02-10-2022 Episodic Residual codes; unclassified (1 source) Body mass index (BMI) 24.0-24.9, adult; Translations: [Body mass index [BMI] 24.0-24.9, adult] Onset: 07-14-2022 Episodic Residual codes; unclassified (1 source) Body mass index 20-24 - normal; Translations: [Body mass index (BMI) 24.0-24.9, adult] 07-19-2022 Episodic Spondylosis; intervertebral disc disorders; other back problems (2 sources) Degeneration of cervical intervertebral disc; Translations: [Other cervical disc degeneration, unspecified cervical region] Onset: 06-23-2011 06-23-2011 Chronic Spondylosis; intervertebral disc disorders; other back problems (10 sources) Chronic low back pain; Translations: [Lumbar radiculopathy] Onset: 06-23-2011 06-23-2011 Episodic Unclassified (2 sources) Long-term drug therapy; Translations: [Other keno terminal operator (current) drug therapy] Onset: 08-27-2010 08-27-2010 Unclassified (1 source) Placement of stent in coronary artery ; Translations: [Presence of coronary angioplasty implant and graft] Onset: 08-27-2010 06-04-2015 Varicose veins of lower extremity (3 sources) Varicose veins of unspecified lower extremity with ulcer of unspecified site; Translations: [Varicose veins of right lower extremity with ulcer of calf] Onset: 06-07-2022 Episodic Past or Other Problems Problem Classification Problem Date Documented Date Episodic/Chronic Allergic reactions (4 sources) Contact dermatitis; Translations: [Contact dermatitis due to solar radiation] Onset: 03-07-2007 03-07-2007 Episodic Cardiac dysrhythmias (2 sources) Palpitations; Translations: [Palpitations] Onset: 08-27-2010 08-27-2010 Episodic Conditions associated with dizziness or vertigo (2 sources) Dizziness and giddiness; Translations: [Dizziness and giddiness] Onset: 10-20-2015 10-20-2015 Episodic Crushing injury or internal injury (8 sources) Injury to other specified blood vessels of upper extremity; Translations: [Injury to other specified blood vessels of lower extremity] Onset: 08-27-2010 Resolved: 12-15-2014 12-15-2014 Episodic Malaise and fatigue (2 sources) Malaise and fatigue; Translations: [Personal history of other specified conditions] Onset: 11-27-2014 11-27-2014 Episodic Neoplasms of unspecified nature or uncertain behavior (2 sources) Neoplasm of uncertain behavior of skin; Translations: [Neoplasm of uncertain behavior of skin] Onset: 05-29-2006 05-29-2006 Episodic Nonspecific chest pain (8 sources) Chest pain; Translations: [Precordial pain] Onset: 08-27-2010 Resolved: 11-27-2014 09-22-2015 Episodic Other circulatory disease (2 sources) Other disorder of circulatory system; Translations: [Other disorder of circulatory system] Onset: 03-22-2022 Episodic Other injuries and conditions due to external causes (2 sources) Open wound; Translations: [Open wound(s) (multiple) of unspecified site(s), without mention of complication] Onset: 07-10-2006 07-10-2006 Episodic Other lower respiratory disease (4 sources) Dyspnea; Translations: [Shortness of breath] Onset: 08-27-2010 Resolved: 11-27-2014 11-27-2014 Episodic Other non-epithelial cancer of skin (4 sources) History of malignant neoplasm of skin; Translations: [Carcinoma in situ of skin] Onset: 06-23-2006 03-07-2007 Episodic Other screening for suspected conditions (not mental disorders or infectious disease) (4 sources) Electrocardiogram abnormal; Translations: [Abnormal electrocardiogram [ECG] [EKG]] Onset: 08-27-2010 Resolved: 12-15-2014 08-27-2010 Episodic Other skin disorders (2 sources) Other seborrheic keratosis; Translations: [Other seborrheic keratosis] Onset: 01-08-2010 01-08-2010 Episodic Other skin disorders (2 sources) Inflamed seborrheic keratosis; Translations: [Inflamed seborrheic keratosis] Onset: 01-08-2010 01-08-2010 Episodic Other skin disorders (2 sources) Scar conditions and fibrosis of skin; Translations: [Scar condition and fibrosis of skin] Onset: 03-07-2007 01-08-2010 Episodic Other skin disorders (2 sources) Actinic keratosis; Translations: [Actinic keratosis] Onset: 05-29-2006 01-08-2010 Episodic Other skin disorders (2 sources) Disorder of skin pigmentation; Translations: [Other dyschromia] Onset: 03-07-2007 01-08-2010 Episodic Other skin disorders (2 sources) Asteatosis cutis; Translations: [Xerosis cutis] Onset: 01-09-2010 01-09-2010 Episodic Residual codes; unclassified (7 sources) Family history of stroke; Translations: [Edema] Onset: 07-02-2013 Resolved: 11-27-2014 09-27-2013 Episodic Residual codes; unclassified (2 sources) FH: Hypertension; Translations: [Family history of ischemic heart disease and other diseases of the circulatory system] Resolved: 11-27-2014 11-27-2014 Episodic Residual codes; unclassified (1 source) Edema; Translations: [Edema, unspecified] Onset: 07-02-2013 07-02-2013 Episodic Unclassified (4 sources) Other specified peripheral vascular diseases; Translations: [Other specified peripheral vascular diseases] Onset: 09-24-2013 Resolved: 11-27-2014 11-27-2014 Results Test Name Value Interpretation Reference Range Facil ity Vital Signs Date Time Vital Sign Value Performing Clinician Facility 08-16-2022 15:39-0400 Body mass index (BMI) [Ratio] Medical Reason Not Done Noe Allen Work Phone: XF-Gvjnyitfxr-XTS [facility] [place] Work Phone: 08-16-2022 15:39-0400 Diastolic blood pressure 70 mm[Hg] Noe Allen Work Phone: LQ-Aozskacrpv-NCY [facility] [address] [place] Work Phone: 08-16-2022 15:39-0400 Heart rate 55 /min Noe Allen Work Phone: YW-Ojykkvofvj-DXM [facility] [address] [place] Work Phone: 08-16-2022 15:39-0400 SaO2% (BldA) [Mass fraction] 96 % Noe Allen Work Phone: UP-Xhmhmcoodl-UQQ [facility] [address] [place] Work Phone: 08-16-2022 15:39-0400 Systolic blood pressure 120 mm[Hg] Noe Allen Work Phone: UM-Emctydmqre-USU [facility] [address] [place] Work Phone: 07-14-2022 07:54-0400 Body height 167.4 cm Mei Fascione DPM Work Phone: [facility] 07-14-2022 07:54-0400 Body mass index (BMI) [Ratio] 24.27 kg/m2 Mei Fascione DPM Work Phone: [facility] 07-14-2022 07:54-0400 Body weight 68 kg Mei Fascione DPM Work Phone: [facility] 06-07-2022 11:14-0500 SaO2% (BldA) [Mass fraction] 95 % Noe Allen Work Phone: [facility] [address] Work Phone: 04-26-2022 13:40-0500 Body height 170.[address] [facility] Work Phone: [phone] [place] [address] Work Phone: 04-26-2022 13:40-0500 Body mass index (BMI) [Ratio] 25.39 kg/m2 [facility] [place] [address] [facility] Work Phone: [phone] [place] [address] Work Phone: 04-26-2022 13:40-0500 Body surface area Derived from formula 1.85 m2 [facility] [place] [address] [facility] Work Phone: [phone] [place] [address] Work Phone: 04-26-2022 13:40-0500 Body weight 73.[address] [facility] Work Phone: [phone] [place] [address] Work Phone: 04-26-2022 13:40-0500 Diastolic blood pressure 78 mm[Hg] [address] [facility] Work Phone: [phone] [place] [address] Work Phone: 04-26-2022 13:40-0500 Heart rate 67 /min [address] [facility] Work Phone: [phone] [place] [address] Work Phone: 04-26-2022 13:40-0500 SaO2% (BldA) [Mass fraction] 95 % [address] [facility] Work Phone: [phone] [place] [address] Work Phone: 04-26-2022 13:40-0500 Systolic blood pressure 146 mm[Hg] [address] [facility] Work Phone: [phone] [place] [address] Work Phone: 02-10-2022 09:28-0400 Body height 167.64 cm Iveth Hale PA-C Work Phone: [facility]hsjyqpyqa[facility] Work Phone: 02-10-2022 09:28-0400 Body mass index (BMI) [Ratio] 24.86 kg/m2 Iveth Linetsky PA-C Work Phone: TY-Bquedxiuxl-Ndrm [facility] Work Phone: 02-10-2022 09:28-0400 Body surface area Derived from formula 1.79 m2 Iveth Linetsky PA-C Work Phone: RL-Qnnjifxibo-Nwmx [facility] Work Phone: 02-10-2022 09:28-0400 Body weight 69.85 kg Iveth Linetsky PA-C Work Phone: FH-Mhstfsqeui-Gvqc [facility] Work Phone: 02-10-2022 09:28-0400 Diastolic blood pressure 64 mm[Hg] Iveth LineGroupPriceky PA-C Work Phone: HU-Vuzvevimal-Zykp [facility] Work Phone: 02-10-2022 09:28-0400 Heart rate 56 /min Iveth Linetsky PA-C Work Phone: VY-Fwqncqnhvj-Kitb [facility] Work Phone: 02-10-2022 09:28-0400 SaO2% (BldA) [Mass fraction] 96 % Iveth LineGroupPriceky PA-C Work Phone: AT-Xvaoxbdjhd-Sdcz [facility] Work Phone: 02-10-2022 09:28-0400 Systolic blood pressure 147 mm[Hg] Iveth Linetsky PA-C Work Phone: TR-Dudwhitrvi-Xtfo [facility] Work Phone: 09-02-2021 14:50-0400 Diastolic blood pressure 60 mm[Hg] FILEMON ROSE MD [facility] 09-02-2021 14:50-0400 Heart rate 56 /min FILEMON ROSE MD [facility] 09-02-2021 14:50-0400 Mean blood pressure 83 mm[Hg] FILEMON ROSE MD [facility] 09-02-2021 14:50-0400 Systolic blood pressure 130 mm[Hg] FILEMON ROSE MD [facility] 09-02-2021 13:50-0400 Diastolic blood pressure 70 mm[Hg] FILEMON ROSE MD [facility] 09-02-2021 13:50-0400 Heart rate 56 /min FILEMON ROSE MD [facility] 09-02-2021 13:50-0400 Mean blood pressure 90 mm[Hg] FILEMON ROSE MD [facility] 09-02-2021 13:50-0400 Systolic blood pressure 130 mm[Hg] FILEMON ROSE MD [facility] 09-02-2021 13:20-0400 Diastolic blood pressure 68 mm[Hg] FILMEON ROSE MD [facility] 09-02-2021 13:20-0400 Heart rate 60 /min FILEMON ROSE MD [facility] 09-02-2021 13:20-0400 Mean blood pressure 83 mm[Hg] FILEMON ROSE MD [facility] 09-02-2021 13:20-0400 Systolic blood pressure 114 mm[Hg] FILEMON ROSE MD [facility] 09-02-2021 12:50-0400 Respiratory rate 16 /min FILEMON ROSE MD [facility] 09-02-2021 11:35-0400 Respiratory rate 16 /min FILEMON ROSE MD [facility] 09-02-2021 11:20-0400 Respiratory rate 16 /min FILEMON ROSE MD [facility] 09-02-2021 11:06-0400 Reason For Taking VItal Signs FILEMON ROSE MD [facility] 09-02-2021 10:50-0400 Heart rate 61 /min FILEMON ROSE MD [facility] 09-02-2021 10:45-0400 Heart rate 64 /min FILEMON ROSE MD [facility] 09-02-2021 10:40-0400 Heart rate 61 /min FILEMON ROSE MD [facility] 09-02-2021 09:00-0400 Body height 170.2 cm FILEMON ROSE MD [facility] 09-02-2021 09:00-0400 Body temperature 95.54 [degF] FILEMON ROSE MD [facility] 09-02-2021 09:00-0400 Body weight 69.9 kg FILEMON ROSE MD [facility] 07-22-2021 16:12-0400 Diastolic blood pressure 70 mm[Hg] FILEMON ROSE MD [facility] 07-22-2021 16:12-0400 Heart rate 95 /min FILEMON ROSE MD [facility] 07-22-2021 16:12-0400 Respiratory rate 18 /min FILEMON ROSE MD [facility] 07-22-2021 16:12-0400 Systolic blood pressure 124 mm[Hg] FILEMON ROSE MD [facility] 07-22-2021 15:20-0400 Diastolic blood pressure 76 mm[Hg] FILEMON ROSE MD [facility] 07-22-2021 15:20-0400 Heart rate 99 /min FILEMON ROSE MD [facility] 07-22-2021 15:20-0400 Respiratory rate 18 /min FILEMON ROSE MD [facility] 07-22-2021 15:20-0400 Systolic blood pressure 128 mm[Hg] FILEMON ROSE MD [facility] 07-22-2021 14:50-0400 Diastolic blood pressure 74 mm[Hg] FILEMON ROSE MD [facility] 07-22-2021 14:50-0400 Heart rate 97 /min FILEMON ROSE MD [facility] 07-22-2021 14:50-0400 Systolic blood pressure 130 mm[Hg] FILEMON ROSE MD [facility] 07-22-2021 14:20-0400 Mean blood pressure 91 mm[Hg] FILEMON ROSE MD [facility] 07-22-2021 13:50-0400 Mean blood pressure 95 mm[Hg] FILEMON ROSE MD [facility] 07-22-2021 13:20-0400 Mean blood pressure 92 mm[Hg] FILEMON ROSE MD [facility] 07-22-2021 13:20-0400 Respiratory rate 18 /min FILEMON ROSE MD [facility] 07-22-2021 12:35-0400 Heart rate 100 /min FILEMON ROSE MD [facility] 07-22-2021 09:45-0400 Body height 170.2 cm FILEMON ROSE MD [facility] 07-22-2021 09:45-0400 Body temperature 97.16 [degF] FILEMON ROSE MD [facility] 07-22-2021 09:45-0400 Body weight 69.6 kg FILEMON ROSE MD [facility] 07-22-2021 09:45-0400 Body weight 24.03 kg/m2 FILEMON ROSE MD [facility] 07-22-2021 09:45-0400 diastolic 84 mm[Hg] FILEMON ROSE MD [facility] 07-22-2021 09:45-0400 Heart rate 127 /min FILEMON ROSE MD [facility] 07-22-2021 09:45-0400 systolic 123 mm[Hg] FILEMON ROSE MD [facility] 01-31-2017 08:07-0400 BMI (Body Mass Index) 20.37 kg/m2 [facility] Work Phone: 01-31-2017 08:07-0400 BP Diastolic 70 mm[Hg] [facility] Work Phone: 01-31-2017 08:07-0400 BP Systolic 140 mm[Hg] [facility] Work Phone: 01-31-2017 08:07-0400 Height 172.72 cm [facility] Work Phone: 01-31-2017 08:07-0400 Pulse (Heart Rate) 84 /min [facility] Work Phone: 01-31-2017 08:07-0400 Weight 60.78 kg [facility] Work Phone: 07-19-2016 11:21-0400 Respiratory Rate 20 /min [facility] Work Phone: 01-19-2016 14:46-0400 BSA (Body Surface Area) 1.72 m2 [facility] Work Phone: 09-22-2015 14:11-0400 Heart rate 67 /min [facility] Work Phone: 12-14-2012 09:01-0400 BP Diastolic 70 mm[Hg] [facility] Work Phone: 12-14-2012 09:010400 BP Diastolic 60 mm[Hg] [facility] Work Phone: 12-14-2012 09:01-0400 BP Systolic 142 mm[Hg] [facility] Work Phone: 12-14-2012 09:01-0400 Pulse (Heart Rate) 64 /min [facility] Work Phone: Encounters Encounter Date Encounter Type Care Provider Facility Start: 03-28-2023 End: 03-29-2023 ambulatory JUVENTINO ANDERSON [facility] Start: 03-28-2023 End: 03-28-2023 Subsequent hospital visit by physician [address] Procedures Date Procedure Procedure Detail Performing Clinician Start: 03-28-2023 [facility] US ANKLE BRACHIAL INDEX (RALPH) WITHOUT EXERCISE JUVENTINO ANDERSON Start: 03-28-2023 Non-invas physiologic std extremity art 2 level Juventino Anderson MD Work Phone: Start: 04-19-2018 Sonal ROSE MD Start: 01-31-2017 End: 01-31-2017 RHONA Bruno NP Work Phone: Start: 01-31-2017 End: 01-31-2017 Follow Up Appt 6 months Radha Bruno NP Work Phone: Start: 07-19-2016 End: 07-19-2016 RHONA Loera MD Start: 07-19-2016 End: 07-19-2016 Follow Up Appt 6 months Conrad Mahmood Start: 01-19-2016 End: 01-19-2016 RHONA Loera MD Start: 01-19-2016 End: 01-19-2016 Follow Up Appt 6 months Conrad Mahmood Start: 10-20-2015 End: 07-19-2016 RHONA Loera MD Start: 10-20-2015 End: 07-19-2016 Follow Up Appt 3 months Conrad Mahmood Start: 10-20-2015 End: 10-21-2015 Referral to primer supervisor Janes Loera MD Start: 10-06-2015 End: 10-07-2015 Left Heart Cath Janes Loera MD Start: 09-22-2015 End: 09-23-2015 *BMP Janes Loera MD Start: 09-22-2015 End: 09-23-2015 *CBC with Differential Janes Loera MD Start: 09-22-2015 End: 09-23-2015 *Hepatic Function Panel Conrad Mahmood Start: 09-22-2015 End: 09-22-2015 RHONA Loera MD Start: 09-22-2015 End: 09-23-2015 Ecg routine ecg w/least 12 lds w/i&r Janes Loera MD Start: 09-22-2015 End: 09-22-2015 Follow Up Appt 1 month Janes Loera MD Start: 09-22-2015 End: 09-23-2015 Lipid 1996 panel - Serum or Plasma Janes Loera MD Start: 09-22-2015 End: 09-23-2015 Natriuretic peptide B [Mass/volume] in Blood Janes Loera MD Start: 09-22-2015 End: 09-28-2015 Nuclear stress test -Lexiscan Janes Loera MD Start: 06-04-2015 End: 06-04-2015 RHONA Loera MD Start: 06-04-2015 End: 06-04-2015 Follow Up Appt 6 months Conrad Mahmood Start: 04-17-2015 Angioplasty of artery FILEMON ROSE MD Start: 02-24-2015 End: 06-04-2015 RHONA Loera MD Start: 02-24-2015 End: 02-25-2015 Documentation of current medications Janes Loera MD Start: 01-21-2015 End: 01-21-2015 RHONA Loera MD Start: 01-21-2015 End: 01-22-2015 Documentation of current medications Janes Loera MD Start: 01-21-2015 End: 01-21-2015 Follow Up Appt 1 month Janes Loera MD Start: 12-31-2014 End: 09-23-2015 *Hepatic Function Panel Conrad Mahmood Start: 12-31-2014 End: 09-23-2015 Lipid 1996 panel - Serum or Plasma Janes Loera MD Start: 12-16-2014 End: 12-16-2014 *BMP Janes Loera MD Start: 12-16-2014 End: 12-16-2014 CBC W Auto Differential panel - Blood Janes Loera MD Start: 12-16-2014 End: 09-22-2015 Chest x-ray Janes Loera MD Start: 12-16-2014 End: 12-16-2014 PAYING TELLER Janes Loera MD Start: 12-16-2014 End: 12-17-2014 Documentation of current medications Janes Loera MD Start: 12-16-2014 End: 12-16-2014 Ecg routine ecg w/least 12 lds w/i&r Janes Loera MD Start: 12-16-2014 End: 12-16-2014 Follow Up Appt 6 weeks Janes Loera MD Start: 12-16-2014 End: 12-16-2014 INR in Platelet poor plasma by Coagulation assay Janes Loera MD Start: 12-16-2014 End: 09-22-2015 Left Heart Cath Janes Loera MD Start: 11-27-2014 End: 11-27-2014 RHONA Tolbert PA-C Work Phone: Start: 11-27-2014 End: 11-28-2014 Documentation of current medications Janes Loera MD Start: 11-27-2014 End: 11-27-2014 Ecg routine ecg w/least 12 lds w/i&r Rosi Tolbert PA-C Work Phone: Start: 11-27-2014 End: 11-27-2014 Follow Up Appt 6 months Rosi umanzor PA-C Work Phone: Start: 05-30-2014 End: 06-27-2014 *Hepatic Function Panel Conrad Mahmood Start: 05-30-2014 End: 05-31-2014 Documentation of current medications Janes Loera MD Start: 05-30-2014 End: 05-30-2014 Follow Up Appt 6 months Conrad Mahmood Start: 05-30-2014 End: 06-27-2014 Lipid 1996 panel - Serum or Plasma Janes Loera MD Start: 05-30-2014 End: 05-30-2014 HUY Loera MD Start: 12-20-2013 End: 12-20-2013 RHONA Loera MD Start: 12-20-2013 End: 12-20-2013 Follow Up Appt 6 months Conrad Mahmood Start: 10-15-2013 End: 06-27-2014 *Hepatic Function Panel Conrad Mahmood Start: 10-15-2013 End: 06-27-2014 Lipid 1996 panel - Serum or Plasma Janes Loera MD Start: 09-27-2013 End: 09-27-2013 RHONA Loera MD Start: 09-27-2013 End: 09-27-2013 Follow Up Appt 3 months Conrad Mahmood Start: 09-24-2013 End: 11-27-2014 Vascular Surgery Janes Loera MD Start: 08-30-2013 End: 11-27-2014 Nuclear stress test -adenosine Janes Loera MD Start: 07-02-2013 End: 07-02-2013 Follow Up Appt 3 months Conrad Mahmood Start: 07-02-2013 End: 07-02-2013 HUY Loera MD Start: 04-17-2013 End: 04-22-2013 *Hepatic Function Panel Conrad Mahmood Start: 04-17-2013 End: 04-22-2013 Lipid 1996 panel - Serum or Plasma Janes Loera MD Start: 12-14-2012 End: 12-14-2012 RHONA Loera MD Start: 12-14-2012 End: 12-14-2012 Follow Up Appt 6 months Conrad Mahmood Start: 07-16-2012 End: 10-15-2012 *Hepatic Function Panel Conrad Mahmood Start: 07-16-2012 End: 10-15-2012 Lipid 1996 panel - Serum or Plasma Janes Loera MD Start: 06-15-2012 End: 06-15-2012 RHONA Loera MD Start: 06-15-2012 End: 06-15-2012 Follow Up Appt 6 months Conrad Mahmood Start: 02-21-2012 End: 03-01-2012 24 hour holter monitor Janes Loera MD Start: 02-21-2012 End: 03-01-2012 Echocardiography Janes Loera MD Start: 02-21-2012 End: 02-21-2012 eRx Transmitted during this visit (Medicare only) Janes Loera MD Start: 02-21-2012 End: 02-21-2012 Follow Up Appt 3 months Conrad Mahmood Start: 02-21-2012 End: 03-01-2012 Natriuretic peptide B [Mass/volume] in Blood Janes Loera MD Start: 12-22-2011 End: 02-17-2012 *Hepatic Function Panel Conrad Mahmood Start: 12-22-2011 End: 02-17-2012 Lipid 1996 panel - Serum or Plasma Janes Loera MD Start: 06-22-2011 End: 06-22-2011 eRx Transmitted during this visit (Medicare only) Janes Loera MD Start: 06-22-2011 End: 06-22-2011 Follow Up Appt 6 months Conrad Mahmood Start: 08-27-2010 Placement of stent in coronary artery Status post cardiac stent placement Shena Stokes Start: 08-11-2006 CONVERTED SURGICAL PATHOLOGY [employer] [facility] Work Phone: Start: 08-02-2006 CONVERTED SURGICAL PATHOLOGY [employer] Work Phone: Cardiac catheterization JOSIAH ROSE MD Complete repair of r otator cuff FILEMON ROSE MD Decompression of spinal cord FILEMON ROSE MD Inguinal herniorrhaphy FILEMON ROSE MD Plan of Treatment Date Care Activity Detail Author Start: 10-05-2032 DTaP/Tdap/Td Vaccines (2 - Td or Tdap) DTaP/Tdap/Td Vaccines (2 - Td or Tdap) [facility] Start: 03-28-2023 FUV, Provider: Juventino Parker, Status: Pen, Time: 11:15 AM FUV, Provider: Juventino Parker , Status: Pen, Time: 11:15 AM [facility] Work Phone: Start: 03-28-2023 PVRWITHABI, Provider: [facility], Status: Pen, Time: 10:00 AM PVRWITHABI, Provider: [facility], Status: Pen, Time: 10:00 AM [facility] Work Phone: Start: 03-28-2023 End: 03-28-2023 Patient encounter procedure 03/28/2023 10:00 AM EST Appointment [facility] [address] [place] [address] [facility] Start: 02-10-2023 Creatinine measurement Creatinine Level [facility] Start: 02-10-2023 Potassium measurement Potassium Level [facility] Start: 12-16-2022 Influenza vaccination Influenza Vaccine (#1) [facility] Start: 10-04-2022 FUV, Provider: Juventino Parker, Status: Pen, Time: 3:00 PM FUV, Provider: Juventino Parker , Status: Pen, Time: 3:00 PM [facility] Work Phone: Start: 10-04-2022 PVRWITHABI, Provider: [facility], Status: Pen, Time: 2:00 PM PVRWITHABI, Provider: [facility], Status: Pen, Time: 2:00 PM [facility] Work Phone: Start: 09-27-2022 FUV, Provider: Juventino Parker, Status: Pen, Time: 10:30 AM FUV, Provider: Juventino Parker , Status: Pen, Time: 10:30 AM [facility] Work Phone: Start: 09-27-2022 PVRWITHABI, Provider: [facility], Status: Pen, Time: 9:00 AM [facility], Provider: [facility], Status: Pen, Time: 9:00 AM [facility] Work Phone: Start: 08-16-2022 FUV, Provider: Juventino Parker, Status: Pen, Time: 3:00 PM FUV, Provider: Juventino Parker , Status: Pen, Time: 3:00 PM [facility] Work Phone: Start: 08-16-2022 PVRWITHABI, Provider: [facility], Status: Pen, Time: 2:00 PM [facility], Provider: [facility], Status: Pen, Time: 2:00 PM [facility] Work Phone: Start: 07-26-2022 FUV, Provider: Juventino Parker, Status: Pen, Time: 2:45 PM FUV, Provider: Juventino Parker , Status: Pen, Time: 2:45 PM [facility]-Oiewgtouwu-Xkq[facility] [address] Work Phone: Start: 07-26-2022 PVRWITHABI, Provider: [facility], Status: Pen, Time: 2:00 PM PVRWITHABI, Provider: [facility], Status: Pen, Time: 2:00 PM PP-Caprdu[facility] [address] Work Phone: Start: 06-21-2022 FUV, Provider: Juventino Parker, Status: Pen, Time: 10:30 AM FUV, Provider: Juventino Parker , Status: Pen, Time: 10:30 AM [facility] Work Phone: Start: 06-21-2022 PVRWITHABI, Provider: [facility], Status: Pen, Time: 9:00 AM PVRWITHABI, Provider: [facility], Status: Pen, Time: 9:00 AM [facility] Work Phone: Start: 06-07-2022 FUV, Provider: Juventino Parker, Status: Pen, Time: 11:00 AM FUV, Provider: Juventino Parker , Status: Pen, Time: 11:00 AM [facility] Work Phone: Start: 06-07-2022 VNINSUFFBI, Provider: [facility], Status: Pen, Time: 9:00 AM VNINSUFFBI, Provider: [facility], Status: Pen, Time: 9:00 AM [facility] Work Phone: Start: 04-26-2022 NPV, Provider: Juventino Parker, Status: Pen, Time: 1:00 PM NPV, Provider: Juventino Parker , Status: Pen, Time: 1:00 PM [facility] Work Phone: Start: 04-26-2022 PVRWITHABI, Provider: [facility], Status: Pen, Time: 12:00 PM PVRWITHABI, Provider: [facility], Status: Pen, Time: 12:00 PM [facility] Work Phone: Start: 03-30-2022 COVID-19 Vaccine (3 - Pfizer series) COVID-19 Vaccine (3 - Pfizer series) [facility] Start: 03-30-2022 COVID-19 Vaccine (4 - Pfizer series) COVID-19 Vaccine (4 - Pfizer series) [facility] Start: 07-28-2021 Glaucoma screening Diabetes: Retinopathy Screening [facility] Start: 12-17-2019 Influenza vaccination INFLUENZA (#1) [facility] Start: 10-08-2018 DIABETES SCREEN DIABETES SCREEN [facility] Start: 08-03-2017 End: 08-03-2017 Appointment Appointment [facility] Work Phone: Start: 01-31-2017 End: 01-31-2017 *Hepatic Function Panel *Hepatic Function Panel [facility] Work Phone: Start: 01-31-2017 End: 01-31-2017 PAYING TELLER PAYING TELLER [facility] Work Phone: Start: 01-31-2017 End: 01-31-2017 Follow Up Appt 6 months Follow Up Appt 6 months [facility] Work Phone: Start: 01-31-2017 End: 01-31-2017 Lipid panel [AGGREGATE] *Lipid Profile CC PCP [facility] Work Phone: Start: 01-31-2017 End: 01-31-2017 Appointment Appointment [facility] Work Phone: Start: 07-19-2016 End: 07-19-2016 PAYING TELLER PAYING TELLER [facility] Work Phone: Start: 07-19-2016 End: 07-19-2016 Follow Up Appt 6 months Follow Up Appt 6 months [facility] Work Phone: Start: 03-23-2016 End: 09-25-2015 *Hepatic Function Panel *Hepatic Function Panel [facility] Work Phone: Start: 03-23-2016 End: 09-25-2015 Lipid panel [AGGREGATE] *Lipid Profile CC PCP [facility] Work Phone: Start: 02-18-2016 Pneumococcal Vaccine: 65+ Years (2 - PPSV23 or PCV20) Pneumococcal Vaccine: 65+ Years (2 - PPSV23 or PCV20) [facility] Start: 01-19-2016 End: 01-19-2016 PAYING TELLER PAYING TELLER [facility] Work Phone: Start: 01-19-2016 End: 01-19-2016 Follow Up Appt 6 months Follow Up Appt 6 months [facility] Work Phone: Start: 10-20-2015 End: 01-15-2016 Cardiac Rehab [facility] [address] [place], [address] [facility] Work Phone: Start: 10-20-2015 End: 07-19-2016 PAYING TELLER PAYING TELLER [facility] Work Phone: Start: 10-20-2015 End: 07-19-2016 Follow Up Appt 3 months Follow Up Appt 3 months [facility] Work Phone: Start: 10-06-2015 End: 10-07-2015 Left Heart Cath Left Heart Cath [facility] Work Phone: Start: 09-22-2015 End: 09-23-2015 *BMP *BMP [facility] Work Phone: Start: 09-22-2015 End: 09-23-2015 *CBC with Differential *CBC with Differential [facility] Work Phone: Start: 09-22-2015 End: 09-23-2015 *Hepatic Function Panel *Hepatic Function Panel [facility] Work Phone: Start: 09-22-2015 End: 09-23-2015 BNP *Brain Natriuretic Peptide BNP [facility] Work Phone: Start: 09-22-2015 End: 09-22-2015 PAYING TELLER PAYING TELLER [facility] Work Phone: Start: 09-22-2015 End: 09-23-2015 Ecg routine ecg w/least 12 lds w/i&r EKG (In office) [facility] Work Phone: Start: 09-22-2015 End: 09-22-2015 Follow Up Appt 1 month Follow Up Appt 1 month [facility] Work Phone: Start: 09-22-2015 End: 09-23-2015 Lipid panel [AGGREGATE] *Lipid Profile CC PCP [facility] Work Phone: Start: 09-22-2015 End: 09-22-2015 Nuclear stress test -Lexiscan Nuclear stress test -Lexiscan [facility] Work Phone: Start: 06-04-2015 End: 06-04-2015 PAYING TELLER PAYING TELLER [facility] Work Phone: Start: 06-04-2015 End: 06-04-2015 Follow Up Appt 6 months Follow Up Appt 6 months [facility] Work Phone: Start: 04-22-2015 Zoster Vaccines (2 of 3) Zoster Vaccines (2 of 3) [facility] Start: 02-24-2015 End: 06-04-2015 PAYING TELLER PAYING TELLER [facility] Work Phone: Start: 01-21-2015 End: 01-21-2015 PAYING TELLER PAYING TELLER [facility] Work Phone: Start: 01-21-2015 End: 01-21-2015 Follow Up Appt 1 month Follow Up Appt 1 month [facility] Work Phone: Start: 12-31-2014 End: 09-23-2015 *Hepatic Function Panel *Hepatic Function Panel [facility] Work Phone: Start: 12-31-2014 End: 09-23-2015 Lipid panel [AGGREGATE] *Lipid Profile CC PCP [facility] Work Phone: Start: 12-16-2014 End: 12-16-2014 *BMP *BMP [facility] Work Phone: Start: 12-16-2014 End: 12-16-2014 CBC W Auto Differential panel - Blood *CBC without Diff [facility] Work Phone: Start: 12-16-2014 End: 09-22-2015 Chest x-ray X-Ray, Chest, PA & Lateral [facility] Work Phone: Start: 12-16-2014 End: 12-16-2014 PAYING TELLER PAYING TELLER [facility] Work Phone: Start: 12-16-2014 End: 12-16-2014 Ecg routine ecg w/least 12 lds w/i&r EKG (In office) [facility] Work Phone: Start: 12-16-2014 End: 12-16-2014 Follow Up Appt 6 weeks Follow Up Appt 6 weeks [facility] Work Phone: Start: 12-16-2014 End: 12-16-2014 INR Coag RelTime (PPP) *PT/INR [facility] Work Phone: Start: 12-16-2014 End: 12-16-2014 Left Heart Cath Left Heart Cath [facility] Work Phone: Start: 11-27-2014 End: 11-27-2014 PAYING TELLER PAYING TELLER [facility] Work Phone: Start: 11-27-2014 End: 11-27-2014 Ecg routine ecg w/least 12 lds w/i&r EKG (In office) [facility] Work Phone: Start: 11-27-2014 End: 11-27-2014 Follow Up Appt 6 months Follow Up Appt 6 months [facility] Work Phone: Start: 05-30-2014 End: 06-27-2014 *Hepatic Function Panel *Hepatic Function Panel [facility] Work Phone: Start: 05-30-2014 End: 05-30-2014 Follow Up Appt 6 months Follow Up Appt 6 months [facility] Work Phone: Start: 05-30-2014 End: 06-27-2014 Lipid panel [AGGREGATE] *Lipid Profile CC PCP [facility] Work Phone: Start: 05-30-2014 End: 05-30-2014 MMM MMM [facility] Work Phone: Start: 12-20-2013 End: 12-20-2013 PAYING TELLER PAYING TELLER [facility] Work Phone: Start: 12-20-2013 End: 12-20-2013 Follow Up Appt 6 months Follow Up Appt 6 months [facility] Work Phone: Start: 10-15-2013 End: 06-27-2014 *Hepatic Function Panel *Hepatic Function Panel [facility] Work Phone: Start: 10-15-2013 End: 06-27-2014 Lipid panel [AGGREGATE] *Lipid Profile CC PCP [facility] Work Phone: Start: 09-27-2013 End: 09-27-2013 PAYING TELLER PAYING TELLER [facility] Work Phone: Start: 09-27-2013 End: 09-27-2013 Follow Up Appt 3 months Follow Up Appt 3 months [facility] Work Phone: Start: 09-24-2013 End: 11-27-2014 Vascular Surgery Vascular Surgery Filemon Rose MD, [facility] , [address], [address] [facility] Work Phone: Start: 08-30-2013 End: 11-27-2014 Nuclear stress test -adenosine Nuclear stress test -adenosine [facility] Work Phone: Start: 07-02-2013 End: 07-02-2013 Follow Up Appt 3 months Follow Up Appt 3 months [facility] Work Phone: Start: 07-02-2013 End: 07-02-2013 MMM MMM [facility] Work Phone: Start: 04-17-2013 End: 04-22-2013 *Hepatic Function Panel *Hepatic Function Panel [facility] Work Phone: Start: 04-17-2013 End: 04-22-2013 Lipid panel [AGGREGATE] *Lipid Profile CC PCP [facility] Work Phone: Start: 12-14-2012 End: 12-14-2012 PAYING TELLER PAYING TELLER [facility] Work Phone: Start: 12-14-2012 End: 12-14-2012 Follow Up Appt 6 months Follow Up Appt 6 months [facility] Work Phone: Start: 07-16-2012 End: 10-15-2012 *Hepatic Function Panel *Hepatic Function Panel [facility] Work Phone: Start: 07-16-2012 End: 10-15-2012 Lipid panel [AGGREGATE] *Lipid Profile [facility] Work Phone: Start: 06-15-2012 End: 06-15-2012 PAYING TELLER PAYING TELLER [facility] Work Phone: Start: 06-15-2012 End: 06-15-2012 Follow Up Appt 6 months Follow Up Appt 6 months [facility] Work Phone: Start: 02-21-2012 End: 02-21-2012 24 hour holter monitor 24 hour holter monitor [facility] Work Phone: Start: 02-21-2012 End: 03-01-2012 BNP *Brain Natriuretic Peptide BNP [facility] Work Phone: Start: 02-21-2012 End: 02-21-2012 Echocardiography Echocardiogram (complete) [facility] Work Phone: Start: 02-21-2012 End: 02-21-2012 Follow Up Appt 3 months Follow Up Appt 3 months [facility] Work Phone: Start: 12-22-2011 End: 02-17-2012 *Hepatic Function Panel *Hepatic Function Panel [facility] Work Phone: Start: 12-22-2011 End: 02-17-2012 Lipid panel [AGGREGATE] *Lipid Profile [facility] Work Phone: Start: 06-22-2011 End: 06-22-2011 Follow Up Appt 6 months Follow Up Appt 6 months [facility] Work Phone: Start: 08-07-1999 ADVANCE DIRECTIVE DISCUSSION ADVANCE DIRECTIVE DISCUSSION [facility] Start: 08-07-1999 PNEUMOVAX AGE 65 AND OVER WITH 5YR LOOKBACK (#1) PNEUMOVAX AGE 65 AND OVER WITH 5YR LOOKBACK (#1) [facility] Start: 1984 SHINGRIX VACCINE (1 of 2) SHINGRIX VACCINE (1 of 2) [facility] Start: 1953 Urine microalbumin profile DTAP,TDAP,TD (1 - Tdap) [facility] Start: 1953 Urine screening for protein Diabetes: Urine Protein Screening [facility] Start: 1944 Diabetic foot examination Diabetes: Foot Exam [facility] Start: 1934 Echocardiography Echocardiogram [facility] Start: 1934 Hemoglobin A1c measurement Diabetes: Hemoglobin A1C [facility] Start: 1934 Lipid panel Lipid Panel [facility] Start: 1934 Medicare Annual Wellness Visit Medicare Annual Wellness Visit (AWV) [facility] Patient Education [facility] Work Phone: Vascular US ankle br achial index (RALPH) without exercise Vascular US ankle brachial index (RALPH) without exercise Vascular Ultrasound Routine Peripheral vascular disease, unspecified (CMS/HCC) 03/28/2023 10:40 AM EST [facility] Service Area Work Phone: Immunizations Immunization Date Immunization Notes Care Provider Fa salvatoer 02-02-2022 Pfizer COVID-19 Vac Bivalent 30 MCG/0.3ML Intramuscular Suspension Iveth Linetsky PA-C Work Phone: [facility]Yxasrlimnn[facility] Work Phone: 02-01-2022 influenza virus vaccine, unspecified formulation Mei Hoover DPM Work Phone: [facility] Work Phone: 05-12-2020 SARS-CoV-2 mRNA (tozinameran) vaccine FILEMON ROSE MD [facility] 04-21-2020 SARS-CoV-2 mRNA (tozinameran) vaccine FILEMON ROSE MD [facility] 01-30-2019 influenza virus vaccine, unspecified formulation FILEMON ROSE MD [facility] 01-30-2019 influenza, seasonal, injectable Iveth Linetsky PA-C Work Phone: AH-Sxtscyjell-Naaya [facility] Work Phone: 02-05-2018 influenza, seasonal, injectable Iveth Linetsky PA-C Work Phone: VV-Zpvfihsfsy-Ipsfz [facility] Work Phone: 02-23-2017 influenza, injectabl e, quadrivalent, contains preservative Iveth Linetsky PA-C Work Phone: IR-Ybpalpqrnh-Fjsxp [facility] Work Phone: 12-24-2015 influenza, seasonal, injectable Iveth Linetsky PA-C Work Phone: DW-Fxjqdugihp-Elyjd [facility] Work Phone: 12-24-2015 pneumococcal conjuga te vaccine, 13 valent FILEMON ROSE MD [facility] 02-25-2015 zoster vaccine, live FILEMON TELLES MD [facility] 01-23-2015 influenza, seasonal, injectable Iveth Linetsky PA-C Work Phone: ZZ-Xarnddnpff-Hlgqb [facility] Work Phone: 02-20-2014 influenza, seasonal, injectable Iveth Linetsky PA-C Work Phone: BW-Ievzmkxyue-Mimzg [facility] Work Phone: 01-25-2013 influenza, seasonal, injectable Iveth Linetsky PA-C Work Phone: SU-Vnllsrcpxc-Xlfag [facility] Work Phone: 02-09-2012 influenza, seasonal, injectable Iveth Linetsky PA-C Work Phone: RR-Zrzrbopcbj-Axfev [facility] Work Phone: 02-09-2012 TD(adult) unspecifie d formulation Iveth Linetsky PA-C Work Phone: KY-Fxdknuoyow-Vmjkp [facility] Work Phone: 01-22-2010 influenza virus vaccine, whole virus Iveth Linetsky PA-C Work Phone: TP-Xblnhpctxt-Xuocx [facility] Work Phone: 04-15-2009 novel byxillvcl-P1F8-30, preservative-free, injectable Iveth Linetsky PA-C Work Phone: FF-Gipzcvpunu-Kdzec [facility] Work Phone: 02-06-2009 influenza virus vaccine, whole virus Iveth Linetsky PA-C Work Phone: OK-Hvfzogcbcf-Zscea [facility] Work Phone: 02-15-2008 influenza virus vaccine, whole virus Iveth Linetsky PA-C Work Phone: HU-Ljyeodqyxy-Sxois [facility] Work Phone: 02-13-2007 influenza virus vaccine, whole virus Iveth Hale PA-C Work Phone: HK-Yoyadaghru-LseccCamelia PEÑA Work Phone: Payers Date Payer Category Payer Unknown 2022 Unknown [id number] 2002 Private Health Insurance [facility] INDEMNITY [id number] 2002-Present Indemnity [id number] 1999 Medicare MEDICARE MEDICAR E B [id number] 1999-Present [place] Medicare [id number] 1999 Medicare [id number] 1999 Medicare MEDICARE MEDICAR E PART A AND B [id number] 1999-Present [address] [place] [address] [id number] 1934 Unknown [id number] 1934 Unknown [id number] 1934 Unknown [id number] 1934 Unknown [id number] 1934 Unknown [id number] 1934 Unknown [id number] 1934 Unknown [id number] 1934 Unknown [id number] 1934 Unknown [id number] 1934 Unknown [id number] 1934 Unknown [id number] Social History Date Type Detail Facility Start: 07-10-2006 End: 10-17-2018 Tobacco smoking status MIIS Never smoker [facility] Start: 07-10-2006 Alcohol intake Current drinke r of alcohol (finding) [facility] Start: 1934 Sex Assigned At Not on file [facility] Sex Assigned At Sex [facility] Wine Consumption (1 Glasses/Day) Wine Consumption (1 Glasses/Day) AO-Tkttazssmc-NOU Jyoti Bertrand 1500 DO Work Phone: Tobacco smoking stat [facility] Tobacco smoking consumption unknown [facility] Work Phone: Gender identity Not on file [facility] Work Phone: Start: 03-18-2023 End: 03-28-2023 Exposure to SARS-CoV-2 (event) Not sure [facility] NEGATED: Highlighted row - - AH-Tnnmoxu-Uhhibkq 2100 Work Phone: Functional Status Date Assessment Result Facility 09-02-2021 Functional Status [facility] 07-22-2021 Functional Status [facility] 07-22-2021 Functional Status [facility] NEGATED: Highlighted row Functional performance Functional status health issues are not documented Disease DK-Mrtqnfj-Kcwhmbj 2100 Work Phone: Mental Status Date Assessment Result Facility 09-02-2021 [facility]: Highlighted row Cognitive function [Interpretation] Cognitive status health issues are not documented Disease [id number] Work Phone: Clinical Notes 07-22-2021 to 07-14-2022 Op Note - Mei Hoover MD - 07/14/2022 9:28 AM EDTOp Note - Mei Hoover MD - 07/14/2022 9:28 AM EDTMei Hoover MD - 07/14/2022 8:25 AM EDT Note Date & Type Note Facility 07-14-2022 Note PROCEDURE DETAILS Preoperative Diagnosis: left leg ulcer with subcutaneous tissue (L97.922) Left 2nd toe ulcer with bone exposed (L97.524) Postoperative Diagnosis: left leg ulcer with subcutaneous tissue (L97.922) Left 2nd toe ulcer with bone exposed (L97.524) Surgeon: Mei Hoover Resident/Fellow/Other Aircraft Shipping Checker: None of these were associated with this case Procedure: 1. LEFT FOOT DEBRIDEMENT ULCER W/BONIE, BILAT DEBRIDEMENT W/SUBCUTANEOUS APPLICATION OF ADVANCED WOUND PRODUCT Anesthesia: No anesthesiologist associated with this case Estimated Blood Loss: <40 mL Findings: hemostasis controlled no purulence Specimens(s) Collected: no, Complications: none Implants: stravix 3x6 cm Tourniquet Times: none Additional Details: Operative Report: Indications: This pleasant male with significant past medical history of coronary artery disease, peripheral vascular disease with recent intervention, diabetes, anemia, malnutrition, hyperlipidemia, disc degeneration, osteoarthritis, spinal stenosis with radiculopathy and spondylolisthesis, obstructive sleep apnea, history of myocardial infarction, history of cerebral ischemia, congestive heart failure, venous insufficiency, atrial fibrillation, hypertension, dementia without behavioral disturbance, depression, prostate neoplasm, iron deficiency anemia continues to have lower extremity nonhealing wounds to bilateral lower extremities. Upon presentation today his right lower extremity leg has healed with full epithelialization. He still continues to have nonhealing left anterior leg ulcer and left second toe ulcer with exposed bone. There are no local signs of infection. He is currently residing at the [facility]. He had recent vascular intervention with Dr. Squires that has been successful. He continues on all of his anticoagulation medication throughout this procedure. There is no purulence or necrosis today. He has had prior imaging and diagnostic work-up. He has not demonstrated full healing with traditional wound care including serial debridement, offloading and wound care and nutrition supplement. Therefore I recommend advanced wound product application with operating room debridement. The preoperative indications, benefits, risks, complications, and anticipated healing time and management were reviewed in detail with the patient. Preoperative optimization, clearance, and all diagnostic data were reviewed in detail. The patient elects to proceed forward at this time. The patient understands risks and complications include but are not limited to the following: infection, delayed or nonhealing, need for further surgery, blood clot, allergic reaction, chronic pain syndrome, use of long-term assisted device, swelling, scar, over or under correction, nerve injury with resultant pain or numbness, recurrence, postoperative arthritis, loss of function, loss of limb, or loss of life. The surgical consent and limb will need to be signed. I answered all the patient's questions to their satisfaction. This is a limb salvage surgery and is now they are considered elective or emergent. The patient understands he is at risk for further limb loss, delayed healing, infection and even amputation. Procedure in detail: The patient was transported to the operating room via cart and placed on the operating room table in the supine position. Final verification of the patient, surgery, and limb designation was performed via the timeout procedure. I initiated planned anesthesia; local anesthesia only. 6 cc of 1% lidocaine plain and 0.5% Marcaine plain mixed to a 1:1 ratio was applied subdermal to the left leg ulcer and also with a left second toe digital block. No tourniquet was utilized. The surgical limb was prepped and draped in the usual aseptic manner. Surgery began in the following manner: Attention was first directed to the left leg. Subcutaneous excisional debridement was performed with a 15 blade scalpel. This was performed to a excisionally remove devitalized subcutaneous tissue, biofilm, fibrous tissue, and slough. Pressure was applied to maintain hemostasis. Saline irrigation was performed. No deep tissue, necrosis or purulence was identified. Pre and postdebridement measurements were obtained. The predebridement measurement was 1 x 1.2 x 0.1 cm and postdebridement 1.2 x 1.3 x 0.1 cm. Stravix advanced wound healing product was applied to the site and also the next described site and was sutured in place with 3-0 nylon. Further a wound veil was applied including Adaptic and was sutured in place with 3-0 nylon as well. 100% of the product was utilized and this was applied according to standard protocol. Next attention was directed to the dorsal left second toe. Subcutaneous and bone excisional debridement was performed with a 15 blade scalpel. and ronguer. This was performed (more content not included)... [facility] 07-14-2022 Note History & Physical R eviewed: I have reviewed the History and Physical dated: 30-Jun-2022 History and Physical reviewed and relevant findings noted. Patient examined to review pertinent physical findings.: No significant changes Home Medications Reviewed: no changes noted Allergies Reviewed: no changes noted ERAS (Enhanced Recovery After Surgery): ERAS Patient: no Consent: COVID-19 Consent: COVID-19 Risk ConsentSurgeon has reviewed pang risks related to the risk of may COVID-19 and if they contract COVID-19 what the risks are. Electronic Signatures: Mei Hoover) (Signed 14-Jul-2022 08:26) Authored: History & Physical Reviewed, ERAS, Consent, Note Completion Last Updated: 14-Jul-2022 08:26 by Mei Hoover) [facility] 07-14-2022 Miscellaneous Notes PROCEDURE DETAILS Preoperative Diagnosis: left leg ulcer with subcutaneous tissue (L97.922) Left 2nd toe ulcer with bone exposed (L97.524) Postoperative Diagnosis: left leg ulcer with subcutaneous tissue (L97.922) Left 2nd toe ulcer with bone exposed (L97.524) Surgeon: Mei Hoover Resident/Fellow/Other Aircraft Shipping Checker: None of these were associated with this case Procedure: 1. LEFT FOOT DEBRIDEMENT ULCER W/BONIE, BILAT DEBRIDEMENT W/SUBCUTANEOUS & APPLICATION OF ADVANCED WOUND PRODUCT Anesthesia: No anesthesiologist associated with this case Estimated Blood Loss: <40 mL Findings: hemostasis controlled no purulence Specimens(s) Collected: no, Complications: none Implants: stravix 3x6 cm Tourniquet Times: none Additional Details: Operative Report: Indications: This pleasant male with significant past medical history of coronary artery disease, peripheral vascular disease with recent intervention, diabetes, anemia, malnutrition, hyperlipidemia, disc degeneration, osteoarthritis, spinal stenosis with radiculopathy and spondylolisthesis, obstructive sleep apnea, history of myocardial infarction, history of cerebral ischemia, congestive heart failure, venous insufficiency, atrial fibrillation, hypertension, dementia without behavioral disturbance, depression, prostate neoplasm, iron deficiency anemia continues to have lower extremity nonhealing wounds to bilateral lower extremities. Upon presentation today his right lower extremity leg has healed with full epithelialization. He still continues to have nonhealing left anterior leg ulcer and left second toe ulcer with exposed bone. There are no local signs of infection. He is currently residing at the [facility] in [place]. He had recent vascular intervention with Dr. Squires that has been successful. He continues on all of his anticoagulation medication throughout this procedure. There is no purulence or necrosis today. He has had prior imaging and diagnostic work-up. He has not demonstrated full healing with traditional wound care including serial debridement, offloading and wound care and nutrition supplement. Therefore I recommend advanced wound product application with operating room debridement. The preoperative indications, benefits, risks, complications, and anticipated healing time and management were reviewed in detail with the patient. Preoperative optimization, clearance, and all diagnostic data were reviewed in detail. The patient elects to proceed forward at this time. The patient understands risks and complications include but are not limited to the following: infection, delayed or nonhealing, need for further surgery, blood clot, allergic reaction, chronic pain syndrome, use of long-term assisted device, swelling, scar, over or under correction, nerve injury with resultant pain or numbness, recurrence, postoperative arthritis, loss of function, loss of limb, or loss of life. The surgical consent and limb will need to be signed. I answered all the patient's questions to their satisfaction. This is a limb salvage surgery and is now they are considered elective or emergent. The patient understands he is at risk for further limb loss, delayed healing, infection and even amputation. Procedure in detail: The patient was transported to the operating room via cart and placed on the operating room table in the supine position. Final verification of the patient, surgery, and limb designation was performed via the timeout procedure. I initiated planned anesthesia; local anesthesia only. 6 cc of 1% lidocaine plain and 0.5% Marcaine plain mixed to a 1:1 ratio was applied subdermal to the left leg ulcer and also with a left second toe digital block. No tourniquet was utilized. The surgical limb was prepped and draped in the usual aseptic manner. Surgery began in the following manner: Attention was first directed to the left leg. Subcutaneous excisional debridement was performed with a 15 blade scalpel. This was performed to a excisionally remove devitalized subcutaneous tissue, biofilm, fibrous tissue, and slough. Pressure was applied to maintain hemostasis. Saline irrigation was performed. No deep tissue, necrosis or purulence was identified. Pre and postdebridement measurements were obtained. The predebridement measurement was 1 x 1.2 x 0.1 cm and postdebridement 1.2 x 1.3 x 0.1 cm. Stravix advanced wound healing product was applied to the site and also the next described site and was sutured in place with 3-0 nylon. Further a wound veil was applied including Adaptic and was sutured in place with 3-0 nylon as well. 100% of the product was utilized and this was applied according to standard protocol. Next attention was directed to the dorsal left second toe. Subcutaneous and bone excisional debridement was performed with a 15 blade scalpel. and ronguer. This was performed to a excisionally remove devitalized subcutaneous and bone tissue, biofilm, fibrous tissue, and slough. Pressure was applied to maintain hemostasis. Saline irrigation was performed. Bone was firm without discoloration. No deep tissue, necrosis or purulence was identified. Pre and postdebridement measurements were obtained. The predebridement measurement was 1 x 1.3 x 0.2 cm and postdebridement 1.7 x 1.8 x 0.2 cm. Stravix advanced wound healing product was applied to the site and also the next described site and was sutured in place with 3-0 nylon. Further a wound veil was applied including Adaptic and was sutured in place with 3-0 nylon as well. 100% of the product was utilized and this was applied according to standard protocol. Brisk capillary refill time was noted to all digits and hemostasis was controlled. Dressing was applied including overlying 4 x 4 gauze, Lloyd, abdominal pad, and Saurabh wrap applied in a gentle manner. After procedure: The patient tolerated the procedure and anesthesia well. The patient was transported to the recovery area with vital signs stable and vascular status intact to the surgical limb. To elevate for pain and inflammation management. Clarified weightbearing status. Wear surgical shoe and limit weightbearing activity to the left lower extremity. It is okay to place most of the weight on the heel. She use assistive device only if needed for balance. Keep dressing clean, dry, and intact until follow-up next week at [facility] with Dr. Hoover. The patient will further be transferred upon continued stability back to the [facility]. Electronic orders placed. Continue nutritional supplementation to optimize healing. To continue to follow-up with vascular specialist and to continue on anticoagulation medication. Mei Hoover DPM FACFAS [facility] Attestation: Note Completion: Attending Attestation I performed the procedure without a resident Electronic Signatures: Mei Hoover) (Signed 15-Jul-2022 09:18) Authored: Post-Operative Note, Chart Review, Note Completion Last Updated: 15-Jul-2022 09:18 by Mei Hoover) documented in this encounter [facility] Work Phone: 07-14-2022 Note Formatting of this n ote is different from the original. PROCEDURE DETAILS Preoperative Diagnosis: left leg ulcer with subcutaneous tissue (L97.922) Left 2nd toe ulcer with bone exposed (L97.524) Postoperative Diagnosis: left leg ulcer with subcutaneous tissue (L97.922) Left 2nd toe ulcer with bone exposed (L97.524) Surgeon: Mei Hoover Resident/Fellow/Other Aircraft Shipping Checker: None of these were associated with this case Procedure: 1. LEFT FOOT DEBRIDEMENT ULCER W/BONIE, BILAT DEBRIDEMENT W/SUBCUTANEOUS & APPLICATION OF ADVANCED WOUND PRODUCT Anesthesia: No anesthesiologist associated with this case Estimated Blood Loss: <40 mL Findings: hemostasis controlled no purulence Specimens(s) Collected: no, Complications: none Implants: stravix 3x6 cm Tourniquet Times: none Additional Details: Operative Report: Indications: This pleasant male with significant past medical history of coronary artery disease, peripheral vascular disease with recent intervention, diabetes, anemia, malnutrition, hyperlipidemia, disc degeneration, osteoarthritis, spinal stenosis with radiculopathy and spondylolisthesis, obstructive sleep apnea, history of myocardial infarction, history of cerebral ischemia, congestive heart failure, venous insufficiency, atrial fibrillation, hypertension, dementia without behavioral disturbance, depression, prostate neoplasm, iron deficiency anemia continues to have lower extremity nonhealing wounds to bilateral lower extremities. Upon presentation today his right lower extremity leg has healed with full epithelialization. He still continues to have nonhealing left anterior leg ulcer and left second toe ulcer with exposed bone. There are no local signs of infection. He is currently residing at the [facility]. He had recent vascular intervention with Dr. Squires that has been successful. He continues on all of his anticoagulation medication throughout this procedure. There is no purulence or necrosis today. He has had prior imaging and diagnostic work-up. He has not demonstrated full healing with traditional wound care including serial debridement, offloading and wound care and nutrition supplement. Therefore I recommend advanced wound product application with operating room debridement. The preoperative indications, benefits, risks, complications, and anticipated healing time and management were reviewed in detail with the patient. Preoperative optimization, clearance, and all diagnostic data were reviewed in detail. The patient elects to proceed forward at this time. The patient understands risks and complications include but are not limited to the following: infection, delayed or nonhealing, need for further surgery, blood clot, allergic reaction, chronic pain syndrome, use of long-term assisted device, swelling, scar, over or under correction, nerve injury with resultant pain or numbness, recurrence, postoperative arthritis, loss of function, loss of limb, or loss of life. The surgical consent and limb will need to be signed. I answered all the patient's questions to their satisfaction. This is a limb salvage surgery and is now they are considered elective or emergent. The patient understands he is at risk for further limb loss, delayed healing, infection and even amputation. Procedure in detail: The patient was transported to the operating room via cart and placed on the operating room table in the supine position. Final verification of the patient, surgery, and limb designation was performed via the timeout procedure. I initiated planned anesthesia; local anesthesia only. 6 cc of 1% lidocaine plain and 0.5% Marcaine plain mixed to a 1:1 ratio was applied subdermal to the left leg ulcer and also with a left second toe digital block. No tourniquet was utilized. The surgical limb was prepped and draped in the usual aseptic manner. Surgery began in the following manner: Attention was first directed to the left leg. Subcutaneous excisional debridement was performed with a 15 blade scalpel. This was performed to a excisionally remove devitalized subcutaneous tissue, biofilm, fibrous tissue, and slough. Pressure was applied to maintain hemostasis. Saline irrigation was performed. No deep tissue, necrosis or purulence was identified. Pre and postdebridement measurements were obtained. The predebridement measurement was 1 x 1.2 x 0.1 cm and postdebridement 1.2 x 1.3 x 0.1 cm. Stravix advanced wound healing product was applied to the site and also the next described site and was sutured in place with 3-0 nylon. Further a wound veil was applied including Adaptic and was sutured in place with 3-0 nylon as well. 100% of the product was utilized and this was applied according to standard protocol. Next attention was directed to the dorsal left second toe. Subcutaneous and bone excisional debridement was performed with a 15 blade scalpel. and ronguer. This was performed to a excisionally remove devitalized subcutaneous and bone tissue, biofilm, fibrous tissue, and slough. Pressure was applied to maintain hemostasis. Saline irrigation was performed. Bone was firm without discoloration. No deep tissue, necrosis or purulence was identified. Pre and postdebridement measurements were obtained. The predebridement measurement was 1 x 1.3 x 0.2 cm and postdebridement 1.7 x 1.8 x 0.2 cm. Stravix advanced wound healing product was applied to the site and also the next described site and was sutured in place with 3-0 nylon. Further a wound veil was applied including Adaptic and was sutured in place with 3-0 nylon as well. 100% of the product was utilized and this was applied according to standard protocol. Brisk capillary refill time was noted to all digits and hemostasis was controlled. Dressing was applied including overlying 4 x 4 gauze, Lloyd, abdominal pad, and Saurabh wrap applied in a gentle manner. After procedure: The patient tolerated the procedure and anesthesia well. The patient was transported to the recovery area with vital signs stable and vascular status intact to the surgical limb. To elevate for pain and inflammation management. Clarified weightbearing status. Wear surgical shoe and limit weightbearing activity to the left lower extremity. It is okay to place most of the weight on the heel. She use assistive device only if needed for balance. Keep dressing clean, dry, and intact until follow-up next week at [facility] with Dr. Hoover. The patient will further be transferred upon continued stability back to the [facility]. Electronic orders placed. Continue nutritional supplementation to optimize healing. To continue to follow-up with vascular specialist and to continue on anticoagulation medication. MIGUEL Ya [facility] Attestation: Note Completion: Attending Attestation I performed the procedure without a resident Electronic Signatures: Mei Hoover) (Signed 15-Jul-2022 09:18) Authored: Post-Operative Note, Chart Review, Note Completion Last Updated: 15-Jul-2022 09:18 by Mei Hoover) [facility] Work Phone: 07-14-2022 History and physical note History & Physical Reviewed: I have reviewed the History and Physical dated: 30-Jun-2022 History and Physical reviewed and relevant findings noted. Patient examined to review pertinent physical findings.: No significant changes Home Medications Reviewed: no changes noted Allergies Reviewed: no changes noted ERAS (Enhanced Recovery After Surgery): ERAS Patient: no Consent: COVID-19 Consent: COVID-19 Risk Consent Surgeon has reviewed pang risks related to the risk of may COVID-19 and if they contract COVID-19 what the risks are. Electronic Signatures: Mei Hoover) (Signed 14-Jul-2022 08:26) Authored: History & Physical Reviewed, ERAS, Consent, Note Completion Last Updated: 14-Jul-2022 08:26 by Mei Hoover) [facility] Work Phone: 07-14-2022 History and physical note History & Physical Reviewed: I have reviewed the History and Physical dated: 30-Jun-2022 History and Physical reviewed and relevant findings noted. Patient examined to review pertinent physical findings.: No significant changes Home Medications Reviewed: no changes noted Allergies Reviewed: no changes noted ERAS (Enhanced Recovery After Surgery): ERAS Patient: no Consent: COVID-19 Consent: COVID-19 Risk Consent Surgeon has reviewed pang risks related to the risk of may COVID-19 and if they contract COVID-19 what the risks are. Electronic Signatures: Mei Hoover) (Signed 14-Jul-2022 08:26) Authored: History & Physical Reviewed, ERAS, Consent, Note Completion Last Updated: 14-Jul-2022 08:26 by Mei Hoover) documented in this encounter [facility] Work Phone: 03-22-2022 Note Clinical Event: Clinical Event Note: TopicEndovascular Post-Procedure Note Details Fei Oleary is an 86 yo male, a resident of [facility], with PMH of A-fib (not on AC due to rectal bleed), CAD, s/p multiple PCIs to RCA for ISR (2004,2009, 2013 and 2015), HTN, HL, CHF, venous insufficiency, mild dementia, H/o prostate CA, Urinary incontinence, SCOTT, GERD, Rectal prolapse, chronic back pain, OA, carpal tunnel syndrome, polyneuropathy, ZEYNEP, PAD, with a history of RLE stents in 2013, and 2 angioplasties on the Lt with Dr Filemon Botello: 07/22/21 POCKET CUTTER/DCB of L SFA/pop, 09/02/21 POCKET CUTTER/DCB of Lt PT/TPT/pop (images in PACS), who is self referred to us for consideration for further treatment in the setting of nonhealing painful Lt 2nd toe ulcer and Lt moser ulcer. Pt states he's had the Lt 2nd toe sore for years, that has been worsening in the last 4 months, with severe rest pain at night, keeping him from sleeping, Lt moser ulcer for 3-4 months. He is being managed by the [facility] Dr Jad Hall/Cody Collier CNP. He is not active, mostly sitting in a wheelchair, only walking with Rollator during PT sessions twice a week.. RALPH/TBI done on 02/10/22 shows impaired blood flow to the LLE: 0.52/0.36, Rt 0.94/0.67. Given the presentation, consistent with RCV, he was scheduled for an urgent angioplasty to improve blood flow and promote wound healing, with Dr Ricketts on 02/22. Procedure was cancelled due to pt positive for symptomatic COVID rescheduled for 03/08/22 but pt/family called to cancel. He was rescheduled for the procedure today per pt/family request. Today pt underwent POCKET CUTTER of Lt. EIA, PT and POCKET CUTTER/DCB/stenting of Lt. SFA, POP, TPT. Access: via right (6Fr sheath) and left (7Fr sheath) groin with angioseal; retrograde DP access with TR band. Plan - 2 hrs bedrest - continue with Plavix and Atorvastatin - Start ASA Rx sent to local pharmacy - 1 month f/u with RALPH/TBI Electronic Signatures: Aurora Smiley (ASSISTANT MANAGER-BRAKE LINING FINISHER) (Signed 22-Mar-2022 15:35) Authored: Clinical Event Note Last Updated: 22-Mar-2022 15:35 by Aurora Smiley (ASSISTANT MANAGER-BRAKE LINING FINISHER) [facility] 03-22-2022 Note Clinical Note - Phar pamela v2: Education: Document TopicMedication Education [id number]: No, patient is SNF Sources used to confirm home medication list: Patient interview, [facility] ([facility]), Chart review (CAMMIE Hitchcock, Cardio Note 02/10). Aspirin: not prescribed Statin: atorvastatin 20 mg P2Y12 inhibitor: clopidogrel 75 mg daily Anticoagulant: not prescribed Comments/other: Medication history was obtained through fax medication list sent by [facility]. Patient has dementia. Spoke to nurse who said all medication last doses were taken last night. Patient did not take any medication doses this morning. Acetaminophen and omeprazole have been held 2 days. Medication reconciliation complete Please reach out via Ariad[employer]EXTo for questions Lali Vázquez, PharmD, [facility] PGY1 Resident [facility] Is This Intervention Medication Reconciliation Relatedyes Time [id number] - 60 minutes Additional NotesDrug Name: atorvastatin 20 mg oral tablet Instructions: 1 tab(s) orally once a day (at bedtime) Drug Name: bisacodyl 10 mg rectal suppository Instructions: 1 suppository(ies) rectal once a day, As Needed Drug Name: carBAMazepine 100 mg oral tablet, extended release Instructions: 1 tab(s) orally 2 times a day at morning and bedtime Drug Name: diclofenac 1% topical gel Instructions: Apply topically to knees and lower back as needed for pain at bedtime Drug Name: donepezil 10 mg oral tablet Instructions: 1 tab(s) orally once a day (in the morning) Drug Name: DULoxetine 30 mg oral delayed release capsule Instructions: 1 cap(s) orally once a day (in the morning) Drug Name: mineral oil rectal enema Instructions: 133 milliliter(s) rectal once, As Needed Drug Name: isosorbide mononitrate 30 mg oral tablet, extended release Instructions: 1 tab(s) orally once a day (in the morning) Drug Name: furosemide 40 mg oral tablet Instructions: 1 tab(s) orally once a day Drug Name: lisinopril 5 mg oral tablet Instructions: 1 tab(s) orally once a day. Hold if SBP <100, diastolic <60 mmHg Drug Name: Metoprolol Succinate ER 100 mg oral tablet, extended release Instructions: 1 tab(s) orally once a day Drug Name: Milk of Magnesia 8% oral suspension Instructions: 30 milliliter(s) orally once a day As Needed. Only administer if no BM in 3 consecutive days. Drug Name: polyethylene glycol 3350 oral powder for reconstitution Instructions: Give 1 packet orally every 24 hours as needed for constipation Drug Name: mirtazapine 15 mg oral tablet Instructions: 1 tab(s) orally once a day (at bedtime) Drug Name: Multiple Vitamins oral tablet Instructions: 1 tab(s) orally once a day in the morning Drug Name: omeprazole 20 mg oral delayed release capsule Instructions: 1 cap(s) orally once a day Drug Name: clopidogrel 75 mg oral tablet Instructions: 1 tab(s) orally once a day Drug Name: potassium chloride 10 mEq oral tablet, extended release Instructions: 2 tab(s) orally 2 times a day Drug Name: guaiFENesin 100 mg/5 mL oral liquid Instructions: 10 milliliter(s) orally every 6 hours, As Needed for cough Drug Name: acetaminophen 500 mg oral tablet Instructions: 2 tab(s) orally 3 times a day, As Needed Drug Name: vitamin E oral capsule Instructions: 1 tab(s) orally once daily in the morning Allergy: Allergies Summary Allergy Allergen: Soma Type: Drug Reaction: Unknown Electronic Signatures: Gisell Callaway ([facility]) (Signed 22-Mar-2022 10:42) Co-Signer: Dmitri Allergy Lali Vázquez ([facility]) (Signed 22-Mar-2022 09:58) Authored: Education, Allergy Last Updated: 22-Mar-2022 10:42 by Gisell Callaway ([facility]) [facility] 03-22-2022 Note History of Present I llness: History Present Illness: Reason for surgery: LLE revascularization HPI: 86 yo man with PMH of A-fib (not on AC due to rectal bleed), CAD, s/p multiple PCIs to RCA for ISR, HTN, HL, CHF, venous insufficiency, mild dementia, H/o prostate CA, Urinary incontinence, SCOTT, GERD, Rectal prolapse, chronic back pain, OA, carpal tunnel syndrome, polyneuropathy, ZEYNEP, PAD, with a history of RLE stents in 2013, and 2 angioplasties on the Lt with Dr Filemon Botello: 07/22/21 POCKET CUTTER/DCB of L SFA/pop, 09/02/21 POCKET CUTTER/DCB of Lt PT/TPT/pop (images in PACS), who is self referred to us for consideration for further treatment in the setting of nonhealing painful Lt 2nd toe ulcer and Lt moser ulcer. PMHx: HTN CAD PAD Venous insufficiency PSHx: POCKET CUTTER of bilateral LE PCI Home Medication Review: Home Medications Reviewed: yes Impression/Procedure: Impression and Planned Procedure: LLE arterial endovascular intervention ERAS (Enhanced Recovery After Surgery): ERAS Patient: no Physical Exam by System: Constitutional: NAD Eyes: EOMI Respiratory/Thorax: Equal BS bilaterally Cardiovascular: s1+S2+0 Gastrointestinal: soft, lax and non tender Extremities: see skin Neurological: non focal Psychological: normal affect Skin: left leg moser ulcer, left second toe ulcer Airway/Sedation Assessment: Emotional Statuscalm Neurologicalert & oriented x 3 Respiratoryclear to auscultation Mouth Opening OKyes Neck Flexibility OKyes Loose Teethno Oropharyngeal ClassificationClass II ASA PS ClassificationASA III Sedation Planmoderate sedation Consent: COVID-19 Consent: COVID-19 Risk ConsentSurgeon has reviewed pang risks related to the risk of may COVID-19 and if they contract COVID-19 what the risks are. Attestation: Note Completion: I am a: Resident/Fellow Attending AttestationI saw and evaluated the patient. I personally obtained the pang and critical portions of the history and physical exam or was physically present for pang and critical portions performed by the resident/fellow. I reviewed the resident/fellows documentation and discussed the patient with the resident/fellow. I agree with the resident/fellows medical decision making as documented in the note. I personally evaluated the patient [id number] Electronic Signatures: Benja Ricketts) (Signed 24-Mar-2022 23:00) Authored: KARYN, Note Completion Co-Signer: History of Present Illness, Home Medication Review, Impression/Procedure, Physical Exam, Consent Fortino Ng (Resident)) (Signed 22-Mar-2022 08:04) Authored: History of Present Illness, Home Medication Review, Impression/Procedure, Physical Exam, Consent Last Updated: 24-Mar-2022 23:00 by Benja Ricketts) [facility] 09-02-2021 Hospital Discharge instructions Patient Education 09/02/2021 14:05:12 3- Arteriogram (CUSTOM) HOME GOING INSTRUCTIONS AFTER YOUR ARTERIOGRAM This handout has been developed to provide you with written guidelines to supplement the verbal instructions your doctor has reviewed with you. Please refer to these guidelines once you are home and recovering from your arteriogram. In addition it is very important that you follow any additional instructions your doctor has provided. Care of Your Arteriogram Site: You will go home with a dressing over your arteriogram site. You may remove the dressing in 48 hours and leave the site open to air Some degree of bruising and tenderness is normal around the arteriogram site. It will take a while for any bruising to completely resolve. Keep your site clean and dry. You may clean the area with alcohol for the first few days. You need to report the following to your physician: Any draining or oozing from the site Any swelling at the site Any increased pain or tenderness at the site Any numbness in your leg where the procedure was done A temperature above 100 degrees. IMPORTANT! If there is any large amount of bleeding, you or someone else needs to apply direct pressure to the site. (Just like the nurse did in the radiology lab after your procedure) It is very important that you hold constant pressure. (Do not release the pressure to check if the bleeding has stopped.) You then need to call 911 and be transported to the nearest emergency room. Other Important after Procedure Care: Do not drive for the first 24 hours from the time of your procedure unless instructed otherwise by your physician. Do not do any heavy lifting or straining for 48 hours after you are discharged to allow your procedure site time to fully heal. Drink plenty of fluids for the next 48 hours to help your kidneys flush the dye out of your system. Please have someone stay with you the first night home from your arteriogram. Do not smoke for the next 24 hours to avoid the possibility of a blood clot in the artery that could block blood supply to your forearm, hand or foot. No laxatives or enemas for the next 24 hours. Medications: Take all your medications as ordered and do not discontinue them unless told to do so. Only take the medications written on your discharge instruction sheet. Your doctor may change your medications based on the results of your Arteriogram. It is very important that if you have any questions about any of your medications after you go home that you call your physician. Follow Up Care: Please keep all follow up appointments with your doctor. Please notify us at if you require any care as a result of your procedure today. (Even if you are seen by a doctor and released without further care.) 09/02/2021 11:58:01 Moderate Conscious Sedation, Adult, Care After Moderate Conscious Sedation, Adult, Care After These instructions provide you with information about caring for yourself after your procedure. Your health care provider may also give you more specific instructions. Your treatment has been planned according to current medical practices, but problems sometimes occur. Call your health care provider if you have any problems or questions after your procedure. What can I expect after the procedure? After your procedure, it is common: To feel sleepy for several hours. To feel clumsy and have poor balance for several hours. To have poor judgment for several hours. To vomit if you eat too soon. Follow these instructions at home: For at least 24 hours after the procedure: Do not: ?Participate in activities where you could fall or become injured. ?Drive. ?Use heavy machinery. ?Drink alcohol. ?Take sleeping pills or medicines that cause drowsiness. ?Make important decisions or sign legal documents. ?Take care of children on your own. Rest. Eating and drinking Follow the diet recommended by your health care provider. If you vomit: ?Drink water, juice, or soup when you can drink without vomiting. ?Make sure you have little or no nausea before eating solid foods. General instructions Have a responsible adult stay with you until you are awake and alert. Take [id number]-zydrhvk and prescription medicines only as told by your health care provider. If you smoke, do not smoke without supervision. Keep all follow-up visits as told by your health care provider. This is important. Contact a health care provider if: You keep feeling nauseous or you keep vomiting. You feel light-headed. You develop a rash. You have a fever. Get help right away if: You have trouble breathing. This information is not intended to replace advice given to you by your health care provider. Make sure you discuss any questions you have with your health care provider. Document Released: 01/22/2014 Document Revised: 03/16/2018 Document Reviewed: 07/23/2016 [employer] Patient Education 2020 [employer]. Follow Up Care 08/24/2021 11:55:08 With:FILEMON ROSE MD, [facility], Surgery, Vascular Surgeons Address: [facility] [address] [place] [phone] When: Unknown Comments:Follow-up as scheduled [facility] 07-22-2021 Hospital Discharge instructions Patient Education 07/22/2021 16:03:03 3- Arteriogram (CUSTOM) HOME GOING INSTRUCTIONS AFTER YOUR ARTERIOGRAM This handout has been developed to provide you with written guidelines to supplement the verbal instructions your doctor has reviewed with you. Please refer to these guidelines once you are home and recovering from your arteriogram. In addition it is very important that you follow any additional instructions your doctor has provided. Care of Your Arteriogram Site: You will go home with a dressing over your arteriogram site. You may remove the dressing in the morning and leave the site open to air Some degree of bruising and tenderness is normal around the arteriogram site. It will take a while for any bruising to completely resolve. Keep your site clean and dry. You may clean the area with alcohol for the first few days. You need to report the following to your physician: Any draining or oozing from the site Any swelling at the site Any increased pain or tenderness at the site Any numbness in your leg where the procedure was done A temperature above 100 degrees. IMPORTANT! If there is any large amount of bleeding, you or someone else needs to apply direct pressure to the site. (Just like the nurse did in the radiology lab after your procedure) It is very important that you hold constant pressure. (Do not release the pressure to check if the bleeding has stopped.) You then need to call 911 and be transported to the nearest emergency room. Other Important after Procedure Care: Do not drive for the first 24 hours from the time of your procedure unless instructed otherwise by your physician. Do not do any heavy lifting or straining for 48 hours after you are discharged to allow your procedure site time to fully heal. Drink plenty of fluids for the next 48 hours to help your kidneys flush the dye out of your system. Please have someone stay with you the first night home from your arteriogram. Do not smoke for the next 24 hours to avoid the possibility of a blood clot in the artery that could block blood supply to your forearm, hand or foot. No laxatives or enemas for the next 24 hours. Medications: Take all your medications as ordered and do not discontinue them unless told to do so. Only take the medications written on your discharge instruction sheet. Your doctor may change your medications based on the results of your Arteriogram. It is very important that if you have any questions about any of your medications after you go home that you call your physician. Follow Up Care: Please keep all follow up appointments with your doctor. Please notify us at if you require any care as a result of your procedure today. (Even if you are seen by a doctor and released without further care.) 07/22/2021 16:02:19 Moderate Conscious Sedation, Adult, Care After Moderate Conscious Sedation, Adult, Care After These instructions provide you with information about caring for yourself after your procedure. Your health care provider may also give you more specific instructions. Your treatment has been planned according to current medical practices, but problems sometimes occur. Call your health care provider if you have any problems or questions after your procedure. What can I expect after the procedure? After your procedure, it is common: To feel sleepy for several hours. To feel clumsy and have poor balance for several hours. To have poor judgment for several hours. To vomit if you eat too soon. Follow these instructions at home: For at least 24 hours after the procedure: Do not: ?Participate in activities where you could fall or become injured. ?Drive. ?Use heavy machinery. ?Drink alcohol. ?Take sleeping pills or medicines that cause drowsiness. ?Make important decisions or sign legal documents. ?Take care of children on your own. Rest. Eating and drinking Follow the diet recommended by your health care provider. If you vomit: ?Drink water, juice, or soup when you can drink without vomiting. ?Make sure you have little or no nausea before eating solid foods. General instructions Have a responsible adult stay with you until you are awake and alert. Take vjor-wxy-tocnczu and prescription medicines only as told by your health care provider. If you smoke, do not smoke without supervision. Keep all follow-up visits as told by your health care provider. This is important. Contact a health care provider if: You keep feeling nauseous or you keep vomiting. You feel light-headed. You develop a rash. You have a fever. Get help right away if: You have trouble breathing. This information is not intended to replace advice given to you by your health care provider. Make sure you discuss any questions you have with your health care provider. Document Released: 01/22/2014 Document Revised: 03/16/2018 Document Reviewed: 07/23/2016 [employer] Patient Education 2020 [employer]. Follow Up Care 07/01/2021 16:19:17 With:RADHA GILL MD Address: [address] [place] [id number] When: Unknown [facility] 07-22-2021 History of Present illness Narrative 86 yo male, a resident of [facility], with PMH of A-fib (not on AC due to rectal bleed), CAD, s/p multiple PCIs to RCA for ISR (2004,2009, 2013 and 2015), HTN, HL, CHF, venous insufficiency, mild dementia, H/o prostate CA, Urinary incontinence, SCOTT, GERD, Rectal prolapse, chronic back pain, OA, carpal tunnel syndrome, polyneuropathy, ZEYNEP, PAD, with a history of RLE stents in 2013, and 2 angioplasties on the Lt with Dr Filemon Botello: 07/22/21 POCKET CUTTER/DCB of L SFA/pop, 09/02/21 POCKET CUTTER/DCB of Lt PT/TPT/pop (images in PACS), who is self referred to us for consideration for further treatment in the setting of nonhealing painful Lt 2nd toe ulcer and Lt moser ulcer.Pt states he's had the Lt 2nd toe sore for years, that has been worsening in the last 3 months, with severe rest pain at night, keeping him from sleeping, Lt moser ulcer for 3-4 months. He is being managed by the [facility] Dr Jad Hall/Cody Collier, ISABEL.He is also c/o Rt foot pain to a lesser degree with toe swelling and bluish discoloration, with no open sores.He is not active, mostly sitting in a wheelchair, only walking with Rollator during PT sessions twice a week.He denies CP, but admits to SOB on exertion. Denies palpitations. [employer] Work Phone: Chief complaint Narrative - Reported FEI OLEARY is being seen for a cardiovascular evaluation.FEI OLEARY is being seen for peripheral vascular disease. [facility]zkmanexmh[facility] [facility] Work Phone: Evaluation + Plan note No data available for this section [facility] documented in this encounter [facility] Work Phone: Evaluation note* Diagnosis Peripheral vascular disease, unspecified (CMS/HCC) Peripheral vascular disease, unspecified documented in this encounter [facility] Work Phone: History of Present illness Narrative* Mr Oleary is an 86-year-old male with history of atrial fibrillation not on anticoagulation due to GI bleed, CAD status post multiple PCI, hypertension, hyperlipidemia, mild dementia, urinary incontinence, chronic lower back pain, PAD with prior lower extremity interventions who is presenting for follow-up after recent left lower extremity intervention. * Patient originally presented for evaluation due to a nonhealing left second toe wound for several years and anterior moser ulcer for the last several months. RALPH/TBI's were 0.5/0.3. He underwent left lower extremity angiogram and intervention with SFA popliteal and tibial recanalization with Dr Ricketts. * Patient reports resolution of his foot pain. Post procedure RALPH/TBIs improved to 0.7/0/48. He is following with Dr. Hoover for wound care. * Reports over the last couple years he has been mainly wheelchair-bound due to leg weakness, but uses his feet to transport. * Since last visit his wounds are slowly healing well. [employer] Work Phone: History of Present illness Narrative* Mr Oleary is an 87-year-old male with history of atrial fibrillation not on anticoagulation due to GI bleed, CAD status post multiple PCI, hypertension, hyperlipidemia, mild dementia, urinary incontinence, chronic lower back pain, PAD with prior lower extremity interventions who is presenting for follow-up after recent left lower extremity intervention. * Patient originally presented for evaluation due to a nonhealing left second toe wound for several years and anterior moser ulcer for the last several months. RALPH/TBI's were 0.5/0.3. He underwent left lower extremity angiogram and intervention with SFA popliteal and tibial recanalization with Dr Ricketts. * Patient reports resolution of his foot pain. Post procedure RALPH/TBIs improved to 0.7/0/48. He is following with Dr. Hoover for wound care. * Reports over the last couple years he has been mainly wheelchair-bound due to leg weakness, but uses his feet to transport on the wheelchair. * Since last visit his wounds are slowly healing well. [employer] Work Phone: Progress note No data available for this section [facility] Family History No Family History Records Found Mother Name Dates Details Family history of Silent Str cornell Status:Active Father Name Dates Details Family history of Brain Tumo r Status:Active Unknown Family Member Name Dates Details Brain Tumor: Father Status:Active Silent Stroke: Mother Status:Active Unknown Family Member Name Dates Details Brain Tumor: Father Status:Active Silent Stroke: Mother Status:Active Unknown Family Member Name Dates Details Brain Tumor: Father Status:Active Silent Stroke: Mother Status:Active Unknown Family Member Name Dates Details Brain Tumor: Father Status:Active Silent Stroke: Mother Status:Active Unknown Family Member Name Dates Details Brain Tumor: Father Status:Active Silent Stroke: Mother Status:Active Unknown Family Member Name Dates Details Brain Tumor: Father Status:Active Silent Stroke: Mother Status:Active Unknown Family Member Name Dates Details Brain Tumor: Father Status:Active Silent Stroke: Mother Status:Active Unknown Family Member Name Dates Details Brain Tumor: Father Status:Active Silent Stroke: Mother Status:Active Unknown Family Member Name Dates Details Brain Tumor: Father Status:Active Silent Stroke: Mother Status:Active Unknown Family Member Name Dates Details Brain Tumor: Father Status:Active Silent Stroke: Mother Status:Active Unknown Family Member Name Dates Details Brain Tumor: Father Status:Active Silent Stroke: Mother Status:Active History of Past Illness Problem Noted Date Resolved Date SEBORRHEIC KERATOSIS NOS 01/08/2010 010 Summary Purpose Advance Directives No Advanced Directives Records FoundNo Advanced Directives Records FoundNo Advanced Directives Records FoundNo Advanced Directives Records FoundNo Advanced Directives Records FoundNo Advanced Directives Records FoundNo Advanced Directives Records Found Chief Complaint 6 week follow upPAD f/u Reason for Referral Specialty Diagnoses / Procedures Referred By Contac t Referred To Contact Cardiology Diagnoses Peripheral vascular disease, unspecified (CMS/HCC) Procedures Vascular US ankle brachial index (RALPH) without exercise Juventino Negron MD [address] [place] [address] [facility], [address] [address] Referral ID Status Reason Start Date Expiration Date Visits Requested Visits Authorized [id number] Authorized Perform Procedure 12/31/2022 06/29/2023 1 1 Additional Source Comments Source Comments (unrecognize d section and content) In the event this informatio n is protected by the Federal Confidentiality of Alcohol and Drug Abuse Patient Records regulations: The Federal rules restrict any use of the information to criminally investigate or prosecute any alcohol or drug abuse patient.[facility] (unrecognized sect ion and content) No Status Records FoundNo Status Records FoundNo Status Records FoundNo Status Records FoundNo Status Records FoundNo Status Records FoundNo Status Records Found INFORMATION SOURCE (unrecogn ized section and content) DATE CREATED AUTHOR AUTHOR'S ORGANIZ ATION 09/04/2021 [facility] DATE CREATED AUTHOR AUTHOR'S ORGANIZ ATION 02/12/2022 [facility] DATE CREATED AUTHOR AUTHOR'S ORGANIZ ATION 08/18/2022 [facility] DATE CREATED AUTHOR AUTHOR'S ORGANIZ ATION 08/20/2022 [employer] DATE CREATED AUTHOR AUTHOR'S ORGANIZ ATION 12/14/2022 [facility] DATE CREATED AUTHOR AUTHOR'S ORGANIZ ATION 03/30/2023 [facility] Care Team (unrecognized sect ion and content) [employer] Associate Relationship Specialty Start Date End Date Noe Allen MD PCP - General 06/07/22 Reason for Visit (unrecogniz ed section and content) Specialty Diagnoses / Procedures Referred By Contac t Referred To Contact Cardiology Diagnoses Peripheral vascular disease, unspecified (CMS/HCC) Procedures Vascular US ankle brachial index (RALPH) without exercise Juventino Negron MD [address] [place] [id number] Referral ID Status Reason Start Date Expiration Date Visits Requested Visits Authorized [id number] Authorized Perform Procedure 12/31/2022 06/29/2023 1 1 FOR RECORDS PERTAINING TO PATIENTS WHO ARE OR HAVE BEEN ENROLLED IN A CHEMICAL DEPENDENCY/SUBSTANCEABUSE PROGRAM, SOME INFORMATION MAY BE OMITTED. This clinical summary was aggregated from multiple sources. Caution should be exercised in using it in the provision of clinical care. This summary normalizes information from multiple sources, and as a consequence, information in this document may materially change the coding, format and clinical context of patient data. In addition, data may be omitted in some cases. CLINICAL DECISIONS SHOULD BE BASED ON THE PRIMARY CLINICAL RECORDS. [facility]. provides no warranty or guarantee of the accuracy or completeness of information in this document.
== END ==
LOC: OLS.WHLEAS 05:00
PROVIDERS: PCP Internal Medicine; Visit Provider Internal Medicine
DX: E87.6 Hypokalemia (principal); E11.51 Type 2 diabetes mellitus with diabetic peripheral angiopathy without gangrene; E11.43 Type 2 diabetes mellitus with diabetic autonomic (poly)neuropathy; E11.621 Type 2 diabetes mellitus with foot ulcer; G47.33 Obstructive sleep apnea (adult) (pediatric)
CPT/HCPCS: 36415; 80048; 85025

== ENCOUNTER → 2023-05-09 | Outpatient (REF) | payer MEDICARE, OTHER, SELFPAY ==
--- OUTSIDE RECORDS SUMMARY | 2023-05-09 04:27 | XMS RPT_ITS | CCD ---
Author Name Unknown Address [address] [place] [address] Organization [facility] Care Team Providers Care Styrene Dehydration Reactor Operator Name Role Phone Mi Armando Unavailable Unavailable Shena Stokes Unavailable Unavailable Remy Borjas Unavailable Unavailable Update Needed Unavailable Unavailable Radha Gill Primary Care Provider DR RADHA GILL MD Primary Care Physician Update Needed Unavailable Unavailable Unavailable Unavailable Radha Gill Primary Care Unavailable Iveth Hale Attending Unavailable Noe Allen Unavailable CHAUNCEY LEE Attending Unavailable Desi, Dr. Noe Solano Primary Care Unavail able Squires-Irbbfvp0qe, Ypqmum1s Attending Unav Radha Staley Primary Care Unavailable Squires-Yrszgac0jl, Ztbftz0z Attending Unav ailcheyanne Allen, Dr. Noe Solano [...] Shaw Anderson, Dr. Juventino Gutierres Attending Unavailable Dsei, Dr. Noe Solano Primary Care Unavail able [...] available Noe Allen MD Primary Care Provider 1( [phone] JUVENTINO NEGRON Referring Unav ailable NOE ALLEN Primary Care Unavailable Allergies Allergy Classification Reported Allergen(s) Allergy Type Date of Onset Reaction(s) Facility (4 sources) carisoprodol; Translations: [Carisoprodol] Drug Allergy 1 ? rsn, itching sensation [facility] Work Phone: (4 sources) itraconazole; Translations: [SPORANOX] Drug Allergy 1 Rash, skin turned red [facility] Work Phone: (16 sources) Carisoprodol; Translations: [carisoprodol] Drug Allergy 6 GI Upset [facility] Work Phone: (4 sources) Latex Drug Allergy 3 Rash [facility] (2 sources) spoarnox [Other] Propensity to adverse reactions 6 Rash [facility] (2 sources) Itraconazole; Translations: [itraconazole] Drug Allergy [facility] (1 source) ALLERGIES NOT ON FILE; Translations: [ALLERGIES NOT ON FILE] Propensity to adverse reactions (disorder) [facility] 2 Repository Medications Current Medications Medication Drug [...] mouth twice daily as needed HYDROCODONE-ACET AMINOPHEN [id number] Janes Loera MD amLODIPine 10 mg oral [...] TABS One tablet by mouth daily ASPIRIN [id number] Janes Loera MD Problems Active Problems Problem [...] (2 sources) Long-term drug therapy; 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] Onset: 08-27-2010 08-27-2010 Unclassified [...] Reason Not Done Noe Allen Work Phone: EX-Brykwgyeaa-AJK [facility] [address] [place] Work Phone: 08-16-2022 15:39-0400 Diastolic blood pressure 70 mm[Hg] Noe Allen Work Phone: GT-Vlmjzxozce-VHE [facility] [address] [place] Work Phone: 08-16-2022 15:39-0400 Heart rate 55 /min Noe Allen Work Phone: XS-Krbehksxqv-UIO [facility] [address] [place] Work Phone: 08-16-2022 15:39-0400 SaO2% (BldA) [Mass fraction] 96 % Noe Allen Work Phone: WR-Kzgkbtjiwj-EQK [facility] [address] [place] Work Phone: 08-16-2022 15:39-0400 Systolic blood pressure 120 mm[Hg] Noe Allen Work Phone: HP-Pfhizvwcay-CCX [facility] [address] [place] Work Phone: 07-14-2022 07:54-0400 Body height 167.4 cm Mei Fascione DPM Work Phone: [facility] 07-14-2022 07:54-0400 Body mass index (BMI) [Ratio] 24.27 kg/m2 Mei Fascione DPM Work Phone: [facility] 07-14-2022 07:54-0400 Body weight 68 kg Mei Fascione DPM Work Phone: [facility] 06-07-2022 11:14-0500 SaO2% (BldA) [Mass fraction] 95 % Noe Allen Work Phone: UG-Rrgtouzatk-Umsu [facility] [address] Work Phone: 04-26-2022 13:40-0500 Body height 170.[address] [facility] Work Phone: [phone])[phone] [place] [address] Work Phone: 04-26-2022 13:40-0500 Body mass index (BMI) [Ratio] 25.39 kg/m2 [facility] [place] [address] [facility] 1 Work Phone: [phone] [place] [address] Work Phone: 04-26-2022 13:40-0500 Body surface area Derived from formula 1.85 m2 [facility] [place] [address] [facility] 1 Work Phone: [phone] [place] [address] Work Phone: 04-26-2022 13:40-0500 Body weight 73.[address] [facility] 1 Work Phone: 2(125)023-816452 [place] [address] Work Phone: 04-26-2022 13:40-0500 Diastolic blood pressure 78 mm[Hg] [address] [facility] Work Phone: 0(441)527-237352 [place] [address] Work Phone: 04-26-2022 13:40-0500 Heart rate 67 /min [address] [facility] 1 Work Phone: [phone])114-937452 [place] [address] Work Phone: 04-26-2022 13:40-0500 SaO2% (BldA) [Mass fraction] 95 % [address] [facility] 1 Work Phone: 3(052)[phone] [place] [address] Work Phone: 04-26-2022 13:40-0500 Systolic blood pressure 146 mm[Hg] [address] [facility] 1 Work Phone: [phone])[phone] [place] [address] Work Phone: 02-10-2022 09:28-0400 Body height 167.64 cm Iveth Hale PA-C Work Phone: GG[facility]Mwasjljbwz-Jrei [facility] Work Phone: 02-10-2022 09:28-0400 Body mass index (BMI) [Ratio] 24.86 kg/m2 Iveth Linetsky PA-C Work Phone: FC-Lkxzpuryjm-Dazx [facility] Work Phone: 02-10-2022 09:28-0400 Body surface area Derived from formula 1.79 m2 Iveth Linetsky PA-C Work Phone: IG-Urhrvozdca-Cfvn [facility] Work Phone: 02-10-2022 09:28-0400 Body weight 69.85 kg Iveth Linetsky PA-C Work Phone: IG-Sngzfdtlhb-Tqge [facility] Work Phone: 02-10-2022 09:28-0400 Diastolic blood pressure 64 mm[Hg] Iveth LineSparql Cityky PA-C Work Phone: HK-Lamkejbshb-Vruq [facility] Work Phone: 02-10-2022 09:28-0400 Heart rate 56 /min Iveth Linetsky PA-C Work Phone: ZR-Kirnztthvy-Yqlv [facility] Work Phone: 02-10-2022 09:28-0400 SaO2% (BldA) [Mass fraction] 96 % Iveth LineSparql Cityky PA-C Work Phone: WZ-Lhvzwxuafo-Kudv [facility] Work Phone: 02-10-2022 09:28-0400 Systolic blood pressure 147 mm[Hg] Iveth Linetsky PA-C Work Phone: RH-Twmmjkrxqm-Lkwy [facility] Work Phone: 09-02-2021 14:50-0400 Diastolic blood pressure 60 mm[Hg] FILEMON ROSE MD [facility] 09-02-2021 14:50-0400 Heart rate 56 /min FILEMON ROSE MD [facility] 09-02-2021 14:50-0400 Mean blood pressure 83 mm[Hg] FILEMON ROSE MD [facility] 09-02-2021 14:50-0400 Systolic blood pressure 130 mm[Hg] FILEMON ROSE MD [facility] 09-02-2021 13:50-0400 Diastolic blood pressure 70 mm[Hg] FILEMON ROSE MD [facility] 09-02-2021 13:50-0400 Heart rate 56 /min FILEMON ROSE MD [facility] 09-02-2021 13:50-0400 Mean blood pressure 90 mm[Hg] FILEMON ROSE MD [facility] 09-02-2021 13:50-0400 Systolic blood pressure 130 mm[Hg] FILEMON ROSE MD [facility] 09-02-2021 13:20-0400 Diastolic blood pressure 68 mm[Hg] FILEMON ROSE MD [facility] 09-02-2021 13:20-0400 Heart rate 60 /min FILEMON ROSE MD [facility] 09-02-2021 13:20-0400 Mean blood pressure 83 mm[Hg] FILEMON ROSE MD [facility] 09-02-2021 13:20-0400 Systolic blood pressure 114 mm[Hg] FILEMON ROSE MD [facility] 09-02-2021 12:50-0400 Respiratory rate 16 /min FILEMON ROSE MD [facility] 09-02-2021 11:35-0400 Respiratory rate 16 /min FILEMON ROSE MD [facility] 09-02-2021 11:20-0400 Respiratory rate 16 /min FILEMON ROSE MD [facility] 09-02-2021 11:06-0400 Reason For Taking VItal Signs FILEMON ROSE MD [facility] 09-02-2021 10:50-0400 Heart rate 61 /min FILEMON ROSE MD [facility] 09-02-2021 10:45-0400 Heart rate 64 /min FILEMON ROSE MD [facility] 09-02-2021 10:40-0400 Heart rate 61 /min FILEMON ROSE MD [facility] 09-02-2021 09:00-0400 Body height 170.2 cm FILEMON ROES MD [facility] 09-02-2021 09:00-0400 Body temperature 95.54 [degF] FILEMON ROSE MD [facility] 09-02-2021 09:00-0400 Body weight 69.9 kg FILEMON ROSE MD [facility] 07-22-2021 16:12-0400 Diastolic blood pressure 70 mm[Hg] FILEMON ROSE MD [facility] 07-22-2021 16:12-0400 Heart rate 95 /min FILEMON ROSE MD [facility] 07-22-2021 16:12-0400 Respiratory rate 18 /min FILEMON ROSE MD [facility] 07-22-2021 16:12-0400 Systolic blood pressure 124 mm[Hg] FILEMON ROSE MD [facility] 07-22-2021 15:20-0400 Diastolic blood pressure 76 mm[Hg] FILEMON ROSE MD [facility] 07-22-2021 15:20-0400 Heart rate 99 /min FILEMON ROSE MD [facility] 07-22-2021 15:20-0400 Respiratory rate 18 /min FILEMON ROSE MD [facility] 07-22-2021 15:20-0400 Systolic blood pressure 128 mm[Hg] FILEMON ROSE MD [facility] 07-22-2021 14:50-0400 Diastolic blood pressure 74 mm[Hg] FILEMON ROSE MD [facility] 07-22-2021 14:50-0400 Heart rate 97 /min FILEMON ROSE MD [facility] 07-22-2021 14:50-0400 Systolic blood pressure 130 mm[Hg] FILEMON ROSE MD [facility] 07-22-2021 14:20-0400 Mean blood pressure 91 mm[Hg] FILEMON ROSE MD [facility] 07-22-2021 13:50-0400 Mean blood pressure 95 mm[Hg] FILEMON ROSE MD [facility] 07-22-2021 13:20-0400 Mean blood pressure 92 mm[Hg] FILEMON ROSE MD [facility] 07-22-2021 13:20-0400 Respiratory rate 18 /min FILEMON ROSE MD [facility] 07-22-2021 12:35-0400 Heart rate 100 /min FILEMON ROSE MD [facility] 07-22-2021 09:45-0400 Body height 170.2 cm FILEMON ROSE MD [facility] 07-22-2021 09:45-0400 Body temperature 97.16 [degF] FILEMON ROSE MD [facility] 07-22-2021 09:45-0400 Body weight 69.6 kg FILEMON ROSE MD [facility] 07-22-2021 09:45-0400 Body weight 24.03 kg/m2 FILEMON ROSE MD [facility] 07-22-2021 09:45-0400 diastolic 84 mm[Hg] FILEMON ROSE MD [facility] 07-22-2021 09:45-0400 Heart rate 127 /min FILEMON ROSE MD [facility] 07-22-2021 09:45-0400 systolic 123 mm[Hg] FILEMON ROSE MD [facility] 01-31-2017 08:07-0400 BMI (Body Mass Index) 20.37 [...] Start: 03-28-2023 End: 03-29-2023 ambulatory JUVENTINO ANDERSON [facility] Start: 03-28-2023 End: 03-28-2023 Subsequent hospital visit by physician [address] Procedures Date Procedure Procedure Detail Performing Clinician Start: 03-28-2023 [facility] US ANKLE BRACHIAL INDEX (RALPH) WITHOUT EXERCISE [...] Mahmood Start: 10-20-2015 End: 10-21-2015 Referral to finished cloth checker Janes Loera MD Start: 10-06-2015 End: 10-07-2015 [...] 09-22-2015 Follow Up Appt 1 month Janes oLera MD Start: 09-22-2015 End: 09-23-2015 Lipid 1996 [...] Janes Loera MD Start: 12-16-2014 End: 12-16-2014 PUBLIC RECORDS RESEARCHER Janes Loera MD Start: 12-16-2014 End: 12-17-2014 [...] Start: 08-11-2006 CONVERTED SURGICAL PATHOLOGY [facility] Work Phone: Start: 08-02-2006 CONVERTED SURGICAL PATHOLOGY [facility] Work Phone: Cardiac catheterization JOSIAH ROSE MD Complete repair of r otator cuff FILEMON ROSE MD Decompression of spinal cord FILEMON ROSE MD Inguinal herniorrhaphy FILEMON ROSE MD Plan of Treatment Date Care Activity Detail Author Start: 10-05-2032 DTaP/Tdap/Td Vaccines (2 - Td or Tdap) DTaP/Tdap/Td Vaccines (2 - Td or Tdap) [facility] Start: 03-28-2023 FUV, Provider: Juventino Parker, Status: Pen, Time: 11:15 AM FUV, Provider: Juventino Parker , Status: Pen, Time: 11:15 AM [facility] Work Phone: Start: 03-28-2023 PVRWITHABI, Provider: [facility], Status: Pen, Time: 10:00 AM PVRWITHABI, Provider: [facility], Status: Pen, Time: 10:00 AM [facility] Work Phone: Start: 03-28-2023 End: 03-28-2023 Patient encounter procedure 03/28/2023 10:00 AM EST Appointment [facility] [address] [place] [address] [facility] Start: 02-10-2023 Creatinine measurement Creatinine Level [facility] Start: 02-10-2023 Potassium measurement Potassium Level [facility] Start: 12-16-2022 Influenza vaccination Influenza Vaccine (#1) [facility] Start: 10-04-2022 FUV, Provider: Juventino Parker, Status: Pen, Time: 3:00 PM FUV, Provider: Juventino Parker , Status: Pen, Time: 3:00 PM [facility] Work Phone: Start: 10-04-2022 PVRWITHABI, Provider: [facility], Status: Pen, Time: 2:00 PM PVRWITHABI, Provider: [facility], Status: Pen, Time: 2:00 PM [facility] Work Phone: Start: 09-27-2022 FUV, Provider: Juventino Parker, Status: Pen, Time: 10:30 AM FUV, Provider: Juventino Parker , Status: Pen, Time: 10:30 AM [facility] Work Phone: Start: 09-27-2022 PVRWITHABI, Provider: [facility], Status: Pen, Time: 9:00 AM PVR[facility]I, Provider: [facility], Status: Pen, Time: 9:00 AM [facility] Work Phone: Start: 08-16-2022 FUV, Provider: Juventino Parker, Status: Pen, Time: 3:00 PM FUV, Provider: Juventino Parker , Status: Pen, Time: 3:00 PM [facility] Work Phone: Start: 08-16-2022 PVRWITHABI, Provider: [facility], Status: Pen, Time: 2:00 PM PVRWITHABI, Provider: [facility], Status: Pen, Time: 2:00 PM [facility] Work Phone: Start: 07-26-2022 FUV, Provider: Juventino Parker, Status: Pen, Time: 2:45 PM FUV, Provider: Juventino Parker , Status: Pen, Time: 2:45 PM [facility]glcnxse[facility] [address] Work Phone: Start: 07-26-2022 PVRWITHABI, Provider: [facility], Status: Pen, Time: 2:00 PM PVRWITHABI, Provider: [facility], Status: Pen, Time: 2:00 PM DH-Qdwbykazpd-Xrkekh d [address] Work Phone: Start: 06-21-2022 FUV, Provider: Juventino Parker, Status: Pen, Time: 10:30 AM FUV, Provider: Juventino Parker , Status: Pen, Time: 10:30 AM [facility] Work Phone: Start: 06-21-2022 PVRWITHABI, Provider: [facility], Status: Pen, Time: 9:00 AM PVR[facility]ABI, Provider: [facility], Status: Pen, Time: 9:00 AM [facility] Work Phone: Start: 06-07-2022 FUV, Provider: Juventino Parker, Status: Pen, Time: 11:00 AM FUV, Provider: Juventino Parker , Status: Pen, Time: 11:00 AM [facility] Work Phone: Start: 06-07-2022 VNINSUFFBI, Provider: [facility], Status: Pen, Time: 9:00 AM VNINSUFFBI, Provider: [facility], Status: Pen, Time: 9:00 AM [facility] Work Phone: Start: 04-26-2022 NPV, Provider: Juventino Parker, Status: Pen, Time: 1:00 PM NPV, Provider: Juventino Parker , Status: Pen, Time: 1:00 PM [facility] Work Phone: Start: 04-26-2022 PVRWITHABI, Provider: [facility], Status: Pen, Time: 12:00 PM PVRWITHABI, Provider: [facility], Status: Pen, Time: 12:00 PM [facility] Work Phone: Start: 03-30-2022 COVID-19 Vaccine (3 - Pfizer series) COVID-19 Vaccine (3 - Pfizer series) [facility] Start: 03-30-2022 COVID-19 Vaccine (4 - Pfizer series) COVID-19 Vaccine (4 - Pfizer series) [facility] Start: 07-28-2021 Glaucoma screening Diabetes: Retinopathy Screening [facility] Start: 12-17-2019 Influenza vaccination INFLUENZA (#1) [facility] Start: 10-08-2018 DIABETES SCREEN DIABETES SCREEN [facility] Start: 08-03-2017 End: 08-03-2017 Appointment Appointment [facility] Work Phone: Start: 01-31-2017 End: 01-31-2017 *Hepatic Function Panel *Hepatic Function Panel [facility] Work Phone: Start: 01-31-2017 End: 01-31-2017 PUBLIC RECORDS RESEARCHER PUBLIC RECORDS RESEARCHER [facility] Work Phone: Start: 01-31-2017 End: 01-31-2017 Follow Up Appt 6 months Follow Up Appt 6 months [facility] Work Phone: Start: 01-31-2017 End: 01-31-2017 Lipid panel [AGGREGATE] *Lipid Profile CC PCP [facility] Work Phone: Start: 01-31-2017 End: 01-31-2017 Appointment Appointment [facility] Work Phone: Start: 07-19-2016 End: 07-19-2016 PUBLIC RECORDS RESEARCHER PUBLIC RECORDS RESEARCHER [facility] Work Phone: Start: 07-19-2016 End: 07-19-2016 Follow Up Appt 6 months Follow Up Appt 6 months [facility] Work Phone: Start: 03-23-2016 End: 09-25-2015 *Hepatic Function Panel *Hepatic Function Panel [facility] Work Phone: Start: 03-23-2016 End: 09-25-2015 Lipid panel [AGGREGATE] *Lipid Profile CC PCP [facility] Work Phone: Start: 02-18-2016 Pneumococcal Vaccine: 65+ Years (2 - PPSV23 or PCV20) Pneumococcal Vaccine: 65+ Years (2 - PPSV23 or PCV20) [facility] Start: 01-19-2016 End: 01-19-2016 PUBLIC RECORDS RESEARCHER PUBLIC RECORDS RESEARCHER [facility] Work Phone: Start: 01-19-2016 End: 01-19-2016 Follow Up Appt 6 months Follow Up Appt 6 months [facility] Work Phone: Start: 10-20-2015 End: 01-15-2016 Cardiac Rehab Cardiac Rehab [address] [place], [address] [facility] Work Phone: Start: 10-20-2015 End: 07-19-2016 PUBLIC RECORDS RESEARCHER PUBLIC RECORDS RESEARCHER [facility] Work Phone: Start: 10-20-2015 End: 07-19-2016 Follow Up Appt 3 months Follow Up Appt 3 months [facility] Work Phone: Start: 10-06-2015 End: 10-07-2015 Left Heart Cath Left Heart Cath [facility] Work Phone: Start: 09-22-2015 End: 09-23-2015 *BMP *BMP [facility] Work Phone: Start: 09-22-2015 End: 09-23-2015 *CBC with Differential *CBC with Differential [facility] Work Phone: Start: 09-22-2015 End: 09-23-2015 *Hepatic Function Panel *Hepatic Function Panel [facility] Work Phone: Start: 09-22-2015 End: 09-23-2015 BNP *Brain Natriuretic Peptide BNP [facility] Work Phone: Start: 09-22-2015 End: 09-22-2015 PUBLIC RECORDS RESEARCHER PUBLIC RECORDS RESEARCHER [facility] Work Phone: Start: 09-22-2015 End: 09-23-2015 Ecg routine ecg w/least 12 lds w/i&r EKG (In office) [facility] Work Phone: Start: 09-22-2015 End: 09-22-2015 Follow Up Appt 1 month Follow Up Appt 1 month [facility] Work Phone: Start: 09-22-2015 End: 09-23-2015 Lipid panel [AGGREGATE] *Lipid Profile CC PCP [facility] Work Phone: Start: 09-22-2015 End: 09-22-2015 Nuclear stress test -Lexiscan Nuclear stress test -Lexiscan [facility] Work Phone: Start: 06-04-2015 End: 06-04-2015 PUBLIC RECORDS RESEARCHER PUBLIC RECORDS RESEARCHER [facility] Work Phone: Start: 06-04-2015 End: 06-04-2015 Follow Up Appt 6 months Follow Up Appt 6 months [facility] Work Phone: Start: 04-22-2015 Zoster Vaccines (2 of 3) Zoster Vaccines (2 of 3) [facility] Start: 02-24-2015 End: 06-04-2015 PUBLIC RECORDS RESEARCHER PUBLIC RECORDS RESEARCHER [facility] Work Phone: Start: 01-21-2015 End: 01-21-2015 PUBLIC RECORDS RESEARCHER PUBLIC RECORDS RESEARCHER [facility] Work Phone: Start: 01-21-2015 End: 01-21-2015 Follow Up Appt 1 month Follow Up Appt 1 month [facility] Work Phone: Start: 12-31-2014 End: 09-23-2015 *Hepatic Function Panel *Hepatic Function Panel [facility] Work Phone: Start: 12-31-2014 End: 09-23-2015 Lipid panel [AGGREGATE] *Lipid Profile CC PCP [facility] Work Phone: Start: 12-16-2014 End: 12-16-2014 *BMP *BMP [facility] Work Phone: Start: 12-16-2014 End: 12-16-2014 CBC W Auto Differential panel - Blood *CBC without Diff [facility] Work Phone: Start: 12-16-2014 End: 09-22-2015 Chest x-ray X-Ray, Chest, PA & Lateral [facility] Work Phone: Start: 12-16-2014 End: 12-16-2014 PUBLIC RECORDS RESEARCHER PUBLIC RECORDS RESEARCHER [facility] Work Phone: Start: 12-16-2014 End: 12-16-2014 Ecg routine ecg w/least 12 lds w/i&r EKG (In office) [facility] Work Phone: Start: 12-16-2014 End: 12-16-2014 Follow Up Appt 6 weeks Follow Up Appt 6 weeks [facility] Work Phone: Start: 12-16-2014 End: 12-16-2014 INR Coag RelTime (PPP) *PT/INR [facility] Work Phone: Start: 12-16-2014 End: 12-16-2014 Left Heart Cath Left Heart Cath [facility] Work Phone: Start: 11-27-2014 End: 11-27-2014 PUBLIC RECORDS RESEARCHER PUBLIC RECORDS RESEARCHER [facility] Work Phone: Start: 11-27-2014 End: 11-27-2014 Ecg routine ecg w/least 12 lds w/i&r EKG (In office) [facility] Work Phone: Start: 11-27-2014 End: [...] PCP [facility] Work Phone: Start: 05-30-2014 End: 05-30-2014 MMM MMM [facility] Work Phone: Start: 12-20-2013 End: 12-20-2013 PUBLIC RECORDS RESEARCHER PUBLIC RECORDS RESEARCHER [facility] Work Phone: Start: 12-20-2013 End: 12-20-2013 Follow Up Appt 6 months Follow Up Appt 6 months [facility] Work Phone: Start: 10-15-2013 End: 06-27-2014 *Hepatic Function Panel *Hepatic Function Panel [facility] Work Phone: Start: 10-15-2013 End: 06-27-2014 Lipid panel [AGGREGATE] *Lipid Profile CC PCP [facility] Work Phone: Start: 09-27-2013 End: 09-27-2013 PUBLIC RECORDS RESEARCHER PUBLIC RECORDS RESEARCHER [facility] Work Phone: Start: 09-27-2013 End: 09-27-2013 Follow Up Appt 3 months Follow Up Appt 3 months [facility] Work Phone: Start: 09-24-2013 End: 11-27-2014 Vascular Surgery Vascular Surgery Filemon Rose MD, [facility] [address] , [address], [address] [facility] Work Phone: Start: 08-30-2013 End: 11-27-2014 Nuclear stress test -adenosine Nuclear stress test -adenosine [facility] Work Phone: Start: 07-02-2013 End: 07-02-2013 Follow Up Appt 3 months Follow Up Appt 3 months [facility] Work Phone: Start: 07-02-2013 End: 07-02-2013 MMM MMM [facility] Work Phone: Start: 04-17-2013 End: 04-22-2013 *Hepatic Function Panel *Hepatic Function Panel [facility] Work Phone: Start: 04-17-2013 End: 04-22-2013 Lipid panel [AGGREGATE] *Lipid Profile CC PCP [facility] Work Phone: Start: 12-14-2012 End: 12-14-2012 PUBLIC RECORDS RESEARCHER PUBLIC RECORDS RESEARCHER [facility] Work Phone: Start: 12-14-2012 End: 12-14-2012 Follow Up Appt 6 months Follow Up Appt 6 months [facility] Work Phone: Start: 07-16-2012 End: 10-15-2012 *Hepatic Function Panel *Hepatic Function Panel [facility] Work Phone: Start: 07-16-2012 End: 10-15-2012 Lipid panel [AGGREGATE] *Lipid Profile [facility] Work Phone: Start: 06-15-2012 End: 06-15-2012 PUBLIC RECORDS RESEARCHER PUBLIC RECORDS RESEARCHER [facility] Work Phone: Start: 06-15-2012 End: 06-15-2012 Follow Up Appt 6 months Follow Up Appt 6 months [facility] Work Phone: Start: 02-21-2012 End: 02-21-2012 24 hour holter monitor 24 hour holter monitor [facility] Work Phone: Start: 02-21-2012 End: 03-01-2012 BNP *Brain Natriuretic Peptide BNP [facility] Work Phone: Start: 02-21-2012 End: 02-21-2012 Echocardiography Echocardiogram (complete) [facility] Work Phone: Start: 02-21-2012 End: [...] [facility] Work Phone: Start: 08-07-1999 ADVANCE DIRECTIVE DISCUSSION ADVANCE DIRECTIVE DISCUSSION [facility] Start: 08-07-1999 PNEUMOVAX AGE 65 AND OVER WITH 5YR LOOKBACK (#1) PNEUMOVAX AGE 65 AND OVER WITH 5YR LOOKBACK (#1) [facility] Start: 1984 SHINGRIX VACCINE (1 of 2) SHINGRIX VACCINE (1 of 2) [facility] Start: 1953 Urine microalbumin profile DTAP,TDAP,TD (1 - Tdap) [facility] Start: 1953 Urine screening for protein Diabetes: Urine Protein Screening [facility] Start: 1944 Diabetic foot examination Diabetes: Foot Exam [facility] Start: 1934 Echocardiography Echocardiogram [facility] Start: 1934 Hemoglobin A1c measurement Diabetes: Hemoglobin A1C [facility] Start: 1934 Lipid panel Lipid Panel [facility] Start: 1934 Medicare Annual Wellness Visit Medicare Annual Wellness Visit (AWV) [facility] Patient Education [employer] Work Phone: Vascular US ankle br achial index (RALPH) without exercise Vascular US ankle brachial index (RALPH) without exercise Vascular Ultrasound Routine Peripheral vascular disease, unspecified (CMS/HCC) 03/28/2023 10:40 AM EST [facility] Service Area Work Phone: Immunizations Immunization Date Immunization Notes Care Provider Fa salvatore 02-02-2022 Pfizer COVID-19 Vac Bivalent 30 MCG/0.3ML Intramuscular Suspension Iveth Linetsky PA-C Work Phone: FY-Cstyaiqfiz-Bpntw [facility] Work Phone: 02-01-2022 influenza virus vaccine, unspecified formulation Mei Hoover DPM Work Phone: [facility] Work Phone: 05-12-2020 SARS-CoV-2 mRNA (tozinameran) vaccine FILEMON ROSE MD [facility] 04-21-2020 SARS-CoV-2 mRNA (tozinameran) vaccine FILEMON ROSE MD [facility] 01-30-2019 influenza virus vaccine, unspecified formulation FILEMON ROSE MD [facility] 01-30-2019 influenza, seasonal, injectable Iveth Linetsky PA-C Work Phone: CD-Crgarxlwje-Mqpim [facility] Work Phone: 02-05-2018 influenza, seasonal, injectable Iveth Linetsky PA-C Work Phone: PD-Ufzpswtbcx-Zbtyb [facility] Work Phone: 02-23-2017 influenza, injectabl e, quadrivalent, contains preservative Iveth Linetsky PA-C Work Phone: AD-Wxhmghytef-Zljny [facility] Work Phone: 12-24-2015 influenza, seasonal, injectable Iveth Linetsky PA-C Work Phone: UJ-Vaesrtazmc-Sedab [facility] Work Phone: 12-24-2015 pneumococcal conjuga te vaccine, 13 valent FILEMON ROSE MD [facility] 02-25-2015 zoster vaccine, live FILEMON TELLES MD [facility] 01-23-2015 influenza, seasonal, injectable Iveth Linetsky PA-C Work Phone: NR-Cjrcxeknng-Wbwbe [facility] Work Phone: 02-20-2014 influenza, seasonal, injectable Iveth Linetsky PA-C Work Phone: WJ-Rhuffhuovh-Zpagq [facility] Work Phone: 01-25-2013 influenza, seasonal, injectable Iveth Linetsky PA-C Work Phone: YD-Jwmzqnvmbp-Liech [facility] Work Phone: 02-09-2012 influenza, seasonal, injectable Iveth Linetsky PA-C Work Phone: LK-Oxeyygcsqz-Whlho [facility] Work Phone: 02-09-2012 TD(adult) unspecifie d formulation Iveth Linetsky PA-C Work Phone: DD-Rpnozyflge-Bmoin [facility] Work Phone: 01-22-2010 influenza virus vaccine, whole virus Iveth Linetsky PA-C Work Phone: SZ-Vxnxsbpefg-Jwjjd [facility] Work Phone: 04-15-2009 novel dfrhrvyyn-M0D2-13, preservative-free, injectable Iveth Linetsky PA-C Work Phone: VN-Ceryzmydps-Oxjks [facility] Work Phone: 02-06-2009 influenza virus vaccine, whole virus Iveth Linetsky PA-C Work Phone: QA-Kyvpvgouge-Dqncv [facility] Work Phone: 02-15-2008 influenza virus vaccine, whole virus Iveth Linetsky PA-C Work Phone: ED-Xawutlewwv-Rjyfn [facility] Work Phone: 02-13-2007 influenza virus vaccine, whole virus Iveth Hale PA-C Work Phone: PK-Yutfnryone-XaoluCamelia PEÑA Work Phone: Payers Date Payer Category Payer Unknown 2022 Unknown [id number] 2002 Private Health Insurance [facility] [id number] 2002-Present Indemnity [id number] 1999 Medicare MEDICARE MEDICAR E B [id number] 1999-Present [place] [id number] 1999 Medicare [id number] 1999 Medicare MEDICARE MEDICAR E PART A AND B [id number] 1999-Present [address] [place] [address] [id number] 1934 Unknown [id number] 1934 Unknown [id number] .[id number] 1934 Unknown [id number] .[id number] 1934 Unknown [id number] .1068 1934 Unknown [id number] .1068 1934 Unknown [id number] .1068 1934 Unknown [id number] .356 1934 Unknown [id number] .356 1934 Unknown [id number] [id number] .356 1934 Unknown [id number] .356 1934 Unknown [id number] .1243 Social History Date Type Detail Facility Start: 07-10-2006 End: 10-17-2018 Tobacco smoking status WVIS Never smoker [facility] Start: 07-10-2006 Alcohol intake Current drinke r of alcohol (finding) [facility] Start: 1934 Sex Assigned At Not on file [facility] Sex Assigned At Sex [facility] Wine Consumption (1 Glasses/Day) Wine Consumption (1 Glasses/Day) PJ-Naajhtdrrh-KSF Jyoti Bertrand 1500 DO Work Phone: Tobacco smoking stat [facility] Tobacco smoking consumption unknown [facility] Work Phone: Gender identity Not on file [facility] Work Phone: Start: 03-18-2023 End: 03-28-2023 Exposure to SARS-CoV-2 (event) Not sure [facility] NEGATED: Highlighted row - - QB-Esxhzet-Rtjnvch 2100 Work Phone: Functional Status Date Assessment Result Facility 09-02-2021 Functional Status [facility] 07-22-2021 [facility] 07-22-2021 [facility] NEGATED: Highlighted row Functional performance Functional status health issues are not documented Disease EY-Tlmtldu-Avmjwny 2100 Work Phone: Mental Status Date Assessment Result Facility 09-02-2021 [facility] NE[facility]ATED: Highlighted row Cognitive function [Interpretation] Cognitive status health issues are not documented Disease RT-Hakllwh-Anusdlv 2100 Work Phone: Clinical Notes 07-22-2021 to [...] bone exposed (L97.524) Surgeon: Mei Hoover Resident/Fellow/Other Sealer Sander: None of these were associated with this [...] infection. He is currently residing at the [facility]. He had recent vascular intervention [...] This was performed (more content not included)... [facility] 07-14-2022 Note History & Physical R eviewed: [...] Last Updated: 14-Jul-2022 08:26 by Mei Hoover) [facility] 07-14-2022 Miscellaneous Notes PROCEDURE DETAILS Preoperative Diagnosis: left leg ulcer with subcutaneous tissue (L97.922) Left 2nd toe ulcer with bone exposed (L97.524) Postoperative Diagnosis: left leg ulcer with subcutaneous tissue (L97.922) Left 2nd toe ulcer with bone exposed (L97.524) Surgeon: Mei Hoover Resident/Fellow/Other Sealer Sander: None of these were associated with this [...] infection. He is currently residing at the [facility] in [place]. He had recent vascular intervention with Dr. [...] and intact until follow-up next week at [facility] with Dr. Hoover. The patient will further be transferred upon continued stability back to the [facility]. Electronic orders placed. Continue nutritional supplementation to optimize healing. To continue to follow-up with vascular specialist and to continue on anticoagulation medication. Mei Hoover DPM FACFAS [facility] Attestation: Note Completion: Attending Attestation I performed the procedure without a resident Electronic Signatures: Mei Hoover) (Signed 15-Jul-2022 09:18) Authored: Post-Operative Note, Chart Review, Note Completion Last Updated: 15-Jul-2022 09:18 by Mei Hoover) documented in this encounter [facility] Work Phone: 07-14-2022 Note Formatting of this n ote is different from the original. PROCEDURE DETAILS Preoperative Diagnosis: left leg ulcer with subcutaneous tissue (L97.922) Left 2nd toe ulcer with bone exposed (L97.524) Postoperative Diagnosis: left leg ulcer with subcutaneous tissue (L97.922) Left 2nd toe ulcer with bone exposed (L97.524) Surgeon: Mei Hoover Resident/Fellow/Other Sealer Sander: None of these were associated with this [...] infection. He is currently residing at the [facility]. He had recent vascular intervention [...] and intact until follow-up next week at [facility] with Dr. Hoover. The patient will further be transferred upon continued stability back to the [facility]. Electronic orders placed. Continue nutritional supplementation to optimize healing. To continue to follow-up with vascular specialist and to continue on anticoagulation medication. MIGUEL Ya [facility] Attestation: Note Completion: Attending Attestation I performed the procedure without a resident Electronic Signatures: Mei Hoover) (Signed 15-Jul-2022 09:18) Authored: Post-Operative Note, Chart Review, Note Completion Last Updated: 15-Jul-2022 09:18 by Mei Hoover) [facility] Work Phone: 07-14-2022 History and physical note [...] Last Updated: 14-Jul-2022 08:26 by Mei Hoover) [facility] Work Phone: 07-14-2022 History and physical note [...] by Mei Hoover) documented in this encounter [facility] Work Phone: 03-22-2022 Note Clinical Event: Clinical Event Note: TopicEndovascular Post-Procedure Note Details Fei Oleary is an 86 yo male, a resident of [facility], with PMH of A-fib (not on AC [...] the Lt with Dr Filemon Botello: 07/22/21 IRONER HAND/DCB of L SFA/pop, 09/02/21 IRONER HAND/DCB of Lt PT/TPT/pop (images in PACS), who [...] months. He is being managed by the [facility] Jad Hlal/Cody Collier CNP. He is not active, mostly [...] today per pt/family request. Today pt underwent IRONER HAND of Lt. EIA, PT and IRONER HAND/DCB/stenting of Lt. SFA, POP, TPT. Access: via right (6Fr sheath) and left (7Fr sheath) groin with angioseal; retrograde DP access with TR band. Plan - 2 hrs bedrest - continue with Plavix and Atorvastatin - Start ASA Rx sent to local pharmacy - 1 month f/u with RALPH/TBI Electronic Signatures: Aurora Smiley (SHOVEL LOGGER-PIN PUSHER) (Signed 22-Mar-2022 15:35) Authored: Clinical Event Note Last Updated: 22-Mar-2022 15:35 by Aurora Smiley (SHOVEL LOGGER-PIN PUSHER) [facility] 03-22-2022 Note Clinical Note - Phar pamela v2: Education: Document TopicMedication Education IwoisggjeqK7W: No, patient is SNF Sources used to confirm home medication list: Patient interview, half-way ([facility] Gerson Allen), Chart review (CAMMIE Hitchcock, Cardio Note 02/10). Aspirin: not prescribed Statin: atorvastatin 20 mg P2Y12 inhibitor: clopidogrel 75 mg daily Anticoagulant: not prescribed Comments/other: Medication history was obtained through fax medication list sent by [facility]. Patient has dementia. Spoke to nurse who said all medication last doses were taken last night. Patient did not take any medication doses this morning. Acetaminophen and omeprazole have been held 2 days. Medication reconciliation complete Please reach out via [employer] for questions Lali Vázquez, PharmD, [facility] PGY1 Resident [facility] Is This Intervention Medication Reconciliation Relatedyes Time [id number] - 60 minutes Additional NotesDrug Name: atorvastatin [...] Reaction: Unknown Electronic Signatures: Gisell Callaway ([facility]) (Signed 22-Mar-2022 10:42) Co-Signer: Dmitri Allergy Lali Vázquez ([facility]) (Signed 22-Mar-2022 09:58) Authored: Education, Allergy Last Updated: 22-Mar-2022 10:42 by Gisell Callaway ([facility]) [facility] 03-22-2022 Note History of Present I [...] the Lt with Dr Filemon Botello: 07/22/21 IRONER HAND/DCB of L SFA/pop, 09/02/21 IRONER HAND/DCB of Lt PT/TPT/pop (images in PACS), who is self referred to us for consideration for further treatment in the setting of nonhealing painful Lt 2nd toe ulcer and Lt moser ulcer. PMHx: HTN CAD PAD Venous insufficiency PSHx: IRONER HAND of bilateral LE PCI Home Medication Review: [...] the note. I personally evaluated the patient [id number] Electronic Signatures: Benja Ricketts) (Signed 24-Mar-2022 23:00) Authored: KARYN, Note Completion Co-Signer: History of Present Illness, Home Medication Review, Impression/Procedure, Physical Exam, Consent Fortino Ng (Resident)) (Signed 22-Mar-2022 08:04) Authored: History of Present Illness, Home Medication Review, Impression/Procedure, Physical Exam, Consent Last Updated: 24-Mar-2022 23:00 by Benja Ricketts) [facility] 09-02-2021 Hospital Discharge instructions Patient Education [...] until you are awake and alert. Take moey-zet-vwmtzqq and prescription medicines only as told by [...] 01/22/2014 Document Revised: 03/16/2018 Document Reviewed: 07/23/2016 [employer] Patient Education 2020 [employer]. Follow Up Care 08/24/2021 11:55:08 With:FILEMON ROSE MD, [facility], Surgery, Vascular Surgeons Address: [facility] [address] [place] [id number] When: Unknown Comments:Follow-up as scheduled [facility] 07-22-2021 Hospital Discharge instructions Patient Education 07/22/2021 [...] until you are awake and alert. Take okhl-jjp-uznhwot and prescription medicines only as told by [...] 01/22/2014 Document Revised: 03/16/2018 Document Reviewed: 07/23/2016 [employer] Patient Education 2020 [employer]. Follow Up Care 07/01/2021 16:19:17 With:RADHA GILL MD Address: [address] [place] [phone]- When: Unknown [facility] 07-22-2021 History of Present illness Narrative 86 yo male, a resident of [facility], with PMH of A-fib (not on AC [...] the Lt with Dr Filemon Botello: 07/22/21 IRONER HAND/DCB of L SFA/pop, 09/02/21 IRONER HAND/DCB of Lt PT/TPT/pop (images in PACS), who [...] admits to SOB on exertion. Denies palpitations. SE-Byvokmkpal-Kfxwv [employer] Work Phone: Chief complaint Narrative - Reported FEI OLEARY is being seen for a cardiovascular evaluation.FEI OLEARY is being seen for peripheral vascular disease. MT-Zxqmghsthb-Wisfr [facility] Work Phone: Evaluation + Plan note No data available for this section [facility] documented in this encounter [facility] Work Phone: Evaluation note* Diagnosis Peripheral vascular disease, unspecified (CMS/HCC) Peripheral vascular disease, unspecified documented in this encounter [facility] Work Phone: History of Present illness Narrative* [...] visit his wounds are slowly healing well. [facility] Work Phone: History of Present illness Narrative* [...] visit his wounds are slowly healing well. AU-Nfgkqzdzoh-QuhsfgpSendia Work Phone: Progress note No data available for this section [facility] Family History No Family History Records Found [...] index (RALPH) without exercise Juventino Negron MD [address] [place] [address] [facility], [address] [address] Referral ID Status Reason Start Date Expiration Date Visits Requested Visits Authorized [id number] Authorized Perform Procedure 12/31/2022 06/29/2023 1 1 Additional Source Comments Source Comments (unrecognize d section and content) In the event this informatio n is protected by the Federal Confidentiality of Alcohol and Drug Abuse Patient Records regulations: The Federal rules restrict any use of the information to criminally investigate or prosecute any alcohol or drug abuse patient.[facility] (unrecognized sect ion and content) No Status Records FoundNo Status Records FoundNo Status Records FoundNo Status Records FoundNo Status Records FoundNo Status Records FoundNo Status Records Found INFORMATION SOURCE (unrecogn ized section and content) DATE CREATED AUTHOR AUTHOR'S ORGANIZ ATION 09/04/2021 [facility] DATE CREATED AUTHOR AUTHOR'S ORGANIZ ATION 02/12/2022 [facility] DATE CREATED AUTHOR AUTHOR'S ORGANIZ ATION 08/18/2022 [facility] DATE CREATED AUTHOR AUTHOR'S ORGANIZ ATION 08/20/2022 [employer] DATE CREATED AUTHOR AUTHOR'S ORGANIZ ATION 12/14/2022 [facility] DATE CREATED AUTHOR AUTHOR'S ORGANIZ ATION 03/30/2023 [facility] Care Team (unrecognized sect ion and content) [employer] Operator Relationship Specialty Start Date End Date Noe Allen MD PCP - General 06/07/22 Reason for Visit (unrecogniz ed section and content) Specialty Diagnoses / Procedures Referred By Contac t Referred To Contact Cardiology Diagnoses Peripheral vascular disease, unspecified (CMS/HCC) Procedures Vascular US ankle brachial index (RALPH) without exercise Juventino Negron MD [address] [place] [id number] Referral ID Status Reason Start Date Expiration Date Visits Requested Visits Authorized [id number] Authorized Perform Procedure 12/31/2022 06/29/2023 1 1 [...] BE BASED ON THE PRIMARY CLINICAL RECORDS. [facility] [place] [employer] [facility]. provides no warranty or guarantee of the accuracy or completeness of information in this document.
[2023-05-09 09:22] LABS: Absolute Lymphocyte Count 0.91 X10^3/uL (0.83-4.51); Absolute Neutrophil Count 4.4 X10^3/uL (2.0-7.7); Basophil# 0.04 X10^3/uL; Basophil% 0.6 % (0-1); Eosinophil# 0.26 X10^3/uL; Eosinophils% 4.1 % (0-5); Hematocrit 44.2 % (40-54); Lymphocyte # 0.91 X10^3/ul (0.83-4.51); Lymphocyte % 14.3 % (19-41); Mean Corp Hgb Conc 31.7 g/dL (32-36); Mean Corpuscular Hgb 33.5 pg (27.0-32.0); Mean Corpuscular Volume 105.7 fL (80-94); Mean Platelet Vol. 9.7 fl (6.2-12.0); NRBC Flagged by Analyzer 0 % (0-5); Neutrophil # 4.42 X10^3/uL (2.7-7.7); Neutrophil % 69.7 % (47-70); Platelet Count 275 K/mm3 (150-450); RBC Distribution Width CV 13.9 % (11.6-14.6); RBC Distribution Width SD 54.9 fl (35.1-43.9); Red Blood Count 4.18 M/mm3 (4.6-6.2); White Blood Count 6.4 K/mm3 (4.4-11.0)
[2023-05-09 09:29] LABS: Anion Gap 1 (5-15); BUN 17 mg/dL (7-18); BUN/Creat Ratio 19.1 RATIO (10-20); Calcium,Total 9.5 mg/dL (8.5-10.1); Chloride 108 mmol/L (98-107); Creatinine, Serum 0.89 mg/dL (0.70-1.30); EST Glomerular Filtration Rate 86 mL/min (>60); Est Glom Filt Rate - Afr Amer 104 mL/min (>60); Glucose 107 mg/dL (74-106); Potassium 4.1 mmol/L (3.5-5.1); Sodium Level 142 mmol/L (136-145)
== END ==
LOC: OLS.WHLEAS 05:00
PROVIDERS: PCP Internal Medicine; Visit Provider Internal Medicine
DX: E87.6 Hypokalemia (principal); E11.51 Type 2 diabetes mellitus with diabetic peripheral angiopathy without gangrene
CPT/HCPCS: 36415; 80048; 85025

== ENCOUNTER → 2023-06-13 | Outpatient (REF) | payer MEDICARE, OTHER, SELFPAY ==
--- OUTSIDE RECORDS SUMMARY | 2023-06-13 04:50 | XMS RPT_ITS | CCD ---
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 Noe Solano Primary Care Unavail able Squires-Lekgnhb3hl, Gmbyne5z Attending Unav Radha Staley Primary Care Unavailable Squires-Yintbru8vr, Ahqdda2j Attending Unav ailcheyanne Allen, Dr. Noe Solano [...] Drug Allergy 1 Rash, skin turned red [facility] Work Phone: (16 sources) Carisoprodol; Translations: [carisoprodol] Drug Allergy 6 GI Upset MR-Rfqhyol-Vdn well 2100 Work Phone: (4 sources) Latex Drug Allergy 3 Rash [facility] (2 sources) spoarnox [Other] Propensity to adverse reactions 6 Rash [facility] (2 sources) Itraconazole; Translations: [itraconazole] Drug Allergy 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] Onset: 08-27-2010 08-27-2010 Unclassified [...] Reason Not Done Noe Allen Work Phone: LS-Gicdeshadj-OHO [facility] [address] [place] Work Phone: 08-16-2022 15:39-0400 Diastolic blood pressure 70 mm[Hg] Noe Allen Work Phone: OM-Dkiqwfcotq-BEL [facility] [address] [place] Work Phone: 08-16-2022 15:39-0400 Heart rate 55 /min Noe Allen Work Phone: LF-Vzkyahvwxe-QBG [facility] [address] [place] Work Phone: 08-16-2022 15:39-0400 SaO2% (BldA) [Mass fraction] 96 % Noe Allen Work Phone: XS-Apimosyxkg-OBC [facility] [address] [place] Work Phone: 08-16-2022 15:39-0400 Systolic blood pressure 120 mm[Hg] Noe Allen Work Phone: OF-Umeyfrhtlp-FJQ [facility] [address] [place] Work Phone: 07-14-2022 07:54-0400 Body height 167.4 cm Mei Fascione DPM Work Phone: [facility] 07-14-2022 07:54-0400 Body mass index (BMI) [Ratio] 24.27 kg/m2 Mei Fascione DPM Work Phone: [facility] 07-14-2022 07:54-0400 Body weight 68 kg Mei Fascione DPM Work Phone: [facility] 06-07-2022 11:14-0500 SaO2% (BldA) [Mass fraction] 95 % Noe Allen Work Phone: MY-Vuayeaohod-Bkvd [facility] [address] Work Phone: 04-26-2022 13:40-0500 Body height 170.[address] [facility] Work Phone: [phone] [place] [address] Work Phone: 04-26-2022 13:40-0500 Body mass index (BMI) [Ratio] 25.39 kg/m2 [facility] [place] [address] [facility] 1 Work Phone: [phone] [place] [address] Work Phone: 04-26-2022 13:40-0500 Body surface area Derived from formula 1.85 m2 [facility] [place] [address] [facility] 1 Work Phone: [phone] [place] [address] Work Phone: 04-26-2022 13:40-0500 Body weight 73.[address] [facility] Work Phone: [phone] [place] [address] Work Phone: 04-26-2022 13:40-0500 Diastolic blood pressure 78 mm[Hg] [address] [facility] Work Phone: 4(678)723-414586 [place] [address] Work Phone: 04-26-2022 13:40-0500 Heart rate 67 /min [address] [facility] Work Phone: [phone])[phone] [place] [address] Work Phone: 04-26-2022 13:40-0500 SaO2% (BldA) [Mass fraction] 95 % [address] [facility] 1 Work Phone: [phone])[phone] [place] [address] Work Phone: 04-26-2022 13:40-0500 Systolic blood pressure 146 mm[Hg] [address] [facility] 1 Work Phone: [phone])[phone] [place] [address] Work Phone: 02-10-2022 09:28-0400 Body height 167.64 cm Iveth Hale PA-C Work Phone: YL-Cjyxygjrdo-Ttqi a [facility] Work Phone: 02-10-2022 09:28-0400 Body mass index (BMI) [Ratio] 24.86 kg/m2 Iveth Linetsky PA-C Work Phone: CF-Chvsqekrhn-Rros a [facility] Work Phone: 02-10-2022 09:28-0400 Body surface area Derived from formula 1.79 m2 Iveth Linetsky PA-C Work Phone: BN-Rwiehirgvy-Erbv a [facility] Work Phone: 02-10-2022 09:28-0400 Body weight 69.85 kg Iveth Linetsky PA-C Work Phone: IQ-Mygqvawczv-Otzq a [facility] Work Phone: 02-10-2022 09:28-0400 Diastolic blood pressure 64 mm[Hg] Iveth LineCategoricalky PA-C Work Phone: MJ-Hrfmuvghno-Ckde a [facility] Work Phone: 02-10-2022 09:28-0400 Heart rate 56 /min Iveth Linetsky PA-C Work Phone: NJ-Qucmfnxsyz-Txyz a [facility] Work Phone: 02-10-2022 09:28-0400 SaO2% (BldA) [Mass fraction] 96 % Iveth LineCategoricalky PA-C Work Phone: BI-Dnzkqfaeqp-Nkrc a [facility] Work Phone: 02-10-2022 09:28-0400 Systolic blood pressure 147 mm[Hg] Iveth Linetsky PA-C Work Phone: RG-Dsrhyrzjrw-Jupe a [facility] Work Phone: 09-02-2021 14:50-0400 Diastolic blood pressure 60 mm[Hg] FILEMON ROSE MD [facility] 09-02-2021 14:50-0400 Heart rate 56 /min FILEMON ROSE MD [facility] 09-02-2021 14:50-0400 Mean blood pressure 83 mm[Hg] FILEMON ROSE MD [facility] 09-02-2021 14:50-0400 Systolic blood pressure 130 mm[Hg] FILEMON ROSE MD [facility] 09-02-2021 13:50-0400 Diastolic blood pressure 70 mm[Hg] FILEMON ROSE MD [facility] 09-02-2021 13:50-0400 Heart rate 56 /min FILEMON ROSE MD [facility] 09-02-2021 13:50-0400 Mean blood pressure 90 mm[Hg] FILEMON ROSE MD [facility] 09-02-2021 13:50-0400 Systolic blood pressure 130 mm[Hg] FILEMON ROSE MD [facility] 09-02-2021 13:20-0400 Diastolic blood pressure 68 mm[Hg] FILEMON ROSE MD [facility] 09-02-2021 13:20-0400 Heart rate 60 /min FILEMON ROSE MD [facility] 09-02-2021 13:20-0400 Mean blood pressure 83 mm[Hg] FILEMON ROSE MD [facility] 09-02-2021 13:20-0400 Systolic blood pressure 114 mm[Hg] FILEMON ROSE MD [facility] 09-02-2021 12:50-0400 Respiratory rate 16 /min FILEMON ROSE MD [facility] 09-02-2021 11:35-0400 Respiratory rate 16 /min FILEMON ROSE MD [facility] 09-02-2021 11:20-0400 Respiratory rate 16 /min FILEMON ROSE MD [facility] 09-02-2021 11:06-0400 Reason For Taking VItal Signs FILEMON ROSE MD [facility] 09-02-2021 10:50-0400 Heart rate 61 /min FILEMON ROSE MD [facility] 09-02-2021 10:45-0400 Heart rate 64 /min FILEMON ROSE MD [facility] 09-02-2021 10:40-0400 Heart rate 61 /min FILEMON ROSE MD [facility] 09-02-2021 09:00-0400 Body height 170.2 cm FILEMON ROSE MD [facility] 09-02-2021 09:00-0400 Body temperature 95.54 [degF] FILEMON ROSE MD [facility] 09-02-2021 09:00-0400 Body weight 69.9 kg FILEMON ROSE MD [facility] 07-22-2021 16:12-0400 Diastolic blood pressure 70 mm[Hg] FILEMON ROSE MD [facility] 07-22-2021 16:12-0400 Heart rate 95 /min FILEMON ROSE MD [facility] 07-22-2021 16:12-0400 Respiratory rate 18 /min FILEMON ROSE MD [facility] 07-22-2021 16:12-0400 Systolic blood pressure 124 mm[Hg] FILEMON ROSE MD [facility] 07-22-2021 15:20-0400 Diastolic blood pressure 76 mm[Hg] FILEMON ROSE MD [facility] 07-22-2021 15:20-0400 Heart rate 99 /min FILEMON ROSE MD [facility] 07-22-2021 15:20-0400 Respiratory rate 18 /min FILEMON ROSE MD [facility] 07-22-2021 15:20-0400 Systolic blood pressure 128 mm[Hg] FILEMON ROSE MD [facility] 07-22-2021 14:50-0400 Diastolic blood pressure 74 mm[Hg] FILEMON ROSE MD [facility] 07-22-2021 14:50-0400 Heart rate 97 /min FILEMON ROSE MD [facility] 07-22-2021 14:50-0400 Systolic blood pressure 130 mm[Hg] FILEMON ROSE MD [facility] 07-22-2021 14:20-0400 Mean blood pressure 91 mm[Hg] FILEMON ROSE MD [facility] 07-22-2021 13:50-0400 Mean blood pressure 95 mm[Hg] FILEMON ROSE MD [facility] 07-22-2021 13:20-0400 Mean blood pressure 92 mm[Hg] FILEMON ROSE MD [facility] 07-22-2021 13:20-0400 Respiratory rate 18 /min FILEMON ROSE MD [facility] 07-22-2021 12:35-0400 Heart rate 100 /min FILEMON ROSE MD [facility] 07-22-2021 09:45-0400 Body height 170.2 cm FILEMON ROSE MD [facility] 07-22-2021 09:45-0400 Body temperature 97.16 [degF] FILEMON ROSE MD [facility] 07-22-2021 09:45-0400 Body weight 69.6 kg FILEMON ROSE MD [facility] 07-22-2021 09:45-0400 Body weight 24.03 kg/m2 FILEMON ROSE MD [facility] 07-22-2021 09:45-0400 diastolic 84 mm[Hg] FILEMON ROSE MD [facility] 07-22-2021 09:45-0400 Heart rate 127 /min FILEMON ROSE MD [facility] 07-22-2021 09:45-0400 systolic 123 mm[Hg] FILEMON ROSE MD [facility] 01-31-2017 08:07-0400 BMI (Body Mass Index) [...] Start: 03-28-2023 End: 03-29-2023 ambulatory JUVENTINO ANDERSON [facility] Start: 03-28-2023 End: 03-28-2023 Subsequent hospital visit by physician [address] Procedures Date Procedure Procedure Detail Performing Clinician Start: 03-28-2023 [facility] US ANKLE BRACHIAL INDEX (RALPH) WITHOUT [...] Mahmood Start: 10-20-2015 End: 10-21-2015 Referral to latex caster Janes Loera MD Start: 10-06-2015 End: 10-07-2015 [...] W Auto Differential panel - Blood Janes Loear MD Start: 12-16-2014 End: 09-22-2015 Chest x-ray Janes Loera MD Start: 12-16-2014 End: 12-16-2014 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 Start: 12-16-2014 End: 12-17-2014 [...] Start: 08-11-2006 CONVERTED SURGICAL PATHOLOGY [employer] Work Phone: Start: 08-02-2006 CONVERTED SURGICAL PATHOLOGY [employer] Work Phone: Cardiac catheterization JOSIAH ROSE MD Complete repair of r otator cuff FILEMON ROSE MD Decompression of spinal cord FILEMON ROSE MD Inguinal herniorrhaphy FILEMON ROSE MD Plan of Treatment Date Care Activity Detail Author Start: 10-05-2032 DTaP/Tdap/Td Vaccines (2 - Td or Tdap) DTaP/Tdap/Td Vaccines (2 - Td or Tdap) [facility] Start: 03-28-2023 FUV, Provider: Juventino Parker, Status: Pen, Time: 11:15 AM FUV, Provider: Juventino Parker , Status: Pen, Time: 11:15 AM [facility] Work Phone: Start: 03-28-2023 PVRWITHABI, Provider: [facility], Status: Pen, Time: 10:00 AM PVRWITHABI, Provider: [facility], Status: Pen, Time: 10:00 AM [facility] Work Phone: Start: 03-28-2023 End: 03-28-2023 Patient encounter procedure 03/28/2023 10:[address] [facility] [address] [place] [address] [facility] Start: 02-10-2023 Creatinine measurement Creatinine Level [facility] Start: 02-10-2023 Potassium measurement Potassium Level [facility] Start: 12-16-2022 Influenza vaccination Influenza Vaccine (#1) [facility] Start: 10-04-2022 FUV, Provider: Juventino Parker, Status: Pen, Time: 3:00 PM FUV, Provider: Juventino Parker , Status: Pen, Time: 3:00 PM [facility] Work Phone: Start: 10-04-2022 PVRWITHABI, Provider: [facility], Status: Pen, Time: 2:00 PM PVRWITHABI, Provider: [facility], Status: Pen, Time: 2:00 PM [facility] Work Phone: Start: 09-27-2022 FUV, Provider: Juventino Parker, Status: Pen, Time: 10:30 AM FUV, Provider: Juventino Parker , Status: Pen, Time: 10:30 AM [facility] Work Phone: Start: 09-27-2022 PVRWITHABI, Provider: [facility], Status: Pen, Time: 9:00 AM PVRWITHABI, Provider: [facility], Status: Pen, Time: 9:00 AM [facility] Work Phone: Start: 08-16-2022 FUV, Provider: Juventino Parker, Status: Pen, Time: 3:00 PM FUV, Provider: Juventino Parker , Status: Pen, Time: 3:00 PM [facility] Work Phone: Start: 08-16-2022 PVRWITHABI, Provider: [facility], Status: Pen, Time: 2:00 PM PVRWITHABI, Provider: [facility], Status: Pen, Time: 2:00 PM [facility] Work Phone: Start: 07-26-2022 FUV, Provider: Juventino Parker, Status: Pen, Time: 2:45 PM FUV, Provider: Juventino Parker , Status: Pen, Time: 2:45 PM [facility]-Baszziwkew-[facility]kn[facility] [address] Work Phone: Start: 07-26-2022 PVRWITHABI, Provider: [facility], Status: Pen, Time: 2:00 PM PVRWITHABI, Provider: [facility], Status: Pen, Time: 2:00 PM ZN-Qeeubhyqsf-Lpnoxy d [address] Work Phone: Start: 06-21-2022 FUV, Provider: Juventino Parker, Status: Pen, Time: 10:30 AM FUV, Provider: Juventino Parker , Status: Pen, Time: 10:30 AM [facility] Work Phone: Start: 06-21-2022 PVRWITHABI, Provider: [facility], Status: Pen, Time: 9:00 AM PVRWITHABI, Provider: [facility], Status: Pen, Time: 9:00 AM [facility] Work Phone: Start: 06-07-2022 FUV, Provider: Juventino Parker, Status: Pen, Time: 11:00 AM FUV, Provider: Juventino Parker , Status: Pen, Time: 11:00 AM [facility] Work Phone: Start: 06-07-2022 VNINSUFFBI, Provider: [facility], Status: Pen, Time: 9:00 AM VNINSUFFBI, Provider: [facility], Status: Pen, Time: 9:00 AM [facility] Work Phone: Start: 04-26-2022 NPV, Provider: Juventino Parker, Status: Pen, Time: 1:00 PM NPV, Provider: Juventino Parker , Status: Pen, Time: 1:00 PM [facility] Work Phone: Start: 04-26-2022 PVRWITHABI, Provider: [facility], Status: Pen, Time: 12:00 PM PVRWITHABI, Provider: [facility], Status: Pen, Time: 12:00 PM [facility] Work Phone: Start: 03-30-2022 COVID-19 Vaccine (3 - Pfizer series) COVID-19 Vaccine (3 - Pfizer series) [facility] Start: 03-30-2022 COVID-19 Vaccine (4 - Pfizer series) COVID-19 Vaccine (4 - Pfizer series) [facility] Start: 07-28-2021 Glaucoma screening Diabetes: Retinopathy Screening [facility] Start: 12-17-2019 Influenza vaccination INFLUENZA (#1) [facility] Start: 10-08-2018 DIABETES SCREEN DIABETES SCREEN [facility] Start: 08-03-2017 End: 08-03-2017 Appointment Appointment [facility] Work Phone: Start: 01-31-2017 End: 01-31-2017 *Hepatic Function Panel *Hepatic Function Panel [facility] Work Phone: Start: 01-31-2017 End: 01-31-2017 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 [facility] Work Phone: Start: 01-31-2017 End: 01-31-2017 Follow Up Appt 6 months Follow Up Appt 6 months [facility] Work Phone: Start: 01-31-2017 End: 01-31-2017 Lipid panel [AGGREGATE] *Lipid Profile CC PCP [facility] Work Phone: Start: 01-31-2017 End: 01-31-2017 Appointment Appointment [facility] Work Phone: Start: 07-19-2016 End: 07-19-2016 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 [facility] Work Phone: Start: 07-19-2016 End: 07-19-2016 Follow Up Appt 6 months Follow Up Appt 6 months [facility] Work Phone: Start: 03-23-2016 End: 09-25-2015 *Hepatic Function Panel *Hepatic Function Panel [facility] Work Phone: Start: 03-23-2016 End: 09-25-2015 Lipid panel [AGGREGATE] *Lipid Profile CC PCP [facility] Work Phone: Start: 02-18-2016 Pneumococcal Vaccine: 65+ Years (2 - PPSV23 or PCV20) Pneumococcal Vaccine: 65+ Years (2 - PPSV23 or PCV20) [facility] Start: 01-19-2016 End: 01-19-2016 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 [facility] Work Phone: Start: 01-19-2016 End: 01-19-2016 Follow Up Appt 6 months Follow Up Appt 6 months [facility] Work Phone: Start: 10-20-2015 End: 01-15-2016 Cardiac Rehab Cardiac Rehab [address] [place], [address] [facility] Work Phone: Start: 10-20-2015 End: 07-19-2016 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 [facility] Work Phone: Start: 10-20-2015 End: 07-19-2016 Follow Up Appt 3 months Follow Up Appt 3 months [facility] Work Phone: Start: 10-06-2015 End: 10-07-2015 Left Heart Cath Left Heart Cath [facility] Work Phone: Start: 09-22-2015 End: 09-23-2015 *BMP *BMP [facility] Work Phone: Start: 09-22-2015 End: 09-23-2015 *CBC with Differential *CBC with Differential [facility] Work Phone: Start: 09-22-2015 End: 09-23-2015 *Hepatic Function Panel *Hepatic Function Panel [facility] Work Phone: Start: 09-22-2015 End: 09-23-2015 BNP *Brain Natriuretic Peptide BNP [facility] Work Phone: Start: 09-22-2015 End: 09-22-2015 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 [facility] Work Phone: Start: 09-22-2015 End: 09-23-2015 Ecg routine ecg w/least 12 lds w/i&r EKG (In office) [facility] Work Phone: Start: 09-22-2015 End: 09-22-2015 Follow Up Appt 1 month Follow Up Appt 1 month [facility] Work Phone: Start: 09-22-2015 End: 09-23-2015 Lipid panel [AGGREGATE] *Lipid Profile CC PCP [facility] Work Phone: Start: 09-22-2015 End: 09-22-2015 Nuclear stress test -Lexiscan Nuclear stress test -Lexiscan [facility] Work Phone: Start: 06-04-2015 End: 06-04-2015 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 [facility] Work Phone: Start: 06-04-2015 End: 06-04-2015 Follow Up Appt 6 months Follow Up Appt 6 months [facility] Work Phone: Start: 04-22-2015 Zoster Vaccines (2 of 3) Zoster Vaccines (2 of 3) [facility] Start: 02-24-2015 End: 06-04-2015 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 [facility] Work Phone: Start: 01-21-2015 End: 01-21-2015 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 [facility] Work Phone: Start: 01-21-2015 End: 01-21-2015 Follow Up Appt 1 month Follow Up Appt 1 month [facility] Work Phone: Start: 12-31-2014 End: 09-23-2015 *Hepatic Function Panel *Hepatic Function Panel [facility] Work Phone: Start: 12-31-2014 End: 09-23-2015 Lipid panel [AGGREGATE] *Lipid Profile CC PCP [facility] Work Phone: Start: 12-16-2014 End: 12-16-2014 *BMP *BMP [facility] Work Phone: Start: 12-16-2014 End: 12-16-2014 CBC W Auto Differential panel - Blood *CBC without Diff [facility] Work Phone: Start: 12-16-2014 End: 09-22-2015 Chest x-ray X-Ray, Chest, PA & Lateral [facility] Work Phone: Start: 12-16-2014 End: 12-16-2014 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 [facility] Work Phone: Start: 12-16-2014 End: 12-16-2014 Ecg routine ecg w/least 12 lds w/i&r EKG (In office) [facility] Work Phone: Start: 12-16-2014 End: 12-16-2014 Follow Up Appt 6 weeks Follow Up Appt 6 weeks [facility] Work Phone: Start: 12-16-2014 End: 12-16-2014 INR Coag RelTime (PPP) *PT/INR [facility] Work Phone: Start: 12-16-2014 End: 12-16-2014 Left Heart Cath Left Heart Cath [facility] Work Phone: Start: 11-27-2014 End: 11-27-2014 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 [facility] Work Phone: Start: 11-27-2014 End: 11-27-2014 Ecg routine ecg w/least 12 lds w/i&r EKG (In office) [facility] Work Phone: Start: 11-27-2014 End: 11-27-2014 Follow Up Appt 6 months Follow Up Appt 6 months [facility] Work Phone: Start: 05-30-2014 End: 06-27-2014 *Hepatic Function Panel *Hepatic Function Panel [facility] Work Phone: Start: 05-30-2014 End: 05-30-2014 Follow Up Appt 6 months Follow Up Appt 6 months [facility] Work Phone: Start: 05-30-2014 End: 06-27-2014 Lipid panel [AGGREGATE] *Lipid Profile CC PCP [facility] Work Phone: Start: 05-30-2014 End: 05-30-2014 MMM MMM [facility] Work Phone: Start: 12-20-2013 End: 12-20-2013 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 [facility] Work Phone: Start: 12-20-2013 End: 12-20-2013 Follow Up Appt 6 months Follow Up Appt 6 months [facility] Work Phone: Start: 10-15-2013 End: 06-27-2014 *Hepatic Function Panel *Hepatic Function Panel [facility] Work Phone: Start: 10-15-2013 End: 06-27-2014 Lipid panel [AGGREGATE] *Lipid Profile CC PCP [facility] Work Phone: Start: 09-27-2013 End: 09-27-2013 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 [facility] Work Phone: Start: 09-27-2013 End: 09-27-2013 Follow Up Appt 3 months Follow Up Appt 3 months [facility] Work Phone: Start: 09-24-2013 End: 11-27-2014 Vascular Surgery Vascular Surgery Filemon Rose MD, [facility] [address] , [address], [address] [facility] Work Phone: Start: 08-30-2013 End: 11-27-2014 Nuclear stress test -adenosine Nuclear stress test -adenosine [facility] Work Phone: Start: 07-02-2013 End: 07-02-2013 Follow Up Appt 3 months Follow Up Appt 3 months [facility] Work Phone: Start: 07-02-2013 End: 07-02-2013 MMM MMM [facility] Work Phone: Start: 04-17-2013 End: 04-22-2013 *Hepatic Function Panel *Hepatic Function Panel [facility] Work Phone: Start: 04-17-2013 End: 04-22-2013 Lipid panel [AGGREGATE] *Lipid Profile CC PCP [facility] Work Phone: Start: 12-14-2012 End: 12-14-2012 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 [facility] Work Phone: Start: 12-14-2012 End: 12-14-2012 Follow Up Appt 6 months Follow Up Appt 6 months [facility] Work Phone: Start: 07-16-2012 End: 10-15-2012 *Hepatic Function Panel *Hepatic Function Panel [facility] Work Phone: Start: 07-16-2012 End: 10-15-2012 Lipid panel [AGGREGATE] *Lipid Profile [facility] Work Phone: Start: 06-15-2012 End: 06-15-2012 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 [facility] Work Phone: Start: 06-15-2012 End: 06-15-2012 Follow Up Appt 6 months Follow Up Appt 6 months [facility] Work Phone: Start: 02-21-2012 End: 02-21-2012 24 hour holter monitor 24 hour holter monitor [facility] Work Phone: Start: 02-21-2012 End: 03-01-2012 BNP *Brain Natriuretic Peptide BNP [facility] Work Phone: Start: 02-21-2012 End: [...] 6 months Follow Up Appt 6 months [facility] Work Phone: Start: 08-07-1999 ADVANCE DIRECTIVE DISCUSSION ADVANCE DIRECTIVE DISCUSSION [facility] Start: 08-07-1999 PNEUMOVAX AGE 65 AND OVER WITH 5YR LOOKBACK (#1) PNEUMOVAX AGE 65 AND OVER WITH 5YR LOOKBACK (#1) [facility] Start: 1984 SHINGRIX VACCINE (1 of 2) SHINGRIX VACCINE (1 of 2) [facility] Start: 1953 Urine microalbumin profile DTAP,TDAP,TD (1 - Tdap) [facility] Start: 1953 Urine screening for protein Diabetes: Urine Protein Screening [facility] Start: 1944 Diabetic foot examination Diabetes: Foot Exam [facility] Start: 1934 Echocardiography Echocardiogram [facility] Start: 1934 Hemoglobin A1c measurement Diabetes: Hemoglobin A1C [facility] Start: 1934 Lipid panel Lipid Panel [facility] Start: 1934 Medicare Annual Wellness Visit Medicare Annual Wellness Visit (AWV) [facility] Patient Education [facility] Work Phone: Vascular US ankle br achial index (RALPH) without exercise Vascular US ankle brachial index (RALPH) without exercise [facility] Ultrasound Routine Peripheral vascular disease, unspecified (CMS/HCC) 03/28/2023 10:[address] [facility] Work Phone: Immunizations Immunization Date Immunization Notes Care Provider Fa salvatore 02-02-2022 Pfizer COVID-19 Vac Bivalent 30 MCG/0.3ML Intramuscular Suspension Iveth Linetsky PA-C Work Phone: AY-Pkfhsquxqy-Wuaty [facility] Work Phone: 02-01-2022 influenza virus vaccine, unspecified formulation Mei Hoover DPM Work Phone: [facility] Work Phone: 05-12-2020 SARS-CoV-2 mRNA (tozinameran) vaccine FILEMON ROSE MD [facility] 04-21-2020 SARS-CoV-2 mRNA (tozinameran) vaccine FILEMON ROSE MD [facility] 01-30-2019 influenza virus vaccine, unspecified formulation FILEMON ROSE MD [facility] 01-30-2019 influenza, seasonal, injectable Iveth Linetsky PA-C Work Phone: US-Paboruzcye-Bkmpv [facility] Work Phone: 02-05-2018 influenza, seasonal, injectable Iveth Linetsky PA-C Work Phone: CQ-Wdlhkcpbeo-Aegam [facility] Work Phone: 02-23-2017 influenza, injectabl e, quadrivalent, contains preservative Iveth Linetsky PA-C Work Phone: MQ-Ntfkqidoeb-Nypej [facility] Work Phone: 12-24-2015 influenza, seasonal, injectable Iveth Linetsky PA-C Work Phone: RB-Qkmavkjupo-Uudzw [facility] Work Phone: 12-24-2015 pneumococcal conjuga te vaccine, 13 valent FILEMON ROSE MD [facility] 02-25-2015 zoster vaccine, live FILEMON TELLES MD [facility] 01-23-2015 influenza, seasonal, injectable Iveth Linetsky PA-C Work Phone: JS-Tbeppqmdko-Xpgzl [facility] Work Phone: 02-20-2014 influenza, seasonal, injectable Iveth Linetsky PA-C Work Phone: PA-Nnzmsbvyor-Hrmxz [facility] Work Phone: 01-25-2013 influenza, seasonal, injectable Iveth Linetsky PA-C Work Phone: ZT-Sqyjeocble-Jgzxt [facility] Work Phone: 02-09-2012 influenza, seasonal, injectable Iveth Linetsky PA-C Work Phone: GB-Fvwazmyrwm-Vaons [facility] Work Phone: 02-09-2012 TD(adult) unspecifie d formulation Iveth Linetsky PA-C Work Phone: WO-Tiftusaigj-Ehxji [facility] Work Phone: 01-22-2010 influenza virus vaccine, whole virus Iveth Linetsky PA-C Work Phone: HX-Rvhyaqljku-Gpqpe [facility] Work Phone: 04-15-2009 novel lxobmeghj-Q7Z6-13, preservative-free, injectable Iveth Linetsky PA-C Work Phone: BG-Cocglrpcgi-Nucnk [facility] Work Phone: 02-06-2009 influenza virus vaccine, whole virus Iveth Linetsky PA-C Work Phone: BI-Ympizqcxhv-Smgwl [facility] Work Phone: 02-15-2008 influenza virus vaccine, whole virus Iveth Linetsky PA-C Work Phone: GZ-Yuywpxdune-Stgle [facility] Work Phone: 02-13-2007 influenza virus vaccine, whole virus Iveth Hale PA-C Work Phone: OD-Unxozezelu-WkpifCamelia PEÑA Work Phone: Payers Date Payer Category Payer Unknown 2022 Unknown [id number] 2002 Private Health Insurance [facility] IN[facility]MNITY [id number] 2002-Present Indemnity [id number] 1999 Medicare MEDICARE MEDICAR E B [id number] 1999-Present [place] [id number] 1999 Medicare [id number] 1999 Medicare MEDICARE MEDICAR E PART A AND B [id number] 1999-Present [address] [place] [address] [id number] 1934 Unknown [id number] 1934 Unknown [id number] .[id number] 1934 Unknown [id number] .[id number] 1934 Unknown [id number] .1068 1934 Unknown [id number] .1068 1934 Unknown [id number] .1068 1934 Unknown [id number] .356 1934 Unknown [id number] .356 1934 Unknown [id number] [id number] .356 1934 Unknown [id number] .356 1934 Unknown [id number] .1243 Social History Date Type Detail Facility Start: 07-10-2006 End: 10-17-2018 Tobacco smoking status SDIS Never smoker [facility] Start: 07-10-2006 Alcohol intake Current drinke r of alcohol (finding) [facility] Start: 1935 Sex Assigned At Not on file [facility] Sex Assigned At Sex [facility] Wine Consumption (1 Glasses/Day) Wine Consumption (1 Glasses/Day) JP-Zcsfbjokyo-MVW Jyoti Bertrand 1500 DO Work Phone: Tobacco smoking stat [facility] Tobacco smoking consumption unknown [facility] Work Phone: Gender identity Not on file [facility] Work Phone: Start: 03-18-2023 End: 03-28-2023 Exposure to SARS-CoV-2 (event) Not sure [facility] NEGATED: Highlighted row - - GX-Uxskpfc-Zmrcmjm 2100 Work Phone: Functional Status Date Assessment Result Facility 09-02-2021 Functional Status [facility] 07-22-2021 [facility] 07-22-2021 [facility] NEGATED: Highlighted row Functional performance Functional status health issues are not documented Disease HU-Eiqhmzc-Eumxroa 2100 Work Phone: Mental Status Date Assessment Result Facility 09-02-2021 [facility]: Highlighted row Cognitive function [Interpretation] Cognitive status health issues are not documented Disease TR-Euurbsc-Ujrykpr 2100 Work Phone: Clinical Notes 07-22-2021 to [...] bone exposed (L97.524) Surgeon: Mei Hoover Resident/Fellow/Other Applications Programmer: None of these were associated with this [...] infection. He is currently residing at the [facility]. He had recent vascular intervention with Dr. [...] This was performed (more content not included)... [facility] 07-14-2022 Note History & Physical R eviewed: [...] Last Updated: 14-Jul-2022 08:26 by Mei Hoover) [facility] 07-14-2022 Miscellaneous Notes PROCEDURE DETAILS Preoperative Diagnosis: left leg ulcer with subcutaneous tissue (L97.922) Left 2nd toe ulcer with bone exposed (L97.524) Postoperative Diagnosis: left leg ulcer with subcutaneous tissue (L97.922) Left 2nd toe ulcer with bone exposed (L97.524) Surgeon: Mei Hoover Resident/Fellow/Other Applications Programmer: None of these were associated with this [...] infection. He is currently residing at the [facility] in [place]. He had recent vascular intervention with Dr. [...] and intact until follow-up next week at [facility] with Dr. Hoover. The patient will further be transferred upon continued stability back to the [facility]. Electronic orders placed. Continue nutritional supplementation to optimize healing. To continue to follow-up with vascular specialist and to continue on anticoagulation medication. Mei Hoover DPM FACFAS [facility] Attestation: Note Completion: Attending Attestation I performed the procedure without a resident Electronic Signatures: Mei Hoover) (Signed 15-Jul-2022 09:18) Authored: Post-Operative Note, Chart Review, Note Completion Last Updated: 15-Jul-2022 09:18 by Mei Hoover) documented in this encounter [facility] Work Phone: 07-14-2022 Note Formatting of this n ote is different from the original. PROCEDURE DETAILS Preoperative Diagnosis: left leg ulcer with subcutaneous tissue (L97.922) Left 2nd toe ulcer with bone exposed (L97.524) Postoperative Diagnosis: left leg ulcer with subcutaneous tissue (L97.922) Left 2nd toe ulcer with bone exposed (L97.524) Surgeon: Mei Hoover Resident/Fellow/Other Applications Programmer: None of these were associated with this [...] infection. He is currently residing at the [facility]. He had recent vascular intervention with Dr. [...] and intact until follow-up next week at [facility] with Dr. Hoover. The patient will further be transferred upon continued stability back to the [facility]. Electronic orders placed. Continue nutritional supplementation to optimize healing. To continue to follow-up with vascular specialist and to continue on anticoagulation medication. MIGUEL Ya [facility] Attestation: Note Completion: Attending Attestation I performed the procedure without a resident Electronic Signatures: Mei Hoover) (Signed 15-Jul-2022 09:18) Authored: Post-Operative Note, Chart Review, Note Completion Last Updated: 15-Jul-2022 09:18 by Mei Hoover) [facility] Work Phone: 07-14-2022 History and physical [...] Last Updated: 14-Jul-2022 08:26 by Mei Hoover) [facility] Work Phone: 07-14-2022 History and physical [...] by Mei Hoover) documented in this encounter [facility] Work Phone: 03-22-2022 Note Clinical Event: Clinical Event Note: TopicEndovascular Post-Procedure Note Details Fei Oleary is an 86 yo male, a resident of [facility], with PMH of A-fib (not on [...] the Lt with Dr Filemon Botello: 07/22/21 DIRECTOR OF PATIENT FINANCIAL SERVICES/DCB of L SFA/pop, 09/02/21 DIRECTOR OF PATIENT FINANCIAL SERVICES/DCB of Lt PT/TPT/pop (images in PACS), who [...] months. He is being managed by the [facility] Dr Jad Hall/Cody Collier CNP. [...] today per pt/family request. Today pt underwent DIRECTOR OF PATIENT FINANCIAL SERVICES of Lt. EIA, PT and DIRECTOR OF PATIENT FINANCIAL SERVICES/DCB/stenting of Lt. SFA, POP, TPT. Access: via right (6Fr sheath) and left (7Fr sheath) groin with angioseal; retrograde DP access with TR band. Plan - 2 hrs bedrest - continue with Plavix and Atorvastatin - Start ASA Rx sent to local pharmacy - 1 month f/u with RALPH/TBI Electronic Signatures: Aurora Smiley (SENIOR SOFTWARE QA ANALYST-INSOLE CEMENTER) (Signed 22-Mar-2022 15:35) Authored: Clinical Event Note Last Updated: 22-Mar-2022 15:35 by Aurora Smiley (SENIOR SOFTWARE QA ANALYST-INSOLE CEMENTER) [facility] 03-22-2022 Note Clinical Note - Phar pamela v2: Education: Document TopicMedication Education QhwjsctaxiU1D: No, patient is SNF Sources used to confirm home medication list: Patient interview, senior care ([facility] Gerson Allen), Chart review (CAMMIE Hitchcock, Cardio Note 02/10). Aspirin: not prescribed Statin: atorvastatin 20 mg P2Y12 inhibitor: clopidogrel 75 mg daily Anticoagulant: not prescribed Comments/other: Medication history was obtained through fax medication list sent by [facility]. Patient has dementia. Spoke to nurse who said all medication last doses were taken last night. Patient did not take any medication doses this morning. Acetaminophen and omeprazole have been held 2 days. Medication reconciliation complete Please reach out via [employer] for questions Lali Vázquez, PharmD, [facility] PGY1 Resident [facility] Is This Intervention Medication Reconciliation Relatedyes Time Gctqnwjp23 - 60 minutes Additional NotesDrug Name: atorvastatin [...] Drug Reaction: Unknown Electronic Signatures: Gisell Callaway ([facility]) (Signed 22-Mar-2022 10:42) Co-Signer: Dmitri Allergy Lali Vázquez ([facility]) (Signed 22-Mar-2022 09:58) Authored: Education, Allergy Last Updated: 22-Mar-2022 10:42 by Gisell Callaway ([facility]) [facility] 03-22-2022 Note History of Present I llness: [...] the Lt with Dr Filemon Botello: 07/22/21 DIRECTOR OF PATIENT FINANCIAL SERVICES/DCB of L SFA/pop, 09/02/21 DIRECTOR OF PATIENT FINANCIAL SERVICES/DCB of Lt PT/TPT/pop (images in PACS), who is self referred to us for consideration for further treatment in the setting of nonhealing painful Lt 2nd toe ulcer and Lt moser ulcer. PMHx: HTN CAD PAD Venous insufficiency PSHx: DIRECTOR OF PATIENT FINANCIAL SERVICES of bilateral LE PCI Home Medication Review: [...] the note. I personally evaluated the patient [id number] Electronic Signatures: Bejna Ricketts) (Signed 24-Mar-2022 23:00) Authored: KARYN, Note Completion Co-Signer: History of Present Illness, Home Medication Review, Impression/Procedure, Physical Exam, Consent Fortino Ng (Resident)) (Signed 22-Mar-2022 08:04) Authored: History of Present Illness, Home Medication Review, Impression/Procedure, Physical Exam, Consent Last Updated: 24-Mar-2022 23:00 by Benja Ricketts) [facility] 09-02-2021 Hospital Discharge instructions Patient Education 09/02/2021 [...] until you are awake and alert. Take ljzk-gpl-tzbedix and prescription medicines only as told by [...] 01/22/2014 Document Revised: 03/16/2018 Document Reviewed: 07/23/2016 [employer] Patient Education 2020 Facile System. Follow Up Care 08/24/2021 11:55:08 With:FILEMON ROSE MD, [facility], Surgery, Vascular Surgeons Address: [facility] [address] [place] [id number] When: Unknown Comments:Follow-up as scheduled [facility] 07-22-2021 Hospital Discharge instructions Patient Education [...] until you are awake and alert. Take mrzv-ilq-jymreed and prescription medicines only as told by [...] 01/22/2014 Document Revised: 03/16/2018 Document Reviewed: 07/23/2016 [employer] Patient Education 2020 Facile System. Follow Up Care 07/01/2021 16:19:17 With:RADHA GILL MD Address: [address] [place] [phone]- When: Unknown [facility] 07-22-2021 History of Present illness Narrative 86 yo male, a resident of [facility], with PMH of A-fib (not on [...] the Lt with Dr Filemon Botello: 07/22/21 DIRECTOR OF PATIENT FINANCIAL SERVICES/DCB of L SFA/pop, 09/02/21 DIRECTOR OF PATIENT FINANCIAL SERVICES/DCB of Lt PT/TPT/pop (images in PACS), who [...] admits to SOB on exertion. Denies palpitations. DY-Txiwzwmknm-Ebszp to-BBB Work Phone: Chief complaint Narrative - Reported FEI OLEARY is being seen for a cardiovascular evaluation.FEI OLEARY is being seen for peripheral vascular disease. RA-Jiydddkikt-Oerrt [facility] Work Phone: Evaluation + Plan note No data available for this section [facility] documented in this encounter [facility] Work Phone: Evaluation note* Diagnosis Peripheral vascular disease, unspecified (CMS/HCC) Peripheral vascular disease, unspecified documented in this encounter [facility] Work Phone: History of Present illness [...] visit his wounds are slowly healing well. [employer] Work Phone: History of Present illness Narrative* [...] visit his wounds are slowly healing well. HD-Oglfrvgueb-[facility]cho[facility] Work Phone: Progress note No data available for this section [facility] Family History No Family History Records [...] index (RALPH) without exercise Juventino Negron MD [address] [place] [address] [facility], [address] [address] Referral ID Status Reason Start Date Expiration Date Visits Requested Visits Authorized [id number] Authorized Perform Procedure 12/31/2022 06/29/2023 1 1 Additional Source Comments Source Comments (unrecognize d section and content) In the event this informatio n is protected by the Federal Confidentiality of Alcohol and Drug Abuse Patient Records regulations: The Federal rules restrict any use of the information to criminally investigate or prosecute any alcohol or drug abuse patient.[facility] (unrecognized sect ion and content) No Status Records FoundNo Status Records FoundNo Status Records FoundNo Status Records FoundNo Status Records FoundNo Status Records FoundNo Status Records Found INFORMATION SOURCE (unrecogn ized section and content) DATE CREATED AUTHOR AUTHOR'S ORGANIZ ATION 09/04/2021 [facility] DATE CREATED AUTHOR AUTHOR'S ORGANIZ ATION 02/12/[address] [facility] DATE CREATED AUTHOR AUTHOR'S ORGANIZ ATION 08/18/2022 [facility] DATE CREATED AUTHOR AUTHOR'S ORGANIZ ATION 08/20/2022 [employer] DATE CREATED AUTHOR AUTHOR'S ORGANIZ ATION 12/14/2022 [facility] DATE CREATED AUTHOR AUTHOR'S ORGANIZ ATION 03/30/2023 [facility] Care Team (unrecognized sect ion and content) Braille Operator Relationship Specialty Start Date End Date Noe Allen MD PCP - General 06/07/22 Reason for Visit (unrecogniz ed section and content) Specialty Diagnoses / Procedures Referred By Contac t Referred To Contact Cardiology Diagnoses Peripheral vascular disease, unspecified (CMS/HCC) Procedures Vascular US ankle brachial index (RALPH) without exercise Juventino Negron MD [address] [place] [id number] Referral ID Status Reason Start Date Expiration Date Visits Requested Visits Authorized [id number] Authorized Perform Procedure 12/31/2022 06/29/2023 1 1 [...] BE BASED ON THE PRIMARY CLINICAL RECORDS. [facility] [employer] [facility]. provides no warranty or guarantee of the accuracy or completeness of information in this document.
[2023-06-13 08:30] LABS: Absolute Lymphocyte Count 0.86 X10^3/uL (0.83-4.51); Absolute Neutrophil Count 3.6 X10^3/uL (2.0-7.7); Basophil# 0.04 X10^3/uL; Basophil% 0.7 % (0-1); Eosinophil# 0.22 X10^3/uL; Hematocrit 38.9 % (40-54); Hemoglobin 12.4 g/dL (13.0-16.5); Lymphocyte # 0.86 X10^3/ul (0.83-4.51); Lymphocyte % 15.7 % (19-41); Mean Corp Hgb Conc 31.9 g/dL (32-36); Mean Corpuscular Hgb 33.5 pg (27.0-32.0); Mean Corpuscular Volume 105.1 fL (80-94); Mean Platelet Vol. 9.7 fl (6.2-12.0); Monocyte# 0.74 X10^3/uL; Monocyte% 13.5 % (0-10); NRBC Flagged by Analyzer 0 % (0-5); Neutrophil # 3.59 X10^3/uL (2.7-7.7); Neutrophil % 65.7 % (47-70); Platelet Count 223 K/mm3 (150-450); RBC Distribution Width CV 14.3 % (11.6-14.6); RBC Distribution Width SD 55.7 fl (35.1-43.9); White Blood Count 5.5 K/mm3 (4.4-11.0)
[2023-06-13 10:40] LABS: AST(SGOT) 20 U/L (15-37); Alanine Aminotransfer ALT/SGPT 16 U/L (16-61); Albumin, Serum 2.7 g/dL (3.2-5.0); Alkaline Phosphatase 96 U/L (45-117); Anion Gap 4 (5-15); BUN 18 mg/dL (7-18); BUN/Creat Ratio 19.8 RATIO (10-20); Bilirubin, Direct 0.12 mg/dL (0.00-0.30); Calcium,Total 8.8 mg/dL (8.5-10.1); Chloride 111 mmol/L (98-107); Cholesterol 129 mg/dL (200); Creatinine, Serum 0.91 mg/dL (0.70-1.30); EST Glomerular Filtration Rate 84 mL/min (>60); Est Glom Filt Rate - Afr Amer 101 mL/min (>60); Globulin 3.4 g/dL (2.2-4.2); Glucose 85 mg/dL (74-106); High Density Lipoprotein 38 mg/dL; Potassium 3.8 mmol/L (3.5-5.1); Protein, Total 6.1 g/dL (6.4-8.2); Sodium Level 144 mmol/L (136-145); Triglycerides 126 mg/dL; Very Low Density Lipoprotein 25 mg/dL (5-40)
[2023-06-13 13:47] LABS: Hemoglobin A1c 5.7 % (3.8-5.6)
== END ==
LOC: OLS.WHLEAS 05:00
PROVIDERS: PCP Internal Medicine; Visit Provider Internal Medicine
DX: E87.6 Hypokalemia (principal); E11.51 Type 2 diabetes mellitus with diabetic peripheral angiopathy without gangrene; E11.43 Type 2 diabetes mellitus with diabetic autonomic (poly)neuropathy; E11.621 Type 2 diabetes mellitus with foot ulcer; G47.33 Obstructive sleep apnea (adult) (pediatric)
CPT/HCPCS: 36415; 80048; 80061; 80076; 83036; 85025

== ENCOUNTER → 2023-07-11 | Outpatient (REF) | payer MEDICARE, OTHER, SELFPAY ==
[2023-07-11 09:02] LABS: Absolute Lymphocyte Count 0.79 X10^3/uL (0.83-4.51); Basophil# 0.03 X10^3/uL; Basophil% 0.5 % (0-1); Eosinophil# 0.29 X10^3/uL; Eosinophils% 4.8 % (0-5); Hematocrit 38.2 % (40-54); Hemoglobin 12.2 g/dL (13.0-16.5); Lymphocyte # 0.79 X10^3/ul (0.83-4.51); Lymphocyte % 13.1 % (19-41); Mean Corp Hgb Conc 31.9 g/dL (32-36); Mean Corpuscular Hgb 33.2 pg (27.0-32.0); Mean Corpuscular Volume 103.8 fL (80-94); Mean Platelet Vol. 9.6 fl (6.2-12.0); NRBC Flagged by Analyzer 0 % (0-5); Neutrophil # 3.96 X10^3/uL (2.7-7.7); Neutrophil % 65.9 % (47-70); Platelet Count 261 K/mm3 (150-450); RBC Distribution Width CV 14.1 % (11.6-14.6); RBC Distribution Width SD 53.5 fl (35.1-43.9); Red Blood Count 3.68 M/mm3 (4.6-6.2)
[2023-07-11 09:15] LABS: Anion Gap 6 (5-15); BUN 15 mg/dL (7-18); BUN/Creat Ratio 17.4 RATIO (10-20); Chloride 108 mmol/L (98-107); Creatinine, Serum 0.86 mg/dL (0.70-1.30); EST Glomerular Filtration Rate 89 mL/min (>60); Est Glom Filt Rate - Afr Amer 107 mL/min (>60); Glucose 91 mg/dL (74-106); Potassium 3.7 mmol/L (3.5-5.1); Sodium Level 142 mmol/L (136-145)
== END ==
LOC: OLS.WHLEAS 05:00
PROVIDERS: PCP Internal Medicine; Visit Provider Internal Medicine
DX: E87.6 Hypokalemia (principal); E11.51 Type 2 diabetes mellitus with diabetic peripheral angiopathy without gangrene; E11.43 Type 2 diabetes mellitus with diabetic autonomic (poly)neuropathy; E11.621 Type 2 diabetes mellitus with foot ulcer; G47.33 Obstructive sleep apnea (adult) (pediatric)
CPT/HCPCS: 36415; 80048; 85025

== ENCOUNTER → 2023-07-24 | Outpatient (CLI) | payer MEDICARE, OTHER, SELFPAY ==
--- NOTE | 2023-07-24 09:58 | ADUL_ITS ---
Reason For Study: Stricture of artery Left Velocities Ext Iliac Artery, dist = 45.3 cm./sec. Common Femoral Artery, mid = 41.6 cm./sec. SFA origin, 29.6 cm/sec. SFA prox, 28.7 cm/sec. SFA prox/mid-mid, No Flow. Stent noted from SFA mid-Bianca. SFA mid, prox stent, No flow, SFA mid/distal, prox/mid stent, 22.1 cm/sec. SFA distal, mid stent, 17.6 cm/sec. Bianca, distal stent, 22.6 cm/sec. T/P Trunk, distal to stent, 28.2 cm/sec. Profunda Femoral Artery = 118.3 cm./sec. Post. Tibial Artery, prox = 19.6 cm./sec. Post Tibial Artery, mid = 16.1 cm./sec. Post Tibial Artery, dist. = 14.5 cm./sec. Peroneal A prox, No flow. Peroneal A mid, 5.6 cm/sec. Peroneal A distal, 9.4 cm/sec. TWIN prox, 7.5 cm/sec. TWIN mid, No Flow. TWIN distal, 7.2 cm/sec. Procedure Exam performed in department. /US Art Duplex Unilat Lower Ext Interpretation Summary Left femoral stent occluded. Ordering Physician: Nate Rose Referring Physician: Dennys Manley Performed By: Paradise Sahu RVT
--- NOTE | 2023-07-24 09:58 | ART_ITS ---
Reason For Study: Stricture of artery Procedure A bilateral lower extremity continuous wave Doppler with analog waveform analysis and ankle brachial indexes. Left Segmental Pressures Left brachial= 110mmHg. Left posterior tibial artery = 101mmHg. Left dorsalis pedis artery = 78mmHg. Left digit = 52 mmHg. The left dorsalis pedis waveforms are monophasic. The left posterior tibial artery waveforms are monophasic. Right Segmental Pressures Right brachial= 106mmHg. Right posterior tibial artery = 110mmHg. Right dorsalis pedis artery = 81mmHg. Right digit = 67 mmHg. The right dorsalis pedis waveforms are monophasic. The right posterior tibial artery waveforms are monophasic. Indices The right ankle brachial index by the dorsalis pedis is 0.74. The right ankle brachial index by the posterior tibial artery is 1.00. The right digital-brachial index is 0.61. The left ankle brachial index by the dorsalis pedis is 0.71. The left ankle brachial index by the posterior tibial artery is 0.92. The left digital-brachial index is 0.47. VL/Ankle Brachial Index Interpretation Summary Normal at rest with RALPH 1.0 and 0.92 with digit 0.61 and 0.47. Ordering Physician: Nate Rose Referring Physician: Dennys Manley Performed By: Paradise Sahu RVT
== END | disposition home or self-care (01) ==
LOC: CVS 09:55
PROVIDERS: PCP Internal Medicine; Referring Provider Surgery Vascular Surgery; Visit Provider Surgery Vascular Surgery
DX: I70.213 Atherosclerosis of native arteries of extremities with intermittent claudication, bilateral legs (principal); I77.1 Stricture of artery; Z48.812 Encounter for surgical aftercare following surgery on the circulatory system
CPT/HCPCS: 93922; 93926

== ENCOUNTER → 2023-08-08 | Outpatient (REF) | payer MEDICARE, OTHER, SELFPAY ==
[2023-08-08 08:38] LABS: Absolute Lymphocyte Count 0.87 X10^3/uL (0.83-4.51); Absolute Neutrophil Count 4.1 X10^3/uL (2.0-7.7); Basophil# 0.04 X10^3/uL; Basophil% 0.6 % (0-1); Eosinophil# 0.37 X10^3/uL; Eosinophils% 5.8 % (0-5); Hemoglobin 12.4 g/dL (13.0-16.5); Lymphocyte # 0.87 X10^3/ul (0.83-4.51); Lymphocyte % 13.6 % (19-41); Mean Corp Hgb Conc 31.8 g/dL (32-36); Mean Corpuscular Volume 103.7 fL (80-94); Mean Platelet Vol. 9.7 fl (6.2-12.0); Monocyte# 0.96 X10^3/uL; NRBC Flagged by Analyzer 0 % (0-5); Neutrophil # 4.11 X10^3/uL (2.7-7.7); Neutrophil % 64.5 % (47-70); Platelet Count 269 K/mm3 (150-450); RBC Distribution Width CV 14.6 % (11.6-14.6); RBC Distribution Width SD 55.4 fl (35.1-43.9); Red Blood Count 3.76 M/mm3 (4.6-6.2); White Blood Count 6.4 K/mm3 (4.4-11.0)
[2023-08-08 08:44] LABS: Anion Gap 4 (5-15); BUN 15 mg/dL (7-18); BUN/Creat Ratio 16.6 RATIO (10-20); Calcium,Total 8.8 mg/dL (8.5-10.1); Chloride 109 mmol/L (98-107); EST Glomerular Filtration Rate 84 mL/min (>60); Est Glom Filt Rate - Afr Amer 102 mL/min (>60); Glucose 98 mg/dL (74-106); Potassium 3.8 mmol/L (3.5-5.1); Sodium Level 142 mmol/L (136-145)
== END ==
LOC: OLS.WHLEAS 05:00
PROVIDERS: PCP Internal Medicine; Visit Provider Internal Medicine
DX: E87.6 Hypokalemia (principal); E11.51 Type 2 diabetes mellitus with diabetic peripheral angiopathy without gangrene; E11.43 Type 2 diabetes mellitus with diabetic autonomic (poly)neuropathy; E11.621 Type 2 diabetes mellitus with foot ulcer; G47.33 Obstructive sleep apnea (adult) (pediatric)
CPT/HCPCS: 36415; 80048; 85025

== ENCOUNTER 2023-08-30 04:02 | Emergency (ER) | payer MEDICARE, OTHER, SELFPAY ==
[2023-08-30 04:03] VITALS: BP 222/97; PULSE 55; RESP 13; TEMP 37.1; O2SAT 92; BMI 24.3
[2023-08-30 04:07] VITALS: BP 222/97; PULSE 54; RESP 14; TEMP 37.1; O2SAT 92
--- NOTE | 2023-08-30 04:17 | CT_ITS ---
EXAM: CT HEAD WITHOUT INTRAVENOUS CONTRAST CLINICAL INDICATION: altered MS, HTN TECHNIQUE: Multiple axial images were obtained of the head without intravenous contrast. This CT exam was performed using one or more of the following dose reduction techniques: automated exposure control, adjustment of the mA and/or kV according to patient size, and/or use of iterative reconstruction technique. RADIATION DOSE: Total DLP: 846.73 mGy-cm. COMPARISON: Previous cranial CT of 10/20/2022 FINDINGS: BRAIN AND EXTRA-AXIAL SPACES: Mild cortical atrophy is present with prominence of the cortical sulci, basal cisterns and sylvian fissures, unchanged. There is stable moderate dilatation of the ventricles, without midline shift; the disproportionate enlargement of the ventricles in relation to the degree of atrophy raises the possibility of communicating hydrocephalus, though these findings are stable as compared to the prior exam. Moderate symmetric diminished attenuation noted within the periventricular deep white matter tracts consistent with chronic small vessel ischemic changes. Posterior fossa structures are unremarkable. Basal cisterns are patent. Singh-white matter differentiation is preserved. BONES/JOINTS: Unremarkable. No discrete lytic or blastic abnormalities. VASCULATURE: Atherosclerotic vascular calcification is present. The middle cerebral arteries are not hyperdense. SINUSES: Unremarkable as visualized. Clear. MASTOID AIR CELLS: Unremarkable. Clear. ORBITS: Previous cataract extraction. CT/Brain/Head without Contrast IMPRESSION: No significant interval change. Atrophy and chronic small vessel ischemic changes again noted. No hemorrhage or other acute intracranial abnormality identified. Electronically Signed: Amaury Qiu MD at 5:40 EDT ,
--- NOTE | 2023-08-30 04:18 | EDS_ITS ---
HPI History of Present Illness Chief Complaint: Hypertension Informant: patient and EMS Narrative Narrative: 88-year-old male presenting from [facility] to the ER 4 AM for auditory hallucinations and high blood pressures when nurses checked it. Patient states he was hearing music. No voices. No command hallucinations. This is per him he seems insightful that they were hallucinations as he uses that word. He states he feels okay now. He does not recall having any other symptoms such as a headache, chest discomfort, dyspnea, nausea, sweating. He states he feels fine right now. He states when he went to bed he did not feel like he was sick or had any illness or other symptoms. He denies any recent head injury. He denies a headache right now. [facility] Medical History Large bowel bleed Non-smoker Atrial fibrillation Diabetes Hallucinations Dementia Gait disorder Cancer Sleep apnea Chest pain Hypertension Carpal tunnel syndrome on both sides History of non-ST elevation myocardial infarction (NSTEMI) (07/02/19) UTI (urinary tract infection) Atrial fibrillation with RVR (05/28/20) Acute diarrheal illness Acute kidney injury Pneumonia due to COVID-19 virus (03/23/20) Septic shock PAD (peripheral artery disease) Delayed wound healing Debility Nonhealing ulcer of left lower extremity with fat layer exposed Non-healing ulcer of right foot with fat layer exposed Neuropathy Rectal prolapse Right bundle branch block (RBBB) Open wound of finger of left hand Chronic pain of right heel Ulcer of right lower extremity with fat layer exposed Ulcer of right heel Peripheral arterial occlusive disease Urinary incontinence Essential (primary) hypertension Spondylolisthesis Lumbar stenosis Peripheral neuropathy 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 DDD (degenerative disc disease) GERD (gastroesophageal reflux disease) Prostate cancer Obstructive sleep apnea Hyperlipidemia Home Medications ?Medication ?Instructions ?Recorded ?Last Taken ?Type [id number] 300 mcg-K 60 1 tab PO DAILY HEALTH MAINTENANCE 02/14/18 06/30/22 History mcg-lycop 600 mcg-lutein 300 mcg tablet vitamin E 268 mg (400 unit) capsule 400 unit PO DAILY SUPPLEMENT 10/29/18 06/30/22 History duloxetine 30 mg capsule,delayed 30 mg PO DAILY DEPRESSION 03/06/19 06/30/22 History release atorvastatin 20 mg tablet 20 mg PO QHS CHOLESTEROL #90 tabs 02/24/20 03/15/23 Rx donepezil 10 mg tablet 10 mg PO DAILY DEMENTIA 06/17/21 06/30/22 History clopidogrel 75 mg tablet (Plavix) 75 mg PO 2000 BLOOD THINNER 09/21/21 06/29/22 History aspirin 81 mg tablet,delayed 81 mg PO DAILY HEART HEALTH 05/12/22 06/30/22 08:00 History release (Adult Aspirin Regimen) carbamazepine 100 mg 200 mg PO BID PAIN 05/12/22 06/30/22 History capsule,extended release [id number] Motorized wheelchair #1 ea 06/29/22 Unknown Rx acetaminophen 500 mg tablet 1,000 mg PO TID LOWER BACK PAIN 06/30/22 06/30/22 11:00 History furosemide 40 mg tablet (Lasix) 40 mg PO DAILY FLUID 06/30/22 06/30/22 History metoprolol succinate 100 mg 100 mg PO DAILY BLOOD PRESSURE 06/30/22 06/30/22 History tablet,extended release 24 hr mirtazapine 30 mg tablet 30 mg PO QHS DEPRESSION 06/30/22 06/29/22 History oxycodone-acetaminophen 5 mg-325 2 tab PO Q6H PRN PAIN 06/30/22 06/30/22 09:54 History mg tablet pantoprazole 20 mg tablet,delayed 20 mg PO DAILY GERD 06/30/22 06/30/22 06:00 History release potassium chloride 10 mEq 20 meq PO BID SUPPLEMENT 06/30/22 06/30/22 History tablet,extended release(part/cryst) ferrous sulfate 325 mg (65 mg 325 mg PO BID #60 tabs 07/06/22 Unknown Rx iron) tablet levofloxacin 750 mg tablet 750 mg PO DAILY #5 tabs 10/20/22 Unknown Rx isosorbide mononitrate 60 mg 60 mg PO DAILY #30 tabs 04/20/23 Unknown Rx tablet,extended release 24 hr memantine 14 mg capsule 14 mg PO DAILY #7 ea 05/16/23 Unknown Rx sprinkle,extended release 24hr memantine 21 mg capsule 21 mg PO DAILY #7 ea 05/16/23 Unknown Rx sprinkle,extended release 24hr memantine 28 mg capsule 28 mg PO DAILY #30 ea 05/16/23 Unknown Rx sprinkle,extended release 24hr memantine 7 mg capsule 7 mg PO DAILY #7 ea 05/16/23 Unknown Rx sprinkle,extended release 24hr lisinopril 5 mg tablet 10 mg (2 x 5 mg) PO DAILY BLOOD 08/30/23 06/30/22 Rx PRESSURE #60 tabs Allergy/AdvReac Type Severity Reaction Status Date / Time latex Allergy Unknown unknown Verified 05/16/23 08:18 carisoprodol Allergy Other Verified 05/16/23 08:18 itraconazole Allergy Other Verified 05/16/23 08:18 Family History Mother CVA (cerebral vascular accident) Sister Hypertension Surgical History History of angioplasty of peripheral vessel (10/23/13) History of back surgery History of coronary artery stent placement (10/07/15) History of coronary artery stent placement History of hernia repair History of left heart catheterization (07/02/19) History of prostatectomy History of shoulder surgery History of tonsillectomy Social History housing: intermediate Smoking Status: Never smoker alcohol intake: never substance use type: does not use caffeine: Yes Type: tea what type of physical activity do you participate in: none seatbelt use: always do you feel safe at home: Yes ROS ROS ED Constitutional Constitutional ED: Denies chills or fever(s) Eyes Eyes: Denies change in vision or diplopia ENT ENT ED: Denies rhinorrhea or sore throat Cardiovascular Cardiovascular: Denies chest pain or palpitations Respiratory/Chest Respiratory/Chest: Denies cough or dyspnea Gastrointestinal Gastrointestinal: Denies abdominal pain, diarrhea, nausea or vomiting Genitourinary Genitourinary ED: Denies dysuria or hematuria Musculoskeletal Musculoskeletal: Denies back pain or neck pain Integumentary Denies abscess or rash Neurologic Neurologic: Denies headache(s), paresthesias or weakness Psychiatric Psychiatric: Reports as per HPI and auditory hallucinations; Denies suicidal thoughts EXAM Physical Exam Const Vital Signs: 08/30/23 04:03 08/30/23 04:07 08/30/23 04:07 Temperature 98.7 F 98.7 F Temperature Source Oral Oral Pulse Rate 55 L 54 L Respiratory Rate 13 14 Respiratory Effort Respiratory Pattern Blood Pressure 222/97 H 222/97 H 222/97 H Blood Pressure Mean 138 138 138 Pulse Ox 92 92 Oxygen Delivery Method Room Air Room Air Oxygen Flow Rate (L/min) 08/30/23 04:10 08/30/23 05:07 08/30/23 05:33 Temperature 98 F Temperature Source Oral Pulse Rate 55 L Respiratory Rate 15 Respiratory Effort Normal Non-Labored Respiratory Pattern Normal Blood Pressure 186/103 H Blood Pressure Mean 130 Pulse Ox 88 88 Oxygen Delivery Method Room Air Room Air Oxygen Flow Rate (L/min) 08/30/23 05:33 Temperature Temperature Source Pulse Rate Respiratory Rate Respiratory Effort Respiratory Pattern Blood Pressure Blood Pressure Mean Pulse Ox 95 Oxygen Delivery Method Nasal Cannula Oxygen Flow Rate (L/min) 3 Positive well nourished and well developed General Appearance ED: well developed and NAD HEENT Reports moist mucous membranes normocephalic and atraumatic Eyes PERRL and EOMs intact bilaterally Neck full ROM and supple Resp normal respiratory effort and clear to auscultation bilaterally Cardio regular rate, regular rhythm and no murmurs GI non-tender and non-distended Auscultation: normoactive bowel sounds Palpation: soft Back/Spine no CVA tenderness General Back: other FROM Extremity normal to inspection Extremity Narrative: Some chronic wounds on his lower extremities without tenderness or signs of active acute infection. General Extremety ED: Negative for edema, pulses abnormal or tenderness General Extremity: Negative for edema or pulses abnormal Neuro oriented x3, CN's II-XII intact bilaterally and no sensory deficits noted Neuro Narrative: Normal speech. 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 Normal visual field exam. Can recall his age and month correctly. NIHSS 0. Sensorium / Orientation: awake and alert Motor Exam: strength 5/5 throughout Skin no rashes or lesions noted and no wounds MDM MDM MDM Narrative Medical decision making narrative: Differential includes primary [employer] etiologies such as intracranial hemorrhage given his extreme hypertension 222/97 initial measurement here, before we treated it while he was feeling better, he was 186/91 for me at the bedside. I obtained some labs are unremarkable. His troponin is within normal limits and his EKG shows ectopy and a stable right bundle branch block but no acute injury pattern. He is asymptomatic and feels well with a normal neurologic exam, even with his dementia he is able to tell me the month and his age without skipping a beat. He is very pleasant. He was sent here in the middle of the night and had a history of dementia, he simply could have been confused due to being woken up in the middle of the night. He is doing well right now. Since his blood pressure went back up to the 190s with observation we gave him a clonidine 0.2 mg and on reevaluation his blood pressure is 162/70. Although he is tolerating it well, his heart rate is around 50 at times in the high 40s. He is due for metoprolol succinate 100 mg this morning; I am going to advise that that pill be held and instead, his lisinopril 5 mg can be doubled. Lab Data Attestation: I reviewed the patient's lab results. Labs: Laboratory Results - last 24 hr 08/30/23 04:39 WBC 6.5 RBC 3.82 L Hgb 12.7 L Hct 40.5 MCV 106.0 H MCH 33.2 H MCHC 31.4 L RDW Std Deviation 57.7 H RDW Coeff of Ayesha 14.8 H Plt Count 205 MPV 9.7 Immature Gran % (Auto) 0.500 Neut % (Auto) 69.0 Lymph % (Auto) 15.0 L Mcdowell % (Auto) 11.0 H Eos % (Auto) 3.9 Baso % (Auto) 0.6 Absolute Neuts (auto) 4.5 Absolute Lymphs (auto) 0.97 Nucleated RBC % 0 Sodium 141 Potassium 4.1 Chloride 109 H Carbon Dioxide 25.0 Anion Gap 7 BUN 24 H Creatinine 1.03 Estim Creat Clear Calc 48.62 Est GFR (MDRD) Af Amer 87 Est GFR (MDRD) Non-Af 72 BUN/Creatinine Ratio 23.3 H Glucose 104 Calcium 9.4 Troponin I High Sens 52 Radiography Diagnostic Testing: Clinical Impression(s) from Imaging Studies Brain CT 08/30/23 04:17 IMPRESSION: No significant interval change. Atrophy and chronic small vessel ischemic changes again noted. No hemorrhage or other acute intracranial abnormality identified. Electronically Signed: Amaury Qiu MD at 5:40 EDT , Head CT images reviewed as well as the report which I agree with, negative for any acute, this was obtained to rule out acute [employer] etiology for his mental status change which is currently resolved. Rhythm Strip Rhythm Strip: Sinus Rhythm Rate: 60 Ectopy: PAC(s) EKG Initial EKG: Attestation: I personally reviewed and interpreted this EKG as follows: Interpretation: Sinus Rhythm, No Acute Injury Pattern and RBBB Prior EKG tracings: available for review Prior: Unchanged Discharge Plan Triage Chief Complaint: Hypertension ED Provider: Mohan Kaminski Dx/Rx/DC Orders Clinical Impression: Transient confusion, Dementia, Episode of hypertension Instructions: ED Hypertension, Established Prescriptions: Continued duloxetine 30 mg capsule,delayed release(DR/EC) 30 mg PO DAILY donepezil 10 mg tablet 10 mg PO DAILY clopidogrel [Plavix] 75 mg tablet 75 mg PO 2000 aspirin [Adult Aspirin Regimen] 81 mg tablet,delayed release (DR/EC) 81 mg PO DAILY carbamazepine 100 mg capsule, ER multiphase 12 hr 200 mg PO BID (DME) Motorized wheelchair See Rx Instructions .Route .MEDSUPPLY Qty: 1 0RF Rx Instructions: As directed memantine 7 mg capsule,sprinkle,ER 24hr 7 mg PO DAILY Qty: 7 0RF Rx Instructions: Week #1 memantine 14 mg capsule,sprinkle,ER 24hr 14 mg PO DAILY Qty: 7 0RF Rx Instructions: Week #2 memantine 21 mg capsule,sprinkle,ER 24hr 21 mg PO DAILY Qty: 7 0RF Rx Instructions: Week #3 memantine 28 mg capsule,sprinkle,ER 24hr 28 mg PO DAILY Qty: 30 6RF Rx Instructions: Week #4 and thereafter [id number] 1 EACH tablet 1 tab PO DAILY vitamin E 400 UNIT capsule 400 unit PO DAILY pantoprazole 20 mg tablet,delayed release (DR/EC) 20 mg PO DAILY oxycodone-acetaminophen 5-325 mg Tablet 2 tab PO Q6H PRN (Reason: PAIN ) mirtazapine 30 mg Tablet 30 mg PO QHS furosemide [Lasix] 40 mg tablet 40 mg PO DAILY acetaminophen 500 mg Tablet 1,000 mg PO TID potassium chloride 10 mEq tablet,ER particles/crystals 20 meq PO BID ferrous sulfate 325 mg (65 mg iron) tablet 325 mg PO BID Qty: 60 1RF levofloxacin 750 mg tablet 750 mg PO DAILY Qty: 5 0RF atorvastatin 20 mg tablet 20 mg PO QHS Qty: 90 3RF isosorbide mononitrate 60 mg tablet extended release 24 hr 60 mg PO DAILY Qty: 30 11RF Changed lisinopril 5 MG tablet 10 mg PO DAILY Qty: 60 0RF Held metoprolol succinate 100 mg tablet extended release 24 hr 100 mg PO DAILY Hold Instructions: Resume on 08/31/23. relatively bradycardic this AM Primary Care Provider: Dennys Manley Referrals: Dennys Manley MD [Primary Care Provider] - 1-2 Days if not improving Print Language: German Disposition Disposition: Home, Self Care
[2023-08-30 04:49] LABS: Absolute Lymphocyte Count 0.97 X10^3/uL (0.83-4.51); Absolute Neutrophil Count 4.5 X10^3/uL (2.0-7.7); Basophil# 0.04 X10^3/uL; Basophil% 0.6 % (0-1); Eosinophil# 0.25 X10^3/uL; Eosinophils% 3.9 % (0-5); Hematocrit 40.5 % (40-54); Hemoglobin 12.7 g/dL (13.0-16.5); Lymphocyte # 0.97 X10^3/ul (0.83-4.51); Mean Corp Hgb Conc 31.4 g/dL (32-36); Mean Corpuscular Hgb 33.2 pg (27.0-32.0); Mean Platelet Vol. 9.7 fl (6.2-12.0); Monocyte# 0.71 X10^3/uL; NRBC Flagged by Analyzer 0 % (0-5); Neutrophil # 4.46 X10^3/uL (2.7-7.7); Platelet Count 205 K/mm3 (150-450); RBC Distribution Width CV 14.8 % (11.6-14.6); RBC Distribution Width SD 57.7 fl (35.1-43.9); Red Blood Count 3.82 M/mm3 (4.6-6.2); White Blood Count 6.5 K/mm3 (4.4-11.0)
[2023-08-30 05:07] VITALS: BP 186/103; PULSE 55; RESP 15; TEMP 36.6; O2SAT 88
[2023-08-30 05:17] LABS: Anion Gap 7 (5-15); BUN 24 mg/dL (7-18); BUN/Creat Ratio 23.3 RATIO (10-20); Calcium,Total 9.4 mg/dL (8.5-10.1); Chloride 109 mmol/L (98-107); Creatinine, Serum 1.03 mg/dL (0.70-1.30); EST Glomerular Filtration Rate 72 mL/min (>60); Est Glom Filt Rate - Afr Amer 87 mL/min (>60); Estimated Creatinine Clearance 48.62 ml/min; Glucose 104 mg/dL (74-106); Potassium 4.1 mmol/L (3.5-5.1); Sodium Level 141 mmol/L (136-145); Troponin-I HS 52 pg/mL (3.0-78.0)
[2023-08-30] MEDS: cloNIDine HCl 0.2 MG Tablet PO (05:28)
[2023-08-30 05:33] VITALS: O2SAT 88; O2SAT 95
[2023-08-30 06:34] VITALS: BP 124/59; PULSE 48; RESP 14; O2SAT 96
[2023-08-30 07:43] VITALS: BP 121/74; PULSE 40; RESP 16; TEMP 36.4; O2SAT 98
== END 2023-08-30 07:44 | disposition home or self-care (01) ==
PROVIDERS: Emergency Provider Emergency Medicine; PCP Internal Medicine; Visit Provider Emergency Medicine
DX: R41.0 Disorientation, unspecified (principal); I48.91 Unspecified atrial fibrillation; I10 Essential (primary) hypertension; I25.2 Old myocardial infarction; I25.10 Atherosclerotic heart disease of native coronary artery without angina pectoris; Z85.46 Personal history of malignant neoplasm of prostate; E78.5 Hyperlipidemia, unspecified; Z79.899 Other long term (current) drug therapy; Z79.02 Long term (current) use of antithrombotics/antiplatelets; Z79.82 Long term (current) use of aspirin; Z95.5 Presence of coronary angioplasty implant and graft; Z90.79 Acquired absence of other genital organ(s)
CPT/HCPCS: 70450; 80048; 84484; 85025; 93005; 99283

== ENCOUNTER → 2023-09-11 | Outpatient (REF) | payer MEDICARE, OTHER, SELFPAY ==
[2023-09-11 14:34] LABS: Color, Urine YELLOW (Yellow); Glucose, Dipstick Normal (Normal); Ketone-Dipstick Negative (Negative); Protein-Dipstick 30 mg/dl (Negative); Urine Bilirubin Dipstick Negative (Negative); Urine Clarity Cloudy (Clear); Urine Urobilinogen Normal (Normal)
[2023-09-11 14:35] LABS: Leukocyte Esterase-Dipstick 25 /ul (Negative); Nitrite-Dipstick Negative (Negative); Occult Blood-Urine 250 /ul (Negative)
== END ==
LOC: OLS.WHLEAS 08:30
PROVIDERS: PCP Internal Medicine; Visit Provider Internal Medicine
DX: N39.0 Urinary tract infection, site not specified (principal)
CPT/HCPCS: 81002; 87086; 87088

== ENCOUNTER → 2023-09-12 | Outpatient (REF) | payer MEDICARE, OTHER, SELFPAY ==
[2023-09-12 08:34] LABS: Absolute Lymphocyte Count 0.83 X10^3/uL (0.83-4.51); Absolute Neutrophil Count 4.6 X10^3/uL (2.0-7.7); Basophil# 0.05 X10^3/uL; Basophil% 0.8 % (0-1); Eosinophil# 0.48 X10^3/uL; Eosinophils% 7.3 % (0-5); Hematocrit 42.4 % (40-54); Hemoglobin 13.5 g/dL (13.0-16.5); Lymphocyte # 0.83 X10^3/ul (0.83-4.51); Lymphocyte % 12.5 % (19-41); Mean Corp Hgb Conc 31.8 g/dL (32-36); Mean Corpuscular Hgb 33.1 pg (27.0-32.0); Mean Corpuscular Volume 103.9 fL (80-94); Monocyte# 0.64 X10^3/uL; Monocyte% 9.7 % (0-10); NRBC Flagged by Analyzer 0 % (0-5); Neutrophil % 69.4 % (47-70); Platelet Count 310 K/mm3 (150-450); RBC Distribution Width CV 14.8 % (11.6-14.6); RBC Distribution Width SD 57.4 fl (35.1-43.9); Red Blood Count 4.08 M/mm3 (4.6-6.2); White Blood Count 6.6 K/mm3 (4.4-11.0)
[2023-09-12 09:38] LABS: AST(SGOT) 33 U/L (15-37); Alanine Aminotransfer ALT/SGPT 22 U/L (16-61); Albumin, Serum 2.8 g/dL (3.2-5.0); Alkaline Phosphatase 98 U/L (45-117); Anion Gap 6 (5-15); BUN 14 mg/dL (7-18); BUN/Creat Ratio 14.4 RATIO (10-20); Bilirubin, Direct 0.09 mg/dL (0.00-0.30); Chloride 111 mmol/L (98-107); Cholesterol 134 mg/dL (200); Creatinine, Serum 0.97 mg/dL (0.70-1.30); EST Glomerular Filtration Rate 77 mL/min (>60); Est Glom Filt Rate - Afr Amer 94 mL/min (>60); Globulin 4.1 g/dL (2.2-4.2); Glucose 100 mg/dL (74-106); High Density Lipoprotein 41 mg/dL; Potassium 3.9 mmol/L (3.5-5.1); Protein, Total 6.9 g/dL (6.4-8.2); Sodium Level 142 mmol/L (136-145); Triglycerides 162 mg/dL; Very Low Density Lipoprotein 32 mg/dL (5-40)
[2023-09-12 10:40] LABS: Hemoglobin A1c 5.6 % (3.8-5.6)
== END ==
LOC: OLS.WHLEAS 05:00
PROVIDERS: PCP Internal Medicine; Visit Provider Internal Medicine
DX: E87.6 Hypokalemia (principal); E11.51 Type 2 diabetes mellitus with diabetic peripheral angiopathy without gangrene; E11.43 Type 2 diabetes mellitus with diabetic autonomic (poly)neuropathy; E11.621 Type 2 diabetes mellitus with foot ulcer; G47.33 Obstructive sleep apnea (adult) (pediatric)
CPT/HCPCS: 36415; 80048; 80061; 80076; 83036; 85025

== ENCOUNTER → 2023-10-25 | Outpatient (REF) | payer MEDICARE, OTHER, SELFPAY ==
[2023-10-25 07:28] LABS: Absolute Neutrophil Count 3.8 X10^3/uL (2.0-7.7); Basophil# 0.04 X10^3/uL; Basophil% 0.7 % (0-1); Eosinophil# 0.25 X10^3/uL; Eosinophils% 4.3 % (0-5); Hematocrit 37.5 % (40-54); Hemoglobin 11.9 g/dL (13.0-16.5); Lymphocyte % 15.5 % (19-41); Mean Corp Hgb Conc 31.7 g/dL (32-36); Mean Corpuscular Hgb 32.5 pg (27.0-32.0); Mean Corpuscular Volume 102.5 fL (80-94); Mean Platelet Vol. 9.5 fl (6.2-12.0); Monocyte# 0.77 X10^3/uL; Monocyte% 13.3 % (0-10); NRBC Flagged by Analyzer 0 % (0-5); Neutrophil % 65.5 % (47-70); Platelet Count 309 K/mm3 (150-450); RBC Distribution Width CV 14.8 % (11.6-14.6); RBC Distribution Width SD 55.5 fl (35.1-43.9); Red Blood Count 3.66 M/mm3 (4.6-6.2); White Blood Count 5.8 K/mm3 (4.4-11.0)
== END ==
LOC: OLS.WHLEAS 05:00
PROVIDERS: PCP Internal Medicine; Visit Provider Internal Medicine
DX: D50.9 Iron deficiency anemia, unspecified (principal)
CPT/HCPCS: 36415; 85025

== ENCOUNTER → 2023-11-09 | Outpatient (CLI) | payer MEDICARE, OTHER, SELFPAY ==
[2023-11-10 16:10] LABS: Albumin 3.1 g/dL (2.9-4.4); Alpha-1-Globulins 0.3 g/dL (0.0-0.4); Alpha-2-Globulins 0.9 g/dL (0.4-1.0); Gamma Globulin 0.7 g/dL (0.4-1.8); Immunoglobulin A 302 mg/dL (61-437); Immunoglobulin G 858 mg/dL (603-1613); Immunoglobulin M 35 mg/dL (15-143); PROEL- TOTAL PROTEIN 6.1 g/dL (6.0-8.5)
== END | disposition home or self-care (01) ==
PROVIDERS: PCP Internal Medicine; Referring Provider Psychiatry & Neurology Neurology; Visit Provider Psychiatry & Neurology Neurology
DX: G62.9 Polyneuropathy, unspecified (principal)
CPT/HCPCS: 36415; 82784; 84165; 86334

== ENCOUNTER → 2023-12-12 05:00 | Outpatient (REF) | payer MEDICARE, OTHER, SELFPAY ==
[2023-12-12 11:01] LABS: AST(SGOT) 23 U/L (15-37); Alanine Aminotransfer ALT/SGPT 24 U/L (16-61); Albumin, Serum 2.8 g/dL (3.2-5.0); Alkaline Phosphatase 97 U/L (45-117); Bilirubin, Direct 0.09 mg/dL (0.00-0.30); Cholesterol 134 mg/dL (200); Globulin 3.8 g/dL (2.2-4.2); High Density Lipoprotein 41 mg/dL; Protein, Total 6.6 g/dL (6.4-8.2); Triglycerides 102 mg/dL; Very Low Density Lipoprotein 20 mg/dL (5-40)
[2023-12-12 15:29] LABS: Hemoglobin A1c 5.6 % (3.8-5.6)
== END ==
LOC: OLS.WHLEAS 05:00
PROVIDERS: PCP Internal Medicine; Visit Provider Internal Medicine
DX: E11.51 Type 2 diabetes mellitus with diabetic peripheral angiopathy without gangrene (principal); E87.6 Hypokalemia; E11.43 Type 2 diabetes mellitus with diabetic autonomic (poly)neuropathy
CPT/HCPCS: 36415; 80061; 80076; 83036

== ENCOUNTER → 2024-01-24 05:00 | Outpatient (REF) | payer MEDICARE, OTHER, SELFPAY ==
[2024-01-24 09:15] LABS: Absolute Lymphocyte Count 0.65 X10^3/uL (0.83-4.51); Absolute Neutrophil Count 4.7 X10^3/uL (2.0-7.7); Basophil# 0.03 X10^3/uL; Basophil% 0.5 % (0-1); Eosinophil# 0.31 X10^3/uL; Eosinophils% 4.7 % (0-5); Hematocrit 35.2 % (40-54); Lymphocyte # 0.65 X10^3/ul (0.83-4.51); Mean Corp Hgb Conc 31.3 g/dL (32-36); Mean Corpuscular Hgb 32.7 pg (27.0-32.0); Mean Corpuscular Volume 104.8 fL (80-94); Monocyte# 0.81 X10^3/uL; Monocyte% 12.4 % (0-10); NRBC Flagged by Analyzer 0 % (0-5); Neutrophil % 71.9 % (47-70); Platelet Count 201 K/mm3 (150-450); RBC Distribution Width CV 15.3 % (11.6-14.6); RBC Distribution Width SD 58.7 fl (35.1-43.9); Red Blood Count 3.36 M/mm3 (4.6-6.2); White Blood Count 6.5 K/mm3 (4.4-11.0)
== END ==
LOC: OLS.WHLEAS 05:00
PROVIDERS: PCP Internal Medicine; Visit Provider Internal Medicine
DX: D50.9 Iron deficiency anemia, unspecified (principal)
CPT/HCPCS: 36415; 85025

== ENCOUNTER → 2024-02-07 | Outpatient (REF) | payer MEDICARE, OTHER, SELFPAY ==
[2024-02-07 08:39] LABS: Anion Gap 5 (5-15); BUN 20 mg/dL (7-18); BUN/Creat Ratio 22.6 RATIO (10-20); Calcium,Total 8.8 mg/dL (8.5-10.1); Chloride 110 mmol/L (98-107); Creatinine, Serum 0.88 mg/dL (0.70-1.30); EST Glomerular Filtration Rate 86 mL/min (>60); Est Glom Filt Rate - Afr Amer 104 mL/min (>60); Glucose 98 mg/dL (74-106); Potassium 3.9 mmol/L (3.5-5.1); Sodium Level 142 mmol/L (136-145)
== END ==
LOC: OLS.WHLEAS 05:00
PROVIDERS: PCP Internal Medicine; Visit Provider Internal Medicine
DX: I10 Essential (primary) hypertension (principal); E11.51 Type 2 diabetes mellitus with diabetic peripheral angiopathy without gangrene; E11.43 Type 2 diabetes mellitus with diabetic autonomic (poly)neuropathy; G47.33 Obstructive sleep apnea (adult) (pediatric)
CPT/HCPCS: 36415; 80048

== ENCOUNTER 2024-03-08 00:10 | Inpatient (IN) | payer MEDICARE, OTHER, SELFPAY ==
[2024-03-08] VITALS (15 sets, daily range): BP systolic 123–190; BP diastolic 71–119; PULSE 62–112; RESP 14–20; TEMP 36.3–36.7; O2SAT 94–100; BMI 24.0; BMI 22.5
--- NOTE | 2024-03-08 00:27 | CT_ITS ---
EXAM: CT HEAD WITHOUT INTRAVENOUS CONTRAST CLINICAL INDICATION: Altered mental status TECHNIQUE: Multiple axial images were obtained of the head without intravenous contrast. This CT exam was performed using one or more of the following dose reduction techniques: automated exposure control, adjustment of the mA and/or kV according to patient size, and/or use of iterative reconstruction technique. RADIATION DOSE: Total DLP: 863.60 mGy-cm. COMPARISON: Cranial CT of 08/30/2023. FINDINGS: BRAIN AND EXTRA-AXIAL SPACES: Findings of mild cortical atrophy are again noted with prominence of the cortical sulci and sylvian fissures. 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 Moderate patchy diminished attenuation is again noted within the periventricular deep white matter tracts, consistent with chronic small vessel ischemic changes. No intra- or extra-axial hemorrhage. No intracranial mass or mass effect. Posterior fossa structures are unremarkable. Basal cisterns are patent. Singh-white matter differentiation is preserved. BONES/JOINTS: Unremarkable. No discrete lytic or blastic abnormalities. VASCULATURE: Atherosclerotic vascular calcification is present. The middle cerebral arteries are not hyperdense. SINUSES: Unremarkable as visualized. Clear. MASTOID AIR CELLS: Unremarkable. Clear. ORBITS: Previous cataract extraction. CT/Brain/Head without Contrast IMPRESSION: No significant interval change. Atrophy and chronic small vessel ischemic changes again noted. No acute findings in the head/brain. Electronically Signed: Amaury Qiu MD at 1:24 EST ,
--- NOTE | 2024-03-08 00:28 | EKG12_ITS ---
Test Reason : DYSRHYTHMIA Blood Pressure : */* mmHG Vent. Rate : 81 BPM Atrial Rate : 81 BPM P-R Int : 140 ms QRS Dur : 138 ms QT Int : 434 ms P-R-T Axes : * 71 19 degrees QTcB Int : 504 ms Sinus rhythm with Premature atrial complexes Right bundle branch block Abnormal ECG Confirmed by GAMALIEL KING ([id number]), editor producer ANJANA ASIF ([id number]) on 03/08/2024 11:50:07 AM Referred By: Confirmed By: GAMALIEL KING
--- NOTE | 2024-03-08 00:37 | EX.ED.CRITCA ---
HPI History of Present Illness Chief Complaint: Alt LOC Narrative Narrative: Chief complaint and HPI: Altered mental status. 88-year-old male with history of atrial fibrillation, DM, dementia, HTN, HLD presents from [facility] for altered mental status. Patient is a poor historian given his confusion. He does endorse confusion. He denies any fever, chills, URI symptoms, chest pain, abdominal pain, shortness of breath, nausea, vomiting, diarrhea, dysuria. Per report, patient has been intermittently confused for the past 9 days after he received his COVID-19 vaccine. They state this evening they checked on him and he was alert and oriented x 1. They state his baseline is alert and orient x 3. They state that he was hypertensive into the 190s and brought him for evaluation. No reported falls Review of systems: See HPI Medications: As listed on the chart Allergies: As listed on the chart PFSH: Per chart Vital signs: As listed on the chart. Reviewed. Physical exam: Gen: A&O x1 -oriented to self, NAD Head: Normocephalic, atraumatic Eyes: No sclera icterus, conjunctiva clear, PERRL, EOMI ENT: Dry mucous membranes Neck: Trachea midline, No JVD CV: Regular rate, regular rhythm, no murmurs, no peripheral edema Resp: Lungs CTA BL, no w/r/c GI: Abd soft, non-distended, non-tender, no r/r/g : Circumcised male, testicles nontender, mild skin irritation from wetness of depends Musc: Moves all extremities, no deformity Skin: Warm, dry, bilateral lower extremities with chronic skin changes/chronic vascular ulcers-mildly erythematous and warm concerning for cellulitis Neuro: Grossly intact, [facility] Large bowel bleed Non-smoker Atrial fibrillation Diabetes Hallucinations Dementia Gait disorder Cancer Sleep apnea Chest pain Hypertension Carpal tunnel syndrome on both sides History of non-ST elevation myocardial infarction (NSTEMI) (07/02/19) UTI (urinary tract infection) Atrial fibrillation with RVR (05/28/20) Acute diarrheal illness Acute kidney injury Pneumonia due to COVID-19 virus (03/23/20) Septic shock PAD (peripheral artery disease) Delayed wound healing Debility Nonhealing ulcer of left lower extremity with fat layer exposed Non-healing ulcer of right foot with fat layer exposed Neuropathy Rectal prolapse Right bundle branch block (RBBB) Open wound of finger of left hand Chronic pain of right heel Ulcer of right lower extremity with fat layer exposed Ulcer of right heel Peripheral arterial occlusive disease Urinary incontinence Essential (primary) hypertension Spondylolisthesis Lumbar stenosis Peripheral neuropathy 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 DDD (degenerative disc disease) GERD (gastroesophageal reflux disease) Prostate cancer Obstructive sleep apnea Hyperlipidemia Home Medications ?Medication ?Instructions ?Recorded ?Last Taken ?Type duloxetine 30 mg capsule,delayed 30 mg PO DAILY DEPRESSION 03/06/19 06/30/22 History release atorvastatin 20 mg tablet 20 mg PO QHS CHOLESTEROL #90 tabs 06/10/19 06/29/22 Rx Motorized wheelchair #1 ea 06/29/22 Unknown Rx acetaminophen 500 mg tablet 1,000 mg PO TID LOWER BACK PAIN 06/30/22 06/30/22 11:00 History furosemide 40 mg tablet (Lasix) 20 mg PO DAILY FLUID 06/30/22 06/30/22 History metoprolol succinate 100 mg 100 mg PO DAILY BLOOD PRESSURE 06/30/22 06/30/22 History tablet,extended release 24 hr mirtazapine 30 mg tablet 15 mg PO QHS DEPRESSION 06/30/22 06/29/22 History potassium chloride 10 mEq 20 meq PO BID SUPPLEMENT 06/30/22 06/30/22 History tablet,extended release(part/cryst) isosorbide mononitrate 60 mg 60 mg PO DAILY #30 tabs 04/20/23 Unknown Rx tablet,extended release 24 hr memantine 28 mg capsule 28 mg PO DAILY #30 ea 05/16/23 Unknown Rx sprinkle,extended release 24hr ferrous sulfate 325 mg (65 mg 325 mg PO DAILY 03/08/24 Unknown History iron) tablet lisinopril 5 mg tablet 5 mg PO DAILY 03/08/24 Unknown History polyethylene glycol 400 1 % eye 2 drp EACH EYE BID 03/08/24 Unknown History drops (Dry Eye Relief (PEG 400)) Allergy/AdvReac Type Severity Reaction Status Date / Time latex Allergy Unknown unknown Verified 03/08/24 00:12 carisoprodol Allergy Other Verified 03/08/24 00:12 itraconazole Allergy Other Verified 03/08/24 00:12 Family History Mother CVA (cerebral vascular accident) Sister Hypertension Surgical History History of coronary artery stent placement History of left heart catheterization (07/02/19) History of angioplasty of peripheral vessel (10/23/13) History of coronary artery stent placement (10/07/15) History of back surgery History of shoulder surgery History of hernia repair History of tonsillectomy History of prostatectomy Social History housing: alf Smoking Status: Never smoker alcohol intake: never substance use type: does not use caffeine: Yes Type: tea what type of physical activity do you participate in: none seatbelt use: always do you feel safe at home: Yes EXAM Physical Exam Const Vital Signs: 03/08/24 00:12 03/08/24 00:15 03/08/24 01:15 Temperature 97.4 F L 97.4 F L 97.7 F L Temperature Source Oral Oral Oral Pulse Rate 98 98 88 Respiratory Rate 16 16 16 Respiratory Effort Respiratory Pattern Blood Pressure 190/109 H 161/117 H 176/102 H Blood Pressure Mean 136 131 126 Pulse Ox 95 97 96 Oxygen Delivery Method Room Air Room Air Room Air 03/08/24 01:30 Temperature Temperature Source Pulse Rate Respiratory Rate Respiratory Effort Normal Respiratory Pattern Normal Blood Pressure Blood Pressure Mean Pulse Ox Oxygen Delivery Method MDM MDM MDM Narrative Medical decision making narrative: 88-year-old male with history of atrial fibrillation, DM, dementia, HTN, HLD presents from [facility] for altered mental status. Differential diagnosis includes but is not limited to UTI, electrolyte abnormality, viral illness, arrhythmia, ACS, pneumonia, cellulitis, intracranial abnormality. NS bolus ordered. Altered mental status workup ordered including CT head. EKG and chest x-ray reviewed see below. CBC without leukocytosis or anemia. Coagulation panel unremarkable. CMP without JUAN PABLO or significant electrolyte abnormality. No transaminitis. Lactic acid unremarkable. Troponin elevated at 45 however this appears to be his baseline on chart review. Delta pending. CT head without any acute abnormality. Patient has chronic changes. Urine negative for UTI. COVID, flu, RSV negative. At this point in time, no clear etiology for patient's symptoms. May be secondary to COVID-19 vaccine. I do not think patient needs any IV antibiotics for cellulitis at this time. Hospitalist can treat appropriately. Patient will warrant admission for further observation and workup. Patient was discussed with the hospitalist service who accepted admission. EKG: Interpreted by me/EM physician: EKG shows normal sinus rhythm with PACs. Right bundle branch block. No acute ischemic changes. Heart rate 81. Diagnostic: Interpreted by me/EM physician: Chest x-ray without pneumonia, effusion, pneumothorax Impression: 1. Altered mental status with history of dementia 2. Hypertension with history of hypertension 3. Bilateral lower extremity cellulitis Lab Data Labs: Laboratory Results - last 24 hr 03/08/24 03/08/24 03/08/24 00:27 00:56 01:00 WBC 6.4 RBC 3.97 L Hgb 13.1 Hct 40.7 MCV 102.5 H MCH 33.0 H MCHC 32.2 RDW Std Deviation 57.4 H RDW Coeff of Ayesha 15.4 H Plt Count 311 MPV 9.1 Immature Gran % (Auto) 0.600 Neut % (Auto) 64.2 Lymph % (Auto) 17.6 L Daniels % (Auto) 11.7 H Eos % (Auto) 5.1 H Baso % (Auto) 0.8 Absolute Neuts (auto) 4.1 Absolute Lymphs (auto) 1.13 Nucleated RBC % 0 PT 13.5 INR 1.0 APTT 29.9 Sodium 143 Potassium 4.1 Chloride 109 H Carbon Dioxide 30.0 Anion Gap 4 L BUN 22 H Creatinine 1.17 Estim Creat Clear Calc 42.80 Est GFR (MDRD) Af Amer 75 Est GFR (MDRD) Non-Af 62 BUN/Creatinine Ratio 18.8 Glucose 110 H Lactic Acid 1.1 Calcium 9.2 Total Bilirubin 0.30 AST 21 ALT 18 Alkaline Phosphatase 104 Troponin I High Sens 45 Total Protein 7.0 Albumin 2.9 L Globulin 4.1 Albumin/Globulin Ratio 0.7 L Urine Color Straw Urine Clarity Clear Urine pH 7.0 Ur Specific [place] 1.010 Urine Protein 15 H Urine Glucose (UA) Normal Urine Ketones Negative Urine Occult Blood Negative Urine Nitrite Negative Urine Bilirubin Negative Urine Urobilinogen Normal Ur Leukocyte Esterase Negative Urine RBC 0 SEEN Urine WBC 0 SEEN Ur Squamous Epith Cells 0 SEEN Urine Bacteria 0 SEEN Urine Mucus 0 SEEN Radiography Diagnostic Testing: Clinical Impression(s) from Imaging Studies Brain CT 03/08/24 00:27 IMPRESSION: No significant interval change. Atrophy and chronic small vessel ischemic changes again noted. No acute findings in the head/brain. Electronically Signed: Amaury Qiu MD at 1:24 EST , Chest X-Ray 03/08/24 00:45 IMPRESSION: No radiographic evidence of acute cardiopulmonary disease. Electronically Signed: Amaury Qiu MD at 1:00 EST , Discharge Plan Triage Chief Complaint: Alt LOC ED Provider: Rick Abbott Dx/Rx/DC Orders Prescriptions: No Action duloxetine 30 mg capsule,delayed release(DR/EC) 30 mg PO DAILY (DME) Motorized wheelchair See Rx Instructions .Route .MEDSUPPLY Qty: 1 0RF Rx Instructions: As directed memantine 28 mg capsule,sprinkle,ER 24hr 28 mg PO DAILY Qty: 30 6RF Rx Instructions: Week #4 and thereafter mirtazapine 30 mg Tablet 15 mg PO QHS furosemide [Lasix] 40 mg tablet 20 mg PO DAILY metoprolol succinate 100 mg tablet extended release 24 hr 100 mg PO DAILY acetaminophen 500 mg Tablet 1,000 mg PO TID potassium chloride 10 mEq tablet,ER particles/crystals 20 meq PO BID Dry Eye Relief (PEG 400) 1 % drops 2 drp EACH EYE BID lisinopril 5 mg tablet 5 mg PO DAILY ferrous sulfate 325 mg (65 mg iron) tablet 325 mg PO DAILY atorvastatin 20 mg tablet 20 mg PO QHS Qty: 90 3RF isosorbide mononitrate 60 mg tablet extended release 24 hr 60 mg PO DAILY Qty: 30 11RF Primary Care Provider: Dennys Manley Referrals: Dennys Manley MD [Primary Care Provider] - Print Language: Yi
[2024-03-08 00:40] LABS: Absolute Lymphocyte Count 1.13 X10^3/uL (0.83-4.51); Absolute Neutrophil Count 4.1 X10^3/uL (2.0-7.7); Basophil# 0.05 X10^3/uL; Basophil% 0.8 % (0-1); Eosinophil# 0.33 X10^3/uL; Eosinophils% 5.1 % (0-5); Hematocrit 40.7 % (40-54); Hemoglobin 13.1 g/dL (13.0-16.5); Lymphocyte # 1.13 X10^3/ul (0.83-4.51); Lymphocyte % 17.6 % (19-41); Mean Corp Hgb Conc 32.2 g/dL (32-36); Mean Corpuscular Volume 102.5 fL (80-94); Mean Platelet Vol. 9.1 fl (6.2-12.0); Monocyte# 0.75 X10^3/uL; Monocyte% 11.7 % (0-10); NRBC Flagged by Analyzer 0 % (0-5); Neutrophil # 4.12 X10^3/uL (2.7-7.7); Neutrophil % 64.2 % (47-70); Platelet Count 311 K/mm3 (150-450); RBC Distribution Width CV 15.4 % (11.6-14.6); RBC Distribution Width SD 57.4 fl (35.1-43.9); Red Blood Count 3.97 M/mm3 (4.6-6.2); White Blood Count 6.4 K/mm3 (4.4-11.0)
[2024-03-08] MEDS: 0.9% Normal Saline (1000mL) 1,000 ML 999 ML IV (00:40)
--- NOTE | 2024-03-08 00:45 | RAD_ITS ---
EXAM: XR CHEST, 1 VIEW CLINICAL INDICATION: Altered mental status TECHNIQUE: Frontal view of the chest. COMPARISON: Previous chest radiographs of 11/18/2022 and 09/20/2022. FINDINGS: LUNGS AND PLEURAL SPACES: Stable chronic blunting of the right lateral costophrenic angle, consistent with pleural thickening. No acute pulmonary infiltrates, pleural effusion or pneumothorax. HEART: Heart size is upper normal with normal pulmonary vasculature. Coronary artery stent material again noted. MEDIASTINUM: Stable mild elongation of the thoracic aorta with ectasia of the brachiocephalic vessels. BONES/JOINTS: No acute osseous abnormality. Cervical and thoracic degenerative changes. 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 Soft tissue anchor is projected within the left humeral head. SOFT TISSUES: Unremarkable. RAD/Chest 1 View (Portable) IMPRESSION: No radiographic evidence of acute cardiopulmonary disease. Electronically Signed: Amaury Qiu MD at 1:00 EST ,
[2024-03-08 00:50] LABS: Prothrombin Time (Protime)PT. 13.5 SECONDS (11.7-14.9)
[2024-03-08 00:51] LABS: Partial Thromboplast Time 29.9 Seconds (24.1-36.2)
[2024-03-08 00:59] LABS: ALB/GLOB Ratio 0.7 RATIO (0.9-2.4); AST(SGOT) 21 U/L (15-37); Alanine Aminotransfer ALT/SGPT 18 U/L (16-61); Albumin, Serum 2.9 g/dL (3.2-5.0); Alkaline Phosphatase 104 U/L (45-117); Anion Gap 4 (5-15); BUN 22 mg/dL (7-18); BUN/Creat Ratio 18.8 RATIO (10-20); Calcium,Total 9.2 mg/dL (8.5-10.1); Chloride 109 mmol/L (98-107); Creatinine, Serum 1.17 mg/dL (0.70-1.30); EST Glomerular Filtration Rate 62 mL/min (>60); Est Glom Filt Rate - Afr Amer 75 mL/min (>60); Globulin 4.1 g/dL (2.2-4.2); Glucose 110 mg/dL (74-106); Potassium 4.1 mmol/L (3.5-5.1); Sodium Level 143 mmol/L (136-145); Troponin-I HS (w/2H Reflex) 45 pg/mL (3.0-78.0)
[2024-03-08 01:08] LABS: Bacteria 0 SEEN /hpf (None Seen); Mucous, Urine 0 SEEN /hpf (<or=2+); Red Blood Cells-Urine 0 SEEN /hpf (0-5); Squamous Epithelial Cells - UA 0 SEEN /hpf (0-5); White Blood Cells 0 SEEN /hpf (0-5)
[2024-03-08 01:10] LABS: Color, Urine Straw (Yellow); Glucose, Dipstick Normal (Normal); Ketone-Dipstick Negative (Negative); Leukocyte Esterase-Dipstick Negative /ul (Negative); Nitrite-Dipstick Negative (Negative); Occult Blood-Urine Negative /ul (Negative); Protein-Dipstick 15 mg/dl (Negative); Urine Bilirubin Dipstick Negative (Negative); Urine Clarity Clear (Clear); Urine Urobilinogen Normal (Normal)
[2024-03-08 01:31] LABS: Lactic Acid 1.1 mmol/L (0.4-1.9)
[2024-03-08 02:32] LABS: Reflex Troponin-HS? (from REC) Y
--- NOTE | 2024-03-08 02:52 | PCM.HP.STD ---
[facility] - General General Date of Admission: 03/08/24 Date of Service: 03/08/24 Chief Complaint: Confusion, Elevated Blood Pressure and Leg Redness. HPI Narrative FEI CHANDLER, is a 88 M with a past medical history of essential hypertension; on lisinopril, metoprolol and furosemide, hyperlipidemia; on atorvastatin, CAD; s/p NSTEMI with multiple subsequent stents on ISMO, history of atrial fibrillation (2020); not on anticoagulation, history of RBBB, severe PAD; s/p stent (2013) with history of chronic ulcers on both feet, history of LGIB, history of rectal prolapse, ZEYNEP, SCOTT, peripheral neuropathy, history of mild cognitive impairment with hallucinations; on memantine, history of depression; on duloxetine and mirtazapine, history of prostate cancer; s/p prostatectomy, history of UTI, history of septic shock, GERD, history of COVID-19 (2019), history of hernia repair and OA; with stenosis of lumbar spine plus DDD; s/p back surgery with chronic back pain along with chronic debility and gait disorder who currently resides at [facility] presents to [facility] ER complaining of confusion, elevated blood pressure and leg redness. Mr. Chandler is not a reliable historian at this time so information was taken from chart, medical staff and computer. According to the records and what limited information that is available from the patient his symptoms began approximately 9 days prior to admission with intermittent confusion that seemed to start after he received a COVID vaccination. The staff at his [facility] noted that he is typically alert & oriented x 3 - but when they went to check on him he was only alert & oriented x 1 to self with patient also noted to have an elevated blood pressure in the ~190 mmHg systolic range and increased redness of his legs in the setting of a known chronic LLE ulcer so they had him sent to the ER for further evaluation and treatment. There was no report of recent fall, recent head trauma, recent medication changes or similar previous episodes. He denies associated fever, chills, nausea, vomiting, diarrhea, constipation, abdominal pain, chest pain, SOB, cough, palpitations, dysuria, headache, slurred speech or other focal motor deficits but he does know he is confused. In the ER he was diagnosed with Acute Cellulitis of the Legs in the setting of a known LLE Ulcer complicated by clinical evidence of Acute Delirium in the setting of known Chronic Mild Cognitive Impairment compounded by suspected Adverse Drug Reaction to COVID vaccine along with Hypertensive Urgency with significantly elevated blood pressure of 190/109 mmHg present on admission and he was then admitted to the PCU for ongoing care for a stay that is expected to extend beyond 2 midnights. [facility] Medical History Large bowel bleed Non-smoker Atrial fibrillation Diabetes Hallucinations Dementia Gait disorder Cancer Sleep apnea Chest pain Hypertension Carpal tunnel syndrome on both sides History of non-ST elevation myocardial infarction (NSTEMI) (07/02/19) UTI (urinary tract infection) Atrial fibrillation with RVR (05/28/20) Acute diarrheal illness Acute kidney injury Pneumonia due to COVID-19 virus (03/23/20) Septic shock PAD (peripheral artery disease) Delayed wound healing Debility Nonhealing ulcer of left lower extremity with fat layer exposed Non-healing ulcer of right foot with fat layer exposed Neuropathy Rectal prolapse Right bundle branch block (RBBB) Open wound of finger of left hand Chronic pain of right heel Ulcer of right lower extremity with fat layer exposed Ulcer of right heel Peripheral arterial occlusive disease Urinary incontinence Essential (primary) hypertension Spondylolisthesis Lumbar stenosis Peripheral neuropathy Retinopathy due to secondary diabetes Atherosclerotic heart disease of [place] coronary artery without angina pectoris DDD (degenerative disc disease) GERD (gastroesophageal reflux disease) Prostate cancer Obstructive sleep apnea Hyperlipidemia Home Medications ?Medication ?Instructions ?Recorded ?Last Taken ?Type duloxetine 30 mg capsule,delayed 30 mg PO DAILY DEPRESSION 03/06/19 06/30/22 History release atorvastatin 20 mg tablet 20 mg PO QHS CHOLESTEROL #90 tabs 06/10/19 06/29/22 Rx Motorized wheelchair #1 ea 06/29/22 Unknown Rx acetaminophen 500 mg tablet 1,000 mg PO TID LOWER BACK PAIN 06/30/22 03/07/24 History furosemide 40 mg tablet (Lasix) 20 mg PO DAILY FLUID 06/30/22 06/30/22 History metoprolol succinate 100 mg 100 mg PO DAILY BLOOD PRESSURE 06/30/22 06/30/22 History tablet,extended release 24 hr mirtazapine 30 mg tablet 15 mg PO QHS DEPRESSION 06/30/22 06/29/22 History potassium chloride 10 mEq 40 meq PO DAILY SUPPLEMENT 06/30/22 03/07/24 History tablet,extended release(part/cryst) isosorbide mononitrate 60 mg 60 mg PO DAILY #30 tabs 04/20/23 Unknown Rx tablet,extended release 24 hr memantine 28 mg capsule 28 mg PO DAILY #30 ea 05/16/23 Unknown Rx sprinkle,extended release 24hr ferrous sulfate 325 mg (65 mg 325 mg PO DAILY Supplement 03/08/24 03/07/24 History iron) tablet lisinopril 5 mg tablet 5 mg PO DAILY 03/08/24 Unknown History polyethylene glycol 400 1 % eye 2 drp EACH EYE BID Dry eyes 03/08/24 03/07/24 History drops (Dry Eye Relief (PEG 400)) Allergy/AdvReac Type Severity Reaction Status Date / Time latex Allergy Unknown unknown Verified 03/08/24 00:12 carisoprodol Allergy Other Verified 03/08/24 00:12 itraconazole Allergy Other Verified 03/08/24 00:12 COVID-19 (SARS-CoV-2) AdvReac Other Verified 03/08/24 06:12 vaccine, jeanie Family History Mother CVA (cerebral vascular accident) Sister Hypertension Surgical History History of coronary artery stent placement History of left heart catheterization (07/02/19) History of angioplasty of peripheral vessel (10/23/13) History of coronary artery stent placement (10/07/15) History of back surgery History of shoulder surgery History of hernia repair History of tonsillectomy History of prostatectomy Social History housing: alf Smoking Status: Never smoker alcohol intake: never substance use type: does not use caffeine: Yes Type: tea what type of physical activity do you participate in: none seatbelt use: always do you feel safe at home: Yes Vital Signs Vital Signs Vital Signs: 03/08/24 00:12 03/08/24 00:15 03/08/24 01:15 Temperature 97.4 F L 97.4 F L 97.7 F L Temperature Source Oral Oral Oral Pulse Rate 98 98 88 Respiratory Rate 16 16 16 Respiratory Effort Respiratory Pattern Blood Pressure 190/109 H 161/117 H 176/102 H Blood Pressure Mean 136 131 126 Pulse Ox 95 97 96 Oxygen Delivery Method Room Air Room Air Room Air 03/08/24 01:30 03/08/24 01:57 03/08/24 02:00 Temperature 97.7 F L 97.7 F L Temperature Source Oral Pulse Rate 100 100 Respiratory Rate 17 17 Respiratory Effort Normal Respiratory Pattern Normal Blood Pressure 149/89 H 149/89 H Blood Pressure Mean 109 109 Pulse Ox 98 98 Oxygen Delivery Method Room Air Weight Weight: 163 lb 2.273 oz Body Mass Index (BMI) 24.0 Physical Exam Const alert, no apparent distress and average body habitus Constitutional Narrative: Patient is confused but he is able to answer simple questions. General Appearance: cooperative Orientation / Consciousness: confused HEENT normocephalic, head/scalp atraumatic, hearing grossly normal bilaterally and moist oral mucous membranes Eyes PERRL and EOMs intact bilaterally Neck no lymphadenopathy, supple and no JVD Resp normal respiratory effort, no retractions, no use of accessory muscles and clear to auscultation bilaterally Cardio regular rate and regular rhythm GI normal to inspection, nondistended, normoactive bowel sounds, soft to palpation, non-tender and non-distended Extremity Extremity Narrative: LLE erythema > Right with ~1 cm ulcer on Left distal lateral moser covered with whitish pus with surrounding erythema and evidence of severe PAD with scaling of skin and ulcerations on multiple toes particular worst over the Right great toe. Skin Skin Narrative: LLE erythema > Right with ~1 cm ulcer on Left distal lateral moser covered with whitish pus with surrounding erythema and evidence of severe PAD with scaling of skin and ulcerations on multiple toes particular worst over the Right great toe. Neuro CN's II-XII intact bilaterally, moves all extremities and no focal motor deficits Sensorium / Orientation: awake, alert and oriented to person Speech: speech normal Psych affect normal Results Medical Records Data Attestation: I reviewed the patient's medical records Lab / Micro Data Attestation: I reviewed the patient's lab results. 03/08/24 00:27 03/08/24 00:27 Labs: Laboratory Results - last 24 hr 03/08/24 00:27: WBC 6.4, RBC 3.97 L, Hgb 13.1, Hct 40.7, MCV 102.5 H, MCH 33.0 H, MCHC 32.2, RDW Std Deviation 57.4 H, RDW Coeff of Ayesha 15.4 H, Plt Count 311, MPV 9.1, Immature Gran % (Auto) 0.600, Neut % (Auto) 64.2, Lymph % (Auto) 17.6 L, Nolan % (Auto) 11.7 H, Eos % (Auto) 5.1 H, Baso % (Auto) 0.8, Absolute Neuts (auto) 4.1, Absolute Lymphs (auto) 1.13, Nucleated RBC % 0, PT 13.5, INR 1.0, APTT 29.9, Sodium 143, Potassium 4.1, Chloride 109 H, Carbon Dioxide 30.0, Anion Gap 4 L, BUN 22 H, Creatinine 1.17, Estim Creat Clear Calc 42.80, Est GFR (MDRD) Af Amer 75, Est GFR (MDRD) Non-Af 62, BUN/Creatinine Ratio 18.8, Glucose 110 H, Calcium 9.2, Total Bilirubin 0.30, AST 21, ALT 18, Alkaline Phosphatase 104, Troponin I High Sens 45, Total Protein 7.0, Albumin 2.9 L, Globulin 4.1, Albumin/Globulin Ratio 0.7 L 03/08/24 00:56: Lactic Acid 1.1 03/08/24 01:00: Urine Color Straw, Urine Clarity Clear, Urine pH 7.0, Ur Specific [place] 1.010, Urine Protein 15 H, Urine Glucose (UA) Normal, Urine Ketones Negative, Urine Occult Blood Negative, Urine Nitrite Negative, Urine Bilirubin Negative, Urine Urobilinogen Normal, Ur Leukocyte Esterase Negative, Urine RBC 0 SEEN, Urine WBC 0 SEEN, Ur Squamous Epith Cells 0 SEEN, Urine Bacteria 0 SEEN, Urine Mucus 0 SEEN Micro: Microbiology 03/08/24 00:35 Mucosa - Nose SARS-CoV-2, Influenza & RSV (PCR) - Final Imaging Radiology Impression Brain CT 03/08/24 00:27 IMPRESSION: No significant interval change. Atrophy and chronic small vessel ischemic changes again noted. No acute findings in the head/brain. Electronically Signed: Amaury Qiu MD at 1:24 EST , Chest X-Ray 03/08/24 00:45 IMPRESSION: No radiographic evidence of acute cardiopulmonary disease. Electronically Signed: Amaury Qiu MD at 1:00 EST , Assessment & Plan Assessment/Plan (1) Cellulitis: QUALIFIERS: Laterality: unspecified laterality Site of cellulitis: extremity Site of cellulitis of extremity: lower extremity Qualified Code(s): L03.119 - Cellulitis of unspecified part of limb (2) Non-pressure chronic ulcer of other part of left foot with fat layer exposed: (3) Polyneuropathy: (4) Delirium: (5) Mild cognitive impairment: (6) Adverse drug reaction: QUALIFIERS: Encounter type: initial encounter Qualified Code(s): T50.905A - Adverse effect of unspecified drugs, medicaments and biological substances, initial encounter (7) Hypertensive urgency: (8) Chronic low back pain: QUALIFIERS: Back pain laterality: unspecified Sciatica presence: unspecified whether sciatica present Qualified Code(s): M54.5 - Low back pain; G89.29 - Other chronic pain (9) Debility: (10) Gait disorder: PLAN: Plan 1. Bilateral LE Cellulitis in the setting of Chronic LLE Wound with known severe PAD and Peripheral Neuropathy - Admit to PCU. Start empiric IV Vancomycin and IV Zosyn and await culture and sensitivity data. Check Wound PCR MRSA. Give Tylenol prn for pain or fever. Finally, we will consult Wound RN to see this patient on-rounds in the AM for further recommendations with help appreciated in advance. 2. Acute Delirium with intermittent confusion arising from #1 & #3 in the setting of Chronic Mild Cognitive Impairment - Minimize [employer]OR-active medications. Check MRI of the brain to evaluate for possible inflammation or lesion that would explain his symptoms. Check TSH, B12, Folate, HgbA1c, JANICE and UDS to evaluate for potentially reversible causes of confusion. Otherwise, continue treatment plan as outlined and monitor for improvement. 3. Suspected Adverse Drug Reaction to COVID vaccine complicating #1 & #2 with a previously documented case of COVID (2019) and severe symptoms coinciding with his acute decline directly after administration preceding acute infection by approximately eight days - Patient should likely avoid further vaccinations against COVID as current risk outweighs the potential theoretical future benefit. Therefore, I spoke with the pharmacist on-call and had this agent added to his allergy list to in an effort to minimize the risk of a similar issue in the future. 4. Hypertensive Urgency with significantly elevated blood pressure of 190/109 mmHg present on admission compounding #1 - #3 - Continue home regimen plus give prn IV Hydralazine for systolic blood pressure > 160 mmHg. 5. OA; with stenosis of lumbar spine plus DDD; s/p back surgery with chronic back pain along with chronic debility and gait disorder who currently resides at [facility] adding to the medical complexity of #1 - #4 - PT/OT and Case Management to consult and treat. 6. Hyperlipidemia; on atorvastatin - Resume statin and check Lipid Profile. 7. CAD; s/p NSTEMI with multiple subsequent stents on ISMO - Continue ISMO as before. 8. History of atrial fibrillation (2020); not on anticoagulation - Noted with patient currently in NSR. 9. History of RBBB - Noted. 10. PAD; s/p stent (2013) with history of chronic ulcers on both feet - Noted. 11. History of LGIB - Noted with no signs of recurrence at this time. 12. History of rectal prolapse - Noted. 13. ZEYNEP - Continue CPAP as previous. 14. SCOTT - Resume current iron supplementation with normal hemoglobin of 13.1 g/dL present on admission. 15. History of depression; on duloxetine and mirtazapine - Maintain home medications. 16. History of prostate cancer; s/p prostatectomy - Noted. 17. History of UTI - Noted. 18. History of septic shock - Noted. 19. GERD - Stable with patient not currently on H2-juan a or PPI. 20. History of hernia repair - Noted. 21. DVT prophylaxis - Lovenox 40 mg sq daily. We will avoid SCD's due to LE ulcers. Total time: Approximately (but not less than) 75 minutes. Charges/Coding Visit Charges Inpatient E&M: 72588 Init Hosp L3
[2024-03-08 03:13] LABS: Troponin-I HS 45 pg/mL (3.0-78.0)
[2024-03-08] MEDS: 0.9% Normal Saline (1000mL) 1,000 ML 30 ML IV (04:29)
[2024-03-08] MEDS: Vancomycin HCl 1,750 MG in 0.9% Normal Saline (500mL Bag) 500 ML 250 MG IV (04:43)
[2024-03-08] MEDS: Aspirin 81 MG TAB.CHEW PO (04:55)
--- NOTE | 2024-03-08 04:55 | PCM.RX.CS ---
Consult Antibiotic Management Pharmacy has been consulted to manage selected antibiotic: Vancomycin Type of Intervention Type of Consult: New start Suspected Infection Suspected Infection: Skin/Soft tissue Labs Labs: Sodium 143 mmol/L (136-145) 03/08/24 00:27 Potassium 4.1 mmol/L (3.5-5.1) 03/08/24 00:27 Chloride 109 mmol/L (98-107) H 03/08/24 00:27 Carbon Dioxide 30.0 mmol/L (21.0-32.0) 03/08/24 00:27 Anion Gap 4 (5-15) L 03/08/24 00:27 BUN 22 mg/dL (7-18) H 03/08/24 00:27 Creatinine 1.17 mg/dL (0.70-1.30) 03/08/24 00:27 Est GFR (MDRD) Af Amer 75 mL/min (>60) 03/08/24 00:27 Est GFR (MDRD) Non-Af 62 mL/min (>60) 03/08/24 00:27 BUN/Creatinine Ratio 18.8 RATIO (10-20) 03/08/24 00:27 Glucose 110 mg/dL (74-106) H 03/08/24 00:27 Microbiology Microbiology: Microbiology 03/08/24 00:35 Mucosa - Nose SARS-CoV-2, Influenza & RSV (PCR) - Final Dosing Weight Weight used for dosin.2 kg Estimated Creatinine Clearance Estimated Creatinine Clearance: 43 Goal Trough Goal Trough: 15-20 mcg/mL Pharmacy Plan for Drug Dosing Pharmacy Plan for Drug Dosing: Pharmacy Service will continue to monitor and adjust dosing as required. Follow-Up Labs Follow-Up Labs: Trough: Vancomycin Date/Time Labs Ordered Labs to be done on [date and time ordered]: 03/09/24 @1600
[2024-03-08] MEDS: Piperacil/Tazobactam 3.375 GM in 0.9% Normal Saline (50mL MB+) 50 ML IV ×3 (06:46→21:38)
[2024-03-08 07:32] LABS: M R Staph aureus DNA By PCR Negative (Negative); Probe Check PASS; Specimen Processing Control PASS; Staph aureus DNA By PCR POSITIVE (Negative)
[2024-03-08 08:32] LABS: Basophil# 0.04 X10^3/uL; Basophil% 0.6 % (0-1); Eosinophil# 0.26 X10^3/uL; Eosinophils% 3.8 % (0-5); Hematocrit 38.4 % (40-54); Hemoglobin 12.3 g/dL (13.0-16.5); Lymphocyte % 10.1 % (19-41); Mean Corpuscular Hgb 33.3 pg (27.0-32.0); Mean Corpuscular Volume 104.1 fL (80-94); Mean Platelet Vol. 9.2 fl (6.2-12.0); Monocyte# 0.86 X10^3/uL; Monocyte% 12.5 % (0-10); NRBC Flagged by Analyzer 0 % (0-5); Neutrophil % 72.4 % (47-70); Platelet Count 285 K/mm3 (150-450); RBC Distribution Width CV 15.4 % (11.6-14.6); RBC Distribution Width SD 59.3 fl (35.1-43.9); Red Blood Count 3.69 M/mm3 (4.6-6.2); White Blood Count 6.9 K/mm3 (4.4-11.0)
[2024-03-08 08:38] LABS: Amphetamine Urine VISTA NEGATIVE (<1000 ng/mL); Barbiturate Urine VISTA NEGATIVE (< 200 ng/mL); Benzodiazepine Urine VISTA NEGATIVE (< 200 ng/mL); Cocaine Urine VISTA NEGATIVE (< 300 ng/mL); Ecstacy Urine VISTA NEGATIVE (< 500 ng/mL); Methadone Urine VISTA NEGATIVE (< 300 ng/mL); PCP Urine VISTA NEGATIVE (< 25 ng/mL); THC Urine VISTA NEGATIVE (< 50 ng/mL); Vista UDS pH Range 6
[2024-03-08 08:51] LABS: Alcohol, Blood (Medical)-Serum < 3.0 mg/dL
[2024-03-08 08:59] LABS: Phosphorus 3.2 mg/dL (2.5-4.9)
[2024-03-08 09:00] LABS: Vitamin B12 244 pg/mL (211-911)
[2024-03-08 09:08] LABS: ALB/GLOB Ratio 0.7 RATIO (0.9-2.4); AST(SGOT) 20 U/L (15-37); Alanine Aminotransfer ALT/SGPT 12 U/L (16-61); Albumin, Serum 2.5 g/dL (3.2-5.0); Alkaline Phosphatase 97 U/L (45-117); Anion Gap 4 (5-15); BUN 16 mg/dL (7-18); Calcium,Total 8.9 mg/dL (8.5-10.1); Chloride 112 mmol/L (98-107); Cholesterol 116 mg/dL (200); Creatinine, Serum 0.89 mg/dL (0.70-1.30); EST Glomerular Filtration Rate 86 mL/min (>60); Est Glom Filt Rate - Afr Amer 104 mL/min (>60); Estimated Creatinine Clearance 55.07 ml/min; Globulin 3.8 g/dL (2.2-4.2); Glucose 94 mg/dL (74-106); High Density Lipoprotein 47 mg/dL; Magnesium 2.1 mg/dL (1.6-2.6); Potassium 3.5 mmol/L (3.5-5.1); Protein, Total 6.3 g/dL (6.4-8.2); Sodium Level 144 mmol/L (136-145); Thyroid Stim Hormone (TSH) 0.668 uIU/mL (0.358-3.740); Triglycerides 106 mg/dL; Very Low Density Lipoprotein 21 mg/dL (5-40)
[2024-03-08 09:29] LABS: Hemoglobin A1c 5.7 % (3.8-5.6)
--- NOTE | 2024-03-08 09:47 | CASEMGMT ---
Discharge Planning Updates sent to [facility]. Requested wknd phone/fax. Love Patricio DC Planning Asst.
--- NOTE | 2024-03-08 09:54 | CASEMGMT ---
Social Work Call placed to pt son/HCPOA Wesley Chandler to discuss discharge. 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 DC technical support assistant updated and to update [place]. Green Sheet on chart to facility a weekend discharge is warranted. Plan: Return to [place], when medically ready ABDON Recio
[2024-03-08] MEDS: Cholecalciferol (Vit D3) 125 MCG CAPSULE (5,000 UNITS) PO (10:53)
[2024-03-08] MEDS: Lactobacillis Acidophilus 1 CAP PO ×4 (10:53→21:38)
[2024-03-08] MEDS: Ascorbic Acid 500 MG Tablet 1000 MG PO ×2 (10:53→17:59)
[2024-03-08] MEDS: Zinc Sulfate 50 mg zinc (220 mg) ORAL capsule PO (10:54)
[2024-03-08] MEDS: Enoxaparin 40 MG/0.4 ML Syringe SC (10:54)
[2024-03-08] MEDS: 0.9% Saline Lock 10 ML Syringe IV ×2 (10:57→21:39)
--- NOTE | 2024-03-08 11:06 | PN.HOSP_ITS ---
Hospitalist Note 88-year-old male history of CAD with stents, A-fib, hypertension, PAD with stents, ZEYNEP, GI bleed, mild cognitive impairment, depression, prostate cancer status post prostatectomy, GERD, lumbar spine stenosis who presented [facility] ED 03/08/2024 due to increasing confusion, hypertension, increasing leg redness. Symptoms began 9 days prior to admission with intermittent confusion that seem to start after receiving a COVID vaccination. At his baseline he is alert and oriented x 3 but when ECF staff checked on him his blood pressure was noted to be 190s systolic and he was only A&O x 1 and he also had increased redness of his legs so they sent him to the ED for further evaluation. In the ED he was diagnosed with leg cellulitis in setting of known left lower extremity ulcer as well as acute delirium and hypertensive urgency. Hospitalist contacted for admission. Patient admitted and started on empiric vancomycin and Zosyn while obtaining cultures and wound care was consulted. MRI of brain was ordered with his acute delirium and as needed hydralazine was ordered. Patient was placed on BiPAP early in the morning as there is a questionable history of sleep apnea and he was having prolonged pauses on telemetry. Longest pause was around 12 seconds. Cardiology consulted and recommended transfer for pacemaker placement to which patient and son were agreeable. Patient be transferred to outside facility for placement. # Prolonged pauses on telemetry -Multiple long pauses with the longest measuring 12 seconds -Cardiology consulted -Transfer for permanent pacemaker placement recommended-patient accepted at [facility], pending transfer -Magnesium and potassium within normal limits # Left lower extremity cellulitis -Continue broad-spectrum antibiotics, narrow as able # Delirium on mild cognitive disorder -Patient awake and alert and sitting up in chair, interactive and pleasant -Suspect encephalopathy was secondary to underlying infection as he is improving with antibiotics, will cancel MRI given improvement with treatment of underlying infection # Hypertensive urgency -Hydralazine as needed, his metoprolol and lisinopril had been held, given his prolonged pauses on telemetry we will continue to hold metoprolol -BP this a.m. 123/99 # History of coronary artery disease and PAD s/p stenting -Continue aspirin and statin -Follows cardiology on outpatient basis # History of A-fib -Not on anticoagulation -Currently in A-fib, beta-juan a held with patient's prolonged pauses #Depression/anxiety -Continue Cymbalta # History of heart failure preserved ejection fraction -Echo with EF 50 to 55% back in 2020 and a previous echo with stage II diastolic dysfunction -Monitor daily weights and I's and O's as his Lasix are presently held #DVT ppx: Lovenox subcu Dia Perez MD
--- NOTE | 2024-03-08 12:22 | CON.PCM.CA_ITS ---
<Statement entered by Kenji Chavez MD - 03/08/24 14:54> Pt seen & evaluated w/JIM. I personally interviewed & exam the pt. I was involved in all aspects of pt's orders, interpretation of results & treatment Assessment & Plan Assessment/Plan (1) Atrial fibrillation with RVR: (2) Sick sinus syndrome: (3) History of coronary artery stent placement: (4) Peripheral arterial occlusive disease: (5) Essential (primary) hypertension: PLAN: Plan * Patient does have atrial fibrillation with RVR. He is currently having long pauses. He is on rate limiting medication however feel that if this is discontinued we will not be able to control his atrial fibrillation. Because of this feel that he should be transferred out to a tertiary care facility for consideration of pacemaker placement. This was explained in detail to son and patient. They are agreeable with this. Since patient is in persistent atrial fibrillation, he may benefit from a Micra pacemaker placement. This was explained with hospitalist. They will work on transfer to an outside facility. HPI Consult Data Date of Consult: 03/08/24 HPI Narrative HPI Narrative: FEI OLEARY, is a 88 M who presented to [facility] ER this morning for an altered LOC. He was admitted for confusion, Elevated Blood Pressure and Leg Redness. On his telemetry strips this morning he was noted to have pauses up to 12 seconds. He was placed on his Bipap, this did help with his pauses. He has a history of coronary artery disease status post angioplasty and stenting of the right coronary artery ?2 in 2004 restenosis in 2011 and again in 2013 and 2015. He also has significant peripheral vascular disease and he has had stents placed to his right lower extremity due to ulcers that were not healing. He did present to the hospital again in June 2019 with chest discomfort and had a non- ST elevation myocardial infarction with peak troponin at 1.15. He underwent a cardiac catheterization which demonstrated a totally occluded right coronary artery with [id number] collaterals. The proximal LAD had a 30% stenosis, first diagonal vessel with 70% stenosis, circumflex artery with a 30% stenosis. Medical therapy was recommended. Echocardiogram on 08/27/2020 that showed ejection fraction of 50-55%, moderately enlarged left atrium, mildly enlarged right atrium, moderate mitral valve insufficiency, and mild aortic valve insufficiency. He underwent lower extremity angioplasty and stenting on 03/22/2022 with [facility] provider Dr. Benja Ricketts. His 2 stents within the proximal SFA appeared patent. He underwent stenting x2 to left popliteal artery and left superficial femoral artery. He underwent drug-eluting stent to left tibial?peroneal trunk. He underwent percutaneous intervention without stenting to ostial and proximal left common femoral artery. He does also does have a hx of atrial fib. He resides at [facility]. Son states he they have been working with vascular for his wounds on his legs. Pt does not recall any lightheadedness or dizziness, He has not had any falls but does not get out of bed. [facility] Medical History (Updated 03/08/24 @ 12:48 by Rosi SAGE, PA) Sick sinus syndrome Large bowel bleed Non-smoker Atrial fibrillation Diabetes Hallucinations Dementia Gait disorder Cancer Sleep apnea Chest pain Hypertension Carpal tunnel syndrome on both sides History of non-ST elevation myocardial infarction (NSTEMI) (07/02/19) UTI (urinary tract infection) Atrial fibrillation with RVR (05/28/20) Acute diarrheal illness Acute kidney injury Pneumonia due to COVID-19 virus (03/23/20) Septic shock PAD (peripheral artery disease) Delayed wound healing Debility Nonhealing ulcer of left lower extremity with fat layer exposed Non-healing ulcer of right foot with fat layer exposed Neuropathy Rectal prolapse Right bundle branch block (RBBB) Open wound of finger of left hand Chronic pain of right heel Ulcer of right lower extremity with fat layer exposed Ulcer of right heel Peripheral arterial occlusive disease Urinary incontinence Essential (primary) hypertension Spondylolisthesis Lumbar stenosis Peripheral neuropathy Retinopathy due to secondary diabetes Atherosclerotic heart disease of [place] coronary artery without angina pectoris DDD (degenerative disc disease) GERD (gastroesophageal reflux disease) Prostate cancer Obstructive sleep apnea Hyperlipidemia Home Medications ?Medication ?Instructions ?Recorded ?Last Taken ?Type duloxetine 30 mg capsule,delayed 30 mg PO DAILY DEPRESSION 03/06/19 06/30/22 History release atorvastatin 20 mg tablet 20 mg PO QHS CHOLESTEROL #90 tabs 06/10/19 06/29/22 Rx Motorized wheelchair #1 ea 06/29/22 Unknown Rx acetaminophen 500 mg tablet 1,000 mg PO TID LOWER BACK PAIN 06/30/22 03/07/24 History furosemide 40 mg tablet (Lasix) 20 mg PO DAILY FLUID 06/30/22 06/30/22 History metoprolol succinate 100 mg 100 mg PO DAILY BLOOD PRESSURE 06/30/22 06/30/22 History tablet,extended release 24 hr mirtazapine 30 mg tablet 15 mg PO QHS DEPRESSION 06/30/22 06/29/22 History potassium chloride 10 mEq 40 meq PO DAILY SUPPLEMENT 06/30/22 03/07/24 History tablet,extended release(part/cryst) isosorbide mononitrate 60 mg 60 mg PO DAILY #30 tabs 04/20/23 Unknown Rx tablet,extended release 24 hr memantine 28 mg capsule 28 mg PO DAILY #30 ea 05/16/23 Unknown Rx sprinkle,extended release 24hr ferrous sulfate 325 mg (65 mg 325 mg PO DAILY Supplement 03/08/24 03/07/24 History iron) tablet lisinopril 5 mg tablet 5 mg PO DAILY 03/08/24 Unknown History polyethylene glycol 400 1 % eye 2 drp EACH EYE BID Dry eyes 03/08/24 03/07/24 History drops (Dry Eye Relief (PEG 400)) Allergy/AdvReac Type Severity Reaction Status Date / Time latex Allergy Unknown unknown Verified 03/08/24 00:12 carisoprodol Allergy Other Verified 03/08/24 00:12 itraconazole Allergy Other Verified 03/08/24 00:12 COVID-19 (SARS-CoV-2) AdvReac Other Verified 03/08/24 06:12 vaccine, jeanie Family History Mother CVA (cerebral vascular accident) Sister Hypertension Surgical History History of coronary artery stent placement History of left heart catheterization (07/02/19) History of angioplasty of peripheral vessel (10/23/13) History of coronary artery stent placement (10/07/15) History of back surgery History of shoulder surgery History of hernia repair History of tonsillectomy History of prostatectomy Social History housing: long term Smoking Status: Never smoker alcohol intake: never substance use type: does not use caffeine: Yes Type: tea what type of physical activity do you participate in: none seatbelt use: always do you feel safe at home: Yes ROS ROS Narrative Constitutional Constitutional: Reports fatigue and lethargy Eyes Eyes: Denies change in vision ENT HEENT: Denies dizziness or epistaxis Cardiovascular Cardiovascular: Denies chest pain, diaphoresis, dizziness, dyspnea or dyspnea at rest Respiratory/Chest Respiratory/Chest: Denies dyspnea or dyspnea on exertion Gastrointestinal Gastrointestinal: Denies abdominal pain or heartburn Physical Exam Const alert, oriented x3 and no apparent distress General Appearance: frail Exam Limitations: physical limitations HEENT normocephalic and head/scalp atraumatic; Negative for hearing grossly normal bilaterally Nose: external nose normal Eyes PERRL, EOMs intact bilaterally and conjunctivae normal Resp Auscultation: diminished lung sounds bilateral Cardio Rhythm: abnormal rhythm irregularly irregular Heart Sounds: Negative for click, gallop or murmur GI normal to inspection, nondistended, normoactive bowel sounds, soft to palpation and non-tender Neuro oriented x3 Risk Stratification Risk Stratification Applicable: No Charges/Coding Multi Select Codes Visit Charges Office Visit/Consults: 03230 IP Consult L3 Objective Data Vital Signs: Vital Signs Temp Pulse Resp BP Pulse Ox O2 Del Method FiO2 97.7 F L 112 H 18 123/99 H 98 Room Air 30 03/08/24 10:00 03/08/24 10:00 03/08/24 10:00 03/08/24 10:00 03/08/24 10:00 03/08/24 10:00 03/08/24 09:35 Oxygen Delivery Method Room Air Weight: 152 lb 8.958 oz Body Mass Index (BMI) 22.5 Intake & Output: Intake and Output for Last 24 Hours 03/06/24 03/07/24 03/08/24 23:59 23:59 23:59 Intake Total 1585 / 1585 Output Total 325 / 325 Balance 1260 / 1260 Lab / Micro Data 03/08/24 08:11 03/08/24 08:11 Labs: Laboratory Results - last 24 hr 03/08/24 00:27: WBC 6.4, RBC 3.97 L, Hgb 13.1, Hct 40.7, MCV 102.5 H, MCH 33.0 H , MCHC 32.2, RDW Std Deviation 57.4 H, RDW Coeff of Ayesha 15.4 H, Plt Count 311, MPV 9.1, Immature Gran % (Auto) 0.600, Neut % (Auto) 64.2, Lymph % (Auto) 17.6 L , [place] % (Auto) 11.7 H, Eos % (Auto) 5.1 H, Baso % (Auto) 0.8, Absolute Neuts (auto) 4.1, Absolute Lymphs (auto) 1.13, Nucleated RBC % 0, PT 13.5, INR 1.0, APTT 29.9, Sodium 143, Potassium 4.1, Chloride 109 H, Carbon Dioxide 30.0, Anion Gap 4 L, BUN 22 H, Creatinine 1.17, Estim Creat Clear Calc 42.80, Est GFR (MDRD) Af Amer 75, Est GFR (MDRD) Non-Af 62, BUN/Creatinine Ratio 18.8, Glucose 110 H, Calcium 9.2, Total Bilirubin 0.30, AST 21, ALT 18, Alkaline Phosphatase 104, Troponin I High Sens 45, Total Protein 7.0, Albumin 2.9 L, Globulin 4.1, A lbumin/Globulin Ratio 0.7 L 03/08/24 00:56: Lactic Acid 1.1 03/08/24 01:00: Urine Color Straw, Urine Clarity Clear, Urine pH 7.0, Ur Specific [place] 1.010, Urine Protein 15 H, Urine Glucose (UA) Normal, Urine Ketones Negative, Urine Occult Blood Negative, Urine Nitrite Negative, Urine Bilirubin Negative, Urine Urobilinogen Normal, Ur Leukocyte Esterase Negative, Urine RBC 0 SEEN, Urine WBC 0 SEEN, Ur Squamous Epith Cells 0 SEEN, Urine Bacteria 0 SEEN, Urine Mucus 0 SEEN, Urine Opiates Screen NEGATIVE, Urine Methadone Screen NEGATIVE, Ur Barbiturates Screen NEGATIVE, Ur Phencyclidine Scrn NEGATIVE, Ur Amphetamines Screen NEGATIVE, MDMA (Ecstasy) Screen NEGATIVE, U Benzodiazepines Scrn NEGATIVE, Urine Cocaine Screen NEGATIVE, U Cannabinoids Screen NEGATIVE, Ur Drug Screen Comment 03/08/24 02:51: Troponin I High Sens 45 03/08/24 04:42: S.aureus Protein A PCR POSITIVE H, MRSA (PCR) Negative 03/08/24 08:11: WBC 6.9, RBC 3.69 L, Hgb 12.3 L, Hct 38.4 L, MCV 104.1 H, MCH 33.3 H, MCHC 32.0, RDW Std Deviation 59.3 H, RDW Coeff of Ayesha 15.4 H, Plt Count 285, MPV 9.2, Immature Gran % (Auto) 0.600, Neut % (Auto) 72.4 H, Lymph % (Auto) 10.1 L, [place] % (Auto) 12.5 H, Eos % (Auto) 3.8, Baso % (Auto) 0.6, Absolute Neuts (auto) 5.0, Absolute Lymphs (auto) 0.70 L, Nucleated RBC % 0, Sodium 144, Potassium 3.5, Chloride 112 H, Carbon Dioxide 27.0, Anion Gap 4 L, BUN 16, Creatinine 0.89, Estim Creat Clear Calc 55.07, Est GFR (MDRD) Af Amer 104, Est GFR (MDRD) Non-Af 86, BUN/Creatinine Ratio 18.0, Glucose 94, Hemoglobin A1c 5.7 H, Calcium 8.9, Phosphorus 3.2, Magnesium 2.1, Total Bilirubin 0.40, AST 20, ALT 12 L, Alkaline Phosphatase 97, Total Protein 6.3 L, Albumin 2.5 L, Globulin 3.8, Albumin/Globulin Ratio 0.7 L, Triglycerides 106, Cholesterol 116, LDL Cholesterol 48, VLDL Cholesterol 21, HDL Cholesterol 47, Vitamin B12 244, Folate 10.00, TSH 0.668, Ethyl Alcohol < 3.0 Micro: Microbiology 03/08/24 04:42 Wound - Leg, Left Gram Stain - Final 03/08/24 00:35 Mucosa - Nose SARS-CoV-2, Influenza & RSV (PCR) - Final Cardiology Labs/Tests 03/08/24 00:27: WBC 6.4, RBC 3.97 L, Hgb 13.1, Hct 40.7, MCV 102.5 H, MCH 33.0 H , MCHC 32.2, Plt Count 311, MPV 9.1, Immature Gran % (Auto) 0.600, Neut % (Auto) 64.2, Lymph % (Auto) 17.6 L, [place] % (Auto) 11.7 H, Eos % (Auto) 5.1 H, Baso % (Auto) 0.8, Absolute Neuts (auto) 4.1, Nucleated RBC % 0, PT 13.5, INR 1.0, APTT 29.9, Sodium 143, Potassium 4.1, Chloride 109 H, Carbon Dioxide 30.0, Anion Gap 4 L, BUN 22 H, Creatinine 1.17, Est GFR (MDRD) Af Amer 75, Est GFR (MDRD) Non-Af 62, BUN/Creatinine Ratio 18.8, Glucose 110 H, Calcium 9.2, Total Bilirubin 0.30 03/08/24 00:56: Lactic Acid 1.1 03/08/24 01:00: Urine Color Straw, Urine Clarity Clear, Urine pH 7.0, Ur Specific [place] 1.010, Urine Protein 15 H, Urine Glucose (UA) Normal, Urine Ketones Negative, Urine Occult Blood Negative, Urine Nitrite Negative, Urine Bilirubin Negative, Urine Urobilinogen Normal, Ur Leukocyte Esterase Negative, Urine RBC 0 SEEN, Urine WBC 0 SEEN 03/08/24 08:11: WBC 6.9, RBC 3.69 L, Hgb 12.3 L, Hct 38.4 L, MCV 104.1 H, MCH 33.3 H, MCHC 32.0, Plt Count 285, MPV 9.2, Immature Gran % (Auto) 0.600, Neut % (Auto) 72.4 H, Lymph % (Auto) 10.1 L, [place] % (Auto) 12.5 H, Eos % (Auto) 3.8, Baso % (Auto) 0.6, Absolute Neuts (auto) 5.0, Nucleated RBC % 0, Sodium 144, Potassium 3.5, Chloride 112 H, Carbon Dioxide 27.0, Anion Gap 4 L, BUN 16, Creatinine 0.89, Est GFR (MDRD) Af Amer 104, Est GFR (MDRD) Non-Af 86, BUN/Creatinine Ratio 18.0, Glucose 94, Hemoglobin A1c 5.7 H, Calcium 8.9, Phosphorus 3.2, Magnesium 2.1, Total Bilirubin 0.40, Triglycerides 106, Cholesterol 116, LDL Cholesterol 48, VLDL Cholesterol 21, HDL Cholesterol 47 Rhythm: EKG: ECHO: Stress Test: Cardiac Cath: PCI: CT Surgery: Holter monitor: EPS: PPM: CXR: Chest CT Scan: Radiography Diagnostic Testing: Radiology Impression Brain CT 03/08/24 00:27 IMPRESSION: No significant interval change. Atrophy and chronic small vessel ischemic changes again noted. No acute findings in the head/brain. Electronically Signed: Amaury Qiu MD at 1:24 EST , Chest X-Ray 03/08/24 00:45 IMPRESSION: No radiographic evidence of acute cardiopulmonary disease. Electronically Signed: Amaury Qiu MD at 1:00 EST ,
--- NOTE | 2024-03-08 13:05 | CASEMGMT ---
Discharge Planning [facility] updated that pt will discharge to tertiary facility. Love Patricio DC Planning Asst.
--- NOTE | 2024-03-08 14:18 | WOUNDNOTE ---
wound photo: right great toe
--- NOTE | 2024-03-08 14:18 | WOUNDNOTE ---
wound photo: right lateral ankle
--- NOTE | 2024-03-08 14:19 | WOUNDNOTE ---
wound photo: left lower leg
--- NOTE | 2024-03-08 14:20 | WOUNDNOTE ---
wound photo: left lower leg
--- NOTE | 2024-03-08 14:20 | WOUNDNOTE ---
wound photo: left foot
--- NOTE | 2024-03-08 15:16 | PCM.DC.SUM ---
Providers Date of Admission: 03/08/24 Date of Discharge: 03/08/24 Primary Care Physician: Dr. Dennys Manley MD Consultations 03/08/24 04:08 Consult: Onc/Wound/die maintenance technician Routine Comment: Reason for Consult:: LLE Wound with Acute Cellulitis. 03/08/24 09:27 Consult: Cardiology Routine Consulting Provider: Kenji Chavez Reason for Consult: long pauses on tele EMERGENT Consult: No MD Notified: Yes Date Notified: 03/08/24 Time Notified: 09:29 Method of Notification: Text Reason For Visit: CELLULITIS OF LEGS, ACUTE DELIRIUM WITH CHRONIC Diagnosis Discharge Diagnosis (1) Atrial fibrillation with RVR: Status: Chronic Code(s): I48.91 - Unspecified atrial fibrillation (2) Sick sinus syndrome: Status: Acute Code(s): I49.5 - Sick sinus syndrome (3) History of coronary artery stent placement: Status: Chronic Code(s): Z95.5 - Presence of coronary angioplasty implant and graft (4) Peripheral arterial occlusive disease: Status: Chronic Code(s): I77.9 - Disorder of arteries and arterioles, unspecified (5) Essential (primary) hypertension: Status: Chronic Code(s): I10 - Essential (primary) hypertension Plan # Prolonged pauses on telemetry # Left lower extremity cellulitis # Metabolic encephalopathy # Hypertensive urgency # History of coronary artery disease and PAD s/p stenting # History of A-fib #Depression/anxiety # History of heart failure preserved ejection fraction Medications at Discharge Home Medications duloxetine 30 mg capsule,delayed release 30 mg PO DAILY DEPRESSION 03/06/19 atorvastatin 20 mg tablet 20 mg PO QHS CHOLESTEROL #90 tabs 06/10/19 Motorized wheelchair #1 ea 06/29/22 acetaminophen 500 mg tablet 1,000 mg PO TID LOWER BACK PAIN 06/30/22 furosemide 40 mg tablet (Lasix) 20 mg PO DAILY FLUID 06/30/22 metoprolol succinate 100 mg tablet,extended release 24 hr 100 mg PO DAILY BLOOD PRESSURE 06/30/22 mirtazapine 30 mg tablet 15 mg PO QHS DEPRESSION 06/30/22 potassium chloride 10 mEq tablet,extended release(part/cryst) 40 meq PO DAILY SUPPLEMENT 06/30/22 isosorbide mononitrate 60 mg tablet,extended release 24 hr 60 mg PO DAILY #30 tabs 04/20/23 memantine 28 mg capsule sprinkle,extended release 24hr 28 mg PO DAILY #30 ea 05/16/23 ferrous sulfate 325 mg (65 mg iron) tablet 325 mg PO DAILY Supplement 03/08/24 lisinopril 5 mg tablet 5 mg PO DAILY 03/08/24 polyethylene glycol 400 1 % eye drops (Dry Eye Relief (PEG 400)) 2 drp EACH EYE BID Dry eyes 03/08/24 Hospital Course Summary of Care Provided Hospital Course: 88-year-old male history of CAD with stents, A-fib, hypertension, PAD with stents, ZEYNEP, GI bleed, mild cognitive impairment, depression, prostate cancer status post prostatectomy, GERD, lumbar spine stenosis who presented [facility] ED 03/08/2024 due to increasing confusion, hypertension, increasing leg redness. Symptoms began 9 days prior to admission with intermittent confusion that seem to start after receiving a COVID vaccination. At his baseline he is alert and oriented x 3 but when ECF staff checked on him his blood pressure was noted to be 190s systolic and he was only A&O x 1 and he also had increased redness of his legs so they sent him to the ED for further evaluation. In the ED he was diagnosed with leg cellulitis in setting of known left lower extremity ulcer as well as acute delirium and hypertensive urgency. Hospitalist contacted for admission. Patient admitted and started on empiric vancomycin and Zosyn while obtaining cultures and wound care was consulted. MRI of brain was ordered with his acute delirium and as needed hydralazine was ordered. Patient was placed on BiPAP early in the morning as there is a questionable history of sleep apnea and he was having prolonged pauses on telemetry. Longest pause was around 12 seconds. Cardiology consulted and recommended transfer for pacemaker placement to which patient and son were agreeable. Patient be transferred to outside facility for placement. Patient was accepted at [facility] and was transferred there in stable condition. Weight / BMI Weight Weight: 69.2 kg Body Mass Index (BMI) 22.5 ABG / Lab / Microbiology Data 03/08/24 08:11 03/08/24 08:11 Laboratory: Laboratory Results - last 24 hr 03/08/24 00:27: WBC 6.4, RBC 3.97 L, Hgb 13.1, Hct 40.7, MCV 102.5 H, MCH 33.0 H, MCHC 32.2, RDW Std Deviation 57.4 H, RDW Coeff of Ayesha 15.4 H, Plt Count 311, MPV 9.1, Immature Gran % (Auto) 0.600, Neut % (Auto) 64.2, Lymph % (Auto) 17.6 L, [place] % (Auto) 11.7 H, Eos % (Auto) 5.1 H, Baso % (Auto) 0.8, Absolute Neuts (auto) 4.1, Absolute Lymphs (auto) 1.13, Nucleated RBC % 0, PT 13.5, INR 1.0, APTT 29.9, Sodium 143, Potassium 4.1, Chloride 109 H, Carbon Dioxide 30.0, Anion Gap 4 L, BUN 22 H, Creatinine 1.17, Estim Creat Clear Calc 42.80, Est GFR (MDRD) Af Amer 75, Est GFR (MDRD) Non-Af 62, BUN/Creatinine Ratio 18.8, Glucose 110 H, Calcium 9.2, Total Bilirubin 0.30, AST 21, ALT 18, Alkaline Phosphatase 104, Troponin I High Sens 45, Total Protein 7.0, Albumin 2.9 L, Globulin 4.1, Albumin/Globulin Ratio 0.7 L 03/08/24 00:56: Lactic Acid 1.1 03/08/24 01:00: Urine Color Straw, Urine Clarity Clear, Urine pH 7.0, Ur Specific [place] 1.010, Urine Protein 15 H, Urine Glucose (UA) Normal, Urine Ketones Negative, Urine Occult Blood Negative, Urine Nitrite Negative, Urine Bilirubin Negative, Urine Urobilinogen Normal, Ur Leukocyte Esterase Negative, Urine RBC 0 SEEN, Urine WBC 0 SEEN, Ur Squamous Epith Cells 0 SEEN, Urine Bacteria 0 SEEN, Urine Mucus 0 SEEN, Urine Opiates Screen NEGATIVE, Urine Methadone Screen NEGATIVE, Ur Barbiturates Screen NEGATIVE, Ur Phencyclidine Scrn NEGATIVE, Ur Amphetamines Screen NEGATIVE, MDMA (Ecstasy) Screen NEGATIVE, U Benzodiazepines Scrn NEGATIVE, Urine Cocaine Screen NEGATIVE, U Cannabinoids Screen NEGATIVE, Ur Drug Screen Comment 03/08/24 02:51: Troponin I High Sens 45 03/08/24 04:42: S.aureus Protein A PCR POSITIVE H, MRSA (PCR) Negative 03/08/24 08:11: WBC 6.9, RBC 3.69 L, Hgb 12.3 L, Hct 38.4 L, MCV 104.1 H, MCH 33.3 H, MCHC 32.0, RDW Std Deviation 59.3 H, RDW Coeff of Ayesha 15.4 H, Plt Count 285, MPV 9.2, Immature Gran % (Auto) 0.600, Neut % (Auto) 72.4 H, Lymph % (Auto) 10.1 L, [place] % (Auto) 12.5 H, Eos % (Auto) 3.8, Baso % (Auto) 0.6, Absolute Neuts (auto) 5.0, Absolute Lymphs (auto) 0.70 L, Nucleated RBC % 0, Sodium 144, Potassium 3.5, Chloride 112 H, Carbon Dioxide 27.0, Anion Gap 4 L, BUN 16, Creatinine 0.89, Estim Creat Clear Calc 55.07, Est GFR (MDRD) Af Amer 104, Est GFR (MDRD) Non-Af 86, BUN/Creatinine Ratio 18.0, Glucose 94, Hemoglobin A1c 5.7 H, Calcium 8.9, Phosphorus 3.2, Magnesium 2.1, Total Bilirubin 0.40, AST 20, ALT 12 L, Alkaline Phosphatase 97, Total Protein 6.3 L, Albumin 2.5 L, Globulin 3.8, Albumin/Globulin Ratio 0.7 L, Triglycerides 106, Cholesterol 116, LDL Cholesterol 48, VLDL Cholesterol 21, HDL Cholesterol 47, Vitamin B12 244, Folate 10.00, TSH 0.668, Ethyl Alcohol < 3.0 Microbiology: Microbiology 03/08/24 04:42 Wound - Leg, Left Gram Stain - Final 03/08/24 00:35 Mucosa - Nose SARS-CoV-2, Influenza & RSV (PCR) - Final Radiography Diagnostic Testing: Radiology Impression Brain CT 03/08/24 00:27 IMPRESSION: No significant interval change. Atrophy and chronic small vessel ischemic changes again noted. No acute findings in the head/brain. Electronically Signed: Amaury Qiu MD at 1:24 EST , Chest X-Ray 03/08/24 00:45 IMPRESSION: No radiographic evidence of acute cardiopulmonary disease. Electronically Signed: Amaury Qiu MD at 1:00 EST , D/C Instructions DC O2, CPAP, BIPAP Needs PSN CPAP & BiPAP: BiPAP & CPAP Settings per PSN Mode BiPAP 03/08/24 09:35 Bipap Delivery Device Face Mask 03/08/24 09:35 BiPAP Inspiratory Pressure 14 03/08/24 09:35 BiPAP Expiratory Pressure 8 03/08/24 09:35 BiPAP Rate 14 03/08/24 09:35 Fraction of Inspired Oxygen ( 30 03/08/24 09:35 FIO2) Additional Home O2 Discharge instructions: No DC home with Oxygen: No Meaningful Use Info Meaningful Use Meaningful Use Diagnoses (Choose all that apply): None applicable Ischemic Stroke Statin Dosing Therapy Reference: STATIN DOSE THERAPY REFERENCE: * Patients > 75 years receive moderate or high dose statin therapy. * Patients 75 years or YOUNGER should receive HIGH intensity statin dose unless contraindicated. You will be required to document reason for non-treatment if statin daily dose does not meet guidelines. HIGH DOSE STATIN THERAPY DAILY Atorvastatin > than or = to 40 mg Rosuvastatin > than or = to 20 mg Amlodipine + Atorvastatin > than or = to 2.5/40 mg Ezetimibe + Simvastatin 10/80 mg Simvastatin 80mg Discharge Plan Admission Admit Date/Time: 03/08/24 03:48 Attending Provider: Dia Perez Primary Care Provider: Dennys Manley Consulting Providers: Remy Macias; Kenji Chavez Discharge Orders/Prescriptions Prescriptions: No Action duloxetine 30 mg capsule,delayed release(DR/EC) 30 mg PO DAILY (DME) Motorized wheelchair See Rx Instructions .Route .MEDSUPPLY Qty: 1 0RF Rx Instructions: As directed memantine 28 mg capsule,sprinkle,ER 24hr 28 mg PO DAILY Qty: 30 6RF Rx Instructions: Week #4 and thereafter mirtazapine 30 mg Tablet 15 mg PO QHS furosemide [Lasix] 40 mg tablet 20 mg PO DAILY metoprolol succinate 100 mg tablet extended release 24 hr 100 mg PO DAILY acetaminophen 500 mg Tablet 1,000 mg PO TID potassium chloride 10 mEq tablet,ER particles/crystals 40 meq PO DAILY Dry Eye Relief (PEG 400) 1 % drops 2 drp EACH EYE BID lisinopril 5 mg tablet 5 mg PO DAILY ferrous sulfate 325 mg (65 mg iron) tablet 325 mg PO DAILY atorvastatin 20 mg tablet 20 mg PO QHS Qty: 90 3RF isosorbide mononitrate 60 mg tablet extended release 24 hr 60 mg PO DAILY Qty: 30 11RF Referrals / Follow Up: Dennys Manley MD [Primary Care Provider] - Disposition Disposition (needs filled in before D/C Order can be placed): [facility]
[2024-03-08] MEDS: Vancomycin IV 500 MG/100 ML BAG 100 MG IV (16:28)
[2024-03-08] MEDS: Acetaminophen 500 MG Tablet 1000 MG PO (20:38)
[2024-03-08] MEDS: Atorvastatin Calcium 20 MG Tablet PO (21:38)
[2024-03-08] MEDS: MELATONIN 3 MG TABLET PO (21:38)
[2024-03-09 01:36] VITALS: BP 119/82; PULSE 96; RESP 19; TEMP 36.8; O2SAT 95
--- NOTE | 2024-03-09 02:34 | NURSING ---
Updated report called to after patient departed.
== END 2024-03-09 02:25 | disposition short-term general hospital (02) | DRG 602 ==
LOC: ED 02:10 → PCU 03:53
PROVIDERS: Admitting Provider Internal Medicine; Emergency Provider Surgery; PCP Internal Medicine; Visit Provider Internal Medicine
DX: L03.115 Cellulitis of right lower limb (principal); G93.41 Metabolic encephalopathy; F05 Delirium due to known physiological condition; I48.19 Other persistent atrial fibrillation; L97.229 Non-pressure chronic ulcer of left calf with unspecified severity; I16.0 Hypertensive urgency; E13.42 Other specified diabetes mellitus with diabetic polyneuropathy; F32.A Depression, unspecified; I08.0 Rheumatic disorders of both mitral and aortic valves; I77.9 Disorder of arteries and arterioles, unspecified; E13.621 Other specified diabetes mellitus with foot ulcer; G47.33 Obstructive sleep apnea (adult) (pediatric); K21.9 Gastro-esophageal reflux disease without esophagitis; E13.51 Other specified diabetes mellitus with diabetic peripheral angiopathy without gangrene; M48.061 Spinal stenosis, lumbar region without neurogenic claudication; E78.5 Hyperlipidemia, unspecified; L97.522 Non-pressure chronic ulcer of other part of left foot with fat layer exposed; I25.10 Atherosclerotic heart disease of native coronary artery without angina pectoris; E13.622 Other specified diabetes mellitus with other skin ulcer; F41.9 Anxiety disorder, unspecified; I25.2 Old myocardial infarction; I49.5 Sick sinus syndrome; I10 Essential (primary) hypertension; L03.116 Cellulitis of left lower limb; R53.81 Other malaise; M51.360 Other intervertebral disc degeneration, lumbar region with discogenic back pain only; Z95.5 Presence of coronary angioplasty implant and graft; G89.29 Other chronic pain; Z86.16 Personal history of COVID-19; Z82.3 Family history of stroke; Z79.82 Long term (current) use of aspirin
CPT/HCPCS: 36415; 70450; 71045; 80053; 80061; 80307; 81001; 82077; 82607; 82746; 83036; 83605; 83735; 84100; 84443; 84484; 85025; 85610; 85730; 87040; 87070; 87077; 87186; 87205; 87631; 87640; 93005; 94002; 99285; J7030; J7040; A4216

== ENCOUNTER 2024-04-28 07:34 | Emergency (ER) | payer MEDICARE, OTHER, SELFPAY ==
[2024-04-28 07:36] VITALS: BP 185/65; PULSE 78; RESP 16; TEMP 36.4; O2SAT 97; BMI 22.8
--- NOTE | 2024-04-28 07:44 | RAD_ITS ---
INDICATION: bruising, tenderness EXAMINATION/TECHNIQUE: X-RAY - RIGHT XR Elbow Min 3 Views COMPARISON: May 05, [address] dated April 28, 2024 FINDINGS: SOFT TISSUES: No soft tissue swelling or gas. No radiopaque foreign body. BONES/JOINTS: There is no displacement of the anterior or posterior fat pads. No acute fracture or subluxation. Normal alignment. There are degenerative changes. There is an enthesophyte arising from the olecranon. No sclerotic or destructive changes observed. RAD/Elbow min 3 Views IMPRESSION: Degenerative changes. Electronically Signed: Iveth Dewey MD at 9:39 EST ,
--- NOTE | 2024-04-28 07:46 | EX.ED.UPPERE ---
HPI History of Present Illness Chief Complaint: Wound Check Narrative Narrative: 88-year-old male past medical history of coronary artery disease on aspirin and cooperative gel presents from [facility] with concern for bruising of his right upper extremity. longterm facility relates history that he was seen at for angioplasty on the seventh, 5 days ago. He returned on the 10th, 2 days ago, and there was bruising on his right upper extremity on the posterior portion of his elbow. He denies any trauma, no other bleeding diathesis. He states that the area is tender. There is concern that the bruising is getting worse. Patient denies other symptoms, no chest pain or shortness of breath. His history and physical is mildly limited secondary to dementia, and he cannot recall if he had an IV in place on that side of his body in that arm. [facility] Medical History Large bowel bleed Non-smoker Atrial fibrillation Diabetes Hallucinations Dementia Gait disorder Cancer Sleep apnea Chest pain Hypertension Carpal tunnel syndrome on both sides History of non-ST elevation myocardial infarction (NSTEMI) (07/02/19) UTI (urinary tract infection) Atrial fibrillation with RVR (05/28/20) Acute diarrheal illness Acute kidney injury Pneumonia due to COVID-19 virus (03/23/20) Septic shock PAD (peripheral artery disease) Delayed wound healing Debility Nonhealing ulcer of left lower extremity with fat layer exposed Non-healing ulcer of right foot with fat layer exposed Neuropathy Rectal prolapse Right bundle branch block (RBBB) Open wound of finger of left hand Chronic pain of right heel Ulcer of right lower extremity with fat layer exposed Ulcer of right heel Peripheral arterial occlusive disease Urinary incontinence Essential (primary) hypertension Spondylolisthesis Lumbar stenosis Peripheral neuropathy Retinopathy due to secondary diabetes Atherosclerotic heart disease of [place] coronary artery without angina pectoris DDD (degenerative disc disease) GERD (gastroesophageal reflux disease) Prostate cancer Obstructive sleep apnea Hyperlipidemia Home Medications ?Medication ?Instructions ?Recorded ?Last Taken ?Type duloxetine 30 mg capsule,delayed 30 mg PO DAILY DEPRESSION 03/06/19 04/25/24 History release atorvastatin 20 mg tablet 20 mg PO QHS CHOLESTEROL #90 tabs 06/10/19 04/24/24 Rx Motorized wheelchair #1 ea 06/29/22 Unknown Rx acetaminophen 500 mg tablet 1,000 mg PO TID PRN LOWER BACK PAIN 06/30/22 04/23/24 History furosemide 40 mg tablet (Lasix) 20 mg PO DAILY FLUID 06/30/22 04/25/24 History mirtazapine 30 mg tablet 15 mg PO QHS DEPRESSION 06/30/22 04/24/24 History potassium chloride 10 mEq 40 meq PO DAILY SUPPLEMENT 06/30/22 04/24/24 History tablet,extended release(part/cryst) isosorbide mononitrate 60 mg 60 mg PO DAILY #30 tabs 04/20/23 04/25/24 Rx tablet,extended release 24 hr memantine 28 mg capsule 28 mg PO DAILY #30 ea 05/16/23 Unknown Rx sprinkle,extended release 24hr lisinopril 5 mg tablet 5 mg PO DAILY 03/08/24 04/24/24 History amiodarone 200 mg tablet 200 mg PO DAILY 04/28/24 04/25/24 History aspirin 81 mg tablet,delayed 81 mg PO DAILY 04/28/24 04/25/24 History release clopidogrel 75 mg tablet 75 mg PO DAILY 04/28/24 Unknown History fluorometholone 0.1 % eye 1 drp ophthalmic (eye) Q12H 04/28/24 04/25/24 History drops,suspension metoprolol tartrate 100 mg tablet 150 mg PO Q12H 04/28/24 04/25/24 History pantoprazole 40 mg tablet,delayed 40 mg PO DAILY 04/28/24 Unknown History release Allergy/AdvReac Type Severity Reaction Status Date / Time latex Allergy Unknown unknown Verified 03/08/24 00:12 carisoprodol Allergy Other Verified 03/08/24 00:12 itraconazole Allergy Other Verified 03/08/24 00:12 COVID-19 (SARS-CoV-2) AdvReac Other Verified 03/08/24 06:12 vaccine, jeanie Family History Mother CVA (cerebral vascular accident) Sister Hypertension Surgical History History of coronary artery stent placement History of left heart catheterization (07/02/19) History of angioplasty of peripheral vessel (10/23/13) History of coronary artery stent placement (10/07/15) History of back surgery History of shoulder surgery History of hernia repair History of tonsillectomy History of prostatectomy Social History housing: correction Smoking Status: Never smoker alcohol intake: never substance use type: does not use caffeine: Yes Type: tea what type of physical activity do you participate in: none seatbelt use: always do you feel safe at home: Yes ROS ROS ED ROS Narrative Review of systems positive for bruising on the posterior elbow portion of his right upper extremity. No chest pain or shortness of breath. Denies other areas of bruising or bleeding diathesis. EXAM Physical Exam Narrative Exam Narrative: Afebrile. Vital signs noted. Nontoxic-appearing. HEENT examination is grossly unremarkable. Cardiovascular examination regular rate and rhythm. Lungs are clear to auscultation bilaterally. Abdomen is soft and nontender. Neurological examination shows him to be awake, alert, and answering questions appropriately. It is consistent with dementia. Musculoskeletal examination shows large area of bruising on his upper arm and to his posterior elbow. He appears neurovascular intact distally with palpable radial pulse. Const Vital Signs: 04/28/24 07:36 Temperature 97.5 F L Temperature Source Oral Pulse Rate 78 Respiratory Rate 16 Blood Pressure 185/65 H Blood Pressure Mean 105 Pulse Ox 97 Oxygen Delivery Method Room Air MDM MDM MDM Narrative Medical decision making narrative: Differential diagnosis includes but not limited to superficial thrombophlebitis versus contusion versus dependent edema. He could have had an elbow contusion, or even his blood pressure cuff may have been tight. I have low concern for DVT. Additionally, ultrasound of the upper extremity is unavailable at this facility on the weekend. I will obtain x-rays and a CBC to see if he has low platelets and to see what his hemoglobin may be. Additionally, he may have received heparin during his angioplasty. Initially, I reviewed his CBC and he had a drop in his hemoglobin to 9 from 5 days ago. This is approximately 2 g. I added a BMP and found to grossly unremarkable. X-ray of the elbow and 3 views interpreted by myself independently shows degenerative changes but no acute fracture. I reviewed the radiology report which confirms my independent interpretation. Patient also has normal platelet count. While I am unsure to the cause of his anemia and ecchymosis of his right arm, I did obtain a CTA of the right upper extremity which showed no acute process and some soft tissue swelling but no evidence of an acute fracture. At this point in time, I feel he can be discharged to follow-up with his primary care provider. Disposition is discharged home in stable condition. History & Record Review Discussion w/independent historian: Patient Additional record(s) reviewed:: Prior labs and Other (SNF) Radiography X-Ray: Read by ED Physician, Read by Radiologist and No Fracture Discharge Plan Triage Chief Complaint: Wound Check ED Provider: Vineet Moore Dx/Rx/DC Orders Clinical Impression: Ecchymosis, Elbow pain, right, Anemia Instructions: ED Anemia, Type Not Specified (Adult), ED Contusion, Upper Extremity, ED Pain, Acute, Uncertain Cause Prescriptions: No Action duloxetine 30 mg capsule,delayed release(DR/EC) 30 mg PO DAILY (DME) Motorized wheelchair See Rx Instructions .Route .MEDSUPPLY Qty: 1 0RF Rx Instructions: As directed memantine 28 mg capsule,sprinkle,ER 24hr 28 mg PO DAILY Qty: 30 6RF Rx Instructions: Week #4 and thereafter mirtazapine 30 mg Tablet 15 mg PO QHS furosemide [Lasix] 40 mg tablet 20 mg PO DAILY acetaminophen 500 mg Tablet 1,000 mg PO TID PRN (Reason: LOWER BACK PAIN) potassium chloride 10 mEq tablet,ER particles/crystals 40 meq PO DAILY lisinopril 5 mg tablet 5 mg PO DAILY amiodarone 200 mg tablet 200 mg PO DAILY aspirin 81 mg tablet,delayed release (DR/EC) 81 mg PO DAILY clopidogrel 75 mg tablet 75 mg PO DAILY fluorometholone 0.1 % drops,suspension 1 drp ophthalmic (eye) Q12H Rx Instructions: both eyes metoprolol tartrate 100 mg tablet 150 mg PO Q12H pantoprazole 40 mg tablet,delayed release (DR/EC) 40 mg PO DAILY atorvastatin 20 mg tablet 20 mg PO QHS Qty: 90 3RF isosorbide mononitrate 60 mg tablet extended release 24 hr 60 mg PO DAILY Qty: 30 11RF Primary Care Provider: Dennys Manley Referrals: Dennys Manley MD [Primary Care Provider] - 1-2 Days if not improving Activity Restrictions/Additional Instructions: The arterial CT of your right upper extremity did not show anything acute. There was soft tissue swelling. Your x-ray shows no evidence of fracture. Ultrasound of the upper extremity is unavailable on the weekend in the emergency department. Print Language: Arabic Disposition Disposition: Home, Self Care
[2024-04-28 07:55] LABS: Absolute Lymphocyte Count 0.75 X10^3/uL (0.83-4.51); Absolute Neutrophil Count 8.1 X10^3/uL (2.0-7.7); Basophil# 0.04 X10^3/uL; Basophil% 0.4 % (0-1); Eosinophil# 0.08 X10^3/uL; Eosinophils% 0.8 % (0-5); Hematocrit 30.2 % (40-54); Hemoglobin 9.3 g/dL (13.0-16.5); Lymphocyte # 0.75 X10^3/ul (0.83-4.51); Lymphocyte % 7.2 % (19-41); Mean Corp Hgb Conc 30.8 g/dL (32-36); Mean Corpuscular Hgb 32.1 pg (27.0-32.0); Mean Corpuscular Volume 104.1 fL (80-94); Mean Platelet Vol. 9.7 fl (6.2-12.0); Monocyte# 1.32 X10^3/uL; Monocyte% 12.7 % (0-10); NRBC Flagged by Analyzer 0.4 % (0-5); Neutrophil # 8.12 X10^3/uL (2.7-7.7); Neutrophil % 78.2 % (47-70); Platelet Count 308 K/mm3 (150-450); RBC Distribution Width CV 17.1 % (11.6-14.6); White Blood Count 10.4 K/mm3 (4.4-11.0)
--- NOTE | 2024-04-28 08:05 | CT_ITS ---
HISTORY: bruising following stent placement 04/23. TECHNIQUE: Axial CT angiography multi-detector data acquisition was obtained of the right upper extremity intravenous administration of 100 mL Isovue-370. Axial images and MIP images were reconstructed from the axial data set. Post-processing of the angiographic images was performed, with multiplanar reformation and 3D reconstruction. Individualized dose optimization techniques were used for this CT. 416 images. COMPARISON: XR same day FINDINGS: OSSEOUS STRUCTURES: Surgical anchor in the right humeral head. Moderate degenerative changes of the right shoulder and elbow. Advanced arthritis of the wrist and hand with subchondral cysts, osteophytes, joint space narrowing. No acute fracture or dislocation identified. SOFT TISSUES: Soft tissue swelling of the elbow. No rim-enhancing fluid collection. No significant subcutaneous emphysema or air in the deep fascial soft tissues. VESSELS: Contrast bolus nearly entirely venous. Mild atherosclerosis. No high-grade stenosis or occlusion of the right subclavian or axillary arteries. Patent proximal brachial artery and then nondiagnostic examination mid to distally due to artifact from streak artifacting veins, overlying material, positioning, and large [id number]. CT/CTA Upper Ext W/WO Contrast IMPRESSION: Nondiagnostic CTA with the contrast bolus in the venous phase. No evidence of acute fracture dislocation. Soft tissue swelling of the right elbow. Electronically Signed: Erika Ta MD at 10:27 EST ,
[2024-04-28 08:50] LABS: Anion Gap 5 (5-15); BUN 23 mg/dL (7-18); BUN/Creat Ratio 20.9 RATIO (10-20); Calcium,Total 9.2 mg/dL (8.5-10.1); Chloride 117 mmol/L (98-107); EST Glomerular Filtration Rate 67 mL/min (>60); Est Glom Filt Rate - Afr Amer 81 mL/min (>60); Estimated Creatinine Clearance 45.08 ml/min; Glucose 119 mg/dL (74-106); Potassium 3.5 mmol/L (3.5-5.1); Sodium Level 150 mmol/L (136-145)
[2024-04-28 09:35] VITALS: BP 132/68; PULSE 84; RESP 16; O2SAT 95
[2024-04-28 11:00] VITALS: BP 149/62; PULSE 86; RESP 16; O2SAT 96
[2024-04-28 11:15] VITALS: BP 149/62; PULSE 86; RESP 17; TEMP 36.6; O2SAT 96
[2024-04-28 13:00] VITALS: BP 170/96; PULSE 88; O2SAT 100
== END 2024-04-28 13:34 | disposition home or self-care (01) ==
PROVIDERS: Emergency Provider Emergency Medicine; PCP Internal Medicine; Visit Provider Emergency Medicine
DX: M25.521 Pain in right elbow (principal); F03.90 Unspecified dementia, unspecified severity, without behavioral disturbance, psychotic disturbance, mood disturbance, and anxiety; I48.91 Unspecified atrial fibrillation; E11.9 Type 2 diabetes mellitus without complications; D64.9 Anemia, unspecified; I10 Essential (primary) hypertension; E78.5 Hyperlipidemia, unspecified; I25.10 Atherosclerotic heart disease of native coronary artery without angina pectoris; Z79.82 Long term (current) use of aspirin; I25.2 Old myocardial infarction; Z85.46 Personal history of malignant neoplasm of prostate; Z79.899 Other long term (current) drug therapy; Z79.02 Long term (current) use of antithrombotics/antiplatelets; K21.9 Gastro-esophageal reflux disease without esophagitis; Z95.5 Presence of coronary angioplasty implant and graft; Z90.79 Acquired absence of other genital organ(s); R58 Hemorrhage, not elsewhere classified

== ENCOUNTER 2024-06-11 20:27 | Inpatient (IN) | payer MEDICARE, OTHER, SELFPAY ==
[2024-06-11 20:28] VITALS: BP 155/78; PULSE 73; RESP 17; TEMP 37; O2SAT 98; BMI 23.5
--- NOTE | 2024-06-11 21:48 | CT_ITS ---
PROCEDURE: ABDOMEN/PELVIS W IV CONT ONLY REASON FOR EXAM: Rectal bleeding; history of prolapse. TECHNIQUE: Abdomen and pelvis CT with intravenous contrast. IV CONTRAST: 96 mL of Isovue 370. COMPARISON: 03/23/2020 CT. FINDINGS: Lung bases: [id number] right and small to moderate left pleural effusions. Partially visualized ICD leads. Liver: Subcentimeter hypodense lesions that are too small to characterize but statistically likely benign. Gallbladder: Unremarkable. Spleen: Unremarkable. Pancreas: Unremarkable. Adrenals: Unremarkable. Kidneys: Babw-[id number]-ccrk-right renal cortical atrophy. Bilateral kidney cysts. Additional bilateral subcentimeter hypodense lesions that are too small to characterize but likely benign. No hydroureteronephrosis. Bladder: Concentric urinary bladder wall thickening which may be due to detrusor muscle hypertrophy or cystitis. Reproductive Organs: The prostate is not visualized. Bowel: Similar linear hyperdensities in the rectal region which may represent prior intervention. Asymmetric rectal wall thickening. Colonic diverticulosis without surrounding inflammatory changes. Appendix: Normal. Lymph nodes: No suspicious lymph node enlargement. Vasculature: [id number] atherosclerosis. Normal caliber abdominal aorta. Peritoneum / Retroperitoneum: No ascites. No free air. Bones: Sacral fixation. Severe degenerative changes of the visualized spine. Prior ventral hernia repair. CT/Abdomen/Pelvis W IV Cont ONLY IMPRESSION: Asymmetric rectal wall thickening which may represent hemorrhoids but a mass ca n not be excluded. Colonic diverticulosis.. Concentric urinary bladder wall thickening which may be due to detrusor muscle hypertrophy or cystitis. Bilateral pleural effusions. One or more dose reduction techniques were used (e.g., Automated exposure contr ol, adjustment of the mA and/or kV according to patient size, use of iterative reconstruction technique). Reading Location: [place] [id number]
--- NOTE | 2024-06-11 21:48 | EKG12_ITS ---
Test Reason : DYSRHYTHMIA Blood Pressure : */* mmHG Vent. Rate : 60 BPM Atrial Rate : 60 BPM P-R Int : 240 ms QRS Dur : 146 ms QT Int : 516 ms P-R-T Axes : * 68 -10 degrees QTcB Int : 516 ms Atrial-paced rhythm with prolonged AV conduction Right bundle branch block Abnormal ECG When compared with ECG of 08-Mar-2024 01:10, Electronic atrial pacemaker has replaced Sinus rhythm Confirmed by Cody Forbes ([id number]), science editor ANJANA ASIF ([id number]) on 06/13/2024 9:25:36 AM Referred By: Confirmed By: Cody Forbes
[2024-06-11 22:02] LABS: Absolute Lymphocyte Count 0.62 X10^3/uL (0.83-4.51); Absolute Neutrophil Count 5.9 X10^3/uL (2.0-7.7); Basophil# 0.05 X10^3/uL; Basophil% 0.6 % (0-1); Eosinophil# 0.25 X10^3/uL; Eosinophils% 3.2 % (0-5); Hematocrit 30.3 % (40-54); Hemoglobin 9.2 g/dL (13.0-16.5); Lymphocyte # 0.62 X10^3/ul (0.83-4.51); Lymphocyte % 7.9 % (19-41); Mean Corp Hgb Conc 30.4 g/dL (32-36); Mean Corpuscular Hgb 31.9 pg (27.0-32.0); Mean Corpuscular Volume 105.2 fL (80-94); Mean Platelet Vol. 10.1 fl (6.2-12.0); Monocyte# 1.01 X10^3/uL; Monocyte% 12.9 % (0-10); NRBC Flagged by Analyzer 0 % (0-5); Neutrophil # 5.85 X10^3/uL (2.7-7.7); POSITIVE MORPHOLOGY YES; Platelet Count 280 K/mm3 (150-450); RBC Distribution Width CV 18.1 % (11.6-14.6); RBC Distribution Width SD 69.2 fl (35.1-43.9); Red Blood Count 2.88 M/mm3 (4.6-6.2); White Blood Count 7.8 K/mm3 (4.4-11.0)
[2024-06-11] MEDS: 0.9% Normal Saline (1000mL) 1,000 ML 999 ML IV (22:02)
[2024-06-11 22:13] LABS: Prothrombin Time (Protime)PT. 13.9 SECONDS (11.7-14.9)
[2024-06-11 22:14] LABS: Partial Thromboplast Time 28.8 Seconds (24.1-36.2)
--- NOTE | 2024-06-11 22:18 | EX.ED.DYSGE1 ---
HPI History of Present Illness Chief Complaint: GI Bleed Narrative Narrative: Chief complaint and HPI: GI bleed. 88-year-old male with past medical history of dementia, CAD, PVD on Plavix due to bilateral lower extremity stent, DM2, atrial fibrillation not on anticoagulation presents from [facility] for evaluation of bright red blood per rectum. Due to patient's dementia, patient is a poor historian. History taken by nursing staff at care facility. Per report, patient has a history of rectal prolapse. They state today they found the patient with rectal bleeding with multiple blood clots in the bed. Patient as well as facility denies any abdominal pain, nausea, vomiting, diarrhea. On chart review, patient has been evaluated for GI bleed in the past by Dr. Smith. In June 2022 he had an EGD that was negative except for small hiatal hernia. He had a colonoscopy that showed a medium sized bleeding angiodysplastic lesion in the cecum which was treated with heater probe. Was also found to have diverticulosis. Review of systems: See HPI Medications: As listed on the chart Allergies: As listed on the chart PFSH: Per chart Vital signs: As listed on the chart. Reviewed. Physical exam: Gen: A&O x1-patient's reported baseline, NAD Head: Normocephalic, atraumatic Eyes: No sclera icterus, conjunctiva clear ENT: Dry mucous membranes Neck: Trachea midline, No JVD CV: RRR, no murmurs, no peripheral edema Resp: Lungs CTA BL, no w/r/c GI: Abd soft, non-distended, non-tender, no r/r/g Rectal: Dried blood on the anus. No external evidence of hemorrhoids or fissures. No rectal prolapse. Normal tone and sensation. No masses, fluctuance, or tenderness. No pain out of proportion. Maroon-colored stool Musc: Full ROM, no deformity Skin: Warm, dry, pale Neuro: Alert, grossly intact, sensation intact [facility] Medical History Large bowel bleed Non-smoker Atrial fibrillation Diabetes Hallucinations Dementia Gait disorder Cancer Sleep apnea Chest pain Hypertension Carpal tunnel syndrome on both sides History of non-ST elevation myocardial infarction (NSTEMI) (07/02/19) UTI (urinary tract infection) Atrial fibrillation with RVR (05/28/20) Acute diarrheal illness Acute kidney injury Pneumonia due to COVID-19 virus (03/23/20) Septic shock PAD (peripheral artery disease) Delayed wound healing Debility Nonhealing ulcer of left lower extremity with fat layer exposed Non-healing ulcer of right foot with fat layer exposed Neuropathy Rectal prolapse Right bundle branch block (RBBB) Open wound of finger of left hand Chronic pain of right heel Ulcer of right lower extremity with fat layer exposed Ulcer of right heel Peripheral arterial occlusive disease Urinary incontinence Essential (primary) hypertension Spondylolisthesis Lumbar stenosis Peripheral neuropathy Retinopathy due to secondary diabetes Atherosclerotic heart disease of [place] coronary artery without angina pectoris DDD (degenerative disc disease) GERD (gastroesophageal reflux disease) Prostate cancer Obstructive sleep apnea Hyperlipidemia Home Medications ?Medication ?Instructions ?Recorded ?Last Taken ?Type duloxetine 30 mg capsule,delayed 30 mg PO DAILY DEPRESSION 03/06/19 04/25/24 History release atorvastatin 20 mg tablet 20 mg PO QHS CHOLESTEROL #90 tabs 06/10/19 04/24/24 Rx Motorized wheelchair #1 ea 06/29/22 Unknown Rx acetaminophen 500 mg tablet 1,000 mg PO TID LOWER BACK PAIN 06/30/22 04/23/24 History furosemide 40 mg tablet (Lasix) 20 mg PO DAILY FLUID 06/30/22 04/25/24 History mirtazapine 30 mg tablet 15 mg PO QHS DEPRESSION 06/30/22 04/24/24 History potassium chloride 10 mEq 40 meq PO DAILY SUPPLEMENT 06/30/22 04/24/24 History tablet,extended release(part/cryst) isosorbide mononitrate 60 mg 60 mg PO DAILY #30 tabs 04/20/23 04/25/24 Rx tablet,extended release 24 hr memantine 28 mg capsule 28 mg PO DAILY #30 ea 05/16/23 Unknown Rx sprinkle,extended release 24hr lisinopril 5 mg tablet 5 mg PO DAILY 03/08/24 04/24/24 History amiodarone 200 mg tablet 200 mg PO DAILY 04/28/24 04/25/24 History aspirin 81 mg tablet,delayed 81 mg PO DAILY 04/28/24 04/25/24 History release clopidogrel 75 mg tablet 75 mg PO DAILY 04/28/24 Unknown History fluorometholone 0.1 % eye 1 drp ophthalmic (eye) Q12H 04/28/24 04/25/24 History drops,suspension metoprolol tartrate 100 mg tablet 150 mg PO Q12H 04/28/24 04/25/24 History pantoprazole 40 mg tablet,delayed 40 mg PO DAILY 04/28/24 Unknown History release Allergy/AdvReac Type Severity Reaction Status Date / Time latex Allergy Unknown unknown Verified 06/11/24 20:29 carisoprodol Allergy Other Verified 06/11/24 20:29 itraconazole Allergy Other Verified 06/11/24 20:29 COVID-19 (SARS-CoV-2) AdvReac Other Verified 06/11/24 20:29 vaccine, jeanie Family History Mother CVA (cerebral vascular accident) Sister Hypertension Surgical History History of coronary artery stent placement History of left heart catheterization (07/02/19) History of angioplasty of peripheral vessel (10/23/13) History of coronary artery stent placement (10/07/15) History of back surgery History of shoulder surgery History of hernia repair History of tonsillectomy History of prostatectomy Social History housing: long-term Smoking Status: Never smoker alcohol intake: never substance use type: does not use caffeine: Yes Type: tea what type of physical activity do you participate in: none seatbelt use: always do you feel safe at home: Yes EXAM Physical Exam Const Vital Signs: 06/11/24 20:28 06/11/24 22:28 06/12/24 00:03 Temperature 98.6 F Temperature Source Oral Pulse Rate 73 61 68 Respiratory Rate 17 18 18 Blood Pressure 155/78 H 158/80 H 178/71 H Blood Pressure Mean 103 106 106 Pulse Ox 98 97 94 Oxygen Delivery Method Room Air Room Air MDM MDM MDM Narrative Medical decision making narrative: 88-year-old male with past medical history of dementia, CAD, PVD on Plavix due to bilateral lower extremity stent, DM2, atrial fibrillation not on anticoagulation presents from [facility] for evaluation of bright red blood per rectum. Differential diagnosis includes but is not limited to lower GI bleed, anemia, electrolyte abnormality, diverticulitis, diverticulosis. NS bolus ordered. GI bleed workup ordered. EKG reviewed see below. CBC without leukocytosis. Patient has baseline anemia. Platelets unremarkable. Coagulation panel unremarkable. CMP relatively unremarkable without JUAN PABLO, significant electrolyte abnormality, transaminitis. Lipase elevated at 100. Patient not having any abdominal pain. UA positive for UTI. Urine culture sent. Rocephin ordered. CT abdomen pelvis shows asymmetrical rectal wall thickening which may represent hemorrhoids but a mass cannot be excluded. Colonic diverticulosis. Concentric urinary bladder wall thickening which may be due to hypertrophy or cystitis. Patient has UTI and physical exam suspect cystitis. Bilateral pleural effusions. Patient will warrant admission to the hospital for GI bleed. Suspect lower GI bleed. Gastroenterology is not on-call today in her hospital however I did try to contact Dr. Luis. Was unable to get a hold of him. Patient admitted to the hospital under Dr. Maurer. EKG: Interpreted by me/EM physician: EKG state atrial placed rhythm with known right bundle branch block. No acute ischemic changes. Heart rate 60. Impression: 1. GI bleed, suspect lower 2. UTI 3. Chronic anemia Lab Data Labs: Laboratory Results - last 24 hr 06/11/24 06/11/24 06/11/24 20:45 22:00 22:10 WBC 7.8 RBC 2.88 L Hgb 9.2 L Hct 30.3 L MCV 105.2 H MCH 31.9 MCHC 30.4 L RDW Std Deviation 69.2 H RDW Coeff of Ayesha 18.1 H Plt Count 280 MPV 10.1 Immature Gran % (Auto) 0.400 Neut % (Auto) 75.0 H Lymph % (Auto) 7.9 L [place] % (Auto) 12.9 H Eos % (Auto) 3.2 Baso % (Auto) 0.6 Absolute Neuts (auto) 5.9 Absolute Lymphs (auto) 0.62 L Nucleated RBC % 0 Differential Comment SCANNED Anisocytosis 1+ PT 13.9 INR 1.0 APTT 28.8 Sodium 144 Potassium 4.0 Chloride Direct 108 Carbon Dioxide 25.0 Anion Gap 11 BUN 27 H Creatinine 1.2 Estim Creat Clear Calc 41.73 Est GFR (MDRD) Non-Af 57 L BUN/Creatinine Ratio 22.6 H Glucose 93 Lactic Acid 1.6 Calcium 9.0 Total Bilirubin 0.18 AST 22 ALT 9 Alkaline Phosphatase 86 Troponin T High Sens 40 H Delta Troponin T Troponin T Hi Sens 2 Hr Total Protein 6.2 Albumin 2.9 L Globulin 3.3 Albumin/Globulin Ratio 0.9 Lipase 100 H Urine Color Yellow Urine Clarity Sl. Cloudy Urine pH 7.0 Ur Specific [place] 1.010 Urine Protein 30 H Urine Glucose (UA) Normal Urine Ketones Negative Urine Occult Blood 150 H Urine Nitrite Positive H Urine Bilirubin Negative Urine Urobilinogen Normal Ur Leukocyte Esterase 500 H Urine RBC 0-5 SEEN Urine WBC >100 SEEN Ur Squamous Epith Cells 0 SEEN Urine Bacteria 3+ Urine Mucus 0 SEEN Blood Type A POSITIVE Antibody Screen NEGATIVE 06/11/24 23:50 WBC RBC Hgb Hct MCV MCH MCHC RDW Std Deviation RDW Coeff of Ayesha Plt Count MPV Immature Gran % (Auto) Neut % (Auto) Lymph % (Auto) [place] % (Auto) Eos % (Auto) Baso % (Auto) Absolute Neuts (auto) Absolute Lymphs (auto) Nucleated RBC % Differential Comment Anisocytosis PT INR APTT Sodium Potassium Chloride Direct Carbon Dioxide Anion Gap BUN Creatinine Estim Creat Clear Calc Est GFR (MDRD) Non-Af BUN/Creatinine Ratio Glucose Lactic Acid Calcium Total Bilirubin AST ALT Alkaline Phosphatase Troponin T High Sens Delta Troponin T 5 Troponin T Hi Sens 2 Hr 35 H Total Protein Albumin Globulin Albumin/Globulin Ratio Lipase Urine Color Urine Clarity Urine pH Ur Specific [place] Urine Protein Urine Glucose (UA) Urine Ketones Urine Occult Blood Urine Nitrite Urine Bilirubin Urine Urobilinogen Ur Leukocyte Esterase Urine RBC Urine WBC Ur Squamous Epith Cells Urine Bacteria Urine Mucus Blood Type Antibody Screen Radiography Diagnostic Testing: Clinical Impression(s) from Imaging Studies Abdomen/Pelvis CT 06/11/24 21:48 IMPRESSION: Asymmetric rectal wall thickening which may represent hemorrhoids but a mass can not be excluded. Colonic diverticulosis.. Concentric urinary bladder wall thickening which may be due to detrusor muscle hypertrophy or cystitis. Bilateral pleural effusions. One or more dose reduction techniques were used (e.g., Automated exposure control, adjustment of the mA and/or kV according to patient size, use of iterative reconstruction technique). Reading Location: [place] [id number] Discharge Plan Triage Chief Complaint: GI Bleed ED Provider: Rick Abbott Dx/Rx/DC Orders Prescriptions: No Action duloxetine 30 mg capsule,delayed release(DR/EC) 30 mg PO DAILY (DME) Motorized wheelchair See Rx Instructions .Route .MEDSUPPLY Qty: 1 0RF Rx Instructions: As directed memantine 28 mg capsule,sprinkle,ER 24hr 28 mg PO DAILY Qty: 30 6RF Rx Instructions: Week #4 and thereafter mirtazapine 30 mg Tablet 15 mg PO QHS furosemide [Lasix] 40 mg tablet 20 mg PO DAILY acetaminophen 500 mg Tablet 1,000 mg PO TID potassium chloride 10 mEq tablet,ER particles/crystals 40 meq PO DAILY lisinopril 5 mg tablet 5 mg PO DAILY amiodarone 200 mg tablet 200 mg PO DAILY aspirin 81 mg tablet,delayed release (DR/EC) 81 mg PO DAILY clopidogrel 75 mg tablet 75 mg PO DAILY fluorometholone 0.1 % drops,suspension 1 drp ophthalmic (eye) Q12H Rx Instructions: both eyes metoprolol tartrate 100 mg tablet 150 mg PO Q12H pantoprazole 40 mg tablet,delayed release (DR/EC) 40 mg PO DAILY atorvastatin 20 mg tablet 20 mg PO QHS Qty: 90 3RF isosorbide mononitrate 60 mg tablet extended release 24 hr 60 mg PO DAILY Qty: 30 11RF Primary Care Provider: Dennys Manley Referrals: Dennys Manley MD [Primary Care Provider] - Print Language: Kittitian
[2024-06-11 22:20] LABS: Mucous, Urine 0 SEEN /hpf (<or=2+); Squamous Epithelial Cells - UA 0 SEEN /hpf (0-5)
[2024-06-11 22:28] VITALS: BP 158/80; PULSE 61; RESP 18; O2SAT 97
[2024-06-11 22:36] LABS: ALB/GLOB Ratio 0.9 RATIO (0.9-2.4); AST(SGOT) 22 U/L (<=37); Alanine Aminotransfer ALT/SGPT 9 U/L (<=46); Albumin, Serum 2.9 g/dL (3.4-4.8); Alkaline Phosphatase 86 U/L (40-129); Anion Gap 11 (5-15); BUN 27 mg/dL (4-19); BUN/Creat Ratio 22.6 RATIO (10-20); Chloride 108 mmol/L (96-108); Creatinine, Serum 1.2 mg/dL (0.8-1.3); EST Glomerular Filtration Rate 57 (>60); Estimated Creatinine Clearance 41.73 ml/min; Globulin 3.3 g/dL (2.2-4.2); Glucose 93 mg/dL (70-99); Lipase 100 U/L (13-75); Protein, Total 6.2 g/dL (5.9-8.4); Sodium Level 144 mmol/L (133-145); Total Bilirubin 0.18 mg/dL (0.00-1.30); Troponin T High Sensitivity 40 ng/L (<=22)
[2024-06-11 22:40] LABS: Differential Indicated SCAN CRITERIA MET
[2024-06-11 22:43] LABS: Color, Urine Yellow (Yellow); Glucose, Dipstick Normal (Normal); Ketone-Dipstick Negative (Negative); Leukocyte Esterase-Dipstick 500 /ul (Negative); Nitrite-Dipstick Positive (Negative); Occult Blood-Urine 150 /ul (Negative); Protein-Dipstick 30 mg/dl (Negative); Urine Bilirubin Dipstick Negative (Negative); Urine Clarity Sl. Cloudy (Clear); Urine Urobilinogen Normal (Normal)
[2024-06-11 22:49] LABS: Bacteria 3+ /hpf (None Seen); Red Blood Cells-Urine 0-5 SEEN /hpf (0-5); White Blood Cells >100 SEEN /hpf (0-5)
[2024-06-11 22:51] LABS: Anisocytosis 1+; Differential Comment SCANNED
[2024-06-11 23:40] LABS: Lactic Acid 1.6 mmol/L (0.0-2.0)
[2024-06-12] VITALS (12 sets, daily range): BP systolic 140–190; BP diastolic 58–95; PULSE 59–68; RESP 16–20; TEMP 35.9–36.9; O2SAT 92–100; BMI 22.1
[2024-06-12] MEDS: Ceftriaxone 1 GM/50 ML BAG IV ×2 (00:24→21:57)
[2024-06-12 00:29] LABS: TROPONIN VARIANCE 2 HR 5; Troponin T High Sens 2 HR 35 ng/L (<=22)
--- NOTE | 2024-06-12 01:12 | HP.PCM.HOS_ITS ---
[facility] - General General Date of Admission: 06/12/24 Date of Service: 06/12/24 Chief Complaint: LGIB with BRBPR. HPI Narrative FEI CHANDLER, is a 88 M with a past medical history of essential hypertension; on lisinopril, metoprolol and furosemide, hyperlipidemia; on atorvastatin, CAD; s/p NSTEMI with multiple subsequent stents on BASA, clopidogrel and ISMO, history of atrial fibrillation (2020); on amiodarone but not on anticoagulation, history of RBBB, severe PAD; s/p stent (2013) with history of chronic ulcers on both feet, history of LGIB (06/2022); with colonoscopy done here by Dr. 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, history of rectal prolapse, GERD; with history of EGD that only revealed a small hiatal hernia (06/2022), ZEYNEP, SCOTT, peripheral neuropathy, history of mild cognitive impairment with hallucinations; on memantine, history of depression; on duloxetine and mirtazapine, history of prostate cancer; s/p prostatectomy, history of UTI, history of septic shock, history of COVID-19 (2019), history of hernia repair and OA; with stenosis of lumbar spine plus DDD; s/p back surgery with chronic back pain along with chronic debility and gait disorder who currently resides at [facility] presents to [facility] ER complaining of LGIB with BRBPR. Mr. Chandler is not a reliable historian at this time so information was taken from chart, medical staff and computer. According to the records and what limited information that is available from the patient his symptoms began yesterday evening when the staff at his facility noted multiple blood clots in his bed. There was no report of fevers, chills, nausea, vomiting, abdominal pain, chest pain or SOB. In the ER he was diagnosed with a LGIB with BRBPR suspected to be due to Adverse Drug Reaction to dual-antiplatelet therapy with CT evidence of asymmetric rectal wall thickening which may represent hemorrhoids, but a mass cannot be excluded with colonic diverticulosis and concentric urinary bladder wall thickening due to suspected Acute Cystitis along with incidentally noted bilateral pleural effusions with corresponding UA that confirmed Acute Cystitis; without hematuria in addition to lateral Right ankle ulcer with skin breakdown of multiple toes to the fat layer with chronically ischemic appearance and he was then admitted to the PCU for ongoing care for a stay that is expected to extend beyond 2 midnights. PENDING SALE TO [facility] Medical History Large bowel bleed Non-smoker Atrial fibrillation Diabetes Hallucinations Dementia Gait disorder Cancer Sleep apnea Chest pain Hypertension Carpal tunnel syndrome on both sides History of non-ST elevation myocardial infarction (NSTEMI) (07/02/19) UTI (urinary tract infection) Atrial fibrillation with RVR (05/28/20) Acute diarrheal illness Acute kidney injury Pneumonia due to COVID-19 virus (03/23/20) Septic shock PAD (peripheral artery disease) Delayed wound healing Debility Nonhealing ulcer of left lower extremity with fat layer exposed Non-healing ulcer of right foot with fat layer exposed Neuropathy Rectal prolapse Right bundle branch block (RBBB) Open wound of finger of left hand Chronic pain of right heel Ulcer of right lower extremity with fat layer exposed Ulcer of right heel Peripheral arterial occlusive disease Urinary incontinence Essential (primary) hypertension Spondylolisthesis Lumbar stenosis Peripheral neuropathy 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 DDD (degenerative disc disease) GERD (gastroesophageal reflux disease) Prostate cancer Obstructive sleep apnea Hyperlipidemia Home Medications ?Medication ?Instructions ?Recorded ?Last Taken ?Type duloxetine 30 mg capsule,delayed 30 mg PO DAILY DEPRKURT DOMINGO 03/06/19 04/25/24 History release atorvastatin 20 mg tablet 20 mg PO QHS CHOLESTEROL #90 tabs 06/10/19 04/24/24 Rx Motorized wheelchair #1 ea 06/29/22 Unknown Rx acetaminophen 500 mg tablet 1,000 mg PO TID LOWER BACK PAIN 06/30/22 04/23/24 History furosemide 40 mg tablet (Lasix) 20 mg PO DAILY FLUID 0 06/30/22 04/25/24 History mirtazapine 30 mg tablet 15 mg PO QHS DEPRESSION 06/1504/24/24 History potassium chloride 10 mEq 40 meq PO DAILY SUPPLEMENT 0 06/30/22 04/24/24 History tablet,extended release(part/cryst) isosorbide mononitrate 60 mg 60 mg PO DAILY #30 tabs 0 04/20/23 04/25/24 Rx tablet,extended release 24 hr memantine 28 mg capsule 28 mg PO DAILY #30 ea Unknown Rx sprinkle,extended release 24hr lisinopril 5 mg tablet 5 mg PO DAILY 03/08/2404/24 History amiodarone 200 mg tablet 200 mg PO DAILY 04/28/2401/09 History aspirin 81 mg tablet,delayed 81 mg PO DAILY 04/28/24 0 04/25/24 History release clopidogrel 75 mg tablet 75 mg PO DAILY 04/28/24 Unkn own History fluorometholone 0.1 % eye 1 drp ophthalmic (eye) Q12H 04/28/24 04/25/24 History drops,suspension metoprolol tartrate 100 mg tablet 150 mg PO Q12H 04/2804/25/24 History pantoprazole 40 mg tablet,delayed 40 mg PO DAILY 04/28 Unknown History release Allergy/AdvReac Type Severity Reaction Status Date / Time latex Allergy Unknown unknown Verified 06/11/24 20:29 carisoprodol Allergy Other Verified 06/11/24 20:29 itraconazole Allergy Other Verified 06/11/24 20:29 COVID-19 (SARS-CoV-2) AdvReac Other Verified 06/11/24 20:29 vaccine, jeanie Family History Mother CVA (cerebral vascular accident) Sister Hypertension Surgical History History of coronary artery stent placement History of left heart catheterization (07/02/19) History of angioplasty of peripheral vessel (10/23/13) History of coronary artery stent placement (10/07/15) History of back surgery History of shoulder surgery History of hernia repair History of tonsillectomy History of prostatectomy Social History housing: [facility] Smoking Status: Never smoker alcohol intake: never substance use type: does not use caffeine: Yes Type: tea what type of physical activity do you participate in: none seatbelt use: always do you feel safe at home: Yes ROS ROS Narrative Full ROS was not possible due to patient's dementia. Vital Signs Vital Signs Vital Signs: 06/11/24 20:28 06/11/24 22:28 06/12/24 00:03 Temperature 98.6 F Temperature Source Oral Pulse Rate 73 61 68 Respiratory Rate 17 18 18 Blood Pressure 155/78 H 158/80 H 178/71 H Blood Pressure Mean 103 106 106 Pulse Ox 98 97 94 Oxygen Delivery Method Room Air Room Air Weight Weight: 159 lb 6.307 oz Body Mass Index (BMI) 23.5 Physical Exam Const alert, no apparent distress and average body habitus General Appearance: cooperative Orientation / Consciousness: confused HEENT normocephalic, head/scalp atraumatic and hearing grossly normal bilaterally HEENT Narrative: Mucous membranes dry. Eyes PERRL, EOMs intact bilaterally and conjunctivae normal Neck no lymphadenopathy, supple and no JVD Resp normal respiratory effort, no retractions, no use of accessory muscles and clear to auscultation bilaterally Cardio regular rate and regular rhythm GI normal to inspection, nondistended, normoactive bowel sounds, soft to palpation, non-tender and non-distended Extremity Extremity Narrative: Patient has Ulcer ~2 cm over lateral Right ankle with surrounding erythema, edema and exquisite TTP made worse with movement along with swelling in both feet and multiple toes with skin breakdown to the fat layer that appear chronically ischemic. Skin Skin Narrative: Patient has Ulcer ~2 cm over lateral Right ankle with surrounding erythema, edema and exquisite TTP made worse with movement along with swelling in both feet and multiple toes with skin breakdown to the fat layer that appear chronically ischemic. Neuro CN's II-XII intact bilaterally, moves all extremities and no focal motor deficits Sensorium / Orientation: awake, alert and oriented to person Speech: speech normal Psych affect normal Results Medical Records Data Attestation: I reviewed the patient's medical records Lab / Micro Data Attestation: I reviewed the patient's lab results. 06/11/24 20:45 06/11/24 20:45 Labs: Laboratory Results - last 24 hr 06/11/24 20:45: WBC 7.8, RBC 2.88 L, Hgb 9.2 L, Hct 30.3 L, MCV 105.2 H, MCH 31.9, MCHC 30.4 L, RDW Std Deviation 69.2 H, RDW Coeff of Ayesha 18.1 H, Plt Count 280, MPV 10.1, Immature Gran % (Auto) 0.400, Neut % (Auto) 75.0 H, Lymph % (Auto) 7.9 L, [place] % (Auto) 12.9 H, Eos % (Auto) 3.2, Baso % (Auto) 0.6, Absolute Neuts (auto) 5.9, Absolute Lymphs (auto) 0.62 L, Nucleated RBC % 0, Differential Comment SCANNED, Anisocytosis 1+, PT 13.9, INR 1.0, APTT 28.8, Sodium 144, Potassium 4.0, Chloride Direct 108, Carbon Dioxide 25.0, Anion Gap 11, BUN 27 H, Creatinine 1.2, Estim Creat Clear Calc 41.73, Est GFR (MDRD) Non- Af 57 L, BUN/Creatinine Ratio 22.6 H, Glucose 93, Calcium 9.0, Total Bilirubin 0.18, AST 22, ALT 9, Alkaline Phosphatase 86, Troponin T High Sens 40 H, Total Protein 6.2, Albumin 2.9 L, Globulin 3.3, Albumin/Globulin Ratio 0.9, Lipase 100 H, Blood Type A POSITIVE, Antibody Screen NEGATIVE 06/11/24 22:00: Lactic Acid 1.6 06/11/24 22:10: Urine Color Yellow, Urine Clarity Sl. Cloudy, Urine pH 7.0, Ur Specific [place] 1.010, Urine Protein 30 H, Urine Glucose (UA) Normal, Urine Ketones Negative, Urine Occult Blood 150 H, Urine Nitrite Positive H, Urine Bilirubin Negative, Urine Urobilinogen Normal, Ur Leukocyte Esterase 500 H, Urine RBC 0-5 SEEN, Urine WBC >100 SEEN, Ur Squamous Epith Cells 0 SEEN, Urine Bacteria 3+, Urine Mucus 0 SEEN 06/11/24 23:50: Delta Troponin T 5, Troponin T Hi Sens 2 Hr 35 H Micro: Microbiology 06/11/24 21:30 Stool Stool Occult Blood (MERRICK) - Final Occult Blood Positive Imaging Radiology Impression Abdomen/Pelvis CT 06/11/24 21:48 IMPRESSION: Asymmetric rectal wall thickening which may represent hemorrhoids but a mass can not be excluded. Colonic diverticulosis.. Concentric urinary bladder wall thickening which may be due to detrusor muscle hypertrophy or cystitis. Bilateral pleural effusions. One or more dose reduction techniques were used (e.g., Automated exposure control, adjustment of the mA and/or kV according to patient size, use of iterative reconstruction technique). Reading Location: [id number] Assessment & Plan Assessment/Plan (1) LGI bleed: (2) BRBPR (bright red blood per rectum): (3) Adverse drug reaction: QUALIFIERS: Encounter type: initial encounter Qualified Code(s): T50.905A - Adverse effect of unspecified drugs, medicaments and biological substances, initial encounter (4) Acute cystitis without hematuria: (5) Peripheral arterial occlusive disease: (6) Foot ulcer, right: QUALIFIERS: Non-pressure ulcer stage: with fat layer exposed Q ualified Code(s): L97.512 - Non-pressure chronic ulcer of other part of right foot with fat layer exposed (7) Dementia: QUALIFIERS: Dementia behavioral or psychological symptom: without behavioral, psychotic, or mood disturbance or anxiety Dementia severity: u nspecified severity Dementia type: unspecified type Qualified Code(s): F03.90 - Unspecified dementia, unspecified severity, without behavioral disturbance, psychotic disturbance, mood disturbance, and anxiety PLAN: Plan 1. LGIB with BRBPR; recurrent with history of LGIB (06/2022); with colonoscopy done here by Dr. Smith of gastroenterology that revealed medium-sized angiodysplastic lesion in the cecum and CT evidence of asymmetric rectal wall thickening which may represent hemorrhoids, but a mass cannot be excluded with colonic diverticulosis - 2. Adverse Drug Reaction to dual-antiplatelet therapy used to treat likely triggering #1 CAD; s/p NSTEMI with multiple subsequent stents on BASA, clopidogrel and ISMO plus PVD; with LE stents - 3. UA positive for Acute Cystitis; without hematuria with CT evidence of c oncentric urinary bladder wall thickening complicating #1 & #2 - 4. History of severe PAD; s/p stent (2013) with history of chronic ulcers on both feet and lateral Right ankle with multiple toes appearing chronically ischemic with severe TTP of the Right foot compounding #1 - #3 - Start IV vancomycin plus check CT scan of the lower extremities with IV contrast to confirm suspicion of cellulitis and ischemia. Check HgbA1c. We will consult the Wound RN to see this patient on-rounds in the AM for further recommendations with help appreciated in advance. Finally, we will consult podiatry to see this patient on-rounds in the AM for further recommendations with help appreciated in advance. 5. History of mild cognitive impairment with hallucinations that has now progressed to Dementia; on memantine adding to the medical complexity of #1 - #4 - Continue supportive care as outlined above and below and monitor for improvement. Check TSH. 6. Essential Hypertension; on lisinopril, metoprolol and furosemide 7. Hyperlipidemia; on atorvastatin - Restart statin when patient cleared for oral intake. 8. History of atrial fibrillation (2020); on amiodarone but not on anticoagulation - Stable with patient currently in NSR. 9. History of RBBB - Noted. 10. History of rectal prolapse - Stable with no active prolapse noted at this time. 11. GERD; with history of EGD that only revealed a small hiatal hernia (06/2022) - Noted. 12. ZEYNEP - Resume nocturnal CPAP if patient can tolerate. 13. SCOTT - Stable with hemoglobin of 9.2 g/dL and MCV of 105.2 fL present on admission. Check B12 and Folate levels with macrocytosis. 14. Peripheral neuropathy - Stable with patient currently not on treatment. 15. History of depression; on duloxetine and mirtazapine - Resume current therapy when patient is cleared for oral intake. 16. History of prostate cancer; s/p prostatectomy - Noted. 17. History of UTI - Noted with recurrence this admission outlined in #3. 18. History of septic shock - Noted. 19. History of COVID-19 (2019) - Noted. 20. History of hernia repair - Noted. 21. OA; with stenosis of lumbar spine plus DDD; s/p back surgery with chronic back pain along with chronic debility and gait disorder who currently resides at [facility] - Noted. 22. DVT/GI prophylaxis - SCD's only in light of #1. Pantoprazole 40 mg IV daily. Total time: Approximately (but not less than) 75 minutes. Charges/Coding Visit Charges Inpatient E&M: 79520 Init Hosp L3
[2024-06-12] MEDS: 0.9% Normal Saline (1000mL) 1,000 ML 70 ML IV (02:25)
[2024-06-12 02:38] LABS: Magnesium 1.9 mg/dL (1.5-2.2)
[2024-06-12 02:43] LABS: Folates, Serum 8.68 ng/mL (4.60-34.80); Thyroid Stim Hormone (TSH) 0.847 uIU/mL (0.300-4.200)
[2024-06-12] MEDS: hydrALAZINE 20 MG/ML Vial 5 MG IV ×2 (02:43→17:33)
--- NOTE | 2024-06-12 04:26 | CT_ITS ---
PROCEDURE: EXTREMITY LOWER WITH CONTRAST REASON FOR EXAM: Peripheral arterial disease, multiple ischemic toes. TECHNIQUE: CT of the right foot was performed after IV contrast administration. Multiplanar reformats were obtained. COMPARISON: None. FINDINGS: Limited examination. Diffuse soft tissue swelling and edema the stressing throughout the right foot. No subcutaneous gas collections identified. Bones are osteopenic and appears diffusely heterogeneous. Etiology is to be determined. There is no evidence of acute fracture or dislocation. The ankle mortise is intact. Atheromatous calcification present within the arteries of the right foot including the posterior tibial and dorsalis pedis arteries. There is however reconstitution of flow distally. CT/Extremity Lower WITH Contrast IMPRESSION: Limited examination. Diffuse subcutaneous and intramuscular edema noted within the right foot. Marked heterogeneity within the bone. This examination is not diagnostic for o steomyelitis. If this is of clinical concern, consider triple phase bone scan versus MRI. No gross fracture is seen. Atherosclerotic disease. One or more dose reduction techniques were used (e.g., Automated exposure contr ol, adjustment of the mA and/or kV according to patient size, use of iterative reconstruction technique). Reading Location: [id number]
[2024-06-12] MEDS: Vancomycin HCl 1,750 MG in 0.9% Normal Saline (500mL Bag) 500 ML 250 MG IV (05:16)
--- NOTE | 2024-06-12 05:37 | CPS ---
Patient states that he has not worn a CPAP at home for a couple of years. He does not have a CPAP machine in his room nor does he want to use one while he is here.
--- NOTE | 2024-06-12 05:43 | PCM.RX.CS ---
Consult Antibiotic Management Pharmacy has been consulted to manage selected antibiotic: Vancomycin Type of Intervention Type of Consult: New start Labs Labs: Sodium 144 mmol/L (133-145) 06/11/24 20:45 Potassium 4.0 mmol/L (3.3-5.1) 06/11/24 20:45 Carbon Dioxide 25.0 mmol/L (22.0-29.0) 06/11/24 20:45 Anion Gap 11 (5-15) 06/11/24 20:45 BUN 27 mg/dL (4-19) H 06/11/24 20:45 Creatinine 1.2 mg/dL (0.8-1.3) 06/11/24 20:45 Est GFR (MDRD) Non-Af 57 (>60) L 06/11/24 20:45 BUN/Creatinine Ratio 22.6 RATIO (10-20) H 06/11/24 20:45 Glucose 93 mg/dL (70-99) 06/11/24 20:45 Microbiology Microbiology: Microbiology 06/11/24 21:30 Stool Stool Occult Blood (MERRICK) - Final Occult Blood Positive Dosing Weight Weight used for dosin kg Estimated Creatinine Clearance Estimated Creatinine Clearance: 41.73 Goal Trough Goal Trough: 15-20 mcg/mL Pharmacy Plan for Drug Dosing Pharmacy Plan for Drug Dosing: Pharmacy Service will continue to monitor and adjust dosing as required. LOADING DOSE 1750MG GIVEN 06/12 @ 0516. START 500MG Q12H AND DRAW TROUGH PRIOR TO 4TH DOSE Follow-Up Labs Follow-Up Labs: Trough: Vancomycin Date/Time Labs Ordered Labs to be done on [date and time ordered]: 06/13 @ 6610
[2024-06-12 05:49] LABS: Absolute Lymphocyte Count 0.75 X10^3/uL (0.83-4.51); Absolute Neutrophil Count 5.7 X10^3/uL (2.0-7.7); Basophil# 0.05 X10^3/uL; Basophil% 0.7 % (0-1); Eosinophil# 0.24 X10^3/uL; Eosinophils% 3.2 % (0-5); Hemoglobin 8.9 g/dL (13.0-16.5); Lymphocyte # 0.75 X10^3/ul (0.83-4.51); Lymphocyte % 9.9 % (19-41); Mean Corp Hgb Conc 30.7 g/dL (32-36); Mean Corpuscular Hgb 31.9 pg (27.0-32.0); Mean Corpuscular Volume 103.9 fL (80-94); Mean Platelet Vol. 9.9 fl (6.2-12.0); Monocyte# 0.75 X10^3/uL; Monocyte% 9.9 % (0-10); NRBC Flagged by Analyzer 0 % (0-5); Neutrophil # 5.71 X10^3/uL (2.7-7.7); Neutrophil % 75.8 % (47-70); POSITIVE MORPHOLOGY YES; Platelet Count 250 K/mm3 (150-450); RBC Distribution Width CV 18.2 % (11.6-14.6); Red Blood Count 2.79 M/mm3 (4.6-6.2); White Blood Count 7.5 K/mm3 (4.4-11.0)
[2024-06-12 06:10] LABS: Differential Indicated SCAN CRITERIA MET
[2024-06-12 07:40] LABS: Anisocytosis 1+
--- NOTE | 2024-06-12 08:38 | PN.HOSP_ITS ---
Reason for Visit Reason for Visit: Diagnoses Unspecified dementia, unspecified severity, without behavioral disturbance, psychotic disturbance, mood disturbance, and anxiety (06/12/24) Disorder of arteries and arterioles, unspecified (06/12/24) Hemorrhage of anus and rectum (06/12/24) Gastrointestinal hemorrhage, unspecified (06/12/24) Non-pressure chronic ulcer of other part of right foot with fat layer exposed (06/12/24) Acute cystitis without hematuria (06/12/24) Adverse effect of unspecified drugs, medicaments and biological substances, initial encounter (06/12/24) Objective Data Objective Data Vital Signs: Vital Signs Temp Pulse Resp BP Pulse Ox O2 Del Method 98.4 F 63 16 154/78 H 94 Room Air 06/12/24 06:11 06/12/24 06:11 06/12/24 06:11 06/12/24 06:11 06/12/24 06:11 06/12/24 06:11 Oxygen Delivery Method Room Air Weight: 70 kg Body Mass Index (BMI) 22.1 Intake & Output: Intake and Output for Last 24 Hours 06/10/24 06/11/24 06/12/24 23:59 23:59 23:59 Intake Total 1585 / 1585 Balance 1585 / 1585 Lab / Micro Data 06/12/24 05:33 06/11/24 20:45 Labs: Laboratory Results - last 24 hr 06/11/24 20:45: WBC 7.8, RBC 2.88 L, Hgb 9.2 L, Hct 30.3 L, MCV 105.2 H, MCH 31.9, MCHC 30.4 L, RDW Std Deviation 69.2 H, RDW Coeff of Ayesha 18.1 H, Plt Count 280, MPV 10.1, Immature Gran % (Auto) 0.400, Neut % (Auto) 75.0 H, Lymph % (Auto) 7.9 L, [place] % (Auto) 12.9 H, Eos % (Auto) 3.2, Baso % (Auto) 0.6, Absolute Neuts (auto) 5.9, Absolute Lymphs (auto) 0.62 L, Nucleated RBC % 0, Differential Comment SCANNED, Anisocytosis 1+, PT 13.9, INR 1.0, APTT 28.8, Sodium 144, Potassium 4.0, Chloride Direct 108, Carbon Dioxide 25.0, Anion Gap 11, BUN 27 H, Creatinine 1.2, Estim Creat Clear Calc 41.73, Est GFR (MDRD) Non- Af 57 L, BUN/Creatinine Ratio 22.6 H, Glucose 93, Calcium 9.0, Total Bilirubin 0.18, AST 22, ALT 9, Alkaline Phosphatase 86, Troponin T High Sens 40 H, Total Protein 6.2, Albumin 2.9 L, Globulin 3.3, Albumin/Globulin Ratio 0.9, Lipase 100 H, Blood Type A POSITIVE, Antibody Screen NEGATIVE 06/11/24 22:00: Lactic Acid 1.6 06/11/24 22:10: Urine Color Yellow, Urine Clarity Sl. Cloudy, Urine pH 7.0, Ur Specific [place] 1.010, Urine Protein 30 H, Urine Glucose (UA) Normal, Urine Ketones Negative, Urine Occult Blood 150 H, Urine Nitrite Positive H, Urine Bilirubin Negative, Urine Urobilinogen Normal, Ur Leukocyte Esterase 500 H, Urine RBC 0-5 SEEN, Urine WBC >100 SEEN, Ur Squamous Epith Cells 0 SEEN, Urine Bacteria 3+, Urine Mucus 0 SEEN 06/11/24 23:50: Magnesium 1.9, Delta Troponin T 5, Troponin T Hi Sens 2 Hr 35 H, Folate 8.68, TSH 0.847 06/12/24 05:33: WBC 7.5, RBC 2.79 L, Hgb 8.9 L, Hct 29.0 L, MCV 103.9 H, MCH 31.9, MCHC 30.7 L, RDW Std Deviation 69.0 H, RDW Coeff of Ayesha 18.2 H, Plt Count 250, MPV 9.9, Immature Gran % (Auto) 0.500, Neut % (Auto) 75.8 H, Lymph % (Auto) 9.9 L, [place] % (Auto) 9.9, Eos % (Auto) 3.2, Baso % (Auto) 0.7, Absolute Neuts (auto) 5.7, Absolute Lymphs (auto) 0.75 L, Nucleated RBC % 0, Anisocytosis 1+ Micro: Microbiology 06/11/24 21:30 Stool Stool Occult Blood (MERRICK) - Final Occult Blood Positive Radiography Diagnostic Testing: Radiology Impression Abdomen/Pelvis CT 06/11/24 21:48 IMPRESSION: Asymmetric rectal wall thickening which may represent hemorrhoids but a mass can not be excluded. Colonic diverticulosis.. Concentric urinary bladder wall thickening which may be due to detrusor muscle hypertrophy or cystitis. Bilateral pleural effusions. One or more dose reduction techniques were used (e.g., Automated exposure control, adjustment of the mA and/or kV according to patient size, use of iterative reconstruction technique). Reading Location: [id number] Lower Extremity CT 06/12/24 04:26 IMPRESSION: Limited examination. Diffuse subcutaneous and intramuscular edema noted within the right foot. Marked heterogeneity within the bone. This examination is not diagnostic for osteomyelitis. If this is of clinical concern, consider triple phase bone scan versus MRI. No gross fracture is seen. Atherosclerotic disease. One or more dose reduction techniques were used (e.g., Automated exposure control, adjustment of the mA and/or kV according to patient size, use of iterative reconstruction technique). Reading Location: [id number]
--- NOTE | 2024-06-12 10:45 | CASEMGMT ---
SW called patient's son Wesley. Introduced self and role at [facility]. SW confirmed patient's plan is to return to [place] at discharge. Plan: d/c back to [place] when medically ready. Lanny MCMILLAN
[2024-06-12] MEDS: Pantoprazole Sodium 40 MG in 0.9% Normal Saline (100mL MB+) 100 ML 330 MG IV (10:51)
--- NOTE | 2024-06-12 14:44 | NURSING ---
This RN is aware of Vital Signs that were taken this morning by Diya Azul [facility] [employer].
--- NOTE | 2024-06-12 14:51 | WOUNDNOTE ---
wound photo: right foot
--- NOTE | 2024-06-12 14:51 | WOUNDNOTE ---
wound photo: right lateral ankle
[2024-06-12] MEDS: CLARIFY ORDER 1 EACH NOTE (15:31)
--- NOTE | 2024-06-12 15:58 | PCM.CONS.GEN ---
Assessment & Plan Assessment/Plan (1) Non-pressure chronic ulcer of right ankle with necrosis of muscle: (2) Other specified peripheral vascular diseases: (3) Gangrene, not elsewhere classified: (4) Osteomyelitis of ankle, right, acute: PLAN: Plan Evaluation performed. A culture has been obtained right ankle ulceration. Patient is on antibiotics Ceftriaxone and Vancoymcin - there is concern for possible osteomyelitis right lateral malleolus, Xrays ordered, CT scan has been obtained, MRI would be best but does not appear we can get MRI due to patient's pacemaker. Infectious Disease consulted. Patient also with lower extremity peripheral vascular disease - consult placed to vascular surgery service. Wound care - betadine soln to right ankle ulceration and gauze dressing changes daily. Keep offloaded at all times. Podiatry will continue to follow, thank you for consultation. Discussed with Dr. Callahan today. HPI Consult Data Date of Consult: 06/12/24 HPI Narrative HPI Narrative: FEI OLEARY, is a 88 M who presents with multiple medical problems. He has lower extremity peripheral vascular disease and per patient's son patient had recent vascular intervention at [facility] about 1 month ago. Patient has a wound on his right ankle, also some evidence of vascular disease on his toes. He is a very poor historian so history was obtained from his son who patient requested I speak with. It was noticed the right ankle ulceration appeared infected, he has been started on antibiotics, he had a CT scan which was not able to determine if there was osteomyelitis. Patient recently had a pacemaker placed. He also has a GI bleed. Patient is resting in bed. [facility] Medical History Large bowel bleed Non-smoker Atrial fibrillation Diabetes Hallucinations Dementia Gait disorder Cancer Sleep apnea Chest pain Hypertension Carpal tunnel syndrome on both sides History of non-ST elevation myocardial infarction (NSTEMI) (07/02/19) UTI (urinary tract infection) Atrial fibrillation with RVR (05/28/20) Acute diarrheal illness Acute kidney injury Pneumonia due to COVID-19 virus (03/23/20) Septic shock PAD (peripheral artery disease) Delayed wound healing Debility Nonhealing ulcer of left lower extremity with fat layer exposed Non-healing ulcer of right foot with fat layer exposed Neuropathy Rectal prolapse Right bundle branch block (RBBB) Open wound of finger of left hand Chronic pain of right heel Ulcer of right lower extremity with fat layer exposed Ulcer of right heel Peripheral arterial occlusive disease Urinary incontinence Essential (primary) hypertension Spondylolisthesis Lumbar stenosis Peripheral neuropathy 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 DDD (degenerative disc disease) GERD (gastroesophageal reflux disease) Prostate cancer Obstructive sleep apnea Hyperlipidemia Home Medications ?Medication ?Instructions ?Recorded ?Last Taken ?Type duloxetine 30 mg capsule,delayed 30 mg PO DAILY DEPRESSION 03/06/19 04/25/24 History release atorvastatin 20 mg tablet 20 mg PO QHS CHOLESTEROL #90 tabs 06/10/19 04/24/24 Rx Motorized wheelchair #1 ea 06/29/22 Unknown Rx acetaminophen 500 mg tablet 1,000 mg PO TID LOWER BACK PAIN 06/30/22 04/23/24 History furosemide 40 mg tablet (Lasix) 20 mg PO DAILY FLUID 06/30/22 04/25/24 History mirtazapine 30 mg tablet 15 mg PO QHS DEPRESSION 06/30/22 04/24/24 History potassium chloride 10 mEq 40 meq PO DAILY SUPPLEMENT 06/30/22 04/24/24 History tablet,extended release(part/cryst) isosorbide mononitrate 60 mg 60 mg PO DAILY #30 tabs 04/20/23 04/25/24 Rx tablet,extended release 24 hr memantine 28 mg capsule 28 mg PO DAILY #30 ea 05/16/23 Unknown Rx sprinkle,extended release 24hr lisinopril 5 mg tablet 5 mg PO DAILY 03/08/24 04/24/24 History amiodarone 200 mg tablet 200 mg PO DAILY 04/28/24 04/25/24 History aspirin 81 mg tablet,delayed 81 mg PO DAILY 04/28/24 04/25/24 History release clopidogrel 75 mg tablet 75 mg PO DAILY 04/28/24 Unknown History fluorometholone 0.1 % eye 1 drp ophthalmic (eye) Q12H 04/28/24 04/25/24 History drops,suspension metoprolol tartrate 100 mg tablet 150 mg PO Q12H 04/28/24 04/25/24 History pantoprazole 40 mg tablet,delayed 40 mg PO DAILY 04/28/24 Unknown History release Allergy/AdvReac Type Severity Reaction Status Date / Time latex Allergy Unknown unknown Verified 06/11/24 20:29 carisoprodol Allergy Other Verified 06/11/24 20:29 itraconazole Allergy Other Verified 06/11/24 20:29 COVID-19 (SARS-CoV-2) AdvReac Other Verified 06/11/24 20:29 vaccine, jeanie Family History Mother CVA (cerebral vascular accident) Sister Hypertension Surgical History History of coronary artery stent placement History of left heart catheterization (07/02/19) History of angioplasty of peripheral vessel (10/23/13) History of coronary artery stent placement (10/07/15) History of back surgery History of shoulder surgery History of hernia repair History of tonsillectomy History of prostatectomy Social History housing: jail Smoking Status: Never smoker alcohol intake: never substance use type: does not use caffeine: Yes Type: tea what type of physical activity do you participate in: none seatbelt use: always do you feel safe at home: Yes Physical Exam Const alert and no apparent distress Constitutional Narrative: There is a wound to the lateral ankle overlying the lateral malleolus with fibrotic boggy base, there is surrounding erythema and there is serous drainage, probed about a half centimeter deep and close to bone, there are dry eschars to toes bilateral, there is no visible abscess bilateral. No evidence of acute ischemia bilateral foot or ankle and findings appear chronic at this time bilateral. Peripheral neuropathy is noted as there is decreased sensation bilateral foot and ankle. Legs are externally rotated when resting bilateral with pressure on heels and lateral ankle bilateral. Diffuse DJD to joints of the foot bilateral. Pes planus deformities bilateral. Lab / Micro Data 06/12/24 05:33 06/11/24 20:45 Labs: Laboratory Results - last 24 hr 06/11/24 20:45: WBC 7.8, RBC 2.88 L, Hgb 9.2 L, Hct 30.3 L, MCV 105.2 H, MCH 31.9, MCHC 30.4 L, RDW Std Deviation 69.2 H, RDW Coeff of Ayesha 18.1 H, Plt Count 280, MPV 10.1, Immature Gran % (Auto) 0.400, Neut % (Auto) 75.0 H, Lymph % (Auto) 7.9 L, [place] % (Auto) 12.9 H, Eos % (Auto) 3.2, Baso % (Auto) 0.6, Absolute Neuts (auto) 5.9, Absolute Lymphs (auto) 0.62 L, Nucleated RBC % 0, Differential Comment SCANNED, Anisocytosis 1+, PT 13.9, INR 1.0, APTT 28.8, Sodium 144, Potassium 4.0, Chloride Direct 108, Carbon Dioxide 25.0, Anion Gap 11, BUN 27 H, Creatinine 1.2, Estim Creat Clear Calc 41.73, Est GFR (MDRD) Non-Af 57 L, BUN/Creatinine Ratio 22.6 H, Glucose 93, Calcium 9.0, Total Bilirubin 0.18, AST 22, ALT 9, Alkaline Phosphatase 86, Troponin T High Sens 40 H, Total Protein 6.2, Albumin 2.9 L, Globulin 3.3, Albumin/Globulin Ratio 0.9, Lipase 100 H, Blood Type A POSITIVE, Antibody Screen NEGATIVE 06/11/24 22:00: Lactic Acid 1.6 06/11/24 22:10: Urine Color Yellow, Urine Clarity Sl. Cloudy, Urine pH 7.0, Ur Specific [place] 1.010, Urine Protein 30 H, Urine Glucose (UA) Normal, Urine Ketones Negative, Urine Occult Blood 150 H, Urine Nitrite Positive H, Urine Bilirubin Negative, Urine Urobilinogen Normal, Ur Leukocyte Esterase 500 H, Urine RBC 0-5 SEEN, Urine WBC >100 SEEN, Ur Squamous Epith Cells 0 SEEN, Urine Bacteria 3+, Urine Mucus 0 SEEN 06/11/24 23:50: Magnesium 1.9, Delta Troponin T 5, Troponin T Hi Sens 2 Hr 35 H, Folate 8.68, TSH 0.847 06/12/24 05:33: WBC 7.5, RBC 2.79 L, Hgb 8.9 L, Hct 29.0 L, MCV 103.9 H, MCH 31.9, MCHC 30.7 L, RDW Std Deviation 69.0 H, RDW Coeff of Ayesha 18.2 H, Plt Count 250, MPV 9.9, Immature Gran % (Auto) 0.500, Neut % (Auto) 75.8 H, Lymph % (Auto) 9.9 L, [place] % (Auto) 9.9, Eos % (Auto) 3.2, Baso % (Auto) 0.7, Absolute Neuts (auto) 5.7, Absolute Lymphs (auto) 0.75 L, Nucleated RBC % 0, Anisocytosis 1+ Micro: Microbiology 06/11/24 21:30 Stool Stool Occult Blood (MERRICK) - Final Occult Blood Positive Imaging Radiology Impression Abdomen/Pelvis CT 06/11/24 21:48 IMPRESSION: Asymmetric rectal wall thickening which may represent hemorrhoids but a mass can not be excluded. Colonic diverticulosis.. Concentric urinary bladder wall thickening which may be due to detrusor muscle hypertrophy or cystitis. Bilateral pleural effusions. One or more dose reduction techniques were used (e.g., Automated exposure control, adjustment of the mA and/or kV according to patient size, use of iterative reconstruction technique). Reading Location: [id number] Lower Extremity CT 06/12/24 04:26 IMPRESSION: Limited examination. Diffuse subcutaneous and intramuscular edema noted within the right foot. Marked heterogeneity within the bone. This examination is not diagnostic for osteomyelitis. If this is of clinical concern, consider triple phase bone scan versus MRI. No gross fracture is seen. Atherosclerotic disease. One or more dose reduction techniques were used (e.g., Automated exposure control, adjustment of the mA and/or kV according to patient size, use of iterative reconstruction technique). Reading Location: [id number]
--- NOTE | 2024-06-12 16:48 | RAD_ITS ---
PROCEDURE: ANKLE MIN 3 VIEWS REASON FOR EXAM: 88-year-old male, lateral malleolus ulcer concerning for osteomyelitis. TECHNIQUE: 3 views of the right ankle COMPARISON: None FINDINGS: No visible fracture. Diffuse osteosclerosis and heterogeneity of the distal right fibula. Additional findings of heterogeneity along the distal right tibia, likely chronic fracture deformity. Normal alignment. Mortise appears intact. No effusion. No soft tissue gas or radiopaque foreign body. RAD/Ankle min 3 Views IMPRESSION: Diffuse osseous sclerosis and heterogeneity of the distal right fibula and tibi a, likely old traumatic changes with superimposed chronic osteomyelitis. Clinical correlation recommended. Reading Location: [id number]
--- NOTE | 2024-06-12 16:48 | RAD_ITS ---
PROCEDURE: FOOT MIN 3 VIEWS REASON FOR EXAM: 88-year-old male, necrotic left toes. TECHNIQUE: 3 view(s) of the left foot COMPARISON: Left foot radiographs 05/18/2021. FINDINGS: Marked diffuse osseous demineralization. No visible fracture. Normal alignment. Moderate degenerative changes. No soft tissue swelling or gas. No radiopaque foreign body. RAD/Foot min 3 Views IMPRESSION: Negative left foot radiographs. Reading Location: [id number]
--- NOTE | 2024-06-12 16:48 | RAD_ITS ---
PROCEDURE: FOOT MIN 3 VIEWS REASON FOR EXAM: 88-year-old male, necrotic toes of the right foot. TECHNIQUE: 3 view(s) of the right foot COMPARISON: Right foot radiographs 10/05/2022. FINDINGS: Marked diffuse osseous demineralization. No visible fracture. Increased lucency surrounding the 5th metatarsal head, without obvious fracture. Normal alignment. Mild diffuse soft tissue swelling. RAD/Foot min 3 Views IMPRESSION: Increased lucency surrounding the 5th metatarsal head without obvious fracture. Diffuse osseous demineralization. Reading Location: [id number]
[2024-06-12] MEDS: Vancomycin IV 500 MG/100 ML BAG 100 MG IV (17:33)
[2024-06-12] MEDS: Bisacodyl 5 MG Tablet 20 MG PO (17:33)
--- NOTE | 2024-06-12 18:01 | NURSING ---
Hydralizine given per orders. BP rechecked and is now SBP 161. Will continue to monitor,
--- NOTE | 2024-06-12 18:11 | EX.PCM.CON.G ---
HPI Consult Data Date of Consult: 06/12/24 HPI Narrative Reason for Consultation: GI bleed HPI Narrative: FEI OLEARY, is a 88 M with a past medical history of essential hypertension; on lisinopril, metoprolol and furosemide, hyperlipidemia; on atorvastatin, CAD; s/p NSTEMI with multiple subsequent stents on BASA, clopidogrel and ISMO, history of atrial fibrillation (2020); on amiodarone but not on anticoagulation, history of RBBB, severe PAD; s/p stent (2013) with history of chronic ulcers on both feet, history of LGIB (06/2022). He had colonoscopy done here by myself that revealed medium-sized angiodysplastic lesion in the cecum, history of rectal prolapse, GERD; with history of EGD that only revealed a small hiatal hernia (06/2022), ZEYNEP, SCOTT, peripheral neuropathy, history of mild cognitive impairment with hallucinations; on memantine, history of depression; on duloxetine and mirtazapine, history of prostate cancer; s/p prostatectomy, history of UTI, history of septic shock, history of COVID-19 (2019), history of hernia repair and OA; with stenosis of lumbar spine plus DDD; s/p back surgery with chronic back pain along with chronic debility and gait disorder who currently resides at [facility] presents to [facility] ER complaining of LGIB with BRBPR. [facility] Medical History Large bowel bleed Non-smoker Atrial fibrillation Diabetes Hallucinations Dementia Gait disorder Cancer Sleep apnea Chest pain Hypertension Carpal tunnel syndrome on both sides History of non-ST elevation myocardial infarction (NSTEMI) (07/02/19) UTI (urinary tract infection) Atrial fibrillation with RVR (05/28/20) Acute diarrheal illness Acute kidney injury Pneumonia due to COVID-19 virus (03/23/20) Septic shock PAD (peripheral artery disease) Delayed wound healing Debility Nonhealing ulcer of left lower extremity with fat layer exposed Non-healing ulcer of right foot with fat layer exposed Neuropathy Rectal prolapse Right bundle branch block (RBBB) Open wound of finger of left hand Chronic pain of right heel Ulcer of right lower extremity with fat layer exposed Ulcer of right heel Peripheral arterial occlusive disease Urinary incontinence Essential (primary) hypertension Spondylolisthesis Lumbar stenosis Peripheral neuropathy 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 DDD (degenerative disc disease) GERD (gastroesophageal reflux disease) Prostate cancer Obstructive sleep apnea Hyperlipidemia Home Medications ?Medication ?Instructions ?Recorded ?Last Taken ?Type duloxetine 30 mg capsule,delayed 30 mg PO DAILY DEPRESSION 03/06/19 04/25/24 History release atorvastatin 20 mg tablet 20 mg PO QHS CHOLESTEROL #90 tabs 06/10/19 04/24/24 Rx Motorized wheelchair #1 ea 06/29/22 Unknown Rx acetaminophen 500 mg tablet 1,000 mg PO TID LOWER BACK PAIN 06/30/22 04/23/24 History furosemide 40 mg tablet (Lasix) 20 mg PO DAILY FLUID 06/30/22 04/25/24 History mirtazapine 30 mg tablet 15 mg PO QHS DEPRESSION 06/30/22 04/24/24 History potassium chloride 10 mEq 40 meq PO DAILY SUPPLEMENT 06/30/22 04/24/24 History tablet,extended release(part/cryst) isosorbide mononitrate 60 mg 60 mg PO DAILY #30 tabs 04/20/23 04/25/24 Rx tablet,extended release 24 hr memantine 28 mg capsule 28 mg PO DAILY #30 ea 05/16/23 Unknown Rx sprinkle,extended release 24hr lisinopril 5 mg tablet 5 mg PO DAILY 03/08/24 04/24/24 History amiodarone 200 mg tablet 200 mg PO DAILY 04/28/24 04/25/24 History aspirin 81 mg tablet,delayed 81 mg PO DAILY 04/28/24 04/25/24 History release clopidogrel 75 mg tablet 75 mg PO DAILY 04/28/24 Unknown History fluorometholone 0.1 % eye 1 drp ophthalmic (eye) Q12H 04/28/24 04/25/24 History drops,suspension metoprolol tartrate 100 mg tablet 150 mg PO Q12H 04/28/24 04/25/24 History pantoprazole 40 mg tablet,delayed 40 mg PO DAILY 04/28/24 Unknown History release Allergy/AdvReac Type Severity Reaction Status Date / Time latex Allergy Unknown unknown Verified 06/11/24 20:29 carisoprodol Allergy Other Verified 06/11/24 20:29 itraconazole Allergy Other Verified 06/11/24 20:29 COVID-19 (SARS-CoV-2) AdvReac Other Verified 06/11/24 20:29 vaccine, jeanie Family History Mother CVA (cerebral vascular accident) Sister Hypertension Surgical History History of coronary artery stent placement History of left heart catheterization (07/02/19) History of angioplasty of peripheral vessel (10/23/13) History of coronary artery stent placement (10/07/15) History of back surgery History of shoulder surgery History of hernia repair History of tonsillectomy History of prostatectomy Social History housing: [facility] Smoking Status: Never smoker alcohol intake: never substance use type: does not use caffeine: Yes Type: tea what type of physical activity do you participate in: none seatbelt use: always do you feel safe at home: Yes ROS Constitutional Constitutional: Denies fatigue, fever(s), poor appetite, weight gain or weight loss Gastrointestinal Gastrointestinal: Denies belching, bloating, change in bowel habits, change in stool character, chewing difficulty, coffee ground emesis, constipation, cramping, diarrhea, dyspepsia, dysphagia, early satiety, excessive flatus, fecal incontinence, heartburn, hematemesis, hematochezia, hemorrhoids, loose stools, melena, nausea, odynophagia, rectal bleeding, tenesmus, vomiting or weight changes Physical Exam Const alert and no apparent distress General Appearance: cooperative HEENT normocephalic and head/scalp atraumatic Eyes PERRL and EOMs intact bilaterally Neck supple and No nodes Resp normal air movement and clear to auscultation bilaterally Cardio regular rate and regular rhythm Cardio Narrative: pacer in place GI soft to palpation, non-tender and non-distended Extremity General Extremity: cyanosis Skin Skin Narrative: Some purulence from R lateral ankle ulcer Neuro CN's II-XII intact bilaterally Lab / Micro Data 06/13/24 05:07 06/13/24 05:07 Labs: Laboratory Results - last 24 hr 06/12/24 05:33: Sodium 143, Potassium 4.2, Chloride Direct 108, Carbon Dioxide 21.7 L, Anion Gap 14, BUN 22 H, Creatinine 1.0, Estim Creat Clear Calc 49.58, Est GFR (MDRD) Non-Af 70, BUN/Creatinine Ratio 21.8 H, Glucose 83, Calcium 8.6, Phosphorus 3.5, Total Bilirubin < 0.15, AST 26, ALT 13, Alkaline Phosphatase 80, Total Protein 6.0, Albumin 3.0 L, Globulin 3.0, Albumin/Globulin Ratio 1.0 06/13/24 05:07: WBC 8.5, RBC 2.77 L, Hgb 8.8 L, Hct 28.6 L, MCV 103.2 H, MCH 31.8, MCHC 30.8 L, RDW Std Deviation 69.2 H, RDW Coeff of Ayesha 18.6 H, Plt Count 279, MPV 10.1, Immature Gran % (Auto) 0.500, Neut % (Auto) 79.3 H, Lymph % (Auto) 7.6 L, [place] % (Auto) 10.5 H, Eos % (Auto) 1.6, Baso % (Auto) 0.5, Absolute Neuts (auto) 6.7, Absolute Lymphs (auto) 0.65 L, Nucleated RBC % 0.2, Hypochromasia 1+, Anisocytosis RARE, PT 14.6, INR 1.1, APTT 31.5, Sodium 150 H, Potassium 3.1 L, Chloride Direct 113 H, Carbon Dioxide 23.7, Anion Gap 14, BUN 16, Creatinine 1.1, Estim Creat Clear Calc 44.30, Est GFR (MDRD) Non-Af 68, BUN/Creatinine Ratio 15.4, Glucose 154 H, Calcium 9.0, Total Bilirubin 0.16, Direct Bilirubin 0.08, AST 27, ALT 11, Alkaline Phosphatase 83, Total Protein 6.1, Albumin 3.0 L, Globulin 3.1 Micro: Microbiology 06/12/24 13:50 Wound - Ankle Gram Stain - Final 06/12/24 13:50 Wound - Ankle Wound Culture - Preliminary Gram positive organism 06/11/24 22:10 Urine, Clean Catch Urine Culture - Preliminary Gram negative phoebe Assessment & Plan Assessment/Plan (1) LGI bleed: (2) BRBPR (bright red blood per rectum): (3) Adverse drug reaction: QUALIFIERS: Encounter type: initial encounter Qualified Code(s): T50.905A - Adverse effect of unspecified drugs, medicaments and biological substances, initial encounter (4) Acute cystitis without hematuria: (5) Peripheral arterial occlusive disease: (6) Foot ulcer, right: QUALIFIERS: Non-pressure ulcer stage: with fat layer exposed Qualified Code(s): L97.512 - Non-pressure chronic ulcer of other part of right foot with fat layer exposed (7) Dementia: QUALIFIERS: Dementia type: unspecified type Dementia severity: unspecified severity Dementia behavioral or psychological symptom: without behavioral, psychotic, or mood disturbance or anxiety Qualified Code(s): F03.90 - Unspecified dementia, unspecified severity, without behavioral disturbance, psychotic disturbance, mood disturbance, and anxiety PLAN: Plan LGIB with BRBPR; 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 He was explained alternatives, risk and benefits include not withstanding bleeding, infection, sepsis, perforation, need for emergent urgent . He will have an ASA of 3.
--- NOTE | 2024-06-12 19:48 | NURSING ---
This RN checked to see if Clearlax was up here from [facility] and at 1850 it was not yet up here. [employer] shift lead aware.
[2024-06-12] MEDS: Polyethylene Glycol 3350 BOWEL PREP PO (20:15)
--- NOTE | 2024-06-12 20:25 | PCM.HOSP.N ---
Hospitalist Note Patient is a 88-year-old male with a complex medical history who presents emergency department with bright red blood per rectum. Patient does have previous colonoscopy done in 2022 at which time he was found to have angiodysplastic lesions in the cecum. With his worsening anemia and rectal bleeding colonoscopy planned for tomorrow and possible EGD. Prep started today. Patient also has significant wounds on bilateral lower extremities. I did discuss the case with Dr. Garcia and he would like infectious disease and vascular surgery to evaluate the patient. Overall clinically the patient is elderly and extremely poor health. Will need to have further conversation with patient's family tomorrow with regards to overall goals of care. Current CODE STATUS is DNR CCA with no intubation as per previous documentation. There is concerned that there is osteomyelitis of the ankle however he is unable to undergo MRI due to pacemaker placement. Will repeat lab in the a.m. and await further input from gastroenterology, infectious disease, vascular surgery, and podiatry. He is and has a son and a daughter listed as contacts. Will need to verify POA and have further conversation with them.
[2024-06-12] MEDS: 0.9% Saline Lock 10 ML Syringe IV (22:00)
[2024-06-13] VITALS (18 sets, daily range): BP systolic 114–163; BP diastolic 51–85; PULSE 60–62; RESP 16–18; TEMP 36.5–37.4; O2SAT 89–100; BMI 21.7
[2024-06-13 02:36] LABS: Phosphorus 3.5 mg/dL (2.7-4.5)
[2024-06-13 02:56] LABS: AST(SGOT) 26 U/L (<=37); Alanine Aminotransfer ALT/SGPT 13 U/L (<=46); Alkaline Phosphatase 80 U/L (40-129); Anion Gap 14 (5-15); BUN 22 mg/dL (4-19); BUN/Creat Ratio 21.8 RATIO (10-20); Calcium 8.6 mg/dL (7.6-11.0); Carbon Dioxide 21.7 mmol/L (22.0-29.0); Chloride 108 mmol/L (96-108); EST Glomerular Filtration Rate 70 (>60); Estimated Creatinine Clearance 49.58 ml/min; Glucose 83 mg/dL (70-99); Potassium 4.2 mmol/L (3.3-5.1); Sodium Level 143 mmol/L (133-145); Total Bilirubin < 0.15 mg/dL (0.00-1.30)
[2024-06-13 05:52] LABS: Absolute Lymphocyte Count 0.65 X10^3/uL (0.83-4.51); Absolute Neutrophil Count 6.7 X10^3/uL (2.0-7.7); Basophil# 0.04 X10^3/uL; Basophil% 0.5 % (0-1); Eosinophil# 0.14 X10^3/uL; Eosinophils% 1.6 % (0-5); Hematocrit 28.6 % (40-54); Hemoglobin 8.8 g/dL (13.0-16.5); Lymphocyte # 0.65 X10^3/ul (0.83-4.51); Lymphocyte % 7.6 % (19-41); Mean Corp Hgb Conc 30.8 g/dL (32-36); Mean Corpuscular Hgb 31.8 pg (27.0-32.0); Mean Corpuscular Volume 103.2 fL (80-94); Mean Platelet Vol. 10.1 fl (6.2-12.0); Monocyte# 0.89 X10^3/uL; Monocyte% 10.5 % (0-10); NRBC Flagged by Analyzer 0.2 % (0-5); Neutrophil # 6.74 X10^3/uL (2.7-7.7); Neutrophil % 79.3 % (47-70); POSITIVE MORPHOLOGY YES; Platelet Count 279 K/mm3 (150-450); RBC Distribution Width CV 18.6 % (11.6-14.6); RBC Distribution Width SD 69.2 fl (35.1-43.9); Red Blood Count 2.77 M/mm3 (4.6-6.2); White Blood Count 8.5 K/mm3 (4.4-11.0)
[2024-06-13] MEDS: Vancomycin IV 500 MG/100 ML BAG 100 MG IV (05:55)
[2024-06-13 05:56] LABS: Differential Indicated SCAN CRITERIA MET
[2024-06-13 06:18] LABS: AST(SGOT) 27 U/L (<=37); Alanine Aminotransfer ALT/SGPT 11 U/L (<=46); Alkaline Phosphatase 83 U/L (40-129); Anion Gap 14 (5-15); BUN 16 mg/dL (4-19); BUN/Creat Ratio 15.4 RATIO (10-20); Bilirubin, Direct 0.08 mg/dL (0.00-0.30); Carbon Dioxide 23.7 mmol/L (22.0-29.0); Chloride 113 mmol/L (96-108); Creatinine, Serum 1.1 mg/dL (0.8-1.3); EST Glomerular Filtration Rate 68 (>60); Globulin 3.1 g/dL (2.2-4.2); Glucose 154 mg/dL (70-99); Potassium 3.1 mmol/L (3.3-5.1); Protein, Total 6.1 g/dL (5.9-8.4); Sodium Level 150 mmol/L (133-145); Total Bilirubin 0.16 mg/dL (0.00-1.30)
--- NOTE | 2024-06-13 07:15 | EX.PCM.CON.S ---
Assessment & Plan Assessment/Plan (1) Non-pressure chronic ulcer of right ankle with necrosis of muscle: (2) Foot ulcer, right: QUALIFIERS: Non-pressure ulcer stage: with fat layer exposed Qualified Code(s): L97.512 - Non-pressure chronic ulcer of other part of right foot with fat layer exposed (3) Peripheral arterial occlusive disease: PLAN: Plan He has severe RLE PAD with history of multiple prior angioplasty/stents throughout; given this would want to obtain CTA Abd/Pelvis with runoff for interventional planning. However, patient has had some respiratory decompensation overnight and now requiring bipap. I would recommend holding off on CTA until his respiratory status improves, in discussion with his daughter she felt most comfortable with this approach. If possible, would get CTA runoff during admission but anticipate planning for any intervention on an outpatient basis as long as his vascular status remains stable. Also discussed with Dr. Garcia, if operative debridement is necessary feel this is reasonable to do prior to revascularization as needed for infection management. HPI Consult Data Date of Consult: 06/14/24 HPI Narrative HPI Narrative: FEI OLEARY, is a 88 M who presented to the [facility] ER on 06/12/24 with BRBPR from his SNF [facility]. He was admitted for suspected lower GI bleed and UTI/acute cystitis. He was also noted to have R ankle ulceration with concern for associated cellulitis for which podiatry was consulted. Dr. Garcia had concern for associated osteomyelitis as well. He has been seen at the wound healing center numerous times over the last 10 years for recurrent foot/lower leg arterial/venous ulcerations. He has known severe PAD with history of multiple prior revascularization procedures. I reviewed records available in our EMR and [employer]. 2013 R SFA/popliteal stents at outside facility; 2013 balloon angioplasty R AT to pop, R peroneal to pop, SFA and popliteal stent by Dr. Rose at [facility]; 2018 mention of revasc procedure to R SFA/pop at outside facility; 2019 balloon angioplasty entire R PT, DCB distal stent into R popliteal by Dr. Rose at [facility]; 2021 L popliteal [employer]/DCB by Dr. Benja Ricketts [facility]; 04/23/2024 L ICA stent, proximal/mid SFA stent, cutting balloon angioplasty L profunda femoris by Dr. Benja Ricketts [facility] and required admission to CICU following this last angiogram. It appears that over the last few years he has been following locally with Dr. Squires at [facility] and having interventions as needed at [facility] with Dr. Benja Ricketts. From available notes at the time of his LLE angiogram in April, it seems that there was also plan in place with Dr. Ricketts for staged RLE revascularization. He had vascular testing 06/04/24 at [facility] which demonstrated R RALPH (PT) 0.47, (DP) 0.42, TBI 0.00, monophasic waveforms; L RALPH (PT) 1.01, (DP) 0.99, TBI 0.63, multiphasic waveforms. I saw patient 06/14/24 morning on bipap, lethargic, not able to participate in conversation. His daughter was at bedside and helped to supplement history. He had colonoscopy yesterday evening which identified three bleeding angiodysplastic lesions that were treated with heater probe. Overnight, he had respiratory decompensation and was placed on BiPap at that time. Repeat CXR She shares that his last procedure at was over 7 hours and her understanding was that some of those interventions could only be done at ; however, if it would be possible they would prefer to have any further interventions done here in [place] to remain more local. She reports he had a wound on his L foot which has healed since the procedure. [facility] Medical History Large bowel bleed Non-smoker Atrial fibrillation Diabetes Hallucinations Dementia Gait disorder Cancer Sleep apnea Chest pain Hypertension Carpal tunnel syndrome on both sides History of non-ST elevation myocardial infarction (NSTEMI) (07/02/19) UTI (urinary tract infection) Atrial fibrillation with RVR (05/28/20) Acute diarrheal illness Acute kidney injury Pneumonia due to COVID-19 virus (03/23/20) Septic shock PAD (peripheral artery disease) Delayed wound healing Debility Nonhealing ulcer of left lower extremity with fat layer exposed Non-healing ulcer of right foot with fat layer exposed Neuropathy Rectal prolapse Right bundle branch block (RBBB) Open wound of finger of left hand Chronic pain of right heel Ulcer of right lower extremity with fat layer exposed Ulcer of right heel Peripheral arterial occlusive disease Urinary incontinence Essential (primary) hypertension Spondylolisthesis Lumbar stenosis Peripheral neuropathy 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 DDD (degenerative disc disease) GERD (gastroesophageal reflux disease) Prostate cancer Obstructive sleep apnea Hyperlipidemia Home Medications ?Medication ?Instructions ?Recorded ?Last Taken ?Type duloxetine 30 mg capsule,delayed 30 mg PO DAILY DEPRESSION 03/06/19 04/25/24 History release atorvastatin 20 mg tablet 20 mg PO QHS CHOLESTEROL #90 tabs 06/10/19 04/24/24 Rx Motorized wheelchair #1 ea 06/29/22 Unknown Rx acetaminophen 500 mg tablet 1,000 mg PO TID LOWER BACK PAIN 06/30/22 04/23/24 History furosemide 40 mg tablet (Lasix) 20 mg PO DAILY FLUID 06/30/22 04/25/24 History mirtazapine 30 mg tablet 15 mg PO QHS DEPRESSION 06/30/22 04/24/24 History potassium chloride 10 mEq 40 meq PO DAILY SUPPLEMENT 06/30/22 04/24/24 History tablet,extended release(part/cryst) isosorbide mononitrate 60 mg 60 mg PO DAILY #30 tabs 04/20/23 04/25/24 Rx tablet,extended release 24 hr memantine 28 mg capsule 28 mg PO DAILY #30 ea 05/16/23 Unknown Rx sprinkle,extended release 24hr lisinopril 5 mg tablet 5 mg PO DAILY 03/08/24 04/24/24 History amiodarone 200 mg tablet 200 mg PO DAILY 04/28/24 04/25/24 History aspirin 81 mg tablet,delayed 81 mg PO DAILY 04/28/24 04/25/24 History release clopidogrel 75 mg tablet 75 mg PO DAILY 04/28/24 Unknown History fluorometholone 0.1 % eye 1 drp ophthalmic (eye) Q12H 04/28/24 04/25/24 History drops,suspension metoprolol tartrate 100 mg tablet 150 mg PO Q12H 04/28/24 04/25/24 History pantoprazole 40 mg tablet,delayed 40 mg PO DAILY 04/28/24 Unknown History release Allergy/AdvReac Type Severity Reaction Status Date / Time latex Allergy Unknown unknown Verified 06/11/24 20:29 carisoprodol Allergy Other Verified 06/11/24 20:29 itraconazole Allergy Other Verified 06/11/24 20:29 COVID-19 (SARS-CoV-2) AdvReac Other Verified 06/11/24 20:29 vaccine, jeanie Family History Mother CVA (cerebral vascular accident) Sister Hypertension Surgical History History of coronary artery stent placement History of left heart catheterization (07/02/19) History of angioplasty of peripheral vessel (10/23/13) History of coronary artery stent placement (10/07/15) History of back surgery History of shoulder surgery History of hernia repair History of tonsillectomy History of prostatectomy Social History housing: assisted Smoking Status: Never smoker alcohol intake: never substance use type: does not use caffeine: Yes Type: tea what type of physical activity do you participate in: none seatbelt use: always do you feel safe at home: Yes Physical Exam Const Constitutional Narrative: lethargic, on bipap Exam Limitations: other limitations Resp Resp Narrative: On bipap Cardio regular rate and regular rhythm Extremity Extremity Narrative: R foot with wound dressings in place, C/D/I; examined toes with noted dry eschars R 1st and 2nd toes; did not directly examine lateral malleolus wound but reviewed pictures in chart Neuro Sensorium / Orientation: lethargic Lab / Micro Data 06/14/24 05:12 06/14/24 05:12 Labs: Laboratory Results - last 24 hr 06/12/24 05:33: Anisocytosis 1+, Sodium 143, Potassium 4.2, Chloride Direct 108, Carbon Dioxide 21.7 L, Anion Gap 14, BUN 22 H, Creatinine 1.0, Estim Creat Clear Calc 49.58, Est GFR (MDRD) Non-Af 70, BUN/Creatinine Ratio 21.8 H, Glucose 83, Calcium 8.6, Phosphorus 3.5, Total Bilirubin < 0.15, AST 26, ALT 13, Alkaline Phosphatase 80, Total Protein 6.0, Albumin 3.0 L, Globulin 3.0, Albumin/Globulin Ratio 1.0 06/13/24 05:07: WBC 8.5, RBC 2.77 L, Hgb 8.8 L, Hct 28.6 L, MCV 103.2 H, MCH 31.8, MCHC 30.8 L, RDW Std Deviation 69.2 H, RDW Coeff of Ayesha 18.6 H, Plt Count 279, MPV 10.1, Immature Gran % (Auto) 0.500, Neut % (Auto) 79.3 H, Lymph % (Auto) 7.6 L, [place] % (Auto) 10.5 H, Eos % (Auto) 1.6, Baso % (Auto) 0.5, Absolute Neuts (auto) 6.7, Absolute Lymphs (auto) 0.65 L, Nucleated RBC % 0.2, Sodium 150 H, Potassium 3.1 L, Chloride Direct 113 H, Carbon Dioxide 23.7, Anion Gap 14, BUN 16, Creatinine 1.1, Estim Creat Clear Calc 44.30, Est GFR (MDRD) Non-Af 68, BUN/Creatinine Ratio 15.4, Glucose 154 H, Calcium 9.0, Total Bilirubin 0.16, Direct Bilirubin 0.08, AST 27, ALT 11, Alkaline Phosphatase 83, Total Protein 6.1, Albumin 3.0 L, Globulin 3.1 Imaging Radiology Impression Ankle X-Ray 06/12/24 16:48 IMPRESSION: Diffuse osseous sclerosis and heterogeneity of the distal right fibula and tibia, likely old traumatic changes with superimposed chronic osteomyelitis. Clinical correlation recommended. Reading Location: [facility] Foot X-Ray 06/12/24 16:48 IMPRESSION: Increased lucency surrounding the 5th metatarsal head without obvious fracture. Diffuse osseous demineralization. Reading Location: [facility] Foot X-Ray 06/12/24 16:48 IMPRESSION: Negative left foot radiographs. Reading Location: [facility] Charges/Coding Visit Charges Inpatient E&M: 35289 Init Hosp L1
[2024-06-13 07:16] LABS: International Normalized Ratio 1.1; Prothrombin Time (Protime)PT. 14.6 SECONDS (11.7-14.9)
[2024-06-13 07:17] LABS: Partial Thromboplast Time 31.5 Seconds (24.1-36.2)
[2024-06-13 07:25] LABS: Anisocytosis RARE; Hypochromasia 1+
--- NOTE | 2024-06-13 08:31 | PN.HOSP_ITS ---
Reason for Visit Reason for Visit: Bright red blood per rectum Subjective Subjective No further bleeding. Patient states his leg pain is fairly well-controlled. Had significant revascularization at in the left lower extremity has been doing well. Needs to have his right leg evaluated further. Would like to transition all care here to this hospital. Family at bedside and questions were answered. Discharge will depend on the plan from podiatry and infectious disease as well as findings on colonoscopy. Objective Data Objective Data Vital Signs: Vital Signs Temp Pulse Resp BP Pulse Ox O2 Del Method O2 Flow Rate 97.7 F L 61 16 157/85 H 94 Room Air 3 06/13/24 02:00 06/13/24 02:00 06/13/24 02:00 06/13/24 02:00 06/13/24 02:00 06/13/24 03:40 06/12/24 14:00 Oxygen Flow Rate (L/min) 3 Oxygen Delivery Method Room Air Weight: 68.8 kg Body Mass Index (BMI) 21.7 Intake & Output: Intake and Output for Last 24 Hours 06/11/24 06/12/24 06/13/24 23:59 23:59 23:59 Intake Total 3085 / 3965 1560 / 1560 Output Total 700 / 700 Balance 2385 / 3265 1560 / 1560 Lab / Micro Data 06/13/24 05:07 06/13/24 05:07 Labs: Laboratory Results - last 24 hr 06/12/24 05:33: Sodium 143, Potassium 4.2, Chloride Direct 108, Carbon Dioxide 21.7 L, Anion Gap 14, BUN 22 H, Creatinine 1.0, Estim Creat Clear Calc 49.58, Est GFR (MDRD) Non-Af 70, BUN/Creatinine Ratio 21.8 H, Glucose 83, Calcium 8.6, Phosphorus 3.5, Total Bilirubin < 0.15, AST 26, ALT 13, Alkaline Phosphatase 80, Total Protein 6.0, Albumin 3.0 L, Globulin 3.0, Albumin/Globulin Ratio 1.0 06/13/24 05:07: WBC 8.5, RBC 2.77 L, Hgb 8.8 L, Hct 28.6 L, MCV 103.2 H, MCH 31.8, MCHC 30.8 L, RDW Std Deviation 69.2 H, RDW Coeff of Ayesha 18.6 H, Plt Count 279, MPV 10.1, Immature Gran % (Auto) 0.500, Neut % (Auto) 79.3 H, Lymph % (Auto) 7.6 L, [place] % (Auto) 10.5 H, Eos % (Auto) 1.6, Baso % (Auto) 0.5, Absolute Neuts (auto) 6.7, Absolute Lymphs (auto) 0.65 L, Nucleated RBC % 0.2, Hypochromasia 1+, Anisocytosis RARE, PT 14.6, INR 1.1, APTT 31.5, Sodium 150 H, Potassium 3.1 L, Chloride Direct 113 H, Carbon Dioxide 23.7, Anion Gap 14, BUN 16, Creatinine 1.1, Estim Creat Clear Calc 44.30, Est GFR (MDRD) Non-Af 68, BUN/Creatinine Ratio 15.4, Glucose 154 H, Calcium 9.0, Total Bilirubin 0.16, Direct Bilirubin 0.08, AST 27, ALT 11, Alkaline Phosphatase 83, Total Protein 6.1, Albumin 3.0 L, Globulin 3.1 Micro: Microbiology 06/11/24 21:30 Stool Stool Occult Blood (MERRICK) - Final Occult Blood Positive Radiography Diagnostic Testing: Radiology Impression Ankle X-Ray 06/12/24 16:48 IMPRESSION: Diffuse osseous sclerosis and heterogeneity of the distal right fibula and tibia, likely old traumatic changes with superimposed chronic osteomyelitis. Clinical correlation recommended. Reading Location: [facility] Foot X-Ray 06/12/24 16:48 IMPRESSION: Increased lucency surrounding the 5th metatarsal head without obvious fracture. Diffuse osseous demineralization. Reading Location: [facility] Foot X-Ray 06/12/24 16:48 IMPRESSION: Negative left foot radiographs. Reading Location: [facility] Physical Exam Const alert, oriented x3 and no apparent distress; Negative for average body habitus, healthy appearing or well nourished Constitutional Narrative: Elderly, debilitated, white male, lying in bed, appears comfortable, nontoxic HEENT head/scalp atraumatic HEENT Narrative: Dentition is poor, Mallampati is 2, no thrush, mucous membranes are dry due to being n.p.o. Head and Scalp: normocephalic Resp normal respiratory effort, no retractions, no use of accessory muscles and clear to auscultation bilaterally Auscultation: Negative for rales, rhonchi or wheezes Cardio regular rate, regular rhythm, S1 normal heart sound, S2 normal heart sound, no rub, no gallops and no clicks; Negative for no murmurs Cardio Narrative: 2 out of 6 systolic murmur loudest at right upper sternal border GI normal to inspection, nondistended, normoactive bowel sounds, soft to palpation and non-tender GI Narrative: Scaphoid abdomen Extremity no clubbing, cyanosis or edema Extremity Narrative: Decreased lean muscle mass, pedal pulses on right are good, reduced on left lower extremity, radial pulses are 2+ bilaterally Skin Skin Narrative: Images of bilateral lower extremities reviewed, significant wounds on right lower extremity with good cap refill in left lower extremity Neuro oriented x3, moves all extremities and no focal motor deficits Neuro Narrative: Marked generalized weakness but no focal deficits Speech: speech normal Psych affect normal Psych Narrative: Extremely pleasant Assessment & Plan Assessment/Plan (1) Osteomyelitis of ankle, right, acute: (2) Non-pressure chronic ulcer of right ankle with necrosis of muscle: (3) Other specified peripheral vascular diseases: (4) Acute cystitis without hematuria: (5) BRBPR (bright red blood per rectum): (6) LGI bleed: PLAN: Plan Lower GI bleed -Previous colonoscopy in 2022 showed angiodysplastic lesions -Colonoscopy today showed polyps in the ascending colon which were removed with hot snare, large polyp at the hepatic flexure which was removed, diverticulosis with rectal prolapse and 3 bleeding angiodysplastic lesions that were treated with heater probe -Hemoglobin has stabilized in the 8-9 region -GI is following -Should be able to start regular diet -Hold aspirin and Plavix until okay to restart per GI Abnormal UA -Highly suspicious for infection -Cultures from gram-positive however identification is pending -Continue antibiotics as ordered Right ankle osteomyelitis -Highly suspicious for osteomyelitis -Awaiting podiatry finalization on input for I&D versus bone scan -unable to obtain MRI due to pacemaker elements right you said he was a stud -Continue vancomycin and ceftriaxone for now -ID and podiatry following I will see if Brayden can talk next week to Severe peripheral vascular disease -Aspirin and Plavix are currently on hold -Patient had extensive intervention on his left lower extremity -Ongoing evaluation by vascular surgery here as patient would like to transfer care to [facility] [place] -Await further input from Dr. Lizarraga -Will restart aspirin and Plavix when appropriate per discussion with GI -Most of his previous vascular intervention has been done at Mild cognitive impairment with hallucinations -Continue home memantine Essential hypertension/hyperlipidemia -Continue home lisinopril Can continue metoprolol -Continue home isosorbide mononitrate -Continue home Lasix -Restart home atorvastatin Atrial fibrillation with history of SSS/chronic RBBB -Patient has pacemaker -Continue home amiodarone and metoprolol -Not anticoagulated due to risk GERD -Continue home PPI Depression -Continue home duloxetine -Continue mirtazapine History of prostate cancer -Status post prostatectomy -No acute issues Generalized weakness/debility -Currently living at [facility] with plans to return after discharge DVT prophylaxis -SCDs CODE STATUS -DNR CCA with no intubation Charges/Coding Visit Charges Inpatient E&M: 39463 Subs Hosp L2
[2024-06-13] MEDS: Pantoprazole Sodium 40 MG in 0.9% Normal Saline (100mL MB+) 100 ML 330 MG IV (09:07)
[2024-06-13] MEDS: 0.45% Normal Saline 1,000 ML 70 ML IV (09:08)
--- NOTE | 2024-06-13 10:35 | CASEMGMT ---
Discharge Planning Updates sent to [facility]. Love Patricio DC Planning Asst.
--- NOTE | 2024-06-13 10:42 | CON.PCM.ID_ITS ---
Assessment & Plan Assessment/Plan (1) Osteomyelitis of ankle, right, acute: PLAN: Suspected osteo. Options would be I&D vs bone scan to make the diagnosis. Wound cx with GPC so far. Has prior h/o MSSA 02/2024. Cont vanc/ceftriaxone for now. Will follow, thank you (2) Other specified peripheral vascular diseases: HPI Consult Data Date of Consult: 06/13/24 HPI Narrative Reason for Consultation: osteo HPI Narrative: FEI OLEARY, is a 88 M with h/o PAD, presented with GI bleed. Reports several months R lateral ankle ulcer, no known inciting events. Has had some progressive pain, now some new redness/swelling/drainage. No fever or chills. Some other lesions on legs. LLE wounds improved after recent vascular procedure. Admitted early AM 06/12, now on vanc/ceftriaxone. Full ROS performed and neg except as noted above. [facility] Medical History Large bowel bleed Non-smoker Atrial fibrillation Diabetes Hallucinations Dementia Gait disorder Cancer Sleep apnea Chest pain Hypertension Carpal tunnel syndrome on both sides History of non-ST elevation myocardial infarction (NSTEMI) (07/02/19) UTI (urinary tract infection) Atrial fibrillation with RVR (05/28/20) Acute diarrheal illness Acute kidney injury Pneumonia due to COVID-19 virus (03/23/20) Septic shock PAD (peripheral artery disease) Delayed wound healing Debility Nonhealing ulcer of left lower extremity with fat layer exposed Non-healing ulcer of right foot with fat layer exposed Neuropathy Rectal prolapse Right bundle branch block (RBBB) Open wound of finger of left hand Chronic pain of right heel Ulcer of right lower extremity with fat layer exposed Ulcer of right heel Peripheral arterial occlusive disease Urinary incontinence Essential (primary) hypertension Spondylolisthesis Lumbar stenosis Peripheral neuropathy 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 DDD (degenerative disc disease) GERD (gastroesophageal reflux disease) Prostate cancer Obstructive sleep apnea Hyperlipidemia Home Medications ?Medication ?Instructions ?Recorded ?Last Taken ?Type duloxetine 30 mg capsule,delayed 30 mg PO DAILY DEPRES DOMINGO 03/06/19 04/25/24 History release atorvastatin 20 mg tablet 20 mg PO QHS CHOLESTEROL #90 tabs 06/10/19 04/24/24 Rx Motorized wheelchair #1 ea 06/29/22 Unknown Rx acetaminophen 500 mg tablet 1,000 mg PO TID LOWER BACK PAIN 06/30/22 04/23/24 History furosemide 40 mg tablet (Lasix) 20 mg PO DAILY FLUID 0 06/30/22 04/25/24 History mirtazapine 30 mg tablet 15 mg PO QHS DEPRESSION 06/1504/24/24 History potassium chloride 10 mEq 40 meq PO DAILY SUPPLEMENT 0 06/30/22 04/24/24 History tablet,extended release(part/cryst) isosorbide mononitrate 60 mg 60 mg PO DAILY #30 tabs 0 04/20/23 04/25/24 Rx tablet,extended release 24 hr memantine 28 mg capsule 28 mg PO DAILY #30 ea Unknown Rx sprinkle,extended release 24hr lisinopril 5 mg tablet 5 mg PO DAILY 03/08/2404/24 History amiodarone 200 mg tablet 200 mg PO DAILY 04/28/2401/09 History aspirin 81 mg tablet,delayed 81 mg PO DAILY 04/28/24 0 04/25/24 History release clopidogrel 75 mg tablet 75 mg PO DAILY 04/28/24 Unkn own History fluorometholone 0.1 % eye 1 drp ophthalmic (eye) Q12H 04/28/24 04/25/24 History drops,suspension metoprolol tartrate 100 mg tablet 150 mg PO Q12H 04/2804/25/24 History pantoprazole 40 mg tablet,delayed 40 mg PO DAILY 04/28 Unknown History release Allergy/AdvReac Type Severity Reaction Status Date / Time latex Allergy Unknown unknown Verified 06/11/24 20:29 carisoprodol Allergy Other Verified 06/11/24 20:29 itraconazole Allergy Other Verified 06/11/24 20:29 COVID-19 (SARS-CoV-2) AdvReac Other Verified 06/11/24 20:29 vaccine, jeanie Family History Mother CVA (cerebral vascular accident) Sister Hypertension Surgical History History of coronary artery stent placement History of left heart catheterization (07/02/19) History of angioplasty of peripheral vessel (10/23/13) History of coronary artery stent placement (10/07/15) History of back surgery History of shoulder surgery History of hernia repair History of tonsillectomy History of prostatectomy Social History housing: alf Smoking Status: Never smoker alcohol intake: never substance use type: does not use caffeine: Yes Type: tea what type of physical activity do you participate in: none seatbelt use: always do you feel safe at home: Yes Physical Exam Const alert and no apparent distress General Appearance: cooperative HEENT normocephalic and head/scalp atraumatic Eyes PERRL and EOMs intact bilaterally Neck supple and No nodes Resp normal air movement and clear to auscultation bilaterally Cardio regular rate and regular rhythm Cardio Narrative: pacer in place GI soft to palpation, non-tender and non-distended Extremity General Extremity: cyanosis Skin Skin Narrative: Some purulence from R lateral ankle ulcer Neuro CN's II-XII intact bilaterally Lab / Micro Data Attestation: I reviewed the patient's lab results. 06/13/24 05:07 06/13/24 05:07 Labs: Laboratory Results - last 24 hr 06/12/24 05:33: Sodium 143, Potassium 4.2, Chloride Direct 108, Carbon Dioxide 21.7 L, Anion Gap 14, BUN 22 H, Creatinine 1.0, Estim Creat Clear Calc 49.58, Est GFR (MDRD) Non-Af 70, BUN/Creatinine Ratio 21.8 H, Glucose 83, Calcium 8.6, Phosphorus 3.5, Total Bilirubin < 0.15, AST 26, ALT 13, Alkaline Phosphatase 80, Total Protein 6.0, Albumin 3.0 L, Globulin 3.0, Albumin/Globulin Ratio 1.0 06/13/24 05:07: WBC 8.5, RBC 2.77 L, Hgb 8.8 L, Hct 28.6 L, MCV 103.2 H, MCH 31.8, MCHC 30.8 L, RDW Std Deviation 69.2 H, RDW Coeff of Ayesha 18.6 H, Plt Count 279, MPV 10.1, Immature Gran % (Auto) 0.500, Neut % (Auto) 79.3 H, Lymph % (Auto) 7.6 L, [facility] % (Auto) 10.5 H, Eos % (Auto) 1.6, Baso % (Auto) 0.5, Absolute Neuts (auto) 6.7, Absolute Lymphs (auto) 0.65 L, Nucleated RBC % 0.2, Hypochromasia 1+, Anisocytosis RARE, PT 14.6, INR 1.1, APTT 31.5, Sodium 150 H, Potassium 3.1 L, Chloride Direct 113 H, Carbon Dioxide 23.7, Anion Gap 14, BUN 16, Creatinine 1.1, Estim Creat Clear Calc 44.30, Est GFR (MDRD) Non-Af 68, BUN/Creatinine Ratio 15.4, Glucose 154 H, Calcium 9.0, Total Bilirubin 0.16, Direct Bilirubin 0.08, AST 27, ALT 11, Alkaline Phosphatase 83, Total Protein 6.1, Albumin 3.0 L, Globulin 3.1 Micro: Microbiology 06/12/24 13:50 Wound - Ankle Wound Culture - Preliminary Gram positive organism Imaging Radiology Impression Ankle X-Ray 06/12/24 16:48 IMPRESSION: Diffuse osseous sclerosis and heterogeneity of the distal right fibula and tibia, likely old traumatic changes with superimposed chronic osteomyelitis. Clinical correlation recommended. Reading Location: [facility] Foot X-Ray 06/12/24 16:48 IMPRESSION: Increased lucency surrounding the 5th metatarsal head without obvious fracture. Diffuse osseous demineralization. Reading Location: [facility] Foot X-Ray 06/12/24 16:48 IMPRESSION: Negative left foot radiographs. Reading Location: [facility]
--- NOTE | 2024-06-13 16:21 | SUR.PREOP ---
called and talked with son, pau- he says pt has a pacemaker and thinks it is a medtronic- he is going to have check paperwork pt sees dr garcia in [place] ([facility] [place]) for pacemaker anesthesia aware
--- NOTE | 2024-06-13 16:22 | PCM.PN.BLA ---
Progress Note Patient is for colonoscopy today. Physical Exam Const alert, oriented x3, no apparent distress and healthy appearing General Appearance: cooperative GI normal to inspection, nondistended, normoactive bowel sounds, soft to palpation, non-tender and non-distended Percussion: normal to percussion Rectal Exam: deferred Assessment & Plan Assessment/Plan (1) LGI bleed: (2) BRBPR (bright red blood per rectum): (3) Adverse drug reaction: QUALIFIERS: Encounter type: initial encounter Qualified Code(s): T50.905A - Adverse effect of unspecified drugs, medicaments and biological substances, initial encounter (4) Acute cystitis without hematuria: (5) Peripheral arterial occlusive disease: (6) Foot ulcer, right: QUALIFIERS: Non-pressure ulcer stage: with fat layer exposed Qualified Code(s): L97.512 - Non-pressure chronic ulcer of other part of right foot with fat layer exposed (7) Dementia: QUALIFIERS: Dementia type: unspecified type Dementia severity: unspecified severity Dementia behavioral or psychological symptom: without behavioral, psychotic, or mood disturbance or anxiety Qualified Code(s): F03.90 - Unspecified dementia, unspecified severity, without behavioral disturbance, psychotic disturbance, mood disturbance, and anxiety PLAN: Plan LGIB with BRBPR; 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 He was explained alternatives, risk and benefits include not withstanding bleeding, infection, sepsis, perforation, need for emergent urgent . He will have an ASA of 3.
--- NOTE | 2024-06-13 16:29 | PCM.PRE.AN2 ---
ASA Classification* ASA Classification ASA Classification: 3 Assessment & Plan Anesthesia* Anesthesia Assessment Anesthesia Assessment: Discussed sedation and/or anesthesia options, risks, benefits, and alternatives with patient/parents/legal guardian/POA. Questions invited. The patient/parents/legal guardian/POA seems to understand and agrees to proceed with anesthesia plan. Reviewed the physical assessment, medical history, allergy history and patient home medications list prior to surgery/procedure/anesthetic and documented any changes. Performed airway and anesthesia risk assessments. Anesthesia Type Anesthesia Type: MAC History Source History Obtained from:: Patient and Chart Anesthesia Focused Assessment* Temperature: 98 F Pulse Rate: 60 Blood Pressure: 144/62 Respiratory Rate: 18 Pulse Ox: 98 Oxygen Delivery Method: Room Air Oxygen Flow Rate (L/min): 3 Airway Assessment Mouth opens: 2 cm Mallampati Score: I Teeth Condition: Chipped/Broken (Multiple chipped teeth.) Neck Range of motion (ROM): Limited ROM (Slight decrease in extension) Focused Labs Anesthesia Preop lab: CBC WBC 8.5 K/mm3 (4.4-11.0) 06/13/24 05:07 06/13/24 RBC 2.77 M/mm3 (4.6-6.2) L 06/13/24 05:07 06/13/24 Hgb 8.8 g/dL (13.0-16.5) L 06/13/24 05:07 06/13/24 Hct 28.6 % (40-54) L 06/13/24 05:07 06/13/24 Plt Count 279 K/mm3 (150-450) 06/13/24 05:07 06/13/24 CHEMISTRY Potassium 3.1 mmol/L (3.3-5.1) L 06/13/24 05:07 06/13/24 Sodium 150 mmol/L (133-145) H 06/13/24 05:07 06/13/24 Magnesium 1.9 mg/dL (1.5-2.2) 06/11/24 23:50 06/11/24 Phosphorus 3.5 mg/dL (2.7-4.5) 06/12/24 05:33 06/12/24 BUN 16 mg/dL (4-19) 06/13/24 05:07 06/13/24 Creatinine 1.1 mg/dL (0.8-1.3) 06/13/24 05:07 06/13/24 Glucose 154 mg/dL (70-99) H 06/13/24 05:07 06/13/24 POC Glucose 84 mg/dL (74-106) 07/05/22 10:45 07/05/22 TSH 0.847 uIU/mL (0.300-4.200) 06/11/24 23:50 06/11/24 COAG PT 14.6 SECONDS (11.7-14.9) 06/13/24 05:07 06/13/24 Pre-Assessment Diagnosis/Proposed Procedure Planned Operative Procedure(s): Colonoscopy with possible biopsy and/or polypectomy. 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 When Was Last Pacemaker Check QUESTION #4 FULL TEXT: You/Your Family Experience fever (hyperthermia) with Anesthesia Last Oral Intake Last Oral intake: Last Oral Intake NPO since 00:00 06/13/24 08:00 Meds taken in AM with sips of No 06/13/24 08:00 water? Meds patient instructed to take am of surgery PONV PONV - dry starch operator: PONV - dry starch operator Female HX of Motion Sickness HX of N/V After Surgery Non-Smoker Duration of Surgery greater than 60 minutes Number of Risk Factors PONV Score Height & Weight Height & Weight: Anesthesia: Height & Weight Height 5 ft 10 in 06/13/24 08:00 Weight: 68.8 kg 06/13/24 08:00 Body Mass Index (BMI) 21.7 06/13/24 08:00 Respiratory Assessment Respiratory Assessment - dry starch operator: Respiratory Tract Infection Hx - dry starch operator Hx Respiratory Tract Infection No 06/13/24 08:00 STOP Sleep Apnea STOP Sleep Apnea - dry starch operator: STOP Sleep Apnea - dry starch operator Hx Hypertension Yes 06/12/24 12:05 Hx Sleep Apnea Yes 06/12/24 02:10 CPAP No: used to wear 06/12/24 02:10 BIPAP No 06/12/24 02:10 Do you snore loudly (louder than talking or can be heard Do you often feel tired/ fatigued/ sleepy during daytime? Has anyone observed you stop breathing during sleep? STOP Results Positive 06/12/24 02:10 QUESTION #5 FULL TEXT : Do you snore loudly (louder than talking or can be heard through closed doors)? 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 Specify any problems Hx of Preganancy in last 3 N/A 06/12/24 02:10 Months Nurse Filling Out Transfusion RSMAILES 06/12/24 02:10 & Questions: Date: 06/12/24 06/12/24 02:10 Time: 03:06/12/24 02:10 Patient unable to answer at this time (ie. confused, unrespo /Reproduction History /Reproductive History - dry starch operator: /Reproductive Hx- dry starch operator Hx Now Gestational Age (in weeks): EDC: Hx Hx Para Hx Section SAB Active Medications Active Medications: Current Medications Generic Name Dose Route Start Last Admin Trade Name Freq PRN Reason Stop Dose Admin Acetaminophen 1,000 mg 06/12/24 17:58 Acetaminophen 500 Mg Tablet PO Q6H PRN PRN Pain 1-10 or Fever Hydralazine HCl 5 mg 06/12/24 02:18 06/12/24 17:33 Hydralazine 20 Mg/Ml Vial IV 5 mg Q6H PRN PRN Administration SBP GREATER THAN 160 Protocol Ceftriaxone Sodium 1 gm in 50 mls @ 100 mls/hr 06/12/24 22:00 06/12/24 23:19 Rocephin IV Infused Q24H LYNDSAY Infusion Pantoprazole Sodium 40 mg/ 110 mls @ 330 mls/hr 06/12/24 10:00 06/13/24 10:23 Sodium Chloride IV Infused DAILY LYNDSAY Infusion Vancomycin IV-PHARMACY TO DOSE 500 mls @ 250 mls/hr 06/12/24 04:23 1 each/ Sodium Chloride IV X1 PRN Rx to Dose Protocol Vancomycin HCl 500 mg in 100 mls @ 100 mls/hr 06/12/24 18:00 06/13/24 09:12 IV Infused Q12H LYNDSAY Infusion Sodium Chloride 1,000 mls @ 70 mls/hr 06/13/24 08:30 06/13/24 09:08 IV 06/14/24 13:04 70 mls/hr .[id number] LYNDSAY Administration Protocol Ondansetron HCl 4 mg 06/12/24 02:18 Ondansetron 4 Mg/2 Ml Vial IV Q6H PRN PRN NAUSEA/VOMITING Sodium Chloride 10 - 40 ml 06/12/24 03:22 06/12/24 22:00 0.9% Saline Lock 10 Ml Syringe IV 10 ml UD PRN Administration SALINE FLUSH Vancomycin Protocol 1 lab 06/13/24 15:30 Vancomycin Trough/Random Due MC 06/13/24 19:30 DAILY LYNDSAY PFSH Medical History Large bowel bleed Non-smoker Atrial fibrillation Diabetes Hallucinations Dementia Gait disorder Cancer Sleep apnea Chest pain Hypertension Carpal tunnel syndrome on both sides History of non-ST elevation myocardial infarction (NSTEMI) (07/02/19) UTI (urinary tract infection) Atrial fibrillation with RVR (05/28/20) Acute diarrheal illness Acute kidney injury Pneumonia due to COVID-19 virus (03/23/20) Septic shock PAD (peripheral artery disease) Delayed wound healing Debility Nonhealing ulcer of left lower extremity with fat layer exposed Non-healing ulcer of right foot with fat layer exposed Neuropathy Rectal prolapse Right bundle branch block (RBBB) Open wound of finger of left hand Chronic pain of right heel Ulcer of right lower extremity with fat layer exposed Ulcer of right heel Peripheral arterial occlusive disease Urinary incontinence Essential (primary) hypertension Spondylolisthesis Lumbar stenosis Peripheral neuropathy 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 DDD (degenerative disc disease) GERD (gastroesophageal reflux disease) Prostate cancer Obstructive sleep apnea Hyperlipidemia Home Medications ?Medication ?Instructions ?Recorded ?Last Taken ?Type duloxetine 30 mg capsule,delayed 30 mg PO DAILY DEPRESSION 03/06/19 04/25/24 History release atorvastatin 20 mg tablet 20 mg PO QHS CHOLESTEROL #90 tabs 06/10/19 04/24/24 Rx Motorized wheelchair #1 ea 06/29/22 Unknown Rx acetaminophen 500 mg tablet 1,000 mg PO TID LOWER BACK PAIN 06/30/22 04/23/24 History furosemide 40 mg tablet (Lasix) 20 mg PO DAILY FLUID 06/30/22 04/25/24 History mirtazapine 30 mg tablet 15 mg PO QHS DEPRESSION 06/30/22 04/24/24 History potassium chloride 10 mEq 40 meq PO DAILY SUPPLEMENT 06/30/22 04/24/24 History tablet,extended release(part/cryst) isosorbide mononitrate 60 mg 60 mg PO DAILY #30 tabs 04/20/23 04/25/24 Rx tablet,extended release 24 hr memantine 28 mg capsule 28 mg PO DAILY #30 ea 05/16/23 Unknown Rx sprinkle,extended release 24hr lisinopril 5 mg tablet 5 mg PO DAILY 03/08/24 04/24/24 History amiodarone 200 mg tablet 200 mg PO DAILY 04/28/24 04/25/24 History aspirin 81 mg tablet,delayed 81 mg PO DAILY 04/28/24 04/25/24 History release clopidogrel 75 mg tablet 75 mg PO DAILY 04/28/24 Unknown History fluorometholone 0.1 % eye 1 drp ophthalmic (eye) Q12H 04/28/24 04/25/24 History drops,suspension metoprolol tartrate 100 mg tablet 150 mg PO Q12H 04/28/24 04/25/24 History pantoprazole 40 mg tablet,delayed 40 mg PO DAILY 04/28/24 Unknown History release Allergy/AdvReac Type Severity Reaction Status Date / Time latex Allergy Unknown unknown Verified 06/11/24 20:29 carisoprodol Allergy Other Verified 06/11/24 20:29 itraconazole Allergy Other Verified 06/11/24 20:29 COVID-19 (SARS-CoV-2) AdvReac Other Verified 06/11/24 20:29 vaccine, jeanie Family History Mother CVA (cerebral vascular accident) Sister Hypertension Surgical History History of coronary artery stent placement History of left heart catheterization (07/02/19) History of angioplasty of peripheral vessel (10/23/13) History of coronary artery stent placement (10/07/15) History of back surgery History of shoulder surgery History of hernia repair History of tonsillectomy History of prostatectomy Social History housing: [facility] Smoking Status: Never smoker alcohol intake: never substance use type: does not use caffeine: Yes Type: tea what type of physical activity do you participate in: none seatbelt use: always do you feel safe at home: Yes Review of Systems (Anesthesia) ROS Narrative System reviewed and no additional complaints, except as documented.
--- NOTE | 2024-06-13 17:45 | COLBX_PTH ---
PATIENT: FEI OLEARY LOC: [facility] U#:[id number] AGE/SX: 88/M ROOM: [facility] RE06/12/[address]: Dr. Miok Dennis DO : 1935 BED: 1 DIS: 06/20/2024 SPEC #: [id number] RECD: 06/14/24 08:50 STATUS: BRENNA REMariano #: [id number] HIRAL: 06/13/24 17:[address]: Yane Callahan DEPT: SURGICAL PATHOLOGY RECD BY: Dixie Corley ENTERED: 06/14/24 10:51 SP TYPE: COLON BX OTHR DR: DO Dr. Dennys Mcdonald MD Dr. Eric Turney, MD Dr. Jeffrey Wunning, DPM Dr. Russ Ball MD Tissues: COLON BIOPSY Procedures: Surgery Specimen Level IV HEADER OPERATION: Colonoscopy PRE-OP DIAGNOSIS: LGI, bright red blood per rectum TISSUE SUBMITTED: Hepatic flexure polyp and biopsy MICROSCOPIC DIAGNOSIS Colon, hepatic flexure, biopsy: * Tubular adenoma, multiple fragments. MICROSCOPIC DESCRIPTION Slides are reviewed. GROSS DESCRIPTION Received in fixative is one container labeled with the patient's name and designated Hepatic flexure polyp and biopsy. The specimen consists of multiple irregular fragments of light galvan soft tissue that in aggregate measure 2.2 x 1.5 x 0.3 cm. The specimen is totally submitted in one cassette. MS/mr 06/14/2024 TC: CPT:26669
--- NOTE | 2024-06-13 18:56 | PCM.POST.ANE ---
Anesthesia: Postop Eval I Current Vital Signs Temperature: 99.4 F Pulse Rate: 60 Blood Pressure: 117/51 Respiratory Rate: 16 Pulse Ox: 99 Oxygen Delivery Method: Nasal Cannula Oxygen Flow Rate (L/min): 3 Assessment Airway patent: Yes Spontaneous unlabored respirations: Yes Mental status: Asleep nausea: No Vomiting: No Anesthesia Complication: No Fluid Hydration Crystalloid volume administer (ml): 0 Total IV fluid infused: 0 Progress Note Anesthesia document: Postop Eval 1 completed: Yes
--- NOTE | 2024-06-13 19:02 | OP.CCLET_ITS ---
06/13/2024 Dennys Manley MD [address] [place] [address] [place] [address] Re : Colonoscopy procedure for Joaquin Chandler Dear Dr. Manley This procedure was performed on May. My impressions and recommendations are as follows: Impressions : - Diverticulosis in the entire examined colon. - Rectal prolapse. - One 7 mm polyp at the hepatic flexure, removed with a jumbo cold forceps. Resected and retrieved. - Two 1 to 2 mm polyps in the ascending colon, removed with a hot snare. Resected and retrieved. - Three bleeding colonic angiodysplastic lesions. Treated with a heater probe. Recommendations : - Resume regular diet today. - Continue present medications. - Await pathology results. - Repeat colonoscopy in 1 year for surveillance. My findings are described in the full procedure note, which is enclosed. If I can be of further assistance, please feel free to contact me at . Sincerely, José Antonio Smith, 06/13/2024 7:01:43 PM This report has been signed electronically.
--- NOTE | 2024-06-13 19:02 | OP.COLON_ITS ---
Patient Name: Joaquin Chandler Procedure Date: 06/13/2024 6:10 PM Date of : 1935 Age: 88 Procedure: Colonoscopy Indications: Hematochezia Providers: José Antonio Smith DO Medicines: Monitored Anesthesia Care Patient Profile: This is an 88 year old male. Refer to note in patient chart for documentation of history and physical. Last Colonoscopy: within the past 3 years. Complications: No immediate complications. Procedure: Pre-Anesthesia Assessment: - Prior to the procedure, a History and Physical was performed, and patient medications and allergies were reviewed. The patient is competent. The risks and benefits of the procedure and the sedation options and risks were discussed with the patient. All questions were answered and informed consent was obtained. Patient identification and proposed procedure were verified by the physician. Mental Status Examination: normal. Airway Examination: normal oropharyngeal airway and neck mobility. Respiratory Examination: clear to auscultation. CV Examination: normal. ASA Grade Assessment: II - A patient with mild systemic disease. After reviewing the risks and benefits, the patient was deemed in satisfactory condition to undergo the procedure. The anesthesia plan was to use monitored anesthesia care (MAC). Immediately prior to administration of medications, the patient was re-assessed for adequacy to receive sedatives. The heart rate, respiratory rate, oxygen saturations, blood pressure, adequacy of pulmonary ventilation, and response to care were monitored throughout the procedure. The physical status of the patient was re-assessed after the procedure. After I obtained informed consent, the scope was passed under direct vision. Throughout the procedure, the patient's blood pressure, pulse, and oxygen saturations were monitored continuously. The Colonoscope was introduced through the anus and advanced to the terminal ileum. The colonoscopy was performed without difficulty. The patient tolerated the procedure well. The quality of the bowel preparation was adequate. The ileocecal valve, appendiceal orifice, and rectum were photographed. Scope In: 6:26:39 PM Scope Withdrawal Time 0 hours 9 minutes 1 second Scope Out: 6:48:17 PM Total Procedure Duration Time 0 hours 21 minutes 38 seconds Findings: The perianal and digital rectal examinations were normal. Multiple small and large-mouthed diverticula were found in the entire colon. Moderate rectal prolapse was present. A 7 mm polyp was found in the hepatic flexure. The polyp was sessile. The polyp was removed with a jumbo cold forceps. Resection and retrieval were complete. Verification of patient identification for the specimen was done. Estimated blood loss was minimal. Two sessile polyps were found in the ascending colon. The polyps were 1 to 2 mm in size. These polyps were removed with a hot snare. Resection and retrieval were complete. Verification of patient identification for the specimen was done. Estimated blood loss was minimal. Three medium-sized localized angiodysplastic lesions with bleeding were found in the rectum, at the hepatic flexure and in the cecum. Coagulation for hemostasis using heater probe was successful. Estimated blood loss was minimal. Impression: - Diverticulosis in the entire examined colon. - Rectal prolapse. - One 7 mm polyp at the hepatic flexure, removed with a jumbo cold forceps. Resected and retrieved. - Two 1 to 2 mm polyps in the ascending colon, removed with a hot snare. Resected and retrieved. - Three bleeding colonic angiodysplastic lesions. Treated with a heater probe. Recommendation: - Resume regular diet today. - Continue present medications. - Await pathology results. - Repeat colonoscopy in 1 year for surveillance. Procedure Code(s): --- Professional --- 79322, 59, Colonoscopy, flexible; with control of bleeding, any method 42470, Colonoscopy, flexible; with removal of tumor(s), polyp(s), or other lesion(s) by snare technique 80633, 59, Colonoscopy, flexible; with biopsy, single or multiple CPT copyright 2021 [employer]. All rights reserved. The codes documented in this report are preliminary and upon cath lab nurse review may be revised to meet current compliance requirements. José Antonio Smith DO 06/13/2024 7:01:43 PM This report has been signed electronically. Number of Addenda: 0 Note Initiated On: 06/13/2024 6:10 PM
[2024-06-13] MEDS: Ceftriaxone 1 GM/50 ML BAG IV (20:40)
[2024-06-13 20:48] LABS: Vancomycin, Trough Level 19.7 ug/mL (5.0-15.0)
--- NOTE | 2024-06-13 20:55 | PCM.RX.CS ---
Consult Antibiotic Management Pharmacy has been consulted to manage selected antibiotic: Vancomycin Type of Intervention Type of Consult: Follow-up Suspected Infection Suspected Infection: Osteomyelitis Prior Doses of Antibiotics Prior Doses of Antibiotics Received/Current Regimen: Vancomycin 500 mg Q12H last dose given 06/13/24 @ 0555 Labs Labs: Sodium 150 mmol/L (133-145) H 06/13/24 05:07 Potassium 3.1 mmol/L (3.3-5.1) L 06/13/24 05:07 Carbon Dioxide 23.7 mmol/L (22.0-29.0) 06/13/24 05:07 Anion Gap 14 (5-15) 06/13/24 05:07 BUN 16 mg/dL (4-19) 06/13/24 05:07 Creatinine 1.1 mg/dL (0.8-1.3) 06/13/24 05:07 Est GFR (MDRD) Non-Af 68 (>60) 06/13/24 05:07 BUN/Creatinine Ratio 15.4 RATIO (10-20) 06/13/24 05:07 Glucose 154 mg/dL (70-99) H 06/13/24 05:07 Vancomycin Trough 19.7 ug/mL (5.0-15.0) H 06/13/24 20:11 Microbiology Microbiology: Microbiology 06/12/24 13:50 Wound - Ankle Gram Stain - Final 06/12/24 13:50 Wound - Ankle Wound Culture - Preliminary Gram positive organism 06/11/24 22:10 Urine, Clean Catch Urine Culture - Preliminary Gram negative phoebe 06/11/24 21:30 Stool Stool Occult Blood (MERRICK) - Final Occult Blood Positive Dosing Weight Weight used for dosin kg Estimated Creatinine Clearance Estimated Creatinine Clearance: ~ 44 Goal Trough Goal Trough: 15-20 mcg/mL Pharmacy Plan for Drug Dosing Pharmacy Plan for Drug Dosing: Vancomycin trough drawn 14.25 hours after last dose = 19.7, reduce to 1000 mg Q24H Pharmacy Service will continue to monitor and adjust dosing as required. Follow-Up Labs Follow-Up Labs: Trough: Vancomycin Date/Time Labs Ordered Labs to be done on [date and time ordered]: 06/15/24 @ 2030
[2024-06-13] MEDS: Vancomycin IV 1,000 MG/200 ML BAG 200 MG IV (21:32)
[2024-06-13] MEDS: Potassium Chloride Oral Tablet 20 MEQ 60 MEQ PO (21:34)
--- NOTE | 2024-06-13 21:48 | PCM.POSTANE2 ---
Anesthesia Postop Eval I Sum Postop Eval Completion status Anesthesia document: Postop Eval 1 completed: Yes Anesthesia Postop Eval I Summary Anesthesia Postop Eval I Summary: Anesthesia Postop Eval I: Assessment Summary Airway patent Yes 06/13/24 18:59 Spontaneous unlabored Yes 06/13/24 18:59 respirations Mental status Asleep 06/13/24 18:59 nausea No 06/13/24 18:59 Vomiting No 06/13/24 18:59 Anesthesia Postop Eval I: Fluid Summary Crystalloid volume administer 0 06/13/24 18:59 (ml) Colloids volume administered ( ml) Blood Product volume administered (ml) Total IV fluid infused 0 06/13/24 18:59 Anesthesia Postop Eval I: Summary Notes Anesthesia Complication No 06/13/24 18:59 Anesthesia Complication Comment: Post-operative progress note Anesthesia: Postop Eval II Evaluation Mental status: Awake and Calm Pain Level: 0 nausea: No Vomiting: No Complications Anesthesia Complication: No
[2024-06-13 23:28] LABS: Hemoglobin A1c 5.6 % (<=5.6)
[2024-06-14] VITALS (10 sets, daily range): BP systolic 118–159; BP diastolic 57–76; PULSE 61–70; RESP 10–26; TEMP 36.6–37.1; O2SAT 4–100; BMI 21.7
--- NOTE | 2024-06-14 05:25 | NURSING ---
lab in the room to draw am labs and had difficulty getting the pt to respond. staff came in and tried to wake pt with no response. blood sugar completed and was 89. pt continue to not open eyes and not verbally respond . vs taken and were as follows: bp 159/73, ap 68, temp was 98.2 resp 18, spo2 was 87%, 02 was increased to 3l/m and sp02 was increased to 94%, then dropped to 45% and then he increased back up to the 90's. hospitalist called and received new order for ABGs. hospitalist to briefly to see pt. 0540 respiratory here to draw ABGS, 02 increased to 4l/m
[2024-06-14 05:28] LABS: Bedside Glucose 84 mg/dL (74-106)
[2024-06-14 05:29] LABS: Absolute Lymphocyte Count 0.58 X10^3/uL (0.83-4.51); Absolute Neutrophil Count 6.4 X10^3/uL (2.0-7.7); Basophil# 0.03 X10^3/uL; Basophil% 0.4 % (0-1); Eosinophil# 0.16 X10^3/uL; Hematocrit 28.2 % (40-54); Hemoglobin 8.6 g/dL (13.0-16.5); Lymphocyte # 0.58 X10^3/ul (0.83-4.51); Lymphocyte % 7.1 % (19-41); Mean Corp Hgb Conc 30.5 g/dL (32-36); Mean Corpuscular Volume 104.8 fL (80-94); Mean Platelet Vol. 9.6 fl (6.2-12.0); Monocyte# 1.02 X10^3/uL; Monocyte% 12.5 % (0-10); NRBC Flagged by Analyzer 0.4 % (0-5); Neutrophil # 6.35 X10^3/uL (2.7-7.7); Neutrophil % 77.4 % (47-70); POSITIVE DIFFERENTIAL YES; POSITIVE MORPHOLOGY YES; Platelet Count 252 K/mm3 (150-450); RBC Distribution Width CV 18.7 % (11.6-14.6); RBC Distribution Width SD 71.4 fl (35.1-43.9); Red Blood Count 2.69 M/mm3 (4.6-6.2); White Blood Count 8.2 K/mm3 (4.4-11.0)
[2024-06-14 05:40] LABS: Differential Indicated SCAN CRITERIA MET
[2024-06-14 05:55] LABS: Allen Test Positive; Base Excess 3 mmol/L (-2 to +2); Bicarbonate 29.5 mmol/L (22-26); Blood Gas Specimen Type ART; Mode Not entered; O2 Delivery Device Cannula; PO2 39 mmHG (75-100); SITE L Radial; SO2 67 % (95-99); Total Carbon Dioxide 31 mmol/L; pCO2 60.1 mmHg (35-45)
[2024-06-14 05:57] LABS: ALB/GLOB Ratio 0.9 RATIO (0.9-2.4); AST(SGOT) 28 U/L (<=37); Alanine Aminotransfer ALT/SGPT 10 U/L (<=46); Albumin, Serum 2.9 g/dL (3.4-4.8); Alkaline Phosphatase 88 U/L (40-129); Anion Gap 10 (5-15); BUN 12 mg/dL (4-19); BUN/Creat Ratio 12.2 RATIO (10-20); Calcium 8.6 mg/dL (7.6-11.0); Carbon Dioxide 23.8 mmol/L (22.0-29.0); Chloride 113 mmol/L (96-108); Creatinine, Serum 0.95 mg/dL (0.70-1.20); EST Glomerular Filtration Rate 76 (>60); Estimated Creatinine Clearance 51.37 ml/min; Globulin 3.1 g/dL (2.2-4.2); Glucose 90 mg/dL (70-99); Phosphorus 3.2 mg/dL (2.7-4.5); Potassium 3.7 mmol/L (3.3-5.1); Protein, Total 5.9 g/dL (5.9-8.4); Sodium Level 146 mmol/L (133-145); Total Bilirubin 0.25 mg/dL (0.00-1.30)
--- NOTE | 2024-06-14 06:08 | PN.HOSP_ITS ---
Hospitalist Note I was texted by the STERILISATION TECHNICIAN at approximately 5:30 AM and informed patient was having difficulty arousing even to painful stimuli. He had received no recent sedating medications but he did undergo colonoscopy within the last 24 hours. Patient then underwent ABG with results noted below. RT noted patient was still somnolent even when ABG was obtained, though he was still arousable. Will follow RT recommendations start BiPAP and recheck ABG in 1 hour to follow trend. We will minimize sedating medications with patient suspected to have lingering effects from recent twilight anesthesia from recent colonoscopy. Chest x-ray also pending at this time. RUN DATE: 06/14/24 [facility] [place], DEPARTMENT OF LABORATORIES PAGE 1 RUN TIME: 609 Specimen Inquiry [id number], [place], [address] PATIENT: FEI [facility]LEARY LOC: [facility] U #: [id number] : 1935 AGE/SX: 88/M FACILITY: [facility] ROOM: [facility] RE06/12/[address]: Dr. Yane Callahan, DO STATUS:ADM IN ED: 1 DIS: ~ SPEC #: [id number] HIRAL: 06/14/24 STATUS: COMP REQ #: [id number] RECD: 06/14/[address]: Dr. Yane Callahan, DO ENTERED: 06/14/[address]: Dr. Remy Macias, DO MD Dr. Mark Harrington MD Dr. Jeffrey Wunning DPM Dr. Russ Ball MD ~ Test Result Flag Reference Range IBG Blood Gas Type ART SITE L Radial LETITIA TEST Positive Mode Not entered O2 Delivery Dev Cannula FI02 3.0 Time Given 05:52:[address] Macias Read Back By Yes pH 7.30 L 7.35-7.45 pCO2 60.1 H 35-45 mmHg PO2 39 *L 75-100 mmHG HCO3 29.5 H 22-26 mmol/L BE 3 H -2 to +2 mmol/L TOTAL CO2 31 mmol/L SO2 67 L 95-99 %
--- NOTE | 2024-06-14 06:12 | RAD_ITS ---
PROCEDURE: CHEST 1 VIEW (PORTABLE) REASON FOR EXAM: Hypersomnolence and hypoxia. Evaluate for pneumonia. TECHNIQUE: Frontal view of the chest. COMPARISON: Chest x-ray dated 03/08/2024. FINDINGS: There is diffuse pulmonary vascular congestion and bilateral pleural effusions. These findings are new since prior examination. The cardiac silhouette is normal in size. Dense coronary artery calcifications also present. There is no pneumothorax. Pacemaker is seen overlying the left chest, new since prior examination. Postsurgical changes again seen within the left shoulder. No acute osseous abnormalities are present. RAD/Chest 1 View (Portable) IMPRESSION: Findings are most consistent with interval development of significant pulmonary edema/CHF with bilateral pleural effusion. Follow-up until resolution is recommended. Underlying pneumonia to be ruled out clinically. Reading Location: [id number]
--- NOTE | 2024-06-14 07:42 | NURSING ---
This nurse spoke with Dtr and update given on change of condition in pt. Dgrober López thanked nurse for call.
[2024-06-14] MEDS: Furosemide 40 MG/4 ML Vial IV ×2 (08:35→18:27)
[2024-06-14 09:12] LABS: Anisocytosis 1+
[2024-06-14 09:20] LABS: Allen Test Positive; Base Excess 0 mmol/L (-2 to +2); Bicarbonate 25.3 mmol/L (22-26); Blood Gas Specimen Type ART; Mode Not entered; O2 Delivery Device BiPAP; PO2 91 mmHG (75-100); SITE L Radial; SO2 97 % (95-99); Total Carbon Dioxide 27 mmol/L; pCO2 44.3 mmHg (35-45); pH 7.36 (7.35-7.45)
[2024-06-14 10:12] LABS: Pro- Brain NATRIURETIC PEPTIDE 13516 pg/mL (<=1800)
--- NOTE | 2024-06-14 11:33 | PCM.PROGNOTE ---
Subjective Subjective Patient was seen this morning for follow up on right ankle ulceration and also toes as well. He is in bed using biPAP. Patient is very lethargic. Objective Data Objective Data Vital Signs: Vital Signs Temp Pulse Resp BP Pulse Ox O2 Del Method O2 Flow Rate 98.0 F 68 20 H 155/76 H 99 Bi-pap 2 06/14/24 08:00 06/14/24 08:00 06/14/24 08:00 06/14/24 08:00 06/14/24 08:00 06/14/24 08:17 06/14/24 03:59 FiO2 30 06/14/24 08:17 Oxygen Flow Rate (L/min) 2 Oxygen Delivery Method Bi-pap Weight: 68.9 kg Body Mass Index (BMI) 21.7 Intake & Output: Intake and Output for Last 24 Hours 06/12/24 06/13/24 06/14/24 23:59 23:59 23:59 Intake Total 3085 / 3965 2840.17 / 2940.17 279.83 / 279.83 Output Total 700 / 700 Balance 2385 / 3265 2840.17 / 2940.17 279.83 / 279.83 Lab / Micro Data 06/14/24 05:12 06/14/24 05:12 Labs: Laboratory Results - last 24 hr 06/12/24 05:33: Hemoglobin A1c Cancelled 06/13/24 05:07: Hemoglobin A1c 5.6 L 06/13/24 20:11: Vancomycin Trough 19.7 H 06/14/24 05:08: POC Glucose 84 06/14/24 05:12: WBC 8.2, RBC 2.69 L, Hgb 8.6 L, Hct 28.2 L, MCV 104.8 H, MCH 32.0, MCHC 30.5 L, RDW Std Deviation 71.4 H, RDW Coeff of Ayesha 18.7 H, Plt Count 252, MPV 9.6, Immature Gran % (Auto) 0.600, Neut % (Auto) 77.4 H, Lymph % (Auto) 7.1 L, [place] % (Auto) 12.5 H, Eos % (Auto) 2.0, Baso % (Auto) 0.4, Absolute Neuts (auto) 6.4, Absolute Lymphs (auto) 0.58 L, Nucleated RBC % 0.4, Differential Comment COMMENT, Anisocytosis 1+, Sodium 146 H, Potassium 3.7, Chloride Direct 113 H, Carbon Dioxide 23.8, Anion Gap 10, BUN 12, Creatinine 0.95, Estim Creat Clear Calc 51.37, Est GFR (MDRD) Non-Af 76, BUN/Creatinine Ratio 12.2, Glucose 90, Calcium 8.6, Phosphorus 3.2, Magnesium 2.0, Total Bilirubin 0.25, AST 28, ALT 10, Alkaline Phosphatase 88, [place] [address] H, Total Protein 5.9, Albumin 2.9 L, Globulin 3.1, Albumin/Globulin Ratio 0.9 Micro: Microbiology 06/12/24 13:50 Wound - Ankle Gram Stain - Final 06/12/24 13:50 Wound - Ankle Wound Culture - Preliminary Staphylococcus aureus 06/11/24 22:10 Urine, Clean Catch Urine Culture - Final Proteus mirabilis 06/11/24 21:30 Stool Stool Occult Blood (MERRICK) - Final Occult Blood Positive ABG Data ABG results: ABG 06/14/24 06/14/24 05:50 09:15 Specimen Type ART ART Sample Site L Radial L Radial pH 7.30 L 7.36 Bicarbonate Actual 29.5 H 25.3 Total CO2 31 27 Base Excess 3 H 0 O2 Saturation 67 L 97 O2 % 3.0 30.0 ABG pCO2 60.1 H 44.3 ABG pO2 39 L* 91 Dennis Test Positive Positive O2 Delivery Device Cannula BiPAP Vent Mode Not entered Not entered Crit Call To/Read Back Yes Blood Gas Notified Whom Dr. Angel Blood Gas Notified Time 05:52:22 Radiography Diagnostic Testing: Radiology Impression Chest X-Ray 06/14/24 06:12 IMPRESSION: Findings are most consistent with interval development of significant pulmonary edema/CHF with bilateral pleural effusion. Follow-up until resolution is recommended. Underlying pneumonia to be ruled out clinically. Reading Location: [id number] Physical Exam Const Constitutional Narrative: There is a wound to the lateral ankle overlying the lateral malleolus with fibrotic boggy base, there is surrounding erythema and there is serous drainage, probes close to bone - ulcer and erythema do appear some improved today, there are dry eschars to toes bilateral - stable and chronic, there is no visible abscess bilateral. No evidence of acute ischemia bilateral foot or ankle and findings continue to appear chronic bilateral. Peripheral neuropathy is noted as there is decreased sensation bilateral foot and ankle. Legs are externally rotated when resting bilateral with pressure on heels and lateral ankle bilateral. He does have pillows and foam foot/ankle boots to pad and offloading heels and ankles. Assessment & Plan Assessment/Plan (1) Non-pressure chronic ulcer of right ankle with necrosis of muscle: (2) Other specified peripheral vascular diseases: (3) Gangrene, not elsewhere classified: (4) Osteomyelitis of ankle, right, acute: PLAN: Plan Evaluation performed. A culture has been obtained right ankle ulceration - growing staph. Also right ankle xrays with findings c/w chronic osteomyelitis. Consider OR ulcer debridement with bone biopsy but given patient's current medical status this this is not recommended at this time and would be very high risk. Ulceration and signs of infection are improved today - patient is on antibiotics Ceftriaxone and Vancoymcin. Infectious Disease is on consult. Patient also with lower extremity peripheral vascular disease - consult placed to vascular surgery service who is following patient as well. Toes are stable today. Wound care - betadine soln to right ankle ulceration and gauze dressing changes daily. Keep offloaded at all times. Podiatry will continue to follow.
[2024-06-14] MEDS: Pantoprazole Sodium 40 MG in 0.9% Normal Saline (100mL MB+) 100 ML 330 MG IV (12:47)
--- NOTE | 2024-06-14 13:47 | CASEMGMT ---
JAZZY notified that pt may return over the weekend. Green sheet and transport form placed in chart. Love Patricio DC Planning Asst.
--- NOTE | 2024-06-14 13:57 | PCM.PN.ID ---
Physical Exam Narrative Lethargic today, no fever. Const Orientation / Consciousness: lethargic Resp normal air movement and clear to auscultation bilaterally Cardio regular rate and regular rhythm GI soft to palpation, non-tender and non-distended Skin Skin Narrative: no new rash ID ID: Route of nutrition/ use of supplements: [] Nutritional Intake: [] IV Site: [] Diana Catheter: [] Assessment & Plan Assessment/Plan (1) Osteomyelitis of ankle, right, acute: PLAN: Suspected osteo. Options would be I&D vs bone scan to make the diagnosis. Wound cx with staph aureus. Ucx with proteus. Has prior h/o MSSA 02/2024. Cont vanc/ceftriaxone for now. Will follow, thank you (2) Other specified peripheral vascular diseases:
--- NOTE | 2024-06-14 13:58 | CHAPLAIN ---
Type of Pastoral Visit _x__ Initial Visit ___ Follow-up Visit ___ On-call Visit ___ General Patient Visit ___ Spiritual Assessment ___ Family Conference ___ Bereavement ___ Rapid Response ___ Code Blue ___ Other (describe below) Pastoral Care Referral From ___ Patient _x__ Family ___ Nurse ___ Physician ___ Makeup Editor ___ Service Center Manager ___ Other (describe below) Sacrament/Intervention ___ Active listening ___ Anointing ___ Yazidism ___ Bereavement ___ Communion ___ Geraldine exploration ___ ___ Life review ___ Prayer ___ Reconciliation ___ Sacrament of Sick _x__ Supportive presence ___ Wedding ___ Other (describe below) Pastoral Comments patient is on the bi-pap machine and sleeping; family members are in the room; one family member speaks up about the patient doing fine and he is going to be just fine and pull through this; family members decline further need or offer of support
--- NOTE | 2024-06-14 18:03 | CT_ITS ---
EXAM: BRAIN/HEAD WITHOUT CONTRAST CLINICAL HISTORY: 88-year-old male, altered mental status, history of dementia. COMPARISON: CT head 03/08/2024. TECHNIQUE: Routine CT imaging of the head without IV contrast. Additional multiplanar reformats were obtained. Dose reduction techniques were used including intermediate exposure control (AEC),iterative reconstruction technique, and/or mA and/or KV dose adjustments based on patient's size. FINDINGS: Moderate generalized cerebral and cerebellar volume loss with concordant prominence of the ventricles and subarachnoid spaces. Moderate patchy supratentorial white matter hypodensities. The blas-white matter interfaces are otherwise maintained. No acute intracranial hemorrhage or herniation. The basal cisterns are patent. The orbits, visualized paranasal sinuses and mastoids are unremarkable. No acute calvarial fracture or scalp hematoma. CT/Brain/Head without Contrast IMPRESSION: No acute finding. Stable findings of chronic microvascular ischemic changes an d age-related changes. Reading Location: [id number]
--- NOTE | 2024-06-14 18:04 | PN.HOSP_ITS ---
Reason for Visit Reason for Visit: Bright red blood per rectum Subjective Subjective Patient came somnolent overnight. ABG showed mild respiratory acidosis so he was placed on BiPAP. Chest x-ray was obtained and shows bilateral volume overload. Patient was given IV fluids down in PACU and sedation. Renal function is normal so he should clear fairly easily however he still fairly sleepy. Objective Data Objective Data Vital Signs: Vital Signs Temp Pulse Resp BP Pulse Ox O2 Del Method O2 Flow Rate 98.1 F 64 24 H 118/60 100 Bi-pap 2 06/14/24 14:00 06/14/24 15:32 06/14/24 15:32 06/14/24 14:00 06/14/24 15:32 06/14/24 14:00 06/14/24 03:59 FiO2 40 06/14/24 15:32 Oxygen Flow Rate (L/min) 2 Oxygen Delivery Method Bi-pap Weight: 68.9 kg Body Mass Index (BMI) 21.7 Intake & Output: Intake and Output for Last 24 Hours 06/12/24 06/13/24 06/14/24 23:59 23:59 23:59 Intake Total 3085 / 3965 2840.17 / 2940.17 389.83 / 389.83 Output Total 700 / 700 1300 / 1300 Balance 2385 / 3265 2840.17 / 2940.17 -910.17 / -910.17 Lab / Micro Data 06/14/24 05:12 06/14/24 05:12 Labs: Laboratory Results - last 24 hr 06/12/24 05:33: Hemoglobin A1c Cancelled 06/13/24 05:07: Hemoglobin A1c 5.6 L 06/13/24 20:11: Vancomycin Trough 19.7 H 06/14/24 05:08: POC Glucose 84 06/14/24 05:12: WBC 8.2, RBC 2.69 L, Hgb 8.6 L, Hct 28.2 L, MCV 104.8 H, MCH 32.0, MCHC 30.5 L, RDW Std Deviation 71.4 H, RDW Coeff of Ayesha 18.7 H, Plt Count 252, MPV 9.6, Immature Gran % (Auto) 0.600, Neut % (Auto) 77.4 H, Lymph % (Auto) 7.1 L, [place] % (Auto) 12.5 H, Eos % (Auto) 2.0, Baso % (Auto) 0.4, Absolute Neuts (auto) 6.4, Absolute Lymphs (auto) 0.58 L, Nucleated RBC % 0.4, Differential Comment COMMENT, Anisocytosis 1+, Sodium 146 H, Potassium 3.7, Chloride Direct 113 H, Carbon Dioxide 23.8, Anion Gap 10, BUN 12, Creatinine 0.95, Estim Creat Clear Calc 51.37, Est GFR (MDRD) Non-Af 76, BUN/Creatinine Ratio 12.2, Glucose 90, Calcium 8.6, Phosphorus 3.2, Magnesium 2.0, Total Bilirubin 0.25, AST 28, ALT 10, Alkaline Phosphatase 88, [place] [address] H, Total Protein 5.9, A lbumin 2.9 L, Globulin 3.1, Albumin/Globulin Ratio 0.9 Micro: Microbiology 06/12/24 13:50 Wound - Ankle Gram Stain - Final 06/12/24 13:50 Wound - Ankle Wound Culture - Preliminary Staphylococcus aureus 06/11/24 22:10 Urine, Clean Catch Urine Culture - Final Proteus mirabilis 06/11/24 21:30 Stool Stool Occult Blood (MERRICK) - Final Occult Blood Positive ABG Data ABG results: ABG 06/14/24 06/14/24 05:50 09:15 Specimen Type ART ART Sample Site L Radial L Radial pH 7.30 L 7.36 Bicarbonate Actual 29.5 H 25.3 Total CO2 31 27 Base Excess 3 H 0 O2 Saturation 67 L 97 O2 % 3.0 30.0 ABG pCO2 60.1 H 44.3 ABG pO2 39 L* 91 Dennis Test Positive Positive O2 Delivery Device Cannula BiPAP Vent Mode Not entered Not entered Crit Call To/Read Back Yes Blood Gas Notified Whom Dr. Angel Blood Gas Notified Time 05:52:22 Radiography Diagnostic Testing: Radiology Impression Chest X-Ray 06/14/24 06:12 IMPRESSION: Findings are most consistent with interval development of significant pulmonary edema/CHF with bilateral pleural effusion. Follow-up until resolution is recommended. Underlying pneumonia to be ruled out clinically. Reading Location: [id number] Physical Exam Const no apparent distress; Negative for average body habitus, healthy appearing or well nourished Constitutional Narrative: Elderly, lying in bed on BiPAP, arouses to noxious stimulus but no verbal stimulus General Appearance: cooperative Orientation / Consciousness: lethargic HEENT normocephalic and head/scalp atraumatic Eyes Eyes Narrative: Conjunctiva pallor bilaterally, no scleral icterus Neck supple and No no JVD Neck Narrative: Positive JVD, trachea midline Resp No normal respiratory effort, no retractions, no use of accessory muscles and No clear to auscultation bilaterally Resp Narrative: Crackles bilaterally, mild tachypnea Auscultation: crackles; Negative for rhonchi or wheezes Cardio regular rate, regular rhythm, S1 normal heart sound, S2 normal heart sound, no rub, no gallops and no clicks; Negative for no murmurs Cardio Narrative: 2 out of 6 systolic murmur loudest at right upper sternal border GI normal to inspection, nondistended, normoactive bowel sounds, soft to palpation and non-tender GI Narrative: Scaphoid abdomen Extremity Extremity Narrative: Decreased lean muscle mass, pedal pulses on right are good, reduced on left lower extremity, radial pulses are 2+ bilaterally, trace to 1+ bilateral extremity edema Neuro Neuro Narrative: Patient with lethargy on BiPAP and arouses only to noxious stimuli Speech: speech normal Psych affect normal Psych Narrative: Extremely pleasant Assessment & Plan Assessment/Plan (1) Osteomyelitis of ankle, right, acute: (2) Non-pressure chronic ulcer of right ankle with necrosis of muscle: (3) Other specified peripheral vascular diseases: (4) Acute cystitis without hematuria: (5) BRBPR (bright red blood per rectum): (6) LGI bleed: PLAN: Plan Toxic/metabolic encephalopathy -Etiology is unclear -ABG is slightly acidotic with some CO2 retention however not significant enough for this -Check a.m. ammonia level and TSH -Check stat CT of the brain since he remains somnolent -May be med related however unclear -N.p.o. for mental status for now Acute hypoxic respiratory failure secondary to volume overload -Diuresis with Lasix 40 mg IV push twice daily -BNP was markedly elevated -Chest x-ray consistent with volume overload -N.p.o. for now due to mental status -Wean oxygen as able -Not markedly hypoxic on ABG currently -Continue BiPAP overnight -Check echocardiogram Lower GI bleed -Previous colonoscopy in 2022 showed angiodysplastic lesions -Colonoscopy today showed polyps in the ascending colon which were removed with hot snare, large polyp at the hepatic flexure which was removed, diverticulosis with rectal prolapse and 3 bleeding angiodysplastic lesions that were treated with heater probe -Hemoglobin remains stabilized in the 8-9 region -GI is following -Hold aspirin and Plavix until okay to restart per GI--> will discuss tomorrow -N.p.o. 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 a stud -Continue vancomycin and ceftriaxone for now -ID and podiatry following I will see if Brayden can talk next week to Severe peripheral vascular disease -Aspirin and Plavix are currently on hold -Patient had extensive intervention on his left lower extremity -Ongoing evaluation by vascular surgery here as patient would like to transfer care to [facility] -Once mental status improves will plan for CTA with runoff bilateral lower extremities and outpatient follow-up -Will restart aspirin and Plavix when appropriate per discussion with GI -Most of his previous vascular intervention has been done at Mild cognitive impairment with hallucinations -Continue home memantine Essential hypertension/hyperlipidemia -Continue home lisinopril -continue metoprolol -Continue home isosorbide mononitrate -Home Lasix on hold--> IV Lasix ordered -Continue home atorvastatin -Once mental status improves will be able to restart all home antihypertensives Atrial fibrillation with history of SSS/chronic RBBB -Patient has pacemaker -Continue home amiodarone and metoprolol -Not anticoagulated due to risk GERD -Continue home PPI Depression -Restart when able home duloxetine -Restart when able mirtazapine History of prostate cancer -Status post prostatectomy -No acute issues Generalized weakness/debility -Currently living at [facility] with plans to return after discharge DVT prophylaxis -SCDs CODE STATUS -DNR CCA with no intubation Charges/Coding Visit Charges Inpatient E&M: [address] [facility] Hosp L3
--- NOTE | 2024-06-14 18:47 | PCM.PN.BLA ---
Progress Note Follow-up in office: [2 weeks] Okay to restart [Aspirin\Plavix] on [06/15/2024] New GI related medications for discharge: [Protonix 40 mg p.o. twice daily] Follow-up procedures needed: [3 weeks] Visit Charges Inpatient E&M: 04000 Subs Hosp L2
--- NOTE | 2024-06-14 18:59 | CPS ---
patient taken off BIPAP at this time so he can be taken down to CT. His ABG does not reflect that he requires BIPAP at this time and neither do his vitals. He is 98% on a 3L nasal cannula.
[2024-06-14] MEDS: Vancomycin IV 1,000 MG/200 ML BAG 200 MG IV (20:49)
[2024-06-14] MEDS: 0.9% Saline Lock 10 ML Syringe IV (20:54)
--- NOTE | 2024-06-14 21:05 | NURSING ---
This RN called pt's son, Wesley, for an update about pt's status.
[2024-06-14] MEDS: Ceftriaxone 1 GM/50 ML BAG IV (22:35)
[2024-06-15] VITALS (15 sets, daily range): BP systolic 108–166; BP diastolic 51–86; PULSE 64–84; RESP 15–22; TEMP 36.6–37.1; O2SAT 86–100; BMI 21.4
[2024-06-15 05:34] LABS: Absolute Lymphocyte Count 0.53 X10^3/uL (0.83-4.51); Absolute Neutrophil Count 6.8 X10^3/uL (2.0-7.7); Basophil# 0.04 X10^3/uL; Basophil% 0.5 % (0-1); Eosinophil# 0.12 X10^3/uL; Eosinophils% 1.4 % (0-5); Hematocrit 29.2 % (40-54); Hemoglobin 8.8 g/dL (13.0-16.5); Lymphocyte # 0.53 X10^3/ul (0.83-4.51); Lymphocyte % 6.2 % (19-41); Mean Corp Hgb Conc 30.1 g/dL (32-36); Mean Corpuscular Hgb 31.7 pg (27.0-32.0); Mean Platelet Vol. 9.9 fl (6.2-12.0); Monocyte% 11.8 % (0-10); NRBC Flagged by Analyzer 0.4 % (0-5); Neutrophil # 6.77 X10^3/uL (2.7-7.7); Neutrophil % 79.6 % (47-70); POSITIVE DIFFERENTIAL YES; POSITIVE MORPHOLOGY YES; Platelet Count 251 K/mm3 (150-450); RBC Distribution Width CV 18.2 % (11.6-14.6); RBC Distribution Width SD 69.7 fl (35.1-43.9); Red Blood Count 2.78 M/mm3 (4.6-6.2); White Blood Count 8.5 K/mm3 (4.4-11.0)
[2024-06-15 05:52] LABS: Differential Indicated SCAN CRITERIA MET
[2024-06-15 05:54] LABS: Ammonia 11.9 umol/L (16-60)
[2024-06-15 06:07] LABS: ALB/GLOB Ratio 0.9 RATIO (0.9-2.4); AST(SGOT) 24 U/L (<=37); Alanine Aminotransfer ALT/SGPT 8 U/L (<=46); Albumin, Serum 2.8 g/dL (3.4-4.8); Alkaline Phosphatase 90 U/L (40-129); Anion Gap 13 (5-15); BUN 12 mg/dL (4-19); BUN/Creat Ratio 9.9 RATIO (10-20); Calcium 8.8 mg/dL (7.6-11.0); Carbon Dioxide 26.8 mmol/L (22.0-29.0); Chloride 109 mmol/L (96-108); Creatinine, Serum 1.18 mg/dL (0.70-1.20); EST Glomerular Filtration Rate 59 (>60); Estimated Creatinine Clearance 40.82 ml/min; Globulin 3.3 g/dL (2.2-4.2); Glucose 77 mg/dL (70-99); Magnesium 1.9 mg/dL (1.5-2.2); Phosphorus 3.6 mg/dL (2.7-4.5); Potassium 3.4 mmol/L (3.3-5.1); Protein, Total 6.2 g/dL (5.9-8.4); Sodium Level 149 mmol/L (133-145); Thyroid Stim Hormone (TSH) 0.351 uIU/mL (0.300-4.200); Total Bilirubin 0.27 mg/dL (0.00-1.30)
[2024-06-15 06:39] LABS: Anisocytosis 2+; Differential Comment SCANNED; Microcytosis 2+; Polychromasia RARE
[2024-06-15 06:40] LABS: Stomatocyte 2+; Target Cells 1+
--- NOTE | 2024-06-15 08:00 | ECHOD_ITS ---
Reason For Study Reason For Study: CHF Procedure This was a 2D Doppler, Color Flow transthoracic echocardiogram. Exam performed portable in patient room. Left Ventricle Normal LV size. The estimated ejection fraction is 70 %. Unable to assess diastolic dysfunction. No regional wall motion abnormalities noted. Right Ventricle Normal RV size. ICD or pacer leads identified within the right ventricle. Normal systolic function. Atria There is mild biatrial dilatation. ICD or pacer leads identified within the right atrium. No doppler evidence for ASD. Mitral Valve There is mild to moderate mitral annular calcification. There is no mitral valve stenosis. Trivial mitral valve insufficiency. Tricuspid Valve There is no tricuspid stenosis. Trivial tricuspid valve insufficiency. Pulmonary artery systolic pressure is 60 mmHg. Aortic Valve Aortic sclerosis, no stenosis. Trisinus/trileaflet aortic valve. There is no aortic stenosis. Trivial aortic valve insufficiency. Pulmonic Valve There is no pulmonic valvular stenosis. No pulmonic valve insufficiency. Great Vessels Normal sized aortic root. Pericardium/Pleural No pericardial effusion. MMode/2D Measurements & Calculations LVIDd: 4.3 cm IVSd: 1.3 cm LVOT diam: 2.0 cm LVIDs: 3.1 cm LVPWd: 1.5 cm LVOT area: 3.0 cm2 RVDd: 4.0 cm FS: 26.2 % LAV(MOD-bp): 95.0 ml LVAd ap4: 22.7 cm2 SV(MOD-sp4): 49.3 ml LAV(MOD-bp) Indexed: 51.6 ml/m2 LVLd ap4: 6.9 cm SI(MOD-sp4): 26.8 ml/m2 LAV(MOD-sp2): 91.7 ml EDV(MOD-sp4): 65.9 ml LAV(MOD-sp4): 93.4 ml EDV(sp4-el): 63.3 ml LVAs ap4: 9.9 cm2 LVLs ap4: 5.8 cm ESV(MOD-sp4): 16.6 ml ESV(sp4-el): 14.5 ml EF(MOD-sp4): 74.8 % EF(sp4-el): 77.2 % SV(sp4-el): 48.8 ml LA A4 area: 27.8 cm2 RA A4 area: 20.2 cm2 Time Measurements MV dec time: 0.18 sec Doppler Measurements & Calculations MV E max leda: 110.1 cm/sec MV V2 max: 106.1 cm/sec MV A max leda: 31.7 cm/sec MV max P.5 mmHg MV dec slope: 610.0 cm/sec2 MV E/A: 3.5 MV V2 mean: 61.2 cm/sec MV mean P.7 mmHg MV V2 VTI: 21.8 cm MVA(VTI): 3.4 cm2 Ao V2 max: 167.4 cm/sec LV V1 max: 134.1 cm/sec SV(LVOT): 74.9 ml Ao max P.2 mmHg LV V1 max P.2 mmHg Ao V2 mean: 98.2 cm/sec LV V1 mean P.7 mmHg Ao mean P.7 mmHg LV V1 mean: 90.3 cm/sec Ao V2 VTI: 29.3 cm LV V1 VTI: 24.9 cm AV (velocity ratio): 0.85 LELO(I,D): 2.6 cm2 LELO(V,D): 2.4 cm2 TR max leda: 347.4 cm/sec TR max P.3 mmHg ECHO/Echo Complete Interpretation Summary The estimated ejection fraction is 70 %. There is mild biatrial dilatation. Trivial mitral valve insufficiency. Trivial aortic valve insufficiency. Ordering Physician: Yane Callahan Referring Physician: Dennys Manley Performed By: Jo Ann Rosado RCS
--- NOTE | 2024-06-15 10:02 | PCM.PROGNOTE ---
Subjective Subjective Patient was seen this morning for follow up on right ankle and toes, he is resting in bed. He is more alert and more responsive this morning compared to yesterday morning. Objective Data Objective Data Vital Signs: Vital Signs Temp Pulse Resp BP Pulse Ox O2 Del Method O2 Flow Rate 98.8 F 64 22 H 108/51 L 91 Nasal Cannula 3 06/15/24 03:47 06/15/24 04:38 06/15/24 04:38 06/15/24 03:47 06/15/24 08:22 06/15/24 08:22 06/15/24 08:22 FiO2 30 06/15/24 04:38 Oxygen Flow Rate (L/min) 3 Oxygen Delivery Method Nasal Cannula Weight: 68 kg Body Mass Index (BMI) 21.4 Intake & Output: Intake and Output for Last 24 Hours 06/13/24 06/14/24 06/15/24 23:59 23:59 23:59 Intake Total 2840.17 / 2940.17 639.83 / 639.83 0 / 0 Output Total 1300 / 2000 900 / 900 Balance 2840.17 / 2940.17 -660.17 / -1360.17 -900 / -900 Lab / Micro Data 06/15/24 05:02 06/15/24 05:02 Labs: Laboratory Results - last 24 hr 06/14/24 05:12: [place] [address] H 06/15/24 05:02: WBC 8.5, RBC 2.78 L, Hgb 8.8 L, Hct 29.2 L, MCV 105.0 H, MCH 31.7, MCHC 30.1 L, RDW Std Deviation 69.7 H, RDW Coeff of Ayesha 18.2 H, Plt Count 251, MPV 9.9, Immature Gran % (Auto) 0.500, Neut % (Auto) 79.6 H, Lymph % (Auto) 6.2 L, [place] % (Auto) 11.8 H, Eos % (Auto) 1.4, Baso % (Auto) 0.5, Absolute Neuts (auto) 6.8, Absolute Lymphs (auto) 0.53 L, Nucleated RBC % 0.4, Differential Comment SCANNED, Polychromasia RARE, Anisocytosis 2+, Microcytosis 2+, Target Cells 1+, Stomatocytes 2+, Sodium 149 H, Potassium 3.4, Chloride Direct 109 H, Carbon Dioxide 26.8, Anion Gap 13, BUN 12, Creatinine 1.18, Estim Creat Clear Calc 40.82, Est GFR (MDRD) Non-Af 59 L, BUN/Creatinine Ratio 9.9 L, Glucose 77, Calcium 8.8, Phosphorus 3.6, Magnesium 1.9, Total Bilirubin 0.27, AST 24, ALT 8, Alkaline Phosphatase 90, Ammonia 11.9 L, Total Protein 6.2, Albumin 2.8 L, Globulin 3.3, Albumin/Globulin Ratio 0.9, TSH 0.351 Micro: Microbiology 06/12/24 13:50 Wound - Ankle Gram Stain - Final 06/12/24 13:50 Wound - Ankle Wound Culture - Final Staphylococcus aureus 06/11/24 22:10 Urine, Clean Catch Urine Culture - Final Proteus mirabilis 06/11/24 21:30 Stool Stool Occult Blood (MERRICK) - Final Occult Blood Positive Radiography Diagnostic Testing: Radiology Impression Brain CT 06/14/24 18:03 IMPRESSION: No acute finding. Stable findings of chronic microvascular ischemic changes and age-related changes. Reading Location: [facility] Physical Exam Const alert and no apparent distress Constitutional Narrative: There is a wound to the lateral ankle overlying the lateral malleolus with fibrotic boggy base, there is localized surrounding erythema and there is some serous drainage, probes close to bone - stable today, there are dry eschars to toes, there is no visible abscess. No evidence of acute ischemia. Assessment & Plan Assessment/Plan (1) Non-pressure chronic ulcer of right ankle with necrosis of muscle: (2) Other specified peripheral vascular diseases: (3) Gangrene, not elsewhere classified: (4) Osteomyelitis of ankle, right, acute: PLAN: Plan Evaluation performed. A culture has been obtained right ankle ulceration - growing staph. Also right ankle xrays with findings c/w chronic osteomyelitis. Discussed OR debridement with bone biopsy with patient and his son Wesley today. Also discussed with Dr. Callahan- and patient's alertness is much improved today - will continue to monitor over weekend and as long as patient remains stable OR debridement with bone biopsy on Monday. Patient is on antibiotics Ceftriaxone and Vancoymcin. Infectious Disease is on consult. Patient also with lower extremity peripheral vascular disease - consult placed to vascular surgery service who is following patient as well. Toes are stable today. Wound care - betadine soln to right ankle ulceration and gauze dressing changes daily. Keep offloaded at all times. Podiatry will continue to follow.
[2024-06-15] MEDS: Furosemide 40 MG/4 ML Vial IV ×2 (11:18→18:38)
[2024-06-15] MEDS: Acetaminophen 500 MG Tablet 1000 MG PO ×2 (11:20→18:38)
[2024-06-15] MEDS: Pantoprazole Sodium 40 MG in 0.9% Normal Saline (100mL MB+) 100 ML 330 MG IV (11:23)
[2024-06-15] MEDS: 0.9% Normal Saline (100mL Bag) 100 ML 15 ML IV (11:50)
--- NOTE | 2024-06-15 13:22 | PCM.PN.HOSP ---
Reason for Visit Reason for Visit: Bright red blood per rectum Subjective Subjective Patient's mental status is back to baseline today. Workup was unremarkable so it seems like this was just prolonged effects of anesthesia after colonoscopy. Objective Data Objective Data Vital Signs: Vital Signs Temp Pulse Resp BP Pulse Ox O2 Del Method O2 Flow Rate 97.9 F 78 20 H 125/86 H 94 Room Air 2 06/15/24 11:00 06/15/24 11:00 06/15/24 11:00 06/15/24 11:00 06/15/24 11:33 06/15/24 11:33 06/15/24 11:00 FiO2 30 06/15/24 04:38 Oxygen Flow Rate (L/min) 2 Oxygen Delivery Method Room Air Weight: 68 kg Body Mass Index (BMI) 21.4 Intake & Output: Intake and Output for Last 24 Hours 06/13/24 06/14/24 06/15/24 23:59 23:59 23:59 Intake Total 2840.17 / 2940.17 639.83 / 639.83 118.5 / 118.5 Output Total 1300 / 2000 900 / 900 Balance 2840.17 / 2940.17 -660.17 / -1360.17 -781.5 / -781.5 Lab / Micro Data 06/15/24 05:02 06/15/24 05:02 Labs: Laboratory Results - last 24 hr 06/15/24 05:02: WBC 8.5, RBC 2.78 L, Hgb 8.8 L, Hct 29.2 L, MCV 105.0 H, MCH 31.7, MCHC 30.1 L, RDW Std Deviation 69.7 H, RDW Coeff of Ayesha 18.2 H, Plt Count 251, MPV 9.9, Immature Gran % (Auto) 0.500, Neut % (Auto) 79.6 H, Lymph % (Auto) 6.2 L, [place] % (Auto) 11.8 H, Eos % (Auto) 1.4, Baso % (Auto) 0.5, Absolute Neuts (auto) 6.8, Absolute Lymphs (auto) 0.53 L, Nucleated RBC % 0.4, Differential Comment SCANNED, Polychromasia RARE, Anisocytosis 2+, Microcytosis 2+, Target Cells 1+, Stomatocytes 2+, Sodium 149 H, Potassium 3.4, Chloride Direct 109 H, Carbon Dioxide 26.8, Anion Gap 13, BUN 12, Creatinine 1.18, Estim Creat Clear Calc 40.82, Est GFR (MDRD) Non-Af 59 L, BUN/Creatinine Ratio 9.9 L, Glucose 77, Calcium 8.8, Phosphorus 3.6, Magnesium 1.9, Total Bilirubin 0.27, AST 24, ALT 8, Alkaline Phosphatase 90, Ammonia 11.9 L, Total Protein 6.2, Albumin 2.8 L, Globulin 3.3, Albumin/Globulin Ratio 0.9, TSH 0.351 Micro: Microbiology 06/12/24 13:50 Wound - Ankle Gram Stain - Final 06/12/24 13:50 Wound - Ankle Wound Culture - Final Staphylococcus aureus 06/11/24 22:10 Urine, Clean Catch Urine Culture - Final Proteus mirabilis 06/11/24 21:30 Stool Stool Occult Blood (MERRICK) - Final Occult Blood Positive Radiography Diagnostic Testing: Radiology Impression Brain CT 06/14/24 18:03 IMPRESSION: No acute finding. Stable findings of chronic microvascular ischemic changes and age-related changes. Reading Location: [facility] Echocardiogram 06/15/24 08:00 Interpretation Summary The estimated ejection fraction is 70 %. There is mild biatrial dilatation. Trivial mitral valve insufficiency. Trivial aortic valve insufficiency. Ordering Physician: Yane Callahan Referring Physician: Dennys Manley Performed By: Jo Ann Rosado RCS Physical Exam Const alert, oriented x3 and no apparent distress; Negative for average body habitus, healthy appearing or well nourished Constitutional Narrative: Elderly, white male, lying in bed, appears comfortable, mental status is back to baseline and alert and oriented x 3, appears comfortable, nontoxic General Appearance: cooperative HEENT normocephalic and head/scalp atraumatic HEENT Narrative: Mallampati 2, no thrush Neck No no JVD Resp No normal respiratory effort, no retractions, no use of accessory muscles and No clear to auscultation bilaterally Resp Narrative: Still few scattered crackles but tachypnea has resolved and breathing is much improved Auscultation: crackles; Negative for rales, rhonchi or wheezes Cardio regular rate, regular rhythm, S1 normal heart sound, S2 normal heart sound, no rub, no gallops and no clicks; Negative for no murmurs Cardio Narrative: 2 out of 6 systolic murmur loudest at right upper sternal border GI normal to inspection, nondistended, normoactive bowel sounds, soft to palpation and non-tender GI Narrative: Scaphoid abdomen Extremity no clubbing, cyanosis or edema Extremity Narrative: Decreased lean muscle mass, pedal pulses on right are good, reduced on left lower extremity, radial pulses are 2+ bilaterally, trace to 1+ bilateral extremity edema Neuro oriented x3, moves all extremities and no focal motor deficits Neuro Narrative: Mental status is back to baseline, patient still significantly weak Speech: speech normal Psych affect normal Psych Narrative: Extremely pleasant Assessment & Plan Assessment/Plan (1) Osteomyelitis of ankle, right, acute: (2) Non-pressure chronic ulcer of right ankle with necrosis of muscle: (3) Other specified peripheral vascular diseases: (4) Acute cystitis without hematuria: (5) BRBPR (bright red blood per rectum): (6) LGI bleed: PLAN: Plan Toxic/metabolic encephalopathy -Etiology is unclear but suspect this was likely related to prolonged effects of sedation post colonoscopy as he is now back to baseline and this is resolved -ABG normalized -Ammonia level and TSH within normal limits -CT brain unremarkable -Okay to restart p.o. diet Acute hypoxic respiratory failure secondary to HFpEF/pulmonary hypertension -Continue IV Lasix -Respiratory status is much improved -Echo done on 06/15/2024 showed EF of 70% with mild biatrial dilation and trivial mitral and aortic valve insufficiency with right ventricular systolic pressures at 60 mmHg Lower GI bleed -Previous colonoscopy in 2022 showed angiodysplastic lesions -Colonoscopy today showed polyps in the ascending colon which were removed with hot snare, large polyp at the hepatic flexure which was removed, diverticulosis with rectal prolapse and 3 bleeding angiodysplastic lesions that were treated with heater probe -Hemoglobin remains stabilized in the 8-9 region -GI is following -Will continue to hold aspirin and Plavix until postoperative and okay to reinitiate by podiatry -N.p.o. currently for altered mental status Proteus urinary tract infection -Continue antibiotics with vancomycin and ceftriaxone per ID Right ankle osteomyelitis -Highly suspicious for osteomyelitis -Plan is for I&D on Monday with podiatry -Case discussed extensively with Dr. Garcia and would recommend nerve block and numbing for anesthesia and not significant systemic sedation due to response after colonoscopy -Continue vancomycin and ceftriaxone -ID and podiatry are following -Hold Plavix and aspirin until okay to reinstitute by podiatry Severe peripheral vascular disease -Aspirin and Plavix are currently on hold and restart after okay by podiatry -Patient had extensive intervention on his left lower extremity -Ongoing evaluation by vascular surgery here as patient would like to transfer care to [facility] -Will plan to order CTA with runoff tomorrow -Most of his previous vascular intervention has been done at Mild cognitive impairment with hallucinations -Continue home memantine Essential hypertension/hyperlipidemia -Hold lisinopril perioperatively -Restart home metoprolol -Hold home Imdur -Home Lasix on hold--> continue IV Lasix for now -Continue home atorvastatin -Once mental status improves will be able to restart all home antihypertensives Atrial fibrillation with history of SSS/chronic RBBB -Patient has pacemaker -Restart home amlodipine and metoprolol -Not anticoagulated due to risk GERD -Continue home PPI Depression -Restart home antidepressants History of prostate cancer -Status post prostatectomy -No acute issues Generalized weakness/debility -Currently living at [facility] with plans to return after discharge DVT prophylaxis -Okay to start enoxaparin CODE STATUS -DNR CCA with no intubation Charges/Coding Visit Charges Inpatient E&M: 38452 Subs Hosp L2
[2024-06-15] MEDS: 0.9% Saline Lock 10 ML Syringe IV ×2 (18:38→22:09)
[2024-06-15] MEDS: Metoprolol Tartrate 50 MG Tablet 150 MG PO (21:43)
[2024-06-15] MEDS: Mirtazapine 15 MG Tablet PO (21:43)
[2024-06-15] MEDS: Atorvastatin Calcium 20 MG Tablet PO (21:43)
--- NOTE | 2024-06-15 21:53 | PCM.RX.CS ---
Consult Antibiotic Management Pharmacy has been consulted to manage selected antibiotic: Vancomycin Type of Intervention Type of Consult: Follow-up Suspected Infection Suspected Infection: Osteomyelitis Labs Labs: Sodium 149 mmol/L (133-145) H 06/15/24 05:02 Potassium 3.4 mmol/L (3.3-5.1) 06/15/24 05:02 Carbon Dioxide 26.8 mmol/L (22.0-29.0) 06/15/24 05:02 Anion Gap 13 (5-15) 06/15/24 05:02 BUN 12 mg/dL (4-19) 06/15/24 05:02 Creatinine 1.18 mg/dL (0.70-1.20) 06/15/24 05:02 Est GFR (MDRD) Non-Af 59 (>60) L 06/15/24 05:02 BUN/Creatinine Ratio 9.9 RATIO (10-20) L 06/15/24 05:02 Glucose 77 mg/dL (70-99) 06/15/24 05:02 Vancomycin Trough 23.0 ug/mL (5.0-15.0) H 06/15/24 20:30 Microbiology Microbiology: Microbiology 06/12/24 13:50 Wound - Ankle Gram Stain - Final 06/12/24 13:50 Wound - Ankle Wound Culture - Final Staphylococcus aureus 06/11/24 22:10 Urine, Clean Catch Urine Culture - Final Proteus mirabilis 06/11/24 21:30 Stool Stool Occult Blood (MERRICK) - Final Occult Blood Positive Dosing Weight Weight used for dosin kg Estimated Creatinine Clearance Estimated Creatinine Clearance: 41 Goal Trough Goal Trough: 15-20 mcg/mL Pharmacy Plan for Drug Dosing Pharmacy Plan for Drug Dosing: Vancomycin trough level of 23.0, drawn 11.6hrs post-dose, was above the target range of 15-20. Will suspend current dosing and draw a random vanco level in 24hrs to determine further orders. Pharmacy Service will continue to monitor and adjust dosing as required. Follow-Up Labs Follow-Up Labs: Trough: Vancomycin (random) Date/Time Labs Ordered Labs to be done on [date and time ordered]: 06/16/24 @2029 (random)
[2024-06-15] MEDS: Ceftriaxone 1 GM/50 ML BAG IV (22:09)
[2024-06-16] VITALS (8 sets, daily range): BP systolic 114–165; BP diastolic 54–109; PULSE 60–77; RESP 14–18; TEMP 36.4–36.9; O2SAT 93–97; BMI 20.5
[2024-06-16] MEDS: Acetaminophen 500 MG Tablet 1000 MG PO (02:30)
[2024-06-16 06:22] LABS: Absolute Lymphocyte Count 0.59 X10^3/uL (0.83-4.51); Absolute Neutrophil Count 5.5 X10^3/uL (2.0-7.7); Basophil# 0.04 X10^3/uL; Basophil% 0.6 % (0-1); Eosinophil# 0.19 X10^3/uL; Eosinophils% 2.6 % (0-5); Hematocrit 27.5 % (40-54); Hemoglobin 8.4 g/dL (13.0-16.5); Lymphocyte # 0.59 X10^3/ul (0.83-4.51); Lymphocyte % 8.2 % (19-41); Mean Corp Hgb Conc 30.5 g/dL (32-36); Mean Corpuscular Hgb 31.6 pg (27.0-32.0); Mean Corpuscular Volume 103.4 fL (80-94); Mean Platelet Vol. 9.9 fl (6.2-12.0); Monocyte% 12.5 % (0-10); NRBC Flagged by Analyzer 0.3 % (0-5); Neutrophil # 5.46 X10^3/uL (2.7-7.7); Neutrophil % 75.8 % (47-70); POSITIVE DIFFERENTIAL YES; POSITIVE MORPHOLOGY YES; Platelet Count 262 K/mm3 (150-450); RBC Distribution Width CV 18.1 % (11.6-14.6); RBC Distribution Width SD 68.1 fl (35.1-43.9); Red Blood Count 2.66 M/mm3 (4.6-6.2); White Blood Count 7.2 K/mm3 (4.4-11.0)
[2024-06-16 06:27] LABS: Differential Indicated SCAN CRITERIA MET
[2024-06-16 06:57] LABS: Anion Gap 10 (5-15); BUN 13 mg/dL (4-19); BUN/Creat Ratio 10.9 RATIO (10-20); Calcium 8.6 mg/dL (7.6-11.0); Carbon Dioxide 30.5 mmol/L (22.0-29.0); Chloride 102 mmol/L (96-108); Creatinine, Serum 1.17 mg/dL (0.70-1.20); EST Glomerular Filtration Rate 60 (>60); Estimated Creatinine Clearance 39.35 ml/min (50-250); Glucose 89 mg/dL (70-99); Magnesium 1.8 mg/dL (1.5-2.2); Potassium 2.9 mmol/L (3.3-5.1); Sodium Level 143 mmol/L (133-145)
[2024-06-16 07:43] LABS: Anisocytosis RARE
[2024-06-16] MEDS: Amiodarone 200 MG Tablet PO (08:38)
[2024-06-16] MEDS: Potassium Chloride Oral Tablet 20 MEQ 60 MEQ PO (08:38)
--- NOTE | 2024-06-16 10:00 | CT_ITS ---
PROCEDURE: CTA ABD W/RUNOFF W/WO CONTRAST REASON FOR EXAM: Vascular disease TECHNIQUE: CTA imaging of the abdomen, pelvis, and lower extremities with intravenous contrast. 3D reconstructions. COMPARISON: None. FINDINGS: Aorta: Mild mixed calcified and soft plaque identified. No abdominal aortic aneurysm. Celiac: Mild mixed plaque yet patent SMA: Mild mixed calcified and soft plaque identified. MOHAN : Normal. Right Renal: Mild mixed calcified and soft plaque identified. Left Renal: Mild mixed calcified and soft plaque identified. RIGHT Iliac Arteries: Common Iliac: Mild mixed calcified and soft plaque identified. External Iliac: Moderate mixed calcified and soft plaque identified. No high grade stenosis. Internal Iliac: Normal. LEFT Iliac Arteries: Common Iliac: Patent stent. External Iliac: Patent stent. Internal Iliac: Normal. RIGHT Lower Extremity: Common Femoral: Moderate mixed calcified and soft plaque identified. No high grade stenosis. Superficial Femoral: Occluded stent Deep Femoral: Normal. Popliteal: High-grade stenosis and occlusion in the P3 segment Anterior Tibial: High-grade stenoses proximally and occluded distally Tibioperoneal Trunk: High-grade stenoses Posterior Tibial: Occluded proximally and reconstituted distally via peroneal. Peroneal: Multi segmental stenoses and distally Dorsalis Pedis: Opacified LEFT Lower Extremity: Common Femoral: Moderate mixed calcified and soft plaque identified. No high grade stenosis. Superficial Femoral: Patent stent. Deep Femoral: Normal. Popliteal: Patent stent. Anterior Tibial: Occluded. Tibioperoneal Trunk: High-grade stenoses. Posterior Tibial: Mild mixed calcified and soft plaque identified. Peroneal: Occluded. Dorsalis Pedis: Occluded Other Stents/Grafts: None. Other Findings: Moderate bilateral pleural effusions compressive consolidation. No ascites or lymphadenopathy. Scattered diverticulosis with no evidence of diverticulitis. Small hiatal hernia. There are multilevel degenerative changes at the spine. CT/CTA Abd w/Runoff W/WO Contrast IMPRESSION: 1. Moderate to severe atherosclerotic disease throughout the arterial system w ith severe right lower extremity disease with occluded superficial femoral artery stents and occlusions of the popliteal and infrapopliteal arteries. There is reconstitution of the popliteal artery distally on the right via of the diseased peroneal. 2. Left lower extremity with patent stents and single one-vessel runoff via th e posterior tibial artery. 3. Moderate bilateral pleural effusions 4. Scattered diverticulosis with no evidence of diverticulitis 5. Small hiatal hernia One or more dose reduction techniques were used (e.g., Automated exposure contr ol, adjustment of the mA and/or kV according to patient size, use of iterative reconstruction technique). Reading Location: [facility]
[2024-06-16] MEDS: Pantoprazole Sodium 40 MG Tablet PO (10:43)
[2024-06-16] MEDS: Enoxaparin 40 MG/0.4 ML Syringe SC (10:43)
[2024-06-16] MEDS: DULoxetine Hcl 30 MG Capsule PO (10:44)
[2024-06-16] MEDS: Metoprolol Tartrate 50 MG Tablet 150 MG PO ×2 (10:44→20:35)
[2024-06-16] MEDS: Memantine Hydrochloride 10 MG Tablet PO ×2 (10:44→20:35)
[2024-06-16] MEDS: Furosemide 40 MG Tablet PO (10:47)
--- NOTE | 2024-06-16 11:20 | PN_ITS ---
Subjective Subjective Patient was seen this morning and appears his alertness is back to baseline. He is resting in bed watching TV. He has no new complaints. Ho complaints of f/c/n/v. Objective Data Objective Data Vital Signs: Vital Signs Temp Pulse Resp BP Pulse Ox O2 Del Method O2 Flow Rate 98.4 F 61 18 152/63 H 97 Room Air 2 06/16/24 08:22 06/16/24 10:44 06/16/24 08:22 06/16/24 08:22 06/16/24 08:22 06/16/24 08:22 06/16/24 04:55 FiO2 30 06/15/24 04:38 Oxygen Flow Rate (L/min) 2 Oxygen Delivery Method Room Air Weight: 65 kg Body Mass Index (BMI) 20.5 Intake & Output: Intake and Output for Last 24 Hours 06/14/24 06/15/24 06/16/24 23:59 23:59 23:59 Intake Total 639.83 / 639.83 568.5 / 618.5 100 / 100 Output Total 1300 / 2000 1950 / 2200 650 / 650 Balance -660.17 / -1360.17 -1381.5 / -1581.5 -550 / -550 Lab / Micro Data 06/16/24 05:43 06/16/24 05:43 Labs: Laboratory Results - last 24 hr 06/15/24 20:30: Vancomycin Trough 23.0 H 06/16/24 05:43: WBC 7.2, RBC 2.66 L, Hgb 8.4 L, Hct 27.5 L, MCV 103.4 H, MCH 31.6, MCHC 30.5 L, RDW Std Deviation 68.1 H, RDW Coeff of Ayesha 18.1 H, Plt Count 262, MPV 9.9, Immature Gran % (Auto) 0.300, Neut % (Auto) 75.8 H, Lymph % (Auto) 8.2 L, [place] % (Auto) 12.5 H, Eos % (Auto) 2.6, Baso % (Auto) 0.6, Absolute Neuts (auto) 5.5, Absolute Lymphs (auto) 0.59 L, Nucleated RBC % 0.3, Anisocytosis RARE, Sodium 143, Potassium 2.9 L, Chloride Direct 102, Carbon Dioxide 30.5 H, Anion Gap 10, BUN 13, Creatinine 1.17, Estim Creat Clear Calc 39.35 L, Est GFR (MDRD) Non-Af 60, BUN/Creatinine Ratio 10.9, Glucose 89, Calcium 8.6, Phosphorus 3.0, Magnesium 1.8 Micro: Microbiology 06/12/24 13:50 Wound - Ankle Gram Stain - Final 06/12/24 13:50 Wound - Ankle Wound Culture - Final Staphylococcus aureus 06/11/24 22:10 Urine, Clean Catch Urine Culture - Final Proteus mirabilis 06/11/24 21:30 Stool Stool Occult Blood (MERRICK) - Final Occult Blood Positive Radiography Diagnostic Testing: Radiology Impression Echocardiogram 06/15/24 08:00 Interpretation Summary The estimated ejection fraction is 70 %. There is mild biatrial dilatation. Trivial mitral valve insufficiency. Trivial aortic valve insufficiency. Ordering Physician: Yane Callahan Referring Physician: Dennys Manley Performed By: Jo Ann Rosado RCS Abdomen/Pelvis CTA 06/16/24 10:00 IMPRESSION: 1. Moderate to severe atherosclerotic disease throughout the arterial system with severe right lower extremity disease with occluded superficial femoral artery stents and occlusions of the popliteal and infrapopliteal arteries. There is reconstitution of the popliteal artery distally on the right via of the diseased peroneal. 2. Left lower extremity with patent stents and single one-vessel runoff via the posterior tibial artery. 3. Moderate bilateral pleural effusions 4. Scattered diverticulosis with no evidence of diverticulitis 5. Small hiatal hernia One or more dose reduction techniques were used (e.g., Automated exposure control, adjustment of the mA and/or kV according to patient size, use of iterative reconstruction technique). Reading [facility] Physical Exam Const alert and no apparent distress Constitutional Narrative: There is a wound to the lateral ankle overlying the lateral malleolus with fibrotic boggy base with some granular tissue as well, there is localized surrounding erythema which slightly improved today, and there is minimal serous drainage, probes close to bone, there are dry stable eschars to toes, there is no visible abscess. No evidence of acute ischemia. Assessment & Plan Assessment/Plan (1) Non-pressure chronic ulcer of right ankle with necrosis of muscle: (2) Other specified peripheral vascular diseases: (3) Gangrene, not elsewhere classified: (4) Osteomyelitis of ankle, right, acute: PLAN: Plan Evaluation performed. A culture has been obtained right ankle ulceration - MSSA. Right ankle xrays with findings c/w chronic osteomyelitis. Discussed OR debridement with bone biopsy vs bone scan with patient, and his son Wesley. Also discussed with Dr. Callahan. Patient's alertness is back to backline. Patient and son agree with OR debridement with bone biopsy with plan for it to be tomorrow (Monday) afternoon. Patient is on antibiotics Ceftriaxone and Vancoymcin. Infectious Disease is on consult. Patient also with lower extremity peripheral vascular disease - consult placed to vascular surgery service who is following patient as well. Toes are stable today, and ok to proceed with right ankle debridement per discussion with vascular team. Wound care - betadine soln to right ankle ulceration and gauze dressing changes daily. Keep offloaded at all times. Podiatry will continue to follow.
--- NOTE | 2024-06-16 13:01 | PCM.PN.HOSP ---
Reason for Visit Reason for Visit: Bright red blood per rectum Subjective Subjective Patient has no complaints. Breathing is fine. We discussed surgery for tomorrow and patient will be n.p.o. after midnight. No overnight issues. Objective Data Objective Data Vital Signs: Vital Signs Temp Pulse Resp BP Pulse Ox O2 Del Method O2 Flow Rate 98.4 F 61 18 152/63 H 97 Room Air 2 06/16/24 08:22 06/16/24 10:44 06/16/24 08:22 06/16/24 08:22 06/16/24 08:22 06/16/24 08:22 06/16/24 04:55 FiO2 30 06/15/24 04:38 Oxygen Flow Rate (L/min) 2 Oxygen Delivery Method Room Air Weight: 65 kg Body Mass Index (BMI) 20.5 Intake & Output: Intake and Output for Last 24 Hours 06/14/24 06/15/24 06/16/24 23:59 23:59 23:59 Intake Total 639.83 / 639.83 568.5 / 618.5 100 / 100 Output Total 1300 / 2000 1950 / 2200 650 / 650 Balance -660.17 / -1360.17 -1381.5 / -1581.5 -550 / -550 Lab / Micro Data 06/16/24 05:43 06/16/24 05:43 Labs: Laboratory Results - last 24 hr 06/15/24 20:30: Vancomycin Trough 23.0 H 06/16/24 05:43: WBC 7.2, RBC 2.66 L, Hgb 8.4 L, Hct 27.5 L, MCV 103.4 H, MCH 31.6, MCHC 30.5 L, RDW Std Deviation 68.1 H, RDW Coeff of Ayesha 18.1 H, Plt Count 262, MPV 9.9, Immature Gran % (Auto) 0.300, Neut % (Auto) 75.8 H, Lymph % (Auto) 8.2 L, [place] % (Auto) 12.5 H, Eos % (Auto) 2.6, Baso % (Auto) 0.6, Absolute Neuts (auto) 5.5, Absolute Lymphs (auto) 0.59 L, Nucleated RBC % 0.3, Anisocytosis RARE, Sodium 143, Potassium 2.9 L, Chloride Direct 102, Carbon Dioxide 30.5 H, Anion Gap 10, BUN 13, Creatinine 1.17, Estim Creat Clear Calc 39.35 L, Est GFR (MDRD) Non-Af 60, BUN/Creatinine Ratio 10.9, Glucose 89, Calcium 8.6, Phosphorus 3.0, Magnesium 1.8 Micro: Microbiology 06/12/24 13:50 Wound - Ankle Gram Stain - Final 06/12/24 13:50 Wound - Ankle Wound Culture - Final Staphylococcus aureus 06/11/24 22:10 Urine, Clean Catch Urine Culture - Final Proteus mirabilis 06/11/24 21:30 Stool Stool Occult Blood (MERRICK) - Final Occult Blood Positive Radiography Diagnostic Testing: Radiology Impression Abdomen/Pelvis CTA 06/16/24 10:00 IMPRESSION: 1. Moderate to severe atherosclerotic disease throughout the arterial system with severe right lower extremity disease with occluded superficial femoral artery stents and occlusions of the popliteal and infrapopliteal arteries. There is reconstitution of the popliteal artery distally on the right via of the diseased peroneal. 2. Left lower extremity with patent stents and single one-vessel runoff via the posterior tibial artery. 3. Moderate bilateral pleural effusions 4. Scattered diverticulosis with no evidence of diverticulitis 5. Small hiatal hernia One or more dose reduction techniques were used (e.g., Automated exposure control, adjustment of the mA and/or kV according to patient size, use of iterative reconstruction technique). Reading [facility] Physical Exam Const alert, oriented x3 and no apparent distress; Negative for average body habitus, healthy appearing or well nourished Constitutional Narrative: Thin, elderly, white male, lying in bed, appears comfortable, appears comfortable, nontoxic, nursing at bedside General Appearance: cooperative HEENT normocephalic and head/scalp atraumatic HEENT Narrative: Mallampati 2, no thrush Resp No normal respiratory effort, no retractions, no use of accessory muscles and No clear to auscultation bilaterally Auscultation: Negative for rales, rhonchi or wheezes Cardio regular rate, regular rhythm, S1 normal heart sound, S2 normal heart sound, no rub, no gallops and no clicks; Negative for no murmurs Cardio Narrative: 2 out of 6 systolic murmur loudest at right upper sternal border GI normal to inspection, nondistended, normoactive bowel sounds, soft to palpation and non-tender GI Narrative: Scaphoid abdomen Extremity no clubbing, cyanosis or edema Extremity Narrative: Decreased lean muscle mass, pedal pulses on right are good, reduced on left lower extremity, radial pulses are 2+ bilaterally, trace to 1+ bilateral extremity edema, cap refill is good on right lower extremity Neuro oriented x3, moves all extremities and no focal motor deficits Neuro Narrative: Severe generalized weakness but no focal deficits noted Sensorium / Orientation: alert Speech: speech normal Psych affect normal Psych Narrative: Extremely pleasant Assessment & Plan Assessment/Plan (1) Osteomyelitis of ankle, right, acute: (2) Non-pressure chronic ulcer of right ankle with necrosis of muscle: (3) Other specified peripheral vascular diseases: (4) Acute cystitis without hematuria: (5) BRBPR (bright red blood per rectum): (6) LGI bleed: PLAN: Plan Toxic/metabolic encephalopathy Resolved Acute hypoxic respiratory failure secondary to HFpEF/pulmonary hypertension -Resolved -Home Lasix restarted Lower GI bleed -Previous colonoscopy in 2022 showed angiodysplastic lesions -Colonoscopy today showed polyps in the ascending colon which were removed with hot snare, large polyp at the hepatic flexure which was removed, diverticulosis with rectal prolapse and 3 bleeding angiodysplastic lesions that were treated with heater probe -Hemoglobin remains stabilized in the 8-9 region -GI is following -Will continue to hold aspirin and Plavix until postoperative and okay to reinitiate by podiatry -Will become n.p.o. at midnight for surgery tomorrow Proteus urinary tract infection -Continue antibiotics with vancomycin and ceftriaxone per ID Right ankle osteomyelitis -Highly suspicious for osteomyelitis -Plan is for I&D on 06/17/2024 with podiatry -Case discussed extensively with Dr. Garcia and would recommend nerve block and numbing for anesthesia and not significant systemic sedation due to response after colonoscopy -N.p.o. after midnight -Continue vancomycin and ceftriaxone -ID and podiatry are following -Hold Plavix and aspirin until okay to reinstitute by podiatry Severe peripheral vascular disease -Aspirin and Plavix are currently on hold and restart after okay by podiatry -Patient had extensive intervention on his left lower extremity -Ongoing evaluation by vascular surgery here as patient would like to transfer care to [facility] -CTA with runoff ordered that shows moderate to severe atherosclerotic disease throughout the arterial system with severe right lower extremity disease showing an occluded superficial femoral artery stents and occlusions in the popliteal and infrapopliteal arteries with reconstitution of the popliteal artery distally on the right, left lower extremity with patent stents and single one-vessel runoff the posterior tibial artery, moderate bilateral pleural effusions -Most of his previous vascular intervention has been done at -Patient plans on following up here after discharge with Dr. Lizarraga Bilateral pleural effusions -Right greater than left -Will continue diuresis with IV Lasix 40 daily -Clinically patient stabilized and back on room air Mild cognitive impairment with hallucinations -Continue home memantine Essential hypertension/hyperlipidemia -Hold lisinopril perioperatively -Continue metoprolol -Hold home Imdur--> could consider restarting after surgery tomorrow depending on blood pressure trends -Home Lasix on hold--> continue IV Lasix for now -Continue home atorvastatin -Once mental status improves will be able to restart all home antihypertensives Atrial fibrillation with history of SSS/chronic RBBB -Patient has pacemaker -Continue home metoprolol -Continue home amiodarone -Not anticoagulated due to risk GERD -Continue home PPI Depression -Continue home antidepressants History of prostate cancer -Status post prostatectomy -No acute issues Generalized weakness/debility -Currently living at [facility] with plans to return after discharge -Should be able to return once okay with vascular and podiatry DVT prophylaxis -Okay to start enoxaparin CODE STATUS -DNR CCA with no intubation Charges/Coding Visit Charges Inpatient E&M: 75170 Subs Hosp L2
[2024-06-16] MEDS: Mirtazapine 15 MG Tablet PO (20:35)
[2024-06-16] MEDS: Atorvastatin Calcium 20 MG Tablet PO (20:35)
[2024-06-16 20:50] LABS: Vancomycin, Random Level 17.2 ug/mL (0.0-15.0)
--- NOTE | 2024-06-16 21:01 | PCM.RX.CS ---
Consult Antibiotic Management Pharmacy has been consulted to manage selected antibiotic: Vancomycin Type of Intervention Type of Consult: Follow-up Suspected Infection Suspected Infection: Osteomyelitis Labs Labs: Sodium 143 mmol/L (133-145) 06/16/24 05:43 Potassium 2.9 mmol/L (3.3-5.1) L 06/16/24 05:43 Carbon Dioxide 30.5 mmol/L (22.0-29.0) H 06/16/24 05:43 Anion Gap 10 (5-15) 06/16/24 05:43 BUN 13 mg/dL (4-19) 06/16/24 05:43 Creatinine 1.17 mg/dL (0.70-1.20) 06/16/24 05:43 Est GFR (MDRD) Non-Af 60 (>60) 06/16/24 05:43 BUN/Creatinine Ratio 10.9 RATIO (10-20) 06/16/24 05:43 Glucose 89 mg/dL (70-99) 06/16/24 05:43 Vancomycin Trough 23.0 ug/mL (5.0-15.0) H 06/15/24 20:30 Random Vancomycin 17.2 ug/mL (0.0-15.0) H 06/16/24 20:17 Microbiology Microbiology: Microbiology 06/12/24 13:50 Wound - Ankle Gram Stain - Final 06/12/24 13:50 Wound - Ankle Wound Culture - Final Staphylococcus aureus 06/11/24 22:10 Urine, Clean Catch Urine Culture - Final Proteus mirabilis 06/11/24 21:30 Stool Stool Occult Blood (MERRICK) - Final Occult Blood Positive Dosing Weight Weight used for dosin kg Estimated Creatinine Clearance Estimated Creatinine Clearance: 39 Goal Trough Goal Trough: 15-20 mcg/mL Pharmacy Plan for Drug Dosing Pharmacy Plan for Drug Dosing: Vancomycin random level of 17.2 was within the target range of 15-20. Previous dosing had been held, so this was a 47.5hr level. Per dosing calculator, resuming 750mg q24h should give a trough of 17.1. This will be started now, and a trough drawn prior to third dose. Pharmacy Service will continue to monitor and adjust dosing as required. Follow-Up Labs Follow-Up Labs: Trough: Vancomycin Date/Time Labs Ordered Labs to be done on [date and time ordered]: 06/18/24 @3252
[2024-06-16] MEDS: Ceftriaxone 1 GM/50 ML BAG IV (21:42)
[2024-06-16] MEDS: 0.9% Saline Lock 10 ML Syringe IV (21:43)
[2024-06-16] MEDS: Vancomycin HCl 750 MG in 0.9% Normal Saline (250mL Bag) 250 ML 250 MG IV (23:01)
[2024-06-17] VITALS (16 sets, daily range): BP systolic 132–190; BP diastolic 49–110; PULSE 60–65; RESP 16–20; TEMP 36.4–36.8; O2SAT 93–100; BMI 19.9; BMI 20.5
[2024-06-17] MEDS: hydrALAZINE 20 MG/ML Vial 5 MG IV (05:56)
[2024-06-17] MEDS: 0.9% Saline Lock 10 ML Syringe IV (05:57)
[2024-06-17 07:01] LABS: Absolute Lymphocyte Count 0.72 X10^3/uL (0.83-4.51); Absolute Neutrophil Count 5.9 X10^3/uL (2.0-7.7); Basophil# 0.04 X10^3/uL; Basophil% 0.5 % (0-1); Eosinophil# 0.27 X10^3/uL; Eosinophils% 3.4 % (0-5); Hematocrit 31.8 % (40-54); Hemoglobin 9.7 g/dL (13.0-16.5); Lymphocyte # 0.72 X10^3/ul (0.83-4.51); Lymphocyte % 8.9 % (19-41); Mean Corp Hgb Conc 30.5 g/dL (32-36); Mean Corpuscular Hgb 31.5 pg (27.0-32.0); Mean Corpuscular Volume 103.2 fL (80-94); Mean Platelet Vol. 10.2 fl (6.2-12.0); Monocyte# 1.07 X10^3/uL; Monocyte% 13.3 % (0-10); NRBC Flagged by Analyzer 0.2 % (0-5); Neutrophil # 5.92 X10^3/uL (2.7-7.7); Neutrophil % 73.5 % (47-70); POSITIVE MORPHOLOGY YES; Platelet Count 309 K/mm3 (150-450); RBC Distribution Width CV 18.2 % (11.6-14.6); Red Blood Count 3.08 M/mm3 (4.6-6.2); White Blood Count 8.1 K/mm3 (4.4-11.0)
[2024-06-17 07:04] LABS: Differential Indicated SCAN CRITERIA MET
[2024-06-17 07:11] LABS: International Normalized Ratio 1.1
[2024-06-17 07:12] LABS: Partial Thromboplast Time 32.1 Seconds (24.1-36.2)
[2024-06-17 07:53] LABS: Anisocytosis 1+
[2024-06-17 08:34] LABS: Anion Gap 14 (5-15); BUN 14 mg/dL (4-19); BUN/Creat Ratio 12.7 RATIO (10-20); Calcium 8.8 mg/dL (7.6-11.0); Carbon Dioxide 28.2 mmol/L (22.0-29.0); Chloride 103 mmol/L (96-108); EST Glomerular Filtration Rate 64 (>60); Estimated Creatinine Clearance 41.86 ml/min (50-250); Glucose 83 mg/dL (70-99); Potassium 3.8 mmol/L (3.3-5.1); Sodium Level 145 mmol/L (133-145)
[2024-06-17] MEDS: Metoprolol Tartrate 50 MG Tablet 150 MG PO ×2 (08:52→21:13)
[2024-06-17] MEDS: 0.9% Normal Saline (1000mL) 1,000 ML 15 ML IV (13:00)
--- NOTE | 2024-06-17 13:00 | BON_PTH ---
PATIENT: JOAQUIN OLEARY LOC: [facility] U#:[id number] AGE/SX: 88/M ROOM: [facility] RE06/12/[address]: Dr. Miko Dennis DO : 1935 BED: 1 DIS: 06/20/2024 SPEC #: [id number] RECD: 06/17/24 14:13 STATUS: BRENNA REQ #: [id number] HIRAL: 06/17/24 13:[address]: Bill Garcia DEPT: SURGICAL PATHOLOGY RECD BY: Dixie Corley ENTERED: 06/18/24 10:49 SP TYPE: Bone OTHR DR: DO Dr. Dennys Mcdonald MD Dr. Eric Turney, MD Dr. Jeffrey Wunning, DPM DO Dr. Katharine Callahan MD Dr. Robert Leininger, MD Tissues: Ankle, NOS Procedures: Decalcification bone/plaque Surgery Specimen Level IV Comments: @ Ordering doctor for DEC edited from to @ by GARY at 06/18/24 1408 @ Ordering doctor for SUIV edited from to @ romel VEGA at 06/18/24 [id number] @ Submitting doctor edited from to @ romel VEGA at 06/18/24 1408 HEADER OPERATION: Ankle debridement of all nonviable, necrotic PRE-OP DIAGNOSIS: Non-pressure chronic ulcer of right ankle with necrosis of muscle, other specified peripheral vascular diseases, gangrene, not elsewhere classified, osteomyelitis of ankle, right, acute TISSUE SUBMITTED: Bone from lateral malleolus - right MICROSCOPIC DIAGNOSIS Bone, right lateral malleolus, core biopsy: * Fibrosis and reactive/degenerative changes consistent with chronic osteomyelitis. MICROSCOPIC DESCRIPTION Slides are reviewed. GROSS DESCRIPTION Received in formalin labeled with the patient's name Ramesh Joaquin and designated bone from lateral malleolus-right is a galvan-brown, granular, cylindrical, bony tissue core that measures 1.1 cm long by 0.4 cm in diameter. Totally submitted in one cassette after decalcification.JK. 06/18/2024 TC: CPT:97037,90569
--- NOTE | 2024-06-17 13:43 | ANES.CONFIRM ---
Anesthesia: Confirm Documents Multiple Procedures on Account (2) Confirmed Documents: Yes
--- NOTE | 2024-06-17 13:49 | PCM.PROGNOTE ---
Subjective Subjective Patient seen and examined. He had no active complaints. Patient was quite lucid but did have intermittent confusion. He denied any fever or chills, palpitation, dizziness, nausea vomiting or any other symptoms. Review of systems otherwise negative. He is on 2 L of oxygen. He is due for surgery by podiatry today. Objective Data Objective Data Vital Signs: Vital Signs Temp Pulse Resp BP Pulse Ox O2 Del Method O2 Flow Rate 98.1 F 60 18 153/62 H 100 Nasal Cannula 2 06/17/24 08:49 06/17/24 13:30 06/17/24 13:30 06/17/24 13:30 06/17/24 13:30 06/17/24 13:30 06/17/24 13:30 FiO2 30 06/15/24 04:38 Oxygen Flow Rate (L/min) 2 Oxygen Delivery Method Nasal Cannula Weight: 143 lb 4.807 oz Body Mass Index (BMI) 20.5 Intake & Output: Intake and Output for Last 24 Hours 06/15/24 06/16/24 06/17/24 23:59 23:59 23:59 Intake Total 568.5 / 618.5 150 / 150 265 / 265 Output Total 1950 / 2200 1300 / 1300 550 / 550 Balance -1381.5 / -1581.5 -1150 / -1150 -285 / -285 Lab / Micro Data 06/17/24 06:21 06/17/24 06:21 Labs: Laboratory Results - last 24 hr 06/16/24 20:17: Random Vancomycin 17.2 H 06/17/24 06:21: WBC 8.1, RBC 3.08 L, Hgb 9.7 L, Hct 31.8 L, MCV 103.2 H, MCH 31.5, MCHC 30.5 L, RDW Std Deviation 68.0 H, RDW Coeff of Ayesha 18.2 H, Plt Count 309, MPV 10.2, Immature Gran % (Auto) 0.400, Neut % (Auto) 73.5 H, Lymph % (Auto) 8.9 L, [place] % (Auto) 13.3 H, Eos % (Auto) 3.4, Baso % (Auto) 0.5, Absolute Neuts (auto) 5.9, Absolute Lymphs (auto) 0.72 L, Nucleated RBC % 0.2, Anisocytosis 1+, PT 14.0, INR 1.1, APTT 32.1, Sodium 145, Potassium 3.8, Chloride Direct 103, Carbon Dioxide 28.2, Anion Gap 14, BUN 14, Creatinine 1.10, Estim Creat Clear Calc 41.86 L, Est GFR (MDRD) Non-Af 64, BUN/Creatinine Ratio 12.7, Glucose 83, Calcium 8.8 Micro: Microbiology 06/12/24 13:50 Wound - Ankle Gram Stain - Final 06/12/24 13:50 Wound - Ankle Wound Culture - Final Staphylococcus aureus 06/11/24 22:10 Urine, Clean Catch Urine Culture - Final Proteus mirabilis 06/11/24 21:30 Stool Stool Occult Blood (MERRICK) - Final Occult Blood Positive Physical Exam Const alert, no apparent distress and well nourished Constitutional Narrative: alert and oriented to self, place and person. General Appearance: cooperative HEENT normocephalic, head/scalp atraumatic, moist oral mucous membranes and oropharynx normal Eyes PERRL and EOMs intact bilaterally Neck no lymphadenopathy and supple Lymph Lymphatic: no lymphadenopathy noted Resp Resp Narrative: mildly diminished breath sounds bibasally, no wheezes or crackles. On 2L of oxygen by nasal canula. Cardio regular rate, regular rhythm, S1 normal heart sound, S2 normal heart sound and no murmurs GI normal to inspection, nondistended, normoactive bowel sounds, soft to palpation, non-tender and non-distended Extremity Extremity Narrative: bilateral LE edema Skin Skin Narrative: feet wrapped in bandage Neuro CN's II-XII intact bilaterally, no focal motor deficits and no sensory deficits noted Motor Exam: general weakness Psych thought process normal, cooperative and affect normal Appearance: appropriate Assessment & Plan Assessment/Plan (1) Osteomyelitis of ankle, right, acute: (2) Hypoxia: PLAN: Plan #Acute hypoxia due to HFpEF and pulmonary hypertension Currently on 2 L of oxygen. On Lasix. Breathing treatments bronchodilators. Titrate oxygen to maintain saturation above 90%. #UTI due to Proteus: On vancomycin and ceftriaxone. ID on board. #Right ankle osteomyelitis: For I&D with podiatry today. On IV vancomycin and ceftriaxone. #Severe peripheral vascular disease Aspirin and Plavix currently held and to be resumed after surgery once okay with podiatry. CTA with runoff showed moderate to severe atherosclerotic disease throughout the arterial system with severe right lower extremity disease showing an occluded superficial femoral artery stents and occlusions in the popliteal and infrapopliteal arteries with reconstitution of the popliteal artery distally on the right and left lower extremity with patent stents and single one-vessel runoff of the posterior tibial artery and moderate bilateral pleural effusions. Will need follow-up with vascular surgery on outpatient basis. #Bilateral pleural effusions: On IV Lasix 40 mg daily. Currently on 2 L of oxygen. #Neurocognitive and impairment with episodic hallucinations. Stable. #Benign essential hypertension: Lisinopril held. On metoprolol. On IV Lasix. # Hyperlipidemia: On statin #Atrial fibrillation with history of sick sinus syndrome s/p pacemaker On metoprolol and amiodarone. Not anticoagulated due to fall risk. #GERD: On PPI #Depression: #History of prostate cancer, s/p prostatectomy. #Debility and weakness: PT OT on board. DVT prophylaxis: On Lovenox Disposition: To discharge back to his [facility] once medically stable. Charges/Coding Visit Charges Inpatient E&M: 05557 Subs Hosp L2
[2024-06-17] MEDS: Bupivacaine Mpf 0.5% 30 ML VIAL (13:56)
--- NOTE | 2024-06-17 14:04 | PCM.OPRPT ---
Operative Report (Standard) Operative Information Date of Procedure: 06/17/24 Pre-Operative Diagnosis: Ulceration down to bone right ankle Post-Operative Diagnosis: Same Surgery/Procedure Performed: Debridement of right ankle ulceration down to and including bone regional clinical director: No Type of Anesthesia: Local RN Documented Start/Stop Times: Operation Date: 06/17/24 13:00 Case Time Into Pre-Op 06/17/24 12:00 Out of Pre-Op 06/17/24 13:07 Into Room 06/17/24 13:15 Procedure Start 06/17/24 13:39 Procedure End 06/17/24 13:57 Anesthesia End 06/17/24 14:02 Out of Room 06/17/24 14:02 Into Phase II Recovery 06/17/24 14:10 Out of Phase II 06/17/24 14:32 Procedure Start Time: 13:39 Procedure Stop Time: 13:57 Select all DRAINS/GRAFTS/IMPLANTS that apply: None Estimated Blood Loss: 1mL Specimen collected: Yes Description of specimen(s) removed: Bone from right lateral malleolus sent to pathology and microbiology Description of surgery: Indications: 88 year old gentleman with many medical problems has a ulceration to his lateral right ankle, there is evidence of infection and ulceration is deep, there is nonviable tissue and cellulitis with drainage present. There is concern for osteomyelitis to the lateral malleolus, right ankle. He has poor circulation (PAD) and followed by vascular surgery who gave ok to proceed with surgical debridement of ulceration from vascular standpoint. Patient is also followed by Infectious Disease and he is on IV antibiotic therapy. Debridement of all nonviable, infected and necrotic soft tissue and bone from his right ankle was discussed with him, as well as with his family with patient's consent (son and daughter - who are involved in his care) - reviewed rationale of procedure, possible benefits vs risks, goals, and expectations. The consent form was reviewed with patient and he freely signed it. All of their questions were answered and they were all in agreement with the procedure. Also spoke with hospital medicine - Dr. Callahan and from medical standpoint ok to proceed. No guarantees or warranties were given nor implied. Operative Procedure: The patient was brought back into the operating room and he stayed in his hopsital bed comfortably. The skin around his right ankle was cleansed with 70% Isopropyl alcohol and a total of 7mL of 0.5% Bupivcaine plain was given as a local nerve block around the right ankle. The right foot and ankle were scrubbed, prepped, and draped in the usual aseptic fashion. A timeout was performed and the patient was properly identified and the surgical plan was confirmed. Further attention was directed to his right ankle where again there was a deep ulceration and it was noted to be down to and including the peroneal tendons and to the bone of the lateral malleolus. The peroneal tendons in this area were necrotic and nonviable and there was nonviable and necrotic subcutaneous tissue to the site was well, the superficial layer of the lateral malleolus bone also did appear nonviable. The nonviable and necrotic subcutaneous and tendon tissue was debrided in excisional fashion using a 15 blade and a sharp curette, and the bone was debrided using the sharp curette and bone cutting rongeur in excisional fashion. A sample of bone was obtained using a Yovanny bone biopsy trocar and this was sent to pathology and microbiology as specimen as a bone biopsy for further evaluation of osteomyelitis. The bone was softer than normal and more yellow in appearance concerning for osteomyelitis. The area debrided measured: 3cm x 1.8cm and down to and including subcutaneous tissue, tendon, and bone as noted above - this was debrided in excisional fashion. The site was flushed out with copious amounts of normal saline solution. The tissues appears much healthier at this time, but there was very little bleeding (no tourniquet was used) consistent with his peripheral arterial disease. A dressing was applied which consisted of betadine soaked adaptic, 4x4 gauze, kerlix and pooja dressing in noncompressive fashion. The patient tolerated the above procedure well with no complications. He was transported back to his room in the hospital, and will be continued to be followed as an inpatient. I did review the details of the procedure with patient's daughter Rene and son Wesley. Surgical Findings: As noted above Complications Complications: No
[2024-06-17] MEDS: Memantine Hydrochloride 10 MG Tablet PO ×2 (14:50→21:13)
[2024-06-17] MEDS: Furosemide 40 MG/4 ML Vial IV (14:50)
[2024-06-17] MEDS: DULoxetine Hcl 30 MG Capsule PO (14:50)
[2024-06-17] MEDS: Pantoprazole Sodium 40 MG Tablet PO (14:50)
[2024-06-17] MEDS: Amiodarone 200 MG Tablet PO (14:51)
--- NOTE | 2024-06-17 15:25 | RAD_ITS ---
PROCEDURE: Right ANKLE MIN 3 VIEWS REASON FOR EXAM: Status post ulcer debridement and bone biopsy. TECHNIQUE: 3 views of the right ankle COMPARISON: 06/12/2024. FINDINGS: No acute fracture or dislocation is identified. Degenerative changes are present with diminished bone mineralization. There is soft tissue irregularity along the lateral aspect likely on a recent postprocedural basis. Vascular calcifications are identified. Calcaneal spurring is identified. RAD/Ankle min 3 Views IMPRESSION: Postprocedural changes as above. Reading Location: [facility]
[2024-06-17] MEDS: Vancomycin HCl 750 MG in 0.9% Normal Saline (250mL Bag) 250 ML 250 MG IV (21:08)
[2024-06-17] MEDS: 0.9% Normal Saline (100mL Bag) 100 ML 15 ML IV (21:08)
[2024-06-17] MEDS: Atorvastatin Calcium 20 MG Tablet PO (21:13)
[2024-06-17] MEDS: Mirtazapine 15 MG Tablet PO (21:13)
[2024-06-17] MEDS: Ceftriaxone 1 GM/50 ML BAG IV (21:15)
[2024-06-18] VITALS (9 sets, daily range): BP systolic 110–188; BP diastolic 57–86; PULSE 61–67; RESP 11–16; TEMP 36.3–36.8; O2SAT 86–100; BMI 20.5
[2024-06-18 07:26] LABS: Absolute Lymphocyte Count 0.46 X10^3/uL (0.83-4.51); Absolute Neutrophil Count 7.1 X10^3/uL (2.0-7.7); Basophil# 0.05 X10^3/uL; Basophil% 0.6 % (0-1); Eosinophil# 0.21 X10^3/uL; Eosinophils% 2.4 % (0-5); Hematocrit 32.8 % (40-54); Hemoglobin 9.8 g/dL (13.0-16.5); Lymphocyte # 0.46 X10^3/ul (0.83-4.51); Lymphocyte % 5.2 % (19-41); Mean Corp Hgb Conc 29.9 g/dL (32-36); Mean Corpuscular Hgb 31.8 pg (27.0-32.0); Mean Corpuscular Volume 106.5 fL (80-94); Mean Platelet Vol. 10.2 fl (6.2-12.0); Monocyte# 1.07 X10^3/uL; NRBC Flagged by Analyzer 0 % (0-5); Neutrophil # 7.07 X10^3/uL (2.7-7.7); Neutrophil % 79.4 % (47-70); POSITIVE DIFFERENTIAL YES; POSITIVE MORPHOLOGY YES; Platelet Count 276 K/mm3 (150-450); RBC Distribution Width SD 70.5 fl (35.1-43.9); Red Blood Count 3.08 M/mm3 (4.6-6.2); White Blood Count 8.9 K/mm3 (4.4-11.0)
[2024-06-18 07:33] LABS: Differential Indicated SCAN CRITERIA MET
--- NOTE | 2024-06-18 08:15 | PN.SURG_ITS ---
Subjective Subjective Patient seen this afternoon sleeping in bed, easily awoke to his name but drowsy. He reports his RLE is feeling OK today. He had operative debridement by Dr. Garcia yesterday, Dr. Garcia reported there was reduced bleeding at the site and it is to bone. He did present with LGIB and had colonoscopy with treatment of angiodysplastic lesions. His antiplatelet therapy is still on hold. Objective Data Objective Data Vital Signs: Vital Signs Temp Pulse Resp BP Pulse Ox O2 Del Method O2 Flow Rate 98.2 F 67 16 145/86 H 100 Nasal Cannula 2 06/18/24 03:45 06/18/24 03:45 06/18/24 03:45 06/18/24 03:45 06/18/24 03:45 06/18/24 03:45 06/18/24 03:45 FiO2 30 06/15/24 04:38 Oxygen Flow Rate (L/min) 2 Oxygen Delivery Method Nasal Cannula Weight: 143 lb 8.335 oz Body Mass Index (BMI) 20.5 Intake & Output: Intake and Output for Last 24 Hours 06/16/24 06/17/24 06/18/24 23:59 23:59 23:59 Intake Total 150 / 150 607 / 607 250 / 250 Output Total 1300 / 1300 1650 / 1650 800 / 800 Balance -1150 / -1150 -1043 / -1043 -550 / -550 Lab / Micro Data 06/18/24 06:28 06/18/24 06:28 Labs: Laboratory Results - last 24 hr 06/17/24 06:21: Sodium 145, Potassium 3.8, Chloride Direct 103, Carbon Dioxide 28.2, Anion Gap 14, BUN 14, Creatinine 1.10, Estim Creat Clear Calc 41.86 L, Est GFR (MDRD) Non-Af 64, BUN/Creatinine Ratio 12.7, Glucose 83, Calcium 8.8 06/18/24 06:28: WBC 8.9, RBC 3.08 L, Hgb 9.8 L, Hct 32.8 L, MCV 106.5 H, MCH 31.8, MCHC 29.9 L, RDW Std Deviation 70.5 H, RDW Coeff of Ayesha 18.0 H, Plt Count 276, MPV 10.2, Immature Gran % (Auto) 0.400, Neut % (Auto) 79.4 H, Lymph % (Auto) 5.2 L, [place] % (Auto) 12.0 H, Eos % (Auto) 2.4, Baso % (Auto) 0.6, Absolute Neuts (auto) 7.1, Absolute Lymphs (auto) 0.46 L, Nucleated RBC % 0 Micro: Microbiology 06/17/24 13:30 Bone - Ankle Gram Stain - Final 06/12/24 13:50 Wound - Ankle Gram Stain - Final 06/12/24 13:50 Wound - Ankle Wound Culture - Final Staphylococcus aureus 06/11/24 22:10 Urine, Clean Catch Urine Culture - Final Proteus mirabilis 06/11/24 21:30 Stool Stool Occult Blood (MERRICK) - Final Occult Blood Positive Radiography Diagnostic Testing: Radiology Impression Ankle X-Ray 06/17/24 15:25 IMPRESSION: Postprocedural changes as above. Reading Location: [facility] Physical Exam Const Constitutional Narrative: drowsy, sleeping HEENT head/scalp atraumatic, external ears normal and external nose normal Eyes General Eye: normal appearance of both eyes Resp normal respiratory effort, no retractions and no use of accessory muscles Cardio regular rate and regular rhythm Extremity Extremity Narrative: R foot/lower leg with wound dressings in place, C/D/I Assessment & Plan Assessment/Plan (1) Non-pressure chronic ulcer of right ankle with necrosis of muscle: (2) Foot ulcer, right: QUALIFIERS: Non-pressure ulcer stage: with fat layer exposed Q ualified Code(s): L97.512 - Non-pressure chronic ulcer of other part of right foot with fat layer exposed (3) Peripheral arterial occlusive disease: PLAN: Plan CTA demonstrated SFA/popliteal occlusion with distal reconstitution. Reviewed wound pictures in chart, wound appears more favorable following debridement but still likely to need revascularization to allow for healing. Would plan for follow-up and angiogram on an outpatient basis likely in a few weeks to allow time for him to restart dual antiplatelet therapy and ensure he can tolerate this without adverse bleeding prior to angiogram. Called and discussed the above with patient's son Wesley. He stated that they are considering returning to for ongoing vascular follow-up and intervention after all which I expressed would certainly be reasonable. Prior to his admission, he already had outpatient follow-up with them on 07/03 with plans to discuss moving forward with RLE intervention there. All of his questions were answered to his satisfaction. I advised that we will continue to be available to assist with his care as needed while he is here and otherwise they may call our office if they decide they would like to transition care here in the future. Charges/Coding Visit Charges Inpatient E&M: 61642 Subs Hosp L1
[2024-06-18 08:58] LABS: Anion Gap 18 (5-15); BUN 20 mg/dL (4-19); BUN/Creat Ratio 19.5 RATIO (10-20); Calcium,Total 8.6 mg/dL (7.6-11.0); Carbon Dioxide 24.2 mmol/L (21.0-32.0); Chloride 100 mmol/L (98-108); Creatinine, Serum 1.03 mg/dL (0.70-1.20); EST Glomerular Filtration Rate 69 (>60); Estimated Creatinine Clearance 44.77 ml/min (50-250); Glucose 69 mg/dL (70-99); Potassium 3.5 mmol/L (3.3-5.1); Sodium Level 142 mmol/L (133-145)
[2024-06-18 09:40] LABS: Anisocytosis 1+; Platelet Estimate A (ADEQ); Polychromasia 1+
--- NOTE | 2024-06-18 10:23 | PCM.PN.ID ---
Physical Exam Narrative Sleeping this AM, no fever Const no apparent distress Orientation / Consciousness: lethargic Resp normal air movement and clear to auscultation bilaterally Cardio regular rate and regular rhythm GI soft to palpation, non-tender and non-distended Skin Skin Narrative: RLE wrapped ID ID: Route of nutrition/ use of supplements: [] Nutritional Intake: [] IV Site: [] Diana Catheter: [] Assessment & Plan Assessment/Plan (1) Osteomyelitis of ankle, right, acute: PLAN: Wound cx with MSSA. Ucx with proteus. Has prior h/o MSSA 02/2024. Taken to OR 06/17/[address] Garcia for debridement involving bone. Will narrow abx to cefazolin. Tentative plan on 6 weeks po abx at discharge. Will follow (2) Other specified peripheral vascular diseases:
[2024-06-18] MEDS: Memantine Hydrochloride 10 MG Tablet PO ×2 (10:26→21:08)
[2024-06-18] MEDS: Enoxaparin 40 MG/0.4 ML Syringe SC (10:26)
[2024-06-18] MEDS: Pantoprazole Sodium 40 MG Tablet PO (10:26)
[2024-06-18] MEDS: DULoxetine Hcl 30 MG Capsule PO (10:26)
[2024-06-18] MEDS: Amiodarone 200 MG Tablet PO (10:26)
[2024-06-18] MEDS: Metoprolol Tartrate 50 MG Tablet 150 MG PO ×2 (10:26→21:08)
[2024-06-18] MEDS: Furosemide 40 MG/4 ML Vial IV (10:26)
--- NOTE | 2024-06-18 11:26 | WOUNDNOTE ---
wound photo: right foot
--- NOTE | 2024-06-18 11:27 | WOUNDNOTE ---
wound photo: right lateral ankle
[2024-06-18] MEDS: 0.9% Saline Lock 10 ML Syringe IV ×2 (13:12→21:11)
[2024-06-18] MEDS: Cefazolin 2 GM in Syringe IV ×2 (13:12→21:07)
--- NOTE | 2024-06-18 14:10 | PCM.PROGNOTE ---
Subjective Subjective Patient was seen for follow up on right ankle - he is in bed eating lunch, no new complaints, no complaints of f/c/n/v. Objective Data Objective Data Vital Signs: Vital Signs Temp Pulse Resp BP Pulse Ox O2 Del Method O2 Flow Rate 98 F 64 17 141/62 H 98 Nasal Cannula 2 06/19/24 02:47 06/19/24 02:47 06/19/24 02:47 06/19/24 02:47 06/19/24 02:47 06/19/24 02:49 06/19/24 02:49 FiO2 30 06/15/24 04:38 Oxygen Flow Rate (L/min) 2 Oxygen Delivery Method Nasal Cannula Weight: 65 kg Body Mass Index (BMI) 20.5 Intake & Output: Intake and Output for Last 24 Hours 06/17/24 06/18/24 06/19/24 23:59 23:59 23:59 Intake Total 607 / 607 540 / 540 20 / 20 Output Total 1650 / 1650 1999 / 1999 400 / 400 Balance -1043 / -1043 -1460 / -1460 -380 / -380 Lab / Micro Data 06/19/24 04:54 06/19/24 06:55 Labs: Laboratory Results - last 24 hr 06/18/24 06:28: Platelet Estimate A, Polychromasia 1+, Anisocytosis 1+, Sodium 142, Potassium 3.5, Chloride 100, Carbon Dioxide 24.2, Anion Gap 18 H, BUN 20 H, Creatinine 1.03, Estim Creat Clear Calc 44.77 L, Est GFR (MDRD) Non-Af 69, BUN/Creatinine Ratio 19.5, Glucose 69 L, Calcium 8.6 06/19/24 04:54: WBC 7.6, RBC 3.06 L, Hgb 10.0 L, Hct 31.2 L, MCV 102.0 H, MCH 32.7 H, MCHC 32.1 D, RDW Std Deviation 65.4 H, RDW Coeff of Ayesha 17.5 H, Plt Count 342, MPV 9.8, Immature Gran % (Auto) 0.700, Neut % (Auto) 73.9 H, Lymph % (Auto) 7.9 L, [place] % (Auto) 12.6 H, Eos % (Auto) 4.5, Baso % (Auto) 0.4, Absolute Neuts (auto) 5.6, Absolute Lymphs (auto) 0.60 L, Nucleated RBC % 0, Sodium 142, Potassium 3.8, Chloride 101, Carbon Dioxide 30.6, Anion Gap 11, BUN 30 H, Creatinine 1.16, Estim Creat Clear Calc 39.75 L, Est GFR (MDRD) Non-Af 60, BUN/Creatinine Ratio 26.0 H, Glucose 99, Calcium 8.9 06/19/24 06:55: BUN 29 H Micro: Microbiology 06/17/24 13:30 Bone - Ankle Gram Stain - Final 06/17/24 13:30 Bone - Ankle Wound Culture - Preliminary No growth-Final to follow 06/17/24 13:30 Bone - Ankle Anaerobic Culture - Preliminary No growth in 48 hours. 06/12/24 13:50 Wound - Ankle Gram Stain - Final 06/12/24 13:50 Wound - Ankle Wound Culture - Final Staphylococcus aureus 06/11/24 22:10 Urine, Clean Catch Urine Culture - Final Proteus mirabilis 06/11/24 21:30 Stool Stool Occult Blood (MERRICK) - Final Occult Blood Positive Physical Exam Const alert and no apparent distress Assessment & Plan Assessment/Plan (1) Non-pressure chronic ulcer of right ankle with necrosis of muscle: (2) Other specified peripheral vascular diseases: (3) Gangrene, not elsewhere classified: (4) Osteomyelitis of ankle, right, acute: PLAN: Plan Evaluation performed. s/p right ankle ulcer debridement on 06/17/2024 A culture has been obtained right ankle ulceration - MSSA. Bone biopsy results pending. Patient is on antibiotics with Infectious Disease on consult. PAD: vascular surgery on consult. Wound care - betadine soln to right ankle ulceration and gauze dressing changes daily. Keep offloaded at all times. Podiatry will continue to follow.
--- NOTE | 2024-06-18 14:31 | PN_ITS ---
Subjective Subjective Patient seen and examined. He was initially quite drowsy but subsequently was able to wake up and answer a few questions though he remained lethargic. He is s/p debridement of his lower extremity ulcers by podiatry yesterday. Pain is well-controlled. Review of systems otherwise negative. He has remained hemodynamically stable. Objective Data Objective Data Vital Signs: Vital Signs Temp Pulse Resp BP Pulse Ox O2 Del Method O2 Flow Rate 98.0 F 61 11 L 110/57 L 100 Nasal Cannula 2 06/18/24 10:24 06/18/24 10:26 06/18/24 10:24 06/18/24 11:45 06/18/24 10:24 06/18/24 13:14 06/18/24 13:14 FiO2 30 06/15/24 04:38 Oxygen Flow Rate (L/min) 2 Oxygen Delivery Method Nasal Cannula Weight: 143 lb 8.335 oz Body Mass Index (BMI) 20.5 Intake & Output: Intake and Output for Last 24 Hours 06/16/24 06/17/24 06/18/24 23:59 23:59 23:59 Intake Total 150 / 150 607 / 607 320 / 320 Output Total 1300 / 1300 1650 / 1650 1400 / 1400 Balance -1150 / -1150 -1043 / -1043 -1080 / -1080 Lab / Micro Data 06/18/24 06:28 06/18/24 06:28 Labs: Laboratory Results - last 24 hr 06/18/24 06:28: WBC 8.9, RBC 3.08 L, Hgb 9.8 L, Hct 32.8 L, MCV 106.5 H, MCH 31.8, MCHC 29.9 L, RDW Std Deviation 70.5 H, RDW Coeff of Ayesha 18.0 H, Plt Count 276, MPV 10.2, Immature Gran % (Auto) 0.400, Neut % (Auto) 79.4 H, Lymph % (Auto) 5.2 L, [place] % (Auto) 12.0 H, Eos % (Auto) 2.4, Baso % (Auto) 0.6, Absolute Neuts (auto) 7.1, Absolute Lymphs (auto) 0.46 L, Nucleated RBC % 0, Platelet Estimate A, Polychromasia 1+, Anisocytosis 1+, Sodium 142, Potassium 3.5, Chloride 100, Carbon Dioxide 24.2, Anion Gap 18 H, BUN 20 H, Creatinine 1.03, Estim Creat Clear Calc 44.77 L, Est GFR (MDRD) Non-Af 69, BUN/Creatinine Ratio 19.5, Glucose 69 L, Calcium 8.6 Micro: Microbiology 06/17/24 13:30 Bone - Ankle Gram Stain - Final 06/17/24 13:30 Bone - Ankle Wound Culture - Preliminary No growth-Final to follow 06/12/24 13:50 Wound - Ankle Gram Stain - Final 06/12/24 13:50 Wound - Ankle Wound Culture - Final Staphylococcus aureus 06/11/24 22:10 Urine, Clean Catch Urine Culture - Final Proteus mirabilis 06/11/24 21:30 Stool Stool Occult Blood (MERRICK) - Final Occult Blood Positive Radiography Diagnostic Testing: Radiology Impression Ankle X-Ray 06/17/24 15:25 IMPRESSION: Postprocedural changes as above. Reading Location: [facility] Physical Exam Const alert, oriented x3, no apparent distress, healthy appearing and well nourished Constitutional Narrative: alert and oriented to self, place and person. General Appearance: cooperative Orientation / Consciousness: lethargic HEENT normocephalic, head/scalp atraumatic, hearing grossly normal bilaterally, moist oral mucous membranes and oropharynx normal Eyes PERRL, EOMs intact bilaterally and conjunctivae normal Neck no lymphadenopathy, supple and No no JVD Neck Narrative: Lymph Lymphatic: no lymphadenopathy noted Resp No normal respiratory effort, no retractions, no use of accessory muscles and No clear to auscultation bilaterally Resp Narrative: mildly diminished breath sounds bibasally, no wheezes or crackles. On 2L of oxygen by nasal canula. Auscultation: crackles; Negative for rales, rhonchi or wheezes Cardio regular rate, regular rhythm, S1 normal heart sound, S2 normal heart sound, no murmurs, no rub, no gallops and no clicks Cardio Narrative: 2 out of 6 systolic murmur loudest at right upper sternal border GI normal to inspection, nondistended, normoactive bowel sounds, soft to palpation, non-tender and non-distended GI Narrative: Scaphoid abdomen Extremity normal to inspection, full ROM and no clubbing, cyanosis or edema Extremity Narrative: bilateral LE edema Skin Skin Narrative: feet wrapped in bandage Neuro oriented x3, CN's II-XII intact bilaterally, moves all extremities, no focal motor deficits and no sensory deficits noted Neuro Narrative: Severe generalized weakness but no focal deficits noted Sensorium / Orientation: awake, alert and oriented to person Speech: speech normal Motor Exam: general weakness Psych thought process normal, cooperative and affect normal Psych Narrative: Extremely pleasant Appearance: appropriate Assessment & Plan Assessment/Plan (1) Osteomyelitis of ankle, right, acute: (2) Hypoxia: PLAN: Plan #Acute hypoxia due to HFpEF and pulmonary hypertension * Currently on 2 L of oxygen. On Lasix. Breathing treatments bronchodilators. Titrate oxygen to maintain saturation above 90%. #UTI due to Proteus: On vancomycin and ceftriaxone. ID on board. #Right ankle osteomyelitis: For I&D with podiatry today. On IV vancomycin and ceftriaxone. #Severe peripheral vascular disease * Aspirin and Plavix currently held and to be resumed after surgery once okay with podiatry. CTA with runoff showed moderate to severe atherosclerotic disease throughout the arterial system with severe right lower extremity disease showing an occluded superficial femoral artery stents and occlusions in the popliteal and infrapopliteal arteries with reconstitution of the popliteal artery distally on the right and left lower extremity with patent stents and single one-vessel runoff of the posterior tibial artery and moderate bilateral pleural effusions. * Will need follow-up with vascular surgery on outpatient basis. #Bilateral pleural effusions: On IV Lasix 40 mg daily. Currently on 2 L of oxygen. #Neurocognitive and impairment with episodic hallucinations. Stable. #Benign essential hypertension: Lisinopril held. On metoprolol. On IV Lasix. # Hyperlipidemia: On statin #Atrial fibrillation with history of sick sinus syndrome s/p pacemaker * On metoprolol and amiodarone. Not anticoagulated due to fall risk. #GERD: On PPI #Depression: #History of prostate cancer, s/p prostatectomy. #Debility and weakness: PT OT on board. DVT prophylaxis: On Lovenox Disposition: To discharge back to his long-term [facility] once medically stable. *
[2024-06-18] MEDS: Atorvastatin Calcium 20 MG Tablet PO (21:08)
[2024-06-18] MEDS: Mirtazapine 15 MG Tablet PO (21:08)
[2024-06-19] VITALS (8 sets, daily range): BP systolic 121–160; BP diastolic 52–77; PULSE 59–64; RESP 15–18; TEMP 36.5–36.6; O2SAT 96–99; BMI 20.5
[2024-06-19] MEDS: Cefazolin 2 GM in Syringe IV ×3 (05:09→21:31)
[2024-06-19 05:18] LABS: Absolute Neutrophil Count 5.6 X10^3/uL (2.0-7.7); Basophil# 0.03 X10^3/uL; Basophil% 0.4 % (0-1); Eosinophil# 0.34 X10^3/uL; Eosinophils% 4.5 % (0-5); Hematocrit 31.2 % (40-54); Lymphocyte % 7.9 % (19-41); Mean Corp Hgb Conc 32.1 g/dL (32-36); Mean Corpuscular Hgb 32.7 pg (27.0-32.0); Mean Platelet Vol. 9.8 fl (6.2-12.0); Monocyte# 0.95 X10^3/uL; Monocyte% 12.6 % (0-10); NRBC Flagged by Analyzer 0 % (0-5); Neutrophil # 5.58 X10^3/uL (2.7-7.7); Neutrophil % 73.9 % (47-70); POSITIVE DIFFERENTIAL YES; POSITIVE MORPHOLOGY YES; Platelet Count 342 K/mm3 (150-450); RBC Distribution Width CV 17.5 % (11.6-14.6); RBC Distribution Width SD 65.4 fl (35.1-43.9); Red Blood Count 3.06 M/mm3 (4.6-6.2); White Blood Count 7.6 K/mm3 (4.4-11.0)
[2024-06-19 05:22] LABS: Differential Indicated SCAN CRITERIA MET
[2024-06-19 06:02] LABS: Anion Gap 11 (5-15); BUN 30 mg/dL (4-19); Calcium,Total 8.9 mg/dL (7.6-11.0); Carbon Dioxide 30.6 mmol/L (21.0-32.0); Chloride 101 mmol/L (98-108); Creatinine, Serum 1.16 mg/dL (0.70-1.20); EST Glomerular Filtration Rate 60 (>60); Estimated Creatinine Clearance 39.75 ml/min (50-250); Glucose 99 mg/dL (70-99); Potassium 3.8 mmol/L (3.3-5.1); Sodium Level 142 mmol/L (133-145)
[2024-06-19 07:49] LABS: BUN 29 mg/dL (4-19)
[2024-06-19] MEDS: Metoprolol Tartrate 50 MG Tablet 150 MG PO ×2 (09:07→21:35)
[2024-06-19] MEDS: Amiodarone 200 MG Tablet PO (09:07)
[2024-06-19] MEDS: Furosemide 40 MG/4 ML Vial IV (09:08)
[2024-06-19] MEDS: Memantine Hydrochloride 10 MG Tablet PO ×2 (09:08→21:35)
[2024-06-19] MEDS: Pantoprazole Sodium 40 MG Tablet PO (09:08)
[2024-06-19] MEDS: 0.9% Saline Lock 10 ML Syringe IV ×2 (09:08→13:36)
[2024-06-19] MEDS: Enoxaparin 40 MG/0.4 ML Syringe SC (09:08)
[2024-06-19] MEDS: DULoxetine Hcl 30 MG Capsule PO (09:08)
[2024-06-19] MEDS: 0.9% Normal Saline (1000mL) 1,000 ML 15 ML IV (12:29)
--- NOTE | 2024-06-19 14:21 | PCM.PROGNOTE ---
Subjective Subjective Patient seen and examined. He is more alert today and communicative. He had no active complaints. He is on 2 L of oxygen. Review of systems otherwise negative. He has remained hemodynamically stable. Objective Data Objective Data Vital Signs: Vital Signs Temp Pulse Resp BP Pulse Ox O2 Del Method O2 Flow Rate 98 F 61 16 160/77 H 96 Nasal Cannula 2 06/19/24 09:05 06/19/24 09:07 06/19/24 09:05 06/19/24 09:05 06/19/24 09:05 06/19/24 10:00 06/19/24 10:00 FiO2 30 06/15/24 04:38 Oxygen Flow Rate (L/min) 2 Oxygen Delivery Method Nasal Cannula Weight: 143 lb 4.807 oz Body Mass Index (BMI) 20.5 Intake & Output: Intake and Output for Last 24 Hours 06/17/24 06/18/24 06/19/24 23:59 23:59 23:59 Intake Total 607 / 607 540 / 540 Output Total 1650 / 1650 1999 / 1999 400 / 400 Balance -1043 / -1043 -1460 / -1460 -380 / -380 Lab / Micro Data 06/19/24 04:54 06/19/24 06:55 Labs: Laboratory Results - last 24 hr 06/19/24 04:54: WBC 7.6, RBC 3.06 L, Hgb 10.0 L, Hct 31.2 L, MCV 102.0 H, MCH 32.7 H, MCHC 32.1 D, RDW Std Deviation 65.4 H, RDW Coeff of Ayesha 17.5 H, Plt Count 342, MPV 9.8, Immature Gran % (Auto) 0.700, Neut % (Auto) 73.9 H, Lymph % (Auto) 7.9 L, Faulk % (Auto) 12.6 H, Eos % (Auto) 4.5, Baso % (Auto) 0.4, Absolute Neuts (auto) 5.6, Absolute Lymphs (auto) 0.60 L, Nucleated RBC % 0, Sodium 142, Potassium 3.8, Chloride 101, Carbon Dioxide 30.6, Anion Gap 11, BUN 30 H, Creatinine 1.16, Estim Creat Clear Calc 39.75 L, Est GFR (MDRD) Non-Af 60, BUN/Creatinine Ratio 26.0 H, Glucose 99, Calcium 8.9 06/19/24 06:55: BUN 29 H Micro: Microbiology 06/17/24 13:30 Bone - Ankle Gram Stain - Final 06/17/24 13:30 Bone - Ankle Wound Culture - Preliminary No growth-Final to follow 06/17/24 13:30 Bone - Ankle Anaerobic Culture - Preliminary No growth in 48 hours. 06/12/24 13:50 Wound - Ankle Gram Stain - Final 06/12/24 13:50 Wound - Ankle Wound Culture - Final Staphylococcus aureus 06/11/24 22:10 Urine, Clean Catch Urine Culture - Final Proteus mirabilis 06/11/24 21:30 Stool Stool Occult Blood (MERRICK) - Final Occult Blood Positive Physical Exam Const alert, oriented x3 and no apparent distress Constitutional Narrative: alert and oriented to self, place and person. Confusion has improved today General Appearance: cooperative HEENT normocephalic, head/scalp atraumatic, hearing grossly normal bilaterally, moist oral mucous membranes and oropharynx normal Eyes PERRL, EOMs intact bilaterally and conjunctivae normal Neck no lymphadenopathy, supple and No no JVD Neck Narrative: Lymph Lymphatic: no lymphadenopathy noted Resp Resp Narrative: mildly diminished breath sounds bibasally, no wheezes or crackles. On 2L of oxygen by nasal canula. Auscultation: crackles and wheezes Cardio regular rate, regular rhythm, S1 normal heart sound and S2 normal heart sound Cardio Narrative: 2 out of 6 systolic murmur loudest at right upper sternal border GI normal to inspection, nondistended, normoactive bowel sounds, soft to palpation, non-tender and non-distended Extremity normal to inspection and full ROM Extremity Narrative: bilateral LE edema Skin Skin Narrative: feet wrapped in bandage Neuro oriented x3, CN's II-XII intact bilaterally, moves all extremities, no focal motor deficits and no sensory deficits noted Neuro Narrative: Severe generalized weakness but no focal deficits noted Sensorium / Orientation: awake, alert and oriented to person Speech: speech normal Motor Exam: general weakness Psych thought process normal, cooperative and affect normal Psych Narrative: Extremely pleasant Appearance: appropriate Assessment & Plan Assessment/Plan (1) Osteomyelitis of ankle, right, acute: (2) Hypoxia: PLAN: Plan #Acute hypoxia due to HFpEF and pulmonary hypertension Currently on 2 L of oxygen. On Lasix. Breathing treatments bronchodilators. Titrate oxygen to maintain saturation above 90%. #UTI due to Proteus: now on IV cefazolin per ID, also because of the osteomyeltis of the right ankle. #Right ankle osteomyelitis: s/p I&D by podiatry on 06/17/2024. Wound cultures growing Staph aureus. Bone cultures show no growth so far. antibiotics narrowed down to IV cefazolin per ID. ID planning on 6 weeks PO antibiotics at discharge #Severe peripheral vascular disease Aspirin and Plavix currently held and to be resumed after surgery once okay with podiatry. CTA with runoff showed moderate to severe atherosclerotic disease throughout the arterial system with severe right lower extremity disease showing an occluded superficial femoral artery stents and occlusions in the popliteal and infrapopliteal arteries with reconstitution of the popliteal artery distally on the right and left lower extremity with patent stents and single one-vessel runoff of the posterior tibial artery and moderate bilateral pleural effusions. Will need follow-up with vascular surgery on outpatient basis. #Bilateral pleural effusions: On IV Lasix 40 mg daily. Currently on 2 L of oxygen. Switch to PO lasix #Neurocognitive and impairment with episodic hallucinations. Stable. #Benign essential hypertension: Lisinopril held. On metoprolol. On IV Lasix. # Hyperlipidemia: On statin #Atrial fibrillation with history of sick sinus syndrome s/p pacemaker On metoprolol and amiodarone. Not anticoagulated due to fall risk. #GERD: On PPI #Depression: on remeron. #History of prostate cancer, s/p prostatectomy. #Debility and weakness: PT OT on board. DVT prophylaxis: On Lovenox Disposition: Anticipate DC back to SNF over the next 1 to 2 days once ID finalises antibiotics they want him to go on. Daughter Rene updated by phone ([phone]) and counseled that we were awaiting the final ID recommendations for the antibiotics and then patient to be stable to be discharged home. She expressed understanding and appreciation. Charges/Coding Visit Charges Inpatient E&M: 86089 Subs Hosp L2
--- NOTE | 2024-06-19 16:13 | NURSING ---
update given to Mark, Pt's son.
[2024-06-19] MEDS: Atorvastatin Calcium 20 MG Tablet PO (21:35)
[2024-06-19] MEDS: Mirtazapine 15 MG Tablet PO (21:35)
[2024-06-19] MEDS: Menthol/Lanolin/Calamine/Znox 113 GM Tube 1 APPLIC TOPICAL (22:00)
[2024-06-20 03:20] VITALS: BP 143/62; PULSE 61; RESP 15; TEMP 36.6; O2SAT 96
[2024-06-20 05:00] VITALS: O2SAT 95
[2024-06-20 05:07] LABS: Absolute Lymphocyte Count 0.55 X10^3/uL (0.83-4.51); Basophil# 0.02 X10^3/uL; Basophil% 0.3 % (0-1); Eosinophils% 3.8 % (0-5); Hematocrit 30.9 % (40-54); Hemoglobin 9.5 g/dL (13.0-16.5); Lymphocyte # 0.55 X10^3/ul (0.83-4.51); Lymphocyte % 6.9 % (19-41); Mean Corp Hgb Conc 30.7 g/dL (32-36); Mean Corpuscular Hgb 31.4 pg (27.0-32.0); Mean Platelet Vol. 9.7 fl (6.2-12.0); Monocyte% 12.6 % (0-10); NRBC Flagged by Analyzer 0 % (0-5); Neutrophil # 6.03 X10^3/uL (2.7-7.7); Neutrophil % 75.9 % (47-70); POSITIVE DIFFERENTIAL YES; POSITIVE MORPHOLOGY YES; Platelet Count 308 K/mm3 (150-450); RBC Distribution Width CV 17.6 % (11.6-14.6); RBC Distribution Width SD 65.7 fl (35.1-43.9); Red Blood Count 3.03 M/mm3 (4.6-6.2); White Blood Count 7.9 K/mm3 (4.4-11.0)
[2024-06-20 05:29] LABS: Differential Indicated SCAN CRITERIA MET
[2024-06-20 06:00] VITALS: BMI 20.2
[2024-06-20 06:14] LABS: Anion Gap 11 (5-15); BUN 40 mg/dL (4-19); BUN/Creat Ratio 31.1 RATIO (10-20); Calcium,Total 9.1 mg/dL (7.6-11.0); Carbon Dioxide 31.4 mmol/L (21.0-32.0); Chloride 100 mmol/L (98-108); Creatinine, Serum 1.28 mg/dL (0.70-1.20); EST Glomerular Filtration Rate 53 (>60); Estimated Creatinine Clearance 35.97 ml/min (50-250); Glucose 108 mg/dL (70-99); Potassium 3.2 mmol/L (3.3-5.1); Sodium Level 142 mmol/L (133-145)
[2024-06-20] MEDS: Cefazolin 2 GM in Syringe IV (06:15)
[2024-06-20] MEDS: Menthol/Lanolin/Calamine/Znox 113 GM Tube 1 APPLIC TOPICAL (06:24)
[2024-06-20 07:00] VITALS: O2SAT 95
[2024-06-20 07:09] LABS: Anisocytosis RARE
--- NOTE | 2024-06-20 09:18 | CASEMGMT ---
Discharge Planning Updates sent to [facility]. Love Patricio DC Planning Asst.
[2024-06-20 09:38] VITALS: PULSE 60
[2024-06-20] MEDS: DULoxetine Hcl 30 MG Capsule PO (09:38)
[2024-06-20] MEDS: Enoxaparin 40 MG/0.4 ML Syringe SC (09:38)
[2024-06-20] MEDS: Metoprolol Tartrate 50 MG Tablet 150 MG PO (09:38)
[2024-06-20] MEDS: Pantoprazole Sodium 40 MG Tablet PO (09:38)
[2024-06-20] MEDS: Amiodarone 200 MG Tablet PO (09:39)
[2024-06-20] MEDS: Memantine Hydrochloride 10 MG Tablet PO (09:39)
[2024-06-20] MEDS: Acetaminophen 500 MG Tablet 1000 MG PO (09:43)
[2024-06-20] MEDS: Furosemide 40 MG Tablet PO (09:43)
--- NOTE | 2024-06-20 10:42 | PCM.PN.ID ---
Physical Exam Narrative Feeling much better, no fever, leg pain improved, no n/v/d Const alert and no apparent distress General Appearance: cooperative Resp normal air movement and clear to auscultation bilaterally Cardio regular rate and regular rhythm GI soft to palpation, non-tender and non-distended Skin Skin Narrative: R ankle wrapped ID ID: Route of nutrition/ use of supplements: [] Nutritional Intake: [] IV Site: [] Diana Catheter: [] Assessment & Plan Assessment/Plan (1) Osteomyelitis of ankle, right, acute: PLAN: Wound cx with MSSA. Ucx with proteus. Has prior h/o MSSA 02/2024. Taken to OR 06/17/[address] Garcia for debridement involving bone. On cefazolin. Plan on 6 weeks po doxy at discharge. Will follow, ID followup in 3 weeks. (2) Other specified peripheral vascular diseases:
--- NOTE | 2024-06-20 10:59 | PCM.TXEXTCAR ---
Diet Diet Order/Speech Therapy: 06/17/24 14:03 Diet: Regular - General Type of Dietary Supplement:: Glucerna Shake Diet Comments: 120 GS tid w/ meals and Tim bid w/ breakfast and dinner Routine Orders/Code Status Routine Lab Work: CBC (Repeat in 5 to 7 days to ensure stable hemoglobin) and BMP (Repeat in 5 to 7 days to ensure stable kidney function) Code Status: DNRCC-A (DO NOT INTUBATE) DC O2, CPAP, BIPAP needs Home O2 Discharge instructions: No Wound(s) right lateral ankle: Wound Type: neuropathic/possible pressure component as well Dressing Change: betadine Adaptic right great toe: Wound Type: Neuropathic/Diabetic Foot Ulcer Dressing Change: betadine with dry dressing right second toe: Wound Type: Neuropathic/Diabetic Foot Ulcer Dressing Change: betadine with dry dressing left great toe base between great toe and second: Wound Type: Neuropathic/Diabetic Foot Ulcer Therapies Weight Bearing: Partial weight bearing (Keep pressure offloaded of right ankle at all times) Physical Therapy: Eval and Treat Occupational Therapy: Eval and Treat Problem/Diagnosis (1) Osteomyelitis of ankle, right, acute: Status: Acute Code(s): M86.171 - Other acute osteomyelitis, right ankle and foot (2) Other specified peripheral vascular diseases: Status: Acute Code(s): I73.89 - Other specified peripheral vascular diseases Plan Patient is an 88-year-old male who presented [facility] ED on 06/11/2024 with bright red blood per rectum. Hospital course as noted below. Patient discharged back to extended-care facility in stable condition on 06/20. 1. Lower GI bleed ? GI followed. Colonoscopy on 06/13 showed polyps in ascending colon removed with hot snare, large polyp at hepatic flexure that was removed, diverticulosis with rectal prolapse and 3 bleeding angiodysplastic lesions that were treated with heater probe. Hemoglobin remained stable in the 9-10 range for the remainder of the admission. Okay to resume home aspirin and Plavix on discharge. 2. Right ankle osteomyelitis ? Podiatry and infectious disease followed. S/p debridement of right ankle ulceration down to and including the bone on 06/17. Wound culture grew MSSA. Treated with Ancef while inpatient and per ID, discharged on doxycycline for 6 more weeks, stop date 07/31. 3. Proteus urinary tract infection ? UA infectious on admit and urine culture grew Proteus. Completed treatment while inpatient. 4. Severe peripheral vascular disease ? Vascular surgery followed. CTA with runoff during admission showed SFA/popliteal occlusion with distal reconstitution. Was okay for right ankle procedure as noted above but will still likely need revascularization in the near future. Plan is for close outpatient follow-up and angiogram on an outpatient basis likely in a few weeks, which will give him time to restart dual antiplatelet therapy and ensure he can tolerate this without adverse bleeding prior to angiogram. 5. Acute hypoxic respiratory failure secondary to HFpEF/pulmonary hypertension with bilateral pleural effusions, resolved ? Echo during hospitalization showed EF 70%, unable to assess diastolic dysfunction, mild biatrial dilation, PASP 60 mmHg. Improved with IV diuresis and stable on room air on discharge. 6. Toxic/metabolic encephalopathy, resolved ? Improved shortly after admission and remained stable during hospitalization. 7. Chronic debility ? PT/OT/case management following. Patient stable to return to ECF on discharge. Chronic medical conditions: ? Mild cognitive impairment with hallucinations: Continue home memantine. ? A-fib with history of SSS/chronic RBBB s/p pacemaker placement: Continue home metoprolol and amiodarone. Not anticoagulated due to risk. ? Hypertension/hyperlipidemia: Okay to continue all home antihypertensives on discharge. ? GERD: Continue home PPI. ? Depression: Continue home antidepressants. ? History of prostate cancer s/p prostatectomy Total clinical time spent by myself addressing the patient's medical issues, reviewing all the data, and collaborating with patient's care team: 35 minutes. Allergies/Procedures Done in Hospital Allergies latex Allergy (Unknown, Verified 06/11/24 20:29) unknown carisoprodol Allergy (Verified 06/11/24 20:29) Other itraconazole Allergy (Verified 06/11/24 20:29) Other COVID-19 (SARS-CoV-2) vaccine, jeanie Adverse Reaction (Verified 06/11/24 20:29) Other Procedures: Colonoscopy, EKG, Transthoracic Echo and - (Right ankle wound debridement, CT abdomen pelvis, lower extremity CT, foot x-ray x 2, ankle x-ray x 2, chest x-ray, CT brain) Type of Care/Length of Stay Estimated LOS: More Than 30 Days Type of Care Needed: LTAC Rehab Potential: Poor Prognosis: Poor Additional Orders/Day of Discharge H&P will serve as current which was dated: 06/11/24 Day of Discharge: 06/20/24 Dietary and Speech Recommendations Dietitian Recommendations/Changes: Recommend advanced diet as tolerated to liberal regular diet d/t adequate A1C. Recommend tim BID with breakfast and dinner to promote wound healing. Recommend 120ml glucerna shake TID with meals d/t weight status. Will monitor weight trends. Discharge Plan Admission Admit Date/Time: 06/12/24 01:40 Primary Reason for Your Visit: Lower GI bleed and right ankle wound Attending Provider: Miko Dennis Primary Care Provider: Dennys Manley Consulting Providers: Remy Macias; Bill Gracia; Russ Ball; Mark Lizarraga; Yane Callahan; Katharine Muller Discharge Orders/Prescriptions Prescriptions: New doxycycline monohydrate 100 mg Capsule 100 mg PO BID 38 Days Qty: 76 0RF Continued duloxetine 30 mg capsule,delayed release(DR/EC) 30 mg PO DAILY (DME) Motorized wheelchair See Rx Instructions .Route .MEDSUPPLY Qty: 1 0RF Rx Instructions: As directed memantine 28 mg capsule,sprinkle,ER 24hr 28 mg PO DAILY Qty: 30 6RF Rx Instructions: Week #4 and thereafter mirtazapine 30 mg Tablet 15 mg PO QHS furosemide [Lasix] 40 mg tablet 20 mg PO DAILY potassium chloride 10 mEq tablet,ER particles/crystals 40 meq PO DAILY lisinopril 5 mg tablet 5 mg PO DAILY amiodarone 200 mg tablet 200 mg PO DAILY aspirin 81 mg tablet,delayed release (DR/EC) 81 mg PO DAILY clopidogrel 75 mg tablet 75 mg PO DAILY fluorometholone 0.1 % drops,suspension 1 drp ophthalmic (eye) Q12H Rx Instructions: both eyes metoprolol tartrate 100 mg tablet 150 mg PO Q12H pantoprazole 40 mg tablet,delayed release (DR/EC) 40 mg PO DAILY atorvastatin 20 mg tablet 20 mg PO QHS Qty: 90 3RF isosorbide mononitrate 60 mg tablet extended release 24 hr 60 mg PO DAILY Qty: 30 11RF Changed acetaminophen 500 mg Tablet 1,000 mg PO TID PRN (Reason: LOWER BACK PAIN) 30 Days Qty: 0 0RF Referrals / Follow Up: Dennys Manley MD [Primary Care Provider] - Disposition Disposition (needs filled in before D/C Order can be placed): Claims Assistant Acute Care
--- NOTE | 2024-06-20 11:00 | PCM.DC.SUM ---
Providers Date of Admission: 06/12/24 Date of Discharge: 06/20/24 Primary Care Physician: Dr. Dennys Manley MD Consultations 06/12/24 02:18 Consult: Gastroenterology Routine Consulting Provider: [facility] Reason for Consult: LGIB with BRBPR on BASA and Plavix. 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 EMERGENT Consult: No Notified: Yes Date Notified: 06/12/24 Time Notified: 08:01 Method of Notification: Text 06/12/24 14:01 Consult: Infectious Disease Routine Consulting Provider: Russ Ball Reason for Consult: infection possible osteomyelitis right lateral malleolus EMERGENT Consult: No Notified: Yes Date Notified: 06/12/24 Time Notified: 14:22 Method of Notification: Text 06/12/24 14:02 Consult: Vascular Surgery Routine Consulting Provider: Mark Lizarraga Reason for Consult: Lower extremity PAD with ulcers and eschars, hx of recent intervention EMERGENT Consult: No Notified: Yes Date Notified: 06/12/24 Time Notified: 14:02 Method of Notification: office Reason For Visit: LGIB WITH BRBPR, ADVERSE DRUG REACTION & ACUTE Diagnosis Discharge Diagnosis (1) Osteomyelitis of ankle, right, acute: Status: Acute Code(s): M86.171 - Other acute osteomyelitis, right ankle and foot (2) Other specified peripheral vascular diseases: Status: Acute Code(s): I73.89 - Other specified peripheral vascular diseases Medications at Discharge Home Medications duloxetine 30 mg capsule,delayed release 30 mg PO DAILY DEPRESSION 03/06/19 atorvastatin 20 mg tablet 20 mg PO QHS CHOLESTEROL #90 tabs 06/10/19 Motorized wheelchair #1 ea 06/29/22 furosemide 40 mg tablet (Lasix) 20 mg PO DAILY FLUID 06/30/22 mirtazapine 30 mg tablet 15 mg PO QHS DEPRESSION 06/30/22 potassium chloride 10 mEq tablet,extended release(part/cryst) 40 meq PO DAILY SUPPLEMENT 06/30/22 isosorbide mononitrate 60 mg tablet,extended release 24 hr 60 mg PO DAILY #30 tabs 04/20/23 memantine 28 mg capsule sprinkle,extended release 24hr 28 mg PO DAILY #30 ea 05/16/23 lisinopril 5 mg tablet 5 mg PO DAILY 03/08/24 amiodarone 200 mg tablet 200 mg PO DAILY 04/28/24 aspirin 81 mg tablet,delayed release 81 mg PO DAILY 04/28/24 clopidogrel 75 mg tablet 75 mg PO DAILY 04/28/24 fluorometholone 0.1 % eye drops,suspension 1 drp ophthalmic (eye) Q12H 04/28/24 metoprolol tartrate 100 mg tablet 150 mg PO Q12H 04/28/24 pantoprazole 40 mg tablet,delayed release 40 mg PO DAILY 04/28/24 acetaminophen 500 mg tablet 1,000 mg (2 x 500 mg) PO TID PRN LOWER BACK PAIN 30 days #0 tabs 06/20/24 doxycycline monohydrate 100 mg capsule 100 mg PO BID 38 days #76 caps 06/20/24 Hospital Course Operations - (Right ankle wound debridement) Procedures Colonoscopy, EKG, Transthoracic echo and - (CT abdomen pelvis, lower extremity CT, foot x-ray x 2, ankle x-ray x 2, chest x-ray, CT brain) Summary of Care Provided Minutes Spent on Discharge: 35 Hospital Course: Patient is an 88-year-old male who presented [facility] ED on 06/11/2024 with bright red blood per rectum. Hospital course as noted below. Patient discharged back to extended-care facility in stable condition on 06/20. 1. Lower GI bleed ? GI followed. Colonoscopy on 06/13 showed polyps in ascending colon removed with hot snare, large polyp at hepatic flexure that was removed, diverticulosis with rectal prolapse and 3 bleeding angiodysplastic lesions that were treated with heater probe. Hemoglobin remained stable in the 9-10 range for the remainder of the admission. Okay to resume home aspirin and Plavix on discharge. 2. Right ankle osteomyelitis ? Podiatry and infectious disease followed. S/p debridement of right ankle ulceration down to and including the bone on 06/17. Wound culture grew MSSA. Treated with Ancef while inpatient and per ID, discharged on doxycycline for 6 more weeks, stop date 07/31. 3. Proteus urinary tract infection ? UA infectious on admit and urine culture grew Proteus. Completed treatment while inpatient. 4. Severe peripheral vascular disease ? Vascular surgery followed. CTA with runoff during admission showed SFA/popliteal occlusion with distal reconstitution. Was okay for right ankle procedure as noted above but will still likely need revascularization in the near future. Plan is for close outpatient follow-up and angiogram on an outpatient basis likely in a few weeks, which will give him time to restart dual antiplatelet therapy and ensure he can tolerate this without adverse bleeding prior to angiogram. 5. Acute hypoxic respiratory failure secondary to HFpEF/pulmonary hypertension with bilateral pleural effusions, resolved ? Echo during hospitalization showed EF 70%, unable to assess diastolic dysfunction, mild biatrial dilation, PASP 60 mmHg. Improved with IV diuresis and stable on room air on discharge. 6. Toxic/metabolic encephalopathy, resolved ? Improved shortly after admission and remained stable during hospitalization. 7. Chronic debility ? PT/OT/case management following. Patient stable to return to [facility] on discharge. Chronic medical conditions: ? Mild cognitive impairment with hallucinations: Continue home memantine. ? A-fib with history of SSS/chronic RBBB s/p pacemaker placement: Continue home metoprolol and amiodarone. Not anticoagulated due to risk. ? Hypertension/hyperlipidemia: Okay to continue all home antihypertensives on discharge. ? GERD: Continue home PPI. ? Depression: Continue home antidepressants. ? History of prostate cancer s/p prostatectomy Total clinical time spent by myself addressing the patient's medical issues, reviewing all the data, and collaborating with patient's care team: 35 minutes. Physical Exam Const alert, no apparent distress, average body habitus and healthy appearing Constitutional Narrative: Elderly male, mildly fatigued appearing but otherwise sitting up comfortably in bedside chair, conversing normally, in no acute distress. General Appearance: cooperative and comfortable HEENT normocephalic, head/scalp atraumatic, hearing grossly normal bilaterally, nasal mucous membranes and turbinates normal and moist oral mucous membranes Eyes PERRL, EOMs intact bilaterally and conjunctivae normal Neck full ROM Chest inspection of chest normal Resp normal respiratory effort, normal air movement, no use of accessory muscles and clear to auscultation bilaterally Cardio regular rate, regular rhythm, no murmurs and peripheral pulses 2+ throughout GI normal to inspection, nondistended, normoactive bowel sounds, soft to palpation, non-tender and non-distended Back/Spine normal ROM Extremity Extremity Narrative: Right ankle with dressing in place. Neuro moves all extremities and no focal motor deficits Speech: speech normal Motor Exam: strength 5/5 throughout Psych mental status grossly normal Weight / BMI Weight Weight: 64.1 kg Body Mass Index (BMI) 20.2 ABG / Lab / Microbiology Data 06/20/24 04:57 06/20/24 04:57 Laboratory: Laboratory Results - last 24 hr 06/20/24 04:57: WBC 7.9, RBC 3.03 L, Hgb 9.5 L, Hct 30.9 L, MCV 102.0 H, MCH 31.4, MCHC 30.7 L, RDW Std Deviation 65.7 H, RDW Coeff of Ayesha 17.6 H, Plt Count 308, MPV 9.7, Immature Gran % (Auto) 0.500, Neut % (Auto) 75.9 H, Lymph % (Auto) 6.9 L, Griggs % (Auto) 12.6 H, Eos % (Auto) 3.8, Baso % (Auto) 0.3, Absolute Neuts (auto) 6.0, Absolute Lymphs (auto) 0.55 L, Nucleated RBC % 0, Anisocytosis RARE, Sodium 142, Potassium 3.2 L, Chloride 100, Carbon Dioxide 31.4, Anion Gap 11, BUN 40 H, Creatinine 1.28 H, Estim Creat Clear Calc 35.97 L, Est GFR (MDRD) Non-Af 53 L, BUN/Creatinine Ratio 31.1 H, Glucose 108 H, Calcium 9.1 Microbiology: Microbiology 06/17/24 13:30 Bone - Ankle Gram Stain - Final 06/17/24 13:30 Bone - Ankle Wound Culture - Final No growth aerobically. 06/17/24 13:30 Bone - Ankle Anaerobic Culture - Preliminary No growth in 48 hours. 06/12/24 13:50 Wound - Ankle Gram Stain - Final 06/12/24 13:50 Wound - Ankle Wound Culture - Final Staphylococcus aureus 06/11/24 22:10 Urine, Clean Catch Urine Culture - Final Proteus mirabilis 06/11/24 21:30 Stool Stool Occult Blood (MERRICK) - Final Occult Blood Positive D/C Instructions DC O2, CPAP, BIPAP Needs PSN CPAP & BiPAP: BiPAP & CPAP Settings per PSN Mode BiPAP 06/16/24 02:25 Bipap Delivery Device Face Mask 06/15/24 04:38 BiPAP Inspiratory Pressure 18 06/15/24 04:38 BiPAP Expiratory Pressure 10 06/15/24 04:38 BiPAP Rate 20 06/15/24 04:38 Fraction of Inspired Oxygen ( 30 06/15/24 04:38 FIO2) Home O2 Discharge instructions: No Meaningful Use Info Meaningful Use Meaningful Use Diagnoses (Choose all that apply): None applicable Ischemic Stroke Statin Dosing Therapy Reference: STATIN DOSE THERAPY REFERENCE: * Patients > 75 years receive moderate or high dose statin therapy. * Patients 75 years or YOUNGER should receive HIGH intensity statin dose unless contraindicated. You will be required to document reason for non-treatment if statin daily dose does not meet guidelines. HIGH DOSE STATIN THERAPY DAILY Atorvastatin > than or = to 40 mg Rosuvastatin > than or = to 20 mg Amlodipine + Atorvastatin > than or = to 2.5/40 mg Ezetimibe + Simvastatin 10/80 mg Simvastatin 80mg Discharge Plan Admission Admit Date/Time: 06/12/24 01:40 Primary Reason for Your Visit: Lower GI bleed and right ankle wound Attending Provider: Miko Dennis Primary Care Provider: Dennys Manley Consulting Providers: Remy Macias; Bill Garcia; Russ Ball; Mark Lizarraga; Yane Callahan; Katharine Muller Discharge Orders/Prescriptions Prescriptions: New doxycycline monohydrate 100 mg Capsule 100 mg PO BID 38 Days Qty: 76 0RF Continued duloxetine 30 mg capsule,delayed release(DR/EC) 30 mg PO DAILY (DME) Motorized wheelchair See Rx Instructions .Route .MEDSUPPLY Qty: 1 0RF Rx Instructions: As directed memantine 28 mg capsule,sprinkle,ER 24hr 28 mg PO DAILY Qty: 30 6RF Rx Instructions: Week #4 and thereafter mirtazapine 30 mg Tablet 15 mg PO QHS furosemide [Lasix] 40 mg tablet 20 mg PO DAILY potassium chloride 10 mEq tablet,ER particles/crystals 40 meq PO DAILY lisinopril 5 mg tablet 5 mg PO DAILY amiodarone 200 mg tablet 200 mg PO DAILY aspirin 81 mg tablet,delayed release (DR/EC) 81 mg PO DAILY clopidogrel 75 mg tablet 75 mg PO DAILY fluorometholone 0.1 % drops,suspension 1 drp ophthalmic (eye) Q12H Rx Instructions: both eyes metoprolol tartrate 100 mg tablet 150 mg PO Q12H pantoprazole 40 mg tablet,delayed release (DR/EC) 40 mg PO DAILY atorvastatin 20 mg tablet 20 mg PO QHS Qty: 90 3RF isosorbide mononitrate 60 mg tablet extended release 24 hr 60 mg PO DAILY Qty: 30 11RF Changed acetaminophen 500 mg Tablet 1,000 mg PO TID PRN (Reason: LOWER BACK PAIN) 30 Days Qty: 0 0RF Referrals / Follow Up: Dennys Manley MD [Primary Care Provider] - Disposition Disposition (needs filled in before D/C Order can be placed): [employer] Acute Care Charges/Coding Visit Charges Inpatient E&M: 95922 Disch Hosp >30min
[2024-06-20] MEDS: Doxycycline 100 MG CAPSULE PO (12:50)
--- NOTE | 2024-06-20 13:16 | CASEMGMT ---
Discharge Planning Discharge orders, signed med list, and transport time sent to [facility]. Physicians will transport pt by wheelchair at 1:45p. Nursing, SW, pt, and his son (Wesley) updated. Love Patricio DC Planning Asst.
[2024-06-20 14:07] VITALS: BP 92/48; PULSE 63; RESP 18; TEMP 36.4; O2SAT 98
--- NOTE | 2024-06-20 14:14 | NURSING ---
Attempted to call report to [facility]. No answer, but left with call back number.
== END 2024-06-20 14:15 | DRG 329 ==
LOC: ED 06-12 00:30 → PCU 06-12 01:49
PROVIDERS: Anesthesiology; Internal Medicine; Internal Medicine Gastroenterology; Internal Medicine Infectious Disease; Podiatrist; Student in an Organized Health Care Education/Training Program; Admitting Provider Internal Medicine; Emergency Provider Surgery; PCP Internal Medicine; Visit Provider Hospitalist
PROC: 0DJD8ZZ Inspection of Lower Intestinal Tract, Via Natural or Artificial Opening Endoscopic (ICD-10-PCS; CPT 45378; principal; 2024-06-13 17:40)
PROC: 0JBQ0ZZ Excision of Right Foot Subcutaneous Tissue and Fascia, Open Approach (ICD-10-PCS; principal; 2024-06-17 12:50)
DX: K55.21 Angiodysplasia of colon with hemorrhage (principal); J96.01 Acute respiratory failure with hypoxia; G92.8 Other toxic encephalopathy; I50.31 Acute diastolic (congestive) heart failure; D68.32 Hemorrhagic disorder due to extrinsic circulating anticoagulants; L97.313 Non-pressure chronic ulcer of right ankle with necrosis of muscle; M86.171 Other acute osteomyelitis, right ankle and foot; E87.29 Other acidosis; N30.00 Acute cystitis without hematuria; I27.20 Pulmonary hypertension, unspecified; Z66 Do not resuscitate; F03.90 Unspecified dementia, unspecified severity, without behavioral disturbance, psychotic disturbance, mood disturbance, and anxiety; E13.42 Other specified diabetes mellitus with diabetic polyneuropathy; I11.0 Hypertensive heart disease with heart failure; D50.9 Iron deficiency anemia, unspecified; F32.A Depression, unspecified; I35.1 Nonrheumatic aortic (valve) insufficiency; I48.91 Unspecified atrial fibrillation; K62.3 Rectal prolapse; E13.51 Other specified diabetes mellitus with diabetic peripheral angiopathy without gangrene; E13.621 Other specified diabetes mellitus with foot ulcer; E13.622 Other specified diabetes mellitus with other skin ulcer; E78.5 Hyperlipidemia, unspecified; I25.10 Atherosclerotic heart disease of native coronary artery without angina pectoris; K21.9 Gastro-esophageal reflux disease without esophagitis; L97.512 Non-pressure chronic ulcer of other part of right foot with fat layer exposed; K57.30 Diverticulosis of large intestine without perforation or abscess without bleeding; M48.061 Spinal stenosis, lumbar region without neurogenic claudication; K63.5 Polyp of colon; I87.2 Venous insufficiency (chronic) (peripheral); E11.69 Type 2 diabetes mellitus with other specified complication; B96.89 Other specified bacterial agents as the cause of diseases classified elsewhere; N32.89 Other specified disorders of bladder; R53.81 Other malaise; Z95.5 Presence of coronary angioplasty implant and graft; M51.369 Other intervertebral disc degeneration, lumbar region without mention of lumbar back pain or lower extremity pain; Z82.3 Family history of stroke; Z86.16 Personal history of COVID-19; B96.4 Proteus (mirabilis) (morganii) as the cause of diseases classified elsewhere; B95.61 Methicillin susceptible Staphylococcus aureus infection as the cause of diseases classified elsewhere; T50.905A Adverse effect of unspecified drugs, medicaments and biological substances, initial encounter; Z85.46 Personal history of malignant neoplasm of prostate; Z87.440 Personal history of urinary (tract) infections; Z95.0 Presence of cardiac pacemaker
CPT/HCPCS: 36415; 36600; 70450; 71045; 73610; 73630; 73701; 74177; 75635; 80048; 80053; 80076; 80202; 81001; 82140; 82274; 82746; 82803; 82962; 83036; 83605; 83690; 83735; 83880; 84100; 84443; 84484; 84520; 85025; 85610; 85730; 86850; 86900; 86901; 87015; 87070; 87075; 87077; 87086; 87088; 87102; 87116; 87176; 87186; 87205; 87206; 88305; 88311; 93005; 93306; 94002; 94003; 94668; 94762; 97110; 97162; 97166; 97530; 97535; 99285; P9612; Q9967; A4216; J1940; J2405

== ENCOUNTER 2024-06-26 05:04 | Emergency (ER) | payer MEDICARE, OTHER, SELFPAY ==
[2024-06-26] VITALS (14 sets, daily range): BP systolic 99–137; BP diastolic 46–112; PULSE 60–79; RESP 13–20; TEMP 35.8–37.2; O2SAT 91–100; BMI 20.7
[2024-06-26 06:11] LABS: Absolute Lymphocyte Count 0.92 X10^3/uL (0.83-4.51); Absolute Neutrophil Count 7.1 X10^3/uL (2.0-7.7); Basophil# 0.05 X10^3/uL; Basophil% 0.5 % (0-1); Eosinophil# 0.34 X10^3/uL; Eosinophils% 3.6 % (0-5); Hematocrit 24.3 % (40-54); Hemoglobin 7.3 g/dL (13.0-16.5); Lymphocyte # 0.92 X10^3/ul (0.83-4.51); Lymphocyte % 9.7 % (19-41); Mean Corpuscular Hgb 31.6 pg (27.0-32.0); Mean Corpuscular Volume 105.2 fL (80-94); Mean Platelet Vol. 10.2 fl (6.2-12.0); Monocyte# 1.03 X10^3/uL; Monocyte% 10.8 % (0-10); NRBC Flagged by Analyzer 0.2 % (0-5); Neutrophil # 7.09 X10^3/uL (2.7-7.7); Neutrophil % 74.5 % (47-70); POSITIVE MORPHOLOGY YES; Platelet Count 383 K/mm3 (150-450); RBC Distribution Width CV 17.5 % (11.6-14.6); RBC Distribution Width SD 68.1 fl (35.1-43.9); Red Blood Count 2.31 M/mm3 (4.6-6.2); White Blood Count 9.5 K/mm3 (4.4-11.0)
[2024-06-26 06:20] LABS: Differential Indicated SCAN CRITERIA MET
[2024-06-26 06:28] LABS: International Normalized Ratio 1.1; Prothrombin Time (Protime)PT. 14.5 SECONDS (11.7-14.9)
[2024-06-26 06:33] LABS: Partial Thromboplast Time 29.3 Seconds (24.1-36.2)
--- NOTE | 2024-06-26 06:37 | EDS_ITS ---
HPI History of Present Illness Chief Complaint: GI Bleed Informant: patient and SNF Limited: dementia Narrative Narrative: Patient is an 88-year-old male from the group home with past medical history of peripheral vascular disease hypertension hyperlipidemia dementia persistent atrial fibrillation status post pacemaker currently on aspirin and Plavix. He was admitted to the hospital secondary to bright red blood per rectum and discha rged just a few days ago. During that stay he had CTA and a colonoscopy. The colonoscopy revealed multiple diverticula throughout the colon as well as angiodysplasia around the cecum. The patient underwent cautery and had resolution of bleeding and his hemoglobin remained stable and therefore he was discharged back to the group home on his aspirin and Plavix. senior living reports that this morning they went to change the patient and there was dark red blood in his depends and therefore he was sent back to the hospital for evaluation The patient denies any abdominal pain but cannot offer any further history of present illness based on his dementia [facility] Medical History Large bowel bleed Non-smoker Atrial fibrillation Diabetes Hallucinations Dementia Gait disorder Cancer Sleep apnea Chest pain Hypertension
--- NOTE | 2024-06-26 06:37 | EX.ED.DYSGE1 ---
HPI History of Present Illness Chief Complaint: GI Bleed Informant: patient and SNF Limited: dementia Narrative Narrative: Patient is an 88[facility] with past medical history of peripheral vascular disease hypertension hyperlipidemia dementia persistent atrial fibrillation status post pacemaker currently on aspirin and Plavix. He was admitted to the hospital secondary to bright red blood per rectum and discharged just a few days ago. During that stay he had CTA and a colonoscopy. The colonoscopy revealed multiple diverticula throughout the colon as well as angiodysplasia around the cecum. The patient underwent cautery and had resolution of bleeding and his hemoglobin remained stable and therefore he was [facility] on his aspirin and Plavix. [facility] reports that this morning they went to change the patient and there was dark red blood in his depends and therefore he was sent back to the hospital for evaluation The patient denies any abdominal pain but cannot offer any further history of present illness based on his dementia [facility] Medical History Large bowel bleed Non-smoker Atrial fibrillation Diabetes Hallucinations Dementia Gait disorder Cancer Sleep apnea Chest pain Hypertension Carpal tunnel syndrome on both sides History of non-ST elevation myocardial infarction (NSTEMI) (07/02/19) UTI (urinary tract infection) Atrial fibrillation with RVR (05/28/20) Acute diarrheal illness Acute kidney injury Pneumonia due to COVID-19 virus (03/23/20) Septic shock PAD (peripheral artery disease) Delayed wound healing Debility Nonhealing ulcer of left lower extremity with fat layer exposed Non-healing ulcer of right foot with fat layer exposed Neuropathy Rectal prolapse Right bundle branch block (RBBB) Open wound of finger of left hand Chronic pain of right heel Ulcer of right lower extremity with fat layer exposed Ulcer of right heel Peripheral arterial occlusive disease Urinary incontinence Essential (primary) hypertension Spondylolisthesis Lumbar stenosis Peripheral neuropathy 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 DDD (degenerative disc disease) GERD (gastroesophageal reflux disease) Prostate cancer Obstructive sleep apnea Hyperlipidemia Home Medications ?Medication ?Instructions ?Recorded ?Last Taken ?Type duloxetine 30 mg capsule,delayed 30 mg PO DAILY DEPRESSION 03/06/19 04/25/24 History release atorvastatin 20 mg tablet 20 mg PO QHS CHOLESTEROL #90 tabs 06/10/19 04/24/24 Rx Motorized wheelchair #1 ea 06/29/22 Unknown Rx furosemide 40 mg tablet (Lasix) 20 mg PO DAILY FLUID 06/30/22 04/25/24 History mirtazapine 30 mg tablet 15 mg PO QHS DEPRESSION 06/30/22 04/24/24 History potassium chloride 10 mEq 40 meq PO DAILY SUPPLEMENT 06/30/22 04/24/24 History tablet,extended release(part/cryst) isosorbide mononitrate 60 mg 60 mg PO DAILY #30 tabs 04/20/23 04/25/24 Rx tablet,extended release 24 hr memantine 28 mg capsule 28 mg PO DAILY #30 ea 05/16/23 Unknown Rx sprinkle,extended release 24hr lisinopril 5 mg tablet 5 mg PO DAILY 03/08/24 04/24/24 History amiodarone 200 mg tablet 200 mg PO DAILY 04/28/24 04/25/24 History aspirin 81 mg tablet,delayed 81 mg PO DAILY 04/28/24 04/25/24 History release clopidogrel 75 mg tablet 75 mg PO DAILY 04/28/24 Unknown History fluorometholone 0.1 % eye 1 drp ophthalmic (eye) Q12H 04/28/24 04/25/24 History drops,suspension metoprolol tartrate 100 mg tablet 150 mg PO Q12H 04/28/24 04/25/24 History pantoprazole 40 mg tablet,delayed 40 mg PO DAILY 04/28/24 Unknown History release acetaminophen 500 mg tablet 1,000 mg (2 x 500 mg) PO TID PRN 06/20/24 04/23/24 Rx LOWER BACK PAIN 30 days #0 tabs doxycycline monohydrate 100 mg 100 mg PO BID 38 days #76 caps 06/20/24 Unknown Rx capsule carboxymethylcellulose sodium 1 % 1 drp ophthalmic (eye) BID 06/26/24 Unknown History eye drops (Artificial Tears (carboxymethylcellulose)) Allergy/AdvReac Type Severity Reaction Status Date / Time latex Allergy Unknown unknown Verified 06/26/24 05:05 carisoprodol Allergy Other Verified 06/26/24 05:05 itraconazole Allergy Other Verified 06/26/24 05:05 COVID-19 (SARS-CoV-2) AdvReac Other Verified 06/26/24 05:05 vaccine, jeanie Family History Mother CVA (cerebral vascular accident) Sister Hypertension Surgical History History of coronary artery stent placement History of left heart catheterization (07/02/19) History of angioplasty of peripheral vessel (10/23/13) History of coronary artery stent placement (10/07/15) History of back surgery History of shoulder surgery History of hernia repair History of tonsillectomy History of prostatectomy Social History housing: jail Smoking Status: Never smoker alcohol intake: never substance use type: does not use caffeine: Yes Type: tea what type of physical activity do you participate in: none seatbelt use: always do you feel safe at home: Yes ROS ROS ED ROS Narrative Please note review of systems may be unreliable secondary to history of dementia Constitutional Constitutional ED: Denies chills or fever(s) Eyes Eyes: Denies change in vision ENT ENT ED: Denies sore throat Cardiovascular Cardiovascular: Denies chest pain Respiratory/Chest Respiratory/Chest: Denies cough or dyspnea Gastrointestinal Gastrointestinal: Denies abdominal pain, diarrhea, nausea or vomiting Genitourinary Genitourinary ED: Denies dysuria Musculoskeletal Musculoskeletal: Denies myalgias Integumentary Denies rash Neurologic Neurologic: Denies headache(s) Hematologic/Lymphatic Hematologic/Lymphatic: Reports easy bleeding and easy bruising EXAM Physical Exam Const Vital Signs: 06/26/24 05:05 06/26/24 07:04 Temperature 97.6 F L Temperature Source Oral Pulse Rate 77 Respiratory Rate 16 Blood Pressure 137/58 H 99/87 H Blood Pressure Mean 84 91 Pulse Ox 98 Oxygen Delivery Method Room Air Positive well nourished and well developed General Appearance ED: well developed and pallor HEENT Reports dry mucous membranes HEENT Narrative: Normocephalic atraumatic No tongue or lip swelling no oral lesions no airway edema or compromise Mucous membranes are dry and tacky No secondary findings to suggest infection in the posterior pharynx Mouth ED: Yes dry mucous membranes Mouth: dry mucous membranes Eyes PERRL and EOMs intact bilaterally General Eye ED: Yes pale conjunctiva; Negative for scleral icterus Neck supple Neck Narrative: No nuchal rigidity or meningeal signs Resp normal respiratory effort and clear to auscultation bilaterally Resp Narrative: Breath sounds are diminished throughout but overall clear to auscultation without signs of respiratory distress Cardio regular rate and regular rhythm GI normal to inspection, nondistended, normoactive bowel sounds, non-tender, non-distended and no masses GI Narrative: No voluntary guarding or rigidity or pulsatile mass Auscultation: normoactive bowel sounds Palpation: soft Narrative: Patient has a large amount of maroon-colored stool/blood in his depends. There is no obvious prolapsed rectum Extremity Extremity Narrative: Patient has chronic changes to the bilateral lower extremities consistent with history of peripheral vascular disease and recent diagnosis of osteomyelitis Neuro CN's II-XII intact bilaterally Neuro Narrative: Patient is awake and alert and at his baseline mental status without focal neurologic deficit Sensorium / Orientation: alert Psych Psych Narrative: Patient has a flat affect Skin Skin Narrative: Skin is pale in color with capillary refill approximately 3 seconds in duration Chronic wound/extremity changes to the bilateral lower legs consistent with history peripheral vascular disease as well as recent diagnosis of osteomyelitis General Skin Exam: pallor MDM MDM MDM Narrative Medical decision making narrative: Patient arrived to the ER with stable vitals and his baseline mental status. His chart was reviewed and he does have extensive colonic diverticuli as well as known angiodysplastic lesions. This could be the cause of recurrent bleeding especially as he is on aspirin and Plavix. With concern for acute blood loss anemia with the recurrent GI bleed basic labs were ordered. I did not feel the need for repeat CTA of the abdomen and pelvis as he underwent this just a few weeks ago and also had a colonoscopy. Upon performing my rectal exam there was a large amount of maroon blood present and this correlates with his drop in hemoglobin to just above 7. Secondary to the acute blood loss anemia with recurrent GI bleed I discussed the case with the legal support assistant Dr. Smith. He states at this point as he is hemodynamically stable and at his baseline mental status he would not reverse the aspirin or Plavix. He states that he does not see the need to repeat a CTA at this time as this is most likely a diverticular bleed. He recommends that the patient receive blood and that he be observed. He feels that if the bleeding stops spontaneously then there will be no need for readmission especially as he has received 2 units of blood and that he can be [facility] but just stop the aspirin and Plavix to prevent rebleed. However if bleeding persists he does recommend observation to the medical service to in order to ensure that his anemia improves. At this time the patient's response to the 2 units of packed red blood cells as well as evaluation for recurrent GI bleeding is pending and therefore he will be signed out to the day physician Dr. Mayorga. Lab Data Attestation: I reviewed the patient's lab results. Labs: Laboratory Results - last 24 hr 06/26/24 06:00 WBC 9.5 RBC 2.31 L Hgb 7.3 L Hct 24.3 L MCV 105.2 H MCH 31.6 MCHC 30.0 L RDW Std Deviation 68.1 H RDW Coeff of Ayesha 17.5 H Plt Count 383 MPV 10.2 Immature Gran % (Auto) 0.900 Neut % (Auto) 74.5 H Lymph % (Auto) 9.7 L Bailey % (Auto) 10.8 H Eos % (Auto) 3.6 Baso % (Auto) 0.5 Absolute Neuts (auto) 7.1 Absolute Lymphs (auto) 0.92 Nucleated RBC % 0.2 Hypochromasia 1+ Anisocytosis 2+ PT 14.5 INR 1.1 APTT 29.3 Sodium 148 H Potassium 4.3 Chloride 109 H Carbon Dioxide 30.1 Anion Gap 9 BUN 56 H Creatinine 1.38 H Estim Creat Clear Calc 33.72 L Est GFR (MDRD) Non-Af 49 L BUN/Creatinine Ratio 40.7 H Glucose 124 H Calcium 9.1 Blood Type A POSITIVE Antibody Screen NEGATIVE Management Discussion w/another healthcare provider: Automotive Electrical 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 Discharge Plan Triage Chief Complaint: GI Bleed ED Provider: Michel Wiley Dx/Rx/DC Orders Clinical Impression: Acute blood loss anemia, Dementia, Essential (primary) hypertension, Debility, GI (gastrointestinal bleed) Prescriptions: No Action duloxetine 30 mg capsule,delayed release(DR/EC) 30 mg PO DAILY (DME) Motorized wheelchair See Rx Instructions .Route .MEDSUPPLY Qty: 1 0RF Rx Instructions: As directed memantine 28 mg capsule,sprinkle,ER 24hr 28 mg PO DAILY Qty: 30 6RF Rx Instructions: Week #4 and thereafter mirtazapine 30 mg Tablet 15 mg PO QHS furosemide [Lasix] 40 mg tablet 20 mg PO DAILY potassium chloride 10 mEq tablet,ER particles/crystals 40 meq PO DAILY doxycycline monohydrate 100 mg Capsule 100 mg PO BID 38 Days Qty: 76 0RF acetaminophen 500 mg Tablet 1,000 mg PO TID PRN (Reason: LOWER BACK PAIN) 30 Days Qty: 0 0RF lisinopril 5 mg tablet 5 mg PO DAILY amiodarone 200 mg tablet 200 mg PO DAILY aspirin 81 mg tablet,delayed release (DR/EC) 81 mg PO DAILY clopidogrel 75 mg tablet 75 mg PO DAILY fluorometholone 0.1 % drops,suspension 1 drp ophthalmic (eye) Q12H Rx Instructions: both eyes metoprolol tartrate 100 mg tablet 150 mg PO Q12H pantoprazole 40 mg tablet,delayed release (DR/EC) 40 mg PO DAILY Artificial Tears (cmc) 1 % drops 1 drp ophthalmic (eye) BID atorvastatin 20 mg tablet 20 mg PO QHS Qty: 90 3RF isosorbide mononitrate 60 mg tablet extended release 24 hr 60 mg PO DAILY Qty: 30 11RF Primary Care Provider: Dennys Manley Referrals: eDnnys Manley MD [Primary Care Provider] - Print Language: Bol[place]ian
[2024-06-26 06:44] LABS: Anion Gap 9 (5-15); BUN 56 mg/dL (4-19); BUN/Creat Ratio 40.7 RATIO (10-20); Calcium,Total 9.1 mg/dL (7.6-11.0); Carbon Dioxide 30.1 mmol/L (21.0-32.0); Chloride 109 mmol/L (98-108); Creatinine, Serum 1.38 mg/dL (0.70-1.20); EST Glomerular Filtration Rate 49 (>60); Estimated Creatinine Clearance 33.72 ml/min (50-250); Glucose 124 mg/dL (70-99); Potassium 4.3 mmol/L (3.3-5.1); Sodium Level 148 mmol/L (133-145)
[2024-06-26 06:51] LABS: Anisocytosis 2+; Hypochromasia 1+
--- NOTE | 2024-06-26 08:36 | ED.RN ---
Brief and sheets changed prior to starting blood.
== END 2024-06-26 16:46 | disposition intermediate care facility (04) ==
LOC: ED 05:19
PROVIDERS: Emergency Provider Emergency Medicine; PCP Internal Medicine; Visit Provider Emergency Medicine
DX: D62 Acute posthemorrhagic anemia (principal); F03.90 Unspecified dementia, unspecified severity, without behavioral disturbance, psychotic disturbance, mood disturbance, and anxiety; E13.9 Other specified diabetes mellitus without complications; R53.81 Other malaise; K57.30 Diverticulosis of large intestine without perforation or abscess without bleeding; Z79.82 Long term (current) use of aspirin; I10 Essential (primary) hypertension; I25.10 Atherosclerotic heart disease of native coronary artery without angina pectoris; Z95.0 Presence of cardiac pacemaker; E78.5 Hyperlipidemia, unspecified; I25.2 Old myocardial infarction; Z95.5 Presence of coronary angioplasty implant and graft; K92.2 Gastrointestinal hemorrhage, unspecified
CPT/HCPCS: 99285; 80048; 85025; 85610; 85730; 86850; 86900; 86901; P9016; A4216

== ENCOUNTER 2024-06-27 00:49 | Inpatient (IN) | payer MEDICARE, OTHER, SELFPAY ==
[2024-06-27 00:50] VITALS: BP 143/45; PULSE 78; RESP 18; TEMP 36.3; O2SAT 93; BMI 20.9
[2024-06-27 01:14] LABS: Absolute Lymphocyte Count 1.06 X10^3/uL (0.83-4.51); Absolute Neutrophil Count 6.2 X10^3/uL (2.0-7.7); Basophil# 0.06 X10^3/uL; Basophil% 0.7 % (0-1); Eosinophil# 0.23 X10^3/uL; Eosinophils% 2.6 % (0-5); Hematocrit 27.2 % (40-54); Hemoglobin 8.8 g/dL (13.0-16.5); Lymphocyte # 1.06 X10^3/ul (0.83-4.51); Lymphocyte % 12.2 % (19-41); Mean Corp Hgb Conc 32.4 g/dL (32-36); Mean Corpuscular Hgb 30.6 pg (27.0-32.0); Mean Corpuscular Volume 94.4 fL (80-94); Monocyte# 1.15 X10^3/uL; Monocyte% 13.2 % (0-10); NRBC Flagged by Analyzer 0.2 % (0-5); Neutrophil # 6.16 X10^3/uL (2.7-7.7); Neutrophil % 70.8 % (47-70); POSITIVE MORPHOLOGY YES; Platelet Count 307 K/mm3 (150-450); RBC Distribution Width CV 19.5 % (11.6-14.6); RBC Distribution Width SD 65.7 fl (35.1-43.9); Red Blood Count 2.88 M/mm3 (4.6-6.2); White Blood Count 8.7 K/mm3 (4.4-11.0)
[2024-06-27 01:17] LABS: Differential Indicated SCAN CRITERIA MET
[2024-06-27 01:22] LABS: Partial Thromboplast Time 27.5 Seconds (24.1-36.2)
[2024-06-27 01:26] LABS: International Normalized Ratio 1.1; Prothrombin Time (Protime)PT. 14.7 SECONDS (11.7-14.9)
--- NOTE | 2024-06-27 01:30 | ED.VIS.GI ---
HPI HPI - GI History of Present Illness Chief Complaint: GI Bleed Informant: patient and SNF Limited: dementia Narrative Narrative: Patient is an 88-year-old male with history of peripheral vascular disease, hypertension, hyperlipidemia, dementia, persistent atrial fibrillation status post pacemaker on aspirin and Plavix presenting back to the emergency room with bright red blood per rectum. Patient had a recent admission on 06/11 for GI bleeding and had colonoscopy which showed 3 bleeding angiodysplastic lesions that were treated with heater probe on 06/13. Was ultimately discharged on 06/20. Patient was seen in our ER last night for further GI bleeding. At that time was found to be anemic with a hemoglobin of 7.3. Received 2 units of packed red blood cells and was discharged back to his nursing facility. He arrived back at 5 PM. He had a bloody bowel movement with maroon/bright red blood at 610 and then a second episode. Was sent back to the emergency room for further evaluation given the continued bleeding. Patient is DNR CCA. Patient currently denies any pain or discomfort. [facility] Medical History Large bowel bleed Non-smoker Atrial fibrillation Diabetes Hallucinations Dementia Gait disorder Cancer Sleep apnea Chest pain Hypertension Carpal tunnel syndrome on both sides History of non-ST elevation myocardial infarction (NSTEMI) (07/02/19) UTI (urinary tract infection) Atrial fibrillation with RVR (05/28/20) Acute diarrheal illness Acute kidney injury Pneumonia due to COVID-19 virus (03/23/20) Septic shock PAD (peripheral artery disease) Delayed wound healing Debility Nonhealing ulcer of left lower extremity with fat layer exposed Non-healing ulcer of right foot with fat layer exposed Neuropathy Rectal prolapse Right bundle branch block (RBBB) Open wound of finger of left hand Chronic pain of right heel Ulcer of right lower extremity with fat layer exposed Ulcer of right heel Peripheral arterial occlusive disease Urinary incontinence Essential (primary) hypertension Spondylolisthesis Lumbar stenosis Peripheral neuropathy 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 DDD (degenerative disc disease) GERD (gastroesophageal reflux disease) Prostate cancer Obstructive sleep apnea Hyperlipidemia Home Medications ?Medication ?Instructions ?Recorded ?Last Taken ?Type duloxetine 30 mg capsule,delayed 30 mg PO DAILY DEPRESSION 03/06/19 04/25/24 History release atorvastatin 20 mg tablet 20 mg PO QHS CHOLESTEROL #90 tabs 06/10/19 04/24/24 Rx Motorized wheelchair #1 ea 06/29/22 Unknown Rx furosemide 40 mg tablet (Lasix) 20 mg PO DAILY FLUID 06/30/22 04/25/24 History mirtazapine 30 mg tablet 15 mg PO QHS DEPRESSION 06/30/22 04/24/24 History potassium chloride 10 mEq 40 meq PO DAILY SUPPLEMENT 06/30/22 04/24/24 History tablet,extended release(part/cryst) isosorbide mononitrate 60 mg 60 mg PO DAILY #30 tabs 04/20/23 04/25/24 Rx tablet,extended release 24 hr memantine 28 mg capsule 28 mg PO DAILY #30 ea 05/16/23 Unknown Rx sprinkle,extended release 24hr lisinopril 5 mg tablet 5 mg PO DAILY 03/08/24 04/24/24 History amiodarone 200 mg tablet 200 mg PO DAILY 04/28/24 04/25/24 History aspirin 81 mg tablet,delayed 81 mg PO DAILY 04/28/24 04/25/24 History release clopidogrel 75 mg tablet 75 mg PO DAILY 04/28/24 Unknown History fluorometholone 0.1 % eye 1 drp ophthalmic (eye) Q12H 04/28/24 04/25/24 History drops,suspension metoprolol tartrate 100 mg tablet 150 mg PO Q12H 04/28/24 04/25/24 History pantoprazole 40 mg tablet,delayed 40 mg PO DAILY 04/28/24 Unknown History release acetaminophen 500 mg tablet 1,000 mg (2 x 500 mg) PO TID PRN 06/20/24 04/23/24 Rx LOWER BACK PAIN 30 days #0 tabs doxycycline monohydrate 100 mg 100 mg PO BID 38 days #76 caps 06/20/24 Unknown Rx capsule carboxymethylcellulose sodium 1 % 1 drp ophthalmic (eye) BID 06/26/24 Unknown History eye drops (Artificial Tears (carboxymethylcellulose)) Allergy/AdvReac Type Severity Reaction Status Date / Time latex Allergy Unknown unknown Verified 06/27/24 00:50 carisoprodol Allergy Other Verified 06/27/24 00:50 itraconazole Allergy Other Verified 06/27/24 00:50 COVID-19 (SARS-CoV-2) AdvReac Other Verified 06/27/24 00:50 vaccine, jeanie Family History Mother CVA (cerebral vascular accident) Sister Hypertension Surgical History History of coronary artery stent placement History of left heart catheterization (07/02/19) History of angioplasty of peripheral vessel (10/23/13) History of coronary artery stent placement (10/07/15) History of back surgery History of shoulder surgery History of hernia repair History of tonsillectomy History of prostatectomy Social History housing: alf Smoking Status: Never smoker alcohol intake: never substance use type: does not use caffeine: Yes Type: tea what type of physical activity do you participate in: none seatbelt use: always do you feel safe at home: Yes ROS ROS ED Review of Systems ROS Unobtainable: due to mental status EXAM Physical Exam Const Vital Signs: 06/27/24 00:50 06/27/24 03:00 06/27/24 03:00 Temperature 97.3 F L 97.8 F Temperature Source Temporal Pulse Rate 78 60 60 Respiratory Rate 18 18 18 Blood Pressure 143/45 H 133/53 H 133/53 H Blood Pressure Mean 77 79 79 Pulse Ox 93 98 98 Oxygen Delivery Method Room Air Room Air Positive well nourished General Appearance ED: NAD and pallor HEENT Reports dry mucous membranes Mouth ED: Yes dry mucous membranes Mouth: dry mucous membranes Eyes PERRL General Eye ED: Negative for pale conjunctiva Neck supple and no JVD Resp normal respiratory effort and clear to auscultation bilaterally Cardio regular rate, regular rhythm and no murmurs GI non-tender and non-distended GI Narrative: Dark red blood on rectal exam. No clots. Neuro moves all extremities Sensorium / Orientation: alert Motor Exam: general weakness Psych mental status grossly normal and thought process normal Skin General Skin Exam: pallor; Negative for jaundice MDM MDM MDM Narrative Medical decision making narrative: Patient evaluated for recurrent/continued bright red blood per rectum/rectal bleeding. Differential includes acute blood loss, diverticular bleed, angiodysplasia lesion. Will obtain repeat labs and type and screen. Hemoglobin 8.8. It was 7.3 but then patient received 2 units packed red blood cells earlier today. Blood pressure initially normal but does downtrend mildly. Given a liter of IV fluid. BUN is mildly uptrending. Creatinine baseline. Patient given a liter of IV fluids. Case discussed with Dr. Luis CARD. Given his recurrent bleeding he does request repeat imaging?CTA abdomen pelvis and is agreeable with admission. Question of this could also be an upper GI bleed at this time. Started on IV Protonix. No further recommendations. Will discuss with hospitalist. Patient remains hemodynamic stable. CTA does not show any acute process. Is admitted. History & Record Review Additional record(s) reviewed:: Prior inpatient record (Discharge summary from 06/20/2024) Lab Data Attestation: I reviewed the patient's lab results. Labs: Laboratory Results - last 24 hr 06/27/24 06/27/24 00:58 01:10 WBC 8.7 RBC 2.88 L Hgb 8.8 L Hct 27.2 L MCV 94.4 H D MCH 30.6 MCHC 32.4 D RDW Std Deviation 65.7 H RDW Coeff of Ayesha 19.5 H Plt Count 307 MPV 10.0 Immature Gran % (Auto) 0.500 Neut % (Auto) 70.8 H Lymph % (Auto) 12.2 L Mcminn % (Auto) 13.2 H Eos % (Auto) 2.6 Baso % (Auto) 0.7 Absolute Neuts (auto) 6.2 Absolute Lymphs (auto) 1.06 Nucleated RBC % 0.2 Differential Comment SCANNED Platelet Estimate ADEQUATE Polychromasia 1+ Anisocytosis 2+ PT 14.7 INR 1.1 APTT 27.5 Sodium 145 Potassium 4.0 Chloride 107 Carbon Dioxide 25.9 Anion Gap 12 BUN 53 H Creatinine 1.25 H Estim Creat Clear Calc 37.51 L Est GFR (MDRD) Non-Af 55 L BUN/Creatinine Ratio 42.1 H Glucose 104 H Lactic Acid 2.0 Calcium 8.9 Total Bilirubin 0.37 AST 41 H ALT 15 Alkaline Phosphatase 71 Total Protein 5.4 L Albumin 2.4 L Globulin 3.0 Albumin/Globulin Ratio 0.8 L Radiography Diagnostic Testing: Clinical Impression(s) from Imaging Studies Abdomen/Pelvis CTA 06/27/24 02:09 IMPRESSION: Diverticulosis without diverticulitis. No obvious active extravasation of contrast identified at this time to suggest active GI bleed. Circumferential appearing curvilinear high density at the lower rectum is again noted, unchanged. Asymmetric decreased left renal nephrogram and asymmetric left renal scarring, atrophy with note of a focal high-grade near occlusive appearing narrowing of the origin of the left renal artery for example coronal 56 with contrast seen beyond. Recommend vascular consult. Small right and trace left pleural effusions with partial passive collapse, atelectasis at the right base. One or more dose reduction techniques were used (e.g., Automated exposure control, adjustment of the mA and/or kV according to patient size, use of iterative reconstruction technique). Reading Location: [id number] Management Discussion w/another healthcare provider: Hospitalist and Popcorn Attendant Discharge Plan Triage Chief Complaint: GI Bleed ED Provider: Nelsy Mcgrath Dx/Rx/DC Orders Clinical Impression: GI (gastrointestinal bleed), Acute blood loss anemia Prescriptions: No Action duloxetine 30 mg capsule,delayed release(DR/EC) 30 mg PO DAILY (DME) Motorized wheelchair See Rx Instructions .Route .MEDSUPPLY Qty: 1 0RF Rx Instructions: As directed memantine 28 mg capsule,sprinkle,ER 24hr 28 mg PO DAILY Qty: 30 6RF Rx Instructions: Week #4 and thereafter mirtazapine 30 mg Tablet 15 mg PO QHS furosemide [Lasix] 40 mg tablet 20 mg PO DAILY potassium chloride 10 mEq tablet,ER particles/crystals 40 meq PO DAILY doxycycline monohydrate 100 mg Capsule 100 mg PO BID 38 Days Qty: 76 0RF acetaminophen 500 mg Tablet 1,000 mg PO TID PRN (Reason: LOWER BACK PAIN) 30 Days Qty: 0 0RF lisinopril 5 mg tablet 5 mg PO DAILY amiodarone 200 mg tablet 200 mg PO DAILY aspirin 81 mg tablet,delayed release (DR/EC) 81 mg PO DAILY clopidogrel 75 mg tablet 75 mg PO DAILY fluorometholone 0.1 % drops,suspension 1 drp ophthalmic (eye) Q12H Rx Instructions: both eyes metoprolol tartrate 100 mg tablet 150 mg PO Q12H pantoprazole 40 mg tablet,delayed release (DR/EC) 40 mg PO DAILY Artificial Tears (cmc) 1 % drops 1 drp ophthalmic (eye) BID atorvastatin 20 mg tablet 20 mg PO QHS Qty: 90 3RF isosorbide mononitrate 60 mg tablet extended release 24 hr 60 mg PO DAILY Qty: 30 11RF Primary Care Provider: Dennys Manley Referrals: Dennys Manley MD [Primary Care Provider] - Print Language: Thai Disposition Disposition: Acute Care Hospital [facility]
[2024-06-27 01:32] LABS: ALB/GLOB Ratio 0.8 RATIO (0.9-2.4); AST(SGOT) 41 U/L (<=37); Alanine Aminotransfer ALT/SGPT 15 U/L (<=46); Albumin, Serum 2.4 g/dL (3.4-4.8); Alkaline Phosphatase 71 U/L (40-129); Anion Gap 12 (5-15); BUN 53 mg/dL (4-19); BUN/Creat Ratio 42.1 RATIO (10-20); Calcium,Total 8.9 mg/dL (7.6-11.0); Carbon Dioxide 25.9 mmol/L (21.0-32.0); Chloride 107 mmol/L (98-108); Creatinine, Serum 1.25 mg/dL (0.70-1.20); EST Glomerular Filtration Rate 55 (>60); Estimated Creatinine Clearance 37.51 ml/min (50-250); Glucose 104 mg/dL (70-99); Protein, Total 5.4 g/dL (5.9-8.4); Sodium Level 145 mmol/L (133-145); Total Bilirubin 0.37 mg/dL (0.00-1.30)
[2024-06-27] MEDS: 0.9% Normal Saline (1000mL) 1,000 ML 999 ML IV (01:57)
[2024-06-27 02:05] LABS: Anisocytosis 2+; Differential Comment SCANNED; Platelet Estimate ADEQUATE (ADEQ); Polychromasia 1+
--- NOTE | 2024-06-27 02:09 | CT_ITS ---
PROCEDURE: CTA ABD/PELVIS W/WO CONTRAST REASON FOR EXAM: GI BLEEDING TECHNIQUE: CT of the abdomen and pelvis with contrast with coronal and sagittal reformatted images IV CONTRAST: 100 cc Isovue 370 COMPARISON: 06/11/2024 FINDINGS: Appearance of mild cylindrical bronchiectasis at the visualized lower lobes. Small right and trace left pleural effusions with partial passive collapse, atelectasis at the right base. Pacemaker. Very small amount of layering gravel versus vicarious excretion of contrast gallbladder fundus. Nondistended, noninflamed appearing gallbladder. Tiny low-density liver focus subcapsular possible small hepatic cyst again seen axial 52, too small to further characterize. The adrenal glands, pancreas and spleen appear within limits. Asymmetric decreased left renal nephrogram and asymmetric left renal scarring, atrophy with note of a focal high-grade near occlusive appearing narrowing of the origin of the left renal artery for example coronal 56 with contrast seen beyond. Recommend vascular consult. Nonobstructing left renal stones. A couple of possible small renal cysts are too small to further characterize. Focal narrowing origin of the celiac trunk suggested sagittal 82 with contrast seen beyond. Aortoiliac atherosclerotic changes without abdominal aortic aneurysm. Left common iliac and external iliac stents again seen and appear patent. Apparent occlusion of right sided femoral partially imaged graft. No bowel dilation or free air. Normal caliber appendix without secondary signs. Diverticulosis without diverticulitis. No obvious active extravasation of contrast identified at this time to suggest active GI bleed. Circumferential appearing curvilinear high density at the lower rectum is again noted, unchanged. Previous hernia repair noted. No free fluid. Bladder appears within limits. Multilevel spondylosis/discogenic change segments of osseous fusion and L5-S1 left-sided hardware again noted associated with areas of central and foraminal appearing narrowing again noted. CT/CTA Abd/Pelvis W/WO Contrast IMPRESSION: Diverticulosis without diverticulitis. No obvious active extravasation of contr ast identified at this time to suggest active GI bleed. Circumferential appearing curvilinear high density at the lower rectum is again noted, unchanged. Asymmetric decreased left renal nephrogram and asymmetric left renal scarring, atrophy with note of a focal high-grade near occlusive appearing narrowing of the origin of the left renal artery for exampl e coronal 56 with contrast seen beyond. Recommend vascular consult. Small right and trace left pleural effusions with partial passive collapse, ate lectasis at the right base. One or more dose reduction techniques were used (e.g., Automated exposure contr ol, adjustment of the mA and/or kV according to patient size, use of iterative reconstruction technique). Reading Location: [id number]
[2024-06-27] MEDS: Pantoprazole Sodium 40 MG in 0.9% Normal Saline (100mL MB+) 100 ML 330 MG IV (02:35)
[2024-06-27 03:00] VITALS: BP 133/53; PULSE 60; RESP 18; TEMP 36.6; O2SAT 98
--- NOTE | 2024-06-27 03:22 | HP.PCM.HOS_ITS ---
[facility] - General General Date of Admission: 06/27/24 Date of Service: 06/27/24 Chief Complaint: Recurrent GI Bleed. HPI Narrative FEI CHANDLER, is a 88 M with a past medical history of essential hypertension; on lisinopril, metoprolol and furosemide, hyperlipidemia; on atorvastatin, CAD; s/p NSTEMI with multiple subsequent stents on ISMO on BASA and clopidogrel, history of atrial fibrillation (2020); not on anticoagulation, history of arrhythmia; s/p PPM, history of RBBB, severe PAD; s/p stent (2013) with history of chronic ulcers on both feet, history of LGIB (06/2022), history of rectal prolapse, ZEYNEP, SCOTT, peripheral neuropathy, history of mild cognitive impairment with hallucinations; on memantine, history of depression; on duloxetine and mirtazapine, history of prostate cancer; s/p prostatectomy, history of UTI, history of septic shock, GERD, history of COVID-19 (2019), history of hernia repair, OA; with stenosis of lumbar spine plus DDD; s/p back surgery with chronic back pain along with chronic debility and gait disorder, DNR-CCA; without intubation CODE STATUS and recent admission here from June 12, 2024 to June 20, 2024 with diagnosis of LGIB with BRBPR on BASA and clopidogrel with subsequent colonoscopy by Dr. Smith of gastroenterology on June 13, 2024 that showed polyps in ascending colon removed with hot snare, large polyp in hepatic flexure that was removed and diverticulosis with rectal prolapse and 3 bleeding angiodysplastic lesions that were treated with heater probe with hemoglobin remaining stable in the ~9-10 g/dL range during the rest of the admission complicated by Right ankle osteomyelitis; s/p debridement on June 17, 2024 with wound culture growing MSSA treated with Ancef and discharged on oral doxycycline twice daily for 6 weeks with stop date on July 31, 2024 who currently resides at [facility] presents to [facility] ER complaining of recurrent LGIB with BRBPR. Mr. Chandler is not a reliable historian at this time so information was taken from chart, medical staff and computer. According to the records he actually came to this ER last night for recurrent LGIB and was found to be anemic with a hemoglobin of 7.3 g/dL and received 2 units of PRBC's and was then discharged back to his facility. He apparently arrived back at the facility at approximately 5 PM and then promptly had another episode of LGIB with BRBPR at 6:10 PM and was sent back to the ER for further evaluation and treatment. There was no report of fever, chills, nausea, vomiting, abdominal pain, chest pain, shortness of breath or headache. In the ER he was diagnosed with recurrent LGIB with BRBPR likely due to Adverse Drug Reaction to dual-antiplatelet therapy with BASA and clopidogrel with hemoglobin of 8.8 g/dL with elevated BUN of 53 mg/dL with normal serum creatinine of 1.25 mg/dL suggestive of additional possible upper GI source present on admission complicated by CT evidence of asymmetric decreased Left renal nephrogram and asymmetric Left renal scarring, atrophy with no evidence of a focal high-grade near occlusive appearing narrowing of the origin of the Left renal artery with vascular consult recommended - in addition to diverticulosis without diverticulitis and no obvious active extravasation of contrast identified to identify active GI bleed with circumferential appearing curvilinear high density at the lower rectum, unchanged from previous. I discussed this case at some length with the ER physician with both of us agree and patient may benefit from palliative care consultation given his recurrent LGIB and essentially untreatable Left renal artery stenosis with palliative care consultation pending in the a.m. He was then admitted to the PCU for ongoing care for a stay that is expected to extend beyond 2 midnights. [facility] Medical History Large bowel bleed Non-smoker Atrial fibrillation Diabetes Hallucinations Dementia Gait disorder Cancer Sleep apnea Chest pain Hypertension Carpal tunnel syndrome on both sides History of non-ST elevation myocardial infarction (NSTEMI) (07/02/19) UTI (urinary tract infection) Atrial fibrillation with RVR (05/28/20) Acute diarrheal illness Acute kidney injury Pneumonia due to COVID-19 virus (03/23/20) Septic shock PAD (peripheral artery disease) Delayed wound healing Debility Nonhealing ulcer of left lower extremity with fat layer exposed Non-healing ulcer of right foot with fat layer exposed Neuropathy Rectal prolapse Right bundle branch block (RBBB) Open wound of finger of left hand Chronic pain of right heel Ulcer of right lower extremity with fat layer exposed Ulcer of right heel Peripheral arterial occlusive disease Urinary incontinence Essential (primary) hypertension Spondylolisthesis Lumbar stenosis Peripheral neuropathy Retinopathy due to secondary diabetes Atherosclerotic heart disease of [place] coronary artery without angina pectoris DDD (degenerative disc disease) GERD (gastroesophageal reflux disease) Prostate cancer Obstructive sleep apnea Hyperlipidemia Home Medications ?Medication ?Instructions ?Recorded ?Last Taken ?Type duloxetine 30 mg capsule,delayed 30 mg PO DAILY DEPRES DOMINGO 03/06/19 04/25/24 History release atorvastatin 20 mg tablet 20 mg PO QHS CHOLESTEROL #90 tabs 06/10/19 04/24/24 Rx Motorized wheelchair #1 ea 06/29/22 Unknown Rx furosemide 40 mg tablet (Lasix) 20 mg PO DAILY FLUID 0 06/30/22 04/25/24 History mirtazapine 30 mg tablet 15 mg PO QHS DEPRESSION 06/1504/24/24 History potassium chloride 10 mEq 40 meq PO DAILY SUPPLEMENT 0 06/30/22 04/24/24 History tablet,extended release(part/cryst) isosorbide mononitrate 60 mg 60 mg PO DAILY #30 tabs 0 04/20/23 04/25/24 Rx tablet,extended release 24 hr memantine 28 mg capsule 28 mg PO DAILY #30 ea Unknown Rx sprinkle,extended release 24hr lisinopril 5 mg tablet 5 mg PO DAILY 03/08/2404/24 History amiodarone 200 mg tablet 200 mg PO DAILY 04/28/2401/09 History aspirin 81 mg tablet,delayed 81 mg PO DAILY 04/28/24 0 04/25/24 History release clopidogrel 75 mg tablet 75 mg PO DAILY 04/28/24 Unkn own History fluorometholone 0.1 % eye 1 drp ophthalmic (eye) Q12H 04/28/24 04/25/24 History drops,suspension metoprolol tartrate 100 mg tablet 150 mg PO Q12H 04/2804/25/24 History pantoprazole 40 mg tablet,delayed 40 mg PO DAILY 04/28 Unknown History release acetaminophen 500 mg tablet 1,000 mg (2 x 500 mg) PO T ID PRN 06/20/24 04/23/24 Rx LOWER BACK PAIN 30 days #0 tabs doxycycline monohydrate 100 mg 100 mg PO BID 38 days # 76 caps 06/20/24 Unknown Rx capsule carboxymethylcellulose sodium 1 % 1 drp ophthalmic (ey e) BID 06/26/24 Unknown History eye drops (Artificial Tears (carboxymethylcellulose)) Allergy/AdvReac Type Severity Reaction Status Date / Time latex Allergy Unknown unknown Verified 06/27/24 00:50 carisoprodol Allergy Other Verified 06/27/24 00:50 itraconazole Allergy Other Verified 06/27/24 00:50 COVID-19 (SARS-CoV-2) AdvReac Other Verified 06/27/24 00:50 vaccine, jeanie Family History Mother CVA (cerebral vascular accident) Sister Hypertension Surgical History History of coronary artery stent placement History of left heart catheterization (07/02/19) History of angioplasty of peripheral vessel (10/23/13) History of coronary artery stent placement (10/07/15) History of back surgery History of shoulder surgery History of hernia repair History of tonsillectomy History of prostatectomy Social History housing: jail Smoking Status: Never smoker alcohol intake: never substance use type: does not use caffeine: Yes Type: tea what type of physical activity do you participate in: none seatbelt use: always do you feel safe at home: Yes ROS ROS Narrative For review of systems was not possible due to patient's chronic dementia. Vital Signs Vital Signs Vital Signs: 06/27/24 00:50 06/27/24 03:00 06/27/24 03:00 Temperature 97.3 F L 97.8 F Temperature Source Temporal Pulse Rate 78 60 60 Respiratory Rate 18 18 18 Blood Pressure 143/45 H 133/53 H 133/53 H Blood Pressure Mean 77 79 79 Pulse Ox 93 98 98 Oxygen Delivery Method Room Air Room Air Weight Weight: 145 lb 15.136 oz Body Mass Index (BMI) 20.9 Physical Exam Const alert, no apparent distress and average body habitus Constitutional Narrative: Patient is confused and is chronically ill appearance. General Appearance: cooperative Orientation / Consciousness: confused HEENT normocephalic, head/scalp atraumatic and hearing grossly normal bilaterally HEENT Narrative: Mucous membranes dry. Eyes PERRL, EOMs intact bilaterally and conjunctivae normal Neck no lymphadenopathy, supple and no JVD Resp normal respiratory effort, no retractions, no use of accessory muscles and clear to auscultation bilaterally Cardio regular rate and regular rhythm GI normal to inspection, nondistended, normoactive bowel sounds, soft to palpation, non-tender and non-distended Extremity no clubbing, cyanosis or edema Skin Skin Narrative: Right and Left lower extremities are TIFFANIE wrapped at this time. Patient has no evidence of rash. Neuro CN's II-XII intact bilaterally, moves all extremities and no focal motor deficits Sensorium / Orientation: awake, alert, oriented to person and oriented to place Speech: speech normal Psych affect normal Results Medical Records Data Attestation: I reviewed the patient's medical records Lab / Micro Data Attestation: I reviewed the patient's lab results. 06/27/24 00:58 06/27/24 00:58 Labs: Laboratory Results - last 24 hr 06/27/24 00:58: WBC 8.7, RBC 2.88 L, Hgb 8.8 L, Hct 27.2 L, MCV 94.4 H D, MCH 30.6, MCHC 32.4 D, RDW Std Deviation 65.7 H, RDW Coeff of Ayesha 19.5 H, Plt Count 307, MPV 10.0, Immature Gran % (Auto) 0.500, Neut % (Auto) 70.8 H, Lymph % (Auto) 12.2 L, [place] % (Auto) 13.2 H, Eos % (Auto) 2.6, Baso % (Auto) 0.7, Absolute Neuts (auto) 6.2, Absolute Lymphs (auto) 1.06, Nucleated RBC % 0.2, Differential Comment SCANNED, Platelet Estimate ADEQUATE, Polychromasia 1+, Anisocytosis 2+, PT 14.7, INR 1.1, APTT 27.5, Sodium 145, Potassium 4.0, Chloride 107, Carbon Dioxide 25.9, Anion Gap 12, BUN 53 H, Creatinine 1.25 H, E stim Creat Clear Calc 37.51 L, Est GFR (MDRD) Non-Af 55 L, BUN/Creatinine Ratio 42.1 H, Glucose 104 H, Calcium 8.9, Total Bilirubin 0.37, AST 41 H, ALT 15, Alkaline Phosphatase 71, Total Protein 5.4 L, Albumin 2.4 L, Globulin 3.0, A lbumin/Globulin Ratio 0.8 L 06/27/24 01:10: Lactic Acid 2.0 Imaging Radiology Impression Abdomen/Pelvis CTA 06/27/24 02:09 IMPRESSION: Diverticulosis without diverticulitis. No obvious active extravasation of contrast identified at this time to suggest active GI bleed. Circumferential appearing curvilinear high density at the lower rectum is again noted, unchanged. Asymmetric decreased left renal nephrogram and asymmetric left renal scarring, atrophy with note of a focal high-grade near occlusive appearing narrowing of the origin of the left renal artery for example coronal 56 with contrast seen beyond. Recommend vascular consult. Small right and trace left pleural effusions with partial passive collapse, atelectasis at the right base. One or more dose reduction techniques were used (e.g., Automated exposure control, adjustment of the mA and/or kV according to patient size, use of iterative reconstruction technique). Reading Location: [id number] Assessment & Plan Assessment/Plan (1) LGI bleed: (2) BRBPR (bright red blood per rectum): (3) Adverse drug reaction: QUALIFIERS: Encounter type: initial encounter Qualified Code(s): T50.905A - Adverse effect of unspecified drugs, medicaments and biological substances, initial encounter (4) Renal artery stenosis: (5) History of osteomyelitis: (6) Dementia: QUALIFIERS: Dementia behavioral or psychological symptom: without behavioral, psychotic, or mood disturbance or anxiety Dementia severity: u nspecified severity Dementia type: unspecified type Qualified Code(s): F03.90 - Unspecified dementia, unspecified severity, without behavioral disturbance, psychotic disturbance, mood disturbance, and anxiety PLAN: Plan 1. LGIB with BRBPR; recurrent with history of LGIB (06/12/2024 & 06/2022) - Admit to PCU. Keep strict NPO and start pantoprazole IV infusion. Type & Screen blood and transfuse for hemoglobin <7 g/dL. Finally, we will consult gastroenterology to see this patient on-rounds in the AM for endoscopy this admission with help appreciated in advance. 2. Adverse Drug Reaction to dual-antiplatelet therapy used to treat likely triggering #1 CAD; s/p NSTEMI with multiple subsequent stents on BASA, clopidogrel and ISMO plus PVD; with LE stents - Patient cannot tolerate this regimen so it should not be restarted if possible. Palliative Care consultation pending due to serial readmission and consistent inability to tolerate vital medications. 3. CT evidence of critical Left renal artery stenosis complicating #1 & #2 - Vascular surgery will not be consulted due to patient's brittle condition and recurrent GI bleeding. He is not a good candidate for aggressive treatment. His blood pressure is controlled and he is essentially asymptomatic regarding this particular issue at this time. Therefore, we will consult palliative care to see this patient on rounds in a.m. for further recommendations without appreciated in advance. 4. Recent admission here from June 12, 2024 to June 20, 2024 with diagnosis of LGIB with BRBPR on BASA and clopidogrel with subsequent colonoscopy by Dr. Smith of gastroenterology on June 13, 2024 that showed polyps in ascending colon removed with hot snare, large polyp in hepatic flexure that was removed and diverticulosis with rectal prolapse and 3 bleeding angiodysplastic lesions that were treated with heater probe with hemoglobin remaining stable in the ~9- 10 g/dL range during the rest of the admission complicated by Right ankle osteomyelitis; s/p debridement on June 17, 2024 with wound culture growing MSSA treated with Ancef and discharged on doxycycline for 6 weeks with stop date on July 31, 2024 adding to the medical complexity of #1 - #3 - Noted. We will cover him with IV doxycycline while he is NPO. 5. History of mild cognitive impairment with hallucinations that has now progressed to Dementia; on memantine adding to the burden of disease outlined from #1 - #5 - Continue supportive care as outlined above and below and monitor for improvement. Check TSH. 6. Essential Hypertension; on lisinopril, metoprolol and furosemide - Hold scheduled antihypertensives in light of #1. 7. Hyperlipidemia; on atorvastatin - Restart statin when patient cleared for oral intake. 8. History of atrial fibrillation (2020); on amiodarone but not on anticoagulation - Stable with patient currently in NSR. 9. History of arrhythmia; s/p PPM - Noted. 10. History of RBBB - Noted. 11. History of rectal prolapse - Stable. 12. GERD; with history of EGD that only revealed a small hiatal hernia (06/2022) - Noted. 13. ZEYNEP -avoid nocturnal CPAP to avoid insufflating bowel and exacerbating #1. 14. SCOTT - Stable with hemoglobin of 8.8 g/dL and MCV of 94.4 fL present on admission. 15. Peripheral neuropathy - Stable with patient currently not on treatment. 16. History of depression; on duloxetine and mirtazapine - Resume current therapy when patient is cleared for oral intake. 17. History of prostate cancer; s/p prostatectomy - Noted. 18. History of UTI - Noted with recurrence this admission outlined in #3. 19. History of septic shock - Noted. 20. History of COVID-19 (2019) - Noted. 21. History of hernia repair - Noted. 22. OA; with stenosis of lumbar spine plus DDD; s/p back surgery with chronic back pain along with chronic debility and gait disorder who currently resides at [facility] - Noted. 23. DVT/GI prophylaxis - SCD's only in light of #1. Pantoprazole IV infusion started for #1. Total time: Approximately (but not less than) 75 minutes. Charges/Coding Visit Charges Inpatient E&M: 34420 Init Hosp L3
[2024-06-27 05:00] VITALS: BP 132/50; PULSE 60; RESP 16; TEMP 36.6; O2SAT 99
[2024-06-27] MEDS: 0.9% Normal Saline (1000mL) 1,000 ML 100 ML IV (05:38)
[2024-06-27] MEDS: Pantoprazole Sodium 80 MG in 0.9% Normal Saline (100mL Bag) 80 ML 10 MG CONT INF ×2 (05:40→15:51)
[2024-06-27 05:48] VITALS: BMI 19.5
[2024-06-27 06:31] LABS: Magnesium 1.9 mg/dL (1.5-2.2)
[2024-06-27 06:50] LABS: Absolute Lymphocyte Count 0.89 X10^3/uL (0.83-4.51); Absolute Neutrophil Count 5.4 X10^3/uL (2.0-7.7); Basophil# 0.05 X10^3/uL; Basophil% 0.7 % (0-1); Eosinophil# 0.23 X10^3/uL; Eosinophils% 3.1 % (0-5); Hemoglobin 8.3 g/dL (13.0-16.5); Lymphocyte # 0.89 X10^3/ul (0.83-4.51); Mean Corp Hgb Conc 31.9 g/dL (32-36); Mean Corpuscular Hgb 30.7 pg (27.0-32.0); Mean Corpuscular Volume 96.3 fL (80-94); Mean Platelet Vol. 9.8 fl (6.2-12.0); Monocyte# 0.83 X10^3/uL; Monocyte% 11.2 % (0-10); NRBC Flagged by Analyzer 0.4 % (0-5); Neutrophil # 5.37 X10^3/uL (2.7-7.7); Neutrophil % 72.1 % (47-70); POSITIVE MORPHOLOGY YES; Platelet Count 294 K/mm3 (150-450); RBC Distribution Width CV 19.6 % (11.6-14.6); RBC Distribution Width SD 68.1 fl (35.1-43.9); White Blood Count 7.4 K/mm3 (4.4-11.0)
[2024-06-27 06:52] LABS: Differential Indicated SCAN CRITERIA MET
[2024-06-27 07:27] LABS: Anisocytosis 2+; Differential Comment SCANNED; Platelet Estimate ADEQUATE (ADEQ); Polychromasia 1+
[2024-06-27 09:15] LABS: Phosphorus 3.8 mg/dL (2.7-4.5)
[2024-06-27 09:25] VITALS: BP 145/58; PULSE 60; RESP 20; TEMP 36.6; O2SAT 94
[2024-06-27 09:43] LABS: BUN 48 mg/dL (4-19); Creatinine, Serum 1.22 mg/dL (0.70-1.20); Glucose 98 mg/dL (70-99)
[2024-06-27 09:44] LABS: ALB/GLOB Ratio 0.9 RATIO (0.9-2.4); AST(SGOT) 36 U/L (<=37); Alanine Aminotransfer ALT/SGPT 20 U/L (<=46); Albumin, Serum 2.4 g/dL (3.4-4.8); Alkaline Phosphatase 69 U/L (40-129); Anion Gap 11 (5-15); BUN/Creat Ratio 39.3 RATIO (10-20); Calcium,Total 8.5 mg/dL (7.6-11.0); Chloride 112 mmol/L (98-108); EST Glomerular Filtration Rate 57 (>60); Estimated Creatinine Clearance 35.94 ml/min (50-250); Globulin 2.7 g/dL (2.2-4.2); Protein, Total 5.1 g/dL (5.9-8.4); Sodium Level 148 mmol/L (133-145); Total Bilirubin 0.36 mg/dL (0.00-1.30)
[2024-06-27] MEDS: Doxycycline 100 MG in 0.9% Normal Saline (250mL Bag) 250 ML 250 MG IV ×2 (10:36→21:17)
--- NOTE | 2024-06-27 12:59 | CASEMGMT ---
MARISOL placed a consult for hospice. MARISOL met with patient's son Wesley and confirmed they would like to talk with hospice. Patient was sleeping. MARISOL explained to Wesley how the process works. MARISOL called [facility] and spoke with Anjana regarding referral. MARISOL also faxed information. Lanny MCMILLAN
--- NOTE | 2024-06-27 14:57 | WOUNDNOTE ---
wound photo: right lateral ankle/foot
--- NOTE | 2024-06-27 14:57 | WOUNDNOTE ---
wound photo: right foot
--- NOTE | 2024-06-27 14:58 | WOUNDNOTE ---
wound photo: left foot
[2024-06-27 15:08] VITALS: BP 166/63; PULSE 66; RESP 18; TEMP 36.4; O2SAT 95
--- NOTE | 2024-06-27 15:41 | CASEMGMT ---
MARISOL called Hospice and they will be meeting with patient and family tomorrow Heladio 3-14 at 9:30am. MARISOL notified RN, charge rn, and physician. Lanny MCMILLAN
--- NOTE | 2024-06-27 18:18 | CON.PCM.GI_ITS ---
HPI Consult Data Date of Consult: 06/27/24 HPI Narrative Reason for Consultation: GI bleed HPI Narrative: FEI OLEARY, is a 88-year-old male with history of peripheral vascular disease, hypertension, hyperlipidemia, dementia, persistent atrial fibrillation status post pacemaker on aspirin and Plavix presenting back to the emergency room with bright red blood per rectum. Patient had a recent admission on 06/11 for GI bleeding and had colonoscopy which showed 3 bleeding angiodysplastic lesions that were treated with heater probe on 06/13. Was ultimately discharged on 06/20. Patient was seen in the ER last night for further GI bleeding. At that time was found to be anemic with a hemoglobin of 7.3. Received 2 units of packed red blood cells and was discharged back to his nursing facility. He arrived back at 5 PM. He had a bloody bowel movement with maroon/bright red blood at 610 and then a second episode. Was sent back to the emergency room for further evaluation given the continued bleeding. Patient is DNR CCA. Patient currently denies any pain or discomfort. [facility] Medical History Large bowel bleed Non-smoker Atrial fibrillation Diabetes Hallucinations Dementia Gait disorder Cancer Sleep apnea Chest pain Hypertension Carpal tunnel syndrome on both sides History of non-ST elevation myocardial infarction (NSTEMI) (07/02/19) UTI (urinary tract infection) Atrial fibrillation with RVR (05/28/20) Acute diarrheal illness Acute kidney injury Pneumonia due to COVID-19 virus (03/23/20) Septic shock PAD (peripheral artery disease) Delayed wound healing Debility Nonhealing ulcer of left lower extremity with fat layer exposed Non-healing ulcer of right foot with fat layer exposed Neuropathy Rectal prolapse Right bundle branch block (RBBB) Open wound of finger of left hand Chronic pain of right heel Ulcer of right lower extremity with fat layer exposed Ulcer of right heel Peripheral arterial occlusive disease Urinary incontinence Essential (primary) hypertension Spondylolisthesis Lumbar stenosis Peripheral neuropathy 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 DDD (degenerative disc disease) GERD (gastroesophageal reflux disease) Prostate cancer Obstructive sleep apnea Hyperlipidemia Home Medications ?Medication ?Instructions ?Recorded ?Last Taken ?Type duloxetine 30 mg capsule,delayed 30 mg PO DAILY [address] 03/06/19 04/25/24 History release atorvastatin 20 mg tablet 20 mg PO QHS CHOLESTEROL #90 tabs 06/10/19 04/24/24 Rx Motorized wheelchair #1 ea 06/29/22 Unknown Rx furosemide 40 mg tablet (Lasix) 20 mg PO DAILY FLUID 0 06/30/22 04/25/24 History mirtazapine 30 mg tablet 15 mg PO QHS DEPRESSION 06/1504/24/24 History potassium chloride 10 mEq 40 meq PO DAILY SUPPLEMENT 0 06/30/22 04/24/24 History tablet,extended release(part/cryst) isosorbide mononitrate 60 mg 60 mg PO DAILY #30 tabs 0 04/20/23 04/25/24 Rx tablet,extended release 24 hr memantine 28 mg capsule 28 mg PO DAILY #30 ea Unknown Rx sprinkle,extended release 24hr lisinopril 5 mg tablet 5 mg PO DAILY 03/08/2404/24 History amiodarone 200 mg tablet 200 mg PO DAILY 04/28/2401/09 History aspirin 81 mg tablet,delayed 81 mg PO DAILY 04/28/24 0 04/25/24 History release clopidogrel 75 mg tablet 75 mg PO DAILY 04/28/24 Unkn own History fluorometholone 0.1 % eye 1 drp ophthalmic (eye) Q12H 04/28/24 04/25/24 History drops,suspension metoprolol tartrate 100 mg tablet 150 mg PO Q12H 04/2804/25/24 History pantoprazole 40 mg tablet,delayed 40 mg PO DAILY 04/28 Unknown History release acetaminophen 500 mg tablet 1,000 mg (2 x 500 mg) PO T ID PRN 06/20/24 04/23/24 Rx LOWER BACK PAIN 30 days #0 tabs doxycycline monohydrate 100 mg 100 mg PO BID 38 days # 76 caps 06/20/24 Unknown Rx capsule carboxymethylcellulose sodium 1 % 1 drp ophthalmic (ey e) BID 06/26/24 Unknown History eye drops (Artificial Tears (carboxymethylcellulose)) Allergy/AdvReac Type Severity Reaction Status Date / Time latex Allergy Unknown unknown Verified 06/27/24 00:50 carisoprodol Allergy Other Verified 06/27/24 00:50 itraconazole Allergy Other Verified 06/27/24 00:50 COVID-19 (SARS-CoV-2) AdvReac Other Verified 06/27/24 00:50 vaccine, jeanie Family History Mother CVA (cerebral vascular accident) Sister Hypertension Surgical History History of coronary artery stent placement History of left heart catheterization (07/02/19) History of angioplasty of peripheral vessel (10/23/13) History of coronary artery stent placement (10/07/15) History of back surgery History of shoulder surgery History of hernia repair History of tonsillectomy History of prostatectomy Social History housing: retirement Smoking Status: Never smoker alcohol intake: never substance use type: does not use caffeine: Yes Type: tea what type of physical activity do you participate in: none seatbelt use: always do you feel safe at home: Yes ROS ROS Narrative For review of systems was not possible due to patient's chronic dementia. Physical Exam Const alert, no apparent distress and average body habitus Constitutional Narrative: Patient is confused and is chronically ill appearance. General Appearance: cooperative Orientation / Consciousness: confused HEENT normocephalic, head/scalp atraumatic and hearing grossly normal bilaterally HEENT Narrative: Mucous membranes dry. Eyes PERRL, EOMs intact bilaterally and conjunctivae normal Neck no lymphadenopathy, supple and no JVD Resp normal respiratory effort, no retractions, no use of accessory muscles and clear to auscultation bilaterally Cardio regular rate and regular rhythm GI normal to inspection, nondistended, normoactive bowel sounds, soft to palpation, non-tender and non-distended Extremity no clubbing, cyanosis or edema Skin Skin Narrative: Right and Left lower extremities are TIFFANIE wrapped at this time. Patient has no evidence of rash. Neuro CN's II-XII intact bilaterally, moves all extremities and no focal motor deficits Sensorium / Orientation: awake, alert, oriented to person and oriented to place Speech: speech normal Psych affect normal Medical Records Data Medical Nutrition Assessment Dietitian: Malnutrition Criteria Met Start: 06/27/24 15:38 Freq: Status: Active Protocol: Document 06/27/24 15:39 RMA (Rec: 06/27/24 15:39 RMA [id number]) Nutrition Malnutrition Evidence of Yes Malnutrition Exists Malnutrition (severe Chronic ): Evidenced By Suboptimal Energy Intake (Severe),Weight Loss (Severe) Clinical Problem Chronic Disease or Condition Related Malnutrition Etiology severe protein-calorie malnutrition in the context of chronic disease and debility related to advanced age, dementia and inadequate oral/energy intake Signs/Symptoms as evidenced by PO meeting less than 75% estimated nutrition needs x 6 months, unintentional weight loss ~ 10% x 4-6 months and BMI 19.6 Status Active Problem Recommendation Dietitian Continue liberalized regular diet given advanced age Recommendations/ and signs/symptoms of malnutrition. Changes Will add 120mL ensure plus HP w/ meals for tolerance. Lab / Micro Data 06/27/24 05:48 06/27/24 05:48 Labs: Laboratory Results - last 24 hr 06/27/24 00:58: WBC 8.7, RBC 2.88 L, Hgb 8.8 L, Hct 27.2 L, MCV 94.4 H D, MCH 30.6, MCHC 32.4 D, RDW Std Deviation 65.7 H, RDW Coeff of Ayesha 19.5 H, Plt Count 307, MPV 10.0, Immature Gran % (Auto) 0.500, Neut % (Auto) 70.8 H, Lymph % (Auto) 12.2 L, [place] % (Auto) 13.2 H, Eos % (Auto) 2.6, Baso % (Auto) 0.7, Absolute Neuts (auto) 6.2, Absolute Lymphs (auto) 1.06, Nucleated RBC % 0.2, Differential Comment SCANNED, Platelet Estimate ADEQUATE, Polychromasia 1+, Anisocytosis 2+, PT 14.7, INR 1.1, APTT 27.5, Sodium 145, Potassium 4.0, Chloride 107, Carbon Dioxide 25.9, Anion Gap 12, BUN 53 H, Creatinine 1.25 H, E stim Creat Clear Calc 37.51 L, Est GFR (MDRD) Non-Af 55 L, BUN/Creatinine Ratio 42.1 H, Glucose 104 H, Calcium 8.9, Magnesium 1.9, Total Bilirubin 0.37, AST 41 H, ALT 15, Alkaline Phosphatase 71, Total Protein 5.4 L, Albumin 2.4 L, Globulin 3.0, Albumin/Globulin Ratio 0.8 L 06/27/24 01:10: Lactic Acid 2.0 06/27/24 05:48: WBC 7.4, RBC 2.70 L, Hgb 8.3 L, Hct 26.0 L, MCV 96.3 H, MCH 30.7, MCHC 31.9 L, RDW Std Deviation 68.1 H, RDW Coeff of Ayesha 19.6 H, Plt Count 294, MPV 9.8, Immature Gran % (Auto) 0.900, Neut % (Auto) 72.1 H, Lymph % (Auto) 12.0 L, [place] % (Auto) 11.2 H, Eos % (Auto) 3.1, Baso % (Auto) 0.7, Absolute Neuts (auto) 5.4, Absolute Lymphs (auto) 0.89, Nucleated RBC % 0.4, Differential Comment SCANNED, Platelet Estimate ADEQUATE, Polychromasia 1+, Anisocytosis 2+, Sodium 148 H, Potassium 4.0, Chloride 112 H, Carbon Dioxide 25.0, Anion Gap 11, BUN 48 H, Creatinine 1.22 H, Estim Creat Clear Calc 35.94 L, Est GFR (MDRD) Non- Af 57 L, BUN/Creatinine Ratio 39.3 H, Glucose 98, Calcium 8.5, Phosphorus 3.8, Total Bilirubin 0.36, AST 36, ALT 20, Alkaline Phosphatase 69, Total Protein 5.1 L, Albumin 2.4 L, Globulin 2.7, Albumin/Globulin Ratio 0.9, TSH 0.620 Imaging Radiology Impression Abdomen/Pelvis CTA 06/27/24 02:09 IMPRESSION: Diverticulosis without diverticulitis. No obvious active extravasation of contrast identified at this time to suggest active GI bleed. Circumferential appearing curvilinear high density at the lower rectum is again noted, unchanged. Asymmetric decreased left renal nephrogram and asymmetric left renal scarring, atrophy with note of a focal high-grade near occlusive appearing narrowing of the origin of the left renal artery for example coronal 56 with contrast seen beyond. Recommend vascular consult. Small right and trace left pleural effusions with partial passive collapse, atelectasis at the right base. One or more dose reduction techniques were used (e.g., Automated exposure control, adjustment of the mA and/or kV according to patient size, use of iterative reconstruction technique). Reading Location: [facility] Assessment & Plan Assessment/Plan (1) LGI bleed: (2) BRBPR (bright red blood per rectum): (3) Adverse drug reaction: QUALIFIERS: Encounter type: initial encounter Qualified Code(s): T50.905A - Adverse effect of unspecified drugs, medicaments and biological substances, initial encounter (4) Acute cystitis without hematuria: (5) Peripheral arterial occlusive disease: (6) Foot ulcer, right: QUALIFIERS: Non-pressure ulcer stage: with fat layer exposed Q ualified Code(s): L97.512 - Non-pressure chronic ulcer of other part of right foot with fat layer exposed (7) Dementia: QUALIFIERS: Dementia type: unspecified type Dementia severity: u nspecified severity Dementia behavioral or psychological symptom: without behavioral, psychotic, or mood disturbance or anxiety Qualified Code(s): F03.90 - Unspecified dementia, unspecified severity, without behavioral disturbance, psychotic disturbance, mood disturbance, and anxiety PLAN: Plan LGIB with BRBPR; recurrent with history of LGIB (06/2022); with colonoscopy done here by myself that revealed medium-sized angiodysplastic lesion in the cecum and CT evidence of asymmetric rectal wall thickening which may represent hemorrhoids, but a mass cannot be excluded with colonic diverticulosis . Findings from his colonoscopy: The perianal and digital rectal examinations were normal. Multiple small and large-mouthed diverticula were found in the entire colon. Moderate rectal prolapse was present. A 7 mm polyp was found in the hepatic flexure. The polyp was sessile. The polyp was removed with a jumbo cold forceps. Resection and retrieval were complete. Verification of patient identification for the specimen was done. Estimated blood loss was minimal. Two sessile polyps were found in the ascending colon. The polyps were 1 to 2 mm in size. These polyps were removed with a hot snare. Resection and retrieval were complete. Verification of patient identification for the specimen was done. Estimated blood loss was minimal. Three medium-sized localized angiodysplastic lesions with bleeding were found in the rectum, at the hepatic flexure and in the cecum. Coagulation for hemostasis using heater probe was successful. Estimated blood loss was minimal. Impression: - Diverticulosis in the entire examined colon. - Rectal prolapse. - One 7 mm polyp at the hepatic flexure, removed with a jumbo cold forceps. Resected and retrieved. - Two 1 to 2 mm polyps in the ascending colon, removed with a hot snare. Resected and retrieved. - Three bleeding colonic angiodysplastic lesions. Treated with a heater probe. Recommendation: - Resume regular diet today. - Continue present medications. - Await pathology results. - Repeat colonoscopy in 1 year for surveillance He is back now with recurrent GI bleeding likely from the upper GI tract. Patient's family deciding whether they want him to undergo an upper endoscopy. I do not think he needs another colonoscopy at this time. Awaiting family decision on hospice. Charges/Coding Visit Charges Inpatient E&M: 94679 Init Hosp L3
[2024-06-27 21:00] VITALS: BP 162/54; PULSE 61; RESP 16; TEMP 36.6; O2SAT 96
[2024-06-27] MEDS: CARBOXYMETHYLCELLULOSE SODIUM 1 DRP DROPS OPHTHALMIC (21:16)
[2024-06-28] MEDS: Pantoprazole Sodium 80 MG in 0.9% Normal Saline (100mL Bag) 80 ML 10 MG CONT INF (01:43)
[2024-06-28 03:23] VITALS: BP 140/48; PULSE 64; RESP 15; TEMP 36.9; O2SAT 94
[2024-06-28 03:40] VITALS: BMI 19.4
[2024-06-28 07:53] LABS: Absolute Lymphocyte Count 0.81 X10^3/uL (0.83-4.51); Absolute Neutrophil Count 7.2 X10^3/uL (2.0-7.7); Basophil# 0.06 X10^3/uL; Basophil% 0.6 % (0-1); Eosinophil# 0.23 X10^3/uL; Eosinophils% 2.4 % (0-5); Hematocrit 26.7 % (40-54); Hemoglobin 8.3 g/dL (13.0-16.5); Lymphocyte # 0.81 X10^3/ul (0.83-4.51); Lymphocyte % 8.6 % (19-41); Mean Corp Hgb Conc 31.1 g/dL (32-36); Mean Corpuscular Hgb 31.1 pg (27.0-32.0); Mean Platelet Vol. 9.6 fl (6.2-12.0); Monocyte# 0.98 X10^3/uL; Monocyte% 10.4 % (0-10); NRBC Flagged by Analyzer 0.7 % (0-5); Neutrophil # 7.23 X10^3/uL (2.7-7.7); Neutrophil % 76.5 % (47-70); POSITIVE MORPHOLOGY YES; Platelet Count 314 K/mm3 (150-450); RBC Distribution Width CV 18.9 % (11.6-14.6); RBC Distribution Width SD 68.2 fl (35.1-43.9); Red Blood Count 2.67 M/mm3 (4.6-6.2); White Blood Count 9.5 K/mm3 (4.4-11.0)
[2024-06-28 08:07] LABS: Differential Indicated SCAN CRITERIA MET
[2024-06-28 08:26] LABS: Anion Gap 12 (5-15); BUN 31 mg/dL (4-19); BUN/Creat Ratio 27.5 RATIO (10-20); Calcium,Total 8.8 mg/dL (7.6-11.0); Carbon Dioxide 23.5 mmol/L (21.0-32.0); Chloride 115 mmol/L (98-108); Creatinine, Serum 1.14 mg/dL (0.70-1.20); EST Glomerular Filtration Rate 61 (>60); Estimated Creatinine Clearance 38.21 ml/min (50-250); Glucose 96 mg/dL (70-99); Potassium 3.9 mmol/L (3.3-5.1); Sodium Level 150 mmol/L (133-145)
[2024-06-28 09:04] VITALS: BP 168/56; PULSE 69; RESP 18; TEMP 36.4; O2SAT 97
[2024-06-28] MEDS: Doxycycline 100 MG in 0.9% Normal Saline (250mL Bag) 250 ML 250 MG IV (09:09)
[2024-06-28] MEDS: CARBOXYMETHYLCELLULOSE SODIUM 1 DRP DROPS OPHTHALMIC (09:12)
[2024-06-28] MEDS: Dextrose 5%-Water (1000mL Bag) 1,000 ML 60 ML IV (10:38)
--- NOTE | 2024-06-28 11:36 | CASEMGMT ---
Patient and family signed up with hospice. SW notified physician. Lanny Harley [employer]
--- NOTE | 2024-06-28 12:21 | CASEMGMT ---
Discharge Planning Updates sent to [facility] with note that pt will return today with hospice services. Love Patricio DC Planning Asst.
--- NOTE | 2024-06-28 12:43 | TREXTCAR_ITS ---
Diet Diet Order/Speech Therapy: 06/27/24 15:19 Diet: Regular - General Type of Dietary Supplement:: Ensure Plus High Protein Diet Comments: 120mL ensure plus HP w/ meals Routine Orders/Code Status Code Status: DNRCC DC O2, CPAP, BIPAP needs Home O2 Discharge instructions: No Wound(s) right moser: Wound Type: scabs coccyx: Wound Type: Pressure Injury left great toe/third toe: Wound Type: dry scabbed over wounds right ankle: Wound Type: Stasis Ulcer right lateral ankle: Wound Type: neuropathic/probable pressure component Dressing Change: betadine Adaptic right great and 2nd toes: Wound Type: dry scabbed over wounds Dressing Change: dry dressings Problem/Diagnosis (1) LGI bleed: Status: Resolved Code(s): K92.2 - Gastrointestinal hemorrhage, unspecified (2) BRBPR (bright red blood per rectum): Status: Resolved Code(s): K62.5 - Hemorrhage of anus and rectum (3) Adverse drug reaction: Status: Resolved Code(s): T50.905A - Adverse effect of unspecified drugs, medicaments and biological substances, initial encounter (4) Acute cystitis without hematuria: Status: Resolved Code(s): N30.00 - Acute cystitis without hematuria (5) Peripheral arterial occlusive disease: Status: Inactive Code(s): I77.9 - Disorder of arteries and arterioles, unspecified Comment: SFA PTCA/Stent 08/2012; Stent to distal RSFA to popliteal, Stent-Prox RSFA 10/23/13; Multiple angioplasty and stenting on 03/22/[address] Benja Ricketts; (6) Foot ulcer, right: Status: Resolved Code(s): L97.519 - Non-pressure chronic ulcer of other part of right foot with unspecified severity (7) Dementia: Status: Inactive Code(s): F03.90 - Unspecified dementia, unspecified severity, without behavioral disturbance, psychotic disturbance, mood disturbance, and anxiety Allergies/Procedures Done in Hospital Allergies latex Allergy (Unknown, Verified 06/27/24 00:50) unknown carisoprodol Allergy (Verified 06/27/24 00:50) Other itraconazole Allergy (Verified 06/27/24 00:50) Other COVID-19 (SARS-CoV-2) vaccine, jeanie Adverse Reaction (Verified 06/27/24 00:50) Other Procedures: None Type of Care/Length of Stay Estimated LOS: More Than 30 Days Type of Care Needed: Inpt Hospice Facility Rehab Potential: Poor Prognosis: Poor Additional Orders/Day of Discharge Day of Discharge: 06/28/24 Dietary and Speech Recommendations Dietitian Recommendations/Changes: Continue liberalized regular diet given advanced age and signs/symptoms of malnutrition. Will add 120mL ensure plus HP w/ meals for tolerance. Discharge Plan Admission Admit Date/Time: 06/27/24 03:58 Attending Provider: Moody Sadler Primary Care Provider: Dennys Manley Consulting Providers: Remy Macias; Remy Wolfe; Damaris Landin; Nancy Rogers; Akanksha Morales; Kecia Blandon SOCIAL MEDIA DEVELOPER; Yvrose Souza Discharge Orders/Prescriptions Prescriptions: Continued duloxetine 30 mg capsule,delayed release(DR/EC) 30 mg PO DAILY (DME) Motorized wheelchair See Rx Instructions .Route .MEDSUPPLY Qty: 1 0RF Rx Instructions: As directed memantine 28 mg capsule,sprinkle,ER 24hr 28 mg PO DAILY Qty: 30 6RF Rx Instructions: Week #4 and thereafter mirtazapine 30 mg Tablet 15 mg PO QHS furosemide [Lasix] 40 mg tablet 20 mg PO DAILY potassium chloride 10 mEq tablet,ER particles/crystals 40 meq PO DAILY doxycycline monohydrate 100 mg Capsule 100 mg PO BID 38 Days Qty: 76 0RF acetaminophen 500 mg Tablet 1,000 mg PO TID PRN (Reason: LOWER BACK PAIN) 30 Days Qty: 0 0RF lisinopril 5 mg tablet 5 mg PO DAILY amiodarone 200 mg tablet 200 mg PO DAILY aspirin 81 mg tablet,delayed release (DR/EC) 81 mg PO DAILY fluorometholone 0.1 % drops,suspension 1 drp ophthalmic (eye) Q12H Rx Instructions: both eyes metoprolol tartrate 100 mg tablet 150 mg PO Q12H pantoprazole 40 mg tablet,delayed release (DR/EC) 40 mg PO DAILY Artificial Tears (cmc) 1 % drops 1 drp ophthalmic (eye) BID atorvastatin 20 mg tablet 20 mg PO QHS Qty: 90 3RF isosorbide mononitrate 60 mg tablet extended release 24 hr 60 mg PO DAILY Qty: 30 11RF Discontinued clopidogrel 75 mg tablet 75 mg PO DAILY Referrals / Follow Up: Dennys Manley MD [Primary Care Provider] - Disposition Disposition (needs filled in before D/C Order can be placed): Hospice in Medical Facility (3) Adverse drug reaction Qualifiers: Encounter type: initial encounter Qualified Code(s): T50.905A - Adverse effect of unspecified drugs, medicaments and biological substances, initial encounter (6) Foot ulcer, right Qualifiers: Non-pressure ulcer stage: with fat layer exposed Qualified Code(s): L97.512 - Non-pressure chronic ulcer of other part of right foot with fat layer exposed (7) Dementia Qualifiers: Dementia type: unspecified type Dementia severity: unspecified severity Dementia behavioral or psychological symptom: without behavioral, psychotic, or mood disturbance or anxiety Qualified Code(s): F03.90 - Unspecified dementia, unspecified severity, without behavioral disturbance, psychotic disturbance, mood disturbance, and anxiety
--- NOTE | 2024-06-28 13:03 | WOUNDNOTE ---
Pt being discharged with hospice. will leave dressing in place since they will assess wounds.
--- NOTE | 2024-06-28 13:03 | PCM.DC.SUM ---
Providers Date of Admission: 06/27/24 Primary Care Physician: Dr. Dennys Manley MD Consultations 06/27/24 04:59 Consult: Gastroenterology Routine Consulting Provider: [facility] Reason for Consult: LGIB with BRBPR 2/2 ADR to BASA and Plavix - Recurrent. EMERGENT Consult: No Notified: Yes Date Notified: 06/27/24 Time Notified: 04:01 Method of Notification: ED Physician Initiated Consult: Hospice / Palliative Care Routine Consulting Provider: [facility] Reason for Consult: Recurrent LGIB and Dementia. EMERGENT Consult: No Notified: Yes Date Notified: 06/27/24 Time Notified: 15:20 Method of Notification: Answering Service 06/27/24 08:45 Consult: Onc/Wound/transmission and coordination engineer Routine Comment: Reason For Visit: LGIB WITH BRBPR 2/2 ADVERSE DRUG REACTION TO BE Diagnosis Discharge Diagnosis (1) LGI bleed: Status: Resolved Code(s): K92.2 - Gastrointestinal hemorrhage, unspecified (2) BRBPR (bright red blood per rectum): Status: Resolved Code(s): K62.5 - Hemorrhage of anus and rectum (3) Adverse drug reaction: Status: Resolved Code(s): T50.905A - Adverse effect of unspecified drugs, medicaments and biological substances, initial encounter Qualifiers: Encounter type: initial encounter Qualified Code(s): T50.905A - Adverse effect of unspecified drugs, medicaments and biological substances, initial encounter (4) Acute cystitis without hematuria: Status: Resolved Code(s): N30.00 - Acute cystitis without hematuria (5) Peripheral arterial occlusive disease: Status: Inactive Code(s): I77.9 - Disorder of arteries and arterioles, unspecified (6) Foot ulcer, right: Status: Resolved Code(s): L97.519 - Non-pressure chronic ulcer of other part of right foot with unspecified severity Qualifiers: Non-pressure ulcer stage: with fat layer exposed Qualified Code(s): L97.512 - Non-pressure chronic ulcer of other part of right foot with fat layer exposed (7) Dementia: Status: Inactive Code(s): F03.90 - Unspecified dementia, unspecified severity, without behavioral disturbance, psychotic disturbance, mood disturbance, and anxiety Qualifiers: Dementia type: unspecified type Dementia severity: unspecified severity Dementia behavioral or psychological symptom: without behavioral, psychotic, or mood disturbance or anxiety Qualified Code(s): F03.90 - Unspecified dementia, unspecified severity, without behavioral disturbance, psychotic disturbance, mood disturbance, and anxiety Medications at Discharge Home Medications duloxetine 30 mg capsule,delayed release 30 mg PO DAILY DEPRESSION 03/06/19 atorvastatin 20 mg tablet 20 mg PO QHS CHOLESTEROL #90 tabs 06/10/19 Motorized wheelchair #1 ea 06/29/22 furosemide 40 mg tablet (Lasix) 20 mg PO DAILY FLUID 06/30/22 mirtazapine 30 mg tablet 15 mg PO QHS DEPRESSION 06/30/22 potassium chloride 10 mEq tablet,extended release(part/cryst) 40 meq PO DAILY SUPPLEMENT 06/30/22 isosorbide mononitrate 60 mg tablet,extended release 24 hr 60 mg PO DAILY #30 tabs 04/20/23 memantine 28 mg capsule sprinkle,extended release 24hr 28 mg PO DAILY #30 ea 05/16/23 lisinopril 5 mg tablet 5 mg PO DAILY 03/08/24 amiodarone 200 mg tablet 200 mg PO DAILY 04/28/24 aspirin 81 mg tablet,delayed release 81 mg PO DAILY 04/28/24 fluorometholone 0.1 % eye drops,suspension 1 drp ophthalmic (eye) Q12H 04/28/24 metoprolol tartrate 100 mg tablet 150 mg PO Q12H 04/28/24 pantoprazole 40 mg tablet,delayed release 40 mg PO DAILY 04/28/24 acetaminophen 500 mg tablet 1,000 mg (2 x 500 mg) PO TID PRN LOWER BACK PAIN 30 days #0 tabs 06/20/24 doxycycline monohydrate 100 mg capsule 100 mg PO BID 38 days #76 caps 06/20/24 carboxymethylcellulose sodium 1 % eye drops (Artificial Tears (carboxymethylcellulose)) 1 drp ophthalmic (eye) BID 06/26/24 Hospital Course Operations None Procedures None Summary of Care Provided Minutes Spent on Discharge: 35 Hospital Course: Per HPI: FEI ANIRUDH, is a 88 M with a past medical history of essential hypertension; on lisinopril, metoprolol and furosemide, hyperlipidemia; on atorvastatin, CAD; s/p NSTEMI with multiple subsequent stents on ISMO on BASA and clopidogrel, history of atrial fibrillation (2020); not on anticoagulation, history of arrhythmia; s/p PPM, history of RBBB, severe PAD; s/p stent (2013) with history of chronic ulcers on both feet, history of LGIB (06/2022), history of rectal prolapse, ZEYNEP, SCOTT, peripheral neuropathy, history of mild cognitive impairment with hallucinations; on memantine, history of depression; on duloxetine and mirtazapine, history of prostate cancer; s/p prostatectomy, history of UTI, history of septic shock, GERD, history of COVID-19 (2019), history of hernia repair, OA; with stenosis of lumbar spine plus DDD; s/p back surgery with chronic back pain along with chronic debility and gait disorder, DNR-CCA; without intubation CODE STATUS and recent admission here from June 12, 2024 to June 20, 2024 with diagnosis of LGIB with BRBPR on BASA and clopidogrel with subsequent colonoscopy by Dr. Smith of gastroenterology on June 13, 2024 that showed polyps in ascending colon removed with hot snare, large polyp in hepatic flexure that was removed and diverticulosis with rectal prolapse and 3 bleeding angiodysplastic lesions that were treated with heater probe with hemoglobin remaining stable in the ~9-10 g/dL range during the rest of the admission complicated by Right ankle osteomyelitis; s/p debridement on June 17, 2024 with wound culture growing MSSA treated with Ancef and discharged on oral doxycycline twice daily for 6 weeks with stop date on July 31, 2024 who currently resides at [facility] presents to [facility] ER complaining of recurrent LGIB with BRBPR. Mr. Chandler is not a reliable historian at this time so information was taken from chart, medical staff and computer. According to the records he actually came to this ER last night for recurrent LGIB and was found to be anemic with a hemoglobin of 7.3 g/dL and received 2 units of PRBC's and was then discharged back to his facility. He apparently arrived back at the facility at approximately 5 PM and then promptly had another episode of LGIB with BRBPR at 6:10 PM and was sent back to the ER for further evaluation and treatment. There was no report of fever, chills, nausea, vomiting, abdominal pain, chest pain, shortness of breath or headache. In the ER he was diagnosed with recurrent LGIB with BRBPR likely due to Adverse Drug Reaction to dual-antiplatelet therapy with BASA and clopidogrel with hemoglobin of 8.8 g/dL with elevated BUN of 53 mg/dL with normal serum creatinine of 1.25 mg/dL suggestive of additional possible upper GI source present on admission complicated by CT evidence of asymmetric decreased Left renal nephrogram and asymmetric Left renal scarring, atrophy with no evidence of a focal high-grade near occlusive appearing narrowing of the origin of the Left renal artery with vascular consult recommended - in addition to diverticulosis without diverticulitis and no obvious active extravasation of contrast identified to identify active GI bleed with circumferential appearing curvilinear high density at the lower rectum, unchanged from previous. I discussed this case at some length with the ER physician with both of us agree and patient may benefit from palliative care consultation given his recurrent LGIB and essentially untreatable Left renal artery stenosis with palliative care consultation pending in the a.m. He was then admitted to the PCU for ongoing care for a stay that is expected to extend beyond 2 midnights. Hospital course: 1. 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 He had been recently admitted to the hospital at the end of May into June with a GI bleed and was found to have AVMs. These were treated in the colon with cautery and he was [facility]. At that time he also had right ankle osteomyelitis and was discharged on doxycycline for 38 days. He presented back to the ER on 06/26/2024 and was given 2 units of PRBCs and sent back to the [facility] but then he presented back with recurrent GI bleeding at 1 AM on 06/27/2024 and was ultimately admitted. Given his history with renal artery stenosis as well as his age and recurrent GI bleeds from sources (AVMs) that cannot be prevented or mitigated the discussion was had with family on hospice care and advance care planning. They elected to proceed with hospice and signed paperwork on 06/28/2024. He had been started on Protonix drip which I do think is partly the reason why his sodium went up to 150+ his Lasix had been held. Renal function is improved and hemoglobin is actually stabilized at 8.3 so it is possible that the bleed that brought him into the hospital has resolved itself. Yesterday after admission he was not very alert however today he was communicative and was in agreement with the plan for hospice at the [facility]. 2. Essential hypertension, hyperlipidemia, coronary artery disease status post stent, A-fib, GERD, iron deficiency anemia, anxiety, depression are all chronic medical conditions which complicate his care. His home medications were continued where appropriate Physical Exam Narrative General: Alert, Oriented x3, Cooperative, No apparent distress HEENT: Atraumatic, PERRLA, EOMI, Normocephalic Oral: Moist Mucosa Neck: Supple, No JVD Lungs: Diminished, Normal air movement, No rhonchi, No wheeze, No rales Cardiovascular: Regular rate, Regular Rhythm, Normal S1, Normal S2, No murmurs Abdomen: Soft, Non Tender, Non-Distended, No Hepato-splenomegaly Extremities: No edema, Capillary Refill Less than 3 Seconds Skin: No rashes, No breakdown, pale Musculoskeletal: No Tenderness to Palpation of Joints or Extremities Neurological: No focal neurological deficits, moves all extremities Psych/Mental Status: Normal Affect, Appropriate Medical Records Data Medical Nutrition Assessment Dietitian: Malnutrition Criteria Met Start: 06/27/24 15:38 Freq: Status: Active Protocol: Document 06/27/24 15:39 RMA (Rec: 06/27/24 15:39 RMA [id number]) Nutrition Malnutrition Evidence of Yes Malnutrition Exists Malnutrition (severe Chronic ): Evidenced By Suboptimal Energy Intake (Severe),Weight Loss (Severe) Clinical Problem Chronic Disease or Condition Related Malnutrition Etiology severe protein-calorie malnutrition in the context of chronic disease and debility related to advanced age, dementia and inadequate oral/energy intake Signs/Symptoms as evidenced by PO meeting less than 75% estimated nutrition needs x 6 months, unintentional weight loss ~ 10% x 4-6 months and BMI 19.6 Status Active Problem Recommendation Dietitian Continue liberalized regular diet given advanced age Recommendations/ and signs/symptoms of malnutrition. Changes Will add 120mL ensure plus HP w/ meals for tolerance. Weight / BMI Weight Weight: 135 lb 9.349 oz Body Mass Index (BMI) 19.4 ABG / Lab / Microbiology Data 06/28/24 07:18 06/28/24 07:18 Laboratory: Laboratory Results - last 24 hr 06/28/24 07:18: WBC 9.5, RBC 2.67 L, Hgb 8.3 L, Hct 26.7 L, MCV 100.0 H, MCH 31.1, MCHC 31.1 L, RDW Std Deviation 68.2 H, RDW Coeff of Ayesha 18.9 H, Plt Count 314, MPV 9.6, Immature Gran % (Auto) 1.500 H, Neut % (Auto) 76.5 H, Lymph % (Auto) 8.6 L, [place] % (Auto) 10.4 H, Eos % (Auto) 2.4, Baso % (Auto) 0.6, Absolute Neuts (auto) 7.2, Absolute Lymphs (auto) 0.81 L, Nucleated RBC % 0.7, Differential Comment , Sodium 150 H, Potassium 3.9, Chloride 115 H, Carbon Dioxide 23.5, Anion Gap 12, BUN 31 H, Creatinine 1.14, Estim Creat Clear Calc 38.21 L, Est GFR (MDRD) Non-Af 61, BUN/Creatinine Ratio 27.5 H, Glucose 96, Calcium 8.8 D/C Instructions DC O2, CPAP, BIPAP Needs Home O2 Discharge instructions: No Meaningful Use Info Meaningful Use Meaningful Use Diagnoses (Choose all that apply): None applicable Ischemic Stroke Statin Dosing Therapy Reference: STATIN DOSE THERAPY REFERENCE: * Patients > 75 years receive moderate or high dose statin therapy. * Patients 75 years or YOUNGER should receive HIGH intensity statin dose unless contraindicated. You will be required to document reason for non-treatment if statin daily dose does not meet guidelines. HIGH DOSE STATIN THERAPY DAILY Atorvastatin > than or = to 40 mg Rosuvastatin > than or = to 20 mg Amlodipine + Atorvastatin > than or = to 2.5/40 mg Ezetimibe + Simvastatin 10/80 mg Simvastatin 80mg Discharge Plan Admission Admit Date/Time: 06/27/24 03:58 Attending Provider: Moody Sadler Primary Care Provider: Dennys Manley Consulting Providers: Remy Macias; Remy Wolfe; Damaris Landin; Nancy Rogers; Akanksha Morales; Kecia Blandon NP; Yvrose Souza Discharge Orders/Prescriptions Prescriptions: Continued duloxetine 30 mg capsule,delayed release(DR/EC) 30 mg PO DAILY (DME) Motorized wheelchair See Rx Instructions .Route .MEDSUPPLY Qty: 1 0RF Rx Instructions: As directed memantine 28 mg capsule,sprinkle,ER 24hr 28 mg PO DAILY Qty: 30 6RF Rx Instructions: Week #4 and thereafter mirtazapine 30 mg Tablet 15 mg PO QHS furosemide [Lasix] 40 mg tablet 20 mg PO DAILY potassium chloride 10 mEq tablet,ER particles/crystals 40 meq PO DAILY doxycycline monohydrate 100 mg Capsule 100 mg PO BID 38 Days Qty: 76 0RF acetaminophen 500 mg Tablet 1,000 mg PO TID PRN (Reason: LOWER BACK PAIN) 30 Days Qty: 0 0RF lisinopril 5 mg tablet 5 mg PO DAILY amiodarone 200 mg tablet 200 mg PO DAILY aspirin 81 mg tablet,delayed release (DR/EC) 81 mg PO DAILY fluorometholone 0.1 % drops,suspension 1 drp ophthalmic (eye) Q12H Rx Instructions: both eyes metoprolol tartrate 100 mg tablet 150 mg PO Q12H pantoprazole 40 mg tablet,delayed release (DR/EC) 40 mg PO DAILY Artificial Tears (cmc) 1 % drops 1 drp ophthalmic (eye) BID atorvastatin 20 mg tablet 20 mg PO QHS Qty: 90 3RF isosorbide mononitrate 60 mg tablet extended release 24 hr 60 mg PO DAILY Qty: 30 11RF Discontinued clopidogrel 75 mg tablet 75 mg PO DAILY Referrals / Follow Up: Dennys Manley MD [Primary Care Provider] - Disposition Disposition (needs filled in before D/C Order can be placed): Hospice in Medical Facility Charges/Coding Visit Charges Inpatient E&M: 71433 Disch Hosp >30min
--- NOTE | 2024-06-28 13:37 | CASEMGMT ---
Patient is discharging back to [facility] on [facility]. Transport was set up for 3p. SW called Hospice and spoke with Oliva on referral line letting her know that patient will be picked up at 3p. Plan: d/c back to [facility] under intermediate level of care on [facility]. Lanny Harley CONCRETE BLOCK PLANT SUPERVISOR [employer]
--- NOTE | 2024-06-28 14:27 | CASEMGMT ---
Discharge Planning Discharge orders, signed med list, and transport time sent to [facility]. Physicians will transport pt by cot at 3p. Nursing, SW, pt, and his daughter (Rene) updated. Rene will update her brother (Wesley). Love Patricio DC Planning Asst.
--- NOTE | 2024-06-28 14:46 | CASEMGMT ---
SW received a call from Hospice and they will have a nurse at [facility] between 530 and 6 to finish up his admission. SW notified [facility] via [employer]. Lanny Harley HYDROCRANE OPERATOR [employer]
[2024-06-28 15:00] VITALS: BP 134/63; PULSE 76; RESP 16; TEMP 36.7; O2SAT 98
--- NOTE | 2024-06-28 15:51 | CHAPLAIN ---
Type of Pastoral Visit _x__ Initial Visit ___ Follow-up Visit ___ On-call Visit ___ General Patient Visit ___ Spiritual Assessment ___ Family Conference ___ Bereavement ___ Rapid Response ___ Code Blue ___ Other (describe below) Pastoral Care Referral From _x__ Patient _x__ Family ___ Nurse ___ Physician ___ Dump Operator ___ Liquor Bridge Operator Helper ___ Other (describe below) Sacrament/Intervention _x__ Active listening ___ Anointing ___ Temple ___ Bereavement ___ Communion _x__ Geraldine exploration ___ ___ Life review _x__ Prayer ___ Reconciliation ___ Sacrament of Sick _x__ Supportive presence ___ Wedding ___ Other (describe below) Pastoral Comments patient is alert; son is at bedside; a daughter walked in later; hospice has been consulted and the patient/family have agreed to undergo hospice care, but hopefully from the shelter where the patient has been; asked open questions to see how the patient is processing and feeling about the plan and about his own spiritual and mental health; pt is thinking that it will be a positive experience to have hospice help; pt is member of the [employer] but more recently has connected with the [employer]; pt is welcoming of a prayer; family members are also asked about their needs or concerns; it was a good discussion to clarify the plan going forward
== END 2024-06-28 15:50 | disposition hospice, inpatient (51) | DRG 377 ==
LOC: ED 04:12 → PCU 04:29
PROVIDERS: Admitting Provider Internal Medicine; Emergency Provider Emergency Medicine; PCP Internal Medicine; Visit Provider Family Medicine
DX: K92.2 Gastrointestinal hemorrhage, unspecified (principal); E43 Unspecified severe protein-calorie malnutrition; D62 Acute posthemorrhagic anemia; N30.00 Acute cystitis without hematuria; Z68.1 Body mass index [BMI] 19.9 or less, adult; E13.42 Other specified diabetes mellitus with diabetic polyneuropathy; D50.9 Iron deficiency anemia, unspecified; E13.51 Other specified diabetes mellitus with diabetic peripheral angiopathy without gangrene; E13.59 Other specified diabetes mellitus with other circulatory complications; Z66 Do not resuscitate; Z51.5 Encounter for palliative care; I48.91 Unspecified atrial fibrillation; F03.90 Unspecified dementia, unspecified severity, without behavioral disturbance, psychotic disturbance, mood disturbance, and anxiety; I10 Essential (primary) hypertension; I70.1 Atherosclerosis of renal artery; F32.A Depression, unspecified; E13.621 Other specified diabetes mellitus with foot ulcer; L97.512 Non-pressure chronic ulcer of other part of right foot with fat layer exposed; K57.30 Diverticulosis of large intestine without perforation or abscess without bleeding; I25.10 Atherosclerotic heart disease of native coronary artery without angina pectoris; E78.5 Hyperlipidemia, unspecified; K21.9 Gastro-esophageal reflux disease without esophagitis; M48.061 Spinal stenosis, lumbar region without neurogenic claudication; F41.9 Anxiety disorder, unspecified; I73.9 Peripheral vascular disease, unspecified; I87.2 Venous insufficiency (chronic) (peripheral); I77.9 Disorder of arteries and arterioles, unspecified; G47.33 Obstructive sleep apnea (adult) (pediatric); I25.2 Old myocardial infarction; T50.905A Adverse effect of unspecified drugs, medicaments and biological substances, initial encounter; Z82.3 Family history of stroke; Z95.0 Presence of cardiac pacemaker; M51.369 Other intervertebral disc degeneration, lumbar region without mention of lumbar back pain or lower extremity pain; Z95.5 Presence of coronary angioplasty implant and graft; Z79.82 Long term (current) use of aspirin; Z86.16 Personal history of COVID-19; R53.81 Other malaise; Z87.39 Personal history of other diseases of the musculoskeletal system and connective tissue; Z99.89 Dependence on other enabling machines and devices; Z87.440 Personal history of urinary (tract) infections; Z85.46 Personal history of malignant neoplasm of prostate
CPT/HCPCS: 36415; 74174; 80048; 80053; 83605; 83735; 84100; 84443; 85025; 85610; 85730; 86850; 86900; 86901; 97802; 99285; P9016; Q9967; A4216

== ENCOUNTER → 2024-07-01 | Outpatient (REF) | payer MEDICARE, OTHER, SELFPAY ==
[2024-07-01 08:02] LABS: Absolute Lymphocyte Count 0.76 X10^3/uL (0.83-4.51); Absolute Neutrophil Count 6.3 X10^3/uL (2.0-7.7); Basophil# 0.05 X10^3/uL; Basophil% 0.6 % (0-1); Eosinophil# 0.43 X10^3/uL; Eosinophils% 5.1 % (0-5); Hematocrit 23.9 % (40-54); Hemoglobin 7.3 g/dL (13.0-16.5); Lymphocyte # 0.76 X10^3/ul (0.83-4.51); Mean Corp Hgb Conc 30.5 g/dL (32-36); Mean Corpuscular Hgb 30.9 pg (27.0-32.0); Mean Corpuscular Volume 101.3 fL (80-94); Mean Platelet Vol. 10.1 fl (6.2-12.0); Monocyte# 0.81 X10^3/uL; Monocyte% 9.6 % (0-10); NRBC Flagged by Analyzer 0.6 % (0-5); Neutrophil # 6.29 X10^3/uL (2.7-7.7); Neutrophil % 74.9 % (47-70); Platelet Count 311 K/mm3 (150-450); RBC Distribution Width CV 17.8 % (11.6-14.6); RBC Distribution Width SD 63.4 fl (35.1-43.9); Red Blood Count 2.36 M/mm3 (4.6-6.2); White Blood Count 8.4 K/mm3 (4.4-11.0)
[2024-07-01 13:23] LABS: Anion Gap 7 (5-15); BUN 24 mg/dL (4-19); BUN/Creat Ratio 18.8 RATIO (10-20); Calcium,Total 8.4 mg/dL (7.6-11.0); Carbon Dioxide 25.7 mmol/L (21.0-32.0); Chloride 110 mmol/L (98-108); Creatinine, Serum 1.28 mg/dL (0.70-1.20); EST Glomerular Filtration Rate 53 (>60); Glucose 79 mg/dL (70-99); Potassium 3.7 mmol/L (3.3-5.1); Sodium Level 143 mmol/L (133-145)
== END ==
LOC: OLS.WHLEAS 05:00
PROVIDERS: PCP Internal Medicine; Visit Provider Internal Medicine
DX: E11.51 Type 2 diabetes mellitus with diabetic peripheral angiopathy without gangrene (principal); M86.171 Other acute osteomyelitis, right ankle and foot
CPT/HCPCS: 36415; 80048; 85025